=== PATIENT | female | born 1960 | race Caucasian/White ===

== ENCOUNTER 2018-05-04 19:17 | Outpatient (REF) | payer SELFPAY ==
[2018-05-09 04:50] LABS: 2-OH-Ethyl-Flurazepam Negative ng/mL (Cutoff: 100); 7-NH-Clonazepam Negative ng/mL (Cutoff: 100); 7-NH-Flunitrazepam Negative ng/mL (Cutoff: 50); Alpha OH-Alprazolam Negative ng/mL (Cutoff: 100); Alpha-OH-Triazolam Negative ng/mL (Cutoff: 100); Benzodiazepines Interpretation Negative.; Lorazepam Negative ng/mL (Cutoff: 100); Temazepam Negative ng/mL (Cutoff: 100)
[2018-05-09 13:39] LABS: Codeine Negative ng/mL (Cutoff: 25); Dihydrocodeine 190 ng/mL (Cutoff: 25); Hydrocodone 768 ng/mL (Cutoff: 25); Hydromorphone 38 ng/mL (Cutoff: 25); Morphine 6566 ng/mL (Cutoff: 25); Naloxone Negative ng/mL (Cutoff: 25); Norhydrocodone 520 ng/mL (Cutoff: 25); Noroxymorphone Negative ng/mL (Cutoff: 25); Opiates Interpretation Positive.
[2018-05-09 16:41] LABS: Benzoylecgonine 4313 ng/mL (Cutoff: 50); Cocaine Negative ng/mL (Cutoff: 50); Cocaine Interpretation Positive.
[2018-05-10 06:48] LABS: Amphetamine 577 ng/mL (Cutoff: 25); Amphetamines Interpretation Positive.; MDA (Ecstasy Metabolite) Negative ng/mL (Cutoff: 25); MDMA (Ecstasy) Negative ng/mL (Cutoff: 25); Methamphetamine Negative ng/mL (Cutoff: 25); Phentermine Negative ng/mL (Cutoff: 25); Pseudoephedrine/Ephedrine Present ng/mL (Cutoff: 25)
== END 2018-05-04 19:37 ==
LOC: NCHCN 19:17
PROVIDERS: PCP Nurse Practitioner Family; Visit Provider Nurse Practitioner Family
DX: F90.9 Attention-deficit hyperactivity disorder, unspecified type (principal); F15.20 Other stimulant dependence, uncomplicated; F11.20 Opioid dependence, uncomplicated
CPT/HCPCS: 80324; 80361; 80346; 80353

== ENCOUNTER 2019-03-12 17:54 | Outpatient (REF) | payer SELFPAY ==
[2019-03-12 21:19] LABS: Anion Gap 12.3 mmol/L (3-11); BUN 13 mg/dL (7-18); CO2 24.7 mmol/L (21.0-32.0); CREATININE 0.91 mg/dL (0.55-1.02); Calcium 9.3 mg/dL (8.5-10.1); Chloride 100 mmol/L (98-107); Glucose 103 mg/dL (70-100); Potassium 4.3 mmol/L (3.5-5.1); Sodium 137 mmol/L (136-145)
== END 2019-03-12 18:14 ==
LOC: NCHCN 17:54
PROVIDERS: PCP Nurse Practitioner Family; Visit Provider Nurse Practitioner Family
DX: I12.9 Hypertensive chronic kidney disease with stage 1 through stage 4 chronic kidney disease, or unspecified chronic kidney disease (principal)
CPT/HCPCS: 80048

== ENCOUNTER 2019-10-31 16:25 | Outpatient (REF) | payer SELFPAY ==
[2019-10-31 20:30] LABS: ALT 48 U/L (14-59); AST 29 U/L (15-37); Albumin 4.2 g/dL (3.4-5.0); Alkaline Phosphatase 91 U/L (46-116); Anion Gap 8.1 mmol/L (3-11); BUN 12 mg/dL (7-18); Bilirubin, Total 0.3 mg/dL (0.2-1.0); CO2 26.9 mmol/L (21.0-32.0); CREATININE 1.02 mg/dL (0.55-1.02); Calcium 9.5 mg/dL (8.5-10.1); Chloride 102 mmol/L (98-107); Estimated GFR 55.66 (mL/min/1.73m2); Glucose 122 mg/dL (74-106); HDL Cholesterol 42 mg/dL (40-60); LDL CHOLESTEROL 128 mg/dL (<100); Potassium 4.9 mmol/L (3.5-5.1); Sodium 137 mmol/L (136-145); Total Protein 7.7 g/dL (6.4-8.2)
[2019-11-01 15:30] LABS: Hemoglobin A1C 6.2 % (3.8-5.6)
== END 2019-10-31 16:45 ==
LOC: NCHCN 16:25
PROVIDERS: PCP Nurse Practitioner Family; Visit Provider Nurse Practitioner Family
DX: R73.03 Prediabetes (principal); Z79.899 Other long term (current) drug therapy
CPT/HCPCS: 80053; 83721; 83036; 83718

== ENCOUNTER 2020-12-16 15:31 | Outpatient (REF) | payer SELFPAY ==
[2020-12-16 19:35] LABS: HCT 37.5 % (36.0-46.0); HGB 12.4 g/dL (11.2-15.7); MCHC 33.1 % (32.0-36.0); MCV 96.9 fL (80-95); MPV 10.3 fL (8.0-11.0); Platelet Count 274 10^3/uL (130-400); RBC 3.87 10^6/uL (3.93-5.22); RDW-SD 46.3 fL; WBC 9.17 10^3/uL (4.4-10.8)
[2020-12-16 19:45] LABS: Anion Gap 10.6 mmol/L (3-11); BUN 9 mg/dL (7-18); CO2 25.4 mmol/L (21.0-32.0); CREATININE 0.9 mg/dL (0.55-1.02); Calcium 9.1 mg/dL (8.5-10.1); Chloride 105 mmol/L (98-107); Glucose 107 mg/dL (74-106); Potassium 4.7 mmol/L (3.5-5.1); Sodium 141 mmol/L (136-145)
[2020-12-16 19:53] LABS: Hemoglobin A1C 6.8 % (<5.7)
== END 2020-12-16 15:32 | disposition home or self-care (01) ==
LOC: NCHCN 15:31
PROVIDERS: PCP Nurse Practitioner Family; Visit Provider Nurse Practitioner Family
DX: Z51.81 Encounter for therapeutic drug level monitoring (principal)
CPT/HCPCS: 80048; 85027; 83036

== ENCOUNTER 2021-10-27 19:56 | Outpatient (REF) | payer SELFPAY ==
[2021-10-27 19:55] LABS: Anion Gap 5.9 mmol/L (3-11); BUN 12 mg/dL (7-18); CO2 28.1 mmol/L (21.0-32.0); CREATININE 0.9 mg/dL (0.55-1.02); Calcium 9.2 mg/dL (8.5-10.1); Chloride 102 mmol/L (98-107); Glucose 105 mg/dL (74-106); Potassium 5.2 mmol/L (3.5-5.1); Sodium 136 mmol/L (136-145)
== END 2021-10-27 19:57 | disposition home or self-care (01) ==
LOC: NCHCN 19:56
PROVIDERS: PCP Nurse Practitioner Family; Visit Provider Nurse Practitioner Family
DX: I10 Essential (primary) hypertension (principal); F41.1 Generalized anxiety disorder; F39 Unspecified mood [affective] disorder; R73.03 Prediabetes
CPT/HCPCS: 80048

== ENCOUNTER 2022-06-15 16:13 | Outpatient (REF) | payer SELFPAY ==
[2022-06-15 18:44] LABS: HCT 42.7 % (36.0-46.0); HGB 14.3 g/dL (11.2-15.7); MCH 32.2 pg (27.0-33.0); MCHC 33.5 % (32.0-36.0); MCV 96 fL (80-95); MPV 9.8 fL (8.0-11.0); Platelet Count 318 10^3/uL (130-400); RBC 4.44 10^6/uL (3.93-5.22); RDW 12.4 % (11.7-14.6); RDW-SD 44.9 fL; WBC 9.34 10^3/uL (4.4-10.8)
[2022-06-15 18:54] LABS: BUN 11 mg/dL (7-18); Calcium 9.4 mg/dL (8.5-10.1); Chloride 99 mmol/L (98-107); Estimated GFR 64.09 (mL/min/1.73m2); Glucose 125 mg/dL (74-106); Sodium 137 mmol/L (136-145)
[2022-06-18 18:24] LABS: Nortriptyline 77 ng/mL (70-170)
== END 2022-06-15 16:14 | disposition home or self-care (01) ==
LOC: NCHCN 16:13
PROVIDERS: PCP Nurse Practitioner Family; Visit Provider Nurse Practitioner Family
DX: I10 Essential (primary) hypertension (principal); F39 Unspecified mood [affective] disorder; G47.00 Insomnia, unspecified
CPT/HCPCS: 80048; 80335; 85027

== ENCOUNTER 2022-07-29 20:25 | Emergency (ER) | payer SELFPAY ==
[2022-07-29] VITALS (24 sets, daily range): BP systolic 121–182; BP diastolic 74–155; PULSE 68–79; RESP 12–26; TEMP 36.2; O2SAT 88–97
--- NOTE | 2022-07-29 20:30 | RT.EKG_ITS ---
APPROVED REPORT Exam: Resting ECG Reason for Exam: chest pain Patient Location: E HR:80 bpm ECG Measurements Heart Rate 80 AXIS OR 191 P 56 QRSd 115 QRS 91 QT 391 T 51 QTc 451 Conclusion Sinus rhythm...normal P axis, V-rate 60- 99 Nonspecific intraventricular conduction delay...QRSd >115mS, not LBBB/RBBB. Sinus. Normal axis. No STEMI. I have reviewed and interpreted ECG and agree with software generated interpretation.
--- NOTE | 2022-07-29 20:57 | ED.GENADUL_ITS ---
Discharge Plan Disposition Patient Disposition: Home Condition: Stable Discharge Details Clinical Impression: Back pain, Abdominal distension, Adnexal mass Primary Care Provider: Sailaja Ross ED Provider: Kayleigh Goldsmith Home Meds and New Rx's Prescriptions: New methocarbamol 500 mg tablet 500 mg PO Q6H PRN (Reason: muscle spasm) Qty: 14 0RF prednisone 20 mg tablet See Rx Instructions .ROUTE .COMPLEX Qty: 18 0RF Rx Instructions: Take 3 tabs daily for 3 days, then 2 tabs daily for 3 days, then 1 tab daily for 3 days. Continued cyclobenzaprine 10 MG tablet 10 mg PO HS quetiapine [Seroquel] 100 MG tablet 100 mg PO HS gabapentin 300 MG capsule 300 mg PO TID atenolol 50 MG tablet 75 mg PO DAILY levalbuterol tartrate [Xopenex HFA] 15 GM HFA aerosol inhaler See Rx Instructions .ROUTE .COMPLEX Rx Instructions: see above Discharge Instructions Instructions: Back Pain (ED) Additional Instructions: You were found to have a large 15 cm cyst-like mass within your abdomen. This could likely be the cause of your abdominal distention and chest tingling and also your back pain. An outpatient pelvic ultrasound has been ordered for further evaluation of this mass. Your information has been passed along to our butcher's assistant Dr. Mcpherson who will follow-up on the pelvic ultrasound and will be in contact with you regarding plan for follow-up with [facility] gynecology for further evaluation of this mass. Call the number listed on the order form for your pelvic ultrasound to schedule this test in the hospital radiology department. Drink plenty of fluids and get plenty of rest. Alternate tylenol and motrin as needed and directed for pain. Take the oxycodone for pain not relieved with Tylenol or Motrin. Prescriptions for steroids and muscle relaxers have been sent electronically to your pharmacy to take as directed. Follow-up with your primary care doctor in 1 week. Return to the emergency department with any worsening or new concerning symptoms. Discharge Data Discharge Physician: Kayleigh Goldsmith Medical Decision Making 61-year-old female with a history of obesity, hypertension, chronic neck pain and congenital absence of 1 kidney who presents for left-sided lower back pain with radiation to her left leg now with bilateral leg paresthesias, and also complaining of abdominal distention and chest tingling for the past few days. Patient is morbidly obese. She otherwise appears comfortable and in no acute distress. Her abdomen is significantly distended. Her back is normal to inspection but tender in the midline and left lumbar paraspinal region. She is neurovascularly intact. No focal deficits. Differential diagnosis includes sciatica, lumbar spinal stenosis, disc herniation. Also consider bowel or abd ominal pathology. History and presentation does not appear consistent with ACS, PE or dissection. Will obtain screening labs, CT chest abdomen and pelvis and give IV Decadron and p.o. Valium and reassess. Labs and imaging reviewed. Normal white blood cell count. Sodium 129. Magnesium 1.6, will replete. Troponin negative. FLUVID negative. Imaging reviewed and notes negative CT chest. CT abdomen and pelvis notes a 15 cm left adnexal cystic lesion with masslike mural nodules. CT imaging reviewed with Dr. Schneider and he sees no bowel pathology to account for her abdominal distention and states this may be related to the adnexal mass. Case discussed with Dr. Mcpherson who recommends outpatient pelvic ultrasound and will follow-up with patient tomorrow regarding plans for recommended follow-up with [facility] gynecology oncology. Patient feels comfortable with plan for home. Discussed that her back pain may be related to the adnexal mass causing referred pain. We will treat with s teroids and muscle relaxers. A prescription for prednisone and methocarbamol sent electronically to her pharmacy. An outpatient pelvic ultrasound order has been placed and patient informed that Dr. Mcpherson will follow up with her tomorrow. Patient also placed on care management list regarding this plan. Usual and customary return precautions given prior to discharge. Medical Records Medical records reviewed: Yes I reviewed the patient's medical records. Imaging Data Radiologic Study: Radiologist's impression: CT Chest With Contrast; Diagnostic Exam date and time: 07/29/2022 10:17 PM Age: 61 years old Clinical indication: Other: Abdominal bloating/chest pain/back pain; Other: R/O colitis, spinal stenosis, aneurysm TECHNIQUE: Imaging protocol: Diagnostic computed tomography of the chest with contrast. Contrast material: OMNIPAQUE 350; Contrast volume: 100 ml; Contrast route: INTRAVENOUS (IV);? COMPARISON: No relevant prior studies available. FINDINGS: Lungs: Unremarkable. No consolidation. No masses. Pleural spaces: Unremarkable. No pneumothorax. No pleural effusion. Heart: Unremarkable. No cardiomegaly. No pericardial effusion. Lymph nodes: Unremarkable. No enlarged lymph nodes. Vasculature: Unremarkable. No aortic aneurysm.? Bones/joints: Unremarkable. No acute fracture. Soft tissues: Unremarkable. IMPRESSION: No acute findings. CT Abdomen And Pelvis With Contrast Exam date and time: 07/29/2022 10:17 PM Age: 61 years old Clinical indication: Other: Abdominal bloating/chest pain/back pain; Other: R/O colitis, spinal stenosis, aneurysm TECHNIQUE: Imaging protocol: Computed tomography of the abdomen and pelvis with contrast. COMPARISON: No relevant prior studies available. FINDINGS: Liver: Normal. No mass. Gallbladder and bile ducts: Normal. No calcified stones. No ductal dilation. Pancreas: Normal. No ductal dilation. Spleen: Normal. No splenomegaly. Adrenal glands: Normal. No mass. Kidneys and ureters: Absence of the left kidney. No right hydronephrosis. Stomach and bowel: Unremarkable. No obstruction. No mucosal thickening. Appendix: No evidence of appendicitis. Intraperitoneal space: Unremarkable. No free air. No significant fluid collection. Vasculature: Unremarkable. No abdominal aortic aneurysm. Lymph nodes: Unremarkable. No enlarged lymph nodes. Urinary bladder: Unremarkable as visualized. Reproductive: 15 cm left adnexal cystic lesion with masslike mural nodules, sonogram or MR can be performed for further evaluation as clinically warranted. Status post hysterectomy. Bones/joints: Unremarkable. No acute fracture. Soft tissues: Unremarkable. IMPRESSION: 15 cm left adnexal cystic lesion with masslike mural nodules, sonogram or MR can be performed for further evaluation as clinically warranted. Lab Data Lab results reviewed: Yes I reviewed the patient's lab results. Labs: Laboratory Tests Range/Units 07/29/22 07/29/22 07/29/22 21:00 21:01 21:01 WBC (4.4-10.8) 10^3/uL 8.61 RBC (3.93-5.22) 10^6/uL 4.15 Hgb (11.2-15.7) g/dL 13.2 Hct (36.0-46.0) % 38.5 MCV (80-95) fL 93 MCH (27.0-33.0) pg 31.8 MCHC (32.0-36.0) % 34.3 RDW (11.7-14.6) % 12.3 Plt Count (130-400) 10^3/uL 284 MPV (8.0-11.0) fL 9.4 Immature Gran % 0.3 Neutrophils % 54.8 Lymphocytes % 36.1 Monocytes % 6.6 Eosinophils % 2.0 Basophils % 0.2 Nucleated RBC % (0.0-0.3) % 0.0 Absolute Neutrophils (1.2-6.7) 10^3/uL 4.71 Absolute Lymphocytes (1.2-3.4) 10^3/uL 3.11 Absolute Monocytes (0.1-0.8) 10^3/uL 0.57 Absolute Eosinophils (0.0-0.7) 10^3/uL 0.17 Absolute Basophils (0.0-0.2) 10^3/uL 0.02 Sodium (136-145) mmol/L 129 L Potassium (3.5-5.1) mmol/L 3.6 Chloride (98-107) mmol/L 95 L Carbon Dioxide (21.0-32.0) mmol/L 25.5 Anion Gap (3-11) mmol/L 8.5 BUN (7-18) mg/dL 12 Creatinine (0.55-1.02) mg/dL 1.0 Est GFR (CKD-EPI 2020) (mL/min/1.73m2) 64.09 Glucose (74-106) mg/dL 108 H Calcium (8.5-10.1) mg/dL 9.3 Magnesium (1.8-2.4) mg/dL 1.6 L Total Bilirubin (0.2-1.0) mg/dL 0.3 AST (15-37) U/L 30 ALT (14-59) U/L 48 Alkaline Phosphatase (46-116) U/L 83 Troponin I (<or=60) ng/L < 50 Total Protein (6.4-8.2) g/dL 7.7 Albumin (3.4-5.0) g/dL 4.1 Lipase (16-77) U/L 10 L COVID-19 Source Nasopharynx SARS-CoV-2 (PCR) (Negative) Negative Influenza Type A (PCR) (Negative) Negative Influenza Type B (PCR) (Negative) Negative RSV (PCR) (Negative) Negative ECG Data Attestation: I personally reviewed and interpreted this ECG (s) as follows: Interpretation: rate of 80, sinus, normal axis, no stemi. HPI General Mode of arrival: ambulatory . Date/Time Provider Initiated Documentation: 07/29/22 20:26 . Limitations to Documentation: no limitations . Information obtained by: patient . HPI Narrative: Patient is a 61-year-old female with a history of obesity, hypertension, chronic neck pain who presents for 2 weeks of lower back pain, worse on the left side with radiation down her left leg now with tingling in both legs for the past few days in addition to abdominal bloating and tingling in chest for the past few days. Patient states she saw her primary care doctor recently for her back pain and diagnosed with a pinched nerve and was given a dose of Toradol and placed on steroids. Patient states she took 1 dose of steroids and felt that her back and leg pain was getting worse so she stopped it. Patient states her pain is worse with walking and bending over. She denies any bowel or bladder incontinence, saddle anesthesia. Patient states the past 2 days she has felt abdominal bloating which she feels is causing pressure in her chest causing tingling in her lower chest and under her breast. She states she has had intermittent loose stools over the past few weeks. She denies any rectal bleeding, fever, nausea, vomiting or difficulty breathing. Related Data Home Medications Medication Instructions Recorded Confirmed atenolol 50 mg tablet 75 mg PO DAILY 11/20/13 07/29/22 cyclobenzaprine 10 mg tablet 10 mg PO HS 11/20/13 07/29/22 gabapentin 300 mg capsule 300 mg PO TID 11/20/13 07/29/22 levalbuterol tartrate 45 See Rx Instructions .Route .COMPLEX 11/20/13 07/29/22 mcg/actuation aerosol inhaler (Xopenex HFA) quetiapine 100 mg tablet (Seroquel) 100 mg PO HS 11/20/13 07/29/22 methocarbamol 500 mg tablet 500 mg PO Q6H PRN muscle spasm #14 07/30/22 tabs prednisone 20 mg tablet See Rx Instructions .Route 07/30/22 .COMPLEX #18 tabs Previous Rx's Medication Instructions Recorded methocarbamol 500 mg tablet 500 mg PO Q6H PRN muscle spasm #14 07/30/22 tabs prednisone 20 mg tablet See Rx Instructions .Route 07/30/22 .COMPLEX #18 tabs Allergies Allergy/AdvReac Type Severity Reaction Status Date / Time sertraline HCl [From Zoloft] Allergy Intermediate Nausea Unverified 07/29/22 20:46 General Stated Complaint: GenMedical MANJU: 3 Review of Systems All systems reviewed & are unremarkable except as noted in HPI and below Constitutional Constitutional: Reports as per HPI, Denies chills and Denies fever(s) Eyes Eyes: Denies blurry vision ENT Ears, Nose, Mouth, and Throat: Denies dizziness, Denies sore throat and Denies throat swelling Cardiovascular Cardiovascular: Denies chest pain and Denies dyspnea Respiratory Respiratory: Denies cough and Denies dyspnea Gastrointestinal Gastrointestinal: Denies abdominal pain, Denies diarrhea and Denies vomiting Genitourinary Genitourinary: Denies hematuria and Denies dysuria Musculoskeletal Musculoskeletal: Denies back pain and Denies numbness Integumentary/Breasts Skin/Breast: Denies lesions and Denies rash Neurologic Neurologic: Denies dizziness, Denies localized weakness and Denies numbness Allergic/Immunologic Allergic/Immunologic: Denies throat swelling PFSH All Active Problems (Updated 07/30/22 @ 00:52 by Kayleigh Goldsmith DO) Back pain (Acute) Abdominal distension (Acute) Adnexal mass (Acute) Medical History (Updated 07/30/22 @ 00:52 by Kayleigh Goldsmith DO) Chronic neck pain Congenital absence of one kidney HTN (hypertension) Morbid obesity Surgical History (Updated 07/29/22 @ 21:36 by Kayleigh Goldsmith DO) H/O bilateral breast reduction surgery H/O section History of hysterectomy Social History Smoking/Tobacco Use Status: Current every day Tobacco Type: cigarettes Smoking risk assessment performed?: Yes Alcohol Intake: never Drug use: Daily Substance use type: marijuana Exam Const General: cooperative and no acute distress Nutritional Appearance: obese morbidly obese Orientation: alert, awake and oriented x3 HENMT Head: normal to inspection Face and sinus: normal facial exam Eyes General: appearance normal, both eyes and all related structures Pupils: PERRL EOM: EOM intact bilaterally Neck Neck: normal visual inspection and No submandibular swelling Lymphatic: no lymphadenopathy noted Chest Chest: normal inspection of the chest and no tenderness Resp Effort & Inspection: normal respiratory effort and able to speak in complete sentences Auscultation: clear to auscultation bilaterally Cardio Rate: regular rate Rhythm: regular rhythm GI Inspection: distended (severe throughout) Palpation: soft, not firm, not rigid and tender (throughout) Auscultation: hypoactive bowel sounds Back/Spine/Pelvis Thoracic/Lumbar Spine: thoracic and lumbar spine normal to inspection, paraspinal tenderness (b/l lumbar paraspinal ) and lumbar spinal tenderness Skin General skin exam: no rashes or lesions noted Neuro General: patient alert, patient awake and patient oriented x3 Cognition: normal cognition Speech: speech normal Motor: muscle tone normal throughout and strength 5/5 throughout Sensory Exam: no sensory deficits noted DTR's: Rt Patellar: 1+, Lt Patellar: 1+, Rt Ankle: 1+ and Lt Ankle: 1+ Plantar Reflexes: Equivocal: bilateral (Negative babinski b/l ) Extrem General: normal to inspection, full ROM, capillary refill normal, no calf tenderness bilaterally and no edema Psych Appearance: grossly normal Mental Status: mental status grossly normal Speech and Movement: speech and movement normal Affect: normal affect Course Vital Signs Vital signs: Vital Signs Temperature 97.2 F L 07/29/22 20:39 Pulse 79 07/29/22 20:39 Respiratory Rate 16 07/29/22 20:39 Blood Pressure 121/96 H 07/29/22 20:39 Pulse Oximetry 95 07/29/22 20:39 Temperature 97.2 F L 07/29/22 20:39 Temperature Source Temporal Artery Scan 07/29/22 20:39 Pulse 79 07/29/22 20:39 Respiratory Rate 16 07/29/22 20:39 Respiratory Effort Normal 07/29/22 20:39 Blood Pressure 121/96 H 07/29/22 20:39 Blood Pressure Position Sitting 07/29/22 20:39 Pulse Oximetry 95 07/29/22 20:39 Oxygen Delivery Method Room Air 07/29/22 20:39 Oxygen Flow Rate 0 07/29/22 20:39 Pain Level 8 07/29/22 20:39
[2022-07-29 21:09] LABS: Abs Immature Grans 0.03 10^3/uL (0.0-0.06); Absolute Basophil Count 0.02 10^3/uL (0.0-0.2); Absolute Eosinophil Count 0.17 10^3/uL (0.0-0.7); Absolute Lymphocyte Count 3.11 10^3/uL (1.2-3.4); Absolute Monocyte Count 0.57 10^3/uL (0.1-0.8); Absolute Neutrophil Count 4.71 10^3/uL (1.2-6.7); Basophils % 0.2; HCT 38.5 % (36.0-46.0); HGB 13.2 g/dL (11.2-15.7); Immature Grans % 0.3; Lymphocytes % 36.1; MCH 31.8 pg (27.0-33.0); MCHC 34.3 % (32.0-36.0); MCV 93 fL (80-95); MPV 9.4 fL (8.0-11.0); Monocytes % 6.6; Neutrophils % 54.8; Platelet Count 284 10^3/uL (130-400); RBC 4.15 10^6/uL (3.93-5.22); RDW 12.3 % (11.7-14.6); RDW-SD 42.4 fL; WBC 8.61 10^3/uL (4.4-10.8)
[2022-07-29 21:27] LABS: ALT 48 U/L (14-59); AST 30 U/L (15-37); Albumin 4.1 g/dL (3.4-5.0); Alkaline Phosphatase 83 U/L (46-116); Anion Gap 8.5 mmol/L (3-11); BUN 12 mg/dL (7-18); Bilirubin, Total 0.3 mg/dL (0.2-1.0); CO2 25.5 mmol/L (21.0-32.0); Calcium 9.3 mg/dL (8.5-10.1); Chloride 95 mmol/L (98-107); Estimated GFR 64.09 (mL/min/1.73m2); Glucose 108 mg/dL (74-106); Lipase 10 U/L (16-77); Magnesium 1.6 mg/dL (1.8-2.4); Potassium 3.6 mmol/L (3.5-5.1); Sodium 129 mmol/L (136-145); Total Protein 7.7 g/dL (6.4-8.2); Troponin I < 50 ng/L (<or=60)
--- NOTE | 2022-07-29 21:30 | DI.CT_ITS ---
Exam(s) CT CHEST/ABD/PEL W CT THORACIC LUMBAR SPINE REC EXAM: CT CHEST/ABD/PEL W CLINICAL HISTORY: abdominal bloating/chest pain/back pain. TECHNIQUE: Imaging Protocol: Axial computed tomography images with coronal and sagittal reformatted images were created and reviewed CONTRAST MATERIAL: Intravenous: Omnipaque 350 Contrast volume:100 ml Oral: / no COMPARISON: US ABDOMEN ULTRASOUND (P) from 09/09/[address] THORACIC LUMBAR SPINE REC from 07/29/2022 FINDINGS: CHEST: Tracheobronchial tree: Patent where visualized. Pulmonary parenchyma: No consolidation or dominant measurable mass. Pleura: No effusion or pneumothorax. Lymph nodes: Within normal limits. Aorta: Thoracic portion non-dilated. Heart: Normal size. No pericardial effusion. Bones: Prominent endplate osteophytes. No central canal stenosis. No lytic or blastic lesions.No co mpression fractures. ABDOMEN: Liver: Fatty infiltration. No measurable mass. Gallbladder and biliary tract: No radiodense calculus or dilation. Pancreas: Normal density, no abnormal calcifications or inflammatory process. Spleen: Normal. Kidneys: Left kidney absent. Right kidney shows some compensatory hypertrophy no radiodense stones o r obstructive uropathy. No suspicious masses seen. Adrenal glands: No masses seen. Aorta: Abdominal portion non-dilated. Lymph nodes: Within normal limits. Soft tissues: Unremarkable. PELVIS: Bladder: Symmetric distention, no gross wall thickening. Bowel: No obstruction or bowel wall thickening. Peritoneal cavity: No ascites, collection or mesenteric inflammatory response. Bones: Degenerative changes in the hips and spine. No compression fracture, lytic or blastic lesions . Disc bulging eccentric toward the left at L5-S1. Minimal bulging at other levels. No significant central canal stenosis. Reproductive organs: Status post hysterectomy. Large, 15 cm diameter mainly cystic mass with areas o f mural nodularity suspicious for left ovarian malignancy. Areas of mural nodularity are the largest anteriorly measuring nearly 4 cm. IMPRESSION: No acute abnormality in the chest, thoracic or lumbar spine. . 15 centimeter cystic left ovarian mass with areas of mural nodularity. F[employer] surgical consultation rec ommended. No evidence of adenopathy or metastatic disease. RADIATION DOSE DELIVERED: 1842.04 mGy.cm Total DLP DATA REPOSITORY: All CT scans at this facility are submitted to the National Radiology Data Registry (NRDR) Dose Index Registry (DIR) with the [employer] (A[employer]). RADIATION OPTIMIZATION: All CT scans at this facility use at least one of these dose optimization te chniques: automated exposure control; mA and/or kV adjustment per patient size (includes targeted exa ms where dose is matched to clinical indication); or iterative reconstruction.
[2022-07-29 21:41] LABS: COVID-19 PCR Negative (Negative); Influenza A PCR Negative (Negative); Influenza B PCR Negative (Negative); RSV PCR Negative (Negative)
[2022-07-29] MEDS: diazePAM 5 MG TAB PO (21:46)
[2022-07-29] MEDS: Dexamethasone 10 MG/ML VIAL IVP (21:46)
[2022-07-29] MEDS: MAGNESIUM SULFATE 2 GM/50 ML BAG IVPB (21:47)
[2022-07-29] MEDS: Normal Saline 1,000 ML 1000 ML IV (21:48)
[2022-07-29 21:55] LABS: Source Nasopharynx
--- NOTE | 2022-07-29 22:13 | NUR.NOTE ---
Nursing Note: Pt IV fluids stopped for the pt to go to CT family at bedside
[2022-07-29] MEDS: Normal Saline - Diluent 50 ML VIAL IJ (22:17)
[2022-07-29] MEDS: Omnipaque 350 MG/ML 100 ML BTL IJ (22:18)
[2022-07-29] MEDS: Normal Saline Flush 10 ML SYR IVP (22:18)
--- NOTE | 2022-07-29 22:32 | NUR.NOTE ---
Nursing Note: Returned from CT, IV fluids connected
--- NOTE | 2022-07-29 22:47 | DI.VRAD_ITS ---
PROCEDURE INFORMATION: Exam: CT Chest With Contrast; Diagnostic Exam date and time: 07/29/2022 10:17 PM Age: 61 years old Clinical indication: Other: Abdominal bloating/chest pain/back pain; Other: R/O colitis, spinal stenosis, aneurysm TECHNIQUE: Imaging protocol: Diagnostic computed tomography of the chest with contrast. Contrast material: OMNIPAQUE 350; Contrast volume: 100 ml; Contrast route: INTRAVENOUS (IV); COMPARISON: No relevant prior studies available. FINDINGS: Lungs: Unremarkable. No consolidation. No masses. Pleural spaces: Unremarkable. No pneumothorax. No pleural effusion. Heart: Unremarkable. No cardiomegaly. No pericardial effusion. Lymph nodes: Unremarkable. No enlarged lymph nodes. Vasculature: Unremarkable. No aortic aneurysm. Bones/joints: Unremarkable. No acute fracture. Soft tissues: Unremarkable. IMPRESSION: No acute findings. PROCEDURE INFORMATION: Exam: CT Abdomen And Pelvis With Contrast Exam date and time: 07/29/2022 10:17 PM Age: 61 years old Clinical indication: Other: Abdominal bloating/chest pain/back pain; Other: R/O colitis, spinal stenosis, aneurysm TECHNIQUE: Imaging protocol: Computed tomography of the abdomen and pelvis with contrast. COMPARISON: No relevant prior studies available. FINDINGS: Liver: Normal. No mass. Gallbladder and bile ducts: Normal. No calcified stones. No ductal dilation. Pancreas: Normal. No ductal dilation. Spleen: Normal. No splenomegaly. Adrenal glands: Normal. No mass. Kidneys and ureters: Absence of the left kidney. No right hydronephrosis. Stomach and bowel: Unremarkable. No obstruction. No mucosal thickening. Appendix: No evidence of appendicitis. Intraperitoneal space: Unremarkable. No free air. No significant fluid collection. Vasculature: Unremarkable. No abdominal aortic aneurysm. Lymph nodes: Unremarkable. No enlarged lymph nodes. Urinary bladder: Unremarkable as visualized. Reproductive: 15 cm left adnexal cystic lesion with masslike mural nodules, sonogram or MR can be performed for further evaluation as clinically warranted. Status post hysterectomy. Bones/joints: Unremarkable. No acute fracture. Soft tissues: Unremarkable. IMPRESSION: 15 cm left adnexal cystic lesion with masslike mural nodules, sonogram or MR can be performed for further evaluation as clinically warranted. Dictated and Authenticated by: Leopoldo Byrd MD. Ordering:NEAL Victor MD
--- NOTE | 2022-07-29 22:48 | DI.VRAD_ITS ---
PROCEDURE INFORMATION: Exam: CT Thoracic Spine Without Contrast Exam date and time: 07/29/2022 10:17 PM Age: 61 years old Clinical indication: Other: Lower back pain/b/l leg pain/numbness TECHNIQUE: Imaging protocol: Computed tomography of the thoracic spine without contrast. COMPARISON: No relevant prior studies available. FINDINGS: Bones/joints: No acute fracture. Normal alignment. Multilevel disc osteophytes. IMPRESSION: No acute finding.. PROCEDURE INFORMATION: Exam: CT Lumbar Spine Without Contrast Exam date and time: 07/29/2022 10:17 PM Age: 61 years old Clinical indication: Other: Lower back pain/b/l leg pain/numbness TECHNIQUE: Imaging protocol: Computed tomography of the lumbar spine without contrast. COMPARISON: No relevant prior studies available. FINDINGS: Bones/joints: No acute fracture. Normal alignment. Multilevel degenerative disk disease and facet arthropathy with neuroforaminal and canal stenosis.. Soft tissues: Partially visualized complex cystic lesion of the left adnexa. IMPRESSION: 1. No acute finding. 2. Partially visualized complex cystic lesion left adnexa, recommend sonogram or MR for further evaluation. Dictated and Authenticated by: Leopoldo Byrd MD. Ordering:NEAL Victor MD
--- NOTE | 2022-07-29 23:29 | NUR.NOTE ---
Referral sent to DI for Pelvic Ultrasound reason abdominal distension 15cm adnexal mass on CT needs further assessment with ultrasound.
[2022-07-30] VITALS (9 sets, daily range): BP systolic 158–176; BP diastolic 74–85; PULSE 69–85; RESP 12–22; O2SAT 91–98
[2022-07-30] MEDS: oxyCODONE 5 MG TAB PO (00:26)
[2022-08-02 09:24] LABS: CA 125 23 U/mL (<30)
[2022-08-02 09:28] LABS: CA 19-9 8 U/mL (<35)
[2022-08-02 11:11] LABS: CEA 1.8 ng/mL (See Note)
== END 2022-07-30 01:26 | disposition home or self-care (01) ==
PROVIDERS: Emergency Provider Physician Assistant; PCP Nurse Practitioner Family
DX: N83.8 Other noninflammatory disorders of ovary, fallopian tube and broad ligament; M54.50 Low back pain, unspecified; R14.0 Abdominal distension (gaseous); M79.605 Pain in left leg; R20.2 Paresthesia of skin; I10 Essential (primary) hypertension; E66.01 Morbid (severe) obesity due to excess calories; Z20.822 Contact with and (suspected) exposure to COVID-19
CPT/HCPCS: 74177; 80053; 83690; 86304; 87637; 93005; 96361; 96374; 99285; 71260; 82378; 83735; 84484; 85025; 86301; 93010; J1100; J3490

== ENCOUNTER 2022-08-19 17:54 | Outpatient (REF) | payer SELFPAY | END 2022-08-19 17:55 | disposition home or self-care (01) | LOC: NCHCN 17:54 | PROVIDERS: PCP Nurse Practitioner Family; Visit Provider Nurse Practitioner Family | DX: T81.41XA Infection following a procedure, superficial incisional surgical site, initial encounter (principal); L08.89 Other specified local infections of the skin and subcutaneous tissue | CPT/HCPCS: 87077; 87070; 87186; 87205 ==

== ENCOUNTER 2022-09-09 14:23 | Outpatient (REF) | payer SELFPAY ==
[2022-09-09 15:16] LABS: ESR 18 mm/hr (0-30)
[2022-09-09 15:56] LABS: Anion Gap 7.1 mmol/L (3-11); BUN 10 mg/dL (7-18); CO2 27.9 mmol/L (21.0-32.0); Calcium 9.6 mg/dL (8.5-10.1); Chloride 100 mmol/L (98-107); Estimated GFR 64.09 (mL/min/1.73m2); Glucose 133 mg/dL (74-106); Potassium 5.1 mmol/L (3.5-5.1); Sodium 135 mmol/L (136-145)
== END 2022-09-09 14:24 | disposition home or self-care (01) ==
LOC: NCHCN 14:23
PROVIDERS: PCP Nurse Practitioner Family; Visit Provider Nurse Practitioner Family
DX: K52.9 Noninfective gastroenteritis and colitis, unspecified (principal); M51.16 Intervertebral disc disorders with radiculopathy, lumbar region
CPT/HCPCS: 80048; 85652

== ENCOUNTER 2022-09-25 07:11 | Emergency (ER) | payer SELFPAY ==
[2022-09-25] VITALS (75 sets, daily range): BP systolic 129–178; BP diastolic 71–140; PULSE 84–108; RESP 11–33; TEMP 36.4; O2SAT 91–98
--- NOTE | 2022-09-25 07:00 | RT.EKG_ITS ---
APPROVED REPORT Exam: Resting ECG Reason for Exam: Bilat weakness Patient Location: E HR:92 bpm ECG Measurements Heart Rate 92 AXIS SC 198 P 55 QRSd 118 QRS 85 QT 386 T 57 QTc 478 Conclusion Sinus rhythm...normal P axis, V-rate 60- 99 Nonspecific intraventricular conduction delay...QRSd >115mS, not LBBB/RBBB Nonspecific T abnormalities, anterior leads...T <-0.10mV, V2-V4. Sinus. Normal axis. No acute ischemic findings. I have reviewed and interpreted ECG and agree with software generated interpretation.
--- NOTE | 2022-09-25 07:15 | DI.CT_ITS ---
Exam(s) CT LUMBAR SPINE RECONS CT ABDOMEN PELVIS WO EXAM: CT ABDOMEN PELVIS WO CLINICAL HISTORY: left leg weakness, r/o mass. TECHNIQUE: Imaging Protocol: Axial computed tomography images with coronal and sagittal reformatted images were created and reviewed. Oral: no COMPARISON: CT CT CHEST/ABD/PEL W from 07/29/[address] THORACIC LUMBAR SPINE REC from 07/29/[address] BRAIN NECK CTA from 09/25/[address] LUMBAR SPINE RECONS from 09/25/2022 FINDINGS: ABDOMEN: Lung Bases: Normal where visualized. Liver: Enlarged fatty liver. No measurable mass. Gallbladder and biliary tract: No radiodense calculus or dilation. Pancreas: Normal density, no abnormal calcifications or inflammatory process. Spleen: Normal. Kidneys: Single right kidney which shows compensatory hypertrophy.. No radiodense stones or obstruct kylah uropathy. No masses seen. Adrenal glands: No masses seen. Lymph nodes: Within normal limits. Abdominal Aorta: Abdominal portion non-dilated. PELVIS: Bladder: Fournier catheter in place. Mildly distended with contrast and urine Bowel: No obstruction or bowel wall thickening. Normal quantity of stool. Appendix normal. Peritoneal cavity: No ascites, collection or mesenteric inflammatory response. Reproductive organs: Patient is status post hysterectomy. The mass noted on prior exam has been rese cted. There is no evidence a new mass, fluid fluid collection or abscess. Bones: Degenerative changes of the hips. Soft tissues: Midline surgical scar is unremarkable. CT OF THE LUMBAR SPINE: Fracture lines noted within the T12 vertebral body with compression of approx imately 50 percent. The entire vertebral body is involved. There is retropulsion of 4 millimeters i nto the central canal. This narrows the central canal to 8 millimeters. This is new when compared w ith the previous exam. No additional fractures are seen. There are endplate osteophytes and disc bu lging. IMPRESSION: Interval resection of previously noted pelvic mass. No acute abnormality in the abdomen or pelvis. Lumbar spine CT: L2 compression fracture with retropulsion and narrowing of the AP dimension of the c entral canal, new compared with prior exam. RADIATION DOSE DELIVERED: 1256.56 mGy.cm Total DLP DATA REPOSITORY: All CT scans at this facility are submitted to the National Radiology Data Registry (NRDR) Dose Index Registry (DIR) with the [employer] (A[employer]). RADIATION OPTIMIZATION: All CT scans at this facility use at least one of these dose optimization te chniques: automated exposure control; mA and/or kV adjustment per patient size (includes targeted exa ms where dose is matched to clinical indication); or iterative reconstruction.
--- NOTE | 2022-09-25 07:15 | DI.CT_ITS ---
Exam(s) CT BRAIN NECK CTA EXAM: CT BRAIN NECK CTA CLINICAL HISTORY: left leg weakness, r/o stroke. TECHNIQUE: Imaging Protocol: Axial CT angiography was performed with multi-slice acquisition and mu lti-planar and 3D reconstructions. CONTRAST MATERIAL: Intravenous: Omnipaque 350 Contrast volume:structured data in ml COMPARISON: None FINDINGS: CT Head W/O and W contrast: Ventricles and Extra axial spaces: Normal in size and morphology for the patient's age. Hemorrhage: None. Cerebral parenchyma: Normal. Midline shift: None. Brainstem/Cerebellum: Normal. Calvarium: Normal. Visualized Paranasal sinuses/Mastoids: Clear. Soft Tissues: Unremarkable. Enhancement: Normal. CTA Brain W: Internal Carotid Arteries: Petrous: Normal. Cavernous: Normal. Cerebral: Normal. Middle Cerebral Arteries: Right: No aneurysm, occlusion or significant stenosis. Left: No aneurysm, occlusion or significant stenosis. 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 No aneurysm, occlusion or significant stenosis. Left: No aneurysm, occlusion or significant stenosis. Posterior cerebral Arteries: Right: No aneurysm, occlusion or significant stenosis. Left: No aneurysm, occlusion or significant stenosis. Vertebral Arteries: Right: No aneurysm, occlusion or significant stenosis. Left: No aneurysm, occlusion or significant stenosis. Basilar Artery: No aneurysm, occlusion or significant stenosis. CTA Neck W: Common Carotid: Right: No dissection, occlusion or significant stenosis. Left: No dissection, occlusion or significant stenosis. External Carotid: Right: No dissection, occlusion or significant stenosis. Left: No dissection, occlusion or significant stenosis. Internal Carotid: Right: No visible plaque. No dissection, occlusion or significant stenosis. Left: No visible plaque. No dissection, occlusion or significant stenosis. Vertebral Artery: Right: No dissection, occlusion or significant stenosis. Left: No dissection, occlusion or significant stenosis. Lung Apices: Normal. Bones: No acute abnormality. Degenerative changes in the spine. Soft Tissues: Normal. IMPRESSION: 1. CTA examination of the [place] within normal limits of variation. Hypoplastic right A1 s egment.. 2. Unremarkable CT Head. 3. Normal CTA examination of the neck. RADIATION DOSE DELIVERED: 2,111.58mGy.cm Total DLP DATA REPOSITORY: All CT scans at this facility are submitted to the National Radiology Data Registry (NRDR) Dose Index Registry (DIR) with the [employer] (ACR). RADIATION OPTIMIZATION: All CT scans at this facility use at least one of these dose optimization te chniques: automated exposure control; mA and/or kV adjustment per patient size (includes targeted exa ms where dose is matched to clinical indication); or iterative reconstruction.
--- NOTE | 2022-09-25 07:21 | ED.GENADUL_ITS ---
Discharge Plan Discharge Details Chief Complaint: Gen[facility] Primary Care Provider: Sailaja Ross ED Provider: Dylan Truong Home Meds and New Rx's Prescriptions: No Action cyclobenzaprine 10 MG tablet 10 mg PO HS quetiapine [Seroquel] 100 MG tablet 100 mg PO HS gabapentin 300 MG capsule 300 mg PO TID atenolol 50 MG tablet 75 mg PO DAILY levalbuterol tartrate [Xopenex HFA] 15 GM HFA aerosol inhaler See Rx Instructions .ROUTE .COMPLEX Rx Instructions: see above methocarbamol 500 mg tablet 500 mg PO Q6H PRN (Reason: muscle spasm) Qty: 14 0RF prednisone 20 mg tablet See Rx Instructions .ROUTE .COMPLEX Qty: 18 0RF Rx Instructions: Take 3 tabs daily for 3 days, then 2 tabs daily for 3 days, then 1 tab daily for 3 days. Medical Decision Making This is a pleasant 61-year-old female with past medical history of hypertension, previous hysterectomy, lumbar radiculopathy and partial disc herniation, left ovarian mass which was surgically removed on 08/02/2022, who presents today for evaluation of left leg weakness. Patient states that she went to bed last night at 11 PM and everything was functionally at baseline. She woke up at around 6 AM and noticed that she could not move her left lower extremity. She fell out of her chair because of this. She did not strike her head or lose consciousness. 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 She denies any prior falls. She does have chronic tingling on the anterior and lateral aspects of her thighs, but denies any new numbness or tingling. She contacted EMS and she was brought to the ER for further assessment. She denies any chest pain, new back pain, or shortness of breath. She denies any headache or vision changes. She denies any history of stroke. No other complaints at this time. No other modifying factors. She denies any bowel or bladder incontinence prior to today/this morning. EOMI, PERRL, Peripheral vision intact. No nystagmus. No external signs of preseptal cellulitis, no redness around the eye, no proptosis. No hyphema, no signs of trauma around the eye, no periorbital emphysema. Demonstrates minimal almost imperceptible microbiology lab technician strength weakness on the left compared to the right. Left lower extremity demonstrates inability to flex or extend at the hip, or the knee. Minimal strength with plantar and dorsiflexion of the foot. No other significant abnormalities. Patient demonstrates good rectal tone, good perirectal sensation, good saddle sensation. Differential is certainly concerning for stroke, however it is slightly unique to have the localized symptoms in the left lower extremity. Patient is out of the window for tPA at this time as her last known well was 11 PM. Additionally I am concerned for potential spinal issue. She has no new pain in the spine, no saddle anesthesia and she has good rectal tone however she is complaining of wanting to urinate and bedside bladder scan was performed and demonstrates that she is retaining around 500 cc. She is unable to pee otherwise here. Differential includes atypical spinal cord compression, as well as previously discussed stroke. We will get a CT scan of the lumbar spine, CT/CTA of the head. No MRI is currently available here. We will reach out to [facility] pending imaging. Patient will be signed out to my colleague Dr. Goldsmith for follow-up on labs and imaging. HPI General Date/Time Provider Initiated Documentation: 09/25/22 07:21 . HPI Narrative: This is a pleasant 61-year-old female with past medical history of hypertension, previous hysterectomy, lumbar radiculopathy and partial disc herniation, left ovarian mass which was surgically removed on 08/02/2022, who presents today for evaluation of left leg weakness. Patient states that she went to bed last night at 11 PM and everything was functionally at baseline. She woke up at around 6 AM and noticed that she could not move her left lower extremity. She fell out of her chair because of this. She did not strike her head or lose consciousness. 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 She denies any prior falls. She does have chronic tingling on the anterior and lateral aspects of her thighs, but denies any new numbness or tingling. She contacted EMS and she was brought to the ER for further assessment. She denies any chest pain, new back pain, or shortness of breath. She denies any headache or vision changes. She denies any history of stroke. No other complaints at this time. No other modifying factors. She denies any bowel or bladder incontinence prior to today/this morning. Related Data Home Medications Medication Instructions Recorded Confirmed atenolol 50 mg tablet 75 mg PO DAILY 11/20/13 07/29/22 cyclobenzaprine 10 mg tablet 10 mg PO HS 11/20/13 07/29/22 gabapentin 300 mg capsule 300 mg PO TID 11/20/13 07/29/22 levalbuterol tartrate 45 See Rx Instructions .Route .COMPLEX 11/20/13 07/29/22 mcg/actuation aerosol inhaler (Xopenex HFA) quetiapine 100 mg tablet (Seroquel) 100 mg PO HS 11/20/13 07/29/22 methocarbamol 500 mg tablet 500 mg PO Q6H PRN muscle spasm #14 07/30/22 tabs prednisone 20 mg tablet See Rx Instructions .Route 07/30/22 .COMPLEX #18 tabs Previous Rx's Medication Instructions Recorded methocarbamol 500 mg tablet 500 mg PO Q6H PRN muscle spasm #14 07/30/22 tabs prednisone 20 mg tablet See Rx Instructions .Route 07/30/22 .COMPLEX #18 tabs Allergies Allergy/AdvReac Type Severity Reaction Status Date / Time sertraline HCl [From Zoloft] Allergy Intermediate Nausea Unverified 07/29/22 20:46 General Stated Complaint: GenMedical MANJU: 3 Review of Systems All systems reviewed & are unremarkable except as noted in HPI and below PFSH Medical History Chronic neck pain Congenital absence of one kidney HTN (hypertension) Morbid obesity Surgical History H/O bilateral breast reduction surgery H/O section History of hysterectomy Social History Smoking/Tobacco Use Status: Current every day Tobacco Type: cigarettes Smoking risk assessment performed?: Yes Alcohol Intake: never Drug use: Daily Substance use type: marijuana Exam Narrative Exam Narrative: 1.Const: Well-nourished, Well-developed, appearing stated age 2.Eyes: PERRL, no conjunctival injection, and symmetrical lids. 3.ENT: Atraumatic external nose and ears. Moist MM. Neck: Symmetric, trachea midline, No thyromegaly. 4.CVS: +S1/S2, No murmurs or gallops. Peripheral pulses 2+ and equal in all extremities. Brisk capillary refill in all extremities. 5.RESP: Unlabored respiratory effort. Clear to auscultation bilaterally. No wheezes rales or rhonchi 6.GI: Soft, Nontender/Nondistended, No hepatosplenomegaly. No guarding or rebound. Postoperative surgical site appears clean dry and intact with excellent healing. 7.MSK: Normocephalic/Atraumatic, Extremities w/o deformity or ttp No cyanosis or clubbing, right leg demonstrates normal movement and strength. Left leg demonstrates complete inability to flex or extend the knee, complete inability to flex or extend the hip. She does have minimal plantar and dorsiflexion of the great toe and the foot on the left. No spinal tenderness. Upper extremities demonstrate normal microbiology lab technician strength bilaterally, there may be a slight almost imperceptible weakness on the left compared to the right. Rectal exam was performed with female nurse is at bedside, patient demonstrates good rectal tone, and good perirectal sensation. Patient does have intact saddle sensation. 8.Skin: Warm, Dry. No rashes or lesions. 9.Neuro: wire temperer II-XII grossly intact. Sensation grossly intact, Please see musculoskeletal. No dysdiadochokinesia, no dysmetria. Normal finger-nose- finger. Normal vision and planes of movement. Patient able to verbalize [place] without any slurring. No facial droop. 10.Psych: (AAO) x3. Appropriate mood and affect Course Vital Signs Vital signs: Vital Signs Temperature 36.4 C L 09/25/22 07:07 Pulse 84 09/25/22 07:07 Respiratory Rate 20 09/25/22 07:07 Blood Pressure 169/86 H 09/25/22 07:07 Pulse Oximetry 96 09/25/22 07:07 Temperature 36.4 C L 09/25/22 07:07 Temperature Source Oral 09/25/22 07:07 Pulse 84 09/25/22 07:07 Respiratory Rate 20 09/25/22 07:07 Blood Pressure 169/86 H 09/25/22 07:07 Blood Pressure Position Supine 09/25/22 07:07 Pulse Oximetry 96 09/25/22 07:07 Oxygen Delivery Method Room Air 09/25/22 07:07 Oxygen Flow Rate 0 09/25/22 07:07
[2022-09-25 07:26] LABS: Abs Immature Grans 0.08 10^3/uL (0.0-0.06); Absolute Basophil Count 0.02 10^3/uL (0.0-0.2); Absolute Eosinophil Count 0.22 10^3/uL (0.0-0.7); Absolute Lymphocyte Count 2.92 10^3/uL (1.2-3.4); Absolute Monocyte Count 0.62 10^3/uL (0.1-0.8); Absolute Neutrophil Count 4.58 10^3/uL (1.2-6.7); Basophils % 0.2; Eosinophils % 2.6; HGB 12.4 g/dL (11.2-15.7); Immature Grans % 0.9; Lymphocytes % 34.6; MCH 32.3 pg (27.0-33.0); MCHC 34.4 % (32.0-36.0); MCV 94 fL (80-95); Monocytes % 7.3; Neutrophils % 54.4; Platelet Count 247 10^3/uL (130-400); RBC 3.84 10^6/uL (3.93-5.22); RDW 12.6 % (11.7-14.6); RDW-SD 43.1 fL; WBC 8.44 10^3/uL (4.4-10.8)
[2022-09-25 07:40] LABS: ALT 42 U/L (14-59); AST 21 U/L (15-37); Albumin 3.7 g/dL (3.4-5.0); Alkaline Phosphatase 112 U/L (46-116); Anion Gap 5.4 mmol/L (3-11); BUN 11 mg/dL (7-18); Bilirubin, Total 0.3 mg/dL (0.2-1.0); CO2 28.6 mmol/L (21.0-32.0); Calcium 9.5 mg/dL (8.5-10.1); Chloride 99 mmol/L (98-107); Estimated GFR 64.09 (mL/min/1.73m2); Glucose 134 mg/dL (74-106); INR 0.9 (0.9-1.1); Potassium 4.1 mmol/L (3.5-5.1); Prothrombin Time 9.4 sec (9.3-11.0); Sodium 133 mmol/L (136-145); Total Protein 7.5 g/dL (6.4-8.2)
[2022-09-25 07:47] LABS: Bilirubin Negative (Negative); Blood Negative (Negative); Clarity Clear (Clear); Glucose Negative (Negative); Ketones Negative (Negative); Leukocyte Esterase Negative (Negative); Nitrite Negative (Negative); Urobilinogen 0.2 mg/dL (Up to 0.2)
[2022-09-25] MEDS: Normal Saline - Diluent 50 ML VIAL IJ (08:14)
[2022-09-25] MEDS: Omnipaque 350 MG/ML 100 ML BTL IJ (08:14)
[2022-09-25] MEDS: Normal Saline Flush 10 ML SYR IVP (08:16)
[2022-09-25] MEDS: Normal Saline 500 ML IV (08:35)
--- NOTE | 2022-09-25 08:56 | ED.PROG_ITS ---
Date of service: 09/25/22 Time of Service: 08:00 Medical Decision Making 799 -- Please see Dr. Truong's note for initial presentation, exam, and plan. Case endorsed to f/u on imaging results. 899 -- 61-year-old female with history of open left salpingo oophorectomy for a large benign appearing cystic mass on 08/02/[address] [facility] presents for inability to left her left leg and left hand weakness since awakening at 6 AM this morning. She went to bed at 11 PM last night and had no leg or hand weakness at that time. She was seen at [facility] for back pain after 2 falls on 07/29/2022 and had negative thoracic and lumbar spine imaging at that time but was noted to have the 15 cm left ovarian mass and was referred to [facility] for further evaluation. She endorses that she fell again after that [facility] ED visit and was seen at [facility] ED and imaging was repeated and plan was to address ovarian mass and she was admitted for salpingo-oophorectomy at that time. During that admission to [facility], she was referred for MRI of her thoracic and lumbar spine which noted a mild T12 compression fracture and small left-sided L5-S1 paracentral disc herniation for which neurosurgery recommended pain control but no indication for surgery or bracing at that time. She endorses she has had tingling and numbness in both legs, mainly medial thighs and extending down entire lower legs to feet since July. She has not had any bowel or bladder incontinence, saddle anesthesia since then. She does endorse she had difficulty getting to the toilet this morning to urinate due to her leg weakness but was able to urinate a small amount after assisted to the toilet once EMS arrived. Of note, initial bladder scan in the ED this morning per nursing noted approximately 500 cc of retained urine and nursing endorses that they removed 1000 cc with straight catheter. On exam, patient is unable to lift her left leg. She does have 4-5 muscle strength with plantar and dorsiflexion on left side. She has normal muscle strength in her right arm and right leg. She does have a notable diminished left hand die try out worker 4/5 muscle strength. She does have gross sensory intact to her bilateral upper and lower extremities. Her back appears normal to inspection without evidence of cellulitis or trauma. Dr. Truong had performed a rectal exam and she had normal rectal tone and sensation. She has no other focal deficits including cranial nerves intact bilaterally. Her abdomen surgical site appears to be healing well without signs of cellulitis. 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 CT lumbar spine without notes compression fracture of T12 with approximately 50% height loss and 4 mm of retropulsion into the central spinal canal narrowing the canal to 8 mm at its narrowest point. We will consult [facility] neurosurgery for recommendations. 1120 -- Case discussed with [facility] neurosurgery. --Recommend to pinch the left leg to see if any movement and if no movement, agrees with transfer for stat MRI. They do not have capacity to accept patient into the ED or room at this time. We will call [facility]. Patient had no reflexive movement with pinching of her left lower extremity. 1245 -- Case d/w [facility] neurosurgery -- no capacity to accept. 1300 -- Case discussed with [facility]. Accepting physician Dr. Walter Abbott. Patient and agreeable with plan. Medical Records Medical records reviewed: Yes I reviewed the patient's medical records. Medical records narrative: 08/02/22 -- MRI thoracic/lumbar spine with and without contrast -- [facility] Impression 1. Acute superior endplate fracture of T12 with 20% vertebral body height loss. Minimal posterior bony retropulsion contributes to mild spinal canal stenosis at T11-T12. No cord contact or deformity. No definitive accompanying enhancing mass. 2. No osseous metastatic disease in the thoracic or lumbar spine. 07/29/22 -- CT chest/abdomen/pelvis w/ thoracic/lumbar spine recons -- [facility] Impression No acute abnormality in the chest, thoracic or lumbar spine. 15 cm cystic left ovarian mass with areas of mural nodularity. [employer] surgical consultation recommended. No evidence of adenopathy or metastatic disease. Imaging Data Radiologic Study: Radiologist's impression: CT Head Without Contrast Exam date and time: 09/25/2022 8:17 AM Age: 61 years old Clinical indication: Other: Left leg weakness, R/O stroke TECHNIQUE: Imaging protocol: Computed tomography of the head without contrast. COMPARISON: No relevant prior studies available. FINDINGS: Brain: Normal. No hemorrhage. Unremarkable white matter. No mass effect. Cerebral ventricles: No ventriculomegaly. Paranasal sinuses: Visualized sinuses are unremarkable. No fluid levels. Mastoid air cells: Visualized mastoid air cells are well aerated. Bones/joints: Unremarkable. No acute fracture. Soft tissues: Unremarkable. IMPRESSION: No acute intracranial abnormality. CTA Head With Contrast, Arteriography Exam date and time: 09/25/2022 8:17 AM Age: 61 years old Clinical indication: Other: Left leg weakness, R/O stroke TECHNIQUE: Imaging protocol: Computed tomographic angiography of the head with contrast. Exam focused on the arteries. 3D rendering (Not supervised by radiologist): MIP and/or 3D reconstructed images were created by the technologist. Contrast material: OMNIPAQUE 350; Contrast volume: 85 ml; Contrast route: INTRAVENOUS (IV);? COMPARISON: No relevant prior studies available. FINDINGS: ANTERIOR CIRCULATION: Right internal carotid artery: Intracranial segment is patent with no significant stenosis. No aneurysm. Right middle cerebral artery: No occlusion or significant stenosis. No aneurysm.? 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 The A2 segment is well opacified, likely secondary to collateral flow through the anterior communicating artery. Left internal carotid artery: Intracranial segment is patent with no significant stenosis. No aneurysm. Left middle cerebral artery: No occlusion or significant stenosis. No aneurysm. ? Left anterior cerebral artery: No occlusion or significant stenosis. No aneurysm.? POSTERIOR CIRCULATION: Right vertebral artery: No occlusion or significant stenosis. No aneurysm.? Left vertebral artery: No occlusion or significant stenosis. No aneurysm.? Basilar artery: No occlusion or significant stenosis. No aneurysm. Right posterior cerebral artery: No occlusion or significant stenosis. No aneurysm.? Left posterior cerebral artery: No occlusion or significant stenosis. No aneurysm.? Brain: No definite mass, mass effect, or midline shift. Cerebral ventricles: No ventriculomegaly. Bones/joints: Unremarkable. No acute fracture. Soft tissues: Unremarkable. IMPRESSION: 1. ? 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 2. ? No evidence of large vessel thrombosis or occlusion. No significant stenosis. CTA Neck With Contrast Exam date and time: 09/25/2022 8:17 AM Age: 61 years old Clinical indication: Other: Left leg weakness, R/O stroke TECHNIQUE: Imaging protocol: Computed tomographic angiography of the neck with contrast. 3D rendering (Not supervised by radiologist): MIP and/or 3D reconstructed images were created by the technologist. Radiation optimization: All CT scans at this facility use at least one of these dose optimization techniques: automated exposure control; mA and/or kV adjustment per patient size (includes targeted exams where dose is matched to clinical indication); or iterative reconstruction. Contrast material: OMNIPAQUE 350; Contrast volume: 85 ml; Contrast route: INTRAVENOUS (IV);? COMPARISON: CT CHEST/ABD/PEL W 07/29/2022 10:17 PM FINDINGS: Right common carotid artery: No stenosis. No dissection or occlusion. Right internal carotid artery: No stenosis of the extracranial segment. No dissection or occlusion. Right external carotid artery: No occlusion or stenosis of the origin.? Left common carotid artery: No stenosis. No dissection or occlusion. Left internal carotid artery: No stenosis of the extracranial segment. No dissection or occlusion. Left external carotid artery: No occlusion or stenosis of the origin.? Right vertebral artery: No stenosis. No dissection or occlusion. Left vertebral artery: No stenosis. No dissection or occlusion. Soft tissues: Normal. No significant soft tissue swelling. Bones/joints: No acute fracture. IMPRESSION: No stenosis or occlusion. Lab Data Lab results reviewed: Yes I reviewed the patient's lab results. Labs: Laboratory Tests Range/Units 09/25/22 09/25/22 09/25/22 07:15 07:15 07:15 WBC (4.4-10.8) 10^3/uL 8.44 RBC (3.93-5.22) 10^6/uL 3.84 L Hgb (11.2-15.7) g/dL 12.4 Hct (36.0-46.0) % 36.0 MCV (80-95) fL 94 MCH (27.0-33.0) pg 32.3 MCHC (32.0-36.0) % 34.4 RDW (11.7-14.6) % 12.6 Plt Count (130-400) 10^3/uL 247 MPV (8.0-11.0) fL 9.0 Immature Gran % 0.9 Neutrophils % 54.4 Lymphocytes % 34.6 Monocytes % 7.3 Eosinophils % 2.6 Basophils % 0.2 Nucleated RBC % (0.0-0.3) % 0.0 Absolute Neutrophils (1.2-6.7) 10^3/uL 4.58 Absolute Lymphocytes (1.2-3.4) 10^3/uL 2.92 Absolute Monocytes (0.1-0.8) 10^3/uL 0.62 Absolute Eosinophils (0.0-0.7) 10^3/uL 0.22 Absolute Basophils (0.0-0.2) 10^3/uL 0.02 PT (9.3-11.0) sec 9.4 INR (0.9-1.1) 0.9 APTT (21.5-31.9) sec 25.0 Sodium (136-145) mmol/L 133 L Potassium (3.5-5.1) mmol/L 4.1 Chloride (98-107) mmol/L 99 Carbon Dioxide (21.0-32.0) mmol/L 28.6 Anion Gap (3-11) mmol/L 5.4 BUN (7-18) mg/dL 11 Creatinine (0.55-1.02) mg/dL 1.0 Est GFR (CKD-EPI 2020) (mL/min/1.73m2) 64.09 Glucose (74-106) mg/dL 134 H Calcium (8.5-10.1) mg/dL 9.5 Total Bilirubin (0.2-1.0) mg/dL 0.3 AST (15-37) U/L 21 ALT (14-59) U/L 42 Alkaline Phosphatase (46-116) U/L 112 Total Protein (6.4-8.2) g/dL 7.5 Albumin (3.4-5.0) g/dL 3.7 Urine Color (Yellow) Urine Clarity (Clear) Urine pH (5-8) Ur Specific [place] (1.005-1.025) Urine Protein (Negative) mg/dL Urine Ketones (Negative) mg/dL Urine Blood (Negative) Urine Nitrite (Negative) Urine Bilirubin (Negative) Urine Urobilinogen (Up to 0.2) mg/dL Ur Leukocyte Esterase (Negative) Urine Glucose (Negative) mg/dL Range/Units 09/25/22 07:40 WBC (4.4-10.8) 10^3/uL RBC (3.93-5.22) 10^6/uL Hgb (11.2-15.7) g/dL Hct (36.0-46.0) % MCV (80-95) fL MCH (27.0-33.0) pg MCHC (32.0-36.0) % RDW (11.7-14.6) % Plt Count (130-400) 10^3/uL MPV (8.0-11.0) fL Immature Gran % Neutrophils % Lymphocytes % Monocytes % Eosinophils % Basophils % Nucleated RBC % (0.0-0.3) % Absolute Neutrophils (1.2-6.7) 10^3/uL Absolute Lymphocytes (1.2-3.4) 10^3/uL Absolute Monocytes (0.1-0.8) 10^3/uL Absolute Eosinophils (0.0-0.7) 10^3/uL Absolute Basophils (0.0-0.2) 10^3/uL PT (9.3-11.0) sec INR (0.9-1.1) APTT (21.5-31.9) sec Sodium (136-145) mmol/L Potassium (3.5-5.1) mmol/L Chloride (98-107) mmol/L Carbon Dioxide (21.0-32.0) mmol/L Anion Gap (3-11) mmol/L BUN (7-18) mg/dL Creatinine (0.55-1.02) mg/dL Est GFR (CKD-EPI 2020) (mL/min/1.73m2) Glucose (74-106) mg/dL Calcium (8.5-10.1) mg/dL Total Bilirubin (0.2-1.0) mg/dL AST (15-37) U/L ALT (14-59) U/L Alkaline Phosphatase (46-116) U/L Total Protein (6.4-8.2) g/dL Albumin (3.4-5.0) g/dL Urine Color (Yellow) Yellow Urine Clarity (Clear) Clear Urine pH (5-8) 6.0 Ur Specific [place] (1.005-1.025) 1.010 Urine Protein (Negative) mg/dL Negative Urine Ketones (Negative) mg/dL Negative Urine Blood (Negative) Negative Urine Nitrite (Negative) Negative Urine Bilirubin (Negative) Negative Urine Urobilinogen (Up to 0.2) mg/dL 0.2 Ur Leukocyte Esterase (Negative) Negative Urine Glucose (Negative) mg/dL Negative ECG Data Attestation: I personally reviewed and interpreted this ECG (s) as follows: Interpretation: Rate of 92, sinus, normal axis, no acute ischemic findings. Critical Care Time Critical Care Time Critical Care Time: Yes Total Critical Care Time: 120 Attestation: I spent 120 minutes of critical care time with this patient. This does not include time spent on separately reported billable procedures. Sign Out Sign Out Data: Sign Out Comment: Follow-up on labs and imaging, potential need for MRI of the brain and spine Last updated by Dylan Truong DO at 09/25/22 07:51 Discharge Plan Disposition Patient Disposition: Transfer-Acute Inpatient Care Specific Acute Inpt Facility: Other Discharge Details Clinical Impression: Weakness of left leg, Left hand weakness, Thoracic compression fracture, Acute urinary retention Primary Care Provider: Sailaja Ross ED Provider: Kayleigh Goldsmith [place] Meds and New Rx's Prescriptions: No Action cyclobenzaprine 10 MG tablet 10 mg PO HS quetiapine [Seroquel] 100 MG tablet 100 mg PO HS gabapentin 300 MG capsule 300 mg PO TID atenolol 50 MG tablet 50 mg PO DAILY levalbuterol tartrate [Xopenex HFA] 15 GM HFA aerosol inhaler See Rx Instructions .ROUTE .COMPLEX Rx Instructions: see above lisinopril 5 mg Tablet Rx Instructions: unknown dose methocarbamol 500 mg tablet 500 mg PO Q6H PRN (Reason: muscle spasm) Qty: 14 0RF Patient Comments: not longer taking prednisone 20 mg tablet See Rx Instructions .ROUTE .COMPLEX Qty: 18 0RF Rx Instructions: Take 3 tabs daily for 3 days, then 2 tabs daily for 3 days, then 1 tab daily for 3 days. Discharge Data Discharge Date/Time-TO BE ENTERED AT DEPARTURE: 09/25/22 15:05
--- NOTE | 2022-09-25 10:27 | DI.VRAD_ITS ---
PROCEDURE INFORMATION: Exam: CT Head Without Contrast Exam date and time: 09/25/2022 8:17 AM Age: 61 years old Clinical indication: Other: Left leg weakness, R/O stroke TECHNIQUE: Imaging protocol: Computed tomography of the head without contrast. COMPARISON: No relevant prior studies available. FINDINGS: Brain: Normal. No hemorrhage. Unremarkable white matter. No mass effect. Cerebral ventricles: No ventriculomegaly. Paranasal sinuses: Visualized sinuses are unremarkable. No fluid levels. Mastoid air cells: Visualized mastoid air cells are well aerated. Bones/joints: Unremarkable. No acute fracture. Soft tissues: Unremarkable. IMPRESSION: No acute intracranial abnormality. PROCEDURE INFORMATION: Exam: CTA Head With Contrast, Arteriography Exam date and time: 09/25/2022 8:17 AM Age: 61 years old Clinical indication: Other: Left leg weakness, R/O stroke TECHNIQUE: Imaging protocol: Computed tomographic angiography of the head with contrast. Exam focused on the arteries. 3D rendering (Not supervised by radiologist): MIP and/or 3D reconstructed images were created by the technologist. Contrast material: OMNIPAQUE 350; Contrast volume: 85 ml; Contrast route: INTRAVENOUS (IV); COMPARISON: No relevant prior studies available. FINDINGS: ANTERIOR CIRCULATION: Right internal carotid artery: Intracranial segment is patent with no significant stenosis. No aneurysm. Right middle cerebral artery: No occlusion or significant stenosis. No aneurysm. 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 The A2 segment is well opacified, likely secondary to collateral flow through the anterior communicating artery. Left internal carotid artery: Intracranial segment is patent with no significant stenosis. No aneurysm. Left middle cerebral artery: No occlusion or significant stenosis. No aneurysm. Left anterior cerebral artery: No occlusion or significant stenosis. No aneurysm. POSTERIOR CIRCULATION: Right vertebral artery: No occlusion or significant stenosis. No aneurysm. Left vertebral artery: No occlusion or significant stenosis. No aneurysm. Basilar artery: No occlusion or significant stenosis. No aneurysm. Right posterior cerebral artery: No occlusion or significant stenosis. No aneurysm. Left posterior cerebral artery: No occlusion or significant stenosis. No aneurysm. Brain: No definite mass, mass effect, or midline shift. Cerebral ventricles: No ventriculomegaly. Bones/joints: Unremarkable. No acute fracture. Soft tissues: Unremarkable. IMPRESSION: 1. 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 2. No evidence of large vessel thrombosis or occlusion. No significant stenosis. PROCEDURE INFORMATION: Exam: CTA Neck With Contrast Exam date and time: 09/25/2022 8:17 AM Age: 61 years old Clinical indication: Other: Left leg weakness, R/O stroke TECHNIQUE: Imaging protocol: Computed tomographic angiography of the neck with contrast. 3D rendering (Not supervised by radiologist): MIP and/or 3D reconstructed images were created by the technologist. Radiation optimization: All CT scans at this facility use at least one of these dose optimization techniques: automated exposure control; mA and/or kV adjustment per patient size (includes targeted exams where dose is matched to clinical indication); or iterative reconstruction. Contrast material: OMNIPAQUE 350; Contrast volume: 85 ml; Contrast route: INTRAVENOUS (IV); COMPARISON: CT CHEST/ABD/PEL W 07/29/2022 10:17 PM FINDINGS: Right common carotid artery: No stenosis. No dissection or occlusion. Right internal carotid artery: No stenosis of the extracranial segment. No dissection or occlusion. Right external carotid artery: No occlusion or stenosis of the origin. Left common carotid artery: No stenosis. No dissection or occlusion. Left internal carotid artery: No stenosis of the extracranial segment. No dissection or occlusion. Left external carotid artery: No occlusion or stenosis of the origin. Right vertebral artery: No stenosis. No dissection or occlusion. Left vertebral artery: No stenosis. No dissection or occlusion. Soft tissues: Normal. No significant soft tissue swelling. Bones/joints: No acute fracture. IMPRESSION: No stenosis or occlusion. REFERENCES: NASCET CRITERIA. The degree of stenosis in the cervical segment of the internal carotid artery is based on NASCET criteria. Normal is no stenosis. Mild is less than 50% stenosis. Moderate is 50-69% stenosis. Severe is 70% to 99% stenosis. Total occlusion is no detectable patent lumen. Dictated and Authenticated by: Uriel Perez MD. Ordering:SALOME Richardson MD
--- NOTE | 2022-09-25 10:54 | DI.VRAD_ITS ---
Addendum created by Uriel Perez DO on 09/25/2022 10:55:18 AM EDT: Addendum: The uterus is surgically absent. The ovaries are not clearly identified and may be absent as well. Initial report created on 09/25/2022 10:54:14 AM EDT: PROCEDURE INFORMATION: Exam: CT Abdomen And Pelvis Without Contrast Exam date and time: 09/25/2022 8:26 AM Age: 61 years old Clinical indication: Other: Left leg weakness, R/O mass; Prior surgery; Surgery date: <1 month; Surgery type: Per patient mass removed from left ovary in August 2022 TECHNIQUE: Imaging protocol: Computed tomography of the abdomen and pelvis without contrast. Radiation optimization: All CT scans at this facility use at least one of these dose optimization techniques: automated exposure control; mA and/or kV adjustment per patient size (includes targeted exams where dose is matched to clinical indication); or iterative reconstruction. COMPARISON: CT CHEST/ABD/PEL W 07/29/2022 10:17 PM FINDINGS: Lungs: Bibasilar dependent atelectasis is present. Liver: Hepatic steatosis is present. Gallbladder and bile ducts: Normal. No calcified stones. No ductal dilation. Pancreas: There is fatty atrophy throughout the pancreas. No focal pancreatic masses are identified. Spleen: Normal. No splenomegaly. Adrenal glands: Normal. No mass. Kidneys and ureters: The left kidney is surgically absent. Residual IV contrast is excreted in the right renal collecting system. The right kidney is grossly unremarkable. Stomach and bowel: There is some subtle thickening of the sigmoid colon adjacent to the urinary bladder. A definitive fat plane cannot be visualized between the sigmoid colon and the urinary bladder at this location just along the superior posterior margin of the urinary bladder. The remainder of the colon as well as the small bowel are unremarkable. The stomach is normal in appearance. Appendix: No evidence of appendicitis. Intraperitoneal space: Unremarkable. No free air. No significant fluid collection. Vasculature: Unremarkable. No abdominal aortic aneurysm. Lymph nodes: Unremarkable. No enlarged lymph nodes. Urinary bladder: There is a Fournier catheter present within the urinary bladder. There is some mild thickening of the urinary bladder wall. Reproductive: Unremarkable as visualized. Bones/joints: There is an anterior wedge compression fracture of the T12 vertebral body, new when compared to 07/29/2022. Height loss is approximately 50% in the anterior aspect. There is approximately 4 mm of retropulsion into the spinal canal narrowing the central spinal canal to 8 mm at its narrowest point. The fracture does not appear to involve the posterior elements but does involve the anterior and posterior columns. Soft tissues: See Stomach and bowel finding. IMPRESSION: 1. Compression fracture of the T12 vertebral body with approximately 50% height loss. This is new when compared to 07/29/2022. Correlate with patient's history and symptoms. There is approximately 4 mm of retropulsion of the posterior column narrowing the central spinal canal to approximately 8 mm in narrowest dimension. 2. Mild thickening of the urinary bladder wall as well as the overlying sigmoid colon. This may represent a cystitis however a developing colovesicular fistula cannot be entirely excluded. Correlate clinically. 3. Other chronic changes as described. Dictated and Authenticated by: Uriel Perez MD. Ordering:SALOME Richardson MD
--- NOTE | 2022-09-25 10:57 | DI.VRAD_ITS ---
PROCEDURE INFORMATION: Exam: CT Lumbar Spine Without Contrast Exam date and time: 09/25/2022 8:26 AM Age: 61 years old Clinical indication: Weakness and other: Left leg weakness R. O mass, spine pathology TECHNIQUE: Imaging protocol: Computed tomography of the lumbar spine without contrast. Radiation optimization: All CT scans at this facility use at least one of these dose optimization techniques: automated exposure control; mA and/or kV adjustment per patient size (includes targeted exams where dose is matched to clinical indication); or iterative reconstruction. COMPARISON: CT THORACIC LUMBAR SPINE REC 07/29/2022 10:17 PM FINDINGS: Bones/joints: Compression fracture of the T12 vertebral body with approximately 50% height loss. This is new when compared to 07/29/2022. There is approximately 4 mm of retropulsion of the posterior fracture fragments that narrows the central spinal canal to 8 mm at its narrowest point. The posterior elements of the T12 vertebrae are not involved with the fracture however the anterior and posterior columns of the vertebral body are involved with the fracture. No other acute bony abnormalities appreciated. No aggressive appearing bony lesions. Soft tissues: Described in detail on prior abdomen pelvis CT. IMPRESSION: Compression fracture of the T12 vertebral body with approximately 50% height loss and 4 mm of retropulsion into the central spinal canal narrowing the canal to 8 mm at its narrowest point. This is new when compared to 07/29/2022. Dictated and Authenticated by: Uriel Perez MD. Ordering:SALOME Richardson MD
[2022-09-25] MEDS: Metoprolol 5 MG/5 ML VIAL IVP (14:49)
--- NOTE | 2022-09-25 15:07 | NUR.NOTE ---
Nursing Note: [facility] personnel uncomfortable transporting patient with blood pressure high. Provider TB ordered 5mg metoprolol IV Push to be given before transport.
== END 2022-09-25 15:05 | disposition short-term general hospital (02) ==
LOC: ER 09:08
PROVIDERS: Student in an Organized Health Care Education/Training Program; Emergency Provider Physician Assistant; PCP Nurse Practitioner Family
DX: S22.089A Unspecified fracture of T11-T12 vertebra, initial encounter for closed fracture (principal); R33.9 Retention of urine, unspecified; R29.898 Other symptoms and signs involving the musculoskeletal system; M51.27 Other intervertebral disc displacement, lumbosacral region; I10 Essential (primary) hypertension; R20.2 Paresthesia of skin; Z90.710 Acquired absence of both cervix and uterus; W07.XXXA Fall from chair, initial encounter
CPT/HCPCS: 36415; 51798; 70496; 70498; 80053; 93005; 96361; 96374; 99291; 99292; 74176; 81003; 85025; 85610; 85730; 93010; J3490

== ENCOUNTER 2022-10-01 15:54 | Emergency (ER) | payer SELFPAY ==
[2022-10-01 15:57] VITALS: BP 163/92; PULSE 108; RESP 18; TEMP 36.6; O2SAT 98
--- NOTE | 2022-10-01 16:15 | DI.US_ITS ---
Exam(s) US LOWER EXTREMITY VENOUS RT EXAM: US LOWER EXTREMITY VENOUS RT CLINICAL HISTORY: Swelling, Pain. TECHNIQUE: Lower extremity venous ultrasound performed using grayscale, color-flow, and spectral Do ppler analysis. COMPARISON: No exams were available for comparison FINDINGS: The common femoral, femoral and popliteal veins demonstrate normal compressibility, augmentation, and color Doppler. The posterior tibial veins are patent. No saphenous vein thrombosis or other superfi cial venous thrombosis is seen. No hematoma or Esqueda's cyst is seen. IMPRESSION: Negative lower extremity ultrasound. No evidence of DVT. DATA REPOSITORY:
[2022-10-01 16:19] VITALS: RESP 18
--- NOTE | 2022-10-01 16:20 | ED.GENADUL_ITS ---
Discharge Plan Disposition Patient Disposition: Home Condition: Stable Discharge Details Clinical Impression: Leg pain Primary Care Provider: Lena Womack ED Provider: Meron Mustafa Home Meds and New Rx's Prescriptions: Continued cyclobenzaprine 10 MG tablet 10 mg PO HS quetiapine [Seroquel] 100 MG tablet 100 mg PO HS gabapentin 300 MG capsule 300 mg PO TID atenolol 50 MG tablet 50 mg PO DAILY levalbuterol tartrate [Xopenex HFA] 15 GM HFA aerosol inhaler See Rx Instructions .ROUTE .COMPLEX Rx Instructions: see above lisinopril 5 mg Tablet Rx Instructions: unknown dose methocarbamol 500 mg tablet 500 mg PO Q6H PRN (Reason: muscle spasm) Qty: 14 0RF Patient Comments: not longer taking prednisone 20 mg tablet See Rx Instructions .ROUTE .COMPLEX Qty: 18 0RF Rx Instructions: Take 3 tabs daily for 3 days, then 2 tabs daily for 3 days, then 1 tab daily for 3 days. Discharge Instructions Instructions: Leg Pain (ED) Additional Instructions: No evidence of blood clot or DVT on the ultrasound. The pain in your leg may be due to nerve type pain from your compression fractures in your back. Please continue taking gabapentin. You may alternate Tylenol and/or ibuprofen as needed. Please take Tylenol or Ibuprofen with food every 4-6 hours as needed for pain and swelling. Follow up with primary care provider in 3-5 days. Return to ED sooner if any worsening or concerns. Increase oral fluids. Referrals: Lena Womack [Primary Care Provider] - 3 days Discharge Data Discharge Date/Time-TO BE ENTERED AT DEPARTURE: 10/01/22 17:24 Medical Decision Making 61-year-old female presents to the ER with a chief complaint of right leg pain and swelling which she noticed today. She denies any chest pain or shortness of breath. She recently had surgery beginning of August for an ovarian cyst. Ultrasound rule out DVT ordered. apprentice instrument technician is in house and able to perform the exam today. Preliminary result received by electrical design technologist is negative for DVT. Patient discharged with follow-up care. This text was generated using [employer] system, please disregard any oddities of phrase or misspellings. HPI General Mode of arrival: ambulatory . Date/Time Provider Initiated Documentation: 10/01/22 16:09 . Limitations to Documentation: no limitations . Information obtained by: patient, RN notes reviewed and old records reviewed . HPI Narrative: 61-year-old female presents to the ER with a chief complaint of right leg pain and swelling which she noticed today. She denies any chest pain or shortness of breath. She recently had surgery beginning of August for an ovarian cyst. 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 She was recently hospitalized at [facility] for compression fracture of C6 and 7. Other past medical history include hypertension morbid obesity 1 kidney, neck pain. Related Data Home Medications Medication Instructions Recorded Confirmed atenolol 50 mg tablet 50 mg PO DAILY 11/20/13 09/25/22 cyclobenzaprine 10 mg tablet 10 mg PO HS 11/20/13 09/25/22 gabapentin 300 mg capsule 300 mg PO TID 11/20/13 09/25/22 levalbuterol tartrate 45 See Rx Instructions .Route .COMPLEX 11/20/13 09/25/22 mcg/actuation aerosol inhaler (Xopenex HFA) quetiapine 100 mg tablet (Seroquel) 100 mg PO HS 11/20/13 09/25/22 methocarbamol 500 mg tablet 500 mg PO Q6H PRN muscle spasm #14 07/30/22 tabs prednisone 20 mg tablet See Rx Instructions .Route 07/30/22 .COMPLEX #18 tabs lisinopril 5 mg tablet mg 09/25/22 Previous Rx's Medication Instructions Recorded methocarbamol 500 mg tablet 500 mg PO Q6H PRN muscle spasm #14 07/30/22 tabs prednisone 20 mg tablet See Rx Instructions .Route 07/30/22 .COMPLEX #18 tabs Allergies Allergy/AdvReac Type Severity Reaction Status Date / Time sertraline HCl [From Zoloft] Allergy Intermediate Nausea Unverified 09/25/22 11:01 General Stated Complaint: Vascular MANJU: 3 Review of Systems All systems reviewed & are unremarkable except as noted in HPI and below Cardiovascular Cardiovascular: Reports leg edema PFSH All Active Problems (Updated 10/01/22 @ 17:10 by Meron Mustafa NP) Weakness of left leg (Acute) Left hand weakness (Acute) Thoracic compression fracture (Acute) Acute urinary retention (Acute) Leg pain (Acute) Medical History Chronic neck pain Congenital absence of one kidney HTN (hypertension) Morbid obesity Surgical History H/O bilateral breast reduction surgery H/O section History of hysterectomy Social History Smoking/Tobacco Use Status: Current every day Tobacco Type: cigarettes Smoking risk assessment performed?: Yes Alcohol Intake: never Drug use: Daily Substance use type: marijuana and prescription drug Do you feel safe at home: Yes Do you feel safe in your relationship?: Yes Exam Narrative Exam Narrative: Constitutional: Alert and oriented x3. Appears stated age. Normal body habitus. Chest: RRR, Normal S1, S2, distal pulses intact. Resp: Lungs clear to auscultation bilaterally, no wheezes, rales, or rhonchi. Abdomen: Soft, non-distended, Normoactive bowel sounds all 4 quads. Musculoskeletal: 5/5 strength to all four extremities. No significant evidence of swelling erythema. Skin: No suspicious rashes or lesions. Capillary refill less than 2 sec. Neurologic: Cranial nerves II-XII intact. Alert and oriented x 3. Motor: No deficits noted. Sensory: Intact bilaterally all 4 extremities. Reflexes: DTR's intact bilaterally.. Hematologic/Lymphatic: No ecchymosis, no lymphadenopathy. Course Vital Signs Vital signs: Vital Signs Temperature 36.6 C 10/01/22 15:57 Pulse 108 H 10/01/22 15:57 Respiratory Rate 18 10/01/22 15:57 Blood Pressure 163/92 H 10/01/22 15:57 Pulse Oximetry 98 10/01/22 15:57 Temperature 36.6 C 10/01/22 15:57 Temperature Source Oral 10/01/22 15:57 Pulse 108 H 10/01/22 15:57 Respiratory Rate 18 10/01/22 15:57 Respiratory Effort Normal 10/01/22 16:08 Blood Pressure 163/92 H 10/01/22 15:57 Pulse Oximetry 98 10/01/22 15:57 Oxygen Delivery Method Room Air 10/01/22 15:57 Oxygen Flow Rate 0 10/01/22 15:57 Pain Level 8 10/01/22 15:57
[2022-10-01 17:17] VITALS: BP 159/78; PULSE 103; RESP 18; O2SAT 92
== END 2022-10-01 17:24 | disposition home or self-care (01) ==
PROVIDERS: Emergency Provider Registered Nurse Emergency; PCP Nurse Practitioner Family
DX: M79.605 Pain in left leg (principal); R22.41 Localized swelling, mass and lump, right lower limb
CPT/HCPCS: 99284; 93971; 99283

== ENCOUNTER 2022-10-04 18:14 | Outpatient (REF) | payer SELFPAY ==
[2022-10-04 16:57] LABS: Bilirubin Negative (Negative); Blood Large (Negative); Clarity Cloudy (Clear); Glucose Negative (Negative); Ketones Negative (Negative); Leukocyte Esterase Moderate (Negative); Nitrite Positive (Negative); Specific Gravity 1.025 (1.005-1.025); Urobilinogen 0.2 mg/dL (Up to 0.2)
[2022-10-04 17:11] LABS: Bacteria Many HPF (Negative); C & S Indicated? Yes; Casts Negative LPF (Negative); Crystals Negative HPF (Negative); Epithelial Cells Few HPF (Negative); Mucus Trace (Negative); RBC 20-50 HPF (0-2); WBC 20-50 HPF (0-5)
== END 2022-10-04 18:15 | disposition home or self-care (01) ==
LOC: NCHCN 18:14
PROVIDERS: PCP Nurse Practitioner Family; Visit Provider Nurse Practitioner Family
DX: R33.9 Retention of urine, unspecified (principal); R82.998 Other abnormal findings in urine
CPT/HCPCS: 81003; 81015; 87086

== ENCOUNTER 2023-01-05 01:03 | Outpatient (CLI) | payer BC, SELFPAY ==
--- NOTE | 2023-01-05 | DI.RAD_ITS ---
Exam(s) XR CERVICAL SP LO TRAUMA 2-3V EXAM: XR CERVICAL SP LO TRAUMA 2-3V CLINICAL HISTORY: CERVICAL SPONDYLOSIS W/O MYELOPATHY, M47.812, S/P C4-T2 PSIF, C5-7. TECHNIQUE: 2D digital imaging was performed. COMPARISON: No exams were available for comparison FINDINGS: Four views. There is multilevel posterior fusion hardware comprised of posterior fusion rods at and below C4 exte nding into the upper thoracic spine/T2 level, these jerrica secured by multilevel bilateral pedicular scr ews. No evidence of acute fracture nor significant listhesis. Disc spaces are maintained, including C3-4 which is 1 level above the fusion hardware. No obvious osseous lesions. IMPRESSION: Multilevel 5th intact appearing fusion hardware. No fractures nor listhesis evident. DATA REPOSITORY: RADIATION DOSE DELIVERED:
== END 2023-01-05 01:23 ==
PROVIDERS: PCP Nurse Practitioner Family; Visit Provider Student in an Organized Health Care Education/Training Program
DX: M47.812 Spondylosis without myelopathy or radiculopathy, cervical region (principal)
CPT/HCPCS: 72040

== ENCOUNTER 2023-01-12 16:55 | Outpatient (REF) | payer BC, SELFPAY | END 2023-01-12 16:56 | disposition home or self-care (01) | LOC: NCHCN 16:55 | PROVIDERS: PCP Nurse Practitioner Family; Visit Provider Nurse Practitioner Family | DX: N39.0 Urinary tract infection, site not specified (principal) | CPT/HCPCS: 87077; 87086; 87186 ==

== ENCOUNTER 2024-02-12 16:27 | Emergency (ER) | payer BC, SELFPAY ==
[2024-02-12] VITALS (48 sets, daily range): BP systolic 90–237; BP diastolic 74–145; PULSE 59–86; RESP 0–33; TEMP 36.4; O2SAT 94–98
--- NOTE | 2024-02-12 16:30 | DI.RAD_ITS ---
Exam(s) XR SHOULDER LT COMPLETE 2+V XR HUMERUS LT EXAM: XR SHOULDER LT COMPLETE 2+V CLINICAL HISTORY: left arm pain. TECHNIQUE: 2D digital imaging was performed. Three views. COMPARISON: CR,XR XR HUMERUS LT from 02/12/2024 FINDINGS: BONES: Comminuted fracture at the greater tuberosity with displacement of fragments. No additional f ractures are identified. No bony destructive lesion is seen. Hardware noted in cervical JOINTS: Humeral head is dislocated anteriorly and inferiorly with respect to the glenoid. AC joint i s not widened.. SOFT TISSUE: Normal. Spine. Visualized portions of the lungs are clear. IMPRESSION: Anterior shoulder dislocation with fracture fragments from the humeral head. DATA REPOSITORY: RADIATION DOSE DELIVERED:
[2024-02-12] MEDS: Acetaminophen 500 MG TAB 1000 MG PO (16:48)
[2024-02-12] MEDS: Methocarbamol 500 MG TAB 1000 MG PO (16:48)
--- OUTSIDE RECORDS SUMMARY | 2024-02-12 18:05 | XMS_ITS | Encounter Summary ---
Author Organization [facility] Address [facility] [place] [address] Care Team Providers Care Entertainment Reporter Name Role Phone BrunoLena eddy Ronal MEJIA Primary Care Provider [phone] Encounter Details Date Type Department Care Team (Latest Contact Info) Description 12/28/2023 Travel Social History Tobacco Use Types Packs/Day Years Used Date Smoking Tobacco: Former Cigarettes 0.3 35 Smokeless Tobacco: Never Alcohol Use Standard Drinks/Week Comments Yes 0 (1 standard drink = 0.6 oz pur e alcohol) 1-2x a year IPV Inpatient Questions Answer Date Recorded Does Anyone Try to Keep You From Having Contact with Others or Doing Things Outside Your Home? no 12/01/2022 Feels Threatened by Someone no 11/05 Feels Unsafe at Home or Work/School no 12/01/2022 Physical Signs of Abuse Present no 12/01/2022 Sex and Gender Information Value Date Recorded Sex Assigned at Not on file Gender Identity Not on file Sexual Orientation Not on file documented as of this encounter Plan of Treatment Upcoming Encounters Date Type Department Care Team (Late st Contact Info) Description 03/07/2024 10:00 AM EDT Appointment XRay at [address] [place] [address] Tien Zurita MD [facility] [place] [address] 03/07/2024 10:40 AM EDT Office [place] [address] Angel Hankins PA [facility] [place] [address] documented as of this encounter Visit Diagnoses Not on filedocumented in this encounter Care Teams Entertainment Reporter Relationship Specialty Start Date End Date Lena Womack APRN PCP - General Family Medicine 08/02/22 documented as of this encounter
--- OUTSIDE RECORDS SUMMARY | 2024-02-12 18:05 | XMS_ITS | Encounter Summary ---
Author Organization [facility] Address [facility] [place] [address] Care Team Providers Care Certified Nurses Aide Name Role Phone Lena Womack APRN Primary Care Provider [phone] Encounter Details Date Type Department Care Team (Late st Contact Info) Description 01/18/2023 Telephone [place] [phone] Tien Zurita MD [facility] [place] [address] Social History Tobacco Use Types Packs/Day Years Used Date Smoking Tobacco: Former Cigarettes 0.3 35 Smokeless Tobacco: Never Alcohol Use Standard Drinks/Week Comments Yes 0 (1 standard drink = 0.6 oz pur e alcohol) 1-2x a year [facility] Inpatient Questions Answer Date Recorded Does Anyone [...] on file documented as of this encounter Miscellaneous Notes * Telephone Encounter - Rena Tom - 01/18/2023 11:46 AM EDT Called pt scheduled 03/14 appts Xray and Katheryn Velasco - 01/17/23 Tien Zurita MD Sent: TueJanuary 17, 2023 2:15 PM To: P [facility] Neurosurgery Finish Repairer Follow-up and Dispositions Return in about 8 weeks (around 03/14/2023) for In Person. Check-out Note: Follow-up in 2 months with repeat x-rays documented in this encounter Plan of Treatment Upcoming Encounters Date Type Department Care Team (Late st Contact Info) Description 03/07/2024 10:00 AM EDT Appointment XRramya at [address] [place] [address] Tien Zurita MD [facility] [place] [address] 03/07/2024 10:40 AM EDT Office Visit Neurosurgery at [facility] [place] [address] Angel Hankins, JOANNA [facility] [place] [address] documented as of this encounter Visit Diagnoses Not on filedocumented in this encounter Care Teams Certified Nurses Aide Relationship Specialty Start Date End Date Lena Womack APRN PCP - General Family Medicine 08/02/22 documented as of this encounter
--- OUTSIDE RECORDS SUMMARY | 2024-02-12 18:05 | XMS_ITS | Referral Summary ---
Author Organization [facility] Address [address] [place] [address] Care Team Providers Care Funeral Service Practitioner/Embalmer Name Role Phone Sailaja Ross FOOT TENDER Primary Care Provider [phone] Social History Tobacco Use Types Packs/Day Years Used Date Smoking Tobacco: Never Assessed Sex and Gender Information Value Date Recorded Sex Assigned at Not on file Gender Identity Not on file Sexual Orientation Not on file Plan of Treatment Not on file Care Teams Funeral Service Practitioner/Embalmer Relationship Specialty Start Date End Date Sailaja Ross, FOOT TENDER [facility] [address] [place] [address] PCP - General 12/19/09
--- OUTSIDE RECORDS SUMMARY | 2024-02-12 18:05 | XMS_ITS | Encounter Summary ---
Author Organization [facility] [place] [address] Care Team Providers Care Auger Machine Offbearer Name Role Phone Lena Womack APRN Primary Care Provider [phone] Reason for Visit * Diagnostic Test (Routine) - Closed Specialty Diagnoses / Procedures Referred By Cosmo cortez Referred To Contact Radiology Diagnoses Cervical myelopathy Procedures MRI Cervical Spine wo Contrast (Generic) Tien Zurita MD [facility] [place] [address] [place] [address] Referral ID Status Reason Start Date Expiration Date V isits Requested Visits Authorized [id number] Closed Specialty Service Requested 12/28/2023 02/25/2024 1 1 Encounter Details Date Type Department Care Team (Latest Contact Info) Description 12/28/2023 10:15 AM EDT - 12/28/2023 11:59 PM EDT Hospital [place] [address] Tien Zurita MD [facility] [place] [place] [address] Discharge Disposition: Home Social History Tobacco Use Types Packs/Day Years Used Date Smoking Tobacco: Former Cigarettes 0.3 35 Smokeless Tobacco: Never Alcohol Use Standard Drinks/Week Comments Yes 0 (1 standard drink = 0.6 oz pur e alcohol) 1-2x a year [facility] IPV Inpatient Questions Answer Date Recorded Does [...] on file documented as of this encounter Medications at Time of Discharge Medication Sig Dispensed Refills Start Date End Date albuteroL 90 mcg/actuation HFA Aerosol Inhaler INHALE TWO PUFFS BY MOUTH EVERY 4 TO 6 HOURS NEEDED 06/03/2023 cyclobenzaprine (Flexeril) 10 mg tablet Take 1 tablet by mouth Three Times Daily for DHE. 07/26/2023 acetaminophen (Tylenol) 325 mg tablet Take 3 tablets by mouth every 6 hours. 30 tablet 12/16/2022 senna-docusate (Pericolace) 8.6-50 mg Tablet Take 1-2 tablets by mouth 2 times daily as needed for Constipation. 30 tablet 12/16/2022 methocarbamoL (Robaxin) 500 mg tablet Take 1,000 mg by mouth 2 times daily. 11/27/2022 docusate sodium (Colace) 100 mg capsule Take 100 mg by mouth daily. b complex vitamins Tablet Take 1 tablet by mouth daily. cholecalciferol, Vitamin D3, 50 mcg (2,000 unit) Capsule Take 2,000 Units by mouth daily. Mag [address] tablet Take 64 mg by mouth every evening. 09/11/2022 loratadine (Claritin) 10 mg Tablet Take 10 mg by mouth daily. pantoprazole EC (Protonix) 40 mg Tablet, Delayed Release (E.C.) Take 1 tablet by mouth 2 times daily. 120 tablet 08/08/2022 lisinopriL (Zestril) 10 mg Tablet Take 1 tablet by mouth daily. 90 tablet 2 08/09/2022 gabapentin (NEURONTIN) 300 mg Capsule Take 600 mg by mouth 3 times daily. QUEtiapine (SEROquel) 100 mg tablet Take 100 mg by mouth nightly. multivitamin (THERAGRAN) tablet Take 1 tablet by mouth daily. atenolol (TENORMIN) 50 mg tablet Take 50 mg by mouth daily. levalbuteroL (XOPENEX HFA) 45 mcg/actuation HFA Aerosol Inhaler .COMPLEX 11/20/2013 diazePAM (Valium) 5 mg tablet Take 1 tablet by mouth every 6 hours as needed (muscle spasms). 30 tablet 12/16/2022 oxyCODONE (Roxicodone) 10 mg tablet Take 1-3 tablets by mouth every 3 hours as needed for Pain (If your pain is 4-6 take 10mg; if 7-8 take 20mg; if 9-10 take 30mg). 30 tablet 12/16/2022 traMADoL (Ultram) 100 mg tablet Take 100 mg by mouth 2 times daily as needed. 11/27/2022 sucralfate (Carafate) 1 gram tablet Take 1 g by mouth 4 times daily. 09/03/2022 amitriptyline (ELAVIL) 100 mg Tablet Take 100 mg by mouth nightly. documented as of this encounter Plan of Treatment Upcoming Encounters Date Type Department Care Team (Late st Contact Info) Description 03/07/2024 10:00 AM EDT Appointment XRay at [address] [place] [address] Tien Zurita MD [facility] [place] [place] [address] 03/07/2024 10:40 AM EDT Office [place] [phone] Angel Hankins PA [facility] [place] [place] [address] documented as of this encounter Procedures Procedure Name Priority Date/Time Associated Diagnosis Comments MRI CERVICAL SPINE WO CONTRAST Routine 12/28/2023 11:43 AM EDT Cervical myelopathy documented in this encounter Results * MRI Cervical Spine wo Contrast (Generic) (12/28/2023 11:43 AM EDT) [employer] WORKSTATION ID [id number] RAD Anatomical Region Laterality Modality C-spine Magnetic Resonan ce Impressions 12/29/2023 11:33 AM EDT 1. ??Interval decompression of the cervical spinal canal following C5-C7 laminectomy with posterior fusion. 2. ??Stable myelomalacia at C6-C7. 3. ??No significant spinal canal narrowing. 4. ??Severe left-sided neural foraminal narrowing at C3-C4. Thank you for letting us participate in the care of this patient. ??If you are a health care provider and have any questions regarding this report, please contact the number below. ??For patients who have questions please contact the health life care planner that requested your imaging first. ? Electronically signed by: Angel Rodriguez [facility] ([phone]), at 12/29/2023 11:33 AM Narrative 12/29/2023 11:33 AM EDT EXAMINATION: MRI CERVICAL SPINE WO CONTRAST (GENERIC) CLINICAL HISTORY: Myelopathy, chronic, cervical spine G95.9, Disease of spinal cord, unspecified TECHNIQUE: MRI of the cervical spine performed without intravenous contrast administration. COMPARISON: Cervical spine MRI dated 12/01/2022 FINDINGS: Interval C5-C7 laminectomy with C4-T2 PSIF. The ossific density about the ligamentum flavum at C6-C7 has been resected. Overall mild cervical degenerative change. Normal craniocervical junction. No aggressive marrow lesions. Visualized soft tissues are unremarkable. Examination is somewhat marred by motion, but there is evidence for cervical myelopathy at C6-C7 with spinal cord volume loss and interval change. A posterior disc osteophyte complex at C3-C4 mildly narrows the spinal canal. Otherwise widely patent spinal canal. Moderate right-sided neural foraminal narrowing at C2-C3 otherwise mild degrees of neural foraminal narrowing. On the left, severe neural foraminal narrowing at C3-C4 because of uncovertebral and facet arthropathy. Otherwise mild degrees of left-sided neural foraminal narrowing. Procedure Note Angel Rodriguez MD - 12/29/2023 EXAMINATION: MRI CERVICAL SPINE WO CONTRAST (GENERIC) CLINICAL HISTORY: Myelopathy, chronic, cervical spine G95.9, Disease of spinal cord, unspecified TECHNIQUE: MRI of the cervical spine performed without intravenous contrastadministration. COMPARISON: Cervical spine MRI dated 12/01/2022 FINDINGS: Interval C5-C7 laminectomy with C4-T2 PSIF. The ossific density aboutthe ligamentum flavum at C6-C7 has been resected. Overall mild cervical degenerative change. Normal craniocervical junction.No aggressive marrow lesions. Visualized soft tissues are unremarkable. Examination is somewhat marred by motion, but there is evidence forcervical myelopathy at C6-C7 with spinal cord volume loss and interval change. A posterior disc osteophyte complex at C3-C4 mildly narrows the spinalcanal. Otherwise widely patent spinal canal. Moderate right-sided neural foraminal narrowing at C2-C3 otherwise milddegrees of neural foraminal narrowing. On the left, severe neural foraminal narrowing at C3-C4 because ofuncovertebral and facet arthropathy. Otherwise mild degrees of left-sided neuralforaminal narrowing. IMPRESSION 1. Interval decompression of the cervical spinal canal following C5-C7 laminectomy with posterior fusion. 2. Stable myelomalacia at C6-C7. 3. No significant spinal canal narrowing. 4. Severe left-sided neural foraminal narrowing at C3-C4. Thank you for letting us participate in the care of this patient. If youare a health care provider and have any questions regarding this report,please contact the number below. For patients who have questions please contactthe health life care planner that requested your imaging first. Tien Zurita MD IMG MRI ORDERABLES documented in this encounter Visit Diagnoses Not on filedocumented in this encounter Care Teams Auger Machine Offbearer Relationship Specialty Start Date End Date Lena Womack, JACKIE PCP - General Family Medicine 08/02/22 documented as of this encounter
--- OUTSIDE RECORDS SUMMARY | 2024-02-12 18:05 | XMS_ITS | Encounter Summary ---
Author Organization [facility] [place] [place] [address] Care Team Providers Care Adhesive Primer Name Role Phone Lena Womack APRN Primary Care Provider [phone] Reason for Visit * Reason Onset Date Comments Appointment 03/15/2023 Encounter Details Date Type Department Care Team (Late st Contact Info) Description 03/15/2023 [place] [phone] Tien Zurita MD [facility] [place] [address] Appointment Social History Tobacco Use Types Packs/Day Years Used Date Smoking Tobacco: Former Cigarettes 0.3 35 Smokeless Tobacco: Never Alcohol Use Standard Drinks/Week Comments Yes 0 (1 standard drink = 0.6 oz pur e alcohol) 1-2x a year [facility] Inpatient Questions Answer Date Recorded Does Anyone [...] * Telephone Encounter - Rena Tom - 03/15/2023 9:42 AM EDT LM for pt regarding scheduling 3 month follow up appointments for Jun [address] Zurita Sent a [employer] message to pt with appt details. Katheryn Carranza Juwan - 03/14/23 Tien Zurita MD Sent: TueMarch 14, 2023 2:17 PM To: P [facility] Neurosurgery Corrugator Helper Follow-up and Dispositions Return in about 3 months (around 06/14/2023) for In Person. Check-out Note: Follow-up in 3 months with repeat x-rays Routing History documented in this encounter Plan of Treatment Upcoming Encounters Date Type Department Care Team (Late st Contact Info) Description 03/07/2024 10:00 AM EDT Appointment XRay at [address] [place] [address] Tien Zurita MD [facility] [place] [address] 03/07/2024 10:40 AM EDT Office Visit Neurosurgery at [facility] [place] [address] Angel Hankins PA [facility] [place] [address] documented as of this encounter Visit Diagnoses Not on filedocumented in this encounter Care Teams Adhesive Primer Relationship Specialty Start Date End Date Lena Womack APRN PCP - General Family Medicine 08/02/22 documented as of this encounter
--- OUTSIDE RECORDS SUMMARY | 2024-02-12 18:05 | XMS_ITS | Encounter Summary ---
Author Organization [facility] Address [facility] [place] [address] Care Team Providers Care Flatbed Driver Name Role Phone Lena Womack APRN Primary Care Provider [phone] Encounter Details Date Type Department Care Team (Latest Contact Info) Description 03/14/2023 1:00 PM EDT - 03/14/2023 11:59 PM EDT Hospital Encounter XRay at [address] [place] [address] Tien Zurita MD [facility] [place] [address] Cervical myelopathy Discharge Disposition: Home Social History Tobacco Use Types Packs/Day Years Used Date Smoking Tobacco: Former Cigarettes 0.3 35 Smokeless Tobacco: Never Alcohol Use Standard Drinks/Week Comments Yes 0 (1 standard drink = 0.6 oz pur e alcohol) 1-2x a year [facility] Inpatient Questions Answer Date Recorded [...] Sig Dispensed Refills Start Date End Date acetaminophen (Tylenol) 325 mg tablet Take 3 [...] 03/07/2024 10:00 AM EDT Appointment XRay at [address] [place] [address] Tien Zurita MD [facility] [place] [address] 03/07/2024 10:40 AM EDT Office Visit Neurosurgery at [facility] [place] [phone] Angel Hankins PA [facility] [place] [address] documented as of this encounter Procedures Procedure Name Priority Date/Time Associated Diagnosis Comments XR CERVICAL SPINE 2 OR 3 VIEWS Routine 03/14/2023 1:12 PM EDT Cervical myelopathy documented in this encounter Results * XR Cervical Spine 2 or 3 Views (03/14/2023 1:12 PM EDT) Anatomical Region Laterality Modality C-spine N/A Digital Radiogra phy Impressions 03/14/2023 2:08 PM EDT Status post cervicothoracic posterior instrumented fusion without radiographic finding of complication or acute abnormality. Thank you for letting us participate in the care of this patient. ??If you are a health care provider and have any questions regarding this report, please contact the number below. ??For patients who have questions please contact the health career placement services counselor that requested your imaging first. ? Electronically signed by: Svetlana Wellington MD, [facility] ([phone]), at 03/14/2023 2:08 PM Narrative 03/14/2023 2:08 PM EDT EXAMINATION: XR CERVICAL SPINE 2 OR 3 VIEWS CLINICAL HISTORY: AP, lateral, and swimmer's view TECHNIQUE: AP, lateral and swimmer's views of the cervical spine, upright COMPARISON: Radiographs December 03 and January 17, 2023 FINDINGS: The lateral view images through the C6 vertebral body. On the swimmer's view, the vertebral body margins remain indistinct, but there is no malalignment at the posterior cortices. Decompression C5-7 with posterior instrumented fusion C4-T2. Transpedicular screws and rods are intact without adjacent lucency, change in position, fracture or spine malalignment. Multilevel spondylosis and facet osteoarthropathy are unchanged. The patient is edentulous. Survey of skull base, maxillofacial structures, prevertebral soft tissues and thoracic inlet is otherwise normal. Procedure Note Svetlana Wellington MD - 03/14/2023 EXAMINATION: XR CERVICAL SPINE 2 OR 3 VIEWS CLINICAL HISTORY: AP, lateral, and swimmer's view TECHNIQUE: AP, lateral and swimmer's views of the cervical spine, upright COMPARISON: Radiographs December 03 and January 17, 2023 FINDINGS: The lateral view images through the C6 vertebral body. On the swimmer'sview, the vertebral body margins remain indistinct, but there is no malalignmentat the posterior cortices. Decompression C5-7 with posterior instrumented fusion C4-T2.Transpedicular screws and rods are intact without adjacent lucency, change in position, fracture or spine malalignment. Multilevel spondylosis and facet osteoarthropathy are unchanged. The patient is edentulous. Survey of skull base, maxillofacialstructures, prevertebral soft tissues and thoracic inlet is otherwise normal. IMPRESSION Status post cervicothoracic posterior instrumented fusion withoutradiographic finding of complication or acute abnormality. Thank you for letting us participate in the care of this patient. If youare a health care provider and have any questions regarding this report,please contact the number below. For patients who have questions please contactthe health career placement services counselor that requested your imaging first. Electronically signed by: Svetlana Wellington MD, [facility] [place]([phone]), at 03/14/2023 2:08 PM Chauhan A Echt IMG DX ORDERABLES documented in this encounter Visit Diagnoses Diagnosis Cervical myelopathy Cervical spondylosis with myelopathy documented in this encounter Care Teams Flatbed Driver Relationship Specialty Start Date End Date Lena Womack, FINANCIAL PLANNING ADVISOR PCP - General Family Medicine 08/02/22 documented as of this encounter
--- OUTSIDE RECORDS SUMMARY | 2024-02-12 18:05 | XMS_ITS | Encounter Summary ---
Author Organization [facility] Address [facility] [place] [address] Care Team Providers Care Pharmacy Picking Tech Name Role Phone BrunoLena eddy Ronal MEJIA Primary Care Provider [phone] Encounter Details Date Type Department Care Team (Latest Contact Info) Description 08/08/2023 Travel Social History Tobacco Use Types Packs/Day [...] 03/07/2024 10:00 AM EDT Appointment XRay at [address] [place] [address] Tien Zurita MD [facility] [address] 03/07/2024 10:40 AM EDT [place] [address] Angel Hankins PA [facility] [place] [address] documented as of this encounter Visit Diagnoses Not on filedocumented in this encounter Care Teams Pharmacy Picking Tech Relationship Specialty Start Date End Date Lena Womack APRN PCP - General Family Medicine 08/02/22 documented as of this encounter
--- OUTSIDE RECORDS SUMMARY | 2024-02-12 18:05 | XMS_ITS | Clinical Summary ---
Author Organization [facility] Address [address] [place] [address] Care Team Providers Care Career Development Director Name Role Phone Sailaja Ross LOBBYIST Primary Care Provider [phone] Social History Tobacco Use Types Packs/Day Years Used Date Smoking Tobacco: Never Assessed Sex and Gender Information Value Date Recorded Sex Assigned at Not on file Gender Identity Not on file Sexual Orientation Not on file Plan of Treatment Health Maintenance Due Date Last Done Comments Hepatitis C Screen 1960 RSV Immunization ( o r 60+ Years) (1 - 1-dose 60+ series) 2020 COVID-19 Vaccine ( season) 2024 Care Teams Career Development Director Relationship Specialty Start Date End Date Sailaja Ross, [facility] [address] [place] [address] PCP - General 12/19/09
--- OUTSIDE RECORDS SUMMARY | 2024-02-12 18:05 | XMS_ITS | Encounter Summary ---
Author Organization [facility] [place] [address] Care Team Providers Care Trombone Slide Assembler Name Role Phone Lena Womack APRN Primary Care Provider [phone] Encounter Details Date Type Department Care Team (Late st Contact Info) Description 11/14/2023 [place] [phone] Marquita Dumont, RN Social History Tobacco Use Types Packs/Day Years [...] encounter Miscellaneous Notes * Telephone Encounter - Marquita Dumont RN - 11/14/2023 9:24 AM EDT Reaching out to assist patient in scheduling the MRI (C-spine) ordered on 08/08/[address] Zurita. LVM asking patient to call the MRI Dept [phone] to schedule imaging. documented in this encounter Plan of Treatment Upcoming Encounters Date Type Department Care Team (Late st Contact Info) Description 03/07/2024 10:00 AM EDT Appointment XRay at [address] [place] [address] Tien Zurita MD [facility] [place] [address] 03/07/2024 10:40 AM EDT Office Visit Neurosurgery at [facility] [place] [phone] Angel Hankins PA [facility] [place] [address] documented as of this encounter Visit Diagnoses Not on filedocumented in this encounter Care Teams Trombone Slide Assembler Relationship Specialty Start Date End Date Lena Womack APRN PCP - General Family Medicine 08/02/22 documented as of this encounter
--- OUTSIDE RECORDS SUMMARY | 2024-02-12 18:05 | XMS_ITS | Encounter Summary ---
Author Organization [facility] Address [facility] [place] [address] Care Team Providers Care Cattle Alley Worker Name Role Phone BrunoLena eddy Ronal MEJIA Primary Care Provider [phone] Encounter Details Date Type Department Care Team (Latest Contact Info) Description 01/17/2023 Travel Social History Tobacco Use Types Packs/Day [...] 03/07/2024 10:00 AM EDT Appointment XRay at [address] [place] [address] Tien Zurita MD [facility] [place] [address] 03/07/2024 10:40 AM EDT Office [place] [address] Angel Hankins PA [facility] [place] [address] documented as of this encounter Visit Diagnoses Not on filedocumented in this encounter Care Teams Cattle Alley Worker Relationship Specialty Start Date End Date Lena Womack APRN PCP - General Family Medicine 08/02/22 documented as of this encounter
--- OUTSIDE RECORDS SUMMARY | 2024-02-12 18:05 | XMS_ITS | Clinical Summary ---
Author Organization [facility] Address [facility] [place] [address] Care Team Providers Care Manager Bench Name Role Phone Lena Womack APRN Primary Care Provider [phone] Allergies Active Allergy Reactions Criticality Noted Date Comments Allergenic Extracts 03/19/2013 Pollen Tramadol 09/10/2014 Low potassium Sertraline Nausea And Vomiting 07/04/2012 Medications Medication Sig Dispensed Refills Start Date End Date Status multivitamin (THERAGRAN) tablet Take 1 tablet by mouth daily. Active atenolol (TENORMIN) 50 mg tablet Take 50 mg by mouth daily. Active QUEtiapine (SEROquel) 100 mg tablet Take 100 mg by mouth nightly. Active gabapentin (NEURONTIN) 300 mg Capsule Take 600 mg by mouth 3 times daily. Active amitriptyline (ELAVIL) 100 mg Tablet Take 100 mg by mouth nightly. Active pantoprazole EC (Protonix) 40 mg Tablet, Delayed Release (E.C.) Take 1 tablet by mouth 2 times daily. 120 tablet 08/08/2022 Active lisinopriL (Zestril) 10 mg Tablet Take 1 tablet by mouth daily. 90 tablet 2 08/09/2022 Active Mag [address] tablet Take 64 mg by mouth every evening. 09/11/2022 Active sucralfate (Carafate) 1 gram tablet Take 1 g by mouth 4 times daily. 09/03/2022 Active loratadine (Claritin) 10 mg Tablet Take 10 mg by mouth daily. Active methocarbamoL (Robaxin) 500 mg tablet Take 1,000 mg by mouth 2 times daily. 11/27/2022 Active traMADoL (Ultram) 100 mg tablet Take 100 mg by mouth 2 times daily as needed. 11/27/2022 Active docusate sodium (Colace) 100 mg capsule Take 100 mg by mouth daily. Active b complex vitamins Tablet Take 1 tablet by mouth daily. Active cholecalciferol, Vitamin D3, 50 mcg (2,000 unit) Capsule Take 2,000 Units by mouth daily. Active diazePAM (Valium) 5 mg tablet Take 1 tablet by mouth every 6 hours as needed (muscle spasms). 30 tablet 12/16/2022 Active acetaminophen (Tylenol) 325 mg tablet Take 3 tablets by mouth every 6 hours. 30 tablet 12/16/2022 Active Additional Information Patient taking differently: 650 mgOral EVERY 6 HOURS, Reported on 01/17/2023 oxyCODONE (Roxicodone) 10 mg tablet Take 1-3 tablets by mouth every 3 hours as needed for Pain (If your pain is 4-6 take 10mg; if 7-8 take 20mg; if 9-10 take 30mg). 30 tablet 12/16/2022 Active senna-docusate (Pericolace) 8.6-50 mg Tablet Take 1-2 tablets by mouth 2 times daily as needed for Constipation. 30 tablet 12/16/2022 Active levalbuteroL (XOPENEX HFA) 45 mcg/actuation HFA Aerosol Inhaler .COMPLEX 11/20/2013 Active albuteroL 90 mcg/actuation HFA Aerosol Inhaler INHALE TWO PUFFS BY MOUTH EVERY 4 TO 6 HOURS NEEDED 06/03/2023 Active cyclobenzaprine (Flexeril) 10 mg tablet Take 1 tablet by mouth Three Times Daily for DHE. 07/26/2023 Active Active Problems Problem Noted Date Diagnosed Date Cervical myelopathy 11/30/2022 Serous adenofibroma of left ovary 08/16/2022 Moderate opioid use disorder 08/03/2022 Thoracic compression fracture, sequela Herniation of lumbar intervertebral disc with ra diculopathy 08/03/2022 Adnexal mass 08/02/2022 Primary osteoarthritis of right knee 04/27/2016 Carpal tunnel syndrome, bilateral 08/06/2015 Trigger thumb of left hand 08/06/2015 Knee pain, bilateral 02/27/2015 Osteoarthritis of patellofemoral joint 5 Cervical spondylosis without myelopathy 07/16/19 15 Cervical disc displacement 07/16/2014 Cervical radiculitis 07/16/2014 Occipital neuralgia 07/16/2014 Neck pain on left side 07/04/2012 Breast hypertrophy Encounters Date Type Department Care Team Description 02/07/2024 Telephone Neurosurgery at [place] [phone] Tien Zurita MD Bumped Appointment (Master schedule change.) 12/28/2023 10:15 AM EDT - 12/28/2023 11:59 PM EDT Hospital Encounter MRI at [place] [phone] Tien Zurita MD Discharge Disposition: Home 12/28/2023 10:10 AM EDT - 12/28/2023 10:14 AM EDT Hospital Encounter MRI at [place] [phone] Tien Zurita MD Cervical myelopathy Discharge Disposition: Home 12/28/2023 Travel 12/13/2023 Telephone Administration [place] [phone] Angel Olvera RN Appointment (MRI) 11/14/2023 Telephone Administration [place] [phone] Marquita Dumont RN from Last 3 Months Family History Medical History Relation Comments Alcohol Use Disorder Brother 1 Breast Cancer Maternal Aunt Alcohol Use Disorder Sister 1 Cerebrovascular Accident Sister 1 Migraines Sister 1 Migraines Sister 2 Arthritis Neg Hx Asthma Neg Hx Cancer Neg Hx Heart Disease Neg Hx Substance Use Disorder Neg Hx Relation Status Comments Brother 1 Alive Brother 2 Alive Father Maternal Aunt Mother Alive Sister 1 Alive Sister 2 Alive Sister 3 Alive Social History Tobacco Use Types Packs/Day Years Used Date Smoking Tobacco: Former Cigarettes 0.3 35 Smokeless Tobacco: Never Tobacco Cessation:Counseling Given: Not Answered Alcohol Use Standard Drinks/Week Comments Yes 0 [...] on file Sexual Orientation Not on file Last Filed Vital Signs Vital Sign Reading Time Taken Comments Blood Pressure 129/86 12/16/2022 11:44 AM EDT Pulse 82 12/15/2022 11:28 AM EDT Temperature 36.7 ??C (98.1 ??F) 12/16/2022 11:44 AM E DT Respiratory Rate 16 12/16/2022 11:44 AM EDT Oxygen Saturation 95% 12/16/2022 11:44 AM EDT Inhaled Oxygen Concentration - - Weight 97.5 kg (215 lb) 08/08/2023 3:28 PM EST Height 166.4 cm (5' 5.5) 08/08/2023 3:28 PM EST Body Mass Index 35.23 08/08/2023 3:28 PM EST Plan of Treatment Upcoming Encounters Date Type Department Care Team (Late st Contact Info) Description 03/07/2024 10:00 AM EDT Appointment XRay at [address] [place] [address] Tien Zurita MD [facility] [place] [address] 03/07/2024 10:40 AM EDT Office Visit Neurosurgery at [facility] [place] [phone] Angel Hankins PA [facility] [place] [address] Health Maintenance Due Date Last Done Comments CT Colonography 1960 Colonoscopy 1960 Colorectal Cancer Screening 1960 FIT DNA 1960 FIT 1960 Sigmoidoscopy (10 year) with FIT yearly 1960 Sigmoidoscopy 1960 Pneumococcal Vaccine: At-Ris k 5-64yrs (1 of 2 - PCV) 1966 HIV screen 1978 Hepatitis C Screening 1978 Lipid Screening 1978 Tdap adult 11/05/1979 Tetanus vaccine 11/05/1979 HPV test 1990 PAP Smear 1990 Breast Cancer Share Decision Needed 2000 Zoster vaccine (1 of 2) 2010 Breast Cancer screening 11/17/2017 11/18/2015, 08/13 Covid-19 Vaccine (1 - 2022-2 4 season) 2024 Influenza (Flu) vaccine (1 o f 1 - Influenza standard series) 02/05/2024 Diabetes Screening (HgbA1C o r Glucose) 12/04/2025 12/04/2022, 12/03/2022, 12/02/2022, Additional history exists Medical Devices Implanted Type Area Line Driver Device Identifier Shelf Expiration Date Model / Serial / Lot Screw Spinal 5.5x25mm Posterior Cervical Mltaxl Sld Ti ([id number]) (Autoreq) - [id number] Implanted:Qty: 1 on 12/02/2022 by Tien Zurita MD at [facility] IMPLANTS N/A: Spine Cervical [employer] - [employer] 08/05/2030 [id number] / / [id number] Arturo Spinal [id number] Posterior Cervical Prebent Pre Cut Cocr ([id number]) (Autoreq) - [id number] Implanted:Qty: 1 on 12/02/2022 by Tien Zurita MD at [facility] IMPLANTS N/A: Spine Cervical [employer] - [employer] 07/13/2030 [id number] / / [id number] Arturo Spinal 3.3x093xa Posterior Cervical Prebent Pre Cut Cocr ([id number]) ([employer]oreq) - [id number] Implanted:Qty: 1 on 12/02/2022 by Tien Zurita MD at [facility] IMPLANTS N/A: Spine Cervical [employer] - [employer] 07/13/2030 [id number] / / [id number] Screw Spinal Set Posterior Cervical Mltaxl Sld Pt Infinity ([id number]) ([employer]oreq) - [id number] Implanted:Qty: 10 on 12/02/2022 by Tien Zurita MD at [facility] IMPLANTS N/A: Spine Cervical [employer] [id number] / / Screw Spinal 5.5x25mm Posterior Cervical Mltaxl Sld Ti ([id number]) ([employer]oreq) - [id number] Implanted:Qty: 1 on 12/02/2022 by Tien Zurita MD at [facility] IMPLANTS N/A: Spine Cervical [employer] - [employer] 08/05/2030 [id number] / / [id number] Screw Spinal 5.5x25mm Posterior Cervical Mltaxl Sld Ti ([id number]) ([employer]oreq) - [id number] Implanted:Qty: 1 on 12/02/2022 by Tien Zurita MD at [facility] IMPLANTS N/A: Spine Cervical [employer] - [employer] 06/15/2026 [id number] / / [id number] Screw Spinal 5.5x25mm Posterior Cervical Mltaxl Sld Ti ([id number]) ([employer]oreq) - [id number] Implanted:Qty: 1 on 12/02/2022 by Tien Zurita MD at [facility] IMPLANTS N/A: Spine Cervical [employer] - [employer] 03/19/2030 [id number] / / [id number] Connector Spinal 10mm Lat Occipito Cervical Opn Ti ([id number]) ([employer]oreq) - [id number] Implanted:Qty: 1 on 12/02/2022 by Tien Zurita MD at [facility] IMPLANTS N/A: Spine Cervical [employer] - [employer] [id number] / / Screw Spinal 3.5x14mm Posterior Cervical Mltaxl Sld Ti ([id number]) ([employer]oreq) - [id number] Implanted:Qty: 6 on 12/02/2022 by Tien Zurita MD at [facility] IMPLANTS N/A: Spine Cervical [employer] [id number] / / Graft Bone Filler 6cc Dbf Injectable Rachel ([id number]) ([employer]oreq) - [id number] Implanted:Qty: 1 on 12/02/2022 at [facility] IMPLANTS Midline: Spine Cervical [employer] 10/18/2024 [id number] / [id number] / Procedures Procedure Name Priority Date/Time Associated Diagnosis Comments MRI CERVICAL SPINE WO CONTRAST Routine 12/28/2023 11:43 AM EDT Cervical myelopathy BASIC METABOLIC PANEL Routine 12/04/2022 6:25 AM EDT MAMMO SCREENING CAD AND ALEX BILATERAL Routine 11/18/2015 12:58 PM EDT Visit for screening mammogram from Last 3 Months or Most Recently Relevant to Health Maintenance Results * MRI Cervical Spine wo Contrast (Generic) (12/28/2023 11:43 AM EDT) [employer] Signature WORKSTATION ID [id number] RAD Anatomical Region Laterality Modality C-spine Magnetic [...] who have questions please contact the health ambulatory care coordinator that requested your imaging first. ? Narrative 12/29/2023 11:33 AM EDT EXAMINATION: MRI [...] patients who have questions please contactthe health ambulatory care coordinator that requested your imaging first. Chauhan A Yudith AKBAR IMDelano MRI ORDERABLES * Basic Metabolic Panel (non-fasting) (12/04/2022 6:25 AM EDT) Glucose 117 65 - 199 mg/dL [facility] Comment:Diabetes: >=200 mg/d L plus symptoms Blood Urea Nitrogen 8 8 - 18 mg/dL [facility] Creatinine 0.76 0.70 - 1.20 mg/dL [facility] Sodium 138 135 - 145 mmol/L [facility] Potassium 3.5 3.5 - 5.0 mmol/L [facility] Comment: Please note: ??Patients with WBC >100,000 may have falsely elevated Potassium levels. ??For accurate Potassium quantification in these patients send serum separator tube (gold top) for subsequent determinations. ??Contact the Clinical Chemistry Laboratory if there are any questions. Chloride 101 98 - 107 mmol/L [facility] Carbon Dioxide 27 22 - 31 mmol/L [facility] Anion Gap 10 5 - 15 mmol/L [facility] Calcium 9.3 8.5 - 10.5 mg/dL [facility] Est Glomerular Filtration Rate 89 >=60 mL/min/1. 73 m?? [facility] Comment: This patient's estimated GFR was calculated using the 2020 CKD-EPI equation. The estimated GFR can vary from the measured GFR by up to 30% in the absence of rapidly changing kidney function. Assessment of the estimated GFR is not appropriate when creatinine concentrations are rapidly changing. For clinical situations in which a more precise estimate of GFR is necessary, consider alternative methods of GFR estimation such as a 24-hour urine creatinine clearance. Assignment of CKD stage 1-5 for patients with an eGFR near the transition point between stages may be based on clinical assessment of muscle mass and symptoms in addition to eGFR. Blood 12/04/2022 6:25 AM EDT 12/04/2022 6:50 AM EDT Narrative Resulting Agency Comment Spec In Lab Tien Zurita MD CHEMISTRY ORDERABLES [facility] [place] [address] * Mammo Digital Bilateral Screening With CAD and Tomosynthesis (11/18/2015 12:58 PM EDT) Anatomical Region Laterality Modality Breast Bilateral Mammography Narrative 11/19/2015 8:26 AM EDT EXAMINATION: MAMMO DIGITAL BILATERAL SCREENING WITH CAD AND TOMOSYNTHESIS CLINICAL HISTORY: ROUTINE MAMMO, LAST MAMMO 08/13/13, PT HAD BR REDUCTION TECHNIQUE: CC and MLO views were obtained of the bilateral breast. Computer aided detection was used. 3D tomosynthesis images were obtained in addition to 2D images. FINDINGS: Breast density: There are scattered areas of fibroglandular density. Left breast. ??There are no suspicious microcalcifications, masses, or areas of distortion. No changes compared to prior studies. The Right breast is abnormal and additional imaging is required. 2 small clusters of increased calcifications are noted in the upper and in the inferior medial right breast, respectively. BIRADS CATEGORY 0: Additional imaging required Sailaja Ross APRN IMG MAMMO ORDERABLES from Last 3 Months or Most Recently Relevant to Health Maintenance Advance Directives Documents on File Type Date Recorded Patient Mainframe Systems Programmer Expl anation Advance Directives and Janneth saul Will 12/09/2011 2:17 PM * Attempt Cardiopulmonary Resuscitation - Inpatient (Latest Code Status on File) Date Activated Date Inactivated Comments 11/30/2022 11:06 PM 12/16/2022 3:00 PM Question Answer Comments Code Status decision made by: Patient * Attempt Cardiopulmonary Resuscitation - Inpatient Date Activated Date Inactivated Comments 08/02/2022 4:26 AM 08/08/2022 5:39 PM Question Answer Comments Code Status decision made by: Patient Care Teams Manager Bench Relationship Specialty Start Date End Date Lena Womack APRN PCP - General Family Medicine 08/02/22
--- OUTSIDE RECORDS SUMMARY | 2024-02-12 18:05 | XMS_ITS | Encounter Summary ---
Author Organization [facility] Address [facility] [place] [address] Care Team Providers Care Director Building Name Role Phone Shanta Lena Villeda APRN Primary Care Provider [phone] Reason for Visit * Reason Onset Date Comments Bumped Appointment 02/07/2024 Master schedu le change. Encounter Details Date Type Department Care Team (Late st Contact Info) Description 02/07/2024 Telephone [place] [phone] Tien Zurita MD [facility] [place] [address] Bumped Appointment (Master schedule change.) Social History Tobacco Use Types Packs/Day Years Used Date Smoking Tobacco: Former Cigarettes 0.3 35 Smokeless Tobacco: Never Alcohol Use Standard Drinks/Week Comments Yes 0 (1 standard drink = 0.6 oz pur e alcohol) 1-2x a year [facility] Inpatient Questions Answer Date Recorded Does Anyone [...] encounter Miscellaneous Notes * Telephone Encounter - Rafaela Delgado - 02/09/2024 10:56 AM EDT Patient rescheduled to 03/07/2024 with DPS * Telephone Encounter - Rafaela Delgado - 02/07/2024 11:38 AM EDT LM for patient to call back regarding appointments. 02/13/2024 appointment with XR to has been rescheduled to 02/15/2024, please confirm with patient. documented in this encounter Plan of Treatment Upcoming Encounters Date Type Department Care Team (Late st Contact Info) Description 03/07/2024 10:00 AM EDT Appointment XRay at [address] [place] [address] Tien Zurita MD [facility] [address] 03/07/2024 10:40 AM EDT Office [place] [address] Angel Hankins PA [facility] [place] [address] documented as of this encounter Visit Diagnoses Not on filedocumented in this encounter Care Teams Director Building Relationship Specialty Start Date End Date Lena Womack APRN PCP - General Family Medicine 08/02/22 documented as of this encounter
--- OUTSIDE RECORDS SUMMARY | 2024-02-12 18:05 | XMS_ITS | Encounter Summary ---
Author Organization [facility] [place] [address] Care Team Providers Care Cd Reactor Operator Head Name Role Phone Brunonunu Lena Villeda APRN Primary Care Provider [phone] Reason for Visit * Reason Onset Date Comments Appointment 12/13/2023 MRI Encounter Details Date Type Department Care Team (Late st Contact Info) Description 12/13/2023 [place] [address] Angel Olvera, RN Appointment (MRI) Social History Tobacco Use Types Packs/Day Years [...] encounter Miscellaneous Notes * Telephone Encounter - Angel Olvera, RN - 12/13/2023 3:08 PM EDT Call to schedule MRI C-Spine wo ordered 08/08/2023. Pt transferred to [phone] to schedule imaging. documented in this encounter Plan of Treatment Upcoming Encounters Date Type Department Care Team (Late st Contact Info) Description 03/07/2024 10:00 AM EDT Appointment XRay at [address] [place] [phone] Tien Zurita MD [facility] [place] [address] 03/07/2024 10:40 AM EDT Office Visit Neurosurgery at [facility] [place] [phone] Angel Hankins, PA [facility] [place] [address] documented as of this encounter Visit Diagnoses Not on filedocumented in this encounter Care Teams Cd Reactor Operator Head Relationship Specialty Start Date End Date Lena Womack APRN PCP - General Family Medicine 08/02/22 documented as of this encounter
--- OUTSIDE RECORDS SUMMARY | 2024-02-12 18:05 | XMS_ITS | Encounter Summary ---
Author Organization [facility] Address [facility] [place] [address] Care Team Providers Care Clinical Application Manager Name Role Phone Shanta Lena Villeda APRN Primary Care Provider [phone] Encounter Details Date Type Department Care Team (Late st Contact Info) Description 03/14/2023 2:00 PM EDT Office Visit [place] [phone] Tien Zurita MD [facility] [place] [address] Cervical myelopathy Social History Tobacco Use Types Packs/Day Years Used Date Smoking Tobacco: Former Cigarettes 0.3 35 Smokeless Tobacco: Never Alcohol Use Standard Drinks/Week Comments Yes 0 (1 standard drink = 0.6 oz pur e alcohol) 1-2x a year [facility] Inpatient Questions Answer Date Recorded Does [...] on file documented as of this encounter Progress Notes * Tien Zurita MD - 03/14/2023 2:00 PM EDT [facility] Neurosurgery Clinic Progress Note CC: 3-month postoperative follow-up Interval History: 62 y.o. year old female, w/severe degenerative cervical myelopathy with C6-7 OLF s/p C4-T2 PSIF with C5-7 laminectomy on 12/21/2022. Patient reports continued improvement since her last visit with near full return of her left arm strength, and resolved upper extremity paresthesias/tingling. She reports some ongoing numbness in thelower extremities, but slightly improved from preop. She also endorses that her balance is slightlyimproved from preop, is no longer using a wheelchair and is able to ambulate independently with a ro llator. She still has moderate neck pain, but this has also been gradually improving. Patient denies any new weakness, numbness or loss of sensation, bowel/bladder incontinence, Redness, swelling or drainage from the incision site. Physical Exam EXAM: NAD, AAOx3 Gait wide-based with left leg circumduction Delt Bic Tri Gri Intr RT 5 5 5 5 5 LT 5 5 5 4++ 4++ Ilio Quad TibA EHL Gastroc RT 5 5 5 5 5 LT 4+ 4+ 5 5 5 Sensation intact to light touch, except for left hand and bilateral anterior thighs No Yates's Incision well-healed, no erythema, tenderness to palpation, or palpable collections Imaging independently reviewed: AP, lateral, and swimmer's view demonstrate intact hardware from C4-T2 without evidence of screw lucency or hardware failure. Cervical spine alignment is positive but well-maintained. ASSESSMENT AND PLAN 62 y.o. year old female, w/ severe degenerative cervical myelopathy with C6-7 OLF s/p C4-T2 PSIF with C5-7 laminectomy with continued improvement now 3 months after surgery. She was encouraged to continue with her physical therapy program and to continue ambulating as muchas she is able. During the initial visit when asked about cigarette use, patient denied. However atthe end of the visit the patient and her did endorse that she is smoking tobacco products, with the intention of quitting. I emphasized the need to quit smoking with the increased risk of hardware failure and bony nonunionrequiring revision surgery. She was also encouraged to stay more active and to ambulate as much as possible. I requested the patient follow-up again in approximately 3 months with repeat x- rays at that time. Total time, 20 minutes, spent pre-charting, personal independent review of imaging, coordinating care, counseling the patient, and charting the visit. Tien Zurita MD Assembler Trim Section of Neurosurgery Department of Surgery [facility] documented in this encounter Plan of Treatment Upcoming Encounters Date Type Department Care Team (Late st Contact Info) Description 03/07/2024 10:00 AM EDT Appointment XRay at [address] [place] [address] Tien Zurita MD [facility] [place] [address] 03/07/2024 10:40 AM EDT Office Visit Neurosurgery at [facility] [place] [address] Angel Hankins PA [facility] [place] [address] documented as of this encounter Visit Diagnoses Diagnosis Cervical myelopathy Cervical spondylosis with myelopathy documented in this encounter Care Teams Clinical Application Manager Relationship Specialty Start Date End Date Lena Womack APRN PCP - General Family Medicine 08/02/22 documented as of this encounter
--- OUTSIDE RECORDS SUMMARY | 2024-02-12 18:05 | XMS_ITS | Encounter Summary ---
[place] [address] Care Team Providers Care Promotions Intern Name Role Phone Lena Womack APRN Primary Care Provider [phone] Reason for Referral * Diagnostic Test (Routine) - Closed Specialty Diagnoses / Procedures Referred By Contac t Referred To Contact Radiology Diagnoses Cervical myelopathy Procedures MRI Cervical Spine wo Contrast (Generic) Tien Zurita MD [facility] [place] [address] [place] [address] Referral ID Status Reason Start Date Expiration Date V isits Requested Visits Authorized [id number] Closed Specialty Service Requested 12/28/2023 02/25/2024 1 1 Reason for Visit * Diagnostic Test (Routine) - Closed Specialty Diagnoses / Procedures Referred By Contac t Referred To Contact Radiology Diagnoses Cervical myelopathy Procedures MRI Cervical Spine wo Contrast (Generic) Tien Zurita MD [facility] [place] [address] [place] [address] Referral ID Status Reason Start Date Expiration Date V isits Requested Visits Authorized [id number] Closed Specialty Service Requested 12/28/2023 02/25/2024 1 1 Encounter Details Date Type Department Care Team (Latest Contact Info) Description 12/28/2023 10:10 AM EDT - 12/28/2023 10:14 AM EDT Hospital Encounter MRI at [facility] [place] [address] Tien Zurita MD [facility] [place] [address] Cervical myelopathy Discharge Disposition: Home Social History Tobacco Use Types Packs/Day Years Used Date Smoking Tobacco: Former Cigarettes 0.3 35 Smokeless Tobacco: Never Alcohol Use Standard Drinks/Week Comments Yes 0 (1 standard drink = 0.6 oz pur e alcohol) 1-2x a year [facility] Inpatient Questions Answer Date Recorded Does Anyone [...] on file documented as of this encounter Discharge Instructions * Discharge Instructions* Herb Leonard RN - 12/28/2023 8:39 AM EDT [facility] Department of Radiology MRI Nursing Katheryn Carranza 1960 [id number] December 28, 2023 You have received oral sedation medication for your MRI to help with claustrophobia and anxiety. This medication affects your judgement and reaction time. 1. Do not drive, operate machinery, drink alcoholic beverages, or make important decisions for 24 hours. 2. Be careful on stairs, as you may be unsteady on your feet. 3. You may eat a regular diet as tolerated. 4. If you smoke, do not smoke if you are alone. Call with any questions or concerns: During regular office hours call: [phone]. If it is afterregular office hours, weekends or holidays, please call [phone] and ask to speak to the Aviation Operations Specialist marketing community liaison for Interventional Radiology. Updated 10/23/21 documented in this encounter Medications at Time of Discharge [...] mouth nightly. documented as of this encounter Progress Notes * Ava Mathis RN - 12/28/2023 8:59 AM EDT MRI PRE-SEDATION ASSESSMENT NOTE NAME: Katheryn Carranza AGE: 63 y.o. : 1960 [address] [facility] [address] Female [phone] (home) Telephone Information: Lena Womack, JACKIE No primary care provider on file. Allergies Allergen Reactions Allergenic Extracts Pollen Tramadol Low potassium Zoloft [Sertraline] Nausea And Vomiting Date/Time of call: December 26, 2023/8:59 AM/ SCHEDULED SCAN: MRI CERVICAL SPINE WO CONTRAST [[id number]] Have you had a PREVIOUS MRI SCAN? Yes Are you claustrophobic or anxious in the scanner? Yes CAN YOU LAY FLAT? Yes Do you have trouble breathing when lying flat? No DO YOU HAVE ANY INVOLUNTARY MOVEMENTS? No DO YOU TAKE PAIN MEDICATION ON A DAILY BASIS? No PLAN: Ativan You must have a delivery driver present when you check in. This patient has been informed that they require a delivery driver to drive them home after this procedure. In the absence of a delivery driver, IR will not be able tosedate for your scan. Pt verbalized understanding of these instructions during the pre-procedure education via phone. Yes Name of delivery driver: Phone number: PRIOR SCAN DATE/S SEDATION TYPE SUCCESSFUL 09/29/12 MRI lumbar spine Ativan 1mg po x1 yes 03/04/15 MRI Brain Ativan 1 mg x 2. Yes 12/28/23 MRI lumbar spine Ativan 1mg x Yes Revised 11/30/2022 documented in this encounter Plan of Treatment Upcoming Encounters Date Type Department Care Team (Late st Contact Info) Description 03/07/2024 10:00 AM EDT Appointment XRay at [address] [place] [phone] Tien Zurita MD [facility] [place] [address] 03/07/2024 10:40 AM EDT Office Visit Neurosurgery at [facility] [place] [address] Angel Hankins PA [facility] [place] [address] documented as of this encounter Procedures Procedure Name Priority Date/Time Associated Diagnosis Comments MRI CERVICAL SPINE WO CONTRAST Routine 12/28/2023 11:43 AM EDT Cervical myelopathy documented in this encounter Results * MRI Cervical Spine wo Contrast (Generic) (12/28/2023 11:43 AM EDT) [employer] WORKSTATION ID [id number] [facility] Anatomical Region Laterality Modality C-spine Magnetic Resonan [...] have questions please contact the health career developer that requested your imaging first. ? Narrative [...] who have questions please contactthe health career developer that requested your imaging first. Electronically signed by: Angel Rodriguez [facility]([phone]), at 12/29/2023 11:33 AM Chauhan A Echt IMG MRI ORDERABLES documented in this encounter Visit Diagnoses Diagnosis Cervical myelopathy Cervical spondylosis with myelopathy documented in this encounter Administered Medications Inactive Administered Medications - up to 3 most recent administrations Medication Order MAR Action Action Date Dose Rate Site LORazepam (Ativan) tablet 1 mg 1 mg, Oral, EVERY 30 MIN PRN, 2 doses, Starting on Tue12/28/23 at 0803, Until Tue12/29/23 at 0434, Anxiety, Minimal Sedation per Department of Radiology Adult Minimal Sedation Guidelines: Give 50 minutes prior to scan., Angio/IR (Day of Procedure), Routine Given 12/28/2023 10:29 AM EDT 1 mg documented in this encounter Care Teams Promotions Intern Relationship Specialty Start Date End Date Lena Womack, CLINICAL INTERVIEWER PCP - General Family Medicine 08/02/22 documented as of this encounter
--- OUTSIDE RECORDS SUMMARY | 2024-02-12 18:05 | XMS_ITS | Encounter Summary ---
[place] [address] Care Team Providers Care Internet Cafe Manager Name Role Phone Shanta Lena Villeda APRN Primary Care Provider [phone] Reason for Referral * Diagnostic Test (Routine) - Closed Specialty Diagnoses / Procedures Referred By Cosmo cortez Referred To Contact Radiology Diagnoses Cervical myelopathy Procedures MRI Cervical Spine wo Contrast (Generic) Tien Zurita MD [facility] [place] [address] [place] [address] Referral ID Status Reason Start Date Expiration Date V isits Requested Visits Authorized [id number] Closed Specialty Service Requested 12/28/2023 02/25/2024 1 1 Reason for Visit * Reason Comments Follow-up Encounter Details Date Type Department Care Team (Late st Contact Info) Description 08/08/2023 3:40 PM EST Office Visit [place] [address] Tien Zurita MD [facility] [place] [address] Cervical myelopathy Social History Tobacco Use Types [...] on file documented as of this encounter Last Filed Vital Signs Vital Sign Reading Time Taken Comments Blood Pressure - - Pulse - - Temperature - - Respiratory Rate - - Oxygen Saturation - - Inhaled Oxygen Concentration - - Weight 97.5 kg (215 lb) 08/08/2023 3:28 PM EST Height 166.4 cm (5' 5.5) 08/08/2023 3:28 PM EST Body Mass Index 35.23 08/08/2023 3:28 PM EST documented in this encounter Progress Notes * Tien Zurita MD - 08/08/2023 3:40 PM EST [facility] Neurosurgery Clinic Progress Note CC: 6-month postoperative follow-up Interval History: 62 y.o. year old female, w/ w/severe degenerative cervical myelopathy with C6-7 OLF s/p C4-T2 PSIF with C5-7 laminectomy on 12/02/2022. Patient reports approximately the same level of improvement since her last visit with good improvement of her left arm strength and resolved upper extremity paresthesias and tingling, but ongoing balance difficulties requiring a rollator to ambulate independently. She continues to have moderate neck pain, similar since her last visit. New from the last visit is complaining of bilateral forearm pain. She is unable to answer if this is a soreness or a radiating electrical pain. She does have mild tenderness over this region, and denies complaints emanating from her shoulders down the back of her arm. She denies any other new symptoms such as new weakness, numbness, bowel bladder incontinence. Physical Exam EXAM: NAD, AAOx3 Gait wide-based with left leg circumduction Delt Bic Tri Gri Intr RT 5 5 5 5 5 LT 5 5 5 5 5 Ilio Quad TibA EHL Gastroc RT 5 5 5 5 5 LT 4+ 4+ 5 5 5 Sensation grossly intact to light touch throughout No Yates's Incision well-healed, no erythema, tenderness to palpation, or palpable collections Imaging independently reviewed: AP and lateral x-rays demonstrate intact hardware from C4-T2 without evidence of lucency or hardware failure. Cervical spine alignment remains positive, but unchanged. ASSESSMENT AND PLAN 62 y.o. year old female, w/ evere degenerative cervical myelopathy with C6-7 OLF s/p C4-T2 PSIF with C5-7 laminectomy with sustained improvement since 6 months after surgery. The patient reports she is increasingly anxious regarding her new radiating arm pain, specifically due to her rapid progression of symptoms prior to surgery. We discussed that this most likely represents a tendinitis, however the patient will feel significantly reassured by a new MRI of the cervical spine. I have no objection to this and get his overall reasonable to perform to ensure that there is no new adjacent segment stenosis, although it would be quite early for this to occur. MRI of the cervical spine was ordered and I will call the patient with these results. Otherwise I requested her to follow-up in 6 months with repeat x-rays at that time. Total time, 20 minutes, spent pre-charting, personal independent review of imaging, coordinating care, counseling the patient, and charting the visit. Tien Zurita MD Department of Neurosurgery documented in this encounter Plan of Treatment Upcoming Encounters Date Type Department Care Team (Late st Contact Info) Description 03/07/2024 10:00 AM EDT Appointment XRay at [address] [place] [address] Tien Zurita MD [facility] [place] [address] 03/07/2024 10:40 AM EDT Office Visit Neurosurgery at [facility] [address] Angel Hankins PA [facility] [place] [address] Scheduled Orders Name Type Priority Associated Diagnoses Orde r Schedule XR Cervical Spine 4 or 5 Views Imaging Routine Cervical myelopathy Expected: 11/08/2023, Expires: 08/07/2024 documented as of this encounter Results * MRI Cervical Spine wo Contrast (Generic) (12/28/2023 11:43 AM EDT) [employer] WORKSTATION ID [id number] RAD Anatomical Region Laterality Modality C-spine Magnetic [...] who have questions please contact the health caregiver assisted living that requested your imaging first. ? Narrative [...] patients who have questions please contactthe health caregiver assisted living that requested your imaging first. Chauhan A Yudith AKBAR IMG MRI ORDERABLES documented in this encounter Visit Diagnoses Diagnosis Cervical myelopathy Cervical spondylosis with myelopathy Cervical myelopathy Cervical spondylosis with myelopathy documented in this encounter Care Teams Internet Cafe Manager Relationship Specialty Start Date End Date Lena Womack, LAPEL BASTER PCP - General Family Medicine 08/02/22 documented as of this encounter
--- OUTSIDE RECORDS SUMMARY | 2024-02-12 18:05 | XMS_ITS | Encounter Summary ---
Author Organization [facility] Address [address] [place] [address] Care Team Providers Care Director Of Government Sales Name Role Phone Sailaja Ross NP Primary Care Provider [phone] Reason for Visit * (Routine/Next Available) - Receiving Office to Obtain Authorization Specialty Diagnoses / Procedures Referred By Cosmo cortez Referred To Contact Procedures CT OUTSIDE IMAGES LUMBAR SPINE Imaging, External Referral ID Status Reason Start Date Expiration Date Visits Requested Visits Authorized [id number] Receiving Office to Obtain Authorization 09/25/2022 1 1 Encounter Details Date Type Department Care Team (Latest Contact Info) Description 09/25/2022 12:39 EDT - 09/25/2022 12:43 EDT Hospital Encounter [facility] Secondary Reads [place] Discharge Disposition: Home or Self Care Social History Tobacco Use Types Packs/Day Years Used Date Smoking Tobacco: Never Assessed Sex and Gender Information Value Date Recorded Sex Assigned at Not on file Gender Identity Not on file Sexual Orientation Not on file documented as of this encounter Discharge Disposition Disposition Code Departure Means Destination Home or Self Care documented in this encounter Plan of Treatment Not on file documented as of this encounter Procedures Procedure Name Priority Date/Time Associated Diagnosis Comments CT OUTSIDE IMAGES LUMBAR SPINE Routine 09/25/2022 12:39 EDT documented in this encounter Results * CT OUTSIDE IMAGES LUMBAR SPINE (09/25/2022 12:39 EDT) Narrative 09/25/2022 12:39 EDT This is a non-reportable exam. External Imaging IMG OTHER IMAGING OR DERABLES documented in this encounter Visit Diagnoses Not on filedocumented in this encounter Care Teams Director Of Government Sales Relationship Specialty Start Date End Date Sailaja Ross NP [facility] [address] [place] [address] PCP - General 12/19/09 documented as of this encounter
--- OUTSIDE RECORDS SUMMARY | 2024-02-12 18:05 | XMS_ITS | Encounter Summary ---
Author Organization [facility] Address [address] [place] [address] Care Team Providers Care Room Service Manager Name Role Phone Sailaja Ross NP Primary Care Provider [phone] Reason for Visit * (Routine/Next Available) - Receiving Office to Obtain Authorization Specialty Diagnoses / Procedures Referred By Cosmo cortez Referred To Contact Procedures CT OUTSIDE IMAGES ABDOMEN PELVIS Imaging, External Referral ID Status Reason Start Date Expiration Date Visits Requested Visits Authorized [id number] Receiving Office to Obtain Authorization 09/25/2022 1 1 Encounter Details Date Type Department Care Team (Latest Contact Info) Description 09/25/2022 12:44 EDT - 09/25/2022 12:52 EDT Hospital Encounter [facility] Secondary [place] Discharge Disposition: Home or [...] Date/Time Associated Diagnosis Comments CT OUTSIDE IMAGES ABDOMEN PELVIS Routine 09/25/2022 12:44 EDT documented in this encounter Results * CT OUTSIDE IMAGES ABDOMEN PELVIS (09/25/2022 12:44 EDT) Narrative 09/25/2022 12:44 EDT This is a non-reportable exam. External Imaging IMG OTHER IMAGING OR DERABLES documented in this encounter Visit Diagnoses Not on filedocumented in this encounter Care Teams Room Service Manager Relationship Specialty Start Date End Date Sailaja Rsos NP [facility] [address] [place] [address] PCP - General 12/19/09 documented as of this encounter
--- OUTSIDE RECORDS SUMMARY | 2024-02-12 18:05 | XMS_ITS | Encounter Summary ---
Author Organization [facility] [place] [address] Care Team Providers Care Candy Separator Hard Name Role Phone Lena Womack APRN Primary Care Provider [phone] Reason for Visit * Reason Onset Date Comments Appointment 08/11/2023 Encounter Details Date Type Department Care Team (Late st Contact Info) Description 08/11/2023 Telephone [place] [id number] Tien Zurita MD [facility] [address] Appointment Social History Tobacco Use Types Packs/Day Years Used Date Smoking Tobacco: Former Cigarettes 0.3 35 Smokeless Tobacco: Never Alcohol Use Standard Drinks/Week Comments Yes 0 (1 standard drink = 0.6 oz pur e alcohol) 1-2x a year [facility] Inpatient Questions Answer Date Recorded Does [...] * Telephone Encounter - Rafaela Delgado - 08/17/2023 11:58 AM EDT Patient scheduled for 08/12. Closing encounter. * Telephone Encounter - Rosaura Trujillo R - 08/15/2023 1:16 PM EDT LMOM for pt to call back to schedule NS appt PSC Scheduling Instructions Provider: Tien Zurita MD Visit Type: OV To discuss MRI results, f/u Cervical Myelopathy MRI Cervical Spine prior at Appt Notes (copy entirely): OV, To discuss MRI results, f/u Cervical Myelopathy MRI Cervical Spine prior at Imaging appt needed?: MRI PSC to ask patient Screening Questions? Yes (DOES NOT APPLY TO XRAY) PSC to coordinate same day appt with Radiology? Yes (DOES NOT APPLY TO XRAY) Additional Info Needed: Schedule on/around Next Available Update this encounter when patient calls back. * Telephone Encounter - Rena Tom - 08/11/2023 9:24 AM EST LMOM for pt to call back to schedule NS appt [facility]SC Scheduling Instructions Provider: Tien Zurita MD Visit Type: OV To discuss MRI results, f/u Cervical Myelopathy MRI Cervical Spine prior at Appt Notes (copy entirely): OV, To discuss MRI results, f/u Cervical Myelopathy MRI Cervical Spine prior at Imaging appt needed?: MRI PSC to ask patient Screening Questions? Yes (DOES NOT APPLY TO XRAY) PSC to coordinate same day appt with Radiology? Yes (DOES NOT APPLY TO XRAY) Additional Info Needed: Schedule on/around Next Available Update this encounter when patient calls back. ~~~~~~~~~~~~~~~~~~~~~~~~~~~~~~~~ Katheryn Carranza - 08/08/23 Tien Zurita MD Sent: TueAugust 08, 2023 3:52 PM To: P [facility] [place] Follow-up and Dispositions Check-out Note: MRI C spine - Can follow-up results via telephone Follow-up in 6 months with repeat x-rays documented in this encounter Plan of Treatment Upcoming Encounters Date Type Department Care Team (Late st Contact Info) Description 03/07/2024 10:00 AM EDT Appointment XRay at [address] [place] [address] Tien Zurita MD [facility] [place] [address] 03/07/2024 10:40 AM EDT Office Visit Neurosurgery at [facility] [place] [phone] Angel Hankins PA [facility] [place] [address] documented as of this encounter Visit Diagnoses Not on filedocumented in this encounter Care Teams Candy Separator Hard Relationship Specialty Start Date End Date Lena Womack APRN PCP - General Family Medicine 08/02/22 documented as of this encounter
--- OUTSIDE RECORDS SUMMARY | 2024-02-12 18:05 | XMS_ITS | Encounter Summary ---
Author Organization Replaced By [facility] Address [facility] [place] [address] Care Team Providers Care Signs And Displays Salesperson Name Role Phone Shanta Lena Villeda APRN Primary Care Provider [phone] Encounter Details Date Type Department Care Team (Latest Contact Info) Description 01/17/2023 12:41 PM EDT - 01/17/2023 11:59 PM EDT Hospital Encounter XRay at [address] [place] [address] Tien Zurita MD [facility] [place] [address] Cervical spondylosis without myelopathy Discharge Disposition: Home Social History Tobacco Use Types Packs/Day Years Used Date Smoking Tobacco: Former Cigarettes 0.3 35 Smokeless Tobacco: Never Alcohol Use Standard Drinks/Week Comments Yes 0 (1 standard drink = 0.6 oz pur e alcohol) 1-2x a year [facility] Inpatient Questions Answer Date Recorded Does Anyone [...] 03/07/2024 10:00 AM EDT Appointment XRay at [address] [place] [address] Tien Zurita MD [facility] [place] [address] 03/07/2024 10:40 AM EDT Office Visit Neurosurgery at [facility] [place] [phone] Angel Hankins PA [facility] [place] [address] documented as of this encounter Procedures Procedure Name Priority Date/Time Associated Diagnosis Comments XR CERVICAL SPINE 2 OR 3 VIEWS Routine 01/17/2023 12:59 PM EDT Cervical spondylosis without myelopathy documented in this encounter Results * XR Cervical Spine 2 or 3 Views (01/17/2023 12:59 PM EDT) Anatomical Region Laterality Modality C-spine N/A Digital Radiogra phy Impressions 01/17/2023 2:21 PM EDT Incomplete cervical spine evaluation, but within the limits of the exam, there is no hardware complication or spine malalignment following posterior decompression and instrumented fusion. Thank you for letting us participate in the care of this patient. ??If you are a health care provider and have any questions regarding this report, please contact the number below. ??For patients who have questions please contact the health transitions rn care coordinator that requested your imaging first. ? Electronically signed by: Svetlana Wellington MD, [facility] ([phone]), at 01/17/2023 2:21 PM Narrative 01/17/2023 2:21 PM EDT EXAMINATION: XR CERVICAL SPINE 2 OR 3 VIEWS CLINICAL HISTORY: s/p C4-T2 PSIF, C5-7 laminectomy TECHNIQUE: AP, lateral and swimmer's views of the cervical spine COMPARISON: Radiographs January 05 and December 03, 2022 FINDINGS: The lateral view images through the C5 vertebral body. Vertebral bodies remain obscured by the shoulders on the swimmer's projection. Decompression and posterior instrumented fusion C4-T2 has intact hardware without adjacent lucency, change in position, fracture or new spine malalignment. Posterior surgical skin parminder have been removed, and subcutaneous air has resolved. Multilevel intervertebral disc degeneration and facet joint osteoarthropathy are unchanged. The patient is edentulous. Survey of skull base, maxillofacial structures, prevertebral soft tissues and thoracic inlet is normal. Procedure Note Svetlana Wellington MD - 01/17/2023 EXAMINATION: XR CERVICAL SPINE 2 OR 3 VIEWS CLINICAL HISTORY: s/p C4-T2 PSIF, C5-7 laminectomy TECHNIQUE: AP, lateral and swimmer's views of the cervical spine COMPARISON: Radiographs January 05 and December 03, 2022 FINDINGS: The lateral view images through the C5 vertebral body. Vertebral bodiesremain obscured by the shoulders on the swimmer's projection. Decompression and posterior instrumented fusion C4-T2 has intact hardware without adjacent lucency, change in position, fracture or new spine malalignment.Posterior surgical skin parminder have been removed, and subcutaneous air hasresolved. Multilevel intervertebral disc degeneration and facet jointosteoarthropathy are unchanged. The patient is edentulous. Survey of skull base, maxillofacialstructures, prevertebral soft tissues and thoracic inlet is normal. IMPRESSION Incomplete cervical spine evaluation, but within the limits of the exam,there is no hardware complication or spine malalignment following posterior decompression and instrumented fusion. Thank you for letting us participate in the care of this patient. If youare a health care provider and have any questions regarding this report,please contact the number below. For patients who have questions please contactthe health transitions rn care coordinator that requested your imaging first. Electronically signed by: Svetlana Wellington MD, [facility]([phone]), at 01/17/2023 2:21 PM Chauhan A Echt IMG DX ORDERABLES documented in this encounter Visit Diagnoses Diagnosis Cervical spondylosis without myelopathy documented in this encounter Care Teams Signs And Displays Salesperson Relationship Specialty Start Date End Date Lena Womack, IMPROVEMENT ENGINEER PCP - General Family Medicine 08/02/22 documented as of this encounter
--- OUTSIDE RECORDS SUMMARY | 2024-02-12 18:05 | XMS_ITS | Encounter Summary ---
Author Organization [facility] Address [address] [place] [id number] Care Team Providers Care Sound Person Name Role Phone Unavailable Primary Care Provider Unavailabl e Encounter Details Date Type Department Care Team (Late st Contact Info) Description 12/16/2009 Results Only [facility] Laboratory Services - [facility] ([facility] [address] [place] [address] Socorro Engel MD [address], [place] [id number] Social History Tobacco Use Types Packs/Day Years Used Date Smoking Tobacco: Never Assessed Sex and Gender Information Value Date Recorded Sex Assigned at Not on file Gender Identity Not on file Sexual Orientation Not on file documented as of this encounter Plan of Treatment Not on file documented as of this encounter Procedures Procedure Name Priority Date/Time Associated Diagnosis Comments SURGICAL PATHOLOGY Routine 12/16/2009 0:00 EDT documented in this encounter Results * SURGICAL PATHOLOGY (12/16/2009 0:00 EDT) Pathology Report: SURGICAL PATHOLOGY REPORT ? Reports generated via electronic interface contain original data; ? however they are lacking the format of the original report. ? Caution should be taken when reading/interpreti ng unformatted reports. ? Name: ? ANCA, KATHERYN L ? Accession #: ? [id number] ? : ? 1960 (Age: 49) ??F ? Collect Date: ? 12/16/2009 ? Location: ? [facility] ? Receive Date: ? 12/17/2009 ? Provider: SOCORRO BERRIAN MD ? Copy to: SANTI FITZGERALD INTERNATIONAL LOGISTICS ANALYST ? Final Pathologic Diagnosis: ? Skin of neck, left lower, shave biopsy: ? - Seborrheic keratosis, pedunculated. ? Microscopic Description: ? The stratum corneum is thickened by compact and basketweave orthokeratosis with formation of horn pseudocysts. ??The epidermis is acanthotic with formation of broad and anastomosing trabeculae. ??The trabeculae are composed of basaloid ?? keratinocytes with round uniform nuclei. ??The keratinocytes have a variable ? amount of melanin pigment. ??(Dr. Valente)/agapito ? Document reviewed and electronically signed by: ? Cori Valente MD ? Report ??Date: 12/18/2009 16:37 ? By the signature above, the attending physician certifies that he/she has ? personally conducted a gross and/or microscopic examination of the described ? specimens and rendered or confirmed the above diagnosis. ? Specimen(s) Received: ? 8.0 mm pedunculated nevus, brown, L lower neck, shaved at base ? Clinical History: ? Pedunculated nevus L neck ??catches on things ? Gross Description: ? Received in formalin labelled Katheryn Carranza and L neck is a shave ? biopsy of a nieves-brown smooth firm nodule measuring 0.8 x 0.6 x 0.3 cm. ??The ? margin is inked black. ??The specimen is trisected and submitted entirely in one cassette. ??(Antonio Vang)/mms ? End of Report ? [facility] 12/16/2009 12/17/2009 16: 56 EDT Socorro Engel MD PATHOLOGY ORDERABLES [facility] [address] [place] [address] documented in this encounter Visit Diagnoses Not on filedocumented in this encounter
--- OUTSIDE RECORDS SUMMARY | 2024-02-12 18:05 | XMS_ITS | Encounter Summary ---
Author Organization [facility] Address [facility] [place] [address] Care Team Providers Care Apartment Coordinator Name Role Phone BrunoLena eddy Ronal MEJIA Primary Care Provider [phone] Encounter Details Date Type Department Care Team (Latest Contact Info) Description 03/14/2023 Travel Social History Tobacco Use Types Packs/Day [...] 10:00 AM EDT Appointment XRay at [address] [place] [address] Tien Zurita MD [facility] [place] [address] 03/07/2024 10:40 AM EDT Office [place] [address] Angel Hankins PA [facility] [place] [address] documented as of this encounter Visit Diagnoses Not on filedocumented in this encounter Care Teams Apartment Coordinator Relationship Specialty Start Date End Date Lena Womack APRN PCP - General Family Medicine 08/02/22 documented as of this encounter
--- OUTSIDE RECORDS SUMMARY | 2024-02-12 18:05 | XMS_ITS | Encounter Summary ---
Author Organization [facility] Address [address] [place] [address] Care Team Providers Care Airplane Patroller Name Role Phone Sailaja Ross NP Primary Care Provider [phone] Encounter Details Date Type Department Care Team (Late st Contact Info) Description 07/30/2022 Lab Requisition [facility] Pathology & Laboratory Medicine - [address] [address] Outr Resulting Lab, Provider Social History Tobacco Use Types Packs/Day Years Used Date Smoking Tobacco: Never Assessed Sex and Gender Information Value Date Recorded Sex Assigned at Not on file Gender Identity Not on file Sexual Orientation Not on file documented as of this encounter Plan of Treatment Not on file documented as of this encounter Procedures Procedure Name Priority Date/Time Associated Diagnosis Comments CA 125 Routine 07/29/2022 21:01 EST CA 19-9 (NEW SIEMENS METHOD IN USE 06/10/15) Routine 07/29/2022 21:01 EST CEA Routine 07/29/2022 21:01 EST documented in this encounter Results * CEA (07/29/2022 21:01 EST) CEA 1.8 See Note ng/mL 08/02/2022 11:07 EST [facility] Comment: % Distribution of CEA (ng/mL): ??0.0 - 2.5 in 98.2% of Nonsmokers and 87.3% of Smokers ??2.6 - 5 in 1.8% of Nonsmokers and 8% of Smokers ??5.1 - 10.1 in 4.7% of Smokers NOTE: Serum CEA concentration should not be interpeted as absolute evidence for the presence or absence of malignant disease. ?? Assayed on Siemens ADVIA Centaur XPT using chemiluminescent technology. ??Values obtained by different assay methods cannot be used interchangeably. Blood VENOUS BLOOD / Unknown 07/29/2022 21:01 EST 07/30/2022 18:43 EST Provider Outr Resulting Lab CHEMISTRY & BLOOD GAS ORDERABLES Performing Organization Address [facility] Co de Phone Number [facility] [address] [place] [address] * CA 19-9 (NEW SIEMENS METHOD IN USE 06/10/15) (07/29/2022 21:01 EST) CA 19-9 8 <35 U/mL 08/02/2022 9:24 EST [facility] Comment: NOTE: Serum CA 19-9 concentration should not be interpreted as absolute evidence for the presence or absence of malignant disease. Assayed on Siemens ADVIA Centaur XPT using chemiluminescent technology. ??Values obtained by using different assay methods cannot be used interchangeably. Blood VENOUS BLOOD / Unknown 07/29/2022 21:01 EST 07/30/2022 18:43 EST Provider Outr Resulting Lab CHEMISTRY & BLOOD GAS ORDERABLES Performing Organization Address [facility] Co de Phone Number [facility] [address] [place] [address] * CA 125 (07/29/2022 21:01 EST) CA 125 23 <30 U/mL 08/02/2022 9:19 EST [facility] Comment: NOTE: Serum CA 125 concentration should not be interpreted as absolute evidence for the presence or absence of malignant disease. Assayed on Siemens ADVIA Centaur XPT using chemiluminescent technology. ??Values obtained by using different assay methods cannot be used interchangeably. Blood VENOUS BLOOD / Unknown 07/29/2022 21:01 EST 07/30/2022 18:43 EST Provider Outr Resulting Lab CHEMISTRY & BLOOD GAS ORDERABLES [facility] [address] [place] [address] documented in this encounter Visit Diagnoses Not on filedocumented in this encounter Care Teams Airplane Patroller Relationship Specialty Start Date End Date Sailaja Ross NP [facility] [address] [place] [address] PCP - General 12/19/09 documented as of this encounter
--- OUTSIDE RECORDS SUMMARY | 2024-02-12 18:05 | XMS_ITS | Encounter Summary ---
Author Organization [facility] Address [address] [place] [address] Care Team Providers Care Boat Loader Helper Name Role Phone Sailaja Fitzgerald EMAIL ENGINEER Primary Care Provider [phone] Encounter Details Date Type Department Care Team (Late st Contact Info) Description 06/25/2004 Results Only [facility] conversion [address] [place] [address] Emani Moreau MD [address] [place] [address] [place] Social History Tobacco Use Types Packs/Day Years Used Date Smoking Tobacco: Never Assessed Sex and Gender Information Value Date Recorded Sex Assigned at Not on file Gender Identity Not on file Sexual Orientation Not on file documented as of this encounter Plan of Treatment Not on file documented as of this encounter Procedures Procedure Name Priority Date/Time Associated Diagnosis Comments SURGICAL PATHOLOGY Routine 06/25/2004 0:00 EST documented in this encounter Results * SURGICAL PATHOLOGY (06/25/2004 0:00 EST) Pathology Report: SURGICAL PATHOLOGY REPORT Reports generated via electronic interface contain original data; however they are lacking the format of the original report. Caution should be taken when reading/interpreti ng unformatted reports. Name: ? KATHERYN MARCH ? Accession #: ? [id number] ? : ? 1960 (Age: 43) ??F ? Collect Date: ? 06/25/2004 ? Location: ? [facility] ? Receive Date: ? 06/26/2004 ? Provider: EMANI MOREAU MD Copy to: SAILAJA FITZGERALD EMAIL ENGINEER ? Final Pathologic Diagnosis: ? Uterus, right ovary, cervix, hysterectomy and unilateral salpingo-oophorect kin: 1. ?Endometrium: ? - Decidualized endometrial polyp. - Lower uterine segment endometrial polyp. - Benign secretory endometrium. 2. ?Myometrium: ? - Adenomyosis. 3. ?Serosa: ? - Leiomyomata, subserosal, largest 1.0 cm. 4. ?Ovary: ? - Endometriosis with endometrioid cyst. 5. ?Cervix: ? - No specific pathologic features. Document reviewed and electronically signed by: TISHA MCBRIDE MD Report ??Date: 06/30/2004 18:25 By the signature above, the attending physician certifies that he/she has personally conducted a gross and/or microscopic examination of the described specimens and rendered or confirmed the above diagnosis. Specimen(s) Received: ? Uterus, R ovary, cervix Clinical History: ? Menorrhagia, dysmenorrhea, ovarian cyst, endometrium Gross Description: ? Received in formalin labelled [place] and uterus, right ovary, cervix is the unoriented product of a hysterectomy and unilateral salpingo-oophorect kin. The cervix has been removed from the uterus. ??The uterus weighs 133 grams and measures 8.0 cm from fundus to transection margin, 6.0 cm cornu to cornu and 6.0 cm anterior to posterior. ??Due to removal of the adnexa and cervix, it is not orientable. ??There are two subserosal myomatous nodules, one of which is pedunculated and measures 1.5 cm in greatest dimension, the other of which is broad based and measures 0.5 cm in maximum dimension. ??The ovary weighs 84 grams and measures 6.0 x 5.5 x 5.5 cm. ??The fallopian tube measures 6.0 cm in length and has a diameter of 0.5 cm. ??The surface of the ovary is tense but distensible with multiple distinct bulges. ??The fallopian tube exhibits no abnormalities. ??The ectocervix is smooth and white. ??The squamocolumnar junction is not clearly discernible. ??Bisection of the uterine fundus reveals multiple endometrial polyps that vary from 0.5 to 2.5 cm in maximum dimension. The remaining endometrium is smooth and guo where not involved with polyps. ??The endometrium has a thickness of 0.2 to 0.3 cm and myometrium has a peak thickness of 2.4 cm. ??Sectioning of the specimen reveals no intramural nodules. Sectioning of the ovary results in the expression of approximately 20 cc of viscous brown fluid. ??There is a single cystic hemorrhagic corpus luteum in the ovary the measures 3.5 x 1.5 x 1.0 cm. ??There is no definitive communication between this corpus luteum cyst and the larger cyst containing the viscous brown fluid. ??Sectioning of the fallopian tube reveals a pinpoint lumen and no abnormalities. ??Sectioning of the cervix reveals no abnormalities. New Home Sales Consultant sections are submitted as follows: BLOCK HUITRON A1-A3 ?Endometrial polyps A4 ?Endometrial polyp and full thickness endomyometrium A5 ?Pedunculated serosal myomatous nodule A6 ?Broad based serosal myomatous nodule A7-A10 ?Ovarian cyst and ovary A11 ?Fallopian tube and fimbria A12 ?Cervix (Dr. Shen)/tmg ?? End of Report [facility] 06/25/2004 06/26/2004 15: 02 EST Emani Moreau MD PATHOLOGY ORDERABLES Performing Organization Address City/State/[facility] Co de Phone Number [facility] [address] [place] [address] documented in this encounter Visit Diagnoses Not on filedocumented in this encounter Care Teams Boat Loader Helper Relationship Specialty Start Date End Date Sailaja Fitzgerald, EMAIL ENGINEER [facility] [address] [place] [address] PCP - General 12/19/09 documented as of this encounter
--- OUTSIDE RECORDS SUMMARY | 2024-02-12 18:05 | XMS_ITS | Encounter Summary ---
Author Organization [facility] Address [facility] [place] [address] Care Team Providers Care Welt Sewer Name Role Phone Shanta Lena Villeda APRN Primary Care Provider [phone] Encounter Details Date Type Department Care Team (Latest Contact Info) Description 08/08/2023 3:00 PM EST - 08/08/2023 11:59 PM EST Hospital Encounter XRay at [address] [place] [address] Juan Krishna MD [facility] [address] Stenosis of cervical spine with myelopathy Discharge Disposition: Home Social History Tobacco [...] 03/07/2024 10:00 AM EDT Appointment XRay at [address] [place] [address] Tine Zurita MD [facility] [place] [address] 03/07/2024 10:40 AM EDT Office Visit Neurosurgery at [facility] [place] [phone] Angel Hankins PA [facility] [place] [address] documented as of this encounter Procedures Procedure Name Priority Date/Time Associated Diagnosis Comments XR CERVICAL SPINE 2 OR 3 VIEWS Routine 08/08/2023 3:11 PM EST Stenosis of cervical spine with myelopathy documented in this encounter Results * XR Cervical Spine 2 or 3 Views (08/08/2023 3:11 PM EST) Anatomical Region Laterality Modality C-spine N/A Digital Radiogra phy Impressions 08/09/2023 1:46 PM EST Status post posterior decompression and fusion from C3 to T2. No hardware complication or change in alignment. Thank you for letting us participate in the care of this patient. ??If you are a health care provider and have any questions regarding this report, please contact the number below. ??For patients who have questions please contact the health healthcare liaison that requested your imaging first. ? Narrative 08/09/2023 1:46 PM EST EXAMINATION: XR CERVICAL SPINE 2 OR 3 VIEWS CLINICAL HISTORY: ??Cervical myelopathy [G95.9 (ICD-10-CM)] postop ?? (as entered by ordering provider in the order requisition) TECHNIQUE: AP and lateral views of the cervical spine. COMPARISON: Cervical spine radiographs 03/14/2023 FINDINGS: On the lateral view, spinal levels are seen down to C6. The anterior atlantodental interval is normal. Postoperative changes status post posterior compression and fusion from C3 to T2. Hardware is intact and unchanged in position. There is no screw backout. No focal vertebral body height loss. ??No listhesis. No prevertebral soft tissue swelling. There is disc space narrowing at all visualized levels are seen C3 and C6. Procedure Note Rosaura Ocampo MD - 08/09/2023 EXAMINATION: XR CERVICAL SPINE 2 OR 3 VIEWS CLINICAL HISTORY: Cervical myelopathy [G95.9 (ICD-10-CM)] postop (as entered by ordering provider in the order requisition) TECHNIQUE: AP and lateral views of the cervical spine. COMPARISON: Cervical spine radiographs 03/14/2023 FINDINGS: On the lateral view, spinal levels are seen down to C6. The anterior atlantodental interval is normal. Postoperative changes status post posterior compression and fusion from C3to T2. Hardware is intact and unchanged in position. There is no screwbackout. No focal vertebral body height loss. No listhesis. No prevertebral soft tissue swelling. There is disc space narrowing at all visualized levels are seen C3 andC6. IMPRESSION Status post posterior decompression and fusion from C3 to T2. Nohardware complication or change in alignment. Thank you for letting us participate in the care of this patient. If youare a health care provider and have any questions regarding this report,please contact the number below. For patients who have questions please contactthe health healthcare liaison that requested your imaging first. Juan Krishna MD IMG DX ORDERABLES documented in this encounter Visit Diagnoses Diagnosis Stenosis of cervical spine with myelopathy documented in this encounter Care Teams Welt Sewer Relationship Specialty Start Date End Date Lena Womack, CRIMINAL JUSTICE INSTRUCTOR PCP - General Family Medicine 08/02/22 documented as of this encounter
--- OUTSIDE RECORDS SUMMARY | 2024-02-12 18:05 | XMS_ITS | Encounter Summary ---
[place] [address] Care Team Providers Care Treasurer [employer] Name Role Phone Lena Womack APRN Primary Care Provider [phone] Encounter Details Date Type Department Care Team (Late st Contact Info) Description 07/22/2023 [place] [phone] Rena Tom Social History Tobacco Use Types Packs/Day Years Used Date Smoking Tobacco: Former Cigarettes 0.3 35 Smokeless Tobacco: Never Alcohol Use Standard Drinks/Week Comments Yes 0 (1 standard drink = 0.6 oz pur e alcohol) 1-2x a year [facility] Inpatient Questions Answer Date Recorded [...] * Telephone Encounter - Rena Tom - 07/22/2023 12:05 PM EST RN, Please put in an xray order or extend the expiration date as the order has and the patient is scheduled for 08/07. Thanks, Rena ----- Message from Cherri Piper sent at 07/22/2023 8:36 AM EST ----- Good Morning, Patient left a voice message 07/21/23 on [facility] line requesting a call to reschedule her past appointment with Dr. Zurita. Please reach out to the patient. Thanks Cherri Clinical [facility] documented in this encounter Plan of Treatment Upcoming Encounters Date Type Department Care Team (Late st Contact Info) Description 03/07/2024 10:00 AM EDT Appointment XRay at [address] [place] [address] Tien Zurita MD [facility] [place] [id number] 03/07/2024 10:40 AM EDT Office Visit Neurosurgery at [facility] [place] [phone] Angel Hankins PA [facility] [place] [place] [id number] documented as of this encounter Results * XR Cervical Spine [...] who have questions please contact the health childcare center director that requested your imaging first. ? Narrative [...] patients who have questions please contactthe health childcare center director that requested your imaging first. 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
--- OUTSIDE RECORDS SUMMARY | 2024-02-12 18:05 | XMS_ITS | Encounter Summary ---
Author Organization [facility] Address [address] [place] [address] Care Team Providers Care Graphic Design Professor Name Role Phone Sailaja Ross NP Primary Care Provider [phone] Reason for Visit * (Routine/Next Available) - Receiving Office to Obtain Authorization Specialty Diagnoses / Procedures Referred By Cosmo cortez Referred To Contact Procedures CT OUTSIDE IMAGES HEAD AND NECK Imaging, External Referral ID Status Reason Start Date Expiration Date Visits Requested Visits Authorized [id number] Receiving Office to Obtain Authorization 09/25/2022 1 1 Encounter Details Date Type Department Care Team (Latest Contact Info) Description 09/25/2022 12:53 EDT - 09/25/2022 23:59 EDT Hospital Encounter [facility] Secondary Reads [place] Discharge Disposition: Home [...] Date/Time Associated Diagnosis Comments CT OUTSIDE IMAGES HEAD AND NECK Routine 09/25/2022 12:53 EDT documented in this encounter Results * CT OUTSIDE IMAGES HEAD AND NECK (09/25/2022 12:53 EDT) Narrative 09/25/2022 12:53 EDT This is a non-reportable exam. External Imaging IMG OTHER IMAGING OR DERABLES documented in this encounter Visit Diagnoses Not on filedocumented in this encounter Care Teams Graphic Design Professor Relationship Specialty Start Date End Date Sailaja Ross NP [facility] [address] [place] [address] PCP - General 12/19/09 documented as of this encounter
--- OUTSIDE RECORDS SUMMARY | 2024-02-12 18:06 | XMS_ITS | Encounter Summary ---
Author Organization [facility] [place] [address] Care Team Providers Care Stenocaptioner Name Role Phone Lena Womack APRN Primary Care Provider [phone] Reason for Visit * Auth/Cert (Routine) Specialty Diagnoses / Procedures Referred By Cosmo t Referred To Contact Diagnoses Cervical myelopathy Procedures ER IPI Tien Zurita MD [facility] [place] [address] [facility] Referral ID Status Reason Start Date Expiration Date Visits Re quested Visits Authorized [id number] 1 1 Encounter Details Date Type Department Care Team (Late st Contact Info) Description 12/02/2022 12:10 PM EDT Anesthesia Event [place] [address] Latonia Em MD [facility] [address] Bartolo Sauceda CRNA [facility] [address] Anesthesia Record Procedure Summary Procedure Name Responsible Anesthesiologist Anesthesia Start Time Anesthesia Stop Time @ARTHRODESIS, POSTERIOR CERVICAL SPINE (WRVU 17.4) (Spine Cervical) Latonia mE MD 12/02/22 1210 12/02/22 1709 Events Date Time Event Comment 12/02/2022 1012 1210 AN Verify 1210 Start 1210 An Start Data 1217 An Induction 1219 An Intubation 1231 Anesthesia Ready 1242 Quick Note Surgeon applies head clamp 1320 Quick Note Bite block posi tion checked in prone position 1328 Quick Note Baseline signal s obtained (decreased on left side), per surgeon's request rocuronium given for incision 1329 Quick Note 1651 Procedure Stop 1652 Extubation/LMA Out 1656 an stop data 1709 Recovery or ICU Handoff Asuncion ent care was transferred to the destination unit staff after review of the patient's medical history, current anesthetic/surgical status and plan, according to the Provider Handoff Checklist. 1709 Stop Meds Name Total fentaNYL 200 mcg Propofol 150 mg Rocuronium 40 mg ePHEDrine 5 mg Ondansetron 4 mg Dexamethasone 4 mg Neostigmine 4 mg Glycopyrrolate 0.4 mg Succinylcholine 100 mg Propofol INF 3,285.45 mg REMIfentanil INF 4.01 mg PHENYLephrine INF 4,770 mcg ceFAZolin 4 g Lactated Ringers 600 mL Lactated Ringers 700 mL * Agents Name O2 Air N2O Sevoflurane (et) * Blood No blood administrations on file. Lines, Drains, and Airways Type Details Placement Removal Incision 08/02/22; 1834; lowe r quadrant; laparoscopic puncture 08/02/22 1834 by Delaney Wiggins RN Incision 08/02/22; 1854; abdo men; midline 08/02/22 1854 by Delaney Wiggins RN Incision 12/02/22; 1416; cerv ical spine 12/02/22 1416 by Herlinda [place]ingsworth, RN (RETIRED) Peripheral IV Line - Single Lumen median vein (underside of arm), right; ulma-rje-aznyke catheter system; Anatomical Landmarks; 18 gauge; 12/05/22; 0841 12/02/22 1243 by 12/05/22 0841 by Mayuri Patel, RN (RETIRED) Peripheral IV Line - Single Lumen 12/01/22; 1557; cephalic vein (lateral side of arm), left; lqry-zjp-gfiouk catheter system; Anatomical Landmarks; 22 gauge, 1 in length; Brianne Schneider RN VAS; distraction, tolerated well; removed per policy/procedure, catheter/device intact; 12/16/22; 1231 12/01/22 1557 by Ginna Schneider RN 12/16/22 1231 by Mali Forde RN ETT Mask Ventilation: Ea sy (1); ETT Type: Cuffed, Oral; ETT Size: 7 mm; Mac Blade: 3; Notes: Asleep, Pre-O2, Stylette; Attempts: 1; Laryngoscopy Grade: 2; ETT Placement Verified By: Auscultation, Capnometry, Visual; Secured at Teeth: 22 cm; Inserted by: Sohail; Removal Date: 12/02/22; Removal Time: 165112/02/22 121 by Bartolo Sauceda, [employer] D[employer]ER 12/02/22 165 by Bartolo Sauceda, [employer] D[employer]ER Arterial Line 12/02/22; 1239; radi al artery, right; 20 gauge; Anatomical Landmarks, Guidewire; continuous blood pressure monitoring, frequent blood gas measurement; Joeiner; Sterile Prep, Sterile Gloves; 12/02/22; 1830 12/02/22 1239 by Bartolo Sauceda, [employer] DRIER 12/02/22 1830 by Leidy Weaver RN Urethral Catheter 12/02/22; 1241; Physician order; indwelling double lumen catheter; 100% silicone; 14; inserted at this facility; 1; 10; 10; none; leg bag; per protocol/policy; 12/03/22; 1637 12/02/22 1241 by Herlinda Hollingsworth RN 12/03/22 1637 by Rosaura Baltazar LNA Drain/Device Site 12/02/22; 1608; posterior; cervical spine; 12/07/22; 0700 12/02/22 1608 by Herlinda Hollingsworth RN 12/07/22 0700 by Faiza Bernardo RN documented in this encounter Social History Tobacco Use Types Packs/Day Years Used Date Smoking Tobacco: Every Day Cigarettes 0.3 35 Smokeless Tobacco: Never Alcohol [...] on file documented as of this encounter OR Notes * Anesthesia Postprocedure Evaluation - Latonia Em MD - 12/27/2022 3:48 PM EDT Department of Anesthesiology Post-procedure Note Patient: Katheryn Carranza Procedure Summary Date: 12/02/22 Room / Location: [facility] OR [facility] MAIN OR Anesthesia Start: 1210 Anesthesia Stop: 1709 Procedures: @ARTHRODESIS, POSTERIOR CERVICAL SPINE (WRVU 17.4) (Spine Cervical) ARTHRODESIS, POSTERIOR VERTEBRAL EA.ADD. SEGMENT (WRVU 6.43) (Spine Cervical) LAMINECTOMY, FACETECTOMY & FORAMINOTOMY, CX, ONE LEVEL (WRVU 17.95) (Spine Cervical) POST SPINAL INSTRUMENTATION, 3-6 VERTEBRA, NON SEGMENTAL (WRVU 12.56) (Spine Cervical) AUTOGRAFT FOR SPINE SURGERY ONLY, SAME INCISION (WRVU *) (Spine Cervical) ALLOGRAFT FOR SPINE SURGERY ONLY; MORSELIZED (WRVU *) (Spine Cervical) STEREOTACTIC COMPUTER-ASSTD NAVIGATIONAL SPINAL (WRVU 3.75) (Spine Cervical) MODIFIER,POSTERIOR CERVICAL INFINITY MEDTRONIC (Spine Cervical) FLUOROSCOPY (WRVU 0.3) (Spine Cervical) MODIFIER,O-ARM, MOR (Spine Cervical) MODIFIER MEDTRONIC STEALTH (Spine Cervical) MODIFIER NEUROMONITORING (Spine Cervical) Diagnosis: Stenosis of cervical spine with myelopathy (Cervical stenosis with myelopathy) Surgeons: Tien Zurita MD Responsible Provider: Latonia Em MD Anesthesia Type: general ASA Status: 3 All Anesthesia Providers: Anesthesiologist: Latonia Em MD [employer] DRIER: Bartolo Sauceda CRNA Vitals Value Taken Time BP 129/86 12/16/22 1144 Temp 36.7 ??C (98.1 ??F) 12/16/22 1144 Pulse 82 12/15/22 1128 Resp 16 12/16/22 1144 SpO2 95 % 12/16/22 1144 Pain Level 7 12/16/22 0945 Patient Location: PACU/[facility] Level of Consciousness: Conscious but Sleepy Pain Management: Satisfactory Analgesia PONV: None Cardiovascular Status: At Baseline Respiratory Status: At Baseline Postoperative Fluid Status: Intravascular EUvolemia Possible Anesthetic Complications: Final Primary Anesthesia Type: General (The anesthetic type performed was the same as planned.) Comments: * Anesthesia Preprocedure Evaluation - Latonia Em MD - 12/02/2022 10:08 AM EDT Pre-Anesthesia Evaluation for: Katheryn Carranza a 62 y.o. female. Procedure(s): @ARTHRODESIS, POSTERIOR CERVICAL SPINE (WRVU 17.4) ARTHRODESIS, POSTERIOR VERTEBRAL EA.ADD. SEGMENT (WRVU 6.43) LAMINECTOMY, FACETECTOMY & FORAMINOTOMY, CX, ONE LEVEL (WRVU 17.95) POST SPINAL INSTRUMENTATION, 3-6 VERTEBRA, NON SEGMENTAL (WRVU 12.56) AUTOGRAFT FOR SPINE SURGERY ONLY, SAME INCISION (WRVU *) ALLOGRAFT FOR SPINE SURGERY ONLY; MORSELIZED (WRVU *) STEREOTACTIC COMPUTER-ASSTD NAVIGATIONAL SPINAL (WRVU 3.75) MODIFIER,POSTERIOR CERVICAL INFINITY MEDTRONIC FLUOROSCOPY (WRVU 0.3) MODIFIER,O-ARM, MOR MODIFIER MEDTRONIC STEALTH MODIFIER NEUROMONITORING Patient Active Problem List Diagnosis Date Noted ??? *Cervical myelopathy 11/30/2022 ??? Serous adenofibroma of left ovary 08/16/2022 ??? Moderate opioid use disorder 08/03/2022 ??? Thoracic compression fracture, sequela 08/03/2022 ??? Herniation of lumbar intervertebral disc with radiculopathy 08/03/2022 ??? Adnexal mass 08/02/2022 ??? Primary osteoarthritis of right knee 04/27/2016 ??? Carpal tunnel syndrome, bilateral 08/06/2015 ??? Trigger thumb of left hand 08/06/2015 ??? Knee pain, bilateral 02/27/2015 ??? Osteoarthritis of patellofemoral joint 02/27/2015 ??? Cervical spondylosis without myelopathy 07/16/2014 ??? Cervical disc displacement 07/16/2014 ??? Cervical radiculitis 07/16/2014 ??? Occipital neuralgia 07/16/2014 ??? Neck pain on left side 07/04/2012 ??? Breast hypertrophy Past Medical History: Diagnosis Date ??? ADD (attention deficit disorder) ??? Depression ??? ARCHANA (generalized anxiety disorder) ??? Headache ??? Hypertension ??? Neck pain on left side 07/04/2012 ??? Thoracic compression fracture, sequela 08/03/2022 ??? Tobacco abuse Past Surgical History: Procedure Laterality Date ??? BREAST REDUCTION SURGERY Bilateral 12/2011 ??? HYSTERECTOMY ??? PRO BREAST REDUCTION 12/09/2011 REDUCTION MAMMOPLASTY, EVA performed by DEMETRA SOMMERS at [facility] MAIN OR ??? PRO LAP, DIAGNOSTIC ABDOMEN Left 08/02/2022 LAPAROSCOPY, DIAGNOSTIC, ABDOMEN (WRVU 5.14) performed by Antonio Rojas MD at [facility] OR ??? PRO REMOVAL OF OVARY/TUBE(S) Left 08/02/2022 @SALPINGO-OOPHORECTOMY, UNILATERAL OR EVA (WRVU 12.16) performed by Antonio Rojas MD at [facility] MAIN OR ??? PRO UPPER GI ENDOSCOPY, DIAGNOSTIC N/A 08/05/2022 EGD, UPPER GI ENDOSCOPY performed by Donnie Obrien MD at [facility] ENDOSCOPY Social History Tobacco Use ??? Smoking status: Every Day Packs/day: 0.25 Years: 35.00 Pack years: 8.75 Types: Cigarettes ??? Smokeless tobacco: Never Substance Use Topics ??? Alcohol use: Yes Comment: 1-2x a year Social History Substance and Sexual Activity Drug Use Yes ??? Types: Marijuana Comment: marijuana use (not medical marijuana), denies h/o drug abuse Allergies Allergen Reactions ??? Allergenic Extracts Pollen ??? Tramadol Low potassium ??? Zoloft [Sertraline] Nausea And Vomiting Medications: MAR and/or home medications have been reviewed. Physical Exam: Preprocedure Vitals Current as of 12/02/22 1008 BP: 107/68 Pulse: Resp: 18 SpO2: 95 Temp: 36.9 ??C (98.4 ??F) Height: 166.4 cm (5' 5.5) (11/30/22) Weight: 104.3 kg (230 lb) (11/30/22) BMI: 37.69 IBW: 58.2 kg (128 lb 4.1 oz) Last edited 12/02/22 0744 by MM Airway Assessment: Mallampati: III TM distance: >3 FB Neck ROM: full Cardiovascular Assessment: Rate: normal system normal Pulmonary Assessment: breath sounds clear to auscultation pulmonary exam normal Dental Assessment: (+) edentulous Misc Assessment: IV access: Peripheral line Last Filed Perioperative Cognitive Screening None Anesthesia Plan: ASA 3 general, with a(n) intravenous induction 62 yo female for posterior C4-7 decompression and fusion. Chart reviewed and patient interviewed and examined on the floor prior to procedure. NPO>8h. Fell at home (left leg gave out) and was brought to the ED. Did not hit her head. Found to have severe cervical stenosis. Does have urinary incontinence, weakness in LLE. Hx htn, GERD (well controlled), snores but has not been tested for PREMA. Denies opioid use at home. No complications with GA in the past. Plan: GA, arterial line, IVx2. Region - Other Informed Consent: Anesthetic plan and risks discussed with patient. Use of blood products discussed with patient who. Plan discussed with [employer] D[employer]ER. Anesthesia Screening documented in this encounter Plan of Treatment Upcoming Encounters Date Type Department Care Team (Late st Contact Info) Description 03/07/2024 10:00 AM EDT Appointment XRay at [address] [place] [address] Rubent, Tien Florentino MD [facility] [place] [address] 03/07/2024 10:40 AM EDT Office Visit Neurosurgery at [facility] [place] [address] Angel Hankins PA [facility] [place] [address] documented as of this encounter Visit Diagnoses Not on filedocumented in this encounter Administered Medications Inactive Administered Medications - up to 3 most recent administrations Medication Order MAR Action Action Date Dose Rate Site ceFAZolin (Ancef) 1 g in dextrose 5% 50 mL infusion Intravenous, PRN, Starting on Teresa 12/02/22 at 1241, Until Teresa 12/02/22 at 1709, Administer over 30 Minutes, Anesthesia Intra-op Given 12/02/2022 4:31 PM EDT 2 g Given 12/02/2022 12:41 PM EDT 2 g dexAMETHasone (Decadron) injection Intravenous, PRN, Starting on Teresa 12/02/22 at 1552, Until Teresa 12/02/22 at 1709, Anesthesia Intra-op, Routine Given 12/02/2022 3:52 PM EDT 4 mg ePHEDrine sulfate (5 mg/mL) multi-dose injection Intravenous, PRN, Starting on Teresa 12/02/22 at 1239, Until Teresa 12/02/22 at 1709, Anesthesia Intra-op, Routine Given 12/02/2022 12:39 PM EDT 5 mg fentaNYL (pf) (50 mcg/mL) multi-dose injection Intravenous, PRN, Starting on Teresa 12/02/22 at 1237, Until Teresa 12/02/22 at 1709, Anesthesia Intra-op, Routine Given 12/02/2022 4:57 PM EDT 50 mcg Given 12/02/2022 4:39 PM EDT 50 mcg Given 12/02/2022 12:37 PM EDT 100 mcg glycopyrrolate (Robinul) (0.2 mg/mL) multi-dose injection Intravenous, PRN, Starting on Teresa 12/02/22 at 1425, Until Teresa 12/02/22 at 1709, Anesthesia Intra-op, Routine Given 12/02/2022 2:25 PM EDT 0.4 mg lactated ringers infusion Intravenous, CONTINUOUS PRN, Starting on Teresa 12/02/22 at 1231, Until Teresa 12/02/22 at 1709, Anesthesia Intra-op New Bag 12/02/2022 12:31 PM EDT lactated ringers infusion Intravenous, CONTINUOUS PRN, Starting on Teresa 12/02/22 at 1210, Until Teresa 12/02/22 at 1709, Anesthesia Intra-op New Bag 12/02/2022 12:10 PM EDT neostigmine (Bloxiver) (1 mg/mL) injection Intravenous, PRN, Starting on Teresa 12/02/22 at 1425, Until Teresa 12/02/22 at 1709, Anesthesia Intra-op, Routine Given 12/02/2022 2:25 PM EDT 4 mg ondansetron (pf) (Zofran) (2 mg/mL) injection Intravenous, PRN, Starting on Teresa 12/02/22 at 1551, Until Teresa 12/02/22 at 1709, Anesthesia Intra-op, Routine Given 12/02/2022 3:51 PM EDT 4 mg PHENYLephrine (Mg-Synephrine) (80 mcg/mL) in sodium chloride 0.9% 250 mL infusion Intravenous, CONTINUOUS PRN, Starting on Teresa 12/02/22 at 1237, Until Teresa 12/02/22 at 1709, Anesthesia Intra-op, Routine Rate/Dose Change 12/02/2022 4:08 PM EDT 10 mcg/min 7.5 mL/hr Rate/Dose Change 12/02/2022 3:26 PM EDT 20 mcg/min 15 mL/h r Rate/Dose Change 12/02/2022 3:16 PM EDT 30 mcg/min 22.5 mL /hr propofoL (Diprivan) (10 mg/mL) infusion Intravenous, CONTINUOUS PRN, Starting on Teresa 12/02/22 at 1220, Until Teresa 12/02/22 at 1709, Anesthesia Intra-op, Routine Rate/Dose Change 12/02/2022 3:26 PM EDT 150 mcg/kg/min 93.87 mL/hr Rate/Dose Change 12/02/2022 3:16 PM EDT 125 mcg/kg/min 78. 225 mL/hr Rate/Dose Change 12/02/2022 12:37 PM EDT 150 mcg/kg/min 93 .87 mL/hr propofoL (Diprivan) 10 mg/mL bolus injection (Anesthesia) Intravenous, PRN, Starting on Teresa 12/02/22 at 1217, Until Teresa 12/02/22 at 1709, Anesthesia Intra-op Given 12/02/2022 12:17 PM EDT 150 mg remifentaniL (Ultiva) (0.02 mg/mL) infusion (Anesthesia) Intravenous, CONTINUOUS PRN, Starting on Teresa 12/02/22 at 1221, Until Teresa 12/02/22 at 1709, Anesthesia Intra-op Rate/Dose Change 12/02/2022 3:26 PM EDT 0.2 mcg/kg/min 62.58 mL/hr Rate/Dose Change 12/02/2022 1:14 PM EDT 0.15 mcg/kg/min 46 .935 mL/hr New Bag 12/02/2022 12:21 PM EDT 0.2 mcg/kg/min 62.58 mL /hr rocuronium (Zemuron) (10 mg/mL) multi-dose injection Intravenous, PRN, Starting on Teresa 12/02/22 at 1328, Until Teresa 12/02/22 at 1709, Anesthesia Intra-op, Routine Given 12/02/2022 1:28 PM EDT 40 mg succinylcholine (Anectine;Quelicin) (20 mg/mL) injection Intravenous, PRN, Starting on Teresa 12/02/22 at 1217, Until Teresa 12/02/22 at 1709, Anesthesia Intra-op, Routine Given 12/02/2022 12:17 PM EDT 100 mg documented in this encounter Care Teams Stenocaptioner Relationship Specialty Start Date End Date Lena Womack, SAP PROJECT MANAGER PCP - General Family Medicine 08/02/22 documented as of this encounter
--- OUTSIDE RECORDS SUMMARY | 2024-02-12 18:06 | XMS_ITS | Encounter Summary ---
Author Organization [facility] [place] [address] Care Team Providers Care Personnel Adviser Name Role Phone Shanta Lena Villeda APRN Primary Care Provider [phone] Encounter Details Date Type Department Care Team (Late st Contact Info) Description 01/05/2023 8:40 PM EDT Ancillary Procedure [place] [address] Tien Zurita MD [facility] [place] [address] Social History Tobacco Use Types Packs/Day Years Used Date Smoking Tobacco: Every Day Cigarettes 0.3 35 Smokeless Tobacco: Never Alcohol Use Standard Drinks/Week Comments Yes 0 (1 standard drink = 0.6 oz pur e alcohol) 1-2x a year [facility] Inpatient Questions Answer Date Recorded Does [...] 03/07/2024 10:00 AM EDT Appointment XRay at [address] [place] [phone] Tien Zurita MD [facility] [place] [address] 03/07/2024 10:40 AM EDT Office Visit Neurosurgery at [facility] [place] [address] Angel Hankins PA [facility] [place] [address] documented as of this encounter Procedures Procedure Name Priority Date/Time Associated Diagnosis Comments FILM LIBRARY STORAGE ONLY DX SPINE Routine 01/05/2023 8:37 PM EDT documented in this encounter Results * Film Library- Storage Only DX Spine (01/05/2023 8:37 PM EDT) Narrative [facility] - 01/05/2023 8:37 PM EDT This exam is auto-finalizing. It's purpose is for storage only. Tien Zurita MD IMG FILM LIBRARY ORD ERABLES Only, [place] documented in this encounter Visit Diagnoses Not on filedocumented in this encounter Care Teams Personnel Adviser Relationship Specialty Start Date End Date Lena Womack, [employer] PCP - General Family Medicine 08/02/22 documented as of this encounter
--- OUTSIDE RECORDS SUMMARY | 2024-02-12 18:06 | XMS_ITS | Encounter Summary ---
Author Organization Formerly [facility] Address [facility] [place] [address] Care Team Providers Care Community Services Officer Name Role Phone Lena Womack APRN Primary Care Provider [phone] Reason for Visit * Reason Comments Extremity Weakness * Auth/Cert (Routine) Specialty Diagnoses / Procedures Referred By Cosmo cortez Referred To Contact Diagnoses Cervical myelopathy Procedures ER IPI Tien Zurita MD [facility] [place] [address] [facility] Referral ID Status Reason Start Date Expiration Date Visits Re quested Visits Authorized [id number] 1 1 Encounter Details Date Type Department Care Team (Latest Contact Info) Description 11/30/2022 9:14 PM EDT - 12/16/2022 12:59 PM EDT Hospital Encounter Neuro Special Care Unit Level 5 [place] [address] Calista Barrera MD [facility] [place] [address] Tien Zurita MD [facility] [place] [address] History of weakness of extremity (Primary Dx); Cervical myelopathy; Stenosis of cervical spine with myelopathy; Cervical spondylosis without myelopathy Discharge Disposition: [facility] Social History Tobacco Use Types Packs/Day Years [...] EDT Inhaled Oxygen Concentration - - Weight 99.4 kg (219 lb 2.2 oz) 12/13/2022 5:51 A M EDT Height 166.4 cm (5' 5.5) 11/30/2022 7:44 PM EDT Body Mass Index 35.91 11/30/2022 7:44 PM EDT documented in this encounter Discharge Summaries * Sudeep Womack MD - 12/16/2022 10:58 AM EDT Patient Name: Katheryn Carranza Patient Age: 62 y.o. Admit date: 11/30/2022 Discharge Date and Time: 12/16/22 10:58 AM Attending Physician: Tien Zurita MD Discharging Provider: Sudeep Womack MD Discharging Service: NEUROSURGERY Operations/Major Procedures: 12/02/2022; Dr. Zurita; C4-T2 PSIF, C5-7 laminectomies Active Hospital Problems: Active Hospital Problems Diagnosis Cervical myelopathy Resolved Hospital Problems No resolved problems to display. Active Non Hospital Problems: Active Non-Hospital Problems Diagnosis Serous adenofibroma of left ovary Moderate opioid use disorder Thoracic compression fracture, sequela Herniation of lumbar intervertebral disc with radiculopathy Adnexal mass Primary osteoarthritis of right knee Carpal tunnel syndrome, bilateral Trigger thumb of left hand Knee pain, bilateral Osteoarthritis of patellofemoral joint Cervical spondylosis without myelopathy Cervical disc displacement Cervical radiculitis Occipital neuralgia Neck pain on left side Breast hypertrophy History of Presentation: Per review of relevant records-from consult note on 11/30/2022; This is a 62 y.o. female with a PMHx of cervical myelopathy, osteoarthritis, HTN , known to NSGY service; who presented to [facility] ED per recommendation from NSGY clinic with weakness s/p fall. Patient reports that on Tuesday she opened her door to let her dog out when her foot caught the rug and she fell onto her elbows and knees. She denies any headstrike. She then reports that on Saturdayshe went to get out of the recliner and was unable to close the chair and she slid onto the flooronto her buttocks. She reports she feels weak in her left hand and left leg and lower back pain. She also reports having bladder control issues but reports that since Tuesday she feels they have become more difficult. She reports when she gets the urge to urinate she needs to go right away or otherwise she will be incontinent. She has been needing to wear a brief during the day. And she is using her walker more to ambulate due to being more concerned about falling. She continues to report decreased sensation to her bilateral groin area extending down through her bilateral inner thigh to her inner calves and feet. Reports this has been baseline since September(previous fall). But denies any worsening symptoms. Of note; patient scheduled for laminectomy for cervical myelopathy on December 24. However, due to recent fall with weakness was recommended to come in to the ER for evaluation. Denies any bowel incontinence Hospital Course: Katheryn Carranza presented 11/30/2022 with left upper extremity and left lower extremity pain/weaknesss/p fall in the setting of cervical myelopathy. On 12/02/2022 patient taken to the OR with and underwent C4-T2 PSIF, C5-7 laminectomies. A MANAN drain placed. Incision was closed with parminder (due: 12/23). There were no complications with the procedure. Patient tolerated the procedure well. Patient was awakened from anesthesia, extubated and transferred to the recovery room in stable conditionhaving suffered no apparent untoward events. Post-op imaging with expected post-surgical changes. Katheryn was started on Macrobid on 12/04 for a UTI which was continued for 5 days (ending 12/09). MANAN drain was removed 12/06; closed with absorbable suture. Patient was evaluated by rehab services and deemed appropriate for discharge to [facility]. Patient was discharged in stable condition 12/16/22 At time of discharge patient is afebrile, tolerating a regular diet, ambulating with assistance, voiding spontaneously, and managing pain with oral pain medications. Important Studies and Lab Data: Labs: No results found for this or any previous visit (from the past 24 hour(s)). Studies: Results for orders placed or performed during the hospital encounter of 11/30/22 CT Head & Cervical Spine wo Contrast (Generic) (Exam End: 11/30/2022 9:12 PM) Impression 1. No acute intracranial hemorrhage or calvarial fracture. 2. No acute fracture or traumatic malalignment of the cervical spine. 3. Multilevel cervical spondylosis, with chronic severe central canal narrowing at C6-C7, related to focal ligamentum flavum calcification. Thank you for letting us participate in the care of this patient. If you are a health care provider and have any questions regarding this report, please contact the number below. For patients who have questions please contact the health animal care giver that requested your imaging first. Electronically signed by: Elizabeth Fishman MD, [facility] ([phone]), at 11/30/2022 9:[address] Thoracic Spine wo Contrast (Generic) (Exam End: 12/01/2022 12:14 AM) Impression 1. Acute on chronic T12 compression fracture, with interval increase of associated height loss, now approximately 75%. Unchanged mild retropulsion of the posterior-superior fracture fragments with resulting at least mild central canal stenosis. 2. No acute fracture or traumatic malalignment of the lumbar spine. Thank you for letting us participate in the care of this patient. If you are a health care provider and have any questions regarding this report, please contact the number below. For patients who have questions please contact the health animal care giver that requested your imaging first. Electronically signed by: Elizabeth Fishman MD, [facility] ([phone]), at 12/01/2022 12:[address] Lumbar Spine wo Contrast (Generic) (Exam End: 12/01/2022 12:14 AM) Impression 1. Acute on chronic T12 compression fracture, with interval increase of associated height loss, now approximately 75%. Unchanged mild retropulsion of the posterior-superior fracture fragments with resulting at least mild central canal stenosis. 2. No acute fracture or traumatic malalignment of the lumbar spine. Thank you for letting us participate in the care of this patient. If you are a health care provider and have any questions regarding this report, please contact the number below. For patients who have questions please contact the health animal care giver that requested your imaging first. Electronically signed by: [facility] ([phone]), at 12/01/2022 12:53 AM MRI Cervical Spine wo Contrast (Generic) (Exam End: 12/01/2022 8:21 AM) Impression 1. Severe canal stenosis at C6 and C6-7 due to bulky mineralization along the posterior thecal sac. There is associated cord pressure and and signal abnormality. 2. Moderate to severe canal stenosis at C4-5 and moderate canal stenosis at C3-C4. 3. Unhealed compression fracture at T12 with mild retropulsion contributing to mild to moderate canal narrowing, mass effect on ventral nerve roots and subtle left ventral cord deformation. 4. Left paracentral disc protrusion at L5-S1 which may irritate the left S1 nerve roots. 5. No evidence for recent/unhealed fracture in the cervical or lumbar spine. 6. Subtle edema and sacrum, incompletely evaluated. Cannot exclude unhealed sacral insufficiency fractures. Thank you for letting us participate in the care of this patient. If you are a health care provider and have any questions regarding this report, please contact the number below. For patients who have questions please contact the health animal care giver that requested your imaging first. Electronically signed by: Funmilayo Marrero [facility] ([phone]), at 12/01/2022 9:27 AM MRI Thoracic Spine wo Contrast (Generic) (Exam End: 12/01/2022 8:21 AM) Impression 1. Severe canal stenosis at C6 and C6-7 due to bulky mineralization along the posterior thecal sac. There is associated cord pressure and and signal abnormality. 2. Moderate to severe canal stenosis at C4-5 and moderate canal stenosis at C3-C4. 3. Unhealed compression fracture at T12 with mild retropulsion contributing to mild to moderate canal narrowing, mass effect on ventral nerve roots and subtle left ventral cord deformation. 4. Left paracentral disc protrusion at L5-S1 which may irritate the left S1 nerve roots. 5. No evidence for recent/unhealed fracture in the cervical or lumbar spine. 6. Subtle edema and sacrum, incompletely evaluated. Cannot exclude unhealed sacral insufficiency fractures. Thank you for letting us participate in the care of this patient. If you are a health care provider and have any questions regarding this report, please contact the number below. For patients who have questions please contact the health animal care giver that requested your imaging first. Electronically signed by: Funmilayo Marrero [facility] ([phone]), at 12/01/2022 9:27 AM MRI Lumbar Spine wo Contrast (Generic) (Exam End: 12/01/2022 8:21 AM) Impression 1. Severe canal stenosis at C6 and C6-7 due to bulky mineralization along the posterior thecal sac. There is associated cord pressure and and signal abnormality. 2. Moderate to severe canal stenosis at C4-5 and moderate canal stenosis at C3-C4. 3. Unhealed compression fracture at T12 with mild retropulsion contributing to mild to moderate canal narrowing, mass effect on ventral nerve roots and subtle left ventral cord deformation. 4. Left paracentral disc protrusion at L5-S1 which may irritate the left S1 nerve roots. 5. No evidence for recent/unhealed fracture in the cervical or lumbar spine. 6. Subtle edema and sacrum, incompletely evaluated. Cannot exclude unhealed sacral insufficiency fractures. Thank you for letting us participate in the care of this patient. If you are a health care provider and have any questions regarding this report, please contact the number below. For patients who have questions please contact the health animal care giver that requested your imaging first. Electronically signed by: Funmilayo Marrero [facility] ([phone]), at 12/01/2022 9:27 AM XR Chest PA & Lateral (Generic) (Exam End: 12/01/2022 11:48 AM) Impression No acute findings. Thank you for letting us participate in the care of this patient. If you are a health care provider and have any questions regarding this report, please contact the number below. For patients who have questions please contact the health animal care giver that requested your imaging first. Electronically signed by: SHYANN CANTU MD, [facility] ([phone]), at 12/01/2022 12:06 PM XR Cervical Spine 2 or 3 Views (Exam End: 12/03/2022 10:10 AM) Impression Incomplete evaluation of the fusion hardware due to patient body habitus. Consider repeat exam or CT. Thank you for letting us participate in the care of this patient. If you are a health care provider and have any questions regarding this report, please contact the number below. For patients who have questions please contact the health animal care giver that requested your imaging first. Electronically signed by: SHYANN CANTU MD, [facility] ([phone]), at 12/03/2022 4:43 PM Pending Studies and Lab Data: NA Discharge Condition: Stable Discharge to: [facility] Future Appointments and Orders Future Appointments and Orders Future Appointments Provider Department Dept Phone 01/17/2023 1:40 PM Tien Zurita MD Pain and Spine Center at [facility] Arrive at: Colon Therapist Area 3D [phone] Future Orders Complete By Expires XR Cervical Spine 2 or 3 Views [08553 Custom] 01/08/2023 (Approximate) 07/10/2023 Process Instructions: Scheduling Instructions: Questions: Reason for exam and clinical history: s/p C4-T2 PSIF, C5-7 laminectomy Clinical information / wood questions for radiologist: Where will study be performed?: [facility] Radiology Portable exam?: Stat read required?: Date of injury if applicable: Requested Time: Discharge Medications: Your Medications New Medications Dose Details diazePAM 5 mg tablet Commonly known as: Valium Take 1 tablet by mouth every 6 hours as needed (muscle spasms). 5 mg Quantity: 30 tablet Refills: 0 oxyCODONE 10 mg tablet Commonly known as: Roxicodone Take 1-3 tablets by mouth every 3 hours as needed for Pain (If your pain is 4-6 take 10mg; if 7-8 take 20mg; if 9-10 take 30mg). 10-30 mg Quantity: 30 tablet Refills: 0 Continued medications with new dosing Dose Details acetaminophen 325 mg tablet Commonly known as: Tylenol Take 3 tablets by mouth every 6 hours. What changed: how much to take 975 mg Quantity: 30 tablet Refills: 0 senna-docusate 8.6-50 mg Tablet Commonly known as: Pericolace Take 1-2 tablets by mouth 2 times daily as needed for Constipation. What changed: how much to take 1-2 tablet Quantity: 30 tablet Refills: 0 Continued medications, unchanged Dose Details amitriptyline 100 mg tablet Commonly known as: Elavil Take 100 mg by mouth nightly. 100 mg Refills: 0 atenoloL 50 mg tablet Commonly known as: Tenormin Take 50 mg by mouth daily. 50 mg Refills: 0 b complex vitamins Tablet Take 1 tablet by mouth daily. 1 tablet Refills: 0 cholecalciferol (Vitamin D3) 50 mcg (2,000 unit) Capsule Take 2,000 Units by mouth daily. Generic drug: cholecalciferol (Vitamin D3) 2,000 Units Refills: 0 docusate sodium 100 mg capsule Commonly known as: Colace Take 100 mg by mouth daily. 100 mg Refills: 0 gabapentin 300 mg capsule Commonly known as: Neurontin Take 600 mg by mouth 3 times daily. 600 mg Refills: 0 lisinopriL 10 mg tablet Commonly known as: Zestril Take 1 tablet by mouth daily. 10 mg Quantity: 90 tablet Refills: 2 loratadine 10 mg Tablet Commonly known as: Claritin Take 10 mg by mouth daily. 10 mg Refills: 0 Mag [address] tablet Take 64 mg by mouth every evening. Generic drug: Magnesium Chloride 64 mg Refills: 0 methocarbamoL 500 mg tablet Commonly known as: Robaxin Take 1,000 mg by mouth 2 times daily. 1,000 mg Refills: 0 multivitamin Tablet Commonly known as: THERAGRAN Take 1 tablet by mouth daily. 1 tablet Refills: 0 pantopraz[address] EC [address] tablet Commonly known as: Protonix Take 1 tablet by mouth 2 times daily. 40 mg Quantity: 120 tablet Refills: 0 QUEtiapine 100 mg tablet Commonly known as: SEROquel Take 100 mg by mouth nightly. 100 mg Refills: 0 sucralfate 1 gram tablet Commonly known as: Carafate Take 1 g by mouth 4 times daily. 1 g Refills: 0 traMADoL 100 mg tablet Commonly known as: Ultram Take 100 mg by mouth 2 times daily as needed. 100 mg Refills: 0 STOPPED Medications cyclobenzaprine 10 mg tablet Commonly known as: Flexeril ibuprofen 600 mg tablet Commonly known as: Advil Updated Allergies/ADRs: Allergies Allergen Reactions Allergenic Extracts Pollen Tramadol Low potassium Zoloft [Sertraline] Nausea And Vomiting Follow-up Recommendations for Providers: Please see Discharge Instructions Instructions Given to Patient at Discharge: Patient Instructions SPINAL SURGERY DISCHARGE INSTRUCTIONS PRESCRIPTION INSTRUCTIONS: Please see the medication reconciliation list on this discharge summary for a current list of your medications. Stop the use of blood thinning medications until instructed otherwise by your surgical team. This includes medications known as antiplatelet, anticoagulant, and non-steroidal anti-inflammatory (NSAIDs) drugs. Common gzav-rje-efhaduh medications which should be avoided include Aspirin, ibuprofen, and naproxen among others. These medications are sometimes combined with other drugs or are sold undera trade name. Common prescription medications which should be avoided include Plavix (clopidogrel) and Coumadin (warfarin) among others. The following medications are commonly prescribed after surgery. An [x] indicates that these medications have been prescribed for you. [x] Opioids - Pain relief: Oxycodone 5mg every 4-6 hours as needed for acute pain Opioids are commonly prescribed after surgery for severe pain. DO NOT use alcohol, drive, or operate heavy machinery while taking these medications. These medications may cause constipation. [x] Stool softeners - Constipation relief: docusate or senakot Stool softeners are commonly used after surgery to help make stools easier to pass. These medications can be obtained mxvy-utk-twmcqma and their use is recommended on an as needed basis for hard or difficult stools. They should be discontinued for loose stools and diarrhea. [x] Antispasmodics - Diazepam (Valium) as needed for muscle spasm/tightness Muscle relaxeants can help with the tension in the muscle in your neck or back. They may also make some people feel drowsy and unsteady on their feet. These medications should not be taken immediately prior to activity unless you know how they make you feel. DO NOT use alcohol, drive, or operate heavy machinery while taking these medications. Tylenol 1000mg every 6 hours as needed for pain WHEN TO SEEK MEDICAL CARE: Signs or symptoms of an infection: - Fever over 101F - Redness, swelling, or increasing pain around your incision - Drainage of pus, blood, or clear fluid from your incision New neurologic symptoms: - New sensory changes such as numbness, tingling, or altered sensation - New weakness, unsteadiness, difficulty walking, or difficulty using your hands - New pain that radiates down your spine or into one of you extremities - New bowel or bladder dysfunction such as incontinence or retention Constipation not relieved by diet and/or ldoo-pco-dsdjvsx stool softeners and laxatives Nausea/vomiting (upset stomach) not controlled with anti-nausea medication Symptoms of a deep venous thrombosis (DVT) or pulmonary embolism (PE): - Swelling/warmth/redness of the leg - Pain in the leg, which can be worse with standing or walking - Chest pain or shortness of breath To help prevent a DVT: - Exercise regularly. Walking, at least several times daily, is helpful. - Ankle pump exercises (like pressing and releasing the gas pedal) should be done regularly. - Keep hydrated with water or other clear liquids (coffee/tea/cola can dehydrate you). - Avoid alcohol and crossing your legs. - Remember not to sit or lay in bed, while awake, for prolonged amounts of time. WOUND CARE: - Keep incisional site clean and dry. You can remove your dressing 2 days after surgery. - You may shower and shampoo incisional site, per your usual routine, 4 days after surgery. - Do not pick/scratch/itch your incision. Pat dry. - Do not submerge your incision underwater (do not bath in a tub or go swimming in any pools, [place], lakes, oceans) for a minimal of 4 weeks after the operation. - Please consider taking supplemental Vitamin C (500mg) for up to 3 months, Zinc (220mg) for 2-6 weeks, and Vitamin A (10,000units) for up to 5 days as these supplements may decrease your risk of infection and promote healing of your surgical wound. - Keep your incision out of the sun for at least 6 months. The new skin/scar tissue is at high riskof having malignant (cancerous) changes and UV sunlight also makes scars more pronounced. DIET: - You may resume your usual diet. - Make sure your stay well hydrate. - A well-balanced diet is recommended for wound healing. - Prune juice or prunes can be added to your diet to assist with any constipation. - If you do not have kidney diease, it is recommended that you consume extra protein to help your body heal. You may consider supplemental protein in the form of shakes, powders, or bars. - Consider foods high in calcium (ex. dairy products or dark, leafy greens) and vitamin D (ex. Seafood) if you have had a spinal fusion as these will help your bones heal. You should also consider taking supplemental calcium (citrate is better than carbonate) 1000mg and vitamin D3 600units daily. ACTIVITY: - You should avoid lifting more than 5 lbs. - Restrict strenuous activity (such as running, jumping, jogging, shoveling, etc.) until cleared byyour surgical team - Avoid bending and twisting your spine. DRIVING: - Do not drive while taking narcotic pain medication. [] You may return to driving 2 weeks after surgery. [x] You may NOT drive until cleared by Neurosurgery. SMOKING: Smoking has a negative impact on bone healing, in terms of delayed union, nonunion, and more complications. Smoking is the leading preventable cause of , and quitting is the single most important thing you can do for your health. However, it's hard to quit smoking and you might need some help. Nicotine in tobacco is an addictive drug and it can be a very difficult to quit. Seventy percent of all adult smokers want to quit smoking but are overwhelmed with the process. We can help! Our Tobacco Dependence Clinics We have tobacco dependence clinics in these locations: [place] [facility]: [facility] Treatment [facility], [place] Other Programs at [facility] in [place] Living Free of Tobacco support group: For anyone who has quit tobacco or is considering quitting tobacco. [facility] Health Education Center, Level 4, [place] 3:30 to 4:30 p.m. on the tuesday of every month. Other Programs in the Area [facility] in [place] One-on-one counseling, hypnosis. Calista Lynch [facility] in [place], [place] One-on-one counseling, QuitLine, classes. Sailaja [facility]: One-on-one counseling. All ages and incomes eligible. [facility]: Classes & support group. Surendra Owens [facility] in [place], [place] One-on-one counseling, QuitLine, classes, hypnosis therapy. Kaylee Trejo Information about Quitting Smoking and Tobacco See our Quitting Smoking - Information and Materials page (http://[email or web address].org/medical- information/smoking/information_on_quitting_smoking.html) for educational information about quitting smoking, downloadable smoking cessation materials, podcasts, websites, helplines, and more. FOLLOW UP PLAN: Future Appointments Date Time Provider Department Center 01/17/2023 1:40 PM Tien Zurita MD [facility] Pain Sp [facility] Incision: [x] Please follow up for staple removal approximately 2 weeks after the operation on 12/23 with yourPrimary Care Provider or with the Neurosurgery HOME SERVICE TECHNICIAN/RN. Your sutures/parminder may also be removed at rehab. Appointments: Please follow up in the Neurosurgery Clinic on 01/17/2023 at 1:40pm. Please call the Neurosurgery Office at [phone] if you do not receive a scheduled appointment within two weeks. Your follow-up appointment will be with: [] Dr. Krishna [] Dr. Snowden [x] Dr. Zurita [] Dr. Duenas [] Dr. Jacques [] Dr. Solis [] Associate Provider Follow-up Imaging: XR - Cervical HOW TO REACH NEUROSURGERY Office Hours: Tuesday through Tuesday, 8am-5pm. Call . On weekends or after office hours: Call [phone] and ask the newspaper press operator apprentice to page the Neurosurgery Resident/Advanced Practice Provider brand communications manager. Neurosurgery Providers Adult Neurosurgery Dr. Juan Duenas Pediatric Neurosurgery Dr. Calista Herrmann Advanced Practice Providers Daniela Troy, Nurse Practitioner (outpatient) Christina Pagan, Physician Superintendent Construction (inpatient/outpatient: neuro-oncology) Vikki Bowen, Physician Superintendent Construction (inpatient) Seb Yuen, Nurse Practitioner (outpatient: pediatric) Joan Kwon, Nurse Practitioner (outpatient: vascular) Elenita Nuñez, Physician Superintendent Construction (outpatient: spine) Dioni Duong, Nurse Practitioner (inpatient/outpatient) Angel Hankins, Physician Superintendent Construction (outpatient) Outpatient Nurses Laura Womack MD 12/16/2022 documented in this encounter Discharge Instructions * Patient Instructions* Sudeep Womack MD - 12/08/2022 7:02 AM EDT SPINAL SURGERY DISCHARGE INSTRUCTIONS PRESCRIPTION INSTRUCTIONS: Please see the medication reconciliation list on this discharge summary for a current list of your medications. Stop the use of blood thinning medications until instructed otherwise by your surgical team. This includes medications known as antiplatelet, anticoagulant, and non-steroidal anti-inflammatory (NSAIDs) drugs. Common qwhp-esw-fdnutzv medications which should be avoided include Aspirin, ibuprofen, and naproxen among others. These medications are sometimes combined with other drugs or are sold undera trade name. Common prescription medications which should be avoided include Plavix (clopidogrel) and Coumadin (warfarin) among others. The following medications are commonly prescribed after surgery. An [x] indicates that these medications have been prescribed for you. [x] Opioids - Pain relief: Oxycodone 5mg every 4-6 hours as needed for acute pain Opioids are commonly prescribed after surgery for severe pain. DO NOT use alcohol, drive, or operate heavy machinery while taking these medications. These medications may cause constipation. [x] Stool softeners - Constipation relief: docusate or senakot Stool softeners are commonly used after surgery to help make stools easier to pass. These medications can be obtained swqd-vep-yrpnigz and their use is recommended on an as needed basis for hard or difficult stools. They should be discontinued for loose stools and diarrhea. [x] Antispasmodics - Diazepam (Valium) as needed for muscle spasm/tightness Muscle relaxeants can help with the tension in the muscle in your neck or back. They may also make some people feel drowsy and unsteady on their feet. These medications should not be taken immediately prior to activity unless you know how they make you feel. DO NOT use alcohol, drive, or operate heavy machinery while taking these medications. Tylenol 1000mg every 6 hours as needed for pain WHEN TO SEEK MEDICAL CARE: Signs or symptoms of an infection: - Fever over 101F - Redness, swelling, or increasing pain around your incision - Drainage of pus, blood, or clear fluid from your incision New neurologic symptoms: - New sensory changes such as numbness, tingling, or altered sensation - New weakness, unsteadiness, difficulty walking, or difficulty using your hands - New pain that radiates down your spine or into one of you extremities - New bowel or bladder dysfunction such as incontinence or retention Constipation not relieved by diet and/or pisg-kap-ksirint stool softeners and laxatives Nausea/vomiting (upset stomach) not controlled with anti-nausea medication Symptoms of a deep venous thrombosis (DVT) or pulmonary embolism (PE): - Swelling/warmth/redness of the leg - Pain in the leg, which can be worse with standing or walking - Chest pain or shortness of breath To help prevent a DVT: - Exercise regularly. Walking, at least several times daily, is helpful. - Ankle pump exercises (like pressing and releasing the gas pedal) should be done regularly. - Keep hydrated with water or other clear liquids (coffee/tea/cola can dehydrate you). - Avoid alcohol and crossing your legs. - Remember not to sit or lay in bed, while awake, for prolonged amounts of time. WOUND CARE: - Keep incisional site clean and dry. You can remove your dressing 2 days after surgery. - You may shower and shampoo incisional site, per your usual routine, 4 days after surgery. - Do not pick/scratch/itch your incision. Pat dry. - Do not submerge your incision underwater (do not bath in a tub or go swimming in any pools, [place]ley, lakes, oceans) for a minimal of 4 weeks after the operation. - Please consider taking supplemental Vitamin C (500mg) for up to 3 months, Zinc (220mg) for 2-6 weeks, and Vitamin A (10,000units) for up to 5 days as these supplements may decrease your risk of infection and promote healing of your surgical wound. - Keep your incision out of the sun for at least 6 months. The new skin/scar tissue is at high riskof having malignant (cancerous) changes and UV sunlight also makes scars more pronounced. DIET: - You may resume your usual diet. - Make sure your stay well hydrate. - A well-balanced diet is recommended for wound healing. - Prune juice or prunes can be added to your diet to assist with any constipation. - If you do not have kidney diease, it is recommended that you consume extra protein to help your body heal. You may consider supplemental protein in the form of shakes, powders, or bars. - Consider foods high in calcium (ex. dairy products or dark, leafy greens) and vitamin D (ex. Seafood) if you have had a spinal fusion as these will help your bones heal. You should also consider taking supplemental calcium (citrate is better than carbonate) 1000mg and vitamin D3 600units daily. ACTIVITY: - You should avoid lifting more than 5 lbs. - Restrict strenuous activity (such as running, jumping, jogging, shoveling, etc.) until cleared byyour surgical team - Avoid bending and twisting your spine. DRIVING: - Do not drive while taking narcotic pain medication. [] You may return to driving 2 weeks after surgery. [x] You may NOT drive until cleared by Neurosurgery. SMOKING: Smoking has a negative impact on bone healing, in terms of delayed union, nonunion, and more complications. Smoking is the leading preventable cause of , and quitting is the single most important thing you can do for your health. However, it's hard to quit smoking and you might need some help. Nicotine in tobacco is an addictive drug and it can be a very difficult to quit. Seventy percent of all adult smokers want to quit smoking but are overwhelmed with the process. We can help! Our Tobacco Dependence Clinics We have tobacco dependence clinics in these locations: [facility] Commun[facility]: [facility] [place], [place] Other Programs at [facility] in [place] Living Free of Tobacco support group: For anyone who has quit tobacco or is considering quitting tobacco. [facility] Health Education Center, Level 4, [place] 3:30 to 4:30 p.m. on the tuesday of every month. Other Programs in the Area [facility] in [place] One-on-one counseling, hypnosis. Calista Lynch [facility] in [place], [place] One-on-one counseling, QuitLine, classes. Sailaja Pal[facility]: One-on-one counseling. All ages and incomes eligible. [facility]: Classes & support group. Surendra Owens [facility] in [place], [place] One-on-one counseling, QuitLine, classes, hypnosis therapy. Kaylee Trejo Information about Quitting Smoking and Tobacco See our Quitting Smoking - Information and Materials page ([email or web address]_on_quitting_smoking.html) for educational information about quitting smoking, downloadable smoking cessation materials, podcasts, websites, helplines, and more. FOLLOW UP PLAN: Future Appointments Date Time Provider Department Center 01/17/2023 1:40 PM Tien Zurita MD [facility] Pain Sp [facility] Incision: [x] Please follow up for staple removal approximately 2 weeks after the operation on 12/23 with yourPrimary Care Provider or with the Neurosurgery HOME SERVICE TECHNICIAN/RN. Your sutures/parminder may also be removed at rehab. Appointments: Please follow up in the Neurosurgery Clinic on 01/17/2023 at 1:40pm. Please call the Neurosurgery Office at [phone] if you do not receive a scheduled appointment within two weeks. Your follow-up appointment will be with: [] Dr. Krishna [] Dr. Snowden [x] Dr. Zurita [] Dr. Duenas [] Dr. Jacques [] Dr. Solis [] Associate Provider Follow-up Imaging: XR - Cervical HOW TO REACH NEUROSURGERY Office Hours: Tuesday through Tuesday, 8am-5pm. Call . On weekends or after office hours: Call [phone] and ask the newspaper press operator apprentice to page the Neurosurgery Resident/Advanced Practice Provider brand communications manager. Neurosurgery Providers Adult Neurosurgery Dr. Juan Duenas Pediatric Neurosurgery Dr. Calista Herrmann Advanced Practice Providers Daniela Troy, Nurse Practitioner (outpatient) Christina Pagan, Physician Superintendent Construction (inpatient/outpatient: neuro-oncology) Vikki Bowen, Physician Superintendent Construction (inpatient) Seb Yuen, Nurse Practitioner (outpatient: pediatric) Joan Kwon, Nurse Practitioner (outpatient: vascular) Elenita Nuñez, Physician Superintendent Construction (outpatient: spine) Dioni Duong, Nurse Practitioner (inpatient/outpatient) Angel Hankins, Physician Superintendent Construction (outpatient) Outpatient Nurses Laura Loyd documented in this encounter Medications at Time [...] as of this encounter Progress Notes * Mali Forde RN - 12/16/2022 12:59 PM EDT Pt cleared for discharge. VSS, IV removed with no complications noted. Pt to provide transportation to rehab. Report call attempted x3 no answer at the facility. Paperwork given to patient for facility. Pt in own wheelchair. * Jf Raphael - 12/16/2022 10:28 AM EDT Office of Care Management/Chef Under Patient Name: Katheryn Carranza : 1960 [facility], 12/16/22 Patient to transport to facility via private car around 12:00 No MD to MD report necessary Please call Nursing Report to , ask for tacking machine operator. Info to accompany patient: Copies of Medication Administration Records and IV sheets for past 10 days. Plan: Chef Under will be available to the patient and Sustainment Logistics Analyst-RN and/or Social Workerfor further assistance. Patient will be discharged to: [facility] Yamini Chandler * Ashley Kwon RN - 12/16/2022 10:18 AM EDTSummary: NOTE OF MEDICAL NECESSITY FOR AMBULANCE TRANSPORT Physician Certification Statement for Non-Emergency Ambulance Services Section I - General Information Katheryn Carranza 1960 Medicare Number: [id number] Transport Date: 12/16/22 (PCS is valid for round trips on this date and for all repetitive trips in the 60-day range as noted below.) Origin: [facility] Destination: [facility] Is the patient's stay covered under Medicare Part A (PPS/DRG)?: Yes Closest appropriate facility? Yes Transfer Type: N/A Section II - Medical Necessity Questionnaire Ambulance Transportation is medically necessary only if other means of transport are contraindicated or would be potentially harmful to the patient. To meet this requirement, the patient must be either bed confined or suffer from a condition such that transport by means other than ambulance is contraindicated by the patient's condition. The following questions must be answered by the medical professional signing below for this form to be valid: 1) Describe the MEDICAL CONDITION (physical and/or mental) of this patient AT THE TIME OF AMBULANCETRANSPORT that requires the patient to be transported in an ambulance and why transport by other means is contraindicated by the patient's condition: s/p surgical intervention for C-spine stenosis 2) Is the patient bed confined as defined below? No To be bed confined the patient must satisfy all three of the following conditions: - unable to get up from bed without assistance AND unable to ambulate AND unable to sit in a chair or wheelchair. 3) Can this patient safely be transported by car or wheelchair van (i.e. seated during transport, without program medical director or monitoring?): No 4) In addition to complete questions 1-3 above, please select any of the following conditions that apply: *Note: supporting documentation for any boxes checked must be maintained in the patient's medical records Moderate/severe pain on movement museum attendant required Unable to tolerate seated position for time needed to transport Section III - Signature of Physician or Healthcare Professional I certify that the above information is true and correct based on my evaluation of this patient, and represent that the patient requires transport by ambulance and that other forms of transport are contraindicated. I understand that this information will be used by the Centers of Medicare and Medicaid Services (CMS) to support the determination of medical necessity for ambulance services, and I represent that I have personal knowledge of the patient's condition at the time of transport. Ashley Kwon RN 12/16/22 Form was electronically signed and dated by the patient's Physician or Healthcare Professional *Form must be signed only by patient's attending physician for scheduled, repetitive transports. For non-repetitive, unscheduled ambulance transports, when unable to obtain the signature of the attending physician, this form was signed by Registered Nurse * Ashley Kwon RN - 12/16/2022 10:17 AM EDT Ambulance transportation is medically necessary at discharge related to s/p surgical intervention for C-spine stenosis, mod/severe pain on movement, unable to tolerated seated position for time of transport, program medical director required.. I have discussed Medicare/Private Insurance reimbursement guidelines for ambulance transport. I have also discussed need to accept the closest facility able to meet clinical care needs of patient. Patient/support system (name of individual)pt and verbalize understanding of their potential financial obligation and agree with ambulance transport. Ashley Kwon MSN-Ed, RN ACM loss claim clerk Office of Care Management Pager #[phone] * Ashley Kwon RN - 12/16/2022 10:14 AM Francis: ANGELITA PAS[facility] PRE-ASSESSMENT SCREENING AND RESIDENT REVIEW (PASRR): LEVEL 1 FOR MENTAL ILLNESS, INTELLECTUAL DISABILITY, OR RELATED CONDITION Federal regulations require that a preadmission screening must occur before any person who is knownto have or possibly may have a serious mental illness and/or intellectual disability, or related condition is admitted to a Medicaid participating nursing facility (NF), regardless of the source of payment for the NF services, and regardless of the individual's known diagnoses. Individual's Last/First Name: Katheryn Carranza : 1960 Where is the individual currently located? [facility] To which Nursing Facility is the individual seeking admission? [facility] Part A - Exemption If the individual is found to meet the conditions of this exemption, the individual may be admittedto a nursing facility without further screening. Hospital Discharge for Short-Stays (30 days or less) Is this individual being admitted to a nursing facility directly following an acute hospitalizationfor treatment of a condition that he/she was hospitalized for? (The attending physician must certify before admission that the individual is likely to require less than 30 days in the nursing facility to qualify for this exemption.) [] Yes (Physician's Signature Required) If it is later decided the individual will exceed the 30 days stay, this form must be completed by the admitting mcc in full and submitted. Part B - Mental Illness Does this individual have one of the following diagnoses? (a major mental disorder diagnosable under the Diagnostic and Statistical Manual of Mental Disorders) [] Schizophrenia Mood Disorder (Depression, Bipolar Disorder) [] Delusional Disorder (Paranoid Disorder) [] Personality Disorder [] Somatoform Disorder [] Psychotic Disorder (Schizoaffective Disorder; Atypical Psychosis; Schizophreniform Disorder; Brief Reactive Psychosis) [] Anxiety Disorder (Panic Disorder; Phobia; Obsessive-Compulsive Disorder; Post-Traumatic Stress Disorders; Severe Anxiety) [] Substance Use Disorder [x] None [] Other mental disorder that may lead to chronic disability: Has this individual had a disability or significant impairment in major life functions in the past 6 months due to a psychiatric disorder or substance use disorder? [place] YES if any of the subcategories below are checked. [] YES [x] NO [] Interpersonal Functioning: This individual has serious difficulty interacting appropriately and communicating effectively with other people, may have a history of evictions or altercation with others, fear of others, avoidance of interpersonal relationships and social isolation, and unstable employment. [] Completing Tasks: This individual has serious difficulty sustaining focused attention, completing tasks, difficulties with concentration, inability to complete simple tasks within an established time period, makes frequent errors, or requires assistance to complete tasks. [] Adapting to Change: This individual has serious difficulty in adapting to typical changes in work, school, family, or social interactions, may have excessive irritability or agitation, exacerbatedsigns and symptoms associated with the illness checked above, withdrawal from situations, self-injurious behaviors, self-mutilation, suicidal behavior, physical violence or threats, appetite disturbance, delusions, hallucinations, serious loss of interest in hobbies or activities, and sustained tearfulness. Has this individual had a hospitalization for a psychiatric condition or substance use disorder within the past 3 years? OR Has this individual required intensive psychiatric treatment (partial hospitalization/day treatment, crisis bed, in-home supportive services) to maintain his/her functioning in the community? [] YES [x] NO Does this person have a current or recent mental health provider? Please list name, program and contact information: Diagnosis of Dementia Is the individual's Primary diagnosis dementia as described in the Diagnostic and Statistical Manual of Mental Disorders? [] YES [x] NO If yes, documented evidence of the diagnosis (physician note, discharge summary, work-up, comprehensive mental status exam) must be attached. If yes, the individual is exempt from further PASRR Mental Health evaluation, even if they have been diagnosed and treated for a mental illness. If ALL the responses to question 1-3 in Part B are Yes, a Level II Mental Health PASRR evaluation is required. Please notify the PASRR Coordinator, Noemi [place]ozano, [place] [address] , or , or call . Part C - Intellectual Disability or Related Condition Does this individual have a diagnosis of intellectual /developmental disability? [] YES [x] NO Age when diagnosis was established Unknown Does this individual have a ???related condition?? (e.g. cerebral palsy, epilepsy, brain injury-resulting in significant impairment in intellectual functioning and adaptive behavior)? [] YES [x] NO Age of onset Unknown Does the individual have a history of intellectual/developmental disability or related condition? [] YES [x] NO Is there presenting evidence (cognitive or behavioral) that indicated this individual may have an intellectual/developmental disability or related condition? [] YES [x] NO If yes, explain: Was this individual referred by or receiving services from an agency that serves individuals with intellectual/developmental disabilities and/or related conditions? [] YES [x] NO If yes, name of agency: If response to ANY question in Part C is YES, a Level II DEVELOPMENTAL DISABILITIES PASRR is required. Notify the [facility] PASRR coordinator, [address], [address] [place] [address] or FAX , or call Completed copies of this form have been distributed to: [facility] nursing facility Name & Title of Person Completing Form: Ashley Kwon RN Signature of Person Completing Form: Ashley Kwon MSN-Ed, RN ACM loss claim clerk Office of Care Management Pager #[phone] Hospital/Facility Address: [address] [place] [address] Phone #: [phone] Email: [email or web address] Date: 12/16/22 Please mail or fax all original signed LEVEL I PASRR forms to: Department of Mental Health, Attn: PASRR Coordinator, [address] [place] [address], [address] [phone] or * Sudeep Womack MD - 12/16/2022 5:06 AM EDT NEUROSURGERY PROGRESS NOTE PLEASE PAGE [phone] WITH QUESTIONS ID: Katheryn Carranza is a 62 y.o. female with CSM who presented with worsening weakness and urinary incontinence since a fall 4 days prior to presentation. HD# [id number] 12/02/22 Dr. Zurita: C4-T2 PSIF, C5-7 laminectomies INTERVAL HX/ROS: No acute events reported overnight. Patient has no complaints this morning. Patient is neurologically stable. Patient tolerating PO Ambulating with assistance ROS: Patient denies fever, chills, headache, nausea, vomiting, and bowel or bladder symptoms. MEDICATIONS: Scheduled Meds: docusate sodium 100 mg Oral BID polyethylene glycoL (MIRALAX) oral powder 17 g Oral Daily acetaminophen 975 mg Oral Q6H YNES methocarbamoL 500 mg Oral Q8H heparin (porcine) 5,000 Units Subcutaneous 2 times per day amitriptyline 100 mg Oral Nightly atenoloL 50 mg Oral Daily loratadine 10 mg Oral Daily QUEtiapine 100 mg Oral Nightly sucralfate 1 g Oral BID AC sodium chloride 0.9 % (flush) 5 mL Intravenous BID senna-docusate 2 tablet Oral BID famotidine 20 mg Oral BID Or famotidine 20 mg Intravenous BID nicotine 1 patch Transdermal Daily And Patch Verification 1 patch Transdermal BID gabapentin 600 mg Oral TID lidocaine 3 patch Transdermal Q24H Continuous Infusions: PRN Meds: diclofenac, calcium carbonate, bisacodyL, dextromethorphan, oxyCODONE OR oxyCODONE, diazePAM, thrombin (Bovine), gelatin compressed, vancomycin, lidocaine-EPINEPHrine, sodium chloride 0.9 % (flush), lidocaine, ondansetron OR ondansetron, labetaloL, hydrALAZINE EXAM: No drains GEN: NAD NEURO: Speech fluent MOTOR: RUE:5 LUE:5/5 RLE: 10/08 LLE: HF 4-/5, KE 5, DF/PF 4+ SILT4 Dressing c/d/i with parminder Vitals: Temp: [36 ??C (96.8 ??F)-36.6 ??C (97.9 ??F)] Heart Rate: [82] Resp: [16-18] BP: (101-155)/(62-104) SpO2: [95 %-98 %] Heart Rate from SpO2: [82 bpm-97 bpm] BMI: Weight: 99.4 kg (219 lb 2.2 oz) (12/13/22 0551) BMI (Calculated): 37.69 BMI Classification: Obese I/O: I/O last 3 completed shifts: In: 1586 [P.O.:1586] Out: - LABS: No results for input(s): WBC, HGB, PLATELET in the last 72 hours. No results for input(s): NA, K, CL, CO2, BUN, CREATININE in the last 72 hours. No results for input(s): PT, INR in the last 72 hours. IMAGING: No new cranial imaging Active Hospital Problems Diagnosis Cervical myelopathy Resolved Hospital Problems No resolved problems to display. Active Non-Hospital Problems Diagnosis Serous adenofibroma of left ovary Moderate opioid use disorder Thoracic compression fracture, sequela Herniation of lumbar intervertebral disc with radiculopathy Adnexal mass Primary osteoarthritis of right knee Carpal tunnel syndrome, bilateral Trigger thumb of left hand Knee pain, bilateral Osteoarthritis of patellofemoral joint Cervical spondylosis without myelopathy Cervical disc displacement Cervical radiculitis Occipital neuralgia Neck pain on left side Breast hypertrophy A/P: Katheryn Carranza is a 62 y.o. 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 Now s/p C4-T2 PSIF, C5-7 laminectomies.Overall doing well post op. -Neuro checks: qshift -goal SBP < 160 -DVT prophylaxis: SCDs, SQH -Pain control -Diet: Regular diet. -Activity as tolerated. -PT/OT/ELECTRICAL EQUIPMENT TESTER : Anticipated Discharge Disposition (PT): halfway facility, swing bed rehabilitation facility (12/14/22 1051)} -Dispo: MR for d/c Please page [phone] with questions/concerns for in-house NSGY patients Sudeep Womack MD 12/16/2022 * Louie Rosario MD - 12/15/2022 10:12 AM EDT NEUROSURGERY PROGRESS NOTE PLEASE PAGE [phone] WITH QUESTIONS ID: Katheryn Carranza is a 62 y.o. female with CSM who presented with worsening weakness and urinary incontinence since a fall 4 days prior to presentation. HD# 15 12/02/22 Dr. Zurita: C4-T2 PSIF, C5-7 laminectomies INTERVAL HX/ROS: -MICHAEL EXAM: GEN: NAD NEURO: Speech fluent MOTOR: RUE:5/5 LUE:5/5 RLE: 5/5 LLE: HF 4-/5, KE 5, DF/PF 4+ SILT4 Dressing c/d/i with parminder IMAGING: No new neuro imaging A/P: Katheryn Carranza is a 62 y.o. 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 Now s/p C4-T2 PSIF, C5-7 laminectomies.Overall doing well post op. -Neuro checks: qshift -goal SBP < 160 -DVT prophylaxis: SCDs, SQH -Pain control -Diet: Regular diet. -Activity as tolerated. -PT/OT/ELECTRICAL EQUIPMENT TESTER : Anticipated Discharge Disposition (PT): halfway facility, swing bed rehabilitation facility (12/14/22 9911)} -Dispo: MR for d/c Please page [phone] with questions/concerns for in-house NSGY patients MEDICATIONS: Scheduled Meds: docusate sodium 100 mg Oral BID polyethylene glycoL (MIRALAX) oral powder 17 g Oral Daily acetaminophen 975 mg Oral Q6H YNES methocarbamoL 500 mg Oral Q8H heparin (porcine) 5,000 Units Subcutaneous 2 times per day amitriptyline 100 mg Oral Nightly atenoloL 50 mg Oral Daily loratadine 10 mg Oral Daily QUEtiapine 100 mg Oral Nightly sucralfate 1 g Oral BID AC sodium chloride 0.9 % (flush) 5 mL Intravenous BID senna-docusate 2 tablet Oral BID famotidine 20 mg Oral BID Or famotidine 20 mg Intravenous BID nicotine 1 patch Transdermal Daily And Patch Verification 1 patch Transdermal BID gabapentin 600 mg Oral TID lidocaine 3 patch Transdermal Q24H Continuous Infusions: PRN Meds:.diclofenac, calcium carbonate, bisacodyL, dextromethorphan, oxyCODONE OR oxyCODONE, diazePAM, thrombin (Bovine), gelatin compressed, vancomycin, lidocaine-EPINEPHrine, sodium chloride 0.9 % (flush), lidocaine, ondansetron OR ondansetron, labetaloL, hydrALAZINE Vitals: Temp: [36 ??C (96.8 ??F)-37.4 ??C (99.3 ??F)] Heart Rate: [98] Resp: [16] BP: (101-119)/(62-79) SpO2: [94 %-96 %] Heart Rate from SpO2: [77 bpm-98 bpm] BMI: Weight: 99.4 kg (219 lb 2.2 oz) (12/13/22 0551) BMI (Calculated): 37.69 BMI Classification: Obese I/O: I/O last 3 completed shifts: In: 800 [P.O.:800] Out: 0 LABS: No results for input(s): WBC, HGB, PLATELET in the last 72 hours. No results for input(s): NA, K, CL, CO2, BUN, CREATININE in the last 72 hours. No results for input(s): PT, INR in the last 72 hours. Active Hospital Problems Diagnosis Cervical myelopathy Resolved Hospital Problems No resolved problems to display. Active Non-Hospital Problems Diagnosis Serous adenofibroma of left ovary Moderate opioid use disorder Thoracic compression fracture, sequela Herniation of lumbar intervertebral disc with radiculopathy Adnexal mass Primary osteoarthritis of right knee Carpal tunnel syndrome, bilateral Trigger thumb of left hand Knee pain, bilateral Osteoarthritis of patellofemoral joint Cervical spondylosis without myelopathy Cervical disc displacement Cervical radiculitis Occipital neuralgia Neck pain on left side Breast hypertrophy Louie Rosario MD 12/15/2022 * Gauri Villanueva, PT - 12/14/2022 10:55 AM EDT Physical Therapy Note Treatment Number PT: 4 Patient profile: Katheryn Carranza is a 62 y.o. female with CSM who presented with worsening weakness and urinary incontinence since a fall 4 days prior to presentation. OR on 12/02/22 for C4-T2 PSIF, C5-7 laminectomies Interval Events: Per Neuro Surg note 12/14/22: -MICHAEL -Neuro stable - Medically ready for DC Social History: Home set-up: Pt lives with her Prieto in a multi-level home. All of her needs have been met on the first level for the last few months due to inability to negotiate the FOS. She sleeps in a recliner chair. Bathroom Set-up: tub shower with shower chair Stairs: 3STE without rail Baseline Mobility: Pt ambulates with a 4WW at baseline, and uses a w/c for longer distances. She was limited in her ability to negotiate her home environment, and daughter has been assisting her withbathing. 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 Mobility and Positioning Recommendations: Mobilize pt with 1-2A using a FWW Please encourage up to chair for meal times as able. Subjective: My feet feel asleep: pins and needles. Objective: Patient seen for physical therapy and demonstrated the following: Pain: C/o pain in the (B) scapular region Bed Mobility: Sit to Supine: wanted to get back to bed, Mod assist to get into bed as her scapular region sore Transfers: Sit<>Stand: min assist to rise from recliner and commode to the FWW. Assist while holding walker to tie pants and roll up pantlegs, may I sit to rest before walking. Gait: Distance: 25' x 2 with FWW and Min A, 2nd person following with w/c as she commented my knee's give out sometimes. L LE more effort to swing, dec step length, poor heel strike L/foot flat. Balance: Sitting Static: good- able to perform own hygiene on commode after voiding. Education: Pt asking questions about DC and going to rehab; stressed importance of mobility post-opand to help her progression working towards goal of return to home; spouse working so she wants to be (I) prior to return home. Assessment: Katheryn Carranza was seen today for physical therapy treatment session for continuation of POC. Pt presented willing to work with physical therapy, eager to regain her strength and independence as she mentioned she's had several falls @ home and will be alone when spouse is working. Today's session focusing on mobility training as she demonstrates decreased sensation,decreased strength,& knee's buckling putting her at ongoing risk of falling. She's relying on walker heavily whichis causing her more pain in scapular region so limited tolerance for walking distance. Pt able to mobilize with walker and 1 assist. She has continued post op spine precautions & deconditioning impacting her ability to safely and independently ambulate or manage her own needs. Pt will benefit from ongoing therapeutic interventions to achieve therapy goals, she is eager to go to rehab as she'shad home services in past and realizes this is not enough currently. She is still below her functional baseline and will benefit from a rehabilitative setting prior to going home. Discharge Recommendations: Based on the current findings, Anticipated Discharge Disposition (PT): halfway facility, swing bed rehabilitation facility when medically ready for hospital discharge. Consult Recommendations: No other consults recommended at this time. Equipment needs: Anticipated Equipment Needs at Discharge (PT): to be determined (@ rehab (pt has rollator @ home)) Goals: To be achieved by 12/26/22: ONGOING Pt. to demonstrate knowledge of safety limitations and precautions and will appropriately request assistance for functional activities and to mobilize. Pt. to perform bed mobility with supervision. Pt. to perform sit<>stand transfers with supervision using a front wheeled walker. Pt. to ambulate 100 feet with supervision using a front wheeled walker. Pt. to ambulate up/down 3 step/stairs using one hand hold and straight cane with min A. Family or caregiver to demonstrate understanding of therapeutic interventions to support the care of the patient. Plan: Therapy Frequency (PT): 2-4 times/wk for therapy interventions as outlined in initial evaluation. Patient agrees with plan as stated. Total Minutes, Physical Therapy: 46 (TE-F x 3) Gauri Villanueva PT Pager: [phone] Physical Therapy Inpatient Rehabilitation Department * Lelia Carballo OTA - 12/14/2022 9:01 AM EDT Occupational Therapy Treatment Note Treatment Number OT: 4 Patient profile: Katheryn Carranza is a 62 y.o. female admitted on 11/30/2022 for worsening weakness after a fall at home. Known severe cervical stenosis. 12/02/22: 1. C4-5, C5-6, and C6-7 laminectomies and facetecomies with excision of ossified ligamentum flavum at C6-7 2. Bilateral postero-lateral arthrodesis, C4-5, C5-6, C6-7, C7-T1, T1-2 3. Bilateral posterior instrumentation, Medtronic Infinity, with stereotactic navigation, C4-T2 4. Local autograft and morselized allograft Social History: Patient lives with her . 2 daughters, both of whom live near by. Home Setup: 2 level, 3 REGINO. Pt reports she has been staying on the first floor for some time, unable to negotiate the stairs. Tub/shower. Sleeps in recliner chair. DME: wheelchair, shower seat, 4WW Baseline ADL/Mobility: Unclear, Daughter assists with showering. Per chart, pt with frequent falls at home walking and falling out of wheelchair. Precautions/Special Considerations: Pure wick, SBP <160, minimize bending/lifting/twisting, fall Interval History: ERICA S: I was having to figure out how to do all this stuff at home. And I was in a lot of pain. O: Patient seen for skilled OT treatment, and demonstrated the following: Activities of Daily Living: Bathing: Pt sat EOB preformed UB and LB bathing with bath wipes, stood to wash periarea with cga Dressing: min A to swap out matt gown, pt donned pants seated in recliner with increased time tossed Toileting: Pt doing well per RN getting up to bsc vs using external catheter. Pt able to perform stand pivot transfer with hand hold assist, hunched over posture Self Feeding: Pt able to self feed Functional Mobility: Supine to sit: Max cues/education for log roll, pt min A with bed features Sit <> stand: Hand hold assist Ambulation: Pt stand step to bsc then mobilized to recliner with hand hold assist, pt with hunched over posture and wobbly gait Balance: Sitting balance: supervision Cognition: Behavior / Mood: alert and cooperative Alert and oriented to: person, place, time of day, and situation Follows commands: 1 step, 100% of the time, requires increased time, and requires repetition Attention: distractible Safety awareness: decreased insight into deficits Endurance: Decreased activity tolerance Vitals: VSS per monitor Pain: Displayed pain behaviors Did not rate, co pain in cervical spine area Education: Pt/family/caregiver education ongoing regarding: Role of occupational therapy/rehabilitation, Transfers, Assistive device/technique, ADL, Precautions/Protocol, Functional Mobility, and Discharge planning. Staff Communication: Patient status, treatment, and mobility recommendations discussed with nursing/other staff. ASSESSMENT: Pt seen for continuation of OT POC. Pt with improved ability to participate with reportof pain better managed, continues to require assist to manage ADL tasks and mobility will need rehab prior to returning home. Based on current performance pt will need SNF prior to returning home. Ptwill benefit from ongoing therapeutic interventions to achieve pt's and therapy goals Anticipated Discharge Disposition (OT): halfway facility Equipment Recommendations: Equipment Needs Upon Discharge (OT): to be determined Daily schedule / Staff Recommendations: Encourage OOB activity and participation in all self care tasks, transfer to recliner or bsc as appropriate/tolerated. Goals: To be achieved by 12/18/22. Pt will sit EOB for 10 minutes with set up for ADLs Pt will be supervision for LE ADLS with AE as needed Pt will be supervision with walker functional mobility to the bathroom and back Pt will be independent with toilet hygiene Pt will stand sink level for light grooming tasks with supervision Pt will be supervision for all functional transfers from a variety of surfaces Therapy Frequency (OT): 2-4 times/wk Total Minutes, Occupational Therapy: 30 (2x schm) Pager: [phone] NALLELY Arriola Occupational Therapy Rehabilitation Department * Louie Rosario MD - 12/14/2022 7:02 AM EDT NEUROSURGERY PROGRESS NOTE PLEASE PAGE [phone] WITH QUESTIONS ID: Katheryn Carranza is a 62 y.o. female with CSM who presented with worsening weakness and urinary incontinence since a fall 4 days prior to presentation. HD# 14 12/02/22 Dr. Mirandat: C4-T2 PSIF, C5-7 laminectomies INTERVAL HX/ROS: -MICHAEL EXAM: GEN: NAD NEURO: Speech fluent MOTOR: RUE:5/5 LUE:5/5 RLE: 5/5 LLE: HF 4-/5, KE 5, DF/PF 4+ SILT4 Dressing c/d/i with parminder IMAGING: No new neuro imaging A/P: Katheryn Carranza is a 62 y.o. 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 Now s/p C4-T2 PSIF, C5-7 laminectomies.Overall doing well post op. -Neuro checks: qshift -goal SBP < 160 -DVT prophylaxis: SCDs, SQH -Pain control -Diet: Regular diet. -Activity as tolerated. -PT/OT/ELECTRICAL EQUIPMENT TESTER : Anticipated Discharge Disposition (PT): halfway facility, swing bed rehabilitation facility (12/09/22 1674)} -Dispo: MR for d/c Please page [phone] with questions/concerns for in-house NSGY patients MEDICATIONS: Scheduled Meds: docusate sodium 100 mg Oral BID polyethylene glycoL (MIRALAX) oral powder 17 g Oral Daily acetaminophen 975 mg Oral Q6H YNES methocarbamoL 500 mg Oral Q8H heparin (porcine) 5,000 Units Subcutaneous 2 times per day amitriptyline 100 mg Oral Nightly atenoloL 50 mg Oral Daily loratadine 10 mg Oral Daily QUEtiapine 100 mg Oral Nightly sucralfate 1 g Oral BID AC sodium chloride 0.9 % (flush) 5 mL Intravenous BID senna-docusate 2 tablet Oral BID famotidine 20 mg Oral BID Or famotidine 20 mg Intravenous BID nicotine 1 patch Transdermal Daily And Patch Verification 1 patch Transdermal BID gabapentin 600 mg Oral TID lidocaine 3 patch Transdermal Q24H Continuous Infusions: PRN Meds:.calcium carbonate, bisacodyL, dextromethorphan, oxyCODONE OR oxyCODONE, diazePAM, thrombin (Bovine), gelatin compressed, vancomycin, lidocaine-EPINEPHrine, sodium chloride 0.9 % (flush), lidocaine, ondansetron OR ondansetron, labetaloL, hydrALAZINE Vitals: Temp: [36.5 ??C (97.7 ??F)-36.8 ??C (98.2 ??F)] Heart Rate: -- Resp: [16-20] BP: (109-132)/(70-75) SpO2: [94 %-98 %] Heart Rate from SpO2: [83 bpm-94 bpm] BMI: Weight: 99.4 kg (219 lb 2.2 oz) (12/13/22 0551) BMI (Calculated): 37.69 BMI Classification: Obese I/O: I/O last 3 completed shifts: In: 1700 [P.O.:1700] Out: 0 LABS: No results for input(s): WBC, HGB, PLATELET in the last 72 hours. No results for input(s): NA, K, CL, CO2, BUN, CREATININE in the last 72 hours. No results for input(s): PT, INR in the last 72 hours. Active Hospital Problems Diagnosis Cervical myelopathy Resolved Hospital Problems No resolved problems to display. Active Non-Hospital Problems Diagnosis Serous adenofibroma of left ovary Moderate opioid use disorder Thoracic compression fracture, sequela Herniation of lumbar intervertebral disc with radiculopathy Adnexal mass Primary osteoarthritis of right knee Carpal tunnel syndrome, bilateral Trigger thumb of left hand Knee pain, bilateral Osteoarthritis of patellofemoral joint Cervical spondylosis without myelopathy Cervical disc displacement Cervical radiculitis Occipital neuralgia Neck pain on left side Breast hypertrophy Louie Rosario MD 12/14/2022 * Aimee Leung - 12/13/2022 11:54 AM EDT Nutrition Services Note - Low Nutrition Acuity Katheryn Carranza is a 62 y.o. female Reason for intervention: follow up Nutrition Plan: Continue diet order Monitor good PO Tums Added fruit 1x/day Added chips 1x/day Monitor weight with source Patient scheduled for a follow up nutrition evaluation. Elementary Assistant Teacher met with pt at bedside. Per documentation patient has excellent PO intakes recorded at 75-100% over the past 3 days. According to [employer] software they have ordered an average ~2671kcals/day within the same duration. Pt shares an okay appetite and eats all of their breakfast and less of their lunch and dinner d/t yucky entree's and being picky. Elementary Assistant Teacher suggested adding afternoon snacks to help with afternoon hunger, pt agreed. Elementary Assistant Teacher also informed pt of access to the cafeteria and other food in the hospital. Kitchen to send fruit and chips 1x/day per pt request. Weight loss observed per graph, previously reported weights and no sourcing recorded. See I&O's in chart. Pt unaware of UBW and does not know if their current weight of 219lbs is within their normal range. Please update and trend wts to allow for ongoing assessment of weight changes. Clinical Nutrition to monitor and follow. Active Orders Diet Regular diet Frequency: Effective Now Number of Occurrences: Until Specified Admit Weight: 104.33 kg Estimated body mass index is 35.91 kg/m?? as calculated from the following: Height as of this encounter: 166.4 cm (5' 5.5). Weight as of this encounter: 99.4 kg (219 lb 2.2 oz). Wt Readings from Last 5 Encounters: 12/13/22 99.4 kg (219 lb 2.2 oz) 11/03/22 104.3 kg (230 lb) 08/16/22 103.4 kg (227 lb 14.4 oz) 08/08/22 100 kg (220 lb 7.4 oz) 04/27/16 82.6 kg (182 lb) Weight loss: not clinically significant Appetite: Excellent (75%-100%) Food allergies:no known food allergies Chewing/Swallowing difficulty: none Nausea/Vomiting: no nausea and no vomiting Last Bowel Movement: 12/13/22 Patient education / questions: all nutrition related questions answered at this time Aimee Leung Technology Development Intern * Caitlin Humphrey MSW - 12/13/2022 11:50 AM EDT NET WPF DEVELOPER completed the [employer] [place] long-term care Medicaid application with patient and spouse, Prieto. Application and financial verification given to LTC Chef Under, Jade Valente to upload to Department of [place] Health Access (HA). Spouse has made two calls to his employer's HR department to see if they would be able to get patient's new [facility]'s ID member number and group number instead of waiting for new insurance cards to show up in their mail. Patient and family also requesting OLIVIA DONOHUE, Ashley Kwon make a SNF referral to [facility], RN CM informed. NET WPF DEVELOPER to continue to provide psychosocial supports for patient and family if/when needed. * Ashley Kwon RN - 12/13/2022 11:07 AM EDT Pt/family would like to expand the search for SNF to include: [facility] ([facility] [address] [place] [id number] P: [phone] F: [phone] LYUDMILA: 12/13/22 Ashley Kwon MSN-Ed, RN ACM loss claim clerk Office of Care Management Pager #[phone] * Louie Rosario MD - 12/13/2022 7:00 AM EDT NEUROSURGERY PROGRESS NOTE PLEASE PAGE [phone] WITH QUESTIONS ID: Katheryn Carranza is a 62 y.o. female with CSM who presented with worsening weakness and urinary incontinence since a fall 4 days prior to presentation. HD# 13 12/02/22 Dr. Zurita: C4-T2 PSIF, C5-7 laminectomies INTERVAL HX/ROS: -MICHAEL EXAM: GEN: NAD NEURO: Speech fluent MOTOR: RUE:5/5 LUE:5/5 RLE: 5/5 LLE: HF 4-/5, KE 5, DF/PF 4+ SILT4 Dressing c/d/i with parminder IMAGING: No new neuro imaging A/P: Katheryn Carranza is a 62 y.o. 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 Now s/p C4-T2 PSIF, C5-7 laminectomies.Overall doing well post op. -Neuro checks: qshift -goal SBP < 160 -DVT prophylaxis: SCDs, SQH -Pain control -Diet: Regular diet. -Activity as tolerated. -PT/OT/ELECTRICAL EQUIPMENT TESTER : Anticipated Discharge Disposition (PT): halfway facility, swing bed rehabilitation facility (12/09/22 3240)} -Dispo: MR for d/c Please page [phone] with questions/concerns for in-house NSGY patients MEDICATIONS: Scheduled Meds: docusate sodium 100 mg Oral BID polyethylene glycoL (MIRALAX) oral powder 17 g Oral Daily acetaminophen 975 mg Oral Q6H YNES methocarbamoL 500 mg Oral Q8H heparin (porcine) 5,000 Units Subcutaneous 2 times per day amitriptyline 100 mg Oral Nightly atenoloL 50 mg Oral Daily loratadine 10 mg Oral Daily QUEtiapine 100 mg Oral Nightly sucralfate 1 g Oral BID AC sodium chloride 0.9 % (flush) 5 mL Intravenous BID senna-docusate 2 tablet Oral BID famotidine 20 mg Oral BID Or famotidine 20 mg Intravenous BID nicotine 1 patch Transdermal Daily And Patch Verification 1 patch Transdermal BID gabapentin 600 mg Oral TID lidocaine 3 patch Transdermal Q24H Continuous Infusions: PRN Meds:.calcium carbonate, bisacodyL, dextromethorphan, oxyCODONE OR oxyCODONE, diazePAM, thrombin (Bovine), gelatin compressed, vancomycin, lidocaine-EPINEPHrine, sodium chloride 0.9 % (flush), lidocaine, ondansetron OR ondansetron, labetaloL, hydrALAZINE Vitals: Temp: [36.5 ??C (97.7 ??F)-37.2 ??C (99 ??F)] Heart Rate: -- Resp: [13-17] BP: (112-139)/(78-80) SpO2: [95 %-98 %] Heart Rate from SpO2: [81 bpm-98 bpm] BMI: Weight: 99.4 kg (219 lb 2.2 oz) (12/13/22 0551) BMI (Calculated): 37.69 BMI Classification: Obese I/O: I/O last 3 completed shifts: In: 1070 [P.O.:1070] Out: 1950 [Urine:1950] LABS: No results for input(s): WBC, HGB, PLATELET in the last 72 hours. No results for input(s): NA, K, CL, CO2, BUN, CREATININE in the last 72 hours. No results for input(s): PT, INR in the last 72 hours. Active Hospital Problems Diagnosis Cervical myelopathy Resolved Hospital Problems No resolved problems to display. Active Non-Hospital Problems Diagnosis Serous adenofibroma of left ovary Moderate opioid use disorder Thoracic compression fracture, sequela Herniation of lumbar intervertebral disc with radiculopathy Adnexal mass Primary osteoarthritis of right knee Carpal tunnel syndrome, bilateral Trigger thumb of left hand Knee pain, bilateral Osteoarthritis of patellofemoral joint Cervical spondylosis without myelopathy Cervical disc displacement Cervical radiculitis Occipital neuralgia Neck pain on left side Breast hypertrophy Louie Rosario MD 12/13/2022 * Erich Rubio RN - 12/13/2022 4:46 AM EDT OUTCOME EVALUATION NOTE: OUTCOME SUMMARY: Patient is alert and oriented x4. AVSS on RA. PRN pain medications used for pain. Patient gets up to bedside commode to void with adequate urine output. Patient had 1 BM. No major events overnight. PLAN MOVING FORWARD: Q 6 hr VS while awake Plan to manage pain and monitor for neuro changes INDIVIDUALIZED FALL PREVENTION INTERVENTIONS: Assistance: SBA, FWW, Supervision: Arms reach, Surveillance: Bed locked in low position, call lange within reach, purposeful hourly rounding, clutter free environment, bed/chair alarm on, family at bedside Patient-specific fall prevention interventions for sensory deficits provided: N/A CPG GOAL OUTCOME EVALUATION: Continue care plan as documented. * Kevon Kong MD - 12/12/2022 7:30 AM EDT NEUROSURGERY PROGRESS NOTE PLEASE PAGE [phone] WITH QUESTIONS ID: Katheryn Carranza is a 62 y.o. female with CSM who presented with worsening weakness and urinary incontinence since a fall 4 days prior to presentation. HD# 12 12/02/22 Dr. Echt: C4-T2 PSIF, C5-7 laminectomies INTERVAL HX/ROS: -MICHAEL EXAM: GEN: NAD NEURO: Speech fluent MOTOR: RUE:5/5 LUE:5/5 RLE: 5/5 LLE: HF 4-/5, KE 5, DF/PF 4+ SILT4 Dressing c/d/i with parminder IMAGING: No new neuro imaging A/P: Katheryn Carranza is a 62 y.o. 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 Now s/p C4-T2 PSIF, C5-7 laminectomies.Overall doing well post op. -Neuro checks: qshift -goal SBP < 160 -DVT prophylaxis: SCDs, SQH -Pain control -Diet: Regular diet. -Activity as tolerated. -Macrobid x 5d for UTI started 12/04 -PT/OT/ELECTRICAL EQUIPMENT TESTER : Anticipated Discharge Disposition (PT): halfway facility, swing bed rehabilitation facility (12/09/22 1417)} -Dispo: MR for d/c Please page [phone] with questions/concerns for in-house NSGY patients MEDICATIONS: Scheduled Meds: docusate sodium 100 mg Oral BID polyethylene glycoL (MIRALAX) oral powder 17 g Oral Daily acetaminophen 975 mg Oral Q6H YNES methocarbamoL 500 mg Oral Q8H heparin (porcine) 5,000 Units Subcutaneous 2 times per day amitriptyline 100 mg Oral Nightly atenoloL 50 mg Oral Daily loratadine 10 mg Oral Daily QUEtiapine 100 mg Oral Nightly sucralfate 1 g Oral BID AC sodium chloride 0.9 % (flush) 5 mL Intravenous BID senna-docusate 2 tablet Oral BID famotidine 20 mg Oral BID Or famotidine 20 mg Intravenous BID nicotine 1 patch Transdermal Daily And Patch Verification 1 patch Transdermal BID gabapentin 600 mg Oral TID lidocaine 3 patch Transdermal Q24H Continuous Infusions: PRN Meds:.calcium carbonate, bisacodyL, dextromethorphan, oxyCODONE OR oxyCODONE, diazePAM, thrombin (Bovine), gelatin compressed, vancomycin, lidocaine-EPINEPHrine, sodium chloride 0.9 % (flush), lidocaine, ondansetron OR ondansetron, labetaloL, hydrALAZINE Vitals: Temp: [36.8 ??C (98.2 ??F)-37.2 ??C (99 ??F)] Heart Rate: -- Resp: [16-20] BP: (106-132)/(71-85) SpO2: [93 %-97 %] Heart Rate from SpO2: [84 bpm-107 bpm] BMI: Weight: 107.1 kg (236 lb 1.8 oz) (12/05/22 0600) BMI (Calculated): 37.69 BMI Classification: Obese I/O: I/O last 3 completed shifts: In: 600 [P.O.:600] Out: 2750 [Urine:2750] LABS: No results for input(s): WBC, HGB, PLATELET in the last 72 hours. No results for input(s): NA, K, CL, CO2, BUN, CREATININE in the last 72 hours. No results for input(s): PT, INR in the last 72 hours. Active Hospital Problems Diagnosis Cervical myelopathy Resolved Hospital Problems No resolved problems to display. Active Non-Hospital Problems Diagnosis Serous adenofibroma of left ovary Moderate opioid use disorder Thoracic compression fracture, sequela Herniation of lumbar intervertebral disc with radiculopathy Adnexal mass Primary osteoarthritis of right knee Carpal tunnel syndrome, bilateral Trigger thumb of left hand Knee pain, bilateral Osteoarthritis of patellofemoral joint Cervical spondylosis without myelopathy Cervical disc displacement Cervical radiculitis Occipital neuralgia Neck pain on left side Breast hypertrophy Kevon Kong MD 12/12/2022 * Sapphire Crawford RN - 12/12/2022 4:43 AM EDT Page Confirmation To Pager number: [phone] From Submitter: Sapphire Crawford Urgency Level: [facility] Callback Number: [phone] The following Message was sent: [FYI] - Callback:[phone] - just an fyi, pt HR has been resting >100 frequently over past 48hr. - Sapphire Crawford The following status was returned from the weather observer: Page for [phone] successfully sent to [phone] having status of Available. * Calista Benjamin RN - 12/11/2022 6:14 PM EDT Images from the original note were not included. OUTCOME EVALUATION NOTE: OUTCOME SUMMARY: AOx4, VSS stable, on RA. Tolerating diet well. Voiding adequately up to bedside commode with x1 assist and FWW. Pain moderately controlled with scheduled and PRN oxy and valium. Surgical site CDI with parminder intact. Swelling noted at incision. MD aware. 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 OOB with all meals, and most of day, must be encouraged and firm with this per team. No purewick per team, continue maximizing her independence. PLAN MOVING FORWARD: Q4VS Q4NC Encourage OOB Pain control Placement * Seb Abernathy PA - 12/11/2022 5:19 AM EDT NEUROSURGERY PROGRESS NOTE PLEASE PAGE [phone] WITH QUESTIONS ID: Katheryn Carranza is a 62 y.o. female with CSM who presented with worsening weakness and urinary incontinence since a fall 4 days prior to presentation. HD# 11 POD # 9 Days Post-Op 12/02/22 Dr. Mirandat: C4-T2 PSIF, C5-7 laminectomies INTERVAL HX/ROS: -MICHAEL -Neuro stable EXAM: GEN: Overweight elderly woman, NAD NEURO: Speech fluent and appropriate. Face symmetric. Edentulous. MOTOR: RUE:5/5 LUE:5/5 RLE: 5/5 LLE: 4-/5 HF, 5KE, 4+ DF, 4+ PF SILT x4 BUE paresthesias in bilateral C7/C8 distribution improved Dressing c/d/i with parminder A/P: Katheryn Carranza is a 62 y.o. 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 Now s/p C4-T2 PSIF, C5-7 laminectomies. Recovering well. Will continue with mobilization with PTOT and pain control. Medically ready for discharge. Awaiting Rehab. -Neuro checks: q4h -Pain control -goal SBP < 160 -Diet: Regular diet. -RBOs -DVT prophylaxis: SCDs, SQH -activity as tolerated. -Must encourage mobilization with PTOT and nursing -PT/OT/ELECTRICAL EQUIPMENT TESTER : Anticipated Discharge Disposition (PT): halfway facility, swing bed rehabilitation facility (12/09/22 2557)} Please page [phone] with questions/concerns for in-house NSGY patients IMAGING: Results for orders placed or performed during the hospital encounter of 11/30/22 CT Head & Cervical Spine wo Contrast (Generic) (Exam End: 11/30/2022 9:12 PM) Impression 1. No acute intracranial hemorrhage or calvarial fracture. 2. No acute fracture or traumatic malalignment of the cervical spine. 3. Multilevel cervical spondylosis, with chronic severe central canal narrowing at C6-C7, related to focal ligamentum flavum calcification. Thank you for letting us participate in the care of this patient. If you are a health care provider and have any questions regarding this report, please contact the number below. For patients who have questions please contact the health animal care giver that requested your imaging first. Electronically signed by: Elizabeth Fishman MD, [facility] ([phone]), at 11/30/2022 9:[address] Thoracic Spine wo Contrast (Generic) (Exam End: 12/01/2022 12:14 AM) Impression 1. Acute on chronic T12 compression fracture, with interval increase of associated height loss, now approximately 75%. Unchanged mild retropulsion of the posterior-superior fracture fragments with resulting at least mild central canal stenosis. 2. No acute fracture or traumatic malalignment of the lumbar spine. Thank you for letting us participate in the care of this patient. If you are a health care provider and have any questions regarding this report, please contact the number below. For patients who have questions please contact the health animal care giver that requested your imaging first. Electronically signed by: Elizabeth Fishman MD, [facility] ([phone]), at 12/01/2022 12:[address] Lumbar Spine wo Contrast (Generic) (Exam End: 12/01/2022 12:14 AM) Impression 1. Acute on chronic T12 compression fracture, with interval increase of associated height loss, now approximately 75%. Unchanged mild retropulsion of the posterior-superior fracture fragments with resulting at least mild central canal stenosis. 2. No acute fracture or traumatic malalignment of the lumbar spine. Thank you for letting us participate in the care of this patient. If you are a health care provider and have any questions regarding this report, please contact the number below. For patients who have questions please contact the health animal care giver that requested your imaging first. Electronically signed by: Elizabeth Fishman MD, [facility] ([phone]), at 12/01/2022 12:53 AM MRI Cervical Spine wo Contrast (Generic) (Exam End: 12/01/2022 8:21 AM) Impression 1. Severe canal stenosis at C6 and C6-7 due to bulky mineralization along the posterior thecal sac. There is associated cord pressure and and signal abnormality. 2. Moderate to severe canal stenosis at C4-5 and moderate canal stenosis at C3-C4. 3. Unhealed compression fracture at T12 with mild retropulsion contributing to mild to moderate canal narrowing, mass effect on ventral nerve roots and subtle left ventral cord deformation. 4. Left paracentral disc protrusion at L5-S1 which may irritate the left S1 nerve roots. 5. No evidence for recent/unhealed fracture in the cervical or lumbar spine. 6. Subtle edema and sacrum, incompletely evaluated. Cannot exclude unhealed sacral insufficiency fractures. Thank you for letting us participate in the care of this patient. If you are a health care provider and have any questions regarding this report, please contact the number below. For patients who have questions please contact the health animal care giver that requested your imaging first. Electronically signed by: Funmilayo Marrero [facility] ([phone]), at 12/01/2022 9:27 AM MRI Thoracic Spine wo Contrast (Generic) (Exam End: 12/01/2022 8:21 AM) Impression 1. Severe canal stenosis at C6 and C6-7 due to bulky mineralization along the posterior thecal sac. There is associated cord pressure and and signal abnormality. 2. Moderate to severe canal stenosis at C4-5 and moderate canal stenosis at C3-C4. 3. Unhealed compression fracture at T12 with mild retropulsion contributing to mild to moderate canal narrowing, mass effect on ventral nerve roots and subtle left ventral cord deformation. 4. Left paracentral disc protrusion at L5-S1 which may irritate the left S1 nerve roots. 5. No evidence for recent/unhealed fracture in the cervical or lumbar spine. 6. Subtle edema and sacrum, incompletely evaluated. Cannot exclude unhealed sacral insufficiency fractures. Thank you for letting us participate in the care of this patient. If you are a health care provider and have any questions regarding this report, please contact the number below. For patients who have questions please contact the health animal care giver that requested your imaging first. Electronically signed by: Funmilayo Marrero [facility] ([phone]), at 12/01/2022 9:27 AM MRI Lumbar Spine wo Contrast (Generic) (Exam End: 12/01/2022 8:21 AM) Impression 1. Severe canal stenosis at C6 and C6-7 due to bulky mineralization along the posterior thecal sac. There is associated cord pressure and and signal abnormality. 2. Moderate to severe canal stenosis at C4-5 and moderate canal stenosis at C3-C4. 3. Unhealed compression fracture at T12 with mild retropulsion contributing to mild to moderate canal narrowing, mass effect on ventral nerve roots and subtle left ventral cord deformation. 4. Left paracentral disc protrusion at L5-S1 which may irritate the left S1 nerve roots. 5. No evidence for recent/unhealed fracture in the cervical or lumbar spine. 6. Subtle edema and sacrum, incompletely evaluated. Cannot exclude unhealed sacral insufficiency fractures. Thank you for letting us participate in the care of this patient. If you are a health care provider and have any questions regarding this report, please contact the number below. For patients who have questions please contact the health animal care giver that requested your imaging first. Electronically signed by: Funmilayo Marrero [facility] ([phone]), at 12/01/2022 9:27 AM XR Chest PA & Lateral (Generic) (Exam End: 12/01/2022 11:48 AM) Impression No acute findings. Thank you for letting us participate in the care of this patient. If you are a health care provider and have any questions regarding this report, please contact the number below. For patients who have questions please contact the health animal care giver that requested your imaging first. Electronically signed by: SHYANN CANTU MD, [facility] ([phone]), at 12/01/2022 12:06 PM XR Cervical Spine 2 or 3 Views (Exam End: 12/03/2022 10:10 AM) Impression Incomplete evaluation of the fusion hardware due to patient body habitus. Consider repeat exam or CT. Thank you for letting us participate in the care of this patient. If you are a health care provider and have any questions regarding this report, please contact the number below. For patients who have questions please contact the health animal care giver that requested your imaging first. Electronically signed by: SHYANN CANTU MD, [facility] ([phone]), at 12/03/2022 4:43 PM MEDICATIONS: Scheduled Meds: Continuous Infusions: PRN Meds: Vitals: Temp: [35.9 ??C (96.6 ??F)-37.2 ??C (99 ??F)] Heart Rate: -- Resp: [16-20] BP: (114-153)/(73-89) SpO2: [95 %-99 %] Heart Rate from SpO2: [81 bpm-104 bpm] BMI: Weight: 107.1 kg (236 lb 1.8 oz) (12/05/22 0600) BMI (Calculated): 37.69 BMI Classification: Obese I/O: I/O last 3 completed shifts: In: 150 [P.O.:150] Out: 1000 [Urine:1000] LABS: No results for input(s): WBC, HGB, PLATELET in the last 72 hours. No results for input(s): NA, K, CL, CO2, BUN, CREATININE in the last 72 hours. No results for input(s): PT, INR in the last 72 hours. Active Hospital Problems Diagnosis Cervical myelopathy Resolved Hospital Problems No resolved problems to display. Active Non-Hospital Problems Diagnosis Serous adenofibroma of left ovary Moderate opioid use disorder Thoracic compression fracture, sequela Herniation of lumbar intervertebral disc with radiculopathy Adnexal mass Primary osteoarthritis of right knee Carpal tunnel syndrome, bilateral Trigger thumb of left hand Knee pain, bilateral Osteoarthritis of patellofemoral joint Cervical spondylosis without myelopathy Cervical disc displacement Cervical radiculitis Occipital neuralgia Neck pain on left side Breast hypertrophy JOANNA Blackmon 12/11/2022 * Caitlin Humphrey MSW - 12/10/2022 10:44 AM EDT NET WPF DEVELOPER met with patient and spouse, Prieto Carranza and began the [place] long-term care Medicaid application ~[employer]. Spouse to bring in the last of the needed financial verification documentation this evening and once received, NET WPF DEVELOPER will give completed application to the Office of Care Management ~[facility] Medicaid Chef Under to upload to the Department of [place] Health Access (DV[place]). Patient also signed an authorized b2b sales representative form naming her spouse as her authorized rep. NET WPF DEVELOPER to follow up with patient and spouse and complete long-term care Medicaid application. NET WPF DEVELOPER did contact the Department of Aging & Independent Living (TONI) state nurse, Sylvia Lerma RN, [facility]: [phone], who is the clinical nurse that will qualify this patient physically for this program, to let her know of patient's pending application. NET WPF DEVELOPER also informed her of patient'schoice of a [place] agency[place] [facility] [facility] [place]. * Louie Rosario MD - 12/10/2022 9:31 AM EDT NEUROSURGERY PROGRESS NOTE PLEASE PAGE [phone] WITH QUESTIONS ID: Katheryn Carranza is a 62 y.o. female with CSM who presented with worsening weakness and urinary incontinence since a fall 4 days prior to presentation. HD# 10 POD # 8 Days Post-Op 12/02/22 Dr. Mirandat: C4-T2 PSIF, C5-7 laminectomies INTERVAL HX/ROS: -MICHAEL -Neuro stable EXAM: GEN: Overweight elderly woman, NAD NEURO: Speech fluent and appropriate. Face symmetric. Edentulous. MOTOR: RUE:5/5 LUE:5/5 RLE: 5/5 LLE: 4-/5 HF, 5KE, 4+ DF, 4+ PF SILT x4 BUE paresthesias in bilateral C7/C8 distribution improved Dressing c/d/i with parminder A/P: Katheryn Carranza is a 62 y.o. 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 Now s/p C4-T2 PSIF, C5-7 laminectomies. Recovering well. Will continue with mobilization with PTOT and pain control. Medically ready for discharge. Awaiting Rehab. -Neuro checks: q4h -Pain control -goal SBP < 160 -Diet: Regular diet. -RBOs -DVT prophylaxis: SCDs, SQH -activity as tolerated. -Must encourage mobilization with PTOT and nursing -Macrobid x 5d for UTI started 12/04 -PT/OT/ELECTRICAL EQUIPMENT TESTER : Anticipated Discharge Disposition (PT): halfway facility, swing bed rehabilitation facility (12/09/22 1417)} Please page [phone] with questions/concerns for in-house NSGY patients IMAGING: Results for orders placed or performed during the hospital encounter of 11/30/22 CT Head & Cervical Spine wo Contrast (Generic) (Exam End: 11/30/2022 9:12 PM) Impression 1. No acute intracranial hemorrhage or calvarial fracture. 2. No acute fracture or traumatic malalignment of the cervical spine. 3. Multilevel cervical spondylosis, with chronic severe central canal narrowing at C6-C7, related to focal ligamentum flavum calcification. Thank you for letting us participate in the care of this patient. If you are a health care provider and have any questions regarding this report, please contact the number below. For patients who have questions please contact the health animal care giver that requested your imaging first. Electronically signed by: Elizabeth Fishman MD, [facility] ([phone]), at 11/30/2022 9:[address] Thoracic Spine wo Contrast (Generic) (Exam End: 12/01/2022 12:14 AM) Impression 1. Acute on chronic T12 compression fracture, with interval increase of associated height loss, now approximately 75%. Unchanged mild retropulsion of the posterior-superior fracture fragments with resulting at least mild central canal stenosis. 2. No acute fracture or traumatic malalignment of the lumbar spine. Thank you for letting us participate in the care of this patient. If you are a health care provider and have any questions regarding this report, please contact the number below. For patients who have questions please contact the health animal care giver that requested your imaging first. Electronically signed by: Elizabeth Fishman MD, [facility] ([phone]), at 12/01/2022 12:[address] Lumbar Spine wo Contrast (Generic) (Exam End: 12/01/2022 12:14 AM) Impression 1. Acute on chronic T12 compression fracture, with interval increase of associated height loss, now approximately 75%. Unchanged mild retropulsion of the posterior-superior fracture fragments with resulting at least mild central canal stenosis. 2. No acute fracture or traumatic malalignment of the lumbar spine. Thank you for letting us participate in the care of this patient. If you are a health care provider and have any questions regarding this report, please contact the number below. For patients who have questions please contact the health animal care giver that requested your imaging first. Electronically signed by: Elizabeth Fishman MD, [facility] ([phone]), at 12/01/2022 12:53 AM MRI Cervical Spine wo Contrast (Generic) (Exam End: 12/01/2022 8:21 AM) Impression 1. Severe canal stenosis at C6 and C6-7 due to bulky mineralization along the posterior thecal sac. There is associated cord pressure and and signal abnormality. 2. Moderate to severe canal stenosis at C4-5 and moderate canal stenosis at C3-C4. 3. Unhealed compression fracture at T12 with mild retropulsion contributing to mild to moderate canal narrowing, mass effect on ventral nerve roots and subtle left ventral cord deformation. 4. Left paracentral disc protrusion at L5-S1 which may irritate the left S1 nerve roots. 5. No evidence for recent/unhealed fracture in the cervical or lumbar spine. 6. Subtle edema and sacrum, incompletely evaluated. Cannot exclude unhealed sacral insufficiency fractures. Thank you for letting us participate in the care of this patient. If you are a health care provider and have any questions regarding this report, please contact the number below. For patients who have questions please contact the health animal care giver that requested your imaging first. Electronically signed by: Funmilayo Marrero [facility] ([phone]), at 12/01/2022 9:27 AM MRI Thoracic Spine wo Contrast (Generic) (Exam End: 12/01/2022 8:21 AM) Impression 1. Severe canal stenosis at C6 and C6-7 due to bulky mineralization along the posterior thecal sac. There is associated cord pressure and and signal abnormality. 2. Moderate to severe canal stenosis at C4-5 and moderate canal stenosis at C3-C4. 3. Unhealed compression fracture at T12 with mild retropulsion contributing to mild to moderate canal narrowing, mass effect on ventral nerve roots and subtle left ventral cord deformation. 4. Left paracentral disc protrusion at L5-S1 which may irritate the left S1 nerve roots. 5. No evidence for recent/unhealed fracture in the cervical or lumbar spine. 6. Subtle edema and sacrum, incompletely evaluated. Cannot exclude unhealed sacral insufficiency fractures. Thank you for letting us participate in the care of this patient. If you are a health care provider and have any questions regarding this report, please contact the number below. For patients who have questions please contact the health animal care giver that requested your imaging first. Electronically signed by: Funmilayo Marrero [facility] ([phone]), at 12/01/2022 9:27 AM MRI Lumbar Spine wo Contrast (Generic) (Exam End: 12/01/2022 8:21 AM) Impression 1. Severe canal stenosis at C6 and C6-7 due to bulky mineralization along the posterior thecal sac. There is associated cord pressure and and signal abnormality. 2. Moderate to severe canal stenosis at C4-5 and moderate canal stenosis at C3-C4. 3. Unhealed compression fracture at T12 with mild retropulsion contributing to mild to moderate canal narrowing, mass effect on ventral nerve roots and subtle left ventral cord deformation. 4. Left paracentral disc protrusion at L5-S1 which may irritate the left S1 nerve roots. 5. No evidence for recent/unhealed fracture in the cervical or lumbar spine. 6. Subtle edema and sacrum, incompletely evaluated. Cannot exclude unhealed sacral insufficiency fractures. Thank you for letting us participate in the care of this patient. If you are a health care provider and have any questions regarding this report, please contact the number below. For patients who have questions please contact the health animal care giver that requested your imaging first. Electronically signed by: Funmilayo Marrero [facility] ([phone]), at 12/01/2022 9:27 AM XR Chest PA & Lateral (Generic) (Exam End: 12/01/2022 11:48 AM) Impression No acute findings. Thank you for letting us participate in the care of this patient. If you are a health care provider and have any questions regarding this report, please contact the number below. For patients who have questions please contact the health animal care giver that requested your imaging first. Electronically signed by: SHYANN CANTU MD, [facility] ([phone]), at 12/01/2022 12:06 PM XR Cervical Spine 2 or 3 Views (Exam End: 12/03/2022 10:10 AM) Impression Incomplete evaluation of the fusion hardware due to patient body habitus. Consider repeat exam or CT. Thank you for letting us participate in the care of this patient. If you are a health care provider and have any questions regarding this report, please contact the number below. For patients who have questions please contact the health animal care giver that requested your imaging first. Electronically signed by: SHYANN CANTU MD, [facility] ([phone]), at 12/03/2022 4:43 PM MEDICATIONS: Scheduled Meds: Continuous Infusions: PRN Meds: Vitals: Temp: [37 ??C (98.6 ??F)-37.9 ??C (100.2 ??F)] Heart Rate: -- Resp: [16-19] BP: (108-131)/(73-84) SpO2: [91 %-97 %] Heart Rate from SpO2: [84 bpm-107 bpm] BMI: Weight: 107.1 kg (236 lb 1.8 oz) (12/05/22 0600) BMI (Calculated): 37.69 BMI Classification: Obese I/O: I/O last 3 completed shifts: In: 600 [P.O.:600] Out: 4100 [Urine:4100] LABS: No results for input(s): WBC, HGB, PLATELET in the last 72 hours. No results for input(s): NA, K, CL, CO2, BUN, CREATININE in the last 72 hours. No results for input(s): PT, INR in the last 72 hours. Active Hospital Problems Diagnosis Cervical myelopathy Resolved Hospital Problems No resolved problems to display. Active Non-Hospital Problems Diagnosis Serous adenofibroma of left ovary Moderate opioid use disorder Thoracic compression fracture, sequela Herniation of lumbar intervertebral disc with radiculopathy Adnexal mass Primary osteoarthritis of right knee Carpal tunnel syndrome, bilateral Trigger thumb of left hand Knee pain, bilateral Osteoarthritis of patellofemoral joint Cervical spondylosis without myelopathy Cervical disc displacement Cervical radiculitis Occipital neuralgia Neck pain on left side Breast hypertrophy Louie Rosario MD 12/10/2022 I have seen and examined the patient, providing wood components as outlined below. I have reviewed the resident???s above note; my evaluation of the patient is below: Patient reporting pain is better controlled and is ready to re-attempt work with PT today and goingforward. Rest of care as outlined Associated attestation - Tien Zurita MD - 12/10/2022 12:29 PM EDT I have seen and examined the patient, providing wood components as outlined below. I have reviewed the resident???s above note; my evaluation of the patient is below: In bed, report she went OOB in the morning and then requested to go back into bed for lunch. Neuro exam stable. Incision C/D/I with parminder (dressing removed) Pending dispo to SNF. Please encourage patient to maximize time OOB at least 4-6 hours per day. * Lelia Carballo, NALLELY - 12/10/2022 9:05 AM EDT Occupational Therapy Treatment Note Treatment Number OT: 3 Patient profile: Katheryn Carranza is a 62 y.o. female admitted on 11/30/2022 for worsening weakness after a fall at home. Known severe cervical stenosis. 12/02/22: 1. C4-5, C5-6, and C6-7 laminectomies and facetecomies with excision of ossified ligamentum flavum at C6-7 2. Bilateral postero-lateral arthrodesis, C4-5, C5-6, C6-7, C7-T1, T1-2 3. Bilateral posterior instrumentation, [employer], with stereotactic navigation, C4-T2 4. Local autograft and morselized allograft Social History: Patient lives with her . 2 daughters, both of whom live near by. Home Setup: 2 level, 3 REGINO. Pt reports she has been staying on the first floor for some time, unable to negotiate the stairs. Tub/shower. Sleeps in recliner chair. DME: wheelchair, shower seat, 4WW Baseline ADL/Mobility: Unclear, Daughter assists with showering. Per chart, pt with frequent falls at home walking and falling out of wheelchair. Precautions/Special Considerations: Pure wick, SBP <160, minimize bending/lifting/twisting, fall Interval History: NAEON S: I can't believe this pain. O: Patient seen for skilled OT treatment, and demonstrated the following: Activities of Daily Living: Bathing: Pt sat at sink required max set up and cues for thoroughness, dependent to wash lower legs Grooming: rinsed mouth with oral rinse spit into basin as pt could not reach sink Dressing: Mod A to swap out matt carlin Toileting: Pt had been incontinent in bed (purewick failed) reported she was aware though failed tocommunicate to staff pharmacist hospital, education provided on importance of calling for assist in the future to insure skin protection. Transferred to [facility] with cga and fww, pt hunched over and crying out in pain, pt able to manage hygiene while seated Self Feeding: Pt able to self feed Functional Mobility: Supine to sit: Max cues/education for log roll, max A pt with difficulty following sequencing directions assist to bring BLE OOB and UB off bed Sit to stand: min A with wide fww Ambulation: Pt stand step to bsc then mobilized to sink then back to bed ~10 ft total, encouraged pt to utilize recliner though pt reported recliner uncomfortable and declined Stand to sit: cga with fww Supine>sit: min A required assist to bring BLE into bed Balance: Sitting balance: supervision Cognition: Behavior / Mood: alert, cooperative, and labile Alert and oriented to: person, place, time of day, and situation Follows commands: 1 step, 100% of the time, requires increased time, and requires repetition Attention: distractible Safety awareness: decreased insight into deficits Endurance: Decreased activity tolerance Vitals: VSS per monitor Pain: Displayed pain behaviors Did not rate, co pain in cervical spine area Education: Pt/family/caregiver education ongoing regarding: Role of occupational therapy/rehabilitation, Transfers, Assistive device/technique, ADL, Precautions/Protocol, Functional Mobility, and Discharge planning. Staff Communication: Patient status, treatment, and mobility recommendations discussed with nursing/other staff. ASSESSMENT: Pt seen for continuation of OT POC. Pt session limited by pain, pt emotional and labilethroughout, participated in ADLs at sink mobilized with fww, cga/min A and increased time. Based oncurrent performance pt will need SNF prior to returning home. Pt will benefit from ongoing therapeutic interventions to achieve pt's and therapy goals Anticipated Discharge Disposition (OT): halfway facility Equipment Recommendations: Equipment Needs Upon Discharge (OT): to be determined Daily schedule / Staff Recommendations: Encourage OOB activity and participation in all self care tasks, transfer to recliner or bsc as appropriate/tolerated. Goals: To be achieved by 12/18/22. Pt will sit EOB for 10 minutes with set up for ADLs Pt will be supervision for LE ADLS with AE as needed Pt will be supervision with walker functional mobility to the bathroom and back Pt will be independent with toilet hygiene Pt will stand sink level for light grooming tasks with supervision Pt will be supervision for all functional transfers from a variety of surfaces Therapy Frequency (OT): 2-4 times/wk Total Minutes, Occupational Therapy: 35 (2x schm) Pager: [phone] NALLELY Arriola Occupational Therapy Rehabilitation Department * Darnell Kenyon Mishel, OCULAR PATHOLOGIST - 12/09/2022 4:53 PM EDT Physical Therapy Note Treatment Number PT: 3 Patient profile: Katheryn Carranza is a 62 y.o. female with CSM who presented with worsening weakness and urinary incontinence since a fall 4 days prior to presentation. OR on 12/02/22 for C4-T2 PSIF, C5-7 laminectomies Interval Events: Per Neuro Surg note 12/09/22: -MICHAEL -Neuro stable Social History: Home set-up: Pt lives with her Prieto in a multi-level home. All of her needs have been met on the first level for the last few months due to inability to negotiate the FOS. She sleeps in a recliner chair. Bathroom Set-up: tub shower with shower chair Stairs: 3STE without rail Baseline Mobility: Pt ambulates with a 4WW at baseline, and uses a w/c for longer distances. She was limited in her ability to negotiate her home environment, and daughter has been assisting her withbathing. 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 Mobility and Positioning Recommendations: Mobilize pt with 1-2A using a FWW Please encourage up to chair for meal times as able. Subjective: I really wasn't able to get up and move before I had my surgery. That's why I'm so weak. Objective: Patient seen for physical therapy and demonstrated the following: Pain: C/o pain in the R scapular region Vital Signs: VSS Bed Mobility: Supine to Sit: min assist, with HOB 30, to R side Sit to Supine: n/t Sitting EOB, min assist to scoot closer to EOB Sitting with feet on floor, steadily, with standby supervision Transfers: Sit<>Stand: mod assist, FWW, cues for BUE use, included commode transfer Gait: Distance: 20' + 30', seated rest x2 Device used: FWW Level of assist: min assist Gait Mechanics: Step to pattern with increased exertion to swing the LLE, decr step ht Bilat, decr heel strike Balance: Sitting Static: good Sitting Dynamic: fair Standing Static: fair Standing Dynamic / Gait: fair Education: role of PT, precautions, importance of mobilizing OOB and attempting to walk more with nursing staff and therapy progression Assessment: Katheryn Carranza was seen today for physical therapy treatment session for continuation of POC. Pt presented to physical therapy sleepy, but easily roused and willing to participate. Today's session focusing on progressive mobility training. Pt continues to demonstrate decreased strength,particularly in the LLE. Pt able to mobilize a greater distance, though with increasing pain and required assistance to maneuver the FWW. Pt continues to be limited by pain, hx of falls, post op spine precautions, deconditioning, all impacting her functional mobility, ambulation, safety, activity tolerance and ability to manage her own needs. Pt will benefit from ongoing therapeutic interventionsto achieve therapy goals. She is still below her functional baseline and will benefit from a rehabilitative setting prior to going home. Discharge Recommendations: Based on the current findings, Anticipated Discharge Disposition (PT): halfway facility, swing bed rehabilitation facility when medically ready for hospital discharge. Consult Recommendations: No other consults recommended at this time. Equipment needs: Pt. to demonstrate knowledge of safety limitations and precautions and will appropriately request assistance for functional activities and to mobilize. Pt. to perform bed mobility with supervision. Pt. to perform sit<>stand transfers with supervision using a front wheeled walker. Pt. to ambulate 100 feet with supervision using a front wheeled walker. Pt. to ambulate up/down 3 step/stairs using one hand hold and straight cane with min A. Family or caregiver to demonstrate understanding of therapeutic interventions to support the care of the patient. Plan: Therapy Frequency (PT): 2-4 times/wk for therapy interventions as outlined in initial evaluation. Patient agrees with plan as stated. Total Minutes, Physical Therapy: 57 ([phone]) Billing Code: [email or web address] Kenyon Patrick PTA Pager: [phone] Physical Therapy Inpatient Rehabilitation Department * Louie Rosario MD - 12/09/2022 6:55 AM EDT NEUROSURGERY PROGRESS NOTE PLEASE PAGE [phone] WITH QUESTIONS ID: Katheryn Carranza is a 62 y.o. female with CSM who presented with worsening weakness and urinary incontinence since a fall 4 days prior to presentation. HD# 9 POD # 7 Days Post-Op 12/02/22 Dr. Mirandat: C4-T2 PSIF, C5-7 laminectomies INTERVAL HX/ROS: -MICHAEL -Neuro stable EXAM: GEN: Overweight elderly woman, NAD NEURO: Speech fluent and appropriate. Face symmetric. Edentulous. MOTOR: RUE:5/5 LUE:5/5 RLE: 5/5 LLE: 4-/5 HF, 5KE, 4+ DF, 4+ PF SILT x4 BUE paresthesias in bilateral C7/C8 distribution improved Dressing c/d/i with parminder A/P: Katheryn Carranza is a 62 y.o. 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 Now s/p C4-T2 PSIF, C5-7 laminectomies. Recovering well. Will continue with mobilization with PTOT and pain control. Medically ready for discharge. Awaiting Rehab. -Neuro checks: q4h -Pain control -goal SBP < 160 -Diet: Regular diet. -RBOs -DVT prophylaxis: SCDs, SQH -activity as tolerated. -Must encourage mobilization with PTOT and nursing -Macrobid x 5d for UTI started 12/04 -PT/OT/ELECTRICAL EQUIPMENT TESTER : Anticipated Discharge Disposition (PT): halfway facility, swing bed rehabilitation facility, acute rehabilitation facility (12/06/22 1035)} Please page [phone] with questions/concerns for in-house NSGY patients IMAGING: Results for orders placed or performed during the hospital encounter of 11/30/22 CT Head & Cervical Spine wo Contrast (Generic) (Exam End: 11/30/2022 9:12 PM) Impression 1. No acute intracranial hemorrhage or calvarial fracture. 2. No acute fracture or traumatic malalignment of the cervical spine. 3. Multilevel cervical spondylosis, with chronic severe central canal narrowing at C6-C7, related to focal ligamentum flavum calcification. Thank you for letting us participate in the care of this patient. If you are a health care provider and have any questions regarding this report, please contact the number below. For patients who have questions please contact the health animal care giver that requested your imaging first. Electronically signed by: Elizabeth Fishman MD, [facility] ([phone]), at 11/30/2022 9:[address] Thoracic Spine wo Contrast (Generic) (Exam End: 12/01/2022 12:14 AM) Impression 1. Acute on chronic T12 compression fracture, with interval increase of associated height loss, now approximately 75%. Unchanged mild retropulsion of the posterior-superior fracture fragments with resulting at least mild central canal stenosis. 2. No acute fracture or traumatic malalignment of the lumbar spine. Thank you for letting us participate in the care of this patient. If you are a health care provider and have any questions regarding this report, please contact the number below. For patients who have questions please contact the health animal care giver that requested your imaging first. Electronically signed by: Elizabeth Fishman MD, [facility] ([phone]), at 12/01/2022 12:[address] Lumbar Spine wo Contrast (Generic) (Exam End: 12/01/2022 12:14 AM) Impression 1. Acute on chronic T12 compression fracture, with interval increase of associated height loss, now approximately 75%. Unchanged mild retropulsion of the posterior-superior fracture fragments with resulting at least mild central canal stenosis. 2. No acute fracture or traumatic malalignment of the lumbar spine. Thank you for letting us participate in the care of this patient. If you are a health care provider and have any questions regarding this report, please contact the number below. For patients who have questions please contact the health animal care giver that requested your imaging first. Electronically signed by: Elizabeth Fishman MD, [facility] ([phone]), at 12/01/2022 12:53 AM MRI Cervical Spine wo Contrast (Generic) (Exam End: 12/01/2022 8:21 AM) Impression 1. Severe canal stenosis at C6 and C6-7 due to bulky mineralization along the posterior thecal sac. There is associated cord pressure and and signal abnormality. 2. Moderate to severe canal stenosis at C4-5 and moderate canal stenosis at C3-C4. 3. Unhealed compression fracture at T12 with mild retropulsion contributing to mild to moderate canal narrowing, mass effect on ventral nerve roots and subtle left ventral cord deformation. 4. Left paracentral disc protrusion at L5-S1 which may irritate the left S1 nerve roots. 5. No evidence for recent/unhealed fracture in the cervical or lumbar spine. 6. Subtle edema and sacrum, incompletely evaluated. Cannot exclude unhealed sacral insufficiency fractures. Thank you for letting us participate in the care of this patient. If you are a health care provider and have any questions regarding this report, please contact the number below. For patients who have questions please contact the health animal care giver that requested your imaging first. Electronically signed by: Funmilayo Marrero [facility] ([phone]), at 12/01/2022 9:27 AM MRI Thoracic Spine wo Contrast (Generic) (Exam End: 12/01/2022 8:21 AM) Impression 1. Severe canal stenosis at C6 and C6-7 due to bulky mineralization along the posterior thecal sac. There is associated cord pressure and and signal abnormality. 2. Moderate to severe canal stenosis at C4-5 and moderate canal stenosis at C3-C4. 3. Unhealed compression fracture at T12 with mild retropulsion contributing to mild to moderate canal narrowing, mass effect on ventral nerve roots and subtle left ventral cord deformation. 4. Left paracentral disc protrusion at L5-S1 which may irritate the left S1 nerve roots. 5. No evidence for recent/unhealed fracture in the cervical or lumbar spine. 6. Subtle edema and sacrum, incompletely evaluated. Cannot exclude unhealed sacral insufficiency fractures. Thank you for letting us participate in the care of this patient. If you are a health care provider and have any questions regarding this report, please contact the number below. For patients who have questions please contact the health animal care giver that requested your imaging first. Electronically signed by: Funmilayo Marrero [facility] ([phone]), at 12/01/2022 9:27 AM MRI Lumbar Spine wo Contrast (Generic) (Exam End: 12/01/2022 8:21 AM) Impression 1. Severe canal stenosis at C6 and C6-7 due to bulky mineralization along the posterior thecal sac. There is associated cord pressure and and signal abnormality. 2. Moderate to severe canal stenosis at C4-5 and moderate canal stenosis at C3-C4. 3. Unhealed compression fracture at T12 with mild retropulsion contributing to mild to moderate canal narrowing, mass effect on ventral nerve roots and subtle left ventral cord deformation. 4. Left paracentral disc protrusion at L5-S1 which may irritate the left S1 nerve roots. 5. No evidence for recent/unhealed fracture in the cervical or lumbar spine. 6. Subtle edema and sacrum, incompletely evaluated. Cannot exclude unhealed sacral insufficiency fractures. Thank you for letting us participate in the care of this patient. If you are a health care provider and have any questions regarding this report, please contact the number below. For patients who have questions please contact the health animal care giver that requested your imaging first. Electronically signed by: Funmilayo Marrero [facility] ([phone]), at 12/01/2022 9:27 AM XR Chest PA & Lateral (Generic) (Exam End: 12/01/2022 11:48 AM) Impression No acute findings. Thank you for letting us participate in the care of this patient. If you are a health care provider and have any questions regarding this report, please contact the number below. For patients who have questions please contact the health animal care giver that requested your imaging first. Electronically signed by: SHYANN CANTU MD, [facility] ([phone]), at 12/01/2022 12:06 PM XR Cervical Spine 2 or 3 Views (Exam End: 12/03/2022 10:10 AM) Impression Incomplete evaluation of the fusion hardware due to patient body habitus. Consider repeat exam or CT. Thank you for letting us participate in the care of this patient. If you are a health care provider and have any questions regarding this report, please contact the number below. For patients who have questions please contact the health animal care giver that requested your imaging first. Electronically signed by: SHYANN CANTU MD, [facility] ([phone]), at 12/03/2022 4:43 PM MEDICATIONS: Scheduled Meds: Continuous Infusions: PRN Meds: Vitals: Temp: [36.1 ??C (97 ??F)-37.5 ??C (99.5 ??F)] Heart Rate: -- Resp: [14-18] BP: (103-143)/(72-89) SpO2: [92 %-96 %] Heart Rate from SpO2: [83 bpm-98 bpm] BMI: Weight: 107.1 kg (236 lb 1.8 oz) (12/05/22 0600) BMI (Calculated): 37.69 BMI Classification: Obese I/O: I/O last 3 completed shifts: In: 950 [P.O.:950] Out: 4650 [Urine:4650] LABS: No results for input(s): WBC, HGB, PLATELET in the last 72 hours. No results for input(s): NA, K, CL, CO2, BUN, CREATININE in the last 72 hours. No results for input(s): PT, INR in the last 72 hours. Active Hospital Problems Diagnosis Cervical myelopathy Resolved Hospital Problems No resolved problems to display. Active Non-Hospital Problems Diagnosis Serous adenofibroma of left ovary Moderate opioid use disorder Thoracic compression fracture, sequela Herniation of lumbar intervertebral disc with radiculopathy Adnexal mass Primary osteoarthritis of right knee Carpal tunnel syndrome, bilateral Trigger thumb of left hand Knee pain, bilateral Osteoarthritis of patellofemoral joint Cervical spondylosis without myelopathy Cervical disc displacement Cervical radiculitis Occipital neuralgia Neck pain on left side Breast hypertrophy Louie Rosario MD 12/09/2022 I have seen and examined the patient, providing wood components as outlined below. I have reviewed the resident???s above note; my evaluation of the patient is below: Patient reporting pain is better controlled and is ready to re-attempt work with PT today and goingforward. Rest of care as outlined * Myla Goldman - 12/08/2022 5:28 PM EDT Nutrition Services Note - Low Nutrition Acuity Katheryn Carranza is a 62 y.o. female Reason for intervention: hospital day 9 Nutrition Plan: Continue current diet. Encourage good PO intake. Monitor weight. Patient screened for hospital length of stay. Elementary Assistant Teacher attempted to visit patient but was unable to connect, chart reviewed. Per documentation in flow sheets, patient has had variable PO intakes over the past week, however intakes recorded over the past 3 days are recorded at 50-75-100%. Per review of nutrition software system, patient has ordered on average ~2987 kcal/day over the past 3 days. Perweight graph, no weight loss identified. Nutrition services to continue to monitor and follow up. Active Orders Diet Regular diet Frequency: Effective Now Number of Occurrences: Until Specified Admit Weight: 104.33 kg Estimated body mass index is 38.69 kg/m?? as calculated from the following: Height as of this encounter: 166.4 cm (5' 5.5). Weight as of this encounter: 107.1 kg (236 lb 1.8 oz). Wt Readings from Last 5 Encounters: 12/05/22 107.1 kg (236 lb 1.8 oz) 11/03/22 104.3 kg (230 lb) 08/16/22 103.4 kg (227 lb 14.4 oz) 08/08/22 100 kg (220 lb 7.4 oz) 04/27/16 82.6 kg (182 lb) Weight loss: none - per weight graph Appetite: variable - intakes recorded over the past 3 days are good (50%-75%) to excellent (75%-100%) Food allergies: none - per chart Chewing/Swallowing difficulty: none - per chart Nausea/Vomiting: no nausea and no vomiting - per chart Last Bowel Movement: 12/07/22 Nutrition services to follow weekly through hospital course unless consulted in the interim. Myla Goldman [phone] * Ashley Kwon RN - 12/08/2022 2:13 PM EDT Based on discussions with the multi-disciplinary healthcare team, the patient would benefit from SNF level of care at discharge. I have met with the patient to: discuss discharge planning needs. provide the [facility], Office of Care Management letter from the [employer] pertaining to rehab referrals. provide a letter describing our affiliations within the [facility] and educate about their right to choose where referrals are sent. provide the [facility] Star Quality Rating handout. review the different levels of rehab including SNF, swing, and acute. provide a list of facilities within their preferred geographic area. request that they provide at least three choices for referral. They have requested referrals to: [facility] [address] [address] [facility] ([facility]) [address] [place] [address] [facility] ([facility]) [address] [place] [address] LYUDMILA: 12/08/22 Does patient have COVID vaccine card: Yes; Copy obtained: No Note routed to a Chef Under who will communicate referrals to facilities and provide any required information. Ashley Kwon MSN-Ed, RN ACM loss claim clerk Office of Care Management Pager #[phone] * Lelia Carballo OTA - 12/08/2022 10:05 AM EDT Occupational Therapy Treatment Note Treatment Number OT: 2 Patient profile: Katheryn Carranza is a 62 y.o. female admitted on 11/30/2022 for worsening weakness after a fall at home. Known severe cervical stenosis. 12/02/22: 1. C4-5, C5-6, and C6-7 laminectomies and facetecomies with excision of ossified ligamentum flavum at C6-7 2. Bilateral postero-lateral arthrodesis, C4-5, C5-6, C6-7, C7-T1, T1-2 3. Bilateral posterior instrumentation, Medtronic Infinity, with stereotactic navigation, C4-T2 4. Local autograft and morselized allograft Social History: Patient lives with her . 2 daughters, both of whom live near by. Home Setup: 2 level, 3 REGINO. Pt reports she has been staying on the first floor for some time, unable to negotiate the stairs. Tub/shower. Sleeps in recliner chair. DME: wheelchair, shower seat, 4WW Baseline ADL/Mobility: Unclear, Daughter assists with showering. Per chart, pt with frequent falls at home walking and falling out of wheelchair. Precautions/Special Considerations: Pure wick, SBP <160, minimize bending/lifting/twisting, fall Interval History: ERICA S: How much do you want me to do? O: Patient seen for skilled OT treatment, and demonstrated the following: Activities of Daily Living: Bathing: Sat EOB, provided with wipes to wash, required encouragement and cues for thoroughness, ptable to wash UB, therapist assist to wash LB and back Grooming: Pt declined oral care Dressing: Mod A to swap out matt gown Toileting: Pt had been incontinent in bed (purewick failed) reported she was aware though failed tocommunicate to staff pharmacist hospital, education provided on importance of calling for assist in the future to insure skin protection Self Feeding: Pt able to self feed Functional Mobility: Supine to sit: Max cues/education for log roll, max A pt with difficulty following sequencing directions assist to bring BLE OOB and UB off bed Sit to stand: min A with wide fww Stood at EOB to have soiled linen removed then stood again to stand step Ambulation: Pt stand step bed>recliner cga with fww Stand to sit: cga with fww Pt left in recliner with all needs within reach, pt asked that ice be placed on posterior shoulders Balance: Sitting balance: supervision Cognition: Behavior / Mood: alert, cooperative, and labile Alert and oriented to: person, place, time of day, and situation Follows commands: 1 step, 100% of the time, requires increased time, and requires repetition Attention: distractible Safety awareness: decreased insight into deficits Endurance: Decreased activity tolerance Vitals: VSS per monitor Pain: Displayed pain behaviors Did not rate, co pain in cervical spine area Education: Pt/family/caregiver education ongoing regarding: Role of occupational therapy/rehabilitation, Transfers, Assistive device/technique, ADL, Precautions/Protocol, Functional Mobility, and Discharge planning. Staff Communication: Patient status, treatment, and mobility recommendations discussed with nursing/other staff. ASSESSMENT: Pt seen for continuation of OT POC. Pt with decreased activity tolerance, co pain had been premedicated for session, tolerated sitting EOB to wash up then mobilized to recliner. Based on current performance pt will need SNF prior to returning home. Pt will benefit from ongoing therapeutic interventions to achieve pt's and therapy goals Anticipated Discharge Disposition (OT): halfway facility Equipment Recommendations: Equipment Needs Upon Discharge (OT): to be determined Daily schedule / Staff Recommendations: Encourage OOB activity and participation in all self care tasks, transfer to recliner or bsc as appropriate/tolerated. Goals: To be achieved by 12/18/22. Pt will sit EOB for 10 minutes with set up for ADLs Pt will be supervision for LE ADLS with AE as needed Pt will be supervision with walker functional mobility to the bathroom and back Pt will be independent with toilet hygiene Pt will stand sink level for light grooming tasks with supervision Pt will be supervision for all functional transfers from a variety of surfaces Therapy Frequency (OT): 2-4 times/wk Total Minutes, Occupational Therapy: 25 (2x schm) Pager: [phone] NALLELY Arriola Occupational Therapy Rehabilitation Department * Louie Rosario MD - 12/08/2022 6:47 AM EDT NEUROSURGERY PROGRESS NOTE PLEASE PAGE [phone] WITH QUESTIONS ID: Katheryn Carranza is a 62 y.o. female with CSM who presented with worsening weakness and urinary incontinence since a fall 4 days prior to presentation. HD# 8 POD # 6 Days Post-Op 12/02/22 Dr. Mirandat: C4-T2 PSIF, C5-7 laminectomies INTERVAL HX/ROS: -MICHAEL -Neuro stable EXAM: GEN: Overweight elderly woman, NAD NEURO: Speech fluent and appropriate. Face symmetric. Edentulous. MOTOR: RUE:5/5 LUE:5/5 RLE: 5/5 LLE: 4-/5 HF, 5KE, 4+ DF, 4+ PF SILT x4 BUE paresthesias in bilateral C7/C8 distribution improved Dressing c/d/i with parminder A/P: Katheryn Carranza is a 62 y.o. 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 Now s/p C4-T2 PSIF, C5-7 laminectomies. Recovering well. Will continue with mobilization with PTOT and pain control. Medically ready for discharge. Awaiting Rehab. -Neuro checks: q4h -Pain control -goal SBP < 160 -Diet: Regular diet. -RBOs -DVT prophylaxis: SCDs, SQH -activity as tolerated. -Must encourage mobilization with PTOT and nursing -Macrobid x 5d for UTI started 12/04 -PT/OT/ELECTRICAL EQUIPMENT TESTER : Anticipated Discharge Disposition (PT): halfway facility, swing bed rehabilitation facility, acute rehabilitation facility (12/06/22 1035)} Please page [phone] with questions/concerns for in-house NSGY patients IMAGING: Results for orders placed or performed during the hospital encounter of 11/30/22 CT Head & Cervical Spine wo Contrast (Generic) (Exam End: 11/30/2022 9:12 PM) Impression 1. No acute intracranial hemorrhage or calvarial fracture. 2. No acute fracture or traumatic malalignment of the cervical spine. 3. Multilevel cervical spondylosis, with chronic severe central canal narrowing at C6-C7, related to focal ligamentum flavum calcification. Thank you for letting us participate in the care of this patient. If you are a health care provider and have any questions regarding this report, please contact the number below. For patients who have questions please contact the health animal care giver that requested your imaging first. Electronically signed by: Elizabeth Fishman MD, [facility] ([phone]), at 11/30/2022 9:[address] Thoracic Spine wo Contrast (Generic) (Exam End: 12/01/2022 12:14 AM) Impression 1. Acute on chronic T12 compression fracture, with interval increase of associated height loss, now approximately 75%. Unchanged mild retropulsion of the posterior-superior fracture fragments with resulting at least mild central canal stenosis. 2. No acute fracture or traumatic malalignment of the lumbar spine. Thank you for letting us participate in the care of this patient. If you are a health care provider and have any questions regarding this report, please contact the number below. For patients who have questions please contact the health animal care giver that requested your imaging first. Electronically signed by: Elizabeth Fishman MD, [facility] ([phone]), at 12/01/2022 12:[address] Lumbar Spine wo Contrast (Generic) (Exam End: 12/01/2022 12:14 AM) Impression 1. Acute on chronic T12 compression fracture, with interval increase of associated height loss, now approximately 75%. Unchanged mild retropulsion of the posterior-superior fracture fragments with resulting at least mild central canal stenosis. 2. No acute fracture or traumatic malalignment of the lumbar spine. Thank you for letting us participate in the care of this patient. If you are a health care provider and have any questions regarding this report, please contact the number below. For patients who have questions please contact the health animal care giver that requested your imaging first. Electronically signed by: Elizabeth Fishman MD, [facility] ([phone]), at 12/01/2022 12:53 AM MRI Cervical Spine wo Contrast (Generic) (Exam End: 12/01/2022 8:21 AM) Impression 1. Severe canal stenosis at C6 and C6-7 due to bulky mineralization along the posterior thecal sac. There is associated cord pressure and and signal abnormality. 2. Moderate to severe canal stenosis at C4-5 and moderate canal stenosis at C3-C4. 3. Unhealed compression fracture at T12 with mild retropulsion contributing to mild to moderate canal narrowing, mass effect on ventral nerve roots and subtle left ventral cord deformation. 4. Left paracentral disc protrusion at L5-S1 which may irritate the left S1 nerve roots. 5. No evidence for recent/unhealed fracture in the cervical or lumbar spine. 6. Subtle edema and sacrum, incompletely evaluated. Cannot exclude unhealed sacral insufficiency fractures. Thank you for letting us participate in the care of this patient. If you are a health care provider and have any questions regarding this report, please contact the number below. For patients who have questions please contact the health animal care giver that requested your imaging first. Electronically signed by: Funmilayo Marrero [facility] ([phone]), at 12/01/2022 9:27 AM MRI Thoracic Spine wo Contrast (Generic) (Exam End: 12/01/2022 8:21 AM) Impression 1. Severe canal stenosis at C6 and C6-7 due to bulky mineralization along the posterior thecal sac. There is associated cord pressure and and signal abnormality. 2. Moderate to severe canal stenosis at C4-5 and moderate canal stenosis at C3-C4. 3. Unhealed compression fracture at T12 with mild retropulsion contributing to mild to moderate canal narrowing, mass effect on ventral nerve roots and subtle left ventral cord deformation. 4. Left paracentral disc protrusion at L5-S1 which may irritate the left S1 nerve roots. 5. No evidence for recent/unhealed fracture in the cervical or lumbar spine. 6. Subtle edema and sacrum, incompletely evaluated. Cannot exclude unhealed sacral insufficiency fractures. Thank you for letting us participate in the care of this patient. If you are a health care provider and have any questions regarding this report, please contact the number below. For patients who have questions please contact the health animal care giver that requested your imaging first. Electronically signed by: Funmilayo Marrero [facility] ([phone]), at 12/01/2022 9:27 AM MRI Lumbar Spine wo Contrast (Generic) (Exam End: 12/01/2022 8:21 AM) Impression 1. Severe canal stenosis at C6 and C6-7 due to bulky mineralization along the posterior thecal sac. There is associated cord pressure and and signal abnormality. 2. Moderate to severe canal stenosis at C4-5 and moderate canal stenosis at C3-C4. 3. Unhealed compression fracture at T12 with mild retropulsion contributing to mild to moderate canal narrowing, mass effect on ventral nerve roots and subtle left ventral cord deformation. 4. Left paracentral disc protrusion at L5-S1 which may irritate the left S1 nerve roots. 5. No evidence for recent/unhealed fracture in the cervical or lumbar spine. 6. Subtle edema and sacrum, incompletely evaluated. Cannot exclude unhealed sacral insufficiency fractures. Thank you for letting us participate in the care of this patient. If you are a health care provider and have any questions regarding this report, please contact the number below. For patients who have questions please contact the health animal care giver that requested your imaging first. Electronically signed by: Funmilayo Marrero [facility] ([phone]), at 12/01/2022 9:27 AM XR Chest PA & Lateral (Generic) (Exam End: 12/01/2022 11:48 AM) Impression No acute findings. Thank you for letting us participate in the care of this patient. If you are a health care provider and have any questions regarding this report, please contact the number below. For patients who have questions please contact the health animal care giver that requested your imaging first. Electronically signed by: SHYANN CANTU MD, [facility] ([phone]), at 12/01/2022 12:06 PM XR Cervical Spine 2 or 3 Views (Exam End: 12/03/2022 10:10 AM) Impression Incomplete evaluation of the fusion hardware due to patient body habitus. Consider repeat exam or CT. Thank you for letting us participate in the care of this patient. If you are a health care provider and have any questions regarding this report, please contact the number below. For patients who have questions please contact the health animal care giver that requested your imaging first. Electronically signed by: SHYANN CANTU MD, [facility] ([phone]), at 12/03/2022 4:43 PM MEDICATIONS: Scheduled Meds: Continuous Infusions: PRN Meds: Vitals: Temp: [36.6 ??C (97.9 ??F)-37.6 ??C (99.7 ??F)] Heart Rate: -- Resp: [14-19] BP: (96-129)/(61-75) SpO2: [89 %-97 %] Heart Rate from SpO2: [79 bpm-91 bpm] BMI: Weight: 107.1 kg (236 lb 1.8 oz) (12/05/22 0600) BMI (Calculated): 37.69 BMI Classification: Obese I/O: I/O last 3 completed shifts: In: 1704 [P.O.:1704] Out: 1475 [Urine:1475] LABS: No results for input(s): WBC, HGB, PLATELET in the last 72 hours. No results for input(s): NA, K, CL, CO2, BUN, CREATININE in the last 72 hours. No results for input(s): PT, INR in the last 72 hours. Active Hospital Problems Diagnosis Cervical myelopathy Resolved Hospital Problems No resolved problems to display. Active Non-Hospital Problems Diagnosis Serous adenofibroma of left ovary Moderate opioid use disorder Thoracic compression fracture, sequela Herniation of lumbar intervertebral disc with radiculopathy Adnexal mass Primary osteoarthritis of right knee Carpal tunnel syndrome, bilateral Trigger thumb of left hand Knee pain, bilateral Osteoarthritis of patellofemoral joint Cervical spondylosis without myelopathy Cervical disc displacement Cervical radiculitis Occipital neuralgia Neck pain on left side Breast hypertrophy Louie Rosario MD 12/08/2022 I have seen and examined the patient, providing wood components as outlined below. I have reviewed the resident???s above note; my evaluation of the patient is below: Patient reporting pain is better controlled and is ready to re-attempt work with PT today and goingforward. Rest of care as outlined * Seb Abernathy PA - 12/07/2022 5:34 AM EDT NEUROSURGERY PROGRESS NOTE PLEASE PAGE [phone] WITH QUESTIONS ID: Katheryn Carranza is a 62 y.o. female with CSM who presented with worsening weakness and urinary incontinence since a fall 4 days prior to presentation. HD# 7 POD # 5 Days Post-Op 12/02/22 Dr. Zurita: C4-T2 PSIF, C5-7 laminectomies INTERVAL HX/ROS: -MICHAEL -Dysuria with +UA, culture pending, on Macrobid x 5d - No new concerns reported overnight EXAM: GEN: Overweight elderly woman, NAD NEURO: Speech fluent and appropriate. Face symmetric. Edentulous. MOTOR: RUE:5/5 LUE:5/5 RLE: 5/5 LLE: 4-/5 HF, 5KE, 4+ DF, 4+ PF SILT x4 BUE paresthesias in bilateral C7/C8 distribution improved Dressing c/d/i with parminder A/P: Katheryn Carranza is a 62 y.o. 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 Now s/p C4-T2 PSIF, C5-7 laminectomies. Recovering well. Will continue with mobilization with PTOT and pain control. -Neuro checks: q4h -Pain control -goal SBP < 160 -Diet: Regular diet. -RBOs -DVT prophylaxis: SCDs -SQH POD1 -activity as tolerated. -Monitor MANAN output, remove today -Must encourage mobilization with PTOT and nursing -Macrobid x 5d for UTI started 12/04 -PT/OT/ELECTRICAL EQUIPMENT TESTER : Anticipated Discharge Disposition (PT): halfway facility, swing bed rehabilitation facility, acute rehabilitation facility (12/06/22 1035)} -DISPOSITION: pending course -FULL CODE Please page [phone] with questions/concerns for in-house NSGY patients IMAGING: Results for orders placed or performed during the hospital encounter of 11/30/22 CT Head & Cervical Spine wo Contrast (Generic) (Exam End: 11/30/2022 9:12 PM) Impression 1. No acute intracranial hemorrhage or calvarial fracture. 2. No acute fracture or traumatic malalignment of the cervical spine. 3. Multilevel cervical spondylosis, with chronic severe central canal narrowing at C6-C7, related to focal ligamentum flavum calcification. Thank you for letting us participate in the care of this patient. If you are a health care provider and have any questions regarding this report, please contact the number below. For patients who have questions please contact the health animal care giver that requested your imaging first. Electronically signed by: Elizabeth Fishman MD, [facility] ([phone]), at 11/30/2022 9:[address] Thoracic Spine wo Contrast (Generic) (Exam End: 12/01/2022 12:14 AM) Impression 1. Acute on chronic T12 compression fracture, with interval increase of associated height loss, now approximately 75%. Unchanged mild retropulsion of the posterior-superior fracture fragments with resulting at least mild central canal stenosis. 2. No acute fracture or traumatic malalignment of the lumbar spine. Thank you for letting us participate in the care of this patient. If you are a health care provider and have any questions regarding this report, please contact the number below. For patients who have questions please contact the health animal care giver that requested your imaging first. Electronically signed by: Elizabeth Fishman MD, [facility] ([phone]), at 12/01/2022 12:[address] Lumbar Spine wo Contrast (Generic) (Exam End: 12/01/2022 12:14 AM) Impression 1. Acute on chronic T12 compression fracture, with interval increase of associated height loss, now approximately 75%. Unchanged mild retropulsion of the posterior-superior fracture fragments with resulting at least mild central canal stenosis. 2. No acute fracture or traumatic malalignment of the lumbar spine. Thank you for letting us participate in the care of this patient. If you are a health care provider and have any questions regarding this report, please contact the number below. For patients who have questions please contact the health animal care giver that requested your imaging first. Electronically signed by: Elizabeth Fishman MD, [facility] ([phone]), at 12/01/2022 12:53 AM MRI Cervical Spine wo Contrast (Generic) (Exam End: 12/01/2022 8:21 AM) Impression 1. Severe canal stenosis at C6 and C6-7 due to bulky mineralization along the posterior thecal sac. There is associated cord pressure and and signal abnormality. 2. Moderate to severe canal stenosis at C4-5 and moderate canal stenosis at C3-C4. 3. Unhealed compression fracture at T12 with mild retropulsion contributing to mild to moderate canal narrowing, mass effect on ventral nerve roots and subtle left ventral cord deformation. 4. Left paracentral disc protrusion at L5-S1 which may irritate the left S1 nerve roots. 5. No evidence for recent/unhealed fracture in the cervical or lumbar spine. 6. Subtle edema and sacrum, incompletely evaluated. Cannot exclude unhealed sacral insufficiency fractures. Thank you for letting us participate in the care of this patient. If you are a health care provider and have any questions regarding this report, please contact the number below. For patients who have questions please contact the health animal care giver that requested your imaging first. Electronically signed by: Funmilayo Marrero [facility] ([phone]), at 12/01/2022 9:27 AM MRI Thoracic Spine wo Contrast (Generic) (Exam End: 12/01/2022 8:21 AM) Impression 1. Severe canal stenosis at C6 and C6-7 due to bulky mineralization along the posterior thecal sac. There is associated cord pressure and and signal abnormality. 2. Moderate to severe canal stenosis at C4-5 and moderate canal stenosis at C3-C4. 3. Unhealed compression fracture at T12 with mild retropulsion contributing to mild to moderate canal narrowing, mass effect on ventral nerve roots and subtle left ventral cord deformation. 4. Left paracentral disc protrusion at L5-S1 which may irritate the left S1 nerve roots. 5. No evidence for recent/unhealed fracture in the cervical or lumbar spine. 6. Subtle edema and sacrum, incompletely evaluated. Cannot exclude unhealed sacral insufficiency fractures. Thank you for letting us participate in the care of this patient. If you are a health care provider and have any questions regarding this report, please contact the number below. For patients who have questions please contact the health animal care giver that requested your imaging first. Electronically signed by: Funmilayo Marrero [facility] ([phone]), at 12/01/2022 9:27 AM MRI Lumbar Spine wo Contrast (Generic) (Exam End: 12/01/2022 8:21 AM) Impression 1. Severe canal stenosis at C6 and C6-7 due to bulky mineralization along the posterior thecal sac. There is associated cord pressure and and signal abnormality. 2. Moderate to severe canal stenosis at C4-5 and moderate canal stenosis at C3-C4. 3. Unhealed compression fracture at T12 with mild retropulsion contributing to mild to moderate canal narrowing, mass effect on ventral nerve roots and subtle left ventral cord deformation. 4. Left paracentral disc protrusion at L5-S1 which may irritate the left S1 nerve roots. 5. No evidence for recent/unhealed fracture in the cervical or lumbar spine. 6. Subtle edema and sacrum, incompletely evaluated. Cannot exclude unhealed sacral insufficiency fractures. Thank you for letting us participate in the care of this patient. If you are a health care provider and have any questions regarding this report, please contact the number below. For patients who have questions please contact the health animal care giver that requested your imaging first. Chest PA & Lateral (Generic) (Exam End: 12/01/2022 11:48 AM) Impression No acute findings. Thank you for letting us participate in the care of this patient. If you are a health care provider and have any questions regarding this report, please contact the number below. For patients who have questions please contact the health animal care giver that requested your imaging first. Electronically signed by: SHYANN CANTU MD, [facility] ([phone]), at 12/01/2022 12:06 PM XR Cervical Spine 2 or 3 Views (Exam End: 12/03/2022 10:10 AM) Impression Incomplete evaluation of the fusion hardware due to patient body habitus. Consider repeat exam or CT. Thank you for letting us participate in the care of this patient. If you are a health care provider and have any questions regarding this report, please contact the number below. For patients who have questions please contact the health animal care giver that requested your imaging first. Electronically signed by: SHYANN CANTU MD, [facility] ([phone]), at 12/03/2022 4:43 PM MEDICATIONS: Scheduled Meds: Continuous Infusions: PRN Meds: Vitals: Temp: [36.4 ??C (97.5 ??F)-36.7 ??C (98.1 ??F)] Heart Rate: -- Resp: [15-17] BP: (92-98)/(61-73) SpO2: [92 %-95 %] Heart Rate from SpO2: [85 bpm-90 bpm] BMI: Weight: 107.1 kg (236 lb 1.8 oz) (12/05/22 0600) BMI (Calculated): 37.69 BMI Classification: Obese I/O: I/O last 3 completed shifts: In: 1609 [P.O.:1609] Out: 3167.5 [Urine:3100; Other:67.5] LABS: Recent Labs 12/04/22 0625 WBC 9.2 HGB 11.7 PLATELET 251 Recent Labs 12/04/22 0625 NA 138 K 3.5 CL 101 CO2 27 BUN 8 CREATININE 0.76 No results for input(s): PT, INR in the last 72 hours. Active Hospital Problems Diagnosis Cervical myelopathy Resolved Hospital Problems No resolved problems to display. Active Non-Hospital Problems Diagnosis Serous adenofibroma of left ovary Moderate opioid use disorder Thoracic compression fracture, sequela Herniation of lumbar intervertebral disc with radiculopathy Adnexal mass Primary osteoarthritis of right knee Carpal tunnel syndrome, bilateral Trigger thumb of left hand Knee pain, bilateral Osteoarthritis of patellofemoral joint Cervical spondylosis without myelopathy Cervical disc displacement Cervical radiculitis Occipital neuralgia Neck pain on left side Breast hypertrophy JOANNA Blackmon 12/07/2022 I have seen and examined the patient, providing wood components as outlined below. I have reviewed the resident???s above note; my evaluation of the patient is below: Patient reporting pain is better controlled and is ready to re-attempt work with PT today and goingforward. Rest of care as outlined Associated attestation - Tien Zurita MD - 12/07/2022 10:38 AM EDT I have seen and examined the patient, providing wood components as outlined below. I have reviewed the resident???s above note; my evaluation of the patient is below: Steps taken with PT yesterday, continue to mobilize as much as tolerated. Discharge to swing or acute rehab pending. * Seb Dickens - 12/06/2022 10:35 AM EDT Physical Therapy Note Treatment Number PT: 2 Patient profile: Katheryn Carranza is a 62 y.o. female with CSM who presented with worsening weakness and urinary incontinence since a fall 4 days prior to presentation. OR on 12/02/22 for C4-T2 PSIF, C5-7 laminectomies Social History: Home set-up: Pt lives with her Prieto in a multi-level home. All of her needs have been met on the first level for the last few months due to inability to negotiate the FOS. She sleeps in a recliner chair. Bathroom Set-up: tub shower with shower chair Stairs: 3STE without rail Baseline Mobility: Pt ambulates with a 4WW at baseline, and uses a w/c for longer distances. She was limited in her ability to negotiate her home environment, and daughter has been assisting her withbathing. 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 Mobility and Positioning Recommendations: Pt needs 1-person assist using FWW to move bed to chair, taking some steps to do so. Pt should ambulate with this assist several times a day to promote optimal functional abilities while here. Please encourage up to chair for meal times as able. Subjective: I don't know how much I can do I have pain in my neck and down in my back too Objective: Patient seen for physical therapy and demonstrated the following: Pain: moderate, neck and mid back Vital Signs: stable Cognition: not formally assessed; pt cooperative, does have much grimacing when mobilizing, at times has sense of humor Bed Mobility: Supine to Sit: min assist, with HOB 30, to R side Sit to Supine: n/t Sitting EOB, min assist to scoot closer to EOB Sitting with feet on floor, steadily, with standby supervision Transfers: Sit to Stand: mod assist, rocking on count of 3 to stand, FWW Stand to Sit: cues for hand placemen, using FWW, good control into sitting Assist needed to put chair in reclined position Gait: Distance: 3 feet Device used: FWW Level of assist: min assist Legs appears slightly tremulous, irregular stepping, perhaps subtle proprioceptive awareness Balance: Sitting Static: good Sitting Dynamic: fair Standing Static: fair Standing Dynamic / Gait: fair Education: role of PT, precautions, importance of mobilizing OOB and attempting to walk more with nursing staff and therapy progression Assessment: Katheryn Carranza was seen today for physical therapy treatment session for continuation of POC. Tolerated PT fairly. Still having pain but seemingly not as impactful as last PT visit. Presents with pain, obesity, hx of falls, post op spine precautions, deconditioning, all impacting her functional mobility, ambulation, safety, activity tolerance and ability to manage her own needs. Pt will benefit from ongoing therapeutic interventions to achieve therapy goals. She is still below her functional baseline and will benefit from a rehabilitative setting prior to going home. Discharge Recommendations: Based on the current findings, Anticipated Discharge Disposition (PT): halfway facility, swing bed rehabilitation facility, acute rehabilitation facility when medically ready for hospital discharge. Consult Recommendations: No other consults recommended at this time. Equipment needs: Anticipated Equipment Needs at Discharge (PT): to be determined Pt. to demonstrate knowledge of safety limitations and precautions and will appropriately request assistance for functional activities and to mobilize. Pt. to perform bed mobility with supervision. Pt. to perform sit<>stand transfers with supervision using a front wheeled walker. Pt. to ambulate 100 feet with supervision using a front wheeled walker. Pt. to ambulate up/down 3 step/stairs using one hand hold and straight cane with min A. Family or caregiver to demonstrate understanding of therapeutic interventions to support the care of the patient. Plan: Therapy Frequency (PT): 2-4 times/wk for therapy interventions as outlined in initial evaluation. Patient agrees with plan as stated. Time IN / OUT: 7821-6234 Total Minutes, Physical Therapy: 28 Billing Code: 2 TA Seb Dickens DPT Pager: [phone] Physical Therapy Inpatient Rehabilitation Department * Tien Zurita MD - 12/06/2022 7:28 AM EDT NEUROSURGERY PROGRESS NOTE PLEASE PAGE [phone] WITH QUESTIONS ID: Katheryn Carranza is a 62 y.o. female with CSM who presented with worsening weakness and urinary incontinence since a fall 4 days prior to presentation. HD# 6 POD # 4 Days Post-Op 12/02/22 Dr. Zurita: C4-T2 PSIF, C5-7 laminectomies INTERVAL HX/ROS: -MICHAEL -Dysuria yesterday with +UA, culture pending, on Macrobid x 5d -XR done EXAM: MANAN x 1 = 67cc, SS GEN: Overweight elderly woman, NAD NEURO: Speech fluent and appropriate. Face symmetric. Edentulous. MOTOR: RUE:5/5 LUE:5/5 RLE: 5/5 LLE: 4-/5 HF, 5KE, 4+ DF, 4+ PF SILT x4 BUE paresthesias in bilateral C7/C8 distribution improved Paresthesias from ~T8 down Dressing c/d/i with parminder A/P: Katheryn Carranza is a 62 y.o. 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 MRI C/T/L obtained and re-demonstrates C6-7 stenosis secondary to thickened ligamentum flavum with T2 signal change in the cord, as well as T12 compression fracture with slightly more height loss andbuckling of posterior cortex without compression of spinal cord, as well as same L5/S1 disc. Now s/p C4-T2 PSIF, C5-7 laminectomies. Recovering well. Will continue with mobilization with PTOT and pain control. -Neuro checks: q4h -Imaging: postop XR done -Pain control -goal SBP < 160 -Diet: Regular diet. -RBOs -DVT prophylaxis: SCDs -SQH POD1 -activity as tolerated. -Monitor MANAN output, remove today -Must encourage mobilization with PTOT and nursing -Macrobid x 5d for UTI started 12/04 -PT/OT/ELECTRICAL EQUIPMENT TESTER : Anticipated Discharge Disposition (PT): halfway facility (12/04/22 1010)} -DISPOSITION: pending course -FULL CODE Please page [phone] with questions/concerns for in-house NSGY patients IMAGING: Results for orders placed or performed during the hospital encounter of 11/30/22 CT Head & Cervical Spine wo Contrast (Generic) (Exam End: 11/30/2022 9:12 PM) Impression 1. No acute intracranial hemorrhage or calvarial fracture. 2. No acute fracture or traumatic malalignment of the cervical spine. 3. Multilevel cervical spondylosis, with chronic severe central canal narrowing at C6-C7, related to focal ligamentum flavum calcification. Thank you for letting us participate in the care of this patient. If you are a health care provider and have any questions regarding this report, please contact the number below. For patients who have questions please contact the health animal care giver that requested your imaging first. Electronically signed by: Elizabeth Fishman MD, [facility] ([phone]), at 11/30/2022 9:[address] Thoracic Spine wo Contrast (Generic) (Exam End: 12/01/2022 12:14 AM) Impression 1. Acute on chronic T12 compression fracture, with interval increase of associated height loss, now approximately 75%. Unchanged mild retropulsion of the posterior-superior fracture fragments with resulting at least mild central canal stenosis. 2. No acute fracture or traumatic malalignment of the lumbar spine. Thank you for letting us participate in the care of this patient. If you are a health care provider and have any questions regarding this report, please contact the number below. For patients who have questions please contact the health animal care giver that requested your imaging first. Electronically signed by: Elizabeth Fishman MD, [facility] ([phone]), at 12/01/2022 12:[address] Lumbar Spine wo Contrast (Generic) (Exam End: 12/01/2022 12:14 AM) Impression 1. Acute on chronic T12 compression fracture, with interval increase of associated height loss, now approximately 75%. Unchanged mild retropulsion of the posterior-superior fracture fragments with resulting at least mild central canal stenosis. 2. No acute fracture or traumatic malalignment of the lumbar spine. Thank you for letting us participate in the care of this patient. If you are a health care provider and have any questions regarding this report, please contact the number below. For patients who have questions please contact the health animal care giver that requested your imaging first. Electronically signed by: Elizabeth Fishman MD, [facility] ([phone]), at 12/01/2022 12:53 AM MRI Cervical Spine wo Contrast (Generic) (Exam End: 12/01/2022 8:21 AM) Impression 1. Severe canal stenosis at C6 and C6-7 due to bulky mineralization along the posterior thecal sac. There is associated cord pressure and and signal abnormality. 2. Moderate to severe canal stenosis at C4-5 and moderate canal stenosis at C3-C4. 3. Unhealed compression fracture at T12 with mild retropulsion contributing to mild to moderate canal narrowing, mass effect on ventral nerve roots and subtle left ventral cord deformation. 4. Left paracentral disc protrusion at L5-S1 which may irritate the left S1 nerve roots. 5. No evidence for recent/unhealed fracture in the cervical or lumbar spine. 6. Subtle edema and sacrum, incompletely evaluated. Cannot exclude unhealed sacral insufficiency fractures. Thank you for letting us participate in the care of this patient. If you are a health care provider and have any questions regarding this report, please contact the number below. For patients who have questions please contact the health animal care giver that requested your imaging first. Electronically signed by: Funmilayo Marrero [facility] ([phone]), at 12/01/2022 9:27 AM MRI Thoracic Spine wo Contrast (Generic) (Exam End: 12/01/2022 8:21 AM) Impression 1. Severe canal stenosis at C6 and C6-7 due to bulky mineralization along the posterior thecal sac. There is associated cord pressure and and signal abnormality. 2. Moderate to severe canal stenosis at C4-5 and moderate canal stenosis at C3-C4. 3. Unhealed compression fracture at T12 with mild retropulsion contributing to mild to moderate canal narrowing, mass effect on ventral nerve roots and subtle left ventral cord deformation. 4. Left paracentral disc protrusion at L5-S1 which may irritate the left S1 nerve roots. 5. No evidence for recent/unhealed fracture in the cervical or lumbar spine. 6. Subtle edema and sacrum, incompletely evaluated. Cannot exclude unhealed sacral insufficiency fractures. Thank you for letting us participate in the care of this patient. If you are a health care provider and have any questions regarding this report, please contact the number below. For patients who have questions please contact the health animal care giver that requested your imaging first. Electronically signed by: Funmilayo Marrero [facility] ([phone]), at 12/01/2022 9:27 AM MRI Lumbar Spine wo Contrast (Generic) (Exam End: 12/01/2022 8:21 AM) Impression 1. Severe canal stenosis at C6 and C6-7 due to bulky mineralization along the posterior thecal sac. There is associated cord pressure and and signal abnormality. 2. Moderate to severe canal stenosis at C4-5 and moderate canal stenosis at C3-C4. 3. Unhealed compression fracture at T12 with mild retropulsion contributing to mild to moderate canal narrowing, mass effect on ventral nerve roots and subtle left ventral cord deformation. 4. Left paracentral disc protrusion at L5-S1 which may irritate the left S1 nerve roots. 5. No evidence for recent/unhealed fracture in the cervical or lumbar spine. 6. Subtle edema and sacrum, incompletely evaluated. Cannot exclude unhealed sacral insufficiency fractures. Thank you for letting us participate in the care of this patient. If you are a health care provider and have any questions regarding this report, please contact the number below. For patients who have questions please contact the health animal care giver that requested your imaging first. Electronically signed by: Funmilayo Marrero [facility] ([phone]), at 12/01/2022 9:27 AM XR Chest PA & Lateral (Generic) (Exam End: 12/01/2022 11:48 AM) Impression No acute findings. Thank you for letting us participate in the care of this patient. If you are a health care provider and have any questions regarding this report, please contact the number below. For patients who have questions please contact the health animal care giver that requested your imaging first. Electronically signed by: SHYANN CANTU MD, [facility] ([phone]), at 12/01/2022 12:06 PM XR Cervical Spine 2 or 3 Views (Exam End: 12/03/2022 10:10 AM) Impression Incomplete evaluation of the fusion hardware due to patient body habitus. Consider repeat exam or CT. Thank you for letting us participate in the care of this patient. If you are a health care provider and have any questions regarding this report, please contact the number below. For patients who have questions please contact the health animal care giver that requested your imaging first. Electronically signed by: SHYANN CANTU MD, [facility] ([phone]), at 12/03/2022 4:43 PM MEDICATIONS: Scheduled Meds: Continuous Infusions: PRN Meds: Vitals: Temp: [36.6 ??C (97.9 ??F)-37.6 ??C (99.7 ??F)] Heart Rate: -- Resp: [15-18] BP: (98-149)/(76-84) SpO2: [90 %-100 %] Heart Rate from SpO2: [90 bpm-102 bpm] BMI: Weight: 107.1 kg (236 lb 1.8 oz) (12/05/22 0600) BMI (Calculated): 37.69 BMI Classification: Obese I/O: I/O last 3 completed shifts: In: 1005 [P.O.:1005] Out: 2837.5 [Urine:2750; Other:87.5] LABS: Recent Labs 12/04/22 0625 12/03/22 0836 WBC 9.2 11.2* HGB 11.7 12.1 PLATELET 251 266 Recent Labs 12/04/22 0625 12/03/22 0836 NA 138 139 K 3.5 4.0 CL 101 102 CO2 27 24 BUN 8 6* CREATININE 0.76 0.62* No results for input(s): PT, INR in the last 72 hours. Active Hospital Problems Diagnosis Cervical myelopathy Resolved Hospital Problems No resolved problems to display. Active Non-Hospital Problems Diagnosis Serous adenofibroma of left ovary Moderate opioid use disorder Thoracic compression fracture, sequela Herniation of lumbar intervertebral disc with radiculopathy Adnexal mass Primary osteoarthritis of right knee Carpal tunnel syndrome, bilateral Trigger thumb of left hand Knee pain, bilateral Osteoarthritis of patellofemoral joint Cervical spondylosis without myelopathy Cervical disc displacement Cervical radiculitis Occipital neuralgia Neck pain on left side Breast hypertrophy Louie Rosario MD 12/06/2022 I have seen and examined the patient, providing wood components as outlined below. I have reviewed the resident???s above note; my evaluation of the patient is below: Patient reporting pain is better controlled and is ready to re-attempt work with PT today and goingforward. Rest of care as outlined * Jackie Pagan MD - 12/05/2022 5:48 AM EDT NEUROSURGERY PROGRESS NOTE PLEASE PAGE [phone] WITH QUESTIONS ID: Katheryn Carranza is a 62 y.o. female with CSM who presented with worsening weakness and urinary incontinence since a fall 4 days prior to presentation. HD# 5 POD # 3 Days Post-Op 12/02/22 Dr. Zurita: C4-T2 PSIF, C5-7 laminectomies INTERVAL HX/ROS: -MICHAEL -Dysuria yesterday with +UA, culture pending, on Macrobid x 5d -XR done -Minimally working with PT, refusing most mobilization, saying she wants to go slowly EXAM: MANAN x 1 = 87cc, SS GEN: Overweight elderly woman, NAD NEURO: Speech fluent and appropriate. Face symmetric. Edentulous. MOTOR: RUE:5/5 LUE:5/5 RLE: 5/5 LLE: 4-/5 HF, 5KE, 4+ DF, 4+ PF SILT x4 BUE paresthesias in bilateral C7/C8 distribution improved Paresthesias from ~T8 down Dressing c/d/i with parminder A/P: Katheryn Carranza is a 62 y.o. 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 MRI C/T/L obtained and re-demonstrates C6-7 stenosis secondary to thickened ligamentum flavum with T2 signal change in the cord, as well as T12 compression fracture with slightly more height loss andbuckling of posterior cortex without compression of spinal cord, as well as same L5/S1 disc. Now s/p C4-T2 PSIF, C5-7 laminectomies. Recovering well. Will continue with mobilization with PTOT and pain control. -Neuro checks: q4h -Imaging: postop XR done -Pain control -goal SBP < 160 -Diet: Regular diet. -RBOs -DVT prophylaxis: SCDs -SQH POD1 -activity as tolerated. -Monitor MANAN output -Must encourage mobilization with PTOT and nursing -Macrobid x 5d for UTI started 12/04 -PT/OT/ELECTRICAL EQUIPMENT TESTER : Anticipated Discharge Disposition (PT): halfway facility (12/04/22 1010)} -DISPOSITION: pending course -FULL CODE Please page [phone] with questions/concerns for in-house NSGY patients IMAGING: Results for orders placed or performed during the hospital encounter of 11/30/22 CT Head & Cervical Spine wo Contrast (Generic) (Exam End: 11/30/2022 9:12 PM) Impression 1. No acute intracranial hemorrhage or calvarial fracture. 2. No acute fracture or traumatic malalignment of the cervical spine. 3. Multilevel cervical spondylosis, with chronic severe central canal narrowing at C6-C7, related to focal ligamentum flavum calcification. Thank you for letting us participate in the care of this patient. If you are a health care provider and have any questions regarding this report, please contact the number below. For patients who have questions please contact the health animal care giver that requested your imaging first. Electronically signed by: Elizabeth Fishman MD, [facility] ([phone]), at 11/30/2022 9:[address] Thoracic Spine wo Contrast (Generic) (Exam End: 12/01/2022 12:14 AM) Impression 1. Acute on chronic T12 compression fracture, with interval increase of associated height loss, now approximately 75%. Unchanged mild retropulsion of the posterior-superior fracture fragments with resulting at least mild central canal stenosis. 2. No acute fracture or traumatic malalignment of the lumbar spine. Thank you for letting us participate in the care of this patient. If you are a health care provider and have any questions regarding this report, please contact the number below. For patients who have questions please contact the health animal care giver that requested your imaging first. Electronically signed by: Elizabeth Fishman MD, [facility] ([phone]), at 12/01/2022 12:[address] Lumbar Spine wo Contrast (Generic) (Exam End: 12/01/2022 12:14 AM) Impression 1. Acute on chronic T12 compression fracture, with interval increase of associated height loss, now approximately 75%. Unchanged mild retropulsion of the posterior-superior fracture fragments with resulting at least mild central canal stenosis. 2. No acute fracture or traumatic malalignment of the lumbar spine. Thank you for letting us participate in the care of this patient. If you are a health care provider and have any questions regarding this report, please contact the number below. For patients who have questions please contact the health animal care giver that requested your imaging first. Electronically signed by: Elizabeth Fishman MD, [facility] ([phone]), at 12/01/2022 12:53 AM MRI Cervical Spine wo Contrast (Generic) (Exam End: 12/01/2022 8:21 AM) Impression 1. Severe canal stenosis at C6 and C6-7 due to bulky mineralization along the posterior thecal sac. There is associated cord pressure and and signal abnormality. 2. Moderate to severe canal stenosis at C4-5 and moderate canal stenosis at C3-C4. 3. Unhealed compression fracture at T12 with mild retropulsion contributing to mild to moderate canal narrowing, mass effect on ventral nerve roots and subtle left ventral cord deformation. 4. Left paracentral disc protrusion at L5-S1 which may irritate the left S1 nerve roots. 5. No evidence for recent/unhealed fracture in the cervical or lumbar spine. 6. Subtle edema and sacrum, incompletely evaluated. Cannot exclude unhealed sacral insufficiency fractures. Thank you for letting us participate in the care of this patient. If you are a health care provider and have any questions regarding this report, please contact the number below. For patients who have questions please contact the health animal care giver that requested your imaging first. Electronically signed by: Funmilayo Marrero [facility] ([phone]), at 12/01/2022 9:27 AM MRI Thoracic Spine wo Contrast (Generic) (Exam End: 12/01/2022 8:21 AM) Impression 1. Severe canal stenosis at C6 and C6-7 due to bulky mineralization along the posterior thecal sac. There is associated cord pressure and and signal abnormality. 2. Moderate to severe canal stenosis at C4-5 and moderate canal stenosis at C3-C4. 3. Unhealed compression fracture at T12 with mild retropulsion contributing to mild to moderate canal narrowing, mass effect on ventral nerve roots and subtle left ventral cord deformation. 4. Left paracentral disc protrusion at L5-S1 which may irritate the left S1 nerve roots. 5. No evidence for recent/unhealed fracture in the cervical or lumbar spine. 6. Subtle edema and sacrum, incompletely evaluated. Cannot exclude unhealed sacral insufficiency fractures. Thank you for letting us participate in the care of this patient. If you are a health care provider and have any questions regarding this report, please contact the number below. For patients who have questions please contact the health animal care giver that requested your imaging first. Electronically signed by: Funmilayo Marrero [facility] ([phone]), at 12/01/2022 9:27 AM MRI Lumbar Spine wo Contrast (Generic) (Exam End: 12/01/2022 8:21 AM) Impression 1. Severe canal stenosis at C6 and C6-7 due to bulky mineralization along the posterior thecal sac. There is associated cord pressure and and signal abnormality. 2. Moderate to severe canal stenosis at C4-5 and moderate canal stenosis at C3-C4. 3. Unhealed compression fracture at T12 with mild retropulsion contributing to mild to moderate canal narrowing, mass effect on ventral nerve roots and subtle left ventral cord deformation. 4. Left paracentral disc protrusion at L5-S1 which may irritate the left S1 nerve roots. 5. No evidence for recent/unhealed fracture in the cervical or lumbar spine. 6. Subtle edema and sacrum, incompletely evaluated. Cannot exclude unhealed sacral insufficiency fractures. Thank you for letting us participate in the care of this patient. If you are a health care provider and have any questions regarding this report, please contact the number below. For patients who have questions please contact the health animal care giver that requested your imaging first. Electronically signed by: Funmilayo Marrero [facility] ([phone]), at 12/01/2022 9:27 AM XR Chest PA & Lateral (Generic) (Exam End: 12/01/2022 11:48 AM) Impression No acute findings. Thank you for letting us participate in the care of this patient. If you are a health care provider and have any questions regarding this report, please contact the number below. For patients who have questions please contact the health animal care giver that requested your imaging first. Electronically signed by: SHYANN CANTU MD, [facility] ([phone]), at 12/01/2022 12:06 PM XR Cervical Spine 2 or 3 Views (Exam End: 12/03/2022 10:10 AM) Impression Incomplete evaluation of the fusion hardware due to patient body habitus. Consider repeat exam or CT. Thank you for letting us participate in the care of this patient. If you are a health care provider and have any questions regarding this report, please contact the number below. For patients who have questions please contact the health animal care giver that requested your imaging first. Electronically signed by: SHYANN CANTU MD, [facility] ([phone]), at 12/03/2022 4:43 PM MEDICATIONS: Scheduled Meds: Continuous Infusions: PRN Meds: Vitals: Temp: [36.4 ??C (97.5 ??F)-37.3 ??C (99.1 ??F)] Heart Rate: -- Resp: [17-18] BP: (140-169)/(87-98) SpO2: [92 %-96 %] Heart Rate from SpO2: [90 bpm-111 bpm] BMI: Weight: 104.3 kg (230 lb) (11/30/221943) BMI (Calculated): 37.69 BMI Classification: Obese I/O: I/O last 3 completed shifts: In: 2462 [P.O.:2462] Out: 5788 [Urine:5531; Other:257] LABS: Recent Labs 12/04/22 0612/03/22 0836 12/02/22 0659 WBC 9.2 11.2* 7.4 HGB 11.7 12.1 12.7 PLATELET 251 266 243 Recent Labs 12/04/2262412/03/22 0836 12/02/22 0659 NA 138 139 138 K 3.5 4.0 4.2 CL 101 102 100 CO2 27 24 27 BUN 8 6* 8 CREATININE 0.76 0.62* 0.73 No results for input(s): PT, INR in the last 72 hours. Active Hospital Problems Diagnosis Cervical myelopathy Resolved Hospital Problems No resolved problems to display. Active Non-Hospital Problems Diagnosis Serous adenofibroma of left ovary Moderate opioid use disorder Thoracic compression fracture, sequela Herniation of lumbar intervertebral disc with radiculopathy Adnexal mass Primary osteoarthritis of right knee Carpal tunnel syndrome, bilateral Trigger thumb of left hand Knee pain, bilateral Osteoarthritis of patellofemoral joint Cervical spondylosis without myelopathy Cervical disc displacement Cervical radiculitis Occipital neuralgia Neck pain on left side Breast hypertrophy Jackie Pagan MD 12/05/2022 Associated attestation - Tien Zurita MD - 12/05/2022 11:46 AM EDT I have seen and examined the patient, providing wood components as outlined below. I have reviewed the resident???s above note; my evaluation of the patient is below: Improved sensation and strength in the left hand and leg, but still significant residual weakness. Post-operative x-rays demonstrating satisfactory alignment and hardware placement (hardware placement better evaluated on intraoperative CT). Continue aggressive PT/OT and dispo planning. * Lissette Barkley RN - 12/05/2022 12:31 AM EDT Page Confirmation To Pager number: [phone] From Submitter: Lissette Barkley Urgency Level: Call Me Callback Number: [phone] The following Message was sent: [Call Me] - Callback:[phone] Leo Carranza. c/o headache 10/10, canI give Tylenol 3, and Toradol? - Lissette Barkley Pt reports 10/10 pain The pain is moving up into my head. Pt states prior relief with Tylenol 3 and Toradol IV, at the same time. Per MAR order, verifying best option with MD. Neuro check finds no changes from prior assessment. Oxycodone given prior. Continue to monitor and support patient. * Diane Peña RN - 12/04/2022 6:30 PM EDT Katheryn Carranza transferred to room 522. Report called to Julia. RN. All belongings and medications sent with patient. IV site CDI, skin free from pressure ulcers. Family notified of transfer. * Vianney Bey RN - 12/04/2022 6:16 PM EDT Pt transferred in hospital bed, A&Ox4, talkative and awake, pain is 9/10, gave Oxycodone PRN VSS, alarms on, call light in hand. * Fifi Park PT - 12/04/2022 10:10 AM EDT Physical Therapy Evaluation Patient profile: Katheryn Carranza is a 62 y.o. female with CSM who presented with worsening weakness and urinary incontinence since a fall 4 days prior to presentation. 12/02/22 Dr. Zurita: C4-T2 PSIF, C5-7 laminectomies Patient with the following active problems: Past Medical History: Diagnosis Date ADD (attention deficit disorder) Depression ARCHANA (generalized anxiety disorder) Headache Hypertension Neck pain on left side 07/04/2012 Thoracic compression fracture, sequela 08/03/2022 Tobacco abuse Active Non-Hospital Problems Diagnosis Serous adenofibroma of left ovary Moderate opioid use disorder Thoracic compression fracture, sequela Herniation of lumbar intervertebral disc with radiculopathy Adnexal mass Primary osteoarthritis of right knee Carpal tunnel syndrome, bilateral Trigger thumb of left hand Knee pain, bilateral Osteoarthritis of patellofemoral joint Cervical spondylosis without myelopathy Cervical disc displacement Cervical radiculitis Occipital neuralgia Neck pain on left side Breast hypertrophy Past Surgical History: Procedure Laterality Date BREAST REDUCTION SURGERY Bilateral 12/2011 HYSTERECTOMY PRG FLUOROSCOPY EXAM UP TO 1 HR PHY OR OTH HLTH CARE PROV N/A 12/02/2022 FLUOROSCOPY (WRVU 0.3) performed by Tien Zurita MD at [facility] MAIN OR PRO ALLOGRAFT FOR SPINE SURGERY ONLY MORSELIZED N/A 12/02/2022 ALLOGRAFT FOR SPINE SURGERY ONLY; MORSELIZED (WRVU *) performed by Tien Zurita MD at [facility] MAIN OR PRO ARTHRODESIS POSTERIOR/PSTLAT TECH 1 INTERSPACE LUMBAR, EA ADD'L INTERSPACE N/A 12/02/2022 ARTHRODESIS, POSTERIOR VERTEBRAL EA.ADD. SEGMENT (WRVU 6.43) performed by Tien Zurita MD at [facility] MAIN OR PRO ARTHRODESIS, POST/POSTEROLAT TQ, SNGLE INTERSPACE; CERVICAL BELOW C2 SEGMNT N/A 12/02/2022 @ARTHRODESIS, POSTERIOR CERVICAL SPINE (WRVU 17.4) performed by Tien Zurita MD at [facility] MAIN OR PRO AUTOGRAFT SPINE SURGERY LOCAL FROM SAME INCISION N/A 12/02/2022 AUTOGRAFT FOR SPINE SURGERY ONLY, SAME INCISION (WRVU *) performed by Tien Zurita MD at [facility] MAIN OR PRO BREAST REDUCTION 12/09/2011 REDUCTION MAMMOPLASTY, CHRISTIAN performed by DEMETRA SOMMERS at [facility] MAIN OR PRO LAMINEC/FACETECT/FORAMIN, CERVICAL 1 SEG N/A 12/02/2022 LAMINECTOMY, FACETECTOMY & FORAMINOTOMY, CX, ONE LEVEL (WRVU 17.95) performed by Tien Zurita MD at [facility] MAIN OR PRO LAP, DIAGNOSTIC ABDOMEN Left 08/02/2022 LAPAROSCOPY, DIAGNOSTIC, ABDOMEN (WRVU 5.14) performed by Antonio Rojas MD at [facility] MAIN OR PRO POSTERIOR SEGMENTAL INSTRUMENTATION 3-6 VRT SEG N/A 12/02/2022 POST SPINAL INSTRUMENTATION, 3-6 VERTEBRA, NON SEGMENTAL (WRVU 12.56) performed by Tien Zurita MD at [facility] OR PRO REMOVAL OF OVARY/TUBE(S) Left 08/02/2022 @SALPINGO-OOPHORECTOMY, UNILATERAL OR CHRISTIAN (WRVU 12.16) performed by Antonio Rojas MD at [facility] OR PRO STEROTACTIC CPTR ASSTD PX SPINAL N/A 12/02/2022 STEREOTACTIC COMPUTER-ASSTD NAVIGATIONAL SPINAL (WRVU 3.75) [facility] UPPER GI ENDOSCOPY, DIAGNOSTIC N/A 08/05/2022 EGD, UPPER GI ENDOSCOPY performed by Donnie Obrien MD at [facility] ENDOSCOPY Social History: Home set-up: Pt lives with her Prieto in a multi-level home. All of her needs have been met on the first level for the last few months due to inability to negotiate the FOS. She sleeps in a recliner chair. Bathroom Set-up: tub shower with shower chair Stairs: 3STE without rail Baseline Mobility: Pt ambulates with a 4WW at baseline, and uses a w/c for longer distances. She was limited in her ability to negotiate her home environment, and daughter has been assisting her withbathing. 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 Lines: MANAN drain, purewick, PIV, masimo Activity Orders: up with assistance Diet: regular Mobility and Positioning Recommendations: Pt. to utilize mechanical lift for transfers with nursing. Please encourage up to chair for meal times as able. Subjective: ???Stop, I can't do this!!?? Objective: Pt seen for evaluation today. Pain: Pt reports significant pain in neck and BUEs, endorses cramping pain in arms Vital Signs: VSS throughout on RA Mental Status: alert, oriented, anxious, emotional Vision: corrective lenses for reading Skin: incision covered with dressing, C/D/I, MANAN drain in place Musculoskeletal: ROM: WFL LEs, UEs and c-spine limited by pain Strength: WFL LEs, slightly increased strength R>L Sensation: not formally assessed Bed Mobility: Supine to Sit: mod assist x2 with HOB elevated, required chux pad to pivot hips Sit to Supine: mod assist for LEs, max assist x2 to boost in bed Transfers: pt adamantly declined further mobility, asking frequently to return to supine once sitting EOB Sit to Stand: NA Stand to Sit: NA Bed to Chair: NA Gait: NA Stairs: NA Balance: Sitting Static: good Sitting Dynamic: fair Standing Static: NA Standing Dynamic / Gait: NA Education: patient has been educated on Bed mobility, Transfers, Positioning, Safety , Precautions/protocol, and Role of therapy and will require reinforcement. Patient status, treatment, and mobility recommendations discussed with nursing. Assessment: Katheryn Carranza was seen today for physical therapy evaluation. Pt presented with worsening weakness and urinary incontinence since a fall 4 days prior to presentation, now s/p C4-T2 PSIF,C5-7 laminectomies. Pt was very reluctant to participate in mobility assessment d/t pain, but ultimately agreed to sit EOB with assistance. Upon evaluation, patient presents with decreased strength, decreased ROM, impaired balance, impaired activity tolerance, pain, impaired gait mechanics, impaired endurance, and impaired posture, resulting in functional limitation. Pt was very limited by pain control, and was unable to progress to standing activities. Based on current level of function, pt would be unable to safely return home, and would benefit from d/c to inpatient rehab facility once medically ready. The pt would benefit from skilled therapy services while in the hospital to maximize functional abilities. Discharge Recommendations: Based on the current findings, Anticipated Discharge Disposition (PT): halfway facility when medically ready for hospital discharge. Discharge recommendation is based on the patient's current physical impairments, prior functional status, potential to return to prior level of function, patient motivation, reported home support, potential for functional gains, current level of endurance, reported home environment and anticipated trajectory of progress and may change based on patient progress during this hospitalization. Consult Recommendations: No other consults recommended at this time. Equipment needs: Anticipated Equipment Needs at Discharge (PT): to be determined Goals: To be achieved by 12/18/22: Pt. to demonstrate knowledge of safety limitations and precautions and will appropriately request assistance for functional activities and to mobilize. Pt. to perform bed mobility with supervision. Pt. to perform sit<>stand transfers with supervision using a front wheeled walker. Pt. to ambulate 100 feet with supervision using a front wheeled walker. Pt. to ambulate up/down 3 step/stairs using one hand hold and straight cane with min A. Family or caregiver to demonstrate understanding of therapeutic interventions to support the care of the patient. Plan: Therapy Frequency (PT): 2-4 times/wk for therapy including balance training, bed mobility training, gait training, patient/family education, postural re-education, stair training, strengthening, and transfer training. Patient/family understand and agree with plan as stated above. 2017 PT Evaluation Code Rationale: Diagnosis & Pertinent Co-Morbidities, personal factors, and present illness affecting Plan of Care: (see above); Additional personal factors or co- morbidities that impact plan: Total # of Factors: 0 1-2 3+ X Examination of body system impairments, functional limitations and behaviors, and/or participation restrictions. Addressing 1-2 elements Addressing 3 + elements X Addressing 4 + elements Clinical presentation: See assessment above. Stable/Uncomplicated Evolving/Fluctuating Symptoms Unstable/Unpredictable X- pain Clinical decision making of moderate complexity based on pt's functional performance as outlined inthis evaluation. Time IN / OUT: 4306-5897 Total Minutes, Physical Therapy: 20 Billing Code: mod complexity eval Fifi Park, PT Pager: [phone] Physical Therapy Inpatient Rehabilitation Department * Jackie Pagan MD - 12/04/2022 6:14 AM EDT NEUROSURGERY PROGRESS NOTE PLEASE PAGE [phone] WITH QUESTIONS ID: Katheryn Carranza is a 62 y.o. female with CSM who presented with worsening weakness and urinary incontinence since a fall 4 days prior to presentation. HD# 4 POD # 2 Days Post-Op 12/02/22 Dr. Zurita: C4-T2 PSIF, C5-7 laminectomies INTERVAL HX/ROS: -MICHAEL -Fournier removed and voiding, tolerating PO, has not yet been OOB -Postop XR done -C/f pain medications from home found in patient's bed overnight, pending review/search EXAM: MANAN x 1 = 190cc, SS GEN:Middle aged woman, resting comfortably in bed watching television NEURO: Speech fluent and appropriate. Face symmetric. Edentulous. MOTOR: RUE:5/5 LUE:5/5 RLE: 5/5 LLE: 3/5 HF, 5KE, 4+ DF, 4+ PF SILT x4 BUE paresthesias in bilateral C7/C8 distribution improved Paresthesias from ~T8 down Dressing c/d/I with parminder A/P: Katheryn Carranza is a 62 y.o. 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 MRI C/T/L obtained and re-demonstrates C6-7 stenosis secondary to thickened ligamentum flavum with T2 signal change in the cord, as well as T12 compression fracture with slightly more height loss andbuckling of posterior cortex without compression of spinal cord, as well as same L5/S1 disc. Now s/p C4-T2 PSIF, C5-7 laminectomies. Recovering well. Will continue with mobilization with PTOT and pain control. Will keep MANAN for now given output -Neuro checks: q4h -Imaging: postop XR done -Pain control -goal SBP < 160 -Diet: Regular diet. -RBOs -DVT prophylaxis: SCDs -SQH POD1 -activity as tolerated. -Monitor MANAN output -PT/OT/ELECTRICAL EQUIPMENT TESTER : } -DISPOSITION: pending course -FULL CODE Please page [phone] with questions/concerns for in-house NSGY patients IMAGING: Results for orders placed or performed during the hospital encounter of 11/30/22 CT Head & Cervical Spine wo Contrast (Generic) (Exam End: 11/30/2022 9:12 PM) Impression 1. No acute intracranial hemorrhage or calvarial fracture. 2. No acute fracture or traumatic malalignment of the cervical spine. 3. Multilevel cervical spondylosis, with chronic severe central canal narrowing at C6-C7, related to focal ligamentum flavum calcification. Thank you for letting us participate in the care of this patient. If you are a health care provider and have any questions regarding this report, please contact the number below. For patients who have questions please contact the health animal care giver that requested your imaging first. Electronically signed by: Elizabeth Fishman MD, [facility] ([phone]), at 11/30/2022 9:[address] Thoracic Spine wo Contrast (Generic) (Exam End: 12/01/2022 12:14 AM) Impression 1. Acute on chronic T12 compression fracture, with interval increase of associated height loss, now approximately 75%. Unchanged mild retropulsion of the posterior-superior fracture fragments with resulting at least mild central canal stenosis. 2. No acute fracture or traumatic malalignment of the lumbar spine. Thank you for letting us participate in the care of this patient. If you are a health care provider and have any questions regarding this report, please contact the number below. For patients who have questions please contact the health animal care giver that requested your imaging first. Electronically signed by: Elizabeth Fishman MD, [facility] ([phone]), at 12/01/2022 12:[address] Lumbar Spine wo Contrast (Generic) (Exam End: 12/01/2022 12:14 AM) Impression 1. Acute on chronic T12 compression fracture, with interval increase of associated height loss, now approximately 75%. Unchanged mild retropulsion of the posterior-superior fracture fragments with resulting at least mild central canal stenosis. 2. No acute fracture or traumatic malalignment of the lumbar spine. Thank you for letting us participate in the care of this patient. If you are a health care provider and have any questions regarding this report, please contact the number below. For patients who have questions please contact the health animal care giver that requested your imaging first. Electronically signed by: Elizabeth Fishman MD, [facility] ([phone]), at 12/01/2022 12:53 AM MRI Cervical Spine wo Contrast (Generic) (Exam End: 12/01/2022 8:21 AM) Impression 1. Severe canal stenosis at C6 and C6-7 due to bulky mineralization along the posterior thecal sac. There is associated cord pressure and and signal abnormality. 2. Moderate to severe canal stenosis at C4-5 and moderate canal stenosis at C3-C4. 3. Unhealed compression fracture at T12 with mild retropulsion contributing to mild to moderate canal narrowing, mass effect on ventral nerve roots and subtle left ventral cord deformation. 4. Left paracentral disc protrusion at L5-S1 which may irritate the left S1 nerve roots. 5. No evidence for recent/unhealed fracture in the cervical or lumbar spine. 6. Subtle edema and sacrum, incompletely evaluated. Cannot exclude unhealed sacral insufficiency fractures. Thank you for letting us participate in the care of this patient. If you are a health care provider and have any questions regarding this report, please contact the number below. For patients who have questions please contact the health animal care giver that requested your imaging first. Electronically signed by: Funmilayo Marrero [facility] ([phone]), at 12/01/2022 9:27 AM MRI Thoracic Spine wo Contrast (Generic) (Exam End: 12/01/2022 8:21 AM) Impression 1. Severe canal stenosis at C6 and C6-7 due to bulky mineralization along the posterior thecal sac. There is associated cord pressure and and signal abnormality. 2. Moderate to severe canal stenosis at C4-5 and moderate canal stenosis at C3-C4. 3. Unhealed compression fracture at T12 with mild retropulsion contributing to mild to moderate canal narrowing, mass effect on ventral nerve roots and subtle left ventral cord deformation. 4. Left paracentral disc protrusion at L5-S1 which may irritate the left S1 nerve roots. 5. No evidence for recent/unhealed fracture in the cervical or lumbar spine. 6. Subtle edema and sacrum, incompletely evaluated. Cannot exclude unhealed sacral insufficiency fractures. Thank you for letting us participate in the care of this patient. If you are a health care provider and have any questions regarding this report, please contact the number below. For patients who have questions please contact the health animal care giver that requested your imaging first. Electronically signed by: Funmilayo Marrero [facility] ([phone]), at 12/01/2022 9:27 AM MRI Lumbar Spine wo Contrast (Generic) (Exam End: 12/01/2022 8:21 AM) Impression 1. Severe canal stenosis at C6 and C6-7 due to bulky mineralization along the posterior thecal sac. There is associated cord pressure and and signal abnormality. 2. Moderate to severe canal stenosis at C4-5 and moderate canal stenosis at C3-C4. 3. Unhealed compression fracture at T12 with mild retropulsion contributing to mild to moderate canal narrowing, mass effect on ventral nerve roots and subtle left ventral cord deformation. 4. Left paracentral disc protrusion at L5-S1 which may irritate the left S1 nerve roots. 5. No evidence for recent/unhealed fracture in the cervical or lumbar spine. 6. Subtle edema and sacrum, incompletely evaluated. Cannot exclude unhealed sacral insufficiency fractures. Thank you for letting us participate in the care of this patient. If you are a health care provider and have any questions regarding this report, please contact the number below. For patients who have questions please contact the health animal care giver that requested your imaging first. Electronically signed by: Funmilayo Marrero [facility] ([phone]), at 12/01/2022 9:27 AM XR Chest PA & Lateral (Generic) (Exam End: 12/01/2022 11:48 AM) Impression No acute findings. Thank you for letting us participate in the care of this patient. If you are a health care provider and have any questions regarding this report, please contact the number below. For patients who have questions please contact the health animal care giver that requested your imaging first. Electronically signed by: SHYANN CANTU MD, [facility] ([phone]), at 12/01/2022 12:06 PM XR Cervical Spine 2 or 3 Views (Exam End: 12/03/2022 10:10 AM) Impression Incomplete evaluation of the fusion hardware due to patient body habitus. Consider repeat exam or CT. Thank you for letting us participate in the care of this patient. If you are a health care provider and have any questions regarding this report, please contact the number below. For patients who have questions please contact the health animal care giver that requested your imaging first. Electronically signed by: SHYANN CANTU MD, [facility] ([phone]), at 12/03/2022 4:43 PM MEDICATIONS: Scheduled Meds: Continuous Infusions: PRN Meds: Vitals: Temp: [36.6 ??C (97.9 ??F)-36.9 ??C (98.4 ??F)] Heart Rate: -- Resp: [16-18] BP: (152-156)/(90-93) SpO2: [93 %-95 %] Heart Rate from SpO2: [80 bpm-92 bpm] BMI: Weight: 104.3 kg (230 lb) (11/30/22 194) BMI (Calculated): 37.69 BMI Classification: Obese I/O: I/O last 3 completed shifts: In: 3683.3 [P.O.:1650; I.V.:3.3] Out: 6320 [Urine:5745; Other:375; Blood:200] LABS: Recent Labs 12/03/22 0836 12/02/22 0659 WBC 11.2* 7.4 HGB 12.1 12.7 PLATELET 266 243 Recent Labs 12/03/22 0836 12/02/22 0659 NA 139 138 K 4.0 4.2 CL 102 100 CO2 24 27 BUN 6* 8 CREATININE 0.62* 0.73 Recent Labs 12/01/22 1555 PT 11.2 INR 1.0 Active Hospital Problems Diagnosis Cervical myelopathy Resolved Hospital Problems No resolved problems to display. Active Non-Hospital Problems Diagnosis Serous adenofibroma of left ovary Moderate opioid use disorder Thoracic compression fracture, sequela Herniation of lumbar intervertebral disc with radiculopathy Adnexal mass Primary osteoarthritis of right knee Carpal tunnel syndrome, bilateral Trigger thumb of left hand Knee pain, bilateral Osteoarthritis of patellofemoral joint Cervical spondylosis without myelopathy Cervical disc displacement Cervical radiculitis Occipital neuralgia Neck pain on left side Breast hypertrophy Jackie Pagan MD 12/04/2022 * Lois Colby RN - 12/04/2022 5:16 AM EDT OUTCOME EVALUATION NOTE: OUTCOME SUMMARY: Pt is A&Ox4, VSS on RA, endorses pain from back medicated with PRN meds (SEE MAR) with fair outcome. Pt was restless and frustrated because purse and belongings were searched after finding an unidentified medication on her bed. Upon searching her belongings couple of controlled and other meds were found, meds were taken and kept in pt bin. BS x2, peed after cueing, external cathter overnight;good UOP. Willl continue to monitor. PLAN MOVING FORWARD: Q4 ViS/NC Pain Management MANAN drain D/C planning INDIVIDUALIZED FALL PREVENTION INTERVENTIONS: Patient-specific fall risk factors per assessment: previous fall, generalized weakness, lines and wires Assistance: 2 assist, FWW, gait belt, Stand & Pivot Supervision: Hands on Surveillance: Bed locked in low position, call lange within reach, purposeful hourly rounding, clutter free environment, bed/chair alarm on, family at bedside Patient-specific fall prevention interventions for sensory deficits provided: Yes CPG GOAL OUTCOME EVALUATION: Continue care plan as documented. * Shahriar Patrick RN - 12/03/2022 6:42 PM EDT OUTCOME EVALUATION NOTE: OUTCOME SUMMARY: Upon arrival patient is alert and oriented x4, VSS, afebrile. Patient reports pain improving. MANAN emptied and output recorded. Relying on 2 person assist for any movement/ positioning so PT/ OT consulted. Eating 100 percent of meals and drinking large amounts of diet pepsi. Fournier removed at 1600, purewick placed. Pt has not voided yet. PLAN MOVING FORWARD: Q4 hr Neuro Check Q4 hr Vitals Pain Management Drain Care INDIVIDUALIZED FALL PREVENTION INTERVENTIONS: Patient-specific fall risk factors per assessment: previous fall, generalized weakness, lines and wires Assistance: 2assist, FWW Supervision: Hands on Surveillance: Bed locked in low position, call lange within reach, purposeful hourly rounding, bed alarm on, clutter free room, family at bedside Patient-specific fall prevention interventions for sensory deficits provided: Yes CPG GOAL OUTCOME EVALUATION: Continue care plan as documented. * Caitlin Humphrey MSW - 12/03/2022 2:21 PM EDT NET WPF DEVELOPER received a consult to support patient who has no health insurance. NET WPF DEVELOPER met with patient who states she was at [facility] in July 2022 and [facility] helped her to apply for [place] Medicaid, but she was over-incomed and denied. She now has $50k+ in medical bills at [facility] in addition to medical bills from [facility]. She would like to apply for [place] Medicaid again doing a ???spenddown?? and complete a [facility] Financial Assistance Application to help with these past due bills. A referral has been sent to Jorgito Membreno to follow up with this need/request. RN Ashley DONOHUE and CM Managers informed. * Jackie Pagan MD - 12/03/2022 9:28 AM EDT NEUROSURGERY PROGRESS NOTE PLEASE PAGE [phone] WITH QUESTIONS ID: Katheryn Carranza is a 62 y.o. female with CSM who presented with worsening weakness and urinary incontinence since a fall 4 days prior to presentation. HD# 2 POD # Day of Surgery 12/02/22 Dr. Mirandat: C4-T2 PSIF, C5-7 laminectomies INTERVAL HX/ROS: -POC -Subjective improvement in LUE hand strength and BLUE sensation -Having neck/trapezius pain but laying in bed in no obvious distress, had salad for dinner -Fournier in place EXAM: GEN:Middle aged woman, resting comfortably in bed watching television NEURO: Speech fluent and appropriate. Face symmetric. Edentulous. MOTOR: RUE:5/5 LUE:5/5 RLE: 5/5 LLE: 3/5 HF, 5KE, 4+ DF, 4+ PF SILT x4 BUE paresthesias in bilateral C7/C8 distribution improved Paresthesias from ~T8 down A/P: Katheryn Carranza is a 62 y.o. 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 MRI C/T/L obtained and re-demonstrates C6-7 stenosis secondary to thickened ligamentum flavum with T2 signal change in the cord, as well as T12 compression fracture with slightly more height loss andbuckling of posterior cortex without compression of spinal cord, as well as same L5/S1 disc. Now s/p C4-T2 PSIF, C5-7 laminectomies. Recovering well. Will remove fournier today and mobilize, continue pain control. -Neuro checks: q4h -Imaging: postop XR pending -Pain control -goal SBP < 160 -Diet: Regular diet. -RBOs -DVT prophylaxis: SCDs -SQH POD1 -activity as tolerated. -Monitor MANAN output -Remove fournier, DTV -PT/OT/ELECTRICAL EQUIPMENT TESTER : } -DISPOSITION: pending course -FULL CODE Please page [phone] with questions/concerns for in-house NSGY patients IMAGING: Results for orders placed or performed during the hospital encounter of 11/30/22 CT Head & Cervical Spine wo Contrast (Generic) (Exam End: 11/30/2022 9:12 PM) Impression 1. No acute intracranial hemorrhage or calvarial fracture. 2. No acute fracture or traumatic malalignment of the cervical spine. 3. Multilevel cervical spondylosis, with chronic severe central canal narrowing at C6-C7, related to focal ligamentum flavum calcification. Thank you for letting us participate in the care of this patient. If you are a health care provider and have any questions regarding this report, please contact the number below. For patients who have questions please contact the health animal care giver that requested your imaging first. Electronically signed by: Elizabeth Fishman MD, [facility] ([phone]), at 11/30/2022 9:[address] Thoracic Spine wo Contrast (Generic) (Exam End: 12/01/2022 12:14 AM) Impression 1. Acute on chronic T12 compression fracture, with interval increase of associated height loss, now approximately 75%. Unchanged mild retropulsion of the posterior-superior fracture fragments with resulting at least mild central canal stenosis. 2. No acute fracture or traumatic malalignment of the lumbar spine. Thank you for letting us participate in the care of this patient. If you are a health care provider and have any questions regarding this report, please contact the number below. For patients who have questions please contact the health animal care giver that requested your imaging first. Electronically signed by: Elizabeth Fishman MD, [facility] ([phone]), at 12/01/2022 12:[address] Lumbar Spine wo Contrast (Generic) (Exam End: 12/01/2022 12:14 AM) Impression 1. Acute on chronic T12 compression fracture, with interval increase of associated height loss, now approximately 75%. Unchanged mild retropulsion of the posterior-superior fracture fragments with resulting at least mild central canal stenosis. 2. No acute fracture or traumatic malalignment of the lumbar spine. Thank you for letting us participate in the care of this patient. If you are a health care provider and have any questions regarding this report, please contact the number below. For patients who have questions please contact the health animal care giver that requested your imaging first. Electronically signed by: Elizabeth Fishman MD, [facility] ([phone]), at 12/01/2022 12:53 AM MRI Cervical Spine wo Contrast (Generic) (Exam End: 12/01/2022 8:21 AM) Impression 1. Severe canal stenosis at C6 and C6-7 due to bulky mineralization along the posterior thecal sac. There is associated cord pressure and and signal abnormality. 2. Moderate to severe canal stenosis at C4-5 and moderate canal stenosis at C3-C4. 3. Unhealed compression fracture at T12 with mild retropulsion contributing to mild to moderate canal narrowing, mass effect on ventral nerve roots and subtle left ventral cord deformation. 4. Left paracentral disc protrusion at L5-S1 which may irritate the left S1 nerve roots. 5. No evidence for recent/unhealed fracture in the cervical or lumbar spine. 6. Subtle edema and sacrum, incompletely evaluated. Cannot exclude unhealed sacral insufficiency fractures. Thank you for letting us participate in the care of this patient. If you are a health care provider and have any questions regarding this report, please contact the number below. For patients who have questions please contact the health animal care giver that requested your imaging first. Electronically signed by: Funmilayo Marrero [facility] ([phone]), at 12/01/2022 9:27 AM MRI Thoracic Spine wo Contrast (Generic) (Exam End: 12/01/2022 8:21 AM) Impression 1. Severe canal stenosis at C6 and C6-7 due to bulky mineralization along the posterior thecal sac. There is associated cord pressure and and signal abnormality. 2. Moderate to severe canal stenosis at C4-5 and moderate canal stenosis at C3-C4. 3. Unhealed compression fracture at T12 with mild retropulsion contributing to mild to moderate canal narrowing, mass effect on ventral nerve roots and subtle left ventral cord deformation. 4. Left paracentral disc protrusion at L5-S1 which may irritate the left S1 nerve roots. 5. No evidence for recent/unhealed fracture in the cervical or lumbar spine. 6. Subtle edema and sacrum, incompletely evaluated. Cannot exclude unhealed sacral insufficiency fractures. Thank you for letting us participate in the care of this patient. If you are a health care provider and have any questions regarding this report, please contact the number below. For patients who have questions please contact the health animal care giver that requested your imaging first. Electronically signed by: Funmilayo Marrero [facility] ([phone]), at 12/01/2022 9:27 AM MRI Lumbar Spine wo Contrast (Generic) (Exam End: 12/01/2022 8:21 AM) Impression 1. Severe canal stenosis at C6 and C6-7 due to bulky mineralization along the posterior thecal sac. There is associated cord pressure and and signal abnormality. 2. Moderate to severe canal stenosis at C4-5 and moderate canal stenosis at C3-C4. 3. Unhealed compression fracture at T12 with mild retropulsion contributing to mild to moderate canal narrowing, mass effect on ventral nerve roots and subtle left ventral cord deformation. 4. Left paracentral disc protrusion at L5-S1 which may irritate the left S1 nerve roots. 5. No evidence for recent/unhealed fracture in the cervical or lumbar spine. 6. Subtle edema and sacrum, incompletely evaluated. Cannot exclude unhealed sacral insufficiency fractures. Thank you for letting us participate in the care of this patient. If you are a health care provider and have any questions regarding this report, please contact the number below. For patients who have questions please contact the health animal care giver that requested your imaging first. Electronically signed by: Funmilayo Marrero [facility] ([phone]), at 12/01/2022 9:27 AM XR Chest PA & Lateral (Generic) (Exam End: 12/01/2022 11:48 AM) Impression No acute findings. Thank you for letting us participate in the care of this patient. If you are a health care provider and have any questions regarding this report, please contact the number below. For patients who have questions please contact the health animal care giver that requested your imaging first. Electronically signed by: SHYANN CANTU MD, [facility] ([phone]), at 12/01/2022 12:06 PM MEDICATIONS: Scheduled Meds: Continuous Infusions: PRN Meds: Vitals: Temp: [36.2 ??C (97.2 ??F)-36.9 ??C (98.4 ??F)] Heart Rate: [85-89] Resp: [12-23] BP: (107-167)/(68-100) SpO2: [75 %-100 %] Heart Rate from SpO2: [68 bpm-91 bpm] BMI: Weight: 104.3 kg (230 lb) (11/30/22 1944) BMI (Calculated): 37.69 BMI Classification: Obese I/O: I/O last 3 completed shifts: In: 3703.3 [P.O.:1670; I.V.:3.3] Out: 2415 [Urine:2120; Other:95; Blood:200] LABS: Recent Labs 12/02/2259 11/30/222004 WBC 7.4 8.7 HGB 12.7 13.2 PLATELET 243 260 Recent Labs 12/02/2259 11/30/222004 NA 138 133* K 4.2 4.3 CL 100 99 CO2 27 20* BUN 8 8 CREATININE 0.73 0.62* Recent Labs 12/01/22 1555 PT 11.2 INR 1.0 Active Hospital Problems Diagnosis Cervical myelopathy Resolved Hospital Problems No resolved problems to display. Active Non-Hospital Problems Diagnosis Serous adenofibroma of left ovary Moderate opioid use disorder Thoracic compression fracture, sequela Herniation of lumbar intervertebral disc with radiculopathy Adnexal mass Primary osteoarthritis of right knee Carpal tunnel syndrome, bilateral Trigger thumb of left hand Knee pain, bilateral Osteoarthritis of patellofemoral joint Cervical spondylosis without myelopathy Cervical disc displacement Cervical radiculitis Occipital neuralgia Neck pain on left side Breast hypertrophy Jackie Pagan MD 12/02/2022 * Jackie Pagan MD - 12/02/2022 9:58 PM EDT NEUROSURGERY PROGRESS NOTE PLEASE PAGE [phone] WITH QUESTIONS ID: Katheryn Carranza is a 62 y.o. female with CSM who presented with worsening weakness and urinary incontinence since a fall 4 days prior to presentation. HD# 2 POD # Day of Surgery 12/02/22 Dr. Zurita: C4-T2 PSIF, C5-7 laminectomies INTERVAL HX/ROS: -POC -Subjective improvement in LUE hand strength and BLUE sensation -Having neck/trapezius pain but laying in bed in no obvious distress, had salad for dinner -Fournier in place EXAM: GEN:Middle aged woman, resting comfortably in bed watching television NEURO: Speech fluent and appropriate. Face symmetric. Edentulous. MOTOR: RUE:5/5 LUE:5/5 RLE: 5/5 LLE: 3/5 HF, 5KE, 4+ DF, 4+ PF SILT x4 BUE paresthesias in bilateral C7/C8 distribution Paresthesias from ~T8 down No Yates, no clonus A/P: Katheryn Carranza is a 62 y.o. 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 MRI C/T/L obtained and re-demonstrates C6-7 stenosis secondary to thickened ligamentum flavum with T2 signal change in the cord, as well as T12 compression fracture with slightly more height loss andbuckling of posterior cortex without compression of spinal cord, as well as same L5/S1 disc. Now s/p C4-T2 PSIF, C5-7 laminectomies. Recovering well. -Neuro checks: q4h -Imaging: postop XR pending -Pain control -goal SBP < 160 -Diet: Regular diet. -RBOs -DVT prophylaxis: SCDs -hold anticoagulation and antiplatelet -activity as tolerated. -Monitor MANAN output -PT/OT/ELECTRICAL EQUIPMENT TESTER : } -DISPOSITION: pending course -FULL CODE Please page [phone] with questions/concerns for in-house NSGY patients IMAGING: Results for orders placed or performed during the hospital encounter of 11/30/22 CT Head & Cervical Spine wo Contrast (Generic) (Exam End: 11/30/2022 9:12 PM) Impression 1. No acute intracranial hemorrhage or calvarial fracture. 2. No acute fracture or traumatic malalignment of the cervical spine. 3. Multilevel cervical spondylosis, with chronic severe central canal narrowing at C6-C7, related to focal ligamentum flavum calcification. Thank you for letting us participate in the care of this patient. If you are a health care provider and have any questions regarding this report, please contact the number below. For patients who have questions please contact the health animal care giver that requested your imaging first. Electronically signed by: Elizabeth Fishman MD, [facility] ([phone]), at 11/30/2022 9:[address] Thoracic Spine wo Contrast (Generic) (Exam End: 12/01/2022 12:14 AM) Impression 1. Acute on chronic T12 compression fracture, with interval increase of associated height loss, now approximately 75%. Unchanged mild retropulsion of the posterior-superior fracture fragments with resulting at least mild central canal stenosis. 2. No acute fracture or traumatic malalignment of the lumbar spine. Thank you for letting us participate in the care of this patient. If you are a health care provider and have any questions regarding this report, please contact the number below. For patients who have questions please contact the health animal care giver that requested your imaging first. Electronically signed by: Elizabeth Fishman MD, [facility] ([phone]), at 12/01/2022 12:[address] Lumbar Spine wo Contrast (Generic) (Exam End: 12/01/2022 12:14 AM) Impression 1. Acute on chronic T12 compression fracture, with interval increase of associated height loss, now approximately 75%. Unchanged mild retropulsion of the posterior-superior fracture fragments with resulting at least mild central canal stenosis. 2. No acute fracture or traumatic malalignment of the lumbar spine. Thank you for letting us participate in the care of this patient. If you are a health care provider and have any questions regarding this report, please contact the number below. For patients who have questions please contact the health animal care giver that requested your imaging first. Electronically signed by: Elizabeth Fishman MD, [facility] ([phone]), at 12/01/2022 12:53 AM MRI Cervical Spine wo Contrast (Generic) (Exam End: 12/01/2022 8:21 AM) Impression 1. Severe canal stenosis at C6 and C6-7 due to bulky mineralization along the posterior thecal sac. There is associated cord pressure and and signal abnormality. 2. Moderate to severe canal stenosis at C4-5 and moderate canal stenosis at C3-C4. 3. Unhealed compression fracture at T12 with mild retropulsion contributing to mild to moderate canal narrowing, mass effect on ventral nerve roots and subtle left ventral cord deformation. 4. Left paracentral disc protrusion at L5-S1 which may irritate the left S1 nerve roots. 5. No evidence for recent/unhealed fracture in the cervical or lumbar spine. 6. Subtle edema and sacrum, incompletely evaluated. Cannot exclude unhealed sacral insufficiency fractures. Thank you for letting us participate in the care of this patient. If you are a health care provider and have any questions regarding this report, please contact the number below. For patients who have questions please contact the health animal care giver that requested your imaging first. Electronically signed by: Funmilayo Marrero [facility] ([phone]), at 12/01/2022 9:27 AM MRI Thoracic Spine wo Contrast (Generic) (Exam End: 12/01/2022 8:21 AM) Impression 1. Severe canal stenosis at C6 and C6-7 due to bulky mineralization along the posterior thecal sac. There is associated cord pressure and and signal abnormality. 2. Moderate to severe canal stenosis at C4-5 and moderate canal stenosis at C3-C4. 3. Unhealed compression fracture at T12 with mild retropulsion contributing to mild to moderate canal narrowing, mass effect on ventral nerve roots and subtle left ventral cord deformation. 4. Left paracentral disc protrusion at L5-S1 which may irritate the left S1 nerve roots. 5. No evidence for recent/unhealed fracture in the cervical or lumbar spine. 6. Subtle edema and sacrum, incompletely evaluated. Cannot exclude unhealed sacral insufficiency fractures. Thank you for letting us participate in the care of this patient. If you are a health care provider and have any questions regarding this report, please contact the number below. For patients who have questions please contact the health animal care giver that requested your imaging first. Electronically signed by: Funmilayo Marrero [facility] ([phone]), at 12/01/2022 9:27 AM MRI Lumbar Spine wo Contrast (Generic) (Exam End: 12/01/2022 8:21 AM) Impression 1. Severe canal stenosis at C6 and C6-7 due to bulky mineralization along the posterior thecal sac. There is associated cord pressure and and signal abnormality. 2. Moderate to severe canal stenosis at C4-5 and moderate canal stenosis at C3-C4. 3. Unhealed compression fracture at T12 with mild retropulsion contributing to mild to moderate canal narrowing, mass effect on ventral nerve roots and subtle left ventral cord deformation. 4. Left paracentral disc protrusion at L5-S1 which may irritate the left S1 nerve roots. 5. No evidence for recent/unhealed fracture in the cervical or lumbar spine. 6. Subtle edema and sacrum, incompletely evaluated. Cannot exclude unhealed sacral insufficiency fractures. Thank you for letting us participate in the care of this patient. If you are a health care provider and have any questions regarding this report, please contact the number below. For patients who have questions please contact the health animal care giver that requested your imaging first. Electronically signed by: Funmilayo Marrero [facility] ([phone]), at 12/01/2022 9:27 AM XR Chest PA & Lateral (Generic) (Exam End: 12/01/2022 11:48 AM) Impression No acute findings. Thank you for letting us participate in the care of this patient. If you are a health care provider and have any questions regarding this report, please contact the number below. For patients who have questions please contact the health animal care giver that requested your imaging first. Electronically signed by: SHYANN CANTU MD, [facility] ([phone]), at 12/01/2022 12:06 PM MEDICATIONS: Scheduled Meds: Continuous Infusions: PRN Meds: Vitals: Temp: [36.2 ??C (97.2 ??F)-36.9 ??C (98.4 ??F)] Heart Rate: [85-89] Resp: [12-23] BP: (107-167)/(68-100) SpO2: [75 %-100 %] Heart Rate from SpO2: [68 bpm-89 bpm] BMI: Weight: 104.3 kg (230 lb) (11/30/22 194) BMI (Calculated): 37.69 BMI Classification: Obese I/O: I/O last 3 completed shifts: In: 3703.3 [P.O.:1670; I.V.:2033.3] Out: 2415 [Urine:2120; Other:95; Blood:200] LABS: Recent Labs 12/02/22 0659 11/30/222004 WBC 7.4 8.7 HGB 12.7 13.2 PLATELET 243 260 Recent Labs 12/02/22 0659 11/30/222004 NA 138 133* K 4.2 4.3 CL 100 99 CO2 27 20* BUN 8 8 CREATININE 0.73 0.62* Recent Labs 12/01/22 1555 PT 11.2 INR 1.0 Active Hospital Problems Diagnosis Cervical myelopathy Resolved Hospital Problems No resolved problems to display. Active Non-Hospital Problems Diagnosis Serous adenofibroma of left ovary Moderate opioid use disorder Thoracic compression fracture, sequela Herniation of lumbar intervertebral disc with radiculopathy Adnexal mass Primary osteoarthritis of right knee Carpal tunnel syndrome, bilateral Trigger thumb of left hand Knee pain, bilateral Osteoarthritis of patellofemoral joint Cervical spondylosis without myelopathy Cervical disc displacement Cervical radiculitis Occipital neuralgia Neck pain on left side Breast hypertrophy Jackie Pagan MD 12/02/2022 * Leidy Weaver RN - 12/02/2022 5:11 PM EDT 1658: Pt arrived to PACU from OR. Monitor applied, alarms set and audible. Airway maintained. 1729: Anesthesia bedside, administered Precedex. Multiple PRN's for pain control. 1899: Neuro intact, bedside. Pt appears more comfortably, conversant and laughing. Tolerating PO intake. VSS. 1946: Report called to OLIVIA Messina. * Caitlin Humphrey MSW - 12/02/2022 9:03 AM EDT NET WPF DEVELOPER received a consult to support patient in completing a [place] Advance Directive. Patient already hasan advance directive in place. No referral made. * Amada Booker MD - 12/02/2022 6:33 AM EDT NEUROSURGERY PROGRESS NOTE PLEASE PAGE [phone] WITH QUESTIONS ID: Katheryn Carranza is a 62 y.o. female with CSM who presented with worsening weakness and urinary incontinence since a fall 4 days prior to presentation. HD# 2 POD # Day of Surgery INTERVAL HX/ROS: Neuro stable Seen by Medicine for pre-op risk stratification, recs appreciated NPO for OR today EXAM: GEN:Middle aged woman, sleeping in bed NEURO: Speech fluent and appropriate. MOTOR: RUE:5/5 LUE:5/5 RLE: 5/5 LLE: 2/5 HF, 5KE, 4 DF, 4+ PF SILT x4 BUE paresthesias in bilateral C7/C8 distribution Paresthesias from ~T8 down No Yates, no clonus A/P: Katheryn Carranza is a 62 y.o. 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 MRI C/T/L obtained and re-demonstrates C6-7 stenosis secondary to thickened ligamentum flavum with T2 signal change in the cord, as well as T12 compression fracture with slightly more height loss andbuckling of posterior cortex without compression of spinal cord, as well as same L5/S1 disc. -OR today -Neuro checks: q4h -Imaging: complete -Medicine for operative risk stratification -Pain control -goal SBP < 150 -Diet: NPO diet (Give Meds). -RBOs -DVT prophylaxis: SCDs -hold anticoagulation and antiplatelet -activity as tolerated. -PT/OT/ELECTRICAL EQUIPMENT TESTER : } -DISPOSITION: pending course -FULL CODE Please page [phone] with questions/concerns for in-house NSGY patients IMAGING: Results for orders placed or performed during the hospital encounter of 11/30/22 CT Head & Cervical Spine wo Contrast (Generic) (Exam End: 11/30/2022 9:12 PM) Impression 1. No acute intracranial hemorrhage or calvarial fracture. 2. No acute fracture or traumatic malalignment of the cervical spine. 3. Multilevel cervical spondylosis, with chronic severe central canal narrowing at C6-C7, related to focal ligamentum flavum calcification. Thank you for letting us participate in the care of this patient. If you are a health care provider and have any questions regarding this report, please contact the number below. For patients who have questions please contact the health animal care giver that requested your imaging first. Electronically signed by: Elizabeth Fishman MD, [facility] ([phone]), at 11/30/2022 9:[address] Thoracic Spine wo Contrast (Generic) (Exam End: 12/01/2022 12:14 AM) Impression 1. Acute on chronic T12 compression fracture, with interval increase of associated height loss, now approximately 75%. Unchanged mild retropulsion of the posterior-superior fracture fragments with resulting at least mild central canal stenosis. 2. No acute fracture or traumatic malalignment of the lumbar spine. Thank you for letting us participate in the care of this patient. If you are a health care provider and have any questions regarding this report, please contact the number below. For patients who have questions please contact the health animal care giver that requested your imaging first. Electronically signed by: Elizabeth Fishman MD, [facility] ([phone]), at 12/01/2022 12:[address] Lumbar Spine wo Contrast (Generic) (Exam End: 12/01/2022 12:14 AM) Impression 1. Acute on chronic T12 compression fracture, with interval increase of associated height loss, now approximately 75%. Unchanged mild retropulsion of the posterior-superior fracture fragments with resulting at least mild central canal stenosis. 2. No acute fracture or traumatic malalignment of the lumbar spine. Thank you for letting us participate in the care of this patient. If you are a health care provider and have any questions regarding this report, please contact the number below. For patients who have questions please contact the health animal care giver that requested your imaging first. Electronically signed by: Elizabeth Fishman MD, [facility] ([phone]), at 12/01/2022 12:53 AM MRI Cervical Spine wo Contrast (Generic) (Exam End: 12/01/2022 8:21 AM) Impression 1. Severe canal stenosis at C6 and C6-7 due to bulky mineralization along the posterior thecal sac. There is associated cord pressure and and signal abnormality. 2. Moderate to severe canal stenosis at C4-5 and moderate canal stenosis at C3-C4. 3. Unhealed compression fracture at T12 with mild retropulsion contributing to mild to moderate canal narrowing, mass effect on ventral nerve roots and subtle left ventral cord deformation. 4. Left paracentral disc protrusion at L5-S1 which may irritate the left S1 nerve roots. 5. No evidence for recent/unhealed fracture in the cervical or lumbar spine. 6. Subtle edema and sacrum, incompletely evaluated. Cannot exclude unhealed sacral insufficiency fractures. Thank you for letting us participate in the care of this patient. If you are a health care provider and have any questions regarding this report, please contact the number below. For patients who have questions please contact the health animal care giver that requested your imaging first. Electronically signed by: Funmilyao Marrero [facility] ([phone]), at 12/01/2022 9:27 AM MRI Thoracic Spine wo Contrast (Generic) (Exam End: 12/01/2022 8:21 AM) Impression 1. Severe canal stenosis at C6 and C6-7 due to bulky mineralization along the posterior thecal sac. There is associated cord pressure and and signal abnormality. 2. Moderate to severe canal stenosis at C4-5 and moderate canal stenosis at C3-C4. 3. Unhealed compression fracture at T12 with mild retropulsion contributing to mild to moderate canal narrowing, mass effect on ventral nerve roots and subtle left ventral cord deformation. 4. Left paracentral disc protrusion at L5-S1 which may irritate the left S1 nerve roots. 5. No evidence for recent/unhealed fracture in the cervical or lumbar spine. 6. Subtle edema and sacrum, incompletely evaluated. Cannot exclude unhealed sacral insufficiency fractures. Thank you for letting us participate in the care of this patient. If you are a health care provider and have any questions regarding this report, please contact the number below. For patients who have questions please contact the health animal care giver that requested your imaging first. Electronically signed by: Funmilayo Marrero [facility] ([phone]), at 12/01/2022 9:27 AM MRI Lumbar Spine wo Contrast (Generic) (Exam End: 12/01/2022 8:21 AM) Impression 1. Severe canal stenosis at C6 and C6-7 due to bulky mineralization along the posterior thecal sac. There is associated cord pressure and and signal abnormality. 2. Moderate to severe canal stenosis at C4-5 and moderate canal stenosis at C3-C4. 3. Unhealed compression fracture at T12 with mild retropulsion contributing to mild to moderate canal narrowing, mass effect on ventral nerve roots and subtle left ventral cord deformation. 4. Left paracentral disc protrusion at L5-S1 which may irritate the left S1 nerve roots. 5. No evidence for recent/unhealed fracture in the cervical or lumbar spine. 6. Subtle edema and sacrum, incompletely evaluated. Cannot exclude unhealed sacral insufficiency fractures. Thank you for letting us participate in the care of this patient. If you are a health care provider and have any questions regarding this report, please contact the number below. For patients who have questions please contact the health animal care giver that requested your imaging first. Electronically signed by: Funmilayo Marrero [facility] ([phone]), at 12/01/2022 9:27 AM XR Chest PA & Lateral (Generic) (Exam End: 12/01/2022 11:48 AM) Impression No acute findings. Thank you for letting us participate in the care of this patient. If you are a health care provider and have any questions regarding this report, please contact the number below. For patients who have questions please contact the health animal care giver that requested your imaging first. Electronically signed by: SHYANN CANTU MD, [facility] ([phone]), at 12/01/2022 12:06 PM MEDICATIONS: Scheduled Meds: Continuous Infusions: PRN Meds: Vitals: Temp: [36.4 ??C (97.5 ??F)-36.9 ??C (98.4 ??F)] Heart Rate: [73-77] Resp: [16-19] BP: (107-126)/(65-78) SpO2: [75 %-97 %] Heart Rate from SpO2: [66 bpm-82 bpm] BMI: Weight: 104.3 kg (230 lb) (11/30/22 194) BMI (Calculated): 37.69 BMI Classification: Obese I/O: I/O last 3 completed shifts: In: 1670 [P.O.:1670] Out: 950 [Urine:950] LABS: Recent Labs 12/02/22 0659 11/30/222004 WBC 7.4 8.7 HGB 12.7 13.2 PLATELET 243 260 Recent Labs 12/02/22 0659 11/30/222004 NA 138 133* K 4.2 4.3 CL 100 99 CO2 27 20* BUN 8 8 CREATININE 0.73 0.62* Recent Labs 12/01/22 1555 PT 11.2 INR 1.0 Active Hospital Problems Diagnosis Cervical myelopathy Resolved Hospital Problems No resolved problems to display. Active Non-Hospital Problems Diagnosis Serous adenofibroma of left ovary Moderate opioid use disorder Thoracic compression fracture, sequela Herniation of lumbar intervertebral disc with radiculopathy Adnexal mass Primary osteoarthritis of right knee Carpal tunnel syndrome, bilateral Trigger thumb of left hand Knee pain, bilateral Osteoarthritis of patellofemoral joint Cervical spondylosis without myelopathy Cervical disc displacement Cervical radiculitis Occipital neuralgia Neck pain on left side Breast hypertrophy Amada Booker MD 12/02/2022 Associated attestation - Tien Zurita MD - 12/02/2022 12:20 PM EDT I have seen and examined the patient, providing wood components as outlined below. I have reviewed the resident???s above note; my evaluation of the patient is below: Acute worsening of her left sided weakness after a fall 4 days prior to presentation. Imaging again shows severe stenosis at C6-7 due to OLF, as well as apparent worsening of stenosis at C4-5 with limitations from motion artifact. Discussed with patient regarding proceeding urgently with previously planned surgery, with plan to perform fusion from C4-T2 and C4-7 decompression. The risks of: Systemic complications, coma, , stroke, paralysis, spinal cord injury, nerve root injury, C5-Palsy, bleeding, hematoma, weakness, numbness, bowel/bladder incontinence, pseudarthrosis, adjacent segment disease, cervical kyphosis, CSF or spinal fluid leak, poor wound healing, infection, failure to improve, and need to re-operate for any of these reasons, were discussed. Patient acknowledged understanding of the procedure as well as the risks, benefits, and alternatives. All questions were answered to patient's satisfaction, and wishes to proceed with surgery as detailed above. * Lexy Smith RN - 12/01/2022 8:01 PM EDT OUTCOME EVALUATION NOTE: OUTCOME SUMMARY: Patient is AOx4, 3/5 LUE strength; 3/5 LLE strength; 4/5 RUE strength; 3/5 RLE strength, c/o back pain and robaxin and tylenol c codeine given c some effect. Plan for surgery Tuesday. Neurosurgery provider updated patient regarding test results and plans forsurgery. Patient has been using bedside commode c x1 assist, impulsive at times, bed alarm set. PLAN MOVING FORWARD: surgery INDIVIDUALIZED FALL PREVENTION INTERVENTIONS: Patient-specific fall risk factors per assessment: weakness Assistance: 1-2 assist, FWW, Supervision:Hands on Surveillance: Bed locked in low position, call lange within reach, purposeful hourly rounding, clutter free environment, bed/chair alarm on, Patient-specific fall prevention interventions for sensory deficits provided: Yes bed alarm CPG GOAL OUTCOME EVALUATION: Continue care plan as documented. * Lexy Smith RN - 12/01/2022 4:52 PM EDT Provider paged [phone] [place] would like to talk c provider c test results/plans for surgery * Amada Booker MD - 12/01/2022 6:40 AM EDT NEUROSURGERY PROGRESS NOTE PLEASE PAGE [phone] WITH QUESTIONS ID: Katheryn Carranza is a 62 y.o. female with CSM who presented with worsening weakness and urinary incontinence since a fall 4 days prior to presentation. HD# 1 POD # INTERVAL HX/ROS: Pending MRI CSP EXAM: GEN:Middle aged woman, changing into hospital gown with assistance of RN NEURO: Speech fluent and appropriate. MOTOR: RUE:5/5 LUE:5/5 RLE: 5/5 LLE: 3/5 HF, 5KE, 4 DF, 4+ PF SILT x4 BUE paresthesias Paresthesias from ~T8 down No Yates, no clonus Refused rectal exam d/t urinary urgency/desire to void A/P: Katheryn Carranza is a 62 y.o. 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 MRI C/T/L obtained and re-demonstrates C6-7 stenosis secondary to thickened ligamentum flavum with T2 signal change in the cord, as well as T12 compression fracture with slightly more height loss andbuckling of posterior cortex without compression of spinal cord, as well as same L5/S1 disc. Given progression of symptoms will initiate OR planning and have patient be seen by Medicine for risk stratification. -Neuro checks: q4h -Imaging: complete -Medicine for operative risk stratification -Pain control -goal SBP < 150 -Diet: Regular diet. -RBOs -DVT prophylaxis: SCDs -hold anticoagulation and antiplatelet -activity as tolerated. -PT/OT/ELECTRICAL EQUIPMENT TESTER : } -DISPOSITION: pending course -FULL CODE Please page [phone] with questions/concerns for in-house NSGY patients IMAGING: Results for orders placed or performed during the hospital encounter of 11/30/22 CT Head & Cervical Spine wo Contrast (Generic) (Exam End: 11/30/2022 9:12 PM) Impression 1. No acute intracranial hemorrhage or calvarial fracture. 2. No acute fracture or traumatic malalignment of the cervical spine. 3. Multilevel cervical spondylosis, with chronic severe central canal narrowing at C6-C7, related to focal ligamentum flavum calcification. Thank you for letting us participate in the care of this patient. If you are a health care provider and have any questions regarding this report, please contact the number below. For patients who have questions please contact the health animal care giver that requested your imaging first. Electronically signed by: Elizabeth Fishman MD, [facility] ([phone]), at 11/30/2022 9:[address] Thoracic Spine wo Contrast (Generic) (Exam End: 12/01/2022 12:14 AM) Impression 1. Acute on chronic T12 compression fracture, with interval increase of associated height loss, now approximately 75%. Unchanged mild retropulsion of the posterior-superior fracture fragments with resulting at least mild central canal stenosis. 2. No acute fracture or traumatic malalignment of the lumbar spine. Thank you for letting us participate in the care of this patient. If you are a health care provider and have any questions regarding this report, please contact the number below. For patients who have questions please contact the health animal care giver that requested your imaging first. Electronically signed by: Elizabeth Fishman MD, [facility] ([phone]), at 12/01/2022 12:[address] Lumbar Spine wo Contrast (Generic) (Exam End: 12/01/2022 12:14 AM) Impression 1. Acute on chronic T12 compression fracture, with interval increase of associated height loss, now approximately 75%. Unchanged mild retropulsion of the posterior-superior fracture fragments with resulting at least mild central canal stenosis. 2. No acute fracture or traumatic malalignment of the lumbar spine. Thank you for letting us participate in the care of this patient. If you are a health care provider and have any questions regarding this report, please contact the number below. For patients who have questions please contact the health animal care giver that requested your imaging first. Electronically signed by: Elizabeth Fishman MD, [facility] ([phone]), at 12/01/2022 12:53 AM MRI Cervical Spine wo Contrast (Generic) (Exam End: 12/01/2022 8:21 AM) Impression 1. Severe canal stenosis at C6 and C6-7 due to bulky mineralization along the posterior thecal sac. There is associated cord pressure and and signal abnormality. 2. Moderate to severe canal stenosis at C4-5 and moderate canal stenosis at C3-C4. 3. Unhealed compression fracture at T12 with mild retropulsion contributing to mild to moderate canal narrowing, mass effect on ventral nerve roots and subtle left ventral cord deformation. 4. Left paracentral disc protrusion at L5-S1 which may irritate the left S1 nerve roots. 5. No evidence for recent/unhealed fracture in the cervical or lumbar spine. 6. Subtle edema and sacrum, incompletely evaluated. Cannot exclude unhealed sacral insufficiency fractures. Thank you for letting us participate in the care of this patient. If you are a health care provider and have any questions regarding this report, please contact the number below. For patients who have questions please contact the health animal care giver that requested your imaging first. Electronically signed by: Funmilayo Marrero [facility] ([phone]), at 12/01/2022 9:27 AM MRI Thoracic Spine wo Contrast (Generic) (Exam End: 12/01/2022 8:21 AM) Impression 1. Severe canal stenosis at C6 and C6-7 due to bulky mineralization along the posterior thecal sac. There is associated cord pressure and and signal abnormality. 2. Moderate to severe canal stenosis at C4-5 and moderate canal stenosis at C3-C4. 3. Unhealed compression fracture at T12 with mild retropulsion contributing to mild to moderate canal narrowing, mass effect on ventral nerve roots and subtle left ventral cord deformation. 4. Left paracentral disc protrusion at L5-S1 which may irritate the left S1 nerve roots. 5. No evidence for recent/unhealed fracture in the cervical or lumbar spine. 6. Subtle edema and sacrum, incompletely evaluated. Cannot exclude unhealed sacral insufficiency fractures. Thank you for letting us participate in the care of this patient. If you are a health care provider and have any questions regarding this report, please contact the number below. For patients who have questions please contact the health animal care giver that requested your imaging first. Electronically signed by: Funmilayo Marrero [facility] ([phone]), at 12/01/2022 9:27 AM MRI Lumbar Spine wo Contrast (Generic) (Exam End: 12/01/2022 8:21 AM) Impression 1. Severe canal stenosis at C6 and C6-7 due to bulky mineralization along the posterior thecal sac. There is associated cord pressure and and signal abnormality. 2. Moderate to severe canal stenosis at C4-5 and moderate canal stenosis at C3-C4. 3. Unhealed compression fracture at T12 with mild retropulsion contributing to mild to moderate canal narrowing, mass effect on ventral nerve roots and subtle left ventral cord deformation. 4. Left paracentral disc protrusion at L5-S1 which may irritate the left S1 nerve roots. 5. No evidence for recent/unhealed fracture in the cervical or lumbar spine. 6. Subtle edema and sacrum, incompletely evaluated. Cannot exclude unhealed sacral insufficiency fractures. Thank you for letting us participate in the care of this patient. If you are a health care provider and have any questions regarding this report, please contact the number below. For patients who have questions please contact the health animal care giver that requested your imaging first. Electronically signed by: Funmilayo Marrero [facility] ([phone]), at 12/01/2022 9:27 AM MEDICATIONS: Scheduled Meds: Continuous Infusions: PRN Meds: Vitals: Temp: [36.5 ??C (97.7 ??F)] Heart Rate: [87-97] Resp: [18-26] BP: (112-136)/(66-89) SpO2: [95 %-97 %] Heart Rate from SpO2: -- BMI: Weight: 104.3 kg (230 lb) (11/30/221943) BMI (Calculated): 37.69 BMI Classification: Obese I/O: No intake/output data recorded. LABS: Recent Labs 11/30/222004 WBC 8.7 HGB 13.2 PLATELET 260 Recent Labs 11/30/222004 NA 133* K 4.3 CL 99 CO2 20* BUN 8 CREATININE 0.62* No results for input(s): PT, INR in the last 72 hours. Active Hospital Problems Diagnosis Cervical myelopathy Resolved Hospital Problems No resolved problems to display. Active Non-Hospital Problems Diagnosis Serous adenofibroma of left ovary Moderate opioid use disorder Thoracic compression fracture, sequela Herniation of lumbar intervertebral disc with radiculopathy Adnexal mass Primary osteoarthritis of right knee Carpal tunnel syndrome, bilateral Trigger thumb of left hand Knee pain, bilateral Osteoarthritis of patellofemoral joint Cervical spondylosis without myelopathy Cervical disc displacement Cervical radiculitis Occipital neuralgia Neck pain on left side Breast hypertrophy Amada Booker MD 12/01/2022 documented in this encounter H&P Notes * Amada Booker MD - 12/02/2022 10:30 AM EDT [facility] NEUROSURGERY Admission H&P Update Please see NSGY consult note from 11/30/22 for further details on this admission. documented in this encounter Procedure Notes * Sudeep Womack MD - 12/06/2022 9:57 AM EDT MANAN Removal Procedure: Patient is seen in bed in [facility] without change in neuro exam from earlier. MANAN with minimal output. Discussed with attending, agreed to remove the drain. Dressing was removed. The drain was taken off suction. The area around the tubing's entry site was cleaned with ChloraPrep. The tack-up suture was removed. The drain was carefully extracted. The entry site was closed with 4-0 monocryl suture in a [id number] fashion. This was done with the usual sterile technique. Dressing was placed. Patient tolerated the procedure well without any complications. Plan: See today's progress note * Usha Taylor MD - 12/02/2022 3:49 PM EDT NEUROD[facility]AGNOSTIC LABORATORY [facility] INTRAOPERATIVE MONITORING REPORT Name: Katheryn Carranza : 1960 Date of Surgery: 12/02/2022 Surgeon(s): Louie cadena MD Surgical Procedure: Posterior C5-T2 decompression and instrumentation Monitoring Procedure: Intraoperative free-running EMG of the bilateral C3-S1 innervated muscles of the upper and lower extremities; motor cord monitoring using transcranial motor evoked potentials (tcMEPs) from the aforementioned muscles; sensory cord and brachial plexus monitoring using bilateral ulnar, median, and posterior tibial nerve somatosensory evoked potentials (SSEPs); scalp EEG monitoring; peripheral nerve conduction testing using ulnar nerve stimulation with ipsilateral first dorsalinterosseous pickup, respectively. CPT Codes: 48664 (EEG); 05077 (EMG four limbs); 35167 (TOF, 4 nerves); 95619 (upper & lower MEP); 82511 (upper and lower SSEP bilateral); 62464 (IOM, 2 units); 54588 (IOM, 2 units). Total IOM time: 2 hours 26 mins. Intraoperative Neurophysiologic Monitoring was performed for a total duration of 2 hours 26 mins. During this time period, the IOM attending was present in the operating room for a total of 32 mins. Clinical History: 62 y.o. female with CSM who presented with worsening weakness and urinary incontinence since a fall 4 days prior to presentation Monitoring Team: Usha Taylor MD; Elio Flores PhD, CNIM. Anesthesia: Propofol/schuyler Report: Following anesthesia and prior to positioning the patient, surface needle electrode pairs were placed bilaterally in the deltoid, biceps, triceps, extensor carpi radialis, abductor pollicis brevis, abductor digiti minimi, tibialis anterior, and abductor hallucis brevis muscles. Surface needle electr odes were also placed at appropriate locations on the scalp to record cortical SSEPs from stimulation leads placed bilaterally over the ulnar, median, and posterior tibial nerves. Stimulating electrodes were placed at scalp locations C3, and C4 to elicit tcMEPs in the aforementioned muscles. Countswere kept of all needles and other items attached to the patient for monitoring, and all were accounted for and disposed of at the conclusion of the surgery. At baseline before positioning, reproducible cortical SSEPs were obtained from the bilateral ulnar,median and posterior tibial nerves stimulations. Both upper and lower SSEPs were delayed. All SSEPswere small in amplitude, worse on the ulnar and posterior tibial nerves. Baseline peripheral motor conduction testing indicated adequate peripheral conduction and validated subsequent EMG-based monitoring. Concurrently, tcMEPs were elicited from all monitored muscles, except bilateral tibialis anterior muscles. EEG was typical for the type of anesthesia being used, with periods of time showing burst suppression. Patient was given muscle relaxant during the exposure. SSEPs remained stable during the exposure. When surgeons were about to place screws, anesthesia team gave the muscle relaxant reversal. We were able to get [id number] on all four nerves. tcMEP were stable. The screw placement was uneventful. EMG was quiet. SSEPs and tcMEPs were stable. During the decompression, EMG was quiet too. SSEPs and tcMEPs were unchanged from baseline. At closing, all signals were stable at baseline. Impression: No significant persistent changes were observed during the monitoring period to raise concern for anew fixed post-operative neurologic deficit. Usha Taylor MD CC: Tien Zurita MD documented in this encounter ED Notes * Alla Rosario RN - 12/01/2022 1:26 AM EDT Pt moved onto hospital bed for comfort * Alla Rosario RN - 11/30/2022 11:54 PM EDT Hospital bed ordered * Leopoldo Power MD - 11/30/2022 9:43 PM EDT ED Resident Note HPI: Katheryn Carranza is a 62 y.o. female with history of cervical myelopathy, osteoarthritis who presentsto the Emergency Department with worsening weakness after a fall. Patient states that approximatelyfour days ago she was walking and she has some baseline difficulty using her left lower extremity and she caught on the carpet and tripped. States that she landed on her left elbow but did not hit her head or pass out. She subsequently slipped out of her wheelchair two days later and landed on her buttocks. She states that she feels like her coordination and weaknesses generally getting worse it does seem like some of it is been related to her first fall. At baseline, she states she is had some difficulty controlling her bladder function but now states that the second she gets the urge to urinate she almost immediately has to go which is new since her fall. She also states that her upper extremity coordination seems to be worse. Patient has been following with the neurosurgical team here for her cervical myelopathy. There was a plan for laminectomy on 24 December. Otherwise, she is endorsing some lower back pain that she states has been chronic and she has been following with her PCP for that. She denies any other painful injuries from her fall. She denied anychest pain or palpitations prior to the fall and did not get short of breath. ROS as per HPI Vitals: ED Triage Vitals [11/30/221940] BP: 128/78 Heart Rate: 97 Resp: 18 Temp: 36.5 ??C (97.7 ??F) Temp src: Oral SpO2: 97 % O2 Device: O2 Flow Rate (L/min): n/a Physical Exam Vitals and nursing note reviewed. Constitutional: General: She is not in acute distress. Appearance: She is well-developed. She is not diaphoretic. HENT: Head: Normocephalic and atraumatic. Eyes: Conjunctiva/sclera: Conjunctivae normal. Cardiovascular: Rate and Rhythm: Normal rate and regular rhythm. Heart sounds: Normal heart sounds. Pulmonary: Effort: Pulmonary effort is normal. Breath sounds: Normal breath sounds. Abdominal: General: Bowel sounds are normal. Palpations: Abdomen is soft. Musculoskeletal: Cervical back: Neck supple. Skin: General: Skin is warm and dry. Neurological: Mental Status: She is alert and oriented to person, place, and time. Cranial Nerves: No cranial nerve deficit. Sensory: Sensory deficit present. Motor: Weakness present. ED Course: I have reviewed labs and imaging, images and available reports, and they are significant for: CT Head & Cervical Spine wo Contrast (Generic) Final Result 1. No acute intracranial hemorrhage or calvarial fracture. 2. No acute fracture or traumatic malalignment of the cervical spine. 3. Multilevel cervical spondylosis, with chronic severe central canal narrowing at C6-C7, related to focal ligamentum flavum calcification. Thank you for letting us participate in the care of this patient. If you are a health care provider and have any questions regarding this report, please contact the number below. For patients who have questions please contact the health animal care giver that requested your imaging first. Electronically signed by: Elizabeth Fishman MD, [facility] ([phone]), at 11/30/2022 9:36 PM Procedures Assessment and Plan: 62 y.o. female with cervical myelopathy. I get the sense that patient has had some degree of progression in her underlying symptoms. She does have sensory changes in the bilateral lower extremities with weakness of left hip flexion. She also clearly has some weakness in the left hand. She is also had some worsening of her bladder function. Overall, I think that this is similar to her prior pattern of deficits but just worsening and likely due to her known myelopathy. Her fall was clearly mechanical as she tripped over a rug. She had no preceding cardiac symptoms ofchest pain, shortness of breath, palpitations and I do not think she needs further evaluation from that standpoint. She also has no other signs of traumatic injury and is ranging her joints and has no tenderness to palpation. Will plan to discuss with neurosurgery to see if there needs to be any change to her underlying surgical plan. Patient was signed out to the oncoming team pending final neurosurgery recommendations. Leopoldo Power MD Resident 11/30/223 Associated attestation - Calista Barrera MD - 12/01/2022 12:34 AM EDT ED ATTENDING ATTESTATION NOTE The patient was seen in conjunction with the resident physician. I have independently performed thekey portions of the history and physical exam. I have reviewed the diagnostic studies including labs, imaging studies and EKGs. I have discussed the details of the case with the resident and agree with the assessment and plan as described in the resident note unless noted below or in my separate note. Brief Summary: 62 y.o. female with worsening L sided weakness after a fall. Known severe cervical stenosis. She has hand extension weakness and L hip flexor weakness with 2 beats of clonus in her feet. Neurosurgeryconsulted with concern for need for expedited surgery and she is admitted to their service. * Guido Chan PA - 11/30/2022 7:38 PM EDT 62 y/o F with hx of occipital neuralgia and cervical radiculitis presents with left hand and leg weakness. She also reports some loss of control of her bladder. This has been a problem for the last four days. Says she slid out of her chair and this made her chronic cervical pain worse. Denies hitting her head when she fell. Says she has been dragging her left foot. Has left sided lower back pain as well. Labs and CT Head and C spine ordered. Guido Chan PA 11/30/221943 documented in this encounter Miscellaneous Notes * Care Management Discharge - Ashley Kwon RN - 12/16/2022 10:33 AM EDT CARE MANAGEMENT FINAL DISCHARGE NOTE Chart reviewed, care reviewed with primary team and at interdisciplinary rounds. Patient is medically ready for discharge to [facility]. Needs for Transition of Care: Plan for discharge is: Pending Hospital Course and PT/OT Recommendations Outpatient Agency/Support Group Needs: None Agency Referrals & Follow-up Care: Contact information for follow-up [facility], [facility] [address] [place] [address] [place] [address] Transportation: ambulance requested noon, not confirmed yet. Functional status prior to admission: Independent, Assistive Equipment Home Environment: Others in the home: spouse, pet(s). Current Living Arrangements: home/apartment/condo. Accessibility Concerns:Pt lives in multistory home, 4-6 REGINO, had fall at home requiring this hopistal admit, TBD. Current Functional Ability: Assistive Person and Equipment DME used at home: walker - standard DME Needed at Discharge: none Patient is insured through: Primary Insurance: [employer] [place] Payor[place] [employer] [place] / Plan[place] / Product Type: *No Product type* / Secondary Insurance: N/A Prescription Coverage: (Unable to assess) This plan was formulated with input from patient, -Prieto (please identify family/friend involved if applicable) and team. All are in agreement with plan. Ashley SHEA, RN Pager #[phone] * Plan of Care - Cindy Morejon RN - 12/16/2022 4:54 AM EDT OUTCOME EVALUATION NOTE: OUTCOME SUMMARY: Patient is alert & oriented x4, no changes neurologically. VSS, on RA, afebrile. [place] to posterior neck incision intact/approximated. Reports severe pain 9 to 10 radiating from neck to shoulders. PRN 20mg oxycodone & valium & voltaren gel admin with standing tylenol & lido derm patches. Able to rest for several hours consecutively during the night. Stand and pivot to bedside commode with x1 assist- continent of urine. PLAN MOVING FORWARD: Q6hr Vitals WA Q Shift Neuro Check Pain Management Encourage getting OOB INDIVIDUALIZED FALL PREVENTION INTERVENTIONS: Patient-specific fall risk factors per assessment: pain meds, increased pain with movement, previous fall, generalized weakness Assistance: 1 assist, FWW, Stand & Pivot Supervision: Hands on Surveillance: Bed locked in low position, call lange within reach, purposeful hourly rounding, bed/chair alarm on, clutter free room. Patient-specific fall prevention interventions for sensory deficits provided: Yes CPG GOAL OUTCOME EVALUATION: Continue care plan as documented. Problem: Adult Inpatient Plan of Care Goal: Plan of Care Review Outcome: Ongoing (Interventions Implemented as Appropriate) Goal: Patient-Specific Goal (Individualized) Outcome: Ongoing (Interventions Implemented as Appropriate) Goal: Absence of Hospital-Acquired Illness or Injury Outcome: Ongoing (Interventions Implemented as Appropriate) Goal: Optimal Comfort and Wellbeing Outcome: Ongoing (Interventions Implemented as Appropriate) Goal: Readiness for Transition of Care Outcome: Ongoing (Interventions Implemented as Appropriate) Problem: Pain Acute Goal: Acceptable Pain Control and Functional Ability Outcome: Ongoing (Interventions Implemented as Appropriate) Problem: Fall Injury Risk Goal: Absence of Fall and Fall-Related Injury Outcome: Ongoing (Interventions Implemented as Appropriate) * Plan of Care - Mayuri Patel RN - 12/15/2022 5:27 PM EDT OUTCOME EVALUATION NOTE: OUTCOME SUMMARY: Patient is alert and oriented x4, no changes neurologically. VSS, on RA, afebrile. Patient continues to rate pain 9-10/10 radiating from neck to shoulders. PRN pain medication given (see MAR). Stand and pivot to bedside commode withy x1 assist. PLAN MOVING FORWARD: Q6hr Vitals WA Q Shift Neuro Check Pain Management Encourage getting OOB INDIVIDUALIZED FALL PREVENTION INTERVENTIONS: Patient-specific fall risk factors per assessment: increased pain with movement, previous fall, generalized weakness Assistance: 1 assist, FWW, Stand & Pivot Supervision: Hands on Surveillance: Bed locked in low position, call lange within reach, purposeful hourly rounding, bed/chair alarm on, clutter free room, family at bedside Patient-specific fall prevention interventions for sensory deficits provided: Yes CPG GOAL OUTCOME EVALUATION: Continue care plan as documented. * Plan of Care - Cristina Gan RN - 12/15/2022 6:27 AM EDT OUTCOME EVALUATION NOTE: OUTCOME SUMMARY: Pt A&O, pain remains severe per pt report. PRN's given x2. She makes her needs known. Was continent overnight. Up to commode with 1A and walker. Mood is very pleasant. Is eager to get to rehab facility. VSS. PLAN MOVING FORWARD: Q shift NC, Q6 hr W/A VS. PT/OT. Discharge planning INDIVIDUALIZED FALL PREVENTION INTERVENTIONS: Patient-specific fall risk factors per assessment: Pain, weakness, impaired mobility Assistance: 1- assist, FWW, gait belt Supervision: Independent, Eyes on, Arms reach, Hands on Surveillance: Bed locked in low position, call lange within reach, purposeful hourly rounding, clutter free environment, bed/chair alarm on, family at bedside Patient-specific fall prevention interventions for sensory deficits provided: N/A CPG GOAL OUTCOME EVALUATION: Continue care plan as documented. * Plan of Care - Mayuri Patel RN - 12/14/2022 5:38 PM EDT OUTCOME EVALUATION NOTE: OUTCOME SUMMARY: Patient is alert and oriented x4, VSS, on RA, afebrile. Patient stand and pivot to commode, has AUOP. PRN pain medication given for shoulder/neck pain (see MAR). PRN voltaren gel applied on shouldersfor uncontrolled pain. Worked with PT/OT today, up in chair. PLAN MOVING FORWARD: Q6hr Vitals WA Q Shift Neuro Check Pain Management Encourage getting OOB INDIVIDUALIZED FALL PREVENTION INTERVENTIONS: Patient-specific fall risk factors per assessment: increased pain with movement, previous fall, generalized weakness Assistance: 1 assist, FWW, gait belt, Stand & Pivot Supervision: Hands on Surveillance: Bed locked in low position, call lange within reach, purposeful hourly rounding, bed/chair alarm on, clutter free room, family at bedside Patient-specific fall prevention interventions for sensory deficits provided: Yes CPG GOAL OUTCOME EVALUATION: Continue care plan as documented. * Plan of Care - Cristina Gan RN - 12/14/2022 5:13 AM EDT OUTCOME EVALUATION NOTE: OUTCOME SUMMARY: Pt A&O, cont with pain 9/10, muscle tightness at times. PRN given x2. Up to commode with 1A andwalker. Mood pleasant. Makes needs known. Was incontinent x1 while sleeping. Is ready to get to rehab and get stronger. PLAN MOVING FORWARD: Q shift NC, Q6 W/A VS. PT/OT. Discharge planning INDIVIDUALIZED FALL PREVENTION INTERVENTIONS: Patient-specific fall risk factors per assessment: weakness, impaired gait Assistance: 1- assist, FWW, gait belt Supervision: Hands on Surveillance: Bed locked in low position, call lange within reach, purposeful hourly rounding, clutter free environment, bed/chair alarm on Patient-specific fall prevention interventions for sensory deficits provided: N/A CPG GOAL OUTCOME EVALUATION: Continue care plan as documented. * Plan of Care - Mayuri Patel RN - 12/13/2022 5:29 PM EDT OUTCOME EVALUATION NOTE: OUTCOME SUMMARY: Patient is alert and oriented x4, VSS, on RA, afebrile. Patient stand and pivot to commode, BM x2. Up in chair for most of the day with family visiting at bedside. PRN pain medication given for c/o neck and shoulder pain (see MAR). Patient c/o headache, scheduled tylenol given with good effect. PLAN MOVING FORWARD: Q6hr Vitals WA Q Shift Neuro Check Pain Management Encourage getting OOB INDIVIDUALIZED FALL PREVENTION INTERVENTIONS: Patient-specific fall risk factors per assessment: increased pain with movement, previous fall, generalized weakness Assistance:1 assist, FWW, Stand & Pivot Supervision: Hands on Surveillance: Bed locked in low position, call lange within reach, purposeful hourly rounding, bed/chair alarm on, clutter free room, family at bedside Patient-specific fall prevention interventions for sensory deficits provided: Yes CPG GOAL OUTCOME EVALUATION: Continue care plan as documented. * Plan of Care - Faiza Bernardo RN - 12/12/2022 5:56 PM EDT OUTCOME EVALUATION NOTE: OUTCOME SUMMARY: Patient A&Ox4 anxious but cooperative. No neuro changes. Lungs clear on RA. VSS. Meds whole with water. Pain managed per AUG. Neck incision NALLELY. Voids CYU in commode at bedside. Good PO intake. 1x OOB with FWW. PLAN MOVING FORWARD: Plan to manage pain and monitor for neuro changes INDIVIDUALIZED FALL PREVENTION INTERVENTIONS: Assistance: SBA, FWW, Supervision: Arms reach, Surveillance: Bed locked in low position, call lange within reach, purposeful hourly rounding, clutter free environment, bed/chair alarm on, family at bedside Patient-specific fall prevention interventions for sensory deficits provided: N/A CPG GOAL OUTCOME EVALUATION: Continue care plan as documented. Problem: Adult Inpatient Plan of Care Goal: Plan of Care Review Outcome: Ongoing (Interventions Implemented as Appropriate) Goal: Patient-Specific Goal (Individualized) Outcome: Ongoing (Interventions Implemented as Appropriate) Goal: Absence of Hospital-Acquired Illness or Injury Outcome: Ongoing (Interventions Implemented as Appropriate) Goal: Optimal Comfort and Wellbeing Outcome: Ongoing (Interventions Implemented as Appropriate) Goal: Readiness for Transition of Care Outcome: Ongoing (Interventions Implemented as Appropriate) Problem: Pain Acute Goal: Acceptable Pain Control and Functional Ability Outcome: Ongoing (Interventions Implemented as Appropriate) Problem: Fall Injury Risk Goal: Absence of Fall and Fall-Related Injury Outcome: Ongoing (Interventions Implemented as Appropriate) * Plan of Care - Sapphire Crawford RN - 12/12/2022 6:06 AM EDT OUTCOME EVALUATION NOTE: OUTCOME SUMMARY: AOx4, VSS stable, on RA. NC intact. Tolerating diet well. Voiding adequately up to bedside commode with x1 assist and FWW. Pt states pain is constantly a 10 in her right shoulder muscle. MD notified,no new orders received. Slept soundly in between cares. Surgical site CDI with parminder intact. paged regarding increase in resting HR. Noted that HR is frequently resting >100 over the past 48hr. PLAN MOVING FORWARD: Q4VS Q4NC Encourage OOB Pain control Placement INDIVIDUALIZED FALL PREVENTION INTERVENTIONS: Patient-specific fall risk factors per assessment: Hospital environment, lines/drains Assistance: FWW Supervision: x1 assist Surveillance: Bed locked in low position, call lange within reach, purposeful hourly rounding, clutter free room. Problem: Adult Inpatient Plan of Care Goal: Optimal Comfort and Wellbeing Outcome: Ongoing (Interventions Implemented as Appropriate) Problem: Adult Inpatient Plan of Care Goal: Readiness for Transition of Care Outcome: Ongoing (Interventions Implemented as Appropriate) Problem: Pain Acute Goal: Acceptable Pain Control and Functional Ability Outcome: Ongoing (Interventions Implemented as Appropriate) * Plan of Care - Sapphire Crawford RN - 12/11/2022 6:28 AM EDT OUTCOME EVALUATION NOTE: OUTCOME SUMMARY: AOx4, VSS stable, on RA. NC intact. Tolerating diet well. Voiding adequately up to bedside commode with x1 assist and FWW. Pain controlled with PRN oxy and valium. Surgical site CDI with parminder intact. Swelling noted at incision. MD paged and notified, stated he will come by during shift to look at site. PLAN MOVING FORWARD: Q4VS Q4NC Encourage OOB Pain control Placement INDIVIDUALIZED FALL PREVENTION INTERVENTIONS: Patient-specific fall risk factors per assessment: Hospital environment, lines/drains Assistance: FWW Supervision: x1 assist Surveillance: Bed locked in low position, call lnage within reach, purposeful hourly rounding, clutter free room. Problem: Pain Acute Goal: Acceptable Pain Control and Functional Ability Outcome: Ongoing (Interventions Implemented as Appropriate) Problem: Fall Injury Risk Goal: Absence of Fall and Fall-Related Injury Outcome: Ongoing (Interventions Implemented as Appropriate) Problem: Adult Inpatient Plan of Care Goal: Readiness for Transition of Care 12/10/20222247 by Sapphire Crawford RN Outcome: Ongoing (Interventions Implemented as Appropriate) 12/10/20222246 by Sapphire Crawford RN Outcome: Ongoing (Interventions Implemented as Appropriate) * Care Management - Ashley Kwon RN - 12/10/2022 4:22 PM EDT OFFICE OF CARE MANAGEMENT PROGRESS NOTE LOS: Hospital Day 10 days Chart reviewed, care reviewed with primary team and at interdisciplinary rounds. Patient continues to meet inpatient level of care related to: s/p surgical intervention for c-spine myelopathy in setting of fall. Decision Maker: Self Functional status prior to admission: Independent, Assistive Equipment Home Environment: Others in the home: spouse, pet(s). Current Living Arrangements: home/apartment/condo. Accessibility Concerns: Pt lives in multistory home, 4-6 REGINO, had fall at home requiring this hopistal admit, TBD. Current Functional Ability: Assistive Person and Equipment DME used at home: walker - standard DME Needed at Discharge: *TBD Patient is insured through: Primary Insurance: N/A Payor: / Secondary Insurance: N/A Last Physical Therapy Recommendation: halfway facility, swing bed rehabilitation facility with to be determined Last Occupational Therapy Recommendation: halfway facility with to be determined Plan for discharge is: Pending Hospital Course and PT/OT Recommendations Outpatient Agency/Support Group Needs: None Agency Referrals: Not Applicable Transportation: Barriers to discharge: Discharge planning Psych: Adjustment to diagnosis/illness, Coping/stress, Substance/Tobacco abuse Supports: Caregiver support Financial: Uninsured, Medication Plan going forward: Per team, pt is stable for next level of care which is felt to be SNF at this time. Barrier to d/c is lack of insurance, per he has added pt to his policy but we do not have a card yet. [employer] has assisted pt's to apply for LTC RADHA. Care Management will continue to follow and assist with discharge planning and coordination of care as indicated. Anticipated Date of Discharge: 12/13/2022 Ashley SHEA, RN Pager #[phone] * Plan of Care - Cristina Gan RN - 12/10/2022 4:15 AM EDT OUTCOME EVALUATION NOTE: OUTCOME SUMMARY: Pt A&O, pain continues in neck with PRN given x1 so far. Up to commode with SBA and walker. Wascontinent with getting up to the commode. Purewick wasn't placed until 0000. VSS. Mood is very pleasant. She is optimistic with these small improvements. PLAN MOVING FORWARD: Q4 hr VS/NC. Encourage getting OOB. Pain management. INDIVIDUALIZED FALL PREVENTION INTERVENTIONS: Patient-specific fall risk factors per assessment: weakness, pain Assistance: SBA, FWW, gait belt Supervision: Arms reach Surveillance: Bed locked in low position, call lange within reach, purposeful hourly rounding, clutter free environment, bed/chair alarm on Patient-specific fall prevention interventions for sensory deficits provided: N/A CPG GOAL OUTCOME EVALUATION: Continue care plan as documented. * Plan of Care - Cristina Gan RN - 12/09/2022 3:33 AM EDT OUTCOME EVALUATION NOTE: OUTCOME SUMMARY: Pt A&O x4, c/o 03/15 pain. Received PRN x2. Makes needs known. Incontinent of bladder, has purewick in place but doesn't always work well for her. Mood was pleasant. VSS. PLAN MOVING FORWARD: Q4 hr VS/NC. Encourage getting OOB. INDIVIDUALIZED FALL PREVENTION INTERVENTIONS: Patient-specific fall risk factors per assessment: weakness, impaired gait, pain Assistance: 1-2 assist, FWW, gait belt, Stand & Pivot Supervision: Hands on Surveillance: Bed locked in low position, call lange within reach, purposeful hourly rounding, clutter free environment, bed/chair alarm on Patient-specific fall prevention interventions for sensory deficits provided: N/A CPG GOAL OUTCOME EVALUATION: Continue care plan as documented. * Plan of Care - Elen Parry RN - 12/08/2022 3:06 AM EDT Problem: Adult Inpatient Plan of Care Goal: Plan of Care Review Outcome: Ongoing (Interventions Implemented as Appropriate) Goal: Patient-Specific Goal (Individualized) Outcome: Ongoing (Interventions Implemented as Appropriate) Goal: Absence of Hospital-Acquired Illness or Injury Outcome: Ongoing (Interventions Implemented as Appropriate) Goal: Optimal Comfort and Wellbeing Outcome: Ongoing (Interventions Implemented as Appropriate) Goal: Readiness for Transition of Care Outcome: Ongoing (Interventions Implemented as Appropriate) * Plan of Care - Mayuri Patel RN - 12/07/2022 4:41 PM EDT OUTCOME EVALUATION NOTE: OUTCOME SUMMARY: Patient alert and oriented x4, no changes neurologically. VSS, on RA, afebrile. Patient stand and pivot to commode, large/hard BM x1 after patient was given scheduled stool softeners and saline enema. Patient c/o pain in neck and shoulders, PRN pain medications given throughout shift (see MAR). PLAN MOVING FORWARD: Q4 hr Vitals Q4 hr Neuro Check Pain Management INDIVIDUALIZED FALL PREVENTION INTERVENTIONS: Patient-specific fall risk factors per assessment: increased pain with movement, previous fall, generalized weakness Assistance: 2 assist, FWW, Stand & Pivot Supervision: Hands on Surveillance: Bed locked in low position, call lange within reach, purposeful hourly rounding, bed/chair alarm on, clutter free room Patient-specific fall prevention interventions for sensory deficits provided: Yes CPG GOAL OUTCOME EVALUATION: Continue care plan as documented. * Plan of Care - Mayuri Patel RN - 12/06/2022 4:54 PM EDT OUTCOME EVALUATION NOTE: OUTCOME SUMMARY: Patient is alert and oriented x4, VSS, afebrile, on RA. MANAN drain removed per MD Womack. Cervical dressing dry and intact. Patient given PRN pain medication for c/o 9/10 pain from incision site and movement. External cath in place with AUOP. Patient up in chair today with PT for most of the shift. Stand and pivot back to bed w/ FWW. at bedside. PLAN MOVING FORWARD: Q4 hr Vitals Q4 hr Neuro Check Pain Management INDIVIDUALIZED FALL PREVENTION INTERVENTIONS: Patient-specific fall risk factors per assessment: increased pain with movement, previous fall, generalized weakness Assistance: x2 assist, FWW Supervision: Hands on Surveillance: Bed locked in low position, call lange within reach, purposeful hourly rounding, bed/chair alarm on, clutter free room, at bedside Patient-specific fall prevention interventions for sensory deficits provided: Yes CPG GOAL OUTCOME EVALUATION: Continue care plan as documented. * Plan of Care - Lissette Barkley RN - 12/06/2022 6:09 AM EDT Pt AOx4, bedrest overnight, good urine output, pain managed with scheduled and PRN medications, (See MAR). Pt tolerated turning and was able to assist in repositioning self. Lidocaine patches placed on bilateral posterior shoulders and lower back. MANAN drain patent, to suction, small serosanguinous output. Gross neuros remain intact. Pt c/o pain in neck and shoulders with movement. No complicationsovernight, continue to monitor and support patient. * Plan of Care - Mayuri Patel RN - 12/05/2022 4:52 PM EDT OUTCOME EVALUATION NOTE: OUTCOME SUMMARY: Patient is alert and oriented x4, VSS, afebrile, on RA. MANAN drain to bulb suction with 37.5 mLs of serosanguinous output. Cervical dressing dry and intact. Patient given PRN oxycodone and diazepam forpain management. External cath in place w/ AUOP. Patient encouraged to get up to chair, refused dueto increased pain with movement. Education provided on importance of mobility after surgery. at bedside. PLAN MOVING FORWARD: Q4 hr Vitals Q4 hr Neuro Check Pain Management Drain Care INDIVIDUALIZED FALL PREVENTION INTERVENTIONS: Patient-specific fall risk factors per assessment: increased pain with movement, previous fall, generalized weakness Assistance: x2 assist, FWW Supervision: Hands on Surveillance: Bed locked in low position, call lange within reach, purposeful hourly rounding, bed alarm on, clutter free room, family at bedside Patient-specific fall prevention interventions for sensory deficits provided: Yes CPG GOAL OUTCOME EVALUATION: Continue care plan as documented. * Initial Assessments - Ayana Byrd OT - 12/04/2022 10:10 AM EDT Occupational Therapy Evaluation Patient profile: Katheryn Carranza is a 62 y.o. female admitted on 11/30/2022 for worsening weakness after a fall at home. Known severe cervical stenosis. 12/02/22: 1. C4-5, C5-6, and C6-7 laminectomies and facetecomies with excision of ossified ligamentum flavum at C6-7 2. Bilateral postero-lateral arthrodesis, C4-5, C5-6, C6-7, C7-T1, T1-2 3. Bilateral posterior instrumentation, Medtronic Infinity, with stereotactic navigation, C4-T2 4. Local autograft and morselized allograft Past Medical History: Diagnosis Date ADD (attention deficit disorder) Depression ARCHANA (generalized anxiety disorder) Headache Hypertension Neck pain on left side 07/04/2012 Thoracic compression fracture, sequela 08/03/2022 Tobacco abuse Past Surgical History: Procedure Laterality Date BREAST REDUCTION SURGERY Bilateral 12/2011 HYSTERECTOMY PRG FLUOROSCOPY EXAM UP TO 1 HR PHY OR OTH HLTH CARE PROV N/A 12/02/2022 FLUOROSCOPY (WRVU 0.3) performed by Tien Zurita MD at [facility] MAIN OR PRO ALLOGRAFT FOR SPINE SURGERY ONLY MORSELIZED N/A 12/02/2022 ALLOGRAFT FOR SPINE SURGERY ONLY; MORSELIZED (WRVU *) performed by Tien Zurita MD at [facility] MAIN OR PRO ARTHRODESIS POSTERIOR/PSTLAT TECH 1 INTERSPACE LUMBAR, EA ADD'L INTERSPACE N/A 12/02/2022 ARTHRODESIS, POSTERIOR VERTEBRAL EA.ADD. SEGMENT (WRVU 6.43) performed by Tien Zurita MD at [facility] OR PRO ARTHRODESIS, POST/POSTEROLAT TQ, SNGLE INTERSPACE; CERVICAL BELOW C2 SEGMNT N/A 12/02/2022 @ARTHRODESIS, POSTERIOR CERVICAL SPINE (WRVU 17.4) performed by Tien Zurita MD at [facility] MAIN OR PRO AUTOGRAFT SPINE SURGERY LOCAL FROM SAME INCISION N/A 12/02/2022 AUTOGRAFT FOR SPINE SURGERY ONLY, SAME INCISION (WRVU *) performed by Tien Zurita MD at [facility] MAIN OR PRO BREAST REDUCTION 12/09/2011 REDUCTION MAMMOPLASTY, CHRISTIAN performed by DEMETRA SOMMERS at [facility] OR PRO LAMINEC/FACETECT/FORAMIN, CERVICAL 1 SEG N/A 12/02/2022 LAMINECTOMY, FACETECTOMY & FORAMINOTOMY, CX, ONE LEVEL (WRVU 17.95) performed by Tien Zurita MD at [facility] MAIN OR PRO LAP, DIAGNOSTIC ABDOMEN Left 08/02/2022 LAPAROSCOPY, DIAGNOSTIC, ABDOMEN (WRVU 5.14) performed by Antonio Rojas MD at [facility] MAIN OR PRO POSTERIOR SEGMENTAL INSTRUMENTATION 3-6 VRT SEG N/A 12/02/2022 POST SPINAL INSTRUMENTATION, 3-6 VERTEBRA, NON SEGMENTAL (WRVU 12.56) performed by Tien Zurita MD at [facility] MAIN OR PRO REMOVAL OF OVARY/TUBE(S) Left 08/02/2022 @SALPINGO-OOPHORECTOMY, UNILATERAL OR CHRISTIAN (WRVU 12.16) performed by Antonio Rojas MD at [facility] MAIN OR PRO STEROTACTIC CPTR ASSTD PX SPINAL N/A 12/02/2022 STEREOTACTIC COMPUTER-ASSTD NAVIGATIONAL SPINAL (WRVU 3.75) [facility] UPPER GI ENDOSCOPY, DIAGNOSTIC N/A 08/05/2022 EGD, UPPER GI ENDOSCOPY performed by Donnie Obrien MD at [facility] ENDOSCOPY Social History: Patient lives with her . 2 daughters, both of whom live near by. Home Setup: 2 level, 3 REGINO. Pt reports she has been staying on the first floor for some time, unable to negotiate the stairs. Tub/shower. Sleeps in recliner chair. DME: wheelchair, shower seat, 4WW Baseline ADL/Mobility: Unclear, Daughter assists with showering. Per chart, pt with frequent falls at home walking and falling out of wheelchair. Precautions/Special Considerations: Pure wick, Left MANAN drain, SBP <160, minimize bending/lifting/twisting, fall Subjective: I don't sleep good at night Objective: Seen today for OT evaluation. Cognitive Status/Behavior: Behavior / Mood: initially sleepy, roused to voice. Alert, emotional, anxious Alert and oriented to: person, place, and situation Follows commands: 1 step, requires increased time, and requires repetition Attention: focused on pain Safety awareness: decreased insight into deficits Vision & Perception: Glasses pushed to the top of her head. Communication: WFL Range of motion, strength, coordination: Hand dominance: right Bilateral UEs are within functional limitations, though pt c/o of christian cramping LE limitations: WFL Sensation: subjectivley intact Activities of Daily Living: Self-feeding: required assist to open packages, cut up banana for cereal. However, pt noted to remove lid from glass of juice and pour into another glass Grooming: anticipate set up, extra time and effort due to neck pain Dressing: dependent Bathing: not formally assessed, at baseline has assist from daughter. At this time anticipate max assist due to neck pain Toileting: Transfer: will need bed wright at this time, unable to tolerate sitting EOB Hygiene: has pure wick Functional Mobility: Supine to sit: mod assist x2 going to the left, HOB elevated, use of linens Sit to stand: N/A. Pt unable to tolerate sitting EOB due to neck pain Ambulation: N/A Stand to sit: N/A Sit to supine: mod assist x2 Balance: Sitting balance: fair static Standing balance:N/A, pt unable to tolerate sitting EOB Vitals: With Activity SpO2 96% Heart Rate 99 Pain: did not rate, but c/o of neck pain entire session. Had been premedicated. Also c/o of cramping in BUE Skin: incision covered with dressing with MANAN drain Education: patient has been educated on Role of occupational therapy/rehabilitation, Positioning, Functional Mobility, Balance, Recommendations, and Discharge planning and needs reinforcement. understanding. Patient status, treatment, and mobility recommendations discussed with nursing. Assessment: Pt has been seen for occupational therapy evaluation. Katheryn Carranza presents with the following performance skill deficits and client factors: increased pain, decreased activity tolerance, decreasedflexibility / ROM, decreased sitting / standing balance, decreased postural control, deconditioning, precautions / bracing, and compromised mobility status. These performance deficits have led to activity limitations and participation restrictions in the following areas of occupation: dressing, bathing, grooming, toileting, and transfers / mobility. Pt initially reluctant to participate in therapy today because of pain, but was agreeable. Pt c/o of neck pain and shoulder pain, as well as cramping in BUEs. At this time pt is dependent for ADLs, bed mobility., Pt unable to tolerate sitting EOB so returned to supine. Anticipate pt will require rehab at discharge. Pt would benefit from further inpatient OT interventions to address performance deficits and maximize participation and independence with occupations of daily living. Equipment needs at discharge: to be determined Anticipated Discharge Disposition: to be determined pending medical status & functional progression Other Recommendations: Utilize upright chair position using bed features Encourage participation in ADL's by providing set up A on tray table and physical assist only as needed Other Recommendations: No other consults recommended at this time. Goals: To be achieved by 12/18/22. Pt will sit EOB for 10 minutes with set up for ADLs Pt will be supervision for LE ADLS with AE as needed Pt will be supervision with walker functional mobility to the bathroom and back Pt will be independent with toilet hygiene Pt will stand sink level for light grooming tasks with supervision Pt will be supervision for all functional transfers from a variety of surfaces Plan: OT: Therapy Frequency (OT): 2-4 times/wk Total Minutes, Occupational Therapy: 2016 OT Evaluation Code Rationale: Diagnosis & Pertinent Co-Morbidities affecting Plan of Care: see PMHx Occupational Profile & Client History: Brief Expanded Extensive x Assessment of Occupational Performance: 1-3 performance deficits 3-5 performance deficits 5 + performance deficits x Clinical Decision Making: Low Moderate High x Clinical decision making of high complexity using standardized patient assessment instrument and measurable assessment of functional outcome. Pager: [phone] Ayana Byrd OT 12/04/2022 Occupational Therapy Rehabilitation Department * Care Management - Ashley Kwon RN - 12/03/2022 4:10 PM EDT OFFICE OF CARE MANAGEMENT PROGRESS NOTE LOS: Hospital Day 3 days Chart reviewed, care reviewed with primary team and at interdisciplinary rounds. Patient continues to meet inpatient level of care related to: s/p surgical intervention for C-spine myelopathy with increased pain noted. Decision Maker: Self Functional status prior to admission: Independent, Assistive Equipment Home Environment: Others in the home: spouse, pet(s). Current Living Arrangements: home/apartment/condo. Accessibility Concerns: Pt lives in multistory home, 4-6 REGINO, had fall at home requiring this hopistal admit, TBD. Current Functional Ability: Assistive Person and Equipment DME used at home: walker - standard DME Needed at Discharge: *TBD Patient is insured through: Primary Insurance: N/A Payor: / Secondary Insurance: N/A Last Physical Therapy Recommendation: with Last Occupational Therapy Recommendation: with Plan for discharge is: Pending Hospital Course and PT/OT Recommendations Outpatient Agency/Support Group Needs: None Agency Referrals: Not Applicable Transportation: Barriers to discharge: Discharge planning Psych: Adjustment to diagnosis/illness, Coping/stress, Substance/Tobacco abuse Supports: Caregiver support Financial: Uninsured, Medication Plan going forward: Barrier to d/c is pain, and lack of insurance. Once stable pt will need rehab evals for next level of care. Care Management will continue to follow and assist with discharge planning and coordination of care as indicated. Anticipated Date of Discharge: 12/08/2022 Ashley SHEA, RN Pager #[phone] * Plan of Care - Mayuri Patel RN - 12/03/2022 4:18 AM EDT OUTCOME EVALUATION NOTE: OUTCOME SUMMARY: Patient arrived from PACU @2029, report received from Leidy. Upon arrival patient is alert and oriented x4, VSS, afebrile. Patient placed on 2L NC overnight fordesat of 86% while sleeping. MANAN drain to bulb suction, had 160mLs of sanguineous output. Cervical dressing dry and intact. Patient given 10mg PRN oxycodone x2 and PRN robaxin overnight for c/o 10/10 back pain with good relief. NS running @100 mL/hr overnight. Fournier cath in place with AUOP. PLAN MOVING FORWARD: Q4 hr Neuro Check Q4 hr Vitals Pain Management Drain Care INDIVIDUALIZED FALL PREVENTION INTERVENTIONS: Patient-specific fall risk factors per assessment: previous fall, generalized weakness, lines and wires Assistance: 1-2 assist, FWW Supervision: Hands on Surveillance: Bed locked in low position, call lange within reach, purposeful hourly rounding, bed alarm on, clutter free room, family at bedside Patient-specific fall prevention interventions for sensory deficits provided: Yes CPG GOAL OUTCOME EVALUATION: Continue care plan as documented. * Initial Assessments - Ashley Kwon RN - 12/02/2022 4:01 PM EDT Office of Care Management Initial Assessment Ashley Kwon RN reviewed record and discussed patient with Care Team. Source of Information: Team, bedside nurse, medical record, and Chart Review-Pt in OR unable to reach . Admitted From: Home Reason for Hospitalization: I fell and had progressive L weakness, urge incontinence at night, for planned surgery for spinal compression Covid Vaccination Status: 1st dose only Last COVID test: none noted Past medical History: Past Medical History: Diagnosis Date ADD (attention deficit disorder) Depression ARCHANA (generalized anxiety disorder) Headache Hypertension Neck pain on left side 07/04/2012 Thoracic compression fracture, sequela 08/03/2022 Tobacco abuse Hospitalizations Within the Past 30 Days: no previous admission in last 30 days Current Decision-Making Capacity: Self Advance Care Planning: Attempt Cardiopulmonary Resuscitation - Inpatient Received -Advanced Directive: Yes, on file Who is your DPOA-HC?: Spouse Current Coping/Education/Information Needs: na Current Functional Ability: Assistive Person, Assistive Equipment and Assistive Person Functional Status Prior to Admission: Independent, Assistive Equipment Prior ADLs & IADLs: Independent with all ADLs & IADLs Home Environment: Others in the home: spouse, pet(s). Current Living Arrangements: home/apartment/condo. Accessibility Concerns:Pt lives in multistory home, 4-6 REGINO, had fall at home requiring this hopistal admit, TBD. Resource / Environmental Concerns: Resource/Environmental Concerns: financial Financial Concerns: insurance, none, medicine, unable to afford (TBD) Current DME: walker - standard Home Address listed as: [address] [place] [phone] Social & Family Supports: All names listed below confirmed with patient as current and correct Extended Emergency Contact Information Primary Emergency Contact: Prieto Carranza Address: [address] [place] [phone] [facility] Mobile Relation: Spouse Secondary Emergency Contact: [place] [address] [facility] Mobile Relation: Child Current Care Provided by: self, spouse/significant other Provides Primary Care For: pet(s) Caregiver if needed: spouse Quality of Family relationships: helpful, involved, supportive Community Resources being provided currently: none Behavioral Health History: none noted, but pt takes Seroquel and has remote HX of substance use/abuse? Substance Use/Abuse listed: Social History Tobacco Use Smoking Status Every Day Packs/day: 0.25 Years: 35.00 Pack years: 8.75 Types: Cigarettes Smokeless Tobacco Never In the past year have you used an illegal drug or used a prescription medication for non-medical reasons?: No 0 No problems reported 1-2 Low level 3-5 Moderate level 6-8 Substantial level 9- 10 Severe level In the past year have you had 4 or more drinks a day containing alcohol?: No 0 to 7 points: Low risk 8 to 15 points: Medium risk 16 to 19 points: High risk 20 to 40 points: Addiction likely Other Pertinent/Service Specific Information: No insurance listed, sent notification to [employer] to assist. Health/Prescription Coverage: Primary Insurance: N/A Payor: / Secondary Insurance: N/A ; Prescription Coverage: (Unable to assess) Preferred Pharmacy: [facility] - [address] [address] Status: Patient is a : Primary Care Provider listed: Lena Womack, DIRECTOR CORPORATE [phone] Patient/Caregiver Goals of Treatment: TBD pending hospital course and rehab evals. Potential Needs for Transition of Care: home health care, durable medical equipment Agency Referrals: Not Applicable Transportation: no concerns Transportation Anticipated: family or friend will provide Concerns to be Addressed: adjustment to diagnosis/illness, disabilities caregiver support, discharge planning, uninsured, substance/tobacco abuse/use, medication Assessment: Patient is admitted to Neurosurg service for cervical myelopathy in setting of fall with increased symptoms. Plan: TBD pending hospital course and rehab evals post op. A member of the Care Management team will continue to monitor progress, follow for continuity of care and assist with transition of care planning. Ashley Kwon MSN, RN Pager #[phone] * Op Note - Tien Zurita MD - 12/02/2022 1:27 PM EDT [facility] Operative Note Patient Name: Katheryn Carranza : [id number] MR#: [id number] Case Date: 12/02/2022 Surgeon: Surgeon(s) and Role: * Tien Zurita MD - Primary * Louie Rosario MD - Resident - Assisting * Usha Taylor MD - Resident - Assisting Preoperative diagnosis: Cervical stenosis with myelopathy Postoperative diagnosis: Cervical stenosis with myelopathy Procedure(s) (LRB): @ARTHRODESIS, POSTERIOR CERVICAL SPINE (WRVU 17.4) (N/A) ARTHRODESIS, POSTERIOR VERTEBRAL EA.ADD. SEGMENT (WRVU 6.43) (N/A) LAMINECTOMY, FACETECTOMY & FORAMINOTOMY, CX, ONE LEVEL (WRVU 17.95) (N/A) POST SPINAL INSTRUMENTATION, 3-6 VERTEBRA, NON SEGMENTAL (WRVU 12.56) (N/A) AUTOGRAFT FOR SPINE SURGERY ONLY, SAME INCISION (WRVU *) (N/A) ALLOGRAFT FOR SPINE SURGERY ONLY; MORSELIZED (WRVU *) (N/A) STEREOTACTIC COMPUTER-ASSTD NAVIGATIONAL SPINAL (WRVU 3.75) (N/A) MODIFIER,POSTERIOR CERVICAL INFINITY MEDTRONIC (N/A) FLUOROSCOPY (WRVU 0.3) (N/A) MODIFIER,O-ARM, MOR (N/A) MODIFIER MEDTRONIC STEALTH (N/A) MODIFIER NEUROMONITORING (N/A) Procedure: 1. C4-5, C5-6, and C6-7 laminectomies and facetecomies with excision of ossified ligamentum flavum at C6-7 2. Bilateral postero-lateral arthrodesis, C4-5, C5-6, C6-7, C7-T1, T1-2 3. Bilateral posterior instrumentation, Medtronic Infinity, with stereotactic navigation, C4-T2 4. Local autograft and morselized allograft CPT: 44041 fusion single level +95475 x 4 for each additional fusion level 03061-64 Cervical Laminectomy/Facetectomy single level +88931 x2 Cervical laminectomy/facetectomy each additional level +36605 Instrument 3-6 Level, +83743 navigation +64612 autograft + allograft Findings: Calcified ligamentum flavum at C6-7, severe stenosis at C4-5 Anesthesia: General Estimated Blood Loss: 200 mL Specimens removed during surgery: None Drains: #15 round Persian Surgical Closure: Primary Closure - skin incision is completely closed without any wires, steph, drains or other devices Disposition: awakened from anesthesia, extubated and taken to the recovery room in a stable condition, having suffered no apparent untoward event. Condition: doing well without problems (Please see the Surgical Encounter Summary for any Implant and Specimen details pertinent to this patient.) Indication for Procedure: Katheryn Carranza is a 62 y.o. female with progressive symptoms of degenerative cervical myelopathy, including bilateral hand numbness, severe left hand weakness, difficulty walking with severe left leg weakness. She was first worked up for a CVA, but was ultimately found to have severe stenosis at C4-5 and C6-7, with the latter due to a large calcified ligamentum flavum. Th e patient was scheduled for elective semiurgent surgery given her severe myelopathy symptoms, however she experienced a fall with acute worsening of her symptoms including progressive left-sided weakness and bladder incontinence. Updated imaging did not demonstrate any new findings, except for slight progression of stenosis at C4-5. The patient was admitted to the hospital and indicated for urgent decompression and stabilization of the abnormal spinal segments. Description of Procedure: At the time of surgery the patient underwent induction of general anesthesia. A fournier catheter and appropriate monitoring lines were placed by anesthesia and intraoperative neuro monitoring. The patient's head was placed in Boyle pins, and they were turned prone on an Open Johnny frame and all pressure points carefully padded. The cervical to upper thoracic region was prepped and draped in standard sterile fashion. A standard midline incision from the C4 to T2 levels was performed, and careful midline dissection with the Bovie monopolar through the nuchal ligament was performed exposing the C4-T2 spinous processes. Fluoroscopy was brought into the field for confirmation of the appropriate level, with a clamp placed at C3 due to poor visualization below this level due to her shoulders. Once the levels were confirmed, the subperiosteal dissection was completed with deep retractors placed exposing the lateral masses of the subaxial cervical spine and transverse processes of T1 and T2. Director Of [employer] holes for lateral mass screws bilaterally from C4 - C6 was performed with an initial 2mm cutting miguel for opening the cortex in the standard Magerl entry point, and then using the CD4 hand-heldpower drill, 14mm depth ship harbor pilot holes were placed using standard Magerl technique. The ship harbor pilot holes were palpated using a fine ball-tipped probe and subsequently tapped. Lateral mass screws were left out at this time. The O-arm was then brought into the field for acquisition of stereotactic guidance for placement of T1 and T2 pedicle screws. Then with the [employer] spinal navigation, bilateral pedicle screws were placed at T1 and T2. Cervical laminectomy was first performed at C4-5 with removal of the C5 lamina en bloc. Using the image guidance, bilateral troughs were then made at C6-7 ensuring that the troughs were lateral to the calcified ligamentum flavum. The ligamentum at C5-6, C6-7, and C7-T1 was disconnected and the laminae were carefully lifted off en-bloc with meticulous dissection of the calcified ligamentum flavum off of the dura. Hemostasis of epidural bleeding was performed with light bipolar cautery, and floseal - cotton huma tamponade. Once the C6 and C7 lamina were removed and hemostasis was obtained, thedura was inspected. A small amount of residual soft calcification was noted on the left side, whichwas severely adherent and possibly eroded through the dura. This did not appear to cause any local mass effect and was not attempted to be dissected free. Valsalva maneuver was performed and there was no evidence of any CSF egress. Further decompression was performed with Kerrisons for removal of residual ligamentum and foraminotomies were performed at C4-5, C5-6, and C6-7. Lateral mass screws were then placed bilaterally from C4-6. The patient's head was placed into extension and bilateral titanium rods were sized, shaped, and placed bilaterally without need for reduction. An offset connector was needed on the left T1 pedicle screw. Set screws were affixed and final tightening was performed according to manufacture specifications. The O-arm was then brought back into the room for confirmation of satisfactory hardware placement from C4- T2 and adequate decompression. The wound was irrigated free 500 cc of dilute Betadine and allowed to pull for 3 minutes, followed by 3 L of lactated Ringer's irrigation. The lateral masses, T1 and T2 spinous process and lamina were decorticated, and local autograft was placed along with Medtronic kassy DBF morselized allograftalong the lateral gutters covering the kelly surfaces. Retractors were removed and meticulous hemostasis was obtained. A drain was left in place in the subfascial space, 1 gram of Vancomycin powder was dispersed in the wound, and then the wound was closed in layers with 0 Vicryl in the fascia. Thiswas followed by additional 2 0 vicryl closure in the deep dermal space, and with parminder in the skin. A sterile silver impregnated Mepilex dressing was applied. The patient was turned supine at the conclusion of the procedure and pins were removed, and inspected for any bleeding. The patient was extubated and transferred to the postop recovery area in stable condition without untoward harm. Surgical Infection Prevention Bundle Used? N/A I was the attending physician supervising the resident in the above care and I was present with theresident for the entire procedure. Tien Zurita MD [employer] Section of Neurosurgery Department of Surgery [facility] * Plan of Care - Mayuri Patel RN - 12/02/2022 4:12 AM EDT OUTCOME EVALUATION NOTE: OUTCOME SUMMARY: Patient alert and oriented x4, VSS, on RA, afebrile. Patient c/o 6/10 back pain, PRN tylenol-codeine given with good relief. Numbness noted in BLE/BUE extremities. @0020 patient desat to 73%, 2L NC applied, team paged. NPO @0540. NS running via PIV @100mL/hr. Patient unsteady with stand and pivot to bedside commode, AUOP. PLAN MOVING FORWARD: Q4hr Neuro Check Q4 hr Vitals Pain management Surgery (12/03) INDIVIDUALIZED FALL PREVENTION INTERVENTIONS: Patient-specific fall risk factors per assessment: previous fall, generalized weakness, lines and wires Assistance: 1-2 assist, FWW Supervision: Hands on Surveillance: Bed locked in low position, call lange within reach, purposeful hourly rounding, bed/chair alarm on, clutter free room Patient-specific fall prevention interventions for sensory deficits provided: Yes CPG GOAL OUTCOME EVALUATION: Continue care plan as documented. * Consult Note - Rosaura James RPH - 12/01/2022 3:49 PM EDT [facility] List Update for Medication Reconciliation 12/01/22 3:49 PM Katheryn Cararnza 1960 Allergies Allergen Reactions Allergenic Extracts Pollen Tramadol Low potassium Zoloft [Sertraline] Nausea And Vomiting Person Interviewed: patient Quality of Interview/accuracy of medication list: good Sources used to compile medication list: [x] Epic medication list [x] SureScripts [] PCP/Specialist list [] Retail pharmacy [] Patient list [] MAR [] Other Changes made to home medication list: Additions: Methocarbamol 1000mg PO BID Tramadol 100mg PO BID PRN Docusate 100mg PO daily B complex PO daily Vit D3 - 2000 units PO daily Deletions: Cyclobenzaprine Ibuprofen Senna/Docusate Changes: Gabapentin 600mg PO TID Additional Notes: Amitriptyline- per dispense hx, last fill (10/13/22) was supposed to wean down to 50mg qHS, then stop. However, pt reports she is still taking 100mg PO qHS Recommended changes: none The home medication list is now updated to the best of my knowledge and is ready to be reconciled by the provider. Please contact the TelePharmacy Medication Reconciliation Pharmacist at for any questions. Rosaura James RPH * Consult Note - Saul Alonso MD - 12/01/2022 10:13 AM EDT General Internal Medicine Pre-Op Evaluation Subjective: Patient Information: Katheryn Carranza is a 62 y.o. female with PMHx of cervical myelopathy 2/2 severecanal stenosis at C6-C7, OA, prediabetes, HTN, active tobacco use who is admitted to NSGY service. Internal Medicine is requested to perform pre-operative evaluation. Reason for surgery - Laminectomy HPI - Presented to the ED on 11/30 for progressive lower extremity weakness after a mechanical fall (tripped on a rug). Has weakness in left hand and leg and lower back pain. Has also had progressive bladder dysfunction. Was initially scheduled for laminectomy with NSGY on 12/24 however due to progression of her symptoms, NSGY decided to accept her as an admission with plan for surgical intervention during this admission. She was intended to have pre-operative evaluation with her PCP on 12/06. Studies reviewed: CBC WNL (Hgb = 13.2). Renal function WNL. A1c 6.2% (08/2022). No recent EKG or CXR. Images from CT chest/abdomen/pelvis 07/2022 available and reviewed: notable for paraseptal nodules in the peripheral left lower lobe with probable intrapulmonary lymph nodes and dependent atelectasis. Patient's concerns about surgery - Katheryn is scared about surgery but wants improvement in her symptoms so would like to proceed. She has had breast reduction, hysterectomy and ovarian neoplasm removed in the past. Patient's difficulties with anesthesia in the past - No Date of surgery - 12/02 (tentative) Surgeon - Dr. Tien Zurita Advance Directives - On file Patient's Preferred Medical Decision Maker and Relationship to Patient - Prieto Carranza (spouse) Patient Active Problem List Diagnosis Code Breast hypertrophy N62 Neck pain on left side M54.2 Cervical spondylosis without myelopathy M47.812 Cervical disc displacement M50.20 Cervical radiculitis M54.12 Occipital neuralgia M54.81 Knee pain, bilateral M25.561, M25.562 Osteoarthritis of patellofemoral joint M17.10 Carpal tunnel syndrome, bilateral G56.03 Trigger thumb of left hand M65.312 Primary osteoarthritis of right knee M17.11 Adnexal mass N94.89 Moderate opioid use disorder F11.20 Thoracic compression fracture, sequela S22.000S Herniation of lumbar intervertebral disc with radiculopathy M51.16 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 Cervical myelopathy G95.9 Past Surgical History: Procedure Laterality Date BREAST REDUCTION SURGERY Bilateral 12/2011 HYSTERECTOMY PRO BREAST REDUCTION 12/09/2011 REDUCTION MAMMOPLASTY, CHRISTIAN performed by DEMETRA SOMMERS at [facility] MAIN OR PRO LAP, DIAGNOSTIC ABDOMEN Left 08/02/2022 LAPAROSCOPY, DIAGNOSTIC, ABDOMEN (WRVU 5.14) performed by Antonio Rojas MD at [facility] MAIN OR PRO REMOVAL OF OVARY/TUBE(S) Left 08/02/2022 @SALPINGO-OOPHORECTOMY, UNILATERAL OR CHRISTIAN (WRVU 12.16) performed by Antonio Rojas MD at [facility] MAIN OR PRO UPPER GI ENDOSCOPY, DIAGNOSTIC N/A 08/05/2022 EGD, UPPER GI ENDOSCOPY performed by Donnie Obrien MD at [facility] ENDOSCOPY Allergies Allergen Reactions Allergenic Extracts Pollen Tramadol Low potassium Zoloft [Sertraline] Nausea And Vomiting Latex Allergy - [x] No; [] Yes No current facility-administered medications on file prior to encounter. Current Outpatient Medications on File Prior to Encounter Medication Sig Dispense Refill Mag [address] tablet Take 64 mg by mouth every evening. sucralfate (Carafate) 1 gram tablet TAKE ONE TABLET BY MOUTH FOUR TIMES A DAY BEFORE MEALS AND AT BEDTIME loratadine (Claritin) 10 mg Tablet Take 10 mg by mouth daily. pantoprazole EC (Protonix) 40 mg Tablet, Delayed Release (E.C.) Take 1 tablet by mouth 2 times daily. 120 tablet 0 acetaminophen (Tylenol) 325 mg Tablet Take 2 tablets by mouth every 6 hours. 65 tablet 0 ibuprofen (Advil) 600 mg Tablet Take 1 tablet by mouth every 6 hours. 65 tablet 0 lisinopriL (Zestril) 10 mg Tablet Take 1 tablet by mouth daily. 90 tablet 2 senna-docusate (Pericolace) 8.6-50 mg Tablet Take 2 tablets by mouth 2 times daily as needed for Constipation. 60 tablet 1 amitriptyline (ELAVIL) 100 mg Tablet Take 100 mg by mouth nightly. gabapentin (NEURONTIN) 300 mg Capsule Take 300 mg by mouth 3 times daily. QUEtiapine (SEROQUEL) 25 mg tablet Take 100 mg by mouth nightly. multivitamin (THERAGRAN) tablet Take 1 tablet by mouth daily. atenolol (TENORMIN) 50 mg tablet Take 50 mg by mouth daily. cyclobenzaprine (FLEXERIL) 10 mg tablet Take 10 mg by mouth 3 times daily as needed. Visit Vitals BP 136/89 Pulse 89 Temp 36.5 ??C (97.7 ??F) (Oral) Resp 26 Ht 166.4 cm (5' 5.5) Wt 104.3 kg (230 lb) SpO2 96% BMI 37.69 kg/m?? BP Readings from Last 3 Encounters: 12/01/22 136/89 11/03/22 125/80 08/16/22 134/65 Wt Readings from Last 3 Encounters: 11/30/22 104.3 kg (230 lb) 11/03/22 104.3 kg (230 lb) 08/16/22 103.4 kg (227 lb 14.4 oz) Review of Systems Constitutional: Negative for chills and fever. Respiratory: Negative for shortness of breath and wheezing. Cardiovascular: Positive for leg swelling. Negative for chest pain. Gastrointestinal: Negative for nausea and vomiting. Objective: Physical Exam Vitals reviewed. Constitutional: General: She is awake. She is not in acute distress. Appearance: She is obese. Comments: Chronically ill appearing female in NAD, mild discomfort from low back pain. Alert and interactive. Eyes: Extraocular Movements: Extraocular movements intact. Conjunctiva/sclera: Conjunctivae normal. Cardiovascular: Rate and Rhythm: Normal rate and regular rhythm. Heart sounds: Normal heart sounds. Pulmonary: Effort: Pulmonary effort is normal. Comments: Expiratory wheezing that cleared after a cough. Fine bibasilar inspiratory crackles. Abdominal: General: Abdomen is protuberant. There is no distension. Palpations: Abdomen is soft. Tenderness: There is no abdominal tenderness. Musculoskeletal: Right lower le+ Pitting Edema present. Left lower le+ Pitting Edema present. Neurological: Mental Status: She is alert. Assessment and Plan: The following VERY HIGH RISK PATIENTS - Should be optimally treated, with possible referral to a planning advisor for further evaluation: High Risk Patients [] Recent CA or unstable angina [] Decompensated heart failure [] High-grade arrhythmia [] Hemodynamically important valvular hear disease (aortic stenosis in particular) FUNCTIONAL CAPACITY FOR INTERMEDIATE OR HIGH RISK SURGERY Mets Examples [] 1 Perform ADL's Walk indoors Walk a block at 2-3 mph [x] 4 Walk up a flight of steps or a hill Walk on level ground at 3 to 4 mph [] 4-10 Can do heavy work around the house (scrubbing floors or lifting or moving heavy furniture. Climb two flights of stair Run a short distance Scrub floors / move heavy furniture Moderate recreational activities [] 10 Participate in strenuous sports such as swimming, singles tennis, football, basketball, and skiing SURGICAL RISK Surgical risk Procedure Examples [] High risk Major emergency surgery Aortic and other major vascular surgery Peripheral artery surgery [x] Intermediate Carotid endarterectomy Head and neck surgery Intraperitoneal and intrathoracic Orthopedic surgery (not same day) Prostate surgery [] Low Ambulatory surgery (includes most arthroscopies) Endoscopic procedures Superficial procedures Cataract surgery Breast surgery RISK FACTOR STRATIFICATION FOR PATIENTS UNABLE TO EXERCISE BEYOND 4 METS [] None [] History of Ischemic heart disease [] History of heart failure [] History of cerebrovascular disease [] Insulin dependent diabetes mellitus [] Peroperative serum creatinine >= 2.0 mg/dl [x] Increasing age [] Higher Risk Procedure (intraperitoneal, intrathoracic, vascular) Clinical Risk Factors Surgical Risk Further Testing [] 3 or more High / Vascular YES [] 3 or more Intermediate HR Control, consider non-invasive testing [x] 1 or 2 ANY HR Control, consider non-invasive testing [] None ANY NO PERIOPERATIVE TESTING History Action [x] Intermediate risk procedure with 1+ clinical risk factors, or patient without recent EKG [x] Preoperative EKG [] Prior history or concern for anemia, history of clotting or bleeding disorder (should not be ordered routinely) [] CBC [] Coagulation studies [] Pt on medications: Digoxin, Chema-I/ARB, diuretics OR patients undergoing urologic procedure w/ bladder irrigation [] Electrolytes/creatinine [] Pts with Diabetes or Risk Factors for Diabetes [] fasting BG [] HbA1c (if not within last 3 months) [] None of the above No testing unless clinically indicated PERIOPERATIVE MEDICATION MANAGEMENT Medication Usual Action Considerations [] NO CHANGES [] Aspirin Clopidogrel Ticlopiine Prasugrel Stop 7-10 days prior to surgery Low-dose aspirin for secondary prevention of CV disease or primary prevention in a high-risk patient can be continued through surgery. [] Warfarin Depending on clinical situation Warfarin should be stopped 5 days prior to surgery, andLMWH initiated 3 days prior and continued until Postoperative INR is in therapeutic range. Low Molecular Weight Heparin Bridge if: [] Afib with CHADS2 score > 3 [] Prior stroke with warfarin interruption [] DVT or PE within 12 months or severe thrombophilia (Protein C/S deficiency, antithrombin 3 deficiency, antiphospholipid antibody syndrome) [] Mitral Valve Prosthesis [] Bi-leaflet Aortic Valve Prosthesis + Afib, history of stroke, CHF, Diabetes, hypertension No Low Molecular Weight Heparin Bridge Necessary if: [] CHADS2 is 2 or less and no history of stroke/tia, discuss risk/benefit [] DVT and PE greater than 12 months prior and no risk factors (including factor 5 leiden heterozygotes) [] bileaflet aortic valve prosthesis without above risk factors [] Dabigatran (or other direct thrombin inhibitor) Low bleed risk: [] Cr. Clear >80: >1 day [] Cr. Clear 30-80: >1-2 days [] Cr. Clear 15-29: NA [] Dabigatran (or other direct thrombin inhibitor) High bleed risk: [] Cr. Clear >80: >2-3 days [] Cr. Clear 50-80: >3-4 days [] Cr. Clear 30-49: >4 days [] Cr. Clear 15-29: NA [] Rivaroxaban / Apixaban Low bleed risk: [] Cr. Clear 30->80: >1 day [] Rivaroxaban / Apixaban High bleed risk: [] Cr. Clear 15-29: >36 hours [] Cr. Clear >80: >2 days [] Cr. Clear 50-80: >2-3 days [] Cr. Clear 30-49: >3-4 days [] Cr. Clear 15-29: >4 days [x] RAAS antagonists (ACEIs, ARBs) Discontinue at least 10 hours prior to surgery For all Surgery Types [] If T1DM basal insulin of 0.2-0.3 units/kg/day of long-acting. Give the morning of surgery If patient using an insulin pump, basal rate should be continued. [] If T2DM Decrease long acting dose by 50% on day of surgery Recommend more frequent monitoring ifpoorly controlled [] Metformin Discontinue 24 hours prior to surgery Due to risk of lactic acidosis [] Sulfonylureas Discontinue the morning of surgery Due to risk of hypoglycemia [] TZDs, DPP4 Inhibitors, GLP 1 agonists: Discontinue the day of surgery [] Corticosteroids (inhaled and PO) Continue at regular dosing Stress dosing only necessary if signs of adrendal insufficiency. [] NSAIDs Discontinue 5 days prior to surgery to reverse antiplatelet effect. SUMMARY: CARDIAC RISK STRATIFICATION Surgery Risk Mets Risk Action [] Low risk Any Proceed to OR [x] Intermediate >=4 Proceed to OR [] Intermediate <4 No cardiac risk factors Proceed to OR [] Intermediate >=4 1 or more cardiac Risk factors - Consider Beta Blockers initation for resting heart Rate < 65 (re-assess prior to surgery) - Consider Stress Testing if it would spinning frame changer or would be done otherwise PULMONARY RISK REDUCTION [] None needed [x] Incentive Spirometry Reviewed RECOMMENDATIONS [] Pre-anesthesia consult required for all patients with a DNR or limited resuscitation order who are expected to receive anesthesia services. RISK FOR SURGERY [x] Medically stable for surgery [] High risk - further assessment is needed Ms. Carranza was seen today for a Preoperative Assessment. Based on increasing age and reduced exercise capacity would recommend obtaining an EKG for completepre operative risk stratification. EKG reviewed and similar to previous, with negative troponin andno active chest pain is all reassuring. No need for further cardiac evaluation pre operatively. Due to fine inspiratory crackles and bilateral pitting edema would recommend CXR. Suspect that physical exam findings are more consistent with atelectasis and lymphedema from reduced physical activity however it would be prudent to obtain imaging to assess for pulmonary edema. CT chest from 07/2022 had findings of atelectasis and Katheryn is currently stable on room air. She would benefit from incentive spirometry, especially post operatively. Medication adjustment: Hold CHEMA-I (lisinopril) at least 10 hours pre operatively. Also at risk of opioid induced constipation, would be aggressive with bowel regimen. Twila Ahumada MD Internal Medicine, PGY-3 Addendum: CXR reviewed and no pulmonary edema. Attending Staff New Consult Documentation We have been asked to see this patient in consultation by Dr. Zurita from . Please see Dr. Ahumada's note for details of the patient history of presentation and data. I have discussed, reviewed and agree with the documented history with ROS, social and family history, medication list, physical findings, labs/studies, Assessment and Plan of care. I have examined the patient myself and reviewed all labs and studies personally. Additions to the history, physical, assessment and plan include the following: Issues Pre-op eval for cervical laminectomy for canal stenosis and cord pressure Recommendations RCRI (revised cardiac risk index) of 1 for intermediate/high risk surgery (6% 30 day mortality , CA or cardiac arrest). Tolerated anesthesia in August no issue, baseline ECG similar to prior. Baseline trop neg. No further eval indicated prior to OR Remainder as above. SAUL ALONSO MD * Consult Note - Giovanna MckeonRODRICKN - 11/30/2022 10:15 PM EDT Neurosurgery Inpatient Consultation Note Date & Time of Consult: 11/30/2022 10:16 PM Referring Service: ED Referring Attending: Neurosurgery Attending: Dr. Zurita Place of Consult: [id number] ID: Name: Katheryn Carranza, 62 y.o. female Admission Date: 11/30/2022 CC: Weakness s/p fall HPI: This is a 62 y.o. female with a PMHx of cervical myelopathy, osteoarthritis, HTN , known to NSGY service; who presented to [facility] ED per recommendation from NSGY clinic with weakness s/p fall. Patient reports that on Tuesday she opened her door to let her dog out when her foot caught the rug and she fell onto her elbows and knees. She denies any headstrike. She then reports that on Saturdayshe went to get out of the recliner and was unable to close the chair and she slid onto the flooronto her buttocks. She reports she feels weak in her left hand and left leg and lower back pain. She also reports having bladder control issues but reports that since Tuesday she feels they have become more difficult. She reports when she gets the urge to urinate she needs to go right away or otherwise she will be incontinent. She has been needing to wear a brief during the day. And she is using her walker more to ambulate due to being more concerned about falling. She continues to report decreased sensation to her bilateral groin area extending down through her bilateral inner thigh to her inner calves and feet. Reports this has been baseline since September(previous fall). But denies any worsening symptoms. Of note; patient scheduled for laminectomy for cervical myelopathy on December 24. However, due to recent fall with weakness was recommended to come in to the ER for evaluation. Denies any bowel incontinence PMH: Past Medical History: Diagnosis Date ADD (attention deficit disorder) Depression ARCHANA (generalized anxiety disorder) Headache Hypertension Neck pain on left side 07/04/2012 Thoracic compression fracture, sequela 08/03/2022 Tobacco abuse Past Surgical History: Procedure Laterality Date BREAST REDUCTION SURGERY Bilateral 12/2011 HYSTERECTOMY PRO BREAST REDUCTION 12/09/2011 REDUCTION MAMMOPLASTY, CHRSITIAN performed by DEMETRA SOMMERS at [facility] MAIN OR PRO LAP, DIAGNOSTIC ABDOMEN Left 08/02/2022 LAPAROSCOPY, DIAGNOSTIC, ABDOMEN (WRVU 5.14) performed by Antonio Rojas MD at [facility] MAIN OR PRO REMOVAL OF OVARY/TUBE(S) Left 08/02/2022 @SALPINGO-OOPHORECTOMY, UNILATERAL OR CHRISTIAN (WRVU 12.16) performed by Antonio Rojas MD at [facility] MAIN OR PRO UPPER GI ENDOSCOPY, DIAGNOSTIC N/A 08/05/2022 EGD, UPPER GI ENDOSCOPY performed by Donnie Orbien MD at [facility] ENDOSCOPY Medications: No current facility-administered medications on file prior to encounter. Current Outpatient Medications on File Prior to Encounter Medication Sig Dispense Refill Mag [address] tablet Take 64 mg by mouth every evening. sucralfate (Carafate) 1 gram tablet TAKE ONE TABLET BY MOUTH FOUR TIMES A DAY BEFORE MEALS AND AT BEDTIME loratadine (Claritin) 10 mg Tablet Take 10 mg by mouth daily. pantoprazole EC (Protonix) 40 mg Tablet, Delayed Release (E.C.) Take 1 tablet by mouth 2 times daily. 120 tablet 0 acetaminophen (Tylenol) 325 mg Tablet Take 2 tablets by mouth every 6 hours. 65 tablet 0 ibuprofen (Advil) 600 mg Tablet Take 1 tablet by mouth every 6 hours. 65 tablet 0 lisinopriL (Zestril) 10 mg Tablet Take 1 tablet by mouth daily. 90 tablet 2 senna-docusate (Pericolace) 8.6-50 mg Tablet Take 2 tablets by mouth 2 times daily as needed for Constipation. 60 tablet 1 amitriptyline (ELAVIL) 100 mg Tablet Take 100 mg by mouth nightly. gabapentin (NEURONTIN) 300 mg Capsule Take 300 mg by mouth 3 times daily. QUEtiapine (SEROQUEL) 25 mg tablet Take 100 mg by mouth nightly. multivitamin (THERAGRAN) tablet Take 1 tablet by mouth daily. atenolol (TENORMIN) 50 mg tablet Take 50 mg by mouth daily. cyclobenzaprine (FLEXERIL) 10 mg tablet Take 10 mg by mouth 3 times daily as needed. Scheduled Meds: Continuous Infusions: PRN Meds:. Allergies: Allergies Allergen Reactions Allergenic Extracts Pollen Tramadol Low potassium Zoloft [Sertraline] Nausea And Vomiting Family Hx: Family History Problem Relation Age of Onset Alcohol Use Disorder Sister Cerebrovascular Accident Sister Migraines Sister Alcohol Use Disorder Brother [facility] Sister Breast Cancer Maternal Aunt Arthritis Neg Hx Asthma Neg Hx Cancer Neg Hx Heart Disease Neg Hx Substance Use Disorder Neg Hx Social Hx: Social History Socioeconomic History Marital status: Spouse name: Prieto Number of children: 2 Years of education: Not on file Highest education level: Not on file Occupational History Occupation: unemployed Tobacco Use Smoking status: Every Day Packs/day: 0.25 Years: 35.00 Pack years: 8.75 Types: Cigarettes Smokeless tobacco: Never Vaping Use Vaping Use: Never used Substance and Sexual Activity Alcohol use: Yes Comment: 1-2x a year Drug use: Yes Types: Marijuana Comment: marijuana use (not medical marijuana), denies h/o drug abuse Sexual activity: Yes Other Topics Concern Not on file Social History Narrative Not on file Social Determinants of Health Financial Resource Strain: Not on file Food Insecurity: Not on file Transportation Needs: Not on file Physical Activity: Not on file Housing Stability: Not on file Vitals: Vitals: 11/30/22 1941 11/30/22 1944 11/30/224 BP: 128/78 115/66 BP Location (NBP): Right arm Patient Position: Sitting Pulse: 97 92 Resp: 18 20 Temp: 36.5 ??C (97.7 ??F) TempSrc: Oral SpO2: 97% 96% Weight: 104.3 kg (230 lb) Height: 166.4 cm (5' 5.5) Physical Exam: -Gen: NAD. -HEENT: Normocephalic and atraumatic -CV: RR -Resp: Breathing non-labored. -GI: S/ND. Benign. -Spine: lower back tenderness -Neuro: Mental Status/Cognitive: Awake, alert, oriented x3 Speech: Fluent, appropriate. Naming and repetition intact. Cranial Nerves: PERRL CN II - Visual acuity and nation grossly intact CN III, IV, - EOMI CN V - Sensation intact in V1,2 and 3 distributions CN VII - No facial asymmetry/droop CN VIII - Intact hearing bilaterally to finger rub CN IX, X - Palate and uvula midline CN XI - Trapezius 5/5 bilat CN XII - Tongue midline Tone: Normal Power: No pronator drift Segment Muscle Action Left Right C5 Deltoid Shoulder Abduction 5 5 C6 Biceps Elbow flexion 5 5 C6 Extensor carpi radialis Wrist extension 3 5 C7 Triceps Elbow extension 5 5 C8 Finger flexors Grasp 3 5 T1 Interossei Finger abduction 3 5 L2 Iliopsoas Hip flexion 4- 5 L3 Quadriceps Knee extension 5 5 L4 Tibialis anterior Dorsiflexion 4- 5 L5 Extensor hallucis Great toe extension 4- 5 S1 Gastrocnemius Plantar flexion 5 5 Gait: Not assessed Sensation in the extremities: Decreased sensation to bilateral inner thighs, inner calves and feet. 2 beats of clonus bilaterally; nonsustained. Neg yates's Labs: Recent Labs 11/30/222004 WBC 8.7 HGB 13.2 PLATELET 260 Recent Labs 11/30/222004 NA 133* K 4.3 CL 99 CO2 20* BUN 8 CREATININE 0.62* No results for input(s): PT, INR in the last 72 hours. Imaging: Results for orders placed or performed during the hospital encounter of 11/30/22 CT Head & Cervical Spine wo Contrast (Generic) (Exam End: 11/30/2022 9:12 PM) Impression 1. No acute intracranial hemorrhage or calvarial fracture. 2. No acute fracture or traumatic malalignment of the cervical spine. 3. Multilevel cervical spondylosis, with chronic severe central canal narrowing at C6-C7, related to focal ligamentum flavum calcification. Thank you for letting us participate in the care of this patient. If you are a health care provider and have any questions regarding this report, please contact the number below. For patients who have questions please contact the health animal care giver that requested your imaging first. Assessment: This is a 62 y.o. female with a PMHx of cervical myelopathy, osteoarthritis, HTN , known to NSGY service; who presented to [facility] ED per recommendation from NSGY clinic with weakness s/p fall. Given her recent falls with weakness will plan to admit patient to Neurosurgery service for furtherworkup and potential surgical planning. Plan: -Admit to NSGY service; Dr. Zurita; floor status -No urgent/emergent Neurosurgical intervention indicated -Close neurological observation, q4 checks -Imaging: follow up CT C/T/L spine -NPO (ok to give meds) -BP control, keep SBP<160 -Hold anticoagulation -GI prophylaxis I have reviewed the above with Dr. Donis Rosario, who agrees with the assessment and plan. Please page NSGY [phone] if questions Giovanna Mckeon APRN Neurosurgery * ED Triage - Alla Mays RN - 11/30/2022 7:43 PM EDT HPI (Adult) Stated Reason for Visit: Pt states that she is here for Neurology appointment. Pt states that she has weakness of left leg and left arm and not control of her bladder. On assessment, GCS 15/15 and christy wheelchair. History Obtained From: patient * ED Triage - Alla Mays RN - 11/30/2022 7:43 PM EDT HPI (Adult) Stated Reason for Visit: Pt states that she is here for Neurology appointment. Pt states that she has weakness of left leg and left arm and not control of her bladder. On assessment, GCS 15/15 and christy wheelchair. History Obtained From: patient documented in this encounter Plan of Treatment Upcoming Encounters Date Type Department Care Team (Late st Contact Info) Description 03/07/2024 10:00 AM EDT Appointment XRay at [address] [place] [phone] RubentTien MD [facility] [place] [address] 03/07/2024 10:40 AM EDT Office Visit Neurosurgery at [facility] [place] [phone] Angel Hankins PA [facility] [place] [address] documented as of this encounter Procedures Procedure Name Priority Date/Time Associated Diagnosis Comments URINALYSIS MICROSCOPIC EXAM Routine 12/04/2022 3:08 PM EDT URINALYSIS WITH REFLEX CULTURE Routine 12/04/2022 3:08 PM EDT URINE CULTURE Routine 12/04/2022 3:08 PM EDT HEMOGRAM Routine 12/04/2022 6:25 AM EDT DIFFERENTIAL, AUTOMATED Routine 12/05/19 6:25 AM EDT CBC (WITH DIFF) Routine 12/04/2022 6:25 AM EDT BASIC METABOLIC PANEL Routine 12/04/2022 6:25 AM EDT XR CERVICAL SPINE 2 OR 3 VIEWS Routine 12/03/2022 10:10 AM EDT HEMOGRAM Routine 12/03/2022 8:36 AM EDT DIFFERENTIAL, AUTOMATED Routine 12/04/19 8:36 AM EDT CBC (WITH DIFF) Routine 12/03/2022 8:36 AM EDT BASIC METABOLIC PANEL Routine 12/03/2022 8:36 AM EDT EKG 12-LEAD STAT 12/02/2022 9:02 PM EDT Stenosis of cervical spine with myelopathy XR FLUORO NO RAD <1HR - OR USE Routine 12/02/2022 4:07 PM EDT XR O-ARM NO RAD - OR USE Routine 12/02/2022 4:06 PM EDT MODIFIER NEUROMONITORING Yes 12/02/2022 12:11 PM EDT Stenosis of cervical spine with myelopathy MODIFIER [employer] Yes 12/02/2022 12:11 PM EDT Stenosis of cervical spine with myelopathy MODIFIER, O-ARM, MOR Yes 12/02/2022 12:11 PM EDT Stenosis of cervical spine with myelopathy Fluoroscopy Exam Up To 1 Hr Phy Or Oth Hlth Care Prov ([id number]) Yes 12/02/2022 12:11 PM EDT Stenosis of cervical spine with myelopathy MODIFIER,POSTERIOR CERVICAL INFINITY MEDTRONIC Yes 12/02/2022 12:11 PM EDT Stenosis of cervical spine with myelopathy Sterotactic Cptr Asstd Px Spinal ([id number]) Yes 12/02/2022 12:11 PM EDT Stenosis of cervical spine with myelopathy Allograft For Spine Surgery Only Morselized () Yes 12/02/2022 12:11 PM EDT Stenosis of cervical spine with myelopathy Autograft Spine Surgery Local From Same Incision () Yes 12/02/2022 12:11 PM EDT Stenosis of cervical spine with myelopathy Posterior Segmental Instrumentation 3-6 Vrt Seg ([id number]) Yes 12/02/2022 12:11 PM EDT Stenosis of cervical spine with myelopathy Laminec/Facetect/Forami n, Cervical 1 Seg ([id number]) Yes 12/02/2022 12:11 PM EDT Stenosis of cervical spine with myelopathy Arthrodesis Posterior/Pstlat Technique 1 Interspace Lumbar, Ea Add'L Interspace ([id number]) Yes 12/02/2022 12:11 PM EDT Stenosis of cervical spine with myelopathy Arthrodesis, Post/Posterolat Tq, Sngle Interspace; Cervical Below C2 Segmnt ([id number]) Yes 12/02/2022 12:11 PM EDT Stenosis of cervical spine with myelopathy STEROTACTIC COMPUTER-ASSTD NAVIGATIONAL SPINAL Routine 12/02/2022 10:12 AM EDT Stenosis of cervical spine with myelopathy FLUOROSCOPY Routine 12/02/2022 10:12 AM EDT Stenosis of cervical spine with myelopathy LAMINECTOMY, FACETECTOMY & FORAMINOTOMY, CX, ONE LEVEL Routine 12/02/2022 10:12 AM EDT Stenosis of cervical spine with myelopathy POST SPINAL INSTRUMENTATION, 3-6 VERTEBRA,NON SEGMENTAL Routine 12/02/2022 10:12 AM EDT Stenosis of cervical spine with myelopathy ARTHRODESIS,POSTERIOR VERTEBRAL EA.ADD.SEGMENT Routine 12/02/2022 10:12 AM EDT Stenosis of cervical spine with myelopathy ARTHRODESIS,POSTERIOR CERVICAL SPINE Routine 12/02/2022 10:12 AM EDT Stenosis of cervical spine with myelopathy AUTOGRAFT FOR SPINE SURGERY ONLY,SAME INCISION Routine 12/02/2022 10:12 AM EDT Stenosis of cervical spine with myelopathy ALLOGRAFT FOR SPINE SURGERY ONLY;MORSELIZED Routine 12/02/2022 10:12 AM EDT Stenosis of cervical spine with myelopathy HEMOGRAM Routine 12/02/2022 6:59 AM EDT DIFFERENTIAL, AUTOMATED Routine 12/03/19 6:59 AM EDT CBC (WITH DIFF) Routine 12/02/2022 6:59 AM EDT BASIC METABOLIC PANEL Routine 12/02/2022 6:59 AM EDT IMPLANTABLE DEVICES SCAN 12/02/2022 12:00 AM EDT TROPONIN - SERIES STAT 12/01/2022 3:5 5 PM EDT TYPE AND SCREEN VALIDITY STAT 12/01/2022 3:55 PM EDT ABORH RECHECK STATUS STAT 12/01/2022 3:55 PM EDT ABO/RH TYPING STAT 12/01/2022 3:55 PM EDT HC PARTIAL THROMBOPLASTIN TIME STAT 12/01/2022 3:55 PM EDT PROTHROMBIN TIME STAT 12/01/2022 3:55 PM EDT ANTIBODY SCREEN STAT 12/01/2022 3:55 PM EDT TYPE AND SCREEN ([facility]/CGP/COMPA) STAT 12/01/2022 3:55 PM EDT XR CHEST PA AND LATERAL STAT 06/28/20 23 11:48 AM EDT EKG 12-LEAD STAT 12/01/2022 11:15 AM EDT Cervical myelopathy MRI LUMBAR SPINE WITHOUT CONTRAST STAT 12/01/2022 8:21 AM EDT MRI THORACIC SPINE WITHOUT CONTRAST STAT 12/01/2022 8:21 AM EDT MRI CERVICAL SPINE WO CONTRAST Routine 12/01/2022 8:[address] LUMBAR SPINE WWO CONTRAST STAT 12/01/2022 12:[address] THORACIC SPINE WO CONTRAST STAT 12/01/2022 12:[address] HEAD AND CERVICAL SPINE WO CONTRAST STAT 11/30/2022 9:12 PM EDT TROPONIN - SERIES STAT 11/30/2022 8:0 5 PM EDT HEMOGRAM STAT 11/30/2022 8:05 PM EDT DIFFERENTIAL, AUTOMATED STAT 12/01/19 8:05 PM EDT CBC (WITH DIFF) STAT 11/30/2022 8:05 PM EDT BASIC METABOLIC PANEL STAT 11/30/2022 8:05 PM EDT documented in this encounter Results * XR [...] who have questions please contact the health animal care giver that requested your imaging first. ? Electronically signed by: Svetlana Wellington MD, [facility] ([phone]), at 01/17/2023 2:21 PM Narrative 01/17/2023 2:21 [...] patients who have questions please contactthe health animal care giver that requested your imaging first. Chauhan A Echt IMG DX ORDERABLES * (ABNORMAL) Urine culture (12/04/2022 3:08 PM EDT) Urine Culture Greater than 100,000 cfu/ml Enterobacter cloacae complex(A) [facility] Organism Enterobacter cloacae complex(A) [facility] Clean Catch Urine 12/04/2022 3:08 PM EDT 12/04/2022 4:41 PM EDT Narrative Resulting Agency Comment Spec In Lab Organism Antibiotic Method Susceptibility Enterobacter cloacae complex Amikacin VITEK 2 METHOD Sensitive Enterobacter cloacae complex Aztreonam VITEK 2 METHOD Sensitive Enterobacter cloacae complex Cefazolin VITEK 2 METHOD Resistant Enterobacter cloacae complex Cefepime VITEK 2 METHOD <=1: Sensitive Enterobacter cloacae complex Ceftazidime VITEK 2 METHOD <=1: Sensitive Comment: This organism may develop resistance during therapy with 3rd generation cephalosporins (e.g. ceftriaxone, ceftazidime), particularly with prolonged durations, due to production of inducible AmpC beta-lactamases. Enterobacter cloacae complex Ceftriaxone VITEK 2 METHOD Sensitive Comment: This organism may develop resistance during therapy with 3rd generation cephalosporins (e.g. ceftriaxone, ceftazidime), particularly with prolonged durations, due to production of inducible AmpC beta-lactamases. Enterobacter cloacae complex Ertapenem VITEK 2 METHOD Sensitive Enterobacter cloacae complex Gentamicin VITEK 2 METHOD Sensitive Enterobacter cloacae complex Levofloxacin VITEK 2 METHOD Sensitive Comment: Levofloxacin and Ciprofloxacin may not adequately treat infections in critically ill patients even when isolates test susceptible in the laboratory. Contact Infectious Disease before using in critically ill patients. Enterobacter cloacae complex Meropenem VITEK 2 METHOD <=0.25: Sensitive Enterobacter cloacae complex Nitrofurantoin VITEK 2 METHOD Resistant Enterobacter cloacae complex Piperacillin/Tazobactam VITEK 2 METHOD 8: Sensitive Enterobacter cloacae complex Tetracycline VITEK 2 METHOD Sensitive Enterobacter cloacae complex Tobramycin VITEK 2 METHOD Sensitive Enterobacter cloacae complex Trimethoprim/Sulfa VITEK 2 METHOD Sensitive Sudeep Womack MD MICROBIOLOGY - GENER AL ORDERABLES Performing Organization Address [facility] Co de Phone Number [facility] [address] * (ABNORMAL) Urinalysis Microscopic Exam (12/04/2022 3:08 PM EDT) RBC, Urine 1 0 - 4 /HPF [facility] WBC, Urine 3 0 - 5 /HPF [facility] Bacteria, Urine Many(A) None /HPF [facility] Squamous Epithelial Cells Raw Data, Urine 1 <=4 /HPF [facility] Clean Catch Urine 12/04/2022 3:08 PM EDT 12/04/2022 3:32 PM EDT Narrative Resulting Agency Comment Spec In Lab Sudeep Womack MD URINE ORDERABLES Performing Organization Address [facility] Co de Phone Number [facility] [place] [address] * (ABNORMAL) Urinalysis with reflex Culture (12/04/2022 3:08 PM EDT) Glucose, Urine Dipstick Negative Negative mg/dL [facility] Protein, Urine Dipstick Negative Negative mg/dL [facility] Bilirubin, Urine Dipstick Negative Negative mg/dL [facility] Comment: Clinical correlation required for positive Urine Bilirubin results as false positive may occur with some drugs and drug related products. If a false positive is suspected a serum total bilirubin should be considered if clinically indicated. Urobilinogen, Urine Dipstick Normal Normal mg/dL [facility] pH, Urn (dipstick) 7.0 5.0 - 8.0 [facility] Blood, Urine Dipstick Negative Negative mg/dL [facility] Ketone, Urine Dipstick Negative Negative mg/dL [facility] Nitrite, Urine Dipstick Positive(A) Negative [facility] Leukocytes, Urine Dipstick Moderate(A) Negative mcL [facility] Appearance, Urine Dipstick Clear Clear [facility] Specific [place] Urine Automated 1.007 1.005 - 1.030 [facility] Color, Urine Dipstick Yellow Yellow [facility] Reflex to Culture Yes [facility] Clean Catch Urine 12/04/2022 3:08 PM EDT 12/04/2022 3:32 PM EDT Narrative Resulting Agency Comment Spec In Lab Chauhan A Echt URINE ORDERABLES [facility] [place] [address] * (ABNORMAL) Differential, Automated (12/04/2022 6:25 AM EDT) Neutrophil % 50.8 % [facility] Neutrophil Absolute 4.67 1.70 - 6.10 x10(3)/mc L [facility] Lymph % 36.4 % [facility] Lymphocytes Abs 3.4(H) 0.9 - 3.2 x10(3)/mc L [facility] Monocyte % 9.2 % [facility] Monocyte Abs 0.8 0.3 - 0.9 x10(3)/mc L [facility] Eos % 2.9 % [facility] Eosinophils Abs 0.3 0.0 - 0.4 x10(3)/mc L [facility] Basophil % 0.3 % [facility] Baso Absolute 0.0 0.0 - 0.1 x10(3)/mc L [facility] Immature Gran % 0.40 % [facility] Comment: Immature granulocytes(IG's)percentage and absolute count will include metamyelocytes, myelocytes, and promyelocytes. Blood smears from CBCs yielding IG's will be scanned manually for concordance. If this scan disagrees with the automated IG or if promyelocytes are noted, a manual differential will be performed. Immature Gran Absolute 0.04 0.00 - 0.04 x10(3)/mc L [facility] Blood 12/04/2022 6:25 AM EDT 12/04/2022 6:50 AM EDT Narrative Resulting Agency Comment Spec In Lab Louie Rosario MD HEMATOLOGY ORDERABLE S Performing Organization Address City/[facility]/ZIP Co de Phone Number [facility] [place] [address] * (ABNORMAL) Hemogram (12/04/2022 6:25 AM EDT) White Blood Cell 9.2 4.0 - 9.5 x10(3)/mc L [facility] Red Blood Cell 3.64(L) 4.00 - 5.21 x10(6)/mc L [facility] Hemoglobin 11.7 11.7 - 15.5 g/dL [facility] Hematocrit 33.7(L) 35.7 - 45.8 % [facility] Mean Cell Volume 92.6 82.6 - 94.4 fL [facility] Mean Cell Hemoglobin 32.1(H) 27.1 - 32.0 pg [facility] Mean Cell Hemoglobin Concentration 34.7 31.7 - 35.0 g/dL [facility] Platelet 251 145 - 357 x10(3)/mc L [facility] RDW Standard Deviation 41.7 37.0 - 46.0 fL [facility] RDW coefficient of variation 12.3 11.5 - 14.1 % [facility] Mean Platelet Volume 9.0 7.6 - 12.9 fL [facility] NRBC% auto 0.0 % [facility] NRBC Absolute 0.000 0.000 - 0.000 x10(3)/mc L [facility] Blood 12/04/2022 6:25 AM EDT 12/04/2022 6:50 AM EDT Narrative Resulting Agency Comment Spec In Lab Louie Rosario MD HEMATOLOGY ORDERABLE S Performing Organization Address City/[facility]/ZIP Co de Phone Number [facility] [place] [address] * Basic Metabolic Panel (non-fasting) (12/04/2022 6:25 AM EDT) Glucose 117 65 - 199 mg/dL [facility] Comment:Diabetes: >=200 mg/d L plus symptoms Blood Urea Nitrogen 8 8 - 18 mg/dL [facility] Creatinine 0.76 0.70 - 1.20 mg/dL [facility] Sodium 138 135 - 145 mmol/L [facility] Potassium 3.5 3.5 - 5.0 mmol/L [facility] Comment: Please note: ??Patients with WBC >100,000 may have falsely elevated Potassium levels. ??For accurate Potassium quantification in these patients send serum separator tube (gold top) for subsequent determinations. ??Contact the Clinical Chemistry Laboratory if there are any questions. Chloride 101 98 - 107 mmol/L [facility] Carbon Dioxide 27 22 - 31 mmol/L [facility] Anion Gap 10 5 - 15 mmol/L [facility] Calcium 9.3 8.5 - 10.5 mg/dL [facility] Est Glomerular Filtration Rate 89 >=60 mL/min/1. 73 m?? [facility] Comment: This patient's estimated GFR was [...] Narrative Resulting Agency Comment Spec In Lab Chauhan A Echt CHEMISTRY ORDERABLES [facility] [place] [address] * XR Cervical Spine 2 or 3 Views (12/03/2022 10:10 AM EDT) Anatomical Region Laterality Modality C-spine N/A Digital Radiogra phy Impressions 12/03/2022 4:43 PM EDT Incomplete evaluation of the fusion hardware due to patient body habitus. Consider repeat exam or CT. Thank you for letting us participate in the care of this patient. ??If you are a health care provider and have any questions regarding this report, please contact the number below. ??For patients who have questions please contact the health animal care giver that requested your imaging first. ? Electronically signed by: SHYANN CANTU MD, [facility] ([phone]), at 12/03/2022 4:43 PM Narrative 12/03/2022 4:43 PM EDT EXAMINATION: XR CERVICAL SPINE 2 OR 3 VIEWS CLINICAL HISTORY: s/p Cervicothoracic instrumentation. Please include down to T3 s/p C4-T2 PSIF TECHNIQUE: 2 views of the cervical spine COMPARISON: Cervical spine MRI 12/02/2022 FINDINGS: Partially visualized fusion of the mid to lower cervical spine which is not fully evaluated due to obscuration by the shoulder. The visualized vertebral body heights and alignment are maintained. Multilevel facet arthropathy and degenerative disc disease. Procedure Note Shyann Cantu MD - 12/03/2022 EXAMINATION: XR CERVICAL SPINE 2 OR 3 VIEWS CLINICAL HISTORY: s/p Cervicothoracic instrumentation. Please include downto T3 s/p C4-T2 PSIF TECHNIQUE: 2 views of the cervical spine COMPARISON: Cervical spine MRI 12/02/2022 FINDINGS: Partially visualized fusion of the mid to lower cervical spine which isnot fully evaluated due to obscuration by the shoulder. The visualizedvertebral body heights and alignment are maintained. Multilevel facet arthropathyand degenerative disc disease. IMPRESSION Incomplete evaluation of the fusion hardware due to patient bodyhabitus. Consider repeat exam or CT. Thank you for letting us participate in the care of this patient. If youare a health care provider and have any questions regarding this report,please contact the number below. For patients who have questions please contactthe health animal care giver that requested your imaging first. Tien Zurita MD IMG DX ORDERABLES * (ABNORMAL) Differential, Automated (12/03/2022 8:36 AM EDT) Neutrophil % 70.2 % [facility] Neutrophil Absolute 7.83(H) 1.70 - 6.10 x10(3)/mc L [facility] Lymph % 20.2 % [facility] Lymphocytes Abs 2.2 0.9 - 3.2 x10(3)/ L [facility] Monocyte % 8.6 % [facility] Monocyte Abs 1.0(H) 0.3 - 0.9 x10(3)/mc L [facility] Eos % 0.4 % [facility] Eosinophils Abs 0.0 0.0 - 0.4 x10(3)/mc L [facility] Basophil % 0.2 % [facility] Baso Absolute 0.0 0.0 - 0.1 x10(3)/mc L [facility] Immature Gran % 0.40 % [facility] Comment: Immature granulocytes(IG's)percentage and absolute count will include metamyelocytes, myelocytes, and promyelocytes. Blood smears from CBCs yielding IG's will be scanned manually for concordance. If this scan disagrees with the automated IG or if promyelocytes are noted, a manual differential will be performed. Immature Gran Absolute 0.05(H) 0.00 - 0.04 x10(3)/mc L [facility] Blood 12/03/2022 8:36 AM EDT 12/03/2022 8:57 AM EDT Narrative Resulting Agency Comment Spec In Lab Louie Rosario MD HEMATOLOGY ORDERABLE S [facility] [place] [address] * (ABNORMAL) Hemogram (12/03/2022 8:36 AM EDT) White Blood Cell 11.2(H) 4.0 - 9.5 x10(3)/mc L [facility] Red Blood Cell 3.75(L) 4.00 - 5.21 x10(6)/mc L [facility] Hemoglobin 12.1 11.7 - 15.5 g/dL [facility] Hematocrit 34.7(L) 35.7 - 45.8 % [facility] Mean Cell Volume 92.5 82.6 - 94.4 fL [facility] Mean Cell Hemoglobin 32.3(H) 27.1 - 32.0 pg [facility] Mean Cell Hemoglobin Concentration 34.9 31.7 - 35.0 g/dL [facility] Platelet 266 145 - 357 x10(3)/mc L [facility] RDW Standard Deviation 42.1 37.0 - 46.0 fL [facility] RDW coefficient of variation 12.5 11.5 - 14.1 % [facility] Mean Platelet Volume 9.3 7.6 - 12.9 fL [facility] NRBC% auto 0.0 % [facility] NRBC Absolute 0.000 0.000 - 0.000 x10(3)/ L [facility] Blood 12/03/2022 8:36 AM EDT 12/03/2022 8:57 AM EDT Narrative Resulting Agency Comment Spec In Lab Louie Rosario MD HEMATOLOGY ORDERABLE S Performing Organization Address City/[facility]/ZIP Co de Phone Number [facility] [place] [address] * (ABNORMAL) Basic Metabolic Panel (non-fasting) (12/03/2022 8:36 AM EDT) Glucose 125 65 - 199 mg/dL [facility] Comment:Diabetes: >=200 mg/d L plus symptoms Blood Urea Nitrogen 6(L) 8 - 18 mg/dL [facility] Creatinine 0.62(L) 0.70 - 1.20 mg/dL [facility] Sodium 139 135 - 145 mmol/L [facility] Potassium 4.0 3.5 - 5.0 mmol/L [facility] Comment: Please note: ??Patients with WBC >100,000 may have falsely elevated Potassium levels. ??For accurate Potassium quantification in these patients send serum separator tube (gold top) for subsequent determinations. ??Contact the Clinical Chemistry Laboratory if there are any questions. Chloride 102 98 - 107 mmol/L [facility] Carbon Dioxide 24 22 - 31 mmol/L [facility] Anion Gap 13 5 - 15 mmol/L [facility] Calcium 9.5 8.5 - 10.5 mg/dL [facility] Est Glomerular Filtration Rate 101 >=60 mL/min/1. 73 m?? [facility] Comment: This patient's estimated GFR was [...] and symptoms in addition to eGFR. Blood 12/03/2022 8:36 AM EDT 12/03/2022 8:57 AM EDT Narrative Resulting Agency Comment Spec In Lab Tien Zurita MD CHEMISTRY ORDERABLES [facility] [place] [address] * EKG 12 Lead (12/02/2022 9:02 PM EDT) Ventricular rate 92 BPM MUSE SYSTEM Atrial Rate 92 BPM MUSE SYSTEM P-R Interval 200 ms MUSE SYSTEM QRS Duration 112 ms MUSE SYSTEM Q-T Interval 378 ms MUSE SYSTEM QTC Calculated (Bezet) 467 ms MUSE SYSTEM Calculated P Albia 52 degrees MUSE SYSTEM Calculated R Albia 88 degrees MUSE SYSTEM Calculated T Albia 78 degrees MUSE SYSTEM INTERPRETATION Normal sinus rhythm T wave abnormality, consider anterior ischemia Abnormal ECG When compared with ECG of 01-DEC-2022 11:15, No significant change was found Confirmed by MD Neetu, Mark Lopez ([id number]) on 12/03/2022 3:28:25 PM MUSE SYSTEM 12/02/2022 9:02 PM EDT 12/03/2022 3:28 PM EDT Chauhan Mishel Zurita MD ECG ORDERABLES MUSE SYSTEM * XR Fluoro No Rad <1Hr - OR Use (12/02/2022 4:07 PM EDT) Narrative Dicom, Auditing User - 12/02/2022 4:07 PM EDT This exam is auto-finalizing. No interpretation was done. Chauhan Mishel Zurita MD IMG FLUORO ORDERABLE S * XR O-Arm No Rad <1Hr - OR Use (12/02/2022 4:06 PM EDT) Narrative Dicom, Auditing User - 12/02/2022 4:07 PM EDT This exam is auto-finalizing. No interpretation was done. Chauhan Mishel Zurita MD IMG FLUORO ORDERABLE S * Differential, Automated (12/02/2022 6:59 AM EDT) Neutrophil % 67.4 % [facility] Neutrophil Absolute 4.99 1.70 - 6.10 x10(3)/[facility] Lymph % 22.4 % [facility] Lymphocytes Abs 1.7 0.9 - 3.2 x10(3)/[facility] Monocyte % 7.0 % [facility] Monocyte Abs 0.5 0.3 - 0.9 x10(3)/[facility] Eos % 2.6 % [facility] Eosinophils Abs 0.2 0.0 - 0.4 x10(3)/[facility] Basophil % 0.1 % [facility] Baso Absolute 0.0 0.0 - 0.1 x10(3)/[facility] Immature Gran % 0.50 % [facility] Comment: Immature granulocytes(IG's)percentage and absolute count will include metamyelocytes, myelocytes, and promyelocytes. Blood smears from CBCs yielding IG's will be scanned manually for concordance. If this scan disagrees with the automated IG or if promyelocytes are noted, a manual differential will be performed. Immature Gran Absolute 0.04 0.00 - 0.04 x10(3)/[facility] Blood 12/02/2022 6:59 AM EDT 12/02/2022 7:19 AM EDT Narrative Resulting Agency Comment Spec In Lab Giovanna Mckeon APRN HEMATOLOGY ORDERA BLES [facility] [place] [address] * (ABNORMAL) Hemogram (12/02/2022 6:59 AM EDT) White Blood Cell 7.4 4.0 - 9.5 x10(3)/mc L [facility] Red Blood Cell 3.92(L) 4.00 - 5.21 x10(6)/ L [facility] Hemoglobin 12.7 11.7 - 15.5 g/dL [facility] Hematocrit 37.4 35.7 - 45.8 % [facility] Mean Cell Volume 95.4(H) 82.6 - 94.4 fL [facility] Mean Cell Hemoglobin 32.4(H) 27.1 - 32.0 pg [facility] Mean Cell Hemoglobin Concentration 34.0 31.7 - 35.0 g/dL [facility] Platelet 243 145 - 357 x10(3)/[facility] RDW Standard Deviation 44.6 37.0 - 46.0 fL [facility] RDW coefficient of variation 12.9 11.5 - 14.1 % [facility] Mean Platelet Volume 9.3 7.6 - 12.9 fL [facility] NRBC% auto 0.0 % [facility] NRBC Absolute 0.000 0.000 - 0.000 x10(3)/ L [facility] Blood 12/02/2022 6:59 AM EDT 12/02/2022 7:19 AM EDT Narrative Resulting Agency Comment Spec In Lab Giovanna Mckeon JACKIE HEMATOLOGY ORDERA BLES [facility] [place] [address] * Basic Metabolic Panel (non-fasting) (12/02/2022 6:59 AM EDT) Glucose 120 65 - 199 mg/dL [facility] Comment:Diabetes: >=200 mg/d L plus symptoms Blood Urea Nitrogen 8 8 - 18 mg/dL [facility] Creatinine 0.73 0.70 - 1.20 mg/dL [facility] Sodium 138 135 - 145 mmol/L [facility] Potassium 4.2 3.5 - 5.0 mmol/L [facility] Comment: Please note: ??Patients with WBC >100,000 may have falsely elevated Potassium levels. ??For accurate Potassium quantification in these patients send serum separator tube (gold top) for subsequent determinations. ??Contact the Clinical Chemistry Laboratory if there are any questions. Chloride 100 98 - 107 mmol/L [facility] Carbon Dioxide 27 22 - 31 mmol/L [facility] Anion Gap 11 5 - 15 mmol/L [facility] Calcium 9.5 8.5 - 10.5 mg/dL [facility] Est Glomerular Filtration Rate 93 >=60 mL/min/1. 73 m?? [facility] Comment: This patient's estimated GFR was [...] and symptoms in addition to eGFR. Blood 12/02/2022 6:59 AM EDT 12/02/2022 7:19 AM EDT Narrative Resulting Agency Comment Spec In Lab Tien Zurita MD CHEMISTRY ORDERABLES Performing Organization Address [facility] Co de Phone Number [facility] [place] [address] * SCAN DOC: IMPLANTABLE DEVICES (12/02/2022 12:00 AM EDT) Narrative 12/02/2022 12:00 AM EDT Ordered by an unspecified provider. Scanning Provider MEDIA MGR SCAN EXT O RDR/RSLT * Type and Screen Validity (12/01/2022 3:55 PM EDT) [facility] T&S only valid at [facility] Comment:This Type and Screen result is only valid at the [facility] Blood 12/01/2022 3:55 PM EDT 12/01/2022 4:23 PM EDT Narrative Resulting Agency Comment Spec In Lab Giovanna Mckeon JACKIE BLOOD BANK LAB OR DERABLES Performing Organization Address City/[facility]/ZIP Co de Phone Number [facility] [place] [address] * ABORH Recheck Status (12/01/2022 3:55 PM EDT) Pathologist [facility] ABORH Type Recheck Completed [facility] Blood 12/01/2022 3:55 PM EDT 12/01/2022 4:23 PM EDT Narrative Resulting Agency Comment Spec In Lab Giovanna Mckeon DIRECTOR CORPORATE BLOOD BANK LAB OR DERABLES Performing Organization Address City/[facility]/ZIP Co de Phone Number [facility] [place] [address] * Antibody screen (12/01/2022 3:55 PM EDT) Pathologist [facility] Ab Screen Interp Negative [facility] Expires at [id number] on: 12/04/2022 [facility] Blood 12/01/2022 3:55 PM EDT 12/01/2022 4:23 PM EDT Narrative Resulting Agency Comment Spec In Lab Giovanna Mckeon DIRECTOR CORPORATE BLOOD BANK LAB OR DERABLES [facility] [place] [address] * ABO/Rh Typing (12/01/2022 3:55 PM EDT) ABORH Type O Pos [facility] Blood 12/01/2022 3:55 PM EDT 12/01/2022 4:23 PM EDT Narrative Resulting Agency Comment Spec In Lab Giovanna Mckeon DIRECTOR CORPORATE BLOOD BANK LAB OR DERABLES Performing Organization Address [facility] Co de Phone Number [facility] [place] [address] * Troponin (12/01/2022 3:55 PM EDT) Pathologist [facility] Troponin-T, High Sensitivity 7 <=14 ng/L [facility] Comment: This patient's troponin T concentration was determined using the Greg 5th Generation troponin T assay. The 99th percentile for Troponin T for this test is 14 ng/L for females, and 22 ng/L for males. According to the fourth universal definition of myocardial infarction, the term acute myocardial infarction should be used when there is acute myocardial injury with clinical evidence of acute myocardial ischemia and with detection of a rise and/or fall of cardiac troponin values with at least one value above the 99th percentile and at least one of the following: - Symptoms of myocardial ischemia; - New ischemic ECG changes; - Development of pathological Q waves; - Imaging evidence of new loss of viable myocardium or new regional wall motion abnormality in a pattern consistent with an ischemic etiology; - Identification of a coronary thrombus by angiography or autopsy (not for type 2 or 3 MIs) Serial measurement of troponin and the change in troponin concentration over time (delta) is crucial for the diagnosis of acute myocardial infarction. Guidance on the interpretation of the new 5th Generation Troponin T values and the delta troponin value can be found in the [facility] Test Catalog Troponin - [facility] Test Catalog Reference: Fourth [place] Definition of Myocardial Infarction. Journal of the [place] [employer] 2018;72:1556-8994 Blood Venous Draw / Unknown 12/01/2022 3:55 PM EDT 12/01/2022 4:13 PM EDT Narrative Resulting Agency Comment Spec In Lab Twila Ahumada MD CHEMISTRY ORDERABLES Performing Organization Address City/[facility]/ZIP Co de Phone Number [facility] [place] [address] * APTT (12/01/2022 3:55 PM EDT) Partial Thromboplastin Time 30 25 - 37 sec [facility] Comment: The PTT is NOT appropriate for heparin monitoring. Use the Anti-Xa level for heparin monitoring (HEP UFH) or LMWH monitoring (HEP LMW). A PTT less than 37 seconds generally indicates adequate hemostasis. Blood 12/01/2022 3:55 PM EDT 12/01/2022 4:13 PM EDT Narrative Resulting Agency Comment Spec In Lab Giovanna Mckeon APRN HEMATOLOGY ORDERA BLES Performing Organization Address [facility] Co de Phone Number [facility] [place] [address] * Prothrombin Time (12/01/2022 3:55 PM EDT) Prothrombin Time 11.2 9.4 - 12.5 sec [facility] International Normalization Ratio 1.0 [facility] Comment: An INR <2.0 indicates adequate procoagulant activity for hemostasis in most patients without underlying bleeding disorders, though the INR may not adequately reflect hemostatic capacity in patients with liver disease and synthetic impairment. The recommended target INR range for therapeutic anticoagulation is 2.0 ? 3.0 for most applications, though lower and higher ranges may be appropriate depending on clinical circumstances. Blood 12/01/2022 3:55 PM EDT 12/01/2022 4:13 PM EDT Narrative Resulting Agency Comment Spec In Lab Giovanna Mckeon APRN HEMATOLOGY ORDERA BLES Performing Organization Address City/[facility]/ZIP Co de Phone Number [facility] [place] [address] * XR Chest PA & Lateral (Generic) (12/01/2022 11:48 AM EDT) Anatomical Region Laterality Modality Chest N/A Digital Radiogra phy Impressions 12/01/2022 12:06 PM EDT No acute findings. Thank you for letting us participate in the care of this patient. ??If you are a health care provider and have any questions regarding this report, please contact the number below. ??For patients who have questions please contact the health animal care giver that requested your imaging first. ? Electronically signed by: SHYANN CANTU MD, [facility] ([phone]), at 12/01/2022 12:06 PM Narrative 12/01/2022 12:06 PM EDT EXAMINATION: XR CHEST PA AND LATERAL (GENERIC) CLINICAL HISTORY: preop screening TECHNIQUE: PA and lateral views of the chest COMPARISON: CT chest 07/29/2022 FINDINGS: No focal opacities. Prominent vascular markings. No pneumothorax. Mediastinum is normal. Osseous structures are intact. Procedure Note Shyann Cantu MD - 12/01/2022 EXAMINATION: XR CHEST PA AND LATERAL (GENERIC) CLINICAL HISTORY: preop screening TECHNIQUE: PA and lateral views of the chest COMPARISON: CT chest 07/29/2022 FINDINGS: No focal opacities. Prominent vascular markings. No pneumothorax.Mediastinum is normal. Osseous structures are intact. IMPRESSION No acute findings. Thank you for letting us participate in the care of this patient. If youare a health care provider and have any questions regarding this report,please contact the number below. For patients who have questions please contactthe health animal care giver that requested your imaging first. Electronically signed by: SHYANN CANTU MD[facility]([phone]), at 12/01/2022 12:06 PM Tien Zurita MD IMG DX ORDERABLES * EKG 12 Lead (12/01/2022 11:15 AM EDT) Ventricular rate 72 BPM MUSE SYSTEM Atrial Rate 72 BPM MUSE SYSTEM P-R Interval 172 ms MUSE SYSTEM QRS Duration 104 ms MUSE SYSTEM Q-T Interval 406 ms MUSE SYSTEM QTC Calculated (Bezet) 444 ms MUSE SYSTEM Calculated P Albia 57 degrees MUSE SYSTEM Calculated R Albia 88 degrees MUSE SYSTEM Calculated T Albia 82 degrees MUSE SYSTEM INTERPRETATION Normal sinus rhythm T wave abnormality, consider anterior ischemia Abnormal ECG No previous ECGs available Confirmed by MD Torri, Charly ([id number]) on 12/01/2022 12:58:25 PM MUSE SYSTEM 12/01/2022 11:1 5 AM EDT 12/01/2022 12:58 PM EDT Tien Zurita MD ECG ORDERABLES MUSE SYSTEM * MRI Lumbar Spine wo Contrast (Generic) (12/01/2022 8:21 AM EDT) Anatomical Region Laterality Modality L-spine Magnetic Resonan ce Impressions 12/01/2022 9:27 AM EDT 1. ??Severe canal stenosis at C6 and C6-7 due to bulky mineralization along the posterior thecal sac. There is associated cord pressure and and signal abnormality. 2. ??Moderate to severe canal stenosis at C4-5 and moderate canal stenosis at C3-C4. 3. ??Unhealed compression fracture at T12 with mild retropulsion contributing to mild to moderate canal narrowing, mass effect on ventral nerve roots and subtle left ventral cord deformation. 4. ??Left paracentral disc protrusion at L5-S1 which may irritate the left S1 nerve roots. 5. ??No evidence for recent/unhealed fracture in the cervical or lumbar spine. 6. ??Subtle edema and sacrum, incompletely evaluated. Cannot exclude unhealed sacral insufficiency fractures. Thank you for letting us participate in the care of this patient. ??If you are a health care provider and have any questions regarding this report, please contact the number below. ??For patients who have questions please contact the health animal care giver that requested your imaging first. ? Electronically signed by: Funmilayo Marrero [facility] ([phone]), at 12/01/2022 9:27 AM Narrative 12/01/2022 9:27 AM EDT EXAMINATION: MRI THORACIC SPINE WO CONTRAST (GENERIC), MRI LUMBAR SPINE WO CONTRAST (GENERIC), MRI CERVICAL SPINE WO CONTRAST (GENERIC) CLINICAL HISTORY: s/p fall with abdominal paresthesias, c/f thoracic disc TECHNIQUE: MRI of the cervical, thoracic and lumbar spine performed without intravenous contrast administration. COMPARISON: CT Cervical, thoracic and lumbar spine 12/01/2022 , CT abdomen/pelvis 09/25/2022 FINDINGS: Cervical: Exam is marred by patient motion. No definite prevertebral soft tissue edema. No regional marrow signal abnormality. No evidence for recent fracture. Anterior lateral marginal osteophytes in the subaxial cervical spine. There is bulky mineralization in the region of the ligamentum flavum at the C6-7 level which creates severe canal stenosis. It is difficult to assess the signal of the cord at this level but there appears to be cord signal abnormality extending from C6 with superior C7 level. Disc bulges with disc calcification at C3-C4 and C4-5 contribute to moderate and moderate to severe canal stenosis at these levels. Thoracic: Probable artifactual signal in the thoracic cord at the inferior T7 level. Exaggerated midthoracic kyphosis with mild chronic anterior wedging of mid thoracic vertebrae. Bulky anterior lateral marginal osteophytes from T3 through T10, many of which are bridging. Small hemangioma within the T7 vertebral body. There is edema in the T12 vertebral body associated with acute on chronic fracture. Posterior retropulsion of the superior vertebral body in the left paracentral region indents the ventral thecal sac contributing to mild to moderate canal narrowing and mild left ventral cord deformation. Very small ventral epidural collection. Additional marrow edema within the ventral T4, T7 and T10 vertebral bodies may reflect mechanical stress. The thoracic cord is normal in signal. No additional canal stenosis. Facet and costovertebral arthropathy contribute to mild neural foraminal narrowing at T6-7, T7-8, and T8-9. Facet arthropathy contributes to mild neural foraminal narrowing at T9-10. 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 Lumbar: Exam is marred by patient motion. The conus terminates at the L1 level. No evidence for unhealed fracture in the lumbar spine. Subtle signal abnormality of the sacral ala is noted. Broad disc bulge at L2-L3 and mild disc bulges at L3-L4 and L4-L5 indent the ventral thecal sac. Facet arthropathy contributes to mild canal narrowing at L2-3. Left paracentral disc protrusion with high signal intensity zone at L5-S1 appears to contact the traversing left S1 nerve roots, contributing to focal moderate left subarticular recess narrowing. Procedure Note Funmilayo Marrero MD - 12/01/2022 EXAMINATION: MRI THORACIC SPINE WO CONTRAST (GENERIC), MRI LUMBAR SPINEWO CONTRAST (GENERIC), MRI CERVICAL SPINE WO CONTRAST (GENERIC) CLINICAL HISTORY: s/p fall with abdominal paresthesias, c/f thoracicdisc TECHNIQUE: MRI of the cervical, thoracic and lumbar spine performed withoutintravenous contrast administration. COMPARISON: CT Cervical, thoracic and lumbar spine 12/01/2022 , CT abdomen/pelvis09/25/2022 FINDINGS: Cervical: Exam is marred by patient motion. No definite prevertebral softtissue edema. No regional marrow signal abnormality. No evidence for recentfracture. Anterior lateral marginal osteophytes in the subaxial cervical spine.There is bulky mineralization in the region of the ligamentum flavum at the C6-7level which creates severe canal stenosis. It is difficult to assess the signalof the cord at this level but there appears to be cord signal abnormalityextending from C6 with superior C7 level. Disc bulges with disc calcification atC3-C4 and C4-5 contribute to moderate and moderate to severe canal stenosis atthese levels. Thoracic: Probable artifactual signal in the thoracic cord at the inferiorT7 level. Exaggerated midthoracic kyphosis with mild chronic anterior wedgingof mid thoracic vertebrae. Bulky anterior lateral marginal osteophytes fromT3 through T10, many of which are bridging. Small hemangioma within the T7 vertebral body. There is edema in the T12 vertebral body associated withacute on chronic fracture. Posterior retropulsion of the superior vertebral bodyin the left paracentral region indents the ventral thecal sac contributing tomild to moderate canal narrowing and mild left ventral cord deformation. Verysmall ventral epidural collection. Additional marrow edema within the ventralT4, T7 and T10 vertebral bodies may reflect mechanical stress. The thoracic cordis normal in signal. No additional canal stenosis. Facet and costovertebral arthropathy contribute to mild neural foraminal narrowing at T6-7, T7-8,and T8-9. Facet arthropathy contributes to mild neural foraminal narrowing atT9-10. 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 Lumbar: Exam is marred by patient motion. The conus terminates at the F2chkke. No evidence for unhealed fracture in the lumbar spine. Subtle signalabnormality of the sacral ala is noted. Broad disc bulge at L2-L3 and mild disc bulgesat L3-L4 and L4-L5 indent the ventral thecal sac. Facet arthropathycontributes to mild canal narrowing at L2-3. Left paracentral disc protrusion with highsignal intensity zone at L5-S1 appears to contact the traversing left S1 nerveroots, contributing to focal moderate left subarticular recess narrowing. IMPRESSION 1. Severe canal stenosis at C6 and C6-7 due to bulky mineralization alongthe posterior thecal sac. There is associated cord pressure and and signal abnormality. 2. Moderate to severe canal stenosis at C4-5 and moderate canal stenosisat C3-C4. 3. Unhealed compression fracture at T12 with mild retropulsioncontributing to mild to moderate canal narrowing, mass effect on ventral nerve roots andsubtle left ventral cord deformation. 4. Left paracentral disc protrusion at L5-S1 which may irritate the leftS1 nerve roots. 5. No evidence for recent/unhealed fracture in the cervical or lumbarspine. 6. Subtle edema and sacrum, incompletely evaluated. Cannot excludeunhealed sacral insufficiency fractures. Thank you for letting us participate in the care of this patient. If youare a health care provider and have any questions regarding this report,please contact the number below. For patients who have questions please contactthe health animal care giver that requested your imaging first. Electronically signed by: Funmilayo Marrero [facility]([phone]), at 12/01/2022 9:27 AM Chauhan Mishel Zurita MD [facility] ORDERABLES * MRI Thoracic Spine wo Contrast (Generic) (12/01/2022 8:21 AM EDT) Anatomical Region Laterality Modality T-spine Magnetic Resonan ce Impressions 12/01/2022 9:27 AM EDT 1. ??Severe canal stenosis at C6 and C6-7 due to bulky mineralization along the posterior thecal sac. There is associated cord pressure and and signal abnormality. 2. ??Moderate to severe canal stenosis at C4-5 and moderate canal stenosis at C3-C4. 3. ??Unhealed compression fracture at T12 with mild retropulsion contributing to mild to moderate canal narrowing, mass effect on ventral nerve roots and subtle left ventral cord deformation. 4. ??Left paracentral disc protrusion at L5-S1 which may irritate the left S1 nerve roots. 5. ??No evidence for recent/unhealed fracture in the cervical or lumbar spine. 6. ??Subtle edema and sacrum, incompletely evaluated. Cannot exclude unhealed sacral insufficiency fractures. Thank you for letting us participate in the care of this patient. ??If you are a health care provider and have any questions regarding this report, please contact the number below. ??For patients who have questions please contact the health animal care giver that requested your imaging first. ? Narrative 12/01/2022 9:27 AM EDT EXAMINATION: MRI THORACIC SPINE WO CONTRAST (GENERIC), MRI LUMBAR SPINE WO CONTRAST (GENERIC), MRI CERVICAL SPINE WO CONTRAST (GENERIC) CLINICAL HISTORY: s/p fall with abdominal paresthesias, c/f thoracic disc TECHNIQUE: MRI of the cervical, thoracic and lumbar spine performed without intravenous contrast administration. COMPARISON: CT Cervical, thoracic and lumbar spine 12/01/2022 , CT abdomen/pelvis 09/25/2022 FINDINGS: Cervical: Exam is marred by patient motion. No definite prevertebral soft tissue edema. No regional marrow signal abnormality. No evidence for recent fracture. Anterior lateral marginal osteophytes in the subaxial cervical spine. There is bulky mineralization in the region of the ligamentum flavum at the C6-7 level which creates severe canal stenosis. It is difficult to assess the signal of the cord at this level but there appears to be cord signal abnormality extending from C6 with superior C7 level. Disc bulges with disc calcification at C3-C4 and C4-5 contribute to moderate and moderate to severe canal stenosis at these levels. Thoracic: Probable artifactual signal in the thoracic cord at the inferior T7 level. Exaggerated midthoracic kyphosis with mild chronic anterior wedging of mid thoracic vertebrae. Bulky anterior lateral marginal osteophytes from T3 through T10, many of which are bridging. Small hemangioma within the T7 vertebral body. There is edema in the T12 vertebral body associated with acute on chronic fracture. Posterior retropulsion of the superior vertebral body in the left paracentral region indents the ventral thecal sac contributing to mild to moderate canal narrowing and mild left ventral cord deformation. Very small ventral epidural collection. Additional marrow edema within the ventral T4, T7 and T10 vertebral bodies may reflect mechanical stress. The thoracic cord is normal in signal. No additional canal stenosis. Facet and costovertebral arthropathy contribute to mild neural foraminal narrowing at T6-7, T7-8, and T8-9. Facet arthropathy contributes to mild neural foraminal narrowing at T9-10. 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 Lumbar: Exam is marred by patient motion. The conus terminates at the L1 level. No evidence for unhealed fracture in the lumbar spine. Subtle signal abnormality of the sacral ala is noted. Broad disc bulge at L2-L3 and mild disc bulges at L3-L4 and L4-L5 indent the ventral thecal sac. Facet arthropathy contributes to mild canal narrowing at L2-3. Left paracentral disc protrusion with high signal intensity zone at L5-S1 appears to contact the traversing left S1 nerve roots, contributing to focal moderate left subarticular recess narrowing. Procedure Note Funmilayo Marrero MD - 12/01/2022 EXAMINATION: MRI THORACIC SPINE WO CONTRAST (GENERIC), MRI LUMBAR SPINEWO CONTRAST (GENERIC), MRI CERVICAL SPINE WO CONTRAST (GENERIC) CLINICAL HISTORY: s/p fall with abdominal paresthesias, c/f thoracicdisc TECHNIQUE: MRI of the cervical, thoracic and lumbar spine performed withoutintravenous contrast administration. COMPARISON: CT Cervical, thoracic and lumbar spine 12/01/2022 , CT abdomen/pelvis09/25/2022 FINDINGS: Cervical: Exam is marred by patient motion. No definite prevertebral softtissue edema. No regional marrow signal abnormality. No evidence for recentfracture. Anterior lateral marginal osteophytes in the subaxial cervical spine.There is bulky mineralization in the region of the ligamentum flavum at the C6-7level which creates severe canal stenosis. It is difficult to assess the signalof the cord at this level but there appears to be cord signal abnormalityextending from C6 with superior C7 level. Disc bulges with disc calcification atC3-C4 and C4-5 contribute to moderate and moderate to severe canal stenosis atthese levels. Thoracic: Probable artifactual signal in the thoracic cord at the inferiorT7 level. Exaggerated midthoracic kyphosis with mild chronic anterior wedgingof mid thoracic vertebrae. Bulky anterior lateral marginal osteophytes fromT3 through T10, many of which are bridging. Small hemangioma within the T7 vertebral body. There is edema in the T12 vertebral body associated withacute on chronic fracture. Posterior retropulsion of the superior vertebral bodyin the left paracentral region indents the ventral thecal sac contributing tomild to moderate canal narrowing and mild left ventral cord deformation. Verysmall ventral epidural collection. Additional marrow edema within the ventralT4, T7 and T10 vertebral bodies may reflect mechanical stress. The thoracic cordis normal in signal. No additional canal stenosis. Facet and costovertebral arthropathy contribute to mild neural foraminal narrowing at T6-7, T7-8,and T8-9. Facet arthropathy contributes to mild neural foraminal narrowing atT9-10. 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 Lumbar: Exam is marred by patient motion. The conus terminates at the [id number]. No evidence for unhealed fracture in the lumbar spine. Subtle signalabnormality of the sacral ala is noted. Broad disc bulge at L2-L3 and mild disc bulgesat L3-L4 and L4-L5 indent the ventral thecal sac. Facet arthropathycontributes to mild canal narrowing at L2-3. Left paracentral disc protrusion with highsignal intensity zone at L5-S1 appears to contact the traversing left S1 nerveroots, contributing to focal moderate left subarticular recess narrowing. IMPRESSION 1. Severe canal stenosis at C6 and C6-7 due to bulky mineralization alongthe posterior thecal sac. There is associated cord pressure and and signal abnormality. 2. Moderate to severe canal stenosis at C4-5 and moderate canal stenosisat C3-C4. 3. Unhealed compression fracture at T12 with mild retropulsioncontributing to mild to moderate canal narrowing, mass effect on ventral nerve roots andsubtle left ventral cord deformation. 4. Left paracentral disc protrusion at L5-S1 which may irritate the leftS1 nerve roots. 5. No evidence for recent/unhealed fracture in the cervical or lumbarspine. 6. Subtle edema and sacrum, incompletely evaluated. Cannot excludeunhealed sacral insufficiency fractures. Thank you for letting us participate in the care of this patient. If youare a health care provider and have any questions regarding this report,please contact the number below. For patients who have questions please contactthe health animal care giver that requested your imaging first. Electronically signed by: Funmilayo Marrero [facility]([phone]), at 12/01/2022 9:27 AM Chauhan A Yudith [facility] MRI ORDERABLES * MRI Cervical Spine wo Contrast (Generic) (12/01/2022 8:21 AM EDT) Anatomical Region Laterality Modality C-spine Magnetic Resonan ce Impressions 12/01/2022 9:27 AM EDT 1. ??Severe canal stenosis at C6 and C6-7 due to bulky mineralization along the posterior thecal sac. There is associated cord pressure and and signal abnormality. 2. ??Moderate to severe canal stenosis at C4-5 and moderate canal stenosis at C3-C4. 3. ??Unhealed compression fracture at T12 with mild retropulsion contributing to mild to moderate canal narrowing, mass effect on ventral nerve roots and subtle left ventral cord deformation. 4. ??Left paracentral disc protrusion at L5-S1 which may irritate the left S1 nerve roots. 5. ??No evidence for recent/unhealed fracture in the cervical or lumbar spine. 6. ??Subtle edema and sacrum, incompletely evaluated. Cannot exclude unhealed sacral insufficiency fractures. Thank you for letting us participate in the care of this patient. ??If you are a health care provider and have any questions regarding this report, please contact the number below. ??For patients who have questions please contact the health animal care giver that requested your imaging first. ? Electronically signed by: Funmilayo Marrero [facility] ([phone]), at 12/01/2022 9:27 AM Narrative 12/01/2022 9:27 AM EDT EXAMINATION: MRI THORACIC SPINE WO CONTRAST (GENERIC), MRI LUMBAR SPINE WO CONTRAST (GENERIC), MRI CERVICAL SPINE WO CONTRAST (GENERIC) CLINICAL HISTORY: s/p fall with abdominal paresthesias, c/f thoracic disc TECHNIQUE: MRI of the cervical, thoracic and lumbar spine performed without intravenous contrast administration. COMPARISON: CT Cervical, thoracic and lumbar spine 12/01/2022 , CT abdomen/pelvis 09/25/2022 FINDINGS: Cervical: Exam is marred by patient motion. No definite prevertebral soft tissue edema. No regional marrow signal abnormality. No evidence for recent fracture. Anterior lateral marginal osteophytes in the subaxial cervical spine. There is bulky mineralization in the region of the ligamentum flavum at the C6-7 level which creates severe canal stenosis. It is difficult to assess the signal of the cord at this level but there appears to be cord signal abnormality extending from C6 with superior C7 level. Disc bulges with disc calcification at C3-C4 and C4-5 contribute to moderate and moderate to severe canal stenosis at these levels. Thoracic: Probable artifactual signal in the thoracic cord at the inferior T7 level. Exaggerated midthoracic kyphosis with mild chronic anterior wedging of mid thoracic vertebrae. Bulky anterior lateral marginal osteophytes from T3 through T10, many of which are bridging. Small hemangioma within the T7 vertebral body. There is edema in the T12 vertebral body associated with acute on chronic fracture. Posterior retropulsion of the superior vertebral body in the left paracentral region indents the ventral thecal sac contributing to mild to moderate canal narrowing and mild left ventral cord deformation. Very small ventral epidural collection. Additional marrow edema within the ventral T4, T7 and T10 vertebral bodies may reflect mechanical stress. The thoracic cord is normal in signal. No additional canal stenosis. Facet and costovertebral arthropathy contribute to mild neural foraminal narrowing at T6-7, T7-8, and T8-9. Facet arthropathy contributes to mild neural foraminal narrowing at T9-10. 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 Lumbar: Exam is marred by patient motion. The conus terminates at the L1 level. No evidence for unhealed fracture in the lumbar spine. Subtle signal abnormality of the sacral ala is noted. Broad disc bulge at L2-L3 and mild disc bulges at L3-L4 and L4-L5 indent the ventral thecal sac. Facet arthropathy contributes to mild canal narrowing at L2-3. Left paracentral disc protrusion with high signal intensity zone at L5-S1 appears to contact the traversing left S1 nerve roots, contributing to focal moderate left subarticular recess narrowing. Procedure Note Funmilayo Marrero MD - 12/01/2022 EXAMINATION: MRI THORACIC SPINE WO CONTRAST (GENERIC), MRI LUMBAR SPINEWO CONTRAST (GENERIC), MRI CERVICAL SPINE WO CONTRAST (GENERIC) CLINICAL HISTORY: s/p fall with abdominal paresthesias, c/f thoracicdisc TECHNIQUE: MRI of the cervical, thoracic and lumbar spine performed withoutintravenous contrast administration. COMPARISON: CT Cervical, thoracic and lumbar spine 12/01/2022 , CT abdomen/pelvis09/25/2022 FINDINGS: Cervical: Exam is marred by patient motion. No definite prevertebral softtissue edema. No regional marrow signal abnormality. No evidence for recentfracture. Anterior lateral marginal osteophytes in the subaxial cervical spine.There is bulky mineralization in the region of the ligamentum flavum at the C6-7level which creates severe canal stenosis. It is difficult to assess the signalof the cord at this level but there appears to be cord signal abnormalityextending from C6 with superior C7 level. Disc bulges with disc calcification atC3-C4 and C4-5 contribute to moderate and moderate to severe canal stenosis atthese levels. Thoracic: Probable artifactual signal in the thoracic cord at the inferiorT7 level. Exaggerated midthoracic kyphosis with mild chronic anterior wedgingof mid thoracic vertebrae. Bulky anterior lateral marginal osteophytes fromT3 through T10, many of which are bridging. Small hemangioma within the T7 vertebral body. There is edema in the T12 vertebral body associated withacute on chronic fracture. Posterior retropulsion of the superior vertebral bodyin the left paracentral region indents the ventral thecal sac contributing tomild to moderate canal narrowing and mild left ventral cord deformation. Verysmall ventral epidural collection. Additional marrow edema within the ventralT4, T7 and T10 vertebral bodies may reflect mechanical stress. The thoracic cordis normal in signal. No additional canal stenosis. Facet and costovertebral arthropathy contribute to mild neural foraminal narrowing at T6-7, T7-8,and T8-9. Facet arthropathy contributes to mild neural foraminal narrowing atT9-10. 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 Lumbar: Exam is marred by patient motion. The conus terminates at the [id number]. No evidence for unhealed fracture in the lumbar spine. Subtle signalabnormality of the sacral ala is noted. Broad disc bulge at L2-L3 and mild disc bulgesat L3-L4 and L4-L5 indent the ventral thecal sac. Facet arthropathycontributes to mild canal narrowing at L2-3. Left paracentral disc protrusion with highsignal intensity zone at L5-S1 appears to contact the traversing left S1 nerveroots, contributing to focal moderate left subarticular recess narrowing. IMPRESSION 1. Severe canal stenosis at C6 and C6-7 due to bulky mineralization alongthe posterior thecal sac. There is associated cord pressure and and signal abnormality. 2. Moderate to severe canal stenosis at C4-5 and moderate canal stenosisat C3-C4. 3. Unhealed compression fracture at T12 with mild retropulsioncontributing to mild to moderate canal narrowing, mass effect on ventral nerve roots andsubtle left ventral cord deformation. 4. Left paracentral disc protrusion at L5-S1 which may irritate the leftS1 nerve roots. 5. No evidence for recent/unhealed fracture in the cervical or lumbarspine. 6. Subtle edema and sacrum, incompletely evaluated. Cannot excludeunhealed sacral insufficiency fractures. Thank you for letting us participate in the care of this patient. If youare a health care provider and have any questions regarding this report,please contact the number below. For patients who have questions please contactthe health animal care giver that requested your imaging first. Electronically signed by: Funmilayo Marrero [facility]([phone]), at 12/01/2022 9:27 AM Giovanna Mckeon APRN IMG MRI ORDERABLE S * CT Lumbar Spine wo Contrast (Generic) (12/01/2022 12:14 AM EDT) Anatomical Region Laterality Modality L-spine Computed Tomogra phy Impressions 12/01/2022 12:53 AM EDT 1. ??Acute on chronic T12 compression fracture, with interval increase of associated height loss, now approximately 75%. Unchanged mild retropulsion of the posterior-superior fracture fragments with resulting at least mild central canal stenosis. 2. ??No acute fracture or traumatic malalignment of the lumbar spine. Thank you for letting us participate in the care of this patient. ??If you are a health care provider and have any questions regarding this report, please contact the number below. ??For patients who have questions please contact the health animal care giver that requested your imaging first. ? Electronically signed by: Elizabeth Fishman MD, [facility] ([phone]), at 12/01/2022 12:53 AM Narrative 12/01/2022 12:53 AM EDT EXAMINATION: CT THORACIC SPINE WO CONTRAST (GENERIC), CT LUMBAR SPINE WO CONTRAST (GENERIC) CLINICAL HISTORY: Mid-back pain, neuro deficit; lower back pain s/p fall TECHNIQUE: CT thoracic and lumbar spine spine performed without intravenous contrast administration. COMPARISON: MRI of the thoracic spine from September 27, 2022 CT of the abdomen and pelvis, September 25, 2022 MRI of the thoracic and lumbar spine from July 2022 FINDINGS: Thoracic spine: Exaggerated thoracic kyphosis, unchanged. Chronic T12 compression fracture, with associated 3 mm retropulsion of the posterior-superior fracture fragments into the central canal with resulting mild central canal stenosis. Interval progression of height loss, now approximately 75%, from 50% on prior study from September 2022. The other vertebral body heights are preserved. No subluxation, or dislocation. Multilevel degenerative changes are again noted with partially calcified bulky anterior marginal osteophytes as before. Paravertebral soft tissues are normal. Lumbar spine: Normal lumbar lordosis. Vertebral body heights are preserved. No acute fracture, subluxation or dislocation. Mild degenerative disc changes with small disc bulges notably at L2-L3, L4-L5 and L5-S1. Mild lower lumbar spine bilateral facet arthropathy most severe at L5-S1 and to a lesser extent at L4-L5. The sacrum is intact. Degenerative changes of the bilateral sacroiliac joints are noted with some vacuum disc phenomenon. Paravertebral soft tissues are normal. Procedure Note Elizabeth Fishman MD - 12/01/2022 EXAMINATION: CT THORACIC SPINE WO CONTRAST (GENERIC), CT LUMBAR SPINE WO CONTRAST (GENERIC) CLINICAL HISTORY: Mid-back pain, neuro deficit; lower back pain s/p fall TECHNIQUE: CT thoracic and lumbar spine spine performed without intravenouscontrast administration. COMPARISON: MRI of the thoracic spine from September 27, 2022 CT of the abdomen and pelvis, September 25, 2022 MRI of the thoracic and lumbar spine from July 2022 FINDINGS: Thoracic spine: Exaggerated thoracic kyphosis, unchanged. Chronic T12 compression fracture, with associated 3 mm retropulsion of the posterior-superior fracture fragments into the central canal withresulting mild central canal stenosis. Interval progression of height loss, nowapproximately 75%, from 50% on prior study from September 2022. The other vertebral bodyheights are preserved. No subluxation, or dislocation. Multilevel degenerativechanges are again noted with partially calcified bulky anterior marginalosteophytes as before. Paravertebral soft tissues are normal. Lumbar spine: Normal lumbar lordosis. Vertebral body heights arepreserved. No acute fracture, subluxation or dislocation. Mild degenerative disc changeswith small disc bulges notably at L2-L3, L4-L5 and L5-S1. Mild lower lumbarspine bilateral facet arthropathy most severe at L5-S1 and to a lesser extentat L4-L5. The sacrum is intact. Degenerative changes of the bilateralsacroiliac joints are noted with some vacuum disc phenomenon. Paravertebral softtissues are normal. IMPRESSION 1. Acute on chronic T12 compression fracture, with interval increase of associated height loss, now approximately 75%. Unchanged mild retropulsionof the posterior-superior fracture fragments with resulting at least mildcentral canal stenosis. 2. No acute fracture or traumatic malalignment of the lumbar spine. Thank you for letting us participate in the care of this patient. If youare a health care provider and have any questions regarding this report,please contact the number below. For patients who have questions please contactthe health animal care giver that requested your imaging first. Electronically signed by: Elizabeth Fishman MD, [facility]([phone]), at 12/01/2022 12:53 AM Giovanna Juwan Mike [facility] [place] * CT Thoracic Spine wo Contrast (Generic) (12/01/2022 12:14 AM EDT) Anatomical Region Laterality Modality T-spine Computed Tomogra phy Impressions 12/01/2022 12:53 AM EDT 1. ??Acute on chronic T12 compression fracture, with interval increase of associated height loss, now approximately 75%. Unchanged mild retropulsion of the posterior-superior fracture fragments with resulting at least mild central canal stenosis. 2. ??No acute fracture or traumatic malalignment of the lumbar spine. Thank you for letting us participate in the care of this patient. ??If you are a health care provider and have any questions regarding this report, please contact the number below. ??For patients who have questions please contact the health animal care giver that requested your imaging first. ? Electronically signed by: Elizabeth Fishman MD, [facility] ([phone]), at 12/01/2022 12:53 AM Narrative 12/01/2022 12:53 AM EDT EXAMINATION: CT THORACIC SPINE WO CONTRAST (GENERIC), CT LUMBAR SPINE WO CONTRAST (GENERIC) CLINICAL HISTORY: Mid-back pain, neuro deficit; lower back pain s/p fall TECHNIQUE: CT thoracic and lumbar spine spine performed without intravenous contrast administration. COMPARISON: MRI of the thoracic spine from September 27, 2022 CT of the abdomen and pelvis, September 25, 2022 MRI of the thoracic and lumbar spine from July 2022 FINDINGS: Thoracic spine: Exaggerated thoracic kyphosis, unchanged. Chronic T12 compression fracture, with associated 3 mm retropulsion of the posterior-superior fracture fragments into the central canal with resulting mild central canal stenosis. Interval progression of height loss, now approximately 75%, from 50% on prior study from September 2022. The other vertebral body heights are preserved. No subluxation, or dislocation. Multilevel degenerative changes are again noted with partially calcified bulky anterior marginal osteophytes as before. Paravertebral soft tissues are normal. Lumbar spine: Normal lumbar lordosis. Vertebral body heights are preserved. No acute fracture, subluxation or dislocation. Mild degenerative disc changes with small disc bulges notably at L2-L3, L4-L5 and L5-S1. Mild lower lumbar spine bilateral facet arthropathy most severe at L5-S1 and to a lesser extent at L4-L5. The sacrum is intact. Degenerative changes of the bilateral sacroiliac joints are noted with some vacuum disc phenomenon. Paravertebral soft tissues are normal. Procedure Note Elizabteh Fishman MD - 12/01/2022 EXAMINATION: CT THORACIC SPINE WO CONTRAST (GENERIC), CT LUMBAR SPINE WO CONTRAST (GENERIC) CLINICAL HISTORY: Mid-back pain, neuro deficit; lower back pain s/p fall TECHNIQUE: CT thoracic and lumbar spine spine performed without intravenouscontrast administration. COMPARISON: MRI of the thoracic spine from September 27, 2022 CT of the abdomen and pelvis, September 25, 2022 MRI of the thoracic and lumbar spine from July 2022 FINDINGS: Thoracic spine: Exaggerated thoracic kyphosis, unchanged. Chronic T12 compression fracture, with associated 3 mm retropulsion of the posterior-superior fracture fragments into the central canal withresulting mild central canal stenosis. Interval progression of height loss, nowapproximately 75%, from 50% on prior study from September 2022. The other vertebral bodyheights are preserved. No subluxation, or dislocation. Multilevel degenerativechanges are again noted with partially calcified bulky anterior marginalosteophytes as before. Paravertebral soft tissues are normal. Lumbar spine: Normal lumbar lordosis. Vertebral body heights arepreserved. No acute fracture, subluxation or dislocation. Mild degenerative disc changeswith small disc bulges notably at L2-L3, L4-L5 and L5-S1. Mild lower lumbarspine bilateral facet arthropathy most severe at L5-S1 and to a lesser extentat L4-L5. The sacrum is intact. Degenerative changes of the bilateralsacroiliac joints are noted with some vacuum disc phenomenon. Paravertebral softtissues are normal. IMPRESSION 1. Acute on chronic T12 compression fracture, with interval increase of associated height loss, now approximately 75%. Unchanged mild retropulsionof the posterior-superior fracture fragments with resulting at least mildcentral canal stenosis. 2. No acute fracture or traumatic malalignment of the lumbar spine. Thank you for letting us participate in the care of this patient. If youare a health care provider and have any questions regarding this report,please contact the number below. For patients who have questions please contactthe health animal care giver that requested your imaging first. Electronically signed by: Elizabeth Fishman MD, [facility]([phone]), at 12/01/2022 12:53 AM Giovanna Mckeon APRN [facility] * CT Head & Cervical Spine wo Contrast (Generic) (11/30/2022 9:12 PM EDT) Anatomical Region Laterality Modality Head Computed Tomogra phy Impressions 11/30/2022 9:36 PM EDT 1. ??No acute intracranial hemorrhage or calvarial fracture. 2. ??No acute fracture or traumatic malalignment of the cervical spine. 3. ??Multilevel cervical spondylosis, with chronic severe central canal narrowing at C6-C7, related to focal ligamentum flavum calcification. Thank you for letting us participate in the care of this patient. ??If you are a health care provider and have any questions regarding this report, please contact the number below. ??For patients who have questions please contact the health animal care giver that requested your imaging first. ? Electronically signed by: Elizabeth Fishman MD, [facility] ([phone]), at 11/30/2022 9:36 PM Narrative 11/30/2022 9:36 PM EDT EXAMINATION: CT HEAD AND CERVICAL SPINE WO CONTRAST (GENERIC) CLINICAL HISTORY: trauma left sided leg weakness and hand weakness known cervical spine issues. TECHNIQUE: CT head and cervical spine performed without intravenous contrast administration. COMPARISON: CT cervical spine, November 10, 2022 MRI cervical spine, September 27, 2022 CT head, September 25, 2022 FINDINGS: Head: No acute intracranial hemorrhage or extra-axial collection. Francisco-white differentiation is preserved. No mass, mass effect or midline shift. Cerebral sulci, ventricles and basal cisterns are normal. No calvarial fracture or significant extracalvarial contusion or hematoma. Orbits are normal. Paranasal sinuses and mastoid air cells are clear. C-spine: The craniocervical junction is intact. Normal cervical alignment. Vertebral body heights are preserved, without acute fracture, subluxation or dislocation. Multilevel degenerative disc changes with disc space narrowing and small partially calcified disc osteophytes. Calcification of the transverse and alar ligaments with mild pannus formation with minimal central canal narrowing at the C1-C2 level. Unchanged focal severe central canal narrowing at C6-C7 related to focal calcified ligamentum flavum. Prevertebral soft tissues are normal. No apical pneumothorax. Procedure Note Elizabeth Fishman MD - 11/30/2022 EXAMINATION: CT HEAD AND CERVICAL SPINE WO CONTRAST (GENERIC) CLINICAL HISTORY: trauma left sided leg weakness and hand weakness known cervical spine issues. TECHNIQUE: CT head and cervical spine performed without intravenous contrast administration. COMPARISON: CT cervical spine, November 10, 2022 MRI cervical spine, September 27, 2022 CT head, September 25, 2022 FINDINGS: Head: No acute intracranial hemorrhage or extra-axial collection.Francisco-white differentiation is preserved. No mass, mass effect or midline shift.Cerebral sulci, ventricles and basal cisterns are normal. No calvarial fracture or significant extracalvarial contusion orhematoma. Orbits are normal. Paranasal sinuses and mastoid air cells are clear. C-spine: The craniocervical junction is intact. Normal cervicalalignment. Vertebral body heights are preserved, without acute fracture, subluxationor dislocation. Multilevel degenerative disc changes with disc spacenarrowing and small partially calcified disc osteophytes. Calcification of thetransverse and alar ligaments with mild pannus formation with minimal central canalnarrowing at the C1-C2 level. Unchanged focal severe central canal narrowing atC6-C7 related to focal calcified ligamentum flavum. Prevertebral soft tissuesare normal. No apical pneumothorax. IMPRESSION 1. No acute intracranial hemorrhage or calvarial fracture. 2. No acute fracture or traumatic malalignment of the cervical spine. 3. Multilevel cervical spondylosis, with chronic severe central canalnarrowing at C6-C7, related to focal ligamentum flavum calcification. Thank you for letting us participate in the care of this patient. If youare a health care provider and have any questions regarding this report,please contact the number below. For patients who have questions please contactthe health animal care giver that requested your imaging first. Electronically signed by: Elizabeth Fishman MD, [facility]([phone]), at 11/30/2022 9:36 PM Calista Barrera MD [facility] * Troponin (11/30/2022 8:05 PM EDT) Pathologist [facility] Troponin-T, High Sensitivity <6 <=14 ng/L [facility] Comment: This patient's troponin T concentration was determined using the Greg 5th Generation troponin T assay. The 99th percentile for Troponin T for this test is 14 ng/L for females, and 22 ng/L for males. According to the fourth universal definition of myocardial infarction, the term acute myocardial infarction should be used when there is acute myocardial injury with clinical evidence of acute myocardial ischemia and with detection of a rise and/or fall of cardiac troponin values with at least one value above the 99th percentile and at least one of the following: - Symptoms of myocardial ischemia; - New ischemic ECG changes; - Development of pathological Q waves; - Imaging evidence of new loss of viable myocardium or new regional wall motion abnormality in a pattern consistent with an ischemic etiology; - Identification of a coronary thrombus by angiography or autopsy (not for type 2 or 3 MIs) Serial measurement of troponin and the change in troponin concentration over time (delta) is crucial for the diagnosis of acute myocardial infarction. Guidance on the interpretation of the new 5th Generation Troponin T values and the delta troponin value can be found in the [facility] Test Catalog Troponin - [facility] Test Catalog Reference: Fourth [place] Definition of Myocardial Infarction. Journal of the [place] [employer] 2018;72:8238-5269 Blood Venous Draw / Unknown 11/30/2022 8:05 PM EDT 11/30/2022 8:34 PM EDT Narrative Resulting Agency Comment Spec In Lab Twila Ahumada MD CHEMISTRY ORDERABLES [facility] [place] [address] * Differential, Automated (11/30/2022 8:05 PM EDT) Pathologist [facility] Neutrophil % 58.4 % [facility] Neutrophil Absolute 5.06 1.70 - 6.10 x10(3)/[facility] Lymph % 31.3 % [facility] Lymphocytes Abs 2.7 0.9 - 3.2 x10(3)/[facility] Monocyte % 6.8 % [facility] Monocyte Abs 0.6 0.3 - 0.9 x10(3)/[facility] Eos % 3.0 % [facility] Eosinophils Abs 0.3 0.0 - 0.4 x10(3)/[facility] Basophil % 0.2 % [facility] Baso Absolute 0.0 0.0 - 0.1 x10(3)/[facility] Immature Gran % 0.30 % [facility] Comment: Immature granulocytes(IG's)percentage and absolute count will include metamyelocytes, myelocytes, and promyelocytes. Blood smears from CBCs yielding IG's will be scanned manually for concordance. If this scan disagrees with the automated IG or if promyelocytes are noted, a manual differential will be performed. Immature Gran Absolute 0.03 0.00 - 0.04 x10(3)/[facility] Blood 11/30/2022 8:05 PM EDT 11/30/2022 8:33 PM EDT Narrative Resulting Agency Comment Spec In Lab Guido MARSHALL HEMATOLOGY ORDERABLE S [facility] [place] [address] * (ABNORMAL) Hemogram (11/30/2022 8:05 PM EDT) White Blood Cell 8.7 4.0 - 9.5 x10(3)/mc L [facility] Red Blood Cell 4.09 4.00 - 5.21 x10(6)/ L [facility] Hemoglobin 13.2 11.7 - 15.5 g/dL [facility] Hematocrit 37.7 35.7 - 45.8 % [facility] Mean Cell Volume 92.2 82.6 - 94.4 fL [facility] Mean Cell Hemoglobin 32.3(H) 27.1 - 32.0 pg [facility] Mean Cell Hemoglobin Concentration 35.0 31.7 - 35.0 g/dL [facility] Platelet 260 145 - 357 x10(3)/ L [facility] RDW Standard Deviation 42.5 37.0 - 46.0 fL [facility] RDW coefficient of variation 12.6 11.5 - 14.1 % [facility] Mean Platelet Volume 9.0 7.6 - 12.9 fL [facility] NRBC% auto 0.0 % [facility] NRBC Absolute 0.000 0.000 - 0.000 x10(3)/mc L [facility] Blood 11/30/2022 8:05 PM EDT 11/30/2022 8:33 PM EDT Narrative Resulting Agency Comment Spec In Lab Guido MARSHALL HEMATOLOGY ORDERABLE S [facility] [place] [address] * (ABNORMAL) Basic Metabolic Panel (non-fasting) (11/30/2022 8:05 PM EDT) Glucose 132 65 - 199 mg/dL [facility] Comment:Diabetes: >=200 mg/d L plus symptoms Blood Urea Nitrogen 8 8 - 18 mg/dL [facility] Creatinine 0.62(L) 0.70 - 1.20 mg/dL [facility] Sodium 133(L) 135 - 145 mmol/L [facility] Potassium 4.3 3.5 - 5.0 mmol/L [facility] Comment: Please note: ??Patients with WBC >100,000 may have falsely elevated Potassium levels. ??For accurate Potassium quantification in these patients send serum separator tube (gold top) for subsequent determinations. ??Contact the Clinical Chemistry Laboratory if there are any questions. Chloride 99 98 - 107 mmol/L [facility] Carbon Dioxide 20(L) 22 - 31 mmol/L [facility] Anion Gap 14 5 - 15 mmol/L [facility] Calcium 9.3 8.5 - 10.5 mg/dL [facility] Est Glomerular Filtration Rate 101 >=60 mL/min/1. 73 m?? [facility] Comment: This patient's estimated GFR was [...] and symptoms in addition to eGFR. Blood 11/30/2022 8:05 PM EDT 11/30/2022 8:33 PM EDT Narrative Resulting Agency Comment Spec In Lab Calista Barrera MD CHEMISTRY ORDERABLE S [facility] [place] [address] documented in this encounter Visit Diagnoses Diagnosis Cervical myelopathy- Primary Cervical spondylosis with myelopathy History of weakness of extremity Cervical myelopathy Cervical spondylosis with myelopathy Stenosis of cervical spine with myelopathy Cervical spondylosis without myelopathy Cervical spondylosis without myelopathy documented in this encounter Admitting Diagnoses Diagnosis Cervical myelopathy Cervical spondylosis with myelopathy documented in this encounter Administered Medications Inactive Administered Medications - up to 3 most recent administrations Medication Order MAR Action Action Date Dose Rate Site acetaminophen (Ofirmev) (1,000 mg/100 mL) infusion 1,000 mg 1,000 mg, Intravenous, at 400 mL/hr, Administer over 15 Minutes, ONCE, 1 dose, On Teresa 12/02/22 at 1815, Maximum dose of acetaminophen is 4,000 mg from all sources in 24 hours. When ordered for pain, acetaminophen should be given even when other ordered pain medications are indicated. , PACU Recovery, STAT, Is ketorolac (Toradol) IV contraindicated? Yes, Can this patient tolerate oral medications or suppositories? No Given 12/02/2022 5:54 PM EDT 1,000 mg 400 mL/hr acetaminophen (Tylenol) tablet 1,000 mg 1,000 mg, Oral, EVERY 6 HOURS PRN, Starting on Tue12/01/22 at 1116, Until Tue12/01/22 at 1616, Pain, mild pain (1-3), Maximum dose of acetaminophen is 4,000 mg from all sources in 24 hours. When ordered for pain, acetaminophen should be given even when other ordered pain medications are indicated. , Routine Given 12/01/2022 1:11 PM EDT 1,000 mg acetaminophen (Tylenol) tablet 975 mg 975 mg, Oral, EVERY 6 HOURS SCHEDULED, First dose (after last modification) on Tue12/06/22 at 0000, Until Discontinued, Maximum dose of acetaminophen is 4,000 mg from all sources in 24 hours. When ordered for pain, acetaminophen should be given even when other ordered pain medications are indicated. , Routine Given 12/16/2022 12:02 PM EDT 975 mg Given 12/16/2022 5:54 AM EDT 975 mg Given 12/16/2022 12:46 AM EDT 975 mg acetaminophen-codeine (Tylenol-Codeine #3) 300-30 mg per tablet 1 tablet 1 tablet, Oral, EVERY 4 HOURS PRN, Starting on Tue12/01/22 at 1615, Until Tue12/05/22 at 0232, Pain, Ask provider whether to use oxycodone or Codeine #3., Routine Given 12/03/2022 11:46 AM EDT 1 tablet Given 12/02/2022 9:31 PM EDT 1 tablet Given 12/02/2022 5:41 AM EDT 1 tablet amitriptyline (Elavil) tablet 100 mg 100 mg, Oral, NIGHTLY, First dose on Tue12/01/22 at 2100, Until Discontinued, Routine Given 12/15/2022 8:50 PM EDT 100 mg Given 12/14/2022 8:55 PM EDT 100 mg Given 12/13/2022 8:42 PM EDT 100 mg atenoloL (Tenormin) tablet 50 mg 50 mg, Oral, DAILY, First dose on Tue12/01/22 at 1118, Until Discontinued, Routine Given 12/16/2022 8:45 AM EDT 50 mg Given 12/15/2022 8:44 AM EDT 50 mg Given 12/14/2022 8:16 AM EDT 50 mg bisacodyL (Dulcolax) suppository 10 mg 10 mg, Rectal, DAILY PRN, Starting on Tue12/05/22 at 2051, Until Tue12/16/22 at 1500, Constipation, Routine Given 12/07/2022 5:43 AM EDT 10 mg calcium carbonate (TUMS) chewable tablet 500 mg 500 mg, Oral, ONCE, 1 dose, On Tue12/05/22 at 1345, Routine Given 12/05/2022 1:24 PM EDT 500 mg calcium carbonate (TUMS) chewable tablet 500 mg 500 mg, Oral, DAILY PRN, Starting on Tue12/08/22 at 1141, Until Tue12/16/22 at 1500, Heartburn, Routine Given 12/16/2022 4:34 AM EDT 500 mg Given 12/12/2022 8:43 PM EDT 500 mg Given 12/11/2022 12:26 AM EDT 500 mg ceFAZolin (Ancef) 2 g vial attach to sodium chloride 0.9% 100 mL Mini-Bag Plus 2 g, Intravenous, ONCE, 1 dose, On Teresa 12/02/22 at 2145, Administer over 30 Minutes, Initiate within 60 minutes prior to surgical incision., Day of Surgery (Day of Procedure), Indication for (Active or Suspected): Prophylaxis New Bag 12/02/2022 9:00 PM EDT 2 g 200 mL/hr dextromethorphan (Robitussin) capsule 15 mg 15 mg, Oral, EVERY 4 HOURS PRN, Starting on Tue12/05/22 at 2054, Until Tue12/16/22 at 1500, Cough, Routine Given 12/08/2022 11:59 PM EDT 15 mg diazePAM (Valium) tablet 5 mg 5 mg, Oral, EVERY 6 HOURS PRN, Starting on Tue12/03/22 at 0635, Until Tue12/16/22 at 1500, muscle spasms, Routine Given 12/16/2022 5:54 AM EDT 5 mg Given 12/15/2022 9:42 PM EDT 5 mg Given 12/15/2022 2:15 PM EDT 5 mg diclofenac (Voltaren) gel Topical (Top), 4 TIMES DAILY PRN, Pain, Starting on Tue12/14/22 at 1514, Until Tue12/16/22 at 1500, Apply topically to L shoulder. Total dose not to exceed 32 grams per day over all affected joints. Doses should be measured using the dosing cards supplied with the product., Where is this medication being applied? Please also specify in administration instructions. Other, Dose of medication being applied? 4 gram dose Given 12/15/2022 8:58 PM ED T 1 g Given 12/15/2022 8:55 AM EDT 4 g Given 12/14/2022 5:20 PM EDT 4 g docusate sodium (Colace) capsule 100 mg 100 mg, Oral, 2 TIMES DAILY, First dose on Tue12/05/22 at 2145, Until Discontinued, Routine Given 12/16/2022 8:44 AM EDT 100 mg Given 12/15/2022 8:49 PM EDT 100 mg Given 12/15/2022 8:45 AM EDT 100 mg famotidine (Pepcid) (10 mg/mL) injection 20 mg 20 mg, Intravenous, 2 TIMES DAILY, First dose on Tue12/01/22 at 1118, Until Discontinued, Routine famotidine (Pepcid) tablet 20 mg 20 mg, Oral, 2 TIMES DAILY, First dose on Tue12/01/22 at 1118, Until Discontinued, If unable to take PO, may give IV, Routine Given 12/16/2022 8:45 AM EDT 20 mg Given 12/15/2022 8:50 PM EDT 20 mg Given 12/15/2022 8:45 AM EDT 20 mg fentaNYL (pf) (50 mcg/mL) multi-dose injection 25 mcg 25 mcg, Intravenous, EVERY 5 MIN PRN, Starting on Teresa 12/02/22 at 1722, Until Teresa 12/02/22 at 2002, Pain, Mild to moderate pain (1-5 out of 10), Hold for respiratory rate less than 10 per minute. Maximum dose 200 mcg over one hour, including OR administration. If ordered with HYDROmorphone or morphine, give HYDROmorphone or morphine first and use fentaNYL for breakthrough pain., PACU Recovery, Routine Given 12/02/2022 6:12 PM EDT 50 mcg gabapentin (Neurontin) capsule 300 mg 300 mg, Oral, 3 TIMES DAILY, First dose on Tue12/01/22 at 1118, Until Discontinued, Routine Given 12/01/2022 4:06 PM EDT 300 mg Given 12/01/2022 11:55 AM EDT 300 mg gabapentin (Neurontin) capsule 300 mg 300 mg, Oral, ONCE, 1 dose, On Teresa 12/02/22 at 2145, Day of Surgery (Day of Procedure), Routine Given 12/02/2022 9:01 PM EDT 300 mg gabapentin (Neurontin) capsule 600 mg 600 mg, Oral, 3 TIMES DAILY, First dose (after last modification) on Tue12/01/22 at 2100, Until Discontinued, Routine Given 12/16/2022 8:45 AM EDT 600 mg Given 12/15/2022 8:50 PM EDT 600 mg Given 12/15/2022 2:15 PM EDT 600 mg heparin (porcine) (5,000 units/1 mL) subcutaneous injection 5,000 Units 5,000 Units, Subcutaneous, EVERY 12 HOURS SCHEDULED (2 times per day), First dose on Tue12/03/22 at 1030, Until Discontinued, Routine Given 12/16/2022 8:46 AM EDT 5,000 Units Given 12/15/2022 8:51 PM EDT 5,000 Units Given 12/15/2022 8:44 AM EDT 5,000 Units HYDROmorphone (Dilaudid) (2 mg/mL) multi-dose injection solution 0.4 mg 0.4 mg, Intravenous, EVERY 10 MIN PRN, Starting on Teresa 12/02/22 at 1724, Until Teresa 12/02/22 at 2002, Pain, For Moderate to Severe Pain (6-10 out of 10), Hold for respiratory rate less than 10 per minute. Maximum dose 3 mg over one hour including administrations in the OR. If multiple pain medications are ordered, start with HYDROmorphone or morphine and use fentaNYL for breakthrough pain., PACU Recovery, Routine Given 12/02/2022 5:37 PM EDT 0.4 mg Given 12/02/2022 5:27 PM EDT 0.4 mg ketorolac (Toradol) (15 mg/mL) injection 15 mg 15 mg, Intravenous, EVERY 6 HOURS PRN, Starting on Tue12/03/22 at 0950, Until Tue12/08/22 at 0949, Pain, Routine Given 12/06/2022 10:10 PM EDT 15 mg Given 12/06/2022 8:19 AM EDT 15 mg Given 12/05/2022 12:52 AM EDT 15 mg lactated ringers infusion 1,000 mL, at 100 mL/hr, Intravenous, CONTINUOUS, Starting on Teresa 12/02/22 at 1745, Until Teresa 12/02/22 at 2002, PACU Recovery New Bag 12/02/2022 5:48 PM EDT 1,000 mLs 100 mL/hr lidocaine (Lidoderm) 5% patch 3 patch 3 patch, Transdermal, Administer over 12 Hours, EVERY 24 HOURS, First dose on Tue12/01/22 at 1945, Until Discontinued, Apply patch(es) for 12 hours, and then remove for 12 hours., Routine Patch Applied 12/15/2022 8:51 PM EDT 3 patches 05- Back Upper (Left) Patch Applied 12/14/2022 8:58 PM EDT 3 patches 20-Other (document in comment section) Patch Applied 12/13/2022 8:41 PM EDT 3 patches 20-Other (document in comment section) lidocaine (Xylocaine) 1% (10 mg/mL) injection 30 mg 30 mg, Subcutaneous, ONCE, 1 dose, On Tue12/06/22 at 0830, For drain removal, Routine Given 12/06/2022 9:09 AM EDT 3 0 mg lisinopriL (Zestril) tablet 10 mg 10 mg, Oral, DAILY, First dose on Tue12/01/22 at 1118, Until Discontinued, Routine Given 12/01/2022 11:55 AM EDT 10 mg loratadine (Claritin) tablet 10 mg 10 mg, Oral, DAILY, First dose on Tue12/01/22 at 1118, Until Discontinued, Routine Given 12/16/2022 8:45 AM EDT 10 mg Given 12/15/2022 8:45 AM EDT 10 mg Given 12/14/2022 8:16 AM EDT 10 mg methocarbamoL (Robaxin) tablet 500 mg 500 mg, Oral, 3 TIMES DAILY PRN, Starting on Tue12/01/22 at 1114, Until Tue12/03/22 at 0636, Muscle spasms, Routine Given 12/03/2022 4:26 AM EDT 500 mg Given 12/02/2022 9:58 PM EDT 500 mg Given 12/02/2022 6:09 PM EDT 500 mg methocarbamoL (Robaxin) tablet 500 mg 500 mg, Oral, EVERY 8 HOURS, First dose (after last modification) on Tue12/03/22 at 1230, Until Discontinued, Routine Given 12/16/2022 12:30 PM EDT 500 mg Given 12/16/2022 4:30 AM EDT 500 mg Given 12/15/2022 8:30 PM EDT 500 mg nicotine (Nicoderm CQ) 21 mg/24 hr patch 21 mg 21 mg (1 patch), Transdermal, Administer over 24 Hours, DAILY, First dose on Tue12/01/22 at 1015, Until Discontinued, Apply new patch to clean, dry, hair-free skin on the upper body or upper outer arm; each patch should be applied to a different site. , Routine Patch Applied 12/16/2022 8:45 AM EDT 21 mg 09- Arm Upper (Left) Patch Applied 12/15/2022 8:47 AM EDT 21 mg 04- Shoulder (Right) Patch Applied 12/14/2022 8:15 AM EDT 21 mg 04- Shoulder (Right) nicotine (Nicoderm CQ) 21 mg/24 hr patch Patch Verification Transdermal, 2 TIMES DAILY, First dose on Tue12/01/22 at 2100, Until Discontinued, Verify nicotine 21 mg/24 hr patch nitrofurantoin (Macrobid) capsule 100 mg 100 mg, Oral, 2 TIMES DAILY, 10 doses, First dose on Tue12/04/22 at 2115, Last dose on Tue12/09/22 at 0900, DO NOT SPLIT CRUSH OR OPEN, Routine, Indication for (Active or Suspected): Urinary Tract/Pyelonephritis Given 12/09/2022 8:42 AM EDT 100 mg Given 12/08/2022 11:51 PM EDT 100 mg Given 12/08/2022 8:25 AM EDT 100 mg ondansetron (pf) (Zofran) (2 mg/mL) injection 4 mg 4 mg, Intravenous, EVERY 8 HOURS PRN, Starting on Tue12/01/22 at 1116, Until Tue12/16/22 at 1500, Nausea, If multiple antiemetics are ordered, use ondansetron first, prochlorperazine second, and metoclopramide third. PO Preferred. If patient unable to take PO, may give IV if ordered. May repeat times one in 30 minutes if ineffective. Maximum daily dose = 24 mg/24 hours ondansetron (Zofran) tablet 4 mg 4 mg, Oral, EVERY 8 HOURS PRN, Starting on Tue12/01/22 at 1116, Until Tue12/16/22 at 1500, Nausea, Vomiting, If multiple antiemetics are ordered, use ondansetron first, prochlorperazine second, and metoclopramide third. PO Preferred. If patient unable to take PO, may give IV if ordered. May repeat times one in 45 minutes if ineffective. Maximum daily dose = 24 mg/24 hours, Routine oxyCODONE (Roxicodone) tablet 10-15 mg 10-15 mg, Oral, EVERY 4 HOURS PRN, Starting on Teresa 12/02/22 at 1808, Until 12/04/22 at 0617, Pain, severe pain (7-10), Initial dose 10mg. If pain control not adequate in 60 minutes, give additional 5mg., Routine Given 12/04/2022 3:32 AM EDT 10 mg Given 12/03/2022 9:39 PM EDT 10 mg Given 12/03/2022 2:50 PM EDT 10 mg oxyCODONE (Roxicodone) tablet 10-15 mg 10-15 mg, Oral, EVERY 3 HOURS PRN, Starting on 12/04/22 at 0630, Until 12/04/22 at 0918, Pain, severe pain (7-10), Initial dose 10mg. If pain control not adequate in 60 minutes, give additional 5mg., Routine Given 12/04/2022 7:45 AM EDT 10 mg oxyCODONE (Roxicodone) tablet 10-20 mg 10-20 mg, Oral, EVERY 3 HOURS PRN, Starting on 12/04/22 at 0916, Until Teresa 12/16/22 at 1500, Pain, moderate pain (4-6), Ask provider whether to use oxycodone or Codeine #3. Initial dose 10mg. If pain control not adequate in 60 minutes, give additional 10mg., Routine Given 12/15/2022 9:05 AM EDT 20 mg Given 12/15/2022 5:31 AM EDT 15 mg Given 12/14/2022 11:32 PM EDT 15 mg oxyCODONE (Roxicodone) tablet 20-30 mg 20-30 mg, Oral, EVERY 3 HOURS PRN, Starting on 12/04/22 at 0916, Until Teresa 12/16/22 at 1500, Pain, severe pain (7-10), Ask provider whether to use oxycodone or Codeine #3. Initial dose 20mg. If pain control not adequate in 60 minutes, give additional 10mg., Routine Given 12/16/2022 12:03 PM EDT 20 mg Given 12/16/2022 8:45 AM EDT 20 mg Given 12/16/2022 4:28 AM EDT 20 mg oxyCODONE (Roxicodone) tablet 5-10 mg 5-10 mg, Oral, EVERY 4 HOURS PRN, Starting on Teresa 12/02/22 at 1808, Until 12/04/22 at 0617, Pain, moderate pain (4-6), Initial dose 5mg. If pain control not adequate in 60 minutes, give additional 5mg., Routine Given 12/02/2022 7:13 PM EDT 5 mg polyethylene glycoL (Miralax) packet 17 g 17 g, Oral, DAILY, First dose on 12/06/22 at 0900, Until Discontinued, Routine Given 12/16/2022 8:44 AM EDT 17 g Given 12/15/2022 8:48 AM EDT 17 g Given 12/13/2022 8:00 AM EDT 17 g QUEtiapine (SEROquel) tablet 100 mg 100 mg, Oral, NIGHTLY, First dose on Tue12/01/22 at 2100, Until Discontinued, Routine Given 12/15/2022 8:50 PM EDT 100 mg Given 12/14/2022 8:56 PM EDT 100 mg Given 12/13/2022 8:42 PM EDT 100 mg senna-docusate (Pericolace) 8.6-50 mg per tablet 2 tablet 2 tablet, Oral, 2 TIMES DAILY, First dose on Tue12/01/22 at 1118, Until Discontinued, Hold for loose stool. , Routine Given 12/16/2022 8:45 AM EDT 2 tablets Given 12/15/2022 8:50 PM EDT 2 tablets Given 12/15/2022 8:44 AM EDT 2 tablets sodium chloride 0.9 % (flush) (BD PosiFlush Normal Saline 0.9) flush 5 mL 5 mL, Intravenous, 2 TIMES DAILY, First dose on Tue12/01/22 at 1118, Until Discontinued, Recovery (Recovery-Hospital Unit), Routine Given 12/16/2022 8:50 AM EDT 5 mLs Given 12/15/2022 8:52 PM EDT 5 mLs Given 12/15/2022 8:56 AM EDT 5 mLs sodium chloride 0.9 % (flush) (BD PosiFlush Normal Saline 0.9) flush 5-20 mL 5-20 mL, Intravenous, EVERY 1 MIN PRN, Starting on Tue12/01/22 at 1116, Until Tue12/16/22 at 1500, flush, Flush pertains to all indwelling lines. Flush per protocol found in the job aid using the link provided on this medication record., Recovery (Recovery-Hospital Unit), Routine Given 12/04/2022 10:49 AM EDT 5 mLs sodium chloride 0.9% infusion 100 mL/hr, Intravenous, CONTINUOUS, Starting on Teresa 12/02/22 at 0630, Until Tue12/03/22 at 1126 New Bag 12/02/2022 10:07 PM EDT 100 mL/hr 100 mL/hr New Bag 12/02/2022 5:55 AM EDT 100 mL/hr 100 mL/hr sodium phosphates (FLEET) 19-7 gram/118 mL rectal enema 1 Bottle 1 Bottle, Rectal, ONCE, 1 dose, On Tue12/07/22 at 1245, Routine Given 12/07/2022 12:50 PM EDT 1 Bottle sucralfate (Carafate) tablet 1 g 1 g, Oral, 2 TIMES DAILY BEFORE MEALS, First dose on Tue12/01/22 at 1630, Until Discontinued, Routine Given 12/16/2022 8:44 AM EDT 1 g Given 12/15/2022 3:34 PM EDT 1 g Given 12/15/2022 8:44 AM EDT 1 g documented in this encounter Active and Recently Administered Medications Times are shown in EDT. Scheduled Medication Order 12/14/2022 12/15/2022 12/16/2022 acetaminophen (Tylenol) tablet 975 mg 975 mg, Oral, EVERY 6 HOURS SCHEDULED, First dose (after last modification) on Tue12/06/22 at 0000, Until Discontinued, Maximum dose of acetaminophen is 4,000 mg from all sources in 24 hours. When ordered for pain, acetaminophen should be given even when other ordered pain medications are indicated. , Routine 0551 (Given - Provider: Cristina Gan RN)1111 (Given - Provider: Mayuri Patel, OLIVIA)1726 (Given - Provider: Mayuri Patel RN)2331 (Given - Provider: Cristina Gan RN) 0531 (Given - Provider: Cristina Gan RN)1207 (Given - Provider: Mayuri Patel, OLIVIA)1820 (Given - Provider: Nicolasa Prince LPN) 0046 (Given - Provider: Cindy Morejon, OLIVIA)0554 (Given - Provider: Cindy Morejon RN)1202 (Given - Provider: Mali Forde, OLIVIA) amitriptyline (Elavil) tablet 100 mg 100 mg, Oral, NIGHTLY, First dose on Tue12/01/22 at 2100, Until Discontinued, Routine 2054 (Given - Provider: Cristina Gan RN) 2049 (Given - Provider: Cindy Morejon RN) atenoloL (Tenormin) tablet 50 mg 50 mg, Oral, DAILY, First dose on Tue12/01/22 at 1118, Until Discontinued, Routine 0816 (Given - Provider: Nicolasa Prince LPN) 0844 (Given - Provider: Nicolasa Prince LPN) 0845 (Given - Provider: Mali Forde, OLIVIA) docusate sodium (Colace) capsule 100 mg 100 mg, Oral, 2 TIMES DAILY, First dose on Tue12/05/22 at 2145, Until Discontinued, Routine 0816 (Given - Provider: Nicolasa Prince LPN)2055 (Given - Provider: Cristina Gan RN) 0845 (Given - Provider: Nicolasa Prince LPN)2048 (Given - Provider: Cindy Morejon RN) 0844 (Given - Provider: Mali Forde, OLIVIA) famotidine (Pepcid) (10 mg/mL) injection 20 mg(Linked Group 1) 20 mg, Intravenous, 2 TIMES DAILY, First dose on Tue12/01/22 at 1118, Until Discontinued, Routine 0816 (See Alternative - Provider: Nicolasa Prince LPN)2054 (See Alternative - Provider: Cristina Gan RN) 0845 (See Alternative - Provider: Nicolasa Prince LPN)2049 (See Alternative - Provider: Cindy Morejon, OLIVIA) 08 (See Alternative - Provider: Mali Forde, OLIVIA) famotidine (Pepcid) tablet 20 mg(Linked Group 1) 20 mg, Oral, 2 TIMES DAILY, First dose on Tue12/01/22 at 1118, Until Discontinued, If unable to take PO, may give IV, Routine 08 (Given - Provider: Nicolasa Prince LPN)2054 (Given - Provider: Cristina Gan RN) 08 (Given - Provider: Nicolasa Prince LPN)2049 (Given - Provider: Cindy Morejon, OLIVIA) 844 (Given - Provider: Mali Forde, OLIVIA) gabapentin (Neurontin) capsule 600 mg 600 mg, Oral, 3 TIMES DAILY, First dose (after last modification) on Tue12/01/22 at 2100, Until Discontinued, Routine 815 (Given - Provider: Nicolasa Prince LPN)1426 (Given - Provider: Mayuri Patel RN)2054 (Given - Provider: Cristina Gan RN) 08 (Given - Provider: Nicolasa Prince LPN)1414 (Given - Provider: Mayuri Patel RN)2049 (Given - Provider: Cindy Morejon, OLIVIA) 0845 (Given - Provider: Mali Forde, OLIVIA) heparin (porcine) (5,000 units/1 mL) subcutaneous injection 5,000 Units 5,000 Units, Subcutaneous, EVERY 12 HOURS SCHEDULED (2 times per day), First dose on Tue12/03/22 at 1030, Until Discontinued, Routine 0816 (Given - Provider: Nicolasa Prince LPN)2057 (Given - Provider: Cristina Gan RN) 08 (Given - Provider: Nicolasa Prince LPN)2050 (Given - Provider: Cindy Morejon, OLIVIA) 0846 (Given - Provider: Mali Forde, OLIVIA) lidocaine (Lidoderm) 5% patch 3 patch 3 patch, Transdermal, Administer over 12 Hours, EVERY 24 HOURS, First dose on Tue12/01/22 at 1945, Until Discontinued, Apply patch(es) for 12 hours, and then remove for 12 hours., Routine 0841 (Patch Removed - Provider: Nicolasa Prince LPN)2057 (Patch Applied - Provider: Cristina Gan RN - Comment: shoulders) 0858 (Patch Removed - Provider: Nicolasa Prince LPN)2050 (Patch Applied - Provider: Cindy Morejon RN) 0851 (Patch Removed - Provider: Mali Forde RN) loratadine (Claritin) tablet 10 mg 10 mg, Oral, DAILY, First dose on Tue12/01/22 at 1118, Until Discontinued, Routine 0816 (Given - Provider: Nicolasa Prince LPN) 0845 (Given - Provider: Nicolasa Prince LPN) 0845 (Given - Provider: Mali Forde RN) methocarbamoL (Robaxin) tablet 500 mg 500 mg, Oral, EVERY 8 HOURS, First dose (after last modification) on Tue12/03/22 at 1230, Until Discontinued, Routine 0417 (Given - Provider: Cristina Gan RN)1230 (Given - Provider: Mayuri Patel RN)2056 (Given - Provider: Cristina Gan RN) 0531 (Given - Provider: Cristina Gan RN)1230 (Given - Provider: Mayuri Patel RN)2030 (Given - Provider: Cindy Morejon RN) 0430 (Given - Provider: Cindy Morejon RN)1230 (Given - Provider: Mali Forde RN) nicotine (Nicoderm CQ) 21 mg/24 hr patch 21 mg(Linked Group 2) 21 mg (1 patch), Transdermal, Administer over 24 Hours, DAILY, First dose on Tue12/01/22 at 1015, Until Discontinued, Apply new patch to clean, dry, hair-free skin on the upper body or upper outer arm; each patch should be applied to a different site. , Routine 0801 (Patch Removed - Provider: Nicolasa Prince LPN)0815 (Patch Applied - Provider: Nicolasa Prince LPN) 0815 (Patch Removed - Provider: Nicolasa Prince LPN)0847 (Patch Applied - Provider: Nicolasa Prince LPN) 0845 (Patch Applied - Provider: Mali Forde RN)0847 (Patch Removed - Provider: Mali Forde RN)1259 (Due: Patch Removed - Provider: Automatic Discharge Provider - Comment: Time automatically adjusted from order being discontinued) nicotine (Nicoderm CQ) 21 mg/24 hr patch Patch Verification(Linked Group 2) Transdermal, 2 TIMES DAILY, First dose on Tue12/01/22 at 2100, Until Discontinued, Verify nicotine 21 mg/24 hr patch 0800 (Patch (dose and location) verified - Provider: Nicolasa Prince LPN - Comment: L shoulder)2100 (Patch (dose and location) verified - Provider: Cristina Gan RN) 0810 (Patch (dose and location) verified - Provider: Nicolasa Prince LPN)2099 (Patch (dose and location) verified - Provider: Cindy Morejon RN - Comment: R arm) 0855 (Patch (dose and location) verified - Provider: Mali Forde RN) polyethylene glycoL (Miralax) packet 17 g 17 g, Oral, DAILY, First dose on Tue12/06/22 at 0900, Until Discontinued, Routine 0900 (Not Given - Provider: Nicolasa Prince LPN - Reason: Patient/family refused) 0848 (Given - Provider: Nicolasa Prince LPN) 0844 (Given - Provider: Mali Forde RN) QUEtiapine (SEROquel) tablet 100 mg 100 mg, Oral, NIGHTLY, First dose on Tue12/01/22 at 2100, Until Discontinued, Routine 2055 (Given - Provider: Cristina Gan RN) 2049 (Given - Provider: Cindy Morejon RN) senna-docusate (Pericolace) 8.6-50 mg per tablet 2 tablet 2 tablet, Oral, 2 TIMES DAILY, First dose on Tue12/01/22 at 1118, Until Discontinued, Hold for loose stool. , Routine 0816 (Given - Provider: Nicolasa Prince LPN)2054 (Given - Provider: Cristina Gan RN) 0844 (Given - Provider: Nicolasa Prince LPN)2049 (Given - Provider: Cindy Morejon RN) 0845 (Given - Provider: Mali Forde, RN) sodium chloride 0.9 % (flush) (BD PosiFlush Normal Saline 0.9) flush 5 mL 5 mL, Intravenous, 2 TIMES DAILY, First dose on Tue12/01/22 at 1118, Until Discontinued, Recovery (Recovery-Hospital Unit), Routine 0818 (Given - Provider: Nicolasa Prince LPN)2057 (Given - Provider: Cristina Gan RN) 0856 (Given - Provider: Nicolasa Prince LPN)2051 (Given - Provider: Cindy Morejon, OLIVIA) 0850 (Given - Provider: Mail Forde, OLIVIA) sucralfate (Carafate) tablet 1 g 1 g, Oral, 2 TIMES DAILY BEFORE MEALS, First dose on Tue12/01/22 at 1630, Until Discontinued, Routine 0746 (Given - Provider: Nicolasa Prince LPN)1555 (Given - Provider: Mayuri Patel RN) 0844 (Given - Provider: Nicolasa Prince LPN - Comment: pt sleeping)1534 (Given - Provider: Mayuri Patel RN) 0844 (Given - Provider: Mali Forde, OLIVIA) PRN Medication Order 12/14/2022 12/15/2022 12/16/2022 bisacodyL (Dulcolax) suppository 10 mg 10 mg, Rectal, DAILY PRN, Starting on Tue12/05/22 at 2051, Until Tue12/16/22 at 1500, Constipation, Routine calcium carbonate (TUMS) chewable tablet 500 mg 500 mg, Oral, DAILY PRN, Starting on Tue12/08/22 at 1141, Until Tue12/16/22 at 1500, Heartburn, Routine 0434 (Given - Provider: Cindy Morejon, OLIVIA) dextromethorphan (Robitussin) capsule 15 mg 15 mg, Oral, EVERY 4 HOURS PRN, Starting on Tue12/05/22 at 2054, Until Tue12/16/22 at 1500, Cough, Routine diazePAM (Valium) tablet 5 mg 5 mg, Oral, EVERY 6 HOURS PRN, Starting on Tue12/03/22 at 0635, Until Tue12/16/22 at 1500, muscle spasms, Routine 2055 (Given - Provider: Cristina Gan, RN) 0530 (Given - Provider: Cristina Gan RN)1415 (Given - Provider: Mayuri Patel RN)214 (Given - Provider: Cindy Morejon, OLIVIA) 0554 (Given - Provider: Cindy Morejon, OLIVIA) diclofenac (Voltaren) gel Topical (Top), 4 TIMES DAILY PRN, Pain, Starting on Tue12/14/22 at 1514, Until Tue12/16/22 at 1500, Apply topically to L shoulder. Total dose not to exceed 32 grams per day over all affected joints. Doses should be measured using the dosing cards supplied with the product., Where is this medication being applied? Please also specify in administration instructions. Other, Dose of medication being applied? 4 gram dose 1720 (Given - Provider: Nicolasa Prince LPN) 0855 (Given - Provider: Nicolasa Prince LPN)2057 (Given - Provider: Cindy Morejon RN) hydrALAZINE (Apresoline) (20 mg/mL) injection 10 mg 10 mg, Intravenous, EVERY 1 HOUR PRN, Starting on Tue12/01/22 at 1116, Until Tue12/16/22 at 1500, High Blood Pressure, Target systolic blood pressure (SBP) less than 160 mmHg. Administer 10 mg IV. May repeat once in 15 minutes if SBP greater than target BP (caution if HR greater than 90). Use if labetaloL ineffective after 1 hour., Routine labetaloL (Normodyne) (5 mg/mL) injection solution 10-20 mg 10-20 mg, Intravenous, EVERY 1 HOUR PRN, Starting on Tue12/01/22 at 1116, Until Tue12/16/22 at 1500, High Blood Pressure, Target systolic blood pressure (SBP) less than 160 mmHg. Administer 10 mg over 2 minutes. May repeat every 15 minutes if SBP remains above goal. If inadequate effect with second 10 mg dose, then increase dose to 20 mg for subsequent dosing every 15 minutes. Dose not to exceed 300 mg per day. Hold if pulse is less than 50 beats per minute., Routine lidocaine (Xylocaine) 1% (10 mg/mL) injection 3 mg 3 mg (0.3 mL), Subcutaneous, ONCE PRN, 1 dose, Starting on Tue12/01/22 at 1116, Until Teresa 12/16/22 at 1500, for discomfort with PIV insertion, Recovery (Recovery-Hospital Unit), Routine ondansetron (pf) (Zofran) (2 mg/mL) injection 4 mg(Linked Group 3) 4 mg, Intravenous, EVERY 8 HOURS PRN, Starting on Tue12/01/22 at 1116, Until Teresa 12/16/22 at 1500, Nausea, If multiple antiemetics are ordered, use ondansetron first, prochlorperazine second, and metoclopramide third. PO Preferred. If patient unable to take PO, may give IV if ordered. May repeat times one in 30 minutes if ineffective. Maximum daily dose = 24 mg/24 hours ondansetron (Zofran) tablet 4 mg(Linked Group 3) 4 mg, Oral, EVERY 8 HOURS PRN, Starting on Tue12/01/22 at 1116, Until Teresa 12/16/22 at 1500, Nausea, Vomiting, If multiple antiemetics are ordered, use ondansetron first, prochlorperazine second, and metoclopramide third. PO Preferred. If patient unable to take PO, may give IV if ordered. May repeat times one in 45 minutes if ineffective. Maximum daily dose = 24 mg/24 hours, Routine oxyCODONE (Roxicodone) tablet 10-20 mg(Linked Group 4) 10-20 mg, Oral, EVERY 3 HOURS PRN, Starting on 12/04/22 at 0916, Until Teresa 12/16/22 at 1500, Pain, moderate pain (4-6), Ask provider whether to use oxycodone or Codeine #3. Initial dose 10mg. If pain control not adequate in 60 minutes, give additional 10mg., Routine 0417 (Given - Provider: Cristina Gan RN)0815 (Given - Provider: Nicolasa Prince LPN)1113 (See Alternative - Provider: Mayuri Patel RN)1427 (See Alternative - Provider: Mayuri Patel RN)1727 (See Alternative - Provider: Mayuri Patel RN)2055 (Given - Provider: Cristina Gan RN)2332 (Given - Provider: Cristina Gan RN) 0531 (Given - Provider: Cristina Gan RN)0905 (Given - Provider: Nicolasa Prince LPN)1207 (See Alternative - Provider: Mayuri Patel RN)1522 (See Alternative - Provider: Mayuri Patel RN)1820 (See Alternative - Provider: Nicolasa Prince LPN)2120 (See Alternative - Provider: Cindy Morejon, OLIVIA) 0047 (See Alternative - Provider: Cindy Morejon, RN)0428 (See Alternative - Provider: Cindy Morejon RN)0845 (See Alternative - Provider: Mali Forde, OLIVIA)1203 (See Alternative - Provider: Mali Forde, OLIVIA) oxyCODONE (Roxicodone) tablet 20-30 mg(Linked Group 4) 20-30 mg, Oral, EVERY 3 HOURS PRN, Starting on 12/04/22 at 0916, Until Teresa 12/16/22 at 1500, Pain, severe pain (7-10), Ask provider whether to use oxycodone or Codeine #3. Initial dose 20mg. If pain control not adequate in 60 minutes, give additional 10mg., Routine 0417 (See Alternative - Provider: Cristina Gan RN)0815 (See Alternative - Provider: Nicolasa Prince LPN)1113 (Given - Provider: Mayuri Patel RN)1427 (Given - Provider: Mayuri Patel RN)1727 (Given - Provider: Mayuri Patel RN)205 (See Alternative - Provider: Cristina Gan RN)2332 (See Alternative - Provider: Cristina Gan RN) 0531 (See Alternative - Provider: Cristina Gan RN)0905 (See Alternative - Provider: Nicolasa Prince LPN)1207 (Given - Provider: Mayuri Patel RN)1522 (Given - Provider: Mayuri Patel RN)1820 (Given - Provider: Nicolasa Prince LPN)2120 (Given - Provider: Cindy Morejon RN) 0047 (Given - Provider: Cindy Morejon, OLIVIA)0428 (Given - Provider: Cindy Morejon RN)0845 (Given - Provider: Mali Forde, RN)1203 (Given - Provider: Mali Forde, OLIVIA) sodium chloride 0.9 % (flush) (BD PosiFlush Normal Saline 0.9) flush 5-20 mL 5-20 mL, Intravenous, EVERY 1 MIN PRN, Starting on Tue12/01/22 at 1116, Until Teresa 12/16/22 at 1500, flush, Flush pertains to all indwelling lines. Flush per protocol found in the job aid using the link provided on this medication record., Recovery (Recovery-Hospital Unit), Routine Linked Groups Order Group 1: famotidine (Pepcid) tablet 20 mgJump to med 20 mg, Oral, 2 TIMES DAILY, First dose on Tue12/01/22 at 1118, Until Discontinued, If unable to take PO, may give IV, Routine Or famotidine (Pepcid) (10 mg/mL) injection 20 mgJump to med 20 mg, Intravenous, 2 TIMES DAILY, First dose on Tue12/01/22 at 1118, Until Discontinued, Routine Group 2: nicotine (Nicoderm CQ) 21 mg/24 hr patch 21 mgJump to med 21 mg (1 patch), Transdermal, Administer over 24 Hours, DAILY, First dose on Tue12/01/22 at 1015, Until Discontinued, Apply new patch to clean, dry, hair-free skin on the upper body or upper outer arm; each patch should be applied to a different site. , Routine And nicotine (Nicoderm CQ) 21 mg/24 hr patch Patch VerificationJump to med Transdermal, 2 TIMES DAILY, First dose on Tue12/01/22 at 2100, Until Discontinued, Verify nicotine 21 mg/24 hr patch Group 3: ondansetron (Zofran) tablet 4 mgJump to med 4 mg, Oral, EVERY 8 HOURS PRN, Starting on Tue12/01/22 at 1116, Until Teresa 12/16/22 at 1500, Nausea, Vomiting, If multiple antiemetics are ordered, use ondansetron first, prochlorperazine second, and metoclopramide third. PO Preferred. If patient unable to take PO, may give IV if ordered. May repeat times one in 45 minutes if ineffective. Maximum daily dose = 24 mg/24 hours, Routine Or ondansetron (pf) (Zofran) (2 mg/mL) injection 4 mgJump to med 4 mg, Intravenous, EVERY 8 HOURS PRN, Starting on 12/01/22 at 1116, Until Teresa 12/16/22 at 1500, Nausea, If multiple antiemetics are ordered, use ondansetron first, prochlorperazine second, and metoclopramide third. PO Preferred. If patient unable to take PO, may give IV if ordered. May repeat times one in 30 minutes if ineffective. Maximum daily dose = 24 mg/24 hours Group 4: oxyCODONE (Roxicodone) tablet 10-20 mgJump to med 10-20 mg, Oral, EVERY 3 HOURS PRN, Starting on 12/04/22 at 0916, Until Teresa 12/16/22 at 1500, Pain, moderate pain (4-6), Ask provider whether to use oxycodone or Codeine #3. Initial dose 10mg. If pain control not adequate in 60 minutes, give additional 10mg., Routine Or oxyCODONE (Roxicodone) tablet 20-30 mgJump to med 20-30 mg, Oral, EVERY 3 HOURS PRN, Starting on 12/04/22 at 0916, Until Teresa 12/16/22 at 1500, Pain, severe pain (7-10), Ask provider whether to use oxycodone or Codeine #3. Initial dose 20mg. If pain control not adequate in 60 minutes, give additional 10mg., Routine documented in this encounter Care Teams Community Services Officer Relationship Specialty Start Date End Date Lena Womack APRN PCP - General Family Medicine 08/02/22 documented as of this encounter
--- OUTSIDE RECORDS SUMMARY | 2024-02-12 18:06 | XMS_ITS | Encounter Summary ---
[place] [address] Care Team Providers Care Sand Mixer Operator Name Role Phone Shanta Lena Villeda APRN Primary Care Provider [phone] Encounter Details Date Type Department Care Team (Late st Contact Info) Description 12/16/2022 Telephone [place] [phone] Sudeep Womack MD [facility] [place] [address] Social History Tobacco Use Types Packs/Day Years Used Date Smoking Tobacco: Every Day Cigarettes 0.3 35 Smokeless Tobacco: Never Alcohol Use Standard Drinks/Week Comments Yes 0 (1 standard drink = 0.6 oz pur e alcohol) 1-2x a year [facility] Inpatient Questions Answer Date Recorded [...] * Telephone Encounter - Rena Tom - 12/16/2022 11:09 AM EDT Images from the original note were not included. Scheduled Xray prior to 01/[address] Zurita Pt still admitted will be on d/c paperwork Sent pt [facility] message Sudeep Womack MD P [facility] Good morning, Mrs. Carranza has a follow up appointment with Dr. Zurita for 01/17/2023. She will need a follow up cervical Xray before her visit which has been ordered. She may need her parminder removed with our clinic which would be due to come out 12/23/2022. Thank you, Sudeep documented in this encounter Plan of Treatment Upcoming Encounters Date Type Department Care Team (Late st Contact Info) Description 03/07/2024 10:00 AM EDT Appointment XRay at [address] [place] [phone] Tien Zurita MD [facility] [place] [address] 03/07/2024 10:40 AM EDT Office Visit Neurosurgery at [facility] [place] [address] Angel Hankins PA [facility] [place] [address] documented as of this encounter Visit Diagnoses Not on filedocumented in this encounter Care Teams Sand Mixer Operator Relationship Specialty Start Date End Date Lena Womack APRN PCP - General Family Medicine 08/02/22 documented as of this encounter
--- OUTSIDE RECORDS SUMMARY | 2024-02-12 18:06 | XMS_ITS | Encounter Summary ---
Author Organization [facility] [address] Care Team Providers Care Plaster Mixer Name Role Phone Shanta Lena Villeda APRN Primary Care Provider [phone] Reason for Visit * Reason Comments Follow-up Neck pain Encounter Details Date Type Department Care Team (Late st Contact Info) Description 01/17/2023 1:40 PM EDT Office Visit [place] [phone] Tien Zurita MD [facility] [place] [address] Cervical spondylosis without myelopathy; Cervical myelopathy Social History Tobacco Use Types Packs/Day Years Used Date Smoking Tobacco: Former Cigarettes 0.3 35 Smokeless Tobacco: Never Tobacco Cessation:Counseling Given: Not Answered Alcohol Use Standard Drinks/Week Comments Yes 0 (1 standard drink = 0.6 oz pur e alcohol) 1-2x a year [facility] Inpatient Questions Answer Date Recorded Does Anyone [...] - Inhaled Oxygen Concentration - - Weight 98.9 kg (218 lb) 01/17/2023 1:43 PM EDT Height 166.4 cm (5' 5.5) 01/17/2023 1:43 PM EDT Body Mass Index 35.73 01/17/2023 1:43 PM EDT documented in this encounter Progress Notes * Tien Zurita MD - 01/17/2023 1:40 PM EDT [facility] Progress Note CC: 1 month post-operative follow-up Interval History: 62 y.o. year old female, w/ severe degenerative cervical myelopathy with C6-7 OLF s/p C4-T2 PSIF with C5-7 laminectomy on 12/21/2022. Patient reports significant improvement in her strength and functional ability since discharge fromthe hospital. She reports she has been recently able to go up a flight of stairs by herself, with use of a handrail. She endorses ongoing left upper extremity and bilateral lower extremity numbness and weakness, but overall significantly improved. She is able to ambulate with a walker for moderate distances, but uses a wheelchair for longer distances such as getting into the appointment today. She does endorse ongoing neck pain and muscle spasms. She also endorses worsening of her lower back pain. She denies any new numbness, new weakness, bowel bladder incontinence, fevers, chills, swelling or drainage from the incision site. Physical Exam Patient reported measures: Pain:7 Physical Health:Good EXAM: NAD, AAOx3 Gait ataxic, but able to walk with minimal one-person assist Delt Bic Tri Gri Intr RT 5 5 5 5 5 LT 5 5 5 4+ 4+ Ilio Quad TibA EHL Gastroc RT 5 5 5 5 5 LT 4+ 4+ 5 5 5 Sensation intact to light touch, except for left hand and bilateral anterior thighs Posterior cervical incision well-healed, no erythema, tenderness to palpation, or palpable collections Imaging independently reviewed: AP, lateral, and swimmer's view demonstrate intact hardware from C4-T2 without evidence of screw lucency or hardware failure. Overall alignment is well-maintained. ASSESSMENT AND PLAN 62 y.o. year old female, w/ severe degenerative cervical myelopathy with C6-7 OLF s/p C4-T2 PSIF with C5-7 laminectomy 1 month prior with significant improvement in her strength and ability to walk and perform stairs. Patient was encouraged to continue her aggressive physical therapy. She still has home PT coming christy regular basis. She endorses weight gain, and she was encouraged to cut back on calorie intake, specifically excess from sweets and sodas. I expect her lower back pain to improve with further weightloss and increased mobility. I requested the patient follow-up again in 2 months with repeat x-rays at that time. Tien Zurita MD Department of Neurosurgery documented in this encounter Plan of Treatment Upcoming Encounters Date Type Department Care Team (Late st Contact Info) Description 03/07/2024 10:00 AM EDT Appointment XRay at [address] [place] [address] Tien Zurita MD [facility] [place] [address] 03/07/2024 10:40 AM EDT Office Visit [facility]surgery at [facility] [place] [address] Angel Hankins PA [facility] [place] [address] documented as of this encounter Results * [...] who have questions please contact the health customer care professional that requested your imaging first. ? Electronically signed by: Svetlana Wellington MD, [facility] ([phone]), at 03/14/2023 2:08 PM Narrative 03/14/2023 2:08 [...] patients who have questions please contactthe health customer care professional that requested your imaging first. Electronically signed by: Svetlana Wellington MD, [facility]([phone]), at 03/14/2023 2:08 PM Chauhan A Echt IMG DX ORDERABLES documented in this encounter Visit Diagnoses Diagnosis Cervical spondylosis without myelopathy Cervical myelopathy Cervical spondylosis with myelopathy Cervical myelopathy Cervical spondylosis with myelopathy documented in this encounter Care Teams Plaster Mixer Relationship Specialty Start Date End Date Lena Womack, ALIGNMENT MECHANIC PCP - General Family Medicine 08/02/22 documented as of this encounter
--- NOTE | 2024-02-12 18:07 | DI.VRAD_ITS ---
PROCEDURE INFORMATION: Exam: XR Left Shoulder Exam date and time: 02/12/2024 5:03 PM Age: 63 years old Clinical indication: Shoulder; Patient HX: Left arm pain TECHNIQUE: Imaging protocol: Radiologic exam of the left shoulder. Views: 2 or more views. COMPARISON: CR XR CERVICAL SP LO TRAUMA 2-3V 01/05/2023 9:13 AM FINDINGS: Bones/joints: Anterior inferior dislocation of the humeral head from the glenoid. Displaced fracture of the humeral greater tuberosity consistent with a Hill-Sachs fracture process. No definable glenoid fracture. Severe AC joint degenerative disease. Previous multilevel cervical spine fusion and laminectomies. Soft tissues: Normal. IMPRESSION: Anterior inferior glenohumeral dislocation with displaced greater tuberosity Hill-Sachs fracture. Dictated and Authenticated by: Bobo Nieves MD. Ordering:CONCHITA Hernadez MD
--- OUTSIDE RECORDS SUMMARY | 2024-02-12 18:07 | XMS_ITS | Encounter Summary ---
[place] [address] Care Team Providers Care Script Writer Name Role Phone Lena Womack APRN Primary Care Provider [phone] Reason for Referral * Consultation (Routine) - Closed Specialty Diagnoses / Procedures Referred By Contac t Referred To Contact [facility] Diagnoses Lumbar disc herniation with radiculopathy Lena Womack APRN [address] [place] [address] [facility] [place] [address] Referral ID Status Reason Start Date Expiration Date V isits Requested Visits Authorized [id number] Closed Consult, Test & Treat PCP Updated and/or Approved 08/24/2022 08/24/2023 1 1 Encounter Details Date Type Department Care Team (Latest Contact Info) Description 08/24/2022 Transcribe Orders eDH Incoming Referrals [phone] Lena Womack APRN [address] [place], [place] [id number] Lumbar disc herniation with radiculopathy Social History Tobacco Use Types Packs/Day Years Used Date Smoking Tobacco: Every Day Cigarettes 0.3 35 Smokeless Tobacco: Never Alcohol Use Standard Drinks/Week Comments Not Currently 0 (1 standard drink = 0.6 oz pur e alcohol) 1-2x a year Sex and Gender Information Value Date Recorded Sex Assigned at Not on file Gender Identity Not on file Sexual Orientation Not on file documented as of this encounter Plan of Treatment Upcoming Encounters Date Type Department Care Team (Late st Contact Info) Description 03/07/2024 10:00 AM EDT Appointment XRay at [address] [place] [address] Tien Zurita MD [facility] [place] [address] 03/07/2024 10:40 AM EDT Office Visit Neurosurgery at [facility] [place] [phone] Angel Hankins PA [facility] [place] [place] [address] Scheduled Referrals Name Type Priority Associated Diagnoses Orde r Schedule Referral to Pain Management Outpatient Referral Routine Lumbar disc herniation with radiculopathy Ordered: 08/24/2022 documented as of this encounter Visit Diagnoses Diagnosis Lumbar disc herniation with radiculopathy Displacement of lumbar intervertebral disc without myelopathy documented in this encounter Care Teams Script Writer Relationship Specialty Start Date End Date Lena Womack APRN PCP - General Family Medicine 08/02/22 documented as of this encounter
--- OUTSIDE RECORDS SUMMARY | 2024-02-12 18:07 | XMS_ITS | Encounter Summary ---
Author Organization [facility] [place] [address] Care Team Providers Care Reservations And Ticketing Agent Name Role Phone Lena Womack Ronal MEJIA Primary Care Provider [phone] Encounter Details Date Type Department Care Team (Late st Contact Info) Description 09/25/2022 11:05 AM EDT Ancillary Procedure Radiology Library at [facility] [place] [phone] Ridge Duenas MD [facility] [place] [address] Social History Tobacco Use Types Packs/Day Years [...] 03/07/2024 10:00 AM EDT Appointment XRay at [address] [place] [phone] Tien Zurita MD [facility] [place] [address] 03/07/2024 10:40 AM EDT Office [place] [address] Angel Hankins PA [facility] [place] [address] documented as of this encounter Procedures Procedure Name Priority Date/Time Associated Diagnosis Comments FILM LIBRARY STORAGE ONLY CT SPINE Routine 09/25/2022 10:57 AM EDT documented in this encounter Results * Film Library- Storage Only CT Spine (09/25/2022 10:57 AM EDT) Narrative [facility] - 09/25/2022 10:57 AM EDT This exam is auto-finalizing. It's purpose is for storage only. Ridge Duenas MD [facility] FILM LIBRARY ORD ERABLES Performing Organization Address City/State/[facility] Co de Phone Number [place], [place] documented in this encounter Visit Diagnoses Not on filedocumented in this encounter Care Teams Reservations And Ticketing Agent Relationship Specialty Start Date End Date Lena Womack APRN PCP - General Family Medicine 08/02/22 documented as of this encounter
--- OUTSIDE RECORDS SUMMARY | 2024-02-12 18:07 | XMS_ITS | Encounter Summary ---
Author Organization [facility] [place] [address] Care Team Providers Care Rocket Assembly Operator Name Role Phone Shanta Lena Villeda APRN Primary Care Provider [phone] Reason for Visit * Reason Comments Post Op Encounter Details Date Type Department Care Team (Late st Contact Info) Description 08/16/2022 10:00 AM EDT Office Visit Gy[place] [phone] Antonio Rojas MD [facility] [place] [address] Serous adenofibroma of left ovary Social History Tobacco Use Types Packs/Day Years Used Date Smoking Tobacco: Every Day Cigarettes 0.3 35 Smokeless Tobacco: Never Tobacco Cessation:Ready to Q uit: Not Asked; Counseling Given: Not Answered Alcohol Use Standard Drinks/Week Comments Not Currently 0 (1 standard drink = 0.6 oz pur e alcohol) 1-2x a year Sex and Gender Information Value Date Recorded Sex Assigned at Not on file Gender Identity Not on file Sexual Orientation Not on file documented as of this encounter Last Filed Vital Signs Vital Sign Reading Time Taken Comments Blood Pressure 134/65 08/16/2022 10:23 AM EDT Pulse 78 08/16/2022 10:23 AM EDT Temperature 37 ??C (98.6 ??F) 08/16/2022 10: 23 AM EDT Respiratory Rate 20 08/16/2022 10:2 3 AM EDT Oxygen Saturation 95% 08/16/2022 10: 23 AM EDT Inhaled Oxygen Concentration - - Weight 103.4 kg (227 lb 14.4 oz) 2022 10:23 AM EDT Height 166.4 cm (5' 5.5) 08/16/2022 10 :23 AM EDT Body Mass Index 37.35 08/16/2022 10:23 AM EDT documented in this encounter Progress Notes * Antonio Rojas MD - 08/16/2022 10:00 AM EDT Division [place] [address] Gynecologic Oncology-Clinic Note Reason for visit: Postop check, staple removal. Patient Active Problem List Diagnosis Code ??? Breast hypertrophy N62 ??? Neck pain on left side M54.2 ??? Cervical spondylosis without myelopathy M47.812 ??? Cervical disc displacement M50.20 ??? Cervical radiculitis M54.12 ??? Occipital neuralgia M54.81 ??? Knee pain, bilateral M25.561, M25.562 ??? Osteoarthritis of patellofemoral joint M17.10 ??? Carpal tunnel syndrome, bilateral G56.03 ??? Trigger thumb of left hand M65.312 ??? Primary osteoarthritis of right knee M17.11 ??? Adnexal mass N94.89 ??? Moderate opioid use disorder F11.20 ??? Thoracic compression fracture, sequela S22.000S ??? Herniation of lumbar intervertebral disc with radiculopathy M51.16 ??? 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 Authorizing Provider oxyCODONE (Roxicodone) 5 mg Tablet Take 1 tablet by mouth every 4 hours as needed for Pain (Severe pain (8-10)). 08/12/22 Yes Antonio Rojas MD pantoprazole EC (Protonix) 40 mg Tablet, Delayed Release (E.C.) Take 1 tablet by mouth 2 times daily. 08/08/22 Yes Sharon Tse MD acetaminophen (Tylenol) 325 mg Tablet Take 2 tablets by mouth every 6 hours. 08/08/22 Yes Jose Ramon Hernandez MD ibuprofen (Advil) 600 mg Tablet Take 1 tablet by mouth every 6 hours. 08/08/22 Yes Jose Ramon Hernandez MD lisinopriL (Zestril) 10 mg Tablet Take 1 tablet by mouth daily. 08/09/22 Yes Jose Ramon Hernandez MD polyethylene glycoL (Miralax) 17 gram Powder in Packet Take 17 g by mouth daily. 08/09/22 Yes Jose Ramon Hernandez MD senna-docusate (Pericolace) 8.6-50 mg Tablet Take 2 tablets by mouth 2 times daily as needed for Constipation. 08/08/22 Yes Jose Ramon Hernandez MD amitriptyline (ELAVIL) 100 mg Tablet Take 100 mg by mouth nightly. Yes PROVIDER, HISTORICAL Miscellaneous Medical Supply [facility] Bilateral wrist splints for CTS 02/24/15 Yes Daniela Monsalve MD gabapentin (NEURONTIN) 300 mg Capsule Take 300 mg by mouth 3 times daily. Yes PROVIDER, HISTORICAL baclofen (LIORESAL) 10 mg tablet Take 10 mg by mouth 3 times daily. Yes PROVIDER, HISTORICAL QUEtiapine (SEROQUEL) 25 mg tablet Take 100 mg by mouth nightly. Yes PROVIDER, HISTORICAL multivitamin (THERAGRAN) tablet Take 1 tablet by mouth daily. Yes PROVIDER, HISTORICAL atenolol (TENORMIN) 50 mg tablet Take 50 mg by mouth daily. Yes PROVIDER, HISTORICAL cyclobenzaprine (FLEXERIL) 10 mg tablet Take 10 mg by mouth 3 times daily as needed. Yes PROVIDER, HISTORICAL naloxone (Narcan) 4 mg/actuation [place], Non-Aerosol 1 each by Nasal route as needed. Patient not taking: Reported on 08/16/2022 08/08/22 Sharon Tse MD dihydroergotamine (MIGRANAL) 0.5 mg/pump act. (4 mg/mL) [place], Non-Aerosol One spray per nostril, while holding the opposite nostril closed. Wait 15 minutes then repeat (total of 4 sprays - 2 per nostril). Patient not taking: Reported on 08/16/2022 03/29/16 Daniela Monsalve MD OnabotulinumtoxinA (BOTOX) 200 unit Recon Soln Inject 155 Units as directed Every 12 weeks. Indications: Migraine Prevention PROVIDER, HISTORICAL hydrOXYzine (VISTARIL) 25 mg Capsule Take 1 capsule by mouth 2 times daily as needed (for Mild to moderate headaches - can be taken with Naproxen sodium). Patient not taking: Reported on 08/16/2022 02/24/15 Daniela Monsalve MD promethazine (PHENERGAN) [address] 1-2 suppositories rectally every 6 hours as needed(Nausea with headache). Patient not taking: Reported on 08/16/2022 02/24/15 Daniela Monsalve MD tiZANidine (ZANAFLEX) 4 mg Tablet Take 4 mg by mouth daily. PROVIDER, HISTORICAL estradiol (ESTRACE) 1 mg tablet Take 1 mg by mouth daily. PROVIDER, HISTORICAL ketoconazole (NIZORAL) 2 % cream Apply topically as needed. PROVIDER, HISTORICAL History of present illness: HPI/Surgical Indications: Katheryn is a 61-year-old woman who presented urgently to the emergency room with a complex pain syndrome. Imaging was performed, showing a left ovarian cystic neoplasm, consistent with a cystadenoma, cystadenofibroma or cystadenocarcinoma of the left ovary. Her tumor markers were normal. For both diagnostic and therapeutic intention, we recommend ed removal of this left ovarian lesion. On 08/02/2022, we performed a diagnostic laparoscopy, but then converted to laparotomy due to the size, consistency, adherence and location of the cyst of the left ovary to excise it. Intraoperative findings were remarkable for the following: Findings: 1. Exam under anesthesia: Normal external genitalia. Cervix was palpably absent. The abdomen was obese. The cystic lesion was not palpable due to her obesity and body habitus. 2. Diagnostic laparoscopy: Normal upper abdomen, without carcinomatosis or ascites. The ovarian cyst was along the left pelvic sidewall and pelvic floor, with the sigmoid colon and its associated mesentery overlying it, densely adherent to it. Due to this, we could not continue laparoscopically andconverted to laparotomy. 3. Laparotomy: Again, no carcinomatosis or ascites. The uterus, right tube and ovary, and much of the left fallopian tube were surgically absent. The left ovary was involved with a 17-18 cm cystic lesion which was densely adherent to the pelvic floor, sidewall, and the overlying sigmoid mesentery peritoneum. It was removed intact. Upon opening after surgery, it had several fibrous areas consistent with ovarian fibromas, firm nodular excrescences within, consistent with cystadenofibroma. There were no concern for malignancy. 4. Frozen section: Not performed. Her postoperative course was remarkable for slow return of bowel function, use of narcotics relatedto pain, which is likely related to pre-existing back pain and musculoskeletal pain, which were notrelated to the procedure/mass itself. Today, she returns for staple removal. She was given a small refill of oxycodone due to breakthrough pain. She notes some pain with her incision, but also has back pain, radicular pain as well. She has pending evaluations for her back pain. She reports good appetite, normal bowel bladder function. She has had some drainage from her incision and voiced some concern about it. She is using an abdominal binder. Unfortunately, she has not been able to engage in smoking cessation. Review of systems: 6 systems in total reviewed, otherwise negative. Vital signs: BP 134/65 (Patient Position: Sitting) Pulse 78 Temp 37 ??C (98.6 ??F) (Temporal) Resp 20 Ht 166.4 cm (5' 5.5) Wt 103.4 kg (227 lb 14.4 oz) SpO2 95% BMI 37.35 kg/m?? Physical examination: General: Unhealthy looking, very overweight woman, well-groomed and dressed. She is able to ambulate to and from the examination table. Abdomen: The vertical incision is approximated with parminder. There is some erythema and slight drainage at the midline of the incision. The parminder were removed and Steri-Strips were replaced. There is no significant dehiscence of the skin during this procedure. Pathology: Surgical Pathology DIAGNOSIS A - Left ovary and portion of fallopian tube (salpingo-oophorectomy): - Left ovary: Serous cystadenofibroma, 14.5 cm, see discussion. Electronically signed by: Rosaura Hernandez MD Verified: 08/11/2022 9:33 Pathologist Performed at: -[facility] Dept. of Pathology, [place] [address] Novelties Sales Representative: Ernestina Valenzuela MD, AP, [facility] Certificate: [id number] DISCUSSION Definitive fallopian tube tissue was not identified in the specimen. Clinical correlation is Recommended. Impression/plan: Katheryn is a 61-year-old woman who underwent laparotomy to remove a large benign ovarian cystic lesion. Her postoperative course was complicated by radicular musculoskeletal pain. She also has some slight erythema at her incision with slight drainage. Her morbid obesity and continuedsmoking behavior increases her risk of postoperative wound problems including poor healing or infection. Precautions were given today. She will contact us if she has any increase in drainage, separation of the incision or other concerns otherwise, appointments will be on an as-needed basis at this point. Today, she is given a copy of her operative report, as well as the pathology report, with an explanation regarding her benign findings. documented in this encounter Plan of Treatment Upcoming Encounters Date Type Department Care Team (Late st Contact Info) Description 03/07/2024 10:00 AM EDT Appointment XRay at [address] [place] [address] Tien Zurita MD [facility] [place] [address] 03/07/2024 10:40 AM EDT Office [place] [address] Angel Hankins PA [facility] [place] [address] documented as of this encounter Visit Diagnoses Diagnosis Serous adenofibroma of left ovary documented in this encounter Care Teams Rocket Assembly Operator Relationship Specialty Start Date End Date Lena Womack APRN PCP - General Family Medicine 08/02/22 documented as of this encounter
--- OUTSIDE RECORDS SUMMARY | 2024-02-12 18:07 | XMS_ITS | Encounter Summary ---
Author Organization [facility] [place] [address] Care Team Providers Care Teacher Asst Name Role Phone Lena Womack Ronal MEJIA Primary Care Provider [phone] Encounter Details Date Type Department Care Team (Late st Contact Info) Description 09/25/2022 11:10 AM EDT Ancillary Procedure Radiology Library at [facility] [place] [phone] Ridge Duenas MD [facility] [place] [address] Social History Tobacco Use Types Packs/Day Years [...] 03/07/2024 10:00 AM EDT Appointment XRay at [address] [place] [phone] Tien Zurita MD [facility] [place] [address] 03/07/2024 10:40 AM EDT Office [place] [address] Angel Hankins PA [facility] [place] [address] documented as of this encounter Procedures Procedure Name Priority Date/Time Associated Diagnosis Comments FILM LIBRARY STORAGE ONLY CT HEAD AND SPINE Routine 09/25/2022 10:58 AM EDT documented in this encounter Results * Film Library- Storage Only CT Head And Spine (09/25/2022 10:58 AM EDT) Narrative [facility] - 09/25/2022 10:58 AM EDT This exam is auto-finalizing. It's purpose is for storage only. Ridge Duenas MD [facility] FILM LIBRARY ORD ERABLES Performing Organization Address City/State/[facility] Co de Phone Number [place], [place] documented in this encounter Visit Diagnoses Not on filedocumented in this encounter Care Teams Teacher Asst Relationship Specialty Start Date End Date Lena Womack APRN PCP - General Family Medicine 08/02/22 documented as of this encounter
--- OUTSIDE RECORDS SUMMARY | 2024-02-12 18:07 | XMS_ITS | Encounter Summary ---
Author Organization [facility] [place] [address] Care Team Providers Care Clothes Presser Name Role Phone BrunoLena eddy Ronal MEJIA Primary Care Provider [phone] Encounter Details Date Type Department Care Team (Latest Contact Info) Description 11/03/2022 Travel Social History Tobacco Use Types Packs/Day [...] 10:00 AM EDT Appointment XRay at [address] [place] [address] Tien Zurita MD [facility] [place] [address] 03/07/2024 10:40 AM EDT Office Visit Neurosurgery at [facility] [place] [phone] Angel Hankins PA [facility] [place] [address] documented as of this encounter Visit Diagnoses Not on filedocumented in this encounter Care Teams Clothes Presser Relationship Specialty Start Date End Date Lena Womack APRN PCP - General Family Medicine 08/02/22 documented as of this encounter
--- OUTSIDE RECORDS SUMMARY | 2024-02-12 18:07 | XMS_ITS | Encounter Summary ---
Author Organization [facility] [place] [address] Care Team Providers Care As400 Administrator Name Role Phone BrunoLena eddy Ronal MEJIA Primary Care Provider [phone] Encounter Details Date Type Department Care Team (Latest Contact Info) Description 08/16/2022 Travel Social History Tobacco Use Types Packs/Day [...] 03/07/2024 10:00 AM EDT Appointment XRay at [address] [place] [address] Tien Zurita MD [facility] [place] [address] 03/07/2024 10:40 AM EDT Office Visit Neurosurgery at [facility] [place] [phone] Angel Hankins PA [facility] [place] [address] documented as of this encounter Visit Diagnoses Not on filedocumented in this encounter Care Teams As400 Administrator Relationship Specialty Start Date End Date Lena Womack APRN PCP - General Family Medicine 08/02/22 documented as of this encounter
--- OUTSIDE RECORDS SUMMARY | 2024-02-12 18:07 | XMS_ITS | Encounter Summary ---
Author Organization [facility] Address [facility] [place] [address] Care Team Providers Care Head Orthopedic Team Physician Name Role Phone Lena Womack APRN Primary Care Provider [phone] Reason for Visit * Consultation (Urgent) - Closed Specialty Diagnoses / Procedures Referred By Cosmo cortez Referred To Contact Neurosurgery Diagnoses Herniation of lumbar intervertebral disc with radiculopathy Cervical disc disease with myelopathy Urinary retention Lena Womack APRN [address] [place] [address] [facility] Neurosurgery [address] [place] [phone] Referral ID Status Reason Start Date Expiration Date V isits Requested Visits Authorized [id number] Closed Consult, Test & Treat PCP Updated and/or Approved 10/04/2022 10/04/2023 12 12 Encounter Details Date Type Department Care Team (Late st Contact Info) Description 11/03/2022 3:00 PM EDT [place] [address] Tien Zurita MD [facility] [place] [address] Stenosis of cervical spine with myelopathy Social History Tobacco Use Types Packs/Day [...] Sign Reading Time Taken Comments Blood Pressure 125/80 11/03/2022 3:02 PM EDT Pulse 77 11/03/2022 3:02 PM EDT Temperature 36.3 ??C (97.3 ??F) 11/03/2022 3:02 PM ED T Respiratory Rate 17 11/03/2022 3:02 PM EDT Oxygen Saturation 97% 11/03/2022 3:02 PM EDT Inhaled Oxygen Concentration - - Weight 104.3 kg (230 lb) 11/03/2022 3:02 PM EDT Height 166.4 cm (5' 5.51) 11/03/2022 3:02 PM ED T Body Mass Index 37.68 11/03/2022 3:02 PM EDT documented in this encounter Progress Notes * Tien Zurita MD - 11/03/2022 3:00 PM EDT [facility] Neurosurgery Clinic New Patient CHIEF COMPLAINT: Hand and leg weakness History Obtained From: the patient This patient is accompanied in the office by her . Referred by: Lena Womack APRN [address] [place] [address] HISTORY OF PRESENT ILLNESS: Katheryn Carranza is a 62 y.o. female with significant past medical history of obesity (BMI 38) who presents with progressive worsening of leg and arm weakness. Patient reports she had a ground-level fall in July and since then has noted significant progression of her symptoms since this event. She reports she has numbness from the waist down, feeling off balance and weak in the legs requiring use of a walker to ambulate overall supports her weight using the españa or other objects. She is not able to climb stairs on her own even with use of the handrail. She has difficulty picking up her legs, and this is worse on the left. She was also noticed numbness in both upper extremities, left is worse than the right, distributed across the lateral forearm and fifth digit. She also feels significantly weak in the hands, again the left is worse than right, and is unable to button buttons but is able to eat with a spoon. She is not able to use a fork and knife due to the severe dysfunction in her left hand. She endorses increased urinary urgency and frequency, reporting she often starts urinating before she is able to sit down on the toilet. She endorses moderate to severe neck pain that isworse with movement, 8/10 in severity. She does not have any severe radiating arm pain. She also describes severe lower to mid back pain that is worse with standing and worse with movement, but no radiating leg pain. Treatments thus far: Patient has tried physical therapy in the past for her lower back. Previous Spine Surgeries (including dates and surgeon): None Past Medical History: Past Medical History: Diagnosis Date ??? ADD (attention deficit disorder) ??? Depression ??? ARCHANA (generalized anxiety disorder) ??? Headache ??? Hypertension ??? Neck pain on left side 07/04/2012 ??? Thoracic compression fracture, sequela 08/03/2022 ??? Tobacco abuse Past Surgical History: Past Surgical History: Procedure Laterality Date ??? BREAST REDUCTION SURGERY Bilateral 12/2011 ??? HYSTERECTOMY ??? PRO BREAST REDUCTION 12/09/2011 REDUCTION MAMMOPLASTY, EVA performed by DEMETRA SOMMERS at [facility] MAIN OR ??? PRO LAP, DIAGNOSTIC ABDOMEN Left 08/02/2022 LAPAROSCOPY, DIAGNOSTIC, ABDOMEN (WRVU 5.14) performed by Antonio Rojas MD at [facility] MAIN OR ??? PRO REMOVAL OF OVARY/TUBE(S) Left 08/02/2022 @SALPINGO-OOPHORECTOMY, UNILATERAL OR EVA (WRVU 12.16) performed by Antonio Rojas MD at [facility] MAIN OR ??? PRO UPPER GI ENDOSCOPY, DIAGNOSTIC N/A 08/05/2022 EGD, UPPER GI ENDOSCOPY performed by Donnie Obrien MD at [facility] ENDOSCOPY Social History: Patient currently smokes three quarters of a pack per day, and reports she is willing to quit with use of nicotine patches or gum. She denies EtOH or substance use. She is currently applying for disability. Hobbies include watching daytime TV. Medications: Current Outpatient Medications: ??? Mag [address] tablet, Take 64 mg by mouth every evening., Disp: , Rfl: ??? sucralfate (Carafate) 1 gram tablet, TAKE ONE TABLET BY MOUTH FOUR TIMES A DAY BEFORE MEALS ANDAT BEDTIME, Disp: , Rfl: ??? loratadine (Claritin) 10 mg Tablet, Take 10 mg by mouth daily., Disp: , Rfl: ??? pantoprazole EC (Protonix) 40 mg Tablet, Delayed Release (E.C.), Take 1 tablet by mouth 2 timesdaily., Disp: 120 tablet, Rfl: 0 ??? acetaminophen (Tylenol) 325 mg Tablet, Take 2 tablets by mouth every 6 hours., Disp: 65 tablet,Rfl: 0 ??? ibuprofen (Advil) 600 mg Tablet, Take 1 tablet by mouth every 6 hours., Disp: 65 tablet, Rfl: 0 ??? lisinopriL (Zestril) 10 mg Tablet, Take 1 tablet by mouth daily., Disp: 90 tablet, Rfl: 2 ??? senna-docusate (Pericolace) 8.6-50 mg Tablet, Take 2 tablets by mouth 2 times daily as needed for Constipation., Disp: 60 tablet, Rfl: 1 ??? amitriptyline (ELAVIL) 100 mg Tablet, Take 100 mg by mouth nightly., Disp: , Rfl: ??? gabapentin (NEURONTIN) 300 mg Capsule, Take 300 mg by mouth 3 times daily., Disp: , Rfl: ??? QUEtiapine (SEROQUEL) 25 mg tablet, Take 100 mg by mouth nightly., Disp: , Rfl: ??? multivitamin (THERAGRAN) tablet, Take 1 tablet by mouth daily., Disp: , Rfl: ??? atenolol (TENORMIN) 50 mg tablet, Take 50 mg by mouth daily., Disp: , Rfl: ??? cyclobenzaprine (FLEXERIL) 10 mg tablet, Take 10 mg by mouth 3 times daily as needed., Disp: , Rfl: Allergies: Allergenic extracts, Tramadol, and Zoloft [sertraline] Family History: Family History Problem Relation Age of Onset ??? Alcohol Use Disorder Sister ??? Cerebrovascular Accident Sister ??? Migraines Sister ??? Alcohol Use Disorder Brother ??? Migraines Sister ??? Breast Cancer Maternal Aunt ??? Arthritis Neg Hx ??? Asthma Neg Hx ??? Cancer Neg Hx ??? Heart Disease Neg Hx ??? Substance Use Disorder Neg Hx REVIEW OF SYSTEMS: Negative except for as above. PHYSICAL EXAM: GENERAL: In no acute distress, well-appearing Neck: Supple, no tenderness to palpation, no masses or scars noted MUSCULOSKELETAL: Alignment: Sitting in a wheelchair. Able to maintain horizontal gaze sitting upright. Coronally unremarkable. Shoulders level. Limited cervical range of motion in flexion, extension, and rotation with worst pain looking to theleft pain. No spinous tenderness to palpation. Shoulder and elbow range of motion not limited. NEUROLOGICAL: Cognition: Oriented to person, place and time, Recent and remote memory intact, Attention-span normal, Fund of knowledge appropriate Gait: Able to stand and pivot transfer with minimal assistance, unable to walk without assistance or use of a walker. Motor: Muscle tone normal, no atrophy noticed. Test Right Left Arm Abduction 5 5 Elbow Flexion 5 4+ Elbow Extension 5 4 Wrist Extension 5 4 Finger Extension 4+ 3 Finger Abduction 4+ 3 Clarity Developer 4+ 3 Pincer 4+ 3 Hip Flexion 5 4 Knee Extension 5 4 Foot Dorsiflexion 5 4 1st Toe Extension 5 4 Plantar Flexion 5 4 Sensation: (Light Touch and Pin) Reported percent of normal Location Right Left Shoulder 100 100 Forearm Thumb 100 100 Middle finger 100 100 Fourth and Fifth Digit 75 50 Reflexes: Test Right Left Biceps 2 3 Brachioradialis 2 3 Triceps 2 3 Patellar 2 3 Ankle 2 2 Pathologic Reflexes/Signs: Test Right Left Yates's Absent Absent Babinski's Absent Absent IMAGING PERSONALLY REVIEWED: MRI of the cervical spine 09/27/2022: There is severe stenosis at C6-7 due to significant hypertrophy of the ligamentum flavum with a small component of anterior compression, mild disc bulge at this level. There is severe spinal cord compression with T2 signal present at this level. All of which was not present on previous MRI in 2015. CTA head and neck 09/25/2022: The ligamentum flavum is ossified at C6-7 causing severe stenosis of the spinal canal, versus less likely contrast-enhancing epidural mass MRI of the lumbar spine 09/23/2022: There is a T12 superior endplate deformity with STIR signal and a small L5-S1 disc herniation, neither of which causes significant stenosis. No other levels of significant stenosis. ASSESSMENT AND PLAN: 62 y.o. 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 I discussed with the patient and her the diagnosis and natural history of degenerative cervical myelopathy as a generally progressive condition, but may be marked with periods of quiescence. The patient has noted severe worsening over a short approximate 3-month time period, and is currently minimally ambulatory and severe loss of hand function on the left. Given the profound loss of neurologic function, surgery is indicated to decompress the spinal cord at the C6-7 level. I outlined the expected but not guaranteed postoperative recovery and outcomes of performing a C6-7laminectomy and excision of OLF with C5-T2 posterior instrumented fusion. The risks of: Systemic complications, coma, , stroke, paralysis, spinal cord injury, nerve root injury, C5-Palsy, bleeding, hematoma, weakness, numbness, bowel/bladder incontinence, pseudarthrosis, adjacent segment disease, cervical kyphosis, CSF or spinal fluid leak, poor wound healing, infection, failure to improve, and need to re-operate for any of these reasons, were discussed. I emphasized that she is at increased risk of surgical site infections, pseudoarthrosis, and overall increased rate of needing reoperation due to her current smoking status, and strongly advised her to quit smoking immediately, but given the severe progression of her symptoms would not further delay surgery. Also discussed with her the increased risk of a CSF leak due to the severe calcinosis present. Patient acknowledged understanding of the procedure as well as the risks, benefits, and alternatives. All questions were answered to patient's satisfaction, and wishes to proceed with surgery as detailed above. Patient will have her PCP, Lena Womack, provide preoperative medical assessment and clearance and labwork was ordered. Will also obtain a preoperative non- contrast CT of the cervical spine for surgical planning purposes and to demonstrate that this is not a contrast-enhancing lesion. -The patient acknowledged understanding and in agreement with the treatment plan. It was further acknowledged that all questions were answered satisfactorily. Contact information for any further questions or concerns was provided. Total time, 45 minutes, spent pre-charting, personal independent review of imaging, coordinating care, counseling the patient, and charting the visit. Tien Zurita MD Campaign Marketing Specialist Section of Neurosurgery Department of Surgery [facility] documented in this encounter Plan of Treatment Upcoming Encounters Date Type Department Care Team (Late st Contact Info) Description 03/07/2024 10:00 AM EDT Appointment XRay at [address] [place] [address] Tien Zurita MD [facility] [place] [address] 03/07/2024 10:40 AM EDT Office Visit Neurosurgery at [facility] [place] [phone] Angel Hankins PA [facility] [place] [address] documented as of this encounter Visit Diagnoses Diagnosis Stenosis of cervical spine with myelopathy documented in this encounter Care Teams Head Orthopedic Team Physician Relationship Specialty Start Date End Date Lena Womack APRN PCP - General Family Medicine 08/02/22 documented as of this encounter
--- OUTSIDE RECORDS SUMMARY | 2024-02-12 18:07 | XMS_ITS | Encounter Summary ---
[place] [address] Care Team Providers Care Data Processing Mechanic Name Role Phone Lena Womack APRN Primary Care Provider [phone] Encounter Details Date Type Department Care Team (Late st Contact Info) Description 08/12/2022 Telephone [place] [phone] Sury Madden RN Social History Tobacco Use Types Packs/Day [...] encounter Miscellaneous Notes * Telephone Encounter - Sury Madden RN - 08/12/2022 4:10 PM EST Called and spoke with patient. 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 ?? She's been taking 325 mg of tylenol and 600 mg of ibuprofen every 6 hours. Her incision pain is at an 8/10 with tylenol and ibuprofen. She is taking 5 mg of oxycodone every 6-8 hours to bring this pain down to 6/10. Her last oxycodone tablet was this morning. Patient describes the incisional pain as pulling. She denies redness, swelling, discharge, or warmth to the incision. Patient is eating and drinking without issue, having BMs, voiding, and overall feels as if she is healing okay. She does report some tingling in her finger tips starting this morning but denies any other new symptoms. She continues to have tingling in her legs and feet that are unchanged since surgery. The tingling does not interfere with her ability to do things. Instructed patient to take 975 mg of tylenol every 6 hours (NTE 4000 mg of tylenol in 24 hours) andwill check with Dr. Rojas if he is okay with a small fill of oxycodone. If so, patient would like anrx sent to [facility] in [place]. * Telephone Encounter - Sury Madden RN - 08/12/2022 4:10 PM EST ----- Message from Fifi Kimball RN sent at 08/12/2022 1:54 PM EST ----- Patient requesting more pain medication and would like to discuss tingling in fingers. documented in this encounter Plan of Treatment Upcoming Encounters Date Type Department Care Team (Late st Contact Info) Description 03/07/2024 10:00 AM EDT Appointment XRay at [address] [place] [address] Tien Zurita MD [facility] [place] [address] 03/07/2024 10:40 AM EDT Office Visit Neurosurgery at [facility] [place] [phone] Angel Hankins PA [facility] [place] [address] documented as of this encounter Visit Diagnoses Not on filedocumented in this encounter Care Teams Data Processing Mechanic Relationship Specialty Start Date End Date Lena Womack APRN PCP - General Family Medicine 08/02/22 documented as of this encounter
--- OUTSIDE RECORDS SUMMARY | 2024-02-12 18:07 | XMS_ITS | Encounter Summary ---
[place] [address] Care Team Providers Care Video Systems Engineer Name Role Phone Shanta Lena Villeda APRN Primary Care Provider [phone] Encounter Details Date Type Department Care Team (Late st Contact Info) Description 11/30/2022 [place] [address] Laura Lerner RN Social History Tobacco Use Types Packs/Day Years Used Date Smoking Tobacco: Every Day Cigarettes 0.3 35 Smokeless Tobacco: Never Alcohol Use Standard Drinks/Week Comments Yes 0 (1 standard drink = 0.6 oz pur e alcohol) 1-2x a year [facility] Inpatient Questions Answer Date Recorded Does Anyone [...] encounter Miscellaneous Notes * Telephone Encounter - Laura Lerner RN - 11/30/2022 3:26 PM EDT Copied from CRM #[id number]. Topic: Specialty Dept CRMs - Triage >> Nov 30, 2022 2:15 PM Godwin, Nereida Echeverria wrote: Triage Message Specialist: Tien Zurita Relationship (if other than patient-full name): Symptom: Patient stated her left leg is going numb and she is no longer able to hold her bladder , patient is also having pain in her left side Has patient experienced symptom before If patient has experienced symptom before, when was the last time this occurred Is patient currently having symptom yes When did symptom begin or Tuesday Additional Comments: patient stated she also fell on Tuesday and with the new the new symptoms she is wondering if she should still wait another month for surgery. Patient would like to discuss with a nurse Caller: Katheryn Reason for call: see above Since her fall she has more urgency to go to the bathroom. On occasion she has urinated on the way to the bathroom, has had incontinence overnight where she has to wear a diaper. She hit her elbow and her knees in her kitchen. She states that her left leg is dragging rather than being able to lift it before her fall. She feels like this leg is weaker. Pain on her left lower back above her buttock. Her ankles, feet and legs are swollen since her fall as well. Plan: recommended patient present to the ED for evaluation for new loss of bladder control and leg weakness. Will alert Dr. Zurita as well. She called her PCP and they advised she call us. documented in this encounter Plan of Treatment Upcoming Encounters Date Type Department Care Team (Late st Contact Info) Description 03/07/2024 10:00 AM EDT Appointment XRay at [address] [place] [address] Tien Zurita MD [facility] [place] [address] 03/07/2024 10:40 AM EDT Office Visit Neurosurgery at [facility] [place] [phone] Angel Hankins PA [facility] [place] [address] documented as of this encounter Visit Diagnoses Not on filedocumented in this encounter Care Teams Video Systems Engineer Relationship Specialty Start Date End Date Lena Womack APRN PCP - General Family Medicine 08/02/22 documented as of this encounter
--- OUTSIDE RECORDS SUMMARY | 2024-02-12 18:07 | XMS_ITS | Encounter Summary ---
Author Organization [facility] [place] [address] Care Team Providers Care Preschool Aide Name Role Phone Lena Womack APRN Primary Care Provider [phone] Encounter Details Date Type Department Care Team (Late st Contact Info) Description 11/10/2022 2:00 PM EDT Ancillary Procedure [place] [phone] Lena Womack APRN [address] [place], [place] [address] Social History Tobacco Use Types Packs/Day Years [...] 03/07/2024 10:00 AM EDT Appointment XRay at [address] [place] [phone] Tien Zurita MD [facility] [place] [address] 03/07/2024 10:40 AM EDT Office [place] [address] Angel Hankins PA [facility] [place] [address] documented as of this encounter Procedures Procedure Name Priority Date/Time Associated Diagnosis Comments FILM LIBRARY STORAGE ONLY CT SPINE Routine 11/10/2022 1:57 PM EDT documented in this encounter Results * Film Library- Storage Only CT Spine (11/10/2022 1:57 PM EDT) Narrative [facility] - 11/10/2022 1:57 PM EDT This exam is auto-finalizing. It's purpose is for storage only. Lena Womack APRN [facility] FILM LIBRARY ORD ERABLES Performing Organization Address City/State/[facility] Co de Phone Number [place], [place] documented in this encounter Visit Diagnoses Not on filedocumented in this encounter Care Teams Preschool Aide Relationship Specialty Start Date End Date Lena Womack APRN PCP - General Family Medicine 08/02/22 documented as of this encounter
--- OUTSIDE RECORDS SUMMARY | 2024-02-12 18:07 | XMS_ITS | Encounter Summary ---
Author Organization [facility] [place] [address] Care Team Providers Care Public Records Researcher Name Role Phone Lena Womack Ronal MEJIA Primary Care Provider Encounter Details Date Type Department Care Team (Late st Contact Info) Description 08/12/2022 Orders Only Gy[place] [phone] Sury Madden, RN S/P hysterectomy Social History Tobacco Use Types Packs/Day Years [...] 03/07/2024 10:00 AM EDT Appointment XRay at [address] [place] [phone] Tien Zurita MD [facility] [place] [address] 03/07/2024 10:40 AM EDT Office [place] [address] Angel Hankins PA [facility] [place] [address] documented as of this encounter Visit Diagnoses Diagnosis S/P hysterectomy Acquired absence of both cervix and uterus documented in this encounter Care Teams Public Records Researcher Relationship Specialty Start Date End Date Lena Womack APRN PCP - General Family Medicine 08/02/22 documented as of this encounter
--- OUTSIDE RECORDS SUMMARY | 2024-02-12 18:07 | XMS_ITS | Encounter Summary ---
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 Name Role Phone Shanta Lena Villeda APRN Primary Care Provider [phone] Reason for Visit * Reason Comments Abdominal Pain Left ovarian mass Back Pain Fall * Auth/Cert (Routine) Specialty Diagnoses / Procedures Referred By Contac t Referred To Contact Diagnoses Adnexal mass Antonio Rojas MD [facility] [place] [address] [facility] Referral ID Status Reason Start Date Expiration Date Visits Re quested Visits Authorized [id number] 1 1 Encounter Details Date Type Department Care Team (Latest Contact Info) Description 08/01/2022 9:16 PM EST - 08/08/2022 3:38 PM EST Hospital Encounter Hematology Special Care Unit Level 1 [place] [id number] Oumou Villar MD [facility] [place] [address] Antonio Rojas MD [facility] [place] [address] Adnexal mass Discharge Disposition: Home Social History Tobacco Use [...] Sign Reading Time Taken Comments Blood Pressure 134/73 08/08/2022 12:05 PM EST Pulse 66 08/06/2022 1:23 AM EST Temperature 36.6 ??C (97.9 ??F) 08/08/2022 12:[address] Respiratory Rate 20 08/08/2022 12:05 PM EST Oxygen Saturation 94% 08/08/2022 12:05 PM EST Inhaled Oxygen Concentration - - Weight 100 kg (220 lb 7.4 oz) 08/08/2022 4:00 AM EST Height 165.1 cm (5' 5) 08/01/2022 8:16 PM EST Body Mass Index 36.69 08/01/2022 8:16 PM EST documented in this encounter Discharge Summaries * Sharon Tse MD - 08/08/2022 1:44 PM EST Discharge Summary Patient Name: Katheryn Carranza Patient Age: 61 y.o. Language: Kittitian Race: White Ethnicity: Not nor Admit date: 08/01/2022 Discharge date and time: 08/08/2022 1:47 PM Attending Physician: Antonio Rojas MD Discharge Physician: Dr. Yakelin Mccartney Follow-up Recommendations for Providers: -Staple removal and follow-up with Dr. Rojas on 08/16/22 at 10:00AM -Follow-up with PCP regarding pre-diabetes and mild T12 compression fracture and small left sided L5-S1 paracentral disc herniation causing back pain and radiculopathy and small ulcer with minimal inflammation at pylorus Inpatient Provider Contact Information: Dr. Antonio Rojas, [facility] Gynecologic Oncology, Discharge Diagnoses (Hospital Problems) and Secondary Diagnoses (Chronic Problems): Active Hospital Problems Diagnosis ??? Adnexal mass ??? Moderate opioid use disorder ??? Thoracic compression fracture, sequela ??? Herniation of lumbar intervertebral disc with radiculopathy Resolved Hospital Problems No resolved problems to display. Active Non-Hospital Problems Diagnosis ??? Primary osteoarthritis of right knee ??? Carpal tunnel syndrome, bilateral ??? Trigger thumb of left hand ??? Knee pain, bilateral ??? Osteoarthritis of patellofemoral joint ??? Cervical spondylosis without myelopathy ??? Cervical disc displacement ??? Cervical radiculitis ??? Occipital neuralgia ??? Neck pain on left side ??? Breast hypertrophy Operations/Major Procedures: 08/02/2022 Diagnostic laparoscopy, converted to laparotomy, left salpingo-oophorectomy 08/05/2022 EGD with GI History of Presentation: Katheryn Carranza is a 61 y.o. with past medical history notable for hypertension, s/p total vaginal hysterectomy in the setting of AUB who presents with worsening leg weakness and back pain in the setting of a large adnexal mass. ?? Katheryn reports that about three weeks ago she developed worsening numbness in her legs bilaterally. The pain shoots down the back of her legs and into her groin. She was first evaluated by her PCP whosuspected pain was secondary to sciatic nerve entrapment. She was prescribed a course of Prednisonewith no relief in her symptoms. She then experienced two falls at home due to weakness in her legs.She was then recommended by her PCP to seek evaluation in the ED. ?? On 07/29/21, she presented to the ED at [facility]. She had a CTAP demonstrating a 15cm complex left adnexal mass. She also had a CT spine performed without acute findings. Patient was dispositioned to outpatient follow-up with [facility] at [facility]. ?? Tonight, she reports worsening pain in her back that wraps around the abdomen. The pain is so severe that she cannot find a comfortable position. This prompted her to seek treatment in the ED. She reports that the pain is constant, but that it occasionally comes in waves. The pain has improved minimally with Dilaudid in the ED. Having difficulty laying flat due to back pain. ?? Patient endorses low appetite and early satiety in the last two weeks. She has only been able to tolerate liquids. She also endorses constipation, necessitating that she use stool softeners. Last bowel movement was yesterday. No blood in stools. Endorses urinary frequency and has baseline urinary in continence. No recent change in urinary incontinence. Not incontinent of stool. Denies nausea or vomiting. No weight loss. ?? In the ED, labs are notable for a mild leukocytosis to 12.6. Tumor markers were notable for a mildly elevated CA-125 of 40.8. ?? Review of Systems: Denies headache, vision changes, chest pain, shortness of breath, nausea or vomiting, leg pain or swelling. No fevers, chills, myalgias. Hospital Course: Katheryn Carranza was admitted to Gynecologic Oncology through the ED, please see problem list below for Hospital Summary. #Adnexal mass: Once cleared by Neurology and Neurosurgery for OR positioning on HD#1 she was taken to the OR for the above procedures for her 15cm adnexal mass without complication, EBL 10mL. Findings were notable for: 1. Exam under anesthesia: Normal external genitalia. [...] cystadenofibroma. There were no concern for malignancy. #Pain: C4 PLANNER started for pain control for her abdominal and back pain. BIT team consulted due to using opioids without Rx at home and to assist with overall assessment and plan for going home. C4 PLANNER was eventually transitioned to PO tylenol, ibuprofen, and oxycodone. #Left paracentral disc herniation: Due to her back pain and radiculopathy Neurology and Neurosurgery consults obtained and MRI thoracic and lumbar spine to visualize spinal column and ensure safety for OR positioning given the left paracentral disc herniation L5/S1 noted on 2nd read of CT spine. MRI demonstrated mild compression fracture T12 and small left sided L5-S1 disc herniation not necessitating further work-up or surgical intervention by Neurosurgery. While her radicular pain improved after surgery it was still present. Initially started steroids though discontinued in setting of post-o perative emesis requiring ngt. #Post-op emesis: On the evening of POD#2 Katheryn developed acute abdominal pain, distension, and emesis despite flatus thus CT obtained showing large stool burden though no obstruction or ileus and gastric distension. NGT placed for decompression and Gen Sx and GI consulted. GI performed EGD on POD#3which demonstrated small ucler near pylorus bot no obstruction or clear etiology of emesis. HgA1c c/w prediabetes. No clear etiology of emesis. On POD#3-4 she started to have return of bowel functionwith passing flatus and stool, given suppositories, enema, and Miralax to assist with transit of stool burden seen on CT. Able to remove ngt on HD#7 and advance diet. By day of discharge she was tolerating a regular diet without nausea/emesis. Discharged on protonix BID x8 weeks per GI recommendation. #Prediabetes: In setting of gastric distension without clear ileus picture hemoglobin A1C obtained and c/w prediabetes (6.2). Nutrition consulted to assist with education and guidance. Follow-up withPCP. Dispo: By HD#8/POD#6 Katheryn was able to tolerate regular diet without nausea and pass flatus and stool. She was ambulating and voiding without issue (fournier removed on POD#4). Her pain was controlled on oral medications. The patient was discharged home on POD #6 in stable condition with follow-up in place. We discussed discharge instructions and plan of care, all questions answered. Due to their post-operative pain the patient was given a prescription for oxycodone to take only for breakthrough pain not responsive to acetaminophen and ibuprofen. The patient was counseled regarding the dangers of these medications including sedation which would impair their ability to drive safely. The potential for addiction with continued use of narcotic was discussed and the need to stop use as soon as possible. It was recommended that the patient promptly destroy unused medication or take them back to drop box locations. The opioid risk assessment was done, opioid informed consent reviewed and signed by patient, PDMP query completed. Discharge instructions discussing the risk of opioids are included in their discharge instructions which are printed and given to the patient at discharge. Vital signs at Discharge: BP: 134/73, Heart Rate: 66, Temp: 36.6 ??C (97.9 ??F), Resp: 20, BMI (Calculated): 35.77 Height: 165.1 cm (5' 5) (08/01/222015) Weight: 100 kg (220 lb 7.4 oz) (08/08/22399) Functional and Cognitive status: At baseline Important Studies and Lab Data: Labs: Last 3 wbc, hgb, hct plt Recent Labs 08/04/22232308/01/22 2215 WBC 10.1* 12.6* HGB 13.6 13.7 HCT 39.1 39.3 PLATELET 285 286 Last 3 Lytes Recent Labs 08/07/22 0516 08/06/22 0518 08/04/22 2324 NA 137 139 137 K 3.8 3.3* 3.6 CL 101 99 101 CO2 24 26 24 BUN 9 10 10 CREATININE 0.68* 0.65* 0.70 Last 3 LFTs Recent Labs 08/04/22 2324 08/01/22 2215 AST 13 13 ALT 22 23 ALKPHOS 73 84 BILITOT 0.3 0.2 BILIDIR -- 0.1 UA 08/05/22: Latest Reference Range & Units 08/05/22 10:47 Color UA Yellow Yellow Appearance UA Clear Clear Spec [place] UA 1.005 - 1.030 1.011 pH UA 5.0 - 8.0 7.5 Protein UA Negative mg/dL Negative Glucose UA Negative mg/dL Negative Ketones UA Negative mg/dL Negative Bilirubin UA Negative mg/dL Negative Urobilinogen UA Normal mg/dL Normal Blood UA Negative mg/dL Negative Leukocytes UA Negative mcL Negative Nitrite UA Negative Negative Culture Reflexed No Hemoglobin A1C 08/04/22: 6.2 Tumor markers 08/01/22: CA-125=40.8 / CEA=2.2 / DF40-2=3.1 Studies: EGD 08/05/22: ??The examined esophagus was normal. A few diminutive erosions with no bleeding and no stigmata of recent bleeding were found in the gastric antrum. NG tube seen entering into stomach. The examined duodenum was normal. CT abd/pel 08/05/22: Findings suggesting pyelonephritis of the lone RIGHT kidney. Moderate to severe gastric distention. Mild atelectasis at the included lung bases. Moderate pancolonic stool burden MRI thoracic & lumbar spine 08/02/22: 1. Acute superior endplate fracture of T12 with 20% vertebral body height loss. Minimal posterior bony retropulsion contributes to mild spinal canal stenosis at T11-T12. No cord contact or deformity. No definitive accompanying enhancing mass. 2. No osseous metastatic disease in the thoracic or lumbar spine. CT spine 2nd read: Overall mild degenerative changes. ??Left paracentral disc herniation at L5-S1 may impinge upon the traversing left S1 nerve root. CT abd/pel 2nd read: 1. 16 x 13.4 cm predominantly cystic lower abdominal mass with peripheral mural nodularity. 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 Regions of mural nodularityare suspicious for malignancy. No evidence of rupture/pseudomyxoma. 2. Sub-6 mm left lower lobe pulmonary nodules are suspected to represent intrapulmonary lymph nodes. Consider follow-up noncontrast chest CT in 6 months. 3. Hepatic steatosis. 4. Absent left kidney. Pending Studies and Lab Data: Final pathology PENDING Discharge Conditions/Prognosis: Stable Discharge to: Home Updated Allergies/ADRs: Allergies Allergen Reactions ??? Allergenic Extracts Pollen ??? Tramadol Low potassium ??? Zoloft [Sertraline] Nausea And Vomiting Immunizations Given this Hospitalization: There is no immunization history on file for this patient. Discharge Medications: Your Medications New Medications Dose Details acetaminophen 325 mg Tab Commonly known as: Tylenol Take 2 tablets by mouth every 6 hours. 650 mg Quantity: 60 tablet Refills: 0 ibuprofen 600 mg Tab Commonly known as: Advil Take 1 tablet by mouth every 6 hours. 600 mg Quantity: 60 tablet Refills: 0 lisinopriL 10 mg Tab Commonly known as: Zestril Take 1 tablet by mouth daily. Start taking on: August 09, 2022 10 mg Quantity: 90 tablet Refills: 3 naloxone 4 mg/actuation Long Neck Commonly known as: Narcan 1 each by Nasal route as needed. 1 each Quantity: 3 each Refills: 5 oxyCODONE 5 mg Tab Commonly known as: Roxicodone Take 1 tablet by mouth every 4 hours as needed for Pain (Severe pain (8-10)). 5 mg Quantity: 15 tablet Refills: 0 polyethylene glycoL 17 gram Pwpk Commonly known as: Miralax Take 17 g by mouth daily. Start taking on: August 09, 2022 17 g Quantity: 14 each Refills: 0 senna-docusate 8.6-50 mg Tab Commonly known as: Pericolace Take 2 tablets by mouth 2 times daily as needed for Constipation. 2 tablet Quantity: 60 tablet Refills: 0 Continued medications with new dosing Dose Details pantoprazole EC 40 mg Tbec Commonly known as: Protonix Take 1 tablet by mouth 2 times daily. What changed: when to take this 40 mg Quantity: 120 tablet Refills: 0 Continued medications, unchanged Dose Details amitriptyline 100 mg Tab Commonly known as: Elavil Take 100 mg by mouth nightly. 100 mg Refills: 0 atenoloL 50 mg Tab Commonly known as: Tenormin Take 50 mg by mouth daily. 50 mg Refills: 0 baclofen 10 mg Tab Commonly known as: Lioresal Take 10 mg by mouth 3 times daily. 10 mg Refills: 0 Botox 200 unit Solr Inject 155 Units as directed Every 12 weeks. Indications: Migraine Prevention Generic drug: OnabotulinumtoxinA 155 Units Refills: 0 cyclobenzaprine 10 mg Tab Commonly known as: Flexeril Take 10 mg by mouth 3 times daily as needed. 10 mg Refills: 0 dihydroergotamine 0.5 mg/pump act. (4 mg/mL) Long Neck Commonly known as: MIGRANAL One spray per nostril, while holding the opposite nostril closed. Wait 15 minutes then repeat (total of 4 sprays - 2 per nostril). Quantity: 8 mL Refills: 5 estradioL 1 mg Tab Commonly known as: Estrace Take 1 mg by mouth daily. 1 mg Refills: 0 gabapentin 300 mg Cap Commonly known as: Neurontin Take 300 mg by mouth 3 times daily. 300 mg Refills: 0 hydrOXYzine 25 mg Cap Commonly known as: VISTARIL Take 1 capsule by mouth 2 times daily as needed (for Mild to moderate headaches - can be taken withNaproxen sodium). 25 mg Quantity: 60 capsule Refills: 12 ketoconazole 2 % Crea Commonly known as: Nizoral Apply topically as needed. Refills: 0 Miscellaneous Medical Supply Misc Bilateral wrist splints for CTS Quantity: 2 each Refills: 0 multivitamin Tab Commonly known as: THERAGRAN Take 1 tablet by mouth daily. 1 tablet Refills: 0 promethazine 25 mg Supp Commonly known as: Phenergan Place 1-2 suppositories rectally every 6 hours as needed (Nausea with headache). 25-50 mg Quantity: 15 suppository Refills: 5 QUEtiapine 25 mg Tab Commonly known as: SEROquel Take 100 mg by mouth nightly. 100 mg Refills: 0 tiZANidine 4 mg Tab Commonly known as: Zanaflex Take 4 mg by mouth daily. 4 mg Refills: 0 STOPPED Medications naproxen sodium 550 mg Tab Commonly known as: Anaprox DS Smoking Status at Discharge: Social History Tobacco Use Smoking Status Every Day ??? Packs/day: 0.25 ??? Years: 35.00 ??? Pack years: 8.75 ??? Types: Cigarettes Smokeless Tobacco Never Instructions Given to Patient at Discharge: Patient Instructions PATIENT DISCHARGE INSTRUCTIONS Gynecologic Oncology phone number: [phone] (Nurse ext 4 then 4; appointment ext 1 then 4). After hours and on weekends please call hospital numerical control lathe operator at [phone] and ask for Gynecologic Oncologist companion caregiver. Call your doctor if you develop: --A fever over 101 degrees --Severe pain --Increasing pain, redness, or discharge at your incision -Staple removal and follow-up with Dr. Rojas on 08/16/22 at 10:00AM -Follow-up with PCP regarding pre-diabetes and mild T12 compression fracture and small left sided L5-S1 paracentral disc herniation causing back pain and radiculopathy -Please take your pantoprazole (Protonix) twice each day for the next 2 months, then you can changeback to daily dosing. Activity level: No heavy lifting (10lbs max), pushing or pulling for 6 weeks. No sexual intercourse, no tampons, nothing in the vagina for 2 weeks. Diet: You may resume your regular diet. Be sure you drink plenty of fluids. Bowel regimen: Please use charleen-colace (senna-S or docusate-senna) 1-2 tablets twice daily for the entire time that you are taking narcotic pain medication to keep your bowel movements soft and regular. You may consider using this post- operatively even if you are not using narcotic pain medication. You can increase this to up to 8 tablets a day (and may take 6-12 hours for effect). If you are constipated or have not had a bowel movement in 2 days, you may add in polyethylene glycol (Miralax) 17g(one capful) 1-2 times daily (may take 1-2 days for effect). If this is ineffective you may add Milk of Magnesia 30mL (2 Tablespoons) daily (may take 30 minutes - 6 hours to work). The next step is to use Magnesium Citrate 1 bottle (295mL)- this usually produces a bowel movement in 30 minutes-3 hours. Please call if you have not had a bowel movement in 3-4 days. Driving: Do not drive until you are off of all narcotic medications and you are not feeling pain; usually about 1-2 weeks. Shower/Bath: Showering is fine. Short baths are okay but you should avoid having any abdominal incision submerged for more than 10-15 minutes for the next 2 weeks. Wound Care: You will have your parminder removed 10-14 days after surgery by a healthcare provider, who will place small pieces of paper tape over your incision. This tape can get wet in the shower, just ensure that you dry them well. These pieces of tape should fall off within 7 days; if they have not, please remove them after one week. Pain Control: For your post-operative pain please use ibuprofen, acetaminophen, heating pad, and narcotic pain medication (oxycodone) for your pain management. Your goal is to be able to take severalshort walks every day (increase the duration each day) and to be able to sleep at night. If you areunable to do these things using the ibuprofen and acetaminophen and heating pad then you will need to use the narcotic pain medication (oxycodone) for breakthrough pain. You should be able to use less oxycodone every couple days and require no breakthrough narcotic pain medication in about 1-4 weeks. 1. Please use ibuprofen (Advil/Motrin) 600mg every 6 hours around the clock (with food) for the next 5-7 days. After that, use as needed. Do NOT use your naproxen (Anaprox) while using ibuprofen. Useone or the other. 2. Please use acetaminophen (Tylenol) 650mg every 6 hours as needed (or 1000mg every 8 hours as needed). Do not exceed 3000mg of acetaminophen from any source in 24 hours. 3. Please use oxycodone every 4-6 hours as needed for pain that ???breaks through?? the ibuprofen and acetaminophen. Please take your medication exactly as prescribed. Read all instructions that come with your medication. ?? Using narcotic pain medication (such as oxycodone, hydrocodone, hydromorphone [Dilaudid], morphine, fentanyl, or tramadol [Ultram]) may cause addiction. While addiction is more common in people with a personal or family history of addiction, it can occur in anyone. ?? Taking more than the prescribed amount of medication or using with alcohol or other drugs can cause you to stop breathing resulting in coma, brain damage, or . ?? Opioids (oxycodone, hydrocodone, hydromorphone [Dilaudid], morphine, fentanyl, tramadol [Ultram]) can slow reaction time, cause drowsiness, or cloud judgement. It is unsafe for you to drive or operate heavy machinery while taking this medication. ?? Opioids (oxycodone, hydrocodone, hydromorphone [Dilaudid], morphine, fentanyl, tramadol [Ultram]) are at risk of being diverted by anyone with access to your home. Opioids should be stored in a safe and secure place, such as a locked cabinet or safe. Unused opioids (oxycodone, hydrocodone, hydromorphone [Dilaudid], morphine, fentanyl, tramadol [Ultram]) should be disposed of according to the label or patient information. If there are no specific instructions, medications may be returned to a take-back location or mixed with a small amount of water and an undesirable waste substance such as coffee grounds or cat litter. General Instructions Substance Use Disorder Resources From BIT (Behavioral Intervention Team), Inpatient psych services: If you are interested in receiving some counseling support related to reducing or stopping your useof opioid medications, here are some options: [facility], [facility] Saumya Kumari, Drug & Alcohol Counselor, MS, [facility] [address] [place], [place] [address] Offers online therapy Watson Wiley, Drug & Alcohol Counselor, MS, LAD, [facility], MAC [address] [facility] [address] [place] [address] Offers online therapy [facility] Asha Quintana, Drug & Alcohol Counselor, MA, [facility], [place], [place] [address] Offers online therapy [facility], [facility] Ara Pratt, Drug & Alcohol Counselor, PSYCHIATRIC, [facility] [address] [place], [place] [address] Offers online therapy [facility] Jose Miguel Dominique, Pre-Licensed Professional, IMPORT/EXPORT ANALYST [address] [place], [place] [address] x9 Scott Young, Drug & Alcohol Counselor, MS, [facility], [facility] [address] [place], [place] [address] Offers online therapy Dr. Michel Junior, Drug & Alcohol Counselor, DMjared, [place], [facility], Th, [facility] [address] [place], [place] [id number] Offers online therapy To review the profiles of private practice therapists, including ones listed above: 1) Visit www.psychologytoday.com 2) Enter your city name or zip code 3) Filter search results on the right hand side, including by insurance 4) Review therapist profiles 5) Call to schedule an intake appointment Residential Treatment: [facility] ([facility]) An [address] [phone] [phone] [facility] Behavioral Health [address] [place] [address] [facility] [address] [facility] [address] [facility] [place] [address] Medication Assisted Therapy: [facility] is a suboxone clinic in [place], [place] [address] [place] [address] Services: Buprenorphine treatment Substance use treatment People with trauma, people with HIV or AIDS and people with co-occurring pain and substance use Naltrexone administration, methadone maintenance and suboxone prescription Peer Support Groups Narcotics Anonymous (NA) [place]: , www.gsana.org Online NA Meetings NA Video Meetings [email or web address] NA Text Chat Meetings [email or web address] [facility] Meetings via Zoom 5:00-6:00pm, free and open to all To join Zoom meetin. Visit [email or web address] 5. Click on calendar on top of toolbar 6. Find the correct meeting date and time 7. Click the zoom link and enter password provided 211: [facility], managed by [facility], is located at [address] in [place]. It offers screening as well as other services onsite, and connects clients with the care that is most appropriate for their needs. Services are accessible anytime, day or night, by calling 2-1-1. Overnight, respite care is available in [facility] and [place]. Additional Substance Use Treatment Resources www.dhhs.ma.gov/dcbcs/bdas/documents/qgxjwirw-hlppq-qjdvmevtt.pdf www.psychologytoday.com/ Www.rethinkingdrinking.niaaa.nih.gov/ www.samhsa.gov/mujxsfaksm-gwxaxhpv-nuajavqtl/varfqqckudej-zshpgsk-ffaw/treatment -practitioner-clay caster Mental Health Crisis National Mental Health Crisis Line: Dial 988 www.samhsa.gov/find-help/987 Harm-Reduction Resources Mobile harm-reduction. For more information about receiving supplies: including syringe exchange, fentanyl test strips, and naloxone, or to schedule an appointment: [place] clients call and leave a message for Nancy (ext. [phone]) or Mateo Cruz (ext. 104). [place] clients call to speak with Mateo Pascal. www.[facility].ma.gov/dphs/bchs/std/documents/sspregistrations.pdf Warning Illicit drugs do not come with an ingredients list. Many illicit drugs are laced with fentanyl and other drugs. Powdered fentanyl looks just like many other drugs. It is commonly mixed with drugs like heroin, cocaine, and methamphetamine and made into pills that are made to resemble other prescription opioids.Fentanyl-laced drugs are extremely dangerous, and many people may be unaware that their drugs are laced with fentanyl. Fentanyl itself is frequently laced with benzodiazepines (depressant) and Xylazine (sedative) knownas ???benzo dope?tranq?? blackout dope. These additives often impart a blue or purple hue to the original substance. These additives DO NOT respond to Narcan and significantly increase the risk of overdose and . Suboxone Emergency Override There is an emergency override requirement on all medications that require prior insurance authorization. If you experience issues picking up your suboxone prescription at the pharmacy you may request an override. They are required to provide the quantity of suboxone sufficient for 72 hours while the prior insurance authorization is being approved. Online Stress Reduction Resources www.Odoo (formerly OpenERP)/videos-features/videos/vngpcybzc-hxvlrkhkt-0-7-8-breath/ www.A[employer] BarindDreamFundedword.org/2013/imeqosrfq-izhflgent-zclftrn-moment/ www.1Cast/ www.mindful.org/ www.freemindfulness.org/ Future Appointments and Orders Future Appointments and Orders Future Appointments Provider Department Dept Phone 08/16/2022 10:00 AM Antonio Rojas MD Gynecology Oncology at [facility] Arrive at: Senior Games Technician Area 3K [phone] 08/16/2022 11:00 AM Horseradish Grinder, Onc Nurse Gynecology Oncology at [facility] Arrive at: Senior Games Technician Area [phone] Discharge References/Attachments Prediabetes (Kittitian) Provider Contact Information: Lena Womack, ASSEMBLER MUSICAL EQUIPMENT [phone] documented in this encounter Discharge Instructions * Discharge Instructions* Sharon Tse MD - 08/05/2022 10:57 AM EST Substance Use Disorder Resources From BIT (Behavioral Intervention Team), Inpatient psych services: If you are interested in receiving some counseling support related to reducing or stopping your useof opioid medications, here are some options: [facility], [facility] Saumya Kumari, Drug & Alcohol Counselor, MS, [facility] [address] [place], [place] [id number] Offers online therapy Watson Wiley, Drug & Alcohol Counselor, MS, [facility], [facility], MAC 4 [facility] [address] [place], [place] [address] Offers online therapy [facility] Asha Quintana, Drug & Alcohol Counselor, MA, [facility], [place], [place] [address] Offers online therapy [facility], [facility] Ara Pratt, Drug & Alcohol Counselor, PSYCHIATRIC, [facility] [address] [place], [place] [address] Offers online therapy [facility] Jose Miguel Dominique, Pre-Licensed Professional, IMPORT/EXPORT ANALYST [address] [place], [place] [address] x9 Scott Young, Drug & Alcohol Counselor, MS, [facility], [facility] [address] [place], [place] [address] Offers online therapy Dr. Michel Junior, Drug & Alcohol Counselor, DMjared, MA, [facility], ThM, [facility] [address] [facility] [address] [place] [address] Offers online therapy To review the profiles of private practice therapists, including ones listed above: 1) Visit www.psychologyCono-Cday.ExtendEvent 2) Enter your city name or zip code 3) Filter search results on the right hand side, including by insurance 4) Review therapist profiles 5) Call to schedule an intake appointment Residential Treatment: [facility] ([facility]) An [address] [phone] [facility] [address] [place], [place] [phone] [facility] [address] [place] [address] [facility] [address] [facility] [place] [address] Medication Assisted Therapy: [facility] is a suboxone clinic in [place], [place] [address] [place], [place] [id number] Services: Buprenorphine treatment Substance use treatment People with trauma, people with HIV or AIDS and people with co-occurring pain and substance use Naltrexone administration, methadone maintenance and suboxone prescription Peer Support Groups Narcotics Anonymous (NA) [place]: , www.gsana.org Online NA Meetings NA Video Meetings www.MECLUBna.org/meetings NA Text Chat Meetings Www.neveraloneclub.org SMART Recovery Meetings via Zoom 5:00-6:00pm, free and open to all To join Zoom meeting: Visit [email or web address] Click on calendar on top of toolbar Find the correct meeting date and time Click the zoom link and enter password provided 211: [facility], managed by [facility], is located at [address] in [place]. It offers screening as well as other services onsite, and connects clients with the care that is most appropriate for their needs. Services are accessible anytime, day or night, by calling 2-1-1. Overnight, respite care is available in [facility] and [place]. Additional Substance Use Treatment Resources www.dhhs.ma.gov/dcbcs/bdas/documents/kzaiizbn-uqoeu-gajfkrpcf.pdf www.psychologytoday.com/ Www.rethinkingdrinking.niaaa.nih.gov/ www.samhsa.gov/ezhjfxcoli-xksylvmj-fhwjbscvt/gexmpmqrgkrv-pqmcrxb-gknv/treatment -practitioner-clay caster Mental Health Crisis [facility] Crisis Line: Dial 988 www.[facility].gov/find-help/988 Harm-Reduction Resources Mobile harm-reduction. For more information about receiving supplies: including syringe exchange, fentanyl test strips, and naloxone, or to schedule an appointment: [place] clients call and leave a message for Nancy (ext. 105) or Mateo Cruz (ext. 104). [place] clients call to speak with Mateo Pascal. www.[facility].ma.gov/dphs/bchs/std/documents/sspregistrations.pdf Warning Illicit drugs do not come with an ingredients list. Many illicit drugs are laced with fentanyl and other drugs. Powdered fentanyl looks just like many other drugs. It is commonly mixed with drugs like heroin, cocaine, and methamphetamine and made into pills that are made to resemble other prescription opioids.Fentanyl-laced drugs are extremely dangerous, and many people may be unaware that their drugs are laced with fentanyl. Fentanyl itself is frequently laced with benzodiazepines (depressant) and Xylazine (sedative) knownas ???benzo dope?tranq?? blackout dope. These additives often impart a blue or purple hue to the original substance. These additives DO NOT respond to Narcan and significantly increase the risk of overdose and . Suboxone Emergency Override There is an emergency override requirement on all medications that require prior insurance authorization. If you experience issues picking up your suboxone prescription at the pharmacy you may request an override. They are required to provide the quantity of suboxone sufficient for 72 hours while the prior insurance authorization is being approved. Online Stress Reduction Resources www.NetConstat.ExtendEvent/videos-features/videos/gkawmcevl-nrzkocmxn-0-7-8-breath/ www.Retrophin.org/2013/tptkgdifr-ciugokuts-uhjmnrl-moment/ www.headsCrowdtap.ExtendEvent/ www.mindful.org/ www.freemindfulness.org/ * Patient Instructions* Sharon Tse MD - 08/03/2022 9:56 AM EST PATIENT DISCHARGE INSTRUCTIONS Gynecologic Oncology phone number: [phone] (Nurse ext [phone] then 4; appointment ext 1 then 4). After hours and on weekends please call hospital numerical control lathe operator at [phone] and ask for Gynecologic Oncologist companion caregiver. Call your doctor if you develop: --A fever over 101 degrees --Severe pain --Increasing pain, redness, or discharge at your incision -Staple removal and follow-up with Dr. Rojas on 08/16/22 at 10:00AM -Follow-up with PCP regarding pre-diabetes and mild T12 compression fracture and small left sided L5-S1 paracentral disc herniation causing back pain and radiculopathy -Please take your pantoprazole (Protonix) twice each day for the next 2 months, then you can changeback to daily dosing. Activity level: No heavy lifting (10lbs max), pushing or pulling for 6 weeks. No sexual intercourse, no tampons, nothing in the vagina for 2 weeks. Diet: You may resume your regular diet. Be sure you drink plenty of fluids. Bowel regimen: Please use charleen-colace (senna-S or docusate-senna) 1-2 tablets twice daily for the entire time that you are taking narcotic pain medication to keep your bowel movements soft and regular. You may consider using this post- operatively even if you are not using narcotic pain medication. You can increase this to up to 8 tablets a day (and may take 6-12 hours for effect). If you are constipated or have not had a bowel movement in 2 days, you may add in polyethylene glycol (Miralax) 17g(one capful) 1-2 times daily (may take 1-2 days for effect). If this is ineffective you may add Milk of Magnesia 30mL (2 Tablespoons) daily (may take 30 minutes - 6 hours to work). The next step is to use Magnesium Citrate 1 bottle (295mL)- this usually produces a bowel movement in 30 minutes-3 hours. Please call if you have not had a bowel movement in 3-4 days. Driving: Do not drive until you are off of all narcotic medications and you are not feeling pain; usually about 1-2 weeks. Shower/Bath: Showering is fine. Short baths are okay but you should avoid having any abdominal incision submerged for more than 10-15 minutes for the next 2 weeks. Wound Care: You will have your parminder removed 10-14 days after surgery by a healthcare provider, who will place small pieces of paper tape over your incision. This tape can get wet in the shower, just ensure that you dry them well. These pieces of tape should fall off within 7 days; if they have not, please remove them after one week. Pain Control: For your post-operative pain please use ibuprofen, acetaminophen, heating pad, and narcotic pain medication (oxycodone) for your pain management. Your goal is to be able to take severalshort walks every day (increase the duration each day) and to be able to sleep at night. If you areunable to do these things using the ibuprofen and acetaminophen and heating pad then you will need to use the narcotic pain medication (oxycodone) for breakthrough pain. You should be able to use less oxycodone every couple days and require no breakthrough narcotic pain medication in about 1-4 weeks. Please use ibuprofen (Advil/Motrin) 600mg every 6 hours around the clock (with food) for the next 5-7 days. After that, use as needed. Do NOT use your naproxen (Anaprox) while using ibuprofen. Use one or the other. Please use acetaminophen (Tylenol) 650mg every 6 hours as needed (or 1000mg every 8 hours as needed). Do not exceed 3000mg of acetaminophen from any source in 24 hours. Please use oxycodone every 4-6 hours as needed for pain that ???breaks through?? the ibuprofen andacetaminophen. Please take your medication exactly as prescribed. Read all instructions that come with your medication. Using narcotic pain medication (such as oxycodone, hydrocodone, hydromorphone [Dilaudid], morphine,fentanyl, or tramadol [Ultram]) may cause addiction. While addiction is more common in people with a personal or family history of addiction, it can occur in anyone. Taking more than the prescribed amount of medication or using with alcohol or other drugs can causeyou to stop breathing resulting in coma, brain damage, or . Opioids (oxycodone, hydrocodone, hydromorphone [Dilaudid], morphine, fentanyl, tramadol [Ultram]) can slow reaction time, cause drowsiness, or cloud judgement. It is unsafe for you to drive or operate heavy machinery while taking this medication. Opioids (oxycodone, hydrocodone, hydromorphone [Dilaudid], morphine, fentanyl, tramadol [Ultram]) are at risk of being diverted by anyone with access to your home. Opioids should be stored in a safe and secure place, such as a locked cabinet or safe. Unused opioids (oxycodone, hydrocodone, hydromorphone [Dilaudid], morphine, fentanyl, tramadol [Ultram]) should be disposed of according to the label or patient information. If there are no specific instructions, medications may be returned to a take-back location or mixed with a small amount of water and an undesirable waste substance such as coffee grounds or cat litter. * Attachments The following attachments cannot be sent through Care Everywhere. * Prediabetes (Kittitian) documented in this encounter Medications at Time of Discharge Medication Sig Dispensed Refills Start Date End Date pantoprazole EC (Protonix) 40 mg Tablet, Delayed [...] 45 mcg/actuation HFA Aerosol Inhaler .COMPLEX 11/20/2013 amitriptyline (ELAVIL) 100 mg Tablet Take 100 mg by mouth nightly. acetaminophen (Tylenol) 325 mg Tablet Take 2 tablets by mouth every 6 hours. 65 tablet 08/08/2022 12/16/2022 ibuprofen (Advil) 600 mg Tablet Take 1 tablet by mouth every 6 hours. 65 tablet 08/08/2022 12/01/2022 oxyCODONE (Roxicodone) 5 mg Tablet Take 1 tablet by mouth every 4 hours as needed for Pain (Severe pain (8-10)). 16 tablet 08/08/2022 08/12/2022 senna-docusate (Pericolace) 8.6-50 mg Tablet Take 2 tablets by mouth 2 times daily as needed for Constipation. 60 tablet 1 08/08/2022 12/01/2022 cyclobenzaprine (FLEXERIL) 10 mg tablet Take 10 mg by mouth 3 times daily as needed. 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 VSS, on RA. Blood pressure WNL once AM BP meds given. Does not endorse nausea, tolerated regular diet for breakfast/lunch. Abd. pain present. C4 PLANNER discontinued this AM and patient transitioned to PO oxy/Tylenol/Ibuprofen. Tolerating oxycodone well. ABD pad placed over abdominalincision. Incision parminder C/D/I, ABD binder in place. Up ambulating to bathroom with SBA and walker. Patient has a walker at home to use. Discharge instructions reviewed with patient, does not have questions at this time. PIVs removed. * Sharon Tse MD - 08/08/2022 7:40 AM EST Gynecologic Oncology Postoperative Progress Note ID: Katheryn Carranza is an 61 y.o. 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 Interval Events: -- NG tube removed -- Home atenolol added; continues with HTN overnight (BP: (168-171)/(99-100) Subjective: Katheryn reports she had a good night; feeling much better with NGT out. Reports she tolerated clears well overnight, no n/v. Looking forward to trying regular diet; plans to start slow. She is passing flatus and voiding without issue. Denies headache, vision changes, chest pain, shortness of breath, leg pain or swelling. Physical Exam: Last Set of Vitals and range of vitals over past 24 hours: Last value Range last 24 hrs Temperature Temp: 36.6 ??C (97.9 ??F) Temp: [36.4 ??C (97.5 ??F)-36.9 ??C (98.4 ??F)] Heart Rate Heart Rate: 66 Heart Rate: -- Blood Pressure BP: (!) 168/100 BP: (145-182)/(79-100) Respiratory Rate Resp: 20 Resp: [18-20] SpO2 SpO2: 94 % SpO2: [93 %-95 %] No intake or output data in the 24 hours ending 08/08/22 0754 UOP 1 unmeasured void overnight Body mass index is 36.69 kg/m??. Patient Vitals for the past 168 hrs: Weight 08/08/22 0400 100 kg (220 lb 7.4 oz) 08/01/22 2016 97.5 kg (215 lb) Gen: Resting comfortably in bed. NAD. Neuro: Alert and oriented. Cardiac: RRR. No murmurs Pulm: CTAB, no wheezes/rales/rhonchi, normal work of breathing Abd: Normoactive bowel sounds. Abdominal binder in place, removed. Abdomen moderately distended, norebound, guarding or percussion tenderness. Incision: VMLI, parminder intact, incision clean/dry/intact. Extremities: No lower extremity edema or calf tenderness Recent Labs 08/04/22 2324 08/01/22 2215 WBC 10.1* 12.6* HGB 13.6 13.7 HCT 39.1 39.3 PLATELET 285 286 Recent Labs 08/07/22 0516 08/06/22 0518 08/04/22 2324 NA 137 139 137 K 3.8 3.3* 3.6 CL 101 99 101 CO2 24 26 24 BUN 9 10 10 CREATININE 0.68* 0.65* 0.70 Studies: MRI Spine IMPRESSION 1. Acute superior endplate fracture of T12 with 20% vertebral body height loss. Minimal posterior bony retropulsion contributes to mild spinal canal stenosis at T11-T12. No cord contact or deformity.No definitive accompanying enhancing mass. 2. No osseous metastatic disease in the thoracic or lumbar spine. 08/05/2022: KUB FINDINGS/IMPRESSION: Esophagogastric tube tip projects over the stomach, although the side-port projects about the expected region of the GE junction (consider advancing). 08/05/2022: CT abdomen/pelvis FINDINGS: Included Lower Chest: Dependent and linear atelectasis of the included lung bases. ?? Liver: Unremarkable. Gallbladder: Unremarkable. Spleen: Unremarkable. Pancreas: Moderately atrophic. Adrenal Glands: Unremarkable. ?? RIGHT Kidney: Perinephric stranding LEFT Kidney: Absent. Urinary Bladder: Collapsed about a transurethral catheter (precluding assessment) and contains air. ?? GI: Moderate to severe gastric distention with fluid/heterogeneous material and air. Mildly distended proximal duodenum with air and fluid. Otherwise nondilated bowel. Appendix appears unremarkable. Moderate pancolonic stool burden, cecum to rectum. Mesentery/Peritoneum: Interval resection of pelvic mass with mild regional stranding. ?? Vasculature: Unremarkable. Osseous Structures: Redemonstrated mild compression deformity of T12 superior endplate. ?? IMPRESSION Findings suggesting pyelonephritis of the lone RIGHT kidney. Moderate to severe gastric distention. Mild atelectasis at the included lung bases. Moderate pancolonic stool burden Assessment and Plan Katheryn Carranza is an 61 y.o. 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 Postoperative course notable for gastric distension and N/V for which NGT was placed on POD#3 and GI consulted. EGD performed with no evidence of gastric outlet obstruction. NGT out POD#5, tolerating clears without issue, plan to advance diet today. Please see systems based plan below: Neuro:??Presenting concern was progressive bilateral lower extremity numbness, find to have a left paracentral disc herniation at L5/S1 as well as fracture at T12. Neurosurgery evaluation recommendedcontinued multimodal treatment of pain, consider steroid dose pack if radiculopathy returns/persists. No need for bracing of the compression fracture. Neurology consult opinion is radicular symptoms in femoral distribution were in part due to compression from ovarian mass, given improvement; signedoff. Symptoms appear to be improving, however, will need PT/OT evaluation for ability to ambulate unassisted given falls at home and LE weakness #Bilateral lower extremity numbness, weakness-improving #T12 compression fracture, nondisplaced # L5/S1 paracentral disc herniation ??? Neurosurgery, Neurology consulted, appreciate recommendations ? ? Will stop steroid dose pack (IV hydrocortisone 200 mg > prednisone 50>20>10>5 x 5 doses) given back pain has improved, less likely radicular symptoms ??? PT/OT evaluation, consider discharge with walker if indicated given recent history of falls #Analgesia #History of opioid dependence ??? Ordered for dilaudid C4 PLANNER due to patient discomfort and NG tube placement; will return to PO medications when pt able to tolerate regular diet, likely later today ??? Consider initiation of MAT as indicated per BIT team consult ??? Can add back home tizanidine, flexeril, gabapentin today with advancing diet ??? Home baclofen held ??? Lidocaine patches Psych: Patient reported acute on chronic exacerbation of opioid use disorder prior to surgery with prescription opioids purchased illicitly. BIT team consult for OUD agree with diagnosis of OUD givencravings, use of opioids, and are following with discussion of MAT initiation prior to discharge. Will attempt to limit narcotics and lean on multimodal regimen. Patient in agreement with BIT team and is open to MAT, as well as accepts Narcan on discharge. # History of anxiety and depression ??? Holding home amitriptyline, Seroquel given NPO status; will consider re- initiation with clamping trial today # Opioid use disorder ?? BIT team following, patient is considering possibility of initiation of MAT prior to discharge; appreciate recs ?? Offer Narcan at discharge ?? Cardiovascular:??History of hypertension, elevated blood pressures overnight (BP: (168-171)/(99-100) ). Her home atenolol was added yesterday, POD#5, although she remained hypertensive. ??? Continue close VS monitoring ??? Repeat CBC PRN ??? Continue home atenolol ??? Add lisinopril today ?? Pulmonary:??On room air, lung bases diminished breath sounds, mild improving nonproductive cough. Suspect atelectasis, possible component of COPD/reactive airway disease in setting of tobacco use. Atelectasis and mild pleural effusion seen on CT A/P. ??? Tobacco use- nicotine replacement PRN ??? Duonebs PRN ? ? Supplemental oxygen PRN to maintain sats >92% ??? Encourage incentive spirometry ?? GI:??Postop development of acute onset epigastric pain, nausea, profuse vomiting on POD#3, NG tube placed and EGD performed by GI which was significant only for a small pyloric ulcer. Suspect delayedemptying was due to recent surgery in combination of previously unrecognized chronic opioid use. ??? Advance to regular diet ??? IV Protonix scheduled ??? S/p surgery and GI consults, signed off ??? Pericolace, Miralax ??? Zofran, compazine??available PRN nausea. ?? Endo: no ongoing issues at this time. No known diabetes history. Hgb A1c 6.2. ?? Nutrition consult ordered ?? : Adequate output, voiding spontaneously. ??? Continue to monitor intake and output ?? FEK: No acute concerns ??? Trend lytes PRN ?? Onc:??Presented with suspected torsion of large 15 cm L ovarian cyst, now status post exploratory laparotomy, left salpingo-oophorectomy with findings consistent with benign serous cystadenoma. ??? Follow up in clinic 3-4 weeks postoperatively??for review of final pathology ?? ID: Afebrile. R kidney with findings suggesting possible pyelonephritis, however UA clean. ??? Received 2g Ancef intraop ?? Prophylaxis:? SCDs while in bed ??? Lovenox for VTE prophylaxis, started on on POD#1 ??? Encourage ambulation ??? Incentive spirometry ?? Dispo:?? Continues to require inpatient admission, discharge home likely tomorrow ?? Code Status: Full Code Pt discussed with attending physician, Dr. Mccartney. Sharon Tse MD PGY3 08/08/22 Associated attestation - Yakelin Mccartney MD - 08/08/2022 9:10 PM EST Patient seen and examined with the banking pin adjuster oncology team. I agree with their assessment and plan with the following additions: Feeling well today. Will advance to a regular diet and transition to po painmeds. If she tolerates these will d/c home. 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 VSS, on RA. Pt slightly hypertensive this AM - initiated PO home blood pressure medication. Team aware. BP decreased this afternoon. Does not endorse nausea. Abd. pain present, but denies need for intervention. On dilaudid C4 PLANNER and scheduled pain meds with good effect. Dressingremoved per team incision site C/D/I - placed dressing under abd. binder. NGT taped to 66cm in R nare this AM and clamped. Pt placed on clear liquids tolerating well. removed NGT this afternoon. * Miley Robin - 08/07/2022 6:59 AM EST Gynecologic Oncology Postoperative Progress Note ID: Katheryn Carranza is an 61 y.o. 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 Interval Events: -- Clamping trial for 4.5 hours with <50cc residual yesterday. NGT reconnected to low intermittent suction ON with 200cc output. -- Continues with HTN overnight (BP: (179-188)/(95-102) Subjective: Katheryn reports feeling some incisional pain this morning because she was able to sleep overnight andwas therefore not pushing her PCEA button. She also reports that her abdomen feels much better froma bloating standpoint, and does not feel the firmness in her upper abdomen that she did previously.She denies N/V and is feeling hungry. Denies belching. She had a large BM last night after an enema. She has passed some flatus. She is voiding without issue after fournier removal yesterday. Denies headache, vision changes, chest pain, shortness of breath, leg pain or swelling. Physical Exam: Last Set of Vitals and range of vitals over past 24 hours: Last value Range last 24 hrs Temperature Temp: 36.6 ??C (97.9 ??F) Temp: [36.4 ??C (97.5 ??F)-36.8 ??C (98.2 ??F)] Heart Rate Heart Rate: 66 Heart Rate: -- Blood Pressure BP: (!) 182/102 BP: (179-188)/(91-102) Respiratory Rate Resp: 18 Resp: [18-20] SpO2 SpO2: 94 % SpO2: [92 %-96 %] Intake/Output Summary (Last 24 hours) at 08/07/2022 0757 Last data filed at 08/07/2022 0507 Gross per 24 hour Intake 2437 ml Output 3200 ml Net -763 ml UOP 165cc/hr over the last 12h Body mass index is 35.78 kg/m??. Patient Vitals for the past 168 hrs: Weight 08/01/22 2016 97.5 kg (215 lb) Gen: Resting comfortably in bed. NAD. Neuro: Alert and oriented. Cardiac: RRR. No murmurs Pulm: CTAB, mild wheezes present in lower lung bases, normal work of breathing Abd: Normoactive bowel sounds. Abdomen remains distended, no rebound, guarding or percussion tenderness. Incision: Dressing removed, parminder intact, incision clean/dry/intact. Abdominal binder remained off to leave incision to air. Extremities: No lower extremity edema or calf tenderness Recent Labs 08/04/22 2324 08/01/22 2215 WBC 10.1* 12.6* HGB 13.6 13.7 HCT 39.1 39.3 PLATELET 285 286 Recent Labs 08/07/22 0516 08/06/22 0518 08/04/22 2324 NA 137 139 137 K 3.8 3.3* 3.6 CL 101 99 101 CO2 24 26 24 BUN 9 10 10 CREATININE 0.68* 0.65* 0.70 Latest Reference Range & Units 08/05/22 10:47 Color UA Yellow Yellow Appearance UA Clear Clear Spec [place] UA 1.005 - 1.030 1.011 pH UA 5.0 - 8.0 7.5 Protein UA Negative mg/dL Negative Glucose UA Negative mg/dL Negative Ketones UA Negative mg/dL Negative Bilirubin UA Negative mg/dL Negative Urobilinogen UA Normal mg/dL Normal Blood UA Negative mg/dL Negative Leukocytes UA Negative mcL Negative Nitrite UA Negative Negative Culture Reflexed No Studies: MRI Spine IMPRESSION 1. Acute superior endplate fracture of T12 with 20% vertebral body height loss. Minimal posterior bony retropulsion contributes to mild spinal canal stenosis at T11-T12. No cord contact or deformity.No definitive accompanying enhancing mass. 2. No osseous metastatic disease in the thoracic or lumbar spine. 08/05/2022: KUB FINDINGS/IMPRESSION: Esophagogastric tube tip projects over the stomach, although the side-port projects about the expected region of the GE junction (consider advancing). 08/05/2022: CT abdomen/pelvis FINDINGS: Included Lower Chest: Dependent and linear atelectasis of the included lung bases. ?? Liver: Unremarkable. Gallbladder: Unremarkable. Spleen: Unremarkable. Pancreas: Moderately atrophic. Adrenal Glands: Unremarkable. ?? RIGHT Kidney: Perinephric stranding LEFT Kidney: Absent. Urinary Bladder: Collapsed about a transurethral catheter (precluding assessment) and contains air. ?? GI: Moderate to severe gastric distention with fluid/heterogeneous material and air. Mildly distended proximal duodenum with air and fluid. Otherwise nondilated bowel. Appendix appears unremarkable. Moderate pancolonic stool burden, cecum to rectum. Mesentery/Peritoneum: Interval resection of pelvic mass with mild regional stranding. ?? Vasculature: Unremarkable. Osseous Structures: Redemonstrated mild compression deformity of T12 superior endplate. ?? IMPRESSION Findings suggesting pyelonephritis of the lone RIGHT kidney. Moderate to severe gastric distention. Mild atelectasis at the included lung bases. Moderate pancolonic stool burden Assessment and Plan Katheryn Carranza is an 61 y.o. 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 Postoperative course notable for gastric distension and N/V for which NGT was placed on POD#3 and GI consulted. EGD performed with no evidence of gastric outlet obstruction. General surgery also consulted with recommendation to pull NGT and advance diet. Passed clamping trial yesterday and has return of bowel function. Plan to pull NGT and advance diet to clears. Please see systems based plan below: Neuro:??Presenting concern was progressive bilateral lower extremity numbness, find to have a left paracentral disc herniation at L5/S1 as well as fracture at T12. Neurosurgery evaluation recommendedcontinued multimodal treatment of pain, consider steroid dose pack if radiculopathy returns/persists. No need for bracing of the compression fracture. Neurology consult opinion is radicular symptoms in femoral distribution were in part due to compression from ovarian mass, given improvement; signedoff. Symptoms appear to be improving, however, will need PT/OT evaluation for ability to ambulate unassisted given falls at home and LE weakness #Bilateral lower extremity numbness, weakness-improving #T12 compression fracture, nondisplaced # L5/S1 paracentral disc herniation ??? Neurosurgery, Neurology consulted, appreciate recommendations ? ? Will stop steroid dose pack (IV hydrocortisone 200 mg > prednisone 50>20>10>5 x 5 doses) given back pain has improved, less likely radicular symptoms ??? PT/OT evaluation, consider discharge with walker if indicated given recent history of falls #Analgesia #History of opioid dependence ??? Ordered for dilaudid C4 PLANNER due to patient discomfort and NG tube placement; will return to PO medications when pt able to tolerate regular diet, likely later today ??? Consider initiation of MAT as indicated per BIT team consult ??? Can add back home tizanidine, flexeril, gabapentin today with advancing diet ??? Home baclofen held ??? Lidocaine patches Psych: Patient reported acute on chronic exacerbation of opioid use disorder prior to surgery with prescription opioids purchased illicitly. BIT team consult for OUD agree with diagnosis of OUD givencravings, use of opioids, and are following with discussion of MAT initiation prior to discharge. Will attempt to limit narcotics and lean on multimodal regimen. Patient in agreement with BIT team and is open to MAT, as well as accepts Narcan on discharge. # History of anxiety and depression ??? Holding home amitriptyline, Seroquel given NPO status; will consider re- initiation with clamping trial today # Opioid use disorder ?? BIT team following, patient is considering possibility of initiation of MAT prior to discharge; appreciate recs ?? Offer Narcan at discharge ?? Cardiovascular:??History of hypertension, elevated blood pressures overnight (BP: (179-188)/(95-102) ) Additionally received one dose of IV hydralazine overnight. Will plan to increase to 10mg IV metoprolol q6hr today. ??? Continue close VS monitoring ??? Repeat CBC PRN ??? 10mg IV metoprolol q6 to end this AM ??? Restart home atenolol this AM. Plan to add lisinopril tomorrow. ?? Pulmonary:??On room air, lung bases diminished breath sounds, mild improving nonproductive cough. Suspect atelectasis, possible component of COPD/reactive airway disease in setting of tobacco use. Atelectasis and mild pleural effusion seen on CT A/P. ??? Tobacco use- nicotine replacement PRN ??? Duonebs PRN ? ? Supplemental oxygen PRN to maintain sats >92% ??? Encourage incentive spirometryl ?? GI:??Postop development of acute onset epigastric pain, nausea, profuse vomiting on POD#3, NG tube placed and EGD performed by GI which was significant only for a small pyloric ulcer. Suspect delayedemptying was due to recent surgery in combination of previously unrecognized chronic opioid use. Ptnow s/p clamping trial with minimal residual, resolution of N/V, and continued bowel function. S/p large BM after enema. ??? Remove NGT this AM ??? Advance diet to clears, will advance further if tolerated ??? IV Protonix scheduled ??? S/p surgery and GI consults, signed off ??? Pericolace, Miralax ??? Zofran, compazine??available PRN nausea. ?? Endo: no ongoing issues at this time. No known diabetes history. Hgb A1c 6.2. ?? Nutrition consult ordered ?? : Adequate output, voiding spontaneously. ??? Continue to monitor intake and output ?? FEK: Running D5NS w/ 20mEq K at 100ml/hr ??? D/c IV fluids this AM ??? Trend lytes PRN ?? Onc:??Presented with suspected torsion of large 15 cm L ovarian cyst, now status post exploratory laparotomy, left salpingo-oophorectomy with findings consistent with benign serous cystadenoma. ??? Follow up in clinic 3-4 weeks postoperatively??for review of final pathology ?? ID: Afebrile. R kidney with findings suggesting possible pyelonephritis, however UA clean. ??? Received 2g Ancef intraop ?? Prophylaxis:? SCDs while in bed ??? Lovenox for VTE prophylaxis, started on on POD#1 ??? Encourage ambulation ??? Incentive spirometry ?? Dispo:?? Continues to require inpatient admission, discharge home likely tomorrow vs Tuesday pendingadvancement of diet and toleration of oral pain control. ?? Code Status: Full Code Pt discussed with attending physician, Dr. Mccartney. Miley Robin MD PGY4 08/07/22 Associated attestation - Yakelin Mccartney MD - 08/08/2022 8:23 AM EST Patient seen and examined with the banking pin adjuster oncology team. I agree with their assessment and plan with the following additions: Feeling OK. Pain controlled. No further nausea on clear liquids. Will continue clears today as she is consuming a high volume of po intake. If no nausea will advance to regulardiet tomorrow and transition to po analgesia. * Tosin Mcknight RN - 08/07/2022 5:56 AM EST OUTCOME EVALUATION NOTE: OUTCOME SUMMARY: Katheryn Carranza is POD5 LSO and diagnostic lap. A&Ox4 and VSS. Continues to be hypertensive. Team aware. Does not endorse nausea. Endorses abd pain, but denies need for intervention. On dilaudid C4 PLANNER and scheduled pain meds with good effect. D5 NS with KCL continued at 100 mL/hr. Scant drainage at incision site. Dressing C/D/I. NGT taped to 66cm in R nare on low continuous suction, clamped intermittently for PO meds. Patient sleeping between nursing care. PLAN MOVING FORWARD: Monitor labs and vitals Pain management Encourage ambulation Remove NGT today? INDIVIDUALIZED FALL PREVENTION INTERVENTIONS: Patient-specific fall risk factors per assessment: [current deficits]: IV pole, hospitalization, hxof recent falls, pain, recent surgery, NGT Assistance [level of assistance required for transfers and ambulation]: Ax1 w/ FWW Supervision [direct monitoring required during toileting and ADLs]: Hands on, eyes on Surveillance [continuous indirect monitoring]: Masimo, purposeful rounding, bed alarm on, call light in reach, room near unit station Patient-specific fall prevention interventions for sensory deficits provided, if applicable: [X] N/A CPG GOAL OUTCOME EVALUATION: * Herlinda Flores RN - 08/06/2022 6:07 PM EST Patient Summary Reason for admission: Fall at home, numbness of LE, abd pain, found adnexal mass-->cystadenoma POD 4 LSO and diagnostic lap Relevant PMH: anxiety, depression, HTN, current smoker, marijuana use, 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 Pt had 1 small bowel movement this shift. NGT clamped from 1247- 1710 residual <50 ml when reconnected per MD order. R nare at 66cm. Walked with PT. Sat in chair. Pain continues to be managed with Dilaudid C4 PLANNER and tylenol. Diet changed to NPO give meds. Fournier removed at 1300. Voided 400ml within specific time frame. Incision has scant dried drainage, parminder intact. IVF changed see AUG. Mag and K replaced. Baseline Weight: 97.5 kg (08/01) Action List Pain management Encourage ambulation Monitor BP's ? Remove NGT tonight or tomorrow Give suppository a couple hours after enema * Demetra Hess, PT - 08/06/2022 3:05 PM EST Physical Therapy Note Treatment Number PT: 2 Patient profile: Katheryn Carranza is a 61 y.o. female who presented to ED with abdominal pain, 2 weeks of LE radicular symptoms found to have??15 cm complex adnexal mass??T12 compression fracture and L5-S1 paracentral disc herniation, s/p Neurosurgery evaluation, who is??s/p diagnostic laparoscopy, converted to exporatory laparotomy and left salpingo-oophorectomy for suspected torsion of 15 cm likely benign??mucinous cystadenofibroma. Interval History (per general surgery note 08/06/2022): - EGD yesterday unrevealing - A1C 6.2 - NGT dropped off significantly, 50cc recorded yesterday - Bowel movement x2, continues to pass flatus - This morning Katheryn reports improvement in symptoms. No longer feeling nauseous. Having pain around her incision site that is worsened with movement, but no longer having epigastric pain. Social History: Home set-up: Lives with her , Prieto, in a two level home in [place], [place]. Bedroom and bathroom she typically uses is on the second level, but she's been staying on the first level recently. Bathroom Set-up: Tub-shower on first level, walk-in shower on second level. Stairs: 2 REGINO, FOS b/t levels Baseline Mobility: Has been ambulating with a stool. Independent at baseline, but has been requiring more assistance due to BLE pain. and children (live close by) are able to help as needed. Has been sleeping in a recliner chair on the first level recently. Equipment at home: NA Fall history: Reports a fall prior to admission where her legs gave out while trying to pull her pants up. Reports 3 falls in the past 3 months. Precautions/Special Considerations: Full Code, At risk to Fall, HTN, Abdominal Binder, T12, Abdominal incision, compression fx (no bracing required per neurosurg) Lines: Ted, PIV, NG tube, C4 PLANNER Activity Orders: Up with assistance Diet: NPO (NG tube) Mobility and Positioning Recommendations: ?? Pt. to utilize 1 person assist and front-wheeled walker for ambulation and transfers with nursing. ?? Please encourage up to chair for meal times as able. ?? Pt encouraged to ambulate frequently with staff, getting into the bathroom for toileting and walking out in the young >/= 3 times daily as able. Subjective: I'll walk a bit further but not too much more. I'm tired Objective: Patient seen for physical therapy and demonstrated the following: Pain: Reports moderate mid-low back with transfers, pt used C4 PLANNER at start of session and end of session, numbness in BLE Vital Signs: Stable on RA, SpO2 >90% throughout, HR 70-80s Mental Status: alert, oriented to person, place, and time Bed Mobility: Supine to Sit: Not assessed, pt started session in bedside recliner chair Sit to Supine: Not assessed, pt ended session in beside recliner chair Transfers: Sit to Stand: CGA x2 from bedside chair and min assist x1 from toilet to front- wheeled walker, increased time and effort, verbal cues for hand placement, unable to void on toilet Stand to Sit: CGA x1 from front-wheeled walker to toilet and bedside chair, decreased eccentric control, verbal cues for hand placement Gait: Distance: 70' + 70' Device used: Front-wheeled walker Level of assist: CGA + chair follow Gait mechanics: Decreased gait speed, short step length/height, wide DAVID, forward trunk with heavy reliance on BUE Stairs: NA Balance: Sitting Static: Good Sitting Dynamic: Good Standing Static: Fair+ with a front-wheeled walker Standing Dynamic/Gait: Fair with a front-wheeled walker Therapeutic Exercise: Not performed Education: Patient has been educated on transfers, gait, assistive device use/technique, balance, activity pacing/energy conservation, safety and role of therapy and verbalizes and demonstrates understanding. Patient status, treatment, and mobility recommendations discussed with nursing. Pt left in bedside recliner chair, with all needs met, with call lange in reach and with chair alarmactive following visit. Assessment: Katheryn Carranza was seen today for physical therapy treatment session for continuation of POC. Pt pleasant and motivated to participate in therapy session. Pt performed multiple sit<>stand transfers and ambulated ~70' x2 in the hallway with CGA, demonstrating significant improvements in activity tolerance and endurance. Despite this, pt continues to be limited by pain, global deco nditioning, endurance, and balance deficits; therefore, would benefit from a short rehab stay at [facility] rehab facility to progress mobility and maximize functional mobility, independence, and safety prior to discharging home, particularly as she remains a high fall risk with multiple recent falls. Pt will benefit from ongoing therapeutic interventions to achieve therapy goals. Discharge Recommendations: Based on the current findings, Anticipated Discharge Disposition (PT): acute rehabilitation facility when medically ready for [...] be determined Goals: To be achieved by 08/18/22: ONGOING ?? 1. Pt. to demonstrate knowledge of safety limitations and precautions and will appropriately request assistance for functional activities and to mobilize. 2. Pt. to perform bed mobility independently. 3. Pt. to perform all transfers with modified independence using a front wheeled walker. 4. Pt. to ambulate 150 feet with modified independence using a a front wheeled walker. 5. Pt. to ambulate up/down 2 step/stairs using one hand hold with min A. 6. Family or caregiver to demonstrate understanding of therapeutic interventions to support the care of the patient. 7. Pt will tolerate progression towards upright with stable vital signs. Plan: Therapy Frequency (PT): 2-4 times/wk for balance training, bed mobility training, gait training, patient/family education, stair training and transfer training as outlined in initial evaluation. Patient agrees with plan as stated. Time IN/OUT: 14:36-15:05 Total Minutes, Physical Therapy: 29 Billing Code: TEF x2 Demetra Hess, PT Pager: [phone] Physical Therapy Inpatient Rehabilitation Department RON * Fifi Valles, RD - 08/06/2022 12:04 PM EST Nutrition Consult Note Katheryn Carranza is a 61 y.o. female who presented to ED with abdominal pain, 2 weeks of LE radicularsymptoms found to have??15 cm complex adnexal mass??T12 compression fracture and L5-S1 paracentral disc herniation, s/p Neurosurgery evaluation, who is POD#2??s/p diagnostic laparoscopy, converted toexporatory laparotomy and left salpingo-oophorectomy for suspected torsion of 15 cm likely benign??mucinous cystadenofibroma. Reason for intervention: Education - prediabetes Nutrition Recommendations: Met with Katheryn to discuss diet for prediabetes (A1c 6.2). Typical intake is 2-3 meals/day includingyogurt and [place] toast with syrup, sandwich with cheese and deli meat for lunch and meat/potatoes/vegetable for dinner. Drinks coffee with sugar and flavored creamer. 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 Reviewed sources of added sugar in diet and strategies to decrease. Reviewed the portion plate as a visual for building balanced meals, including lean protein, whole grains and non-starchy vegetables. Written materials provided. Pt verbalizes understanding. All questions answered at this time. Pt has RD contact information forfuture questions. Would benefit from diet reinforcement outpatient. Today is day # 4 of NPO/clear liquid diet, increasing risk of malnutrition. If clinically unable toadvance oral diet consider consult to Nutrition Services to evaluate for potential nutrition support. I was able to discuss plan with provider [employer] [id number]. [address] Pager #: [phone] * Lola Barahona MD - 08/06/2022 6:48 AM EST Gynecologic Oncology Postoperative Progress Note ID: Katheryn Carranza is an 61 y.o. 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 Interval Events: -- NG tube remained in place; 600mL in canister at bedside -- GI consulted; EGD performed ruling out gastric outlet obstruction. -- Severely hypertensive overnight (BP: (164-179)/(88-102) ), anti-hypertensive increased in frequency to IV metoprolol 5mg q4 hours and IV hydralazine Subjective: Katheryn reports feeling pain due to the NG tube. She was only able to sleep approximately 1 hour overnight. She was able to ambulate several times yesterday and had a bowel movement last night, so she feels happy about that, but is generally feeling very fatigued. She continues to have bilateral lower extremity numbness and some mild discomfort in her right lower back. She continues to pass flatus,but also reports some burping and hiccups overnight. Denies headache, vision changes, chest pain, shortness of breath, leg pain or swelling. Physical Exam: Last Set of Vitals and range of vitals over past 24 hours: Last value Range last 24 hrs Temperature Temp: 36.6 ??C (97.9 ??F) Temp: [36.6 ??C (97.9 ??F)-37.1 ??C (98.8 ??F)] Heart Rate Heart Rate: 66 Heart Rate: [66-72] Blood Pressure BP: 179/88 BP: (146-187)/(83-105) Respiratory Rate Resp: 18 Resp: [16-20] SpO2 SpO2: 91 % SpO2: [91 %-99 %] Intake/Output Summary (Last 24 hours) at 08/06/2022 0648 Last data filed at 08/06/2022 0438 Gross per 24 hour Intake 913.33 ml Output 4255 ml Net -3341.67 ml UOP 191.6 mL/hr over the last 12 recorded hours Body mass index is 35.78 kg/m??. Patient Vitals for the past 168 hrs: Weight 08/01/22 2016 97.5 kg (215 lb) Gen: Resting comfortably in bed. NAD. Neuro: Alert and oriented. Cardiac: RRR. No murmurs Pulm: CTAB, mild wheezes present in lower lung bases, coughing intermittently during exam, normal work of breathing Abd: Hypoactive bowel sounds. Abdomen remains distended, no rebound, guarding or percussion tenderness. Incision: Dressing removed, parminder intact, incision clean/dry/intact. Abdominal binder remained off to leave incision to air. : Fournier draining clear yellow urine. Extremities: No lower extremity edema or calf tenderness, SCDs in place Last 3 Lytes Recent Labs 08/06/22 0518 08/04/22 2324 08/01/22 2215 NA 139 137 136 K 3.3* 3.6 4.1 CL 99 101 101 CO2 BUN 10 10 13 CREATININE 0.65* 0.70 0.78 Latest Reference Range & Units 08/05/22 10:47 Color UA Yellow Yellow Appearance UA Clear Clear Spec [place] UA 1.005 - 1.030 1.011 pH UA 5.0 - 8.0 7.5 Protein UA Negative mg/dL Negative Glucose UA Negative mg/dL Negative Ketones UA Negative mg/dL Negative Bilirubin UA Negative mg/dL Negative Urobilinogen UA Normal mg/dL Normal Blood UA Negative mg/dL Negative Leukocytes UA Negative mcL Negative Nitrite UA Negative Negative Culture Reflexed No Studies: MRI Spine IMPRESSION 1. Acute superior endplate fracture of T12 with 20% vertebral body height loss. Minimal posterior bony retropulsion contributes to mild spinal canal stenosis at T11-T12. No cord contact or deformity.No definitive accompanying enhancing mass. 2. No osseous metastatic disease in the thoracic or lumbar spine. 08/05/2022: KUB FINDINGS/IMPRESSION: Esophagogastric tube tip projects over the stomach, although the side-port projects about the expected region of the GE junction (consider advancing). 08/05/2022: CT abdomen/pelvis FINDINGS: Included Lower Chest: Dependent and linear atelectasis of the included lung bases. ?? Liver: Unremarkable. Gallbladder: Unremarkable. Spleen: Unremarkable. Pancreas: Moderately atrophic. Adrenal Glands: Unremarkable. ?? RIGHT Kidney: Perinephric stranding LEFT Kidney: Absent. Urinary Bladder: Collapsed about a transurethral catheter (precluding assessment) and contains air. ?? GI: Moderate to severe gastric distention with fluid/heterogeneous material and air. Mildly distended proximal duodenum with air and fluid. Otherwise nondilated bowel. Appendix appears unremarkable. Moderate pancolonic stool burden, cecum to rectum. Mesentery/Peritoneum: Interval resection of pelvic mass with mild regional stranding. ?? Vasculature: Unremarkable. Osseous Structures: Redemonstrated mild compression deformity of T12 superior endplate. ?? IMPRESSION Findings suggesting pyelonephritis of the lone RIGHT kidney. Moderate to severe gastric distention. Mild atelectasis at the included lung bases. Moderate pancolonic stool burden Assessment and Plan Katheryn Carranza is an 61 y.o. 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 Patient with acute episode of pain, nausea, and profuse vomiting yesterday overnight. NG tube remains in place. GI consulted and EGD performed with no evidence of gastric outlet obstruction, but one small ucler with minimal inflammation at the pylorus. Pt with no episodes of nausea or vomiting overn ight. Will continue with gastric decompression and plan for continued bowel regimen with enemas today. Will consider removal of NG tube tomorrow. Please see systems based plan below: Neuro:??Presenting concern was progressive bilateral lower extremity numbness, find to have a left paracentral disc herniation at L5/S1 as well as fracture at T12. Neurosurgery evaluation recommendedcontinued multimodal treatment of pain, consider steroid dose pack if radiculopathy returns/persists. No need for bracing of the compression fracture. Neurology consult opinion is radicular symptoms in femoral distribution were in part due to compression from ovarian mass, given improvement; signedoff. Symptoms appear to be improving, however, will need PT/OT evaluation for ability to ambulate unassisted given falls at home and LE weakness #Bilateral lower extremity numbness, weakness-improving #T12 compression fracture, nondisplaced # L5/S1 paracentral disc herniation ??? Neurosurgery, Neurology consulted, appreciate recommendations ? ? Will stop steroid dose pack (IV hydrocortisone 200 mg > prednisone 50>20>10>5 x 5 doses) given back pain has improved, less likely radicular symptoms ??? PT/OT evaluation, consider discharge with walker if indicated given recent history of falls #Analgesia #History of opioid dependence ??? Ordered for dilaudid C4 PLANNER due to patient discomfort and NG tube placement; will return to PO medications when pt able to tolerate regular diet ??? Consider initiation of MAT as indicated per BIT team consult ??? Holding home tizanidine, flexeril, gabapentin given NPO status ??? Home baclofen held ??? Lidocaine patches Psych: Patient reported acute on chronic exacerbation of opioid use disorder prior to surgery with prescription opioids purchased illicitly. BIT team consult for OUD agree with diagnosis of OUD givencravings, use of opioids, and are following with discussion of MAT initiation prior to discharge. Will attempt to limit narcotics and lean on multimodal regimen. Patient in agreement with BIT team and is open to MAT, as well as accepts Narcan on discharge. # History of anxiety and depression ??? Holding home amitriptyline, Seroquel given NPO status; will consider re- initiation with clamping trial today # Opioid use disorder ?? BIT team following, patient is considering possibility of initiation of MAT prior to discharge; appreciate recs ?? Offer Narcan at discharge ?? Cardiovascular:??History of hypertension, elevated blood pressures overnight (BP: (164-179)/(88-102) ) despite 5mg IV metoprolol. Additionally received one dose of IV hydralazine overnight. Will planto increase to 10mg IV metoprolol q6hr today. ??? Continue close VS monitoring ??? Repeat CBC PRN ??? Home atenolol held given NPO status ?? Pulmonary:??On room air, lung bases diminished breath sounds, mild improving nonproductive cough. Suspect atelectasis, possible component of COPD/reactive airway disease in setting of tobacco use. Atelectasis and mild pleural effusion seen on CT A/P. Encouraged incentive spirometer as well as continue Duonebs. ??? Tobacco use- nicotine replacement PRN ??? Duonebs PRN ? ? Supplemental oxygen PRN to maintain sats >92% ?? GI:??Overnight yesterday acute onset epigastric pain, nausea, profuse vomiting. NG tube placed and EGD performed yesterday by GI which was significant only for a small pyloric ulcer. Will plan for continued NPO status and increased bowel regimen today. Suspect delayed emptying was due to recent surgery in combination of previously unrecognized chronic opioid use. ??? NPO ??? NG tube to low intermittent suction ??? IV Protonix scheduled ??? Surgery consulted, GI consulted, appreciate recs ??? Pericolace standing, Miralax PRN ??? Will plan for enemas today ??? Zofran, compazine??available PRN nausea. ?? Endo: no ongoing issues at this time. No known diabetes history. Hgb A1c 6.2. ?? Nutrition consult ordered ?? :??Fournier catheter in place. Urine output adequate post-operatively.? Continue to monitor intake and output ??? Discontinue fournier catheter when ambulatory without assistance ?? FEK: Ordered for 100mL/hr LR. Adequate urine output. ??? Lytes remarkable for hypokalemia. Will plan to add K to IVF today. ??? Trend PRN ?? Onc:??Presented with suspected torsion of large 15 cm L ovarian cyst, now status post exploratory laparotomy, left salpingo-oophorectomy with findings consistent with benign serous cystadenoma. ??? Follow up in clinic 2 weeks postoperatively??for review of final pathology ?? ID: Afebrile. R kidney with findings suggesting possible pyelonephritis, however UA clean. Fournier remains in place ??? Received 2g Ancef intraop ?? Prophylaxis:? SCDs while in bed ??? Lovenox for VTE prophylaxis, started on on POD#1 ??? Encourage ambulation ??? Incentive spirometry ?? Dispo:?? Continues to require inpatient admission, discharge on POD#5-6 pending clinical course. ?? Code Status: Full Code Lola Barahona MD PGY-3 * Tosin Mcknight RN - 08/06/2022 4:53 AM EST Assumed care of patient at 0300. Patient very anxious, unable to verbalize why. Patient has not been receiving home seroquel and amitriptyline, which she states may be the reason she is anxious. Teamnotified. 1x of benadryl ordered and administered with good effect. A&Ox4 and VSS. Hypertensive, team aware. Fournier draining well. NGT to R nostril, taped at 66cm, set to low continuous suction. LR continued at 100 mL/hr and dilaudid C4 PLANNER in use. Patient sleeping between nursing care. * Bubba Schroeder MD - 08/06/2022 2:30 AM EST Paged by RN to review patient blood pressures. Patient asymptomatic, resting. BP: 173/100, 175/100 Spoke with pharmacist who recommended increasing frequency of metoprolol to q4 hours rather than increasing dose. Also recommended 10mg IV hydralazine. Plan: - 10mg IV hydralazine - metoprolol IV 5mg q4hr - may consider cardiology curbside should elevated Bps persist Bubba Schroeder MD PGY-3 08/06/22 * Demetra Zapien - 08/05/2022 6:44 PM EST Assumed care at 1700. Second IV placed by vascular. Fluids restarted. Suppository given. Controlling pain with C4 PLANNER pump. * Jeannine Amos OT - 08/05/2022 1:28 PM EST Occupational Therapy Note Document Type: contact Total Minutes, Occupational Therapy: 0 Reason: Reviewed chart. Patient found to acute onset of epigastric pain and had NGT placed yesterday. Spoke with nursing staff this afternoon in effort to coordinate a time for OT session. Patient was off the unit for EGD. Will follow up as able and when appropriate. Pager: [phone] Jeannine Amos OT 08/05/2022 Occupational Therapy Rehabilitation Department * Antonio Rojas MD - 08/05/2022 7:13 AM EST Gynecologic Oncology Postoperative Progress Note ID: Katheryn Carranza is an 61 y.o. 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 Interval Events: -- Acute onset epigastric pain, nausea, profuse vomiting overnight, NG tube placed with 1 L guo-colored output -- Severely hypertensive overnight (BP: (151-198)/(67-129) ), received 1x 5 mg IV Lopressor with good effect -- CT A/P with severe gastric distention, mildly dilated proximal duodenum with air and fluid, R lone kidney with stranding concerning for possible pyelonephritis -- KUB obtained with adequate placement of NG tube, consider advancing 5 -10 cm Subjective: Katheryn reports that she is uncomfortable with the NG tube in place. She reports her pain started with mid-epigastric pain, and transformed into upper-abdominal tightness overnight followed by vomiting. [place] warm earlier but no fever or chills. Since the NG tube was placed she has felt less nauseated. She has lightheadness or dizziness. Passing flatus. No BM. She continues to have some mild bilateral LE numbness, but no radicular pain or back pain at this time. Denies headache, vision changes, chest pain, shortness of breath, leg pain or swelling. Physical Exam: Last Set of Vitals and range of vitals over past 24 hours: Last value Range last 24 hrs Temperature Temp: 36.7 ??C (98.1 ??F) Temp: [36.4 ??C (97.5 ??F)-36.8 ??C (98.2 ??F)] Heart Rate Heart Rate: 76 Heart Rate: -- Blood Pressure BP: 151/82 BP: (151-198)/(67-129) Respiratory Rate Resp: 20 Resp: [20-22] SpO2 SpO2: 92 % SpO2: [91 %-97 %] Intake/Output Summary (Last 24 hours) at 08/05/2022 0720 Last data filed at 08/05/2022 0545 Gross per 24 hour Intake 3864 ml Output 4600 ml Net -736 ml UOP 141 mL/hr over the last 6 recorded hours Body mass index is 35.78 kg/m??. Patient Vitals for the past 168 hrs: Weight 08/01/222015 97.5 kg (215 lb) Gen: Resting comfortably in bed. NAD. Neuro: Alert and oriented. Cardiac: RRR. No murmurs Pulm: CTAB, wheezes present in lower lung bases, coughing intermittently during exam, normal work of breathing Abd: Hypoactive bowel sounds. No succussion splash. Abdomen is tautly distended, no rebound, guarding or percussion tenderness. Incision: Dressing removed, parminder intact, incision clean/dry/intact. : Fournier draining clear yellow urine. Extremities: No lower extremity edema or calf tenderness, SCDs in place Laboratory (Last 24 Hours): Latest Reference Range & Units 08/04/22 23:24 WBC 4.0 - 9.5 x10(3)/mcL 10.1 (H) RBC 4.00 - 5.21 x10(6)/mcL 4.22 Hemoglobin 11.7 - 15.5 g/dL 13.6 Hematocrit 35.7 - 45.8 % 39.1 MCV 82.6 - 94.4 fL 92.7 MCH 27.1 - 32.0 pg 32.2 (H) MCHC 31.7 - 35.0 g/dL 34.8 RDWSD 37.0 - 46.0 fL 41.6 RDWCV 11.5 - 14.1 % 12.3 Platelets 145 - 357 x10(3)/mcL 285 MPV 7.6 - 12.9 fL 8.7 nRBC % Auto % 0.0 nRBC Abs Auto 0.000 - 0.000 x10(3)/mcL 0.000 Neutr Abs (ANC) 1.70 - 6.10 x10(3)/mcL 6.86 (H) Neutrophils % % 68.0 Immature Gran % % 0.90 Lymphocytes % % 24.6 Monocytes % % 6.1 Eosinophils % % 0.3 Basophils % % 0.1 Lucrecia Gran Abs 0.00 - 0.04 x10(3)/mcL 0.09 (H) Lymphocytes Abs 0.9 - 3.2 x10(3)/mcL 2.5 Monocyte Abs 0.3 - 0.9 x10(3)/mcL 0.6 Eosinophils Abs 0.0 - 0.4 x10(3)/mcL 0.0 Basophils Abs 0.0 - 0.1 x10(3)/mcL 0.0 Sodium 135 - 145 mmol/L 137 Potassium 3.5 - 5.0 mmol/L 3.6 Chloride 98 - 107 mmol/L 101 CO2 22 - 31 mmol/L 24 Anion Gap 5 - 15 mmol/L 12 BUN 8 - 18 mg/dL 10 Creatinine 0.70 - 1.20 mg/dL 0.70 Estimated GFR >=60 mL/min/1.73 m?? 98 Calcium 8.5 - 10.5 mg/dL 9.2 Glucose Fasting 65 - 99 mg/dL 97 Studies: MRI Spine IMPRESSION 1. Acute superior endplate fracture of T12 with 20% vertebral body height loss. Minimal posterior bony retropulsion contributes to mild spinal canal stenosis at T11-T12. No cord contact or deformity.No definitive accompanying enhancing mass. 2. No osseous metastatic disease in the thoracic or lumbar spine. 08/05/2022: KUB FINDINGS/IMPRESSION: Esophagogastric tube tip projects over the stomach, although the side-port projects about the expected region of the GE junction (consider advancing). 08/05/2022: CT abdomen/pelvis FINDINGS: Included Lower Chest: Dependent and linear atelectasis of the included lung bases. ?? Liver: Unremarkable. Gallbladder: Unremarkable. Spleen: Unremarkable. Pancreas: Moderately atrophic. Adrenal Glands: Unremarkable. ?? RIGHT Kidney: Perinephric stranding LEFT Kidney: Absent. Urinary Bladder: Collapsed about a transurethral catheter (precluding assessment) and contains air. ?? GI: Moderate to severe gastric distention with fluid/heterogeneous material and air. Mildly distended proximal duodenum with air and fluid. Otherwise nondilated bowel. Appendix appears unremarkable. Moderate pancolonic stool burden, cecum to rectum. Mesentery/Peritoneum: Interval resection of pelvic mass with mild regional stranding. ?? Vasculature: Unremarkable. Osseous Structures: Redemonstrated mild compression deformity of T12 superior endplate. ?? IMPRESSION Findings suggesting pyelonephritis of the lone RIGHT kidney. Moderate to severe gastric distention. Mild atelectasis at the included lung bases. Moderate pancolonic stool burden Assessment and Plan Katheryn Carranza is an 61 y.o. 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 Overnight, acute onset epigastric pain, nausea, profuse vomiting overnight, NG tube placed with 1 Ltan-colored output. CT A/P with severe gastric distention, mildly dilated proximal duodenum with air and fluid, no other bowel dilation or air fluid levels consistent with ileus, R lone kidney with stranding concerning for possible pyelonephritis. KUB obtained with adequate placement of NG tube. Cbc, CMP, amylase and lipase normal. Abdominal exam was reassuring without peritoneal signs, but remains distended. Most likely delayed gastric emptying is postsurgical state and use of narcotics. Surgery was consulted who recommended gastric decompression via NGT, keep NPO, and minimize narcotics. Will plan to consult GI today to consider possible causes of gastric distention including rarer acute gastric outlet obstruction or acute causes of gastroparesis. No diabetes history, recent surgery or opioid use disorder could contribute to delayed gastric emptying. Will plan conservative management with NG tube decompression. Lower concern for ileus, bowel obstruction or perforation. Given findings on CT on R kidney will add on UA for ruling out pyelonephritis. Please see systems based plan below: Neuro:??Presenting concern was progressive bilateral lower extremity numbness, find to have a left paracentral disc herniation at L5/S1 as well as fracture at T12. Neurosurgery evaluation recommendedcontinued multimodal treatment of pain, consider steroid dose pack if radiculopathy returns/persists. No need for bracing of the compression fracture. Neurology consult opinion is radicular symptoms in femoral distribution were in part due to compression from ovarian mass, given improvement; signedoff. Symptoms appear to be improving, however, will need PT/OT evaluation for ability to ambulate unassisted given falls at home and LE weakness #Bilateral lower extremity numbness, weakness-improving #T12 compression fracture, nondisplaced # L5/S1 paracentral disc herniation ??? Neurosurgery, Neurology consulted, appreciate recommendations ? ? Will stop steroid dose pack (IV hydrocortisone 200 mg > prednisone 50>20>10>5 x 5 doses) given back pain has improved, less likely radicular symptoms ??? PT/OT evaluation, consider discharge with walker if indicated given recent history of falls #Analgesia #History of opioid dependence ? ? Tylenol, toradol-->ibuprofen and PRN oxycodone for pain - transition to oral pain medications as tolerated as above. ??? Consider initiation of MAT as indicated per BIT team consult ??? Home tizanidine, flexeril, gabapentin continued ??? Home baclofen held ??? Lidocaine patches Psych: Patient reported acute on chronic exacerbation of opioid use disorder prior to surgery with prescription opioids purchased illicitly. BIT team consult for OUD agree with diagnosis of OUD givencravings, use of opioids, and are following with discussion of MAT initiation prior to discharge. Will attempt to limit narcotics and lean on multimodal regimen. Patient in agreement with BIT team and is open to MAT, as well as accepts Narcan on discharge. # History of anxiety and depression ??? Home amitriptyline, Seroquel continued # Opioid use disorder ?? BIT team following, patient is considering possibility of initiation of MAT prior to discharge; appreciate recs ?? Offer Narcan at discharge ?? Cardiovascular:??History of hypertension, elevated blood pressures overnight (BP: (151-198)/(67-129) ), on home atenolol, added lisinopril yesterday. Could continue to uptitrate PRN suspect elevated BP are in setting of pain and coughing. Severely hypertensive overnight (BP: (151-198)/(67-129) ), received 1x 5 mg IV Lopressor with good effect. ??? Continue close VS monitoring ??? Repeat CBC PRN ??? Home atenolol reordered, added lisinopril yesterday. ?? Pulmonary:??On room air, lung bases diminished breath sounds, mild improiving nonproductive cough. Suspect atelectasis, possible component of COPD/reactive airway disease in setting of tobacco use. Atelectasis and mild pleural effusion seen on CT A/P. Encouraged incentive spirometer as well as continue DuoNebs. ??? Tobacco use- nicotine replacement PRN ??? DuoNebs PRN ? ? Supplemental oxygen PRN to maintain sats >92% ?? GI:??Overnight acute onset epigastric pain, nausea, profuse vomiting overnight, NG tube placed with1 L guo-colored output. CT A/P with severe gastric distention, mildly dilated proximal duodenum with air and fluid, no other bowel dilation or air fluid levels consistent with ileus. Surgery was consulted who recommended gastric decompression via NGT, keep NPO, and minimize narcotics. Most likely delayed gastric emptying is postsurgical state and use of narcotics. Overall reassuring exam without peritoneal signs. Will plan to consult GI today to consider possible causes of gastric distention including rarer causes gastric outlet obstruction or acute causes of gastroparesis. CBC, CMP, amylase and lipase within normal limits. ??? NPO ??? NG tube to low intermittent suction ??? IV Protonix scheduled ??? Surgery consulted, GI consulted, appreciate recs ??? Pericolace standing, Miralax PRN ??? Zofran, compazine??available PRN nausea. ?? Endo: no ongoing issues at this time. No known diabetes history. Hgb A1c recommended per Surgery, ordered and pending. ?? :??Fournier catheter in place. Urine output adequate post-operatively.? Continue to monitor intake and output ??? Discontinue fournier catheter when ambulatory ?? FEK: Taking in adequate PO. Adequate urine output. ??? Lytes within normal on admission, and overnight; repeat PRN ??? Trend PRN ?? Onc:??Presented with suspected torsion of large 15 cm L ovarian cyst, now status post exploratory laparotomy, left salpingo-oophorectomy with findings consistent with benign serous cystadenoma. ??? Follow up in clinic 2 weeks postoperatively??for review of final pathology ?? ID: Afebrile,??mild leukocytosis on admission, now 10.1 today. No fevers, systemic symptoms to suspect infection. R kidney with findings suggesting possible pyelonephritis. Fournier remains in place ??? UA pending ??? Received 2g Ancef intraop ?? Prophylaxis:? SCDs while in bed ??? Lovenox for VTE prophylaxis, started on on POD#1 ??? Encourage ambulation ??? Incentive spirometry ?? Dispo:?? Continues to require inpatient admission, discharge on POD#4-5 pending clinical course. ?? Code Status: Full Code Angely Scruggs MD PGY-4 I saw and evaluated the patient with Dr. Scruggs, and I confirmed the history and physical findings as outlined, participated in the critical aspects of the patient's care, formulated the treatment plan, and I agree with the note as written. 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 BPs continue to be elevated - MD aware, Metoprolol 5 mg IVP given w/little effect, see VS flowsheet. Patient c/o -03/15 abd pain & indigestion, MD notified and assessed pt. IV Protonix, IV Dilaudid, and IV Toradol given w/little effect. Patient vomiting & belching in addition, Dr. Juanis potter aware & reassessed patient. IV Zofran given w/little effect. STAT abd CT done which showed no acute events just air per Dr. Schroeder. LR started @ 100 ml/hr via R PIV as ordered. CBC & BMP drawn, see lab results. Fournier patent & draining clear yellow urine, see I/O flowsheet. Patient still vomiting after CT, MD notified. IV Reglan given. MD quezada and gen surg consulted, NG tube placed for decompression via R nostril taped @ 58 cm. Light brown drainage coming from NGT - 750 ml presently. Baseline Weight: 97.5 kg (08/01) Action List Pain management NPO w/no meds Encourage ambulation Monitor BP's Monitor NGT Possibly back to OR for spinal issues while admitted?? 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 Called by RN for patient endorsing heart burn. In to see patient. S: Katheryn reports that she is very uncomfortable. Unable to dictate what exactly she is experiencingbut points to her left lower quadrant. She also reports that she is having frequent belching and was throwing up in her mouth. She does state that she was uncomfortable like this last night, but thinks that it is worse now. Denies chest pain, shortness of breath. Does not think her cough is worse, but does feel bothered by phlegm. Unable to clearly state whether pain is worse than her presenting pain prior to surgery. O: BP (!) 157/129 Pulse 76 Temp 36.6 ??C (97.9 ??F) (Oral) Resp 20 Ht 165.1 cm (5' 5) Wt97.5 kg (215 lb) SpO2 95% BMI 35.78 kg/m?? (BP not accurate with automatic as patient is coughing) Last BPs: 198/102 (manual) 176/107 189/95 165/90 Gen: anxious appearing, acutely distressed. alert and oriented, moving around uncomfortably in bed.Intermittently screaming. CV: regular rate and rhythm Pulm: wheezing in bilateral lower lung bases Abd: distended, firm with tympany of the upper abdomen. Lower abdomen is non- tympanic. Patient is moderately tender to palpation diffusely, but with moderate to severe point tenderness in the left lower quadrant. Not able to distract from pain. No rebound tenderness. + guarding. 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 Patient acutely uncomfortable with notable abdominal distention and tympany. That said, she has been quite distended at baseline although this does seem worse than prior exams. Patient now with wretching and frequent belching as well. Appears acutely distressed. Shortly after my assessment, she began vomiting bilious emesis. Concern for bowel perforation or obstruction given acute onset of pain, distention, emesis. She hasnot been febrile. Differential otherwise includes ileus, GERD, gas pain, or uncontrolled post-op pain in the setting of baseline narcotic use. Will proceed with STAT CTAP as plain film may be difficult to interpret in the setting of recent laparoscopy. Vital signs notable for worsening hypertension, which I do suspect is related to her uncontrolled pain. Discussed with pharmacist companion caregiver- okay to treat with 1x dose metoprolol with pulse in the 70s.If needing repeat treatment, add hydralazine IV. Unfortunately her blood pressure has been difficult to check because of acute distress. Plan: -- NPO -- CTAP with/without contrast stat -- IV pepcid -- CMP, CBC stat -- metoprolol 5mg IV once--> recheck BP manual in 15 minutes-->10mg IV hydralazine if requiring treatment -- 1x dose of Toradol, 1x dose of IV Dilaudid -- plan of care otherwise pending CT results Addendum: 0222 CTAP: IMPRESSION Findings suggesting pyelonephritis of the lone RIGHT kidney. Moderate to severe gastric distention. Mild atelectasis at the included lung bases. Moderate pancolonic stool burden S: patient continuing to vomit profusely, does not endorse nausea. Very uncomfortable in upper abdomen. AP: - 1x 10mg IV Reglan given - Curbside to Gen Surg who agreed with NGT. Concerned about gastric outlet obstruction and suggested possible GI consult for consideration of endoscopy - NPO hold meds - 18 [place] NGT placed to 58cm with >1L output. Low intermittent suction - f/u KUB ordered - UA with reflux culture ordered given findings of pyelo on CT Patient discussed with on-call provider, Dr. Bib Schroeder MD PGY-3 08/04/22 Associated attestation - Yakelin Mccartney MD - 08/05/2022 8:05 PM EST Discussed with Dr. Schroeder. Plan developed together. Plan made for symptom control and will get CT scan. 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 Sat in chair today. Abdominal binder used with ambulation. Walked to pod 1 and back with 1 assist and walker. Dilaudid C4 PLANNER discontinued and started on PO oxycodone - pain remains 6-9/10 PRN oxycodone given x3 with moderate effect. BPs continued to be elevated - lisinopril started. PRN neb given per MD order for Action List Pain management Encourage ambulation Monitor Bps Possibly back to OR for spinal issues while admitted?? * Dawn Fung, PT - 08/04/2022 10:55 AM EST Physical Therapy Evaluation Patient profile: Katheryn Carranza is a 61 y.o. 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 Patient with the following active problems: Past Medical History: Diagnosis Date ??? ADD [...] MAMMOPLASTY, EVA performed by DEMETRA SOMMERS at [facility] MA[facility] OR ??? PRO LAP, DIAGNOSTIC ABDOMEN Left 08/02/2022 LAPAROSCOPY, DIAGNOSTIC, ABDOMEN (WRVU 5.14) performed by Antonio Rojas MD at [facility] OR ??? PRO REMOVAL OF OVARY/TUBE(S) Left 08/02/2022 @SALPINGO-OOPHORECTOMY, UNILATERAL OR EVA (WRVU 12.16) performed by Antonio Rojas MD at [facility] OR Active Non-Hospital Problems Diagnosis ??? Primary osteoarthritis of right knee ??? Carpal tunnel syndrome, bilateral ??? Trigger thumb of left hand ??? Knee pain, bilateral ??? Osteoarthritis of patellofemoral joint ??? Cervical spondylosis without myelopathy ??? Cervical disc displacement ??? Cervical radiculitis ??? Occipital neuralgia ??? Neck pain on left side ??? Breast hypertrophy Social History: Home set-up: lives with her in a 2 story house (has been sleeping in a chair on the first floor) Bathroom Set-up: full bathrooms on both first and second floor Stairs: 2 short steps to enter home, flight of stairs up to second floor Baseline Mobility: needed assistance with ADLs prior to admission, was using a stool as a walking aide Equipment at home: reports a friend has lent her a rollator Fall history: fell while standing and pulling up pants prior to admission, reports her legs gave out Precautions/Special Considerations: Fall risk, no bracing needed for thoracic compression fracture per neurosurgery Lines: fournier, SHEY Activity Orders: up with assistance Mobility and Positioning Recommendations: ?? Pt. to utilize 1 assist and FWW for transfers and short distance ambulation with nursing. ?? Please encourage up to chair for meal times as able. Subjective: ???I thought I could try (walking), but now I don't think I can?? Objective: Pt seen for evaluation today. Pain: Number Location At rest 12/13 abdomen With activity 02/13 abdomen Vital Signs: At Rest SpO2 (RA) 93% HR 67 bpm Mental Status: alert, oriented to person, place, and time Vision: WFL Skin: abdominal incision not visualized (abdominal binder in place). See lines above. Musculoskeletal: ROM: WFL Strength: WFL Sensation: pt reports tingling in BLEs Bed Mobility: Supine to Sit: min-mod assist, educated on log roll technique and use of bedrails Sit to Supine: n/a- pt left sitting in recliner at end of session Transfers: Sit to Stand: CGA-min A x 2 with FWW. Cues to push from bed (although pt ended up using BUEs on FWW) and used rocking movement to gain momentum to assist with transfer. Stand to Sit: CGA x 2 with FWW Bed to Chair: CGA-min A x 2 with FWW Gait: pt took a few steps from bed>chair with CGA-min A x 2 and FWW. Deferred further ambulation2/2 pain and fatigue. Stairs: not assessed Balance: Sitting Static: good Sitting Dynamic: good Standing Static: fair with FWW Standing Dynamic / Gait: Fair with FWW Education: patient has been educated on Bed mobility, Transfers, Assistive device/technique, Safety, Gait , Activity pacing/Energy conservation, Role of therapy, Balance and Discharge planning and verbalizes understanding. Patient status, treatment, and mobility recommendations discussed with nursing. Assessment: Katheryn Carranza was seen today for physical therapy evaluation. Pt demonstrates impairedactivity tolerance and balance, primarily limited by abdominal pain at this time. She may benefit from rehab at discharge, although if pain improves she could progress to discharging home with services. Will continue to assess for safe discharge plan. Discharge Recommendations: Based on the current findings, Anticipated Discharge Disposition (PT): to be determined pending medical status & functional progression when medically ready for hospital discharge. Consult Recommendations: No other consults recommended at this time. Equipment needs: Anticipated Equipment Needs at Discharge (PT): to be determined Goals: To be achieved by 08/18/22: 1. Pt. to demonstrate knowledge of safety limitations and precautions and will appropriately request assistance for functional activities and to mobilize. 2. Pt. to perform bed mobility independently. 3. Pt. to perform all transfers with modified independence using a front wheeled walker. 4. Pt. to ambulate 150 feet with modified independence using a a front wheeled walker. 5. Pt. to ambulate up/down 2 step/stairs using one hand hold with min A. 6. Family or caregiver to demonstrate understanding of therapeutic interventions to support the care of the patient. 7. Pt will tolerate progression towards upright with stable vital signs. Plan: Therapy Frequency (PT): 2-4 times/wk for therapy including balance training, bed mobility training, gait training, patient/family education, stair training and transfer training. Patient/familyunderstand and agree with plan as stated above. PT Evaluation Code Rationale: ?? Diagnosis & Pertinent Co-Morbidities, personal factors, and present illness affecting Plan of Care: (see above); Additional personal factors or co- morbidities that impact plan: ?? Total # of Factors: 0 1-2 3+ x ?? Examination of body system impairments, functional limitations and behaviors, and/or participation restrictions. Addressing 1-2 elements Addressing 3 + elements x Addressing 4 + elements ?? Clinical presentation: See assessment above. Stable/Uncomplicated Evolving/Fluctuating Symptoms Unstable/Unpredictable x ?? Clinical decision making of moderate complexity based on pt's functional performance as outlinedin this evaluation. Time IN / OUT: 5118-9494 Total Minutes, Physical Therapy: 37 Dawn Fung, PT Pager: [phone] Physical Therapy Inpatient Rehabilitation Department * Nevaeh Greenwood - 08/04/2022 10:16 AM EST Occupational Therapy Evaluation Patient profile: Katheryn Carranza is a 61 y.o. female admitted on 08/01/2022 who presented to ED with abdominal pain, 2 weeks of LE radicular symptoms found to have T12 compression fracture and L5-S1 paracentral disc herniation, s/p Neurosurgery evaluation, who is POD#1 s/p diagnostic laparoscopy, converted to exporatory laparotomy and left salpingo-oophorectomy for suspected torsion of 15 cm likelymucinous cystadenofibroma, with rescue TAP block placed postoperatively by Anesthesia. Past Medical History: Diagnosis Date ??? ADD [...] MAMMOPLASTY, EVA performed by DEMETRA SOMMERS at [facility] OR ??? PRO LAP, DIAGNOSTIC ABDOMEN Left 08/02/2022 LAPAROSCOPY, DIAGNOSTIC, ABDOMEN (WRVU 5.14) performed by Antonio Rojas MD at [facility] OR ??? PRO REMOVAL OF OVARY/TUBE(S) Left 08/02/2022 @SALPINGO-OOPHORECTOMY, UNILATERAL OR EVA (WRVU 12.16) performed by Antonio Rojas MD at [facility] OR Social History: Home Setup: Pt lives in a 2 level home with her . 2 REGINO. Bedroom and bathroom with walk-in shower on 2nd level. Bathroom on 1st level with tub shower. Equipment at home: 4WW Baseline ADL/Mobility: Independent for ADLs, IADLs, and functional mobility prior to BLE pain. was assisting with socks, hiking up pants, toileting, and IADLs due to pain. Pt has been stayingon 1st level and sleeping in recliner. Utilizing a step stool for BUE support for mobility. Husbandhome and children live close by to help with ADLs/IADLs as needed. Fall hx: 3 falls within the past 3 months Precautions/Special Considerations: full code, fall risk, risk for skin breakdown, abdominal binder, fournier, up with assistance Subjective: I've been using a step stool to help with my balance Objective: Seen today for OT evaluation. Pt in supine and agreeable to therapy. Cognitive Status/Behavior: ?? Behavior / Mood: alert and cooperative ?? Alert and oriented to: person, place, time and situation ?? Follows commands: multi step and 100% of the time ?? Attention: WFL ?? Safety awareness: WFL Vision & Perception: ?? corrective lenses for reading Communication: WFL Range of motion, strength, coordination: ?? BLE/BUE: WFL ?? Trunk: limited due to abdominal incision Sensation: n/t in BLE Activities of Daily Living: Self-feeding: independent as evidenced by good BUE ROM, strength and coordination Grooming: independent as evidenced by good BUE ROM, strength and coordination Dressing: Educated on and demonstrated adaptive techniques with cook syrup maker and sock aide. Pt doffed socks sitting EOB with supervision and cook syrup maker. Pt donned underwear seated EOB with supervision, cook syrup maker, and min cues for technique. Pt donned socks with supervision and sock aide. Pt hiked up underwear standing with min assist and FWW Bathing: will need min assist based on mobility and standing balance Toileting: will need min assist based on clothing management and standing balance Functional Mobility: Supine to sit: Min-mod assist with log rolling technique, HOB raised Sit to stand: min assist x1 with FWW, min cues for hand placement Ambulation: 2' to chair with CGA x2 and FWW. Deferred walking further due to limited endurance Stand to sit: CGA x2 and min cues for hand placement Sit to supine: N/A Balance: Sitting balance: good Standing balance: fair Vitals: ?? HR: 70s-80s at rest and with activity ?? SpO2: 94% on RA Pain: 7/10 at abdominal incision at rest; 9/10 with activity Skin: intact Endurance: limited due to pain and deconditioning Education: patient have been educated on Role of occupational therapy/rehabilitation, Transfers, Assistive device/technique, Adaptive equipment training, ADL, Positioning, Precautions/Protocol, Functional Mobility, Balance and Recommendations and verbalize and demonstrate understanding. Patient status, treatment, and mobility recommendations discussed with nursing. Pt in chair on exitwith all needs met, call lange within reach, and chair alarm set Assessment: Pt has been seen for occupational therapy evaluation. Katheryn Carranza presents with the following performance skill deficits and client factors: increased pain, decreased activity tolerance, decreased flexibility/ROM, decreased standing balance and precautions/bracing. These performance deficits have led to activity limitations and participation restrictions in the following areas of occupation: dressing, bathing, toileting, transfers/mobility and home management. Pt appeared alert and cooperative throughout session. Pt demonstrated good carryover with cook syrup maker and sock aide for donning underwear and socks. Transferred to chair with 2 person assist, however deferred ambulation dueto limited activity tolerance and pain. Recommend discharge to acute rehab facility to increase independence with ADLs and functional mobility. Pt would benefit from further inpatient OT interventions to address performance deficits and maximize participation and independence with occupations of daily living. Equipment Recommendations: Equipment Needs Upon Discharge (OT): shower chair Anticipated Discharge Disposition (OT): acute rehabilitation facility Other Recommendations: Transfer to recliner chair or toilet as appropriate with CGA - min assist and FWW, ambulate as tolerated Bathroom or commode for toileting needs, if appropriate Encourage participation in ADL's by providing set up A on tray table and physical assist only as needed Frequent orientation verbally and visually Promote normalcy by encouraging participation in common daily tasks and leisure activities by providing set up assist Facilitate a normal sleep-wake cycle Other Recommendations: No other consults recommended at this time Goals: To be achieved by 08/18/2022. Pt will complete LB dressing with mod I and AE as needed Pt will complete toileting routine (transfers, hygiene, clothing management) with supervision Pt will complete bathing alternating between seated/standing with supervision Pt will complete functional transfers and mobility with supervision and LRAD Plan: OT: Therapy Frequency (OT): 2-4 times/wk Planned OT interventions: Role of occupational therapy/rehabilitation, Transfers, Assistive device/technique, Adaptive equipment training, ADL, Precautions/Protocol, Functional Mobility, Home Management, Balance, Recommendations and Discharge planning. Total Minutes, Occupational Therapy: 39 (moderate complexity 1016 - 1055) OT Evaluation Code Rationale: ?? Diagnosis & Pertinent Co-Morbidities affecting Plan of Care: see PMHx ?? Occupational Profile & Client History: Brief Expanded Extensive x ?? Assessment of Occupational Performance: 1-3 performance deficits 3-5 performance deficits 5 + performance deficits x ?? Clinical Decision Making: Low Moderate High x Clinical decision making of moderate complexity using standardized patient assessment instrument and measurable assessment of functional outcome. Nevaeh Greenwood 08/04/2022 Occupational Therapy Rehabilitation Department Associated attestation - Jeannine Amos OT - 08/04/2022 4:52 PM EST Patient status, treatment interventions, and goals discussed with student. I am in agreement with all details and associated flowsheet rows as documented and was present for all aspects of the patient treatment session. Treatment session performed and note written with this ad copy writer. Please do not hesitate to contact this ad copy writer with any questions, thank you. Jeannine Amos, OT Pager #[phone] Inpatient Rehabilitation * Antonio Rojas MD - 08/04/2022 5:53 AM EST Images from the original note were not included. Gynecologic Oncology Postoperative Progress Note ID: Katheryn Carranza is an 61 y.o. 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 Interval Events: -- Started on steroid dose pack (IV hydrocortisone 200 mg > prednisone 50>20>10>5 x 5 doses) due to radicular symptoms -- BIT team consulted, with ongoing discussion of OUD and possible initiation of MAT -- Weaned to room air POD#1-2 overnight, continued wheezing and increased coughing overnight -- Neurology consult opinion is radicular symptoms in femoral distribution were in part due to compression from ovarian mass, given improvement; signed off Subjective: Katheryn reports that she is feeling fine this morning. She is bothered by a worsening cough, which isnot productive. She has increased pain at the incision rated at a 9/10, but is at a 6/10 at rest. She feels the C4 PLANNER is helping her pain, but she finds it wears off quickly. She had a short episode of lightheadeness when she stood up yesterday to get to the chair, but no further lightheadness or dizziness. Denies nausea or vomiting. Passing flatus. No BM. She continues to have some mild bilateral LE numbness, but no radicular pain or back pain at this time. Denies headache, vision changes, chestpain, shortness of breath, leg pain or swelling. Physical Exam: Last Set of Vitals and range of vitals over past 24 hours: Last value Range last 24 hrs Temperature Temp: 36.6 ??C (97.9 ??F) Temp: [36.5 ??C (97.7 ??F)-36.8 ??C (98.2 ??F)] Heart Rate Heart Rate: 76 Heart Rate: -- Blood Pressure BP: 158/89 BP: (128-165)/(68-91) Respiratory Rate Resp: 19 Resp: [18-20] SpO2 SpO2: 91 % SpO2: [90 %-94 %] Intake/Output Summary (Last 24 hours) at 08/04/2022 0553 Last data filed at 08/04/2022 0400 Gross per 24 hour Intake 3660 ml Output 2875 ml Net 785 ml UOP 141 mL/hr over the last 6 recorded hours Body mass index is 35.78 kg/m??. Patient Vitals for the past 168 hrs: Weight 08/01/222015 97.5 kg (215 lb) Gen: Resting comfortably in bed. NAD. Neuro: Alert and oriented. Cardiac: RRR. No murmurs Pulm: CTAB, wheezes present in lower lung bases, coughing intermittently during exam, normal work of breathing Abd: Hypoactive bowel sounds. Abdomen is softly distended, nontender to palpation. Immediately surrounding incision is moderately tender. Incision: Dressing overlying with scant strikethough around umbilicus, otherwise clean/dry/intact. Left in place given abdominal binder is on, but will remove later today. : Fournier draining clear yellow urine. Extremities: No lower extremity edema or calf tenderness, SCDs in place Laboratory (Last 24 Hours): None Studies: MRI Spine IMPRESSION 1. Acute superior endplate fracture of T12 with 20% vertebral body height loss. Minimal posterior bony retropulsion contributes to mild spinal canal stenosis at T11-T12. No cord contact or deformity.No definitive accompanying enhancing mass. 2. No osseous metastatic disease in the thoracic or lumbar spine. Assessment and Plan Katheryn Carranza is an 61 y.o. 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 Abdominal pain has improved after surgery and she has had improvement in numbness in inner thighs/groin. Neurology recommend no further testing, attributes femoral radiculopathy to compression from the ovarian mass. This is plausible given mass was located largely retroperitoneal. Neurosurgery recom mendation for continued multimodal treatment of pain, consider steroid dose pack if radiculopathy returns/persists. No need for bracing of the compression fracture. She has a new diagnosis of opioid use disorder, with evidence of tolerance to opioids and hyperalgesia. Pain currently is well-managedwith multimodal regimen as detailed below. Will wean C4 PLANNER as able, and plan BIT team consult for discussion of OUD management, treatment and plan Narcan prescription on discharge. Please see systems based plan below: Neuro:??Presenting concern was progressive bilateral lower extremity numbness, find to have a left paracentral disc herniation at L5/S1 as well as fracture at T12. Neurosurgery evaluation recommendedcontinued multimodal treatment of pain, consider steroid dose pack if radiculopathy returns/persists. No need for bracing of the compression fracture. Neurology consult opinion is radicular symptoms in femoral distribution were in part due to compression from ovarian mass, given improvement; signedoff. Symptoms appear to be improving, however, will need PT/OT evaluation for ability to ambulate unassisted given falls at home and LE weakness #Bilateral lower extremity numbness, weakness-improving #T12 compression fracture, nondisplaced # L5/S1 paracentral disc herniation ??? Neurosurgery, Neurology consulted, appreciate recommendations ? ? Started on steroid dose pack (IV hydrocortisone 200 mg > prednisone 50>20>10>5 x 5 doses) due to radicular symptoms ??? PT/OT evaluation, consider discharge with walker if indicated given recent history of falls #Analgesia #History of opioid dependence ??? Dilaudid C4 PLANNER-demand only. Plan to transition to PO medications today. ? ? Tylenol, toradol-->ibuprofen for pain - transition to oral pain medications as tolerated as above. ??? Consider initiation of MAT as indicated per BIT team consult ??? Home tizanidine, flexeril, gabapentin continued ??? Home baclofen held ??? Lidocaine patches Psych: Patient reported acute on chronic exacerbation of opioid use disorder prior to surgery with prescription opioids purchased illicitly. BIT team consult for OUD agree with diagnosis of OUD givencravings, use of opioids, and are following with discussion of MAT initiation prior to discharge. Will attempt to limit narcotics and lean on multimodal regimen. Patient in agreement with BIT team and is open to MAT, as well as accepts Narcan on discharge. # History of anxiety and depression ??? Home amitriptyline, Seroquel continued # Opioid use disorder ?? BIT team following, patient is considering possibility of initiation of MAT prior to discharge; appreciate recs ?? Offer Narcan at discharge ?? Cardiovascular:??History of hypertension, elevated blood pressures overnight (BP: (158-165)/(85-89)), on home atenolol. Could uptitrate if persistently hypertensive versus add additional agent, but suspect elevated BP are in setting of pain and coughing. ??? Continue close VS monitoring ??? Repeat CBC PRN if concern for anemia ??? Home atenolol reordered. ?? Pulmonary:??On room air, wheezes present in lung bases, mild but persistent and somewhat worsening nonproductive cough. Suspect atelectasis, possible component of COPD/reactive airway disease in setting of tobacco use. Encouraged incentive spirometer as well as continue DuoNebs. ??? Tobacco use- nicotine replacement PRN ??? DuoNebs PRN ??? Consider repeat CBC, CXR today if persistent coughing despite DuoNebs ? ? Supplemental oxygen PRN to maintain sats >92% ?? GI:?tolerating normal diet, advance as tolerated ??? Pericolace standing, Miralax PRN ??? Zofran, compazine??available PRN nausea. ?? Endo: no ongoing issues at this time ?? :??Fournier catheter in place. Urine output adequate post-operatively.? Continue to monitor intake and output ??? Discontinue fournier catheter when ambulatory ?? FEK: Taking in adequate PO. Adequate urine output. ??? Stop fluids today ??? Lytes within normal on admission ??? Trend PRN ?? Onc:??Presented with suspected torsion of large 15 cm L ovarian cyst, now status post exploratory laparotomy, left salpingo-oophorectomy with findings consistent with benign serous cystadenoma. ??? Follow up in clinic 2 weeks postoperatively??for review of final pathology ?? ID: Afebrile,??mild leukocytosis on admission. No fevers, systemic symptoms to suspect infection. Will consider repeat CBC if persistent coughing to evaluate for possible PNA. ??? Continue close monitoring ??? Received 2g Ancef intraop ?? Prophylaxis:? SCDs while in bed ??? Lovenox for VTE prophylaxis, started on on POD#1 ??? Encourage ambulation ??? Incentive spirometry ?? Dispo:?? Continues to require inpatient admission, discharge on POD#3-5 pending clinical course. ?? Code Status: Full Code Angely Scruggs MD PGY-4 08/04/22 I saw and evaluated the patient with JOANNA Crabtree, and I confirmed the history and physical findings as outlined, and I agree with the note as written. I reviewed with the patient that we will not be prescribing long-term opioids for her use, only enough to get her through the convalescent period expected after her recent surgery, for removal of herovarian cyst. ?? 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 Incision dressing has scant dried drainage otherwise intact. Sat inchair today. Continues with Dilaudid C4 PLANNER - pain moderately managed. Abdominal binder used with ambulation. Started on steroids. Tessalon ordered TID for cough. BPs continued to be elevated. Pt resting on RA today. Action List Pain management Encourage ambulation Monitor Bps Possibly back to OR for spinal issues while admitted?? Discharge Plan: Home meds in Rx [] Belongings in safe [] Consults: neuro, psychiatry * Antonio Rojas MD - 08/03/2022 7:16 AM EST Images from the original note were not included. Gynecologic Oncology Postoperative Progress Note ID: Katheryn Carranza is an 61 y.o. woman who presented to ED with abdominal pain, 2 weeks of LE radicular symptoms found to have T12 compression fracture and L5- S1 paracentral disc herniation, s/p Neurosurgery evaluation, who is POD#1 s/p diagnostic laparoscopy, converted to exporatory laparotomy andleft salpingo- oophorectomy for suspected torsion of 15 cm likely mucinous cystadenofibroma, with rescue TAP block placed postoperatively by Anesthesia. Interval Events: -- On 2 L NC, wheezes present in lung bases, mild cough -- Neurosurgery evaluation recommended continued multimodal treatment of pain, consider steroid dose pack if radiculopathy returns/persists. No need for bracing of the compression fracture --Patient reported acute on chronic exacerbation of opioid use disorder prior to surgery with prescription drug abuse, purchased ilicitly Subjective: Katheryn reports that she is feeling fine this morning. She has been sleeping on and off since surgery. She is drinking water, wilber denis and eating crackers. Denies nausea or vomiting. She was unsure of what time is was and has been calling her children and on the phone, but they were not answering. She continues to have bilateral LE numbness, but no radicular pain or back pain at this time. She reports she had been using opioids daily over the last two weeks, and more intermittently off and on for quite a while prior to then. She had been using pills. Denies headache, vision changes, chest pain, shortness of breath, leg pain or swelling. Physical Exam: Last Set of Vitals and range of vitals over past 24 hours: Last value Range last 24 hrs Temperature Temp: 36.4 ??C (97.5 ??F) Temp: [36 ??C (96.8 ??F)-37 ??C (98.6 ??F)] Heart Rate Heart Rate: 76 Heart Rate: [71-80] Blood Pressure BP: 158/90 BP: (131-185)/(88-133) Respiratory Rate Resp: 18 Resp: [11-21] SpO2 SpO2: 93 % SpO2: [90 %-96 %] Intake/Output Summary (Last 24 hours) at 08/03/2022 0716 Last data filed at 08/03/2022 0314 Gross per 24 hour Intake 1698.67 ml Output 1805 ml Net -106.33 ml UOP last recorded at 0000 = 94.5 mL/hr over the last 10 recorded hours Body mass index is 35.78 kg/m??. Gen: Resting comfortably in bed. NAD. Answers questions appropriately, but at baseline has somewhatdisinhibited affect. Neuro: Alert and oriented. Cardiac: RRR. No murmurs Pulm: CTAB, wheezes present in lower lung bases, coughing intermittently during exam, normal work of breathing Abd: Hypoactive bowel sounds. Abdomen is softly distended, nontender to palpation. Immediately surrounding incision is moderately tender. Incision: Dressing overlying with scant strikethough around umbilicus : Fournier draining clear yellow urine. Extremities: No lower extremity edema or calf tenderness, SCDs in place Laboratory (Last 24 Hours): Recent Labs 08/01/22 2215 WBC 12.6* HGB 13.7 HCT 39.3 PLATELET 286 Recent Labs 08/01/22 2215 NA 136 K 4.1 CL 101 CO2 23 BUN 13 CREATININE 0.78 Studies: MRI Spine IMPRESSION 1. Acute superior endplate fracture of T12 with 20% vertebral body height loss. Minimal posterior bony retropulsion contributes to mild spinal canal stenosis at T11-T12. No cord contact or deformity.No definitive accompanying enhancing mass. 2. No osseous metastatic disease in the thoracic or lumbar spine. Assessment and Plan Katheryn Carranza is an 61 y.o. 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 Abdominal pain has improved after surgery, however she continues to report LE numbness. Neurosurgery recommendation for continued multimodal treatment of pain, consider steroid dose pack if radiculopathy returns/persists. No need for bracing of the compression fracture. She has a new diagnosis of opioid use disorder, with evidence of tolerance to opioids and hyperalgesia. Pain currently is well-managed with multimodal regimen as detailed below. Will wean C4 PLANNER as able, and plan BIT team consult for discussion of OUD management, treatment and plan Narcan prescription on discharge. Please see systems based plan below: Neuro:??Presenting concern was progressive bilateral lower extremity numbness, find to have a left paracentral disc herniation at L5/S1 as well as fracture at T12. Neurosurgery evaluation recommendedcontinued multimodal treatment of pain, consider steroid dose pack if radiculopathy returns/persists. No need for bracing of the compression fracture. #Bilateral lower extremity numbness ??? Neurosurgery consulted, appreciate recommendations ??? Plan for steroid dose pack if persistent radiculopathy symptoms #Analgesia #History of opioid dependence ??? Dilaudid C4 PLANNER- demand only. Can consider adding continuous rate if indicated. ? ? Tylenol, toradol-->ibuprofen for pain - transition to oral pain medications as tolerated. Consider initiation of Suboxone as indicated per BIT team consult ??? Home tizanidine, flexeril, gabapentin continued ??? Home baclofen held ??? Lidocaine patches Psych: Patient reported acute on chronic exacerbation of opioid use disorder prior to surgery with prescription drug abuse purchased illicitly. Plan BIT team consult for OUD today. # History of anxiety and depression ??? Home amitriptyline, Seroquel continued # Opioid use disorder ?? Offer Narcan at discharge ?? Cardiovascular:??History of hypertension, elevated blood pressures overnight (BP: (131-185)/(88-133) ), plan to restart home antihypertensive this AM. ??? Continue close VS monitoring ??? Repeat CBC PRN if concern for anemia ??? Home atenolol reordered. ?? Pulmonary:??On 2 L NC, wheezes present in lung bases, mild cough. Suspect atelectasis, possible component of reactive airway disease in setting of tobacco use. Encouraged incentive spirometer as wellas ordered DuoNebs. ??? Tobacco use- nicotine replacement PRN ??? DuoNebs PRN ? ? Supplemental oxygen PRN to maintain sats >92% ?? GI:?tolerating normal diet, advance as tolerated ??? Pericolace standing, Miralax PRN ??? Zofran, compazine??available PRN nausea. ?? Endo: no ongoing issues at this time ?? :??Fournier catheter in place. Urine output adequate post-operatively.? Continue to monitor intake and output ??? Discontinue fournier catheter when ambulatory ?? FEK: LR running @100cc/hr. Will encourage PO intake and discontinue IV fluids when taking in adequate PO. ??? Lytes within normal on admission ??? Trend PRN ?? Onc:??Presented with suspected torsion of large 15 cm L ovarian cyst, now status post exploratory laparotomy, left salpingo-oophorectomy with findings consistent with benign serous cystadenoma. ??? Follow up in clinic 2 weeks postoperatively??for review of final pathology ?? ID: Afebrile,??mild leukocytosis on admission. No fevers, systemic symptoms to suspect infection. ??? Continue close monitoring ??? Received 2g Ancef intraop ?? Prophylaxis:? SCDs while in bed ??? Lovenox for VTE prophylaxis on POD#1 ??? Encourage ambulation ??? Incentive spirometry ?? Dispo:?? continues to require inpatient admission, suspect discharge on POD#2-5 pending recovery. ?? Code Status: Full Code Angely Scruggs MD PGY-4 08/03/22 I saw and evaluated the patient with Dr. Scruggs, and I confirmed the history and physical findings as outlined, participated in the critical aspects of the patient's care, formulated the treatment plan, and I agree with the note as written. Katheryn is meeting the usual postoperative milestones. I reviewed the pathology findings, explained the typical postoperative course for this. I reviewed that I favored a benign ovarian cystic serous cystadenoma. However, final pathology is still pending She will need ongoing management from neurology/PT/OT, as well as management/discussion of her opioid use disorder, and these consultations are ongoing/pending. This is reviewed with her today. She voiced understanding of the goals of care. ?? * Tosin Mcknight RN - 08/03/2022 6:39 AM EST OUTCOME EVALUATION NOTE: OUTCOME SUMMARY: Katheryn Carranza is POD1 LSO and diagnostic lap for left ovarian cystadenoma. A&Ox4 and VSS. BP elevated to 150s/90s. Team aware and continuing to monitor. Currently on 2L NC satting well. Endorses pain 9/10, but frequently falling asleep between care, even while nurse leaves room for short periods of time to gather supplies. Dilaudid C4 PLANNER in use and continued on scheduled toradol and tylenol. Does not endorse nausea. Noted BLE numbness. Will continue to monitor. Fournier in place and draining well. LR infusing at 100 mL/hr. Lap sites and midline incision are C/D/I. Bowel sounds hypoactive. Not yet passing flatus. Patient sleeping between nursing care. PLAN MOVING FORWARD: Monitor labs and vitals Encourage ambulation Pain management Wean O2 INDIVIDUALIZED FALL PREVENTION INTERVENTIONS: Patient-specific fall risk factors per assessment: [current deficits]: Generalized weakness, IV pole, hospitalization, hx of falls, BLE numbness Assistance [level of assistance required for transfers and ambulation]: Ax2? Supervision [direct monitoring required during toileting and ADLs]: Hands on, eyes on Surveillance [continuous indirect monitoring]: Masimo, purposeful rounding, bed alarm on, call light in reach, room near unit station Patient-specific fall prevention interventions for sensory deficits provided, if applicable: [X] N/A CPG GOAL OUTCOME EVALUATION: * Gloria Hdz MD - 08/03/2022 3:26 AM EST NEUROSURGERY PROGRESS NOTE: Katheryn underwent removal of her adnexal mass yesterday. She currently has abdominal pain and is using a C4 PLANNER but denies any leg pain now, though it is difficult to say because she's hasn't be up yet. MRI of the T spine shows a mild T12 compression fx and small L sided L5-S1 paracentral disc herniation. Both of this things can result in back pain and the disc herniation may cause radiculopathy (S1on the left in this case), but neither are operative at this point. Recommend continued multimodal treatment of pain. Could consider steroid dose pack if radiculopathyreturns/persists. No need for bracing of the compression fracture. F/u w us PRN. Gloria Hdz MD 08/03/2022 3:29 AM [facility] Neurosurgery Inpatient Pager: [phone] Personal Pager: [phone] * Antonio Rojas MD - 08/03/2022 1:22 AM EST [facility] - Progress Note Katheryn Carranza is an 61 y.o. woman with PMH of HTN, chronic neck pain, congenitally absent R kidney, possible MARIBEL exposure in utero, depression/anxiety, who presented with severe abdominal pain in setting of 15 cm L ovarian cyst, as well as 2 weeks of LE radicular symptoms. Now POD#1 s/p laparotomyand L salping-oophorectomy. Intraoperative Findings: Findings: 1. Exam under anesthesia: Normal external [...] for malignancy. 4. Frozen section: Not performed. Subjective: Katheryn reports that she is feeling okay. She has been sleeping on and off since surgery. She has an appetite and is currently eating fabien crackers. She has also been drinking fluids. Denies nausea or vomiting. Reports that she is in pain. She has been pressing her button. States it is not really helping. Per RN however, she has been dosing off to sleep frequently. States that her bilateral feet are still numb. Denies headache, vision changes, chest pain, shortness of breath, leg pain or swelling. Physical Exam: Last Set of Vitals and range of vitals over past 24 hours: Last value Range last 24 hrs Temperature Temp: 36.3 ??C (97.3 ??F) Temp: [36 ??C (96.8 ??F)-37 ??C (98.6 ??F)] Heart Rate Heart Rate: 76 Heart Rate: [71-80] Blood Pressure BP: (!) 158/91 BP: (131-185)/(88-133) Respiratory Rate Resp: 20 Resp: [11-21] SpO2 SpO2: 93 % SpO2: [90 %-96 %] Intake/Output Summary (Last 24 hours) at 08/03/2022 0102 Last data filed at 08/03/2022 0006 Gross per 24 hour Intake 1091.67 ml Output 1405 ml Net -313.33 ml I/O this shift: In: 1091.7 [I.V.:1091.7] Out: 1405 [Urine:1395; Blood:10] UOP last recorded at 0000 = 150cc = 150cc in last recorded hour Body mass index is 35.78 kg/m??. Gen: Resting comfortably in bed. NAD. Answers questions appropriately, but at baseline has somewhatdisinhibited affect. Neuro: Alert and oriented. Cardiac: RRR. No murmurs Pulm: CTAB. Wheezing in bilateral lower lung bases. Abd: hypoactive bowel sounds. Abdomen is tense, consistent with pre-operative exam, moderately distended. No tympany. Mildly tender to palpation, but distractable. Immediately surrounding incision ismoderately tender. Incision: dressing overlying with scant strikethough. : Fournier draining clear yellow urine. Extremities: No lower extremity edema or calf tenderness, SCDs in place but machine is not yet in room. Laboratory (Last 24 Hours): Recent Labs 08/01/222214 WBC 12.6* HGB 13.7 HCT 39.3 PLATELET 286 Recent Labs 08/01/222214 NA 136 K 4.1 CL 101 CO2 23 BUN 13 CREATININE 0.78 Studies: MRI Spine IMPRESSION 1. Acute superior endplate fracture of T12 with 20% vertebral body height loss. Minimal posterior bony retropulsion contributes to mild spinal canal stenosis at T11-T12. No cord contact or deformity.No definitive accompanying enhancing mass. 2. No osseous metastatic disease in the thoracic or lumbar spine. Assessment and Plan Katheryn Carranza is an 61 y.o. woman with PMH of HTN, chronic neck pain, congenitally absent R kidney, possible MARIBEL exposure in utero, depression/anxiety, who presented with severe abdominal pain in setting of 15 cm L ovarian cyst, as well as 2 weeks of LE radicular symptoms. Now POD#1 s/p laparotomyand L salping-oophorectomy with intra-op findings consistent with benign neoplasm. Patient recovering well immediately post-operatively. Though endorsing minimal effect from C4 PLANNER analgesia, exam findings are overall reassuring against pain that is [id number] to what is expected post-operatively and she is able to sleep comfortably. We discussed continued trial of demand-only C4 PLANNER, but can consider a continuous rate if needed given history of opioid dependence. Please see systems based plan below: Neuro:??Presenting concern was progressive bilateral lower extremity numbness, find to have a left paracentral disc herniation at L5/S1 as well as fracture at T12. #Bilateral lower extremity numbness ??? Neurosurgery consulted, appreciate continued recommendations #Analgesia #History of opioid dependence ??? Dilaudid C4 PLANNER- demand only. Can consider adding continuous rate if indicated. ? ? Tylenol, toradol-->ibuprofen for pain - transition to oral pain medications as tolerated ??? Home tizanidine, flexeril, gabapentin continued ??? Home baclofen held ??? Lidocaine patches Psych: # History of anxiety and depression ??? Home amitriptyline, Seroquel continued # Opioid use disorder ?? Offer Narcan at discharge ?? Cardiovascular:??History of hypertension. Severe range blood pressures improved with improved pain control. ??? Continue close VS monitoring ??? Repeat CBC PRN if concern for anemia ??? Home atenolol held ?? Pulmonary:??Adequate spO2 on room air, no concerns ??? Tobacco use- nicotine replacement PRN ? ? Supplemental oxygen PRN to maintain sats >92% ?? GI:?tolerating normal diet, advance as tolerated ??? Pericolace standing, Miralax PRN ??? Zofran, compazine??available PRN nausea. ?? Endo: no ongoing issues at this time ?? :??fournier catheter in place. Urine output adequate post-operatively.? Continue to monitor intake and output ??? Discontinue fournier catheter when ambulatory ?? FEK: LR running @100cc/hr? Lytes within normal on admission ??? Trend PRN ?? Onc:??now status post exploratory laparotomy, unilateral salpingo-oophorectomy with findings consistent with benign serous cystadenoma. ??? Follow up in clinic 2 weeks postoperatively??for review of final pathology ?? ID: Afebrile,??mild leukocytosis on admission. No fevers, systemic symptoms to suspect infection. ??? Continue close monitoring ??? Received 2g Ancef intraop ?? Prophylaxis:? SCDs while in bed ??? Lovenox for VTE prophylaxis on POD#1 ??? Encourage ambulation ??? Incentive spirometry ?? Dispo:?? continues to require inpatient admission, suspect discharge on POD#2-5 pending recovery. ?? Code Status: Full Code Bubba Schroeder MD PGY-3 08/03/22 ?? * Grace Manzanares RN - 08/02/2022 9:29 PM EST 2100: Katheryn Carranza arrives from OR 8 on bed to PACU 16. Placed patient on monitor with parametersadjusted to be appropriate for patient with alarms on and active. 2300: Patient meets PACU discharge criteria. Verbal report called to 1D nurseTosin. Plans for transport per protocol with patient returning to previous room, 119A. 2315: Patient wondering about if her , Prieto, is still here. Prieto is not present in our waiting room. * Antonio Rojas MD - 08/02/2022 7:11 AM EST Gynecologic Oncology Progress Note ID: Katheryn Carranza is an 61 y.o. woman with PMH of HTN, chronic neck pain, congenitally absent R kidney, possible MARIBEL exposure in utero, depression/anxiety, who is admitted for new-onset abdominal pain in setting of 15 cm L ovarian cyst, as well as 2 weeks of LE radicular symptoms in setting of DJDand spinal stenosis concerning for possible worsening cord compression. Interval Events: -- Pain remains 7/10, improved with Dilaudid -- CT lumbar spine at OSH with no acute fracture, multilevel DJD, neuro foraminal and canal stenosis, facet arthropathy -- NPO for add-on laparoscopic BSO, possible staging for 15 cm adnexal mass Subjective: Katheryn Carranza reports that she is doing ok. Continues to have abdominal wall pain my skin is burning, inner thigh numbness, and groin numbness. She reports a chronic history of intermittent/rare stress urinary incontinence which she states has been worse in the last week with more urinary urgency and incontinence when going to the restroom. She is NPO. Denies BM or passage of flatus. Denies chest pain, shortness of breath, or calf tenderness. ROS: Review of systems performed and negative except as detailed above. Physical Exam: Last value Range last 24 hrs Temperature Temp: 35.8 ??C (96.5 ??F) Temp: [35.8 ??C (96.5 ??F)] Heart Rate Heart Rate: 76 Heart Rate: [76] Blood Pressure BP: 158/88 BP: (155-194)/(82-93) Respiratory Rate Resp: 16 Resp: [16] SpO2 SpO2: 90 % SpO2: [90 %-98 %] Art BP BP (Arterial Line): -- I/O last 3 completed shifts: In: - Out: 600 [Urine:600] No intake/output data recorded. Physical Exam Gen: Appears well, no acute distress Heart: Regular rate and rhythm, no murmurs, rubs, or gallops Lungs: Clear to auscultation bilaterally, no wheezes, rales, or rhonchi Abd: active bowel sounds, moderately distended, moderatey tender to palpation on right side of abdomen. Burning sensation described on skin. : Deferred Ext: warm, well-perfused, no edema bilaterally. Decreased sensation to light touch on inner thighs.Intact strength bilateral to knee flexion/extension, hip flexion/extension. Laboratory (Last 24 Hours): Latest Reference Range & Units 08/01/22 22:15 CA 125 <=38.1 unit/mL 40.8 (H) CA 19-9 <=35.0 u/ml 7.1 CEA <=3.8 ng/mL 2.2 Assessment and Plan: Katheryn Carranza is an 61 y.o. woman with PMH of HTN, chronic neck pain, congenitally absent R kidney, possible MARIBEL exposure in utero, depression/anxiety, who is admitted for new-onset abdominal pain in setting of 15 cm L ovarian cyst, as well as 2 weeks of LE radicular symptoms in setting of DJD and spinal stenosis concerning for possible worsening cord compression. Plan made for add-on D case given concern for intermittent torsion, pending Neurologic evaluation with spinal MRI and Neurology consult, given progressive neurologic symptoms including LE weakness and numbness over last week. Reviewed surgical consent with the patient for laparoscopic bilateral salpingo-oophor ectomy, possible open procedure, possible staging procedure. She was made aware of the risks of theprocedure including the following: bleeding, infection, and damage to surrounding structures. She is full code and willing to accept a blood transfusion if needed. Her questions were answered. Surgical consent was signed. Please see systems-based assessment below. ?? Neuro: Alert and oriented. Presenting with new bilateral lower extremity numbness, concerning for spinal compression. Also with acute abdominal and back pain likely in the setting of adnexal torsion.Given complaints of burning abdominal wall pain, possible component of thoracic radiculopathy contributing to abdominal pain. ??? MRI spine per protocol ??? Neurology consulted ??? Dilaudid C4 PLANNER, Tylenol, toradol ??? Home tizanidine, flexeril continued ??? Home gabapentin, baclofen held for likely same day anesthesia procedure ??? Home amitriptyline, Seroquel continued ??? Nicoderm replacement PRN ?? Cardiovascular: History of hypertension. Severe range blood pressures improved with improved pain control. ??? Type and screen on admission ??? Continue close VS monitoring ?? Pulmonary: Adequate spO2 on room air, no concerns ??? Tobacco use- nicotine replacement PRN ? ? Supplemental oxygen PRN to maintain sats >92% ?? GI: NPO for add-on case today. ??? Pericolace standing, Miralax PRN ??? Zofran, compazine available PRN nausea. ?? Endo: no ongoing issues at this time ?? : voiding spontaneously ??? Continue to monitor intake and output ?? FEK: LR running @100cc/hr while NPO ??? Lytes within normal on admission ??? Trend PRN ?? Onc: complex left adnexal mass with elevated CA-125. Likely intermittently torsion given clinical picture. ??? Add-on D case for exploratory laparoscopy, unilateral salpingo-ophorectomy, possible laparotomy, possible staging biopsies as indicated. ??? Follow up in clinic 2 weeks postoperatively for review of final pathology ?? ID: Afebrile, mild leukocytosis on admission. No fevers, systemic symptoms to suspect infection. ??? Continue close monitoring ?? Prophylaxis: ??? SCDs while in bed ??? Plan Heparin pre-operatively ??? Encourage ambulation ??? Incentive spirometry ?? Dispo: pending operative course, possibly same day if laparoscopic versus POD#3- 5 if laparotomy necessary ?? Code Status: Full Code ?? Patient discussed with Dr. Rojas, attending [facility] Oncologist. ?? Angely Scruggs MD PGY-4 08/02/22 I saw and evaluated the patient with Dr. Scruggs, and I confirmed the history and physical findings as outlined, participated in the critical aspects of the patient's care, formulated the treatment plan, and I agree with the note as written. I met the patient today, reviewed her diagnosis, and showed the images and studies to the patient and her . I reviewed the goals of the surgery which were twofold: 1. Relieve/prevent any pain related to the ovarian cyst itself. She is counseled that most of her pain is probably not related to the cyst at all, and that other evaluations and interventions are possible, including those for her spinal disease. 2. Obtain a histopathologic diagnosis to exclude malignancy. During my interview, the patient appeared more comfortable than her voiced discomfort level. I inquired about her use of opioids prior to arrival to the hospital. She says she has previously been using Percocet and oxycodone, which she obtained as recreational use, not throughout valid prescriber. Thus, she has an opioid use disorder and likely has tolerance to opioids themselves. This will be addressed in her postoperative course. She voiced understanding of the surgery, wished to proceed, and provided written consent. documented in this encounter H&P Notes * Sarah Reed MD - 08/05/2022 2:05 PM EST Gastroenterology and Hepatology Pre-Procedure History and Physical Exam Procedure: EGD: Indication: concern for gastric outlet obstruction Patient Active Problem List Diagnosis Code ??? [...] of lumbar intervertebral disc with radiculopathy M51.16 EXAM: HEENT: Airway examined, oropharynx clear Mallampati Score: III (soft palate, base of uvula visible) LUNGS: Clear to auscultation HEART: Regular rate and rhythm, normal S1, S2 ABDOMEN: Normal bowel sounds, soft, non tender, non distended A/P: Proceed with the planned endoscopic procedure. ASA 3 - Patient with moderate systemic disease with functional limitations Sedation Plan: anesthesia Risks and benefits of the procedure explained to the patient. Consent form signed and included in the patient's chart. Sarah Reed MD PGY-4, Gastroenterology * Antonio Rojas MD - 08/02/2022 12:01 AM EST Images from the original note were not included. Gynecologic Oncology H & P Problem List: There are no hospital problems to display for this patient. Active Non-Hospital Problems Diagnosis ??? Primary osteoarthritis of right knee ??? Carpal tunnel syndrome, bilateral ??? Trigger thumb of left hand ??? Knee pain, bilateral ??? Osteoarthritis of patellofemoral joint ??? Cervical spondylosis without myelopathy ??? Cervical disc displacement ??? Cervical radiculitis ??? Occipital neuralgia ??? Neck pain on left side ??? Breast hypertrophy Reason for Visit: Katheryn Carranza is a 61 y.o. with past medical history notable for hypertension, s/p total vaginal hysterectomy in the setting of AUB who presents with worsening leg weakness and back pain in the setting of a large adnexal mass. History of Present Illness: Katheryn reports that about three weeks ago she developed worsening numbness in her legs bilaterally. The pain shoots down the back of her legs and into her groin. She was first evaluated by her PCP whosuspected pain was secondary to sciatic nerve entrapment. She was prescribed a course of Prednisonewith no relief in her symptoms. She then experienced two falls at home due to weakness in her legs.S he was then recommended by her PCP to seek evaluation in the ED. On 07/29/21, she presented to the ED at [facility]. She had a CTAP demonstrating a 15cm complex left adnexal mass. She also had a CT spine performed without acute findings. Patient was dispositioned to outpatient follow-up with [facility] at [facility] [place]. Tonight, she reports worsening pain in her back that wraps around the abdomen. The pain is so severe that she cannot find a comfortable position. This prompted her to seek treatment in the ED. She reports that the pain is constant, but that it occasionally comes in waves. The pain has improved minimally with Dilaudid in the ED. Having difficulty laying flat due to back pain. Patient endorses low appetite and early satiety in the last two weeks. She has only been able to tolerate liquids. She also endorses constipation, necessitating that she use stool softeners. Last bowel movement was yesterday. No blood in stools. Endorses urinary frequency and has baseline urinary in continence. No recent change in urinary incontinence. Not incontinent of stool. Denies nausea or vomiting. No weight loss. In the ED, labs are notable for a mild leukocytosis to 12.6. Tumor markers were notable for a mildly elevated CA-125 of 40.8. Review of Systems: Denies headache, vision changes, chest pain, shortness of breath, nausea or vomiting, leg pain or swelling. No fevers, chills, myalgias. Past Medical: 1. ADD 2. Depression/anxiety 3. Chronic migraines 5. Hypertension 6. Chronic neck pain - s/p nerve block 7. Tobacco use 8. Congenital absence of right kidney 9. 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 Total vaginal hysterectomy, right salpingo-ophorectomy (for cyst) 2. section via vertical midline 3. Breast reduction 4. Dental surgery Past Obstetric History: x1, section x1 Past Gynecologic History: Menarche: age 16 Hysterectomy in her 40s, for heavy menses. Thinks this was performed vaginally. Told she had a pear shaped uterus Hot flashes for the past 10 years History of pap smears regularly before hysterectomy No history of abnormal pap smears No history of sexually transmitted infections OCP use: age 17-through 20s, again until hysterectomy Allergies: Allergies Allergen Reactions ??? Allergenic Extracts Pollen ??? Tramadol Low potassium ??? Zoloft [Sertraline] Nausea And Vomiting Family History: Denies family history of breast or ovarian cancer. No Known history of cancers in her family. Social History and Habits: lives in [place], [place]. 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 Tobacco use: smoke 1 pack/day, 50 years Alcohol use: none Drug Use: uses marijuana Alternative therapies: none Physical Exam: Last Set of Vitals: Last value Range last 24 hrs Temperature Temp: 35.8 ??C (96.5 ??F) Temp: [35.8 ??C (96.5 ??F)] Heart Rate Heart Rate: 76 Heart Rate: [76] Blood Pressure BP: 162/82 BP: (155-194)/(82-93) Respiratory Rate Resp: 16 Resp: [16] SpO2 SpO2: 94 % SpO2: [93 %-98 %] Gen: uncomfortable appearing, difficulty sitting still or finding a comfortable position. Answers questions appropriately, although frequently interrupted by her daughter. CV: regular rate and rhythm, no murmurs Pulm: regular rate and rhythm, no wheezes Abd: distended, firm, mildly tympanic. No nodularity. Difficult to appreciate mass due to overall distention of abdomen. Moderately tender to palpation diffusely. Left lower quadrant and flank is severely tender to palpation. + guarding Vertical midline scar well healed. No hernia. Neuro: 5/5 strength of bilateral lower extremities and upper extremities. Laboratory (Last 24 Hours): CBC Lab Results Component Value Date WBC 12.6 (H) 08/01/2022 Hemoglobin 13.7 08/01/2022 Hematocrit 39.3 08/01/2022 Platelets 286 08/01/2022 Lab Results Component Value Date NA 136 08/01/2022 K 4.1 08/01/2022 CL 101 08/01/2022 CO2 23 08/01/2022 BUN 13 08/01/2022 CREATININE 0.78 08/01/2022 GLUCOSE 93 08/01/2022 CALCIUM 9.2 08/01/2022 ESTGFR 86 08/01/2022 Lab Results Component Value Date ALT 23 08/01/2022 AST 13 08/01/2022 ALKPHOS 84 08/01/2022 BILITOT 0.2 08/01/2022 BILIDIR 0.1 08/01/2022 ALBUMIN 4.4 08/01/2022 PROT 7.2 08/01/2022 Component Value Date/Time SPGRAVITYUA 1.004 (L) 08/01/20220 PHUADIP 6.5 08/01/2022 2210 PROTEINUADIP Negative 08/01/2022 2210 GLUCOSEU Negative 08/01/2022 2210 KETONESUA Negative 08/01/2022 2210 UROBILIUADIP Normal 08/01/2022 2210 BLOODUADIP Negative 08/01/2022 2210 NITRATEUA Negative 08/01/2022 2210 LEUKOESTERUA Negative 08/01/2022 2210 BILIRUBINUA Negative 08/01/2022 2210 Glucose Lab Results Component Value Date Glucose Lvl 93 08/01/2022 CA125: 40.8 CEA: 2.2 CA19-9: 7.1 Pertinent Radiographic/Diagnostic Results: I have independently visualized the following studies: CTAP CT Spine: Assessment/Plan: Katheryn Carranza is a 61 y.o. with acute, severe lower back and abdominal pain in the setting of complex left adnexal mass. Clinical picture including waxing and waning pain, mild leukocytosis is suspicious for torsion. Differential for mass includes both benign and malignant neoplastic processes. There is no evidencefor metastatic disease on review of prior CT scan. CA-125 tumor marker is mildly elevated. In either case, given complex nature and acute torsion picture, expedited surgical management Is warranted. Will plan for exploratory laparoscopy, unilateral salpingo-ophorectomy, possible laparotomy, possible staging biopsies as indicated per intraoperative frozen section diagnosis. Will admit for pain control in the interim. Patient also presents with acute lower extremity numbness bilaterally. Symptoms are not explained by adnexal mass. Suspect there is a concurrent neurologic issue ongoing. No red glad symptoms to suggest acute cauda equina syndrome. Differential includes radiculopathy, spinal stenosis, or less like compression in the setting of malignant metastasis from an ovarian carcinoma. Will complete workup with MRI spine and involve neurology consultation for further management. Please see systems based plan below: Neuro: Alert and oriented. Presenting with new bilateral lower extremity numbness, concerning for spinal compression. Also with acute abdominal and back pain likely in the setting of adnexal torsion. ?? MRI spine per protocol- plan neurology consult thereafter ??? Dilaudid C4 PLANNER, Tylenol, toradol ??? Home tizanidine, flexeril continued ??? Home gabapentin, baclofen held for likely same day anesthesia procedure ??? Home amitriptyline, Seroquel continued ??? Nicoderm replacement PRN Cardiovascular: History of hypertension. Severe range blood pressures improved with improved pain control. ?? Type and screen on admission ?? Continue close VS monitoring Pulmonary: Adequate spO2 on room air, no concerns ??? Tobacco use- nicotine replacement PRN ? ? Supplemental oxygen PRN to maintain sats >92% GI: NPO for add-on case today. ??? Pericolace standing, Miralax PRN ??? Zofran, compazine available PRN nausea. Endo: no ongoing issues at this time : voiding spontaneously ??? Continue to monitor intake and output FEK: LR running @100cc/hr while NPO ??? Lytes within normal on admission ??? Trend PRN Onc: complex left adnexal mass with elevated CA-125. Likely intermittently torsion given clinical picture. ?? exploratory laparoscopy, unilateral salpingo-ophorectomy, possible laparotomy, possible staging biopsies as indicated ??? Follow up in clinic 2 weeks postoperatively for review of final pathology ID: Afebrile, mild leukocytosis on admission. No fevers, systemic symptoms to suspect infection. ?? Continue close monitoring Prophylaxis: ??? SCDs while in bed ??? Plan Heparin pre-operatively ??? Encourage ambulation ??? Incentive spirometry Dispo: pending operative course, possibly same day if laparoscopic versus POD#3- 5 if laparotomy necessary Code Status: Full Code Patient seen and discussed with Dr. Rojas, attending [facility] Oncologist. Bubba Schroeder MD PGY-3 08/02/2022 I discussed the patient with Dr. Schroeder, and I confirmed the history and medical data above, as outlined, participated in the critical aspects of the patient's care, formulated the treatment plan, and I agree with the note as written. This patient has a large ovarian cyst which may have torsed. She needs oophorectomy for both diagnostic (r/o malignancy) and therapeutic indications (pain relief). However, her neurologic symptoms are probably unrelated to this lesion. Independent image and consultation for that problem is recommended. Patient will be added on for surgery later today - L//S USO, possible laparotomy/staging. documented in this encounter ED Notes * Gisselle Francisco RN - 08/02/2022 4:19 PM EST Pt back from MD DEMARCUS at bedside * Gisselle Francisco RN - 08/02/2022 4:04 PM EST This RN went to MRI to check on pt. Pt is still currently in MRI. Tech reports there being another 13 min left of the scan. OR is aware, was called by this RN's charge nurse. * Gisselle Francisco RN - 08/02/2022 2:39 PM EST MRI messaged this RN, pt requesting pain medication. Pt states that her pain is a 10/10. This RN went down to administer the pain medication after wasting with jazlyn Cramer And observed thispt in tears due to the pain. Team paged about farhan control while we are waiting for the MRI to be started and finished. (Pt has been waiting in MRI waiting area due to an add on order that made her unable to be scanned in the time that she was initially placed for.) * Gisselle Francisco RN - 08/02/2022 9:30 AM EST Pt sleeping in bed, call lange within reach * Leopoldo Herndon MD - 08/02/2022 7:23 AM EST ED Resident Follow-up Note: Review of ED course: ED Course as of 08/02/22722 Mon Aug 02, 2022 0220 15 cm left ovarian mass presenting with low back pain and radiculopathy. Mass was found at OSHrecently. Her pain has been severe. [facility] has not formally evaluated yet. Gynecology has evaluated and will be admitting the patient for expedited workup and pain control. Leopoldo Herndon MD Resident 08/02/22723 Associated attestation - Oumou Villar MD - 08/02/2022 8:58 AM EST ED ATTENDING ATTESTATION The patient was seen in conjunction with the resident physician. I have independently performed thekey portions of the history and physical exam. I have personally reviewed nursing notes, vital signs, and diagnostic studies including labs, imaging studies and EKGs. I have discussed the details of the case with the resident and agree with the assessment and plan as described in the resident's note, unless stated otherwise in my separate note. Did this case involve critical care? No * Thom Harrell NRP - 08/02/2022 7:09 AM EST Report given to next shift. * Thom Harrell NRP - 08/02/2022 4:43 AM EST Patient resting in bed, NAD, VSS. Appears to be sleeping at this time. * Nai Wright MD - 08/02/2022 1:29 AM EST ED Resident Note HPI: Katheryn Carranza is a 61 y.o. female with a history of congenital solitary kidney (right) and prior hysterectomy and right oophorectomy who presents to the Emergency Department for evaluation of back pain. The patient reports she has had left lower back pain radiating to her left leg for the past 2 weeks. She was evaluated by her primary doctor and has been treated on an outpatient basis for sciatica. The patient reports her pain worsened acutely 4 days ago with pain wrapping around from her leftflank into her left abdomen. Positive for lower extremity paresthesias and falls secondary to the tingling in her feet; no focal weakness, no saddle anesthesia, no new urinary or bowel incontinence. The patient also complained of some new and progressive abdominal bloating and distension compared to baseline. No fevers, nausea, vomiting. Increased urinary frequency, possible slight decrease in frequency of bowel movements. The patient presented at that time to [facility] where she had CT of the chest, abdomen, and pelvis as well as the thoracic and lumbar spine given that she was having both abdominal and back pain. There was no evidence of aneurysm, vertebral fracture, or spinal stenosis. However, imaging was remarkable for a 15 cm cystic mass on the left ovary. The patient was discharged home with a short course of oxycodone for her intractable pain. She has been taking the oxycodone as prescribed without significant improvement to her pain. There are no other complaints at this time. ROS as per HPI Vitals: ED Triage Vitals [08/01/222015] BP: (!) 194/93 Heart Rate: 76 Resp: 16 Temp: 35.8 ??C (96.5 ??F) Temp src: Temporal SpO2: 98 % O2 Device: RA O2 Flow Rate (L/min): n/a Physical Exam Vitals and nursing note reviewed. Constitutional: General: She is in acute distress (uncomfortable appearing). Eyes: General: No scleral icterus. Cardiovascular: Rate and Rhythm: Normal rate and regular rhythm. Pulses: Normal pulses. Heart sounds: Normal heart sounds. No murmur heard. No friction rub. No gallop. Pulmonary: Effort: Pulmonary effort is normal. No respiratory distress. Breath sounds: Normal breath sounds. No wheezing, rhonchi or rales. Abdominal: General: There is distension. Tenderness: There is abdominal tenderness (left-sided). There is left CVA tenderness. There is no right CVA tenderness, guarding or rebound. Musculoskeletal: General: No deformity. Right lower leg: No edema. Left lower leg: No edema. Skin: General: Skin is warm and dry. Capillary Refill: Capillary refill takes less than 2 seconds. Coloration: Skin is not jaundiced. Findings: No bruising or rash. Neurological: Mental Status: She is alert and oriented to person, place, and time. Sensory: Sensory deficit (paresthesias and slightly diminished sensation to light touch to the leftthigh) present. Motor: No weakness. ED Course: I have reviewed labs and imaging, images and available reports, and they are significant for: CBC with mild leukocytosis 12.6, no anemia, normal platelet count. BMP, LFTS, and lipase within normal limits. UA without evidence of infection. CEA, CA 19-9 within normal limits, CA-125 elevated at 40.8. ED Course as of 08/02/22 0258 Mon Aug 02, 2022 0046 Spoke with radiology re: emergent MRI given concern for malignancy. Without any other red flagsymptoms, no indication for MRI tonight, recommend ordering for the morning. Patient will need better pain control prior to MRI to ensure she can remain still. Assessment and Plan: 61 y.o. female with left flank and abdominal pain, abdominal bloating and distention, lower extremity paresthesias presenting for pain not controlled on oxycodone as an outpatient. Patient previouslyhad imaging performed at an outside facility concerning for a 15 cm left ovarian mass. Patient has no leukocytosis, no anemia. Normal lipase and LFTs. No evidence of UTI on urinalysis. The patient was provided multiple doses of IV Dilaudid with slight improvement to her pain, though still reports 7-8/10 pain primarily in her low back, but radiating to her abdomen and left lower extremity as well.No fevers, chills, urinary or bowel incontinence, saddle anesthesia, or focal weakness; only positive back pain red flag is concern for malignancy with the patient's new ovarian mass. Concern was discussed with radiology who does not feel there is indication for emergent MRI overnight and recommends obtaining MRI in the morning. As it stands, the patient would not tolerate MRI due to pain at this time; will order MRI of the lumbar spine for tomorrow and focus on pain control tonight. Spoke withGYN regarding the findings of ovarian mass. They briefly saw the patient and introduced themselves,took a history but were called emergently to the OR. They will return to perform a pelvic exam and likely admit the patient to their service for further work-up of her mass and pain control. Patient signed out to oncoming team awaiting [employer] pelvic exam, further pain control, and MRI of the lumbar spine. Nai Wright MD Resident 08/02/22 0309 Associated attestation - Oumou Villar MD - 08/02/2022 8:59 AM EST ED ATTENDING ATTESTATION The patient was seen in conjunction with the resident physician. I have independently performed thekey portions of the history and physical exam. I have personally reviewed nursing notes, vital signs, and diagnostic studies including labs, imaging studies and EKGs. I have discussed the details of the case with the resident and agree with the assessment and plan as described in the resident's note, unless stated otherwise in my separate note. Did this case involve critical care? No * Thom Harrell NRP - 08/01/2022 11:35 PM EST Patient provided with ice chips with MD approval. * Oumou Villar MD - 08/01/2022 9:59 PM EST Brief Attending Note I cared for the patient with the resident physician. Please see Dr. Wright's note, associated with the encounter, for more details. HPI: Katheryn Carranza is a 61 y.o. who presents to the ED with left flank pain x 2 weeks. PCP diagnosed sciatica and prescribed conservative management. Pain has gotten worse. Now includes her abd on the left. Was seen at [facility] ED and CTs of abd and L spine were done. 15cm left ovarian mass identified. Has only a right kidney from . Ultrasound done at [facility] showed a large cyst. Was [facility] for further care as her pain has become worse. Not vomiting. Last BM yesterday. Family member with her provides additional history that her abd is more distended. PMH - right oophorectomy and hysterectomy. Elevated BMi ED Course: Appears uncomfortable. Hypertensive. Neuro exam shows slightly less sensation to left thigh to light touch, otherwise normal. Abd distended and tender to palpation left flank and left lower abd. Pain control - not adequate despite doses of IV dilaudid Labs are within normal limits. Cancer marker labs pending - will result tomorrow. Recent Results (from the past 12 hour(s)) Urinalysis with reflex Culture Specimen: Urine Result Value Glucose UA Negative Protein UA Negative Bilirubin UA Negative Urobilinogen UA Normal pH UA 6.5 Blood UA Negative Ketones UA Negative Nitrite UA Negative Leukocytes UA Negative Appearance UA Clear Spec [place] UA 1.004 (L) Color UA Yellow Culture Reflexed No Basic Metabolic Panel (non-fasting) Result Value Glucose Lvl 93 BUN 13 Creatinine 0.78 Sodium 136 Potassium 4.1 Chloride 101 CO2 23 Anion Gap 12 Calcium 9.2 Estimated GFR 86 Hepatic Function Panel Result Value Total Protein 7.2 Albumin 4.4 AST 13 ALT 23 Alk Phos 84 Total Bilirubin 0.2 Bili, Direct 0.1 Lipase Result Value Lipase 11 ABO/Rh Typing Result Value ABORh Type O Pos Antibody screen Result Value Ab Screen Interp Negative Expires at 2359 on: 08/04/2022 Hemogram Result Value WBC 12.6 (H) RBC 4.25 Hemoglobin 13.7 Hematocrit 39.3 MCV 92.5 MCH 32.2 (H) MCHC 34.9 Platelets 286 RDWSD 43.4 RDWCV 12.6 MPV 9.2 nRBC % Auto 0.0 nRBC Abs Auto 0.000 Differential, Automated Result Value Neutrophils % 65.2 Neutr Abs (ANC) 8.26 (H) Lymphocytes % 26.2 Lymphocytes Abs 3.3 (H) Monocytes % 6.9 Monocyte Abs 0.9 Eosinophils % 0.6 Eosinophils Abs 0.1 Basophils % 0.1 Basophils Abs 0.0 Immature Gran % 1.00 Lucrecia Gran Abs 0.13 (H) Gold Tube HOLD Result Value Gold Hold Sample in lab. ABORH Recheck Status Result Value ABORH Recheck Order Order Placed Type and Screen Validity Result Value T&S only valid at [facility] consult for right ovarian mass with intractable pain. She also has significant back pain and needs evaluation to determine if this represents metastasis from undiagnosed cancer Assessment/plan: Pelvic mass with intractable pain Admission to banking pin adjuster Oumou Villar MD 08/02/22 0858 * Thom Harrell NRP - 08/01/2022 9:24 PM EST in with patient. documented in this encounter Miscellaneous Notes * Consult Note - Faiza Huang MD - 08/06/2022 11:32 AM EST ACUTE CARE SURGERY INPATIENT CONSULT NOTE Patient ID: Patient Name: Katheryn Carranza : 1960 Admit Date: 08/01/2022 9:16 PM Hospital Day: 4 History of Present Illness: Katheryn Carranza is a 61 y.o. female currently admitted to the [facility] service s/p diagnostic lap converted to open left salpingo-oophorectomy for a large (17- 18cm) benign-appearing cystic mass which was densely adherent to the pelvic floor, sidewall, and the overlying sigmoid mesentery peritoneum. It was removed intact. There was no carcinomatosis, ascites, or concern for malignancy. The patient was recovering well until this evening when she developed new onset abdominal pain and distention, significant nausea, and intractable vomiting. A CT was obtained by the primary team which demonstrated severe gastric distention and mild gaseous distention of the first part of the duodenum without other small bowel or colonic dilatation. General Surgery was consulted due to the degree of gastric distention. An NG tube was placed at the bedside with immediate return of over 1L brown gastric contents in addition to a significant volume of emesis. She has not had a bowel movement since surgery. She continues to pass flatus. She is hypertensive but vitals are otherwise normal on RA. Her WBC count is 10.1 but labs are otherwise essentially normal. Her abdomen is obese, distended, tympanic, and moderatelytender. She does not have a history of delayed gastric emptying or gastric outlet obstruction. She is not a diabetic. Interval events: - EGD yesterday unrevealing - A1C 6.2 - NGT dropped off significantly, 50cc recorded yesterday - Bowel movement x2, continues to pass flatus - This morning Katheryn reports improvement in symptoms. No longer feeling nauseous. Having pain around her incision site that is worsened with movement, but no longer having epigastric pain. Physical Exam: Body mass index is 35.78 kg/m??. Temp: [36.6 ??C (97.9 ??F)-37.1 ??C (98.8 ??F)] Heart Rate: [66-72] Resp: [16-20] BP: (146-187)/(88-103) SpO2: [91 %-99 %] Heart Rate from SpO2: [63 bpm-77 bpm] GEN: A&Ox3, in no acute distress, resting comfortably in bed HEENT: anicteric sclerae CV: regular rate and rhythm PULM: no increased work of breathing on RA ABD: obese, soft, moderately tender around incision site, incision c/d/i and well approximated withstaples NEURO: grossly intact Recent Labs 08/04/22232308/01/222214 WBC 10.1* 12.6* HGB 13.6 13.7 HCT 39.1 39.3 PLATELET 285 286 Recent Labs 08/06/22 0518 08/04/22232308/01/222214 NA 139 137 136 K 3.3* 3.6 4.1 CL 99 101 101 CO2 26 24 23 BUN 10 10 13 CREATININE 0.65* 0.70 0.78 Imaging: Assessment: Katheryn Carranza is a 61 y.o. female 1 Day Post-Op s/p s/p diagnostic lap converted to open left salpingo-oophorectomy for a large (17-18cm) benign- appearing cystic mass. She was initially recovering well until POD 2 when she developed new onset of onset abdominal pain and distention, significant nausea, and intractable vomiting with severe gastric distention identified on CT. The etiology of gastric distention remains unclear. EGD yesterday without evidence of abnormalitiesor obstruction. Clinically Katheryn has improved with NGT decompression, and is consistently passing flatus and having bowel movements. Given low NGT recorded for overnight and return of bowel function,would recommend discontinuing NGT and starting clears, with diet advancement as tolerated. Would also recommend minimizing narcotics as able and electrolyte repletion to minimize risk of ileus. Recommendations: - Discontinue NGT - Ok from Surgery perspective to start clears, advance diet as tolerated - Electrolyte repletion - Minimize narcotics Recommendations communicated to primary team. Discussed with Dr. Em. General Surgery will sign off. Please page [phone] with any questions. Faiza Huang MD General Surgery PGY-2 08/06/2022 11:32 AM * Consult Note - [facility]land [facility] 08/05/2022 12:10 PM EST DEAN (Behavioral Intervention Team) [facility] checked in with patient briefly. She talked about yesterday's experience and her concern about her GI system. Patient having visit with family, so DEAN will return at a later time. Tosin Bland MA, [facility] - [facility] (Behavioral Intervention Team) Dept. of Psychiatry - Inpatient Psych. Services Pager: [phone] * Consult Note - Sarah Reed MD - 08/05/2022 7:43 AM EST Images from the original note were not included. DIVISION OF GASTROENTEROLOGY & HEPATOLOGY INITIAL CONSULT REQUESTING PROVIDER: Antonio Rojas MD NAME: Katheryn Carranza : 1960 HPI: Katheryn Carranza 61 y.o./ w/ PMH of Depression/Anxiety, HTN, opiate dependence adm 08/01/2022 9:16 PM to the [facility] service for surgical management of complex adnexal mass. GI is consulted for concern of GOO. Per chart review, the patient presented to OSH on 07/29 where she had a CTAP that showed 15cm complex left adnexal mass. She was sent home with banking pin adjuster onc f/u. She then developed worsening abdominal painand presented to the ED again. Also endorsed poor PO intake and early satiety over 2 weeks, only tolerating liquids. On arrival to ED, she was HDS. Labs with mild leukocytosis, CA 125 40.8. Additional imaging showed T12 compression fracture and L5-S1 paracentral disc herniation, s/p Neurosurgery evaluation. 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 Overnight, she developed epigastric pain, N/V. NGT was placed with 1L guo- colored output. Labs around that time showed WBC 10.1, normal Hgb and PLTs, normal BMP, normal LFTs and lipase. CT AP was obtained - Findings suggesting pyelonephritis of the lone RIGHT kidney. Moderate to severe gastric distention. Mild atelectasis at the included lung bases. Moderate pancolonic stool burden. General surgery was consulted and recommended gastric decompression with NGT, keep NPO, minimize narcotics. She is currently receiving scheduled tylenol 1g q8hr, lovenox ppx, PPI IV BID, IV opiates discontinued. ROS: 10-system ROS negative other than that noted above PAST MEDICAL: Past Medical History: Diagnosis Date ??? ADD (attention deficit disorder) ??? Depression ??? ARCHANA (generalized anxiety disorder) ??? Headache ??? Hypertension ??? Neck pain on left side 07/04/2012 ??? Thoracic compression fracture, sequela 08/03/2022 ??? Tobacco abuse PAST SURGICAL HX: Past Surgical History: Procedure Laterality Date ??? BREAST REDUCTION SURGERY Bilateral 12/2011 ??? HYSTERECTOMY ??? PRO BREAST REDUCTION 12/09/2011 REDUCTION MAMMOPLASTY, EVA performed by DEMETRA SOMMERS at [facility] MAIN OR ??? PRO LAP, DIAGNOSTIC ABDOMEN Left 08/02/2022 LAPAROSCOPY, DIAGNOSTIC, ABDOMEN (WRVU 5.14) performed by Antonio Rojas MD at [facility] MAIN OR ??? PRO REMOVAL OF OVARY/TUBE(S) Left 08/02/2022 @SALPINGO-OOPHORECTOMY, UNILATERAL OR EVA (WRVU 12.16) performed by Antonio Rojas MD at [facility] MAIN OR SOCIAL HX: Social History Socioeconomic History ??? Marital status: Spouse name: Prieto ??? Number of children: 2 ??? Years of education: Not on file ??? Highest education level: Not on file Occupational History ??? Occupation: unemployed Tobacco Use ??? Smoking status: Every Day Packs/day: 0.25 Years: 35.00 Pack years: 8.75 Types: Cigarettes ??? Smokeless tobacco: Never Substance and Sexual Activity ??? Alcohol use: No Comment: denies h/o ETOH abuse ??? Drug use: Yes Types: Marijuana Comment: marijuana use (not medical marijuana), denies h/o drug abuse ??? Sexual activity: Yes Other Topics Concern ??? Not on file Social History Narrative ??? Not on file Social Determinants of Health Financial Resource Strain: Not on file Food Insecurity: Not on file Transportation Needs: Not on file Physical Activity: Not on file Housing Stability: Not on file FAMILY HX: Family History Problem Relation Age of Onset ??? Alcohol Use Disorder Sister ??? Cerebrovascular Accident Sister ??? Migraines Sister ??? Alcohol Use Disorder Brother ??? Migraines Sister ??? Breast Cancer Maternal Aunt ??? Arthritis Neg Hx ??? Asthma Neg Hx ??? Cancer Neg Hx ??? Heart Disease Neg Hx ??? Substance Use Disorder Neg Hx MEDICATIONS Medication list personally reviewed Home Meds: Medications Prior to Admission Medication Sig Dispense Refill Last Dose ??? dihydroergotamine (MIGRANAL) 0.5 mg/pump act. (4 mg/mL) [place], Non-Aerosol One spray per nostril, while holding the opposite nostril closed. Wait 15 minutes then repeat (total of 4 sprays - 2 pernostril). 8 mL 5 ??? naproxen sodium (ANAPROX DS) 550 mg Tablet Take 1 tablet by mouth 2 times daily as needed (Mildto Moderate Headache). Can be taken with or without Vistaril 60 tablet 5 ??? OnabotulinumtoxinA (BOTOX) 200 unit Recon Soln Inject 155 Units as directed Every 12 weeks. Indications: Migraine Prevention ??? amitriptyline (ELAVIL) 100 mg Tablet Take 100 mg by mouth nightly. ??? Miscellaneous Medical Supply [facility] Bilateral wrist splints for CTS 2 each 0 ??? hydrOXYzine (VISTARIL) 25 mg Capsule Take 1 capsule by mouth 2 times daily as needed (for Mild to moderate headaches - can be taken with Naproxen sodium). 60 capsule 12 ??? promethazine (PHENERGAN) [address] 1-2 suppositories rectally every 6 hours as needed (Nausea with headache). 15 suppository 5 ??? gabapentin (NEURONTIN) 300 mg Capsule Take 300 mg by mouth 3 times daily. ??? tiZANidine (ZANAFLEX) 4 mg Tablet Take 4 mg by mouth daily. ??? estradiol (ESTRACE) 1 mg tablet Take 1 mg by mouth daily. ??? baclofen (LIORESAL) 10 mg tablet Take 10 mg by mouth 3 times daily. ??? QUEtiapine (SEROQUEL) 25 mg tablet Take 100 mg by mouth nightly. ??? multivitamin (THERAGRAN) tablet Take 1 tablet by mouth daily. ??? atenolol (TENORMIN) 50 mg tablet Take 50 mg by mouth daily. ??? cyclobenzaprine (FLEXERIL) 10 mg tablet Take 10 mg by mouth 3 times daily as needed. ??? pantoprazole (PROTONIX) 40 mg tablet Take 40 mg by mouth daily. ??? ketoconazole (NIZORAL) 2 % cream Apply topically as needed. Current Meds: Scheduled: ??? acetaminophen 1,000 mg Intravenous Q8H YNES ??? pantoprazole 40 mg Intravenous BID ??? predniSONE 50 mg Oral Daily Followed by ??? [START ON 08/09/2022] predniSONE 20 mg Oral Daily Followed by ??? [START ON 08/14/2022] predniSONE 10 mg Oral Daily Followed by ??? [START ON 08/19/2022] predniSONE 5 mg Oral Daily ??? nicotine 1 patch Transdermal Daily And ??? Patch Verification 1 patch Transdermal BID ??? sodium chloride 0.9 % (flush) 5 mL Intravenous BID ??? lidocaine 3 patch Transdermal Daily ??? enoxaparin 40 mg Subcutaneous Nightly Drips: ??? lactated Ringers 100 mL/hr (08/05/22 0240) PRN: HYDROmorphone OR HYDROmorphone, ondansetron, ipratropium-albuteroL, sodium chloride 0.9 % (flush), lidocaine, lidocaine-EPINEPHrine Allergies: Allergies Allergen Reactions ??? Allergenic Extracts Pollen ??? Tramadol Low potassium ??? Zoloft [Sertraline] Nausea And Vomiting OBJECTIVE Vitals: T Temp: [36.4 ??C (97.5 ??F)-36.8 ??C (98.2 ??F)] HR Heart Rate: -- BP BP: (151-198)/(67-129) RR Resp: [20-22] SpO2 SpO2: [91 %-97 %] 08/04 0701 - 08/05 0700 In: 3864 [P.O.:1960; I.V.:1904] Out: 4600 [Urine:3850] Wt Last 97.5 kg (215 lb) Admit 97.52 kg Physical Exam: CONST: Awake, alert, no acute distress HEENT: sclerae anicteric, NGT in place RESP: normal RR CARDIAC: RRR GI: abdomen soft, non-tender, non-distended MSK: legs warm SKIN: No jaundice NEURO: Grossly intact PSYCH: Pleasant, appropriate affect Labs: Labs personally reviewed in eDH CBC: Recent Labs 08/04/22 2324 08/01/22 2215 WBC 10.1* 12.6* HGB 13.6 13.7 PLATELET 285 286 MCV 92.7 92.5 RDWCV 12.3 12.6 COAG: No results for input(s): PTT, INR, PT in the last 168 hours. CHEM: Recent Labs 08/04/22 2324 08/01/22 2215 CREATININE 0.70 0.78 BUN 10 13 NA 137 136 K 3.6 4.1 CL 101 101 CO2 24 23 CALCIUM 9.2 9.2 HEPATIC: Recent Labs 08/04/22 2324 08/01/22 2215 BILITOT 0.3 0.2 BILIDIR -- 0.1 ALKPHOS 73 84 AST 13 13 ALT 22 23 ALBUMIN 3.7 4.4 LIPASE 12 11 INFLAMM: No results for input(s): CRP in the last 168 hours. IMAGING: Reports and images personally reviewed in eDH. Images independently interpreted. XR Abdomen 1 view (Generic) Final Result FINDINGS/IMPRESSION: Esophagogastric tube tip projects over the stomach, although the side-port projects about the expected region of the GE junction (consider advancing). Preliminary report signed by: Ama Valladares at 08/05/2022 3:01 AM I have personally reviewed the image(s) and the resident's interpretation and agree with the findings, Reymundo Fischer MD at 08/05/2022 3:21 AM Thank you for letting us participate in the care of this patient. If you are a health care provider and have any questions regarding this report, please contact the number below. For patients who have questions please contact the health customer care professional that requested your imaging first. Electronically signed by: Reymundo Fischer MD, [facility] ([phone]), at 08/05/2022 3:[address] Abdomen & Pelvis wo Contrast Final Result Findings suggesting pyelonephritis of the lone RIGHT kidney. Moderate to severe gastric distention. Mild atelectasis at the included lung bases. Moderate pancolonic stool burden Thank you for letting us participate in the care of this patient. If you are a health care provider and have any questions regarding this report, please contact the number below. For patients who have questions please contact the health customer care professional that requested your imaging first. Electronically signed by: Reymundo Fischer MD, [facility] ([phone]), at 08/05/2022 12:23 AM MRI Lumbar Spine wwo Contrast Final Result 1. Acute superior endplate fracture of T12 with 20% vertebral body height loss. Minimal posterior bony retropulsion contributes to mild spinal canal stenosis at T11-T12. No cord contact or deformity. No definitive accompanying enhancing mass. 2. No osseous metastatic disease in the thoracic or lumbar spine. Comment: The following findings are so common in people without low back pain that while we report their presence, they must be interpreted with caution and in context of the clinical situation (Reference- Jarvik Et Al, Spine 2001). Findings: (Prevalence in patients without low back pain), disc degeneration (decreased T2 signal, height loss, bulge) (91%), disc T2-signal loss (83%), disc height loss (56%), disc bulge (64%), disc protrusion (32%), annular fissure (38%). I have personally reviewed the image(s) and the resident's interpretation and agree with the findings, Devin Mario Do at 08/02/2022 5:08 PM Thank you for letting us participate in the care of this patient. If you are a health care provider and have any questions regarding this report, please contact the number below. For patients who have questions please contact the health customer care professional that requested your imaging first. Electronically signed by: Devin Mario Do, [facility] ([phone]), at 08/02/2022 5:08 PM MRI Thoracic Spine wwo Contrast Final Result 1. Acute superior endplate fracture of T12 with 20% vertebral body height loss. Minimal posterior bony retropulsion contributes to mild spinal canal stenosis at T11-T12. No cord contact or deformity. No definitive accompanying enhancing mass. 2. No osseous metastatic disease in the thoracic or lumbar spine. Comment: The following findings are so common in people without low back pain that while we report their presence, they must be interpreted with caution and in context of the clinical situation (Reference- Jarvik Et Al, Spine 2001). Findings: (Prevalence in patients without low back pain), disc degeneration (decreased T2 signal, height loss, bulge) (91%), disc T2-signal loss (83%), disc height loss (56%), disc bulge (64%), disc protrusion (32%), annular fissure (38%). I have personally reviewed the image(s) and the resident's interpretation and agree with the findings, Devin Mario Do at 08/02/2022 5:08 PM Thank you for letting us participate in the care of this patient. If you are a health care provider and have any questions regarding this report, please contact the number below. For patients who have questions please contact the health customer care professional that requested your imaging first. Electronically signed by: Devin Mario Do, [facility] ([phone]), at 08/02/2022 5:08 PM Request For 2nd Read CT Chest Abdomen Pelvis Final Result 1. 16 x 13.4 cm predominantly cystic lower abdominal mass with peripheral mural nodularity. 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 Regions of mural nodularity are suspicious for malignancy. No evidence of rupture/pseudomyxoma. 2. Sub-6 mm left lower lobe pulmonary nodules are suspected to represent intrapulmonary lymph nodes. Consider follow-up noncontrast chest CT in 6 months. 3. Hepatic steatosis. 4. Absent left kidney. I have personally reviewed the image(s) and the resident's interpretation and agree with the findings, Angel Baker DO at 08/02/2022 8:41 AM Thank you for letting us participate in the care of this patient. If you are a health care provider and have any questions regarding this report, please contact the number below. For patients who have questions please contact the health customer care professional that requested your imaging first. Request For 2nd Read CT Spine Final Result Abnormal Overall mild degenerative changes. Left paracentral disc herniation at L5-S1 may impinge upon the traversing left S1 nerve root. Consider lumbar spine MRI for further evaluation. Partially imaged large cystic structure in the pelvis. Unexpected finding. Please see CT abdomen/pelvis report for details and full evaluation. Thank you for letting us participate in the care of this patient. If you are a health care provider and have any questions regarding this report, please contact the number below. For patients who have questions please contact the health customer care professional that requested your imaging first. Electronically signed by: Angel Rodriguez [facility] ([phone]), at 08/02/2022 8:25 AM Request for 2nd read Ultrasound Study Final Result Large cystic lesion with mural nodularity in the RIGHT adnexa highly suspicious for malignancy Thank you for letting us participate in the care of this patient. If you are a health care provider and have any questions regarding this report, please contact the number below. For patients who have questions please contact the health customer care professional that requested your imaging first. Electronically signed by: Sandra Henderson MD, [facility] ([phone]), at 08/02/2022 10:18 AM Film Library- Storage Only Ultrasound Study Final Result Film Library- Storage Only CT Spine Final Result Film Library- Storage Only CT Chest Abdomen Pelvis Final Result ENDOSCOPY: Reports and images personally reviewed in eDH OSH RECORDS: Obtained and personally reviewed ASSESSMENT & PLAN: Katherynkarson Carranza 61 y.o./ w/ PMH of Depression/Anxiety, HTN, opiate dependence adm to the [facility] service for surgical management of complex adnexal mass. GI is consulted for concern of GOO. Post-operatively the patient developed abdominal pain and vomiting. CTAP was obtained and showed moderate to severe gastric distention. NGT was placed and initially put out 1L guo fluid, however had minimal output after that initial output. She was having flatus, no bowel movements yet. We performed EGD todayand this ruled out gastric outlet obstruction. She did have minor erosions in the stomach likely from NG tube and she had a small ulcer with minimal inflammation at the pylorus, which could be ischemic in the setting of surgery recently. Given the unremarkable EGD and lack of GOO, it is possible that she had a post op ileus in the setting of surgery, opiates, and immobilization. The timing of this is a little strange given the acuity, but lack of GOO and ongoing output from NGT makes something like vagal nerve plexus injury less likely. Furthermore, given the patient has never had issues likethis before, a motility disorder is also highly unlikely. Recommendations: - NGT management per primary team - avoid opiates, encourage bowel regimen and mobilization - PPI BID for 6-8 weeks (can transition to PO when NGT removed) Patient seen with Dr. Obrien. Thank you for involving us in the care of this patient. Please call/page should any further questions arise. Sarah Reed MD PGY-4, Gastroenterology Associated attestation - Donnie Obrien MD - 08/05/2022 6:56 PM EST I have seen and evaluated the patient with Dr. Reed. I have reviewed the fellow's history during the encounter and I agree with the details as written above. My physical examination confirms the above findings. The assessment and plan were formulated in discussion with me at the time of the encounter and I agree with them as documented. Donnie Obrien MD, [facility] [employer] manager Section of Gastroenterology and Hepatology * Consult Note - Jf Hawk MD - 08/05/2022 5:38 AM EST ACUTE CARE SURGERY INPATIENT CONSULT NOTE Patient ID: Patient Name: Katheryn Carranza : 1960 Admit Date: 08/01/2022 9:16 PM Hospital Day: 3 History of Present Illness: Katheryn Carranza is a 61 y.o. female currently admitted to the [facility] s/p diagnostic lap converted to open left salpingo-oophorectomy for a large (17- 18cm) benign-appearing cystic mass which was densely adherent to the pelvic floor, sidewall, and the overlying sigmoid mesentery peritoneum. It was removed intact. There was no carcinomatosis, ascites, or concern for malignancy. The patient was recovering well until this evening when she developed new onset abdominal pain and distention, significant nausea, and intractable vomiting. A CT was obtained by the primary team which demonstrated severe gastric distention and mild gaseous distention of the first part of the duodenum without other small bowel or colonic dilatation. General Surgery was consulted due to the degree of gastric distention. An NG tube was placed at the bedside with immediate return of over 1L brown gastric contents in addition to a significant volume of emesis. She has not had a bowel movement since surgery. She continues to pass flatus. She is hypertensive but vitals are otherwise normal on RA. Her WBC count is 10.1 but labs are otherwise essentially normal. Her abdomen is obese, distended, tympanic, and moderatelytender. She does not have a history of delayed gastric emptying or gastric outlet obstruction. She is not a diabetic. Past Medical History: Past Medical History: Diagnosis [...] MAMMOPLASTY, EVA performed by DEMETRA SOMMERS at [facility] MA[facility] OR ??? PRO LAP, DIAGNOSTIC ABDOMEN Left 08/02/2022 LAPAROSCOPY, DIAGNOSTIC, ABDOMEN (WRVU 5.14) performed by Antonio Rojas MD at [facility] OR ??? PRO REMOVAL OF OVARY/TUBE(S) Left 08/02/2022 @SALPINGO-OOPHORECTOMY, UNILATERAL OR EVA (WRVU 12.16) performed by Antonio Rojas MD at [facility] OR Medications: ??? acetaminophen 1,000 mg Intravenous Q8H YNES ??? [START ON 08/06/2022] pantoprazole 40 mg Intravenous Daily ??? predniSONE 50 mg Oral Daily Followed by ??? [START ON 08/09/2022] predniSONE 20 mg Oral Daily Followed by ??? [START ON 08/14/2022] predniSONE 10 mg Oral Daily Followed by ??? [START ON 08/19/2022] predniSONE 5 mg Oral Daily ??? nicotine 1 patch Transdermal Daily And ??? Patch Verification 1 patch Transdermal BID ??? sodium chloride 0.9 % (flush) 5 mL Intravenous BID ??? lidocaine 3 patch Transdermal Daily ??? enoxaparin 40 mg Subcutaneous Nightly Current Outpatient Medications Medication Instructions ??? amitriptyline (ELAVIL) 100 mg, Oral, NIGHTLY ??? atenoloL (TENORMIN) 50 mg, DAILY ??? baclofen (LIORESAL) 10 mg, 3 TIMES DAILY ??? cyclobenzaprine (FLEXERIL) 10 mg, 3 TIMES DAILY PRN ??? dihydroergotamine (MIGRANAL) 0.5 mg/pump act. (4 mg/mL) [place], Non-Aerosol One spray per nostril, while holding the opposite nostril closed. Wait 15 minutes then repeat (total of 4 sprays - 2 pernostril). ??? estradioL (ESTRACE) 1 mg, DAILY ??? gabapentin (NEURONTIN) 300 mg, Oral, 3 TIMES DAILY ??? hydrOXYzine (VISTARIL) 25 mg, Oral, 2 TIMES DAILY PRN ??? ketoconazole (NIZORAL) 2 % cream Topical, PRN ??? Miscellaneous Medical Supply Misc Bilateral wrist splints for CTS ??? multivitamin (THERAGRAN) tablet 1 tablet, DAILY ??? naproxen sodium (ANAPROX DS) 550 mg, Oral, 2 TIMES DAILY PRN, Can be taken with or without Vistaril ??? OnabotulinumtoxinA (BOTOX) 155 Units, Injection, EVERY 12 WEEKS ??? pantoprazole EC (PROTONIX) 40 mg, DAILY ??? promethazine (PHENERGAN) 25-50 mg, Rectal, EVERY 6 HOURS PRN ??? QUEtiapine (SEROQUEL) 100 mg, Oral, NIGHTLY ??? tiZANidine (ZANAFLEX) 4 mg, Oral, DAILY Allergies: Allergies Allergen Reactions ??? Allergenic Extracts Pollen ??? Tramadol Low potassium ??? Zoloft [Sertraline] Nausea And Vomiting Social History: Social History Tobacco Use ??? Smoking status: Every Day Packs/day: 0.25 Years: 35.00 Pack years: 8.75 Types: Cigarettes ??? Smokeless tobacco: Never Substance Use Topics ??? Alcohol use: No Comment: denies h/o ETOH abuse ??? Drug use: Yes Types: Marijuana Comment: marijuana use (not medical marijuana), denies h/o drug abuse Family History: Family History Problem Relation Age of Onset ??? Alcohol Use Disorder Sister ??? Cerebrovascular Accident Sister ??? Migraines Sister ??? Alcohol Use Disorder Brother ??? Migraines Sister ??? Breast Cancer Maternal Aunt ??? Arthritis Neg Hx ??? Asthma Neg Hx ??? Cancer Neg Hx ??? Heart Disease Neg Hx ??? Substance Use Disorder Neg Hx Physical Exam: Body mass index is 35.78 kg/m??. Temp: [36.4 ??C (97.5 ??F)-36.8 ??C (98.2 ??F)] Heart Rate: -- Resp: [20-22] BP: (151-198)/(67-129) SpO2: [91 %-97 %] Heart Rate from SpO2: [64 bpm-76 bpm] GEN: A&O, ill-appearing HEENT: anicteric sclerae CV: regular rate and rhythm PULM: no increased work of breathing on RA, CTAB ABD: obese, distended, tympanic, moderately tender, surgical dressing in place over midline laparotomy NEURO: grossly intact Recent Labs 08/04/22 2324 08/01/22 2215 WBC 10.1* 12.6* HGB 13.6 13.7 HCT 39.1 39.3 PLATELET 285 286 Recent Labs 08/04/22 2324 08/01/22 2215 NA 137 136 K 3.6 4.1 CL 101 101 CO2 24 23 BUN 10 13 CREATININE 0.70 0.78 Imaging: Results for orders placed or performed during the hospital encounter of 08/01/[address] Request For [address] Read CT Chest Abdomen Pelvis (Exam End: 08/01/2022 10:31 PM) Impression 1. 16 x 13.4 cm predominantly cystic lower abdominal mass with peripheral mural nodularity. 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 Regions of mural nodularity are suspicious for malignancy. No evidence of rupture/pseudomyxoma. 2. Sub-6 mm left lower lobe pulmonary nodules are suspected to represent intrapulmonary lymph nodes. Consider follow-up noncontrast chest CT in 6 months. 3. Hepatic steatosis. 4. Absent left kidney. I have personally reviewed the image(s) and the resident's interpretation and agree with the findings, Angel Baker, DO at 08/02/2022 8:41 AM Thank you for letting us participate in the care of this patient. If you are a health care provider and have any questions regarding this report, please contact the number below. For patients who have questions please contact the health customer care professional that requested your imaging first. Electronically signed by: Angel Baker DO, [facility] ([phone]), at 08/02/2022 8:41 AM Request For 2nd Read CT Spine (Exam End: 08/01/2022 10:30 PM) Impression Overall mild degenerative changes. Left paracentral disc herniation at L5-S1 may impinge upon the traversing left S1 nerve root. Consider lumbar spine MRI for further evaluation. Partially imaged large cystic structure in the pelvis. Unexpected finding. Please see CT abdomen/pelvis report for details and full evaluation. Thank you for letting us participate in the care of this patient. If you are a health care provider and have any questions regarding this report, please contact the number below. For patients who have questions please contact the health customer care professional that requested your imaging first. Electronically signed by: Angel Rodriguez [facility] ([phone]), at 08/02/2022 8:25 AM Request for 2nd read Ultrasound Study (Exam End: 08/01/2022 10:29 PM) Impression Large cystic lesion with mural nodularity in the RIGHT adnexa highly suspicious for malignancy Thank you for letting us participate in the care of this patient. If you are a health care provider and have any questions regarding this report, please contact the number below. For patients who have questions please contact the health customer care professional that requested your imaging first. Electronically signed by: Sandra Henderson MD, [facility] ([phone]), at 08/02/2022 10:18 AM MRI Lumbar Spine wwo Contrast (Exam End: 08/02/2022 4:14 PM) Impression 1. Acute superior endplate fracture of T12 with 20% vertebral body height loss. Minimal posterior bony retropulsion contributes to mild spinal canal stenosis at T11-T12. No cord contact or deformity. No definitive accompanying enhancing mass. 2. No osseous metastatic disease in the thoracic or lumbar spine. Comment: The following findings are so common in people without low back pain that while we report their presence, they must be interpreted with caution and in context of the clinical situation (Reference- Jarvik Et Al, Spine 2001). Findings: (Prevalence in patients without low back pain), disc degeneration (decreased T2 signal, height loss, bulge) (91%), disc T2-signal loss (83%), disc height loss (56%), disc bulge (64%), disc protrusion (32%), annular fissure (38%). I have personally reviewed the image(s) and the resident's interpretation and agree with the findings, Devin Mario Do at 08/02/2022 5:08 PM Thank you for letting us participate in the care of this patient. If you are a health care provider and have any questions regarding this report, please contact the number below. For patients who have questions please contact the health customer care professional that requested your imaging first. Electronically signed by: Devin Mario Do, [facility] ([phone]), at 08/02/2022 5:08 PM MRI Thoracic Spine wwo Contrast (Exam End: 08/02/2022 4:14 PM) Impression 1. Acute superior endplate fracture of T12 with 20% vertebral body height loss. Minimal posterior bony retropulsion contributes to mild spinal canal stenosis at T11-T12. No cord contact or deformity. No definitive accompanying enhancing mass. 2. No osseous metastatic disease in the thoracic or lumbar spine. Comment: The following findings are so common in people without low back pain that while we report their presence, they must be interpreted with caution and in context of the clinical situation (Reference- Jarvik Et Al, Spine 2001). Findings: (Prevalence in patients without low back pain), disc degeneration (decreased T2 signal, height loss, bulge) (91%), disc T2-signal loss (83%), disc height loss (56%), disc bulge (64%), disc protrusion (32%), annular fissure (38%). I have personally reviewed the image(s) and the resident's interpretation and agree with the findings, Devin Mario Do at 08/02/2022 5:08 PM Thank you for letting us participate in the care of this patient. If you are a health care provider and have any questions regarding this report, please contact the number below. For patients who have questions please contact the health customer care professional that requested your imaging first. Electronically signed by: Devin Mario Do, [facility] ([phone]), at 08/02/2022 5:[address] Abdomen & Pelvis wo Contrast (Exam End: 08/05/2022 12:10 AM) Impression Findings suggesting pyelonephritis of the lone RIGHT kidney. Moderate to severe gastric distention. Mild atelectasis at the included lung bases. Moderate pancolonic stool burden Thank you for letting us participate in the care of this patient. If you are a health care provider and have any questions regarding this report, please contact the number below. For patients who have questions please contact the health customer care professional that requested your imaging first. Electronically signed by: Reymundo Fischer MD, [facility] ([phone]), at 08/05/2022 12:23 AM XR Abdomen 1 view (Generic) (Exam End: 08/05/2022 2:56 AM) Impression FINDINGS/IMPRESSION: Esophagogastric tube tip projects over the stomach, although the side-port projects about the expected region of the GE junction (consider advancing). Preliminary report signed by: Ama Valladares at 08/05/2022 3:01 AM I have personally reviewed the image(s) and the resident's interpretation and agree with the findings, Reymundo Fischer MD at 08/05/2022 3:21 AM Thank you for letting us participate in the care of this patient. If you are a health care provider and have any questions regarding this report, please contact the number below. For patients who have questions please contact the health customer care professional that requested your imaging first. Electronically signed by: Reymundo Fischer MD, [facility] ([phone]), at 08/05/2022 3:21 AM Assessment: Katheryn Carranza is a 61 y.o. female 3 Days Post-Op s/p s/p diagnostic lap converted to open left salpingo-oophorectomy for a large (17-18cm) benign- appearing cystic mass. She was initially recovering well until POD 2 when she developed new onset of onset abdominal pain and distention, significant nausea, and intractable vomiting with severe gastric distention identified on CT. The etiology of her gastric distention is unclear at this point in time. She has no history of similar symptoms. Recommendations: - Continue gastric decompression via NGT - NPO, IVF - Serial abdominal exams - Replete electrolytes PRN and minimize narcotics as able - Surgery will continue to follow Patient and plan discussed with attending surgeon Dr. Hawk. Please page [phone] with questions. Arnav Singh Jr, MD General Surgery PGY-2 08/05/2022 5:38 AM I saw and evaluated the patient with Dr. Singh (resident). I have independently reviewed the relevant laboratory and radiographic studies. I have edited the above note and agree with the details as written. My physical examination confirms the resident's findings. The assessment and plan were fo rmulated in discussion with me at the time of the visit and I agree with them as documented. Jf Hawk MD * Consult Note - Tosin Bland, PSYCHIATRIC - 08/03/2022 2:45 PM EST BIT Evaluation (Behavioral Intervention Team) Referral source: Consult request by primary team physician Reason for referral: Opioid Use Disorder. Medication-Assisted Treatment Plan Was patient offered MOUD: Yes. Patient accepts MOUD?: Ambivalent. 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 BIT was consulted to assess for OUD and provide patient with some MAT options if amenable. Patient stated that she doesn't see herself as someone with a substance use disorder. She said thatvance uses pills recreationally such as vicodan and oxycodone. Prior to her current medical crisis,she reports taking pills and smoking marijuana on the weekends. The pills are provided by friends. Prior to this hospitalization as her abdominal pain was worsening, she received a prescription of toradol from her PCP and when that didn't work well, she got vicodan from a friend. She used these daily for a couple of weeks before presenting to the Emergency Department. Patient does agree that it may be difficult for her to fully taper off of opioid medications. We discussed how the brain starts to rely on the medications even when there's no longer the original physical pain to treat. She endorsed an understanding of this concept. She asked about treatment options. This clinician provided her and her with an informational sheet describing the common OUDoptions (buprenorphine, methadone, naltrexone and no medication). Patient stated that she's still in major pain right now so she's not in a position to think about this at the moment. As pain medications begin to be decreased in anticipation of discharge, patient said that she will think about whether or not she wants to learn more about the MAT options. She doesknow that she doesn't want to have to go to a clinic every day because of only having 1 vehicle. ?? Assessment: Patient was awake and open to discussion during today's meeting. She doesn't self-identify as someone with a substance use disorder. In terms of the DSM-V Opioid Use Disorder diagnostic list, she endorsed having episodes of cravings and having a tolerance for opiates though she did not endorse the other symptoms during today's conversation. However, she did express some interest in learning more about MAT options as she approaches readiness for discharge and the need for acute pain relief is decreased. Interventions delivered: Motivational interviewing Patient education Plan: 1. Will continue to check in with patient about thoughts regarding OUD and MAT 2. Will involve DEAN MEJIA or if patient wants to talk more specifically about MAT and if team wants to consult about MAT initiation Outstanding Discharge Needs: Other: TBD Time spent with the patient (min):25 minutes Time spent on case coordination (min): 15 minutes Tosin Bland MA, PSYCHIATRIC [facility] - BIT (Behavioral Intervention Team) Dept. of Psychiatry - Inpatient Psych. Services Pager: [phone] * Initial Assessments - Ava Rogers RN - 08/03/2022 2:40 PM EST Office of Care Management Initial Assessment Ava Rogers RN reviewed record and discussed patient with Care Team. Source of Information: Team, bedside nurse, medical record, and Patient, Spouse Introduced self/reviewed role; services accepted. 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 Covid Vaccination Status: 1st dose only (had a poor reaction after first covid vaccine) Past medical History: Past Medical History: Diagnosis Date ??? ADD (attention deficit disorder) ??? Depression ??? ARCHANA (generalized anxiety disorder) ??? Headache ??? Hypertension ??? Neck pain on left side 07/04/2012 ??? Thoracic compression fracture, sequela 08/03/2022 ??? Tobacco abuse Hospitalizations Within the Past 30 Days: no previous admission in last 30 days Current Decision-Making Capacity: Self Advance Care Planning: Attempt Cardiopulmonary Resuscitation - Inpatient Received -Advanced Directive: Yes, on file Who is your DPOA-HC?: Spouse Current Coping/Education/Information Needs: Pain management, healing Current Functional Ability: Assistive Equipment, Assistive Person Functional Status Prior to Admission: Independent (Fully independent with all ADLS and iADLs, drives, enjoys gardening, margaux) Prior ADLs & IADLs: Independent with all ADLs & IADLs Home Environment: Others in the home: spouse (4 [place] shepards). Current Living Arrangements: home/apartment/condo. Accessibility Concerns:2 level log home (4 REGINO without rails) or 6 REGINO with rails); bedroom on 2nd level [address] Resource / Environmental Concerns: Resource/Environmental Concerns: none Current DME: none (Friend has given her a FWW to use if needed) Home Address confirmed as: [address] [id number] Social & Family Supports: All names listed below confirmed with patient as current and correct Extended Emergency Contact Information Primary Emergency Contact: Prieto Carranza Address: [address] [place] [id number] [facility] Relation: Spouse Secondary Emergency Contact: [place] [address] [facility] Relation: Child Current Care Provided by: self Provides Primary Care For: no one Caregiver if needed: spouse, child(mykel), adult Quality of Family relationships: supportive (Has supportive , 2 supportive children that live local and 3 grandchildren) Community Resources being provided currently: none Behavioral Health History: Denied, takes Seroquel at night Substance Use/Abuse confirmed: Social History Tobacco Use Smoking Status Every Day ??? Packs/day: 0.25 ??? Years: 35.00 ??? Pack years: 8.75 ??? Types: Cigarettes Smokeless Tobacco Never In the [...] points: Addiction likely Other Pertinent/Service Specific Information: NO INSURANCE/ consider prescription costs Health/Prescription Coverage: Primary Insurance: N/A Payor: / Secondary Insurance: N/A ; Prescription Coverage: No ([facility] Care and Kiran) Preferred Pharmacy: [id number] [address] Status: Patient is a : No Primary Care Provider confirmed: Lena Womack, JACKIE [phone] Patient/Caregiver Goals of Treatment: Pain control Potential Needs for Transition of Care: none Agency Referrals: n/a Transportation: no concerns Transportation Anticipated: family or friend will provide Concerns to be Addressed: no discharge needs identified Assessment: Patient is admitted to [facility] [employer] service for POD#1 s/p diagnostic laparoscopy, converted to exporatory laparotomy and left salpingo-oophorectomy for 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 Plan: DC home with family. No home care needs anticipated. Friend gave her a FWW to use if needed. [place] pending evaluation for Financial assistance application and to evaluate for Medicaid eligibility. Patient is uninsured. She has am appt tomorrow with social security as she turns 62 in November. A member of the Care Management team will continue to monitor progress, follow for continuity of care and assist with transition of care planning. * Consult Note - Josias Castellano MD - 08/03/2022 7:28 AM EST Neurology Inpatient Consult Note - 08/03/2022 Admit date: 08/01/2022 Attending: Antonio Rojas MD ID: Katheryn Carranza is a 61 y.o. female with PMHx of ARCHANA, htn, presenting in t/s/o worsening abdominal and radicular pain in t/s/o CT c/f L disc herniation; neurology consulted for the latter. HPI: Patient reports about 3 weeks ago, she noticed pain radiating from lower back down the side of her hip and the lateral side of her leg to the sole of her foot involving all the toes. This started on the L but progressed to involve both sides. It has since changed in character, now involving the medial side of her legs. Last , she started to experience worsening of the back and leg pain, as well as new abdominal pain. Now, she has pain in mid-abdomen, medial legs, and toes. The most severe pain she is experiencing is abdominal pain that radiates into the back. Between the legs, both are equally severe, 9/10 pain in severity. She also has paresthesias in all toes of both feet, medial legs, and in the middle of her groin- though she denies saddle anesthesia. This began evening. She is also weak in her BL LE. She reports this started around 3 weeks ago and has progressively worsened. She fell twice, on Tuesday night and Tuesday, which she attributes to her legs having given out. She was having trouble walking as well, and has been using a stand to help her walk since a couple days ago. About 3 weeks ago, she went to her PCP to f/u a knee issue. At this time, she had the back and leg pain that had not improved with Toradol, so PCP prescribed steroid course. She only took 1 day of steroids because she started taking Toradol again, and she was advised to not take them both together.The ER doctor on Tuesday advised her to resume steroids, so she resumed them on Tuesday and has taken3 days worth as of today. She has taken 60 mg qd for the past 3 days. Steroids have offered no relief. She denies any incontinence. She is able to feel when she is urinating or having a bowel movement. Since Tuesday she feels like she has to urinate 'all the time d/t pressure' which I suspect could be r/t her ovarian issues. She was previously using stool softeners for about a month but is no longer using them, and says this precedes her back issues. She was constipated which is why she started, but she is no longer constipated as she figured out yogurt helps so she stopped the stool softener. She denies any heavy lifting or exertion prior to this. Back trauma: About a month ago, she trippedon her dog and landed on her R knee and back. A couple days later, she slipped on snow and fell directly on back. She says dilaudid is the only thing so far that has helped her back and leg pain. She reports laying on her L does worsen her pain. Interval: - patient underwent removal of adnexal mass yesterday > still reports abdominal pain > leg pain is now much better than yesterday, just 'achy' > feels like just her toes are 'asleep', and some slight paresthesias on the insides of her legsbut improved from yesterday > difficult for her to truly characterize leg sensations. Initially states legs are still numb, then tells me numbness has actually resolved and she has no discomfort except achy legs and 'asleep'toes, then tells me paresthesias persist. Overall, she is certain they feel better than yesterday. > on sensory testing today, she has equal and intact sensation between BL LE and UE; anteromedial diminished sensation to PP noted on exam yesterday has resolved. - MRI L- spine performed -> L paracentral disc protrusion @L5-S1 contacting, mildly displacing prox L S1 nerve roots - MRI T-spine -> T12 fx, bony retropulsion w/ mild spinal cord stenosis at T11- 12, no cord contact. - Nsgy recs no operative indication for T/L spine, no need for bracing of T- spine fx, f/u PRN. Review of Systems: Negative except as documented in the HPI. Hospital Medications: Current Facility-Administered Medications Medication Dose Route Frequency Provider Last Rate Last Admin ??? acetaminophen (Tylenol) tablet 650 mg 650 mg Oral Q6H Bubba Schroeder MD 650 mg at 08/03/22 0309 ??? atenoloL (Tenormin) tablet 50 mg 50 mg Oral Daily Angely Scruggs MD ??? cyclobenzaprine (Flexeril) tablet 10 mg 10 mg Oral TID PRN Bubba Schroeder MD 10 mg at 08/02/22 2223 ??? QUEtiapine (SEROquel) tablet 100 mg 100 mg Oral Nightly Bubba Schroeder MD 100 mg at 08/02/22 2359 ??? tiZANidine (Zanaflex) tablet 4 mg 4 mg Oral Daily Bubba Schroeder MD ??? sodium chloride 0.9 % (flush) (BD PosiFlush Normal Saline 0.9) flush 5 mL 5 mL Intravenous BID Bubba Schroeder MD 5 mL at 08/03/22 0000 ??? sodium chloride 0.9 % (flush) (BD PosiFlush Normal Saline 0.9) flush 5-20 mL 5-20 mL Intravenous Q1 Min PRN Bubba Schroeder MD ??? lidocaine (Xylocaine) 1% (10 mg/mL) injection 3 mg 0.3 mL Subcutaneous Once PRN Bubba Schroeder MD ??? senna-docusate (Pericolace) 8.6-50 mg per tablet 2 tablet 2 tablet Oral BID Bubba Schroeder MD2 tablet at 08/02/228 ??? nicotine (Nicoderm CQ) 14 mg/24 hr patch 14 mg 1 patch Transdermal Daily Bubba Schroeder MD 14mg at 08/03/22 0001 And ??? nicotine (Nicoderm CQ) 14 mg/24 hr patch Patch Verification 1 patch Transdermal BID Bubba Schroeder MD ??? lactated ringers infusion 1,000 mL Intravenous Continuous Bubba Schroeder MD 100 mL/hr at 08/03/22 0620 1,000 mL at 08/03/22 0620 ??? docusate sodium (Colace) capsule 100 mg 100 mg Oral BID Bubba Schroeder MD 100 mg at 08/02/228 ??? polyethylene glycoL (Miralax) packet 17 g 17 g Oral Daily PRN Bubba Schroeder MD ??? ketorolac (Toradol) (30 mg/mL) injection 15 mg 15 mg Intravenous Q6H Bubba Schroeder MD 15 mg at 08/03/22 0609 Followed by ??? [START ON 08/04/2022] ibuprofen (Advil) tablet 600 mg 600 mg Oral Q6H Bubba Schroeder MD ??? amitriptyline (Elavil) tablet 100 mg 100 mg Oral Nightly Bubba Schroeder MD ??? HYDROmorphone (Dilaudid) (1 mg/mL) injection syringe 0.6 mg 0.6 mg Intravenous Q30 Min PRN Oma Gilman PA 0.6 mg at 08/02/22 1741 ??? lidocaine-EPINEPHrine (1% - 1:100,000) injection Once PRN Antonio Rojas MD 25 mL at 08/02/22 191 ??? lidocaine (Lidoderm) 5% patch 3 patch 3 patch Transdermal Daily Bubba Schroeder MD ??? HYDROmorphone (Dilaudid) (1 mg/mL) in sodium chloride 0.9% 50 mL C4 PLANNER infusion syringe Intravenous C4 PLANNER Only Bubba Schroeder MD 50 mg at 08/02/222124 ??? diphenhydrAMINE (Benadryl) (50 mg/mL) injection 25 mg 25 mg Intravenous Q30 Min PRN Bubba Schroeder MD ??? C4 PLANNER wood Intravenous Continuous PRN Bubba Schroeder MD ??? HYDROmorphone (mg) C4 PLANNER shift total and Settings verification Intravenous 2 Times Daily- C4 PLANNER Shift Total Bubba Schroeder MD ??? enoxaparin (Lovenox) (40 mg/0.4 mL) subcutaneous injection 40 mg 40 mg Subcutaneous Nightly Bubba Schroeder MD Home Medications: No current facility-administered medications on file prior to encounter. Current Outpatient Medications on File Prior to Encounter Medication Sig Dispense Refill ??? dihydroergotamine (MIGRANAL) 0.5 mg/pump act. (4 mg/mL) [place], Non-Aerosol One spray per nostril, while holding the opposite nostril closed. Wait 15 minutes then repeat (total of 4 sprays - 2 pernostril). 8 mL 5 ??? naproxen sodium (ANAPROX DS) 550 mg Tablet Take 1 tablet by mouth 2 times daily as needed (Mildto Moderate Headache). Can be taken with or without Vistaril 60 tablet 5 ??? OnabotulinumtoxinA (BOTOX) 200 unit Recon Soln Inject 155 Units as directed Every 12 weeks. Indications: Migraine Prevention ??? amitriptyline (ELAVIL) 100 mg Tablet Take 100 mg by mouth nightly. ??? Miscellaneous Medical Supply [facility] [place] Bilateral wrist splints for CTS 2 each 0 ??? hydrOXYzine (VISTARIL) 25 mg Capsule Take 1 capsule by mouth 2 times daily as needed (for Mild to moderate headaches - can be taken with Naproxen sodium). 60 capsule 12 ??? promethazine (PHENERGAN) [address] 1-2 suppositories rectally every 6 hours as needed (Nausea with headache). 15 suppository 5 ??? gabapentin (NEURONTIN) 300 mg Capsule Take 300 mg by mouth 3 times daily. ??? tiZANidine (ZANAFLEX) 4 mg Tablet Take 4 mg by mouth daily. ??? estradiol (ESTRACE) 1 mg tablet Take 1 mg by mouth daily. ??? baclofen (LIORESAL) 10 mg tablet Take 10 mg by mouth 3 times daily. ??? QUEtiapine (SEROQUEL) 25 mg tablet Take 100 mg by mouth nightly. ??? multivitamin (THERAGRAN) tablet Take 1 tablet by mouth daily. ??? atenolol (TENORMIN) 50 mg tablet Take 50 mg by mouth daily. ??? cyclobenzaprine (FLEXERIL) 10 mg tablet Take 10 mg by mouth 3 times daily as needed. ??? pantoprazole (PROTONIX) 40 mg tablet Take 40 mg by mouth daily. ??? ketoconazole (NIZORAL) 2 % cream Apply topically as needed. Past Medical History: Past Medical History: Diagnosis Date ??? ADD (attention deficit disorder) ??? Depression ??? ARCHANA (generalized anxiety disorder) ??? Headache ??? Hypertension ??? Neck pain on left side 07/04/2012 ??? Tobacco abuse Past Surgical History: Procedure Laterality Date ??? BREAST REDUCTION SURGERY Bilateral 12/2011 ??? HYSTERECTOMY ??? PRO REDUCTION OF LARGE BREAST 12/09/2011 REDUCTION MAMMOPLASTY, EVA performed by DEMETRA SOMMERS at [facility] MAIN OR Allergies: Allergies Allergen Reactions ??? Allergenic Extracts Pollen ??? Tramadol Low potassium ??? Zoloft [Sertraline] Nausea And Vomiting Family history: Family History Problem Relation Age of Onset ??? Alcohol Use Disorder Sister ??? Cerebrovascular Accident Sister ??? Migraines Sister ??? Alcohol Use Disorder Brother ??? Migraines Sister ??? Breast Cancer Maternal Aunt ??? Arthritis Neg Hx ??? Asthma Neg Hx ??? Cancer Neg Hx ??? Heart Disease Neg Hx ??? Substance Use Disorder Neg Hx Social history: Social History Tobacco Use ??? Smoking status: Every Day Packs/day: 0.25 Years: 35.00 Pack years: 8.75 Types: Cigarettes ??? Smokeless tobacco: Never Substance Use Topics ??? Alcohol use: No Comment: denies h/o ETOH abuse ??? Drug use: Yes Types: Marijuana Comment: marijuana use (not medical marijuana), denies h/o drug abuse Physical Exam: Vitals: Last value Range last 24 hrs Temperature Temp: 36.4 ??C (97.5 ??F) Temp: [36 ??C (96.8 ??F)-37 ??C (98.6 ??F)] Heart Rate Heart Rate: 76 Heart Rate: [71-80] Blood Pressure BP: 158/90 BP: (131-185)/(88-133) Respiratory Rate Resp: 18 Resp: [11-21] SpO2 SpO2: 93 % SpO2: [90 %-96 %] I/O: 08/02 0701 - 08/03 0700 In: 1698.7 [I.V.:1698.7] Out: 1805 [Urine:1795] General: Appears stated age, appears in pain Neuro: MS: AO x 3 CN: CN II, III, IV, - PERRLA, EOMI without nystagmus, no ptosis CN V - Facial sensation intact/symmetric CN VII - No facial asymmetry CN VIII - Hearing intact to voice/finger rub CN IX, X - Symmetric palate elevation CN XI - SCM, trap strength symmetric CN XII - Tongue midline Motor: No focal atrophy, normal tone throughout Fine motor movements preserved, no bradykinesia Strength: Roots Muscles Action Right Left C5-6 Deltoid Shoulder abduction 5 5 C5-6 Brachialis / Biceps brachii Elbow flexion 5 5 C6-8 Triceps brachii Elbow extension 5 5 C7-T1 Flexor digitorum profundus Digit II-V flexion / kitchen work supervisor 5 5 L2-3 Iliopsoas Hip flexion 5 3 L3-4 Quadriceps femoris Knee extension 5 5 L4-5 Tibialis anterior Ankle dorsiflexion/inversion 5 5 L5-S2 Triceps surae Ankle plantarflexion 5 5 Hip flexion on L ltd. By pain in abdomen Sensory: PP: Able to clearly feel sharp to PP over entire BL LE including medial thigh, improved from yesterday. Still slightly decreased in BL LE compared to UE, to a much lesser extent than yesterday. Reflexes: Arc Right Left Comments Biceps tendon C5-C6 1+ 1+ Brachioradialis tendon C5-C6 1+ 1+ Triceps tendon C6-C7 1+ 1+ Finger flexor (Mellissa) C8-T1 absent absent Patellar ligament L3-L4 2+ 2+ Brisk Plantar (Babinski) L5-S1 equivocal positive Achilles tendon S1-S2 2+ 2+ Brisk 2 beats clonus R ankle, 0 beats L Coordination: FNF intact, no dysmetria or tremor noted Gait: Deferred Labs: Last 3 wbc, hgb, hct plt Recent Labs 08/01/222214 WBC 12.6* HGB 13.7 HCT 39.3 PLATELET 286 Last 3 Lytes Recent Labs 08/01/222214 NA 136 K 4.1 CL 101 CO2 23 BUN 13 CREATININE 0.78 Last 3 LFTs Recent Labs 08/01/222214 AST 13 ALT 23 ALKPHOS 84 BILITOT 0.2 BILIDIR 0.1 Last Ca, Mg, Phos Recent Labs 08/01/222214 CALCIUM 9.2 Diagnostic Tests and Imaging: Results for orders placed or performed during the hospital encounter of 08/01/[address] Chest Abdomen Pelvis (Exam End: 08/01/2022 10:31 PM) Impression 1. 16 x 13.4 cm predominantly cystic lower abdominal mass with peripheral mural nodularity. 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 Regions of mural nodularity are suspicious for malignancy. No evidence of rupture/pseudomyxoma. 2. Sub-6 mm left lower lobe pulmonary nodules are suspected to represent intrapulmonary lymph nodes. Consider follow-up noncontrast chest CT in 6 months. 3. Hepatic steatosis. 4. Absent left kidney. I have personally reviewed the image(s) and the resident's interpretation and agree with the findings, Angel Baker DO at 08/02/2022 8:41 AM Thank you for letting us participate in the care of this patient. If you are a health care provider and have any questions regarding this report, please contact the number below. For patients who have questions please contact the health customer care professional that requested your imaging first. Electronically signed by: Angel Baker DO, [facility] ([phone]), at 08/02/2022 8:41 AM Request For 2nd Read CT Spine (Exam End: 08/01/2022 10:30 PM) Impression Overall mild degenerative changes. Left paracentral disc herniation at L5-S1 may impinge upon the traversing left S1 nerve root. Consider lumbar spine MRI for further evaluation. Partially imaged large cystic structure in the pelvis. Unexpected finding. Please see CT abdomen/pelvis report for details and full evaluation. Thank you for letting us participate in the care of this patient. If you are a health care provider and have any questions regarding this report, please contact the number below. For patients who have questions please contact the health customer care professional that requested your imaging first. Electronically signed by: Angel Rodriguez [facility] ([phone]), at 08/02/2022 8:25 AM Request for 2nd read Ultrasound Study (Exam End: 08/01/2022 10:29 PM) Impression Large cystic lesion with mural nodularity in the RIGHT adnexa highly suspicious for malignancy Thank you for letting us participate in the care of this patient. If you are a health care provider and have any questions regarding this report, please contact the number below. For patients who have questions please contact the health customer care professional that requested your imaging first. Electronically signed by: Sandra Henderson MD, [facility] ([phone]), at 08/02/2022 10:18 AM MRI Lumbar Spine wwo Contrast (Exam End: 08/02/2022 4:14 PM) Impression 1. Acute superior endplate fracture of T12 with 20% vertebral body height loss. Minimal posterior bony retropulsion contributes to mild spinal canal stenosis at T11-T12. No cord contact or deformity. No definitive accompanying enhancing mass. 2. No osseous metastatic disease in the thoracic or lumbar spine. Comment: The following findings are so common in people without low back pain that while we report their presence, they must be interpreted with caution and in context of the clinical situation (Reference- Jarvik Et Al, Spine 2001). Findings: (Prevalence in patients without low back pain), disc degeneration (decreased T2 signal, height loss, bulge) (91%), disc T2-signal loss (83%), disc height loss (56%), disc bulge (64%), disc protrusion (32%), annular fissure (38%). I have personally reviewed the image(s) and the resident's interpretation and agree with the findings, Devin Mario Do at 08/02/2022 5:08 PM Thank you for letting us participate in the care of this patient. If you are a health care provider and have any questions regarding this report, please contact the number below. For patients who have questions please contact the health customer care professional that requested your imaging first. Thoracic Spine wwo Contrast (Exam End: 08/02/2022 4:14 PM) Impression 1. Acute superior endplate fracture of T12 with 20% vertebral body height loss. Minimal posterior bony retropulsion contributes to mild spinal canal stenosis at T11-T12. No cord contact or deformity. No definitive accompanying enhancing mass. 2. No osseous metastatic disease in the thoracic or lumbar spine. Comment: The following findings are so common in people without low back pain that while we report their presence, they must be interpreted with caution and in context of the clinical situation (Reference- Jaylinvik Et Al, Spine 2001). Findings: (Prevalence in patients without low back pain), disc degeneration (decreased T2 signal, height loss, bulge) (91%), disc T2-signal loss (83%), disc height loss (56%), disc bulge (64%), disc protrusion (32%), annular fissure (38%). I have personally reviewed the image(s) and the resident's interpretation and agree with the findings, Devin Mario Do at 08/02/2022 5:08 PM Thank you for letting us participate in the care of this patient. If you are a health care provider and have any questions regarding this report, please contact the number below. For patients who have questions please contact the health customer care professional that requested your imaging first. Electronically signed by: Devin Mario Do [facility] ([phone]), at 08/02/2022 5:08 PM Assessment: Katheryn Carranza is a 61 y.o. female presenting in t/s/o worsening abdominal and radicular pain in t/s/o CT c/f L disc herniation; neurology consulted for the latter. Yesterday, it was noted that the medial thigh-predominant pattern of sensory loss and pain raised c/f femoral nerve involvement, as has been demonstrated to occur in pathologies of the endometrium and ovarian cysts. Accordingly, after adnexal mass removal yesterday, patient reports her leg pain is significantly better. Her sensory exam likewise reveals improvement in sensation today. She still has some paresthesias, and somewhat inconsistently describes mild sensory loss to PP over the anteromedial aspect of legs that is still much better than yesterday. These would be expected to improve with time and PT. MRI performed yesterday showing L paracentral disc protrusion and T11-12 fx. Nsgy recommends no surgical indication at this time especially given clinical improvement. Otherwise, continue supportive care with aggressive pain control per primary care discretion and PT. No further workup or treatment indicated at this time from a neuro perspective. Neuro consult service to sign off. Please re-engage us if additional questions arise. Patient seen with Dr. Pinky Castellano MD Neurology, PGY-3 Consult Neurology Service #[id number] 08/03/2022 Associated attestation - Bhargavi Vance MD - 08/03/2022 9:09 PM EST Neurology Staff Note I have reviewed the resident's history during the visit and I agree with the details as written. Myphysical examination confirms the resident's findings. The assessment and plan were formulated in discussion with me at the time of the visit and I agree with them as documented. Strength exam limited by abd pain today. Sensory exam is variable and inconsistent today. Overall she has had major improvement in her pain that radiates to her legs bilaterally. Suspect pelvic mass was compressing femoral nerve. Please contact us if further questions or issues arise. * Op Note - Antonio Rojas MD - 08/02/2022 6:34 PM EST [facility] [place] Operative Note Patient Name: Katheryn Carranza : [id number] MR#: [id number] Case Date: 08/02/2022 Surgeon: Surgeon(s) and Role: * Antonio Rojas MD - Primary * Angely Scruggs MD - Resident * Bubba Schroeder MD - Resident Preoperative diagnosis: 1. Large left ovarian cyst, slightly complex. 2. Abdominal, pelvic, back, and leg pain. Postoperative diagnosis: 1. Left ovarian serous cystadenoma, final pathology pending. 2. Same. Procedures: 1. Diagnostic laparoscopy. 2. Left salpingo-oophorectomy. Anesthesia: General/local infiltration. Estimated Blood Loss: 10 mL IV fluids: 700 mL. Urine output: 1700 mL. Specimens removed during surgery: Order Name Source Comment Collection Info Order Time CYTOPATHOLOGY NON-GYNECOLOGICAL Pelvic washings obtained during open abdominal surgery 08/02/2022 7:07 PM Pertinent clinical data and significant therapy: left adnexal mass Clinical impression: left adnexal mass Procedure Type: Other (please specify in Comments Field below) Specimen Type: Pelvic wash SPECIMEN TO PATHOLOGY left adnexal mass left ovary and portion of fallopian tube excision 08/02/2022 7:39 PM Time specimen removed from patient: 7:33 PM Number of tissue samples (in container) 1 Drains: Drain/Device Site 12/09/11 Right breast collapsible closed device (Active) Drain/Device Site 12/09/11 Left breast collapsible closed device (Active) Surgical Closure: Primary Closure - skin incision is completely closed without any wires, steph, drains or other devices Disposition: awakened from anesthesia, extubated and taken to the recovery room in a stable condition, having suffered no apparent untoward event. Condition: doing well without problems (Please see the Surgical Encounter Summary for any Implant and Specimen details pertinent to this patient.) HPI/Surgical Indications: Katheryn is a 61-year-old woman who presented urgently to the emergency roomwith a complex pain syndrome. Imaging was performed, showing a left ovarian cystic neoplasm, consistent with a cystadenoma, cystadenofibroma or cystadenocarcinoma of the left ovary. Her tumor markerswere normal. For both diagnostic and therapeutic intention, we recommended removal of this left ovar kenia lesion. She voiced understanding, wished to proceed, and provided written consent. Additionally, she was counseled that many of her pain symptoms are likely unrelated to this, and the goals of the surgery would be to remove the ovary for diagnostic reasons mainly. Findings: 1. Exam under anesthesia: Normal external [...] for malignancy. 4. Frozen section: Not performed. Procedure Description: The patient was identified and consent was reaffirmed. After epidural catheter placement, she was taken to the operating room and general anesthesia was induced. After placement of the appropriate lines by the anesthesia team, she was positioned to lithotomy. Exam under anesthesia was conducted, and the findings are discussed above. An antiseptic preparation of the abdomen,and the perineum, and vagina was performed. The patient was sterilely draped. A Fournier catheter was inserted into the urinary bladder, and remained in place throughout the surgery and for postoperative care. A surgical pause was performed, correctly identifying the intended procedures, antibiotic and DVT prophylaxis, etc. In the left upper quadrant, infiltration analgesia was performed with lidocaine/epinephrine. A 5 mmtransverse skin incision was made, through which an Optiview trocar was placed under direct visualization without injury to the underlying structure. Insufflation was performed. A secondary 12 mm port was placed at the umbilicus after infiltration analgesia, followed by placement of a right sided 5mm port, again after infiltration analgesia. An abdominal survey was performed. The patient was placed in Trendelenburg position, and due to the findings noted above, we could not continue the surgery laparoscopically. Therefore we abandoned the laparoscopic approach. The instruments were removed, the patient was desufflated, and the port sites were removed. The skin was closed with Monocryl. A low vertical midline incision was made, beginning at the symphysis pubis, and extending up and around the umbilicus. Incision was carried through the various layers of the abdomen, using sharp and electrosurgical dissection. The celiotomy was performed sharply, avoiding the underlying bowel. The abdomen was explored and inspected, as was the pelvis, with the findings noted above. A [facility] was assembled and used to assist in exposure. Using a combination of electrosurgical, sharp and digital dissection, the ovary was examined, and the sigmoid mesenteric adhesions were taken off with the ESU and dissection. This required approximately 20 minutes. Similarly, the left pelvic sidewall was opened to enter the retroperitoneal space. Due to the large ovarian lesion, as well as relative low mobility of the specimen, we are not able tovisualize the left ureter. However, by palpation, we are able to isolate, clamp divide and ligate the left ovarian vessels. We continue to use electrosurgical dissection over the fingers to develop the cystic lesion off the pelvic floor, pelvic sidewall, and once the sigmoid colon was off of the str ucture, the bowel was packed out of the pelvis. We continue to complete the lysis of adhesions until the left ovarian cystic lesion was freed and it was then removed from the pelvis and examined off the field, with findings noted above. The ureter was palpated and visualized running in its normal course along the left pelvic sidewall,with no evidence of any involvement with the above described surgical procedures. The ESU was used to obtain hemostasis along some of the peritoneal edges. After opening the specimen, determining that frozen section was not needed, we irrigated the pelvis, unpacked the bowel and examined it from the cecum, all the way to the ligament of Treitz, noting a normal appendix. There were no other concerning findings. We again verified that the uterus, right tube and ovary were surgically absent. At the conclusion of the surgery, all laparotomy tapes were removed and accounted for. The abdomen and pelvis were copiously irrigated with copious amounts of warm sterile saline. The vertical incision was closed with #1 PDS suture in a running, mass technique. Two sutures were used, one in each upper and lower pole of the incision, and the sutures were run and tied together at the midline. The subcutaneous tissues were irrigated with saline. The skin was closed with parminder and a sterile dry dressing was applied. The patient was returned to supine position, as anesthesia was discontinued. She was extubated, taken to the recovery room in stable condition, accompanied by the anesthesiologist and surgeons. The Fournier catheter was left in the urinary bladder. Complications: None. Antibiotic prophylaxis: Cefazolin, 2 g. DVT prophylaxis: Compression devices applied continuously to lower extremities; heparin, 5000 unitssubcutaneously. Surgical Infection Prevention Bundle Used? N/A Attestation: Case Date: 08/02/2022 I was present and I participated during the entire procedure (does not need to include opening and closing). ANTONIO ROJAS MD 08/02/2022 * Consult Note - Amada Booker MD - 08/02/2022 12:42 PM EST [facility] [place] Neurosurgery Consultation Note Date & Time of Consult: 08/02/2022 1207 Referring Service: Horseradish Grinder Onc Referring Attending: Antonio Rojas MD Neurosurgery Attending: Dr. Duenas Place of Consult: ED22/MRI [place] ID: Name: Katheryn Carranza, 61 y.o. female Admission Date: 08/01/2022 Reason for consult/CC: Left paracentral L5/S1 disc herniation HPI: This is a 61 y.o. RIGHT-handed female with a PMH of tobacco abuse, HTN, chronic neck pain who presented to [facility] [place] with c/o progressive back pain x3 weeks with lower extremity numbness found to have large adnexal mass as well as left paracentral disc herniation at L5/S1-- the latter for which Neurosurgery is consulted. Per report/the patient, she tripped and fell over her dog about 3 weeks ago injuring her right knee. Shortly thereafter she noticed some left lower back pain with subsequent numbness in her left leg which progressed to include both legs. She visited her PCP who thought this may be sciatica and prescribed her some prednisone which she tried for a couple of days without benefit. She presented to [facility] ED on 07/29/2022 due to progression of this pain wrapping around to her abdomen mony CT of her abdomen and pelvis as well as a CT of her spine was obtained. As the pain continued to progress she presented to [facility] ED yesterday 08/01 and second reads of the CTs obtained revealed a large adnexal mass as well as a left paracentral disc herniation at L5/S1. Currently Katheryn is having back pain and is visibly uncomfortable. She points out that it is along the left lateral aspect of her back and wraps around to her front bilaterally in her abdominal and groin region. She endorses some decreased sensation in her abdominal region down to her legs worse in her medial thighs. Has had recent falls. Endorses saddle anesthesia. Denies upper extremity symptomsas well as new bowel or bladder issues. No history of anticoagulation or antiplatelets. PMH: Past Medical History: Diagnosis Date ??? ADD (attention deficit disorder) ??? Depression ??? ARCHANA (generalized anxiety disorder) ??? Headache ??? Hypertension ??? Neck pain on left side 07/04/2012 ??? Tobacco abuse Past Surgical History: Procedure Laterality Date ??? BREAST REDUCTION SURGERY Bilateral 12/2011 ??? HYSTERECTOMY ??? PRO REDUCTION OF LARGE BREAST 12/09/2011 REDUCTION MAMMOPLASTY, EVA performed by DEMETRA SOMMERS at [facility] MAIN OR Medications: No current facility-administered medications on file prior to encounter. Current Outpatient Medications on File Prior to Encounter Medication Sig Dispense Refill ??? dihydroergotamine (MIGRANAL) 0.5 mg/pump act. (4 mg/mL) [place], Non-Aerosol One spray per nostril, while holding the opposite nostril closed. Wait 15 minutes then repeat (total of 4 sprays - 2 pernostril). 8 mL 5 ??? naproxen sodium (ANAPROX DS) 550 mg Tablet Take 1 tablet by mouth 2 times daily as needed (Mildto Moderate Headache). Can be taken with or without Vistaril 60 tablet 5 ??? OnabotulinumtoxinA (BOTOX) 200 unit Recon Soln Inject 155 Units as directed Every 12 weeks. Indications: Migraine Prevention ??? amitriptyline (ELAVIL) 100 mg Tablet Take 100 mg by mouth nightly. ??? Miscellaneous Medical Supply [facility] Bilateral wrist splints for CTS 2 each 0 ??? hydrOXYzine (VISTARIL) 25 mg Capsule Take 1 capsule by mouth 2 times daily as needed (for Mild to moderate headaches - can be taken with Naproxen sodium). 60 capsule 12 ??? promethazine (PHENERGAN) [address] 1-2 suppositories rectally every 6 hours as needed (Nausea with headache). 15 suppository 5 ??? gabapentin (NEURONTIN) 300 mg Capsule Take 300 mg by mouth 3 times daily. ??? tiZANidine (ZANAFLEX) 4 mg Tablet Take 4 mg by mouth daily. ??? estradiol (ESTRACE) 1 mg tablet Take 1 mg by mouth daily. ??? baclofen (LIORESAL) 10 mg tablet Take 10 mg by mouth 3 times daily. ??? QUEtiapine (SEROQUEL) 25 mg tablet Take 100 mg by mouth nightly. ??? multivitamin (THERAGRAN) tablet Take 1 tablet by mouth daily. ??? atenolol (TENORMIN) 50 mg tablet Take 50 mg by mouth daily. ??? cyclobenzaprine (FLEXERIL) 10 mg tablet Take 10 mg by mouth 3 times daily as needed. ??? pantoprazole (PROTONIX) 40 mg tablet Take 40 mg by mouth daily. ??? ketoconazole (NIZORAL) 2 % cream Apply topically as needed. Scheduled Meds: ??? lidocaine 1 patch Transdermal Daily ??? C4 PLANNER shift total and Settings verification Intravenous 2 Times Daily- C4 PLANNER Shift Total ??? amitriptyline 100 mg Oral Nightly Continuous Infusions: ??? HYDROmorphone ??? lactated Ringers PRN Meds:.diphenhydrAMINE, prochlorperazine, ondansetron, naloxone, HYDROmorphone OR HYDROmorphone OR HYDROmorphone Allergies: Allergies Allergen Reactions ??? Allergenic Extracts Pollen ??? Tramadol Low potassium ??? Zoloft [Sertraline] Nausea And Vomiting Family Hx: Family History Problem Relation Age of Onset ??? Alcohol Use Disorder Sister ??? Cerebrovascular Accident Sister ??? Migraines Sister ??? Alcohol Use Disorder Brother ??? Migraines Sister ??? Breast Cancer Maternal Aunt ??? Arthritis Neg Hx ??? Asthma Neg Hx ??? Cancer Neg Hx ??? Heart Disease Neg Hx ??? Substance Use Disorder Neg Hx Social Hx: Social History Socioeconomic History ??? Marital status: Spouse name: Prieto ??? Number of children: 2 ??? Years of education: Not on file ??? Highest education level: Not on file Occupational History ??? Occupation: unemployed Tobacco Use ??? Smoking status: Every Day Packs/day: 0.25 Years: 35.00 Pack years: 8.75 Types: Cigarettes ??? Smokeless tobacco: Never Substance and Sexual Activity ??? Alcohol use: No Comment: denies h/o ETOH abuse ??? Drug use: Yes Types: Marijuana Comment: marijuana use (not medical marijuana), denies h/o drug abuse ??? Sexual activity: Yes Other Topics Concern ??? Not on file Social History Narrative ??? Not on file Social Determinants of Health Financial Resource Strain: Not on file Food Insecurity: Not on file Transportation Needs: Not on file Physical Activity: Not on file Housing Stability: Not on file Vitals: Vitals: 08/01/22 2345 08/02/22 0400 08/02/22 0430 08/02/22 0530 BP: 162/82 158/88 Pulse: Resp: Temp: TempSrc: SpO2: 94% 92% 92% 90% Weight: Height: Physical Exam: -Gen: Middle aged woman, lying in ED stretcher, in obvious discomfort from back pain/moving around trying to get into a comfortable position -HEENT: ATNC. No perimastoid or periorbital bruising. No rhinorrhea or otorrhea. -CV: HDS per monitor -Resp: Breathing non-labored on RA. -Neuro: Mental Status/Cognitive: Awake, alert, oriented x4 Speech: Fluent, appropriate. Naming and repetition intact. Cranial Nerves: PERRL CN II - Visual acuity grossly intact CN III, IV, - EOMI CN V - Sensation intact in V1,2 and 3 distributions CN VII - No facial asymmetry/droop CN VIII - Intact hearing bilaterally to finger rub CN IX, X - Palate and uvula midline CN XI - Trapezius 5/5 bilat CN XII - Tongue midline Tone: Normal Power: No pronator drift Segment Muscle Action Right Left C5 Deltoid Shoulder Abduction 5 5 C6 Biceps Elbow flexion 5 5 C6 Extensor carpi radialis Wrist extension 5 5 C7 Triceps Elbow extension 5 5 C8 Finger flexors Grasp 5 5 T1 Interossei Finger abduction 5 5 L2 Iliopsoas Hip flexion 5 5 L3 Quadriceps Knee extension 5 5 L4 Tibialis anterior Dorsiflexion 5 5 L5 Extensor hallucis Great toe extension 5 5 S1 Gastrocnemius Plantar flexion 5 5 Reflexes: No Yates No clonus Reflex Right Left Biceps 2+ 2+ Triceps 2+ 2+ BR 2+ 2+ Patellar 2+ 1+ Ankle jerk 1+ 1+ Rectal exam / Ext. Anal Sphincter: Passive Tone - Intact Active squeeze - Strong Gait: Not assessed Sensation in the extremities: Diminished sensation from ~T8 down Cerebellar exam: No dysmetria in BUE Labs: Recent Labs 08/01/22 2215 WBC 12.6* HGB 13.7 PLATELET 286 Recent Labs 08/01/22 2215 NA 136 K 4.1 CL 101 CO2 23 BUN 13 CREATININE 0.78 No results for input(s): PT, INR in the last 72 hours. Imaging: Results for orders placed or performed during the hospital encounter of 08/01/[address] Read [address] Chest Abdomen Pelvis (Exam End: 08/01/2022 10:31 PM) Impression 1. 16 x 13.4 cm predominantly cystic lower abdominal mass with peripheral mural nodularity. 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 Regions of mural nodularity are suspicious for malignancy. No evidence of rupture/pseudomyxoma. 2. Sub-6 mm left lower lobe pulmonary nodules are suspected to represent intrapulmonary lymph nodes. Consider follow-up noncontrast chest CT in 6 months. 3. Hepatic steatosis. 4. Absent left kidney. I have personally reviewed the image(s) and the resident's interpretation and agree with the findings, Angel Baker DO at 08/02/2022 8:41 AM Thank you for letting us participate in the care of this patient. If you are a health care provider and have any questions regarding this report, please contact the number below. For patients who have questions please contact the health customer care professional that requested your imaging first. Electronically signed by: Angel Baker DO, [facility] ([phone]), at 08/02/2022 8:41 AM Request For 2nd Read CT Spine (Exam End: 08/01/2022 10:30 PM) Impression Overall mild degenerative changes. Left paracentral disc herniation at L5-S1 may impinge upon the traversing left S1 nerve root. Consider lumbar spine MRI for further evaluation. Partially imaged large cystic structure in the pelvis. Unexpected finding. Please see CT abdomen/pelvis report for details and full evaluation. Thank you for letting us participate in the care of this patient. If you are a health care provider and have any questions regarding this report, please contact the number below. For patients who have questions please contact the health customer care professional that requested your imaging first. Electronically signed by: Angel Rodriguez, [facility] ([phone]), at 08/02/2022 8:25 AM Request for 2nd read Ultrasound Study (Exam End: 08/01/2022 10:29 PM) Impression Large cystic lesion with mural nodularity in the RIGHT adnexa highly suspicious for malignancy Thank you for letting us participate in the care of this patient. If you are a health care provider and have any questions regarding this report, please contact the number below. For patients who have questions please contact the health customer care professional that requested your imaging first. Electronically signed by: Sandra Henderson MD, [facility] ([phone]), at 08/02/2022 10:18 AM Assessment: This is a 61 y.o. RIGHT-handed female not on antiplatelet/anticoagulants with a PMH of tobacco abuse, HTN, chronic neck pain who presented to [facility] [place] with c/o progressive back pain x3 weeks with lower extremity numbness found to have large adnexal mass as well as left paracentral disc herniation at L5/S1-- the latter for which Neurosurgery is consulted. Exam notable for diminished sensation ~T8 down without weakness, hyperreflexia, Yates, or clonus and rectal tone is intact. However the bilateral lower extremity paresthesias and frequent falls also raise concern for thoracic myelopathy/lesion. Thus, should add an MRI Thoracic Spine to assess forlesion given her sensory level. It is possible the back pain could be referred from her adnexal mass but agree with obtaining MRI Lumbar Spine to assess degree of disc herniation. Plan: -Agree with MRI lumbar spine wwo contrast -Also obtain MRI thoracic spine wwo contrast Today's plan of care was discussed with Dr. Duenas. Amada Booker MD 08/02/2022 at 2:03 PM * Consult Note - Josias Castellano MD - 08/02/2022 8:46 AM EST Neurology Inpatient Consult Note - 08/02/2022 Admit date: 08/01/2022 Attending: Antonio Rojas MD ID: Katheryn Carranza is a 61 y.o. female with PMHx of ARCHANA, htn, presenting in t/s/o worsening abdominal and radicular pain in t/s/o CT c/f L disc herniation; neurology consulted for the latter. HPI: Patient reports about 3 weeks ago, she noticed pain radiating from lower back down the side of her hip and the lateral side of her leg to the sole of her foot involving all the toes. This started on the L but progressed to involve both sides. It has since changed in character, now involving the medial side of her legs. Last , she started to experience worsening of the back and leg pain, as well as new abdominal pain. Now, she has pain in mid-abdomen, medial legs, and toes. The most severe pain she is experiencing is abdominal pain that radiates into the back. Between the legs, both are equally severe, 9/10 pain in severity. She also has paresthesias in all toes of both feet, medial legs, and in the middle of her groin- though she denies saddle anesthesia. This began evening. She is also weak in her BL LE. She reports this started around 3 weeks ago and has progressively worsened. She fell twice, on Tuesday night and Tuesday, which she attributes to her legs having given out. She was having trouble walking as well, and has been using a stand to help her walk since a couple days ago. About 3 weeks ago, she went to her PCP to f/u a knee issue. At this time, she had the back and leg pain that had not improved with Toradol, so PCP prescribed steroid course. She only took 1 day of steroids because she started taking Toradol again, and she was advised to not take them both together.The ER doctor on Tuesday advised her to resume steroids, so she resumed them on Tuesday and has taken3 days worth as of today. She has taken 60 mg qd for the past 3 days. Steroids have offered no relief. She denies any incontinence. She is able to feel when she is urinating or having a bowel movement. Since Tuesday she feels like she has to urinate 'all the time d/t pressure' which I suspect could be r/t her ovarian issues. She was previously using stool softeners for about a month but is no longer using them, and says this precedes her back issues. She was constipated which is why she started, but she is no longer constipated as she figured out yogurt helps so she stopped the stool softener. She denies any heavy lifting or exertion prior to this. Back trauma: About a month ago, she trippedon her dog and landed on her R knee and back. A couple days later, she slipped on snow and fell directly on back. She says dilaudid is the only thing so far that has helped her back and leg pain. She reports laying on her L does worsen her pain. Review of Systems: Negative except as documented in the HPI. Hospital Medications: Current Facility-Administered Medications Medication Dose Route Frequency Provider Last Rate Last Admin ??? lidocaine (Lidoderm) 5% patch 1 patch 1 patch Transdermal Daily Nai Wright MD 1 patch at 08/02/22 0332 ??? amitriptyline (Elavil) tablet 100 mg 100 mg Oral Nightly Bubba Schroeder MD ??? HYDROmorphone (Dilaudid) (0.5 mg/0.5 mL) injection syringe 0.2 mg 0.2 mg Intravenous Q2H PRN Oma Gilman PA Or ??? HYDROmorphone (Dilaudid) (0.5 mg/0.5 mL) injection syringe 0.4 mg 0.4 mg Intravenous Q2H PRN Oma Gilman PA Or ??? HYDROmorphone (Dilaudid) (1 mg/mL) injection syringe 0.6 mg 0.6 mg Intravenous Q2H PRN Oma Gilman PA Current Outpatient Medications Medication Sig Dispense Refill ??? dihydroergotamine (MIGRANAL) 0.5 mg/pump act. (4 mg/mL) [place], Non-Aerosol One spray per nostril, while holding the opposite nostril closed. Wait 15 minutes then repeat (total of 4 sprays - 2 pernostril). 8 mL 5 ??? naproxen sodium (ANAPROX DS) 550 mg Tablet Take 1 tablet by mouth 2 times daily as needed (Mildto Moderate Headache). Can be taken with or without Vistaril 60 tablet 5 ??? OnabotulinumtoxinA (BOTOX) 200 unit Recon Soln Inject 155 Units as directed Every 12 weeks. Indications: Migraine Prevention ??? amitriptyline (ELAVIL) 100 mg Tablet Take 100 mg by mouth nightly. ??? Miscellaneous Medical Supply [facility] [place] Bilateral wrist splints for CTS 2 each 0 ??? hydrOXYzine (VISTARIL) 25 mg Capsule Take 1 capsule by mouth 2 times daily as needed (for Mild to moderate headaches - can be taken with Naproxen sodium). 60 capsule 12 ??? promethazine (PHENERGAN) [address] 1-2 suppositories rectally every 6 hours as needed (Nausea with headache). 15 suppository 5 ??? gabapentin (NEURONTIN) 300 mg Capsule Take 300 mg by mouth 3 times daily. ??? tiZANidine (ZANAFLEX) 4 mg Tablet Take 4 mg by mouth daily. ??? estradiol (ESTRACE) 1 mg tablet Take 1 mg by mouth daily. ??? baclofen (LIORESAL) 10 mg tablet Take 10 mg by mouth 3 times daily. ??? QUEtiapine (SEROQUEL) 25 mg tablet Take 100 mg by mouth nightly. ??? multivitamin (THERAGRAN) tablet Take 1 tablet by mouth daily. ??? atenolol (TENORMIN) 50 mg tablet Take 50 mg by mouth daily. ??? cyclobenzaprine (FLEXERIL) 10 mg tablet Take 10 mg by mouth 3 times daily as needed. ??? pantoprazole (PROTONIX) 40 mg tablet Take 40 mg by mouth daily. ??? ketoconazole (NIZORAL) 2 % cream Apply topically as needed. Home Medications: No current facility-administered medications on file prior to encounter. Current Outpatient Medications on File Prior to Encounter Medication Sig Dispense Refill ??? dihydroergotamine (MIGRANAL) 0.5 mg/pump act. (4 mg/mL) [place], Non-Aerosol One spray per nostril, while holding the opposite nostril closed. Wait 15 minutes then repeat (total of 4 sprays - 2 pernostril). 8 mL 5 ??? naproxen sodium (ANAPROX DS) 550 mg Tablet Take 1 tablet by mouth 2 times daily as needed (Mildto Moderate Headache). Can be taken with or without Vistaril 60 tablet 5 ??? OnabotulinumtoxinA (BOTOX) 200 unit Recon Soln Inject 155 Units as directed Every 12 weeks. Indications: Migraine Prevention ??? amitriptyline (ELAVIL) 100 mg Tablet Take 100 mg by mouth nightly. ??? Miscellaneous Medical Supply [facility] [place] Bilateral wrist splints for CTS 2 each 0 ??? hydrOXYzine (VISTARIL) 25 mg Capsule Take 1 capsule by mouth 2 times daily as needed (for Mild to moderate headaches - can be taken with Naproxen sodium). 60 capsule 12 ??? promethazine (PHENERGAN) [address] 1-2 suppositories rectally every 6 hours as needed (Nausea with headache). 15 suppository 5 ??? gabapentin (NEURONTIN) 300 mg Capsule Take 300 mg by mouth 3 times daily. ??? tiZANidine (ZANAFLEX) 4 mg Tablet Take 4 mg by mouth daily. ??? estradiol (ESTRACE) 1 mg tablet Take 1 mg by mouth daily. ??? baclofen (LIORESAL) 10 mg tablet Take 10 mg by mouth 3 times daily. ??? QUEtiapine (SEROQUEL) 25 mg tablet Take 100 mg by mouth nightly. ??? multivitamin (THERAGRAN) tablet Take 1 tablet by mouth daily. ??? atenolol (TENORMIN) 50 mg tablet Take 50 mg by mouth daily. ??? cyclobenzaprine (FLEXERIL) 10 mg tablet Take 10 mg by mouth 3 times daily as needed. ??? pantoprazole (PROTONIX) 40 mg tablet Take 40 mg by mouth daily. ??? ketoconazole (NIZORAL) 2 % cream Apply topically as needed. Past Medical History: Past Medical History: Diagnosis Date ??? ADD (attention deficit disorder) ??? Depression ??? ARCHANA (generalized anxiety disorder) ??? Headache ??? Hypertension ??? Neck pain on left side 07/04/2012 ??? Tobacco abuse Past Surgical History: Procedure Laterality Date ??? BREAST REDUCTION SURGERY Bilateral 12/2011 ??? HYSTERECTOMY ??? PRO REDUCTION OF LARGE BREAST 12/09/2011 REDUCTION MAMMOPLASTY, EVA performed by DEMETRA SOMMERS at [facility] OR Allergies: Allergies Allergen Reactions ??? Allergenic Extracts Pollen ??? Tramadol Low potassium ??? Zoloft [Sertraline] Nausea And Vomiting Family history: Family History Problem Relation Age of Onset ??? Alcohol Use Disorder Sister ??? Cerebrovascular Accident Sister ??? Migraines Sister ??? Alcohol Use Disorder Brother ??? Migraines Sister ??? Breast Cancer Maternal Aunt ??? Arthritis Neg Hx ??? Asthma Neg Hx ??? Cancer Neg Hx ??? Heart Disease Neg Hx ??? Substance Use Disorder Neg Hx Social history: Social History Tobacco Use ??? Smoking status: Every Day Packs/day: 0.25 Years: 35.00 Pack years: 8.75 Types: Cigarettes ??? Smokeless tobacco: Never Substance Use Topics ??? Alcohol use: No Comment: denies h/o ETOH abuse ??? Drug use: Yes Types: Marijuana Comment: marijuana use (not medical marijuana), denies h/o drug abuse Physical Exam: Vitals: Last value Range last 24 hrs Temperature Temp: 35.8 ??C (96.5 ??F) Temp: [35.8 ??C (96.5 ??F)] Heart Rate Heart Rate: 76 Heart Rate: [76] Blood Pressure BP: 158/88 BP: (155-194)/(82-93) Respiratory Rate Resp: 16 Resp: [16] SpO2 SpO2: 90 % SpO2: [90 %-98 %] I/O: 08/01 0701 - 08/02 0700 In: - Out: 600 [Urine:600] General: Appears stated age, appears in pain Neuro: MS: AO x 3 CN: CN II, III, IV, - PERRLA, EOMI without nystagmus, no ptosis CN V - Facial sensation intact/symmetric CN VII - No facial asymmetry CN VIII - Hearing intact to voice/finger rub CN IX, X - Symmetric palate elevation CN XI - SCM, trap strength symmetric CN XII - Tongue midline Motor: No focal atrophy, normal tone throughout Fine motor movements preserved, no bradykinesia Strength: Roots Muscles Action Right Left C5-6 Deltoid Shoulder abduction 5 5 C5-6 Brachialis / Biceps brachii Elbow flexion 5 5 C6-8 Triceps brachii Elbow extension 5 5 C7-T1 Flexor digitorum profundus Digit II-V flexion / kitchen work supervisor 5 5 L2-3 Iliopsoas Hip flexion 5 3 L3-4 Quadriceps femoris Knee extension 5 5 L4-5 Tibialis anterior Ankle dorsiflexion/inversion 5 5 L5-S2 Triceps surae Ankle plantarflexion 5 5 Hip flexion on L ltd. By pain (+) straight leg raise test on L Sensory: LT: diminished over legs compared to hands and amrs PP: diminished over medial surface of thigh compared to anterior, lateral, and posterior thigh, andcompared to shins and feet circumferentially. Diminished over BL LE circumferentially compared to BL UE, but symmetric between RLE and LLE Vibration: absent at knees and toes, present over L medial malleolus- overall patchy No sensory level is present over T-spine region or higher. Pronator drift absent JPS intact at BL toes Reflexes: Arc Right Left Comments Biceps tendon C5-C6 1+ 1+ Brachioradialis tendon C5-C6 1+ 1+ Triceps tendon C6-C7 1+ 1+ Finger flexor (Mellissa) C8-T1 absent absent Patellar ligament L3-L4 2+ 2+ Brisk Plantar (Babinski) L5-S1 equivocal positive Achilles tendon S1-S2 2+ 2+ Brisk 2 beats clonus R ankle, 0 beats L Coordination: FNF intact, no dysmetria or tremor noted Gait: Deferred Labs: Last 3 wbc, hgb, hct plt Recent Labs 08/01/222214 WBC 12.6* HGB 13.7 HCT 39.3 PLATELET 286 Last 3 Lytes Recent Labs 08/01/22 221 NA 136 K 4.1 CL 101 CO2 23 BUN 13 CREATININE 0.78 Last 3 LFTs Recent Labs 08/01/22 221 AST 13 ALT 23 ALKPHOS 84 BILITOT 0.2 BILIDIR 0.1 Last Ca, Mg, Phos Recent Labs 08/01/222214 CALCIUM 9.2 Diagnostic Tests and Imaging: Results for orders placed or performed during the hospital encounter of 08/01/[address] Spine (Exam End: 08/01/2022 10:30 PM) Impression Overall mild degenerative changes. Left paracentral disc herniation at L5-S1 may impinge upon the traversing left S1 nerve root. Consider lumbar spine MRI for further evaluation. Partially imaged large cystic structure in the pelvis. Unexpected finding. Please see CT abdomen/pelvis report for details and full evaluation. Thank you for letting us participate in the care of this patient. If you are a health care provider and have any questions regarding this report, please contact the number below. For patients who have questions please contact the health customer care professional that requested your imaging first. Electronically signed by: Angel Rodriguez [facility] ([phone]), at 08/02/2022 8:25 AM Assessment: Katheryn Carranza is a 61 y.o. female presenting in t/s/o worsening abdominal and radicular pain in t/s/o CT c/f L disc herniation; neurology consulted for the latter. The patient's pattern of sensory loss is interesting and not fully explained by a L herniated disk.In particular, her description of what started as back pain radiating down lateral aspects of her legs raises c/f sciatica. However, she reports the pain is now worst over the medial aspect, and on exam her medial thigh area is where her sensation is most decreased. This raises c/f femoral nerve involvement, though she does not have clear impairment of other femoral nerve function such as motor issues with knee extension (hip flexion weakness is largely pain-limited). Of note, patients with ovarian cysts can have referred pain in the anteromedial thigh [1]; this can sometimes though not always be due to femoral nerve compression, and represents one possible etiology of the particular sensory and pain distribution of this patient's Sx. The CT shows a possible herniated disc for which we agree with MRI L spine to further assess and characterize. Would also recommend consult to Spine to assess role of operative intervention given thepatient's pain and reported weakness (as with legs giving out while walking), and advise on the safety of gynecologic surgical positioning with respect to possible disc herniation. It remains possible that the patient has two coincident processes each contributing to different components of her overall clinical picture, and that sciatica d/t disc compression represents one of these etiologies. Otherwise, continue supportive care with aggressive pain control per primary care discretion and PT. Recommendations: - MRI L-spine - Spine consult - pain control per primary team - PT References: 1. Rashaad Lorenzo, Differential Diagnosis of Endometriosis in a Young Adult Woman With Nonspecific Low Back Pain, Physical Therapy, Volume 87, Issue 6, 2006, Pages 801-816, [email or web address] Patient seen with Dr. Pinky Castellano MD Neurology, PGY-3 Consult Neurology Service #[id number] 08/02/2022 Associated attestation - Bhargavi Vance MD - 08/02/2022 9:03 PM EST Neurology Staff Note I have reviewed the resident's history during the visit and I agree with the details as written. Myphysical examination confirms the resident's findings. The assessment and plan were formulated in discussion with me at the time of the visit and I agree with them as documented. 61 yo woman here with pain and sensory changes in her legs in the setting of large L ovarian cyst. On exam she has intact strength in her legs with diminished light touch throughout legs and decreased pinprick on her inner calf and thigh bilaterally. No sensory level. Reflexes are brisk in her legswith upgoing toe on the L and clonus at the right ankle. MRI T/L spine without cord compression or significant stenosis. A/P: 61 yo woman with large ovarian mass, who has also had bilateral leg pain,found to have sensory changes on exam. Imaging is reassuring for any cord or nerve root compression. The distribution of sensory loss raises the possibility of femoral nerve compression which has been reported in patients with ovarian cysts. See recommendations below. We will follow. * ED Triage - Jenny Ferreira RN - 08/01/2022 8:19 PM EST Pt bib daughter for worsening abd pain/back pain and pt fell yesterday. [facility]. Pt has left ovarian mass found on u/s. Pt states her legs are numb and tingly for last 2 days. Pt restless in wc, appears in discomfort. HPI (Adult) Stated Reason for Visit: I have sciatica and back pain, so I went to [facility] tuesday and they said I have a mass on my ovary. (left) History Obtained From: patient Precipitating Event(s): unknown Onset of Symptoms: worsening Duration (Weeks): 3 Associated Signs/Symptoms: abdominal pain documented in this encounter Plan of Treatment Upcoming Encounters Date Type Department Care Team (Late st Contact Info) Description 03/07/2024 10:00 AM EDT Appointment XRay at [address] [place] [address] Tien Zurita MD [facility] [place] [address] 03/07/2024 10:40 AM EDT Office Visit Neurosurgery at [facility] [place] [phone] Angel Hankins PA [facility] [place] [address] documented as of this encounter Procedures Procedure Name Priority Date/Time Associated Diagnosis Comments HC MAGNESIUM, SERUM Routine 08/07/2022 5 :16 AM EST BASIC METABOLIC PANEL Routine 08/07/2022 5:16 AM EST LAVENDER TUBE HOLD Routine 08/06/2022 5: 18 AM EST HC MAGNESIUM, SERUM Routine 08/06/2022 5 :18 AM EST BASIC METABOLIC PANEL Routine 08/06/2022 5:18 AM EST Upper GI Endoscopy, Diagnostic (66329) 08/05/2022 2:19 PM EST GOO UPPER GI ENDOSCOPY Routine 08/05/2022 2: 01 PM EST URINE HOLD STAT 08/05/2022 10:47 AM EST URINALYSIS WITH REFLEX CULTURE STAT 08/05/2022 10:47 AM EST XR ABDOMEN 1 VIEW STAT 08/05/2022 2:[address] ABDOMEN AND PELVIS WO CONTRAST STAT 08/05/2022 12:10 AM EST CMP W/FASTING GLUCOSE STAT 08/04/2022 11:24 PM EST HEMOGRAM STAT 08/04/2022 11:24 PM EST DIFFERENTIAL, AUTOMATED STAT 08/04/2022 11:24 PM EST HC CBC,PLT & AUTO DIFF STAT 11:24 PM EST LIPASE STAT 08/04/2022 11:24 PM EST HEMOGLOBIN A1C STAT 08/04/2022 11:24 PM EST AMYLASE STAT 08/04/2022 11:24 PM EST SALPINGO-OOPHORECTOMY, UNILATERAL OR EVA Routine 08/02/2022 8:09 PM EST SURGICAL PATHOLOGY REPORT Routine 08/02/2022 7:39 PM EST SPECIMEN TO PATHOLOGY Routine 08/02/2022 7:39 PM EST NON-SENIOR DIRECTOR OF [employer]UTIONS FINAL REPORT Routine 08/02/2022 7:07 PM EST CYTOPATHOLOGY NON-GYNECOLOGICAL Routine 08/02/2022 7:07 PM EST Removal Of Ovary/Tube(S) (99265) 08/02/2022 5:52 PM EST left adnexal mass Lap, Diagnostic Abdomen ([id number]) 08/02/2022 5:52 PM EST left adnexal mass MRI LUMBAR SPINE WITH/WO CONTRAST STAT 08/02/2022 4:14 PM EST MRI THORACIC SPINE WITH/WO CONTRAST STAT 08/02/2022 4:14 PM EST LAPAROSCOPY, DIAGNOSTIC Routine 08/02/2022 10:45 AM EST REQUEST FOR 2ND READ CT CHEST ABDOMEN PELVIS STAT 08/01/2022 10:31 PM EST REQUEST FOR 2ND READ CT SPINE STAT 08/01/2022 10:30 PM EST REQUEST FOR 2ND READ ULTRASOUND STUDY STAT 08/01/2022 10:29 PM EST BLOOD GAS VENOUS POC Routine 08/01/2022 10:23 PM EST TYPE AND SCREEN VALIDITY STAT 08/01/2022 10:15 PM EST ABORH RECHECK STATUS STAT 08/01/2022 10:15 PM EST HEMOGRAM STAT 08/01/2022 10:15 PM EST DIFFERENTIAL, AUTOMATED STAT 08/01/2022 10:15 PM EST GOLD TUBE HOLD STAT 08/01/2022 10:15 PM EST CARBOHYDRATE ANTIGEN 19-9 STAT 08/01/2022 10:15 PM EST ABO/RH TYPING STAT 08/01/2022 10:15 PM EST HC CBC,PLT & AUTO DIFF STAT 10:15 PM EST ANTIBODY SCREEN STAT 08/01/2022 10:15 PM EST TYPE AND SCREEN ([facility] [place]/CGP/COMPA) STAT 08/01/2022 10:15 PM EST CANCER ANTIGEN 125 STAT 08/01/2022 10 :15 PM EST HC LIPASE STAT 08/01/2022 10:15 PM EST CEA STAT 08/01/2022 10:15 PM EST HEPATIC FUNCTION PANEL STAT 10:15 PM EST BASIC METABOLIC PANEL STAT 08/01/2022 10:15 PM EST URINALYSIS WITH REFLEX CULTURE STAT 08/01/2022 10:10 PM EST FILM LIBRARY STORAGE ONLY ULTRASOUND STUDY STAT 07/30/2022 12:00 AM EST FILM LIBRARY STORAGE ONLY CT SPINE STAT 07/29/2022 12:05 AM EST FILM LIBRARY STORAGE ONLY CT CHEST ABDOMEN PELVIS STAT 07/29/2022 12:00 AM EST documented in this encounter Results * Magnesium (08/07/2022 5:16 AM EST) Magnesium 0.89 0.69 - 1.07 mmol/L [facility] Blood 08/07/2022 5:16 AM EST 08/07/2022 5:27 AM EST Narrative Resulting Agency Comment Spec In Lab Antonio Rojas MD CHEMISTRY ORDERABLES [facility] [place] [address] * (ABNORMAL) Basic Metabolic Panel (non-fasting) (08/07/2022 5:16 AM EST) Glucose 122 65 - 199 mg/dL [facility] Comment:Diabetes: >=200 mg/d L plus symptoms Blood Urea Nitrogen 9 8 - 18 mg/dL [facility] Creatinine 0.68(L) 0.70 - 1.20 mg/dL [facility] Sodium 137 135 - 145 mmol/L [facility] Potassium 3.8 3.5 - 5.0 mmol/L [facility] Comment: Please note: ??Patients with WBC >100,000 may have falsely elevated Potassium levels. ??For accurate Potassium quantification in these patients send serum separator tube (gold top) for subsequent determinations. ??Contact the Clinical Chemistry Laboratory if there are any questions. Chloride 101 98 - 107 mmol/L [facility] Carbon Dioxide 24 22 - 31 mmol/L [facility] Anion Gap 12 5 - 15 mmol/L [facility] Calcium 8.6 8.5 - 10.5 mg/dL [facility] Est Glomerular Filtration Rate 99 >=60 mL/min/1. 73 m?? [facility] Comment: This patient's estimated GFR was [...] and symptoms in addition to eGFR. Blood 08/07/2022 5:16 AM EST 08/07/2022 5:27 AM EST Narrative Resulting Agency Comment Spec In Lab Antonio Rojas MD CHEMISTRY ORDERABLES Performing Organization Address City/[facility]/ZIP Co de Phone Number [facility] [place] [address] * Lavender Tube HOLD (08/06/2022 5:18 AM EST) Lavender Hold Sample in lab. [facility] Blood Venous Draw / Unknown 08/06/2022 5:18 AM EST 08/06/2022 5:33 AM EST Oma MARSHALL HEMATOLOGY ORDERABLE S Performing Organization Address City/[facility]/ZIP Co de Phone Number [facility] [place] [address] * Magnesium (08/06/2022 5:18 AM EST) Magnesium 0.69 0.69 - 1.07 mmol/L [facility] Blood 08/06/2022 5:18 AM EST 08/06/2022 5:33 AM EST Narrative Resulting Agency Comment Spec In Lab Antonio Rojas MD CHEMISTRY ORDERABLES Performing Organization Address City/[facility]/ZIP Co de Phone Number [facility] [place] [address] * (ABNORMAL) Basic Metabolic Panel (non-fasting) (08/06/2022 5:18 AM EST) Glucose 106 65 - 199 mg/dL [facility] Comment:Diabetes: >=200 mg/d L plus symptoms Blood Urea Nitrogen 10 8 - 18 mg/dL [facility] Creatinine 0.65(L) 0.70 - 1.20 mg/dL [facility] Sodium 139 135 - 145 mmol/L [facility] Potassium 3.3(L) 3.5 - 5.0 mmol/L [facility] Comment: Please note: ??Patients with WBC >100,000 may have falsely elevated Potassium levels. ??For accurate Potassium quantification in these patients send serum separator tube (gold top) for subsequent determinations. ??Contact the Clinical Chemistry Laboratory if there are any questions. Chloride 99 98 - 107 mmol/L [facility] Carbon Dioxide 26 22 - 31 mmol/L [facility] Anion Gap 14 5 - 15 mmol/L [facility] Calcium 8.9 8.5 - 10.5 mg/dL [facility] Est Glomerular Filtration Rate 100 >=60 mL/min/1. 73 m?? [facility] Comment: This patient's estimated GFR was [...] and symptoms in addition to eGFR. Blood 08/06/2022 5:18 AM EST 08/06/2022 5:33 AM EST Narrative Resulting Agency Comment Spec In Lab Antonio Rojas MD CHEMISTRY ORDERABLES [facility] [place] [address] * UPPER GI ENDOSCOPY (08/05/2022 2:01 PM EST) UPPER GI ENDOSCOPY [facility] Endoscopy Procedure Date: 08/05/2022 2:01 PM ? Patient Name: Katheryn Carranza ? Date of : 1960 ? Age: 61 ? Order #: [id number] ? Instrument Name: [id number] ? Procedure: ? Upper GI endoscopy Indications: ? Vomiting Providers: ? Donnie D. Obrien, [employer] ? OLIVIA Caldwell, Louie Dixon Referring : ? Medicines: ? Monitored Anesthesia Care Complications: ? No immediate complications. Procedure: ? Pre-Anesthesia Assessment: ? - Prior to the procedure, a History ? and Physical was performed, and ? patient medications and allergies ? were reviewed. The patient is ? competent. The risks and benefits ? of the procedure and the sedation ? options and risks were discussed ? with the patient. All questions ? were answered and informed consent ? was obtained. Patient ? identification and proposed ? procedure were verified by the ? physician and the nurse in the ? endoscopy suite. Mental Status ? Examination: alert and oriented. ? Airway Examination: normal ? oropharyngeal airway and neck ? mobility. Respiratory Examination: ? clear to auscultation. CV ? Examination: normal. Prophylactic ? Antibiotics: The patient does not ? require prophylactic antibiotics. ? Prior Anticoagulants: The patient ? has taken no anticoagulant or ? antiplatelet agents. ASA Grade ? Assessment: III - A patient with ? severe systemic disease. After ? reviewing the risks and benefits, ? the patient was deemed in ? satisfactory condition to undergo ? the procedure. The anesthesia plan ? was to use monitored anesthesia ? care (MAC). Immediately prior to ? administration of medications, the ? patient was re-assessed for ? adequacy to receive sedatives. The ? heart rate, respiratory rate, ? oxygen saturations, blood pressure, ? adequacy of pulmonary ventilation, ? and response to care were monitored ? throughout the procedure. The ? physical status of the patient was ? re-assessed after the procedure. ? The procedure, indications, ? benefits, risks and alternatives ? were explained to the patient. ? Specifically discussed were ? potential complications including, ? but not limited to, bleeding, ? perforation, infection, missing a ? cancer, and adverse medication ? reactions. The Endoscope was ? introduced through the mouth, and ? advanced to the second part of ? duodenum The upper GI endoscopy was ? accomplished without difficulty. ? The patient tolerated the procedure ? well. ? Findings: ? The examined esophagus was normal. ? A few diminutive erosions with no bleeding and no ? stigmata of recent bleeding were found in the gastric ? antrum. NG tube seen entering into stomach. ? The examined duodenum was normal. ? Moderate Sedation: ? Not applicable - See Anesthesia documentation Impression: ?- No structural findings to explain ? vomiting. There are small ? incidental gastric erosions likely ? related to stress gastropathy and ? slight NG trauma which is common ? and not unexpected. Consider ileus ? on the differential. ? - No specimens collected. Recommendation: ?- Return patient to hospital [facility] ? for ongoing care. ? - GI will sign off for now. Please ? re-contact as needed. ? Attending Participation: ? I was present and participated during the entire ? procedure, including non-wood portions. ? Donnie Obrien, 08/05/2022 3:18:18 PM Number of Addenda: 0 Note Initiated On: 08/05/2022 2:01 PM [employer]ATION 08/05/2022 2:01 PM EST Unknown GENERAL SURGICAL ORD ERABLES Performing Organization Address City/[facility] Co de Phone Number [employer] * Urine Hold (08/05/2022 10:47 AM EST) Hold, Urine Sample in lab. [facility] Urine Urine / Unknown 08/05/2022 1 0:47 AM EST 08/05/2022 10:58 AM EST Angely Scruggs MD URINE ORDERABLES Performing Organization Address [facility] Co de Phone Number [facility] [place] [address] * Urinalysis with reflex Culture (08/05/2022 10:47 AM EST) Glucose, Urine Dipstick Negative Negative mg/dL [facility] Protein, Urine Dipstick Negative Negative mg/dL [facility] Bilirubin, Urine Dipstick Negative Negative mg/dL [facility] Comment: Clinical correlation required for positive Urine Bilirubin results as false positive may occur with some drugs and drug related products. If a false positive is suspected a serum total bilirubin should be considered if clinically indicated. Urobilinogen, Urine Dipstick Normal Normal mg/dL [facility] pH, Urn (dipstick) 7.5 5.0 - 8.0 [facility] Blood, Urine Dipstick Negative Negative mg/dL [facility] Ketone, Urine Dipstick Negative Negative mg/dL [facility] Nitrite, Urine Dipstick Negative Negative [facility] Leukocytes, Urine Dipstick Negative Negative mcL [facility] Appearance, Urine Dipstick Clear Clear [facility] Specific [place] Urine Automated 1.011 1.005 - 1.030 [facility] Color, Urine Dipstick Yellow Yellow [facility] Reflex to Culture No [facility] Clean Catch Urine 08/05/2022 10:47 AM EST 08/05/2022 10:58 AM EST Narrative Resulting Agency Comment Spec In Lab Antonio Rojas MD URINE ORDERABLES Performing Organization Address [facility] Co de Phone Number [facility] [place] [place] [address] * XR Abdomen 1 view (Generic) (08/05/2022 2:56 AM EST) Anatomical Region Laterality Modality Abdomen N/A Digital Radiogra phy Impressions 08/05/2022 3:21 AM EST FINDINGS/IMPRESSION: Esophagogastric tube tip projects over the stomach, although the side-port projects about the expected region of the GE junction (consider advancing). Preliminary report signed by: Ama Valladares at 08/05/2022 3:01 AM I have personally reviewed the image(s) and the resident's interpretation and agree with the findings, Reymundo Fischer MD at 08/05/2022 3:21 AM Thank you for letting us participate in the care of this patient. ??If you are a health care provider and have any questions regarding this report, please contact the number below. ??For patients who have questions please contact the health customer care professional that requested your imaging first. ? Electronically signed by: Reymundo Fischer MD, [facility] ([phone]), at 08/05/2022 3:21 AM Narrative 08/05/2022 3:21 AM EST EXAMINATION: XR ABDOMEN 1 VIEW (GENERIC) CLINICAL HISTORY: Verify NG Tube Placement TECHNIQUE: Targeted single supine portable frontal radiograph centered over the upper abdomen dedicated for evaluation of transesophageal enteric tube positioning, and otherwise nondiagnostic. COMPARISON: None Procedure Note Reymundo Fischer MD - 08/05/2022 EXAMINATION: XR ABDOMEN 1 VIEW (GENERIC) CLINICAL HISTORY: Verify NG Tube Placement TECHNIQUE: Targeted single supine portable frontal radiograph centeredover the upper abdomen dedicated for evaluation of transesophageal enteric tube positioning, and otherwise nondiagnostic. COMPARISON: None IMPRESSION FINDINGS/IMPRESSION: Esophagogastric tube tip projects over the stomach, although theside-port projects about the expected region of the GE junction (consideradvancing). Preliminary report signed by: Ama Valladares at 08/05/2022 3:01AM I have personally reviewed the image(s) and the resident's interpretationand agree with the findings, Reymundo Fischer MD at 08/05/2022 3:21 AM Thank you for letting us participate in the care of this patient. If youare a health care provider and have any questions regarding this report,please contact the number below. For patients who have questions please contactthe health customer care professional that requested your imaging first. Electronically signed by: Reymundo Fischer MD, [facility]([phone]), at 08/05/2022 3:21 AM Antonio Rojas MD IMG DX ORDERABLES * CT Abdomen & Pelvis wo Contrast (08/05/2022 12:10 AM EST) Anatomical Region Laterality Modality Abdomen, Pelvis Computed Tomogra phy Impressions 08/05/2022 12:23 AM EST Findings suggesting pyelonephritis of the lone RIGHT kidney. Moderate to severe gastric distention. Mild atelectasis at the included lung bases. Moderate pancolonic stool burden Thank you for letting us participate in the care of this patient. ??If you are a health care provider and have any questions regarding this report, please contact the number below. ??For patients who have questions please contact the health customer care professional that requested your imaging first. ? Electronically signed by: Reymundo Fischer MD, [facility] ([phone]), at 08/05/2022 12:23 AM Narrative 08/05/2022 12:23 AM EST EXAMINATION: CT ABDOMEN AND PELVIS WO CONTRAST CLINICAL HISTORY: Abdominal pain, acute, nonlocalized; Abdominal pain, post-op POD#2 from ex lap with LSO. acute worsening abdominal pain, TECHNIQUE: Noncontrast CT abdomen and pelvis. COMMENTS: Absence of intravenous contrast renders suboptimal assessment of solid organs including the kidneys, as well as blood vessels and vascular structures. Absence of enteric contrast renders suboptimal assessment of bowel wall/lumen and surrounding soft tissue structures. COMPARISON: CT abdomen/pelvis 07/29/2022 FINDINGS: Included Lower Chest: Dependent and linear atelectasis of the included lung bases. Liver: Unremarkable. Gallbladder: Unremarkable. Spleen: Unremarkable. Pancreas: Moderately atrophic. Adrenal Glands: Unremarkable. RIGHT Kidney: Perinephric stranding LEFT Kidney: Absent. Urinary Bladder: Collapsed about a transurethral catheter (precluding assessment) and contains air. GI: Moderate to severe gastric distention with fluid/heterogeneous material and air. Mildly distended proximal duodenum with air and fluid. Otherwise nondilated bowel. Appendix appears unremarkable. Moderate pancolonic stool burden, cecum to rectum. Mesentery/Peritoneum: Interval resection of pelvic mass with mild regional stranding. Vasculature: Unremarkable. Osseous Structures: Redemonstrated mild compression deformity of T12 superior endplate. Procedure Note Reymundo Fischer MD - 08/05/2022 EXAMINATION: CT ABDOMEN AND PELVIS WO CONTRAST CLINICAL HISTORY: Abdominal pain, acute, nonlocalized; Abdominal pain,post-op POD#2 from ex lap with LSO. acute worsening abdominal pain, TECHNIQUE: Noncontrast CT abdomen and pelvis. COMMENTS: Absence of intravenous contrast renders suboptimal assessment ofsolid organs including the kidneys, as well as blood vessels and vascularstructures. Absence of enteric contrast renders suboptimal assessment of bowelwall/lumen and surrounding soft tissue structures. COMPARISON: CT abdomen/pelvis 07/29/2022 FINDINGS: Included Lower Chest: Dependent and linear atelectasis of the includedlung bases. Liver: Unremarkable. Gallbladder: Unremarkable. Spleen: Unremarkable. Pancreas: Moderately atrophic. Adrenal Glands: Unremarkable. RIGHT Kidney: Perinephric stranding LEFT Kidney: Absent. Urinary Bladder: Collapsed about a transurethral catheter (precluding assessment) and contains air. GI: Moderate to severe gastric distention with fluid/heterogeneousmaterial and air. Mildly distended proximal duodenum with air and fluid. Otherwisenondilated bowel. Appendix appears unremarkable. Moderate pancolonic stool burden,cecum to rectum. Mesentery/Peritoneum: Interval resection of pelvic mass with mildregional stranding. Vasculature: Unremarkable. Osseous Structures: Redemonstrated mild compression deformity of N20rdamaalq endplate. IMPRESSION Findings suggesting pyelonephritis of the lone RIGHT kidney. Moderate to severe gastric distention. Mild atelectasis at the included lung bases. Moderate pancolonic stool burden Thank you for letting us participate in the care of this patient. If youare a health care provider and have any questions regarding this report,please contact the number below. For patients who have questions please contactthe health customer care professional that requested your imaging first. Electronically signed by: Reymundo Fischer MD, [facility]([phone]), at 08/05/2022 12:23 AM Antonio Rojas MD IMG CT ORDERABLES * (ABNORMAL) Hemoglobin A1c (08/04/2022 11:24 PM EST) Hemoglobin A1c 6.2(H) 4.3 - 5.6 % [facility] Comment: Reference Range: 4.3 - 5.6% 5.7 - 6.4% - Increased Risk of Developing Diabetes Mellitus >= 6.5% - Consistent with diagnosis of Diabetes Mellitus In the absence of hyperglycemia (i.e. plasma glucose > 200 mg/dL) or classic symptoms of hyperglycemia a repeat measurement of HbA1c should be performed on a separate sample to confirm the diagnosis. Diagnosis and Classification of Diabetes Mellitus, Diabetes Care 2013; 36: Suppl. 1, V04-78 Estimated Average Glucose 130 mg/dL [facility] Comment: eAG equivalents for HbA1c percentages: HbA1c(%) ?eAG(mg/dL) 6.0 ?126 6.5 ?140 7.0 ?154 7.5 ?169 8.0 ?183 8.5 ?197 9.0 ?212 9.5 ?226 10.0 ? 240 Limitations: The eAG calculation has not been validated on women, individuals below 18 years old and above 70 years old, and individuals with hemoglobinopathies. Additional resources are available on the ADA website. Ridge MAHONEY, Cheryle J, Citlaly R, et al. ??Translating the A1C assay into estimated average glucose values. ??Diabetes Care 2008:31(8):3733-2904. Blood Venous Draw / Unknown 08/04/2022 11:24 PM EST 08/05/2022 9:39 AM EST Narrative Resulting Agency Comment Spec In Lab Oma MARSHALL CHEMISTRY ORDERABLES Performing Organization Address [facility] Co de Phone Number [facility] [place] [address] * (ABNORMAL) Amylase (08/04/2022 11:24 PM EST) Amylase 27(L) 28 - 100 unit/L [facility] Blood Venous Draw / Unknown 08/04/2022 11:24 PM EST 08/04/2022 11:30 PM EST Narrative Resulting Agency Comment Spec In Lab Angely Scruggs MD CHEMISTRY ORDERABLES Performing Organization Address [facility] Co de Phone Number [facility] [place] [address] * Lipase (08/04/2022 11:24 PM EST) Lipase 12 0 - 60 unit/L [facility] Blood Venous Draw / Unknown 08/04/2022 11:24 PM EST 08/04/2022 11:30 PM EST Narrative Resulting Agency Comment Spec In Lab Angely Scruggs [place] [address] * (ABNORMAL) Differential, Automated (08/04/2022 11:24 PM EST) Neutrophil % 68.0 % [facility] Neutrophil Absolute 6.86(H) 1.70 - 6.10 x10(3)/ L [facility] Lymph % 24.6 % [facility] Lymphocytes Abs 2.5 0.9 - 3.2 x10(3)/mc L [facility] Monocyte % 6.1 % [facility] Monocyte Abs 0.6 0.3 - 0.9 x10(3)/[facility] Eos % 0.3 % [facility] Eosinophils Abs 0.0 0.0 - 0.4 x10(3)/[facility] Basophil % 0.1 % [facility] Baso Absolute 0.0 0.0 - 0.1 x10(3)/ L [facility] Immature Gran % 0.90 % [facility] Comment: Immature granulocytes(IG's)percentage and absolute count will include metamyelocytes, myelocytes, and promyelocytes. Blood smears from CBCs yielding IG's will be scanned manually for concordance. If this scan disagrees with the automated IG or if promyelocytes are noted, a manual differential will be performed. Immature Gran Absolute 0.09(H) 0.00 - 0.04 x10(3)/ L [facility] Blood 08/04/2022 11:2 4 PM EST 08/04/2022 11:29 PM EST Narrative Resulting Agency Comment Spec In Lab Bubba Schroeder [place] [address] * (ABNORMAL) Hemogram (08/04/2022 11:24 PM EST) White Blood Cell 10.1(H) 4.0 - 9.5 x10(3)/[facility] Red Blood Cell 4.22 4.00 - 5.21 x10(6)/[facility] Hemoglobin 13.6 11.7 - 15.5 g/dL [facility] Hematocrit 39.1 35.7 - 45.8 % [facility] Mean Cell Volume 92.7 82.6 - 94.4 fL [facility] Mean Cell Hemoglobin 32.2(H) 27.1 - 32.0 pg [facility] Mean Cell Hemoglobin Concentration 34.8 31.7 - 35.0 g/dL [facility] Platelet 285 145 - 357 x10(3)/[facility] RDW Standard Deviation 41.6 37.0 - 46.0 fL [facility] RDW coefficient of variation 12.3 11.5 - 14.1 % [facility] Mean Platelet Volume 8.7 7.6 - 12.9 fL [facility] NRBC% auto 0.0 % [facility] NRBC Absolute 0.000 0.000 - 0.000 x10(3)/[facility] Blood 08/04/2022 11:2 4 PM EST 08/04/2022 11:29 PM EST Narrative Resulting Agency Comment Spec In Lab Bubba Schroeder MD HEMATOLOGY ORDERABLE S [facility] [place] [address] * CMP w/fasting Glucose (08/04/2022 11:24 PM EST) Glucose Fasting 97 65 - 99 mg/dL [facility] Comment: ?Fasting* Glucose Interpretive Criteria Normal ?65-99 mg/dL Impaired Fasting glucose ?100-125 mg/dL Consistent with Diabetes Mellitus ? >or= 126 mg/dL *Fasting is defined as no caloric intake for at least 8 hours In the absence of unequivocal hyperglycemia a plasma glucose value of >or= 126 mg/dL should be repeated on a subsequent day. Diagnosis and Classification of Diabetes Mellitus, Position Statement from the [place] [employer]. ??Diabetes Care, Volume 33, Supplement 1, Jun 2009 Blood Urea Nitrogen 10 8 - 18 mg/dL [facility] Creatinine 0.70 0.70 - 1.20 mg/dL [facility] Sodium 137 135 - 145 mmol/L [facility] Potassium 3.6 3.5 - 5.0 mmol/L [facility] Comment: Please note: ??Patients with WBC >100,000 may have falsely elevated Potassium levels. ??For accurate Potassium quantification in these patients send serum separator tube (gold top) for subsequent determinations. ??Contact the Clinical Chemistry Laboratory if there are any questions. Chloride 101 98 - 107 mmol/L [facility] Carbon Dioxide 24 22 - 31 mmol/L [facility] Anion Gap 12 5 - 15 mmol/L [facility] Calcium 9.2 8.5 - 10.5 mg/dL [facility] Protein, Total 6.4 6.1 - 8.0 g/dL [facility] Albumin 3.7 3.2 - 5.2 g/dL [facility] Aspartate Aminotransferase 13 0 - 30 unit/L [facility] Alanine Aminotransferase 22 0 - 30 unit/L [facility] Alkaline Phosphatase 73 35 - 105 unit/L [facility] Bilirubin, Total 0.3 0.2 - 1.3 mg/dL [facility] Est Glomerular Filtration Rate 98 >=60 mL/min/1. 73 m?? [facility] Comment: This patient's estimated GFR was [...] and symptoms in addition to eGFR. Blood 08/04/2022 11:2 4 PM EST 08/04/2022 11:29 PM EST Narrative Resulting Agency Comment Spec In Lab Antonio Rojas MD CHEMISTRY ORDERABLES [facility] [place] [address] * Surgical Pathology Report (08/02/2022 7:39 PM EST) Final Diagnosis [id number] ? Location: L1WD; H119; A The signing pathologist has (i) examined the relevant preparation(s) for the specimen(s) and (ii) rendered or confirmed the diagnosis(es). . 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 Electronically signed by: ?David AKBAR, Rosaura Echeverria Verified: ??08/11/2022 9:33 ?? Pathologist Performed at: ??-[facility] Dept. of Pathology, [place] [id number] Radiation Technician: Ernestina Valenzuela MD, AP, ??CLIA Certificate: [id number] DISCUSSION Definitive fallopian tube tissue was not identified in the specimen. Clinical correlation is recommended. SPECIMEN(S) SUBMITTED A - Left ovary and portion of fallopian tube, excision (1) CLINICAL INFORMATION Left adnexal mass SPECIMEN PROCESSING A - Labeled/Fixative: Left ovary and portion of fallopian tube, fresh. Quantity/Size/Fernando ght: ??Single, 14.5 x 14.5 x 8.2 cm, 167 g (overall). Tissue Description: Previously opened, salpingo-oophorec carmen. LEFT OVARY ?? Size: 14.5 x 14.5 x 8.2 cm. ?? Outer Surface: Pale pink, disrupted, with dispersed, solid, pale-pink serosal nodules, up to 2.9 x 1.8 x 0.4 cm. ?? Cut Surface: Unilocularly cystic (80%); cyst wall lining with groups of finely nodular, guo-white excrescences (1.0 x 1.0 x 0.3 cm), scattered flat to slightly- raised yellow-orange excrescences, a 4.5 x 2.5 x 1.5 cm exophytic mural nodule revealing solid and microcystic components on cut surface, and a 4.0 x 2.5 x 2.0 cm solid mural nodule with a whorled guo-white, homogenous cut surface, with an adjacent cyst with green, mucoid material. No normal ovary parenchyma is identified. Overall the solid components are approximately 20% of the cyst. Left Fallopian Tube: Not grossly identified. Sections/Processi ng: Hand Drawer In Helper sections in 22 cassettes as follows: ?A1-A2: Cyst wall with excrescences ?A3-A4: Hand Drawer In Helper sections of fine papillary excrescences ?A5-A6: Hand Drawer In Helper yellow, flat excrescences ?A7-A10: Hand Drawer In Helper sections of the solid and cystic nodule, ?A11-A15: Hand Drawer In Helper sections of the whorled surface nodule and ? adjacent cyst ?A16-A19: Additional cyst wall sections ?A20: Candidate left fallopian tube adhesed to nodule ?A21-A22: Hand Drawer In Helper soft tissue adhesed to nodule ??[facility] 08/11/2022 9:33 AM EST [facility] OVARIAN PART / Unknown 08/02/2022 7:39 PM EST 08/02/2022 7:39 PM EST Antonio Rojas MD PATHOLOGY/CYTOLOGY O RDERABLES [facility] [place] [address] [facility] [place] [address] * Specimen to Pathology (08/02/2022 7:39 PM EST) AP Specimen 08/02/2022 7:39 PM EST 08/02/2022 7:39 PM EST Narrative [facility] - 08/02/2022 7:39 PM EST Specimen requisition ordered. ??Separate Pathology report to follow Antonio Rojas MD PATHOLOGY/CYTOLOGY O LISA Performing Organization Address [facility] Co de Phone Number [facility] [place] [address] * Non-Horseradish Grinder Final Report (08/02/2022 7:07 PM EST) Diagnosis Discussion [id number] ? Location: L1WD; H119; A The signing pathologist has (i) examined the relevant preparation(s) for the specimen(s) and (ii) rendered or confirmed the diagnosis(es). . ? Non-Horseradish Grinder Final DIAGNOSIS Negative for Malignancy Electronically signed by: ?Miladys AKBAR, Mark Bailey Verified: ??08/11/2022 15:41 ??Pathologist Performed at: ??-[facility] Dept. of Pathology, [place] [address] Radiation Technician: Ernestina Valenzuela MD, AP, ??CLIA Certificate: [id number] DISCUSSION Pelvic wash: Mesothelial cells are present. Cell block was examined. CLINICAL INFORMATION Specimen Source : Pelvic wash Pertinent Clinical Data and Significant Therapy: Left adnexal mass Clinical Impression : Left adnexal mass Pertinent Radiologic Findings ??: (not provided) Gross Description: Received ??fresh, approximately 110 mL total volume of ?? cloudy, pink fluid. Total Preparation: Liquid-Based Prep 1; Cell Block 1. 08/11/2022 3:41 PM EST [facility] Pelvic Washing 08/02/2022 7: 07 PM EST 08/02/2022 7:07 PM EST Antonio Rojas MD PATHOLOGY/CYTOLOGY O LISA Performing Organization Address [facility]/ZIP Co de Phone Number [facility] [place] [address] [facility] [place] [address] * Cytopathology Non-Gynecological (08/02/2022 7:07 PM EST) AP Specimen 08/02/2022 7:07 PM EST 08/02/2022 7:07 PM EST Narrative [facility] - 08/02/2022 7:07 PM EST Specimen requisition ordered. ??Separate Pathology report to follow Antonio Rojas MD PATHOLOGY/CYTOLOGY O RDERABLES [facility] [place] [address] * MRI Thoracic Spine wwo Contrast (08/02/2022 4:14 PM EST) Anatomical Region Laterality Modality T-spine Magnetic Resonan ce Impressions 08/02/2022 5:08 PM EST 1. ??Acute superior endplate fracture of T12 with 20% vertebral body height loss. Minimal posterior bony retropulsion contributes to mild spinal canal stenosis at T11-T12. No cord contact or deformity. No definitive accompanying enhancing mass. 2. ??No osseous metastatic disease in the thoracic or lumbar spine. Comment: The following findings are so common in people without low back pain that while we report their presence, they must be interpreted with caution and in context of the clinical situation (Reference- Jarvik Et Al, Spine 2001). Findings: (Prevalence in patients without low back pain), disc degeneration (decreased T2 signal, height loss, bulge) (91%), disc T2-signal loss (83%), disc height loss (56%), disc bulge (64%), disc protrusion (32%), annular fissure (38%). I have personally reviewed the image(s) and the resident's interpretation and agree with the findings, Devin Mario, Do at 08/02/2022 5:08 PM Thank you for letting us participate in the care of this patient. ??If you are a health care provider and have any questions regarding this report, please contact the number below. ??For patients who have questions please contact the health customer care professional that requested your imaging first. ? Electronically signed by: Devin Mario Do, [facility] ??([phone]), at 08/02/2022 5:08 PM Narrative 08/02/2022 5:08 PM EST EXAMINATION: MRI LUMBAR SPINE WWO CONTRAST, MRI THORACIC SPINE WWO CONTRAST CLINICAL HISTORY: Low back pain, cancer suspected; Lumbar radiculopathy, symptoms persist with conservative treatment; 2 weeks low back pain w radicular symptoms, CT w 15 cm ovarian mass concerning for malignancy, r/o metastatic process TECHNIQUE: MRI of the lumbar and thoracic spine was performed before and after the intravenous administration of 19cc Dotarem. COMPARISON: CT chest abdomen and pelvis 07/29/2022 FINDINGS: MRI thoracic spine: Mildly exaggerated kyphosis of the thoracic spine. Acute superior endplate fracture of T12 with approximately 20% vertebral body height loss. Fracture cleft along the superior endplate. Trace posterior 2 mm retropulsion of the vertebral body causing mild stenosis at T11-T12. Trace prevertebral blood products. Mild multilevel disc height loss. Marrow signal is benign with no enhancing marrow lesions. No cord signal abnormality or enhancement. No other spinal canal or neural foraminal stenoses. Included thoracic structures are unremarkable. Lumbar spine: Alignment is preserved. Lumbar vertebral body heights are maintained. No abnormal marrow signal or enhancement. Mild disc height loss at L2-L3. This medullaris terminates at L1. No abnormal signal or enhancement of the conus medullaris or cauda equina. L1. No abnormal signal of the conus medullaris or cauda equina. No abnormal marrow signal intensity or enhancement. Left paracentral disc protrusion at L5-S1 contacting and mildly displacing the proximal left S1 nerve roots causing moderate left subarticular recess stenosis, Disc bulge at L2-L3. Otherwise, evaluation by level reveals no significant spinal canal or neural foraminal stenoses Large incompletely imaged cystic mass in the lower abdomen. Procedure Note Devin Mario, DO - 08/02/2022 EXAMINATION: MRI LUMBAR SPINE WWO CONTRAST, MRI THORACIC SPINE WWOCONTRAST CLINICAL HISTORY: Low back pain, cancer suspected; Lumbar radiculopathy, symptoms persist with conservative treatment; 2 weeks low back pain wradicular symptoms, CT w 15 cm ovarian mass concerning for malignancy, r/ometastatic process TECHNIQUE: MRI of the lumbar and thoracic spine was performed before and after the intravenous administration of 19cc Dotarem. COMPARISON: CT chest abdomen and pelvis 07/29/2022 FINDINGS: MRI thoracic spine: Mildly exaggerated kyphosis of the thoracic spine. Acute superiorendplate fracture of T12 with approximately 20% vertebral body height loss.Fracture cleft along the superior endplate. Trace posterior 2 mm retropulsion ofthe vertebral body causing mild stenosis at T11-T12. Trace prevertebralblood products. Mild multilevel disc height loss. Marrow signal is benign withno enhancing marrow lesions. No cord signal abnormality or enhancement. No other spinal canal or neural foraminal stenoses. Included thoracicstructures are unremarkable. Lumbar spine: Alignment is preserved. Lumbar vertebral body heights are maintained. No abnormal marrow signal or enhancement. Mild disc height loss at L2-L3.This medullaris terminates at L1. No abnormal signal or enhancement of theconus medullaris or cauda equina. L1. No abnormal signal of the conus medullarisor cauda equina. No abnormal marrow signal intensity or enhancement. Left paracentral disc protrusion at L5-S1 contacting and mildly displacingthe proximal left S1 nerve roots causing moderate left subarticular recessstenosis, Disc bulge at L2-L3. Otherwise, evaluation by level reveals nosignificant spinal canal or neural foraminal stenoses Large incompletely imaged cystic mass in the lower abdomen. IMPRESSION 1. Acute superior endplate fracture of T12 with 20% vertebral body heightloss. Minimal posterior bony retropulsion contributes to mild spinal canalstenosis at T11-T12. No cord contact or deformity. No definitive accompanyingenhancing mass. 2. No osseous metastatic disease in the thoracic or lumbar spine. Comment: The following findings are so common in people without low backpain that while we report their presence, they must be interpreted with cautionand in context of the clinical situation (Reference- Devyn Et Al, [id number]). Findings: (Prevalence in patients without low back pain), discdegeneration (decreased T2 signal, height loss, bulge) (91%), disc T2-signal loss(83%), disc height loss (56%), disc bulge (64%), disc protrusion (32%), annularfissure (38%). I have personally reviewed the image(s) and the resident's interpretationand agree with the findings, Devin Mario Do at 08/02/2022 5:08 PM Thank you for letting us participate in the care of this patient. If youare a health care provider and have any questions regarding this report,please contact the number below. For patients who have questions please contactthe health customer care professional that requested your imaging first. Electronically signed by: Devin Mario Do, [facility]([phone]), at 08/02/2022 5:08 PM Antonio Rojas MD IMG MRI ORDERABLES * MRI Lumbar Spine wwo Contrast (08/02/2022 4:14 PM EST) Anatomical Region Laterality Modality L-spine Magnetic Resonan ce Impressions 08/02/2022 5:08 PM EST 1. ??Acute superior endplate fracture of T12 with 20% vertebral body height loss. Minimal posterior bony retropulsion contributes to mild spinal canal stenosis at T11-T12. No cord contact or deformity. No definitive accompanying enhancing mass. 2. ??No osseous metastatic disease in the thoracic or lumbar spine. Comment: The following findings are so common in people without low back pain that while we report their presence, they must be interpreted with caution and in context of the clinical situation (Reference- Devyn Et Al, Spine 2001). Findings: (Prevalence in patients without low back pain), disc degeneration (decreased T2 signal, height loss, bulge) (91%), disc T2-signal loss (83%), disc height loss (56%), disc bulge (64%), disc protrusion (32%), annular fissure (38%). I have personally reviewed the image(s) and the resident's interpretation and agree with the findings, Devin Mario Do at 08/02/2022 5:08 PM Thank you for letting us participate in the care of this patient. ??If you are a health care provider and have any questions regarding this report, please contact the number below. ??For patients who have questions please contact the health customer care professional that requested your imaging first. ? Electronically signed by: Devin Mario Do, [facility] ??([phone]), at 08/02/2022 5:08 PM Narrative 08/02/2022 5:08 PM EST EXAMINATION: MRI LUMBAR SPINE WWO CONTRAST, MRI THORACIC SPINE WWO CONTRAST CLINICAL HISTORY: Low back pain, cancer suspected; Lumbar radiculopathy, symptoms persist with conservative treatment; 2 weeks low back pain w radicular symptoms, CT w 15 cm ovarian mass concerning for malignancy, r/o metastatic process TECHNIQUE: MRI of the lumbar and thoracic spine was performed before and after the intravenous administration of 19cc Dotarem. COMPARISON: CT chest abdomen and pelvis 07/29/2022 FINDINGS: MRI thoracic spine: Mildly exaggerated kyphosis of the thoracic spine. Acute superior endplate fracture of T12 with approximately 20% vertebral body height loss. Fracture cleft along the superior endplate. Trace posterior 2 mm retropulsion of the vertebral body causing mild stenosis at T11-T12. Trace prevertebral blood products. Mild multilevel disc height loss. Marrow signal is benign with no enhancing marrow lesions. No cord signal abnormality or enhancement. No other spinal canal or neural foraminal stenoses. Included thoracic structures are unremarkable. Lumbar spine: Alignment is preserved. Lumbar vertebral body heights are maintained. No abnormal marrow signal or enhancement. Mild disc height loss at L2-L3. This medullaris terminates at L1. No abnormal signal or enhancement of the conus medullaris or cauda equina. L1. No abnormal signal of the conus medullaris or cauda equina. No abnormal marrow signal intensity or enhancement. Left paracentral disc protrusion at L5-S1 contacting and mildly displacing the proximal left S1 nerve roots causing moderate left subarticular recess stenosis, Disc bulge at L2-L3. Otherwise, evaluation by level reveals no significant spinal canal or neural foraminal stenoses Large incompletely imaged cystic mass in the lower abdomen. Procedure Note Devin Mario, DO - 08/02/2022 EXAMINATION: MRI LUMBAR SPINE WWO CONTRAST, MRI THORACIC SPINE WWOCONTRAST CLINICAL HISTORY: Low back pain, cancer suspected; Lumbar radiculopathy, symptoms persist with conservative treatment; 2 weeks low back pain wradicular symptoms, CT w 15 cm ovarian mass concerning for malignancy, r/ometastatic process TECHNIQUE: MRI of the lumbar and thoracic spine was performed before and after the intravenous administration of 19cc Dotarem. COMPARISON: CT chest abdomen and pelvis 07/29/2022 FINDINGS: MRI thoracic spine: Mildly exaggerated kyphosis of the thoracic spine. Acute superiorendplate fracture of T12 with approximately 20% vertebral body height loss.Fracture cleft along the superior endplate. Trace posterior 2 mm retropulsion ofthe vertebral body causing mild stenosis at T11-T12. Trace prevertebralblood products. Mild multilevel disc height loss. Marrow signal is benign withno enhancing marrow lesions. No cord signal abnormality or enhancement. No other spinal canal or neural foraminal stenoses. Included thoracicstructures are unremarkable. Lumbar spine: Alignment is preserved. Lumbar vertebral body heights are maintained. No abnormal marrow signal or enhancement. Mild disc height loss at L2-L3.This medullaris terminates at L1. No abnormal signal or enhancement of theconus medullaris or cauda equina. L1. No abnormal signal of the conus medullarisor cauda equina. No abnormal marrow signal intensity or enhancement. Left paracentral disc protrusion at L5-S1 contacting and mildly displacingthe proximal left S1 nerve roots causing moderate left subarticular recessstenosis, Disc bulge at L2-L3. Otherwise, evaluation by level reveals nosignificant spinal canal or neural foraminal stenoses Large incompletely imaged cystic mass in the lower abdomen. IMPRESSION 1. Acute superior endplate fracture of T12 with 20% vertebral body heightloss. Minimal posterior bony retropulsion contributes to mild spinal canalstenosis at T11-T12. No cord contact or deformity. No definitive accompanyingenhancing mass. 2. No osseous metastatic disease in the thoracic or lumbar spine. Comment: The following findings are so common in people without low backpain that while we report their presence, they must be interpreted with cautionand in context of the clinical situation (Reference- Jaylinvik Et Al, [id number]). Findings: (Prevalence in patients without low back pain), discdegeneration (decreased T2 signal, height loss, bulge) (91%), disc T2-signal loss(83%), disc height loss (56%), disc bulge (64%), disc protrusion (32%), annularfissure (38%). I have personally reviewed the image(s) and the resident's interpretationand agree with the findings, Devin Mario Do at 08/02/2022 5:08 PM Thank you for letting us participate in the care of this patient. If youare a health care provider and have any questions regarding this report,please contact the number below. For patients who have questions please contactthe health customer care professional that requested your imaging first. Electronically signed by: Devin Mario Do, [facility]([phone]), at 08/02/2022 5:08 PM Oumou Villar MD IMG MRI ORDERABLES * Request For 2nd Read CT Chest Abdomen Pelvis (08/01/2022 10:31 PM EST) Anatomical Region Laterality Modality Chest, Abdomen, Pelvis SO Impressions 08/02/2022 8:41 AM EST 1. ??16 x 13.4 cm predominantly cystic lower abdominal mass with peripheral mural nodularity. 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 Regions of mural nodularity are suspicious for malignancy. No evidence of rupture/pseudomyxoma. 2. ??Sub-6 mm left lower lobe pulmonary nodules are suspected to represent intrapulmonary lymph nodes. Consider follow-up noncontrast chest CT in 6 months. 3. ??Hepatic steatosis. 4. ??Absent left kidney. I have personally reviewed the image(s) and the resident's interpretation and agree with the findings, Angel Baker DO at 08/02/2022 8:41 AM Thank you for letting us participate in the care of this patient. ??If you are a health care provider and have any questions regarding this report, please contact the number below. ??For patients who have questions please contact the health customer care professional that requested your imaging first. ? Electronically signed by: Angel Baker DO, [facility] ([phone]), at 08/02/2022 8:41 AM Narrative 08/02/2022 8:41 AM EST EXAMINATION: * ??REQUEST FOR 2ND READ CT CHEST ABDOMEN PELVIS * ??CT OF THE CHEST, ABDOMEN, AND PELVIS WITH INTRAVENOUS CONTRAST. CLINICAL HISTORY: 61-year-old female with left adnexal mass. ??History of hysterectomy and right oophorectomy. ??Solitary right kidney. ??Clinical concern for aneurysm. ??Request for second interpretation of outside imaging study. ?? * ??Sending Institution [facility] * ??Date of exam 20220729 * ??I believe a reinterpretation of this exam may alter care of Patient. Yes TECHNIQUE: CT of the chest, abdomen, and pelvis was performed with intravenous contrast at [facility] on July 29, 2022. Helical CT images of the chest, abdomen, and pelvis were obtained following administration of intravenous contrast. ??Per report, the patient received 100 mL Omnipaque 350 intravenous contrast. ??Oral contrast was not administered. Multiplanar reformats were performed in the sagittal and coronal planes. Maximum Intensity Projection (MIP) images were also reformatted. COMPARISON: There is no similar prior examination provided for comparison. FINDINGS: Machine Worker Images: Noncontributory. CT OF THE CHEST: Lungs and large airways: 2 sub-6 mm paraseptal nodules in the peripheral left lower lobe (series 5 image 33 and 37) with the appearance of the intrapulmonary lymph nodes. Linear scarring or atelectasis in the lingula. Dependent atelectasis posteriorly. ??The central airways are patent. ??There is no endobronchial or endotracheal lesion. Pleura: No effusion or pneumothorax. Heart/vasculature: Normal cardiac size. No pericardial effusion. No thoracic aortic aneurysm. Lymph nodes: No enlarged lymph nodes. Mediastinum and margot: The mediastinal fat is preserved. ??The esophagus is mildly patulous. Inferior neck: Visualized structures within the inferior neck are within normal limits. Body wall: Normal. CT OF THE ABDOMEN AND PELVIS: Liver: No focal lesions. Diffuse low-attenuation of the hepatic parenchyma. Normal size. Bile ducts: Nondilated. Gallbladder: No calcified gallstones. Normal caliber wall. Pancreas: There is diffuse pancreatic atrophy with fatty placement. The low-attenuation rounded structure in the body/tail junction seen on series 5 image 55 represents normal fatty lobulation when compared to coronal reconstruction series 6 image 67. Spleen: Normal. Adrenals: Normal. Kidneys: Absent left kidney. Normal right kidney. No hydronephrosis or mass. Urinary Bladder: Normal. Vasculature: Nonaneurysmal abdominal aorta. Patent portal veins. Lymph Nodes: ??No enlarged lymph nodes. Bowel: Nondilated, no wall thickening. ?? Peritoneum and mesentery: 16 x 13.4 cm predominantly fluid-filled mass in the lower abdomen with areas of mural nodularity. Nodularity is most prominent anteriorly where it measures approximately 5.4 x 3.8 cm. Abdominal wall: Normal. Reproductive organs: Status post hysterectomy. Osseous structures: No suspicious lesions. Procedure Note Angel Baker, - 02/27/2023 EXAMINATION: * REQUEST FOR 2ND READ CT CHEST ABDOMEN PELVIS * CT OF THE CHEST, ABDOMEN, AND PELVIS WITH INTRAVENOUS CONTRAST. CLINICAL HISTORY: 61-year-old female with left adnexal mass. History of hysterectomy and right oophorectomy. Solitary right kidney. Clinicalconcern for aneurysm. Request for second interpretation of outside imaging study. * Sending Institution [facility] * Date of exam 20220729 * I believe a reinterpretation of this exam may alter care of Patient.Yes TECHNIQUE: CT of the chest, abdomen, and pelvis was performed withintravenous contrast at [facility] on July 29, 2022. Helical CT images of the chest, abdomen, and pelvis were obtainedfollowing administration of intravenous contrast. Per report, the patient [id number] mL Omnipaque 350 intravenous contrast. Oral contrast was not administered. Multiplanar reformats were performed in the sagittal and coronal planes. Maximum Intensity Projection (MIP) images were also reformatted. COMPARISON: There is no similar prior examination provided forcomparison. FINDINGS: Machine Worker Images: Noncontributory. CT OF THE CHEST: Lungs and large airways: 2 sub-6 mm paraseptal nodules in the peripheralleft lower lobe (series 5 image 33 and 37) with the appearance of theintrapulmonary lymph nodes. Linear scarring or atelectasis in the lingula. Dependent atelectasis posteriorly. The central airways are patent. There is no endobronchial or endotracheal lesion. Pleura: No effusion or pneumothorax. Heart/vasculature: Normal cardiac size. No pericardial effusion. Nothoracic aortic aneurysm. Lymph nodes: No enlarged lymph nodes. Mediastinum and margot: The mediastinal fat is preserved. The esophagus ismildly patulous. Inferior neck: Visualized structures within the inferior neck are withinnormal limits. Body wall: Normal. CT OF THE ABDOMEN AND PELVIS: Liver: No focal lesions. Diffuse low-attenuation of the hepaticparenchyma. Normal size. Bile ducts: Nondilated. Gallbladder: No calcified gallstones. Normal caliber wall. Pancreas: There is diffuse pancreatic atrophy with fatty placement. The low-attenuation rounded structure in the body/tail junction seen on series5 image 55 represents normal fatty lobulation when compared to coronal reconstruction series 6 image 67. Spleen: Normal. Adrenals: Normal. Kidneys: Absent left kidney. Normal right kidney. No hydronephrosis ormass. Urinary Bladder: Normal. Vasculature: Nonaneurysmal abdominal aorta. Patent portal veins. Lymph Nodes: No enlarged lymph nodes. Bowel: Nondilated, no wall thickening. Peritoneum and mesentery: 16 x 13.4 cm predominantly fluid-filled mass inthe lower abdomen with areas of mural nodularity. Nodularity is mostprominent anteriorly where it measures approximately 5.4 x 3.8 cm. Abdominal wall: Normal. Reproductive organs: Status post hysterectomy. Osseous structures: No suspicious lesions. IMPRESSION 1. 16 x 13.4 cm predominantly cystic lower abdominal mass with peripheralmural nodularity. 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 No evidence of rupture/pseudomyxoma. 2. Sub-6 mm left lower lobe pulmonary nodules are suspected torepresent intrapulmonary lymph nodes. Consider follow-up noncontrast chest CT in 6months. 3. Hepatic steatosis. 4. Absent left kidney. I have personally reviewed the image(s) and the resident's interpretationand agree with the findings, Angel Baker DO at 08/02/2022 8:41 AM Thank you for letting us participate in the care of this patient. If youare a health care provider and have any questions regarding this report,please contact the number below. For patients who have questions please contactthe health customer care professional that requested your imaging first. Electronically signed by: Angel Baker DO, [facility]([phone]), at 08/02/2022 8:41 AM Oumou Villar MD IMG OUTSIDE INTERPRE TATION ORDERABLES * (ABNORMAL) Request For 2nd Read CT Spine (08/01/2022 10:30 PM EST) Anatomical Region Laterality Modality C-spine, T-spine, L-spine SO Impressions 08/02/2022 8:25 AM EST Overall mild degenerative changes. Left paracentral disc herniation at L5-S1 may impinge upon the traversing left S1 nerve root. Consider lumbar spine MRI for further evaluation. Partially imaged large cystic structure in the pelvis. Unexpected finding. Please see CT abdomen/pelvis report for details and full evaluation. Thank you for letting us participate in the care of this patient. ??If you are a health care provider and have any questions regarding this report, please contact the number below. ??For patients who have questions please contact the health customer care professional that requested your imaging first. ? Electronically signed by: Angel Rodriguez [facility] ([phone]), at 08/02/2022 8:25 AM Narrative 08/02/2022 8:25 AM EST EXAMINATION: REQUEST FOR 2ND READ CT SPINE CLINICAL HISTORY: back/flank pain r/o spinal stenosis; Sending Institution [facility]; Date of exam 20220729; I believe a reinterpretation of this exam may alter care of Patient. Yes TECHNIQUE: Reinterpretation of an outside CT of the thoracic and lumbar spine dated 07/29/2022. COMPARISON: None FINDINGS: Mild disc degenerative changes in the mid and lower thoracic spine. Bulky anterior osteophytes at the T3-T10 levels. Vertebral body heights are maintained. Alignment is near anatomic. At L5-S1 is a left paracentral disc herniation that may impinge upon the traversing left S1 nerve root. This finding is best seen on series 8, image [address] chest/abdomen/pelvis. Otherwise no disc herniations are identified within the limitations of a noncontrast CT scan of the spine. Mild lower lumbar facet arthropathy. No aggressive osseous lesions. No fractures. Partially imaged large cystic structure in the pelvis. Left kidney is absent. Resulting Agency Comment Unexpected Finding Oumou Villar MD IMG OUTSIDE INTERPRE TATION ORDERABLES * Request for 2nd read Ultrasound Study (08/01/2022 10:29 PM EST) Anatomical Region Laterality Modality SO Addenda Addendum by Sandra Henderson MD on 08/27/2022 12:35 PM EDT --------ADDENDUM #1-------- TECHNIQUE: US Pelvis, Images were obtained and VRE Thank you for letting us participate in the care of this patient. ??If you are a health care provider and have any questions regarding this report, please contact the number below. ??For patients who have questions please contact the health customer care professional that requested your imaging first. ? Electronically signed by: Sandra Henderson MD, [facility] ([phone]), at 08/27/2022 12:30 PM --------ORIGINAL REPORT -------- EXAMINATION: REQUEST FOR 2ND READ ULTRASOUND STUDY CLINICAL HISTORY: L adnexal mass; Sending Institution [facility]; Date of exam 20220730; I believe a reinterpretation of this exam may alter care of Patient. Yes; ; L adnexal mass TECHNIQUE: Images were obtained and VRE COMPARISON: CT from 07/29/2022 FINDINGS: By history the patient is status post cystectomy and LEFT nephrectomy. The images presented show a large cystic lesion in the RIGHT adnexa with peripheral nodularity. The measurements obtained were 13.7 x 11.5 by approximately 12.8 cm. The images do not show definite vascularity within the mural nodules. The appearance of this lesion is highly suspicious for cystic neoplasm. The history in the chart indicates that this will be resected. IMPRESSION: Large cystic lesion with mural nodularity in the RIGHT adnexa highly suspicious for malignancy Thank you for letting us participate in the care of this patient. ??If you are a health care provider and have any questions regarding this report, please contact the number below. ??For patients who have questions please contact the health customer care professional that requested your imaging first. ? Electronically signed by: Sandra Henderson MD, [facility] ([phone]), at 08/02/2022 10:18 AM Addendum by Sandra Henderson MD on 08/25/2022 12:39 PM EDT --------ADDENDUM #1-------- TECHNIQUE: US Pelvis, Images were obtained and VRE --------ORIGINAL REPORT -------- EXAMINATION: REQUEST FOR 2ND READ ULTRASOUND STUDY CLINICAL HISTORY: L adnexal mass; Sending Institution [facility]; Date of exam 20220730; I believe a reinterpretation of this exam may alter care of Patient. Yes; ; L adnexal mass TECHNIQUE: Images were obtained and VRE COMPARISON: CT from 07/29/2022 FINDINGS: By history the patient is status post cystectomy and LEFT nephrectomy. The images presented show a large cystic lesion in the RIGHT adnexa with peripheral nodularity. The measurements obtained were 13.7 x 11.5 by approximately 12.8 cm. The images do not show definite vascularity within the mural nodules. The appearance of this lesion is highly suspicious for cystic neoplasm. The history in the chart indicates that this will be resected. IMPRESSION: Large cystic lesion with mural nodularity in the RIGHT adnexa highly suspicious for malignancy Thank you for letting us participate in the care of this patient. ??If you are a health care provider and have any questions regarding this report, please contact the number below. ??For patients who have questions please contact the health customer care professional that requested your imaging first. ? Electronically signed by: Sandra Henderson MD, [facility] ([phone]), at 08/02/2022 10:18 AM Impressions 08/02/2022 10:18 AM EST Large cystic lesion with mural nodularity in the RIGHT adnexa highly suspicious for malignancy Thank you for letting us participate in the care of this patient. ??If you are a health care provider and have any questions regarding this report, please contact the number below. ??For patients who have questions please contact the health customer care professional that requested your imaging first. ? Electronically signed by: Sandra Henderson MD, [facility] ([phone]), at 08/02/2022 10:18 AM Narrative 08/02/2022 10:18 AM EST EXAMINATION: REQUEST FOR 2ND READ ULTRASOUND STUDY CLINICAL HISTORY: L adnexal mass; Sending Institution [facility]; Date of exam 20220730; I believe a reinterpretation of this exam may alter care of Patient. Yes; ; L adnexal mass TECHNIQUE: Images were obtained and VRE COMPARISON: CT from 07/29/2022 FINDINGS: By history the patient is status post cystectomy and LEFT nephrectomy. The images presented show a large cystic lesion in the RIGHT adnexa with peripheral nodularity. The measurements obtained were 13.7 x 11.5 by approximately 12.8 cm. The images do not show definite vascularity within the mural nodules. The appearance of this lesion is highly suspicious for cystic neoplasm. The history in the chart indicates that this will be resected. Procedure Note Sandra Henderson MD - 08/02/2022 EXAMINATION: REQUEST FOR 2ND READ ULTRASOUND STUDY CLINICAL HISTORY: L adnexal mass; Sending Institution [facility]; Dateof exam 20220730; I believe a reinterpretation of this exam may alter care ofPatient. Yes; ; L adnexal mass TECHNIQUE: Images were obtained and VRE COMPARISON: CT from 07/29/2022 FINDINGS: By history the patient is status post cystectomy and LEFT nephrectomy.The images presented show a large cystic lesion in the RIGHT adnexa withperipheral nodularity. The measurements obtained were 13.7 x 11.5 by imosedmlcgkqc90.8 cm. The images do not show definite vascularity within the mural nodules.The appearance of this lesion is highly suspicious for cystic neoplasm. Thehistory in the chart indicates that this will be resected. IMPRESSION Large cystic lesion with mural nodularity in the RIGHT adnexa highlysuspicious for malignancy Thank you for letting us participate in the care of this patient. If youare a health care provider and have any questions regarding this report,please contact the number below. For patients who have questions please contactthe health customer care professional that requested your imaging first. Electronically signed by: Sandra Henderson MD, [facility]([phone]), at 08/02/2022 10:18 AM Oumou Villar MD IMG OUTSIDE INTERPRE TATION ORDERABLES * BLOOD GAS 2 VENOUS (08/01/2022 10:23 PM EST) pH, Venous 7.36 7.32 - 7.42 [facility] PCO2, Venous 47 41 - 51 mmHg [facility] PO2, Venous 31 25 - 40 mmHg [facility] Bicarbonate, Venous 25.9 mmol/L [facility] Base Excess, Venous 0.4 mmol/L [facility] Hgb Blood Gas 14.4 11.7 - 15.5 g/dL [facility] Oxyhemoglobin, Venous 58.3 % [facility] Carboxyhemoglob in, Venous 8.9 % [facility] Comment: Nonsmokers: 0.5-1.5% COHB Smokers: Variable, but usually less than 10% Toxic: 20-30% COHB Lethal: Greater than 60% COHB Methemoglobin, Venous 0.1 <=1.5 % [facility] Na Whole Blood 137 135 - 145 mmol/L [facility] K Whole Blood 4.0 3.5 - 5.0 mmol/L [facility] Comment: Please note: Patients with WBC >100,000 may have falsely elevated Potassium levels. Contact the Clinical Chemistry Laboratory if there are any questions. ICa Whole Blood 1.21 1.15 - 1.33 mmol/L [facility] Comment: Note: ??Total bilirubin higher than 20 mg/dL may lead to falsely low ionized calcium. CL Whole Blood 100 98 - 107 mmol/L [facility] Gluc Whole Bld 95 65 - 199 mg/dL [facility] Comment:Diabetes: >=200 mg/d L plus symptoms Lactate WB 1.6 0.5 - 2.2 mmol/L [facility] Blood Gas Source Venous [facility] Blood 08/01/2022 10:2 3 PM EST 08/01/2022 10:23 PM EST Oumou Villar MD POINT OF CARE TEST O RDERABLES Performing Organization Address [facility] Co de Phone Number [facility] [place] [address] * CEA (08/01/2022 10:15 PM EST) Carcinoembryonic Antigen 2.2 <=3.8 ng/mL [facility] Comment: Reference range: ??(20-69 years): Non-smoker: ??less than or equal to 3.8 ng/mL Smoker: ??less than 5.5 ng/ml This result was generated using a Greg Lynn immunoassay. ??Results obtained from other methods or manufacturers cannot be used interchangeably with this method. Blood Venous Draw / Unknown 08/01/2022 10:15 PM EST 08/01/2022 10:36 PM EST Narrative Resulting Agency Comment Spec In Lab Oumou Villar MD CHEMISTRY ORDERABLES Performing Organization Address [facility] Co de Phone Number [facility] [place] [address] * Carbohydrate Antigen 19-9 (08/01/2022 10:15 PM EST) CA 19-9 7.1 <=35.0 u/ml [facility] Comment: This result was generated using a Greg Lynn immunoassay. ??Results obtained from other methods or manufacturers cannot be used interchangeably with this method. Blood Venous Draw / Unknown 08/01/2022 10:15 PM EST 08/01/2022 10:36 PM EST Narrative Resulting Agency Comment Spec In Lab Oumou Villar MD CHEMISTRY ORDERABLES Performing Organization Address City/[facility] Co de Phone Number [facility] [place] [address] * (ABNORMAL) Cancer Antigen 125 (08/01/2022 10:15 PM EST) CA 125 40.8(H) <=38.1 unit/mL [facility] Comment: CA 125 Reference Interval ??Postmenopausal: 6.2 to 31.5 U/mL. ??Premenopausal: 6.9 to 45.9 U/mL. ??Pre and Postmenopausal subjects combined: 6.4 to 38.1 U/mL. This result was generated using a Greg Lynn immunoassay. ??Results obtained from other methods or manufacturers cannot be used interchangeably with this method. Blood Venous Draw / Unknown 08/01/2022 10:15 PM EST 08/01/2022 10:36 PM EST Narrative Resulting Agency Comment Spec In Lab Oumou Villar MD CHEMISTRY ORDERABLES Performing Organization Address City/[facility]/ZIP Co de Phone Number [facility] [place] [address] * Type and Screen Validity (08/01/2022 10:15 PM EST) T&S only valid at [facility] Comment:This Type and Screen result is only valid at the [facility] Blood 08/01/2022 10:1 5 PM EST 08/01/2022 10:28 PM EST Narrative Resulting Agency Comment Spec In Lab Nai Wright MD BLOOD BANK LAB ORDER GILBERTO [facility] [place] [address] * ABORH Recheck Status (08/01/2022 10:15 PM EST) ABORH Recheck Order Order Placed [facility] ABORH Type Recheck Not Performed [facility] Blood 08/01/2022 10:1 5 PM EST 08/01/2022 10:28 PM EST Narrative Resulting Agency Comment Spec In Lab Nai Wright MD BLOOD BANK LAB ORDER GILBERTO Performing Organization Address City/[facility]/ZIP Co de Phone Number [facility] [place] [address] * Gold Tube HOLD (08/01/2022 10:15 PM EST) Gold Hold Sample in lab. [facility] Blood Venous Draw / Unknown 08/01/2022 10:15 PM EST 08/01/2022 10:29 PM EST Nai Wright MD CHEMISTRY ORDERABLES Performing Organization Address City/[facility]/ZIP Co de Phone Number [facility] [place] [address] * (ABNORMAL) Differential, Automated (08/01/2022 10:15 PM EST) Neutrophil % 65.2 % [facility] Neutrophil Absolute 8.26(H) 1.70 - 6.10 x10(3)/mc L [facility] Lymph % 26.2 % [facility] Lymphocytes Abs 3.3(H) 0.9 - 3.2 x10(3)/mc L [facility] Monocyte % 6.9 % [facility] Monocyte Abs 0.9 0.3 - 0.9 x10(3)/mc L [facility] Eos % 0.6 % [facility] Eosinophils Abs 0.1 0.0 - 0.4 x10(3)/mc L [facility] Basophil % 0.1 % [facility] Baso Absolute 0.0 0.0 - 0.1 x10(3)/mc L [facility] Immature Gran % 1.00 % [facility] Comment: Immature granulocytes(IG's)percentage and absolute count will include metamyelocytes, myelocytes, and promyelocytes. Blood smears from CBCs yielding IG's will be scanned manually for concordance. If this scan disagrees with the automated IG or if promyelocytes are noted, a manual differential will be performed. Immature Gran Absolute 0.13(H) 0.00 - 0.04 x10(3)/mc L [facility] Blood 08/01/2022 10:1 5 PM EST 08/01/2022 10:29 PM EST Narrative Resulting Agency Comment Spec In Lab Nai Wright MD HEMATOLOGY ORDERABLE S Performing Organization Address City/State/[facility] Co de Phone Number [facility] [place] [address] * (ABNORMAL) Hemogram (08/01/2022 10:15 PM EST) White Blood Cell 12.6(H) 4.0 - 9.5 x10(3)/mc L [facility] Red Blood Cell 4.25 4.00 - 5.21 x10(6)/mc L [facility] Hemoglobin 13.7 11.7 - 15.5 g/dL [facility] Hematocrit 39.3 35.7 - 45.8 % [facility] Mean Cell Volume 92.5 82.6 - 94.4 fL [facility] Mean Cell Hemoglobin 32.2(H) 27.1 - 32.0 pg [facility] Mean Cell Hemoglobin Concentration 34.9 31.7 - 35.0 g/dL [facility] Platelet 286 145 - 357 x10(3)/mc L [facility] RDW Standard Deviation 43.4 37.0 - 46.0 fL [facility] RDW coefficient of variation 12.6 11.5 - 14.1 % [facility] Mean Platelet Volume 9.2 7.6 - 12.9 fL [facility] NRBC% auto 0.0 % [facility] NRBC Absolute 0.000 0.000 - 0.000 x10(3)/mc L [facility] Blood 08/01/2022 10:1 5 PM EST 08/01/2022 10:29 PM EST Narrative Resulting Agency Comment Spec In Lab Nai Wright MD HEMATOLOGY ORDERABLE S Performing Organization Address City/[facility]/ZIP Co de Phone Number [facility] [place] [address] * Antibody screen (08/01/2022 10:15 PM EST) Ab Screen Interp Negative [facility] Expires at [id number] on: 08/04/2022 [facility] Blood 08/01/2022 10:1 5 PM EST 08/01/2022 10:28 PM EST Narrative Resulting Agency Comment Spec In Lab Nai Wright MD BLOOD BANK LAB ORDER GILBERTO Performing Organization Address City/[facility]/ZIP Co de Phone Number [facility] [place] [address] * ABO/Rh Typing (08/01/2022 10:15 PM EST) ABORH Type O Pos [facility] Blood 08/01/2022 10:1 5 PM EST 08/01/2022 10:28 PM EST Narrative Resulting Agency Comment Spec In Lab Nai Wright MD BLOOD BANK LAB ORDER GILBERTO Performing Organization Address City/[facility]/ZIP Co de Phone Number [facility] [place] [address] * Lipase (08/01/2022 10:15 PM EST) Lipase 11 0 - 60 unit/L [facility] Blood 08/01/2022 10:1 5 PM EST 08/01/2022 10:29 PM EST Narrative Resulting Agency Comment Spec In Lab Oumou Villar MD CHEMISTRY ORDERABLES Performing Organization Address City/[facility]/ZIP Co de Phone Number [facility] [place] [address] * Hepatic Function Panel (08/01/2022 10:15 PM EST) Protein, Total 7.2 6.1 - 8.0 g/dL [facility] Albumin 4.4 3.2 - 5.2 g/dL [facility] Aspartate Aminotransferase 13 0 - 30 unit/L [facility] Alanine Aminotransferase 23 0 - 30 unit/L [facility] Alkaline Phosphatase 84 35 - 105 unit/L [facility] Bilirubin, Total 0.2 0.2 - 1.3 mg/dL [facility] Bilirubin, Direct 0.1 0.0 - 0.3 mg/dL [facility] Blood 08/01/2022 10:1 5 PM EST 08/01/2022 10:29 PM EST Narrative Resulting Agency Comment Spec In Lab Oumou Villar MD CHEMISTRY ORDERABLES Performing Organization Address City/State/[facility] Co de Phone Number [facility] [place] [address] * Basic Metabolic Panel (non-fasting) (08/01/2022 10:15 PM EST) Glucose 93 65 - 199 mg/dL [facility] Comment:Diabetes: >=200 mg/d L plus symptoms Blood Urea Nitrogen 13 8 - 18 mg/dL [facility] Creatinine 0.78 0.70 - 1.20 mg/dL [facility] Sodium 136 135 - 145 mmol/L [facility] Potassium 4.1 3.5 - 5.0 mmol/L [facility] Comment: Please note: ??Patients with WBC >100,000 may have falsely elevated Potassium levels. ??For accurate Potassium quantification in these patients send serum separator tube (gold top) for subsequent determinations. ??Contact the Clinical Chemistry Laboratory if there are any questions. Chloride 101 98 - 107 mmol/L [facility] Carbon Dioxide 23 22 - 31 mmol/L [facility] Anion Gap 12 5 - 15 mmol/L [facility] Calcium 9.2 8.5 - 10.5 mg/dL [facility] Est Glomerular Filtration Rate 86 >=60 mL/min/1. 73 m?? [facility] Comment: This patient's estimated GFR was [...] and symptoms in addition to eGFR. Blood 08/01/2022 10:1 5 PM EST 08/01/2022 10:29 PM EST Narrative Resulting Agency Comment Spec In Lab Oumou Villar MD CHEMISTRY ORDERABLES [facility] [place] [address] * (ABNORMAL) Urinalysis with reflex Culture (08/01/2022 10:10 PM EST) Glucose, Urine Dipstick Negative Negative mg/dL [facility] Protein, Urine Dipstick Negative Negative mg/dL [facility] Bilirubin, Urine Dipstick Negative Negative mg/dL [facility] Comment: Clinical correlation required for positive Urine Bilirubin results as false positive may occur with some drugs and drug related products. If a false positive is suspected a serum total bilirubin should be considered if clinically indicated. Urobilinogen, Urine Dipstick Normal Normal mg/dL [facility] pH, Urn (dipstick) 6.5 5.0 - 8.0 [facility] Blood, Urine Dipstick Negative Negative mg/dL [facility] Ketone, Urine Dipstick Negative Negative mg/dL [facility] Nitrite, Urine Dipstick Negative Negative [facility] Leukocytes, Urine Dipstick Negative Negative mcL [facility] Appearance, Urine Dipstick Clear Clear [facility] Specific [place] Urine Automated 1.004(L) 1.005 - 1.030 [facility] Color, Urine Dipstick Yellow Yellow [facility] Reflex to Culture No [facility] Urine 08/01/2022 10:1 0 PM EST 08/01/2022 10:29 PM EST Narrative Resulting Agency Comment Spec In Lab Oumou Villar MD URINE ORDERABLES [facility] [place] [address] * Film Library- Storage Only Ultrasound Study (07/30/2022 12:00 AM EST) Narrative Dicom, Auditing User - 08/01/2022 9:52 PM EST This exam is auto-finalizing. It's purpose is for storage only. Kayleigh Ale [employer] FILM LIBRARY ORD ERABLES * Film Library- Storage Only CT Spine (07/29/2022 12:05 AM EST) Narrative Dicom, Auditing User - 08/01/2022 9:53 PM EST This exam is auto-finalizing. It's purpose is for storage only. Kayleigh Ale IMG FILM LIBRARY ORD ERABLES * Film Library- Storage Only CT Chest Abdomen Pelvis (07/29/2022 12:00 AM EST) Narrative Dicom, Auditing User - 08/01/2022 9:51 PM EST This exam is auto-finalizing. It's purpose is for storage only. 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, lumbar region documented in this encounter Admitting Diagnoses Diagnosis Adnexal mass Other specified symptom associated with female genital organs documented in this encounter Administered Medications Inactive Administered Medications - up to 3 most recent administrations Medication Order MAR Action Action Date Dose Rate Site acetaminophen (Ofirmev) (1,000 mg/100 mL) infusion 1,000 mg 1,000 mg, Intravenous, at 400 mL/hr, Administer over 15 Minutes, EVERY 8 HOURS SCHEDULED, 4 doses, First dose on Teresa 3/2/23 at 0600, Last dose on Tue08/06/22 at 0600, Maximum dose of acetaminophen is 4,000 mg from all sources in 24 hours. When ordered for pain, acetaminophen should be given even when other ordered pain medications are indicated. , Routine, Is ketorolac (Toradol) IV contraindicated? No, Can this patient tolerate oral medications or suppositories? No Given 08/06/2022 5:30 AM EST 1,000 mg 400 mL/hr Given 08/05/2022 9:30 PM EST 1,000 mg 400 mL/hr Given 08/05/2022 5:38 AM EST 1,000 mg 400 mL/hr acetaminophen (Ofirmev) (1,000 mg/100 mL) infusion 1,000 mg 1,000 mg, Intravenous, at 400 mL/hr, Administer over 15 Minutes, EVERY 8 HOURS SCHEDULED, 3 doses, First dose (after last reorder) on Tue08/06/22 at 1400, Last dose on Tue08/07/22 at 0600, Maximum dose of acetaminophen is 4,000 mg from all sources in 24 hours. When ordered for pain, acetaminophen should be given even when other ordered pain medications are indicated. , Routine, Is ketorolac (Toradol) IV contraindicated? No, Can this patient tolerate oral medications or suppositories? No Given 08/07/2022 5:05 AM EST 1,000 mg 400 mL/hr Given 08/06/2022 9:27 PM EST 1,000 mg 400 mL/hr Given 08/06/2022 3:15 PM EST 1,000 mg 400 mL/hr acetaminophen (Tylenol) tablet 1,000 mg 1,000 mg, Oral, ONCE, 1 dose, On Tue08/02/22 at 0314, Maximum dose of acetaminophen is 4,000 mg from all sources in 24 hours. When ordered for pain, acetaminophen should be given even when other ordered pain medications are indicated. , STAT Given 08/02/2022 3:33 AM EST 1,000 mg acetaminophen (Tylenol) tablet 650 mg 650 mg, Oral, EVERY 6 HOURS, First dose (after last modification) on Tue08/03/22 at 0215, Until Discontinued, Maximum dose of acetaminophen is 4,000 mg from all sources in 24 hours. Both acetaminophen and ibuprofen, if ordered, should be given even when other ordered pain medications are indicated., Routine Given 08/04/2022 8:12 PM EST 650 mg Given 08/04/2022 2:07 PM EST 650 mg Given 08/04/2022 8:16 AM EST 650 mg acetaminophen (Tylenol) tablet 650 mg 650 mg, Oral, EVERY 6 HOURS, First dose on Tue08/07/22 at 0830, Until Discontinued, Maximum dose of acetaminophen is 4,000 mg from all sources in 24 hours. When ordered for pain, acetaminophen should be given even when other ordered pain medications are indicated. , Routine Given 08/08/2022 1:53 PM EST 650 mg Given 08/08/2022 9:18 AM EST 650 mg Given 08/08/2022 4:08 AM EST 650 mg amitriptyline (Elavil) tablet 100 mg 100 mg, Oral, NIGHTLY, First dose on Tue08/02/22 at 2100, Until Discontinued, Routine Given 08/04/2022 8:11 PM EST 100 mg Given 08/03/2022 8:12 PM EST 100 mg amitriptyline (Elavil) tablet 100 mg 100 mg, Oral, NIGHTLY, First dose on Tue08/06/22 at 2100, Until Discontinued, Please clamp ngt for 60min when giving, Routine Given 08/07/2022 8:41 PM EST 100 mg Given 08/06/2022 9:32 PM EST 100 mg atenoloL (Tenormin) tablet 50 mg 50 mg, Oral, DAILY, First dose on Tue08/03/22 at 0900, Until Discontinued, Routine Given 08/04/2022 8:16 AM EST 50 mg Given 08/03/2022 9:54 AM EST 50 mg atenoloL (Tenormin) tablet 50 mg 50 mg, Oral, DAILY, First dose on Tue08/07/22 at 0900, Until Discontinued, Hold if sbp<100, hr<60 Please clamp ngt for 1hr when giving, Routine Given 08/08/2022 9:19 AM EST 50 mg Given 08/07/2022 9:12 AM EST 50 mg benzonatate (Tessalon) capsule 100 mg 100 mg, Oral, 3 TIMES DAILY, First dose on Tue08/03/22 at 1500, Until Discontinued, DO NOT CRUSH OR OPEN, Routine Given 08/04/2022 8:11 PM EST 100 mg Given 08/04/2022 2:07 PM EST 100 mg Given 08/04/2022 8:16 AM EST 100 mg cyclobenzaprine (Flexeril) tablet 10 mg 10 mg, Oral, 3 TIMES DAILY PRN, Starting on Tue08/02/22 at 1728, Until Teresa 08/05/22 at 0212, Muscle spasms, Routine Given 08/03/2022 8:08 PM EST 10 mg Given 08/02/2022 10:23 PM EST 10 mg cyclobenzaprine (Flexeril) tablet 5 mg 5 mg, Oral, 3 TIMES DAILY PRN, Starting on 08/07/22 at 0830, Until 08/08/22 at 1739, Muscle spasms, Routine dextrose 5% and sodium chloride 0.9% with potassium chloride 20 mEq infusion 100 mL/hr, Intravenous, CONTINUOUS, Starting on Tue08/06/22 at 0815, Until 08/07/22 at 0828 New Bag 08/07/2022 4:51 AM EST 100 mL/hr 100 mL/hr New Bag 08/06/2022 8:40 AM EST 100 mL/hr 100 mL/hr diazePAM (Valium) tablet 2 mg 2 mg, Oral, ONCE, 1 dose, On Tue08/02/22 at 1154, STAT Given 08/02/2022 11:56 AM EST 2 mg diphenhydrAMINE (Benadryl) (50 mg/mL) injection 25 mg 25 mg, Intravenous, ONCE, 1 dose, On Tue08/06/22 at 0415, Routine Given 08/06/2022 3:27 AM EST 25 mg docusate sodium (Colace) capsule 100 mg 100 mg, Oral, 2 TIMES DAILY, First dose on Tue08/02/22 at 2100, Until Discontinued, Routine Given 08/03/2022 9:54 AM EST 100 mg Given 08/02/2022 11:58 PM EST 100 mg enoxaparin (Lovenox) (40 mg/0.4 mL) subcutaneous injection 40 mg 40 mg, Subcutaneous, NIGHTLY, First dose on Tue08/03/22 at 2100, Until Discontinued, Routine Given 08/07/2022 8:42 PM EST 40 mg Given 08/06/2022 9:29 PM EST 40 mg Given 08/05/2022 8:33 PM EST 40 mg gadoterate meglumine (Dotarem) (0.5 mMol/mL) injection solution 0-100 mL 0-100 mL, Intravenous, ONCE PRN, 1 dose, Starting on Tue08/02/22 at 1614, Until Tue08/02/22 at 1614, Per Protocol, Radiology Contrast, Routine Given 08/02/2022 4:14 PM EST 19 mLs glycerin (adult) suppository 1 suppository 1 suppository, Rectal, ONCE, 1 dose, On Tue08/05/22 at 1615, Routine Given 08/05/2022 5:57 PM EST 1 suppository hydrALAZINE (Apresoline) (20 mg/mL) injection 5 mg 5 mg, Intravenous, ONCE, 1 dose, On Tue08/06/22 at 0115 Given 08/06/2022 12:37 AM EST 5 mg hydrALAZINE (Apresoline) (20 mg/mL) injection 5 mg 5 mg, Intravenous, ONCE, 1 dose, On Tue08/06/22 at 0200 Given 08/06/2022 1:40 AM EST 5 mg hydrocortisone sodium succinate (PF) (Solu-CORTEF) 200 mg in sodium chloride 0.9% 200 mL infusion 200 mg, Intravenous, ONCE, 1 dose, On Tue08/03/22 at 1115, Administer over 30 Minutes New Bag 08/03/2022 12:05 PM EST 200 mg 400 mL/hr HYDROmorphone (Dilaudid) (0.5 mg/0.5 mL) injection syringe 0.2 mg 0.2 mg, Intravenous, ONCE, 1 dose, On Tue08/04/22 at 2300, Routine Given 08/04/2022 10:39 PM EST 0.2 mg HYDROmorphone (Dilaudid) (0.5 mg/0.5 mL) injection syringe 0.4 mg 0.4 mg, Intravenous, ONCE, 1 dose, On Tue08/05/22 at 0245, Routine Given 08/05/2022 1:56 AM EST 0.4 mg HYDROmorphone (Dilaudid) (0.5 mg/0.5 mL) injection syringe 0.4 mg 0.4 mg, Intravenous, EVERY 4 HOURS PRN, Starting on Teresa 08/05/22 at 0600, Until Teresa 08/05/22 at 1104, Pain, moderate pain (4-6), May give an additional 0.2 mg in 30 minutes once if pain not relieved., Routine Given 08/05/2022 8:51 AM EST 0.4 mg HYDROmorphone (Dilaudid) (0.5 mg/0.5 mL) injection syringe 0.5 mg 0.5 mg, Intravenous, ONCE, 1 dose, On Tue08/01/22 at 2339, STAT Given 08/02/2022 12:48 AM EST 0.5 mg HYDROmorphone (Dilaudid) (0.5 mg/0.5 mL) injection syringe 0.5 mg 0.5 mg, Intravenous, ONCE, 1 dose, On Tue08/01/22 at 2133, STAT Given 08/01/2022 10:14 PM EST 0.5 mg HYDROmorphone (Dilaudid) (1 mg/mL) in sodium chloride 0.9% 50 mL C4 PLANNER infusion syringe Intravenous, C4 PLANNER ONLY, Starting on Tue08/02/22 at 1156, Until Tue08/02/22 at 2116, Recovery (Rec[facility]-H[facility]) New Syringe/Cartridge 08/02/2022 9:06 PM EST 50 mg HYDROmorphone (Dilaudid) (1 mg/mL) in sodium chloride 0.9% 50 mL C4 PLANNER infusion syringe Intravenous, C4 PLANNER ONLY, Starting on Tue08/02/22 at 2145, Until Tue08/04/22 at 0734 New Syringe/Cartridge 08/02/2022 9:25 PM EST 50 mg HYDROmorphone (Dilaudid) (1 mg/mL) in sodium chloride 0.9% 50 mL C4 PLANNER infusion syringe Intravenous, C4 PLANNER ONLY, Starting on Teresa 08/05/22 at 1200, Until Tue08/08/22 at 0739 New Syringe/Cartridge 08/07/2022 6:50 PM EST 50 mg New Syringe/Cartridge 08/05/2022 4:44 PM EST HYDROmorphone (Dilaudid) (1 mg/mL) injection syringe 0.6 mg 0.6 mg, Intravenous, EVERY 4 HOURS PRN, Starting on Tue08/02/22 at 0152, Until Tue08/02/22 at 0834, Pain, severe pain (7-10), May give an additional 0.2 mg in 30 minutes once if pain not relieved., Routine Given 08/02/2022 6:39 AM EST 0.6 mg Given 08/02/2022 2:13 AM EST 0.6 mg HYDROmorphone (Dilaudid) (1 mg/mL) injection syringe 0.6 mg 0.6 mg, Intravenous, EVERY 2 HOURS PRN, Starting on Tue08/02/22 at 0834, Until Tue08/02/22 at 2110, Pain, severe pain (7-10), May give an additional 0.2 mg in 30 minutes once if pain not relieved., Routine Given 08/02/2022 4:43 PM EST 0.6 mg Given 08/02/2022 12:38 PM EST 0.6 mg Given 08/02/2022 10:13 AM EST 0.6 mg HYDROmorphone (Dilaudid) (1 mg/mL) injection syringe 0.6 mg 0.6 mg, Intravenous, ONCE, 1 dose, On Tue08/02/22 at 1414, STAT Given 08/02/2022 2:14 PM EST 0.6 mg HYDROmorphone (Dilaudid) (1 mg/mL) injection syringe 0.6 mg 0.6 mg, Intravenous, EVERY 30 MIN PRN, 4 doses, Starting on Tue08/02/22 at 1455, Until Tue08/03/22 at 0816, Pain, STAT Given 08/02/2022 5:41 PM EST 0.6 mg HYDROmorphone (Dilaudid) (1 mg/mL) injection syringe 0.6 mg 0.6 mg, Intravenous, ONCE, 1 dose, On Tue08/05/22 at 1145, Routine Given 08/05/2022 11:37 AM EST 0.6 mg HYDROmorphone (Dilaudid) 50 mg/50 mL C4 PLANNER infusion SPCA 1 dose, Starting on Tue08/02/22 at 2002, Until Tue08/02/22 at 2106, Gloria Tay.: cabinet override ibuprofen (Advil) tablet 600 mg 600 mg, Oral, EVERY 6 HOURS, First dose on Tue08/04/22 at 0015, Until Discontinued, - Begin after ketorolac discontinued. , Routine Given 08/04/2022 5:18 PM EST 600 mg Given 08/04/2022 11:36 AM EST 600 mg Given 08/04/2022 5:57 AM EST 600 mg ibuprofen (Advil) tablet 600 mg 600 mg, Oral, EVERY 6 HOURS PRN, Starting on 08/07/22 at 1940, Until 08/08/22 at 1739, Pain, Administer orally with milk or food to minimize GI irritation. Maximum dose of 3,200 mg from all sources in 24 hours, Routine ipratropium-albuteroL (Duoneb) 0.5 mg-3 mg(2.5 mg base)/3 mL nebulizer solution 3 mL 3 mL, Nebulization, EVERY 4 HOURS PRN, Starting on Tue08/03/22 at 1058, Until Tue08/08/22 at 1739, Wheezing, Routine Given 08/04/2022 5:16 PM EST 3 mLs Given 08/04/2022 6:42 AM EST 3 mLs ketorolac (Toradol) (30 mg/mL) injection 15 mg 15 mg, Intravenous, ONCE, 1 dose, On Tue08/02/22 at 0320, Routine Given 08/02/2022 3:34 AM EST 15 mg ketorolac (Toradol) (30 mg/mL) injection 15 mg 15 mg, Intravenous, EVERY 6 HOURS, 5 doses, First dose on Tue08/02/22 at 1815, Last dose on Tue08/03/22 at 1815, Routine Given 08/03/2022 6:20 PM EST 15 mg Given 08/03/2022 12:03 PM EST 15 mg Given 08/03/2022 6:09 AM EST 15 mg ketorolac (Toradol) (30 mg/mL) injection 15 mg 15 mg, Intravenous, ONCE, 1 dose, On Tue08/04/22 at 2330, Routine Given 08/04/2022 10:50 PM EST 15 mg ketorolac (Toradol) (30 mg/mL) injection 15 mg 15 mg, Intravenous, ONCE, 1 dose, On Tue08/05/22 at 1145, Routine Given 08/05/2022 11:37 AM EST 15 mg ketorolac (Toradol) (30 mg/mL) injection 15 mg 15 mg, Intravenous, EVERY 6 HOURS, 3 doses, First dose on Tue08/06/22 at 1645, Last dose on Tue08/07/22 at 0445, Routine Given 08/07/2022 4:48 AM EST 15 mg Given 08/06/2022 10:45 PM EST 15 mg Given 08/06/2022 5:29 PM EST 15 mg lactated ringers infusion 1,000 mL, at 100 mL/hr, Intravenous, CONTINUOUS, Starting on Tue08/02/22 at 1815, Until Tue08/04/22 at 0609 Rate/Dose Verify 08/04/2022 4:00 AM EST 100 mL/hr Rate/Dose Verify 08/04/2022 12:00 AM EST 100 mL /hr Rate/Dose Verify 08/03/2022 8:00 PM EST 100 mL/ hr lactated ringers infusion 100 mL/hr, Intravenous, CONTINUOUS, Starting on Tue08/04/22 at 2345, Until Tue08/05/22 at 0214 New Bag 08/04/2022 11:04 PM EST 100 mL/hr 100 mL/hr lactated ringers infusion 100 mL/hr, Intravenous, CONTINUOUS, Starting on Tue08/05/22 at 0315, Until Tue08/06/22 at 0722 Rate/Dose Verify 08/05/2022 11:53 PM EST 100 mL/hr 100 mL/hr New Bag 08/05/2022 9:29 PM EST 100 mL/hr 100 mL/hr Rate/Dose Verify 08/05/2022 8:00 PM EST 100 mL/hr 100 mL/ hr lidocaine (Lidoderm) 5% patch 1 patch 1 patch, Transdermal, Administer over 12 Hours, DAILY, First dose on Tue08/02/22 at 0314, Until Discontinued, Apply patch(es) for 12 hours, and then remove for 12 hours., Routine Patch Applied 08/02/2022 3:32 AM EST 1 patch 07- Back Lower (Left) lidocaine (Lidoderm) 5% patch 3 patch 3 patch, Transdermal, Administer over 12 Hours, DAILY, First dose (after last modification) on Tue08/03/22 at 0900, Until Discontinued, Apply patch(es) for 12 hours, and then remove for 12 hours., Routine Patch Applied 08/06/2022 8:51 AM EST 3 patches 20-Other (document in comment section) Patch Applied 08/05/2022 8:55 AM EST 3 patches 13- Abdomen (Left) Patch Applied 08/04/2022 8:17 AM EST 3 patches 07- Back Lower (Left) lisinopriL (Zestril) tablet 10 mg 10 mg, Oral, DAILY, First dose on Tue08/04/22 at 1345, Until Discontinued, Routine Given 08/04/2022 2:07 PM EST 10 mg lisinopriL (Zestril) tablet 10 mg 10 mg, Oral, DAILY, First dose on Tue08/08/22 at 0900, Until Discontinued, Routine Given 08/08/2022 9:19 AM EST 10 mg magnesium sulfate 2 g in sterile water 50 mL infusion 2 g, Intravenous, ONCE, 1 dose, On Tue08/06/22 at 0815, Administer over 120 Minutes New Bag 08/06/2022 8:45 AM EST 2 g 25 mL/hr metoclopramide (Reglan) (5 mg/mL) injection 10 mg 10 mg, Intravenous, ONCE, 1 dose, On Tue08/05/22 at 0200, Doses greater than 10mg should be diluted into 50ml NS. Given 08/05/2022 1:16 AM EST 10 mg metoprolol (LOPRESSOR) injection 10 mg 10 mg, Intravenous, EVERY 6 HOURS, 5 doses, First dose on Tue08/06/22 at 0800, Last dose on Tue08/07/22 at 0800, Hold if sbp<100, HR<60 Given 08/07/2022 9:11 AM EST 10 mg Given 08/07/2022 2:42 AM EST 10 mg Given 08/06/2022 9:35 PM EST 10 mg metoprolol (LOPRESSOR) injection 5 mg 5 mg, Intravenous, ONCE, 1 dose, On Tue08/05/22 at 0000 Given 08/04/2022 11:17 PM EST 5 mg metoprolol (LOPRESSOR) injection 5 mg 5 mg, Intravenous, EVERY 6 HOURS, First dose on Tue08/05/22 at 1630, Until Discontinued, Hold if SBP<100, HR<60 Given 08/05/2022 9:30 PM EST 5 mg Given 08/05/2022 4:46 PM EST 5 mg metoprolol (LOPRESSOR) injection 5 mg 5 mg, Intravenous, EVERY 4 HOURS, First dose (after last modification) on Tue08/06/22 at 0130, Until Discontinued, Hold if SBP<100, HR<60 Given 08/06/2022 5:30 AM EST 5 mg Given 08/06/2022 1:23 AM EST 5 mg nicotine (Nicoderm CQ) 14 mg/24 hr patch 14 mg 14 mg (1 patch), Transdermal, Administer over 24 Hours, DAILY, First dose on Tue08/02/22 at 1815, Until Discontinued, Apply new patch to clean, dry, hair-free skin on the upper body or upper outer arm; each patch should be applied to a different site. , Routine Patch Applied 08/03/2022 9:58 AM EST 14 mg 03- Shoulder (Left) Patch Applied 08/03/2022 12:01 AM EST 14 mg 04- Shoulder (Right) nicotine (Nicoderm CQ) 21 mg/24 hr patch 21 mg 21 mg (1 patch), Transdermal, Administer over 24 Hours, DAILY, First dose on Tue08/03/22 at 1700, Until Discontinued, Apply new patch to clean, dry, hair-free skin on the upper body or upper outer arm; each patch should be applied to a different site. , Routine Patch Applied 08/06/2022 5:30 PM EST 21 mg 04- Shoulder (Right) Patch Applied 08/05/2022 5:38 PM EST 21 mg 09- Arm Upper (Left) Patch Applied 08/04/2022 5:39 PM EST 21 mg 10- Arm Upper (Right) nicotine (Nicoderm CQ) 21 mg/24 hr patch 21 mg 21 mg (1 patch), Transdermal, Administer over 24 Hours, DAILY, First dose (after last modification) on Tue08/08/22 at 1415, Until Discontinued, Apply new patch to clean, dry, hair-free skin on the upper body or upper outer arm; each patch should be applied to a different site. , Routine Patch Applied 08/08/2022 1:53 PM EST 21 mg 04- Shoulder (Right) nicotine (Nicoderm CQ) 21 mg/24 hr patch Patch Verification Transdermal, 2 TIMES DAILY, First dose (after last modification) on Tue08/08/22 at 2100, Until Discontinued, Verify nicotine 21 mg/24 hr patch ondansetron (pf) (Zofran) (2 mg/mL) injection 4 mg 4 mg, Intravenous, ONCE, 1 dose, On Tue08/04/22 at 2345 Given 08/04/2022 11:05 PM EST 4 mg ondansetron (pf) (Zofran) (2 mg/mL) injection 4 mg 4 mg, Intravenous, EVERY 8 HOURS PRN, Starting on Teresa 08/05/22 at 0700, Until 08/08/22 at 1739, Nausea oxyCODONE (Roxicodone) tablet 10 mg 10 mg, Oral, EVERY 4 HOURS PRN, Starting on Tue08/04/22 at 0733, Until Teresa 08/05/22 at 0212, Pain, severe pain (7-10), Initial dose 10mg. If pain control not adequate in 60 minutes, give additional 5mg., Routine Given 08/04/2022 9:11 PM EST 10 mg Given 08/04/2022 5:16 PM EST 10 mg Given 08/04/2022 12:24 PM EST 10 mg oxyCODONE (Roxicodone) tablet 10-15 mg 10-15 mg, Oral, EVERY 4 HOURS PRN, Starting on 08/08/22 at 0738, Until 08/08/22 at 1739, Pain, severe pain (7-10), Initial dose 10mg. If pain control not adequate in 60 minutes, give additional 5mg., Routine oxyCODONE (Roxicodone) tablet 5-10 mg 5-10 mg, Oral, EVERY 4 HOURS PRN, Starting on 08/08/22 at 0738, Until 08/08/22 at 1739, Pain, moderate pain (4-6), Initial dose 5mg. If pain control not adequate in 60 minutes, give additional 5mg., Routine Given 08/08/2022 2:54 PM EST 10 mg Given 08/08/2022 10:59 AM EST 5 mg Given 08/08/2022 9:19 AM EST 5 mg pantoprazole (Protonix) injection 40 mg 40 mg, Intravenous, DAILY, 2 doses, First dose on Tue08/03/22 at 1300, Last dose on Tue08/04/22 at 0900 Given 08/04/2022 8:17 AM EST 40 mg Given 08/03/2022 12:15 PM EST 40 mg pantoprazole (Protonix) injection 40 mg 40 mg, Intravenous, ONCE, 1 dose, On Tue08/04/22 at 2300 Given 08/04/2022 10:40 PM EST 40 mg pantoprazole (Protonix) injection 40 mg 40 mg, Intravenous, 2 TIMES DAILY, First dose on Tue08/05/22 at 0900, Until Discontinued Given 08/08/2022 9:18 AM EST 40 mg Given 08/07/2022 8:39 PM EST 40 mg Given 08/07/2022 9:11 AM EST 40 mg polyethylene glycoL (Miralax) packet 17 g 17 g, Per NG tube, DAILY, First dose on Tue08/06/22 at 1115, Until Discontinued, Clamp ngt for 60 min when giving please, Routine Given 08/06/2022 12:37 PM EST 17 g polyethylene glycoL (Miralax) packet 17 g 17 g, Oral, DAILY, First dose (after last modification) on Tue08/07/22 at 0900, Until Discontinued, Clamp ngt for 60 min when giving please, Routine Given 08/08/2022 9:18 AM EST 17 g potassium chloride 10 mEq in sterile water 100 mL infusion 10 mEq, Intravenous, EVERY 2 HOURS, 2 doses, First dose on Tue08/06/22 at 1000, Last dose on Tue08/06/22 at 1200, Administer over 60 Minutes, Warning Vesicant/Irritant Medication New Bag 08/06/2022 12:22 PM EST 10 mEq 100 mL/hr New Bag 08/06/2022 11:14 AM EST 10 mEq 100 mL/hr predniSONE (Deltasone) tablet 50 mg 50 mg, Oral, DAILY, 5 doses, First dose on Tue08/04/22 at 0900, Last dose on Tue08/08/22 at 0900, Routine Given 08/04/2022 8:16 AM EST 50 mg prochlorperazine (Compazine) (5 mg/mL) injection 5 mg 5 mg, Intravenous, EVERY 30 MIN PRN, 2 doses, Starting on Tue08/02/22 at 2116, Until Tue08/02/22 at 2155, Nausea, May repeat in 30 minutes if no relief from previous dose. HOLD if patient is sedated. Maximum dose is 40 mg in 24 hours. If multiple antiemetics are ordered, use ondansetron first, prochlorperazine second. Per C4 PLANNER order., Routine Given 08/02/2022 9:55 PM EST 5 mg Given 08/02/2022 9:21 PM EST 5 mg prochlorperazine (Compazine) 10 mg/2 mL (5 mg/mL) injection 1 dose, Starting on Tue08/02/22 at 2026, Until Tue08/02/22 at 2121, Grace Manzanares: nitish barreto QUEtiapine (SEROquel) tablet 100 mg 100 mg, Oral, NIGHTLY, First dose on Tue08/02/22 at 2100, Until Discontinued, Routine Given 08/04/2022 8:11 PM EST 100 mg Given 08/03/2022 8:08 PM EST 100 mg Given 08/02/2022 11:59 PM EST 100 mg QUEtiapine (SEROquel) tablet 100 mg 100 mg, Oral, NIGHTLY, First dose on Tue08/06/22 at 2100, Until Discontinued, Please clamp ngt for 60min while giving, Routine Given 08/07/2022 8:41 PM EST 10 0 mg Given 08/06/2022 9:32 PM EST 100 mg senna-docusate (Pericolace) 8.6-50 mg per tablet 2 tablet 2 tablet, Oral, 2 TIMES DAILY, First dose on Tue08/02/22 at 2100, Until Discontinued, Routine Given 08/04/2022 8:11 PM EST 2 tablets Given 08/04/2022 8:15 AM EST 2 tablets Given 08/03/2022 8:08 PM EST 2 tablets senna-docusate (Pericolace) 8.6-50 mg per tablet 2 tablet 2 tablet, Oral, 2 TIMES DAILY PRN, Starting on 08/07/22 at 0818, Until 08/08/22 at 1739, Constipation, Routine Given 08/07/2022 9:11 AM EST 2 tabl ets sodium chloride 0.9 % (flush) (BD PosiFlush Normal Saline 0.9) flush 5 mL 5 mL, Intravenous, 2 TIMES DAILY, First dose on Tue08/02/22 at 2100, Until Discontinued, Routine Given 08/08/2022 9:27 AM EST 5 mLs Given 08/07/2022 8:40 PM EST 5 mLs Given 08/07/2022 9:15 AM EST 5 mLs sodium phosphates (FLEET) 19-7 gram/118 mL rectal enema 1 Bottle 1 Bottle, Rectal, ONCE, 1 dose, On Tue08/06/22 at 0815, Routine Given 08/06/2022 11:15 AM EST 1 Bottle tiZANidine (Zanaflex) tablet 4 mg 4 mg, Oral, DAILY, First dose on Tue08/03/22 at 0900, Until Discontinued, Routine Given 08/04/2022 8:16 AM EST 4 mg Given 08/03/2022 9:54 AM EST 4 mg tiZANidine (Zanaflex) tablet 4 mg 4 mg, Oral, DAILY, First dose on Tue08/07/22 at 0930, Until Discontinued, Routine Given 08/08/2022 9:19 AM EST 4 mg Given 08/07/2022 9:12 AM EST 4 mg documented in this encounter Active and Recently Administered Medications Times are shown in EST. Scheduled Medication Order 08/06/2022 08/07/2022 08/08/2022 acetaminophen (Ofirmev) (1,000 mg/100 mL) infusion 1,000 mg () 1,000 mg, Intravenous, at 400 mL/hr, Administer over 15 Minutes, EVERY 8 HOURS SCHEDULED, 4 doses, First dose on Tue08/05/22 at 0600, Last dose on Tue08/06/22 at 0600, Maximum dose of acetaminophen is 4,000 mg from all sources in 24 hours. When ordered for pain, acetaminophen should be given even when other ordered pain medications are indicated. , Routine, Is ketorolac (Toradol) IV contraindicated? No, Can this patient tolerate oral medications or suppositories? No 0530 (Given - Provider: Tosin Mcknight, RN) acetaminophen (Ofirmev) (1,000 mg/100 mL) infusion 1,000 mg (COMPLETED) 1,000 mg, Intravenous, at 400 mL/hr, Administer over 15 Minutes, EVERY 8 HOURS SCHEDULED, 3 doses, First dose (after last reorder) on Tue08/06/22 at 1400, Last dose on Tue08/07/22 at 0600, Maximum dose of acetaminophen is 4,000 mg from all sources in 24 hours. When ordered for pain, acetaminophen should be given even when other ordered pain medications are indicated. , Routine, Is ketorolac (Toradol) IV contraindicated? No, Can this patient tolerate oral medications or suppositories? No 1515 (Given - Provider: Herlinda Flores RN)2127 (Given - Provider: Tosin Mcknight, RN) 0505 (Given - Provider: Tosin Mcknight, OLIVIA) acetaminophen (Tylenol) tablet 650 mg 650 mg, Oral, EVERY 6 HOURS, First dose on Tue08/07/22 at 0830, Until Discontinued, Maximum dose of acetaminophen is 4,000 mg from all sources in 24 hours. When ordered for pain, acetaminophen should be given even when other ordered pain medications are indicated. , Routine 09 (Given - Provider: Jazlyn Hahn RN)143 (Not Given - Provider: Jazlyn Hahn RN - Reason: Patient/family refused)2039 (Given - Provider: Hazel Tadeo, OLIVIA) 0408 (Given - Provider: Surendra Cassidy RN)09 (Given - Provider: Keyla Trejo, OLIVIA)1353 (Given - Provider: Keyla Trejo, OLIVIA) amitriptyline (Elavil) tablet 100 mg 100 mg, Oral, NIGHTLY, First dose on Tue08/06/22 at 2100, Until Discontinued, Please clamp ngt for 60min when giving, Routine 2131 (Given - Provider: Tosin Mcknight, OLIVIA) 2040 (Given - Provider: Hazel Tadeo, OLIVIA) atenoloL (Tenormin) tablet 50 mg 50 mg, Oral, DAILY, First dose on 08/07/22 at 0900, Until Discontinued, Hold if sbp<100, hr<60 Please clamp ngt for 1hr when giving, Routine 09 (Given - Provider: Jazlyn Hahn RN) 09 (Given - Provider: Keyla Trejo, OLIVIA) diphenhydrAMINE (Benadryl) (50 mg/mL) injection 25 mg (COMPLETED) 25 mg, Intravenous, ONCE, 1 dose, On Tue08/06/22 at 0415, Routine 0327 (Given - Provider: Tosin Mcknight, OLIVIA) enoxaparin (Lovenox) (40 mg/0.4 mL) subcutaneous injection 40 mg 40 mg, Subcutaneous, NIGHTLY, First dose on Tue08/03/22 at 2100, Until Discontinued, Routine 2128 (Given - Provider: Tosin Mcknight RN) 2041 (Given - Provider: Hazel Tadeo RN) hydrALAZINE (Apresoline) (20 mg/mL) injection 5 mg (COMPLETED) 5 mg, Intravenous, ONCE, 1 dose, On Tue08/06/22 at 0115 0037 (Given - Provider: Priscilla Vallejo RN) hydrALAZINE (Apresoline) (20 mg/mL) injection 5 mg (COMPLETED) 5 mg, Intravenous, ONCE, 1 dose, On Tue08/06/22 at 0200 0140 (Given - Provider: Priscilla Vallejo RN) ketorolac (Toradol) (30 mg/mL) injection 15 mg (COMPLETED) 15 mg, Intravenous, EVERY 6 HOURS, 3 doses, First dose on Tue08/06/22 at 1645, Last dose on Tue08/07/22 at 0445, Routine 172 (Given - Provider: Herlinda Flores RN)224 (Given - Provider: Tosin Mcknight RN) 044 (Given - Provider: Tosin Mcknight RN) lidocaine (Lidoderm) 5% patch 3 patch 3 patch, Transdermal, Administer over 12 Hours, DAILY, First dose (after last modification) on Tue08/03/22 at 0900, Until Discontinued, Apply patch(es) for 12 hours, and then remove for 12 hours., Routine 0851 (Patch Applied - Provider: Herlinda Flores RN - Comment: l and r back)2129 (Patch Removed - Provider: Tosin Mcknight RN) 0849 (Not Given - Provider: Jazlyn Hahn RN - Reason: Patient/family refused) 0900 (Not Given - Provider: Keyla Trejo RN - Reason: Patient/family refused) lisinopriL (Zestril) tablet 10 mg 10 mg, Oral, DAILY, First dose on Tue08/08/22 at 0900, Until Discontinued, Routine 0919 (Given - Provider: Keyla Trejo RN) magnesium sulfate 2 g in sterile water 50 mL infusion (COMPLETED) 2 g, Intravenous, ONCE, 1 dose, On Tue08/06/22 at 0815, Administer over 120 Minutes 0845 (New Bag - Provider: Herlinda Flores, OLIVIA)1045 (Stopped - Provider: Herlinda Flores RN) metoprolol (LOPRESSOR) injection 10 mg (COMPLETED) 10 mg, Intravenous, EVERY 6 HOURS, 5 doses, First dose on Tue08/06/22 at 0800, Last dose on Tue08/07/22 at 0800, Hold if sbp<100, HR<60 0844 (Given - Provider: Herlinda Flores RN)1515 (Given - Provider: Herlinda Flores RN)2135 (Given - Provider: Tosin Mcknight, OLIVIA) 0242 (Given - Provider: Tosin Mcknight, OLIVIA)0911 (Given - Provider: Jazlyn Hahn RN) metoprolol (LOPRESSOR) injection 5 mg (CANCELED) 5 mg, Intravenous, EVERY 4 HOURS, First dose (after last modification) on Tue08/06/22 at 0130, Until Discontinued, Hold if SBP<100, HR<60 0123 (Given - Provider: Priscilla Vallejo RN)0530 (Given - Provider: Tosin Mcknight, OLIVIA) nicotine (Nicoderm CQ) 21 mg/24 hr patch 21 mg (CANCELED) 21 mg (1 patch), Transdermal, Administer over 24 Hours, DAILY, First dose on Tue08/03/22 at 1700, Until Discontinued, Apply new patch to clean, dry, hair-free skin on the upper body or upper outer arm; each patch should be applied to a different site. , Routine 1730 (Patch Applied - Provider: Herlinda Flores RN)1738 (Patch Removed - Provider: Herlinda Flores RN) 1730 (Patch Removed - Provider: Hazel Tadeo RN) nicotine (Nicoderm CQ) 21 mg/24 hr patch 21 mg(Linked Group 1) 21 mg (1 patch), Transdermal, Administer over 24 Hours, DAILY, First dose (after last modification) on Tue08/08/22 at 1415, Until Discontinued, Apply new patch to clean, dry, hair-free skin on the upper body or upper outer arm; each patch should be applied to a different site. , Routine 1353 (Patch Applied - Provider: Keyla Trejo, OLIVIA)1538 (Due: Patch Removed - Provider: Automatic Discharge Provider - Comment: Time automatically adjusted from order being discontinued) nicotine (Nicoderm CQ) 21 mg/24 hr patch Patch Verification(Linked Group 1) Transdermal, 2 TIMES DAILY, First dose (after last modification) on Tue08/08/22 at 2100, Until Discontinued, Verify nicotine 21 mg/24 hr patch pantoprazole (Protonix) injection 40 mg 40 mg, Intravenous, 2 TIMES DAILY, First dose on Tue08/05/22 at 0900, Until Discontinued 0844 (Given - Provider: Herlinda Flores, RN)2100 (Given - Provider: Tosin Mcknight, OLIVIA) 09 (Given - Provider: Jazlyn Hahn, RN)203 (Given - Provider: Hazel Tadeo, OLIVIA) 0918 (Given - Provider: Keyla Trejo, OLIVIA) polyethylene glycoL (Miralax) packet 17 g (CANCELED) 17 g, Per NG tube, DAILY, First dose on Tue08/06/22 at 1115, Until Discontinued, Clamp ngt for 60 min when giving please, Routine 1237 (Given - Provider: Herlinda Flores, OLIVIA) polyethylene glycoL (Miralax) packet 17 g 17 g, Oral, DAILY, First dose (after last modification) on Tue08/07/22 at 0900, Until Discontinued, Clamp ngt for 60 min when giving please, Routine 0910 (Not Given - Provider: Jazlyn Hahn, OLIVIA - Reason: Patient/family refused) 0918 (Given - Provider: Keyla Trejo, OLIVIA) potassium chloride 10 mEq in sterile water 100 mL infusion (COMPLETED) 10 mEq, Intravenous, EVERY 2 HOURS, 2 doses, First dose on Tue08/06/22 at 1000, Last dose on Tue08/06/22 at 1200, Administer over 60 Minutes, Warning Vesicant/Irritant Medication 1114 (New Bag - Provider: Herlinda Flores RN)1159 (Stopped - Provider: Herlinda Flores, RN)1222 (New Bag - Provider: Herlinda Flores, RN)1322 (Stopped - Provider: Herlinda Flores, OLIVIA) QUEtiapine (SEROquel) tablet 100 mg 100 mg, Oral, NIGHTLY, First dose on Tue08/06/22 at 2100, Until Discontinued, Please clamp ngt for 60min while giving, Routine 2131 (Given - Provider: Tosin Mcknight, RN) 2040 (Given - Provider: Hazel Tadeo, RN) sodium chloride 0.9 % (flush) (BD PosiFlush Normal Saline 0.9) flush 5 mL 5 mL, Intravenous, 2 TIMES DAILY, First dose on Tue08/02/22 at 2100, Until Discontinued, Routine 0851 (Given - Provider: Herlinda Flores, RN)2134 (Given - Provider: Tosin Mcknight, RN) 09 (Given - Provider: Jazlyn Hahn, RN)2039 (Given - Provider: Hazel Tadeo, RN) 0927 (Given - Provider: Keyla Trejo, RN) sodium phosphates (FLEET) 19-7 gram/118 mL rectal enema 1 Bottle (COMPLETED) 1 Bottle, Rectal, ONCE, 1 dose, On Tue08/06/22 at 0815, Routine 1115 (Given - Provider: Herlinda Flores, RN) tiZANidine (Zanaflex) tablet 4 mg 4 mg, Oral, DAILY, First dose on 08/07/22 at 0930, Until Discontinued, Routine 09 (Given - Provider: Jazlyn Hahn, RN) 0919 (Given - Provider: Keyla Trejo, RN) Continuous Medication Order 08/06/2022 08/07/2022 08/08/2022 dextrose 5% and sodium chloride 0.9% with potassium chloride 20 mEq infusion (CANCELED) 100 mL/hr, Intravenous, CONTINUOUS, Starting on Tue08/06/22 at 0815, Until 08/07/22 at 0828 0840 (New Bag - Provider: Herlinda Flores, RN) 0451 (New Bag - Provider: Tosin Mcknight, OLIVIA)0910 (Stopped - Provider: Jazlyn Hahn, RN) HYDROmorphone (Dilaudid) (1 mg/mL) in sodium chloride 0.9% 50 mL C4 PLANNER infusion syringe (CANCELED) Intravenous, C4 PLANNER ONLY, Starting on Teresa 08/05/22 at 1200, Until 08/08/22 at 0739 1850 (New Syringe/Cartridge - Provider: Usha Rosario RN) 0739 (Stopped - Provider: Jazlyn Hahn, OLIVIA) PRN Medication Order 08/06/2022 08/07/2022 08/08/2022 cyclobenzaprine (Flexeril) tablet 5 mg 5 mg, Oral, 3 TIMES DAILY PRN, Starting on 08/07/22 at 0830, Until 08/08/22 at 1739, Muscle spasms, Routine ibuprofen (Advil) tablet 600 mg 600 mg, Oral, EVERY 6 HOURS PRN, Starting on 08/07/22 at 1940, Until 08/08/22 at 1739, Pain, Administer orally with milk or food to minimize GI irritation. Maximum dose of 3,200 mg from all sources in 24 hours, Routine ipratropium-albuteroL (Duoneb) 0.5 mg-3 mg(2.5 mg base)/3 mL nebulizer solution 3 mL 3 mL, Nebulization, EVERY 4 HOURS PRN, Starting on Tue08/03/22 at 1058, Until 08/08/22 at 1739, Wheezing, Routine lidocaine (Xylocaine) 1% (10 mg/mL) injection 3 mg 3 mg (0.3 mL), Subcutaneous, ONCE PRN, 1 dose, Starting on Tue08/02/22 at 1728, Until 08/08/22 at 1739, for discomfort with PIV insertion, Routine ondansetron (pf) (Zofran) (2 mg/mL) injection 4 mg 4 mg, Intravenous, EVERY 8 HOURS PRN, Starting on Teresa 08/05/22 at 0700, Until Tue08/08/22 at 1739, Nausea oxyCODONE (Roxicodone) tablet 10-15 mg(Linked Group 2) 10-15 mg, Oral, EVERY 4 HOURS PRN, Starting on 08/08/22 at 0738, Until 08/08/22 at 1739, Pain, severe pain (7-10), Initial dose 10mg. If pain control not adequate in 60 minutes, give additional 5mg., Routine 0919 (See Alternativ e - Provider: Keyla Trejo RN)1059 (See Alternative - Provider: Keyla M Maya, RN)1454 (See Alternative - Provider: Keyla Trejo RN) oxyCODONE (Roxicodone) tablet 5-10 mg(Linked Group 2) 5-10 mg, Oral, EVERY 4 HOURS PRN, Starting on 08/08/22 at 0738, Until 08/08/22 at 1739, Pain, moderate pain (4-6), Initial dose 5mg. If pain control not adequate in 60 minutes, give additional 5mg., Routine 0919 (Given - Provid er: Keyla Trejo RN)1059 (Given - Provider: Keyla Trejo RN - Comment: additional 5mg per order)1454 (Given - Provider: Keyla Trejo RN) senna-docusate (Pericolace) 8.6-50 mg per tablet 2 tablet 2 tablet, Oral, 2 TIMES DAILY PRN, Starting on 08/07/22 at 0818, Until 08/08/22 at 1739, Constipation, Routine 0911 (Given - Provider: Jazlyn Hahn RN) sodium chloride 0.9 % (flush) (BD PosiFlush Normal Saline 0.9) flush 5-20 mL 5-20 mL, Intravenous, EVERY 1 MIN PRN, Starting on 08/02/22 at 1728, Until 08/08/22 at 1739, flush, Flush pertains to all indwelling lines. Flush per protocol found in the job aid using the link provided on this medication record., Routine Linked Groups Order Group 1: nicotine (Nicoderm CQ) 21 mg/24 hr patch 21 mgJump to med 21 mg (1 patch), Transdermal, Administer over 24 Hours, DAILY, First dose (after last modification) on 08/08/22 at 1415, Until Discontinued, Apply new patch to clean, dry, hair-free skin on the upper body or upper outer arm; each patch should be applied to a different site. , Routine And nicotine (Nicoderm CQ) 21 mg/24 hr patch Patch VerificationJump to med Transdermal, 2 TIMES DAILY, First dose (after last modification) on 08/08/22 at 2100, Until Discontinued, Verify nicotine 21 mg/24 hr patch Group 2: oxyCODONE (Roxicodone) tablet 5-10 mgJump to med 5-10 mg, Oral, EVERY 4 HOURS PRN, Starting on 08/08/22 at 0738, Until 08/08/22 at 1739, Pain, moderate pain (4-6), Initial dose 5mg. If pain control not adequate in 60 minutes, give additional 5mg., Routine Or oxyCODONE (Roxicodone) tablet 10-15 mgJump to med 10-15 mg, Oral, EVERY 4 HOURS PRN, Starting on 08/08/22 at 0738, Until 08/08/22 at 1739, Pain, severe pain (7-10), Initial dose 10mg. If pain control not adequate in 60 minutes, give additional 5mg., Routine documented in this encounter Care Teams Pet Store Merchandiser Relationship Specialty Start Date End Date Lena Womack, JACKIE PCP - General Family Medicine 08/02/22 documented as of this encounter
--- OUTSIDE RECORDS SUMMARY | 2024-02-12 18:07 | XMS_ITS | Encounter Summary ---
[place] [address] [address] Team Prov[address] Care [address] Freight Brake Coupler Name Role Phone Lena Womack APRN Primary Care Provider [phone] Reason for Referral * Consultation (Urgent) - Closed Specialty Diagnoses / Procedures Referred By Contbyron t Referred To Contact Neurosurgery Diagnoses Herniation of lumbar intervertebral disc with radiculopathy Cervical disc disease with myelopathy Urinary retention Lena Womack APRN [address] [place] [address] [facility] [address] [place] [id number] Referral ID Status Reason Start Date Expiration Date V isits Requested Visits Authorized [id number] Closed Consult, Test & Treat PCP Updated and/or Approved 10/04/2022 10/04/2023 12 12 Encounter Details Date Type Department Care Team (Latest Contact Info) Description 10/04/2022 Transcribe Orders eDH Incoming Referrals [phone] Lena Womack APRN [address], [place] [id number] Herniation of lumbar intervertebral disc with radiculopathy; Cervical disc disease with myelopathy; Urinary retention Social History Tobacco Use Types Packs/Day Years [...] 03/07/2024 10:00 AM EDT Appointment XRay at [address] [place] [address] Tien Zurita MD [facility] [place] [address] 03/07/2024 10:40 AM EDT Office Visit Neurosurgery at [facility] [place] [phone] Angel Hankins PA [facility] [place] [address] Scheduled Referrals Name Type Priority Associated Diagnoses Orde r Schedule Referral to Neurosurgery Outpatient Referral Urgent Herniation of lumbar intervertebral disc with radiculopathy Cervical disc disease with myelopathy Urinary retention Ordered: 10/04/2022 documented as of this encounter Visit Diagnoses Diagnosis Herniation of lumbar intervertebral disc 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
--- OUTSIDE RECORDS SUMMARY | 2024-02-12 18:07 | XMS_ITS | Encounter Summary ---
Author Organization [facility] [place] [address] Care Team Providers Care Snow Removing Supervisor Name Role Phone BrunoLena eddy Ronal MEJIA Primary Care Provider [phone] Encounter Details Date Type Department Care Team (Late st Contact Info) Description 09/27/2022 Ancillary Procedure Radiology Library at [facility] [place] [id number] Tien Zurita MD [facility] [place] [address] Social History Tobacco Use Types Packs/Day Years [...] 03/07/2024 10:00 AM EDT Appointment XRay at [address] [place] [phone] Tien Zurita MD [facility] [place] [address] 03/07/2024 10:40 AM EDT Office [place] [address] Angel Hankins PA [facility] [place] [address] documented as of this encounter Procedures Procedure Name Priority Date/Time Associated Diagnosis Comments FILM LIBRARY STORAGE ONLY MR SPINE Routine 09/27/2022 12:00 AM EDT documented in this encounter Results * Film Library- Storage Only MR Spine (09/27/2022 12:00 AM EDT) Narrative [facility] [place] - 10/26/2022 10:17 PM EDT This exam is auto-finalizing. It's purpose is for storage only. Chauhan A Echt IMG FILM LIBRARY ORD ERABLES Performing Organization Address City/State/[facility] Co de Phone Number [place], [place] documented in this encounter Visit Diagnoses Not on filedocumented in this encounter Care Teams Snow Removing Supervisor Relationship Specialty Start Date End Date Lena Womack APRN PCP - General Family Medicine 08/02/22 documented as of this encounter
--- OUTSIDE RECORDS SUMMARY | 2024-02-12 18:07 | XMS_ITS | Encounter Summary ---
Author Organization Formerly [facility] [place] [address] Care Team Providers Care Actuarial Intern Name Role Phone Lena Womack Ronal MEJIA Primary Care Provider [phone] Encounter Details Date Type Department Care Team (Late st Contact Info) Description 09/25/2022 11:00 AM EDT Ancillary Procedure Radiology Library [place] [phone] Ridge Duenas MD [facility] [place] [address] Social History Tobacco Use Types Packs/Day Years [...] 03/07/2024 10:00 AM EDT Appointment XRay at [address] [place] [phone] Tien Zurita MD [facility] [place] [address] 03/07/2024 10:40 AM EDT Office [place] [address] Angel Hankins PA [facility] [place] [address] documented as of this encounter Procedures Procedure Name Priority Date/Time Associated Diagnosis Comments FILM LIBRARY STORAGE ONLY CT ABDOMEN AND PELVIS Routine 09/25/2022 10:56 AM EDT documented in this encounter Results * Film Library- Storage Only CT Abdomen & Pelvis (09/25/2022 10:56 AM EDT) Narrative [facility] - 09/25/2022 10:56 AM EDT This exam is auto-finalizing. It's purpose is for storage only. Ridge Duenas MD [facility] FILM LIBRARY ORD ERABLES Performing Organization Address City/State/[facility] Co de Phone Number [place], [place] documented in this encounter Visit Diagnoses Not on filedocumented in this encounter Care Teams Actuarial Intern Relationship Specialty Start Date End Date Lena Womack APRN PCP - General Family Medicine 08/02/22 documented as of this encounter
--- OUTSIDE RECORDS SUMMARY | 2024-02-12 18:07 | XMS_ITS | Encounter Summary ---
[place] [address] Care Team Providers Care Shingle Sawyer Name Role Phone Brunonunu Lena Nunu MEJIA Primary Care Provider [phone] Encounter Details Date Type Department Care Team (Latest Contact Info) Description 08/16/2022 11:00 AM EDT Clinical Support [place] [phone] Sury Madden, RN Encounter for staple removal Social History Tobacco Use Types Packs/Day Years [...] as of this encounter Progress Notes * Sury Madden RN - 08/16/2022 11:00 AM EDT Patient here for visit with Dr. Rojas and nurse staple removal. Dr. Rojas visualized the incision which does have some redness that does not appear to be due to infection, but rather irritation to her abdominal binder. No discharge, open areas, swelling, or warmth to incision. Patient's parminder removed without complications. Abdominal binder reapplied and patient ambulatory with walker out of the clinic. She denies any questions or concerns by the end of the appointment. documented in this encounter Plan of Treatment Upcoming Encounters Date Type Department Care Team (Late st Contact Info) Description 03/07/2024 10:00 AM EDT Appointment XRay at [address] [place] [address] Tien Zurita MD [facility] [address] 03/07/2024 10:40 AM EDT Office Visit Neurosurgery at [facility] [place] [phone] Angel Hankins PA [facility] [address] documented as of this encounter Visit Diagnoses Diagnosis Encounter for staple removal Encounter for removal of sutures documented in this encounter Care Teams Shingle Sawyer Relationship Specialty Start Date End Date Lena Womack APRN PCP - General Family Medicine 08/02/22 documented as of this encounter
--- OUTSIDE RECORDS SUMMARY | 2024-02-12 18:07 | XMS_ITS | Encounter Summary ---
Author Organization Formerly [facility] [place] [address] Care Team Providers Care Tooth Cutter Contact Wheel Name Role Phone Lena Womack APRN Primary Care Provider [phone] Reason for Visit * Reason Comments Extremity Weakness * Auth/Cert (Routine) Specialty Diagnoses / Procedures Referred By Cosmo t Referred To Contact Diagnoses Cervical myelopathy Procedures ER IPI Tien Zurita MD [facility] [place] [address] [place] [address] [facility] Referral ID Status Reason Start Date Expiration Date Visits Re quested Visits Authorized [id number] 1 1 Encounter Details Date Type Department Care Team (Late st Contact Info) Description 12/02/2022 1:00 PM EDT - 12/02/2022 5:45 PM EDT Surgery Main [place] [address] Tien Zurita MD [facility] [place] [address] @ARTHRODESIS, POSTERIOR CERVICAL SPINE (WRVU 17.4) Social History Tobacco Use Types Packs/Day Years [...] Sign Reading Time Taken Comments Blood Pressure 156/90 12/02/2022 5:45 PM EDT Pulse 85 12/02/2022 5:45 PM EDT Temperature 36.2 ??C (97.2 ??F) 12/02/2022 5:00 PM ED T Respiratory Rate 12 12/02/2022 5:45 PM EDT Oxygen Saturation 95% 12/02/2022 5:45 PM EDT Inhaled Oxygen Concentration - - Weight 104.3 kg (230 lb) 11/30/2022 7:44 PM EDT Height 166.4 cm (5' 5.5) 11/30/2022 [...] known to NSGY service; who presented to [facility] ED per recommendation from NSGY clinic with [...] services and deemed appropriate for discharge to [facility]. Patient was discharged in stable condition 12/16/22 [...] who have questions please contact the health lawn caretaker that requested your imaging first. Electronically signed by: Elizabeth Fishman MD, [facility] ([phone]), at 11/30/2022 9:[address] Thoracic Spine [...] who have questions please contact the health lawn caretaker that requested your imaging first. Electronically signed by: Elizabeth Fishman MD, [facility] ([phone]), at 12/01/2022 12:[address] Lumbar Spine [...] who have questions please contact the health lawn caretaker that requested your imaging first. Electronically signed by: Elizabeth Fishman MD, [facility] ([phone]), at 12/01/2022 12:53 AM MRI Cervical Spine [...] who have questions please contact the health lawn caretaker that requested your imaging first. Thoracic Spine wo Contrast (Generic) (Exam End: [...] who have questions please contact the health lawn caretaker that requested your imaging first. Lumbar Spine wo Contrast (Generic) (Exam End: [...] who have questions please contact the health lawn caretaker that requested your imaging first. Chest PA & Lateral (Generic) (Exam End: 12/01/2022 11:48 AM) Impression No acute findings. Thank you for letting us participate in the care of this patient. If you are a health care provider and have any questions regarding this report, please contact the number below. For patients who have questions please contact the health lawn caretaker that requested your imaging first. Cervical Spine 2 or 3 Views (Exam [...] who have questions please contact the health lawn caretaker that requested your imaging first. Pending Studies and Lab Data: NA Discharge Condition: Stable Discharge to: [facility] Future Appointments and Orders Future Appointments and Orders Future Appointments Provider Department Dept Phone 01/17/2023 1:40 PM Tien Zurita MD [facility] at [facility] Arrive at: [facility] 3D [phone] Future Orders Complete By Expires XR Cervical Spine 2 or 3 Views [16271 Custom] 01/08/2023 (Approximate) 07/10/2023 Process Instructions: Scheduling Instructions: Questions: Reason for exam and clinical history: s/p C4-T2 PSIF, C5-7 laminectomy Clinical information / wood questions for radiologist: Where will study be performed?: [facility] Radiology Portable exam?: Stat read required?: Date [...] anticoagulant, and non-steroidal anti-inflammatory (NSAIDs) drugs. Common hbub-tbu-whcifmh medications which should be avoided include Aspirin, [...] to pass. These medications can be obtained knwz-zkm-puygtur and their use is recommended on an [...] retention Constipation not relieved by diet and/or wymz-yya-uldhfpf stool softeners and laxatives Nausea/vomiting (upset stomach) [...] have tobacco dependence clinics in these locations: [facility] for Tobacco-Free Communities: [facility] Tobacco Treatment [place], [place] Other Programs at [facility] in [place] Living Free of Tobacco support group: For anyone who has quit tobacco or is considering quitting tobacco. [facility] Health Education Center, Level 4, [place] 3:30 to 4:30 p.m. on the tuesday of every month. Other Programs in the Area [facility] in [place] One-on-one counseling, hypnosis. Calista Lynch [facility] in [place], [place] One-on-one counseling, QuitLine, classes. Sailaja Palma [facility]: One-on-one counseling. All ages and incomes eligible. [facility]: Classes & support group. Surendra Owens [facility] in [place], [place] One-on-one counseling, QuitLine, classes, hypnosis therapy. Kaylee Trejo Information about Quitting Smoking and Tobacco See our Quitting Smoking - Information and Materials page (http://[email or web address].org/medical- information/smoking/information_on_quitting_smoking.html) for educational information about quitting smoking, downloadable smoking cessation materials, podcasts, websites, helplines, and more. FOLLOW UP PLAN: Future Appointments Date Time Provider Department Center 01/17/2023 1:40 PM Tien Zurita MD [facility] Pain Sp [facility] Incision: [x] Please follow up for staple removal approximately 2 weeks after the operation on 12/23 with yourPrimary Care Provider or with the Neurosurgery HAM SMOKER/RN. Your sutures/parminder may also be removed at rehab. Appointments: Please follow up in the Neurosurgery Clinic on 01/17/2023 at 1:40pm. Please call the Neurosurgery Office at [phone] if you do not receive a scheduled appointment within two weeks. Your follow-up appointment will be with: [] Dr. Krishna [] Dr. Snowden [x] Dr. Zurita [] Dr. Duenas [] Dr. Jacques [] Dr. Solis [] Associate Provider Follow-up Imaging: XR - Cervical HOW TO REACH NEUROSURGERY Office Hours: Tuesday through Tuesday, 8am-5pm. Call . On weekends or after office hours: Call [phone] and ask the special warfare operator to page the Neurosurgery Resident/Advanced Practice Provider manager simulation. Neurosurgery Providers Adult Neurosurgery Dr. Juan Duenas Pediatric Neurosurgery Dr. Calista Herrmann Advanced Practice Providers Daniela Troy, Nurse Practitioner (outpatient) Christina Pagan, Physician Manager Icu (inpatient/outpatient: neuro-oncology) Vikki Bowen, Physician Manager Icu (inpatient) Seb Yuen, Nurse Practitioner (outpatient: pediatric) Joan Kwon, Nurse Practitioner (outpatient: vascular) Elenita Nuñez Physician Manager Icu (outpatient: spine) Dioni Duong, Nurse Practitioner (inpatient/outpatient) Angel Hankins, Physician Manager Icu (outpatient) Outpatient Nurses Laura Womack MD 12/16/2022 [...] anticoagulant, and non-steroidal anti-inflammatory (NSAIDs) drugs. Common ohkl-geo-gqnfohn medications which should be avoided include Aspirin, [...] to pass. These medications can be obtained iqep-seq-jhlwiqa and their use is recommended on an [...] retention Constipation not relieved by diet and/or baeq-ani-rqgojkh stool softeners and laxatives Nausea/vomiting (upset stomach) [...] have tobacco dependence clinics in these locations: [place] [facility] for Tobacco-Free Communities: [facility] Tobacco Treatment [place], [place] Other Programs at [facility] in [place] Living Free of Tobacco support group: For anyone who has quit tobacco or is considering quitting tobacco. [facility] Health Education Center, Level 4, [place] 3:30 to 4:30 p.m. on the tuesday of every month. Other Programs in the Area [facility] in [place] One-on-one counseling, hypnosis. Calista Lynch [facility] in [place], [place] One-on-one counseling, QuitLine, classes. Sailaja Ceball[facility]owenblossom [facility]: One-on-one counseling. All ages and incomes eligible. [facility]: Classes & support group. Surendra Owens [facility] in [place], [place] One-on-one counseling, QuitLine, classes, hypnosis therapy. Kaylee Maya Information about Quitting Smoking and Tobacco See our Quitting Smoking - Information and Materials page (http://[email or web address]/medical- information/smoking/information_on_quitting_smoking.html) for educational information about quitting smoking, downloadable smoking cessation materials, podcasts, websites, helplines, and more. FOLLOW UP PLAN: Future Appointments Date Time Provider Department Center 01/17/2023 1:40 PM Tien Zurita MD [facility] Pain Sp [facility] Incision: [x] Please follow up for staple removal approximately 2 weeks after the operation on 12/23 with yourPrimary Care Provider or with the Neurosurgery HAM SMOKER/RN. Your sutures/parminder may also be removed at rehab. Appointments: Please follow up in the Neurosurgery Clinic on 01/17/2023 at 1:40pm. Please call the Neurosurgery Office at [phone] if you do not receive a scheduled appointment within two weeks. Your follow-up appointment will be with: [] Dr. Krishna [] Dr. Snowden [x] Dr. Zurita [] Dr. Duenas [] Dr. Jacques [] Dr. Solis [] Associate Provider Follow-up Imaging: XR - Cervical HOW TO REACH NEUROSURGERY Office Hours: Tuesday through Tuesday, 8am-5pm. Call . On weekends or after office hours: Call [phone] and ask the special warfare operator to page the Neurosurgery Resident/Advanced Practice Provider manager simulation. Neurosurgery Providers Adult Neurosurgery Dr. Juan Duenas Pediatric Neurosurgery Dr. Calista Herrmann Advanced Practice Providers Daniela Troy, Nurse Practitioner (outpatient) Christina Pagan, Physician Manager Icu (inpatient/outpatient: neuro-oncology) Vikki Bowen, Physician Manager Icu (inpatient) Seb Yuen, Nurse Practitioner (outpatient: pediatric) Joan Kwon, Nurse Practitioner (outpatient: vascular) Elenita Nuñez, Physician Manager Icu (outpatient: spine) Dioni Duong, Nurse Practitioner (inpatient/outpatient) Angel Hankins, Physician Manager Icu (outpatient) Outpatient Nurses Laura Loyd documented in [...] 12/16/2022 10:28 AM EDT Office of Care Management/Chiropractor Sole Practitioner Patient Name: Katheryn Carranza : 1960 Patient has been offered a SNF bed at [facility] for today, 12/16/22 Patient to transport to facility via private car around 12:00 No MD to MD report necessary Please call Nursing Report to , ask for cardiac care nurse. Info to accompany patient: Copies of Medication Administration Records and IV sheets for past 10 days. Plan: Chiropractor Sole Practitioner will be available to the patient and Heating Mechanic-RN and/or Social Workerfor further assistance. Patient will be discharged to: [facility] Jf Raphael Chiropractor Sole Practitioner * Ashley Kwon RN - 12/16/2022 10:18 AM EDTSummary: NOTE OF MEDICAL NECESSITY FOR AMBULANCE TRANSPORT Physician Certification Statement for Non-Emergency Ambulance Services Section I - General Information Katheryn Carranza 1960 Medicare Number: [id number] Transport Date: 12/16/22 (PCS is valid for round trips on this date and for all repetitive trips in the 60-day range as noted below.) Origin: [facility] Destination: [facility] Is the patient's stay covered under Medicare [...] wheelchair van (i.e. seated during transport, without medical biller coder or monitoring?): No 4) In addition to complete questions 1-3 above, please select any of the following conditions that apply: *Note: supporting documentation for any boxes checked must be maintained in the patient's medical records Moderate/severe pain on movement day care attendant required Unable to tolerate seated position [...] the Centers of Medicare and Medicaid Services ([facility]) to support the determination of medical necessity for ambulance services, and I represent that I have personal knowledge of the patient's condition at the time of transport. Ashley Kown RN 12/16/22 Form was electronically signed and [...] tolerated seated position for time of transport, medical biller coder required.. I have discussed Medicare/Private Insurance reimbursement guidelines for ambulance transport. I have also discussed need to accept the closest facility able to meet clinical care needs of patient. Patient/support system (name of individual)pt and verbalize understanding of their potential financial obligation and agree with ambulance transport. Ashley Kwon MSN-Ed, RN ACM registry rn Office of Care Management Pager #[phone] * Ashley Kwon RN - 12/16/2022 10:14 AM EDTSummary: [place] PASRR [facility] PRE-ASSESSMENT SCREENING AND RESIDENT REVIEW (PASRR): LEVEL [...] 1960 Where is the individual currently located? [facility] To which Nursing Facility is the individual seeking admission? [facility] Part A - Exemption If the individual [...] form must be completed by the admitting shelter in full and submitted. Part B - [...] a psychiatric disorder or substance use disorder? [place] YES if any of the subcategories below [...] yes, the individual is exempt from further [facility] Mental Health evaluation, even if they have been diagnosed and treated for a mental illness. If ALL the responses to question 1-3 in Part B are Yes, a Level II Mental Health PASRR evaluation is required. Please notify the PASRR Coordinator, [address] [place] [address] , or , or call . Part [...] the DDS PASRR coordinator, [address], [address] [place] [address] or FAX , or call Completed copies of this form have been distributed to: [facility] nursing facility Name & Title of Person Completing Form: Ashley Kwon RN Signature of Person Completing Form: Ashley Kwon MSN-Ed, RN ACM registry rn Office of Care Management Pager #[phone] Hospital/Facility Address: [address] [place] [address] Phone #: [phone] Email: [email or web address] Date: 12/16/22 Please mail or fax all original signed LEVEL I PASRR forms to: Department of Mental Health, Attn: PASRR Coordinator, [address] [place] [address], [address] [address] or * Sudeep Womack MD - 12/16/2022 5:06 AM EDT NEUROSURGERY PROGRESS NOTE PLEASE PAGE [phone] WITH QUESTIONS ID: Katheryn Carranza is a 62 y.o. female with CSM who presented with worsening weakness and urinary incontinence since a fall 4 days prior to presentation. HD# 16 12/02/22 Dr. Mirandat: C4-T2 PSIF, C5-7 laminectomies INTERVAL HX/ROS: No [...] drains GEN: NAD NEURO: Speech fluent MOTOR: RUE:10/08 LUE:10/08 RLE: 10/08 LLE: HF 4-/5, KE 5, [...] control -Diet: Regular diet. -Activity as tolerated. -PT/OT/HOUSE PAINTER : Anticipated Discharge Disposition (PT): detention facility, swing bed rehabilitation facility (12/14/22 1051)} -Dispo: MR for d/c Please page [phone] with questions/concerns for in-house NSGY patients Sudeep Womack MD 12/16/2022 * Louie Rosario MD - 12/15/2022 10:12 AM EDT NEUROSURGERY PROGRESS NOTE PLEASE PAGE [phone] WITH QUESTIONS ID: Katheryn Carranza is a [...] control -Diet: Regular diet. -Activity as tolerated. -PT/OT/HOUSE PAINTER : Anticipated Discharge Disposition (PT): detention facility, swing bed rehabilitation facility (12/14/22 1051)} -Dispo: MR for d/c Please page [phone] with questions/concerns for in-house NSGY patients MEDICATIONS: [...] Fall history: had a fall 4 days REPAIR DEPARTMENT MANAGER Precautions/Special Considerations: at risk to fall, SBP [...] the current findings, Anticipated Discharge Disposition (PT): detention facility, swing bed rehabilitation facility when medically [...] Physical Therapy: 46 (TE-F x 3) Gauri Villanueva, PT Pager: [phone] Physical Therapy Inpatient Rehabilitation Department * Lelia [...] C7-T1, T1-2 3. Bilateral posterior instrumentation, Medtronic Renkooity, with stereotactic navigation, C4-T2 4. Local autograft [...] and therapy goals Anticipated Discharge Disposition (OT): detention facility Equipment Recommendations: Equipment Needs Upon Discharge [...] Minutes, Occupational Therapy: 30 (2x schm) Pager: [phone] NALLELY Arriola Occupational Therapy Rehabilitation Department * Louie Rosario MD - 12/14/2022 7:02 AM EDT NEUROSURGERY PROGRESS NOTE PLEASE PAGE [phone] WITH QUESTIONS ID: Katheryn Carranza is a 62 y.o. female with CSM who presented with worsening weakness and urinary incontinence since a fall 4 days prior to presentation. HD# 14 12/02/22 Dr. Zurita: C4-T2 PSIF, C5-7 laminectomies [...] control -Diet: Regular diet. -Activity as tolerated. -PT/OT/HOUSE PAINTER : Anticipated Discharge Disposition (PT): detention facility, swing bed rehabilitation facility (12/09/22 5865)} -Dispo: MR for d/c Please page [phone] with questions/concerns for in-house NSGY patients MEDICATIONS: [...] scheduled for a follow up nutrition evaluation. Meteorological Engineer met with pt at bedside. Per documentation patient has excellent PO intakes recorded at 75-100% over the past 3 days. According to [employer] software they have ordered an average ~2671kcals/day within the same duration. Pt shares an okay appetite and eats all of their breakfast and less of their lunch and dinner d/t yucky entree's and being picky. Meteorological Engineer suggested adding afternoon snacks to help with afternoon hunger, pt agreed. Meteorological Engineer also informed pt of access to the [...] questions answered at this time Aimee Leung Log Rider * Caitlin Humphrey MSW - 12/13/2022 11:50 AM EDT ASSISTANT IMPORT MANAGER completed the Choices for Care [facility] long-term care Medicaid application with patient and spouse, Prieto. Application and financial verification given to LTC Chiropractor Sole Practitioner, Jade Valente to upload to Department [facility] Access (HA). Spouse has made two calls to his employer's HR department to see if they would be able to get patient's new [facility]'s ID member number and group number instead of waiting for new insurance cards to show up in their mail. Patient and family also requesting Ashley BAKER CM make a SNF referral to [facility], OLVIIA DONOHUE informed. ASSISTANT IMPORT MANAGER to continue to provide psychosocial supports for patient and family if/when needed. * Ashley Kwon RN - 12/13/2022 11:07 AM EDT Pt/family would like to expand the search for SNF to include: [facility] [place] [facility] [address] [place] [address] P: [phone] F: [phone] LYUDMILA: 12/13/22 Ashley Kwon MSN-Ed, RN ACM registry rn Office of Care Management Pager #[phone] * Louie Rosario MD - 12/13/2022 7:00 AM EDT NEUROSURGERY PROGRESS NOTE PLEASE PAGE [phone] WITH QUESTIONS ID: Katheryn Carranza is a 62 y.o. female with CSM who presented with worsening weakness and urinary incontinence since a fall 4 days prior to presentation. HD# 13 12/02/22 Dr. Mirandat: C4-T2 PSIF, C5-7 laminectomies [...] control -Diet: Regular diet. -Activity as tolerated. -PT/OT/HOUSE PAINTER : Anticipated Discharge Disposition (PT): detention facility, swing bed rehabilitation facility (12/09/22 8427)} -Dispo: MR for d/c Please page [phone] with questions/concerns for in-house NSGY patients MEDICATIONS: [...] AM EDT NEUROSURGERY PROGRESS NOTE PLEASE PAGE [phone] WITH QUESTIONS ID: Katheryn Carranza is a 62 y.o. female with CSM who presented with worsening weakness and urinary incontinence since a fall 4 days prior to presentation. HD# 12 12/02/22 Dr. Zurita: C4-T2 PSIF, C5-7 laminectomies [...] -Macrobid x 5d for UTI started 12/04 -PT/OT/HOUSE PAINTER : Anticipated Discharge Disposition (PT): detention facility, swing bed rehabilitation facility (12/09/22 0832)} -Dispo: MR for d/c Please page [phone] with questions/concerns for in-house NSGY patients MEDICATIONS: [...] [phone] From Submitter: Sapphire Crawford Urgency Level: FYI Callback Number: [phone] The following Message was sent: [I] - Callback:[phone] [place] - just an fyi, pt HR has been resting >100 frequently over past 48hr. - Sapphire Crawford The following status was returned from the artillery or naval gunfire observer: Page for [phone] successfully sent to [phone] having status of [...] MD aware. Pt needy and very frequently manager simulation lange multiple times an hour, also requests pain meds frequently. OOB with all meals, and most of day, must be encouraged and firm with this per team. No purewick per team, continue maximizing her independence. PLAN MOVING FORWARD: Q4VS Q4NC Encourage OOB Pain control Placement * Seb Abernathy PA - 12/11/2022 5:19 AM EDT NEUROSURGERY PROGRESS NOTE PLEASE PAGE [phone] WITH QUESTIONS ID: Katheryn Carranza is a [...] -Must encourage mobilization with PTOT and nursing -PT/OT/HOUSE PAINTER : Anticipated Discharge Disposition (PT): detention facility, swing bed rehabilitation facility (12/09/22 0323)} Please page [phone] with questions/concerns for in-house NSGY patients IMAGING: [...] who have questions please contact the health lawn caretaker that requested your imaging first. Electronically signed by: Elizabeth Fishman MD, [facility] ([phone]), at 11/30/2022 9:[address] Thoracic Spine [...] who have questions please contact the health lawn caretaker that requested your imaging first. Electronically signed by: Elizabeth Fishman MD, [facility] ([phone]), at 12/01/2022 12:[address] Lumbar Spine [...] who have questions please contact the health lawn caretaker that requested your imaging first. Electronically signed by: Elizabeth Fishman MD, [facility] ([phone]), at 12/01/2022 12:53 AM MRI Cervical Spine [...] who have questions please contact the health lawn caretaker that requested your imaging first. Thoracic Spine wo Contrast (Generic) (Exam End: [...] who have questions please contact the health lawn caretaker that requested your imaging first. Lumbar Spine wo Contrast (Generic) (Exam End: [...] who have questions please contact the health lawn caretaker that requested your imaging first. Chest PA & Lateral (Generic) (Exam End: 12/01/2022 11:48 AM) Impression No acute findings. Thank you for letting us participate in the care of this patient. If you are a health care provider and have any questions regarding this report, please contact the number below. For patients who have questions please contact the health lawn caretaker that requested your imaging first. Cervical Spine 2 or 3 Views (Exam [...] who have questions please contact the health lawn caretaker that requested your imaging first. CATIONS: Scheduled Meds: Continuous Infusions: PRN Meds: Vitals: [...] Humphrey MSW - 12/10/2022 10:44 AM EDT ASSISTANT IMPORT MANAGER met with patient and spouse, Prieto Carranza and began the [place] long-term care Medicaid application ~Choices for Care. Spouse to bring in the last of the needed financial verification documentation this evening and once received, ASSISTANT IMPORT MANAGER will give completed application to the Office of Care Management ~[facility] Medicaid Chiropractor Sole Practitioner to upload to the Department of [facility] ([facility]). Patient also signed an authorized technical sales representative form naming her spouse as her authorized rep. ASSISTANT IMPORT MANAGER to follow up with patient and spouse and complete long-term care Medicaid application. ASSISTANT IMPORT MANAGER did contact the Department of Aging & Independent Living (TONI) state nurse, Sylvia Lerma RN, [facility]: [phone], who is the clinical nurse that will qualify this patient physically for this program, to let her know of patient's pending application. ASSISTANT IMPORT MANAGER also informed her of patient'schoice of a CM agency: [facility]. * Louie Rosario MD - 12/10/2022 9:31 AM EDT NEUROSURGERY PROGRESS NOTE PLEASE PAGE [phone] WITH QUESTIONS ID: Katheryn Carranza is a [...] -Macrobid x 5d for UTI started 12/04 -PT/OT/HOUSE PAINTER : Anticipated Discharge Disposition (PT): detention facility, swing bed rehabilitation facility (12/09/22 1417)} Please page [phone] with questions/concerns for in-house NSGY patients IMAGING: [...] who have questions please contact the health lawn caretaker that requested your imaging first. Electronically signed by: Elizabeth Fishman MD, [facility] ([phone]), at 11/30/2022 9:[address] Thoracic Spine [...] who have questions please contact the health lawn caretaker that requested your imaging first. Electronically signed by: Elizabeth Fishman MD, [facility] ([phone]), at 12/01/2022 12:[address] Lumbar Spine [...] who have questions please contact the health lawn caretaker that requested your imaging first. Electronically signed by: Elizabeth Fishman MD, [facility] ([phone]), at 12/01/2022 12:53 AM MRI Cervical Spine [...] who have questions please contact the health lawn caretaker that requested your imaging first. Thoracic Spine wo Contrast (Generic) (Exam End: [...] who have questions please contact the health lawn caretaker that requested your imaging first. Lumbar Spine wo Contrast (Generic) (Exam End: [...] who have questions please contact the health lawn caretaker that requested your imaging first. Chest PA & Lateral (Generic) (Exam End: 12/01/2022 11:48 AM) Impression No acute findings. Thank you for letting us participate in the care of this patient. If you are a health care provider and have any questions regarding this report, please contact the number below. For patients who have questions please contact the health lawn caretaker that requested your imaging first. Cervical Spine 2 or 3 Views (Exam [...] who have questions please contact the health lawn caretaker that requested your imaging first. CATIONS: Scheduled Meds: Continuous Infusions: PRN Meds: Vitals: [...] least 4-6 hours per day. * Lelia Carballo OTA - 12/10/2022 9:05 AM EDT Occupational Therapy [...] bending/lifting/twisting, fall Interval History: ERICA S: I can't believe this pain. O: [...] was aware though failed tocommunicate to staff design engineer, education provided on importance of calling for assist in the future to insure skin protection. 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 Total Minutes, Physical Therapy: 57 (2031-6924) Billing Code: TEFx4 Kenyon Patrick PTA Pager: [phone] Physical Therapy Inpatient Rehabilitation Department * Louie Rosario MD - 12/09/2022 6:55 AM EDT NEUROSURGERY PROGRESS NOTE PLEASE PAGE [phone] WITH QUESTIONS ID: Katheryn Carranza is a [...] -Macrobid x 5d for UTI started 12/04 -PT/OT/HOUSE PAINTER : Anticipated Discharge Disposition (PT): detention facility, swing bed rehabilitation facility, acute rehabilitation facility (12/06/22 1035)} Please page [phone] with questions/concerns for in-house NSGY patients IMAGING: [...] who have questions please contact the health lawn caretaker that requested your imaging first. Electronically signed by: Elizabeth Fishman MD, [facility] ([phone]), at 11/30/2022 9:[address] Thoracic Spine [...] who have questions please contact the health lawn caretaker that requested your imaging first. Electronically signed by: Elizabeth Fishman MD, [facility] ([phone]), at 12/01/2022 12:[address] Lumbar Spine [...] who have questions please contact the health lawn caretaker that requested your imaging first. Electronically signed by: Elizabeth Fishman MD, [facility] ([phone]), at 12/01/2022 12:53 AM MRI Cervical Spine [...] who have questions please contact the health lawn caretaker that requested your imaging first. Thoracic Spine wo Contrast (Generic) (Exam End: [...] who have questions please contact the health lawn caretaker that requested your imaging first. Lumbar Spine wo Contrast (Generic) (Exam End: [...] who have questions please contact the health lawn caretaker that requested your imaging first. Chest PA & Lateral (Generic) (Exam End: 12/01/2022 11:48 AM) Impression No acute findings. Thank you for letting us participate in the care of this patient. If you are a health care provider and have any questions regarding this report, please contact the number below. For patients who have questions please contact the health lawn caretaker that requested your imaging first. Cervical Spine 2 or 3 Views (Exam [...] who have questions please contact the health lawn caretaker that requested your imaging first. CATIONS: Scheduled Meds: Continuous Infusions: PRN Meds: Vitals: [...] Patient screened for hospital length of stay. Meteorological Engineer attempted to visit patient but was unable [...] unless consulted in the interim. Myla Goldman [phone] * Ashley Kwon RN - 12/08/2022 2:13 PM EDT Based on discussions with the multi-disciplinary healthcare team, the patient would benefit from SNF level of care at discharge. I have met with the patient to: discuss discharge planning needs. provide the [facility], Office of Care Management letter from the Separator Inserter pertaining to rehab referrals. provide a letter describing our affiliations within the [facility] and educate about their right to choose where referrals are sent. provide the CMS Star Quality Rating handout. review the different levels of rehab including SNF, swing, and acute. provide a list of facilities within their preferred geographic area. request that they provide at least three choices for referral. They have requested referrals to: [facility] [address] [address] [facility] ([facility]) [address], [place] [id number] [facility] ([facility]) [address] [place] [address] [phone] LYUDMILA: 12/08/22 Does patient have COVID vaccine card: Yes; Copy obtained: No Note routed to a Chiropractor Sole Practitioner who will communicate referrals to facilities and provide any required information. Ashley Kwon MSN-Ed, RN ACM registry rn Office of Care Management Pager #[phone] * Lelia Carballo OTA - 12/08/2022 10:05 [...] minimize bending/lifting/twisting, fall Interval History: NAEON S: How much do you want me [...] was aware though failed tocommunicate to staff design engineer, education provided on importance of calling for [...] and therapy goals Anticipated Discharge Disposition (OT): detention facility Equipment Recommendations: Equipment Needs Upon Discharge [...] Minutes, Occupational Therapy: 25 (2x schm) Pager: [phone] NALLELY Arriola Occupational Therapy Rehabilitation Department * Louie Rosario MD - 12/08/2022 6:47 AM EDT NEUROSURGERY PROGRESS NOTE PLEASE PAGE [phone] WITH QUESTIONS ID: Katheryn Carranza is a [...] -Macrobid x 5d for UTI started 12/04 -PT/OT/HOUSE PAINTER : Anticipated Discharge Disposition (PT): detention facility, swing bed rehabilitation facility, acute rehabilitation facility (12/06/22 1035)} Please page [phone] with questions/concerns for in-house NSGY patients IMAGING: [...] who have questions please contact the health lawn caretaker that requested your imaging first. Electronically signed by: Elizabeth Fishman MD, [facility] ([phone]), at 11/30/2022 9:[address] Thoracic Spine [...] who have questions please contact the health lawn caretaker that requested your imaging first. Electronically signed by: Elizabeth Fishman MD, [facility] ([phone]), at 12/01/2022 12:[address] Lumbar Spine [...] who have questions please contact the health lawn caretaker that requested your imaging first. Electronically signed by: Elizabeth Fishman MD, [facility] ([phone]), at 12/01/2022 12:53 AM MRI Cervical Spine [...] who have questions please contact the health lawn caretaker that requested your imaging first. Thoracic Spine wo Contrast (Generic) (Exam End: [...] who have questions please contact the health lawn caretaker that requested your imaging first. Lumbar Spine wo Contrast (Generic) (Exam End: [...] who have questions please contact the health lawn caretaker that requested your imaging first. Chest PA & Lateral (Generic) (Exam End: 12/01/2022 11:48 AM) Impression No acute findings. Thank you for letting us participate in the care of this patient. If you are a health care provider and have any questions regarding this report, please contact the number below. For patients who have questions please contact the health lawn caretaker that requested your imaging first. Cervical Spine 2 or 3 Views (Exam [...] who have questions please contact the health lawn caretaker that requested your imaging first. CATIONS: Scheduled Meds: Continuous Infusions: PRN Meds: Vitals: [...] AM EDT NEUROSURGERY PROGRESS NOTE PLEASE PAGE [phone] WITH QUESTIONS ID: Katheryn Carranza is a [...] -Macrobid x 5d for UTI started 12/04 -PT/OT/HOUSE PAINTER : Anticipated Discharge Disposition (PT): detention facility, swing bed rehabilitation facility, acute rehabilitation facility (12/06/22 1035)} -DISPOSITION: pending course -FULL CODE Please page [phone] with questions/concerns for in-house NSGY patients IMAGING: [...] who have questions please contact the health lawn caretaker that requested your imaging first. Electronically signed by: Elizabeth Fishman MD, [facility] ([phone]), at 11/30/2022 9:[address] Thoracic Spine [...] who have questions please contact the health lawn caretaker that requested your imaging first. Electronically signed by: Elizabeth Fishman MD, [facility] ([phone]), at 12/01/2022 12:[address] Lumbar Spine [...] who have questions please contact the health lawn caretaker that requested your imaging first. Electronically signed by: Elizabeth Fishman MD, [facility] ([phone]), at 12/01/2022 12:53 AM MRI Cervical Spine [...] who have questions please contact the health lawn caretaker that requested your imaging first. Thoracic Spine wo Contrast (Generic) (Exam End: [...] who have questions please contact the health lawn caretaker that requested your imaging first. Lumbar Spine wo Contrast (Generic) (Exam End: [...] who have questions please contact the health lawn caretaker that requested your imaging first. Chest PA & Lateral (Generic) (Exam End: 12/01/2022 11:48 AM) Impression No acute findings. Thank you for letting us participate in the care of this patient. If you are a health care provider and have any questions regarding this report, please contact the number below. For patients who have questions please contact the health lawn caretaker that requested your imaging first. Cervical Spine 2 or 3 Views (Exam [...] who have questions please contact the health lawn caretaker that requested your imaging first. 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 Time IN / OUT: 3810-5666 Total Minutes, Physical Therapy: 28 Billing Code: 2 GAVIN Dickens DPT Pager: [phone] Physical Therapy Inpatient Rehabilitation Department * Tien Zurita MD - 12/06/2022 7:28 AM EDT NEUROSURGERY PROGRESS NOTE PLEASE PAGE [phone] WITH QUESTIONS ID: Katheryn Carranza is a [...] -Macrobid x 5d for UTI started 12/04 -PT/OT/HOUSE PAINTER : Anticipated Discharge Disposition (PT): detention facility (12/04/22 1010)} -DISPOSITION: pending course -FULL CODE Please page [phone] with questions/concerns for in-house NSGY patients IMAGING: [...] who have questions please contact the health lawn caretaker that requested your imaging first. Electronically signed by: Elizabeth Fishman MD, [facility] ([phone]), at 11/30/2022 9:[address] Thoracic Spine [...] who have questions please contact the health lawn caretaker that requested your imaging first. Electronically signed by: Elizabeth Fishman MD, [facility] ([phone]), at 12/01/2022 12:[address] Lumbar Spine [...] who have questions please contact the health lawn caretaker that requested your imaging first. Electronically signed by: Elizabeth Fishman MD, [facility] ([phone]), at 12/01/2022 12:53 AM MRI Cervical Spine [...] who have questions please contact the health lawn caretaker that requested your imaging first. Thoracic Spine wo Contrast (Generic) (Exam End: [...] who have questions please contact the health lawn caretaker that requested your imaging first. Lumbar Spine wo Contrast (Generic) (Exam End: [...] who have questions please contact the health lawn caretaker that requested your imaging first. Chest PA & Lateral (Generic) (Exam End: 12/01/2022 11:48 AM) Impression No acute findings. Thank you for letting us participate in the care of this patient. If you are a health care provider and have any questions regarding this report, please contact the number below. For patients who have questions please contact the health lawn caretaker that requested your imaging first. Cervical Spine 2 or 3 Views (Exam [...] who have questions please contact the health lawn caretaker that requested your imaging first. CATIONS: Scheduled Meds: Continuous Infusions: PRN Meds: Vitals: [...] AM EDT NEUROSURGERY PROGRESS NOTE PLEASE PAGE [phone] WITH QUESTIONS ID: Katheryn Carranza is a [...] -Macrobid x 5d for UTI started 12/04 -PT/OT/HOUSE PAINTER : Anticipated Discharge Disposition (PT): detention facility (12/04/22 1010)} -DISPOSITION: pending course -FULL CODE Please page [phone] with questions/concerns for in-house NSGY patients IMAGING: [...] who have questions please contact the health lawn caretaker that requested your imaging first. Electronically signed by: Elizabeth Fishman MD, [facility] ([phone]), at 11/30/2022 9:[address] Thoracic Spine [...] who have questions please contact the health lawn caretaker that requested your imaging first. Electronically signed by: Elizabeth Fishman MD, [facility] ([phone]), at 12/01/2022 12:[address] Lumbar Spine [...] who have questions please contact the health lawn caretaker that requested your imaging first. Electronically signed by: Elizabeth Fishman MD, [facility] ([phone]), at 12/01/2022 12:53 AM MRI Cervical Spine [...] who have questions please contact the health lawn caretaker that requested your imaging first. Thoracic Spine wo Contrast (Generic) (Exam End: [...] who have questions please contact the health lawn caretaker that requested your imaging first. Lumbar Spine wo Contrast (Generic) (Exam End: [...] who have questions please contact the health lawn caretaker that requested your imaging first. Chest PA & Lateral (Generic) (Exam End: 12/01/2022 11:48 AM) Impression No acute findings. Thank you for letting us participate in the care of this patient. If you are a health care provider and have any questions regarding this report, please contact the number below. For patients who have questions please contact the health lawn caretaker that requested your imaging first. Cervical Spine 2 or 3 Views (Exam [...] who have questions please contact the health lawn caretaker that requested your imaging first. CATIONS: Scheduled Meds: Continuous Infusions: PRN Meds: Vitals: Temp: [36.4 ??C (97.5 ??F)-37.3 ??C (99.1 ??F)] Heart Rate: -- Resp: [17-18] BP: (140-169)/(87-98) SpO2: [92 %-96 %] Heart Rate from SpO2: [90 bpm-111 bpm] BMI: Weight: 104.3 kg (230 lb) (11/30/221943) BMI (Calculated): 37.69 BMI Classification: Obese I/O: I/O last 3 completed shifts: In: 2462 [P.O.:2462] Out: 5788 [Urine:5531; Other:257] LABS: Recent Labs 12/04/22 0625 12/03/22 0836 12/02/22 0659 WBC 9.2 11.2* 7.4 HGB 11.7 12.1 12.7 PLATELET 251 266 243 Recent Labs 12/04/22 0625 12/03/22 0836 12/02/22 0659 NA 138 139 138 [...] Barkley Urgency Level: Call Me Callback Number: [phone] The following Message was sent: [Call Me] - Callback:[phone] Dillon, D. c/o headache 10/10, canI give Tylenol 3, and Toradol? - Lissette Barkley Pt reports 10/10 pain The pain is moving up into my head. Pt states prior relief with Tylenol 3 and Toradol IV, at the same time. Per AUG order, verifying best option with MD. Neuro check finds no changes from prior assessment. Oxycodone given prior. Continue to monitor and support patient. * Diane Peña RN - 12/04/2022 6:30 PM EDT Katheryn Carranza transferred to room 522. Report called to Naomi. BAKER. All belongings and medications sent with patient. [...] 4 days prior to presentation. 12/02/22 Dr. Mirandat: C4-T2 PSIF, C5-7 laminectomies Patient with the [...] 0.3) performed by Tien Zurita MD at [facility] MAIN OR PRO ALLOGRAFT FOR SPINE SURGERY ONLY MORSELIZED N/A 12/02/2022 ALLOGRAFT FOR SPINE SURGERY ONLY; MORSELIZED (WRVU *) performed by Tien Zurita MD at [facility] MAIN OR PRO ARTHRODESIS POSTERIOR/PSTLAT TECH 1 INTERSPACE LUMBAR, EA ADD'L INTERSPACE N/A 12/02/2022 ARTHRODESIS, POSTERIOR VERTEBRAL EA.ADD. SEGMENT (WRVU 6.43) performed by Tien Zurita MD at [facility] MAIN OR PRO ARTHRODESIS, POST/POSTEROLAT TQ, SNGLE INTERSPACE; CERVICAL BELOW C2 SEGMNT N/A 12/02/2022 @ARTHRODESIS, POSTERIOR CERVICAL SPINE (WRVU 17.4) performed by Tien Zurita MD at [facility] MAIN OR PRO AUTOGRAFT SPINE SURGERY LOCAL FROM SAME INCISION N/A 12/02/2022 AUTOGRAFT FOR SPINE SURGERY ONLY, SAME INCISION (WRVU *) performed by Tien Zurita MD at [facility] MAIN OR PRO BREAST REDUCTION 12/09/2011 REDUCTION MAMMOPLASTY, CHRISTIAN performed by DEMETRA SOMMERS at [facility] MAIN OR PRO LAMINEC/FACETECT/FORAMIN, CERVICAL 1 SEG N/A 12/02/2022 LAMINECTOMY, FACETECTOMY & FORAMINOTOMY, CX, ONE LEVEL (WRVU 17.95) performed by Tien Zurita MD at [facility] MAIN OR PRO LAP, DIAGNOSTIC ABDOMEN Left 08/02/2022 LAPAROSCOPY, DIAGNOSTIC, ABDOMEN (WRVU 5.14) performed by Antonio Rojas MD at [facility] MAIN OR PRO POSTERIOR SEGMENTAL INSTRUMENTATION 3-6 VRT SEG N/A 12/02/2022 POST SPINAL INSTRUMENTATION, 3-6 VERTEBRA, NON SEGMENTAL (WRVU 12.56) performed by Tien Zurita MD at [facility] MAIN OR PRO REMOVAL OF OVARY/TUBE(S) Left 08/02/2022 @SALPINGO-OOPHORECTOMY, UNILATERAL OR CHRISTIAN (WRVU 12.16) performed by Antonio Rojas MD at [facility] MAIN OR PRO STEROTACTIC CPTR ASSTD PX SPINAL N/A 12/02/2022 STEREOTACTIC COMPUTER-ASSTD NAVIGATIONAL SPINAL (WRVU 3.75) [facility] UPPER GI ENDOSCOPY, DIAGNOSTIC N/A 08/05/2022 EGD, UPPER GI ENDOSCOPY performed by Donnie Obrien MD at [facility] ENDOSCOPY Social History: Home set-up: Pt lives [...] Fall history: 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 [...] outlined inthis evaluation. Time IN / OUT: 5762-8823 Total Minutes, Physical Therapy: 20 Billing Code: mod complexity eval Fifi Park PT Pager: [phone] Physical Therapy Inpatient Rehabilitation Department * Jackie Pagan MD - 12/04/2022 6:14 AM EDT NEUROSURGERY PROGRESS NOTE PLEASE PAGE [phone] WITH QUESTIONS ID: Katheryn Carranza is a 62 y.o. female with CSM who presented with worsening weakness and urinary incontinence since a fall 4 days prior to presentation. HD# 4 POD # 2 Days Post-Op 12/02/22 Dr. Mirandat: C4-T2 PSIF, C5-7 laminectomies INTERVAL HX/ROS: -MICHAEL -Fournier removed and voiding, tolerating PO, has not yet been OOB -Postop XR done -C/f pain medications from home found in patient's bed overnight, pending review/search EXAM: MAANN x 1 = 190cc, SS GEN:Middle aged [...] POD1 -activity as tolerated. -Monitor MANAN output -PT/OT/HOUSE PAINTER : } -DISPOSITION: pending course -FULL CODE Please page [phone] with questions/concerns for in-house NSGY patients IMAGING: [...] who have questions please contact the health lawn caretaker that requested your imaging first. Electronically signed by: Elizabeth Fishman MD, [facility] ([phone]), at 11/30/2022 9:[address] Thoracic Spine [...] who have questions please contact the health lawn caretaker that requested your imaging first. Electronically signed by: Elizabeth Fishman MD, [facility] ([phone]), at 12/01/2022 12:[address] Lumbar Spine [...] who have questions please contact the health lawn caretaker that requested your imaging first. Electronically signed by: Elizabeth Fishman MD, [facility] ([phone]), at 12/01/2022 12:53 AM MRI Cervical Spine [...] who have questions please contact the health lawn caretaker that requested your imaging first. Thoracic Spine wo Contrast (Generic) (Exam End: [...] who have questions please contact the health lawn caretaker that requested your imaging first. Lumbar Spine wo Contrast (Generic) (Exam End: [...] who have questions please contact the health lawn caretaker that requested your imaging first. Chest PA & Lateral (Generic) (Exam End: 12/01/2022 11:48 AM) Impression No acute findings. Thank you for letting us participate in the care of this patient. If you are a health care provider and have any questions regarding this report, please contact the number below. For patients who have questions please contact the health lawn caretaker that requested your imaging first. Cervical Spine 2 or 3 Views (Exam [...] who have questions please contact the health lawn caretaker that requested your imaging first. CATIONS: Scheduled Meds: Continuous Infusions: PRN Meds: Vitals: Temp: [36.6 ??C (97.9 ??F)-36.9 ??C (98.4 ??F)] Heart Rate: -- Resp: [16-18] BP: (152-156)/(90-93) SpO2: [93 %-95 %] Heart Rate from SpO2: [80 bpm-92 bpm] BMI: Weight: 104.3 kg (230 lb) (11/30/22 194) BMI (Calculated): 37.69 BMI Classification: Obese I/O: I/O last 3 completed shifts: In: 3683.3 [P.O.:1650; I.V.:2032.3] Out: 6320 [Urine:5745; Other:375; Blood:200] LABS: Recent [...] x4, VSS, afebrile. Patient reports pain improving. MAANN emptied and output recorded. Relying on 2 [...] Humphrey MSW - 12/03/2022 2:21 PM EDT ASSISTANT IMPORT MANAGER received a consult to support patient who has no health insurance. ASSISTANT IMPORT MANAGER met with patient who states she was at [facility] in July 2022 and Jorgito helped her to apply for [place] Medicaid, but she was over-incomed and denied. She now has $50k+ in medical bills at [facility] in addition to medical bills from [facility]. She would like to apply for [place] again doing a ???spenddown?? and complete a [facility] Financial Assistance Application to help with these past due bills. A referral has been sent to Jorgito Membreno to follow up with this need/request. Ashley BAKER CM and CM Managers informed. * Jackie Pagan MD - 12/03/2022 9:28 AM EDT NEUROSURGERY PROGRESS NOTE PLEASE PAGE [phone] WITH QUESTIONS ID: Katheryn Carranza is a [...] tolerated. -Monitor MANAN output -Remove fournier, DTV -PT/OT/HOUSE PAINTER : } -DISPOSITION: pending course -FULL CODE Please page [phone] with questions/concerns for in-house NSGY patients IMAGING: [...] who have questions please contact the health lawn caretaker that requested your imaging first. Electronically signed by: Elizabeth Fishman MD, [facility] ([phone]), at 11/30/2022 9:[address] Thoracic Spine [...] who have questions please contact the health lawn caretaker that requested your imaging first. Electronically signed by: Elizabeth Fishman MD, [facility] ([phone]), at 12/01/2022 12:[address] Lumbar Spine [...] who have questions please contact the health lawn caretaker that requested your imaging first. Electronically signed by: Elizabeth Fishman MD, [facility] ([phone]), at 12/01/2022 12:53 AM MRI Cervical Spine [...] who have questions please contact the health lawn caretaker that requested your imaging first. Thoracic Spine wo Contrast (Generic) (Exam End: [...] who have questions please contact the health lawn caretaker that requested your imaging first. Lumbar Spine wo Contrast (Generic) (Exam End: [...] who have questions please contact the health lawn caretaker that requested your imaging first. Chest PA & Lateral (Generic) (Exam End: 12/01/2022 11:48 AM) Impression No acute findings. Thank you for letting us participate in the care of this patient. If you are a health care provider and have any questions regarding this report, please contact the number below. For patients who have questions please contact the health lawn caretaker that requested your imaging first. CATIONS: Scheduled Meds: Continuous Infusions: PRN Meds: Vitals: [...] PM EDT NEUROSURGERY PROGRESS NOTE PLEASE PAGE [phone] WITH QUESTIONS ID: Katheryn Carranza is a [...] antiplatelet -activity as tolerated. -Monitor MANAN output -PT/OT/HOUSE PAINTER : } -DISPOSITION: pending course -FULL CODE Please page [phone] with questions/concerns for in-house NSGY patients IMAGING: [...] who have questions please contact the health lawn caretaker that requested your imaging first. Electronically signed by: Elizabeth Fishman MD, [facility] ([phone]), at 11/30/2022 9:[address] Thoracic Spine [...] who have questions please contact the health lawn caretaker that requested your imaging first. Electronically signed by: Elizabeth Fishman MD, [facility] ([phone]), at 12/01/2022 12:[address] Lumbar Spine [...] who have questions please contact the health lawn caretaker that requested your imaging first. Electronically signed by: Elizabeth Fishman MD, [facility] ([phone]), at 12/01/2022 12:53 AM MRI Cervical Spine [...] who have questions please contact the health lawn caretaker that requested your imaging first. Thoracic Spine wo Contrast (Generic) (Exam End: [...] who have questions please contact the health lawn caretaker that requested your imaging first. Lumbar Spine wo Contrast (Generic) (Exam End: [...] who have questions please contact the health lawn caretaker that requested your imaging first. Chest PA & Lateral (Generic) (Exam End: 12/01/2022 11:48 AM) Impression No acute findings. Thank you for letting us participate in the care of this patient. If you are a health care provider and have any questions regarding this report, please contact the number below. For patients who have questions please contact the health lawn caretaker that requested your imaging first. CATIONS: Scheduled Meds: Continuous Infusions: PRN Meds: Vitals: Temp: [36.2 ??C (97.2 ??F)-36.9 ??C (98.4 ??F)] Heart Rate: [85-89] Resp: [-] BP: (107-167)/(68-100) SpO2: [75 %-100 %] Heart [...] Humphrey MSW - 12/02/2022 9:03 AM EDT ASSISTANT IMPORT MANAGER received a consult to support patient in completing a [place] Directive. Patient already hasan advance directive in place. No referral made. * Amada Booker MD - 12/02/2022 6:33 AM EDT NEUROSURGERY PROGRESS NOTE PLEASE PAGE [phone] WITH QUESTIONS ID: Katheryn Carranza is a [...] -hold anticoagulation and antiplatelet -activity as tolerated. -PT/OT/HOUSE PAINTER : } -DISPOSITION: pending course -FULL CODE Please page [phone] with questions/concerns for in-house NSGY patients IMAGING: [...] who have questions please contact the health lawn caretaker that requested your imaging first. Electronically signed by: Elizabeth Fishman MD, [facility] ([phone]), at 11/30/2022 9:[address] Thoracic Spine [...] who have questions please contact the health lawn caretaker that requested your imaging first. Electronically signed by: Elizabeth Fishman MD, [facility] ([phone]), at 12/01/2022 12:[address] Lumbar Spine [...] who have questions please contact the health lawn caretaker that requested your imaging first. Electronically signed by: Elizabeth Fishman MD, [facility] ([phone]), at 12/01/2022 12:53 AM MRI Cervical Spine [...] who have questions please contact the health lawn caretaker that requested your imaging first. Thoracic Spine wo Contrast (Generic) (Exam End: [...] who have questions please contact the health lawn caretaker that requested your imaging first. Lumbar Spine wo Contrast (Generic) (Exam End: [...] who have questions please contact the health lawn caretaker that requested your imaging first. Chest PA & Lateral (Generic) (Exam End: 12/01/2022 11:48 AM) Impression No acute findings. Thank you for letting us participate in the care of this patient. If you are a health care provider and have any questions regarding this report, please contact the number below. For patients who have questions please contact the health lawn caretaker that requested your imaging first. CATIONS: Scheduled Meds: Continuous Infusions: PRN Meds: Vitals: [...] Amada Booker MD 12/02/2022 Associated attestation - Echt, Tien Florentino MD - 12/02/2022 12:20 PM EDT I [...] - 12/01/2022 4:52 PM EDT Provider paged [phone] Dillon would like to talk c provider c test results/plans for surgery * Amada Booker MD - 12/01/2022 6:40 AM EDT NEUROSURGERY PROGRESS NOTE PLEASE PAGE [phone] WITH QUESTIONS ID: Katheryn Carranza is a [...] -hold anticoagulation and antiplatelet -activity as tolerated. -PT/OT/HOUSE PAINTER : } -DISPOSITION: pending course -FULL CODE Please page [phone] with questions/concerns for in-house NSGY patients IMAGING: [...] who have questions please contact the health lawn caretaker that requested your imaging first. Electronically signed by: Elizabeth Fishman MD, [facility] ([phone]), at 11/30/2022 9:[address] Thoracic Spine [...] who have questions please contact the health lawn caretaker that requested your imaging first. Electronically signed by: Elizabeth Fishman MD, [facility] ([phone]), at 12/01/2022 12:[address] Lumbar Spine [...] who have questions please contact the health lawn caretaker that requested your imaging first. Electronically signed by: Elizabeth Fishman MD, [facility] ([phone]), at 12/01/2022 12:53 AM MRI Cervical Spine [...] who have questions please contact the health lawn caretaker that requested your imaging first. Thoracic Spine wo Contrast (Generic) (Exam End: [...] who have questions please contact the health lawn caretaker that requested your imaging first. Lumbar Spine wo Contrast (Generic) (Exam End: [...] who have questions please contact the health lawn caretaker that requested your imaging first. CATIONS: Scheduled Meds: Continuous Infusions: PRN Meds: Vitals: [...] Booker MD - 12/02/2022 10:30 AM EDT [facility] NEUROSURGERY Admission H&P Update Please see NSGY consult note from 11/30/22 for further details on this admission. documented in this encounter Procedure Notes * Sudeep Womack MD - 12/06/2022 9:57 AM EDT MANAN Removal Procedure: Patient is seen in bed in [facility] without change in neuro exam from earlier. MANAN with minimal output. Discussed with attending, agreed to remove the drain. Dressing was removed. The drain was taken off suction. The area around the tubing's entry site was cleaned with ChloraPrep. The tack-up suture was removed. The drain was carefully extracted. The entry site was closed with 4-0 monocryl suture in a [id number] fashion. This was done with the usual sterile technique. Dressing was placed. Patient tolerated the procedure well without any complications. Plan: See today's progress note * Usha Taylor MD - 12/02/2022 3:49 PM EDT NEURODIAGNOSTIC LABORATORY [facility] INTRAOPERATIVE MONITORING REPORT Name: Katheryn Carranza : [...] ipsilateral first dorsalinterosseous pickup, respectively. CPT Codes: 44122 (EEG); 88394 (EMG four limbs); 84024 (TOF, 4 nerves); 66325 (upper & lower MEP); 93485 (upper and lower SSEP bilateral); 21038 (IOM, 2 units); 18064 (IOM, 2 units). Total IOM time: 2 [...] relaxant reversal. We were able to get ltgaa-we-edde on all four nerves. tcMEP were stable. [...] src: Oral SpO2: 97 % O2 Device: RA O2 Flow Rate [...] who have questions please contact the health lawn caretaker that requested your imaging first. Electronically signed by: Elizabeth Fishman MD, [facility] ([phone]), at 11/30/2022 9:36 PM Procedures Assessment and [...] final neurosurgery recommendations. Leopoldo Power MD Resident 11/30/222213 Associated attestation - Calista Barrera MD - [...] Patient is medically ready for discharge to [facility]. Needs for Transition of Care: Plan for discharge is: Pending Hospital Course and PT/OT Recommendations Outpatient Agency/Support Group Needs: None Agency Referrals & Follow-up Care: Contact information for follow-up [facility], [address] [facility] [address] Transportation: ambulance requested noon, not confirmed yet. [...] none Patient is insured through: Primary Insurance: [employer] [place] Payor: [employer] [place] / Plan: [facility] [place] / Product Type: *No Product type* / Secondary Insurance: N/A Prescription Coverage: (Unable to assess) This plan was formulated with input from patient, -Prieto (please identify family/friend involved if applicable) and team. All are in agreement with plan. Ashley Kwon MSN, RN Pager #[phone] * Plan of Care - Cindy Morejon RN - 12/16/2022 4:54 AM EDT OUTCOME EVALUATION NOTE: OUTCOME SUMMARY: Patient is alert & oriented x4, no changes neurologically. VSS, on RA, afebrile. [place] to posterior neck incision intact/approximated. Reports severe [...] OUTCOME SUMMARY: Pt A&O, cont with pain /10, muscle tightness at times. PRN given x2. [...] for c/o neck and shoulder pain (see AUG). Patient c/o headache, scheduled tylenol given with [...] cares. Surgical site CDI with parminder intact. MD paged regarding increase in resting HR. Noted [...] for Transition of Care 12/10/20222247 by Sapphire Crawford, RN Outcome: Ongoing (Interventions Implemented as Appropriate) [...] Secondary Insurance: N/A Last Physical Therapy Recommendation: detention facility, swing bed rehabilitation facility with to be determined Last Occupational Therapy Recommendation: detention facility with to be determined Plan for [...] we do not have a card yet. ASSISTANT IMPORT MANAGER has assisted pt's to apply for L[facility]. Care Management will continue to follow and assist with discharge planning and coordination of care as indicated. Anticipated Date of Discharge: 12/13/2022 Ashley SHEA, RN Pager #[phone] * Plan of Care - Cristina Gan [...] NOTE: OUTCOME SUMMARY: Pt A&O x4, c/o 10/10 pain. Received PRN x2. Makes needs known. [...] C6-7, C7-T1, T1-2 3. Bilateral posterior instrumentation, Myfacepage, with stereotactic navigation, C4-T2 4. Local autograft [...] 0.3) performed by Tien Zurita MD at [facility] MAIN OR PRO ALLOGRAFT FOR SPINE SURGERY ONLY MORSELIZED N/A 12/02/2022 ALLOGRAFT FOR SPINE SURGERY ONLY; MORSELIZED (WRVU *) performed by Tien Zurita MD at [facility] MAIN OR PRO ARTHRODESIS POSTERIOR/PSTLAT TECH 1 INTERSPACE LUMBAR, EA ADD'L INTERSPACE N/A 12/02/2022 ARTHRODESIS, POSTERIOR VERTEBRAL EA.ADD. SEGMENT (WRVU 6.43) performed by Tien Zurita MD at [facility] MAIN OR PRO ARTHRODESIS, POST/POSTEROLAT TQ, SNGLE INTERSPACE; CERVICAL BELOW C2 SEGMNT N/A 12/02/2022 @ARTHRODESIS, POSTERIOR CERVICAL SPINE (WRVU 17.4) performed by Tien Zurita MD at [facility] MAIN OR PRO AUTOGRAFT SPINE SURGERY LOCAL FROM SAME INCISION N/A 12/02/2022 AUTOGRAFT FOR SPINE SURGERY ONLY, SAME INCISION (WRVU *) performed by Tien Zurita MD at [facility] MAIN OR PRO BREAST REDUCTION 12/09/2011 REDUCTION MAMMOPLASTY, CHRISTIAN performed by DEMETRA SOMMERS at [facility] MAIN OR PRO LAMINEC/FACETECT/FORAMIN, CERVICAL 1 SEG N/A 12/02/2022 LAMINECTOMY, FACETECTOMY & FORAMINOTOMY, CX, ONE LEVEL (WRVU 17.95) performed by Tien Zurita MD at [facility] MAIN OR PRO LAP, DIAGNOSTIC ABDOMEN Left 08/02/2022 LAPAROSCOPY, DIAGNOSTIC, ABDOMEN (WRVU 5.14) performed by Antonio Rojas MD at [facility] MAIN OR PRO POSTERIOR SEGMENTAL INSTRUMENTATION 3-6 VRT SEG N/A 12/02/2022 POST SPINAL INSTRUMENTATION, 3-6 VERTEBRA, NON SEGMENTAL (WRVU 12.56) performed by Tien Zurita MD at [facility] MAIN OR PRO REMOVAL OF OVARY/TUBE(S) Left 08/02/2022 @SALPINGO-OOPHORECTOMY, UNILATERAL OR CHRISTIAN (WRVU 12.16) performed by Antonio Rojas MD at [facility] MAIN OR PRO STEROTACTIC CPTR ASSTD PX SPINAL N/A 12/02/2022 STEREOTACTIC COMPUTER-ASSTD NAVIGATIONAL SPINAL (WRVU 3.75) [facility] PRO UPPER GI ENDOSCOPY, DIAGNOSTIC N/A 08/05/2022 EGD, UPPER GI ENDOSCOPY performed by Donnie Obrien MD at [facility] ENDOSCOPY Social History: Patient lives with her [...] and measurable assessment of functional outcome. Pager: [phone] Ayana Byrd OT 12/04/2022 Occupational Therapy Rehabilitation [...] of Discharge: 12/08/2022 Ashley SHEA, RN Pager #[phone] * Plan of Care - Mayuri Patel [...] medicine, unable to afford (TBD) Current DME: [facility] Home Address listed as: [address] [place] [phone] Social & Family Supports: All names listed below confirmed with patient as current and correct Extended Emergency Contact Information Primary Emergency Contact: Prieto Carranza Address: [address] [place] [phone] [facility] Mobile Relation: Spouse Secondary Emergency Contact: Razia Carranza [place], [place] [id number] [place] [address] Mobile Relation: Child Current Care Provided by: [...] Prescription Coverage: (Unable to assess) Preferred Pharmacy: [id number] - [facility], [place] - [address] [facility] [address] [facility] [address] [place] Status: Patient is a : Primary Care Provider listed: Lena Womack, CLOTH CLASSER [phone] Patient/Caregiver Goals of Treatment: TBD pending hospital course and rehab evals. Potential Needs for Transition of Care: home health care, durable medical equipment Agency Referrals: Not Applicable Transportation: no concerns Transportation Anticipated: family or friend will provide Concerns to be Addressed: adjustment to diagnosis/illness, animal care provider support, discharge planning, uninsured, substance/tobacco abuse/use, medication Assessment: Patient is admitted to Neurosurg service for cervical myelopathy in setting of fall with increased symptoms. Plan: TBD pending hospital course and rehab evals post op. A member of the Care Management team will continue to monitor progress, follow for continuity of care and assist with transition of care planning. Ashley Kwon MSN, RN Pager #[phone] * Op Note - Tien Zurita MD - 12/02/2022 1:27 PM EDT [facility] Operative Note Patient Name: Katheryn Carranza : [id number] MR#: [id number] Case Date: 12/02/2022 Surgeon: Surgeon(s) and Role: [...] 4. Local autograft and morselized allograft CPT: 85050 fusion single level +11890 x 4 for each additional fusion level 54087-88 Cervical Laminectomy/Facetectomy single level +22331 x2 Cervical laminectomy/facetectomy each additional level +57818 Instrument 3-6 Level, +30581 navigation +06384 autograft + allograft Findings: Calcified ligamentum flavum at C6-7, severe stenosis at C4-5 Anesthesia: General Estimated Blood Loss: 200 mL Specimens removed during surgery: None Drains: #15 round Ethiopian Surgical Closure: Primary Closure - skin incision [...] and transverse processes of T1 and T2. Carbider holes for lateral mass screws bilaterally from C4 - C6 was performed with an initial 2mm cutting miguel for opening the cortex in the standard Magerl entry point, and then using the Laura Sapiens hand-heldpower drill, 14mm depth pilot plant research technician holes were placed using standard Magerl technique. The pilot plant research technician holes were palpated using a fine ball-tipped probe and subsequently tapped. Lateral mass screws were left out at this time. The O-arm was then brought into the field for acquisition of stereotactic guidance for placement of T1 and T2 pedicle screws. Then with the [employer] S8 spinal navigation, bilateral pedicle screws were placed [...] for the entire procedure. Tien Zurita MD Screw Machine Operator Section of Neurosurgery Department of Surgery [facility] * Plan of Care - Mayuri Patel [...] documented. * Consult Note - Rosaura James [facility] - 12/01/2022 3:49 PM EDT TelePharmacy Home Medication List Update for Medication Reconciliation 12/01/22 3:49 PM Katheryn Carranza 1960 Allergies Allergen Reactions Allergenic Extracts Pollen [...] Internal Medicine Pre-Op Evaluation Subjective: Patient Information: Kahteryn Carranza is a 62 y.o. female with [...] MAMMOPLASTY, CHRISTIAN performed by DEMETRA SOMMERS at [facility] MAIN OR PRO LAP, DIAGNOSTIC ABDOMEN Left 08/02/2022 LAPAROSCOPY, DIAGNOSTIC, ABDOMEN (WRVU 5.14) performed by Antonio Rojas MD at [facility] MAIN OR PRO REMOVAL OF OVARY/TUBE(S) Left 08/02/2022 @SALPINGO-OOPHORECTOMY, UNILATERAL OR CHRISTIAN (WRVU 12.16) performed by Antonio Rojas MD at [facility] MAIN OR PRO UPPER GI ENDOSCOPY, DIAGNOSTIC N/A 08/05/2022 EGD, UPPER GI ENDOSCOPY performed by Donnie Obrien MD at [facility] ENDOSCOPY Allergies Allergen Reactions Allergenic Extracts Pollen [...] optimally treated, with possible referral to a electrical and radio mechanic for further evaluation: High Risk Patients [] Recent UT or unstable angina [] Decompensated heart failure [...] - Consider Stress Testing if it would exchange consultant or would be done otherwise PULMONARY RISK [...] risk surgery (6% 30 day mortality , UT or cardiac arrest). Tolerated anesthesia in August no issue, baseline ECG similar to prior. Baseline trop neg. No further eval indicated prior to OR Remainder as above. SAUL ALONSO MD * Consult Note - Giovanna Mckeon APRN - 11/30/2022 10:15 PM EDT Neurosurgery Inpatient [...] known to NSGY service; who presented to [facility] ED per recommendation from NSGY clinic with [...] MAMMOPLASTY, CHRISTIAN performed by DEMETRA SOMMERS at [facility] MAIN OR PRO LAP, DIAGNOSTIC ABDOMEN Left 08/02/2022 LAPAROSCOPY, DIAGNOSTIC, ABDOMEN (WRVU 5.14) performed by Antonio Rojas MD at [facility] MAIN OR PRO REMOVAL OF OVARY/TUBE(S) Left 08/02/2022 @SALPINGO-OOPHORECTOMY, UNILATERAL OR CHRISTIAN (WRVU 12.16) performed by Antonio Rojas MD at [facility] MAIN OR PRO UPPER GI ENDOSCOPY, DIAGNOSTIC N/A 08/05/2022 EGD, UPPER GI ENDOSCOPY performed by Donnie Obrien MD at [facility] ENDOSCOPY Medications: No current facility-administered medications on [...] Stability: Not on file Vitals: Vitals: 11/30/22 19411/30/22194311/30/222123 BP: 128/78 115/66 BP Location (NBP): Right [...] who have questions please contact the health lawn caretaker that requested your imaging first. Electronically signed by: Elizabeth Fishman MD, [facility] ([phone]), at 11/30/2022 9:36 PM Assessment: This is a 62 y.o. female with a PMHx of cervical myelopathy, osteoarthritis, HTN , known to NSGY service; who presented to [facility] ED per recommendation from NSGY clinic with [...] the assessment and plan. Please page NSGY [phone] if questions Giovanna Mckeon APRN Neurosurgery * [...] 03/07/2024 10:00 AM EDT Appointment XRay at [address] [place] [address] Tien Zurita MD [facility] [place] [address] 03/07/2024 10:40 AM EDT Office Visit Neurosurgery at [facility] [place] [phone] Angel Hankins PA [facility] [place] [place] [address] documented as of this encounter Procedures Procedure [...] Exam Up To 1 Hr Phy Or OtPhysicians Care Surgical Hospit[facility] Care Prov (39726) Yes 12/02/2022 12:11 PM EDT Stenosis of cervical spine with myelopathy MODIFIER,POSTERIOR CERVICAL INFINITY MEDTRONIC Yes 12/02/2022 12:11 PM EDT Stenosis of cervical spine with myelopathy Sterotactic Cptr Asstd Px Spinal (95471) Yes 12/02/2022 12:11 PM EDT Stenosis of cervical spine with myelopathy Allograft For Spine Surgery Only Morselized () Yes 12/02/2022 12:11 PM EDT Stenosis of cervical spine with myelopathy Autograft Spine Surgery Local From Same Incision () Yes 12/02/2022 12:11 PM EDT Stenosis of cervical spine with myelopathy Posterior Segmental Instrumentation 3-6 Vrt Seg (64967) Yes 12/02/2022 12:11 PM EDT Stenosis of cervical spine with myelopathy Laminec/Facetect/Forami n, Cervical 1 Seg (65826) Yes 12/02/2022 12:11 PM EDT Stenosis of cervical spine with myelopathy Arthrodesis Posterior/Pstlat Technique 1 Interspace Lumbar, Ea Add'L Interspace (03304) Yes 12/02/2022 12:11 PM EDT Stenosis of cervical spine with myelopathy Arthrodesis, Post/Posterolat Tq, Sngle Interspace; Cervical Below C2 Segmnt (26790) Yes 12/02/2022 12:11 PM EDT Stenosis of [...] EDT XR CHEST PA AND LATERAL STAT 12/02/19 11:48 AM EDT EKG 12-LEAD STAT 12/01/2022 [...] who have questions please contact the health lawn caretaker that requested your imaging first. ? Electronically signed by: Svetlana Wellington MD, [facility] ([phone]), at 01/17/2023 2:21 PM Narrative 01/17/2023 2:21 [...] patients who have questions please contactthe health lawn caretaker that requested your imaging first. Electronically signed by: Svetlana Wellington MD, [facility]([phone]), at 01/17/2023 2:21 PM Chauhan A Echt IMG DX ORDERABLES * (ABNORMAL) Urine culture (12/04/2022 3:08 PM EDT) Urine Culture Greater than 100,000 cfu/ml Enterobacter cloacae complex(A) [facility] Organism Enterobacter cloacae complex(A) [facility] Clean Catch Urine 12/04/2022 3:08 PM [...] - GENER AL ORDERABLES Performing Organization Address City/[facility]/ZIP Co de Phone Number [facility] [place] [address] * (ABNORMAL) Urinalysis Microscopic Exam (12/04/2022 3:08 PM EDT) RBC, Urine 1 0 - 4 /HPF [facility] WBC, Urine 3 0 - 5 /HPF [facility] Bacteria, Urine Many(A) None /HPF [facility] Squamous Epithelial Cells Raw Data, Urine 1 <=4 /HPF [facility] Clean Catch Urine 12/04/2022 3:08 PM EDT 12/04/2022 3:32 PM EDT Narrative Resulting Agency Comment Spec In Lab Sudeep Womack MD URINE ORDERABLES Performing Organization Address [facility] Co de Phone Number [facility] [place] [address] * (ABNORMAL) Urinalysis with reflex Culture (12/04/2022 3:08 PM EDT) Glucose, Urine Dipstick Negative Negative mg/dL [facility] Protein, Urine Dipstick Negative Negative mg/dL [facility] Bilirubin, Urine Dipstick Negative Negative mg/dL [facility] Comment: Clinical correlation required for positive Urine Bilirubin results as false positive may occur with some drugs and drug related products. If a false positive is suspected a serum total bilirubin should be considered if clinically indicated. Urobilinogen, Urine Dipstick Normal Normal mg/dL [facility] pH, Urn (dipstick) 7.0 5.0 - 8.0 [facility] Blood, Urine Dipstick Negative Negative mg/dL [facility] Ketone, Urine Dipstick Negative Negative mg/dL [facility] Nitrite, Urine Dipstick Positive(A) Negative [facility] Leukocytes, Urine Dipstick Moderate(A) Negative [facility] Appearance, Urine Dipstick Clear Clear [facility] Specific [place] Urine Automated 1.007 1.005 - 1.030 [facility] Color, Urine Dipstick Yellow Yellow [facility] Reflex to Culture Yes [facility] Clean Catch Urine 12/04/2022 3:08 PM EDT 12/04/2022 3:32 PM EDT Narrative Resulting Agency Comment Spec In Lab Chauhan A Echt URINE ORDERABLES [facility] [place] [address] * (ABNORMAL) Differential, Automated (12/04/2022 6:25 AM EDT) Neutrophil % 50.8 % [facility] Neutrophil Absolute 4.67 1.70 - 6.10 x10(3)/mc L [facility] Lymph % 36.4 % [facility] Lymphocytes Abs 3.4(H) 0.9 - 3.2 x10(3)/mc L [facility] Monocyte % 9.2 % [facility] Monocyte Abs 0.8 0.3 - 0.9 x10(3)/mc L [facility] Eos % 2.9 % [facility] Eosinophils Abs 0.3 0.0 - 0.4 x10(3)/mc L [facility] Basophil % 0.3 % [facility] Baso Absolute 0.0 0.0 - 0.1 x10(3)/mc L [facility] Immature Gran % 0.40 % [facility] Comment: Immature granulocytes(IG's)percentage and absolute count will include metamyelocytes, myelocytes, and promyelocytes. Blood smears from CBCs yielding IG's will be scanned manually for concordance. If this scan disagrees with the automated IG or if promyelocytes are noted, a manual differential will be performed. Immature Gran Absolute 0.04 0.00 - 0.04 x10(3)/mc L [facility] Blood 12/04/2022 6:25 AM EDT 12/04/2022 6:50 AM EDT Narrative Resulting Agency Comment Spec In Lab Louie Rosario MD HEMATOLOGY ORDERABLE S [facility] [place] [address] * (ABNORMAL) Hemogram (12/04/2022 6:25 AM EDT) White Blood Cell 9.2 4.0 - 9.5 x10(3)/mc L [facility] Red Blood Cell 3.64(L) 4.00 - 5.21 x10(6)/mc L [facility] Hemoglobin 11.7 11.7 - 15.5 g/dL [facility] Hematocrit 33.7(L) 35.7 - 45.8 % [facility] Mean Cell Volume 92.6 82.6 - 94.4 fL [facility] Mean Cell Hemoglobin 32.1(H) 27.1 - 32.0 pg [facility] Mean Cell Hemoglobin Concentration 34.7 31.7 - 35.0 g/dL [facility] Platelet 251 145 - 357 x10(3)/mc L [facility] RDW Standard Deviation 41.7 37.0 - 46.0 fL [facility] RDW coefficient of variation 12.3 11.5 - 14.1 % [facility] Mean Platelet Volume 9.0 7.6 - 12.9 fL [facility] NRBC% auto 0.0 % [facility] NRBC Absolute 0.000 0.000 - 0.000 x10(3)/mc L [facility] Blood 12/04/2022 6:25 AM EDT 12/04/2022 6:50 AM EDT Narrative Resulting Agency Comment Spec In Lab Louie Rosario MD HEMATOLOGY ORDERABLE S [facility] [place] [address] * Basic Metabolic Panel (non-fasting) (12/04/2022 6:25 AM EDT) Glucose 117 65 - 199 mg/dL [facility] Comment:Diabetes: >=200 mg/d L plus symptoms Blood Urea Nitrogen 8 8 - 18 mg/dL [facility] Creatinine 0.76 0.70 - 1.20 mg/dL [facility] Sodium 138 135 - 145 mmol/L [facility] Potassium 3.5 3.5 - 5.0 mmol/L [facility] Comment: Please note: ??Patients with WBC >100,000 may have falsely elevated Potassium levels. ??For accurate Potassium quantification in these patients send serum separator tube (gold top) for subsequent determinations. ??Contact the Clinical Chemistry Laboratory if there are any questions. Chloride 101 98 - 107 mmol/L [facility] Carbon Dioxide 27 22 - 31 mmol/L [facility] Anion Gap 10 5 - 15 mmol/L [facility] Calcium 9.3 8.5 - 10.5 mg/dL [facility] Est Glomerular Filtration Rate 89 >=60 mL/min/1. 73 m?? [facility] Comment: This patient's estimated GFR [...] Agency Comment Spec In Lab Chauhan A Rubent CHEMISTRY ORDERABLES [facility] [place] [address] * XR Cervical Spine 2 or 3 [...] who have questions please contact the health lawn caretaker that requested your imaging first. ? Narrative 12/03/2022 4:43 PM EDT EXAMINATION: XR [...] patients who have questions please contactthe health lawn caretaker that requested your imaging first. Tien Zurita MD IMG DX ORDERABLES * (ABNORMAL) Differential, Automated (12/03/2022 8:36 AM EDT) Neutrophil % 70.2 % [facility] Neutrophil Absolute 7.83(H) 1.70 - 6.10 x10(3)/mc L [facility] Lymph % 20.2 % [facility] Lymphocytes Abs 2.2 0.9 - 3.2 x10(3)/mc L [facility] Monocyte % 8.6 % [facility] Monocyte Abs 1.0(H) 0.3 - 0.9 x10(3)/mc L [facility] Eos % 0.4 % [facility] Eosinophils Abs 0.0 0.0 - 0.4 x10(3)/mc L [facility] Basophil % 0.2 % [facility] Baso Absolute 0.0 0.0 - 0.1 x10(3)/mc L [facility] Immature Gran % 0.40 % [facility] Comment: Immature granulocytes(IG's)percentage and absolute count will include metamyelocytes, myelocytes, and promyelocytes. Blood smears from CBCs yielding IG's will be scanned manually for concordance. If this scan disagrees with the automated IG or if promyelocytes are noted, a manual differential will be performed. Immature Gran Absolute 0.05(H) 0.00 - 0.04 x10(3)/mc L [facility] Blood 12/03/2022 8:36 AM EDT 12/03/2022 8:57 AM EDT Narrative Resulting Agency Comment Spec In Lab Louie Rosario MD HEMATOLOGY ORDERABLE S [facility] [place] [address] * (ABNORMAL) Hemogram (12/03/2022 8:36 AM EDT) White Blood Cell 11.2(H) 4.0 - 9.5 x10(3)/mc L [facility] Red Blood Cell 3.75(L) 4.00 - 5.21 x10(6)/mc L [facility] Hemoglobin 12.1 11.7 - 15.5 g/dL [facility] Hematocrit 34.7(L) 35.7 - 45.8 % [facility] Mean Cell Volume 92.5 82.6 - 94.4 fL [facility] Mean Cell Hemoglobin 32.3(H) 27.1 - 32.0 pg [facility] Mean Cell Hemoglobin Concentration 34.9 31.7 - 35.0 g/dL [facility] Platelet 266 145 - 357 x10(3)/mc L [facility] RDW Standard Deviation 42.1 37.0 - 46.0 fL [facility] RDW coefficient of variation 12.5 11.5 - 14.1 % [facility] Mean Platelet Volume 9.3 7.6 - 12.9 fL [facility] NRBC% auto 0.0 % [facility] NRBC Absolute 0.000 0.000 - 0.000 x10(3)/mc L [facility] Blood 12/03/2022 8:36 AM EDT 12/03/2022 8:57 AM EDT Narrative Resulting Agency Comment Spec In Lab Louie Rosario MD HEMATOLOGY ORDERABLE S [facility] [place] [address] * (ABNORMAL) Basic Metabolic Panel (non-fasting) (12/03/2022 8:36 AM EDT) Glucose 125 65 - 199 mg/dL [facility] Comment:Diabetes: >=200 mg/d L plus symptoms Blood Urea Nitrogen 6(L) 8 - 18 mg/dL [facility] Creatinine 0.62(L) 0.70 - 1.20 mg/dL [facility] Sodium 139 135 - 145 mmol/L [facility] Potassium 4.0 3.5 - 5.0 mmol/L [facility] Comment: Please note: ??Patients with WBC >100,000 may have falsely elevated Potassium levels. ??For accurate Potassium quantification in these patients send serum separator tube (gold top) for subsequent determinations. ??Contact the Clinical Chemistry Laboratory if there are any questions. Chloride 102 98 - 107 mmol/L [facility] Carbon Dioxide 24 22 - 31 mmol/L [facility] Anion Gap 13 5 - 15 mmol/L [facility] Calcium 9.5 8.5 - 10.5 mg/dL [facility] Est Glomerular Filtration Rate 101 >=60 mL/min/1. 73 m?? [facility] Comment: This patient's estimated GFR [...] Zurita MD CHEMISTRY ORDERABLES Performing Organization Address City/State/[facility] Co de Phone Number [facility] [place] [address] * EKG 12 Lead (12/02/2022 9:02 PM EDT) Ventricular rate 92 BPM MUSE SYSTEM Atrial Rate 92 BPM MUSE SYSTEM P-R Interval 200 ms MUSE SYSTEM QRS Duration 112 ms MUSE SYSTEM Q-T Interval 378 ms MUSE SYSTEM QTC Calculated (Bezet) 467 ms MUSE SYSTEM Calculated P Norman 52 degrees MUSE SYSTEM Calculated R Norman 88 degrees MUSE SYSTEM Calculated T Norman 78 degrees MUSE SYSTEM INTERPRETATION Normal sinus rhythm T wave abnormality, consider anterior ischemia Abnormal ECG When compared with ECG of 01-DEC-2022 11:15, No significant change was found Confirmed by MD Neetu, Mark Lopez ([id number]) on 12/03/2022 3:28:25 PM MUSE SYSTEM 12/02/2022 [...] 6:59 AM EDT) Neutrophil % 67.4 % [facility] Neutrophil Absolute 4.99 1.70 - 6.10 x10(3)/[facility] Lymph % 22.4 % [facility] Lymphocytes Abs 1.7 0.9 - 3.2 x10(3)/[facility] Monocyte % 7.0 % [facility] Monocyte Abs 0.5 0.3 - 0.9 x10(3)/[facility] Eos % 2.6 % [facility] Eosinophils Abs 0.2 0.0 - 0.4 x10(3)/[facility] Basophil % 0.1 % [facility] Baso Absolute 0.0 0.0 - 0.1 x10(3)/[facility] Immature Gran % 0.50 % [facility] Comment: Immature granulocytes(IG's)percentage and absolute count will include metamyelocytes, myelocytes, and promyelocytes. Blood smears from CBCs yielding IG's will be scanned manually for concordance. If this scan disagrees with the automated IG or if promyelocytes are noted, a manual differential will be performed. Immature Gran Absolute 0.04 0.00 - 0.04 x10(3)/mcL [facility] Blood 12/02/2022 6:59 AM EDT 12/02/2022 7:19 AM EDT Narrative Resulting Agency Comment Spec In Lab Giovanna Brionesashish MEJIA HEMATOLOGY ORDERA BLES Performing Organization Address City/[facility]/ZIP Co de Phone Number [facility] [place] [address] * (ABNORMAL) Hemogram (12/02/2022 6:59 AM EDT) White Blood Cell 7.4 4.0 - 9.5 x10(3)/mc L [facility] Red Blood Cell 3.92(L) 4.00 - 5.21 x10(6)/mc L [facility] Hemoglobin 12.7 11.7 - 15.5 g/dL [facility] Hematocrit 37.4 35.7 - 45.8 % [facility] Mean Cell Volume 95.4(H) 82.6 - 94.4 fL [facility] Mean Cell Hemoglobin 32.4(H) 27.1 - 32.0 pg [facility] Mean Cell Hemoglobin Concentration 34.0 31.7 - 35.0 g/dL [facility] Platelet 243 145 - 357 x10(3)/mc L [facility] RDW Standard Deviation 44.6 37.0 - 46.0 fL [facility] RDW coefficient of variation 12.9 11.5 - 14.1 % [facility] Mean Platelet Volume 9.3 7.6 - 12.9 fL [facility] NRBC% auto 0.0 % [facility] NRBC Absolute 0.000 0.000 - 0.000 x10(3)/mc L [facility] Blood 12/02/2022 6:59 AM EDT 12/02/2022 7:19 AM EDT Narrative Resulting Agency Comment Spec In Lab Giovanna Mckeon APRN HEMATOLOGY ORDERA BLES Performing Organization Address City/[facility]/ZIP Co de Phone Number [facility] [place] [address] * Basic Metabolic Panel (non-fasting) (12/02/2022 6:59 AM EDT) Glucose 120 65 - 199 mg/dL [facility] Comment:Diabetes: >=200 mg/d L plus symptoms Blood Urea Nitrogen 8 8 - 18 mg/dL [facility] Creatinine 0.73 0.70 - 1.20 mg/dL [facility] Sodium 138 135 - 145 mmol/L [facility] Potassium 4.2 3.5 - 5.0 mmol/L [facility] Comment: Please note: ??Patients with WBC >100,000 may have falsely elevated Potassium levels. ??For accurate Potassium quantification in these patients send serum separator tube (gold top) for subsequent determinations. ??Contact the Clinical Chemistry Laboratory if there are any questions. Chloride 100 98 - 107 mmol/L [facility] Carbon Dioxide 27 22 - 31 mmol/L [facility] Anion Gap 11 5 - 15 mmol/L [facility] Calcium 9.5 8.5 - 10.5 mg/dL [facility] Est Glomerular Filtration Rate 93 >=60 mL/min/1. 73 m?? [facility] Comment: This patient's estimated GFR [...] Resulting Agency Comment Spec In Lab Chauhan Mishel Zurita MD CHEMISTRY ORDERABLES [facility] [place] [address] * SCAN DOC: IMPLANTABLE DEVICES (12/02/2022 12:00 AM EDT) Narrative 12/02/2022 12:00 AM EDT Ordered by an unspecified provider. Scanning Provider MEDIA MGR SCAN EXT O RDR/RSLT * Type and Screen Validity (12/01/2022 3:55 PM EDT) T&S only valid at [facility] LABORATORY Comment:This Type and Screen result is only valid at the [facility] Blood 12/01/2022 3:55 PM EDT 12/01/2022 4:23 PM EDT Narrative Resulting Agency Comment Spec In Lab Giovanna Mckeon APRN BLOOD BANK LAB OR DERABLES Performing Organization Address [facility]/ZIP Co de Phone Number [facility] [place] [address] * ABORH Recheck Status (12/01/2022 3:55 PM EDT) ABORH Type Recheck Completed [facility] Blood 12/01/2022 3:55 PM EDT 12/01/2022 4:23 PM EDT Narrative Resulting Agency Comment Spec In Lab Giovanna Mckeon APRN BLOOD BANK LAB OR DERABLES Performing Organization Address [facility] Co de Phone Number [facility] [place] [address] * Antibody screen (12/01/2022 3:55 PM EDT) Ab Screen Interp Negative [facility] Expires at [id number] on: 12/04/2022 [facility] Blood 12/01/2022 3:55 PM EDT 12/01/2022 4:23 PM EDT Narrative Resulting Agency Comment Spec In Lab Giovanna Mckeon APRN BLOOD BANK LAB OR DERABLES Performing Organization Address [facility] Co de Phone Number [facility] [place] [address] * ABO/Rh Typing (12/01/2022 3:55 PM EDT) ABORH Type O Pos [facility] Blood 12/01/2022 3:55 PM EDT 12/01/2022 4:23 PM EDT Narrative Resulting Agency Comment Spec In Lab Giovanna Mckeon JACKIE BLOOD BANK LAB OR DERABLES [facility] [place] [address] * Troponin (12/01/2022 3:55 PM EDT) [facility] Troponin-T, High Sensitivity 7 <=14 ng/L [facility] Comment: This patient's troponin T concentration [...] value can be found in the [facility] Laboratory Test Catalog Troponin - [facility] Laboratory Test Catalog Reference: Fourth Delmita Definition of Myocardial Infarction. Journal of the [employer] 2018;72:2284-4675 Blood Venous Draw / Unknown 12/01/2022 3:55 PM EDT 12/01/2022 4:13 PM EDT Narrative Resulting Agency Comment Spec In Lab Twila Ahumada MD CHEMISTRY ORDERABLES [facility] [place] [address] * APTT (12/01/2022 3:55 PM EDT) Partial Thromboplastin Time 30 25 - 37 sec [facility] Comment: The PTT is NOT appropriate for heparin monitoring. Use the Anti-Xa level for heparin monitoring (HEP UFH) or LMWH monitoring (HEP LMW). A PTT less than 37 seconds generally indicates adequate hemostasis. Blood 12/01/2022 3:55 PM EDT 12/01/2022 4:13 PM EDT Narrative Resulting Agency Comment Spec In Lab Giovanna Brionesashish MEJIA HEMATOLOGY ORDERA BLES Performing Organization Address [facility] Co de Phone Number [facility] [place] [address] * Prothrombin Time (12/01/2022 3:55 PM EDT) Prothrombin Time 11.2 9.4 - 12.5 sec [facility] International Normalization Ratio 1.0 [facility] Comment: An INR <2.0 indicates adequate [...] Resulting Agency Comment Spec In Lab Giovanna Echeverria Mike MEJIA HEMATOLOGY ORDERA BLES Performing Organization Address [facility] Co de Phone Number [facility] [place] [address] * XR Chest PA & Lateral (Generic) [...] who have questions please contact the health lawn caretaker that requested your imaging first. ? Narrative 12/01/2022 12:06 PM EDT EXAMINATION: XR [...] patients who have questions please contactthe health lawn caretaker that requested your imaging first. Tien Zurita MD IMG DX ORDERABLES * EKG 12 Lead (12/01/2022 11:15 AM EDT) [facility] Signature Ventricular rate 72 BPM MUSE SYSTEM Atrial Rate 72 BPM MUSE SYSTEM P-R Interval 172 ms MUSE SYSTEM QRS Duration 104 ms MUSE SYSTEM Q-T Interval 406 ms MUSE SYSTEM QTC Calculated (Bezet) 444 ms MUSE SYSTEM Calculated P Norman 57 degrees MUSE SYSTEM Calculated R Norman 88 degrees MUSE SYSTEM Calculated T Norman 82 degrees MUSE SYSTEM INTERPRETATION Normal sinus rhythm T wave abnormality, consider anterior ischemia Abnormal ECG No previous ECGs available Confirmed by MD Torri, Charly ([id number]) on 12/01/2022 12:58:25 PM MUSE SYSTEM 12/01/2022 11:1 5 AM EDT 12/01/2022 12:58 PM EDT Chauhan A Echt ECG ORDERABLES MUSE SYSTEM * MRI Lumbar [...] who have questions please contact the health lawn caretaker that requested your imaging first. ? Narrative [...] patient motion. The conus terminates at the [id number]. No evidence for unhealed fracture in the [...] patients who have questions please contactthe health lawn caretaker that requested your imaging first. Chauhan A Rubent IMG MRI ORDERABLES * MRI Thoracic Spine wo [...] who have questions please contact the health lawn caretaker that requested your imaging first. ? Narrative [...] patient motion. The conus terminates at the [id number]. No evidence for unhealed fracture in the [...] patients who have questions please contactthe health lawn caretaker that requested your imaging first. Chauhan A Echt IMG MRI ORDERABLES * MRI Cervical Spine wo [...] who have questions please contact the health lawn caretaker that requested your imaging first. ? Narrative [...] patient motion. The conus terminates at the [id number]. No evidence for unhealed fracture in the [...] patients who have questions please contactthe health lawn caretaker that requested your imaging first. Giovanna L Mike MEJIA IMG MRI ORDERABLE S * CT Lumbar [...] who have questions please contact the health lawn caretaker that requested your imaging first. ? Electronically signed by: Elizabeth Fishman MD, [facility] ([phone]), at 12/01/2022 12:53 AM Narrative 12/01/2022 12:53 [...] patients who have questions please contactthe health lawn caretaker that requested your imaging first. Electronically signed by: Elizabeth Fishman MD, [facility]([phone]), at 12/01/2022 12:53 AM Giovanna Mckeon APRN [facility] ORDERABLES * CT Thoracic Spine wo [...] who have questions please contact the health lawn caretaker that requested your imaging first. ? Electronically signed by: Elizabeth Fishman MD, [facility] ([phone]), at 12/01/2022 12:53 AM Narrative 12/01/2022 12:53 [...] patients who have questions please contactthe health lawn caretaker that requested your imaging first. Giovanna Mckeon APRN [facility] CT ORDERABLES * CT Head & Cervical [...] who have questions please contact the health lawn caretaker that requested your imaging first. ? Electronically signed by: Elizabeth Fishman MD, [facility] ([phone]), at 11/30/2022 9:36 PM Narrative 11/30/2022 9:36 [...] patients who have questions please contactthe health lawn caretaker that requested your imaging first. Electronically signed by: Elizabeth Fishman MD, [facility]([phone]), at 11/30/2022 9:36 PM Calista Barrera MD [facility] CT ORDERABLES * Troponin (11/30/2022 8:05 PM EDT) Troponin-T, High Sensitivity <6 <=14 ng/L [facility] Comment: This patient's troponin T concentration [...] value can be found in the [facility] Laboratory Test Catalog Troponin - [facility] Laboratory Test Catalog Reference: Fourth Delmita Definition of Myocardial Infarction. Journal of the [place] [employer] 2018;72:7111-0893 Blood Venous Draw / Unknown 11/30/2022 8:05 PM EDT 11/30/2022 8:34 PM EDT Narrative Resulting Agency Comment Spec In Lab Twila Ahumada MD CHEMISTRY ORDERABLES [facility] [place] [address] * Differential, Automated (11/30/2022 8:05 PM EDT) Neutrophil % 58.4 % [facility] Neutrophil Absolute 5.06 1.70 - 6.10 x10(3)/[facility] LABORATORY Lymph % 31.3 % [facility] Lymphocytes Abs 2.7 0.9 - 3.2 x10(3)/[facility] LABOR[facility] Monocyte % 6.8 % [facility] Monocyte Abs 0.6 0.3 - 0.9 x10(3)/[facility] LABORATORY Eos % 3.0 % [facility] Eosinophils Abs 0.3 0.0 - 0.4 x10(3)/[facility] LABORATORY Basophil % 0.2 % [facility] Baso Absolute 0.0 0.0 - 0.1 x10(3)/mcL [facility] Immature Gran % 0.30 % [facility] Comment: Immature granulocytes(IG's)percentage and absolute count will include metamyelocytes, myelocytes, and promyelocytes. Blood smears from CBCs yielding IG's will be scanned manually for concordance. If this scan disagrees with the automated IG or if promyelocytes are noted, a manual differential will be performed. Immature Gran Absolute 0.03 0.00 - 0.04 x10(3)/[facility] LABORATORY Blood 11/30/2022 8:05 PM EDT 11/30/2022 8:33 PM EDT Narrative Resulting Agency Comment Spec In Lab Guido MARSHALL HEMATOLOGY ORDERABLE S Performing Organization Address City/State/[facility] Co de Phone Number [facility] [place] [address] * (ABNORMAL) Hemogram (11/30/2022 8:05 PM EDT) White Blood Cell 8.7 4.0 - 9.5 x10(3)/mc L [facility] Red Blood Cell 4.09 4.00 - 5.21 x10(6)/mc L [facility] Hemoglobin 13.2 11.7 - 15.5 g/dL [facility] Hematocrit 37.7 35.7 - 45.8 % [facility] Mean Cell Volume 92.2 82.6 - 94.4 fL [facility] Mean Cell Hemoglobin 32.3(H) 27.1 - 32.0 pg [facility] Mean Cell Hemoglobin Concentration 35.0 31.7 - 35.0 g/dL [facility] Platelet 260 145 - 357 x10(3)/mc L [facility] RDW Standard Deviation 42.5 37.0 - 46.0 fL [facility] RDW coefficient of variation 12.6 11.5 - 14.1 % [facility] Mean Platelet Volume 9.0 7.6 - 12.9 fL [facility] NRBC% auto 0.0 % [facility] NRBC Absolute 0.000 0.000 - 0.000 x10(3)/mc L [facility] Blood 11/30/2022 8:05 PM EDT 11/30/2022 8:33 PM EDT Narrative Resulting Agency Comment Spec In Lab Guido MARSHALL HEMATOLOGY ORDERABLE S [facility] [place] [address] * (ABNORMAL) Basic Metabolic Panel (non-fasting) (11/30/2022 8:05 PM EDT) Glucose 132 65 - 199 mg/dL [facility] Comment:Diabetes: >=200 mg/d L plus symptoms Blood Urea Nitrogen 8 8 - 18 mg/dL [facility] Creatinine 0.62(L) 0.70 - 1.20 mg/dL [facility] Sodium 133(L) 135 - 145 mmol/L [facility] Potassium 4.3 3.5 - 5.0 mmol/L [facility] Comment: Please note: ??Patients with WBC >100,000 may have falsely elevated Potassium levels. ??For accurate Potassium quantification in these patients send serum separator tube (gold top) for subsequent determinations. ??Contact the Clinical Chemistry Laboratory if there are any questions. Chloride 99 98 - 107 mmol/L [facility] Carbon Dioxide 20(L) 22 - 31 mmol/L [facility] Anion Gap 14 5 - 15 mmol/L [facility] Calcium 9.3 8.5 - 10.5 mg/dL [facility] Est Glomerular Filtration Rate 101 >=60 mL/min/1. 73 m?? [facility] Comment: This patient's estimated GFR [...] Lab Calista Barrera MD CHEMISTRY ORDERABLE S [facility] [place] [address] documented in this encounter Visit Diagnoses Diagnosis Cervical myelopathy- Primary Cervical spondylosis with myelopathy History of weakness of extremity Cervical myelopathy Cervical spondylosis with myelopathy Stenosis of cervical spine with myelopathy Cervical spondylosis without myelopathy Stenosis of cervical spine with myelopathy Cervical spondylosis without myelopathy documented in this encounter Admitting Diagnoses Diagnosis Cervical myelopathy Cervical spondylosis with myelopathy documented in this encounter Administered Medications Inactive Administered Medications - up to 3 most recent administrations Medication Order MAR Action Action Date Dose Rate Site acetaminophen (Tylenol) tablet 975 mg 975 mg, [...] Given 12/16/2022 12:46 AM EDT 975 mg amitriptyline (Elavil) tablet 100 mg 100 [...] Given 12/11/2022 12:26 AM EDT 500 mg dextromethorphan (Robitussin) capsule 15 mg 15 mg, [...] Given 12/15/2022 8:45 AM EDT 20 mg gabapentin (Neurontin) capsule 600 mg 600 mg, Oral, 3 TIMES DAILY, First dose (after last modification) on Tue12/01/22 at 2100, Until Discontinued, Routine Given 12/16/2022 8:45 AM EDT 600 mg Given 12/15/2022 8:50 PM EDT 600 mg Given 12/15/2022 2:15 PM EDT 600 mg gelatin compressed (Gelfoam) sponge PRN, Starting on Tue12/02/22 at 1448, Until Tue12/16/22 at 1500, Intra-Operative (Intra-Procedure) Given 12/02/2022 2:48 PM EDT 100 cm 19- Surgical Site heparin (porcine) (5,000 units/1 mL) subcutaneous injection 5,000 Units 5,000 Units, Subcutaneous, EVERY 12 HOURS SCHEDULED (2 times per day), First dose on Tue12/03/22 at 1030, Until Discontinued, Routine Given 12/16/2022 8:46 AM EDT 5,000 Units Given 12/15/2022 8:51 PM EDT 5,000 Units Given 12/15/2022 8:44 AM EDT 5,000 Units lidocaine (Lidoderm) 5% patch 3 patch 3 [...] 3 patches 20-Other (document in comment section) lidocaine-EPINEPHrine (1% - 1:100,000) injection PRN, Starting on Tue12/02/22 at 1604, Until Tue12/16/22 at 1500, Intra-Operative (Intra-Procedure), Routine Given 12/02/2022 4:04 PM EDT 10 mLs 19- Surgical Site loratadine (Claritin) tablet 10 mg 10 mg, [...] mg/24 hours, Routine oxyCODONE (Roxicodone) tablet 10-20 mg 10-20 mg, [...] Given 12/16/2022 4:28 AM EDT 20 mg polyethylene glycoL (Miralax) packet 17 g 17 g, Oral, DAILY, First dose on Tue12/06/22 at 0900, Until Discontinued, Routine Given 12/16/2022 [...] Given 12/04/2022 10:49 AM EDT 5 mLs sucralfate (Carafate) tablet 1 g 1 g, Oral, 2 TIMES DAILY BEFORE MEALS, First dose on Tue12/01/22 at 1630, Until Discontinued, Routine Given 12/16/2022 8:44 AM EDT 1 g Given 12/15/2022 3:34 PM EDT 1 g Given 12/15/2022 8:44 AM EDT 1 g thrombin (Bovine) (Thrombinar) kit PRN, Starting on Teresa 12/02/22 at 1448, Until Teresa 12/16/22 at 1500, Intra-Operative (Intra-Procedure) Given 12/02/2022 2:48 PM EDT 20,000 Units 19- Surgical Site vancomycin (Vancocin) injection PRN, Starting on Teresa 12/02/22 at 1537, Until Teresa 12/16/22 at 1500, Intra-Operative (Intra-Procedure), Routine Given 12/02/2022 3:37 PM EDT 1 g 19- Surgical Site documented in this encounter Active and Recently [...] Cristina Gan RN)1111 (Given - Provider: Mayuri Patel RN)1726 (Given - Provider: Mayuri Patel RN)2331 (Given - Provider: Crsitina Gan RN) 0531 (Given - Provider: Cristina Gan RN)1207 (Given - Provider: Mayuri Patel RN)1820 (Given - Provider: Nicolasa Prince LPN) 0046 (Given - Provider: Cindy Morejon RN)0554 (Given - Provider: Cindy Morejon RN)1202 (Given - Provider: Mali Forde RN) amitriptyline (Elavil) tablet 100 mg 100 mg, [...] Morejon RN) 0844 (Given - Provider: Mali Forde RN) famotidine (Pepcid) (10 mg/mL) injection 20 mg(Linked Group 1) 20 mg, Intravenous, 2 TIMES DAILY, First dose on Tue12/01/22 at 1118, Until Discontinued, Routine 0816 (See Alternative - Provider: Nicolasa Prince LPN)2054 (See Alternative - Provider: Cristina Gan RN) 0845 (See Alternative - Provider: Nicolasa Prince LPN)2049 (See Alternative - Provider: Cindy Morejon RN) 0845 (See Alternative - Provider: Mali Forde RN) famotidine (Pepcid) tablet 20 mg(Linked Group 1) 20 mg, Oral, 2 TIMES DAILY, First dose on Tue12/01/22 at 1118, Until Discontinued, If unable to take PO, may give IV, Routine 0816 (Given - Provider: Nicolasa Prince LPN)2054 (Given - Provider: Cristina Gan RN) 0845 (Given - Provider: Nicolasa Prince LPN)2049 (Given - Provider: Cindy Morejon RN) 0845 (Given - Provider: Mali Forde RN) gabapentin (Neurontin) capsule 600 mg 600 mg, Oral, 3 TIMES DAILY, First dose (after last modification) on Tue12/01/22 at 2100, Until Discontinued, Routine 0816 (Given - Provider: Nicolasa Prince LPN)142 (Given - Provider: Mayuri Patel RN)2054 (Given - Provider: Cristina Gna RN) 0844 (Given - Provider: Nicolasa Prince LPN)141 (Given - Provider: Mayuri Patel RN)2049 (Given - Provider: Cindy Morejon RN) 08 (Given - Provider: Mali Forde RN) heparin (porcine) (5,000 units/1 mL) subcutaneous injection 5,000 Units 5,000 Units, Subcutaneous, EVERY 12 HOURS SCHEDULED (2 times per day), First dose on Tue12/03/22 at 1030, Until Discontinued, Routine 0816 (Given - Provider: Nicolasa Prince LPN)2057 (Given - Provider: Cristina Gan RN) 08 (Given - Provider: Nicolasa Prince LPN)2050 (Given - Provider: Cindy Morejon RN) 0846 (Given - Provider: Mali Forde, OLIVIA) [...] Cristina Gan RN)1230 (Given - Provider: Mayuri Patel, RN)2056 (Given - Provider: Cristina Gan RN) 0531 (Given - Provider: Cristina Gan RN)1230 (Given - Provider: Mayuri Patel RN)2030 (Given - Provider: Cindy Morejon, OLIVIA) 0430 (Given - Provider: Cindy Morejon, OLIVIA)1230 (Given - Provider: Mali Forde RN) nicotine [...] and location) verified - Provider: Nicolasa Prince LPN)2100 (Patch (dose and location) verified - Provider: Cindy Morejon RN - Comment: R ahmet) 0855 (Patch (dose and location) verified - Provider: Mali Forde RN) polyethylene glycoL (Miralax) packet 17 g 17 g, Oral, DAILY, First dose on Tue12/06/22 at 0900, Until Discontinued, Routine 0900 (Not Given - Provider: Nicolasa Prince LPN - Reason: Patient/family refused) 0848 (Given - Provider: Nicolasa Prince LPN) 0844 (Given - Provider: Mali Forde, OLIVIA) QUEtiapine (SEROquel) tablet 100 mg 100 mg, Oral, NIGHTLY, First dose on Tue12/01/22 at 2100, Until Discontinued, Routine 2055 (Given - Provider: Cristina Gan RN) 2049 (Given - Provider: Cindy Morejon RN) senna-docusate (Pericolace) 8.6-50 mg per tablet 2 tablet 2 tablet, Oral, 2 TIMES DAILY, First dose on Tue12/01/22 at 1118, Until Discontinued, Hold for loose stool. , Routine 08 (Given - Provider: Nicolasa Prince LPN)2054 (Given - Provider: Cristina Gan RN) 0844 (Given - Provider: Nicolasa Prince LPN)2049 (Given - Provider: Cindy Morejon RN) 0845 (Given - Provider: Mali Forde, OLIVIA) sodium chloride 0.9 % (flush) (BD PosiFlush Normal Saline 0.9) flush 5 mL 5 mL, Intravenous, 2 TIMES DAILY, First dose on Tue12/01/22 at 1118, Until Discontinued, Recovery (Recovery-Hospital Unit), Routine 817 (Given - Provider: Nicolasa Prince LPN)2057 (Given - Provider: Cristina Gan RN) 0856 (Given - Provider: Nicolasa Prince LPN)2051 (Given - Provider: Cindy Morejon RN) 0850 (Given - Provider: Mali Forde, OLIVIA) sucralfate (Carafate) tablet 1 g 1 g, Oral, 2 TIMES DAILY BEFORE MEALS, First dose on Tue12/01/22 at 1630, Until Discontinued, Routine 0746 (Given - Provider: Nicolasa Prince LPN)1555 (Given - Provider: Mayuri Patel, OLIVIA) 0844 (Given - Provider: Nicolasa Prince LPN - Comment: pt sleeping)1534 (Given - Provider: Mayuri Patel RN) 0844 (Given - Provider: Mali Forde RN) PRN Medication Order 12/14/2022 12/15/2022 12/16/2022 bisacodyL (Dulcolax) suppository 10 mg 10 mg, Rectal, DAILY PRN, Starting on Tue12/05/22 at 2051, Until Tue12/16/22 at 1500, Constipation, Routine calcium carbonate (TUMS) chewable tablet 500 mg 500 mg, Oral, DAILY PRN, Starting on Tue12/08/22 at 1141, Until Tue12/16/22 at 1500, Heartburn, Routine 0434 (Given - Provider: Cindy Morejon RN) dextromethorphan (Robitussin) capsule 15 mg 15 mg, Oral, EVERY 4 HOURS PRN, Starting on Tue12/05/22 at 2054, Until Tue12/16/22 at 1500, Cough, Routine diazePAM (Valium) tablet 5 mg 5 mg, Oral, EVERY 6 HOURS PRN, Starting on Tue12/03/22 at 0635, Until Tue12/16/22 at 1500, muscle spasms, Routine 2055 (Given - Provider: Cristina Gan RN) 0530 (Given - Provider: Cristina Gan RN)1415 (Given - Provider: Mayuri Patel RN)2142 (Given - Provider: Cindy Morejon, OLIVIA) 0554 [...] at 1116, Until Teresa 12/16/22 at 1500, High Blood Pressure, Target systolic [...] at 1116, Until Teresa 12/16/22 at 1500, High Blood Pressure, Target systolic [...] Oral, EVERY 8 HOURS PRN, Starting on 12/01/22 [...] Prince LPN)2120 (See Alternative - Provider: Cindy Morejon RN) 0047 (See Alternative - Provider: Cindy Morejon RN)0428 (See Alternative - Provider: Cindy Morejon RN)0845 (See Alternative - Provider: Mali Forde RN)1203 (See Alternative - Provider: Mali Forde, OLIVIA) [...] Patel RN)1727 (Given - Provider: Mayuri Patel RN)2055 (See Alternative - Provider: Cristina Gan RN)2332 [...] Cindy Morejon RN)0845 (Given - Provider: Mali Forde RN)1203 (Given - Provider: Mali Forde, OLIVIA) [...] Routine documented in this encounter Care Teams Tooth Cutter Contact Wheel Relationship Specialty Start Date End Date Lena Womack, CLOTH CLASSER PCP - General Family Medicine 08/02/22 documented as of this encounter
--- OUTSIDE RECORDS SUMMARY | 2024-02-12 18:07 | XMS_ITS | Encounter Summary ---
Author Organization [facility] [place] [address] Care Team Providers Care Metal Checker Name Role Phone eLna Womack APRN Primary Care Provider [phone] Encounter Details Date Type Department Care Team (Late st Contact Info) Description 09/25/2022 Telephone [place] [address] [facility] [place] [address] Social History Tobacco Use Types Packs/Day Years [...] encounter Miscellaneous Notes * Telephone Encounter - Gloria Hdz MD - 09/25/2022 12:02 PM EDT Called via the TC about this patient we had previously consulted on for a paracentral L L5/S1 disc herniation and T12 compression fx. She initially presented 08/02/22 with c/o progressive back pain [id number] with lower extremity numbness found to have large adnexal mass as well as left paracentral disc herniation. She was noted to have diminished sensation from T8 downward w/o myelopathic signs on exam. An Mri was done showing an acute compression fx of T12 w 20% height loss with minimal posterior bony retropulsion that contributed to mild canal narrowing (hx of fall after tripping over a dog).A small disc herniation was present at L5-S1 w mild displacement of the L S1 root. She underwent a laparotomy for removal of the large ovarian mass, which returned a serous cystadenofibroma. Symptomsof abdominal and back pain improved after surgery. She returned to the OSH today because she woke up being unable to move her left leg and then thought her left hand was also weak. Per the calling provider, she cannot lift her left leg off the bed,but she has full strength distally. She also has 4/5 weakness in hand blockmason on the left, but her face is symmetrical, and the remainder of her arm is full strength. No sensory changes...still has some paresthesias/numbness in b/l medial thighs, which she had at presentation in July. She has normal rectal tone. The patient reported that when EMS got her up to use the bathroom, she could not initiate a void and when she arrived at the hospital was SC for ~500. Her R side is unaffected. CT of the abdomen and pelvis showing mild thickening of the bladder w ?cystitis, but her UA was benign. According to [facility] [employer] DC notes, she did have urinary incontinence and frequency at home, but the patient is now stating that it is different. The spine recons show progression of the T12 fractureto now have ~50% height loss. 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 NSGY is called to inquire about the need to get further imaging and evaluation by a spine surgeon. Firstly, the proximal leg and distal hand weakness is difficult to localize w/o new sensory symptoms and no cranial findings. The most likely location of pathology for L hemiparesis sparing the face is the C spine, which was not imaged other than the CTA. She does have calcified ligamentum flavum at C6-7, which could result in canal narrowing. The T12 fracture has slightly progressed, still with a small retropulsed bone fragment at the posterior superior edge. Alignment is not significantly changed from MRI T/L spine on 08/02/22. Uncertain etiology of current presentation. I wonder how much of her leg weakness is due to pain-limitation because her HF is weak, but distally, she is full strength. Asked the provider to test for withdrawal to assess this better. Her urinary changes are concerning, though, and the fracture was at the level of the conus. Again, symptoms of hand weakness do not fit with this fracture level. At this point, would recommend getting a MRI of the spine including the C spine due to the above, and of course, to check the canal patency around T12/L1. Our hospital does not have capacity. [facility] will be called. Gloria Hdz MD 09/25/2022 12:26 PM [facility] Neurosurgery documented in this encounter Plan of Treatment Upcoming Encounters Date Type Department Care Team (Late st Contact Info) Description 03/07/2024 10:00 AM EDT Appointment XRay at [address] [place] [address] [facility] [place] [address] 03/07/2024 10:40 AM EDT Office Visit Neurosurgery at [facility] [place] [address] [facility] [place] [address] documented as of this encounter Visit Diagnoses Not on filedocumented in this encounter Care Teams Metal Checker Relationship Specialty Start Date End Date Lena Womack APRN PCP - General Family Medicine 08/02/22 documented as of this encounter
--- OUTSIDE RECORDS SUMMARY | 2024-02-12 18:07 | XMS_ITS | Encounter Summary ---
Author Organization [facility] Address [facility] [place] [address] Care Team Providers Care Microcomputer Support Specialist Name Role Phone BrunoLena eddy Ronal MEJIA Primary Care Provider [phone] Encounter Details Date Type Department Care Team (Latest Contact Info) Description 11/30/2022 Travel Social History Tobacco Use Types Packs/Day [...] 03/07/2024 10:00 AM EDT Appointment XRay at [address] [place] [address] Tien Zurita MD [facility] [place] [address] 03/07/2024 10:40 AM EDT Office [place] [address] Angel Hankins PA [facility] [place] [address] documented as of this encounter Visit Diagnoses Not on filedocumented in this encounter Care Teams Microcomputer Support Specialist Relationship Specialty Start Date End Date Lena Womack APRN PCP - General Family Medicine 08/02/22 documented as of this encounter
--- OUTSIDE RECORDS SUMMARY | 2024-02-12 18:07 | XMS_ITS | Encounter Summary ---
Author Organization [facility] [place] [address] Care Team Providers Care Lead Business Analyst Name Role Phone Brunonunu Lena Nunu MEJIA Primary Care Provider [phone] Encounter Details Date Type Department Care Team (Late st Contact Info) Description 09/25/2022 External Results [place] [address] Social History Tobacco Use Types Packs/Day Years [...] 03/07/2024 10:00 AM EDT Appointment XRay at [address] [place] [address] Tien Zurita MD [facility] [place] [address] 03/07/2024 10:40 AM EDT Office [place] [address] Angel Hankins PA [facility] [place] [address] documented as of this encounter Procedures Procedure Name Priority Date/Time Associated Diagnosis Comments ECG SCAN Routine 09/25/2022 documented in this encounter Results * Scan Doc: ECG (09/25/2022) Historical Provider MEDIA MGR SCAN EX T ORDR/RSLT documented in this encounter Visit Diagnoses Not on filedocumented in this encounter Care Teams Lead Business Analyst Relationship Specialty Start Date End Date Lena Womack APRN PCP - General Family Medicine 08/02/22 documented as of this encounter
--- OUTSIDE RECORDS SUMMARY | 2024-02-12 18:07 | XMS_ITS | Encounter Summary ---
Author Organization [facility] Address [facility] [place] [address] Care Team Providers Care Wood Gang Sawyer Name Role Phone Shanta Lena Villeda APRN Primary Care Provider [phone] Reason for Visit * Reason Onset Date Comments Procedure 2022 Encounter Details Date Type Department Care Team (Late st Contact Info) Description 2022 Telephone [place] [phone] Tien Zurita MD [facility] [place] [address] Procedure Social History Tobacco Use Types Packs/Day Years [...] encounter Miscellaneous Notes * Telephone Encounter - Rosaura Trujillo - 11/11/2022 2:[address] Zurita, CT C spine in eDh for you to review for surgical planning. Thank you, Rosaura * Telephone Encounter - Tosin Sr - 11/09/2022 3:29 PM EDT Postponing until 11/11/22 so imaging can be requested if not in eDH and message to Dr. Zurita can be sent. * Telephone Encounter - Carlene Hannon - 11/09/2022 3:22 PM EDT Babar from [facility] returned a call from Tosin. Babar stated the patients CT is scheduled for 11/10/22 at 8:00am * Telephone Encounter - Tosin Sr - 11/09/2022 3:15 PM EDT LM at [facility] requesting they call back to advise if patient's CT C spine has been scheduled and when. * Telephone Encounter - Rena Tom - 2022 3:[address] C-spine to [facility] to be scheduled [phone] Send IB message to Dr. Zurita to review CT C-spine results for surgical planning. ~~~~~~~~~~~~~~~~~~~~~~~~~~~~~~~~~~~~~~~~~~~~~~~~~~~~~~~~~~~~~~~ Katheryn Carranza - 11/03/22 Tien Zurita MD Sent: TueNovember 03, 2022 ??4:14 PM To: [facility] [place] ?? Follow-up and Dispositions Check-out Note: Pre-op Needs CT C spine for pre-op planning - wants to have performed at [facility]. PCP - Lena Womack can perform pre-operative medical assessment and lab work will be ordered as external to be done at [facility]. documented in this encounter Plan of Treatment Upcoming Encounters Date Type Department Care Team (Late st Contact Info) Description 03/07/2024 10:00 AM EDT Appointment XRay at [address] [place] [address] Tien Zurita MD [facility] [place] [address] 03/07/2024 10:40 AM EDT Office Visit Neurosurgery at [facility] [place] [phone] Angel Hankins PA [facility] [place] [address] documented as of this encounter Visit Diagnoses Not on filedocumented in this encounter Care Teams Wood Gang Sawyer Relationship Specialty Start Date End Date Lena Womack, JACKIE PCP - General Family Medicine 08/02/22 documented as of this encounter
--- NOTE | 2024-02-12 18:08 | DI.VRAD_ITS ---
PROCEDURE INFORMATION: Exam: XR Left Humerus Exam date and time: 02/12/2024 5:07 PM Age: 63 years old Clinical indication: Upper arm and shoulder; Patient HX: Left shoulder/arm pain; Per PT is shoulder area of arm TECHNIQUE: Imaging protocol: Radiologic exam of the left humerus. Views: 2 or more views. COMPARISON: CR XR SHOULDER LT COMPLETE 2+V 02/12/2024 5:03 PM FINDINGS: Bones/joints: Anterior inferior dislocation of the humeral head with impaction on the inferior glenoid. There is a displaced greater tuberosity Hill-Sachs fracture. No scapular fracture evident. Severe AC joint degeneration. Humeral shaft is unremarkable. Soft tissues: Mild soft tissue swelling at the shoulder. No gas or foreign body. IMPRESSION: 1. Humeral head Hill-Sachs fracture with displacement of the greater tuberosity. 2. Anterior inferior glenohumeral dislocation. 3. Severe AC joint degeneration. Dictated and Authenticated by: Bobo Nieves MD. Ordering:[facility] Naa Hernadez MD
--- OUTSIDE RECORDS SUMMARY | 2024-02-12 18:08 | XMS_ITS | Encounter Summary ---
Author Organization [facility] Address [facility] [place] [address] Care Team Providers Care Animal Doctor Name Role Phone Lena Womack APRN Primary Care Provider [phone] Reason for Visit * Reason Comments Abdominal Pain Left ovarian mass Back Pain Fall * Auth/Cert (Routine) Specialty Diagnoses / Procedures Referred By Contac t Referred To Contact Diagnoses Adnexal mass Antonio Rojas MD [facility] [place] [address] [facility] Referral ID Status Reason Start Date Expiration Date Visits Re quested Visits Authorized [id number] 1 1 Encounter Details Date Type Department Care Team (Late st Contact Info) Description 08/05/2022 12:41 PM EST - 08/05/2022 1:11 PM EST [place] [address] Donnie Obrien [place] [address] EGD, UPPER GI ENDOSCOPY (WRVU 2.09) Social History Tobacco Use Types Packs/Day Years [...] Sign Reading Time Taken Comments Blood Pressure 151/105 08/05/2022 11:30 AM EST Pulse 76 08/02/2022 11:00 PM EST Temperature 36.6 ??C (97.9 ??F) 08/05/2022 11:[address] Respiratory Rate 18 08/05/2022 11:30 AM EST Oxygen Saturation 92% 08/05/2022 11:30 AM EST Inhaled Oxygen Concentration - - Weight 97.5 kg (215 lb) 08/01/2022 8:16 PM EST Height 165.1 cm (5' 5) 08/01/2022 8:16 PM EST Body Mass Index 36.69 08/01/2022 8:16 PM EST documented in this encounter Discharge Summaries * Sharon Tse MD - 08/08/2022 1:44 PM EST Discharge Summary Patient Name: Katheryn Carranza Patient Age: 61 y.o. Language: Prydeinig Race: White Ethnicity: Not nor Admit date: [...] Inpatient Provider Contact Information: Dr. Antonio Rojas, [facility] Gynecologic Oncology, Discharge Diagnoses (Hospital Problems) [...] 07/29/21, she presented to the ED at [facility]. She had a CTAP demonstrating a 15cm complex left adnexal mass. She also had a CT spine performed without acute findings. Patient was dispositioned to outpatient follow-up with [facility] [place] [facility] [place] ?? Tonight, she reports [...] There were no concern for malignancy. #Pain: ROAD MONKEY started for pain control for her abdominal and back pain. BIT team consulted due to using opioids without Rx at home and to assist with overall assessment and plan for going home. ROAD MONKEY was eventually transitioned to PO tylenol, ibuprofen, [...] 3 wbc, hgb, hct plt Recent Labs 08/04/22 2324 08/01/22 2215 WBC [...] Yellow Yellow Appearance UA Clear Clear Spec [place] UA 1.005 - 1.030 1.011 pH UA [...] Tumor markers 08/01/22: CA-125=40.8 / CEA=2.2 / PF27-6=4.1 Studies: EGD 08/05/22: ??The examined esophagus was [...] 90 tablet Refills: 3 naloxone 4 mg/actuation Emerald Commonly known as: Narcan 1 each by [...] 0 dihydroergotamine 0.5 mg/pump act. (4 mg/mL) Emerald Commonly known as: MIGRANAL One spray per [...] as needed. Refills: 0 Miscellaneous Medical Supply [facility] Bilateral wrist splints for CTS Quantity: 2 [...] PATIENT DISCHARGE INSTRUCTIONS Gynecologic Oncology phone number: [phone] (Nurse ext 4 then 4; appointment ext 1 then 4). After hours and on weekends please call hospital sinter press operator at [phone] and ask for Gynecologic Oncologist correctional supply supervisor. Call your doctor if you develop: --A [...] useof opioid medications, here are some options: [facility], [facility] Saumya Kumari, Drug & Alcohol Counselor, [place], [facility] [address] [place], [place] [address] Offers online therapy Watson Wiley, Drug & Alcohol Counselor, MS, LAD, [facility], MAC 4 [facility] [address] [place] [address] Offers online therapy [facility] Asha Quintana, Drug & Alcohol Counselor, MA, [facility], [place], [place] [address] Offers online therapy [facility], [facility] Ara Pratt, Drug & Alcohol Counselor, [facility], [facility] [address] [place], [place] [address] Offers online therapy [facility] Jose Miguel Dominique, Pre-Licensed Professional, REAL ESTATE ASSOCIATE ATTORNEY [address] [place], [place] [address] x9 Scott Young, Drug & Alcohol Counselor, MS, [facility], NCC [address] [place], [place] [address] Offers online therapy Dr. Michel Junior, Drug & Alcohol Counselor, [facility], [place], [facility], [facility], BSBM [address] [facility] [address] [place], [place] [phone] Offers online therapy To review the profiles of private practice therapists, including ones listed above: 1) Visit www.psychologytoday.com 2) Enter your city name or zip code 3) Filter search results on the right hand side, including by insurance 4) Review therapist profiles 5) Call to schedule an intake appointment Residential Treatment: [facility] An [facility] [address] [place], [place] [phone] [facility] [address] [place], [place] [phone] [facility] Behavioral Health [address] [place] [address] [address] Medication Assisted Therapy: [facility] Behavioral Health [facility] [place] [address] [place] [phone] Services: Buprenorphine treatment Substance use treatment People with trauma, people with HIV or AIDS and people with co-occurring pain and substance use Naltrexone administration, methadone maintenance and suboxone prescription Peer Support Groups Narcotics Anonymous (NA) [place]: , www.gsana.org Online NA Meetings NA Video Meetings www.Nanotech Securityna.org/meetings NA Text Chat Meetings Www.TC Ice CreamneAttendifyub.org SMART Recovery Meetings via Zoom 5:00-6:00pm, free and open to all To join Zoom meetin. Visit www.Saguaro Group 5. Click on calendar on top of toolbar 6. Find the correct meeting date and time 7. Click the zoom link and enter password provided 211: [facility] The [facility], managed by [facility], is located at [address] [place] [address] in [place]. It offers screening as well as other services onsite, and connects clients with the care that is most appropriate for their needs. Services are accessible anytime, day or night, by calling 2-1-1. Overnight, respite care is available in [facility] and [facility]. Additional Substance Use Treatment Resources www.[facility].mn.gov/dcbcs/bdas/documents/vyzochho-rjdct-pduhezhxj.pdf www.psychologytoday.com/ Www.rethinkingdrinking.niaaa.nih.gov/ www.samhsa.gov/xglvhewzwv-rqhqeixb-priwdcsua/tstwthnariqh-ncueikf-vozt/treatment -practitioner-enterprise services manager Mental Health Crisis [place] [facility] Crisis Line: Dial 988 www.[facility] hospitalhsa.gov/find-help/981 Harm-Reduction Resources Mobile harm-reduction. For more information about receiving supplies: including syringe exchange, fentanyl test strips, and naloxone, or to schedule an appointment: [place] clients call and leave a message for Nancy (ext. 105) or Mateo Cruz (ext. 104). [place] clients call to speak with Mateo Feliz www.[facility].mn.gov/dphs/bchs/std/documents/sspregistrations.pdf Warning Illicit drugs do not come with [...] is being approved. Online Stress Reduction Resources www.Physician Software Systems/videos-features/videos/ynyjoslmu-vhspchnjv-7-7-8-breath/ www.KartoonArtord.org/2012/eyzednfbe-jneapwgdf-epllrrv-moment/ www.TYMR/ www.mindful.org/ www.freeMaxymiserness.org/ Future Appointments and Orders Future Appointments and Orders Future Appointments Provider Department Dept Phone 08/16/2022 10:00 AM Antonio Rojas MD Gynecology [place] [facility] Arrive at: Elevated Guard Area [phone] 08/16/2022 11:00 AM Vat Overhauler, Onc Nurse Gynecology Oncology at [facility] Arrive at: Elevated Guard Area [phone] Discharge References/Attachments Prediabetes (Prydeinig) Provider Contact Information: Lena Womack, TAPERING MACHINE OPERATOR [phone] documented in this encounter Discharge Instructions * Discharge Instructions* Sharon Tse MD - 08/05/2022 10:57 AM EST Substance Use Disorder Resources From BIT (Behavioral Intervention Team), Inpatient psych services: If you are interested in receiving some counseling support related to reducing or stopping your useof opioid medications, here are some options: [facility], [facility] Saumya Kumari, Drug & Alcohol Counselor, MS, [facility] [address] [place], [place] [phone] Offers online therapy Watson Wiley Drug & Alcohol Counselor, MS, [facility], [facility], [facility] [address] [place], [place] [phone] Offers online therapy [facility] Asha Quintana, Drug & Alcohol Counselor, MA, [facility], [place], [place] [address] Offers online therapy [facility], [facility] Ara Pratt, Drug & Alcohol Counselor, [facility], [facility] [address] [place], [place] [address] Offers online therapy [facility] Jose Miguel Dominique, Pre-Licensed Professional, REAL ESTATE ASSOCIATE ATTORNEY [address] [place], [place] [address] x9 Scott Young, Drug & Alcohol Counselor, MS, [facility], NCC [address] [place], [place] [address] Offers online therapy Dr. Michel Junior, Drug & Alcohol Counselor, [place], MA, [facility], Th, BSBM [address] [facility] [address] [place], [place] [phone] Offers online therapy To review the profiles of private practice therapists, including ones listed above: 1) Visit www.psychologyAvalon Health Management.com 2) Enter your city name or zip code 3) Filter search results on the right hand side, including by insurance 4) Review therapist profiles 5) Call to schedule an intake appointment Residential Treatment: [facility] An [facility] [place], [place] [phone] [facility] [address] [place], [place] [phone] [facility] Behavioral Health [address] [place] [address] [facility] [address] [facility] [place] [address] Medication Assisted Therapy: [facility] is [place] [address] [place] [address] Services: Buprenorphine treatment Substance use treatment People with trauma, people with HIV or AIDS and people with co-occurring pain and substance use Naltrexone administration, methadone maintenance and suboxone prescription Peer Support Groups Narcotics Anonymous (NA) [place]: , www.gsana.org Online NA Meetings NA Video Meetings www.Nanotech Securityna.org/meetings NA Text Chat Meetings Www.OriginOilaloneclub.org SMART Recovery Meetings via Zoom 5:00-6:00pm, free and open to all To join Zoom meeting: Visit www.Saguaro Group Click on calendar on top of toolbar Find the correct meeting date and time Click the zoom link and enter password provided 211: The Doorway to Recovery The [facility], managed by [facility], is located at [address] [place] [address] in [place]. It offers screening as well as other services onsite, and connects clients with the care that is most appropriate for their needs. Services are accessible anytime, day or night, by calling 2-1-1. Overnight, respite care is available in [facility] and [facility]. Additional Substance Use Treatment Resources www.dhhs.nh.gov/dcbcs/bdas/documents/eneyxlqw-uozvd-hnoybcads.pdf www.psychologytoday.com/ Www.rethinkingdrinking.niaaa.nih.gov/ www.samhsa.gov/kglayvwoea-qgbxehwg-ckvodqtng/aezqaydolqvy-ynhtlix-tdkl/treatment -practitioner-enterprise services manager Mental Health Crisis [place] [facility] Crisis Line: Dial 988 www.[facility].gov/find-help/988 Harm-Reduction Resources Mobile harm-reduction. For more information about receiving supplies: including syringe exchange, fentanyl test strips, and naloxone, or to schedule an appointment: [place] clients call and leave a message for Nancy (ext. 105) or Mateo Cruz (ext. 104). [place] clients call to speak with Mateo Feliz www.[facility].mn.gov/dphs/bchs/std/documents/sspregistrations.pdf Warning Illicit drugs do not come with [...] is being approved. Online Stress Reduction Resources www.Sooligan.Kustom Codes/videos-features/videos/cfckgtkxh-sbffthmrs-3-7-8-breath/ www.themindfulword.org/2013/jevrjqzjf-auivvvsbh-zejlqjl-moment/ www.headsAdaptly.Kustom Codes/ www.mindful.org/ www.freemindfulness.org/ * Patient Instructions* Sharon Tse MD - 08/03/2022 9:56 AM EST PATIENT DISCHARGE INSTRUCTIONS Gynecologic Oncology phone number: [phone] (Nurse ext 4 then 4; appointment ext 1 then 4). After hours and on weekends please call hospital sinter press operator at [phone] and ask for Gynecologic Oncologist correctional supply supervisor. Call your doctor if you develop: --A [...] be sent through Care Everywhere. * Prediabetes (Prydeinig) documented in this encounter Medications at Time [...] herniation, torsion present Significant 24 hour events: 305AM: Pt A&Ox4. VSS, on RA. Blood pressure WNL once AM BP meds given. Does not endorse nausea, tolerated regular diet for breakfast/lunch. Abd. pain present. ROAD MONKEY discontinued this AM and patient transitioned to [...] 0400 100 kg (220 lb 7.4 oz) 08/01/222015 97.5 kg (215 lb) Gen: Resting [...] of opioid dependence ??? Ordered for dilaudid ROAD MONKEY due to patient discomfort and NG tube [...] EST Patient seen and examined with the college recruiter oncology team. I agree with their assessment [...] herniation, torsion present Significant 24 hour events: 304AM: Pt A&Ox4. VSS, on RA. Pt slightly hypertensive this AM - initiated PO home blood pressure medication. Team aware. BP decreased this afternoon. Does not endorse nausea. Abd. pain present, but denies need for intervention. On dilaudid RO[address] MONKEY and scheduled pain meds with good effect. [...] Yellow Yellow Appearance UA Clear Clear Spec [place] UA 1.005 - 1.030 1.011 pH UA [...] of opioid dependence ??? Ordered for dilaudid RO[address] MONKEY due to patient discomfort and NG tube [...] EST Patient seen and examined with the college recruiter oncology team. I agree with their assessment [...] but denies need for intervention. On dilaudid RO[address] MONKEY and scheduled pain meds with good effect. [...] Pain continues to be managed with Dilaudid RO[address] MONKEY and tylenol. Diet changed to NPO give [...] Pri[place], in a two level home in [place], [place]. Bedroom and bathroom she typically uses [...] per neurosurg) Lines: Ted, PIV, NG tube, ROAD MONKEY Activity Orders: Up with assistance Diet: NPO [...] moderate mid-low back with transfers, pt used ROAD MONKEY at start of session and end of [...] benefit from a short rehab stay [facility] to progress mobility and maximize [...] Therapy: 29 Billing Code: TEF x2 Demetra Hess PT Pager: [phone] Physical Therapy Inpatient Rehabilitation Department * Fifi Valles, RD - 08/06/2022 12:04 [...] Typical intake is 2-3 meals/day includingyogurt and Kiswahili toast with syrup, sandwich with cheese and deli meat for lunch and meat/potatoes/vegetable for dinner. Drinks coffee with sugar and flavored creamer. Denies changes in intake, appetite or weight INSIDE SALES COORDINATOR. Reviewed sources of added sugar in diet [...] was able to discuss plan with provider [facility] Onc [phone]. Fifi [address] RD Pager #: [phone] * Lola Barahona MD - 08/06/2022 6:48 [...] 5mg q4 hours and IV hydralazine Subjective: Katherny reports feeling pain due to the NG [...] 3.6 4.1 CL 99 101 101 CO2 23 BUN 10 10 13 CREATININE 0.65* 0.70 0.78 Latest Reference Range & Units 08/05/22 10:47 Color UA Yellow Yellow Appearance UA Clear Clear Spec [place] UA 1.005 - 1.030 1.011 pH UA [...] of opioid dependence ??? Ordered for dilaudid RO[address] MONKEY due to patient discomfort and NG tube [...] LR continued at 100 mL/hr and dilaudid RO[address] MONKEY in use. Patient sleeping between nursing care. [...] Fluids restarted. Suppository given. Controlling pain with ROAD MONKEY pump. * Jeannine Amos OT - 08/05/2022 [...] up as able and when appropriate. Pager: [phone] Jeannine Amos OT 08/05/2022 Occupational Therapy Rehabilitation [...] into upper-abdominal tightness overnight followed by vomiting. [place] warm earlier but no fever or chills. [...] herniation, torsion present Significant 24 hour events: 3 PM: Incision dressing has scant dried drainage unchanged from previous assessment, otherwise intact. BPs continue to be elevated - MD aware, Metoprolol 5 mg IVP given w/little effect, see VS flowsheet. Patient c/o -03/15 abd pain & indigestion, notified and assessed pt. IV Protonix, IV [...] after CT, MD notified. IV Reglan given. down and gen surg consulted, NG tube placed [...] to her uncontrolled pain. Discussed with pharmacist correctional supply supervisor- okay to treat with 1x dose metoprolol [...] of care otherwise pending CT results Addendum: 022 CTAP: IMPRESSION Findings suggesting pyelonephritis of the [...] endoscopy - NPO hold meds - 18 Kiswahili NGT placed to 58cm with >1L output. [...] back with [address] Dilaud[address] MON[address] discontinued and started on PO oxycodone - [...] MAMMOPLASTY, EVA performed by DEMETRA SOMMERS at [facility] MAIN OR ??? PRO LAP, DIAGNOSTIC ABDOMEN Left 08/02/2022 LAPAROSCOPY, DIAGNOSTIC, ABDOMEN (WRVU 5.14) performed by Antonio Rojas MD at [facility] MAIN OR ??? PRO REMOVAL OF OVARY/TUBE(S) Left 08/02/2022 @SALPINGO-OOPHORECTOMY, UNILATERAL OR EVA (WRVU 12.16) performed by Antonio Rojas MD at [facility] MAIN OR Active Non-Hospital Problems Diagnosis [...] thoracic compression fracture per neurosurgery Lines: fournier, PIV Activity Orders: up with assistance Mobility and [...] outlinedin this evaluation. Time IN / OUT: 3745-8776 Total Minutes, Physical Therapy: 37 Dawn Fung PT Pager: [phone] Physical Therapy Inpatient Rehabilitation Department * Nevaeh [...] MAMMOPLASTY, EVA performed by DEMETRA SOMMERS at [facility] MAIN OR ??? PRO LAP, DIAGNOSTIC ABDOMEN Left 08/02/2022 LAPAROSCOPY, DIAGNOSTIC, ABDOMEN (WRVU 5.14) performed by Antonio Rojas MD at [facility] MAIN OR ??? PRO REMOVAL OF OVARY/TUBE(S) Left 08/02/2022 @SALPINGO-OOPHORECTOMY, UNILATERAL OR EVA (WRVU 12.16) performed by Antonio Rojas MD at [facility] MAIN OR Social History: Home Setup: [...] Educated on and demonstrated adaptive techniques with senior label specialist and sock aide. Pt doffed socks sitting EOB with supervision and senior label specialist. Pt donned underwear seated EOB with supervision, senior label specialist, and min cues for technique. Pt donned [...] throughout session. Pt demonstrated good carryover with senior label specialist and sock aide for donning underwear and [...] and measurable assessment of functional outcome. Nevaeh Winchester Krystyna 08/04/2022 Occupational Therapy Rehabilitation Department Associated attestation - Jeannine Amos OT - 08/04/2022 4:52 PM EST Patient status, treatment interventions, and goals discussed with student. I am in agreement with all details and associated flowsheet rows as documented and was present for all aspects of the patient treatment session. Treatment session performed and note written with this sports book writer. Please do not hesitate to contact this sports book writer with any questions, thank you. Jeannine Amos OT Pager #[phone] Inpatient Rehabilitation * Antonio Rojas MD - [...] a 6/10 at rest. She feels the ROAD MONKEY is helping her pain, but she finds [...] multimodal regimen as detailed below. Will wean ROAD MONKEY as able, and plan BIT team consult [...] #Analgesia #History of opioid dependence ??? Dilaudid ROAD MONKEY-demand only. Plan to transition to PO medications [...] clinical course. ?? Code Status: Full Code Anegly Scruggs MD PGY-4 08/04/22 I saw and [...] intact. Sat inchair today. Continues with Dilaudid RO[address] MONKEY - pain moderately managed. Abdominal binder used [...] Intake/Output Summary (Last 24 hours) at 08/03/2022 5318 Last data filed at 08/03/2022 0314 Gross [...] multimodal regimen as detailed below. Will wean ROAD MONKEY as able, and plan BIT team consult [...] #Analgesia #History of opioid dependence ??? Dilaudid RO[address] MONKEY- demand only. Can consider adding continuous rate [...] periods of time to gather supplies. Dilaudid RO[address] MON[address] in use and continued on scheduled toradol [...] has abdominal pain and is using a ROAD MONKEY but denies any leg pain now, though [...] Hdz MD 08/03/2022 3:29 AM [facility] Neurosurgery Inpatient Pager: #[phone] Personal Pager: #[phone] * Antonio Rojas MD - 08/03/2022 1:22 AM EST [facility] Oncology - Progress Note Katheryn Carranza is [...] room. Laboratory (Last 24 Hours): Recent Labs 08/01/22 [...] immediately post-operatively. Though endorsing minimal effect from ROAD MONKEY analgesia, exam findings are overall reassuring against pain that is ckk-rg-wkltmkhton to what is expected post-operatively and she is able to sleep comfortably. We discussed continued trial of demand-only ROAD MONKEY, but can consider a continuous rate if needed given history of opioid dependence. Please see systems based plan below: Neuro:??Presenting concern was progressive bilateral lower extremity numbness, find to have a left paracentral disc herniation at L5/S1 as well as fracture at T12. #Bilateral lower extremity numbness ??? Neurosurgery consulted, appreciate continued recommendations #Analgesia #History of opioid dependence ??? Dilaudid ROAD MONKEY- demand only. Can consider adding continuous rate [...] discharge criteria. Verbal report called to 1D nurse, Tosin. Plans for transport per protocol with patient [...] per protocol ??? Neurology consulted ??? Dilaudid RO[address] MON[address], Tylenol, toradol ??? Home tizanidine, flexeril continued [...] ?? Patient discussed with Dr. Rojas, attending [facility] Over[facility] Oncologist. ?? Angely Scruggs MD PGY-4 08/02/22 [...] 07/29/21, she presented to the ED at [facility]. She had a CTAP demonstrating a 15cm complex left adnexal mass. She also had a CT spine performed without acute findings. Patient was dispositioned to outpatient follow-up with [facility] [place] [facility]. Tonight, she reports worsening [...] family. Social History and Habits: lives in [place], [place]. 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 Dilaudid ROAD MONKEY, Tylenol, toradol ??? Home tizanidine, flexeril continued [...] seen and discussed with Dr. Rojas, attending Vat Overhauler Oncologist. Bubba Schroeder MD PGY-3 08/02/2022 I [...] at OSHrecently. Her pain has been severe. Vat Overhauler has not formally evaluated yet. Gynecology has [...] The patient presented at that time to [place] where she had CT of the chest, [...] Patient signed out to oncoming team awaiting MANAGER PLANT pelvic exam, further pain control, and MRI [...] abd on the left. Was seen at [facility] ED and CTs of abd and L spine were done. 15cm left ovarian mass identified. Has only a right kidney from . Ultrasound done at [facility] showed a large cyst. [place] [facility] [place] as [...] Leukocytes UA Negative Appearance UA Clear Spec [place] UA 1.004 (L) Color UA Yellow Culture [...] Validity Result Value T&S only valid at [facility] Vat Overhauler consult for right ovarian mass with intractable pain. She also has significant back pain and needs evaluation to determine if this represents metastasis from undiagnosed cancer Assessment/plan: Pelvic mass with intractable pain Admission to college recruiter Oumou Villar MD 08/02/22 0858 * Thom Harrell NRP - 08/01/2022 9:24 PM EST MD in with patient. documented in this encounter Miscellaneous Notes * Consult Note - Faiza Huang MD - 08/06/2022 11:32 AM EST ACUTE CARE SURGERY INPATIENT CONSULT NOTE Patient ID: Patient Name: Katheryn Carranza : 1960 Admit Date: 08/01/2022 9:16 PM Hospital Day: 4 History of Present Illness: Katheryn Carranza is a 61 y.o. female currently admitted to the [facility] Overha[facility] Onc service s/p diagnostic lap converted to [...] General Surgery will sign off. Please page [phone] with any questions. Faiza Huang MD General Surgery PGY-2 08/06/2022 11:32 AM * Consult Note - Tosin Bland LCErma - 08/05/2022 12:10 PM EST BIT (Behavioral Intervention Team) [facility] checked in with patient briefly. She talked about yesterday's experience and her concern about her GI system. Patient having visit with family, so BIT will return at a later time. Tosin Bland MA, [facility] Mental [facility] Services - BIT (Behavioral Intervention Team) Dept. of Psychiatry - Inpatient Psych. Services Pager: [phone] * Consult Note - Sarah Reed MD - 08/05/2022 7:43 AM EST Images from the original note were not included. DIVISION OF GASTROENTEROLOGY & HEPATOLOGY INITIAL CONSULT REQUESTING PROVIDER: Antonio Rojas MD NAME: Katheryn Carranza : 1960 HPI: Katheryn Carranza 61 y.o./ w/ PMH of Depression/Anxiety, HTN, opiate dependence adm 08/01/2022 9:16 PM to the Vat Overhauler-Onc service for surgical management of complex adnexal mass. GI is consulted for concern of GOO. Per chart review, the patient presented to OSH on 07/29 where she had a CTAP that showed 15cm complex left adnexal mass. She was sent home with college recruiter onc f/u. She then developed worsening abdominal [...] MAMMOPLASTY, EVA performed by DEMETRA SOMMERS at [facility] MAIN OR ??? PRO LAP, DIAGNOSTIC ABDOMEN Left 08/02/2022 LAPAROSCOPY, DIAGNOSTIC, ABDOMEN (WRVU 5.14) performed by Antonio Rojas MD at [facility] MAIN OR ??? PRO REMOVAL OF OVARY/TUBE(S) Left 08/02/2022 @SALPINGO-OOPHORECTOMY, UNILATERAL OR EVA (WRVU 12.16) performed by Antonio Rojas MD at [facility] MAIN OR SOCIAL HX: Social History [...] dihydroergotamine (MIGRANAL) 0.5 mg/pump act. (4 mg/mL) Minco, Non-Aerosol One spray per nostril, while holding [...] by mouth nightly. ??? Miscellaneous Medical Supply [facility] Bilateral wrist splints for CTS 2 each [...] personally reviewed in eDH CBC: Recent Labs 08/04/22232308/01/225 WBC 10.1* 12.6* HGB 13.6 13.7 PLATELET 285 286 MCV 92.7 92.5 RDWCV 12.3 12.6 COAG: No results for input(s): PTT, INR, PT in the last 168 hours. CHEM: Recent Labs 08/04/22232308/01/222214 CREATININE 0.70 0.78 BUN 10 13 NA [...] who have questions please contact the health lpn care manager that requested your imaging first. Abdomen & Pelvis wo Contrast Final Result [...] who have questions please contact the health lpn care manager that requested your imaging first. Lumbar Spine wwo Contrast Final Result 1. [...] who have questions please contact the health lpn care manager that requested your imaging first. Thoracic Spine wwo Contrast Final Result 1. [...] who have questions please contact the health lpn care manager that requested your imaging first. Request For 2nd Read CT Chest Abdomen [...] who have questions please contact the health lpn care manager that requested your imaging first. Request For [...] who have questions please contact the health lpn care manager that requested your imaging first. Request for 2nd read Ultrasound Study Final Result Large cystic lesion with mural nodularity in the RIGHT adnexa highly suspicious for malignancy Thank you for letting us participate in the care of this patient. If you are a health care provider and have any questions regarding this report, please contact the number below. For patients who have questions please contact the health lpn care manager that requested your imaging first. Film Library- Storage Only Ultrasound Study Final Result Film Library- Storage Only CT Spine Final Result Film Library- Storage Only CT Chest Abdomen Pelvis Final Result ENDOSCOPY: Reports and images personally reviewed in H OSH RECORDS: Obtained and personally reviewed ASSESSMENT & PLAN: Katheryn Carranza 61 y.o./ w/ PMH of Depression/Anxiety, HTN, opiate dependence adm to the [facility]at Overhauler-Onc service for surgical management of complex adnexal [...] them as documented. Donnie Obrien MD, NARAYAN Director Physicalaviation consultant Section of Gastroenterology and Hepatology * Consult Note - Jf Hawk MD - 08/05/2022 5:38 AM EST ACUTE CARE SURGERY INPATIENT CONSULT NOTE Patient ID: Patient Name: Katheryn Carranza : 1960 Admit Date: 08/01/2022 9:16 PM Hospital Day: 3 History of Present Illness: Katheryn Carranza is a 61 y.o. female currently admitted to the [facility] Over[facility] Onc service s/p diagnostic lap converted to [...] MAMMOPLASTY, EVA performed by DEMETRA SOMMERS at [facility] MAIN OR ??? PRO LAP, DIAGNOSTIC ABDOMEN Left 08/02/2022 LAPAROSCOPY, DIAGNOSTIC, ABDOMEN (WRVU 5.14) performed by Antonio Rojas MD at [facility] MAIN OR ??? PRO REMOVAL OF OVARY/TUBE(S) Left 08/02/2022 @SALPINGO-OOPHORECTOMY, UNILATERAL OR EVA (WRVU 12.16) performed by Antonio Rojas MD at [facility] MAIN OR Medications: ??? acetaminophen 1,000 [...] dihydroergotamine (MIGRANAL) 0.5 mg/pump act. (4 mg/mL) Minco, Non-Aerosol One spray per nostril, while holding [...] 39.1 39.3 PLATELET 285 286 Recent Labs 08/04/22232308/01/22 2215 NA 137 136 K 3.6 4.1 [...] who have questions please contact the health lpn care manager that requested your imaging first. Request For 2nd Read CT Spine (Exam [...] who have questions please contact the health lpn care manager that requested your imaging first. Request for 2nd read Ultrasound Study (Exam [...] who have questions please contact the health lpn care manager that requested your imaging first. Lumbar Spine wwo Contrast (Exam End: 08/02/2022 [...] who have questions please contact the health lpn care manager that requested your imaging first. Thoracic Spine [...] who have questions please contact the health lpn care manager that requested your imaging first. Abdomen & Pelvis wo Contrast (Exam End: [...] who have questions please contact the health lpn care manager that requested your imaging first. Abdomen 1 view (Generic) (Exam End: 08/05/2022 [...] who have questions please contact the health lpn care manager that requested your imaging first. Assessment: Katheryn Carranza is a 61 y.o. [...] with attending surgeon Dr. Hawk. Please page [phone] with questions. Arnav Singh Jr, MD General [...] Hawk MD * Consult Note - Tosin Bland [facility] - 08/03/2022 2:45 PM EST BIT Evaluation [...] with a substance use disorder. She said thatshe uses pills recreationally such as vicodan and [...] regarding OUD and MAT 2. Will involve BIT TAPERING MACHINE OPERATOR or if patient wants to talk more specifically about MAT and if team wants to consult about MAT initiation Outstanding Discharge Needs: Other: TBD Time spent with the patient (min):25 minutes Time spent on case coordination (min): 15 minutes Tosin Bland MA, [facility] Mental [facility] Services - BIT (Behavioral Intervention Team) Dept. of Psychiatry - Inpatient Psych. Services Pager: [phone] * Initial Assessments - Ava Rogers RN [...] Environment: Others in the home: spouse (4 Welsh shepards). Current Living Arrangements: home/apartment/condo. Accessibility Concerns:2 level log home (4 REGINO without rails) or 6 REGINO with rails); bedroom on 2nd level [address] Resource / Environmental Concerns: Resource/Environmental Concerns: none Current DME: none (Friend has given her a FWW to use if needed) Home Address confirmed as: [address] [place] [phone] Social & Family Supports: All names listed below confirmed with patient as current and correct Extended Emergency Contact Information Primary Emergency Contact: Prieto Carranza Address: [address] [place] [phone] [facility] [place] Relation: Spouse Secondary Emergency Contact: [place] [address] [facility] [place] Relation: Child Current Care [...] Secondary Insurance: N/A ; Prescription Coverage: No ([facility] and Kiran) Preferred Pharmacy: [id number] [address] [address] Status: Patient is a : No Primary Care Provider confirmed: Lena Womack APRN [phone] Patient/Caregiver Goals of Treatment: Pain control Potential Needs for Transition of Care: none Agency Referrals: n/a Transportation: no concerns Transportation Anticipated: family or friend will provide Concerns to be Addressed: no discharge needs identified Assessment: Patient is admitted to MANAGER PLANT service for POD#1 s/p diagnostic laparoscopy, converted [...] Oral BID Bubba Schroeder MD2 tablet at 08/02/22 2358 ??? nicotine (Nicoderm CQ) 14 mg/24 hr [...] BID Bubba Schroeder MD 100 mg at 08/02/22 2358 ??? polyethylene glycoL (Miralax) packet 17 g [...] mg/mL) in sodium chloride 0.9% [address] [facility] infusion syringe Intravenous [address] [facility] Only Bubba Schroeder MD 50 mg at 08/02/222124 ??? diphenhydrAMINE (Benadryl) (50 mg/mL) injection 25 mg 25 mg Intravenous Q30 Min PRN Bubba Schroeder MD ??? [facility] [facility] wood Intravenous Continuous PRN Bubba Schroeder MD ??? HYDROmorphone (mg) RO[facility] shift total and Settings verification Intravenous 2 Times Daily- [address] [facility] Shift Total Bubba Schroeder MD ??? enoxaparin (Lovenox) (40 mg/0.4 mL) subcutaneous injection 40 mg 40 mg Subcutaneous Nightly Bubba Schroeder MD Home Medications: No current facility-administered medications on file prior to encounter. Current Outpatient Medications on File Prior to Encounter Medication Sig Dispense Refill ??? dihydroergotamine (MIGRANAL) 0.5 mg/pump act. (4 mg/mL) Minco, Non-Aerosol One spray per nostril, while holding [...] by mouth nightly. ??? Miscellaneous Medical Supply [facility] Bilateral wrist splints for CTS 2 each [...] MAMMOPLASTY, EVA performed by DEMETRA SOMMERS at [facility] MAIN OR Allergies: Allergies Allergen Reactions [...] Flexor digitorum profundus Digit II-V flexion / day habilitation supervisor 5 5 L2-3 Iliopsoas Hip flexion [...] who have questions please contact the health lpn care manager that requested your imaging first. Request For 2nd Read CT Spine (Exam [...] who have questions please contact the health lpn care manager that requested your imaging first. Request for 2nd read Ultrasound Study (Exam [...] who have questions please contact the health lpn care manager that requested your imaging first. Lumbar Spine wwo Contrast (Exam End: 08/02/2022 [...] who have questions please contact the health lpn care manager that requested your imaging first. Electronically signed by: Devin Mario [facility] ([phone]), at 08/02/2022 5:08 PM MRI Thoracic Spine [...] who have questions please contact the health lpn care manager that requested your imaging first. Assessment: Katheryn Carranza is a 61 y.o. [...] Castellano MD Neurology, PGY-3 Consult Neurology Service #[id number] 08/03/2022 Associated attestation - Bhargavi Vance MD [...] Rojas MD - 08/02/2022 6:34 PM EST [facility] [place] Note Patient Name: Katheryn Carranza : [id number] MR#: [id number] Case Date: 08/02/2022 Surgeon: Surgeon(s) and Role: [...] pelvis, with the findings noted above. A Bookwalter re tractor was assembled and used to [...] Booker MD - 08/02/2022 12:42 PM EST [facility] Neurosurgery Consultation Note Date & Time of Consult: 08/02/2022 1207 Referring Service: [facility]at Overhauler Onc Referring Attending: Antonio Rojas MD Neurosurgery Attending: Dr. Duenas Place of Consult: ED22/MRI [place] ID: Name: Katheryn Carranza, 61 y.o. female Admission Date: 08/01/2022 Reason for consult/CC: Left paracentral L5/S1 disc herniation HPI: This is a 61 y.o. RIGHT-handed female with a PMH of tobacco abuse, HTN, chronic neck pain who presented [place] [facility] with c/o progressive back [...] of days without benefit. She presented to [facility] ED on 07/29/2022 due to progression of this pain wrapping around to her abdomen mony CT of her abdomen and pelvis as well as a CT of her spine was obtained. As the pain continued to progress she presented to [facility] [place] yesterday 08/01 and [...] MAMMOPLASTY, EVA performed by DEMETRA SOMMERS at [facility] MAIN OR Medications: No current facility-administered medications on file prior to encounter. Current Outpatient Medications on File Prior to Encounter Medication Sig Dispense Refill ??? dihydroergotamine (MIGRANAL) 0.5 mg/pump act. (4 mg/mL) Minco, Non-Aerosol One spray per nostril, while holding [...] by mouth nightly. ??? Miscellaneous Medical Supply [facility] Bilateral wrist splints for CTS 2 each [...] ??? lidocaine 1 patch Transdermal Daily ??? RO[facility] shift total and Settings verification Intravenous 2 Times Daily- [facility] Shift Total ??? amitriptyline 100 mg Oral [...] No dysmetria in BUE Labs: Recent Labs 08/01/222214 WBC 12.6* HGB 13.7 PLATELET 286 Recent Labs 08/01/222214 NA 136 [...] who have questions please contact the health lpn care manager that requested your imaging first. Request For 2nd Read CT Spine (Exam [...] who have questions please contact the health lpn care manager that requested your imaging first. Request for 2nd read Ultrasound Study (Exam [...] who have questions please contact the health lpn care manager that requested your imaging first. Assessment: This is a 61 y.o. RIGHT-handed female not on antiplatelet/anticoagulants with a PMH of tobacco abuse, HTN, chronic neck pain who presented [place] [facility] with c/o progressive back [...] dihydroergotamine (MIGRANAL) 0.5 mg/pump act. (4 mg/mL) Minco, Non-Aerosol One spray per nostril, while holding [...] by mouth nightly. ??? Miscellaneous Medical Supply [facility] Bilateral wrist splints for CTS 2 each [...] dihydroergotamine (MIGRANAL) 0.5 mg/pump act. (4 mg/mL) Minco, Non-Aerosol One spray per nostril, while holding [...] by mouth nightly. ??? Miscellaneous Medical Supply [facility] Bilateral wrist splints for CTS 2 each [...] MAMMOPLASTY, EVA performed by DEMETRA SOMMERS at [facility] MAIN OR Allergies: Allergies Allergen Reactions [...] Flexor digitorum profundus Digit II-V flexion / day habilitation supervisor 5 5 L2-3 Iliopsoas Hip flexion [...] 0.1 Last Ca, Mg, Phos Recent Labs 08/01/22 221 CALCIUM 9.2 Diagnostic Tests and Imaging: Results [...] who have questions please contact the health lpn care manager that requested your imaging first. Assessment: Katheryn Carranza is a 61 y.o. [...] Therapy, Volume 87, Issue 6, 2006, Pages 710-162, [email or web address] Patient seen with Dr. Pinky Castellano MD [...] pt fell yesterday. [facility] Tuesdayand referred up to for further care. Pt has left ovarian mass found on u/s. Pt states her legs are numb and tingly for last 2 days. Pt restless in wc, appears in discomfort. HPI (Adult) Stated Reason for Visit: I have sciatica and back pain, so I went to [facility] tuesday and they said I have a mass on my ovary. (left) History Obtained From: patient Precipitating Event(s): unknown Onset of Symptoms: worsening Duration (Weeks): 3 Associated Signs/Symptoms: abdominal pain documented in this encounter Plan of Treatment Upcoming Encounters Date Type Department Care Team (Late st Contact Info) Description 03/07/2024 10:00 AM EDT Appointment XRay at [address] [place] [address] Tien Zurita MD [facility] [place] [address] 03/07/2024 10:40 AM EDT Office Visit Neurosurgery at [facility] [place] [phone] Angel Hankins PA [facility] [place] [address] documented as of this encounter Procedures Procedure Name Priority Date/Time Associated Diagnosis Comments HC MAGNESIUM, SERUM Routine 08/07/2022 5 :16 AM EST BASIC METABOLIC PANEL Routine 08/07/2022 5:16 AM EST LAVENDER TUBE HOLD Routine 08/06/2022 5: 18 AM EST HC MAGNESIUM, SERUM Routine 08/06/2022 5 :18 AM EST BASIC METABOLIC PANEL Routine 08/06/2022 5:18 AM EST Upper GI Endoscopy, Diagnostic (39302) 08/05/2022 2:19 PM EST GOO UPPER GI [...] TO PATHOLOGY Routine 08/02/2022 7:39 PM EST NON-MANAGER PLANT FINAL REPORT Routine 08/02/2022 7:07 PM EST CYTOPATHOLOGY NON-GYNECOLOGICAL Routine 08/02/2022 7:07 PM EST MRI LUMBAR SPINE WITH/WO CONTRAST STAT 08/02/2022 [...] 08/01/2022 10:15 PM EST TYPE AND SCREEN ([facility]/CGP/COMPA) STAT 08/01/2022 10:15 PM EST CANCER ANTIGEN [...] EST) Magnesium 0.89 0.69 - 1.07 mmol/L [facility] Blood 08/07/2022 5:16 AM EST 08/07/2022 5:27 AM EST Narrative Resulting Agency Comment Spec In Lab Antonio Rojas MD CHEMISTRY ORDERABLES [facility] [place] [address] * (ABNORMAL) Basic Metabolic Panel (non-fasting) (08/07/2022 5:16 AM EST) Glucose 122 65 - 199 mg/dL [facility] Comment:Diabetes: >=200 mg/d L plus symptoms Blood Urea Nitrogen 9 8 - 18 mg/dL [facility] Creatinine 0.68(L) 0.70 - 1.20 mg/dL [facility] Sodium 137 135 - 145 mmol/L [facility] Potassium 3.8 3.5 - 5.0 mmol/L [facility] Comment: Please note: ??Patients with WBC >100,000 may have falsely elevated Potassium levels. ??For accurate Potassium quantification in these patients send serum separator tube (gold top) for subsequent determinations. ??Contact the Clinical Chemistry Laboratory if there are any questions. Chloride 101 98 - 107 mmol/L [facility] Carbon Dioxide 24 22 - 31 mmol/L [facility] Anion Gap 12 5 - 15 mmol/L [facility] Calcium 8.6 8.5 - 10.5 mg/dL [facility] Est Glomerular Filtration Rate 99 >=60 mL/min/1. 73 m?? [facility] Comment: This patient's estimated GFR [...] Rojas MD CHEMISTRY ORDERABLES Performing Organization Address [facility] de Phone Number [facility] [place] [address] * Lavender Tube HOLD (08/06/2022 5:18 AM EST) Lavender Hold Sample in lab. [facility] Blood Venous Draw / Unknown 08/06/2022 5:18 AM EST 08/06/2022 5:33 AM EST Oma MARSHALL HEMATOLOGY ORDERABLE S Performing Organization Address [facility] de Phone Number [facility] [place] [address] * Magnesium (08/06/2022 5:18 AM EST) Magnesium 0.69 0.69 - 1.07 mmol/L [facility] Blood 08/06/2022 5:18 AM EST 08/06/2022 5:33 AM EST Narrative Resulting Agency Comment Spec In Lab Antonio Rojas MD CHEMISTRY ORDERABLES Performing Organization Address [facility] de Phone Number [facility] [place] [address] * (ABNORMAL) Basic Metabolic Panel (non-fasting) (08/06/2022 5:18 AM EST) Glucose 106 65 - 199 mg/dL [facility] Comment:Diabetes: >=200 mg/d L plus symptoms Blood Urea Nitrogen 10 8 - 18 mg/dL [facility] Creatinine 0.65(L) 0.70 - 1.20 mg/dL [facility] Sodium 139 135 - 145 mmol/L [facility] Potassium 3.3(L) 3.5 - 5.0 mmol/L [facility] Comment: Please note: ??Patients with WBC >100,000 may have falsely elevated Potassium levels. ??For accurate Potassium quantification in these patients send serum separator tube (gold top) for subsequent determinations. ??Contact the Clinical Chemistry Laboratory if there are any questions. Chloride 99 98 - 107 mmol/L [facility] Carbon Dioxide 26 22 - 31 mmol/L [facility] Anion Gap 14 5 - 15 mmol/L [facility] Calcium 8.9 8.5 - 10.5 mg/dL [facility] Est Glomerular Filtration Rate 100 >=60 mL/min/1. 73 m?? [facility] Comment: This patient's estimated GFR [...] Rojas MD CHEMISTRY ORDERABLES Performing Organization Address City/State/[facility] Co de Phone Number [facility] [place] [address] * UPPER GI ENDOSCOPY (08/05/2022 2:01 PM EST) UPPER GI ENDOSCOPY [facility] Endoscopy Procedure Date: 08/05/2022 2:01 PM ? Patient Name: Katheryn Carranza ? Date of : 1960 ? Age: 61 ? Order #: [id number] ? Instrument Name: [id number] ? Procedure: ? Upper GI endoscopy Indications: ? Vomiting Providers: ? Sarah Jones Glenn G. ? OLIVIA Caldwell, Louie Hernandez MD: ? Medicines: ? Monitored Anesthesia Care Complications: [...] PM EST Unknown GENERAL SURGICAL ORD ERABLES [employer]OVATION * Urine Hold (08/05/2022 10:47 AM EST) Hold, Urine Sample in lab. [facility] Urine Urine / Unknown 08/05/2022 1 0:47 AM EST 08/05/2022 10:58 AM EST Angely N Tofte MD URINE ORDERABLES Performing Organization Address [facility] Co de Phone Number [facility] [place] [address] * Urinalysis with reflex Culture (08/05/2022 10:47 AM EST) Glucose, Urine Dipstick Negative Negative mg/dL [facility] Protein, Urine Dipstick Negative Negative mg/dL [facility] Bilirubin, Urine Dipstick Negative Negative mg/dL [facility] Comment: Clinical correlation required for positive Urine Bilirubin results as false positive may occur with some drugs and drug related products. If a false positive is suspected a serum total bilirubin should be considered if clinically indicated. Urobilinogen, Urine Dipstick Normal Normal mg/dL [facility] pH, Urn (dipstick) 7.5 5.0 - 8.0 [facility] Blood, Urine Dipstick Negative Negative mg/dL [facility] Ketone, Urine Dipstick Negative Negative mg/dL [facility] Nitrite, Urine Dipstick Negative Negative [facility] Leukocytes, Urine Dipstick Negative Negative mcL [facility] LABORATORY Appearance, Urine Dipstick Clear Clear [facility] Specific [place] Urine Automated 1.011 1.005 - 1.030 [facility] Color, Urine Dipstick Yellow Yellow [facility] Reflex to Culture No [facility] Clean Catch Urine 08/05/2022 10:47 AM EST 08/05/2022 10:58 AM EST Narrative Resulting Agency Comment Spec In Lab Antonio Rojas MD URINE ORDERABLES Performing Organization Address [facility]/ZIP Co de Phone Number [facility] [place] [place] [address] * XR Abdomen 1 view (Generic) (08/05/2022 [...] who have questions please contact the health lpn care manager that requested your imaging first. ? Narrative 08/05/2022 3:21 AM EST EXAMINATION: XR [...] patients who have questions please contactthe health lpn care manager that requested your imaging first. Antonio Rojas MD IMG DX ORDERABLES * [...] who have questions please contact the health lpn care manager that requested your imaging first. ? Narrative 08/05/2022 12:23 AM EST EXAMINATION: CT [...] Osseous Structures: Redemonstrated mild compression deformity of [id number] endplate. IMPRESSION Findings suggesting pyelonephritis of the lone RIGHT kidney. Moderate to severe gastric distention. Mild atelectasis at the included lung bases. Moderate pancolonic stool burden Thank you for letting us participate in the care of this patient. If youare a health care provider and have any questions regarding this report,please contact the number below. For patients who have questions please contactthe health lpn care manager that requested your imaging first. Antonio Rojas MD IMG CT ORDERABLES * (ABNORMAL) Hemoglobin A1c (08/04/2022 11:24 PM EST) Hemoglobin A1c 6.2(H) 4.3 - 5.6 % [facility] Comment: Reference Range: 4.3 - 5.6% [...] Mellitus, Diabetes Care 2013; 36: Suppl. 1, W72-45 Estimated Average Glucose 130 mg/dL [facility] Comment: eAG equivalents for HbA1c percentages: [...] into estimated average glucose values. ??Diabetes Care 2008:31(8):8832-4191. Blood Venous Draw / Unknown 08/04/2022 11:24 PM EST 08/05/2022 9:39 AM EST Narrative Resulting Agency Comment Spec In Lab Oma MARSHALL CHEMISTRY ORDERABLES Performing Organization Address City/[facility] Co de Phone Number [facility] [place] [place] [address] * (ABNORMAL) Amylase (08/04/2022 11:24 PM EST) Amylase 27(L) 28 - 100 unit/L [facility] Blood Venous Draw / Unknown 08/04/2022 11:24 PM EST 08/04/2022 11:30 PM EST Narrative Resulting Agency Comment Spec In Lab Angely Scruggs MD CHEMISTRY ORDERABLES Performing Organization Address City/[facility] Co de Phone Number [facility] [place] [address] * Lipase (08/04/2022 11:24 PM EST) Lipase 12 0 - 60 unit/L [facility] Blood Venous Draw / Unknown 08/04/2022 11:24 PM EST 08/04/2022 11:30 PM EST Narrative Resulting Agency Comment Spec In Lab Angely Scruggs MD CHEMISTRY ORDERABLES Performing Organization Address City/[facility] Co de Phone Number [facility] [place] [address] * (ABNORMAL) Differential, Automated (08/04/2022 11:24 PM EST) Neutrophil % 68.0 % [facility] Neutrophil Absolute 6.86(H) 1.70 - 6.10 x10(3)/mc L [facility] Lymph % 24.6 % [facility] Lymphocytes Abs 2.5 0.9 - 3.2 x10(3)/[facility] LABORATORY Monocyte % 6.1 % [facility] Monocyte Abs 0.6 0.3 - 0.9 x10(3)/[facility] LABORATORY Eos % 0.3 % [facility] Eosinophils Abs 0.0 0.0 - 0.4 x10(3)/[facility] LABORATORY Basophil % 0.1 % [facility] Baso Absolute 0.0 0.0 - 0.1 x10(3)/[facility] LABORATORY Immature Gran % 0.90 % [facility] Comment: Immature granulocytes(IG's)percentage and absolute count will include metamyelocytes, myelocytes, and promyelocytes. Blood smears from CBCs yielding IG's will be scanned manually for concordance. If this scan disagrees with the automated IG or if promyelocytes are noted, a manual differential will be performed. Immature Gran Absolute 0.09(H) 0.00 - 0.04 x10(3)/[facility] LABORATORY Blood 08/04/2022 11:2 4 PM EST 08/04/2022 11:29 PM EST Narrative Resulting Agency Comment Spec In Lab Bubba Schroeder MD HEMATOLOGY ORDERABLE S [facility] [place] [place] [address] * (ABNORMAL) Hemogram (08/04/2022 11:24 PM EST) White Blood Cell 10.1(H) 4.0 - 9.5 x10(3)/[facility] LABORATORY Red Blood Cell 4.22 4.00 - 5.21 x10(6)/[facility]ORY Hemoglobin 13.6 11.7 - 15.5 g/dL [facility] Hematocrit 39.1 35.7 - 45.8 % [facility] Mean Cell Volume 92.7 82.6 - 94.4 fL [facility] Mean Cell Hemoglobin 32.2(H) 27.1 - 32.0 pg [facility] Mean Cell Hemoglobin Concentration 34.8 31.7 - 35.0 g/dL [facility] Platelet 285 145 - 357 x10(3)/mc L [facility] RDW Standard Deviation 41.6 37.0 - 46.0 fL [facility] RDW coefficient of variation 12.3 11.5 - 14.1 % [facility] Mean Platelet Volume 8.7 7.6 - 12.9 fL [facility] NRBC% auto 0.0 % [facility] NRBC Absolute 0.000 0.000 - 0.000 x10(3)/mc L [facility] Blood 08/04/2022 11:2 4 PM EST 08/04/2022 11:29 PM EST Narrative Resulting Agency Comment Spec In Lab Bubba Schroeder MD HEMATOLOGY ORDERABLE S Performing Organization Address City/State/[facility] Co de Phone Number [facility] [place] [address] * CMP w/fasting Glucose (08/04/2022 11:24 PM EST) Glucose Fasting 97 65 - 99 mg/dL [facility] Comment: ?Fasting* Glucose Interpretive Criteria Normal [...] of Diabetes Mellitus, Position Statement from the [employer]. ??Diabetes Care, Volume 33, Supplement 1, Jun 2009 Blood Urea Nitrogen 10 8 - 18 mg/dL [facility] Creatinine 0.70 0.70 - 1.20 mg/dL [facility] Sodium 137 135 - 145 mmol/L [facility] Potassium 3.6 3.5 - 5.0 mmol/L [facility] Comment: Please note: ??Patients with WBC >100,000 may have falsely elevated Potassium levels. ??For accurate Potassium quantification in these patients send serum separator tube (gold top) for subsequent determinations. ??Contact the Clinical Chemistry Laboratory if there are any questions. Chloride 101 98 - 107 mmol/L [facility] Carbon Dioxide 24 22 - 31 mmol/L [facility] Anion Gap 12 5 - 15 mmol/L [facility] Calcium 9.2 8.5 - 10.5 mg/dL [facility] Protein, Total 6.4 6.1 - 8.0 g/dL [facility] Albumin 3.7 3.2 - 5.2 g/dL [facility] Aspartate Aminotransferase 13 0 - 30 unit/L [facility] Alanine Aminotransferase 22 0 - 30 unit/L [facility] Alkaline Phosphatase 73 35 - 105 unit/L [facility] Bilirubin, Total 0.3 0.2 - 1.3 mg/dL [facility] Est Glomerular Filtration Rate 98 >=60 mL/min/1. 73 m?? [facility] Comment: This patient's estimated GFR [...] In Lab Antonio Rojas MD CHEMISTRY ORDERABLES [facility] [place] [address] * Surgical Pathology Report (08/02/2022 7:39 PM EST) Final Diagnosis [id number] ? Location: L1WD; H119; A The signing pathologist has (i) examined the relevant preparation(s) for the specimen(s) and (ii) rendered or confirmed the diagnosis(es). . 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 Electronically signed by: ?David AKBAR, Rosaura Echeverria Verified: ??08/11/2022 9:33 ?? Pathologist Performed at: ??[place] [place], [place] [address] Cook Apprentice: Ernestina Valenzuela MD, FCAP, ??CLIA Certificate: [id number] DISCUSSION Definitive fallopian tube tissue was not [...] Fallopian Tube: Not grossly identified. Sections/Processi ng: Senior Revenue Accountant sections in 22 cassettes as follows: ?A1-A2: Cyst wall with excrescences ?A3-A4: Senior Revenue Accountant sections of fine papillary excrescences ?A5-A6: Senior Revenue Accountant yellow, flat excrescences ?A7-A10: Senior Revenue Accountant sections of the solid and cystic nodule, ?A11-A15: Senior Revenue Accountant sections of the whorled surface nodule and ? adjacent cyst ?A16-A19: Additional cyst wall sections ?A20: Candidate left fallopian tube adhesed to nodule ?A21-A22: Senior Revenue Accountant soft tissue adhesed to nodule ??j 08/11/2022 9:[address] [facility] OVARIAN PART / Unknown 08/02/2022 7:39 PM EST 08/02/2022 7:39 PM EST Antonio Rojas MD PATHOLOGY/CYTOLOGY O LISA Performing Organization Address City/[facility] Co de Phone Number [facility] [address] [place] [address] * Specimen to Pathology (08/02/2022 7:39 PM EST) AP Specimen 08/02/2022 7:39 PM EST 08/02/2022 7:39 PM EST Narrative [facility] - 08/02/2022 7:39 PM EST Specimen requisition ordered. ??Separate Pathology report to follow Antonio Rojas MD PATHOLOGY/CYTOLOGY O LISA [facility] [place] [place] [address] * Non-Vat Overhauler Final Report (08/02/2022 7:07 PM EST) Diagnosis Discussion [id number] ? Location: L1WD; H119; A The signing pathologist has (i) examined the relevant preparation(s) for the specimen(s) and (ii) rendered or confirmed the diagnosis(es). . ? Non-Vat Overhauler Final DIAGNOSIS Negative for Malignancy Electronically signed by: ?Miladys AKBAR, Mark Bailey Verified: ??08/11/2022 15:41 ??Pathologist Performed at: ??-[facility] [place], [place] [address] Cook Apprentice: Ernestina Valenzuela MD, FCAP, ??CLIA Certificate: [id number] DISCUSSION Pelvic wash: Mesothelial cells are present. [...] Cell Block 1. 08/11/2022 3:[address] [facility] Pelvic Washing 08/02/2022 7: 07 PM EST 08/02/2022 7:07 PM EST Antonio Rojas MD PATHOLOGY/CYTOLOGY O RDERABLES [facility] [place] [id number] [facility] [place] [address] * Cytopathology Non-Gynecological (08/02/2022 7:07 PM EST) AP Specimen 08/02/2022 7:07 PM EST 08/02/2022 7:07 PM EST Narrative [facility] - 08/02/2022 7:07 PM EST Specimen requisition ordered. ??Separate Pathology report to follow Antonio Rojas MD PATHOLOGY/[place] [address] * MRI Thoracic Spine wwo Contrast (08/02/2022 [...] who have questions please contact the health lpn care manager that requested your imaging first. ? Narrative 08/02/2022 5:08 PM EST EXAMINATION: MRI [...] in the lower abdomen. Procedure Note Devin Mario DO - 08/02/2022 EXAMINATION: MRI LUMBAR SPINE [...] in context of the clinical situation (Reference- Emilyk Et Al, [id number]). Findings: (Prevalence in patients without low back [...] patients who have questions please contactthe health lpn care manager that requested your imaging first. Antonio Rojas MD IMDelano MRI ORDERABLES * MRI Lumbar Spine wwo [...] who have questions please contact the health lpn care manager that requested your imaging first. ? Narrative 08/02/2022 5:08 PM EST EXAMINATION: MRI [...] in context of the clinical situation (Reference- Emilyk Et Al, [id number]). Findings: (Prevalence in patients without low back [...] patients who have questions please contactthe health lpn care manager that requested your imaging first. Oumou Villar MD [facility] [place] MRI ORDERABLES * Request For 2nd Read [...] who have questions please contact the health lpn care manager that requested your imaging first. ? Narrative 08/02/2022 8:41 AM EST EXAMINATION: * ??REQUEST FOR 2ND READ CT CHEST ABDOMEN PELVIS * ??CT OF THE CHEST, ABDOMEN, AND PELVIS WITH INTRAVENOUS CONTRAST. CLINICAL HISTORY: 61-year-old female with left adnexal mass. ??History of hysterectomy and right oophorectomy. ??Solitary right kidney. ??Clinical concern for aneurysm. ??Request for second interpretation of outside imaging study. ?? * ??Sending Institution [facility] * ??Date of exam 20220729 * ??I believe a reinterpretation of this exam may alter care of Patient. Yes TECHNIQUE: CT of the chest, abdomen, and pelvis was performed with intravenous contrast at on July 29, 2022. Helical CT images [...] similar prior examination provided for comparison. FINDINGS: Spinning Lathe Operator Hydraulic Images: Noncontributory. CT OF THE CHEST: Lungs [...] No suspicious lesions. Procedure Note Angel Baker, DO - 08/02/2022 EXAMINATION: * REQUEST FOR 2ND READ CT CHEST ABDOMEN PELVIS * CT OF THE CHEST, ABDOMEN, AND PELVIS WITH INTRAVENOUS CONTRAST. CLINICAL HISTORY: 61-year-old female with left adnexal mass. History of hysterectomy and right oophorectomy. Solitary right kidney. Clinicalconcern for aneurysm. Request for second interpretation of outside imaging study. * Sending Institution [facility] * Date of exam 20220729 * I believe a reinterpretation of this exam may alter care of Patient.Yes TECHNIQUE: CT of the chest, abdomen, and pelvis was performed withintravenous contrast at on July 29, 2022. Helical CT images of the chest, abdomen, and pelvis were obtainedfollowing administration of intravenous contrast. Per report, the patient [id number] mL Omnipaque 350 intravenous contrast. Oral contrast was not administered. Multiplanar reformats were performed in the sagittal and coronal planes. Maximum Intensity Projection (MIP) images were also reformatted. COMPARISON: There is no similar prior examination provided [facility]. FINDINGS: Spinning Lathe Operator Hydraulic Images: Noncontributory. CT OF THE CHEST: Lungs [...] patients who have questions please contactthe health lpn care manager that requested your imaging first. Oumou Villar MD IMG OUTSIDE INTERPRE TATION [...] who have questions please contact the health lpn care manager that requested your imaging first. ? Narrative 08/02/2022 8:25 AM EST EXAMINATION: REQUEST FOR 2ND READ CT SPINE CLINICAL HISTORY: back/flank pain r/o spinal stenosis; Sending Institution [facility]; Date of exam 20220729; I believe a [...] who have questions please contact the health lpn care manager that requested your imaging first. ? --------ORIGINAL REPORT -------- EXAMINATION: REQUEST FOR 2ND READ ULTRASOUND STUDY CLINICAL HISTORY: L adnexal mass; Sending Institution [facility]; Date of exam 20220730; I believe a [...] who have questions please contact the health lpn care manager that requested your imaging first. ? Addendum by Sandra Henderson MD on 08/25/2022 12:39 PM EDT --------ADDENDUM #1-------- TECHNIQUE: US Pelvis, Images were obtained and VRE --------ORIGINAL REPORT -------- EXAMINATION: REQUEST FOR 2ND READ ULTRASOUND STUDY CLINICAL HISTORY: L adnexal mass; Sending Institution [facility]; Date of exam 20220730; I believe a [...] who have questions please contact the health lpn care manager that requested your imaging first. ? Impressions 08/02/2022 10:18 AM EST Large cystic lesion with mural nodularity in the RIGHT adnexa highly suspicious for malignancy Thank you for letting us participate in the care of this patient. ??If you are a health care provider and have any questions regarding this report, please contact the number below. ??For patients who have questions please contact the health lpn care manager that requested your imaging first. ? Narrative 08/02/2022 10:18 AM EST EXAMINATION: REQUEST FOR 2ND READ ULTRASOUND STUDY CLINICAL HISTORY: L adnexal mass; Sending Institution [facility]; Date of exam 20220730; I believe a [...] CLINICAL HISTORY: L adnexal mass; Sending Institution [facility]; Dateof exam 20220730; I believe a reinterpretation of this exam may alter care ofPatient. Yes; ; L adnexal mass TECHNIQUE: Images were obtained and VRE COMPARISON: CT from 07/29/2022 FINDINGS: By history the patient is status post cystectomy and LEFT nephrectomy.The images presented show a large cystic lesion in the RIGHT adnexa withperipheral nodularity. The measurements obtained were 13.7 x 11.5 by .8 cm. The images do not show definite [...] patients who have questions please contactthe health lpn care manager that requested your imaging first. Oumou Villar MD IMG OUTSIDE [facility] TATION ORDERABLES * BLOOD GAS 2 VENOUS (08/01/2022 10:23 PM EST) pH, Venous 7.36 7.32 - 7.42 [facility] PCO2, Venous 47 41 - 51 mmHg [facility] PO2, Venous 31 25 - 40 mmHg [facility] Bicarbonate, Venous 25.9 mmol/L [facility] Base Excess, Venous 0.4 mmol/L [facility] Hgb Blood Gas 14.4 11.7 - 15.5 g/dL [facility] Oxyhemoglobin, Venous 58.3 % [facility] Carboxyhemoglob in, Venous 8.9 % [facility] Comment: Nonsmokers: 0.5-1.5% COHB Smokers: Variable, but usually less than 10% Toxic: 20-30% COHB Lethal: Greater than 60% COHB Methemoglobin, Venous 0.1 <=1.5 % [facility] Na Whole Blood 137 135 - 145 mmol/L [facility] K Whole Blood 4.0 3.5 - 5.0 mmol/L [facility] Comment: Please note: Patients with WBC >100,000 may have falsely elevated Potassium levels. Contact the Clinical Chemistry Laboratory if there are any questions. ICa Whole Blood 1.21 1.15 - 1.33 mmol/L [facility] Comment: Note: ??Total bilirubin higher than 20 mg/dL may lead to falsely low ionized calcium. CL Whole Blood 100 98 - 107 mmol/L [facility] Gluc Whole Bld 95 65 - 199 mg/dL [facility] Comment:Diabetes: >=200 mg/d L plus symptoms Lactate WB 1.6 0.5 - 2.2 mmol/L [facility] Blood Gas Source Venous [facility] Blood 08/01/2022 10:2 3 PM EST 08/01/2022 10:23 PM EST Oumou Villar MD POINT OF CARE TEST O RDERABLES Performing Organization Address [facility] Co de Phone Number [facility] [place] [address] * CEA (08/01/2022 10:15 PM EST) Carcinoembryonic Antigen 2.2 <=3.8 ng/mL [facility] Comment: Reference range: ??(20-69 years): Non-smoker: [...] Villar MD CHEMISTRY ORDERABLES Performing Organization Address City/[facility] Co de Phone Number [facility] [place] [address] * Carbohydrate Antigen 19-9 (08/01/2022 10:15 PM EST) CA 19-9 7.1 <=35.0 u/ml [facility] Comment: This result was generated using a Greg Lynn immunoassay. ??Results obtained from other methods or manufacturers cannot be used interchangeably with this method. Blood Venous Draw / Unknown 08/01/2022 10:15 PM EST 08/01/2022 10:36 PM EST Narrative Resulting Agency Comment Spec In Lab Oumou Villar MD CHEMISTRY ORDERABLES Performing Organization Address City/[facility]/ZIP Co de Phone Number [facility] [place] [address] * (ABNORMAL) Cancer Antigen 125 (08/01/2022 10:15 PM EST) CA 125 40.8(H) <=38.1 unit/mL [facility] Comment: CA 125 Reference Interval ??Postmenopausal: [...] Villar MD CHEMISTRY ORDERABLES Performing Organization Address City/[facility]/ZIP Co de Phone Number [facility] [place] [address] * Type and Screen Validity (08/01/2022 10:15 PM EST) T&S only valid at On license of [facility] LABORATORY Comment:This Type and Screen result is only valid at the [facility] Blood 08/01/2022 10:1 5 PM EST 08/01/2022 10:28 PM EST Narrative Resulting Agency Comment Spec In Lab Nai Wright MD BLOOD BANK LAB ORDER GILBERTO Performing Organization Address City/[facility]/ZIP Co de Phone Number [facility] [place] [address] * ABORH Recheck Status (08/01/2022 10:15 PM EST) ABORH Recheck Order Order Placed [facility] ABORH Type Recheck Not Performed [facility] Blood 08/01/2022 10:1 5 PM EST 08/01/2022 10:28 PM EST Narrative Resulting Agency Comment Spec In Lab Nai Wright MD BLOOD [place] [address] * Gold Tube HOLD (08/01/2022 10:15 PM EST) Pathologist [facility] Gold Hold Sample in lab. [facility] Blood Venous Draw / Unknown 08/01/2022 10:15 PM EST 08/01/2022 10:29 PM EST Nai Wright MD CHEMISTRY ORDERABLES Performing Organization Address City/[facility]/[place] [address] * (ABNORMAL) Differential, Automated (08/01/2022 10:15 PM EST) [facility] Neutrophil % 65.2 % [facility] Neutrophil Absolute 8.26(H) 1.70 - 6.10 x10(3)/mc L [facility] Lymph % 26.2 % [facility] Lymphocytes Abs 3.3(H) 0.9 - 3.2 x10(3)/mc L [facility] Monocyte % 6.9 % [facility] Monocyte Abs 0.9 0.3 - 0.9 x10(3)/mc L [facility] Eos % 0.6 % [facility] Eosinophils Abs 0.1 0.0 - 0.4 x10(3)/mc L [facility] Basophil % 0.1 % [facility] Baso Absolute 0.0 0.0 - 0.1 x10(3)/mc L [facility] Immature Gran % 1.00 % [facility] Comment: Immature granulocytes(IG's)percentage and absolute count will include metamyelocytes, myelocytes, and promyelocytes. Blood smears from CBCs yielding IG's will be scanned manually for concordance. If this scan disagrees with the automated IG or if promyelocytes are noted, a manual differential will be performed. Immature Gran Absolute 0.13(H) 0.00 - 0.04 x10(3)/mc L [facility] Blood 08/01/2022 10:1 5 PM EST 08/01/2022 10:29 PM EST Narrative Resulting Agency Comment Spec In Lab Nai Wright MD HEMATOLOGY ORDERABLE S [facility] [place] [address] * (ABNORMAL) Hemogram (08/01/2022 10:15 PM EST) White Blood Cell 12.6(H) 4.0 - 9.5 x10(3)/mc L [facility] Red Blood Cell 4.25 4.00 - 5.21 x10(6)/mc L [facility] Hemoglobin 13.7 11.7 - 15.5 g/dL [facility] Hematocrit 39.3 35.7 - 45.8 % [facility] Mean Cell Volume 92.5 82.6 - 94.4 fL [facility] Mean Cell Hemoglobin 32.2(H) 27.1 - 32.0 pg [facility] Mean Cell Hemoglobin Concentration 34.9 31.7 - 35.0 g/dL [facility] Platelet 286 145 - 357 x10(3)/mc L [facility] [facility] RDW Standard Deviation 43.4 37.0 - 46.0 fL [facility] RDW coefficient of variation 12.6 11.5 - 14.1 % [facility] Mean Platelet Volume 9.2 7.6 - 12.9 fL [facility] NRBC% auto 0.0 % [facility] ITAL LABORATORY NRBC Absolute 0.000 0.000 - 0.000 x10(3)/mc L [facility] Blood 08/01/2022 10:1 5 PM EST 08/01/2022 10:29 PM EST Narrative Resulting Agency Comment Spec In Lab Nai Wright MD HEMATOLOGY ORDERABLE S [facility] [place] [place] [address] * Antibody screen (08/01/2022 10:15 PM EST) Pathologist [facility] Ab Screen Interp Negative [facility] Expires at [id number] on: 08/04/2022 [facility] Blood 08/01/2022 10:1 5 PM EST 08/01/2022 10:28 PM EST Narrative Resulting Agency Comment Spec In Lab Nai Wright MD BLOOD BANK LAB ORDER GILBERTO [facility] [place] [address] * ABO/Rh Typing (08/01/2022 10:15 PM EST) [facility] ABORH Type O Pos [facility] Blood 08/01/2022 10:1 5 PM EST 08/01/2022 10:28 PM EST Narrative Resulting Agency Comment Spec In Lab Nai Wright MD BLOOD BANK LAB ORDER GILBERTO Performing Organization Address City/[facility]/ZIP Co de Phone Number [facility] [place] [address] * Lipase (08/01/2022 10:15 PM EST) [facility] Lipase 11 0 - 60 unit/L [facility] Blood 08/01/2022 10:1 5 PM EST 08/01/2022 10:29 PM EST Narrative Resulting Agency Comment Spec In Lab Oumou Villar MD CHEMISTRY ORDERABLES Performing Organization Address City/[facility]/ZIP Co de Phone Number [facility] [place] [address] * Hepatic Function Panel (08/01/2022 10:15 PM EST) [facility] Protein, Total 7.2 6.1 - 8.0 g/dL [facility] Albumin 4.4 3.2 - 5.2 g/dL [facility] Aspartate Aminotransferase 13 0 - 30 unit/L [facility] Alanine Aminotransferase 23 0 - 30 unit/L [facility] Alkaline Phosphatase 84 35 - 105 unit/L [facility] Bilirubin, Total 0.2 0.2 - 1.3 mg/dL [facility] Bilirubin, Direct 0.1 0.0 - 0.3 mg/dL [facility] Blood 08/01/2022 10:1 5 PM EST 08/01/2022 10:29 PM EST Narrative Resulting Agency Comment Spec In Lab Oumou Villar MD CHEMISTRY ORDERABLES [facility] [place] [address] * Basic Metabolic Panel (non-fasting) (08/01/2022 10:15 PM EST) Glucose 93 65 - 199 mg/dL [facility] Comment:Diabetes: >=200 mg/d L plus symptoms Blood Urea Nitrogen 13 8 - 18 mg/dL [facility] Creatinine 0.78 0.70 - 1.20 mg/dL [facility] Sodium 136 135 - 145 mmol/L [facility] Potassium 4.1 3.5 - 5.0 mmol/L [facility] Comment: Please note: ??Patients with WBC >100,000 may have falsely elevated Potassium levels. ??For accurate Potassium quantification in these patients send serum separator tube (gold top) for subsequent determinations. ??Contact the Clinical Chemistry Laboratory if there are any questions. Chloride 101 98 - 107 mmol/L [facility] Carbon Dioxide 23 22 - 31 mmol/L [facility] Anion Gap 12 5 - 15 mmol/L [facility] Calcium 9.2 8.5 - 10.5 mg/dL [facility] Est Glomerular Filtration Rate 86 >=60 mL/min/1. 73 m?? [facility] Comment: This patient's estimated GFR [...] Villar MD CHEMISTRY ORDERABLES Performing Organization Address [facility] Co de Phone Number [facility] [place] [address] * (ABNORMAL) Urinalysis with reflex Culture (08/01/2022 10:10 PM EST) Glucose, Urine Dipstick Negative Negative mg/dL [facility] Protein, Urine Dipstick Negative Negative mg/dL [facility] Bilirubin, Urine Dipstick Negative Negative mg/dL [facility] Comment: Clinical correlation required for positive Urine Bilirubin results as false positive may occur with some drugs and drug related products. If a false positive is suspected a serum total bilirubin should be considered if clinically indicated. Urobilinogen, Urine Dipstick Normal Normal mg/dL [facility] pH, Urn (dipstick) 6.5 5.0 - 8.0 [facility] Blood, Urine Dipstick Negative Negative mg/dL [facility] Ketone, Urine Dipstick Negative Negative mg/dL [facility] Nitrite, Urine Dipstick Negative Negative [facility] Leukocytes, Urine Dipstick Negative Negative mcL [facility] Appearance, Urine Dipstick Clear Clear [facility] Specific [place] Urine Automated 1.004(L) 1.005 - 1.030 [facility] Color, Urine Dipstick Yellow Yellow [facility] Reflex to Culture No [facility] Urine 08/01/2022 10:1 0 PM EST 08/01/2022 10:29 PM EST Narrative Resulting Agency Comment Spec In Lab Oumou Villar MD URINE ORDERABLES Performing Organization Address [facility] Co de Phone Number [facility] [place] [address] * Film Library- Storage Only Ultrasound Study (07/30/2022 12:00 AM EST) Narrative Dicom, Auditing User - 08/01/2022 9:52 PM EST This exam is auto-finalizing. It's purpose is for storage only. Kayleigh Goldsmith Justyle FILM LIBRARY ORD ERABLES * Film Library- Storage Only CT Spine (07/29/2022 12:05 AM EST) Narrative Dicom, Auditing User - 08/01/2022 9:53 PM EST This exam is auto-finalizing. It's purpose is for storage only. Kayleigh COLORADOReactivity FILM LIBRARY ORD ERABLES * Film Library- Storage Only CT Chest Abdomen Pelvis (07/29/2022 12:00 AM EST) Narrative Dicom, Auditing User - 08/01/2022 9:51 PM EST This exam is auto-finalizing. It's purpose is for storage only. Kayleigh Goldsmith Justyle FILM LIBRARY ORD ERABLES documented in this encounter Visit Diagnoses Not on filedocumented in this encounter Admitting Diagnoses Diagnosis Adnexal mass Other specified symptom associated with female genital organs documented in this encounter Administered Medications Inactive Administered Medications - up to 3 most recent administrations Medication Order MAR Action Action Date Dose Rate Site acetaminophen (Tylenol) tablet 650 mg 650 mg, Oral, EVERY 6 HOURS, First dose on 08/07/22 at 0830, Until Discontinued, Maximum dose of [...] Given 08/07/2022 9:12 AM EST 50 mg cyclobenzaprine (Flexeril) tablet 5 mg 5 mg, Oral, 3 TIMES DAILY PRN, Starting on Tue08/07/22 at 0830, Until Tue08/08/22 at 1739, Muscle spasms, Routine enoxaparin (Lovenox) (40 mg/0.4 mL) subcutaneous injection 40 mg 40 mg, Subcutaneous, NIGHTLY, First dose on Tue08/03/22 at 2100, Until Discontinued, Routine Given 08/07/2022 8:42 PM EST 40 mg Given 08/06/2022 9:29 PM EST 40 mg Given 08/05/2022 8:33 PM EST 40 mg ibuprofen (Advil) tablet 600 mg 600 mg, Oral, EVERY 6 HOURS PRN, Starting on Tue08/07/22 at 1940, Until Tue08/08/22 at 1739, Pain, Administer orally with milk [...] Given 08/04/2022 6:42 AM EST 3 mLs lidocaine (Lidoderm) 5% patch 3 patch 3 [...] 10 mg, Oral, DAILY, First dose on 08/08/22 at 0900, Until Discontinued, Routine Given 08/08/2022 9:19 AM EST 10 mg nicotine (Nicoderm CQ) 21 mg/24 hr [...] 08/08/22 at 1739, Nausea oxyCODONE (Roxicodone) tablet 10-15 mg 10-15 mg, [...] Intravenous, 2 TIMES DAILY, First dose on Teresa 08/05/22 at 0900, Until Discontinued Given 08/08/2022 9:18 AM EST 40 mg Given 08/07/2022 8:39 PM EST 40 mg Given 08/07/2022 9:11 AM EST 40 mg polyethylene glycoL (Miralax) packet 17 g 17 g, Oral, DAILY, First dose (after last modification) on 08/07/22 at 0900, Until Discontinued, Clamp ngt for 60 min when giving please, Routine Given 08/08/2022 9:18 AM EST 17 g QUEtiapine (SEROquel) tablet 100 mg [...] Given 08/07/2022 9:15 AM EST 5 mLs tiZANidine (Zanaflex) tablet 4 mg 4 mg, Oral, DAILY, First dose on 08/07/22 at 0930, Until Discontinued, Routine Given 08/08/2022 [...] SCHEDULED, 4 doses, First dose on Teresa 08/05/22 at 0600, Last dose on Tue08/06/22 at 0600, Maximum dose of acetaminophen is 4,000 mg from all sources in 24 hours. When ordered for pain, acetaminophen should be given even when other ordered pain medications are indicated. , Routine, Is ketorolac (Toradol) IV contraindicated? No, Can this patient tolerate oral medications or suppositories? No 0530 (Given - Provider: Tosin Mcknight RN) acetaminophen (Ofirmev) (1,000 mg/100 mL) infusion 1,000 mg (COMPLETED) 1,000 mg, Intravenous, at 400 mL/hr, Administer over 15 Minutes, EVERY 8 HOURS SCHEDULED, 3 doses, First dose (after last reorder) on Tue08/06/22 at 1400, Last dose on 08/07/22 at 0600, Maximum dose of acetaminophen is 4,000 mg from all sources in 24 hours. When ordered for pain, acetaminophen should be given even when other ordered pain medications are indicated. , Routine, Is ketorolac (Toradol) IV contraindicated? No, Can this patient tolerate oral medications or suppositories? No 1515 (Given - Provider: Herlinda Flores RN)2127 (Given - Provider: Tosin Mcknight RN) 0505 (Given - Provider: Tosin Mcknight RN) acetaminophen (Tylenol) tablet 650 mg 650 mg, Oral, EVERY 6 HOURS, First dose on 08/07/22 at 0830, Until Discontinued, Maximum dose of acetaminophen is 4,000 mg from all sources in 24 hours. When ordered for pain, acetaminophen should be given even when other ordered pain medications are indicated. , Routine 0911 (Given - Provider: Jazlyn Hahn, OLIVIA)1430 (Not Given - Provider: Jazlyn Hahn RN - Reason: Patient/family refused)2040 (Given - Provider: Hazel Tadeo RN) 0408 (Given - Provider: Surendra Cassidy RN)0918 (Given - Provider: Keyla Trejo, OLIVIA)1353 (Given - Provider: Keyla Trejo, OLIVIA) amitriptyline (Elavil) tablet 100 mg 100 mg, Oral, NIGHTLY, First dose on Tue08/06/22 at 2100, Until Discontinued, Please clamp ngt for 60min when giving, Routine 2131 (Given - Provider: Tosin Mcknight RN) 2040 (Given - Provider: Hazel Tadeo, OLIVIA) atenoloL (Tenormin) tablet 50 mg 50 mg, Oral, DAILY, First dose on Tue08/07/22 at 0900, Until Discontinued, Hold if sbp<100, hr<60 Please clamp ngt for 1hr when giving, Routine 911 (Given - Provider: Jazlyn Hahn, OLIVIA) 918 (Given - Provider: Keyal Trejo, OLIVIA) diphenhydrAMINE (Benadryl) (50 mg/mL) injection 25 mg (COMPLETED) 25 mg, Intravenous, ONCE, 1 dose, On Tue08/06/22 at 0415, Routine 032 (Given - Provider: Tosin Mcknight, OLIVIA) enoxaparin (Lovenox) (40 mg/0.4 mL) subcutaneous injection 40 mg 40 mg, Subcutaneous, NIGHTLY, First dose on Tue08/03/22 at 2100, Until Discontinued, Routine 2128 (Given - Provider: Tosin Mcknight RN) 2041 (Given - Provider: Hazel Tadeo, OLIVIA) hydrALAZINE (Apresoline) (20 mg/mL) injection 5 mg [...] Last dose on Tue08/07/22 at 0445, Routine 1729 (Given - Provider: Herlinda Flores, OLIVIA)2245 (Given - Provider: Tosin Mcknight RN) 0448 (Given - Provider: Tosin Mcknight RN) lidocaine (Lidoderm) 5% patch 3 patch 3 patch, Transdermal, Administer over 12 Hours, DAILY, First dose (after last modification) on Tue08/03/22 at 0900, Until Discontinued, Apply patch(es) for 12 hours, and then remove for 12 hours., Routine 0851 (Patch Applied - Provider: Herlinda Flores RN - Comment: l and r back)2130 (Patch Removed - Provider: Tosin Mcknight RN) [...] Minutes 0845 (New Bag - Provider: Herlinda Flores RN)1045 (Stopped - Provider: Herlinda Flores RN) metoprolol [...] Tosin Mcknight, OLIVIA)0911 (Given - Provider: Jazlyn Hahn, OLIVIA) metoprolol (LOPRESSOR) injection 5 mg (CANCELED) 5 mg, Intravenous, EVERY 4 HOURS, First dose (after last modification) on Tue08/06/22 at 0130, Until Discontinued, Hold if SBP<100, HR<60 0123 (Given - Provider: Priscilla Vallejo RN)0530 (Given - Provider: Tosin Mcknight RN) nicotine (Nicoderm CQ) 21 mg/24 hr [...] RN) 1730 (Patch Removed - Provider: Hazel Tadeo, OLIVIA) nicotine (Nicoderm CQ) 21 mg/24 hr [...] Routine 1353 (Patch Applied - Provider: Keyla Trejo RN)1538 (Due: Patch Removed - Provider: Automatic Discharge [...] Until Discontinued 0844 (Given - Provider: Herlinda Flores RN)2100 (Given - Provider: Tosin Mcknight RN) 09 (Given - Provider: Jazlyn Hahn, OLIVIA)203 (Given - Provider: Hazel Tadeo, OLIVIA) 0918 (Given - Provider: Keyla Trejo RN) polyethylene glycoL (Miralax) packet 17 g (CANCELED) 17 g, Per NG tube, DAILY, First dose on Tue08/06/22 at 1115, Until Discontinued, Clamp ngt for 60 min when giving please, Routine 1237 (Given - Provider: Herlinda Flores RN) polyethylene glycoL (Miralax) packet 17 g 17 g, Oral, DAILY, First dose (after last modification) on Tue08/07/22 at 0900, Until Discontinued, Clamp ngt for 60 min when giving please, Routine 0910 (Not Given - Provider: Jazlyn Hahn, RN - Reason: Patient/family refused) 0918 (Given - Provider: Keyla Trejo, RN) potassium chloride 10 mEq in sterile water 100 mL infusion (COMPLETED) 10 mEq, Intravenous, EVERY 2 HOURS, 2 doses, First dose on Tue08/06/22 at 1000, Last dose on Tue08/06/22 at 1200, Administer over 60 Minutes, Warning Vesicant/Irritant Medication 1114 (New Bag - Provider: Herlinda Flores, RN)1159 (Stopped - Provider: Herlinda Flores, RN)1222 (New Bag - Provider: Herlinda Flores, RN)1322 (Stopped - Provider: Herlinda Flores, RN) QUEtiapine (SEROquel) tablet 100 mg 100 mg, Oral, NIGHTLY, First dose on Tue08/06/22 at 2100, Until Discontinued, Please clamp ngt for 60min while giving, Routine 2131 (Given - Provider: Tosin Mcknight, OLIVIA) 2040 (Given - Provider: Hazel Tadeo, OLIVIA) sodium chloride 0.9 % (flush) (BD PosiFlush Normal Saline 0.9) flush 5 mL 5 mL, Intravenous, 2 TIMES DAILY, First dose on Tue08/02/22 at 2100, Until Discontinued, Routine 0851 (Given - Provider: Herlinda Flores RN)213 (Given - Provider: Tosin Mcknight, OLIVIA) 914 (Given - Provider: Jazlyn Hahn, RN)2039 (Given - Provider: Hazel Tadeo, OLIVIA) 09 (Given - Provider: Keyla Trejo, OLIVIA) sodium phosphates (FLEET) 19-7 gram/118 mL rectal enema 1 Bottle (COMPLETED) 1 Bottle, Rectal, ONCE, 1 dose, On Tue08/06/22 at 0815, Routine 1115 (Given - Provider: Herlinda Flores, OLIVIA) tiZANidine (Zanaflex) tablet 4 mg 4 mg, Oral, DAILY, First dose on Tue08/07/22 at 0930, Until Discontinued, Routine 0912 (Given - Provider: Jazlyn Hahn, RN) 0919 (Given - Provider: Keyla Trejo, RN) Continuous Medication Order 08/06/2022 08/07/2022 08/08/2022 dextrose 5% and sodium chloride 0.9% with potassium chloride 20 mEq infusion (CANCELED) 100 mL/hr, Intravenous, CONTINUOUS, Starting on Tue08/06/22 at 0815, Until 08/07/22 at 0828 0840 (New Bag - Provider: Herlinda Flores, RN) 0451 (New Bag - Provider: Tosin Mcknight, RN)0910 (Stopped - Provider: Jazlyn Hahn, OLIVIA) HYDROmorphone (Dilaudid) (1 mg/mL) in sodium chloride 0.9% [address] infusion syringe (CANCELED) Intravenous, [address] [facility] ONLY, Starting on Teresa 08/05/22 at 1200, [...] Subcutaneous, ONCE PRN, 1 dose, Starting on 08/02/22 at 1728, Until 08/08/22 at 1739, for discomfort with PIV insertion, Routine ondansetron (pf) (Zofran) (2 mg/mL) injection 4 mg 4 mg, Intravenous, EVERY 8 HOURS PRN, Starting on Teresa 08/05/22 at 0700, Until 08/08/22 at 1739, Nausea oxyCODONE (Roxicodone) tablet 10-15 mg(Linked Group 2) 10-15 mg, Oral, EVERY 4 HOURS PRN, Starting on 08/08/22 at 0738, Until 08/08/22 at 1739, Pain, severe pain (7-10), Initial dose 10mg. If pain control not adequate in 60 minutes, give additional 5mg., Routine 09 (See Alternativ e - Provider: Keyla Trejo RN)1059 (See Alternative - Provider: Keyla Trejo RN)1454 (See Alternative - Provider: Keyla Trejo RN) oxyCODONE (Roxicodone) tablet 5-10 mg(Linked Group 2) 5-10 mg, Oral, EVERY 4 HOURS PRN, Starting on 08/08/22 at 0738, Until 08/08/22 at 1739, Pain, moderate pain (4-6), Initial dose 5mg. If pain control not adequate in 60 minutes, give additional 5mg., Routine 09 (Given - Provid er: Keyla Trejo RN)1059 [...] Routine documented in this encounter Care Teams Animal Doctor Relationship Specialty Start Date End Date Lena Womack APRN PCP - General Family Medicine 08/02/22 documented as of this encounter
--- OUTSIDE RECORDS SUMMARY | 2024-02-12 18:08 | XMS_ITS | Encounter Summary ---
[place] [address] Care Team Providers Care Sharepoint Admin Name Role Phone Lena Womack APRN Primary Care Provider [phone] Reason for Visit * Auth/Cert (Routine) Specialty Diagnoses / Procedures Referred By Contbyron t Referred To Contact Diagnoses Adnexal mass Antonio Rojas MD [facility] [place] [address] [facility] Referral ID Status Reason Start Date Expiration Date Visits Re quested Visits Authorized [id number] 1 1 Encounter Details Date Type Department Care Team (Late st Contact Info) Description 08/02/2022 5:52 PM EST Anesthesia Event [place] [phone] Laura Baltazar MD [facility] [place] [address] Tay Hays MD [facility] [place] [address] Anesthesia Record Procedure Summary Procedure Name Responsible Anesthesiologist Anesthesia Start Time Anesthesia Stop Time LAPAROSCOPY, DIAGNOSTIC, ABDOMEN (WRVU 5.14) (Left: Abdomen) Laura Baltazar MD 08/02/22 1752 08/02/222105 Events Date Time Event Comment 08/02/2022 1441 1752 AN Verify 1752 Start 175 An Start Data 180 An Induction 180 An Intubation 1807 Anesthesia Ready 1833 Procedure Start 1843 Quick Note Surgery convert ing to open 2049 Quick Note TAP block being performed. 2052 Nerve Block 2055 Extubation/LMA Out 2057 an stop data 2103 Recovery or ICU Handoff Asuncion ent care was transferred to the destination unit staff after review of the patient's medical history, current anesthetic/surgical status and plan, according to the Provider Handoff Checklist. 2105 Stop Meds Name Total Midazolam 2 mg fentaNYL 100 mcg IV Lidocaine 100 mg Propofol 300 mg Rocuronium 110 mg PHENYLephrine 80 mcg Ondansetron 8 mg Dexamethasone 8 mg Heparin 5,000 Units ceFAZolin 2 g Propofol INF 760.5 mg Albuterol Inhaler 6 puff Ketamine 10 mg/mL 50 mg PHENYLephrine INF 670 mcg acetaminophen IV 1,000 mg HYDROmorphone 2 mg/mL 2.5 mg Sugammadex 400 mg ketorolac (Toradol) (30 mg/mL) injection 30 mg BUpivacaine 0.25% 80 mL Lactated Ringers 900 mL * Agents Name O2 O2 Auxiliary Flowmeter 2 * Blood No blood administrations on file. Lines, Drains, and Airways Type Details Placement Removal Incision 08/02/22; 1834; lowe r quadrant; laparoscopic puncture 08/02/22 183 by Delaney Wiggins RN Incision 08/02/22; 1854; abdo men; midline 08/02/22 185 by Delaney Wiggins RN Drain/Device Site 12/09/11; Right; justino ast; collapsible closed device (#1:19 coy drain); 08/05/22 12/09/11 0000 by Lianne Dillon RN 08/05/22 0000 by Esther Leung, OLIVIA Drain/Device Site 12/09/11; Left; shelly st; collapsible closed device (#2:19 coy drain); 08/05/22 12/09/11 0000 by Lianne Dillon RN 08/05/22 0000 by Esther Leung, OLIVIA (RETIRED) Peripheral IV Line - Single Lumen 08/01/22; 2214; median cubital vein (antecubital fossa), left; [id number]-kbo-fnupyd catheter system; Anatomical Landmarks; 20 gauge; Tayo Harrell; no longer indicated, removed per policy/procedure, catheter/device intact; 08/03/22; 17108/01/22 221 by Thom Harrell, CRAIG 08/03/22 171 by Bhargavi Duncan, OLIVIA (RETIRED) Peripheral IV Line - Single Lumen 08/02/22; 1804; metacarpal vein (top of hand), right; uwvm-rcp-caomtq catheter system; Anatomical Landmarks; 18 gauge; removed per physician, catheter/device intact, no longer indicated; 08/08/22; 1507 08/02/22 180 by Mery Murphy CRNA 08/08/22 150 by Keyla Trejo RN ETT Mask Ventilation: Adjunct (2); ETT Type: Cuffed, Oral; ETT Size: 7 mm; Indirect: Video; Attempts: 1; Laryngoscopy Grade: 1; ETT Placement Verified By: Auscultation, Capnometry, Visual; Secured at Teeth: 21 cm; Inserted by: Erma Murphy; Removal Date: 08/02/22; Removal Time: 205508/02/221805 by Mery Murphy CRNA 08/02/222055 by Mery Murphy CRNA NG/OG Tube 08/02/22; 180; orogastric; mouth; 08/02/22; 201708/02/221806 by Mery Murphy CRNA 08/02/222017 by Mery Murphy CRNA Urethral Catheter 08/02/22; 1900; inse rted at this facility; drainage bag to dependent drainage; urethral catheter removed, tubing intact, per protocol/policy; 08/06/22; 131408/02/22 190 by Grace Manzanares RN 08/06/221314 by Herlinda Flores RN documented in this encounter Social History Tobacco Use Types Packs/Day Years Used Date Smoking Tobacco: Every Day Cigarettes 0.3 35 Smokeless Tobacco: Never Alcohol Use Standard Drinks/Week Comments No 0 (1 standard drink = 0.6 oz pur e alcohol) denies h/o ETOH abuse Sex and Gender Information Value Date Recorded Sex Assigned at Not on file Gender Identity Not on file Sexual Orientation Not on file documented as of this encounter OR Notes * Anesthesia Procedure Notes - Joe Soto MD - 08/02/2022 9:36 PM EST Associated Order(s): Anesthesia Block Anesthesia Block Date/Time: 08/02/2022 8:30 PM Performed by: Joe Soto MD Authorized by: Estuardo Lamb MD Start Time: 08/02/2022 8:30 PM End Time: 08/02/2022 8:50 PM Patient Location: Main OR Indication: Post-op Pain Control Post-op pain management at the request of surgeon. Block Type: TAP and other Laterality: Bilateral Position: Supine Prep: Chlorhexidine, mask, cap, sterile gloves, hand hygeine and patient draped Block Technique: B-zavtm-lfpdc 10 cm Ultrasound Guided: YES Ultrasound Image Saved Ultrasound guidance was used to identify the targeted neuronal structure. Ultrasound was also used to identify needle position and to identify tissue (bone, muscle, and blood vessels) to prevent inadvertent intraneural or intravascular needle placement and injection. The spread of local anesthetic was confirmed with live ultrasound imaging. Single-Shot: Single-shot Local Anesthetic Volume(s) Injected for Nerve Block: BUpivacaine 0.25% - Perineural 80 mL - 08/02/2022 8:30:00 PM Nerve Sensory/MotorTest: Events: no complications Staff: Resident/FIELD COURT RESEARCHER:: Joe Soto MD Attending Physician:: Estuardo Lamb MD Notes: B/L TAP and Rectus Sheath blocks 20cc at L and R TAP, 20cc at L and R Rectus Sheath, 80cc total of 0.25% bupivacaine * Anesthesia Postprocedure Evaluation - Laura Baltazar MD - 08/02/2022 9:14 PM EST Department of Anesthesiology Post-procedure Note Patient: Katheryn Carranza Procedure Summary Date: 08/02/22 Room / Location: [address] MAIN OR Anesthesia Start: 1751 Anesthesia Stop: 2105 Procedures: LAPAROSCOPY, DIAGNOSTIC, ABDOMEN (WRVU 5.14) (Left: Abdomen) @SALPINGO-OOPHORECTOMY, UNILATERAL OR EVA (WRVU 12.16) (Left: Abdomen) Diagnosis: (left adnexal mass) Surgeons: Antonio Rojas MD Responsible Provider: Laura Baltazar MD Anesthesia Type: general ASA Status: 2 All Anesthesia Providers: Anesthesiologist: Laura Baltazar MD FIELD COURT RESEARCHER: Mery Murphy CRNA Vitals Value Taken Time BP 146/133 08/02/225 Temp 36.2 ??C (97.2 ??F) 08/02/22 2200 Pulse 75 08/02/22 2243 Resp 16 08/02/22 2243 SpO2 95 % 08/02/223 Pain Level 6 08/02/22 222 Vitals shown include unvalidated device data. Patient Location: PACU/[facility] Level of Consciousness: Conscious but Sleepy Pain Management: Pain Being Addressed PONV: None Cardiovascular Status: At Baseline and Hemodynamically Stable Respiratory Status: At Baseline and Supplemental O2 (NC or FM) Postoperative Fluid Status: Intravascular EUvolemia Possible Anesthetic Complications: NONE apparent at time of evaluation Final Primary Anesthesia Type: General (The anesthetic type performed was the same as planned.) Comments: Patient appears comfortable. Post procedure TAP block performed prior to emergence and extubation. Post-operative dilaudid PAC available in PACU. Laura Baltazar MD * Anesthesia Preprocedure Evaluation - Stephen Hagen MD - 08/02/2022 9:55 AM EST Pre-Anesthesia Evaluation for: Katheryn Carranza a 61 y.o. female. Procedure(s): LAPAROSCOPY, DIAGNOSTIC, ABDOMEN (WRVU 5.14) Patient Active Problem List Diagnosis Date Noted ??? *Adnexal mass 08/02/2022 ??? Primary osteoarthritis of right [...] EVA performed by DEMETRA SOMMERS at [facility] MAIN OR Social History Tobacco Use ??? Smoking status: Every Day Packs/day: 0.25 Years: 35.00 Pack years: 8.75 Types: Cigarettes ??? Smokeless tobacco: Never Substance Use Topics ??? Alcohol use: No Comment: denies h/o ETOH abuse Social History Substance and Sexual Activity Drug Use Yes ??? Types: Marijuana Comment: marijuana use (not medical marijuana), denies h/o drug abuse Allergies Allergen Reactions ??? Allergenic Extracts Pollen ??? Tramadol Low potassium ??? Zoloft [Sertraline] Nausea And Vomiting Medications: MAR and/or home medications have been reviewed. Physical Exam: Preprocedure Vitals Current as of 08/02/22 0955 BP: 158/88 Pulse: Resp: SpO2: 90 Temp: Height: 165.1 cm (5' 5) (08/01/22) Weight: 97.5 kg (215 lb) (08/01/22) BMI: 35.77 IBW: 57 kg (125 lb 10.6 oz) Last edited 08/02/22 0530 by SL Currently displaying vitals information from multiple entries within 180 minutes of most recent vitals. Airway Assessment: Mallampati: III TM distance: >3 FB Neck ROM: full Cardiovascular Assessment: Rhythm: regular Rate: normal Pulmonary Assessment: breath sounds clear to auscultation Dental Assessment: (+) edentulous Misc Assessment: IV access: Peripheral line Last Filed Perioperative Cognitive Screening None Anesthesia Plan: ASA 2 general, with a(n) intravenous induction Katheryn Carranza is an 61 y.o. 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 Allergy: -- Allergenic Extracts -- Pollen -- Tramadol -- Low potassium -- Zoloft (Sertraline) -- Nausea And Vomiting Patient Vitals in the past 24 hrs: 08/02/22 0530, SpO2:90 % 08/02/22 0430, SpO2:92 % 08/02/22 0400, BP:158/88, SpO2:92 % 08/01/22 2345, BP:162/82, SpO2:94 % 08/01/22 2330, BP:168/88, SpO2:93 % 08/01/22 2300, BP:(!) 155/93, SpO2:93 % 08/01/22 2230, BP:(!) 188/92, SpO2:95 % 08/01/222015, BP:(!) 194/93, Temp:35.8 ??C (96.5 ??F), Temp src:Temporal, Pulse:76, Resp:16, SpO2:98 %, Height:165.1 cm (5' 5), Weight:97.5 kg (215 lb) BP Readings from Last 3 Encounters: 08/02/22 : 158/88 04/27/16 : 112/81 03/23/16 : 121/75 Labs: Lab Results Component Value Date WBC 12.6 (H) 08/01/2022 HGB 13.7 08/01/2022 HCT 39.3 08/01/2022 MCV 92.5 08/01/2022 PLATELET 286 08/01/2022 Lab Results Component Value Date NA 136 08/01/2022 K 4.1 08/01/2022 CL 101 08/01/2022 CO2 23 08/01/2022 BUN 13 08/01/2022 CREATININE 0.78 08/01/2022 GLUCOSE 93 08/01/2022 CALCIUM 9.2 08/01/2022 ESTGFR 86 08/01/2022 Lab Results Component Value Date ALT 23 08/01/2022 AST 13 08/01/2022 ALKPHOS 84 08/01/2022 BILITOT 0.2 08/01/2022 BILIDIR 0.1 08/01/2022 ALBUMIN 4.4 08/01/2022 PROT 7.2 08/01/2022 Lab Results Component Value Date TSH 2.20 02/27/2015 No results found for: HA1C Glucose Lvl Date Value Ref Range Status 08/01/2022 93 65 - 199 mg/dL Final Comment: Diabetes: >=200 mg/dL plus symptoms NPO >4 METS No active GERD Plan: GETA with PIV access and standard ASA monitors; consented for rescue TAP The patient was informed of the risks, benefits and alternatives of anesthesia. These risks included, but were not limited to, post-operative nausea and/or vomiting, pain, sore throat, dental/lip trauma, and other rare but serious complications such as major organ damage, awareness, severe allergicreactions, position-related nerve injuries, corneal abrasion/blindness and need blood transfusions.All questions were sought and answered. Consent was signed and placed in chart. Region - Other Informed Consent: Anesthetic plan and risks discussed with patient. Use of blood products discussed with patient who consented to blood products. Anesthesia Screening documented in this encounter Plan of Treatment Upcoming Encounters Date Type Department Care Team (Late st Contact Info) Description 03/07/2024 10:00 AM EDT Appointment XRay at [address] [place] [phone] Tien Zurita MD [facility] [place] [address] 03/07/2024 10:40 AM EDT Office Visit Neurosurgery at [facility] [place] [phone] Angel Hankins, PA [facility] [place] [address] documented as of this encounter Procedures Procedure Name Priority Date/Time Associated Diagnosis Comments ANESTHESIA BLOCK Routine 08/02/2022 8:30 PM EST documented in this encounter Results * Anesthesia Block (08/02/2022 8:30 PM EST) Narrative Estuardo Lamb MD - 08/02/2022 8:30 PM EST Joe Soto MD ? 08/02/2022 ??9:37 PM Anesthesia Block Date/Time: 08/02/2022 8:30 PM Performed by: Joe Soto MD Authorized by: Estuardo Lamb MD Start Time: ??08/02/2022 8:30 PM End Time: ??08/02/2022 8:50 PM Patient Location: ??Main OR Indication: ??Post-op Pain Control Post-op pain management at the request of surgeon. ?? Block Type: ??TAP and other Laterality: ??Bilateral Position: ??Supine Prep: ??Chlorhexidine, mask, cap, sterile gloves, hand hygeine and patient draped Block Technique: ?? O-yszwl-juuum ?? 10 cm ??Ultrasound Guided: ??YES ??Ultrasound Image Saved ?Ultrasound guidance was used to identify the targeted neuronal structure. Ultrasound was also used to identify needle position and to identify tissue (bone, muscle, and blood vessels) to prevent inadvertent intraneural or intravascular needle placement and injection. The spread of local anesthetic was confirmed with live ultrasound imaging. ?Single-Shot: ??Single-shot Local Anesthetic Volume(s) Injected for Nerve Block: ?? BUpivacaine 0.25% - Perineural 80 mL - 08/02/2022 8:30:00 PM Nerve Sensory/MotorTest: ??Events: no complications ?? Staff: ??Resident/FIELD COURT RESEARCHER:: ??Joe Soto MD ??Attending Physician:: ??Estuardo Lamb MD Notes: ?? B/L TAP and Rectus Sheath blocks 20cc at L and R TAP, 20cc at L and R Rectus Sheath, 80cc total of 0.25% bupivacaine Estuardo Lamb MD [employer] OPERATOR [facility] documented in this encounter Visit Diagnoses Not on filedocumented in this encounter Administered Medications Inactive Administered Medications - up to 3 most recent administrations Medication Order MAR Action Action Date Dose Rate Site acetaminophen (Ofirmev) (1,000 mg/100 mL) infusion Intravenous, Administer over 15 Minutes, PRN, Starting on Tue08/02/22 at 1846, Until Tue08/02/22 at 210, Anesthesia Intra-op, Routine Given 08/02/2022 6:46 PM EST 1,000 mg albuteroL 90 mcg/actuation inhaler Inhalation, PRN, Starting on Tue08/02/22 at 1825, Until Tue08/02/22 at 210, Anesthesia Intra-op, Routine Given 08/02/2022 8:18 PM EST 2 puffs Given 08/02/2022 6:42 PM EST 2 puffs Given 08/02/2022 6:25 PM EST 2 puffs BUpivacaine (Marcaine) (2.5 mg/mL) 0.25% bolus injection (Anesthesia) Perineural, Starting on Tue08/02/22 at 2030, Until Tue08/02/22 at 2137, Anesthesia Intra-op, Routine Given 08/02/2022 8:30 PM EST 80 mLs ceFAZolin (Ancef) 1 g in dextrose 5% 50 mL infusion Intravenous, PRN, Starting on Tue08/02/22 at 1821, Until Tue08/02/22 at 210, Administer over 30 Minutes, Anesthesia Intra-op Given 08/02/2022 6:21 PM EST 2 g dexAMETHasone (Decadron) injection Intravenous, PRN, Starting on Tue08/02/22 at 1816, Until Tue08/02/22 at 210, Anesthesia Intra-op, Routine Given 08/02/2022 6:16 PM EST 8 mg fentaNYL (pf) (50 mcg/mL) multi-dose injection Intravenous, PRN, Starting on Tue08/02/22 at 1752, Until Tue08/02/22 at 210, Anesthesia Intra-op, Routine Given 08/02/2022 6:01 PM EST 50 mcg Given 08/02/2022 5:52 PM EST 50 mcg heparin (porcine) (1,000 units/mL) injection Intravenous, PRN, Starting on Tue08/02/22 at 1820, Until Tue08/02/22 at 2106, Anesthesia Intra-op, Routine Given 08/02/2022 6:20 PM EST 5,000 Uni ts HYDROmorphone (Dilaudid) (2 mg/mL) multi-dose injection solution Intravenous, PRN, Starting on Tue08/02/22 at 1852, Until Tue08/02/22 at 2106, Anesthesia Intra-op, Routine Given 08/02/2022 8:02 PM EST 0.5 mg Given 08/02/2022 7:52 PM EST 0.5 mg Given 08/02/2022 7:42 PM EST 0.5 mg ketamine (Ketalar) (10 mg/mL) IV bolus injection (Anesthesia) Intravenous, PRN, Starting on Tue08/02/22 at 1817, Until Tue08/02/22 at 2106, Anesthesia Intra-op Given 08/02/2022 6:46 PM EST 20 mg Given 08/02/2022 6:17 PM EST 30 mg ketorolac (Toradol) (30 mg/mL) injection Intravenous, PRN, Starting on Tue08/02/22 at 1955, Until Tue08/02/22 at 2106, Anesthesia Intra-op, Routine Given 08/02/2022 7:55 PM EST 30 mg lactated ringers infusion Intravenous, CONTINUOUS PRN, Starting on Tue08/02/22 at 1752, Until Tue08/02/22 at 2106, Anesthesia Intra-op New Bag 08/02/2022 5:52 PM EST lidocaine (pf) (Xylocaine) (20 mg/mL) 2% injection syringe Intravenous, PRN, Starting on Tue08/02/22 at 1803, Until Tue08/02/22 at 2106, Anesthesia Intra-op, Routine Given 08/02/2022 6:03 PM EST 100 mg midazolam (pf) (Versed) (1 mg/mL) multi-dose injection Intravenous, PRN, Starting on Tue08/02/22 at 1752, Until Tue08/02/22 at 2106, Anesthesia Intra-op, Routine Given 08/02/2022 5:52 PM EST 2 mg ondansetron (pf) (Zofran) (2 mg/mL) injection Intravenous, PRN, Starting on Tue08/02/22 at 1816, Until Tue08/02/22 at 210, Anesthesia Intra-op, Routine Given 08/02/2022 8:00 PM EST 4 mg Given 08/02/2022 6:16 PM EST 4 mg PHENYLephrine (Mg-Synephrine) (80 mcg/mL) in sodium chloride 0.9% 250 mL infusion Intravenous, CONTINUOUS PRN, Starting on Tue08/02/22 at 1816, Until Tue08/02/22 at 210, Anesthesia Intra-op, Routine Rate/Dose Change 08/02/2022 7:03 PM EST 10 mcg/min 7.5 mL/hr Restarted 08/02/2022 6:56 PM EST 20 mcg/min 15 mL/hr New Bag 08/02/2022 6:16 PM EST 20 mcg/min 15 mL/hr PHENYLephrine in NS (PF) (MG-SYNEPHRINE) 0.8 mg/10 mL (80 mcg/mL) multi-dose injection Syrg Intravenous, PRN, Starting on Tue08/02/22 at 1803, Until Tue08/02/22 at 210, Anesthesia Intra-op, Routine Given 08/02/2022 6:03 PM EST 80 mcg propofoL (Diprivan) (10 mg/mL) infusion Intravenous, CONTINUOUS PRN, Starting on Tue08/02/22 at 1816, Until Tue08/02/22 at 210, Anesthesia Intra-op, Routine New Bag 08/02/2022 6:16 PM EST 50 mcg/kg/min 29.25 mL/hr propofoL (Diprivan) 10 mg/mL bolus injection (Anesthesia) Intravenous, PRN, Starting on Tue08/02/22 at 1803, Until Tue08/02/22 at 2106, Anesthesia Intra-op Given 08/02/2022 8:16 PM EST 100 mg Given 08/02/2022 6:03 PM EST 200 mg rocuronium (Zemuron) (10 mg/mL) multi-dose injection Intravenous, PRN, Starting on Tue08/02/22 at 1804, Until Tue08/02/22 at 210, Anesthesia Intra-op, Routine Given 08/02/2022 7:43 PM EST 10 mg Given 08/02/2022 6:04 PM EST 100 mg sugammadex (Bridion) 100 mg/mL injection Intravenous, PRN, Starting on Tue08/02/22 at 2019, Until Tue08/02/22 at 2106, Anesthesia Intra-op, Routine Given 08/02/2022 8:19 PM EST 400 mg documented in this encounter Care Teams Sharepoint Admin Relationship Specialty Start Date End Date Lena Womack APRN PCP - General Family Medicine 08/02/22 documented as of this encounter
--- OUTSIDE RECORDS SUMMARY | 2024-02-12 18:08 | XMS_ITS | Encounter Summary ---
Author Organization [facility] [place] [place] [address] Care Team Providers Care Nuclear Technician Name Role Phone Shanta Lena Villeda APRN Primary Care Provider [phone] Reason for Visit * Reason Comments Abdominal Pain Left ovarian mass Back Pain Fall * Auth/Cert (Routine) Specialty Diagnoses / Procedures Referred By Contac t Referred To Contact Diagnoses Adnexal mass Antonio Rojas MD [facility] [place] [address] [facility] Referral ID Status Reason Start Date Expiration Date Visits Re quested Visits Authorized [id number] 1 1 Encounter Details Date Type Department Care Team (Late st Contact Info) Description 08/02/2022 3:30 PM EST - 08/02/2022 5:42 PM EST Surgery [place] [address] Antonio Rojas MD [facility] [place] [address] LAPAROSCOPY, DIAGNOSTIC, ABDOMEN (WRVU 5.14) Social History Tobacco Use Types Packs/Day Years [...] Sign Reading Time Taken Comments Blood Pressure 158/88 08/02/2022 4:00 AM EST Pulse 76 08/01/2022 8:16 PM EST Temperature 35.8 ??C (96.5 ??F) 08/01/2022 8:16 PM ES T Respiratory Rate 16 08/01/2022 8:16 PM EST Oxygen Saturation 92% 08/02/2022 11:45 AM EST Inhaled Oxygen Concentration - - Weight 97.5 kg (215 lb) 08/01/2022 8:16 PM EST Height 165.1 cm (5' 5) 08/01/2022 8:16 PM EST Body Mass Index 36.69 08/01/2022 8:16 PM EST documented in this encounter Discharge Summaries * Sharon Tse MD - 08/08/2022 1:44 PM EST Discharge Summary Patient Name: Katheryn Carranza Patient Age: 61 y.o. Language: Macedonian Race: White Ethnicity: Not nor Admit date: [...] Inpatient Provider Contact Information: Dr. Antonio Rojas, [facility] Gynecologic Oncology, Discharge Diagnoses (Hospital Problems) [...] 07/29/21, she presented to the ED at [facility]. She had a CTAP demonstrating a 15cm complex left adnexal mass. She also had a CT spine performed without acute findings. Patient was dispositioned to outpatient follow-up with [facility] On[facility] at [facility]. ?? Tonight, she reports worsening pain [...] There were no concern for malignancy. #Pain: FLOOR SCRUBBER started for pain control for her abdominal and back pain. BIT team consulted due to using opioids without Rx at home and to assist with overall assessment and plan for going home. FLOOR SCRUBBER was eventually transitioned to PO tylenol, ibuprofen, [...] Yellow Yellow Appearance UA Clear Clear Spec [place] UA 1.005 - 1.030 1.011 pH UA [...] Tumor markers 08/01/22: CA-125=40.8 / CEA=2.2 / BF87-5=2.1 Studies: EGD 08/05/22: ??The examined esophagus was [...] 90 tablet Refills: 3 naloxone 4 mg/actuation [place] Commonly known as: Narcan 1 each by [...] 0 dihydroergotamine 0.5 mg/pump act. (4 mg/mL) [place] Commonly known as: MIGRANAL One spray per [...] as needed. Refills: 0 Miscellaneous Medical Supply [facility] Bilateral wrist splints for CTS Quantity: 2 [...] PATIENT DISCHARGE INSTRUCTIONS Gynecologic Oncology phone number: [phone] (Nurse ext 4 then 4; appointment ext 1 then 4). After hours and on weekends please call hospital plastics production machine operator at [phone] and ask for Gynecologic Oncologist painting contractor. Call your doctor if you develop: --A [...] useof opioid medications, here are some options: [facility], [facility] Saumya Kumari, Drug & Alcohol Counselor, MS, [facility] [address] [facility] [address] [place] [address] Offers online therapy Watson Wiley, Drug & Alcohol Counselor, MS, LAD, ICGC-1, MAC 4 [facility] [address] [place] [address] Offers online therapy [facility] Asha Quintana, Drug & Alcohol Counselor, MA, [facility], [place], [place] [address] Offers online therapy [facility], [facility] Ara Pratt, Drug & Alcohol Counselor, [facility], [facility] [address] [place], [place] [address] Offers online therapy [facility] Jose Miguel Dominique, Pre-Licensed Professional, KNOT BUMPER [address] [place], [place] [address] x9 Scott Young, Drug & Alcohol Counselor, MS, [facility], [facility] [address] [place], [place] [address] Offers online therapy Dr. Michel Junior, Drug & Alcohol Counselor, [facility], [place], [facility], [facility], [facility] [address] [facility] [address] [address] [place], [place] [id number] Offers online therapy To review the profiles of private practice therapists, including ones listed above: 1) Visit www.psychologytoday.com 2) Enter your city name or zip code 3) Filter search results on the right hand side, including by insurance 4) Review therapist profiles 5) Call to schedule an intake appointment Residential Treatment: [facility] ([facility]) [facility] [place], [place] [phone] [facility] [address] [place], [place] [phone] [facility] Behavioral Health [address] [place] [address] [address] Medication Assisted Therapy: [facility] [place] [address] [place] [address] Services: Buprenorphine treatment Substance use treatment People with trauma, people with HIV or AIDS and people with co-occurring pain and substance use Naltrexone administration, methadone maintenance and suboxone prescription Peer Support Groups Narcotics Anonymous (NA) NE: , www.gsana.org Online NA Meetings NA Video Meetings www.Quantumna.org/meetings NA Text Chat Meetings Www.OX FACTORYub.org SMART Recovery Meetings via Zoom 5:00-6:00pm, free and open to all To join Zoom meetin. Visit www.Shunra Software 5. Click on calendar on top of toolbar 6. Find the correct meeting date and time 7. Click the zoom link and enter password provided 211: [facility] The [facility], managed by [facility], is located at [address] [place] [address] in [place]. It offers screening as well as other services onsite, and connects clients with the care that is most appropriate for their needs. Services are accessible anytime, day or night, by calling 2-1-1. Overnight, respite care is available in [facility] and [place]. Additional Substance Use Treatment Resources www.[facility].wa.gov/dcbcs/bdas/documents/muhptzde-rutyx-zgfeslgiu.pdf www.psychologytoday.com/ Www.rethinkingdrinking.niaaa.nih.gov/ www.samhsa.gov/arzkmghwvj-alnrsjve-wxuynofgz/lucjtuxdvmzf-dkxkttm-uaam/treatment -practitioner-box storage worker Mental Health Crisis [place] Mental [facility] Crisis Line: Dial 988 www.samhsa.gov/find-help/98 Harm-Reduction Resources Mobile harm-reduction. For more information about receiving supplies: including syringe exchange, fentanyl test strips, and naloxone, or to schedule an appointment: [place] clients call and leave a message for Nancy (ext. 105) or Mateo Cruz (ext. 104). [place] clients call to speak with Mateo Feliz www.[facility].wa.gov/dphs/bchs/std/documents/sspregistrations.pdf Warning Illicit drugs do not come with [...] is being approved. Online Stress Reduction Resources www.IMASTE/videos-features/videos/gagbkljuh-sdbmbodzc-8-7-8-breath/ www.Ardica TechnologiesindMetrolightord.org/2012/zergtotvj-uufeicddo-pyrlbpy-moment/ www.MoonClerk/ www.mindful.org/ www.freemindfulness.org/ Future Appointments and Orders Future Appointments and Orders Future Appointments Provider Department Dept Phone 08/16/2022 10:00 AM Antonio Rojas MD Gynecology Oncology at [facility] Arrive at: Chemical Equipment Sales Engineer Area [phone] 08/16/2022 11:00 AM Automatic Stacker, Onc Nurse Gynecology Oncology at [facility] Arrive at: Chemical Equipment Sales Engineer Area [phone] Discharge References/Attachments Prediabetes (Macedonian) Provider Contact Information: Lena Womack, CHANGE COORDINATOR [phone] documented in this encounter Discharge Instructions * Discharge Instructions* Sharon Tse MD - 08/05/2022 10:57 AM EST Substance Use Disorder Resources From BIT (Behavioral Intervention Team), Inpatient psych services: If you are interested in receiving some counseling support related to reducing or stopping your useof opioid medications, here are some options: [facility], [facility] Saumya Kumari, Drug & Alcohol Counselor, MS, [facility] [address] [facility] [address] [place], [place] [id number] Offers online therapy Watson Wiley, Drug & Alcohol Counselor, MS, [facility], [facility]GC[facility]1, [facility] [address] [place], [place] [phone] Offers online therapy [facility] Asha Quintana, Drug & Alcohol Counselor, [place], [facility], [place], [place] [address] Offers online therapy [facility], [facility] Ara Pratt, Drug & Alcohol Counselor, [facility], [facility] [address] [place], [place] [address] Offers online therapy [facility] Jose Miguel Dominique, Pre-Licensed Professional, KNOT BUMPER [address] [place], [place] [address] x9 Scott Young, Drug & Alcohol Counselor, MS, [facility], NCC [address] [place], [place] [address] Offers online therapy Dr. Michel Junior, Drug & Alcohol Counselor, Irma, MA, [facility], Th, [facility] [address] [facility] [address] [place], [place] [phone] Offers online therapy To review the profiles of private practice therapists, including ones listed above: 1) Visit www.psychologyModusP.com 2) Enter your city name or zip code 3) Filter search results on the right hand side, including by insurance 4) Review therapist profiles 5) Call to schedule an intake appointment Residential Treatment: [facility] ([facility]) [place] [address] [place], [place] [phone] [facility] [address] [place], [place] [phone] [facility] Behavioral Health [address] [place] [address] [facility] [address] [facility] [place] [address] Medication Assisted Therapy: [facility] is [place] [address] [place] [address] Services: Buprenorphine treatment Substance use treatment People with trauma, people with HIV or AIDS and people with co-occurring pain and substance use Naltrexone administration, methadone maintenance and suboxone prescription Peer Support Groups Narcotics Anonymous (NA) [place]: , www.gsana.org Online NA Meetings NA Video Meetings www.Quantumna.org/meetings NA Text Chat Meetings Www.Owl biomedicalaloneclub.org SMART Recovery Meetings via Zoom 5:00-6:00pm, free and open to all To join Zoom meeting: Visit www.Shunra Software Click on calendar on top of toolbar Find the correct meeting date and time Click the zoom link and enter password provided 211: [facility] The [facility], managed by [facility], is located at [address] [place] [address] in [place]. It offers screening as well as other services onsite, and connects clients with the care that is most appropriate for their needs. Services are accessible anytime, day or night, by calling 2-1-1. Overnight, respite care is available in [facility] and [place]. 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 Crisis Line: Dial [address].gov/find-help/988 Harm-Reduction Resources Mobile harm-reduction. For more information about receiving supplies: including syringe exchange, fentanyl test strips, and naloxone, or to schedule an appointment: [place] clients call and leave a message for Nancy (ext. 105) or Mateo Cruz (ext. 104). NE clients call to speak with Mateo Feliz www.[facility].wa.gov/dphs/bchs/std/documents/sspregistrations.pdf Warning Illicit drugs do not come with [...] is being approved. Online Stress Reduction Resources www.Cardagin Networks.Corso12/videos-features/videos/udtzzcdpi-mrhiyborz-8-7-8-breath/ www.themindfulword.org/2012/ehlzrsooh-bmwngxdhn-wowhbjy-moment/ www.Fishki.Corso12/ www.mindful.org/ www.freemindfulness.org/ * Patient Instructions* Sharon Tse MD - 08/03/2022 9:56 AM EST PATIENT DISCHARGE INSTRUCTIONS Gynecologic Oncology phone number: [phone] (Nurse ext 4 then 4; appointment ext 1 then 4). After hours and on weekends please call hospital plastics production machine operator at [phone] and ask for Gynecologic Oncologist painting contractor. Call your doctor if you develop: --A [...] be sent through Care Everywhere. * Prediabetes (Macedonian) documented in this encounter Medications at Time [...] regular diet for breakfast/lunch. Abd. pain present. FLOOR SCRUBBER discontinued this AM and patient transitioned to [...] of opioid dependence ??? Ordered for dilaudid FLOOR SCRUBBER due to patient discomfort and NG tube [...] EST Patient seen and examined with the marine engine driver oncology team. I agree with their assessment [...] but denies need for intervention. On dilaudid FLOOR SCRUBBER and scheduled pain meds with good effect. [...] Yellow Yellow Appearance UA Clear Clear Spec [place] UA 1.005 - 1.030 1.011 pH UA [...] of opioid dependence ??? Ordered for dilaudid FLOOR SCRUBBER due to patient discomfort and NG tube [...] EST Patient seen and examined with the marine engine driver oncology team. I agree with their assessment [...] but denies need for intervention. On dilaudid FLOOR SCRUBBER and scheduled pain meds with good effect. [...] Pain continues to be managed with Dilaudid FLOOR SCRUBBER and tylenol. Diet changed to NPO give [...] Prieto, in a two level home in [place], [place]. Bedroom and bathroom she typically uses [...] per neurosurg) Lines: Ted, PIV, NG tube, FLOOR SCRUBBER Activity Orders: Up with assistance Diet: NPO [...] moderate mid-low back with transfers, pt used FLOOR SCRUBBER at start of session and end of [...] benefit from a short rehab stay at [facility] to progress mobility and maximize [...] be determined Goals: To be achieved by 3/15/23: ONGOING ?? 1. Pt. to demonstrate knowledge [...] Code: TEF x2 Demetra Hess PT Pager: [phone] Physical Therapy Inpatient Rehabilitation Department * Fifi [...] Typical intake is 2-3 meals/day includingyogurt and Mongolian toast with syrup, sandwich with cheese and deli meat for lunch and meat/potatoes/vegetable for dinner. Drinks coffee with sugar and flavored creamer. 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 Reviewed sources of added sugar in diet [...] was able to discuss plan with provider [facility] [id number] Pager #: [phone] * Lola Barahona MD - 08/06/2022 6:48 [...] Yellow Yellow Appearance UA Clear Clear Spec [place] UA 1.005 - 1.030 1.011 pH UA [...] of opioid dependence ??? Ordered for dilaudid FLOOR SCRUBBER due to patient discomfort and NG tube [...] A1c 6.2. ?? Nutrition consult ordered ?? :??Founrier catheter in place. Urine output adequate post-operatively.? [...] LR continued at 100 mL/hr and dilaudid FLOOR SCRUBBER in use. Patient sleeping between nursing care. [...] Schroeder MD PGY-3 08/06/22 * Demetra Zapien Jose Ramon - 08/05/2022 6:44 PM EST Assumed care at 1700. Second IV placed by vascular. Fluids restarted. Suppository given. Controlling pain with FLOOR SCRUBBER pump. * Jeannine Amos OT - 08/05/2022 [...] up as able and when appropriate. Pager: [phone] Jeannine Amos OT 08/05/2022 Occupational Therapy Rehabilitation [...] into upper-abdominal tightness overnight followed by vomiting. Brohman warm earlier but no fever or chills. [...] to her uncontrolled pain. Discussed with pharmacist painting contractor- okay to treat with 1x dose metoprolol [...] endoscopy - NPO hold meds - 18 Mongolian NGT placed to 58cm with >1L output. [...] back with 1 assist and walker. Dilaudid FLOOR SCRUBBER discontinued and started on PO oxycodone - [...] MAMMOPLASTY, EVA performed by DEMETRA SOMMERS at [facility] MAIN OR ??? PRO LAP, DIAGNOSTIC ABDOMEN Left 08/02/2022 LAPAROSCOPY, DIAGNOSTIC, ABDOMEN (WRVU 5.14) performed by Antonio Rojas MD at [facility] MAIN OR ??? PRO REMOVAL OF OVARY/TUBE(S) Left 08/02/2022 @SALPINGO-OOPHORECTOMY, UNILATERAL OR EVA (WRVU 12.16) performed by Antonio Rojas MD at [facility] MAIN OR Active Non-Hospital Problems Diagnosis [...] outlinedin this evaluation. Time IN / OUT: 0130-3499 Total Minutes, Physical Therapy: 37 Dawn Fung, PT Pager: [phone] Physical Therapy Inpatient Rehabilitation Department * Nevaeh [...] MAMMOPLASTY, EVA performed by DEMETRA SOMMERS at [facility] MAIN OR ??? PRO LAP, DIAGNOSTIC ABDOMEN Left 08/02/2022 LAPAROSCOPY, DIAGNOSTIC, ABDOMEN (WRVU 5.14) performed by Antonio Rojas MD at [facility] MAIN OR ??? PRO REMOVAL OF OVARY/TUBE(S) Left 08/02/2022 @SALPINGO-OOPHORECTOMY, UNILATERAL OR EVA (WRVU 12.16) performed by Antonio Rojas MD at [facility] MAIN OR Social History: Home Setup: [...] Educated on and demonstrated adaptive techniques with welder journeyman and sock aide. Pt doffed socks sitting EOB with supervision and welder journeyman. Pt donned underwear seated EOB with supervision, welder journeyman, and min cues for technique. Pt donned [...] throughout session. Pt demonstrated good carryover with welder journeyman and sock aide for donning underwear and [...] and measurable assessment of functional outcome. Nevaeh Ranulfo Krystyna 08/04/2022 Occupational Therapy Rehabilitation Department Associated attestation - Jeannine Amos OT - 08/04/2022 4:52 PM EST Patient status, treatment interventions, and goals discussed with student. I am in agreement with all details and associated flowsheet rows as documented and was present for all aspects of the patient treatment session. Treatment session performed and note written with this field underwriter. Please do not hesitate to contact this field underwriter with any questions, thank you. Jeannine Amos OT Pager #[phone] Inpatient Rehabilitation * Antonio Rojas MD - [...] a 6/10 at rest. She feels the FLOOR SCRUBBER is helping her pain, but she finds [...] multimodal regimen as detailed below. Will wean FLOOR SCRUBBER as able, and plan BIT team consult [...] #Analgesia #History of opioid dependence ??? Dilaudid FLOOR SCRUBBER-demand only. Plan to transition to PO medications [...] intact. Sat inchair today. Continues with Dilaudid FLOOR SCRUBBER - pain moderately managed. Abdominal binder used [...] Intake/Output Summary (Last 24 hours) at 08/03/2022 1453 Last data filed at 08/03/2022 0314 Gross [...] multimodal regimen as detailed below. Will wean FLOOR SCRUBBER as able, and plan BIT team consult [...] #Analgesia #History of opioid dependence ??? Dilaudid FLOOR SCRUBBER- demand only. Can consider adding continuous rate [...] periods of time to gather supplies. Dilaudid FLOOR SCRUBBER in use and continued on scheduled toradol [...] has abdominal pain and is using a FLOOR SCRUBBER but denies any leg pain now, though [...] PRN. Gloria Hdz MD 08/03/2022 3:29 AM [facility] Neurosurgery Inpatient Pager: #[phone] Personal Pager: #[phone] * Antonio Rojas MD - 08/03/2022 1:22 AM EST [facility] - Progress Note Katheryn Carranza is [...] immediately post-operatively. Though endorsing minimal effect from FLOOR SCRUBBER analgesia, exam findings are overall reassuring against pain that is mub-vl-mlreedzbnx to what is expected post-operatively and she is able to sleep comfortably. We discussed continued trial of demand-only FLOOR SCRUBBER, but can consider a continuous rate if needed given history of opioid dependence. Please see systems based plan below: Neuro:??Presenting concern was progressive bilateral lower extremity numbness, find to have a left paracentral disc herniation at L5/S1 as well as fracture at T12. #Bilateral lower extremity numbness ??? Neurosurgery consulted, appreciate continued recommendations #Analgesia #History of opioid dependence ??? Dilaudid FLOOR SCRUBBER- demand only. Can consider adding continuous rate [...] per protocol ??? Neurology consulted ??? Dilaudid FLOOR SCRUBBER, Tylenol, toradol ??? Home tizanidine, flexeril continued [...] ?? Patient discussed with Dr. Rojas, attending [facility] Oncologist. ?? Angely Scruggs MD PGY-4 08/02/22 [...] 07/29/21, she presented to the ED at [facility]. She had a CTAP demonstrating a 15cm complex left adnexal mass. She also had a CT spine performed without acute findings. Patient was dispositioned to outpatient follow-up with [facility] Oncology at [facility]. Tonight, she reports worsening pain in [...] family. Social History and Habits: lives in [place], [place]. 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 Dilaudid FLOOR SCRUBBER, Tylenol, toradol ??? Home tizanidine, flexeril continued [...] seen and discussed with Dr. Rojas, attending [facility] Oncologist. Bubba Schroeder MD PGY-3 08/02/2022 I [...] at OSHrecently. Her pain has been severe. Automatic Stacker has not formally evaluated yet. Gynecology has [...] The patient presented at that time to [facility] where she had CT of the chest, [...] 40.8. ED Course as of 08/02/22 0258 TueAug 02, 2022 0046 Spoke with radiology re: [...] Patient signed out to oncoming team awaiting BUFF WHEEL FABRICATOR pelvic exam, further pain control, and MRI [...] abd on the left. Was seen at [facility] ED and CTs of abd and L spine were done. 15cm left ovarian mass identified. Has only a right kidney from . Ultrasound done at [facility] showed a large cyst. Was [facility] for further care as her pain [...] Leukocytes UA Negative Appearance UA Clear Spec [place] UA 1.004 (L) Color UA Yellow Culture [...] Validity Result Value T&S only valid at [facility] Hosp Automatic Stacker consult for right ovarian mass with intractable pain. She also has significant back pain and needs evaluation to determine if this represents metastasis from undiagnosed cancer Assessment/plan: Pelvic mass with intractable pain Admission to marine engine driver Oumou Villar MD 08/02/22 0858 * Thom [...] 61 y.o. female currently admitted to the [facility] Onc service s/p diagnostic lap converted to [...] General Surgery will sign off. Please page [phone] with any questions. Faiza Huang MD General Surgery PGY-2 08/06/2022 11:32 AM * Consult Note [facility] 08/05/2022 12:10 PM EST DEAN (Behavioral Intervention Team) [facility] checked in with patient briefly. She talked about yesterday's experience and her concern about her GI system. Patient having visit with family, so BIT will return at a later time. Tosin Bland MA, [facility] - BIT (Behavioral Intervention Team) Dept. of Psychiatry - Inpatient Psych. Services Pager: [phone] * Consult Note - Sarah Reed MD - 08/05/2022 7:43 AM EST Images from the original note were not included. DIVISION OF GASTROENTEROLOGY & HEPATOLOGY INITIAL CONSULT REQUESTING PROVIDER: Antonio Rojas MD NAME: Katheryn Carranza : 1960 HPI: Katheryn Carranza 61 y.o./ w/ PMH of Depression/Anxiety, HTN, opiate dependence adm 08/01/2022 9:16 PM to the [facility] service for surgical management of complex adnexal mass. GI is consulted for concern of GOO. Per chart review, the patient presented to OSH on 07/29 where she had a CTAP that showed 15cm complex left adnexal mass. She was sent home with marine engine driver onc f/u. She then developed worsening abdominal [...] MAMMOPLASTY, EVA performed by DEMETRA SOMMERS at [facility] MAIN OR ??? PRO LAP, DIAGNOSTIC ABDOMEN Left 08/02/2022 LAPAROSCOPY, DIAGNOSTIC, ABDOMEN (WRVU 5.14) performed by Antonio Rojas MD at [facility] MAIN OR ??? PRO REMOVAL OF OVARY/TUBE(S) Left 08/02/2022 @SALPINGO-OOPHORECTOMY, UNILATERAL OR EVA (WRVU 12.16) performed by Antonio Rojas MD at [facility] MAIN OR SOCIAL HX: Social History [...] dihydroergotamine (MIGRANAL) 0.5 mg/pump act. (4 mg/mL) [place], Non-Aerosol One spray per nostril, while holding [...] by mouth nightly. ??? Miscellaneous Medical Supply Mis Bilateral wrist splints for CTS 2 each [...] personally reviewed in eDH CBC: Recent Labs 08/04/22232308/01/222214 WBC 10.1* 12.6* HGB 13.6 13.7 PLATELET 285 286 MCV 92.7 92.5 RDWCV 12.3 12.6 COAG: No results for input(s): PTT, INR, PT in the last 168 hours. CHEM: Recent Labs 08/04/22 23208/01/222214 CREATININE 0.70 0.78 BUN 10 13 NA [...] have questions please contact the health healthcare economics consultant that requested your imaging first. Electronically signed by: Reymundo Fischer MD, [facility] ([phone]), at 08/05/2022 3:[address] Abdomen & [...] have questions please contact the health healthcare economics consultant that requested your imaging first. Electronically signed by: Reymundo Fischer MD, [facility] ([phone]), at 08/05/2022 12:23 AM MRI Lumbar Spine [...] have questions please contact the health healthcare economics consultant that requested your imaging first. Electronically signed by: Devin Mario Do, [facility] ([phone]), at 08/02/2022 5:08 PM MRI Thoracic Spine [...] have questions please contact the health healthcare economics consultant that requested your imaging first. Electronically signed by: Devin Mario Do, [facility] ([phone]), at 08/02/2022 5:08 PM Request For 2nd [...] have questions please contact the health healthcare economics consultant that requested your imaging first. Electronically signed by: Angel Baker DO, [facility] ([phone]), at 08/02/2022 8:41 AM Request For 2nd Read CT Spine Final [...] have questions please contact the health healthcare economics consultant that requested your imaging first. Electronically signed by: Angel Rodriguez [facility] ([phone]), at 08/02/2022 8:25 AM Request for 2nd [...] have questions please contact the health healthcare economics consultant that requested your imaging first. Electronically signed by: Sandra Henderson MD, [facility] ([phone]), at 08/02/2022 10:18 AM Film Library- Storage Only Ultrasound Study Final Result Film Library- Storage Only CT Spine Final Result Film Library- Storage Only CT Chest Abdomen Pelvis Final Result ENDOSCOPY: Reports and images personally reviewed in eDH OSH RECORDS: Obtained and personally reviewed ASSESSMENT & PLAN: Katheryn Carranza 61 y.o./ w/ PMH of Depression/Anxiety, HTN, opiate dependence adm to the [facility] service for surgical management of complex adnexal [...] them as documented. Donnie Obrien MD, NARAYAN Manager Metrologystogie packer Section of Gastroenterology and Hepatology * Consult Note - Jf Hawk MD - 08/05/2022 5:38 AM EST ACUTE CARE SURGERY INPATIENT CONSULT NOTE Patient ID: Patient Name: Katheryn Carranza : 1960 Admit Date: 08/01/2022 9:16 PM Hospital Day: 3 History of Present Illness: Katheryn Carranza is a 61 y.o. female currently admitted to the [facility] service s/p diagnostic lap converted to [...] MAMMOPLASTY, EVA performed by DEMETRA SOMMERS at [facility] MAIN OR ??? PRO LAP, DIAGNOSTIC ABDOMEN Left 08/02/2022 LAPAROSCOPY, DIAGNOSTIC, ABDOMEN (WRVU 5.14) performed by Antonio Rojas MD at [facility] MAIN OR ??? PRO REMOVAL OF OVARY/TUBE(S) Left 08/02/2022 @SALPINGO-OOPHORECTOMY, UNILATERAL OR EVA (WRVU 12.16) performed by Antonio Rojas MD at [facility] MAIN OR Medications: ??? acetaminophen 1,000 [...] dihydroergotamine (MIGRANAL) 0.5 mg/pump act. (4 mg/mL) [place], Non-Aerosol One spray per nostril, while holding [...] have questions please contact the health healthcare economics consultant that requested your imaging first. Electronically signed by: Angel Baker DO, [facility] ([phone]), at 08/02/2022 8:41 AM Request For 2nd [...] have questions please contact the health healthcare economics consultant that requested your imaging first. Electronically signed by: Angel Rodriguez [facility] ([phone]), at 08/02/2022 8:25 AM Request for 2nd [...] have questions please contact the health healthcare economics consultant that requested your imaging first. Electronically signed by: Sandra Henderson MD, [facility] ([phone]), at 08/02/2022 10:18 AM MRI Lumbar Spine [...] have questions please contact the health healthcare economics consultant that requested your imaging first. Electronically signed by: Devin Mario Do, [facility] ([phone]), at 08/02/2022 5:08 PM MRI Thoracic Spine [...] the clinical situation (Reference- Emilyk Et Al, Spine 2001). Findings: (Prevalence in [...] have questions please contact the health healthcare economics consultant that requested your imaging first. Electronically signed by: Devin Mario Do, [facility] ([phone]), at 08/02/2022 5:[address] Abdomen & [...] have questions please contact the health healthcare economics consultant that requested your imaging first. Electronically signed by: Reymundo Fischer MD, [facility] ([phone]), at 08/05/2022 12:23 AM XR Abdomen 1 [...] have questions please contact the health healthcare economics consultant that requested your imaging first. Electronically signed by: Reymundo Fischer MD, [facility] ([phone]), at 08/05/2022 3:21 AM Assessment: Katheryn Carranza [...] with attending surgeon Dr. Hawk. Please page [phone] with questions. Arnav Singh Jr, MD General [...] MD * Consult Note - Tosin Bland [facility] - 08/03/2022 2:45 PM EST BIT Evaluation [...] coordination (min): 15 minutes Tosin Bland MA, [facility] - BIT (Behavioral Intervention Team) Dept. of Psychiatry - Inpatient Psych. Services Pager: [phone] * Initial Assessments - Ava Rogers RN [...] Environment: Others in the home: spouse (4 Uzbek shepards). Current Living Arrangements: home/apartment/condo. Accessibility Concerns:2 level log home (4 REGINO without rails) or 6 REGINO with rails); bedroom on 2nd level [address] Resource / Environmental Concerns: Resource/Environmental Concerns: none Current DME: none (Friend has given her a FWW to use if needed) Home Address confirmed as: [address] [place] [phone] Social & Family Supports: All names listed below confirmed with patient as current and correct Extended Emergency Contact Information Primary Emergency Contact: Prieto Carranza Address: [address] [place] [phone] [facility] [place] Relation: Spouse Secondary Emergency Contact: [place] [address] [facility] [place] Relation: Child Current Care Provided by: [...] Secondary Insurance: N/A ; Prescription Coverage: No ([facility] and [facility]) Preferred Pharmacy: [x+1] #[id number] - [facility] [address] [facility] [address] [place] [id number] Status: Patient is a : No Primary Care Provider confirmed: Lena Womack, JACKIE [phone] Patient/Caregiver Goals of Treatment: Pain control Potential Needs for Transition of Care: none Agency Referrals: n/a Transportation: no concerns Transportation Anticipated: family or friend will provide Concerns to be Addressed: no discharge needs identified Assessment: Patient is admitted to [facility]RIC[facility] service for POD#1 s/p diagnostic laparoscopy, converted [...] mg/mL) in sodium chloride 0.9% 50 mL FLOOR SCRUBBER infusion syringe Intravenous FLOOR SCRUBBER Only Bubba Schroeder MD 50 mg at 08/02/222124 ??? diphenhydrAMINE (Benadryl) (50 mg/mL) injection 25 mg 25 mg Intravenous Q30 Min PRN Bubba Schroeder MD ??? FLOOR SCRUBBER wood Intravenous Continuous PRN Bubba Schroeder MD ??? HYDROmorphone (mg) FLOOR SCRUBBER shift total and Settings verification Intravenous 2 Times Daily- FLOOR SCRUBBER Shift Total Bubba Schroeder MD ??? enoxaparin (Lovenox) (40 mg/0.4 mL) subcutaneous injection 40 mg 40 mg Subcutaneous Nightly Bubba Schroeder MD Home Medications: No current facility-administered medications on file prior to encounter. Current Outpatient Medications on File Prior to Encounter Medication Sig Dispense Refill ??? dihydroergotamine (MIGRANAL) 0.5 mg/pump act. (4 mg/mL) [place], Non-Aerosol One spray per nostril, while holding [...] by mouth nightly. ??? Miscellaneous Medical Supply Misc Bilateral wrist splints for CTS 2 each [...] ADD (attention deficit disorder) ??? Depression ??? ACRHANA (generalized anxiety disorder) ??? Headache ??? Hypertension ??? Neck pain on left side 07/04/2012 ??? Tobacco abuse Past Surgical History: Procedure Laterality Date ??? BREAST REDUCTION SURGERY Bilateral 12/2011 ??? HYSTERECTOMY ??? PRO REDUCTION OF LARGE BREAST 12/09/2011 REDUCTION MAMMOPLASTY, EVA performed by DEMETRA SOMMERS at [facility] MAIN OR Allergies: Allergies Allergen Reactions [...] Flexor digitorum profundus Digit II-V flexion / livestock trader 5 5 L2-3 Iliopsoas Hip flexion 5 [...] 3 wbc, hgb, hct plt Recent Labs 08/01/22 2215 WBC 12.6* HGB [...] have questions please contact the health healthcare economics consultant that requested your imaging first. Electronically signed by: Angel Baker DO, [facility] ([phone]), at 08/02/2022 8:41 AM Request For 2nd [...] have questions please contact the health healthcare economics consultant that requested your imaging first. Electronically signed by: Angel Rodriguez [facility] ([phone]), at 08/02/2022 8:25 AM Request for 2nd [...] have questions please contact the health healthcare economics consultant that requested your imaging first. Electronically signed by: Sandra Henderson MD, [facility] ([phone]), at 08/02/2022 10:18 AM MRI Lumbar Spine [...] have questions please contact the health healthcare economics consultant that requested your imaging first. Electronically signed by: Devin Mario Do, [facility] ([phone]), at 08/02/2022 5:08 PM MRI Thoracic Spine [...] the clinical situation (Reference- Emilyk Et Al, Spine 2001). Findings: (Prevalence in [...] have questions please contact the health healthcare economics consultant that requested your imaging first. Electronically signed by: Devin Mario Do, [facility] ([phone]), at 08/02/2022 5:08 PM Assessment: Katheryn Carranza [...] Rojas MD - 08/02/2022 6:34 PM EST [facility] Operative Note Patient Name: Katheryn Carranza : [id number] MR#: [id number] Case Date: 08/02/2022 Surgeon: Surgeon(s) and Role: [...] Booker MD - 08/02/2022 12:42 PM EST [facility] Neurosurgery Consultation Note Date & Time of Consult: 08/02/2022 1207 Referring Service: [facility] Referring Attending: Antonio Rojas MD Neurosurgery Attending: Dr. Duenas Place of Consult: ED22/MRI [place] ID: Name: Katheryn Carranza, 61 y.o. female Admission Date: 08/01/2022 Reason for consult/CC: Left paracentral L5/S1 disc herniation HPI: This is a 61 y.o. RIGHT-handed female with a PMH of tobacco abuse, HTN, chronic neck pain who presented to [facility] with c/o progressive back pain x3 [...] of days without benefit. She presented [facility] ED [facility] 07/29/2022 due to progression of this pain wrapping around to her abdomen mony CT of her abdomen and pelvis as well as a CT of her spine was obtained. As the pain continued to progress she presented to [facility] ED yesterday 08/01 and second reads [...] MAMMOPLASTY, EVA performed by DEMETRA SOMMERS at [facility] MAIN OR Medications: No current facility-administered medications on file prior to encounter. Current Outpatient Medications on File Prior to Encounter Medication Sig Dispense Refill ??? dihydroergotamine (MIGRANAL) 0.5 mg/pump act. (4 mg/mL) [place], Non-Aerosol One spray per nostril, while holding [...] by mouth nightly. ??? Miscellaneous Medical Supply Misc Bilateral wrist splints for CTS 2 each [...] ??? lidocaine 1 patch Transdermal Daily ??? FLOOR SCRUBBER shift total and Settings verification Intravenous 2 Times Daily- FLOOR SCRUBBER Shift Total ??? amitriptyline 100 mg Oral [...] have questions please contact the health healthcare economics consultant that requested your imaging first. Electronically signed by: Angel Baker DO, [facility] ([phone]), at 08/02/2022 8:41 AM Request For 2nd [...] have questions please contact the health healthcare economics consultant that requested your imaging first. Electronically signed by: Angel Rodriguez, [facility] ([phone]), at 08/02/2022 8:25 AM Request for 2nd [...] have questions please contact the health healthcare economics consultant that requested your imaging first. Electronically signed by: Sandra Henderson MD, [facility] ([phone]), at 08/02/2022 10:18 AM Assessment: This is a 61 y.o. RIGHT-handed female not on antiplatelet/anticoagulants with a PMH of tobacco abuse, HTN, chronic neck pain who presented to [facility] with c/o progressive back pain x3 [...] dihydroergotamine (MIGRANAL) 0.5 mg/pump act. (4 mg/mL) [place], Non-Aerosol One spray per nostril, while holding [...] by mouth nightly. ??? Miscellaneous Medical Supply [facility] Bilateral wrist splints for CTS 2 each [...] dihydroergotamine (MIGRANAL) 0.5 mg/pump act. (4 mg/mL) [place], Non-Aerosol One spray per nostril, while holding [...] by mouth nightly. ??? Miscellaneous Medical Supply [facility] Bilateral wrist splints for CTS 2 each [...] MAMMOPLASTY, EVA performed by DEMETRA SOMMERS at [facility] MAIN OR Allergies: Allergies Allergen Reactions [...] Flexor digitorum profundus Digit II-V flexion / livestock trader 5 5 L2-3 Iliopsoas Hip flexion 5 [...] 3 wbc, hgb, hct plt Recent Labs 08/01/22 2215 WBC 12.6* HGB 13.7 HCT 39.3 PLATELET 286 Last 3 Lytes Recent Labs 08/01/22 2215 NA 136 K 4.1 CL 101 CO2 23 BUN 13 CREATININE 0.78 Last 3 LFTs Recent Labs 08/01/22 2215 AST 13 ALT 23 ALKPHOS 84 BILITOT 0.2 BILIDIR 0.1 Last Ca, Mg, Phos Recent Labs 08/01/22 2215 CALCIUM 9.2 Diagnostic Tests and Imaging: Results [...] have questions please contact the health healthcare economics consultant that requested your imaging first. Electronically signed by: Angel Rodriguez [facility] ([phone]), at 08/02/2022 8:25 AM Assessment: Katheryn Carranza [...] Therapy, Volume 87, Issue 6, 2006, Pages 043-81, [email or web address] Patient seen with Dr. Pinky Castellano MD [...] pt fell yesterday. [facility] for further care. Pt has left ovarian mass found on u/s. Pt states her legs are numb and tingly for last 2 days. Pt restless in wc, appears in discomfort. HPI (Adult) Stated Reason for Visit: I have sciatica and back pain, so I went to [facility] tuesday and they said I have a mass on my ovary. (left) History Obtained From: patient Precipitating Event(s): unknown Onset of Symptoms: worsening Duration (Weeks): 3 Associated Signs/Symptoms: abdominal pain documented in this encounter Plan of Treatment Upcoming Encounters Date Type Department Care Team (Late st Contact Info) Description 03/07/2024 10:00 AM EDT Appointment XRay at [address] [place] [address] Tien Zurita MD [facility] [place] [address] 03/07/2024 10:40 AM EDT Office Visit Neurosurgery at [facility] [place] [phone] Angel Hankins PA [facility] [place] [address] documented as of this encounter Procedures Procedure Name Priority Date/Time Associated Diagnosis Comments HC MAGNESIUM, SERUM Routine 08/07/2022 5 :16 AM EST BASIC METABOLIC PANEL Routine 08/07/2022 5:16 AM EST LAVENDER TUBE HOLD Routine 08/06/2022 5: 18 AM EST HC MAGNESIUM, SERUM Routine 08/06/2022 5 :18 AM EST BASIC METABOLIC PANEL Routine 08/06/2022 5:18 AM EST UPPER GI ENDOSCOPY Routine 08/05/2022 2: 01 [...] TO PATHOLOGY Routine 08/02/2022 7:39 PM EST NON-BUFF WHEEL FABRICATOR FINAL REPORT Routine 08/02/2022 7:07 PM EST CYTOPATHOLOGY NON-GYNECOLOGICAL Routine 08/02/2022 7:07 PM EST Removal Of Ovary/Tube(S) (90084) 08/02/2022 5:52 PM EST left adnexal mass Lap, Diagnostic Abdomen (76584) 08/02/2022 5:52 PM EST left adnexal mass [...] 08/01/2022 10:15 PM EST TYPE AND SCREEN ([facility]/CGP/COMPA) STAT 08/01/2022 10:15 PM EST CANCER [...] EST) Magnesium 0.89 0.69 - 1.07 mmol/L [facility] Blood 08/07/2022 5:16 AM EST 08/07/2022 5:27 AM EST Narrative Resulting Agency Comment Spec In Lab Antonio Rojas MD CHEMISTRY ORDERABLES [facility] [place] [place] [address] * (ABNORMAL) Basic Metabolic Panel (non-fasting) (08/07/2022 5:16 AM EST) Glucose 122 65 - 199 mg/dL [facility] Comment:Diabetes: >=200 mg/d L plus symptoms Blood Urea Nitrogen 9 8 - 18 mg/dL [facility] Creatinine 0.68(L) 0.70 - 1.20 mg/dL [facility] Sodium 137 135 - 145 mmol/L [facility] Potassium 3.8 3.5 - 5.0 mmol/L [facility] Comment: Please note: ??Patients with WBC >100,000 may have falsely elevated Potassium levels. ??For accurate Potassium quantification in these patients send serum separator tube (gold top) for subsequent determinations. ??Contact the Clinical Chemistry Laboratory if there are any questions. Chloride 101 98 - 107 mmol/L [facility] Carbon Dioxide 24 22 - 31 mmol/L [facility] Anion Gap 12 5 - 15 mmol/L [facility] Calcium 8.6 8.5 - 10.5 mg/dL [facility] Est Glomerular Filtration Rate 99 >=60 mL/min/1. 73 m?? [facility] Comment: This patient's estimated GFR [...] Rojas MD CHEMISTRY ORDERABLES Performing Organization Address City/[facility]/ZIP Co de Phone Number [facility] [place] [place] [address] * Lavender Tube HOLD (08/06/2022 5:18 AM EST) Lavender Hold Sample in lab. [facility] Blood Venous Draw / Unknown 08/06/2022 5:18 AM EST 08/06/2022 5:33 AM EST Oma MARSHALL HEMATOLOGY ORDERABLE S Performing Organization Address City/[facility] Co de Phone Number [facility] [place] [place] [address] * Magnesium (08/06/2022 5:18 AM EST) Magnesium 0.69 0.69 - 1.07 mmol/L [facility] Blood 08/06/2022 5:18 AM EST 08/06/2022 5:33 AM EST Narrative Resulting Agency Comment Spec In Lab Antonio Rojas MD CHEMISTRY ORDERABLES Performing Organization Address City/[facility] Co de Phone Number [facility] [place] [place] [address] * (ABNORMAL) Basic Metabolic Panel (non-fasting) (08/06/2022 5:18 AM EST) Glucose 106 65 - 199 mg/dL [facility] Comment:Diabetes: >=200 mg/d L plus symptoms Blood Urea Nitrogen 10 8 - 18 mg/dL [facility] Creatinine 0.65(L) 0.70 - 1.20 mg/dL [facility] Sodium 139 135 - 145 mmol/L [facility] Potassium 3.3(L) 3.5 - 5.0 mmol/L [facility] Comment: Please note: ??Patients with WBC >100,000 may have falsely elevated Potassium levels. ??For accurate Potassium quantification in these patients send serum separator tube (gold top) for subsequent determinations. ??Contact the Clinical Chemistry Laboratory if there are any questions. Chloride 99 98 - 107 mmol/L [facility] Carbon Dioxide 26 22 - 31 mmol/L [facility] Anion Gap 14 5 - 15 mmol/L [facility] Calcium 8.9 8.5 - 10.5 mg/dL [facility] Est Glomerular Filtration Rate 100 >=60 mL/min/1. 73 m?? [facility] Comment: This patient's estimated GFR [...] In Lab Antonio Rojas MD CHEMISTRY ORDERABLES [facility] [place] [address] * UPPER GI ENDOSCOPY (08/05/2022 2:01 PM EST) Pathologist [facility] UPPER GI ENDOSCOPY [facility] Endoscopy Procedure Date: 08/05/2022 2:01 PM ? Patient Name: Katheryn Carranza ? Date of : 1960 ? Age: 61 ? Order #: [id number] ? Instrument Name: [id number] ? Procedure: ? Upper GI endoscopy Indications: [...] AM EST) Hold, Urine Sample in lab. [facility] Urine Urine / Unknown 08/05/2022 1 0:47 AM EST 08/05/2022 10:58 AM EST Angely Scruggs MD URINE ORDERABLES Performing Organization Address [facility] Co de Phone Number [facility] [place] [place] [address] * Urinalysis with reflex Culture (08/05/2022 10:47 AM EST) Glucose, Urine Dipstick Negative Negative mg/dL [facility] Protein, Urine Dipstick Negative Negative mg/dL [facility] Bilirubin, Urine Dipstick Negative Negative mg/dL [facility] Comment: Clinical correlation required for positive Urine Bilirubin results as false positive may occur with some drugs and drug related products. If a false positive is suspected a serum total bilirubin should be considered if clinically indicated. Urobilinogen, Urine Dipstick Normal Normal mg/dL [facility] pH, Urn (dipstick) 7.5 5.0 - 8.0 [facility] Blood, Urine Dipstick Negative Negative mg/dL [facility] Ketone, Urine Dipstick Negative Negative mg/dL [facility] Nitrite, Urine Dipstick Negative Negative [facility] Leukocytes, Urine Dipstick Negative Negative mcL [facility] Appearance, Urine Dipstick Clear Clear [facility] Specific [place] Urine Automated 1.011 1.005 - 1.030 [facility] Color, Urine Dipstick Yellow Yellow [facility] Reflex to Culture No [facility] Clean Catch Urine 08/05/2022 10:47 AM EST 08/05/2022 10:58 AM EST Narrative Resulting Agency Comment Spec In Lab Antonio Rojas MD URINE ORDERABLES Performing Organization Address City/[facility]/ZIP Co de Phone Number [facility] [place] [address] * XR Abdomen 1 view (Generic) (08/05/2022 [...] have questions please contact the health healthcare economics consultant that requested your imaging first. ? Electronically signed by: Reymundo Fischer MD, [facility] ([phone]), at 08/05/2022 3:21 AM Narrative 08/05/2022 3:21 [...] who have questions please contactthe health healthcare economics consultant that requested your imaging first. Electronically signed by: Reymundo Fischer MD, [facility]([phone]), at 08/05/2022 3:21 AM Antonio Rojas MD [...] have questions please contact the health healthcare economics consultant that requested your imaging first. ? Electronically signed by: Reymundo Fischer MD, [facility] ([phone]), at 08/05/2022 12:23 AM Narrative 08/05/2022 12:23 [...] Osseous Structures: Redemonstrated mild compression deformity of [id number] endplate. IMPRESSION Findings suggesting pyelonephritis of the [...] who have questions please contactthe health healthcare economics consultant that requested your imaging first. Electronically signed by: Reymundo Fischer MD, [facility]([phone]), at 08/05/2022 12:23 AM Antonio Rojas MD IMG CT ORDERABLES * (ABNORMAL) Hemoglobin A1c (08/04/2022 11:24 PM EST) Hemoglobin A1c 6.2(H) 4.3 - 5.6 % [facility] Comment: Reference Range: 4.3 - [...] Mellitus, Diabetes Care 2013; 36: Suppl. 1, K25-95 Estimated Average Glucose 130 mg/dL [facility] Comment: eAG equivalents for HbA1c [...] into estimated average glucose values. ??Diabetes Care 2008:31(8):0490-7233. Blood Venous Draw / Unknown 08/04/2022 11:24 PM EST 08/05/2022 9:39 AM EST Narrative Resulting Agency Comment Spec In Lab Oma MARSHALL CHEMISTRY ORDERABLES Performing Organization Address [facility] Co de Phone Number [facility] [place] [address] * (ABNORMAL) Amylase (08/04/2022 11:24 PM EST) Amylase 27(L) 28 - 100 unit/L [facility] Blood Venous Draw / Unknown 08/04/2022 11:24 PM EST 08/04/2022 11:30 PM EST Narrative Resulting Agency Comment Spec In Lab Angely Scruggs MD CHEMISTRY ORDERABLES Performing Organization Address [facility] Phone Number [facility] [place] [address] * Lipase (08/04/2022 11:24 PM EST) Lipase 12 0 - 60 unit/L [facility] Blood Venous Draw / Unknown 08/04/2022 11:24 PM EST 08/04/2022 11:30 PM EST Narrative Resulting Agency Comment Spec In Lab Angely Scruggs MD CHEMISTRY ORDERABLES Performing Organization Address [facility] de Phone Number [facility] [place] [address] * (ABNORMAL) Differential, Automated (08/04/2022 11:24 PM EST) Neutrophil % 68.0 % [facility] Neutrophil Absolute 6.86(H) 1.70 - 6.10 x10(3)/mc L [facility] Lymph % 24.6 % [facility] Lymphocytes Abs 2.5 0.9 - 3.2 x10(3)/mc L [facility] Monocyte % 6.1 % [facility] Monocyte Abs 0.6 0.3 - 0.9 x10(3)/ L [facility] Eos % 0.3 % [facility] Eosinophils Abs 0.0 0.0 - 0.4 x10(3)/mc L [facility] Basophil % 0.1 % [facility] Baso Absolute 0.0 0.0 - 0.1 x10(3)/ L [facility] Immature Gran % 0.90 % [facility] Comment: Immature granulocytes(IG's)percentage and absolute count will include metamyelocytes, myelocytes, and promyelocytes. Blood smears from CBCs yielding IG's will be scanned manually for concordance. If this scan disagrees with the automated IG or if promyelocytes are noted, a manual differential will be performed. Immature Gran Absolute 0.09(H) 0.00 - 0.04 x10(3)/ L [facility] Blood 08/04/2022 11:2 4 PM EST 08/04/2022 11:29 PM EST Narrative Resulting Agency Comment Spec In Lab Bubba Schroeder MD HEMATOLOGY ORDERABLE S Performing Organization Address City/State/[facility] Co de Phone Number [facility] [place] [place] [address] * (ABNORMAL) Hemogram (08/04/2022 11:24 PM EST) White Blood Cell 10.1(H) 4.0 - 9.5 x10(3)/mc L [facility] Red Blood Cell 4.22 4.00 - 5.21 x10(6)/mc L [facility] Hemoglobin 13.6 11.7 - 15.5 g/dL [facility] Hematocrit 39.1 35.7 - 45.8 % [facility] Mean Cell Volume 92.7 82.6 - 94.[address] [facility] Mean Cell Hemoglobin 32.2(H) 27.1 - 32.[address] [facility] Mean Cell Hemoglobin Concentration 34.8 31.7 - 35.0 g/dL [facility] Platelet 285 145 - 357 x10(3)/mc L [facility] RDW Standard Deviation 41.6 37.0 - 46.[address] [facility] RDW coefficient of variation 12.3 11.5 - 14.1 % [facility] Mean Platelet Volume 8.7 7.6 - 12.[address] [facility] NRBC% auto 0.0 % [facility] NRBC Absolute 0.000 0.000 - 0.000 x10(3)/mc L [facility] Blood 08/04/2022 11:2 4 PM EST 08/04/2022 11:29 PM EST Narrative Resulting Agency Comment Spec In Lab Bubba Schroeder MD HEMATOLOGY ORDERABLE S Performing Organization Address City/[facility] Co de Phone Number [facility] [place] [place] [address] * CMP w/fasting Glucose (08/04/2022 11:24 PM EST) Glucose Fasting 97 65 - 99 mg/dL [facility] Comment: ?Fasting* Glucose Interpretive Criteria [...] of Diabetes Mellitus, Position Statement from the [employer]. ??Diabetes Care, Volume 33, Supplement 1, Jun 2009 Blood Urea Nitrogen 10 8 - 18 mg/dL [facility] Creatinine 0.70 0.70 - 1.20 mg/dL [facility] Sodium 137 135 - 145 mmol/L [facility] Potassium 3.6 3.5 - 5.0 mmol/L [facility] Comment: Please note: ??Patients with WBC >100,000 may have falsely elevated Potassium levels. ??For accurate Potassium quantification in these patients send serum separator tube (gold top) for subsequent determinations. ??Contact the Clinical Chemistry Laboratory if there are any questions. Chloride 101 98 - 107 mmol/L [facility] Carbon Dioxide 24 22 - 31 mmol/L [facility] Anion Gap 12 5 - 15 mmol/L [facility] Calcium 9.2 8.5 - 10.5 mg/dL [facility] Protein, Total 6.4 6.1 - 8.0 g/dL [facility] Albumin 3.7 3.2 - 5.2 g/dL [facility] Aspartate Aminotransferase 13 0 - 30 unit/L [facility] Alanine Aminotransferase 22 0 - 30 unit/L [facility] Alkaline Phosphatase 73 35 - 105 unit/L [facility] Bilirubin, Total 0.3 0.2 - 1.3 mg/dL [facility] Est Glomerular Filtration Rate 98 >=60 mL/min/1. 73 m?? [facility] Comment: This patient's estimated GFR [...] In Lab Antonio Rojas MD CHEMISTRY ORDERABLES [facility] [place] [address] * Surgical Pathology Report (08/02/2022 7:39 PM EST) Final Diagnosis [id number] ? Location: L1WD; H119; A The signing pathologist has (i) examined the relevant preparation(s) for the specimen(s) and (ii) rendered or confirmed the diagnosis(es). . 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 Electronically signed by: ?David AKBAR, Rosaura Echeverria Verified: ??08/11/2022 9:33 ?? Pathologist Performed at: ??-[facility] Dept. of Pathology, [place] [address] Community Health Coordinator: Ernestina Valenzuela MD, FCAP, ??CLIA Certificate: [id number] DISCUSSION Definitive fallopian tube tissue was not [...] Fallopian Tube: Not grossly identified. Sections/Processi ng: Construction Site Crossing Guard sections in 22 cassettes as follows: ?A1-A2: Cyst wall with excrescences ?A3-A4: Construction Site Crossing Guard sections of fine papillary excrescences ?A5-A6: Construction Site Crossing Guard yellow, flat excrescences ?A7-A10: Construction Site Crossing Guard sections of the solid and cystic nodule, ?A11-A15: Construction Site Crossing Guard sections of the whorled surface nodule and ? adjacent cyst ?A16-A19: Additional cyst wall sections ?A20: Candidate left fallopian tube adhesed to nodule ?A21-A22: Construction Site Crossing Guard soft tissue adhesed to nodule ??j 08/11/2022 9:33 AM EST [facility] OVARIAN PART / Unknown 08/02/2022 7:39 PM EST 08/02/2022 7:39 PM EST Antonio Rojas MD PATHOLOGY/CYTOLOGY O LISA Performing Organization Address [facility]/ZIP Co de Phone Number [facility] [place] [place] [address] [facility] [place] [address] * Specimen to Pathology (08/02/2022 7:39 PM EST) AP Specimen 08/02/2022 7:39 PM EST 08/02/2022 7:[address] [facility] - 08/02/2022 7:39 PM EST Specimen requisition ordered. ??Separate Pathology report to follow Antonio Rojas MD PATHOLOGY/CYTOLOGY O LISA [facility] [place] [address] * Non-Automatic Stacker Final Report (08/02/2022 7:07 PM EST) Diagnosis Discussion [id number] ? Location: L1WD; H119; A The signing pathologist has (i) examined the relevant preparation(s) for the specimen(s) and (ii) rendered or confirmed the diagnosis(es). . ? Non-Automatic Stacker Final DIAGNOSIS Negative for Malignancy Electronically signed by: ?Miladys AKBAR, Mark Bailey Verified: ??08/11/2022 15:41 ??Pathologist Performed at: ??-[facility] Dept. of Pathology, [place] [address] Community Health Coordinator: Ernestina Valenzuela MD, FCAP, ??CLIA Certificate: [id number] DISCUSSION Pelvic wash: Mesothelial cells are present. [...] Cell Block 1. 08/11/2022 3:41 PM EST [facility] Pelvic Washing 08/02/2022 7: 07 PM EST 08/02/2022 7:07 PM EST Antonio Rojas MD PATHOLOGY/CYTOLOGY O RDERABLES [facility] [place] [address] [facility] [place] [address] * Cytopathology Non-Gynecological (08/02/2022 7:07 PM EST) AP Specimen 08/02/2022 7:07 PM EST 08/02/2022 7:[address] [facility] - 08/02/2022 7:07 PM EST Specimen requisition ordered. ??Separate Pathology report to follow Antonio Rojas MD PATHOLOGY/CYTOLOGY Tad GONZALEZ [facility] [place] [address] * MRI Thoracic Spine wwo Contrast (08/02/2022 [...] have questions please contact the health healthcare economics consultant that requested your imaging first. ? Electronically signed by: Devin Mario Do [facility] ??([phone]), at 08/02/2022 5:08 PM Narrative 08/02/2022 5:08 [...] the clinical situation (Reference- Jarvik Et Al, [id number]). Findings: (Prevalence in patients without low back [...] who have questions please contactthe health healthcare economics consultant that requested your imaging first. Antonio Rojas MD IMG MRI ORDERABLES * [...] have questions please contact the health healthcare economics consultant that requested your imaging first. ? Electronically signed by: Devin Mario Do, [facility] ??([phone]), at 08/02/2022 5:08 PM Narrative 08/02/2022 5:08 [...] the clinical situation (Reference- Jarvik Et Al, [id number]). Findings: (Prevalence in patients without low back [...] who have questions please contactthe health healthcare economics consultant that requested your imaging first. Oumou Villar MD IMG MRI ORDERABLES * [...] have questions please contact the health healthcare economics consultant that requested your imaging first. ? Electronically signed by: Angel Baker DO, [facility] ([phone]), at 08/02/2022 8:41 AM Narrative 08/02/2022 8:41 [...] pelvis was performed with intravenous contrast at [facility] on July 29, 2022. Helical CT images [...] similar prior examination provided for comparison. FINDINGS: [employer] Images: Noncontributory. CT OF THE CHEST: Lungs [...] suspicious lesions. Procedure Note Angel Baker, - 08/02/2022 EXAMINATION: * REQUEST FOR 2ND [...] and pelvis was performed withintravenous contrast at [facility] on July 29, 2022. Helical CT images of the chest, abdomen, and pelvis were obtainedfollowing administration of intravenous contrast. Per report, the patient [id number] mL Omnipaque 350 intravenous contrast. Oral contrast was not administered. Multiplanar reformats were performed in the sagittal and coronal planes. Maximum Intensity Projection (MIP) images were also reformatted. COMPARISON: There is no similar prior examination provided forcomparison. FINDINGS: [employer] Images: Noncontributory. CT OF THE CHEST: Lungs [...] who have questions please contactthe health healthcare economics consultant that requested your imaging first. Oumou Villar [...] have questions please contact the health healthcare economics consultant that requested your imaging first. ? Electronically signed by: Angel Rodriguez [facility] ([phone]), at 08/02/2022 8:25 AM Narrative 08/02/2022 8:25 [...] have questions please contact the health healthcare economics consultant that requested your imaging first. ? Electronically signed by: Sandra Henderson MD, [facility] ([phone]), at 08/27/2022 12:30 PM --------ORIGINAL REPORT -------- [...] have questions please contact the health healthcare economics consultant that requested your imaging first. ? Electronically signed by: Sandra Henderson MD, [facility] ([phone]), at 08/02/2022 10:18 AM Addendum by Sandra [...] have questions please contact the health healthcare economics consultant that requested your imaging first. ? Electronically signed by: Sandra Henderson MD, [facility] ([phone]), at 08/02/2022 10:18 AM Impressions 08/02/2022 10:18 [...] have questions please contact the health healthcare economics consultant that requested your imaging first. ? Electronically signed by: Sandra Henderson MD, [facility] ([phone]), at 08/02/2022 10:18 AM Narrative 08/02/2022 10:18 [...] measurements obtained were 13.7 x 11.5 by [id number] cm. The images do not show definite [...] who have questions please contactthe health healthcare economics consultant that requested your imaging first. Electronically signed by: Sandra Henderson MD, [facility]([phone]), at 08/02/2022 10:18 AM Oumou Villar MD IMG OUTSIDE INTERPRE TATION ORDERABLES * BLOOD GAS 2 VENOUS (08/01/2022 10:23 PM EST) pH, Venous 7.36 7.32 - 7.42 [facility] PCO2, Venous 47 41 - [address] [facility] PO2, Venous 31 25 - [address] [facility] Bicarbonate, Venous 25.9 mmol/L [facility] Base Excess, Venous 0.4 mmol/L [facility] Hgb Blood Gas 14.4 11.7 - 15.5 g/dL [facility] Oxyhemoglobin, Venous 58.3 % [facility] Carboxyhemoglob in, Venous 8.9 % [facility] Comment: Nonsmokers: 0.5-1.5% COHB Smokers: Variable, but usually less than 10% Toxic: 20-30% COHB Lethal: Greater than 60% COHB Methemoglobin, Venous 0.1 <=1.5 % [facility] Na Whole Blood 137 135 - 145 mmol/L [facility] K Whole Blood 4.0 3.5 - 5.0 mmol/L [facility] Comment: Please note: Patients with WBC >100,000 may have falsely elevated Potassium levels. Contact the Clinical Chemistry Laboratory if there are any questions. ICa Whole Blood 1.21 1.15 - 1.33 mmol/L [facility] Comment: Note: ??Total bilirubin higher than 20 mg/dL may lead to falsely low ionized calcium. CL Whole Blood 100 98 - 107 mmol/L [facility] Gluc Whole Bld 95 65 - 199 mg/dL [facility] Comment:Diabetes: >=200 mg/d L plus symptoms Lactate WB 1.6 0.5 - 2.2 mmol/L [facility] Blood Gas Source Venous [facility] Blood 08/01/2022 10:2 3 PM EST 08/01/2022 10:23 PM EST Oumou Villar MD POINT OF CARE TEST O RDERABLES Performing Organization Address [facility] Co de Phone Number [facility] [place] [place] [address] * CEA (08/01/2022 10:15 PM EST) Carcinoembryonic Antigen 2.2 <=3.8 ng/mL [facility] Comment: Reference range: ??(20-69 years): [...] Villar MD CHEMISTRY ORDERABLES Performing Organization Address City/[facility]/ZIP Co de Phone Number [facility] [place] [address] * Carbohydrate Antigen 19-9 (08/01/2022 10:15 PM EST) CA 19-9 7.1 <=35.0 u/ml [facility] Comment: This result was generated using a Greg Lynn immunoassay. ??Results obtained from other methods or manufacturers cannot be used interchangeably with this method. Blood Venous Draw / Unknown 08/01/2022 10:15 PM EST 08/01/2022 10:36 PM EST Narrative Resulting Agency Comment Spec In Lab Oumou Villar MD CHEMISTRY ORDERABLES Performing Organization Address [facility] Co de Phone Number [facility] [place] [place] [address] * (ABNORMAL) Cancer Antigen 125 (08/01/2022 10:15 PM EST) Pathologist [facility] CA 125 40.8(H) <=38.1 unit/mL [facility] Comment: CA 125 Reference Interval [...] Villar MD CHEMISTRY ORDERABLES Performing Organization Address [facility] Co de Phone Number [facility] [place] [address] * Type and Screen Validity (08/01/2022 10:15 PM EST) Pathologist [facility] T&S only valid at [facility] Comment:This Type and Screen result is only valid at the [facility] Blood 08/01/2022 10:1 5 PM EST 08/01/2022 10:28 PM EST Narrative Resulting Agency Comment Spec In Lab Nai Wright MD BLOOD BANK LAB ORDER GILBERTO Performing Organization Address [facility] Co de Phone Number [facility] [place] [address] * ABORH Recheck Status (08/01/2022 10:15 PM EST) ABORH Recheck Order Order Placed [facility] ABORH Type Recheck Not Performed [facility] Blood 08/01/2022 10:1 5 PM EST 08/01/2022 10:28 PM EST Narrative Resulting Agency Comment Spec In Lab Nai Wright MD BLOOD BANK LAB ORDER GILBERTO Performing Organization Address City/[facility]/[place] [address] * Gold Tube HOLD (08/01/2022 10:15 PM EST) Gold Hold Sample in lab. [facility] Blood Venous Draw / Unknown 08/01/2022 10:15 PM EST 08/01/2022 10:29 PM EST Nai Wright MD CHEMISTRY ORDERABLES Performing Organization Address City/[facility] Co de Phone Number [facility] [place] [place] [address] * (ABNORMAL) Differential, Automated (08/01/2022 10:15 PM EST) Neutrophil % 65.2 % [facility] Neutrophil Absolute 8.26(H) 1.70 - 6.10 x10(3)/mc L [facility] Lymph % 26.2 % [facility] Lymphocytes Abs 3.3(H) 0.9 - 3.2 x10(3)/mc L [facility] Monocyte % 6.9 % [facility] Monocyte Abs 0.9 0.3 - 0.9 x10(3)/mc L [facility] Eos % 0.6 % [facility] Eosinophils Abs 0.1 0.0 - 0.4 x10(3)/mc L [facility] Basophil % 0.1 % [facility] Baso Absolute 0.0 0.0 - 0.1 x10(3)/mc L [facility] Immature Gran % 1.00 % [facility] Comment: Immature granulocytes(IG's)percentage and absolute count will include metamyelocytes, myelocytes, and promyelocytes. Blood smears from CBCs yielding IG's will be scanned manually for concordance. If this scan disagrees with the automated IG or if promyelocytes are noted, a manual differential will be performed. Immature Gran Absolute 0.13(H) 0.00 - 0.04 x10(3)/mc L [facility] Blood 08/01/2022 10:1 5 PM EST 08/01/2022 10:29 PM EST Narrative Resulting Agency Comment Spec In Lab Nai Wright MD HEMATOLOGY ORDERABLE S [facility] [place] [address] * (ABNORMAL) Hemogram (08/01/2022 10:15 PM EST) White Blood Cell 12.6(H) 4.0 - 9.5 x10(3)/mc L [facility] Red Blood Cell 4.25 4.00 - 5.21 x10(6)/mc L [facility] Hemoglobin 13.7 11.7 - 15.5 g/dL [facility] Hematocrit 39.3 35.7 - 45.8 % [facility] Mean Cell Volume 92.5 82.6 - 94.[address] [facility] Mean Cell Hemoglobin 32.2(H) 27.1 - 32.[address] [facility] Mean Cell Hemoglobin Concentration 34.9 31.7 - 35.0 g/dL [facility] Platelet 286 145 - 357 x10(3)/mc L [facility] RDW Standard Deviation 43.4 37.0 - 46.[address] [facility] RDW coefficient of variation 12.6 11.5 - 14.1 % [facility] Mean Platelet Volume 9.2 7.6 - 12.[address] [facility] NRBC% auto 0.0 % [facility] NRBC Absolute 0.000 0.000 - 0.000 x10(3)/mc L [facility] Blood 08/01/2022 10:1 5 PM EST 08/01/2022 10:29 PM EST Narrative Resulting Agency Comment Spec In Lab Nai Wright MD HEMATOLOGY ORDERABLE S [facility] [place] [address] * Antibody screen (08/01/2022 10:15 PM EST) Ab Screen Interp Negative [facility] Expires at [id number] on: 08/04/2022 [facility] Blood 08/01/2022 10:1 5 PM EST 08/01/2022 10:28 PM EST Narrative Resulting Agency Comment Spec In Lab Nai Wright MD BLOOD BANK LAB ORDER GILBERTO Performing Organization Address City/[facility]/ZIP Co de Phone Number [facility] [place] [address] * ABO/Rh Typing (08/01/2022 10:15 PM EST) Pathologist [facility] [place] ABORH Type O Pos [facility] Blood 08/01/2022 10:1 5 PM EST 08/01/2022 10:28 PM EST Narrative Resulting Agency Comment Spec In Lab Nai Wright MD BLOOD BANK LAB ORDER GILBERTO Performing Organization Address City/[facility]/ZIP Co de Phone Number [facility] [place] [address] * Lipase (08/01/2022 10:15 PM EST) Pathologist [facility] [place] Lipase 11 0 - 60 unit/L [facility] Blood 08/01/2022 10:1 5 PM EST 08/01/2022 10:29 PM EST Narrative Resulting Agency Comment Spec In Lab Oumou Villar MD CHEMISTRY ORDERABLES Performing Organization Address City/[facility]/ZIP Co de Phone Number [facility] [place] [address] * Hepatic Function Panel (08/01/2022 10:15 PM EST) Pathologist [facility] [place] Protein, Total 7.2 6.1 - 8.0 g/dL [facility] Albumin 4.4 3.2 - 5.2 g/dL [facility] Aspartate Aminotransferase 13 0 - 30 unit/L [facility] Alanine Aminotransferase 23 0 - 30 unit/L [facility] Alkaline Phosphatase 84 35 - 105 unit/L [facility] Bilirubin, Total 0.2 0.2 - 1.3 mg/dL [facility] Bilirubin, Direct 0.1 0.0 - 0.3 mg/dL [facility] Blood 08/01/2022 10:1 5 PM EST 08/01/2022 10:29 PM EST Narrative Resulting Agency Comment Spec In Lab Oumou Villar MD CHEMISTRY ORDERABLES [facility] [place] [address] * Basic Metabolic Panel (non-fasting) (08/01/2022 10:15 PM EST) Glucose 93 65 - 199 mg/dL [facility] Comment:Diabetes: >=200 mg/d L plus symptoms Blood Urea Nitrogen 13 8 - 18 mg/dL [facility] Creatinine 0.78 0.70 - 1.20 mg/dL [facility] Sodium 136 135 - 145 mmol/L [facility] Potassium 4.1 3.5 - 5.0 mmol/L [facility] Comment: Please note: ??Patients with WBC >100,000 may have falsely elevated Potassium levels. ??For accurate Potassium quantification in these patients send serum separator tube (gold top) for subsequent determinations. ??Contact the Clinical Chemistry Laboratory if there are any questions. Chloride 101 98 - 107 mmol/L [facility] Carbon Dioxide 23 22 - 31 mmol/L [facility] Anion Gap 12 5 - 15 mmol/L [facility] Calcium 9.2 8.5 - 10.5 mg/dL [facility] Est Glomerular Filtration Rate 86 >=60 mL/min/1. 73 m?? [facility] Comment: This patient's estimated GFR [...] Villar MD CHEMISTRY ORDERABLES Performing Organization Address [facility] Co de Phone Number [facility] [place] [place] [address] * (ABNORMAL) Urinalysis with reflex Culture (08/01/2022 10:10 PM EST) Glucose, Urine Dipstick Negative Negative mg/dL [facility] Protein, Urine Dipstick Negative Negative mg/dL [facility] Bilirubin, Urine Dipstick Negative Negative mg/dL [facility] Comment: Clinical correlation required for positive Urine Bilirubin results as false positive may occur with some drugs and drug related products. If a false positive is suspected a serum total bilirubin should be considered if clinically indicated. Urobilinogen, Urine Dipstick Normal Normal mg/dL [facility] pH, Urn (dipstick) 6.5 5.0 - 8.0 [facility] Blood, Urine Dipstick Negative Negative mg/dL [facility] Ketone, Urine Dipstick Negative Negative mg/dL [facility] Nitrite, Urine Dipstick Negative Negative [facility] Leukocytes, Urine Dipstick Negative Negative mcL [facility] Appearance, Urine Dipstick Clear Clear [facility] Specific [place] Urine Automated 1.004(L) 1.005 - 1.030 [facility] Color, Urine Dipstick Yellow Yellow [facility] Reflex to Culture No [facility] Urine 08/01/2022 10:1 0 PM EST 08/01/2022 10:29 PM EST Narrative Resulting Agency Comment Spec In Lab Oumou Villar MD URINE ORDERABLES Performing Organization Address [facility]/ZIP Co de Phone Number [facility] [place] [address] * Film Library- Storage Only Ultrasound Study (07/30/2022 12:00 AM EST) Narrative Dicom, Auditing User - 08/01/2022 9:52 PM EST This exam is auto-finalizing. It's purpose is for storage only. Kayleigh Goldsmith [employer] FILM LIBRARY ORD ERABLES * Film Library- Storage Only CT Spine (07/29/2022 12:05 AM EST) Narrative Dicom, Auditing User - 08/01/2022 9:53 PM EST This exam is auto-finalizing. It's purpose is for storage only. Kayleigh Goldsmith [employer] FILM LIBRARY ORD ERABLES * Film Library- Storage Only CT Chest Abdomen Pelvis (07/29/2022 12:00 AM EST) Narrative Dicom, Auditing User - 08/01/2022 9:51 PM EST This exam is auto-finalizing. It's purpose is for storage only. Kayleigh Goldsmith [employer] FILM LIBRARY ORD ERABLES documented in this [...] EST 3 patches 07- Back Lower (Left) lidocaine-EPINEPHrine (1% - 1:100,000) injection ONCE PRN, Starting on 08/02/22 at 1911, Until 08/08/22 at 1739, Intra-Operative (Intra-Procedure), Routine Given 08/02/2022 7:11 PM EST 25 mLs 19- Surgical Site lisinopriL (Zestril) tablet 10 mg 10 mg, [...] patient tolerate oral medications or suppositories? No 05 (Given - Provider: Tosin Mcknight, OLIVIA) acetaminophen (Ofirmev) (1,000 mg/100 mL) infusion 1,000 [...] suppositories? No 1515 (Given - Provider: Herlinda Flores, OLIVIA)2127 (Given - Provider: Tosin Mcknight, OLIVIA) 0505 (Given - Provider: Tosin Mcknight, OLIVIA) acetaminophen (Tylenol) tablet 650 mg 650 mg, Oral, EVERY 6 HOURS, First dose on 08/07/22 at 0830, Until Discontinued, Maximum dose of acetaminophen is 4,000 mg from all sources in 24 hours. When ordered for pain, acetaminophen should be given even when other ordered pain medications are indicated. , Routine 0911 (Given - Provider: Jazlyn Hahn RN)1430 (Not Given - Provider: Jazlyn Hahn RN - Reason: Patient/family refused)2039 (Given - Provider: Hazel Tadeo, OLIVIA) 0408 (Given - Provider: Surendra Cassidy RN)0918 [...] giving, Routine 911 (Given - Provider: Jazlyn Hahn RN) 09 (Given - Provider: Keyla Trejo, OLIVIA) diphenhydrAMINE (Benadryl) (50 mg/mL) injection 25 mg (COMPLETED) 25 mg, Intravenous, ONCE, 1 dose, On Tue08/06/22 at 0415, Routine 326 (Given - Provider: Tosin Mcknight, OLIVIA) enoxaparin (Lovenox) (40 mg/0.4 mL) subcutaneous injection 40 mg 40 mg, Subcutaneous, NIGHTLY, First dose on Tue08/03/22 at 2100, Until Discontinued, Routine 2128 (Given - Provider: Tosin Mckinght, OLIVIA) 2041 (Given - Provider: Hazel Tadeo, OLIVIA) [...] 0445, Routine 1729 (Given - Provider: Herlinda Flores RN)2245 (Given - Provider: Tosin Mcknight, RN) 0448 (Given - Provider: Tosin Mcknight, OLIVIA) lidocaine (Lidoderm) 5% patch 3 patch [...] Discontinued, Routine 0919 (Given - Provider: Keyla Trejo, OLIVIA) magnesium sulfate 2 g in sterile water [...] Herlinda Flores RN)2135 (Given - Provider: Tosin Mcknight RN) 0242 (Given - Provider: Tosin Mcknight RN)0911 (Given - Provider: Jazlyn Hahn RN) metoprolol [...] Mcknight RN) 09 (Given - Provider: Jazlyn Hahn RN)2038 (Given - Provider: Hazel Tadeo, RN) 917 (Given - Provider: Keyla Trejo, RN) polyethylene glycoL (Miralax) packet 17 g [...] Jazlyn Hahn, OLIVIA - Reason: Patient/family refused) 917 (Given - Provider: Keyla Trejo, OLIVIA) potassium chloride 10 mEq in sterile water 100 mL infusion (COMPLETED) 10 mEq, Intravenous, EVERY 2 HOURS, 2 doses, First dose on Tue08/06/22 at 1000, Last dose on Tue08/06/22 at 1200, Administer over 60 Minutes, Warning Vesicant/Irritant Medication 1114 (New Bag - Provider: Herlinda Flores RN)1159 (Stopped - Provider: Herlinda Flores RN)1222 (New Bag - Provider: Herlinda Flores RN)1322 (Stopped - Provider: Herlinda Flores, OLIVIA) QUEtiapine (SEROquel) tablet 100 mg 100 mg, Oral, NIGHTLY, First dose on Tue08/06/22 at 2100, Until Discontinued, Please clamp ngt for 60min while giving, Routine 2131 (Given - Provider: Tosin Mcknight, OLIVIA) 2040 (Given - Provider: Hazel Tadeo, RN) sodium chloride 0.9 % (flush) (BD PosiFlush Normal Saline 0.9) flush 5 mL 5 mL, Intravenous, 2 TIMES DAILY, First dose on Tue08/02/22 at 2100, Until Discontinued, Routine 0851 (Given - Provider: Herlinda Flores RN)2134 (Given - Provider: Tosin Mcknight, OLIVIA) 914 (Given - Provider: Jazlyn Hahn, OLIVIA)2039 (Given - Provider: Hazel Tadeo, OLIVIA) 0927 (Given - Provider: Keyla Trejo, RN) sodium phosphates (FLEET) 19-7 gram/118 mL rectal enema 1 Bottle (COMPLETED) 1 Bottle, Rectal, ONCE, 1 dose, On Tue08/06/22 at 0815, Routine 1115 (Given - Provider: Herlinda Flores, RN) tiZANidine (Zanaflex) tablet 4 mg 4 mg, Oral, DAILY, First dose on 08/07/22 at 0930, Until Discontinued, Routine 0912 (Given - Provider: Jazlyn Hahn, RN) 0919 (Given - Provider: Keyla Trejo, RN) Continuous Medication Order 08/06/2022 08/07/2022 08/08/2022 dextrose 5% and sodium chloride 0.9% with potassium chloride 20 mEq infusion (CANCELED) 100 mL/hr, Intravenous, CONTINUOUS, Starting on Tue08/06/22 at 0815, Until 08/07/22 at 0828 0840 (New Bag - Provider: Herlinda Flores, OLIVIA) 0451 (New Bag - Provider: Tosin Mcknight, OLIVIA)0910 (Stopped - Provider: Jazlyn Hahn, OLIVIA) HYDROmorphone (Dilaudid) (1 mg/mL) in sodium chloride 0.9% 50 mL FLOOR SCRUBBER infusion syringe (CANCELED) Intravenous, FLOOR SCRUBBER ONLY, Starting on Teresa 08/05/22 at 1200, [...] Nebulization, EVERY 4 HOURS PRN, Starting on Tu08/03/22 at 1058, Until 08/08/22 at 1739, Wheezing, [...] in 60 minutes, give additional 5mg., Routine 918 (See Alternativ e - Provider: Keyla Trejo [...] in 60 minutes, give additional 5mg., Routine 918 (Given - Provid er: Keyla Trejo RN)1059 [...] Routine documented in this encounter Care Teams Nuclear Technician Relationship Specialty Start Date End Date Lena Womack, JACKIE PCP - General Family Medicine 08/02/22 documented as of this encounter
--- OUTSIDE RECORDS SUMMARY | 2024-02-12 18:08 | XMS_ITS | Encounter Summary ---
Author Organization [facility] [place] [address] Care Team Providers Care Manager Account Management Name Role Phone Lena Womack APRN Primary Care Provider [phone] Reason for Visit * Auth/Cert (Routine) Specialty Diagnoses / Procedures Referred By Contbyron t Referred To Contact Diagnoses Adnexal mass Antonio Rojas MD [facility] [place] [address] [facility] Referral ID Status Reason Start Date Expiration Date Visits Re quested Visits Authorized [id number] 1 1 Encounter Details Date Type Department Care Team (Late st Contact Info) Description 08/05/2022 2:19 PM EST Anesthesia [place] [address] Alma Leiva MD [facility] [place] [address] Julio Cesar Lora CRNA [facility] [place] [address] Anesthesia Record Procedure Summary Procedure Name Responsible Anesthesiologist Anesthesia Start Time Anesthesia Stop Time EGD, UPPER GI ENDOSCOPY (WRVU 2.09) (Trunk) Alma Leiva MD 08/05/22 1419 08/05/22 1455 Events Date Time Event Comment 08/05/2022 1419 AN Verify 1419 Start 1419 An Start Data 1421 Anesthesia Ready 1436 1455 an stop data 1455 Recovery or ICU Handoff Asuncion ent care was transferred to the destination unit staff after review of the patient's medical history, current anesthetic/surgical status and plan, according to the Provider Handoff Checklist. 1455 Stop Meds Name Total IV Lidocaine 100 mg Propofol INF 448.5 mg Dexmedetomidine 12 mcg Labetalol 5 mg Lactated Ringers 300 mL * Agents Name O2 Air N2O O2 Auxiliary Flowmeter 1 * Blood No blood administrations on file. Lines, Drains, and Airways Type Details Placement Removal Incision 08/02/22; 1834; lowe r quadrant; laparoscopic puncture 08/02/22 183 by Delaney Wiggins RN Incision 08/02/22; 1854; abdo men; midline 08/02/22 185 by Delaney Wiggins, RN (RETIRED) Peripheral IV Line - Single Lumen 08/02/22; 1804; metacarpal vein (top of hand), right; [id number] catheter system; Anatomical Landmarks; 18 gauge; removed per physician, catheter/device intact, no longer indicated; 08/08/22; 1507 08/02/22 1804 by Mery Murphy, SAMPLE PREP TECHNICIAN 08/08/22 1507 by Keyla Trejo RN Urethral Catheter 08/02/22; 1900; inse rted at this facility; drainage bag to dependent drainage; urethral catheter removed, tubing intact, per protocol/policy; 08/06/22; 1315 08/02/22 1900 by Grace Manzanares RN 08/06/22 1315 by Herlinda Flores RN NG/OG Tube 08/05/22; 0145; 18 F r; 58; right nostril; 08/07/22 08/05/22 0145 by Esther Leung RN 08/07/22 0000 by Surendra Cassidy RN documented in this encounter Social History [...] OR Notes * Anesthesia Postprocedure Evaluation - Alma Leiva MD - 08/05/2022 4:21 PM EST Department of Anesthesiology Post-procedure Note Patient: Katheryn Carranza Procedure Summary Date: 08/05/22 Room / Location: [facility] ENDO 3 / [facility] ENDOSCOPY Anesthesia Start: 1419 Anesthesia Stop: 1455 Procedure: EGD, UPPER GI ENDOSCOPY (Trunk) Diagnosis: (GOO) Surgeons: Donnie Obrien MD Responsible Provider: Alma Leiva MD Anesthesia Type: MAC ASA Status: 3 All Anesthesia Providers: Anesthesiologist: Alma Leiva MD SAMPLE PREP TECHNICIAN: Julio Cesar Lora CRNA Vitals Value Taken Time BP 175/88 08/05/22 1550 Temp Pulse Resp 18 08/05/22 1500 SpO2 91 % 08/05/22 1556 Pain Level 5 08/05/22 1500 Vitals shown include unvalidated device data. Patient Location: PACU/[facility] Level of Consciousness: Awake and Alert Pain Management: Satisfactory Analgesia PONV: None Cardiovascular Status: At Baseline Respiratory Status: At Baseline Postoperative Fluid Status: Intravascular EUvolemia Possible Anesthetic Complications: NONE apparent at time of evaluation Final Primary Anesthesia Type: MAC (The anesthetic type performed was the same as planned.) Comments: * Anesthesia Preprocedure Evaluation - Alma Leiva MD - 08/05/2022 2:33 PM EST Pre-Anesthesia Evaluation for: Katheryn Carranza a 61 y.o. female. Procedure(s): EGD, UPPER GI ENDOSCOPY Patient Active Problem List Diagnosis Date Noted ??? Moderate opioid use disorder 08/03/2022 ??? Thoracic compression fracture, sequela 08/03/2022 ??? Herniation of lumbar intervertebral disc with radiculopathy 08/03/2022 ??? *Adnexal mass 08/02/2022 ??? Primary osteoarthritis [...] MAMMOPLASTY, EVA performed by DEMETRA SOMMERS at [facility] MAIN OR ??? PRO LAP, DIAGNOSTIC ABDOMEN Left 08/02/2022 LAPAROSCOPY, DIAGNOSTIC, ABDOMEN (WRVU 5.14) performed by Antonio Rojas MD at [facility] MAIN OR ??? PRO REMOVAL OF OVARY/TUBE(S) Left 08/02/2022 @SALPINGO-OOPHORECTOMY, UNILATERAL OR EVA (WRVU 12.16) performed by Antonio Rojas MD at [facility] MAIN OR Social History Tobacco Use ??? Smoking status: Every Day Packs/day: 0.25 Years: 35.00 Pack years: 8.75 Types: Cigarettes ??? Smokeless tobacco: Never Substance Use Topics ??? Alcohol use: Not Currently Comment: 1-2x a year Social History Substance and Sexual Activity Drug Use Yes ??? Types: Marijuana Comment: marijuana use (not medical marijuana), denies h/o drug abuse Allergies Allergen Reactions ??? Allergenic Extracts Pollen ??? Tramadol Low potassium ??? Zoloft [Sertraline] Nausea And Vomiting Medications: MAR and/or home medications have been reviewed. Physical Exam: Preprocedure Vitals Current as of 08/05/22 1419 BP: 187/98 Pulse: 72 Resp: 16 SpO2: 94 Temp: 36.6 ??C (97.9 ??F) Height: 165.1 cm (5' 5) (08/01/22) Weight: 97.5 kg (215 lb) (08/01/22) BMI: 35.77 IBW: 57 kg (125 lb 10.6 oz) Last edited 08/05/22 1332 by BP Currently displaying vitals information from multiple entries within 180 minutes of most recent vitals. Airway Assessment: Mallampati: II TM distance: >3 FB Neck ROM: full Cardiovascular Assessment: Rhythm: regular Rate: normal system normal Pulmonary Assessment: unlabored breathing Dental Assessment: Misc Assessment: Patient is wearing No contact(s). IV access: Peripheral line Last Filed Perioperative Cognitive Screening None Anesthesia Plan: ASA 3 MAC, with a(n) intravenous induction 61 yo female with gastric outlet obstruction here for EGD (NGT in place) Med hx sig jail opiate use disorder, HTN, tobacco use, [place] MAC;PIV Region - Other Informed Consent: Anesthetic plan and risks discussed with patient. Plan discussed with SAMPLE PREP TECHNICIAN. Anesthesia Screening documented in this encounter Plan of Treatment Upcoming Encounters Date Type Department Care Team (Late st Contact Info) Description 03/07/2024 10:00 AM EDT Appointment XRay at [address] [place] [address] Tien Zurita MD [facility] [place] [address] 03/07/2024 10:40 AM EDT Office Visit Neurosurgery at [facility] [place] [phone] Angel Hankins PA [facility] [place] [address] documented as of this encounter Visit Diagnoses Not on filedocumented in this encounter Administered Medications Inactive Administered Medications - up to 3 most recent administrations Medication Order MAR Action Action Date Dose Rate Site dexmedeTOMIDine (Precedex) (4 mcg/mL) bolus injection (Anesthsia) Intravenous, PRN, Starting on Teresa 08/05/22 at 1432, Until Teresa 3 at 1455, Anesthesia Intra-op, Routine Given 08/05/2022 2:35 PM EST 4 mcg Given 08/05/2022 2:32 PM EST 8 mcg labetaloL (Normodyne) (5 mg/mL) multi-dose injection Intravenous, PRN, Starting on Teresa 08/05/22 at 1435, Until Teresa 3 at 1455, Anesthesia Intra-op, Routine Given 08/05/2022 2:35 PM EST 5 mg lactated ringers infusion Intravenous, CONTINUOUS PRN, Starting on Teresa 08/05/22 at 1419, Until Teresa 08/05/22 at 1455, Anesthesia Intra-op New Bag 08/05/2022 2:19 PM EST lidocaine (pf) (Xylocaine) (20 mg/mL) 2% injection syringe Intravenous, PRN, Starting on Teresa 08/05/22 at 1425, Until Teresa 08/05/22 at 1455, Anesthesia Intra-op, Routine Given 08/05/2022 2:25 PM EST 100 mg propofoL (Diprivan) (10 mg/mL) infusion Intravenous, CONTINUOUS PRN, Starting on Teresa 08/05/22 at 1425, Until Teresa 3 at 1455, Anesthesia Intra-op, Routine New Bag 08/05/2022 2:25 PM EST 200 mcg/kg/min 117 mL/hr documented in this encounter Care Teams Manager Account Management Relationship Specialty Start Date End Date Lena Womack APRN PCP - General Family Medicine 08/02/22 documented as of this encounter
--- OUTSIDE RECORDS SUMMARY | 2024-02-12 18:08 | XMS_ITS | Encounter Summary ---
[place] [address] Care Team Providers Care Billing Supervisor Name Role Phone Lena Womack APRN Primary Care Provider [phone] Reason for Referral * Consultation (Urgent) - Closed Specialty Diagnoses / Procedures Referred By Cosmo cortez Referred To Contact Gynecology Oncology Diagnoses Adnexal mass Abdominal distension Sherie Alonzo DO [address] [place] [address] [place] [address] [facility] Receipt Poster [address] [place] [phone] Referral ID Status Reason Start Date Expiration Date V isits Requested Visits Authorized [id number] Closed Consult, Test & Treat PCP Updated and/or Approved 08/02/2022 08/02/2023 6 6 Encounter Details Date Type Department Care Team (Late st Contact Info) Description 08/02/2022 Transcribe Orders eDH Incoming Referrals [phone] Sherie Alonzo DO [address] [place] [address] [address] [place] [id number] Adnexal mass; Abdominal distension Social History Tobacco Use Types Packs/Day Years [...] 03/07/2024 10:00 AM EDT Appointment XRay at [address] [place] [address] Tien Zurita MD [facility] [place] [address] 03/07/2024 10:40 AM EDT Office Visit Neurosurgery at [facility] [place] [phone] Angel Hankins PA [facility] [address] Scheduled Referrals Name Type Priority Associated Diagnoses Order Schedule Referral to Gynecologic Oncology Outpatient Referral Urgent Adnexal mass Abdominal distension Ordered: 08/02/2022 documented as of this encounter Visit Diagnoses Diagnosis Adnexal mass Other specified symptom associated with female genital organs Abdominal distension Flatulence, eructation, and gas pain documented in this encounter Care Teams Billing Supervisor Relationship Specialty Start Date End Date Lena Womack APRN PCP - General Family Medicine 08/02/22 documented as of this encounter
--- OUTSIDE RECORDS SUMMARY | 2024-02-12 18:09 | XMS_ITS | Encounter Summary ---
[place] [address] Care Team Providers Care Africana Studies Professor Name Role Phone Unavailable Primary Care Provider Unavailabl e Encounter Details Date Type Department Care Team (Late Contact Info) Description 11/26/2015 Telephone [place] [address] Monica Schafer MD [facility] [address] Social History Tobacco Use Types Packs/Day Years [...] encounter Miscellaneous Notes * Telephone Encounter - Monica Schafer MD - 11/26/2015 12:06 PM EDT Discussed benign result. Pt aware. rz documented in this encounter Plan of Treatment Upcoming Encounters Date Type Department Care Team (Late st Contact Info) Description 03/07/2024 10:00 AM EDT Appointment XRay at [address] [place] [address] Tien Zurita MD [facility] [place] [address] 03/07/2024 10:40 AM EDT Office Visit Neurosurgery at [facility] [place] [phone] Angel Hankins PA [facility] [place] [address] documented as of this encounter Visit Diagnoses Not on filedocumented in this encounter
--- OUTSIDE RECORDS SUMMARY | 2024-02-12 18:09 | XMS_ITS | Encounter Summary ---
Author Organization [facility] Address [facility] [place] [address] Care Team Providers Care Petroleum Plant Operator Name Role Phone Unavailable Primary Care Provider Unavailabl e Reason for Visit * Reason Comments Botox Injection * High Dollar Medication (Routine) - Closed Specialty Diagnoses / Procedures Referred By Contac t Referred To Contact Neurology Diagnoses Chronic migraine without aura, not intractable, without status migrainosus Procedures CHEMODENERVATION, MEDICAL TC ONABOTULINUMTOXINA, 1 UNIT, INJECTION Botox Daniela Monsalve MD [facility] [place] [address] Referral ID Status Reason Start Date Expiration Date V isits Requested Visits Authorized [id number] Closed Evaluate and Treat 06/30/2015 06/30/2016 6 6 Encounter Details Date Type Department Care Team (Late st Contact Info) Description 12/23/2015 10:10 AM EDT Office [place] [address] Daniela Monsalve MD [facility] [place] [address] Migraine without aura and without status migrainosus, not intractable Social History Tobacco Use Types Packs/Day Years [...] Sign Reading Time Taken Comments Blood Pressure 123/85 12/23/2015 10:09 AM EDT Pulse 92 12/23/2015 10:09 AM EDT Temperature - - Respiratory Rate - - Oxygen Saturation - - Inhaled Oxygen Concentration - - Weight 81.6 kg (180 lb) 12/23/2015 10:09 AM EDT reported Height 166.4 cm (5' 5.5) 12/23/2015 10:09 AM ED T reported Body Mass Index 29.5 12/23/2015 10:09 AM EDT documented in this encounter Procedure Notes * Daniela Monsalve MD - 12/23/2015 10:10 AM EDTAssociated Order(s): CHEMODENERVATION, MEDICAL Neurology Procedure note Date: 12/23/2015 Patient: Katheryn Carranza : 1960 Procedure: Botox injections (PREEMPT protocol) Indications: Chronic Migraine without aura Date Procedure MIDAS 04/30/2015 Botox # 1 60, 66/90 CASTELLANOS days, 6/10 CASTELLANOS intensity 07/15/2015 Botox # 2 18, 19/90 CASTELLANOS days, 7/10 CASTELLANOS intensity 10/08/2015 Botox # 3 24, 19/90 CASTELLANOS days, 5/10 CASTELLANOS intensity 12/23/2015 Botox # 4 64, 28/90 CASTELLANOS days, 5/10 CASTELLANOS intensity Patient feels that this is still working very well for her Risk and benefits were explained to the patient. Written consent was obtained - 12/23/2015 Time out was preformed OnabotulinumtoxinA was reconstituted with 0.9% NaCl to create a dilution of 5 units per 0.1mL. Each injection site was sterilized with 70% isopropyl alcohol. Injections were administered with a 30 gauge, 1/2 needle. Injections administered as follows and performed bilaterally with injections split equally except for procerus: 20 units divided between 4 sites in the frontalis muscle, 10 units divided between 2 sites in the print project manager muscles, 5 units into 1 site in the procerus muscle, 40 units divided between 8 sites in the temporalis muscles, 30 units divided between 6 sites in the suboccipital region, 20 units divided between 4 sites in the cervical paraspinal musculature, and 30 units divided between 6 sites in the trapezii. Additional 30 units administered 15 units over 3 sites in the left trapezius 15 units over 3 sites in the right trapezius Total units used= 185. Total injection sites=37. Patient was injected with 185 units and 15 units were wasted/disgarded The patient tolerated the procedure without any immediate complications. Daniela Monsalve MD [facility] Neurology Migraine Disability Assessment # of days in the past 3 months 1. Missed work / school because of CASTELLANOS 0 2. Productivity at work / school reduced by > half because of CASTELLANOS (do not count days from Q.1) 0 3. Did not do housework because of CASTELLANOS 28 4. Productivity in household work reduced by > half because of CASTELLANOS (do not count days from Q.3) 36 5. Missed family / social / leisure activities because of ACSTELLANOS 0 Total 64 MIDAS grade (use total of Q1 to 5) I: 0-5, little to no disability II: 6-10, mild disability III: 11-20, moderate disability IV: 21+, severe disability A. # of days in the last 3 months with a CASTELLANOS (count each day if CASTELLANOS lasted > 1 day) 28 B. Average CASTELLANOS intensity (0-10) 5 documented in this encounter Plan of Treatment Upcoming Encounters Date Type Department Care Team (Late st Contact Info) Description 03/07/2024 10:00 AM EDT Appointment XRay at [address] [place] [address] Tien Zurita MD [facility] [place] [address] 03/07/2024 10:40 AM EDT Office Visit Neurosurgery at [facility] [place] [address] Angel Hankins PA [facility] [place] [place] [address] documented as of this encounter Procedures Procedure Name Priority Date/Time Associated Diagnosis Comments CHEMODENERVATION, MEDICAL Routine 12/23/2015 10:53 AM EDT documented in this encounter Results * Chemodenervation, medical (12/23/2015 10:53 AM EDT) Narrative Daniela Monsalve MD - 12/23/2015 10:53 AM EDT Daniela Monsalve MD ? 12/23/2015 10:53 AM Neurology Procedure note Date: 12/23/2015 Patient: Katheryn Carranza : ??1960 Procedure: Botox injections (PREEMPT protocol) Indications: Chronic Migraine without aura Date ??Procedure ?? MIDAS 04/30/2015 ??Botox # 1 ?? 60, 66/90 CASTELLANOS days, 6/10 CASTELLANOS intensity ?? 07/15/2015 ??Botox # 2 ??18, 19/90 CASTELLANOS days, 7/10 CASTELLANOS intensity ?? 10/08/2015 ??Botox # 3 ??24, 19/90 CASTELLANOS days, 5/10 CASTELLANOS intensity ?? 12/23/2015 ??Botox # 4 ?? 64, 28/90 CASTELLANOS days, 5/10 CASTELLANOS intensity ?? Patient feels that this is still working very well for her Risk and benefits were explained to the patient. Written consent was obtained - 12/23/2015 Time out was preformed OnabotulinumtoxinA was reconstituted with 0.9% NaCl to create a dilution of 5 units per 0.1mL. Each injection site was sterilized with 70% isopropyl alcohol. Injections were administered with a 30 gauge, 1/2 needle. Injections administered as follows and performed bilaterally with injections split equally except for procerus: 20 units divided between 4 sites in the frontalis muscle, 10 units divided between 2 sites in the print project manager muscles, 5 units into 1 site in the procerus muscle, 40 units divided between 8 sites in the temporalis muscles, 30 units divided between 6 sites in the suboccipital region, 20 units divided between 4 sites in the cervical paraspinal musculature, and 30 units divided between 6 sites in the trapezii. Additional 30 units administered 15 units over 3 sites in the left trapezius 15 units over 3 sites in the right trapezius Total units used= 185. Total injection sites=37. Patient was injected with 185 units and 15 units were wasted/disgarded The patient tolerated the procedure without any immediate complications. Daniela Monsalve MD [facility] Neurology Migraine Disability Assessment # of days in the past 3 months 1. Missed work / school because of CASTELLANOS 0 2. Productivity at work / school reduced by > half because of CASTELLANOS (do not count days from Q.1) 0 3. Did not do housework because of ACSTELLANOS 28 4. Productivity in household work reduced by > half because of CASTELLANOS (do not count days from Q.3) 36 5. Missed family / social / leisure activities because of CASTELLANOS 0 Total 64 MIDAS grade (use total of Q1 to 5) I: 0-5, little to no disability II: 6-10, mild disability III: 11-20, moderate disability IV: 21+, severe disability A. # of days in the last 3 months with a CASTELLANOS (count each day if CASTELLANOS lasted > 1 day) 28 B. Average CASTELLANOS intensity (0-10) 5 Daniela Monsalve MD PROCEDURE/MINOR SURG ICAL ORDERABLES documented in this encounter Visit Diagnoses Diagnosis Migraine without aura and without status migrainosus, not intractable Migraine without aura, without mention of intractable migraine without mention of status migrainosus documented in this encounter Administered Medications Inactive Administered Medications - up to 3 most recent administrations Medication Order MAR Action Action Date Dose Rate Site botulinum toxin type A (BOTOX) injection 200 Units 200 Units, Intramuscular, ONCE, 1 dose, On Tue12/23/15 at 1100, Routine Given 12/23/2015 10:54 AM EDT 200 Units documented in this encounter
--- OUTSIDE RECORDS SUMMARY | 2024-02-12 18:09 | XMS_ITS | Encounter Summary ---
Author Organization [facility] [place] [place] [address] Care Team Providers Care Line Staker Name Role Phone Unavailable Primary Care Provider Unavailabl e Encounter Details Date Type Department Care Team (Late st Contact Info) Description 04/07/2016 [place] [address] Daniela Monsalve MD [facility] [place] [address] Social History Tobacco Use Types Packs/Day Years [...] Miscellaneous Notes * Telephone Encounter - Rosaura Traore RN - 04/07/2016 4:02 PM EDT Called pharmacy and confirmed patient just needs naproxen sodium 550 mg * Telephone Encounter - Uriel Jorge - 04/07/2016 3:30 PM EDT Caller: Zenia from [employer] in [place] If not Pt / Relation to pt: Caller Contact Number: [phone] Best time to reach pt back: Reason for call: Zenia from [employer] called in regards to the naproxen prescription. Zenia statedthat the DS version is not covered by the patient's insurance and asked if the regular release is ok to dispense. She requested a call to advise. Before 2:30pm - Informed caller that nurse will call back by the end of the day After 230 pm - Informed caller that if the nurse does not call back by the end of the day they willbe called tomorrow AM - Best number for tomorrow am: documented in this encounter Plan of Treatment Upcoming Encounters Date Type Department Care Team (Late st Contact Info) Description 03/07/2024 10:00 AM EDT Appointment XRay at [address] [place] [address] Tien Zurita MD [facility] [place] [address] 03/07/2024 10:40 AM EDT Office [place] [address] Angel Hankins PA [facility] [place] [address] documented as of this encounter Visit Diagnoses Not on filedocumented in this encounter
--- OUTSIDE RECORDS SUMMARY | 2024-02-12 18:09 | XMS_ITS | Encounter Summary ---
Author Organization [facility] [place] [address] Care Team Providers Care Muck Miner Name Role Phone Unavailable Primary Care Provider Unavailabl e Reason for Visit * Reason Comments Bilateral Knee Pain Encounter Details Date Type Department Care Team (Latest Contact Info) Description 07/31/2015 1:00 PM EST Office [place] [address] [facility] [place] [address] Primary osteoarthritis of both knees (Primary Dx); Knee pain, bilateral; Osteoarthritis of patellofemoral joint Social History Tobacco Use Types Packs/Day Years Used Date Smoking Tobacco: Every Day Cigarettes 0.3 35 Smokeless Tobacco: Never Tobacco Cessation:Ready to Q uit: Yes; Counseling Given: No Comments:gona quit someday Alcohol Use Standard Drinks/Week Comments No 0 (1 standard drink = 0.6 oz pur e alcohol) denies h/o ETOH abuse Sex and Gender Information Value Date Recorded Sex Assigned at Not on file Gender Identity Not on file Sexual Orientation Not on file documented as of this encounter Last Filed Vital Signs Vital Sign Reading Time Taken Comments Blood Pressure 111/75 07/31/2015 1:11 PM EST Pulse 82 07/31/2015 1:11 PM EST Temperature - - Respiratory Rate - - Oxygen Saturation - - Inhaled Oxygen Concentration - - Weight 79.4 kg (175 lb) 07/31/2015 1:11 PM EST v erbal Height 166.4 cm (5' 5.5) 07/31/2015 1:11 PM EST verbal Body Mass Index 28.68 07/31/2015 1:11 PM EST documented in this encounter Progress Notes * Cori Patrick, PROFESSIONAL SKATEBOARDER - 07/31/2015 1:07 PM EST Arthroplasty History/Previous Knee Surgery: 1. None Chief Complaint: Both knee symptomatic OA. I.D.: Katheryn Carranza is a 54 y.o. year old female who is here to discuss ongoing both knee pain with known tricompartmental OA primarily of the PF joint and medical joint. She has done relatively well withnon-operative treatment for her knees including PT, Oral NSAID's and cortisone injections. It has been greater than 3 months since her most recent injections. No interval falls injuries or infections. Her pain at present time is mild. No mechanical complaints, swelling or instability. No numbness or tingling. Other than chronic headaches with Botox use, her chronic medical illnesses are otherwisestable and she's here for planned follow-up appointment. ROS: Denies fever, chills, nausea, vomiting, vision change, shortness of breath, chest pain, visionchanges, headaches, bowel or bladder problem, ear, nose, sinus problem, neuro or psychiatric, or endocrine disorder not addressed above. Patient's medications, allergies, past medical, surgical, social and family histories were reviewedand updated as appropriate. VITALS: BP Readings from Last 1 Encounters: 07/15/15 126/92 Pulse Readings from Last 1 Encounters: 07/15/15 84 There is no weight on file to calculate BMI. PHYSICAL EXAM: General: This is a very pleasant 54-year-old female in no acute distress she is alert and oriented ??3 her affect is bright and appropriate. . Orthopedic both knee exam: Arrives to clinic with positional changes brisk. Gait is non-antalgic. No assistive devices. Both knee with varus alignment. SLR capability is strong with no extension lag noted. EHL/FHL 5/5. Both knees painful at the PF joint and medial joint line. Both knee ROM: 0?? extension to approximately 120degrees of flexion. No change in varus alignment. Both knees are stable to valgus varus stress. Both feet are sensate and well perfused, DP and PT 2+ to palpation. Sensation intact to 1st webspace, medial and lateral sole and dorsum. Imaging: No new images. ASSESSMENT: Ms. Carranza is a 54 y.o. year old female with symptomatic both knee moderate patellofemoral and medial compartment OA. She continues to do relatively well with conservative TX. She would like to continue with non- operative management with repeat cortisone injections. It has been greater than 3 months since her most recent injections. See procedures below. Continue with her HEP, Oral Aleve PRN and Smoking cessation advised. At this time, We can follow her progress on a PRN basis. Pt agrees, questions solicited/answered, will return as scheduled and as needed for concerns or questions. Pt understands they may also call us prn for above. Procedure #1: Right knee intra-articular cortisone injection: Prior to beginning conversation was held regarding the risks and benefits of cortisone injection. Atimeout was held confirming the correct side and medication. After which using appropriate sterile technique, approximately 4 mL 1% lidocaine plain were used anesthetize the skin. This was followed by injection of 4 ml of quarter percent Marcaine plain, and 40 mg of Kenalog. The patient tolerated this procedure well. Procedure #2: LEFT knee intra-articular cortisone injection: Prior to beginning conversation was held regarding the risks and benefits of cortisone injection. Atimeout was held confirming the correct side and medication. After which using appropriate sterile technique, approximately 4 mL 1% lidocaine plain were used anesthetize the skin. This was followed by injection of 4 ml of quarter percent Marcaine plain, and 40 mg of Kenalog. The patient tolerated this procedure well. documented in this encounter Plan of Treatment Upcoming Encounters Date Type Department Care Team (Late st Contact Info) Description 03/07/2024 10:00 AM EDT Appointment XRay at [address] [place] [address] [facility] [place] [address] 03/07/2024 10:40 AM EDT Office [place] [address] [facility] [address] documented as of this encounter Visit Diagnoses Diagnosis Primary osteoarthritis of both knees- Primary Primary localized osteoarthrosis, lower leg Knee pain, bilateral Pain in joint, lower leg Osteoarthritis of patellofemoral joint Osteoarthrosis, unspecified whether generalized or localized, lower leg documented in this encounter Administered Medications Inactive Administered Medications - up to 3 most recent administrations Medication Order MAR Action Action Date Dose Rate Site BUpivacaine (PF) (MARCAINE) 0.25 % (2.5 mg/mL) injection 12.5 mg 12.5 mg, Intra-articular, ONCE, 1 dose, On Teresa 07/31/15 at 1345, Routine Given 07/31/2015 1:36 PM EST 12.5 mg lidocaine (XYLOCAINE) 10 mg/mL (1 %) injection 60 mg 60 mg, Intra-articular, ONCE, 1 dose, On Teresa 07/31/15 at 1345, Routine Given 07/31/2015 1:36 PM EST 60 mg triamcinolone acetonide (KENALOG-40) injection 40 mg 40 mg, Intra-articular, ONCE, 1 dose, On Teresa 07/31/15 at 1345, Routine Given 07/31/2015 1:35 PM EST 40 mg documented in this encounter
--- OUTSIDE RECORDS SUMMARY | 2024-02-12 18:09 | XMS_ITS | Encounter Summary ---
Author Organization [facility] [place] [address] Care Team Providers Care Lathe Operator Contact Lens Name Role Phone Sailaja Ross APRN Primary Care Provider [phone] Encounter Details Date Type Department Care Team (Late st Contact Info) Description 07/29/2022 Ancillary Procedure [place] [address] Social History Tobacco Use Types [...] 10:00 AM EDT Appointment XRay at [address] [place] [address] Tien Zurita MD [facility] [place] [address] 03/07/2024 10:40 AM EDT Office Visit Neurosurgery at [facility] [place] [address] Angel Hankins PA [facility] [place] [address] documented as of this encounter Procedures Procedure Name Priority Date/Time Associated Diagnosis Comments FILM LIBRARY STORAGE ONLY CT CHEST ABDOMEN PELVIS STAT 07/29/2022 12:00 AM EST documented in this encounter Results * Film Library- Storage Only CT Chest Abdomen Pelvis (07/29/2022 12:00 AM EST) Narrative Dicom, Auditing User - 08/01/2022 9:51 PM EST This exam is auto-finalizing. It's purpose is for storage only. Kayleigh CHATTERJEE FILM LIBRARY ORD ERABLES documented in this encounter Visit Diagnoses Not on filedocumented in this encounter Care Teams Lathe Operator Contact Lens Relationship Specialty Start Date End Date Sailaja Ross APRN PCP - General Family Medicine 01/24/17 07/31/22 documented as of this encounter
--- OUTSIDE RECORDS SUMMARY | 2024-02-12 18:09 | XMS_ITS | Encounter Summary ---
Author Organization [facility] Address [facility] [place] [address] Care Team Providers Care Fox Raiser Name Role Phone Unavailable Primary Care Provider Unavailabl e Encounter Details Date Type Department Care Team (Latest Contact Info) Description 02/27/2015 12:07 PM EDT - 02/27/2015 11:59 PM EDT Hospital Encounter [place] [address] Daniela Monsalve MD [facility] [place] [address] Carpal tunnel syndrome, bilateral Discharge Disposition: Home Social History Tobacco Use Types Packs/Day Years Used Date Smoking Tobacco: Every Day Cigarettes 0.3 35 Smokeless Tobacco: Never Comments:gona quit someday Alcohol Use Standard Drinks/Week [...] Sig Dispensed Refills Start Date End Date gabapentin (NEURONTIN) 300 mg Capsule Take 600 [...] Tablet Take 100 mg by mouth nightly. naproxen sodium (ANAPROX DS) 550 mg Tablet Take 1 tablet by mouth 2 times daily as needed (Mild to Moderate Headache). Can be taken with or without Vistaril 60 tablet 12 02/24/2015 03/29/2016 dihydroergotamine (MIGRANAL) 0.5 mg/pump act. (4 mg/mL) Howes, Non-Aerosol Prime the pump 4 times, Place head down (usually in a sitting position, head between legs), spray one spray per nostril, while holding the opposite nostril closed, wait 15 minutes and the repeat (total of 4 sprays should be delivered - 2 per nostril) 8 mL 12 02/24/2015 03/29/2016 cyclobenzaprine (FLEXERIL) 10 mg tablet Take 10 mg by mouth 3 times daily as needed. 12/01/2022 pantoprazole (PROTONIX) 40 mg tablet Take 40 mg by mouth daily. 08/08/2022 documented as of this encounter Plan of Treatment Upcoming Encounters Date Type Department Care Team (Late st Contact Info) Description 03/07/2024 10:00 AM EDT Appointment XRay at [address] [place] [address] Tien Zurita MD [facility] [place] [address] 03/07/2024 10:40 AM EDT Office Visit Neurosurgery at [facility] [place] [address] Angel Hankins PA [facility] [place] [address] documented as of this encounter Procedures Procedure Name Priority Date/Time Associated Diagnosis Comments TSH Routine 02/27/2015 12:26 PM EDT Carpal tunnel syndrome, bilateral documented in this encounter Results * TSH (02/27/2015 12:26 PM EDT) Thyroid Stimulating Hormone 2.20 0.27 - 4.20 mcIU/mL NILTONMARCOS COHENDONALDROD Blood specimen (specimen) 02/27/2015 12:26 PM EDT 02/27/2015 12:40 PM EDT Narrative Resulting Agency Comment Spec In Lab Daniela Monsalve MD CHEMISTRY ORDERABLES PERCY ESPANA documented in this encounter Visit Diagnoses Diagnosis Carpal tunnel syndrome, bilateral Carpal tunnel syndrome documented in this encounter
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
--- OUTSIDE RECORDS SUMMARY | 2024-02-12 18:09 | XMS_ITS | Encounter Summary ---
Author Organization [facility] Address [facility] [place] [address] Care Team Providers Care Wet Pan Mixer Name Role Phone Unavailable Primary Care Provider Unavailabl e Encounter Details Date Type Department Care Team (Latest Contact Info) Description 11/25/2015 1:36 PM EDT Hospital En[place] [address] Hunter Vickers MD [facility] [place] [address] Abnormal findings on diagnostic imaging of breast Discharge Disposition: Home Social History Tobacco Use [...] dihydroergotamine (MIGRANAL) 0.5 mg/pump act. (4 mg/mL) [place], Non-Aerosol Prime the pump 4 times, Place [...] 10:00 AM EDT Appointment XRay at [address] [place] [address] Tien Zurita MD [facility] [place] [address] 03/07/2024 10:40 AM EDT Office [place] [phone] Angel Hankins PA [facility] [place] [address] documented as of this encounter Procedures Procedure Name Priority Date/Time Associated Diagnosis Comments MAMMO S/P LOCALIZATION DEVICE IMAGES RIGHT Routine 11/25/2015 3:18 PM EDT Abnormal findings on diagnostic imaging of breast documented in this encounter Results * Mammo S/P Localization Device Images (Bx, Needle Loc) Right (11/25/2015 3:18 PM EDT) Anatomical Region Laterality Modality Breast Right Mammography Impressions 11/26/2015 11:24 AM EDT Concordant benign result RECOMMENDATION: Routine screening. Path conference: No Narrative 11/26/2015 11:24 AM EDT STEREOTACTIC GUIDED VACUUM ASSISTED BIOPSY OF THE RIGHT BREAST(S) CLINICAL HISTORY: Abnormal Right Breast Imaging. ??Calcifications right breast 12:00 radian 4 to 5 cm from the nipple Procedural details: Informed consent was obtained and a time out procedure was performed per hospital protocol. The patient gave permission to proceed. Using sterile technique and local anesthetic (less than 10cc's of 1% lidocaine superficially and less than 20 cc's of 1% lidocaine with epinephrine deep to dermis) a biopsy was performed from the craniocaudal approach using tomographic guidance and direct digital imaging. The patient was in the upright position. Multiple core biopsy specimens were obtained using a Hua Kang Eviva 9g 20mm device. A specimen radiograph confirms the calcifications of interest to be contained within it A Smark Eviva cylinder marker clip was deployed. A follow-up mammogram was performed in the CC and True Lateral projections and demonstrates the clip in the biopsy bed COMPLICATIONS: None. PROCEDURAL ATTESTATION: Resident: Skip I was present with the resident for the wood component(s) of the procedure and otherwise remained immediately available for the duration of the procedure. I attest to having personally viewed the images/test and approve the above interpretation. IMAGING DIFFERENTIAL DIAGNOSIS: Dystrophic calcification, fibroadenoma calcification, DCIS PATHOLOGIC DIAGNOSIS: Benign fat necrosis Hunter Vickers MD IMG MAMMO ORDERABLES documented in this encounter Visit Diagnoses Diagnosis Abnormal findings on diagnostic imaging of breast Other (abnormal) findings on radiological examination of breast documented in this encounter
--- OUTSIDE RECORDS SUMMARY | 2024-02-12 18:09 | XMS_ITS | Encounter Summary ---
Author Organization [facility] Address [facility] [place] [address] Care Team Providers Care Singer Songwriter Name Role Phone Unavailable Primary Care Provider Unavailabl e Reason for Visit * Reason Comments Bilateral Carpal Tunnel Syndrome * Consultation (Routine) - Closed Specialty Diagnoses / Procedures Referred By Cosmo cortez Referred To Contact Orthopaedics Diagnoses Carpal tunnel syndrome, bilateral Daniela Monsalve MD [facility] [address] Bowen Pichardo MD [facility] [place] [address] Referral ID Status Reason Start Date Expiration Date V isits Requested Visits Authorized [id number] Closed Consult, Test & Treat 04/30/2015 04/29/2016 1 1 Encounter Details Date Type Department Care Team (Late st Contact Info) Description 08/06/2015 1:10 PM EST Office [place] [address] Daniela Monsalve MD [facility] [address] Bowen Pichardo MD [facility] [place] [address] Carpal tunnel syndrome, bilateral Social History Tobacco Use Types Packs/Day Years [...] Sign Reading Time Taken Comments Blood Pressure 138/80 08/06/2015 1:27 PM EST Pulse 79 08/06/2015 1:27 PM EST Temperature - - Respiratory Rate - - Oxygen Saturation - - Inhaled Oxygen Concentration - - Weight 79.4 kg (175 lb) 08/06/2015 1:27 PM EST v erbal Height 166.4 cm (5' 5.5) 08/06/2015 1:27 PM EST verbal Body Mass Index 28.68 08/06/2015 1:27 PM EST documented in this encounter Progress Notes * Vicenta Sanchez PA - 08/06/2015 4:58 PM EST This 54-year-old female comes in today accompanied by her for evaluation of bilateral hand numbness and tingling and locking left thumb. She is right hand dominant who notes approximately six months of symptoms of numbness and tingling in her fingers. It will fall asleep throughout the day with activities. They will wake her up at night. She has some wrist braces she wears at nighttime which is helpful. She has had triggering with catching, clicking, and locking of the left thumb for approximately three months time. Examination of both hands today shows full range of motion of the fingers with clicking and catching, easily demonstrated in the left thumb. She is tender in the A1 rios area of the left thumb. She does admit to normal sensation in all fingers. The hands are well perfused. On the right, she has negative Tinel, positive Durkan, no thenar atrophy. On the left, she has positive Tinel, positive Durkan compression, no thenar atrophy is noted. Electrical studies show median motor latency of 4.7 on the right, 5.7 on the left. IMPRESSION: 1. Bilateral carpal tunnel syndrome, left greater than right. 2. Left trigger thumb. TREATMENT: Treatment options gone over with her including continued use of splints, cortisone injection or surgical treatment. Patient would like to avoid surgery if possible. She would like to proceed with cortisone injections. As her left hand is much more symptomatic, we will proceed with this first. Patient asks to inject both the carpal tunnel and the trigger thumb today. She was advised of possible steroid flare, possible risk of infection, incomplete relief of symptoms, and hypopigmentation of the skin. Patient wishes to proceed. After confirmation of the left side being the affected, using sterile technique the carpal tunnel was injected with 2 mL of 1% lidocaine and 2 mL of Celestone. She tolerated this well. She did have some numbness in the median nerve distribution prior to leaving the office today. After confirmation of the left thumb being the affected, using sterile technique the A1 rios area was injected with 1 mL of 1% lidocaine and 1 mL of Celestone. Ice to the hand tonight if she has any pain. We will plan on seeing her back in about one to two weeks for carpal tunnel injection on the right side if she would like. She understands that if she has recurrence of symptoms regarding the carpal tunnel, then surgical treatment would be recommended. documented in this encounter Plan of Treatment Upcoming Encounters Date Type Department Care Team (Late st Contact Info) Description 03/07/2024 10:00 AM EDT Appointment XRay at [address] [place] [address] Tien Zurita MD [facility] [address] 03/07/2024 10:40 AM EDT Office Visit Neurosurgery at [facility] [place] [address] Angel Hankins PA [facility] [place] [address] documented as of this encounter Visit Diagnoses Diagnosis Carpal tunnel syndrome, bilateral Carpal tunnel syndrome documented in this encounter Administered Medications Inactive Administered Medications - up to 3 most recent administrations Medication Order MAR Action Action Date Dose Rate Site betamethasone acetate-betamethasone sodium phosphate (CELESTONE) injection 12 mg 12 mg, Intramuscular, ONCE, 1 dose, On Tue08/06/15 at 1715, Routine Given 08/06/2015 4:56 PM EST 12 mg betamethasone acetate-betamethasone sodium phosphate (CELESTONE) injection 6 mg 6 mg, Intramuscular, ONCE, 1 dose, On Tue08/06/15 at 1715, Routine Given 08/06/2015 4:56 PM EST 6 mg lidocaine (XYLOCAINE) 10 mg/mL (1 %) injection 30 mg 30 mg (3 mL), Subcutaneous, ONCE, 1 dose, On Tue08/06/15 at 1715, Routine Given 08/06/2015 4:57 PM EST 30 mg documented in this encounter
--- OUTSIDE RECORDS SUMMARY | 2024-02-12 18:09 | XMS_ITS | Encounter Summary ---
Author Organization [facility] [place] [address] Care Team Providers Care Clinical Rn Manager Name Role Phone Brunonunu Lena Nunu MEJIA Primary Care Provider [phone] Encounter Details Date Type Department Care Team (Late st Contact Info) Description 08/01/2022 10:30 PM EST Ancillary Procedure [place] [address] Social History Tobacco Use Types [...] 03/07/2024 10:00 AM EDT Appointment XRay at [address] [place] [address] Tien Zurita MD [facility] [place] [address] 03/07/2024 10:40 AM EDT Office Visit Neurosurgery at [facility] [place] [address] Angel Hankins PA [facility] [place] [address] documented as of this encounter Procedures Procedure Name Priority Date/Time Associated Diagnosis Comments REQUEST FOR 2ND READ ULTRASOUND STUDY STAT 08/01/2022 10:29 PM EST documented in this encounter Results * Request for 2nd read Ultrasound Study [...] who have questions please contact the health home day care provider that requested your imaging first. ? Electronically signed by: Sandra Henderson MD, [facility] ([phone]), at 08/27/2022 12:30 PM --------ORIGINAL REPORT -------- EXAMINATION: REQUEST FOR 2ND READ ULTRASOUND STUDY CLINICAL HISTORY: L adnexal mass; Sending Institution [facility]; Date of exam 20220730; I believe [...] who have questions please contact the health home day care provider that requested your imaging first. ? Electronically signed by: Sandra Henderson MD, [facility] ([phone]), at 08/02/2022 10:18 AM Addendum by Sandra Henderson MD on 08/25/2022 12:39 PM EDT --------ADDENDUM #1-------- TECHNIQUE: US Pelvis, Images were obtained and VRE --------ORIGINAL REPORT -------- EXAMINATION: REQUEST FOR 2ND READ ULTRASOUND STUDY CLINICAL HISTORY: L adnexal mass; Sending Institution [facility]; Date of exam 20220730; I believe [...] who have questions please contact the health home day care provider that requested your imaging first. ? Electronically signed by: Sandra Henderson MD, [facility] ([phone]), at 08/02/2022 10:18 AM Impressions 08/02/2022 10:18 AM EST Large cystic lesion with mural nodularity in the RIGHT adnexa highly suspicious for malignancy Thank you for letting us participate in the care of this patient. ??If you are a health care provider and have any questions regarding this report, please contact the number below. ??For patients who have questions please contact the health home day care provider that requested your imaging first. ? Electronically signed by: Sandra Henderson MD, [facility] ([phone]), at 08/02/2022 10:18 AM Narrative 08/02/2022 10:18 AM EST EXAMINATION: REQUEST FOR 2ND READ ULTRASOUND STUDY CLINICAL HISTORY: L adnexal mass; Sending Institution [facility]; Date of exam 20220730; I believe [...] CLINICAL HISTORY: L adnexal mass; Sending Institution [facility]; Dateof exam 20220730; I believe a reinterpretation of this exam may alter care ofPatient. Yes; ; L adnexal mass TECHNIQUE: Images were obtained and VRE COMPARISON: CT from 07/29/2022 FINDINGS: By history the patient is status post cystectomy and LEFT nephrectomy.The images presented show a large cystic lesion in the RIGHT adnexa withperipheral nodularity. The measurements obtained were 13.7 x 11.5 by cgmadjqcjosji17.8 cm. The images do not show definite [...] patients who have questions please contactthe health home day care provider that requested your imaging first. Electronically signed by: Sandra Henderson MD, [facility]([phone]), at 08/02/2022 10:18 AM Oumou Villar MD IMG OUTSIDE INTERPRE TATION ORDERABLES documented in this encounter Visit Diagnoses Not on filedocumented in this encounter Care Teams Clinical Rn Manager Relationship Specialty Start Date End Date Lena Womack APRN PCP - General Family Medicine 08/02/22 documented as of this encounter
--- OUTSIDE RECORDS SUMMARY | 2024-02-12 18:09 | XMS_ITS | Encounter Summary ---
Author Organization [facility] [place] [address] Care Team Providers Care Boilermaker [employer] Name Role Phone Unavailable Primary Care Provider Unavailabl e Encounter Details Date Type Department Care Team (Late st Contact Info) Description 02/25/2015 External Results Neurology at [facility] [place] [phone] Nahid Kelly MD [facility] [place] [address] Social History Tobacco Use Types Packs/Day Years [...] 10:00 AM EDT Appointment XRay at [address] [place] [phone] Tien Zurita MD [facility] [place] [address] 03/07/2024 10:40 AM EDT Office [place] [address] Angel Hankins PA [facility] [place] [address] documented as of this encounter Procedures Procedure Name Priority Date/Time Associated Diagnosis Comments EMG SCAN Routine 02/24/2015 documented in this encounter Results * Scan Doc: EMG (02/24/2015) Nahid Kelly MD MEDIA MGR SCAN EXT O RDR/RSLT documented in this encounter Visit Diagnoses Not on filedocumented in this encounter
--- OUTSIDE RECORDS SUMMARY | 2024-02-12 18:09 | XMS_ITS | Encounter Summary ---
Author Organization [facility] [place] [address] Care Team Providers Care Boathouse Keeper Name Role Phone Unavailable Primary Care Provider Unavailabl e Encounter Details Date Type Department Care Team (Late st Contact Info) Description 05/25/2016 Telephone [place] [address] [facility] [place] [address] Social History Tobacco Use Types Packs/Day Years [...] Telephone Encounter - Rosaura Traore RN - 06/09/2016 10:30 AM EST Mailed letter to pt She has now no showed two appointments consecutively and has not responded to messages * Telephone Encounter - Rosaura Traore RN - 05/25/2016 11:55 AM EST Called patient and left a message asking for a return phone call. We need her updated insurance information to start a Botox PA. I let her know that this process typically takes 3-4 weeks and we likely will have to reschedule her 06/08/16 Botox visit unless we get this information from her to start the PA and it is approved early. documented in this encounter Plan of Treatment Upcoming Encounters Date Type Department Care Team (Late st Contact Info) Description 03/07/2024 10:00 AM EDT Appointment XRay at [address] [place] [address] [facility] [place] [address] 03/07/2024 10:40 AM EDT Office Visit Neurosurgery at [facility] [place] [address] [facility] [place] [address] documented as of this encounter Visit Diagnoses Not on filedocumented in this encounter
--- OUTSIDE RECORDS SUMMARY | 2024-02-12 18:09 | XMS_ITS | Encounter Summary ---
Author Organization [facility] [place] [address] Care Team Providers Care Teaching Dietitian Name Role Phone Unavailable Primary Care Provider Unavailabl e Encounter Details Date Type Department Care Team (Late st Contact Info) Description 02/24/2015 2:45 PM EDT [place] [address] Nahid Kelly MD [facility] [place] [address] Bilateral carpal tunnel syndrome Discharge Disposition: Home Social History Tobacco Use [...] as of this encounter Progress Notes * Nahid Kelly MD - 02/24/2015 3:17 PM EDT Katheryn Carranza referred for EDX studies by Daniela Monsalve MD [facility] [place] [address] to look for evidence of median nerve. Report scanned into EDH. documented in this encounter Plan of Treatment Upcoming Encounters Date Type Department Care Team (Late st Contact Info) Description 03/07/2024 10:00 AM EDT Appointment XRay at [address] [place] [address] Tien Zurita MD [facility] [place] [address] 03/07/2024 10:40 AM EDT Office Visit Neurosurgery at [facility] [place] [address] Angel Hankins PA [facility] [place] [address] documented as of this encounter Visit Diagnoses Diagnosis Bilateral carpal tunnel syndrome Carpal tunnel syndrome documented in this encounter
--- OUTSIDE RECORDS SUMMARY | 2024-02-12 18:09 | XMS_ITS | Encounter Summary ---
Author Organization [facility] [place] [address] Care Team Providers Care Slip Mixer Name Role Phone Brunonunu Lena Nunu MEJIA Primary Care Provider [phone] Encounter Details Date Type Department Care Team (Late st Contact Info) Description 08/01/2022 10:35 PM EST Ancillary Procedure [place] [address] Social History Tobacco Use Types [...] 10:00 AM EDT Appointment XRay at [address] [place] [address] Tien Zurita MD [facility] [place] [address] 03/07/2024 10:40 AM EDT Office Visit Neurosurgery at [facility] [place] [address] Angel Hankins PA [facility] [place] [address] documented as of this encounter Procedures Procedure Name Priority Date/Time Associated Diagnosis Comments REQUEST FOR 2ND READ CT SPINE STAT 08/01/2022 10:30 PM EST documented in this encounter Results * (ABNORMAL) Request For 2nd Read CT [...] who have questions please contact the health rn intensive care unit that requested your imaging first. ? Narrative 08/02/2022 8:25 AM EST EXAMINATION: REQUEST FOR 2ND READ CT SPINE CLINICAL HISTORY: back/flank pain r/o spinal stenosis; Sending Institution [facility]; Date of exam 20220729; I believe [...] on filedocumented in this encounter Care Teams Slip Mixer Relationship Specialty Start Date End Date Lena Womack APRN PCP - General Family Medicine 08/02/22 documented as of this encounter
--- OUTSIDE RECORDS SUMMARY | 2024-02-12 18:09 | XMS_ITS | Encounter Summary ---
[place] [address] Care Team Providers Care Drupal Programmer Name Role Phone Unavailable Primary Care Provider Unavailabl e Reason for Referral * MRI/CAT Scan (Routine) - Specialty Diagnoses / Procedures Referred By Cosmo cortez Referred To Contact Radiology Diagnoses Carpal tunnel syndrome, bilateral Procedures MRI Brain With/WO Contrast Daniela Monsalve MD [facility] [place] [address] [place] [address] Referral ID Status Reason Start Date Expiration Date V isits Requested Visits Authorized [id number] 03/03/2015 03/02/2016 1 1 Encounter Details Date Type Department Care Team (Latest Contact Info) Description 03/04/2015 3:28 PM EDT - 03/04/2015 11:59 PM EDT Hospital [place] [address] CLINIC, Daniela Bowie MD [facility] [place] [address] Carpal tunnel syndrome, bilateral Discharge Disposition: Home [...] dihydroergotamine (MIGRANAL) 0.5 mg/pump act. (4 mg/mL) [place], Non-Aerosol Prime the pump 4 times, Place [...] daily. 08/08/2022 documented as of this encounter Progress Notes * Zenia Rizo RN - 02/27/2015 10:10 AM EDT VIR MRI PRE-SEDATION ASSESSMENT NOTE NAME: Katheryn Carranza AGE: 54 y.o. : 1960 [address] [facility] [place] [address] Female [phone] (home) No relevant phone numbers on file. SANTI FITZGERALD APRN (General) None (Regular Care Provider) Allergies Allergen Reactions ??? Allergenic Extracts Pollen ??? Tramadol Low potassium ??? Zoloft [Sertraline] Nausea And Vomiting Date/Time of call: February 27, 2015/10:10 AM/ PREVIOUS MRI SCAN? Yes HEIGHT: WEIGHT: SCHEDULED SCAN: MRI Brain w/wo 40 min scan, head first, supine Scanner 1 SUBJECTIVE: they were gonna give me CAN YOU LAY FLAT? yes DO YOU HAVE ANY PAIN ISSUES? Yes-neck and back and knees ASSESSMENT: Appropriate for PO sedate PLAN: 1-2 mg Ativan po per protocol Guidelines for MRI Pre-Procedures Laboratory Studies: 1. Creatinine studies (GFR level needed) within 90 days of scan ??? 70 yo or older if they are getting contrast ??? 50 years and older if they are diabetic and getting contrast ??? GFR Date of lab draw ( xx ) You must have a commercial relief driver present when you check in. This patient has been informed that they require a commercial relief driver to drive them home after this procedure. In the absence of a commercial relief driver, IR will not be able to sedate for your scan. Pt verbalized understanding of these instructions during the pre-procedure education via phone. Yes [place] of commercial relief driver: Phone number PRIOR SCAN DATE/S SEDATION TYPE SUCCESSFUL 09/29/12 MRI lumbar spine Ativan 1mg po x1 yes 03/04/15 MRI Brain Ativan 1 mg x 2. Yes PT STATED TO TELEVISION INSTALLER THAT THE SEDATION WAS EFFECTIVE FOR SCAN: Y N COMMENTS: documented in this encounter Plan of Treatment Upcoming Encounters Date Type Department Care Team (Late st Contact Info) Description 03/07/2024 10:00 AM EDT Appointment XRay at [address] [place] [address] Tien Zurita MD [facility] [place] [address] 03/07/2024 10:40 AM EDT Office Visit Neurosurgery at [facility] [place] [address] Angel Hankins PA [facility] [place] [address] documented as of this encounter Procedures Procedure Name Priority Date/Time Associated Diagnosis Comments MRI BRAIN WWO CONTRAST (GENERIC) Routine 03/04/2015 5:08 PM EDT Carpal tunnel syndrome, bilateral documented in this encounter Results * MRI Brain With/WO Contrast (03/04/2015 5:08 PM EDT) Anatomical Region Laterality Modality Head Magnetic Resonan ce 03/04/2015 5:08 PM EDT Impressions 03/04/2015 5:21 PM EDT IMPRESSION: Negative brain MRI. Narrative 03/04/2015 5:21 PM EDT EXAMINATION: MR BRAIN W/WO CONTRAST CLINICAL HISTORY: chronic migraine, cervical nek pain evaluation for secondary causes of CASTELLANOS TECHNIQUE: MR the brain performed prior to and following intravenous administration of a milliliters Gadavist COMPARISON: None FINDINGS: The ventricles are normal in size and contour. There is no intracranial mass, mass effect, or shift. There is no abnormal enhancement. Major intracranial flow voids are normal. There is no restricted diffusion. A small amount of mucosal thickening is present in the left side of the sphenoid sinus. Posterior fossa and craniocervical junction are normal. Skull base, and pituitary appear normal. 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 Cerebral parenchyma is normal in signal. Procedure Note Lamberto Acosta MD - 03/04/2015 EXAMINATION: MR BRAIN W/WO CONTRAST CLINICAL HISTORY: chronic migraine, cervical nek pain evaluation forsecondary causes of CASTELLANOS TECHNIQUE: MR the brain performed prior to and following intravenous administration of a milliliters Gadavist COMPARISON: None FINDINGS: The ventricles are normal in size and contour. There is no intracranial mass, mass effect, or shift. There is no abnormalenhancement. Major intracranial flow voids are normal. There is no restricteddiffusion. A small amount of mucosal thickening is present in the left side of thesphenoid sinus. Posterior fossa and craniocervical junction are normal. Skull base,and pituitary appear normal. 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 Cerebral parenchyma is normal in signal. IMPRESSION IMPRESSION: Negative brain MRI. Daniela Monsalve MD IMG MRI ORDERABLES documented in this encounter Visit Diagnoses Diagnosis Carpal tunnel syndrome, bilateral Carpal tunnel syndrome documented in this encounter Administered Medications Inactive Administered Medications - up to 3 most recent administrations Medication Order MAR Action Action Date Dose Rate Site gadobutrol (GADAVIST) 1 mMol/mL injection 8.44 mL 8.44 mL (0.1 mL/kg/dose ? 84.4 kg Order-specific weight), Intravenous, ONCE PRN, 1 dose, Starting on Tue03/04/15 at 1644, Until Tue03/04/15 at 1652, Per Protocol, Routine Given 03/04/2015 4:52 PM EDT 8 mLs LORazepam (ATIVAN) tablet 1-2 mg 1-2 mg, Oral, EVERY 30 MIN PRN, 2 doses, Starting on Tue03/04/15 at 0728, Until Tue03/04/15 at 1627, Anxiety, Angio/IR (Day of Procedure), Routine Given 03/04/2015 4:27 PM EDT 1 mg Given 03/04/2015 3:57 PM EDT 1 mg documented in this encounter
--- OUTSIDE RECORDS SUMMARY | 2024-02-12 18:09 | XMS_ITS | Encounter Summary ---
[place] [address] Care Team Providers Care Docketing Specialist Name Role Phone Unavailable Primary Care Provider Unavailabl e Reason for Referral * Consultation (Routine) - Closed Specialty Diagnoses / Procedures Referred By Cosmo cortez Referred To Contact Orthopaedics Diagnoses Carpal tunnel syndrome, bilateral Daniela Monsalve MD [facility] [place] [address] Bowen Pichardo MD [facility] [place] [address] Referral ID Status Reason Start Date Expiration Date V isits Requested Visits Authorized [id number] Closed Consult, Test & Treat 04/30/2015 04/29/2016 1 1 Reason for Visit * Reason Comments Migraine Encounter Details Date Type Department Care Team (Late st Contact Info) Description 04/30/2015 12:30 PM EST [place] [address] Daniela Monsalve MD [facility] [place] [place] [address] Chronic migraine without aura without status migrainosus, not intractable (Primary Dx); Carpal tunnel syndrome, bilateral Social History Tobacco [...] Sign Reading Time Taken Comments Blood Pressure 138/85 04/30/2015 12:07 PM EST Pulse 70 04/30/2015 12:07 PM EST Temperature - - Respiratory Rate - - Oxygen Saturation - - Inhaled Oxygen Concentration - - Weight 80.7 kg (178 lb) 04/30/2015 12:07 PM EST per patient Height 166.4 cm (5' 5.5) 04/30/2015 12:07 PM ES T per patinet Body Mass Index 29.17 04/30/2015 12:07 PM EST documented in this encounter Patient Instructions * Patient Instructions* Daniela Monsalve MD - 04/30/2015 1:18 PM EST Office Number: (Rebekah - [facility]) Clinic nurse number (for most issues) (Elyssa) For Prescription Refills: (Stan) Please call for refills when you have one month left on your medication, we have 48 hours from the time you call to get the medication refill placed. Please call the clinic rather then using my-DH or e-mail, as the communication is better in real time. Thank you and I look forward to working with you. Book: [employer] (on ebay) [employer]/ [employer] (editors) the 5th or 6th edition Keep your Calendar and bring them to your appointment please. Diagnosis: Chronic Migraine without Aura - For Headache Prevention: Botox now and every 12 weeks Amitriptyline 100 mg qHS Gabapentin 300 mg TID Atenolol 50mg Tizanidine 4 mg - For mild to [...] to Orthopedics for surgical release of CTS Follow-up with Dr. Monsalve in 12 weeks for Botox Clinic 24 weeks for follow-up and Botox injections documented in this encounter Progress Notes * Daniela Monsalve MD - 04/30/2015 12:31 PM EST Neurology Headache Clinic Follow-up Patient Name: Katheryn Carranza Patient ID: [id number] Carranza is a 54 y.o. right handed female with PMH HTN, Tobacco use, MJ use, ARCHANA, Depression with headaches that are consistent with a chronic migraine without aura picture in addition to a medication overuse headache from her daily Tylenol use. Initial evaluation 02/24/2015: She has been seen by Dr. Sena Michael MD - Neurologist in [facility] 05/09/2013 - Assessment: Chronic Tension type headache, occipital neuralgia and history or menstrual migraine. She has been seen in the [facility] for evaluation of cervicogenic headache [...] - she has not yet seen an paper bag maker. When she had her uterus there was [...] the of her father (hit by drunk jitney driver) Serocesilial Previous work-up: MRI Cervical Spine 07/17/2014: Mid [...] in 2012 - very helpful ONB 02/24/2015 (Amelia) - may have helped for a day or 2 ?? Maybe longer Current Medications: Amitriptyline 100 mg qHS Gabapentin 300 mg TID Atenolol 50mg Tizanidine 4 mg Naproxen sodium 550mg twice a day as needed Vistaril 25mg twice a day as needed Migranal Nasal spray BOTOX APPROVED 02/27/15-05/29/15 PA #: [id number] 200 UNITS, FOR ONE DOSE. Treatments not tried: Topamax (Has a h/o renal stones - has only one kidney - congenital) Botox injections Carpal Tunnel Syndrome: EMG and NCS 02/24/2015: consistent with b/l median nerve entrapment L>R B/l wrist splints prescribed to be worn at night. Interval History: She is here with her She reports that she is a bit better - there has been a decrease in the frequency of headache. She continues to have pain on the left side making ROM limited. Patient has not been maintaining her headache calender In the last month she reports about 2 CASTELLANOS free days per week 8 CASTELLANOS free days per month, 22 CASTELLANOS days per month Headaches are lasting all day - she > 12 hours while awake with the CASTELLANOS - can have a later headache. She feels that all of the medications are helping The Migranal nasal spray is very helpful She is no longer taking over the counter medications or sumatriptan. In regards to the CTS - She is wearing them consistently at night, no change in sx. Medications: Current Outpatient Prescriptions on File Prior to Visit Medication Sig Dispense Refill ??? amitriptyline (ELAVIL) 100 mg Tablet Take 100 mg by mouth nightly. ??? Miscellaneous Medical Supply [facility] Bilateral wrist splints for CTS 2 each [...] dihydroergotamine (MIGRANAL) 0.5 mg/pump act. (4 mg/mL) Tappan, Non-Aerosol Prime the pump 4 times, Place [...] prior to visit. Physical Exam: Filed Vitals: 04/30/15 1207 BP: 138/85 Pulse: 70 Constitutional: Patient of apparent stated age, no [...] overuse headache from her daily Tylenol use. MOH has now resolved and she has had improvement in her CASTELLANOS sx. She continues to be in a chronic migrane state and therefore would benefit from Botox injections today. She will continue all medications at their current levels; Amitriptyline 100 mg qHS, Gabapentin 300 mg TID, Atenolol 50mg, Tizanidine 4 mg. For management of mild to moderate headache symptoms she has naproxen sodium and Vistaril in combination. For migrainous exacerbations she castellanos s Migranal nasal spray. For rescue Phenergan suppositories. She will start maintaining her CASTELLANOS calender so we can better track her headache improvement. Patient continues to have symptoms of bilateral carpal tunnel syndrome confirmed by NCS and EMG. She has been wearing her wrist splints with no improvement in sx therefore I will refer her for surgical evaluation by Dr. Pichardo in Orthopedics. # Chronic Migraine without Aura - Headache diary - For Headache Prevention: Botox today and every 12 weeks Amitriptyline 100 mg qHS Gabapentin 300 mg TID Atenolol 50mg Tizanidine 4 mg - For mild to [...] to Orthopedics for surgical release of CTS Follow-up with Dr. Monsalve in 12 weeks for Botox Clinic 24 weeks for follow-up and Botox injections Daniela Monsalve MD [facility] documented in this encounter Procedure Notes * Daniela Monsalve MD - 04/30/2015 1:14 PM ESTAssociated Order(s): CHEMODENERVATION, MEDICAL Neurology Procedure note Date: 04/30/2015 Patient: Katheryn Carranza : 1960 Procedure: Botox injections (PREEMPT protocol) Indications: Chronic Migraine without aura Date Procedure MIDAS 04/30/2015 Botox # 1 60, 66/90 CASTELLANOS days, 6/10 CASTELLANOS intensity Risk and benefits were explained [...] units divided between 2 sites in the nursery teacher muscles, 5 units into 1 site in [...] without any immediate complications. Daniela Monsalve MD [facility] Migraine Disability Assessment # of days in the past 3 months 1. Missed work / school because of CASTELLANOS 0 2. Productivity at work / school reduced by > half because of CASTELLANOS (do not count days from Q.1) 0 3. Did not do housework because of CASTELLANOS 48 4. Productivity in household work reduced by > half because of CASTELLANOS (do not count days from Q.3) 0 5. Missed family / social / leisure activities because of CASTELLANOS 12 Total 60 MIDAS grade (use total of Q1 to 5) I: 0-5, little to no disability II: 6-10, mild disability III: 11-20, moderate disability IV: 21+, severe disability A. # of days in the last 3 months with a CASTELLANOS (count each day if CASTELLANOS lasted > 1 day) 66 B. Average CASTELLANOS intensity (0-10) 6 documented in this encounter Plan of Treatment Upcoming Encounters Date Type Department Care Team (Late st Contact Info) Description 03/07/2024 10:00 AM EDT Appointment XRay at [address] [place] [address] Tien Zurita MD [facility] [place] [address] 03/07/2024 10:40 AM EDT Office Visit Neurosurgery at [facility] [place] [phone] Angel Hankins PA [facility] [place] [address] Scheduled Referrals Name Type Priority Associated Diagnoses Order Schedule Referral to Orthopaedics Outpatient Referral Routine Carpal tunnel syndrome, bilateral Ordered: 04/30/2015 documented as of this encounter Procedures Procedure Name Priority Date/Time Associated Diagnosis Comments CHEMODENERVATION, MEDICAL Routine 04/30/2015 1:27 PM EST documented in this encounter Results * Chemodenervation, medical (04/30/2015 1:27 PM EST) Narrative Daniela Monsalve MD - 04/30/2015 1:27 PM EST Daniela Monsalve MD ? 04/30/2015 ??1:27 PM Neurology Procedure note Date: 04/30/2015 Patient: Katheryn Carranza : ??1960 Procedure: Botox injections (PREEMPT protocol) Indications: Chronic Migraine without aura Date ??Procedure ?? MIDAS 04/30/2015 ??Botox # 1 ?? 60, 66/90 CASTELLANOS days, 11/13 CASTELLANOS intensity ?? Risk and benefits were [...] units divided between 2 sites in the nursery teacher muscles, 5 units into 1 site in [...] without any immediate complications. Daniela Monsalve MD [facility] Neu[facility]ache [facility] Migraine Disability Assessment # of days in the past 3 months 1. Missed work / school because of CASTELLANOS 0 2. Productivity at work / school reduced by > half because of CASTELLANOS (do not count days from Q.1) 0 3. Did not do housework because of CASTELLANOS 48 4. Productivity in household work reduced by > half because of CASTELLANOS (do not count days from Q.3) 0 5. Missed family / social / leisure activities because of CASTELLANOS 12 Total 60 MIDAS grade (use total of Q1 to 5) I: 0-5, little to no disability II: 6-10, mild disability III: 11-20, moderate disability IV: 21+, severe disability A. # of days in the last 3 months with a CASTELLANOS (count each day if CASTELLANOS lasted > 1 day) 66 B. Average CASTELLANOS intensity (0-10) 6 Daniela Monsalve MD PROCEDURE/MINOR SURG ICAL ORDERABLES documented in this encounter Visit Diagnoses Diagnosis Chronic migraine without aura without status migrainosus, not intractable- Primary Chronic migraine without aura, without mention of intractable migraine without mention of status migrainosus Carpal tunnel syndrome, bilateral Carpal tunnel syndrome documented in this encounter Administered Medications Inactive Administered Medications - up to 3 most recent administrations Medication Order MAR Action Action Date Dose Rate Site botulinum toxin type A (BOTOX) injection 200 Units 200 Units, Intramuscular, ONCE, 1 dose, On Tue04/30/15 at 1330, Routine Given 04/30/2015 1:13 PM EST 200 Units documented in this encounter
--- OUTSIDE RECORDS SUMMARY | 2024-02-12 18:09 | XMS_ITS | Encounter Summary ---
Author Organization [facility] [place] [address] Care Team Providers Care Hris Analyst Name Role Phone Sailaja Ross APRN Primary Care Provider Encounter Details Date Type Department Care Team (Late st Contact Info) Description 05/17/2017 Orders Only Nephrology Hypertension at 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
--- OUTSIDE RECORDS SUMMARY | 2024-02-12 18:09 | XMS_ITS | Encounter Summary ---
Author Organization [facility] [place] [address] Care Team Providers Care Screw Machine Adjuster Automatic Name Role Phone Unavailable Primary Care Provider Unavailabl e Reason for Visit * Reason Comments Knee Pain bilateral knee pain R>L Encounter Details Date Type Department Care Team (Latest Contact Info) Description 04/27/2016 10:30 AM EST Office [place] [address] Cori Patrick APRN [facility] [place] [address] Primary osteoarthritis of right knee (Primary Dx) Social History Tobacco Use Types Packs/Day Years [...] Sign Reading Time Taken Comments Blood Pressure 112/81 04/27/2016 10:38 AM EST Pulse 97 04/27/2016 10:38 AM EST Temperature - - Respiratory Rate - - Oxygen Saturation - - Inhaled Oxygen Concentration - - Weight 82.6 kg (182 lb) 04/27/2016 10:38 AM EST verbal Height 166.4 cm (5' 5.5) 04/27/2016 10:38 AM ES T verbal Body Mass Index 29.83 04/27/2016 10:38 AM EST documented in this encounter Progress Notes * Cori Patrick, LEGAL EXECUTIVE - 04/27/2016 10:30 AM EST Arthroplasty History/Previous Knee Surgery: 1. None Chief Complaint: Right knee symptomatic OA. I.D.: Katheryn Carranza is a 55 y.o. year old female who is well known to orthopedics for bilateral knee mild osteoarthritis. She does well with conservative treatment. The left knee is relatively quiescent today yet the right knee is becoming more symptomatic at the medial joint line with a burning, Intermittent, sharp pain at the medial femoral condyle, medial facet of the patellofemoral joint and proxim al tibial region. She is doing well with her hinged knee brace, oral NSAID's and relative rest and is here to talk about treatment options further. She has had previous cortisone injections to both knees most recently July 2015. It has been several months since her most recent injections. Otherwise, she is doing relatively well with chronic headaches treated with Botox injections by neurologyand her chronic medical illnesses are otherwise reportedly stable at this time and here for definitive management. ROS: Denies fever, chills, nausea, vomiting, vision change, shortness of breath, chest pain, visionchanges, headaches, bowel or bladder problem, ear, nose, sinus problem, neuro or psychiatric, or endocrine disorder not addressed above. Patient's medications, allergies, past medical, surgical, social and family histories were reviewedand updated as appropriate. VITALS: BP Readings from Last 1 Encounters: 04/27/16 112/81 Pulse Readings from Last 1 Encounters: 04/27/16 97 Height: 166.4 cm (5' 5.5) (verbal) Weight - Scale: 82.6 kg (182 lb) (verbal) Body mass index is 29.83 kg/(m^2). PHYSICAL EXAM: General: This is a very pleasant 54-year-old female in no acute distress she is alert and oriented ??3 her affect is bright and appropriate. Non-toxic appearing. Normocephalic Lungs/pulm: non-labored Skin: Dry and intact. No diaphoresis. Orthopedic Right knee exam: Positional changes brisk. Gait is non-antalgic. No assistive devices. No changed in mild varus alignment. SLR capability is strong with no extension lag noted. EHL/FHL 5/5. The right knee is painful at the medial facet of the PF joint, MFC and medial joint line. Right knee ROM: 0?? extension to approximately 130 degrees of flexion with medial joint line pain with extremes of flexion. The right knee is stable to valgus varus stress. Both feet are sensate and well perfused, DP and PT 2+ to palpation. Sensation intact to 1st webspace, medial and lateral sole and dorsum. Imaging: No new images. ASSESSMENT: Ms. Carranza is a 55 y.o. year old female with symptomatic Right knee mild to moderate patellofemoral and medial compartment OA. The LEFT knee is relatively quiescent today. We talked aboutTX options and she would like to continue with non-operative management with repeat RIGHT KNEE cortisone injection. It has been several months since her most recent injection. See procedures below. Ireviewed our [facility] knee strengthening handout for a HEP, Anaprox as directed by Neurology as directed in EDH, and Smoking cessation advised. She is comfortable with this approach. Pt agrees, questions solicited/answered, will return as scheduled and as needed for concerns or questions. Pt understands they may also call us prn for above. Procedure: Right knee intra-articular cortisone injection: Prior to [...] 03/07/2024 10:00 AM EDT Appointment XRay at [address] [place] [address] RubentTien MD [facility] [place] [address] 03/07/2024 10:40 AM EDT [place] [address] Angel Hankins PA [facility] [place] [address] documented as of this encounter Visit Diagnoses Diagnosis Primary osteoarthritis of right knee- Primary Primary localized osteoarthrosis, lower leg documented in this encounter Administered Medications Inactive Administered Medications - up to 3 most recent administrations Medication Order MAR Action Action Date Dose Rate Site BUpivacaine (PF) (MARCAINE) 0.25 % (2.5 mg/mL) injection 12.5 mg 12.5 mg, Intra-articular, ONCE, 1 dose, On Tue04/27/16 at 1115, Routine Given 04/27/2016 11:05 AM EST 12.5 mg lidocaine (XYLOCAINE) 10 mg/mL (1 %) injection 60 mg 60 mg, Intra-articular, ONCE, 1 dose, On Tue04/27/16 at 1115, Routine Given 04/27/2016 11:05 AM EST 60 mg triamcinolone acetonide (KENALOG-40) injection 40 mg 40 mg, Intra-articular, ONCE, 1 dose, On Tue04/27/16 at 1115, Routine Given 04/27/2016 11:05 AM EST 40 mg documented in this encounter
--- OUTSIDE RECORDS SUMMARY | 2024-02-12 18:09 | XMS_ITS | Encounter Summary ---
Author Organization [facility] [place] [address] Care Team Providers Care Radiation Control Worker Name Role Phone Unavailable Primary Care Provider Unavailabl e Reason for Referral * Physical Therapy (Routine) - Specialty Diagnoses / Procedures Referred By Cosmo cortez Referred To Contact Physical Therapy Diagnoses Migraine without aura and without status migrainosus, not intractable Daniela Monsalve MD [facility] [place] [address] Referral ID Status Reason Start Date Expiration Date V isits Requested Visits Authorized [id number] Evaluate and Treat 08/27/2015 02/23/2016 12 12 Reason for Visit * Reason Comments Injections Encounter Details Date Type Department Care Team (Late st Contact Info) Description 08/27/2015 11:30 AM EDT [place] [address] Daniela Monsalve MD [facility] [place] [address] Migraine without aura and without status migrainosus, [...] Sign Reading Time Taken Comments Blood Pressure 124/72 08/27/2015 11:35 AM EDT Pulse 80 08/27/2015 11:35 AM EDT Temperature - - Respiratory Rate - - Oxygen Saturation - - Inhaled Oxygen Concentration - - Weight 81.6 kg (180 lb) 08/27/2015 11:35 AM EDT Height 166.4 cm (5' 5.5) 08/27/2015 11:35 AM ED T Body Mass Index 29.5 08/27/2015 11:35 AM EDT documented in this encounter Patient Instructions * Patient Instructions* Daniela Monsalve MD - 08/27/2015 11:52 AM EDT Office Number: (Rebekah - [place]) Clinic nurse number (for most issues) (Elyssa) For Prescription Refills: (Stan) Please call for refills when you have one month left on your medication, we have 48 hours from the time you call to get the medication refill placed. Please call the clinic rather then using my- or e-mail, as the communication is better [...] release of CTS Follow-up with Dr. Monsalve as planned documented in this encounter Procedure Notes * Daniela Monsalve MD - 08/27/2015 11:44 AM EDT Procedure Note Procedure: Trigger Point injection Indication: headache and neck pain Consent: Indication, risks, benefits, and alternatives discussed with patient, including risk of bleeding, infection, permanent numbness, and medication reaction. Written consent signed by patient - 08/27/2015 Patient is doing better from a CASTELLANOS prospective with Botox injections She will benefit from PT evaluation to help with the cervicogenic headache component Location: bilateral trapezius,b/l splenius capitus Medication: 50/50 mixture of 1% lidocaine and 0.25% bupivacaine Technique: The area was cleansed with 2 alcohol swabs while using clear gloves. Using a 3 cc syringe and a 30 guage 1 inch needle, 0.25-0.5 cc of the medication mixture was injected over the trigger point (12 points, 6 cc mixture). Prior to each injection the plunger was drawn back to ensure that the needle was not in a blood vessel. The patient tolerated the procedure well. Complications: None Blood loss: <1 cc Daniela Monsalve MD [facility] Neurology * Daniela Monsalve MD - 08/27/2015 11:44 AM EDTAssociated Order(s): NERVE BLOCK - OCCIPITAL Procedure Note Procedure: Bilateral Greater Occipital Nerve Blocks Indication: Headache with occipital/cervical tenderness Consent: Indication, risks, benefits, and alternatives discussed with patient, including risk of bleeding, infection, permanent numbness, and medication reaction. Written consent signed by patient - 08/27/2015 Location: The greater occipital nerve was located [...] Blood loss: <1 cc Daniela Monsalve MD [facility] Neurology documented in this encounter Plan of Treatment Upcoming Encounters Date Type Department Care Team (Late st Contact Info) Description 03/07/2024 10:00 AM EDT Appointment XRay at [address] [place] [address] Tien Zurita MD [facility] [place] [address] 03/07/2024 10:40 AM EDT Office Visit Neurosurgery at [facility] [place] [address] Angel Hankins PA [facility] [place] [address] Scheduled Orders Name Type Priority Associated Diagnoses Orde r Schedule TRIGGER POINT INJECTION - 1 OR 2 MUSCLES Neurology Routine One Time for 1 Occurrences starting 08/27/2015 until 08/27/2015 Scheduled Referrals Name Type Priority Associated Diagnoses Orde r Schedule Referral to Physical Therapy Outpatient Referral Routine Migraine without aura and without status migrainosus, not intractable Ordered: 08/27/2015 documented as of this encounter Procedures Procedure Name Priority Date/Time Associated Diagnosis Comments NERVE BLOCK - OCCIPITAL Routine 08/27/2015 11:54 AM EDT documented in this encounter Results * NERVE BLOCK - OCCIPITAL (08/27/2015 11:54 AM EDT) Narrative Daniela Monsalve MD - 08/27/2015 11:54 AM EDT Daniela Monsalve MD ? 08/27/2015 11:54 AM Procedure Note Procedure: Bilateral Greater Occipital Nerve Blocks Indication: Headache with occipital/cervical tenderness Consent: Indication, risks, benefits, and alternatives discussed with patient, including risk of bleeding, infection, permanent numbness, and medication reaction. ?? Written consent signed by patient - 08/27/2015 Location: The greater occipital nerve was located [...] Blood loss: <1 cc Daniela Monsalve MD [facility] Neurology Daniela Monsalve MD NEUROLOGY ORDERABLES documented in this encounter Visit Diagnoses Diagnosis Migraine without aura and without status migrainosus, not intractable Migraine without aura, without mention of intractable migraine without mention of status migrainosus documented in this encounter Administered Medications Inactive Administered Medications - up to 3 most recent administrations Medication Order MAR Action Action Date Dose Rate Site BUpivacaine (PF) (MARCAINE) 0.25 % (2.5 mg/mL) injection 6 mg 6 mg, Subcutaneous, ONCE, 1 dose, On Tue08/27/15 at 1200, Routine Given 08/27/2015 11:52 AM EDT 6 mg lidocaine (XYLOCAINE) 10 mg/mL (1 %) injection 6 mg 6 mg, Subcutaneous, ONCE, 1 dose, On Tue08/27/15 at 1200, Routine Given 08/27/2015 11:52 AM EDT 6 mg documented in this encounter
--- OUTSIDE RECORDS SUMMARY | 2024-02-12 18:09 | XMS_ITS | Encounter Summary ---
Author Organization [facility] Address [facility] [place] [address] Care Team Providers Care Home Improvement Installer Name Role Phone Unavailable Primary Care Provider Unavailabl e Encounter Details Date Type Department Care Team (Latest Contact Info) Description 02/27/2015 10:00 AM EDT - 02/27/2015 12:06 PM EDT Hospital Encounter XRay at [address] [place] [id number] Bilateral knee pain Social History Tobacco Use Types Packs/Day Years [...] dihydroergotamine (MIGRANAL) 0.5 mg/pump act. (4 mg/mL) [place], Non-Aerosol Prime the pump 4 times, Place [...] 03/07/2024 10:00 AM EDT Appointment XRay at [address] [place] [address] [facility] [place] [address] 03/07/2024 10:40 AM EDT Office Visit Neurosurgery at [facility] [place] [address] [facility] [place] [address] documented as of this encounter Procedures Procedure Name Priority Date/Time Associated Diagnosis Comments XR JOINT TEAM STANDING ALIGNMENT AP LAT SCHUSS SKYLINE BILAT Routine 02/27/2015 10:24 AM EDT Bilateral knee pain documented in this encounter Results * XR Joint Team Standing Alignment AP Lat Schuss [place] Bilateral (02/27/2015 10:24 AM EDT) Anatomical Region Laterality Modality Bilateral Radiographic Mariola ging 02/27/2015 10:2 4 AM EDT Impressions 02/27/2015 11:02 AM EDT IMPRESSION: 1. Mild medial compartment predominant bilateral knee joint osteoarthropathy. 2. Chondrocalcinosis. 3. No acute osseous injury or knee joint effusion. Narrative 02/27/2015 11:02 AM EDT EXAMINATION: JOINT TEAM STANDING ALIGNMENT AP LAT SCHUSS SKYLINE BILAT CLINICAL HISTORY: BILATERAL KNEE PAIN TECHNIQUE: Separate images of the pelvis, knees and feet were acquired in the AP projection with the patient standing. These images were stitched together to form a composite image of the pelvis and legs allowing for evaluation of lower extremity alignment in the weight bearing position. Four additional views of the knee were taken. COMPARISON: None FINDINGS: The mechanical axis is minimally medially deviated bilaterally. There is mild medial compartment joint space narrowing at both knees with associated subchondral sclerosis and small marginal osteophytes compatible with osteoarthritis. Chondrocalcinosis is noted at the medial compartment of both knees as well. A 2 to 3 mm small ossicle projects over the intercondylar notch region of the left knee on the AP view, exact location uncertain though possibly representing a intra-articular body. No knee joint effusion or acute fractures identified. No significant patellar tilt or subluxation is seen. Procedure Note Louie Alfonso MD - 02/27/2015 EXAMINATION: JOINT TEAM STANDING ALIGNMENT AP LAT SCHUSS SKYLINE BILAT CLINICAL HISTORY: BILATERAL KNEE PAIN TECHNIQUE: Separate images of the pelvis, knees and feet were acquired inthe AP projection with the patient standing. These images were stitched togetherto form a composite image of the pelvis and legs allowing for evaluation oflower extremity alignment in the weight bearing position. Four additional viewsof the knee were taken. COMPARISON: None FINDINGS: The mechanical axis is minimally medially deviated bilaterally. There is mild medial compartment joint space narrowing at both kneeswith associated subchondral sclerosis and small marginal osteophytes compatiblewith osteoarthritis. Chondrocalcinosis is noted at the medial compartment ofboth knees as well. A 2 to 3 mm small ossicle projects over the intercondylarnotch region of the left knee on the AP view, exact location uncertain thoughpossibly representing a intra-articular body. No knee joint effusion or acutefractures identified. No significant patellar tilt or subluxation is seen. IMPRESSION IMPRESSION: 1. Mild medial compartment predominant bilateral knee jointosteoarthropathy. 2. Chondrocalcinosis. 3. No acute osseous injury or knee joint effusion. Fracisco Miller MD IMG DX ORDERABLES documented in this encounter Visit Diagnoses Diagnosis Bilateral knee pain Pain in joint, lower leg documented in this encounter
--- OUTSIDE RECORDS SUMMARY | 2024-02-12 18:09 | XMS_ITS | Encounter Summary ---
Author Organization [facility] [place] [address] Care Team Providers Care Band Head Saw Operator Name Role Phone Unavailable Primary Care Provider Unavailabl e Reason for Visit * Reason Comments Migraine Botox Injection Encounter Details Date Type Department Care Team (Late st Contact Info) Description 10/08/2015 4:30 PM EDT [place] [address] Daniela Monsalve MD [facility] [place] [address] Migraine without aura and without status migrainosus, not intractable; Chest pain, unspecified type Social History Tobacco Use Types Packs/Day Years [...] Sign Reading Time Taken Comments Blood Pressure 110/73 10/08/2015 4:36 PM EDT Pulse 95 10/08/2015 4:36 PM EDT Temperature - - Respiratory Rate - - Oxygen Saturation - - Inhaled Oxygen Concentration - - Weight 81.6 kg (180 lb) 10/08/2015 4:36 PM EDT Height 166.4 cm (5' 5.5) 10/08/2015 4:36 PM EDT Body Mass Index 29.5 10/08/2015 4:36 PM EDT documented in this encounter Patient Instructions * Patient Instructions* Daniela Monsalve MD - 10/08/2015 5:01 PM EDT Office Number: (Rebekah - Corinna) Clinic nurse number for most issues and prescription refills (Satn) (Mari) (Rosaura) Please call for refills when you have one month left on your medication, we have 48 hours from the time you call to get the medication refill placed. Please call the clinic rather then using [facility] or e-mail, as the communication is better [...] - For severe CASTELLANOS Migranal Instructions: - HOLD till I have EKG results - Prime the pump 4 times - [...] - For rescue Phenergan 25mg -50mg suppository - Labs: CBC, BMP # Chest Pain EKG Follow-up with Dr. Monsalve as planned in 12 weeks documented in this encounter Progress Notes * Daniela Monsalve MD - 10/08/2015 4:44 PM EDT Neurology Headache Clinic Follow-up Patient Name: Katheryn [...] Dr. Sena Michael MD - Neurologist in [facility] 05/09/2013 - Assessment: Chronic Tension type headache, occipital neuralgia and history or menstrual migraine. She has been seen in the [facility] Pain Management for evaluation of cervicogenic headache [...] - she has not yet seen an manufacturing mechanic. When she had her uterus there was [...] the of her father (hit by drunk driver supervisor) Seroquel Previous work-up: MRI Cervical Spine 07/17/2014: [...] in 2012 - very helpful ONB 02/24/2015 ([place]) - may have helped for a day or 2 ?? Maybe longer Current Medications: Amitriptyline 100 mg qHS Gabapentin 300 mg TID Atenolol 50mg Tizanidine 4 mg Naproxen sodium 550mg twice a day as needed Vistaril 25mg twice a day as needed Migranal Nasal spray BOTOX APPROVED 02/27/15-05/29/15 PA #: [id number] 200 UNITS, FOR ONE DOSE. Date Procedure MIDAS 04/30/2015 Botox # 1 60, 66/90 CASTELLANOS days, 6/10 CASTELLANOS intensity 07/15/2015 Botox # 2 18, CASTELLANOS days, 7/10 CASTELLANOS intensity 10/08/2015 Botox # 3 24, CASTELLANOS days, 10 CASTELLANOS intensity Treatments not tried: Topamax (Has a h/o renal stones - has only one kidney - congenital) Botox injections Carpal Tunnel Syndrome: EMG and NCS 02/24/2015: consistent with b/l median nerve entrapment L>R B/l wrist splints prescribed to be worn at night. Interval History: She is presenting with her grand son She forgot her diary She feels that the headache are continuing to improve She has not jen to PT All medication are working for the patient Patient reports pain under the left breast with a shooting sharp quality - does not radiate to the arm Feels like prickly -like it goes to sleep and then sharp shooting pain She is scheduled for a mammogram No relationship to eating It can be triggered by a pressure point - there was no mass detected Medications: Current Outpatient Prescriptions on File Prior [...] dihydroergotamine (MIGRANAL) 0.5 mg/pump act. (4 mg/mL) [place], Non-Aerosol Prime the pump 4 times, Place [...] prior to visit. Physical Exam: Filed Vitals: 10/08/15 1636 BP: 110/73 Pulse: 95 Constitutional: Patient of apparent stated age, no [...] state with the use of Botox injections. We can review her medications, we will keep her on the same regimen with plans to try to start tapering medications approximately 6 months. She will continue current medications including Amitriptyline 100 mg qHS, Gabapentin 300 mg TID, Atenolol 50mg, Tizanidine 4 mg. For management of mild to moderate headache symptoms she has naproxen sodium and Vistarilin combination. For migrainous exacerbations she has Migranal nasal spray. For rescue Phenergan supp ositories. Patient is continuing to have a lot of neck pain, she has not yet seen physical therapy. I encouraged her to continue with that. I will give her some extra Botox injections in trapezius muscles to see if that helps as well. She will continue to receive alternating Botox injections and on these. As we were concluding our evaluation patient reported left-sided chest pain and at least one time per day sharp without radiation. He is extremely point she can trigger some of the pain and thereforethis could be consistent with costochondritis versus cardioembolic event. She has not had a recent change therefore she can have recommended that she hold on her use of Migranal nasal spray until shehears about the results. # Episodic Migraine without Aura - Headache diary - Labs: CBC, BMP - ONB today in 6 weeks - For Headache Prevention: Botox now and every 12 weeks Amitriptyline 100 mg qHS Gabapentin 300 mg TID Atenolol 50mg Tizanidine 4 mg - For mild to moderate CASTELLANOS Naproxen sodium 550mg twice a day as needed Vistaril 25mg twice a day as needed - For severe CASTELLANOS Migranal Instructions: - HOLD till I have EKG results - Prime the pump 4 times - [...] For rescue Phenergan 25mg -50mg suppository # Chest Pain EKG Follow-up with Dr. Monsalve as planned in 12 weeks Daniela Monsalve MD [facility] Neurology This note was created using [employer] speech recognition software. Please pardon any errors. documented in this encounter Procedure Notes * Daniela Monsalve MD - 10/08/2015 4:43 PM EDTAssociated Order(s): CHEMODENERVATION, MEDICAL Neurology Procedure note Date: 10/08/2015 Patient: Katheryn Carranza : 1960 Procedure: Botox injections (PREEMPT protocol) Indications: Chronic Migraine without aura Date Procedure MIDAS 04/30/2015 Botox # 1 60, 66/90 CASTELLANOS days, 6/10 CASTELLANOS intensity 07/15/2015 Botox # 2 18, 19/90 CASTELLANOS days, 7/10 CASTELLANOS intensity 10/08/2015 Botox # 3 24, 19/90 CASTELLANOS days, 5/10 CASTELLANOS intensity Risk and benefits were explained [...] divided between 2 sites in the director medicare sales muscles, 5 units into 1 site in [...] without any immediate complications. Daniela Monsalve MD [facility] Neurology Migraine Disability Assessment (patient did not bring her CASTELLANOS calender - she is guessing) # of days in the past 3 months 1. Missed work / school because of CASTELLANOS 0 2. Productivity at work / school reduced by > half because of CASTELLANOS (do not count days from Q.1) 0 3. Did not do housework because of CASTELLANOS 24 4. Productivity in household work reduced by > half because of CASTELLANOS (do not count days from Q.3) 0 5. Missed family / social / leisure activities because of CASTELLANOS 0 Total 24 MIDAS grade (use total of Q1 to 5) I: 0-5, little to no disability II: 6-10, mild disability III: 11-20, moderate disability IV: 21+, severe disability A. # of days in the last 3 months with a CASTELLANOS (count each day if CASTELLANOS lasted > 1 day) 19 B. Average CASTELLANOS intensity (0-10) 5 documented in this encounter Plan of Treatment Upcoming Encounters Date Type Department Care Team (Late st Contact Info) Description 03/07/2024 10:00 AM EDT Appointment XRay at [address] [place] [phone] Tien Zurita MD [facility] [place] [address] 03/07/2024 10:40 AM EDT Office Visit Neurosurgery at [facility] [place] [id number] Angel Hankins PA [facility] [place] [address] Scheduled Orders Name Type Priority Associated Diagnoses Orde r Schedule EKG 12 Lead ECG Routine Migraine without aura and without status migrainosus, not intractable Ordered: 10/08/2015 documented as of this encounter Procedures Procedure Name Priority Date/Time Associated Diagnosis Comments CHEMODENERVATION, MEDICAL Routine 10/09/2015 8:52 AM EDT HEMOGRAM Routine 10/08/2015 5:23 PM EDT Migraine without aura and without status migrainosus, not intractable DIFFERENTIAL, AUTOMATED Routine 10/08/2015 5:23 PM EDT Migraine without aura and without status migrainosus, not intractable CBC (WITH DIFF) Routine 10/08/2015 5:23 PM EDT Migraine without aura and without status migrainosus, not intractable BASIC METABOLIC PANEL Routine 10/08/2015 5:23 PM EDT Migraine without aura and without status migrainosus, not intractable documented in this encounter Results * Chemodenervation, medical (10/09/2015 8:52 AM EDT) Narrative Daniela Monsalve MD - 10/09/2015 8:52 AM EDT Daniela Monsalve MD ? 10/09/2015 ??8:52 AM Neurology Procedure note Date: 10/08/2015 Patient: Katheryn Craranza : ??1960 Procedure: Botox injections (PREEMPT protocol) Indications: Chronic Migraine without aura Date ??Procedure ?? MIDAS 04/30/2015 ??Botox # 1 ?? 60, 66/90 CASTELLANOS days, 6/10 CASTELLANOS intensity ?? 07/15/2015 ??Botox # 2 ??18, 19/90 CASTELLANOS days, 7/10 CASTELLANOS intensity ?? 10/08/2015 ??Botox # 3 ??24, 19/90 CASETLLANOS days, 5/10 CASTELLANOS intensity ?? Risk and benefits were [...] divided between 2 sites in the director medicare sales muscles, 5 units into 1 site in [...] without any immediate complications. Daniela Monsalve MD [facility] Neurology Migraine Disability Assessment (patient did not bring her CASTELLANOS calender - she is guessing) # of days in the past 3 months 1. Missed work / school because of CASTELLANOS 0 2. Productivity at work / school reduced by > half because of CASTELLANOS (do not count days from Q.1) 0 3. Did not do housework because of CASTELLANOS 24 4. Productivity in household work reduced by > half because of CASTELLANOS (do not count days from Q.3) 0 5. Missed family / social / leisure activities because of CASTELLANOS 0 Total 24 MIDAS grade (use total of Q1 to 5) I: 0-5, little to no disability II: 6-10, mild disability III: 11-20, moderate disability IV: 21+, severe disability A. # of days in the last 3 months with a CASTELLANOS (count each day if CASTELLANOS lasted > 1 day) 19 B. Average CASTELLANOS intensity (0-10) 5 Daniela Monsalve MD PROCEDURE/MINOR SURG ICAL ORDERABLES * (ABNORMAL) Differential, Automated (10/08/2015 5:23 PM EDT) Neutrophil % 53.5 % [facility] Neutrophil Absolute 5.02 1.50 - 6.30 x10(3)/mc L [facility] Lymph % 39.8 % [facility] Lymphocytes Abs 3.7(H) 1.0 - 3.6 x10(3)/mc L [facility] Monocyte % 4.1 % [facility] Monocyte Abs 0.4 0.2 - 1.0 x10(3)/mc L [facility] Eos % 2.2 % [facility] Eosinophils Abs 0.2 0.0 - 0.5 x10(3)/[facility] Basophil % 0.1 % [facility] Baso Absolute 0.0 0.0 - 0.2 x10(3)/[facility] Immature Gran % 0.30 % [facility] Comment: Immature granulocytes(IG's)percentage and absolute count will include metamyelocytes, myelocytes, and promyelocytes. Blood smears from CBCs yielding IG's will be scanned manually for concordance. If this scan disagrees with the automated IG or if promyelocytes are noted, a manual differential will be performed. Immature Gran Absolute 0.03 0.00 - 0.05 x10(3)/[facility] Blood specimen (specimen) 10/08/2015 5:23 PM EDT 10/08/2015 5:36 PM EDT Narrative Resulting Agency Comment Spec In Lab Daniela Monsalve MD HEMATOLOGY ORDERABLE S [facility] [place] [address] * (ABNORMAL) Hemogram (10/08/2015 5:23 PM EDT) White Blood Cell 9.4 4.0 - 10.0 x10(3)/[facility] Red Blood Cell 4.07 3.93 - 5.22 x10(6)/[facility] Hemoglobin 13.2 11.2 - 15.7 gm/dL [facility] Hematocrit 38.7 34.0 - 45.0 % [facility] Mean Cell Volume 95.1(H) 79.0 - 94.0 fL [facility] Mean Cell Hemoglobin 32.4(H) 26.6 - 32.2 pg [facility] Mean Cell Hemoglobin Concentration 34.1 32.0 - 36.5 gm/dL [facility] Platelet 260 145 - 370 x10(3)/mc L [facility] RDW Standard Deviation 46.4(H) 35.0 - 46.0 fL [facility] RDW coefficient of variation 13.3 10.9 - 14.4 % [facility] Mean Platelet Volume 9.6 9.0 - 12.0 fL [facility] Blood specimen (specimen) 10/08/2015 5:23 PM EDT 10/08/2015 5:36 PM EDT Narrative Resulting Agency Comment Spec In Lab Daniela Monsalve MD HEMATOLOGY ORDERABLE S [facility] [place] [address] * (ABNORMAL) Basic Metabolic Panel (non-fasting) (10/08/2015 5:23 PM EDT) Glucose 105 65 - 199 mg/dL [facility] Comment:Diabetes: >=200 mg/d L plus symptoms Blood Urea Nitrogen 6(L) 8 - 18 mg/dL [facility] Creatinine 0.77 0.70 - 1.20 mg/dL [facility] Comment: Please note that the pediatric reference intervals supplied above were not validated at [facility]. Results from pediatric patients should be interpreted in conjunction to the patient's age, height and muscle mass. Sodium 142 135 - 145 mmol/L [facility] Potassium 3.9 3.5 - 5.0 mmol/L [facility] Comment: Please note: ??Patients with WBC >100,000 may have falsely elevated Potassium levels. ??For accurate Potassium quantification in these patients send serum separator tube (gold top) for subsequent determinations. ??Contact the Clinical Chemistry Laboratory if there are any questions. Chloride 103 98 - 107 mmol/L [facility] Carbon Dioxide 26 22 - 31 mmol/L [facility] Anion Gap 13 5 - 15 mmol/L [facility] Calcium 9.3 8.5 - 10.5 mg/dL [facility] Est Glomerular Filtration Rate >60 >=60 [facility] Comment: This estimated GFR (eGFR) value was calculated using the MDRD equation which has been validated on patients between the ages of 18 and 70. The MDRD should not be used to assess kidney function in patients < 18 years of age or in patients with extremes of body mass, or in patients with acute kidney failure. This value should be multiplied by 1.2 for patients. For further information please copy and paste the following links into your internet browser. [email or web address] Blood specimen (specimen) 10/08/2015 5:23 PM EDT 10/08/2015 5:36 PM EDT Narrative Resulting Agency Comment Spec In Lab Daniela Monsalve MD CHEMISTRY ORDERABLES [facility] [place] [address] documented in this encounter Visit Diagnoses Diagnosis Migraine without aura and without status migrainosus, not intractable Migraine without aura, without mention of intractable migraine without mention of status migrainosus Chest pain, unspecified type documented in this encounter Administered Medications Inactive Administered Medications - up to 3 most recent administrations Medication Order MAR Action Action Date Dose Rate Site botulinum toxin type A (BOTOX) injection 200 Units 200 Units, Intramuscular, ONCE, 1 dose, On Tue10/08/15 at 1700, Routine Given 10/08/2015 5:08 PM EDT 200 Units documented in this encounter
--- OUTSIDE RECORDS SUMMARY | 2024-02-12 18:09 | XMS_ITS | Encounter Summary ---
Author Organization [facility] [place] [address] Care Team Providers Care Bilingual Patient Support Caseworker Name Role Phone Unavailable Primary Care Provider Unavailabl e Reason for Referral * Physical Therapy (Routine) - Closed Specialty Diagnoses / Procedures Referred By Cosmo cortez Referred To Contact Diagnoses Knee pain, bilateral Cori Patrick [facility] [facility] [place] [address] Unknown None Referral ID Status Reason Start Date Expiration Date V isits Requested Visits Authorized [id number] Closed Evaluate and Treat PCP Updated and/or Approved 02/27/2015 08/26/2015 24 24 Reason for Visit * Reason Comments Bilateral Knee Pain Encounter Details Date Type Department Care Team (Latest Contact Info) Description 02/27/2015 10:30 AM EDT Office [place] [address] Cori Patrick [facility] [place] [address] Knee pain, bilateral (Primary Dx); Osteoarthritis of patellofemoral joint Discharge Disposition: Home Social History Tobacco Use [...] Sign Reading Time Taken Comments Blood Pressure 127/93 02/27/2015 10:46 AM EDT Pulse 75 02/27/2015 10:46 AM EDT Temperature - - Respiratory Rate - - Oxygen Saturation - - Inhaled Oxygen Concentration - - Weight 84.4 kg (186 lb) 02/27/2015 10:46 AM EDT verbal Height 166.4 cm (5' 5.5) 02/27/2015 10:46 AM ED T verbal Body Mass Index 30.48 02/27/2015 10:46 AM EDT documented in this encounter Progress Notes * Cori Patrick APRN - 02/27/2015 11:16 AM EDT Arthroplasty History/Previous Knee Surgery: 1. None Chief Complaint: Chief Complaint Patient presents with ??? Bilateral Knee Pain This patient was referred from Sailaja Ross APRN [address] [place] [id number] I.D.: Katheryn Carranza is a 54 y.o. year old female being seen today to discuss her bilateral knees with the bilateral knee being more symptomatic. Her history and physical exam were reviewed in detail. She states the knee has been symptomatic for several months. There was no inciting trauma/injury. She does not describe hip pain. She does feel as if she walks with a limp. Aggravating factors include stair climbing. Alleviating factors include she has tried Aleve with good effect and relative rest.. There is pain at night.. She can walk short distances and does not useassistive devices. She climb stairs and does use the railing. She has tried physical therapy. She has not had tried injections into the joint (none). She has tried NSAID's/Pain med's (Aleve). Ms. Carranza denies fever, chills, nausea, vomiting, vision change, shortness of breath, chest pain, vision changes, headaches, bowel or bladder problem, ear, nose, sinus problem, neuro or psychiatric,or endocrine disorder not addressed above. There is no history of bleeding disorders. No DVT or PE history. No sleep apnea or CPAP use. There are no reported problems with anesthesia. She does not endorse a history of DVT/PE or clotting disorder. ASSOCIATED DIAGNOSES: She does not reports problems with either hip and does not have a history of spine or back issues. ALLERGIES Allergies Allergen Reactions ??? Allergenic Extracts Pollen ??? Tramadol Low potassium ??? Zoloft [Sertraline] Nausea And Vomiting Allergies to metals: None. SOCIAL HISTORY: reports that she has been smoking Cigarettes. She has a 8.75 pack-year smoking history. She has never used smokeless tobacco. She reports that she uses illicit drugs. She reports thatshe does not drink alcohol. Occupation: Disabled [employer]IES: Patient Active Problem List Diagnosis Code ??? Breast hypertrophy 611.1 ??? Neck pain on left side 723.1 ??? Cervical spondylosis without myelopathy 721.0 ??? 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 Cervical radiculitis 723.4 ??? Occipital neuralgia 723.8 ??? Knee pain, bilateral 719.46 Further past medical history: Breast reduction surgery anxiety depression, ADHD, high blood pressure, GERD Family History Problem Relation Age of Onset ??? Alcohol Abuse Sister ??? Cerebrovascular Accident Sister ??? Migraines Sister ??? Alcohol Abuse Brother ??? Arthritis Neg Hx ??? Asthma Neg Hx ??? Cancer Neg Hx ??? Heart Disease Neg Hx ??? Substance Abuse Neg Hx ??? Migraines Sister VITALS: BP Readings from Last 1 Encounters: 02/27/15 127/93 Pulse Readings from Last 1 Encounters: 02/27/15 75 Height: 166.4 cm (5' 5.5) (verbal) Weight - Scale: 84.369 kg (186 lb) (verbal) Body mass index is 30.47 kg/(m^2). PHYSICAL EXAM: Constitution: Patient sits in the clinic today in no apparent distress. The patient is alert and oriented x 3. Appearance is age-appropriate, affect is similarly appropriate. Head, ears, eyes, nose, throat: grossly normal. Anicteric, no apparent lymphadenopathy. Chest: Normal chest expansion with re gular inspiratory effort. No audible wheezing with regularly inspiratory effort. Cardiac: regular rate and rhythm by peripheral palpation. Abdominal: Soft non- tender abdomen with no masses noted. C, T, L & S Spines demonstrate supple pain-free ROM with no focal abnormality. Gross extremity examination demonstrates full active and passive ROM without stigmata of rheumatoid disease. I have made the following determinations: Positional changes are brisk. No assistive devices. Both knee with varus alignment. Straight leg capability is strong no extension lag noted. EHL/FHL 5/5. She has moderate tenderness over both knee patellofemoral joint. Both knee with trace intra-articular effusions no evidence of infection. There is no bursal swelling noted. Knee Exam: LEFT Prior surgery on this joint: No Gait Abnormality: Antalgic Knee ROM: Extension:0 Flexion: 120 Alignment: 0-4 degrees Varus Stability: A/P Translation <5mm Varus (lateral stability) <5mm Valgus (medial stability) <5mm Extension La degrees or less Patella Tracking: Normal Skin Integrity: Normal Pulses Palpable: Left PT:Yes Left DP:Yes Motor/Sensory: Distal Motor:Normal Distal Sensory: Normal Quadriceps Strength:5 I have made the following determinations: Knee Exam: RIGHT Prior surgery on this joint: No Gait Abnormality: Antalgic Knee ROM: Extension:0 Flexion: 120 Alignment: 0-4 degrees Varus Stability: A/P Translation <5mm. Varus (lateral stability) <5mm Valgus (medial stability) <5mm Extension La degrees or less Patella Tracking: Normal Skin Integrity: Normal Pulses Palpable: Right PT: Yes Right DP:Yes Motor/Sensory: Distal Motor: Normal Distal Sensory: Normal Quadriceps Strength: 5 RADIOGRAPHIC ANALYSIS - RIGHT KNEE: Together, we reviewed her radiographs obtained previously which demonstrate degenerative joint disease. Kellgren-Iggy Grade: 3= moderate osteophytes, significant narrorwing, mild deformity [0= normal; 1=minimal ; 2= some osteophytes , some narrowing ; 3= moderate osteophytes, significantnarrowing, mild deformity; 4= large osteophytes, marked narrowing, obvious deformity] RADIOGRAPHIC ANALYSIS - LEFT KNEE: Together, we reviewed her radiographs obtained previously which demonstrate degenerative joint disease. Kellgren-Iggy Grade: 3= moderate osteophytes, significant narrorwing, mild deformity [0= normal; 1=minimal ; 2= some osteophytes , some narrowing ; 3= moderate osteophytes, significantnarrowing, mild deformity; 4= large osteophytes, marked narrowing, obvious deformity] Questionnaire Responses: myD-H Hip & Knee 02/27/2015 MODEMS Expectation 15 VR12 - Physical Component Summary 28.48 VR12 - Mental Component Summary 32.66 PROMIS-10 General Health Good PROMIS-10 Quality of Life Good PROMIS-10 Physical Health Good PROMIS-10 Mental Health Good PROMIS-10 Social Activity and Relationship Satisfaction Good PROMIS-10 Social Roles at Home and Work Good PROMIS-10 Everyday Physical Activities Moderately PROMIS-10 Anxious or Depressed last 7 days Sometimes PROMIS-10 Pain last 7 days 6 PROMIS PHYSICAL HEALTH SCORE (range 16-68) 0 PROMIS MENTAL HEALTH SCORE (range 21-68) 43.5 Arthritis Ladder - Knee Information & education ASSESSMENT AND PLAN: Ms. Carranza is a 54 y.o. year old female with moderate patellofemoral and medial compartment osteoarthritis of her bilateral knees with the bilateral knee being more symptomatic. We reviewed the multiple treatment options available to her for this condition. Both operative and non operative options were discussed as well as the pure elective nature of each. I reviewed the concept of the arthritis ladder with its step-brooks approach, rising in invasiveness based on either previous response or symptom severity/impact on lifestyle. Considering the apparent impact on her lifestyle and having explored non- operative treatment options, I indicated that in my opinion, the treatment most likely to restore a more normal, pain-free level of function would be conservative measures. We reviewed the arthritis ladder as stated above and she has tried physical therapy as well as oral anti-inflammatories. She feels that she has hit a standstill with these modalities. We did discuss the use of both knee cortisone injections as an adjunct to her current treatment and she would like to proceed. See both procedures below. This will be followed by a comprehensive physical therapy program as directed in the medical record. Copy of order given to PT. We also fit her with both knee hinged knee braces with ortho care today. I would like to reevaluate her progress in about 8 week's time. We will go ahead and set that up on the same day as her Neurology appointment. Pt agrees, questions solicited/answered, will return as [...] 10:00 AM EDT Appointment XRay at [address] [place] [address] Tien Zurita MD [facility] [place] [address] 03/07/2024 10:40 AM EDT Office Visit Neurosurgery at [facility] [place] [address] Angel Hankins PA [facility] [place] [address] Scheduled Referrals Name Type Priority Associated Diagnoses Orde r Schedule Referral to Physical Therapy Outpatient Referral Routine Knee pain, bilateral Ordered: 02/27/2015 documented as of this encounter Visit Diagnoses Diagnosis Knee pain, bilateral- Primary Pain in joint, lower leg Osteoarthritis of patellofemoral joint Osteoarthrosis, unspecified whether generalized or localized, lower leg documented in this encounter Administered Medications Inactive Administered Medications - up to 3 most recent administrations Medication Order MAR Action Action Date Dose Rate Site BUpivacaine (PF) (MARCAINE) 0.25 % (2.5 mg/mL) injection 12.5 mg 12.5 mg, Intra-articular, ONCE, 1 dose, On Teresa 02/27/15 at 1145, Routine Given 02/27/2015 11:46 AM EDT 12.5 mg lidocaine (XYLOCAINE) 10 mg/mL (1 %) injection 60 mg 60 mg, Intra-articular, ONCE, 1 dose, On Teresa 02/27/15 at 1145, Routine Given 02/27/2015 11:46 AM EDT 60 mg triamcinolone acetonide (KENALOG-40) injection 40 mg 40 mg, Intra-articular, ONCE, 1 dose, On Teresa 02/27/15 at 1145, Routine Given 02/27/2015 11:46 AM EDT 40 mg documented in this encounter
--- OUTSIDE RECORDS SUMMARY | 2024-02-12 18:09 | XMS_ITS | Encounter Summary ---
Author Organization [facility] [place] [address] Care Team Providers Care Juvenile Court Judge Name Role Phone Unavailable Primary Care Provider Unavailabl e Reason for Visit * Reason Comments Injections Encounter Details Date Type Department Care Team (Late st Contact Info) Description 11/18/2015 11:45 AM EDT [place] [address] Daniela Monsalve MD [facility] [place] [address] Migraine without aura and without status migrainosus, [...] Sign Reading Time Taken Comments Blood Pressure 137/89 11/18/2015 11:40 AM EDT Pulse 97 11/18/2015 11:40 AM EDT Temperature - - Respiratory Rate - - Oxygen Saturation - - Inhaled Oxygen Concentration - - Weight 81.6 kg (180 lb) 11/18/2015 11:40 AM EDT reported Height 166.4 cm (5' 5.5) 11/18/2015 11:40 AM ED T reported Body Mass Index 29.5 11/18/2015 11:40 AM EDT documented in this encounter Procedure Notes * Daniela Monsalve MD - 11/18/2015 11:49 AM EDTAssociated Order(s): TRIGGER POINT INJECTION - 1 OR 2 MUSCLES Procedure Note Procedure: Trigger Point injection Indication: headache and neck pain Consent: Indication, risks, benefits, and alternatives discussed with patient, including risk of bleeding, infection, permanent numbness, and medication reaction. Written consent signed by patient - 08/27/2015 Location: bilateral trapezius,b/l splenius capitus Medication: 50/50 mixture of 1% lidocaine and 0.25% bupivacaine Technique: The area was cleansed with 2 alcohol swabs while using clear gloves. Using a 3 cc syringe and a 30 guage 1/2 inch needle, 0.25-0.5 cc of the medication mixture was injected over the trigger point (12 points, 6 cc mixture). Prior to each injection the plunger was drawn back to ensure thatthe needle was not in a blood vessel. The patient tolerated the procedure well. Complications: None Blood loss: <1 cc Daniela Monsalve MD [facility] Neurology * Daniela Monsalve MD - 11/18/2015 11:49 AM EDTAssociated Order(s): NERVE BLOCK - OCCIPITAL [...] Blood loss: <1 cc Daniela Monsalve MD [facility] Neurology documented in this encounter Plan of Treatment Upcoming Encounters Date Type Department Care Team (Late st Contact Info) Description 03/07/2024 10:00 AM EDT Appointment XRay at [address] [place] [address] Tien Zurita MD [facility] [place] [address] 03/07/2024 10:40 AM EDT Office Visit Neurosurgery at [facility] [place] [address] Angel Hankins PA [facility] [place] [address] documented as of this encounter Procedures Procedure Name Priority Date/Time Associated Diagnosis Comments TRIGGER POINT INJECTION - 1 OR 2 MUSCLES Routine 11/18/2015 11:53 AM EDT NERVE BLOCK - OCCIPITAL Routine 11/18/2015 11:53 AM EDT documented in this encounter Results * TRIGGER POINT INJECTION - 1 OR 2 MUSCLES (11/18/2015 11:53 AM EDT) Narrative Daniela Monsalve MD - 11/18/2015 11:53 AM EDT Daniela Monsalve MD ? 11/18/2015 11:53 AM Procedure Note Procedure: Trigger Point injection Indication: headache and neck pain Consent: Indication, risks, benefits, and alternatives discussed with patient, including risk of bleeding, infection, permanent numbness, and medication reaction. ?? Written consent signed by patient - 08/27/2015 Location: bilateral trapezius,b/l splenius capitus Medication: 50/50 mixture of 1% lidocaine and 0.25% bupivacaine Technique: The area was cleansed with 2 alcohol swabs while using clear gloves. ??Using a 3 cc syringe and a 30 guage 1/2 inch needle, 0.25-0.5 cc of the medication mixture was injected over the trigger point (12 points, 6 cc mixture). ??Prior to each injection the plunger was drawn back to ensure that the needle was not in a blood vessel. ??The patient tolerated the procedure well. Complications: None Blood loss: <1 cc Daniela Monsalve MD [facility] Neurology Daniela Monsalve MD NEUROLOGY ORDERABLES * NERVE BLOCK - OCCIPITAL (11/18/2015 11:53 AM EDT) Narrative Daniela Monsalve MD - 11/18/2015 11:53 AM EDT Daniela Monsalve MD ? 11/18/2015 11:53 AM Procedure Note Procedure: Bilateral Greater Occipital [...] Blood loss: <1 cc Daniela Monsalve MD [facility] Neurology Daniela Monsalve MD NEUROLOGY ORDERABLES documented [...] 6 mg, Subcutaneous, ONCE, 1 dose, On Tue11/18/15 at 1200, Routine Given 11/18/2015 11:50 AM EDT 6 mg lidocaine (XYLOCAINE) 10 mg/mL (1 %) injection 6 mg 6 mg, Subcutaneous, ONCE, 1 dose, On Tue11/18/15 at 1200, Routine Given 11/18/2015 11:50 AM EDT 6 mg documented in this encounter
--- OUTSIDE RECORDS SUMMARY | 2024-02-12 18:09 | XMS_ITS | Encounter Summary ---
Author Organization [facility] [place] [address] Care Team Providers Care Inbound Call Center Agent Name Role Phone Unavailable Primary Care Provider Unavailabl e Reason for Visit * Reason Onset Date Comments Medication Refill 10/08/2015 Encounter Details Date Type Department Care Team (Late st Contact Info) Description 10/08/2015 [place] [address] aDniela Monsalve MD [facility] [place] [address] Migraine without aura and without status migrainosus, [...] 03/07/2024 10:00 AM EDT Appointment XRay at [address] [place] [address] Tien Zurita MD [facility] [place] [address] 03/07/2024 10:40 AM EDT Office [place] [address] Angel Hankins PA [facility] [place] [address] documented as of this encounter Visit Diagnoses Diagnosis Migraine without aura and without status migrainosus, not intractable Migraine without aura, without mention of intractable migraine without mention of status migrainosus documented in this encounter
--- OUTSIDE RECORDS SUMMARY | 2024-02-12 18:09 | XMS_ITS | Encounter Summary ---
Author Organization [facility] Address [facility] [place] [address] Care Team Providers Care Bacteriologist Fishery Name Role Phone Unavailable Primary Care Provider Unavailabl e Encounter Details Date Type Department Care Team (Latest Contact Info) Description 11/25/2015 1:37 PM EDT - 11/25/2015 11:59 PM EDT Hospital En[place] [phone] Hunter Vickers MD [facility] [place] [address] Abnormal findings on diagnostic imaging of breast [...] dihydroergotamine (MIGRANAL) 0.5 mg/pump act. (4 mg/mL) [place], Non-Aerosol Prime the pump 4 times, Place [...] as of this encounter Progress Notes * Abdullahi Valdivia, - 11/25/2015 5:52 AM EDT Patient Name: Katheryn Carranza Patient Age: 55 y.o. Birthdate: 1960 Admit date: (Not on file) Attending Physician: Hunter Vickers MD Pre-procedure note for needle breast biopsies performed in radiology. Procedure date: Today Procedure type: right breast stereotactic biopsy Allergies: Allergenic extracts; Tramadol; and Zoloft [sertraline] Medications: Current Outpatient Prescriptions: ??? amitriptyline (ELAVIL) 100 mg Tablet, Take 100 mg by mouth nightly., Disp: , Rfl: ??? Miscellaneous Medical Supply Misc, Bilateral wrist splints for CTS, Disp: 2 each, Rfl: 0 ??? naproxen sodium (ANAPROX DS) 550 mg Tablet, Take 1 tablet by mouth 2 times daily as needed (Mild to Moderate Headache). Can be taken with or without Vistaril, Disp: 60 tablet, Rfl: 12 ??? hydrOXYzine (VISTARIL) 25 mg Capsule, Take 1 capsule by mouth 2 times daily as needed (for Mildto moderate headaches - can be taken with Naproxen sodium)., Disp: 60 capsule, Rfl: 12 ??? promethazine (PHENERGAN) 25 mg Suppository, Place 1-2 suppositories rectally every 6 hours as needed (Nausea with headache)., Disp: 15 suppository, Rfl: 5 ??? dihydroergotamine (MIGRANAL) 0.5 mg/pump act. (4 mg/mL) [place], Non-Aerosol, Prime the pump 4 times, Place head down (usually in a sitting position, head between legs), spray one spray per nostril, while holding the opposite nostril closed, wait 15 minutes and the repeat (total of 4 sprays should be delivered - 2 per nostril), Disp: 8 mL, Rfl: 12 ??? gabapentin (NEURONTIN) 300 mg Capsule, Take 300 mg by mouth 3 times daily., Disp: , Rfl: ??? tiZANidine (ZANAFLEX) 4 mg Tablet, Take 4 mg by mouth daily., Disp: , Rfl: ??? estradiol (ESTRACE) 1 mg tablet, Take 1 mg by mouth daily., Disp: , Rfl: ??? baclofen (LIORESAL) 10 mg tablet, Take 10 mg by mouth 3 times daily. , Disp: , Rfl: ??? QUEtiapine (SEROQUEL) 25 [...] times daily as needed., Disp: , Rfl: ??? pantoprazole (PROTONIX) 40 mg tablet, Take 40 mg by mouth daily., Disp: , Rfl: ??? ketoconazole (NIZORAL) 2 % cream, Apply topically as needed., Disp: , Rfl: Anticoagulation status: none stopped on: N/A Imaging reviewed and procedural plan approved by Dr. ABDULLAHI VALDIVIA DO documented in this encounter Plan of Treatment Upcoming Encounters Date Type Department Care Team (Late st Contact Info) Description 03/07/2024 10:00 AM EDT Appointment XRay at [address] [place] [address] Tien Zurita MD [facility] [place] [address] 03/07/2024 10:40 AM EDT Office Visit Neurosurgery at [facility] [place] [phone] Angel Hankins PA [facility] [place] [address] documented as of this encounter Procedures Procedure Name Priority Date/Time Associated Diagnosis Comments MAMMO STEREOTACTIC BIOPSY Routine 11/25/2015 2:35 PM EDT Abnormal findings on diagnostic imaging of breast SPECIMEN TO PATHOLOGY Routine 11/25/2015 2:09 PM EDT SURGICAL PATHOLOGY REPORT Routine 11/25/2015 2:08 PM EDT documented in this encounter Results * Mammo Stereotactic (11/25/2015 2:35 PM EDT) Anatomical Region Laterality Modality Breast N/A Mammography Impressions 11/26/2015 11:24 AM EDT Concordant [...] core biopsy specimens were obtained using a [employer] Eviva 9g 20mm device. A specimen radiograph [...] necrosis Hunter Vickers MD IMG MAMMO ORDERABLES * Specimen to Pathology (surgical or derm) (11/25/2015 2:09 PM EDT) AP Specimen 11/25/2015 2:09 PM EDT 11/25/2015 2:09 PM EDT Narrative [facility] - 11/25/2015 2:09 PM EDT Specimen requisition ordered. ??Separate Pathology report to follow Monica Schafer MD PATHOLOGY/CYTOLOGY ORDERABLES [facility] [place] [address] * Surgical Pathology Report (11/25/2015 2:08 PM EDT) Final Diagnosis [id number] ? Location: 3L The signing pathologist has (i) examined the relevant preparation(s) for the specimen(s) and (ii) rendered or confirmed the diagnosis(es). . ?Surgical Pathology DIAGNOSIS Needle biopsies: ?Right breast Diagnosis: ?Fibrosis, organizing fat necrosis, and hemosiderin-lad en macrophages consistent with prior surgical changes Microcalcificat ions: ??Associated with fibrosis and fat necrosis 11/26/15 PATRICIA 11/26/15 Verified by: ? Miladys AKBAR, Mark Bailey ?Pathologist ?(Electronic Signature) The attending pathologist whose signature appears on this report has reviewed all diagnostic slides and has edited the gross and/or microscopic portion of the report in rendering the final pathologic diagnosis. CLINICAL INFORMATION Specimen Submitted: A - Right breast stereo bx 9G with and without calcs Clinical History: Right breast calcs Clinical Diagnosis: 1. FCD 2. DCIS 3. FA change SPECIMEN PROCESSING Received in two containers: 1 - Labeled/Fixativ e: Right breast stereo BX 9g calcs, formalin. Quantity/Size: Five, ranging from 2.2-2.5 cm. Description: Fibrofatty needle core biopsies. Sections/Proces sing: Submitted in (1-2). 2 - Labeled/Fixativ e: Right breast stereo BX 9g no calcs, formalin. Quantity/Size: Two, averaging 2.5 cm. Description: Fibrofatty needle core biopsies. Sections/Proces sing: Submitted in (3). Ischemic Time: 8 minutes. (T3) ??SCB 11/26/2015 9:12 AM EDT [facility] BREAST STRUCTURE / Unknown 11/25/2015 2:08 PM EDT 11/25/2015 2:08 PM EDT Monica Schafer MD PATHOLOGY/CYTOLOGY ORDERABLES [facility] [place] [address] documented in this encounter Visit Diagnoses Diagnosis Abnormal findings on diagnostic imaging of breast Other (abnormal) findings on radiological examination of breast documented in this encounter Administered Medications Inactive Administered Medications - up to 3 most recent administrations Medication Order MAR Action Action Date Dose Rate Site lidocaine (XYLOCAINE) 10 mg/mL (1 %) injection 10 mg 10 mg, Intradermal, ONCE, 1 dose, On Tue11/25/15 at 1430, Routine Given 11/25/2015 2:30 PM EDT 10 mg lidocaine-EPINEPHrine 1 %-1:100,000 injection 20 mL 20 mL, Intradermal, ONCE, 1 dose, On Tue11/25/15 at 1430, Routine Given 11/25/2015 2:30 PM EDT 20 mLs documented in this encounter
--- OUTSIDE RECORDS SUMMARY | 2024-02-12 18:09 | XMS_ITS | Encounter Summary ---
Author Organization [facility] [place] [address] Care Team Providers Care Store Leader Name Role Phone Unavailable Primary Care Provider Unavailabl e Encounter Details Date Type Department Care Team (Late st Contact Info) Description 11/25/2015 [place] [address] Daniela Monsalve MD [facility] [place] [address] Social History Tobacco Use Types Packs/Day Years [...] Telephone Encounter - Rosaura Traore RN - 12/05/2015 11:51 AM EDT Called patient and left a message informing her of results as noted by Dr. Monsalve. Stated patient did not need to call back unless she has questions about the test results or if she is in further need of assistance. * Telephone Encounter - Rosaura Traore RN - 12/05/2015 8:31 AM EDT Patient called and left a message on the triage line that she is returning a call from Tuesday and can be reached at [phone]. * Telephone Encounter - Rosaura Traore RN - 12/02/2015 3:42 PM EDT Called patient and left a message asking for a return phone call. * Telephone Encounter - Daniela Monsalve MD - 12/02/2015 3:26 PM EDT QTC 423 No evidence of ischemic changes Please let the patient know Daniela Monsalve MD [facility] Neurology * Telephone Encounter - Rosaura Traore RN - 11/25/2015 10:34 AM EDT EKG received - see scan doc documented in this encounter Plan of Treatment Upcoming Encounters Date Type Department Care Team (Late st Contact Info) Description 03/07/2024 10:00 AM EDT Appointment XRay at [address] [place] [address] Tien Zurita MD [facility] [place] [address] 03/07/2024 10:40 AM EDT Office Visit Neurosurgery at [facility] [place] [phone] Angel Hankins PA [facility] [place] [address] documented as of this encounter Visit Diagnoses Not on filedocumented in this encounter
--- OUTSIDE RECORDS SUMMARY | 2024-02-12 18:09 | XMS_ITS | Encounter Summary ---
Author Organization [facility] Address [facility] [place] [address] Care Team Providers Care Cream Buyer Name Role Phone Unavailable Primary Care Provider Unavailabl e Reason for Visit * Reason Comments Botox Injection * High Dollar Medication (Routine) - Closed Specialty Diagnoses / Procedures Referred By Contac t Referred To Contact Neurology Diagnoses Chronic migraine without aura, not intractable, without status migrainosus Procedures CHEMODENERVATION, MEDICAL TC ONABOTULINUMTOXINA, 1 UNIT, INJECTION Botox Daniela Monsalve MD [facility] [place] [address] Referral ID Status Reason Start Date Expiration Date V isits Requested Visits Authorized [id number] Closed Evaluate and Treat 06/30/2015 06/30/2016 6 6 Encounter Details Date Type Department Care Team (Late st Contact Info) Description 03/23/2016 11:00 AM EDT Office [place] [address] Daniela Monsalve MD [facility] [place] [address] Migraine without aura and without status migrainosus, [...] Sign Reading Time Taken Comments Blood Pressure 121/75 03/23/2016 11:00 AM EDT Pulse 89 03/23/2016 11:00 AM EDT Temperature - - Respiratory Rate - - Oxygen Saturation - - Inhaled Oxygen Concentration - - Weight - - Height - - Body Mass Index - - documented in this encounter Procedure Notes * Daneila Monsalve MD - 03/23/2016 11:00 AM EDTAssociated Order(s): CHEMODENERVATION, MEDICAL Neurology Procedure note Date: 03/23/2016 Patient: Katheryn Carranza : 1960 Procedure: Botox injections (PREEMPT protocol) Indications: Chronic Migraine without aura Date Procedure MIDAS 04/30/2015 Botox # 1 60, 66/90 CASTELLANOS days, 6/10 CASTELLANOS intensity 07/15/2015 Botox # 2 18, 19/90 CASTELLANOS days, 7/10 CASTELLANOS intensity 10/08/2015 Botox # 3 24, 19/90 CASTELLANOS days, 5/10 CASTELLANOS intensity 12/23/2015 Botox # 4 64, 28/90 CASTELLANOS days, 5/10 CASTELLANOS intensity 03/23/2016 Botox # 5 57, 39/90 CASTELLANOS days, 5/10 CASTELLANOS intensity Patient feels that this is still working very well for her She did have a week delay due to illness, it did wear off Risk and benefits were explained to the [...] units divided between 2 sites in the clerical adjudicator muscles, 5 units into 1 site in [...] without any immediate complications. Daniela Monsalve MD [facility] Neurology Migraine Disability Assessment # of days in the past 3 months 1. Missed work / school because of CASTELLANOS 0 2. Productivity at work / school reduced by > half because of CASTELLANOS (do not count days from Q.1) 0 3. Did not do housework because of CASTELLANOS 30 4. Productivity in household work reduced by > half because of CASTELLANOS (do not count days from Q.3) 12 5. Missed family / social / leisure activities because of CASTELLANOS 15 Total 57 MIDAS grade (use total of Q1 to 5) I: 0-5, little to no disability II: 6-10, mild disability III: 11-20, moderate disability IV: 21+, severe disability A. # of days in the last 3 months with a CASTELLANOS (count each day if CASTELLANOS lasted > 1 day) 39 B. Average CASTELLANOS intensity (0-10) 5 documented in this encounter Plan of Treatment Upcoming Encounters Date Type Department Care Team (Late st Contact Info) Description 03/07/2024 10:00 AM EDT Appointment XRay at [address] [place] [address] Tien Zurita MD [facility] [place] [address] 03/07/2024 10:40 AM EDT Office Visit Neurosurgery at [facility] [place] [phone] Angel Hankins PA [facility] [place] [address] documented as of this encounter Procedures Procedure Name Priority Date/Time Associated Diagnosis Comments CHEMODENERVATION, MEDICAL Routine 03/23/2016 11:23 AM EDT documented in this encounter Results * Chemodenervation, medical (03/23/2016 11:23 AM EDT) Narrative Daniela Monsalve MD - 03/23/2016 11:23 AM EDT Daniela Monsalve MD ? 03/23/2016 11:23 AM Neurology Procedure note Date: 03/23/2016 Patient: Katheryn Carranza : ??1960 Procedure: Botox [...] 28/90 CASTELLANOS days, 5/10 CASTELLANOS intensity ?? 03/23/2016 ??Botox # 5 ?? 57, 39/90 CASTELLANOS days, 5/10 CASTELLANOS intensity ?? Patient feels that this is still working very well for her She did have a week delay due to illness, it did wear off Risk and benefits were explained to the [...] units divided between 2 sites in the clerical adjudicator muscles, 5 units into 1 site in [...] without any immediate complications. Daniela Monsalve MD [facility] Neurology Migraine Disability Assessment # of days in the past 3 months 1. Missed work / school because of CASTELLANOS 0 2. Productivity at work / school reduced by > half because of CASTELLANOS (do not count days from Q.1) 0 3. Did not do housework because of CASTELLANOS 30 4. Productivity in household work reduced by > half because of CASTELLANOS (do not count days from Q.3) 12 5. Missed family / social / leisure activities because of CASTELLANOS 15 Total 57 MIDAS grade (use total of Q1 to 5) I: 0-5, little to no disability II: 6-10, mild disability III: 11-20, moderate disability IV: 21+, severe disability A. # of days in the last 3 months with a CASTELLANOS (count each day if CASTELLANOS lasted > 1 day) 39 B. Average CASTELLANOS intensity (0-10) 5 Daniela [...] 200 Units, Intramuscular, ONCE, 1 dose, On Tue03/23/16 at 1130, Routine Given 03/23/2016 11:21 AM EDT 200 Units documented in this encounter
--- OUTSIDE RECORDS SUMMARY | 2024-02-12 18:09 | XMS_ITS | Encounter Summary ---
Author Organization [facility] [place] [address] Care Team Providers Care Wrecker Operator Name Role Phone Sailaja Ross APRN Primary Care Provider Encounter Details Date Type Department Care Team (Late st Contact Info) Description 07/29/2022 12:05 AM EST Ancillary Procedure [place] [address] Social History Tobacco Use Types [...] 10:00 AM EDT Appointment XRay at [address] [place] [address] Tien Zurita MD [facility] [place] [address] 03/07/2024 10:40 AM EDT Office Visit Neurosurgery at [facility] [address] Angel Hankins PA [facility] [place] [address] documented as of this encounter Procedures Procedure Name Priority Date/Time Associated Diagnosis Comments FILM LIBRARY STORAGE ONLY CT SPINE STAT 07/29/2022 12:05 AM EST documented in this encounter Results * Film Library- Storage Only CT Spine (07/29/2022 12:05 AM EST) Narrative Dicom, Auditing User - 08/01/2022 9:53 PM EST This exam is auto-finalizing. It's purpose is for storage only. Kayleigh CHATTERJEE FILM LIBRARY ORD ERABLES documented in this encounter Visit Diagnoses Not on filedocumented in this encounter Care Teams Wrecker Operator Relationship Specialty Start Date End Date Sailaja Ross APRN PCP - General Family Medicine 01/24/17 07/31/22 documented as of this encounter
--- OUTSIDE RECORDS SUMMARY | 2024-02-12 18:09 | XMS_ITS | Encounter Summary ---
Author Organization [facility] [place] [address] Care Team Providers Care Screen Vent Binder Name Role Phone Unavailable Primary Care Provider Unavailabl e Reason for Visit * Reason Onset Date Comments Prior Authorization 02/26/2015 BOTOX APPROV ED 02/27/15-05/29/15 Encounter Details Date Type Department Care Team (Late st Contact Info) Description 02/26/2015 [place] [phone] Daniela Monsalve MD [facility] [place] [address] Prior Authorization (BOTOX APPROVED 02/27/15-05/29/15) Social History Tobacco Use Types Packs/Day Years [...] encounter Miscellaneous Notes * Telephone Encounter - ThorJoan cerrato Juwan - 03/04/2015 2:31 PM EDT BOTOX APPROVED 02/27/15-05/29/15 PA #: [id number] 200 UNITS, FOR ONE DOSE. * Telephone Encounter - Joan Felix - 02/27/2015 10:31 AM EDT INSURANCE ASKING FOR MORE INFO. FAXED. * Telephone Encounter - Joan Felix - 02/26/2015 2:40 PM EDT PA FOR BOTOX FAXED TO [place] [employer]. documented in this encounter Plan of Treatment Upcoming Encounters Date Type Department Care Team (Late st Contact Info) Description 03/07/2024 10:00 AM EDT Appointment XRay at [address] [place] [address] Tien Zurita MD [facility] [place] [address] 03/07/2024 10:40 AM EDT Office Visit Neurosurgery at [facility] [place] [phone] Angel Hankins PA [facility] [place] [address] documented as of this encounter Visit Diagnoses Not on filedocumented in this encounter
--- OUTSIDE RECORDS SUMMARY | 2024-02-12 18:09 | XMS_ITS | Encounter Summary ---
Author Organization [facility] [place] [address] Care Team Providers Care Flame Cutting Machine Operator Name Role Phone Unavailable Primary Care Provider Unavailabl e Reason for Visit * Reason Onset Date Comments Appointment 03/05/2015 Encounter Details Date Type Department Care Team (Late st Contact Info) Description 03/05/2015 Telephone [place] [phone] Cori Patrick APRN [facility] [place] [address] Appointment Social History Tobacco Use Types Packs/Day [...] encounter Miscellaneous Notes * Telephone Encounter - Betzaida Hannah - 03/11/2015 9:33 AM EDT Unable to contact, letter sent * Telephone Encounter - Betzaida Hannah - 03/07/2015 8:51 AM EDT LM#2 to schedule follow up with Abbie Patrick in 2 months (04/30/2015) with nxr. * Telephone Encounter - Betzaida Hannah - 03/05/2015 12:21 PM EDT Called to schedule follow up with Abbie Patrick on 04/30/2015, phone not accepting calls at this time. documented in this encounter Plan of Treatment Upcoming Encounters Date Type Department Care Team (Late st Contact Info) Description 03/07/2024 10:00 AM EDT Appointment XRay at [address] [place] [address] Tien Zurita MD [facility] [place] [address] 03/07/2024 10:40 AM EDT Office Visit Neurosurgery at [facility] [place] [address] Angel Hankins PA [facility] [place] [address] documented as of this encounter Visit Diagnoses Not on filedocumented in this encounter
--- OUTSIDE RECORDS SUMMARY | 2024-02-12 18:09 | XMS_ITS | Encounter Summary ---
Author Organization [facility] [place] [address] Care Team Providers Care Intensivist Name Role Phone Sailaja Ross APRN Primary Care Provider [phone] Encounter Details Date Type Department Care Team (Late st Contact Info) Description 07/30/2022 Ancillary Procedure [place] [address] Social History Tobacco Use Types [...] 03/07/2024 10:00 AM EDT Appointment XRay at [address] [place] [address] Tien Zurita MD [facility] [place] [address] 03/07/2024 10:40 AM EDT Office Visit Neurosurgery at [facility] [place] [address] Angel Hankins PA [facility] [place] [address] documented as of this encounter Procedures Procedure Name Priority Date/Time Associated Diagnosis Comments FILM LIBRARY STORAGE ONLY ULTRASOUND STUDY STAT 07/30/2022 12:00 AM EST documented in this encounter Results * Film Library- Storage Only Ultrasound Study (07/30/2022 12:00 AM EST) Narrative Dicom, Auditing User - 08/01/2022 9:52 PM EST This exam is auto-finalizing. It's purpose is for storage only. Kayleigh CHATTERJEE FILM LIBRARY ORD ERABLES documented in this encounter Visit Diagnoses Not on filedocumented in this encounter Care Teams Intensivist Relationship Specialty Start Date End Date Sailaja Ross APRN PCP - General Family Medicine 01/24/17 07/31/22 documented as of this encounter
--- OUTSIDE RECORDS SUMMARY | 2024-02-12 18:09 | XMS_ITS | Encounter Summary ---
[place] [address] Care Team Providers Care Securities Trader Name Role Phone Unavailable Primary Care Provider Unavailabl e Reason for Referral * High Dollar Medication (Routine) - Closed Specialty Diagnoses / Procedures Referred By Contbyron t Referred To Contact Neurology Diagnoses Chronic migraine without aura without status migrainosus, not intractable Procedures Auth Request for Medication TC ONABOTULINUMTOXINA, 1 UNIT, INJECTION Daniela Monsalve MD [facility] [place] [address] [facility] [place] [place] Neurology [address] [place] [address] Referral ID Status Reason Start Date Expiration Date V isits Requested Visits Authorized [id number] Closed Consult, Test & Treat 05/18/2016 05/18/2017 4 4 Encounter Details Date Type Department Care Team (Late st Contact Info) Description 05/18/2016 Orders [place] [address] Daniela Monsalve MD [facility] [place] [address] Chronic migraine without aura without status migrainosus, not intractable Social History [...] 03/07/2024 10:00 AM EDT Appointment XRay at [address] [place] [address] Tien Zurita MD [facility] [place] [address] 03/07/2024 10:40 AM EDT Office Visit Neurosurgery at [facility] [place] [address] Angel Hankins PA [facility] [place] [address] documented as of this encounter Visit Diagnoses Diagnosis Chronic migraine without aura without status migrainosus, not intractable Chronic migraine without aura, without mention of intractable migraine without mention of status migrainosus documented in this encounter
--- OUTSIDE RECORDS SUMMARY | 2024-02-12 18:09 | XMS_ITS | Encounter Summary ---
Author Organization [facility] [place] [address] Care Team Providers Care Dealership Manager Name Role Phone None Primary Care Provider Unavailabl e Encounter Details Date Type Department Care Team (Latest Contact Info) Description 08/01/2022 Travel Social History Tobacco Use Types Packs/Day [...] 03/07/2024 10:00 AM EDT Appointment XRay at [address] [place] [phone] Tien Zurita MD [facility] [place] [address] 03/07/2024 10:40 AM EDT Office Visit Neurosurgery at [facility] [place] [phone] Angel Hankins PA [facility] [place] [address] documented as of this encounter Visit Diagnoses Not on filedocumented in this encounter Care Teams Dealership Manager Relationship Specialty Start Date End Date None None PCP - General 08/01/22 08/01/22 documented as of this encounter
--- OUTSIDE RECORDS SUMMARY | 2024-02-12 18:09 | XMS_ITS | Encounter Summary ---
Author Organization [facility] [place] [address] Care Team Providers Care Sheet Rock Taper Name Role Phone Brunonunu Lena Nunu MEJIA Primary Care Provider [phone] Encounter Details Date Type Department Care Team (Late st Contact Info) Description 08/01/2022 10:40 PM EST Ancillary Procedure [place] [address] Social History Tobacco Use Types [...] 03/07/2024 10:00 AM EDT Appointment XRay at [address] [place] [address] Tien Zurita MD [facility] [address] 03/07/2024 10:40 AM EDT Office Visit Neurosurgery at [facility] [address] Angel Hankins PA [facility] [place] [address] documented as of this encounter Procedures Procedure Name Priority Date/Time Associated Diagnosis Comments REQUEST FOR 2ND READ CT CHEST ABDOMEN PELVIS STAT 08/01/2022 10:31 PM EST documented in this encounter Results * Request For 2nd Read CT Chest [...] who have questions please contact the health account executive healthcare that requested your imaging first. ? Electronically signed by: Angel Baker DO, [facility] ([phone]), at 08/02/2022 8:41 AM Narrative 08/02/2022 8:41 AM EST EXAMINATION: * ??REQUEST FOR 2ND READ CT CHEST ABDOMEN PELVIS * ??CT OF THE CHEST, ABDOMEN, AND PELVIS WITH INTRAVENOUS CONTRAST. CLINICAL HISTORY: 61-year-old female with left adnexal mass. ??History of hysterectomy and right oophorectomy. ??Solitary right kidney. ??Clinical concern for aneurysm. ??Request for second interpretation of outside imaging study. ?? * ??Sending Institution [facility] * ??Date of exam [id number] * ??I believe a reinterpretation of this exam may alter care of Patient. Yes TECHNIQUE: CT of the chest, abdomen, and pelvis was performed with intravenous contrast at [facility] on July 29, 2022. Helical [...] similar prior examination provided for comparison. FINDINGS: Hoop Driving Machine Operator Images: Noncontributory. CT OF THE CHEST: Lungs [...] of outside imaging study. * Sending Institution [facility] * Date of exam [id number] * I believe a reinterpretation of this exam may alter care of Patient.Yes TECHNIQUE: CT of the chest, abdomen, and pelvis was performed withintravenous contrast at [facility] on July 29, 2022. Helical CT images of the chest, abdomen, and pelvis were obtainedfollowing administration of intravenous contrast. Per report, the patient cerqytih271 mL Omnipaque 350 intravenous contrast. Oral contrast was not administered. Multiplanar reformats were performed in the sagittal and coronal planes. Maximum Intensity Projection (MIP) images were also reformatted. COMPARISON: There is no similar prior examination provided forcomparison. FINDINGS: Hoop Driving Machine Operator Images: Noncontributory. CT OF THE CHEST: Lungs [...] patients who have questions please contactthe health account executive healthcare that requested your imaging first. Electronically signed by: Angel Baker DO, [facility]([phone]), at 08/02/2022 8:41 AM Oumou Villar MD IMG OUTSIDE INTERPRE TATION ORDERABLES documented in this encounter Visit Diagnoses Not on filedocumented in this encounter Care Teams Sheet Rock Taper Relationship Specialty Start Date End Date Lena Womack, JACKIE PCP - General Family Medicine 08/02/22 documented as of this encounter
--- OUTSIDE RECORDS SUMMARY | 2024-02-12 18:09 | XMS_ITS | Encounter Summary ---
Author Organization [facility] [place] [address] Care Team Providers Care Grain Distributor Name Role Phone Unavailable Primary Care Provider Unavailabl e Reason for Visit * Reason Onset Date Comments Medication Refill 03/29/2016 Encounter Details Date Type Department Care Team (Late st Contact Info) Description 03/29/2016 Refill Neurology at [facility] [place] [phone] Daniela Monsalve MD [facility] [place] [place] [address] Social History Tobacco Use Types Packs/Day Years [...] 03/07/2024 10:00 AM EDT Appointment XRay at [address] [place] [phone] Tien Zurita MD [facility] [place] [address] 03/07/2024 10:40 AM EDT Office [place] [phone] Angel Hankins PA [facility] [place] [address] documented as of this encounter Visit Diagnoses Not on filedocumented in this encounter
--- OUTSIDE RECORDS SUMMARY | 2024-02-12 18:09 | XMS_ITS | Encounter Summary ---
Author Organization [facility] Address [facility] [place] [address] Care Team Providers Care Souvenir Street Vendor Name Role Phone Unavailable Primary Care Provider Unavailabl e Encounter Details Date Type Department Care Team (Latest Contact Info) Description 11/24/2015 10:00 AM EDT - 11/24/2015 11:59 PM EDT Hospital [place] [phone] Sasha Hernandez MD [facility] [place] [address] Abnormal finding on breast imaging Discharge Disposition: Home Social History Tobacco Use [...] dihydroergotamine (MIGRANAL) 0.5 mg/pump act. (4 mg/mL) [place], Non-Aerosol Prime the pump 4 times, Place [...] 10:00 AM EDT Appointment XRay at [address] [place] [address] Tien Zurita MD [facility] [place] [address] 03/07/2024 10:40 AM EDT Office Visit Neurosurgery at [facility] [place] [phone] Angel Hankins PA [facility] [place] [address] documented as of this encounter Procedures Procedure Name Priority Date/Time Associated Diagnosis Comments MAMMO CALL BACK DIAGNOSTIC ASIF WITHOUT CAD RIGHT Routine 11/24/2015 10:32 AM EDT Abnormal finding on breast imaging documented in this encounter Results * Mammo Call Back Dx Extra View Asif Without Cad Right (11/24/2015 10:32 AM EDT) Anatomical Region Laterality Modality Breast Right Mammography Impressions 11/24/2015 12:30 PM EDT BI-RADS 4, suspicious, biopsy should be considered. Right breast 12:00, 4 cm from the nipple, coarse heterogeneous calcifications and mildly pleomorphic calcification, suspicious. Differential diagnosis includes fat necrosis in the setting of prior reduction changes, cannot exclude DCIS. Second area of calcifications, inner and lower right breast, benign-appearing, BI-RADS 2. RECOMMENDATION: Stereotactic biopsy of the right breast, 12:00, 4 cm from the nipple. NOTE: The patient has been scheduled for this procedure. These findings and recommendations were discussed with the patient and her attendant . They concur. Narrative 11/24/2015 12:30 PM EDT EXAMINATION: MAMMO CALL BACK DIGITAL DX EXTRA VIEW ASIF WITHOUT CAD RIGHT CLINICAL HISTORY: abnormal mammo. 55-year-old female. TECHNIQUE: Spot magnification compression views, direct image capture, 2-D digital mammography, in CC and true lateral views. COMPARISON: 11/18/2015, multiple additional comparisons. FINDINGS: Within the upper right breast, at approximately 12:00, 4 cm from the nipple there is an area of coarse heterogeneous microcalcifications, mildly pleomorphic. The additional lower and medial breast area of calcifications, noted on screening examinations, favor dystrophic and/or punctate benign-appearing calcifications. Sasha CHATTERJEE MAMMO ORDERABLES documented in this encounter Visit Diagnoses Diagnosis Abnormal finding on breast imaging Other (abnormal) findings on radiological examination of breast documented in this encounter
--- OUTSIDE RECORDS SUMMARY | 2024-02-12 18:09 | XMS_ITS | Encounter Summary ---
Author Organization [facility] Address [facility] [place] [address] Care Team Providers Care Backer Up Name Role Phone Unavailable Primary Care Provider Unavailabl e Encounter Details Date Type Department Care Team (Latest Contact Info) Description 11/25/2015 1:35 PM EDT Hospital Encounter [place] [address] Hunter Vickers MD [facility] [place] [address] Abnormal findings on diagnostic imaging of breast [...] dihydroergotamine (MIGRANAL) 0.5 mg/pump act. (4 mg/mL) [place], Non-Aerosol Prime the pump 4 times, Place [...] 03/07/2024 10:00 AM EDT Appointment XRay at [address] [place] [address] Tien Zurita MD [facility] [place] [address] 03/07/2024 10:40 AM EDT Office [place] [phone] Angel Hankins PA [facility] [place] [address] documented as of this encounter Procedures Procedure Name Priority Date/Time Associated Diagnosis Comments MAMMO SPECIMEN IMAGING DURING BIOPSY Routine 11/25/2015 2:49 PM EDT Abnormal findings on diagnostic imaging of breast documented in this encounter Results * Mammo Specimen Imaging During Biopsy (11/25/2015 2:49 PM EDT) Anatomical Region Laterality Modality Breast [...] core biopsy specimens were obtained using a trinket Eviva 9g 20mm device. A specimen radiograph [...]
--- OUTSIDE RECORDS SUMMARY | 2024-02-12 18:09 | XMS_ITS | Encounter Summary ---
Author Organization [facility] [place] [address] Care Team Providers Care Arch Support Maker Name Role Phone Unavailable Primary Care Provider Unavailabl e Reason for Referral * Physical Therapy (Routine) - Closed Specialty Diagnoses / Procedures Referred By Cosmo cortez Referred To Contact Physical Therapy Diagnoses Osteoarthritis of patellofemoral joint Knee pain, bilateral Primary osteoarthritis of both knees Cori Patrick APRN [facility] [place] [address] Referral ID Status Reason Start Date Expiration Date V isits Requested Visits Authorized [id number] Closed Evaluate and Treat 04/30/2015 10/27/2015 24 24 Reason for Visit * Reason Comments Bilateral Knee Pain Bilat Knee Pain Encounter Details Date Type Department Care Team (Latest Contact Info) Description 04/30/2015 11:30 AM EST Office Visit [place] [address] Cori Patrick BARREL RAISER [facility] [place] [address] Primary osteoarthritis of both knees (Primary Dx); Osteoarthritis of patellofemoral joint; Knee pain, bilateral Social History Tobacco Use Types Packs/Day [...] Sign Reading Time Taken Comments Blood Pressure 145/83 04/30/2015 11:37 AM EST Pulse 73 04/30/2015 11:37 AM EST Temperature - - Respiratory Rate - - Oxygen Saturation - - Inhaled Oxygen Concentration - - Weight 80.7 kg (178 lb) 04/30/2015 11:37 AM EST verbal Height 165.1 cm (5' 5) 04/30/2015 11:37 AM EST verbal Body Mass Index 29.62 04/30/2015 11:37 AM EST documented in this encounter Progress Notes * Cori Patrick, BARREL RAISER - 04/30/2015 11:47 AM EST Arthroplasty History/Previous Knee Surgery: 1. None Chief Complaint: Chief Complaint Patient presents with ??? Bilateral Knee Pain Bilat Knee Pain . Planned follow up to monitor response to cortisone injections I.D.: Katheryn Carranza is a 54 y.o. year old female being seen today to discuss her bilateral knees following bilateral knee cortisone injections. She's had a good response to these injections. The hinged knee braces haven't been helpful as well. She has not started physical therapy yet. No interval falls injuries or infections. Her pain at present time is mild. No mechanical complaints, swelling or instability. No numbness or tingling. No lumbar radiculopathy complaints this time. Her chronic medical illnesses are otherwise stable and she's here for planned follow-up appointment. ROS: Denies fever, chills, nausea, vomiting, vision change, shortness of breath, chest pain, visionchanges, headaches, bowel or bladder problem, ear, nose, sinus problem, neuro or psychiatric, or endocrine disorder not addressed above. Patient's medications, allergies, past medical, surgical, social and family histories were reviewedand updated as appropriate. VITALS: BP Readings from Last 1 Encounters: 04/30/15 145/83 Pulse Readings from Last 1 Encounters: 04/30/15 73 Height: 165.1 cm (5' 5) (verbal) Weight - Scale: 80.74 kg (178 lb) (verbal) Body mass index is 29.62 kg/(m^2). PHYSICAL EXAM: General: This is a very pleasant 54-year-old female in no acute distress she is alert and oriented ??3 her affect is bright and appropriate. HEENT - normocephalic, atraumatic, sclera clear Chest: RR: 12. Non-labored. Orthopedic both knee exam: I have made the following determinations: Positional changes remain brisk. Gait is non-antalgic today. No assistive devices. Both knee with varus alignment. Straight leg capability is strong no extension lag noted. EHL/FHL 5/. She has today decreased pain and mild TTP at the both knee patellofemoral joint. Both knee range of motion proximally 0?? extension to approximately 120 degrees of flexion. No change in varus alignment. Both knees are stable to valgus varus stress. Imaging: Not indicated see previous notation regarding x-ray results. ASSESSMENT AND PLAN: Ms. Carranza is a 54 y.o. year old female with both knee moderate patellofemoral and medial compartment Osteoarthritis. She has had a good response to the aforementioned modalities including bilateral knee cortisone injections, and hinged knee braces. At this time I would recommend a comprehensive physical therapy program as directed in the medical record. Copy of order given to PT. I would like toreevaluate her progress in about 12 week's time. No x-rays. Smoking cessation advised. Pt agrees, questions solicited/answered, will return as scheduled and as needed for concerns or questions. Pt understands they may also call us prn for above. documented in this encounter Plan of Treatment Upcoming Encounters Date Type Department Care Team (Late st Contact Info) Description 03/07/2024 10:00 AM EDT Appointment XRay at [address] [place] [address] Tien Zurita MD [facility] [place] [address] 03/07/2024 10:40 AM EDT Office [place] [address] Angel Hankins PA [facility] [place] [address] Scheduled Referrals Name Type Priority Associated Diagnoses Orde r Schedule Referral to Physical Therapy Outpatient Referral Routine Osteoarthritis of patellofemoral joint Knee pain, bilateral Primary osteoarthritis of both knees Ordered: 04/30/2015 documented as of this encounter Visit Diagnoses Diagnosis Primary osteoarthritis of both knees- Primary Primary localized osteoarthrosis, lower leg Osteoarthritis of patellofemoral joint Osteoarthrosis, unspecified whether generalized or localized, lower leg Knee pain, bilateral Pain in joint, lower leg documented in this encounter
--- OUTSIDE RECORDS SUMMARY | 2024-02-12 18:09 | XMS_ITS | Encounter Summary ---
Author Organization [facility] [place] [address] Care Team Providers Care Shipping Weigher Name Role Phone Unavailable Primary Care Provider Unavailabl e Encounter Details Date Type Department Care Team (Latest Contact Info) Description 11/18/2015 12:27 PM EDT - 11/18/2015 11:59 PM EDT Hospital [place] [phone] Sailaja oRss APRN [address] [place] [address] Visit for screening mammogram Discharge Disposition: Home Social History Tobacco Use [...] dihydroergotamine (MIGRANAL) 0.5 mg/pump act. (4 mg/mL) [place], Non-Aerosol Prime the pump 4 times, Place [...] 03/07/2024 10:00 AM EDT Appointment XRay at [address] [place] [address] Tien Zurita MD [facility] [place] [address] 03/07/2024 10:40 AM EDT Office Visit Neurosurgery at [facility] [place] [address] Angel Hankins PA [facility] [place] [address] documented as of this encounter Procedures Procedure Name Priority Date/Time Associated Diagnosis Comments MAMMO SCREENING CAD AND ALEX BILATERAL Routine 11/18/2015 12:58 PM EDT Visit for screening mammogram documented in this encounter Results * Mammo Digital Bilateral Screening With CAD [...] required Sailaja Ross APRN IMG MAMMO ORDERABLES documented in this encounter Visit Diagnoses Diagnosis Visit for screening mammogram Other screening mammogram documented in this encounter
--- OUTSIDE RECORDS SUMMARY | 2024-02-12 18:09 | XMS_ITS | Encounter Summary ---
Author Organization [facility] [place] [address] Care Team Providers Care Stone Engraver Name Role Phone Unavailable Primary Care Provider Unavailabl e Encounter Details Date Type Department Care Team (Late st Contact Info) Description 02/24/2015 Orders [place] [phone] Dain Mabry Social History Tobacco Use Types Packs/Day Years [...] 10:00 AM EDT Appointment XRay at [address] [place] [phone] Tien Zurita MD [facility] [place] [place] [address] 03/07/2024 10:40 AM EDT Office [place] [address] Angel Hankins [facility] [address] documented as of this encounter Visit Diagnoses Not on filedocumented in this encounter
--- OUTSIDE RECORDS SUMMARY | 2024-02-12 18:10 | XMS_ITS | Encounter Summary ---
Author Organization [facility] [place] [address] Care Team Providers Care Color Card Maker Name Role Phone Unavailable Primary Care Provider Unavailabl e Reason for Visit * Reason Comments Follow-up S/P BBR dos 12/09/11 d rain removal Encounter Details Date Type Department Care Team (Latest Contact Info) Description 12/13/2011 3:00 PM EDT Clinical Support [place] [phone] NURSE, PLASTIC SURGERY Other specified aftercare following surgery (Primary Dx) Discharge Disposition: Home Social History Tobacco Use Types Packs/Day Years Used Date Smoking Tobacco: Former Cigarettes 0 06/10/1976 - 06/10/2010 Alcohol Use Standard Drinks/Week Comments Not Asked 0 (1 standard drink = 0.6 oz pur e alcohol) Sex and Gender Information Value Date Recorded Sex Assigned at Not on file Gender Identity Not on file Sexual Orientation Not on file documented as of this encounter Patient Instructions * Patient Instructions* Delaney Baker RN - 12/13/2011 4:16 PM EDT We have removed your drain(s) and applied a dressing. You may remove the dressing in 24 hours and shower. After showering, you may cover the drain site(s) with a bandaid. The drain site is typically closed in approximately three days. Please call the clinic with any questions or concerns. Welcome to [employer], your secure online access to your electronic medical record at [facility]. Using [place] [employer] you will be able to send messages to your providers, view your test results, renew prescriptions, schedule appointments, and much more. Follow these instructions to enter your personal [employer] account for the first time: 1. Start your internet browser and type [email or web address] into the address bar. 2. In the New User box on the right-hand side of the Welcome page click the link that states, ???I have an activation code.?? 3. On the Identification page, follow these steps: a) Enter your [employer] activation code: [email or web address] b) Expires: 01/27/12 04:16 PM IMPORTANT: This Activation Code will on the above mentioned date. If you do not sign up for [employer] by this date, you will need to request another activation code. c) Enter your date of , using the calendar tool provided. d) Enter your Zip code. e) Select ???submit?? to go to the next page. 4. On the Create Account page, follow these steps: a) Create a [employer] username. This can???t be changed, so choose one you won???t forget. b) Create a password that???s at least six characters long, and that contains at least two numbers.Your password can be changed at any time. Confirm your password by entering it once more. c) Enter your email address. This will be used to alert you to new information. Confirm your email address by entering it once more. d) Enter your security question. This will be used if you forget your password. e) Enter your security answer. Confirm your security answer by entering it once more. f) Select ???submit?? to view your electronic medical record. If you have any questions about [employer] or your Access Code, please call for [employer], for [place] or for [place]. If you need technical support, please e-mail [email or web address]. Remember, [employer] is NOT for urgent needs! Always dial 911 for medical emergencies. documented in this encounter Progress Notes * Delaney Baker RN - 12/13/2011 4:31 PM EDT Patient was seen by this board writer for removal of breast drains s/p a brooks pattern BBR on 12/09/11. The drains were removed without complication, drain sites cleansed with a wound cleanser and dry dressings reapplied - with instructions to leave this dressing in place for 24 hours. Client is pale, groggy, and sick to her stomach today. She reports she has been nauseated but denied vomiting. Ms Carranza states she has been experiencing shooting , electric shock pains at the left lateral breast and drain site, taking 2 percocet every 6 hours. Pain is 6/10 using percocet and ibuprofen She requested a refill of the narcotic pain reliever. We discussed using NSAIDS for nerve and swelling pain. Client has been taking ibuprofen 800mg , but not consistently. Client agreed to try takingibuprofen three times a day , reducing her use of narcotics. Both breasts are soft and equal in size. There is not sign of seroma or hematoma. Swelling is mild on the right and mild on the left. Ecchymosis is moderate on the right and moderate on the left. The incision lines are well approximated with Dermaflex intact. The NACs have good perfusion. Nipples are flush with NAC. Areolar incisions are approximated with no drainage. Dry dressings were replaced. A Surgical bra is fitted and in use. Katheryn Carranza was advised to drink extra water for the next few days to help reduce anesthesia effects and replace fluid loss. Increasing protein in the diet through high protein foods or drinks, such as Ensure, Resource or Boost was also recommended for the next 2-3 days, as long as the nutritional recommendations are not contraindicated. Instructions on drain site and incisional care, showering, pain control, and activity restrictions as well as parameters for normal post operative swelling and bruising were reviewed. Supplies: Super sponges: 4 Plan: follow up with Dr. Melo on 12/21/11 . documented in this encounter Plan of Treatment Upcoming Encounters Date Type Department Care Team (Late st Contact Info) Description 03/07/2024 10:00 AM EDT Appointment XRay at [address] [place] [address] Tien Zurita MD [facility] [place] [address] 03/07/2024 10:40 AM EDT Office Visit Neurosurgery at [facility] [place] [phone] Angel Hankins PA [facility] [place] [address] documented as of this encounter Visit Diagnoses Diagnosis Other specified aftercare following surgery- Primary documented in this encounter
--- OUTSIDE RECORDS SUMMARY | 2024-02-12 18:10 | XMS_ITS | Encounter Summary ---
[place] [address] Care Team Providers Care Sleeve Turner Name Role Phone Unavailable Primary Care Provider Unavailabl e Reason for Referral * Rehabilitation (Routine) - Complete - Unable to Contact Patient Specialty Diagnoses / Procedures Referred By Cosmo cortez Referred To Contact Orthopaedics Diagnoses Neck pain on left side Lucas Bergman MD [facility] [place] [address] [facility] [address] [place] [address] Referral ID Status Reason Start Date Expiration Date Visits Requested Visits Authorized [id number] Complete - Unable to Contact Patient Consult, Test & Treat 11/20/2013 05/19/2014 1 1 Reason for Visit * Reason Onset Date Comments Medication Refill 11/20/2013 Encounter Details Date Type Department Care Team (Late st Contact Info) Description 11/20/2013 [place] [address] [facility] [place] [address] Neck pain on left side (Primary Dx) Social History Tobacco Use Types Packs/Day Years Used Date Smoking Tobacco: Every Day Cigarettes 0.3 35 Smokeless Tobacco: Never Comments:3-4 Electric cigare ttes daily Alcohol Use Standard Drinks/Week Comments Not Asked [...] 03/07/2024 10:00 AM EDT Appointment XRay at [address] [place] [address] [facility] [place] [address] 03/07/2024 10:40 AM EDT Office Visit Neurosurgery at [facility] [place] [address] [facility] [place] [place] [address] Scheduled Referrals Name Type Priority Associated Diagnoses Order Schedule Referral to GAP Assessment Outpatient Referral Routine Neck pain on left side Ordered: 11/20/2013 documented as of this encounter Visit Diagnoses Diagnosis Neck pain on left side- Primary Cervicalgia documented in this encounter
--- OUTSIDE RECORDS SUMMARY | 2024-02-12 18:10 | XMS_ITS | Encounter Summary ---
Author Organization [facility] Address [facility] [place] [address] Care Team Providers Care House Principal Name Role Phone Unavailable Primary Care Provider Unavailabl e Encounter Details Date Type Department Care Team (Late st Contact Info) Description 07/28/2012 Orders Only Acute Pain Services [place] [address] Nara Chavez MD [facility] [place] [address] Social History Tobacco Use Types Packs/Day Years Used Date Smoking Tobacco: Every Day Cigarettes 0.5 35 Started: 06/10/1975; Last attempted to quit: 06/10/2010 Alcohol Use Standard Drinks/Week Comments Not [...] 10:00 AM EDT Appointment XRay at [address] [place] [phone] Tien Zurita MD [facility] [place] [address] 03/07/2024 10:40 AM EDT Office Visit Neurosurgery at [facility] [place] [address] Angel Hankins PA [facility] [place] [address] documented as of this encounter Procedures Procedure Name Priority Date/Time Associated Diagnosis Comments FILM LIBRARY STORAGE ONLY PAIN CLINIC C ARM Routine 07/28/2012 2:30 PM EST documented in this encounter Results * Film Library-storage only pain clinic C-arm (07/28/2012 2:30 PM EST) 07/28/2012 2:30 PM EST Narrative RAD - 11/30/2013 1:56 AM EDT This is a non-reportable exam. Procedure Note Gerson Mckenna - 11/30/2013 This is a non-reportable exam. Nara Chavez MD [place] FILM LIBRARY ORDERABLES [facility] [address] [facility]3]. [place] [address] documented in this encounter Visit Diagnoses Not on filedocumented in this encounter
--- OUTSIDE RECORDS SUMMARY | 2024-02-12 18:10 | XMS_ITS | Encounter Summary ---
Author Organization [facility] [place] [address] Care Team Providers Care Card Painter Name Role Phone Unavailable Primary Care Provider Unavailabl e Reason for Visit * Reason Comments Follow-up DOS 12/09/11 BBR Encounter Details Date Type Department Care Team (Late st Contact Info) Description 12/21/2011 1:00 PM EDT Office [place] [address] [facility] [place] [address] Breast hypertrophy (Primary Dx) Discharge Disposition: Home Social History [...] this encounter Patient Instructions * Patient Instructions* Pauly Melo MD - 12/21/2011 1:26 PM EDT 1. F/U in 6 weeks 2. Maintain support garments, post operative bra provided, wear for 5-6 weeks, ok to switch to sports bra after 6 weeks but no under wire bra. 3. Sun exposure avoidance 4. Sleep on your back 5. Ok to apply Vaseline or Bacitracin to scars along the nipples,do not apply along the incisions in the folds. 6. No bending, reaching above your head or lifting till 6 weeks post op 7. Start scar massage after 6 weeks documented in this encounter Progress Notes * Pauly Melo MD - 12/21/2011 1:16 PM EDT PLASTIC SURGERY POST OP NOTE Pauly Melo MD Primary Care Physician: SANTI FITZGERALD APRN Reason for visit: F/U status post procedure Date of surgery: 12/09/11 Procedure(s): Bilateral breast reduction Subjective: Pt reports she is doing well but is very sore specifically under her armpits. She has been using Ibuprofen and Aleve for her pain control and this is not working for her. She had an area of firmness along her scars. Complications: None reported Meds: Current outpatient prescriptions ordered prior to encounter Medication Sig Dispense Refill ??? OXYcodone-acetaminophen (PERCOCET) 5-325 mg per tablet Take 1-2 tablets by mouth every 6 hours as needed for Pain. 40 tablet 0 ??? multivitamin (THERAGRAN) tablet Take 1 tablet by mouth daily. ??? atenolol (TENORMIN) 50 mg tablet Take 50 mg by mouth daily. ??? busPIRone (BUSPAR) 15 mg tablet Take 15 mg by mouth 2 times daily. 1 tab in am and 1/2 tab at noon ??? cyclobenzaprine (FLEXERIL) 10 mg tablet Take 10 mg by mouth 3 times daily as needed. ??? pantoprazole (PROTONIX) 40 mg tablet Take 40 mg by mouth daily. ??? methylphenidate (CONCERTA) 18 mg CR tablet Take 36 mg by mouth every morning. ??? methylphenidate (CONCERTA) 27 mg CR tablet Take 27 mg by mouth every evening. ??? eszopiclone (LUNESTA) 3 mg Tab Take 3 mg by mouth nightly. ??? hydrochlorothiazide (HYDRODIURIL) 50 mg tablet Take 50 mg by mouth daily. ??? ketoconazole (NIZORAL) 2 % cream Apply topically 2 times daily. ??? ibuprofen (ADVIL;MOTRIN) 800 mg tablet Take 800 mg by mouth 3 times daily as needed. All: Pollen,micronized Examination: There were no vitals taken for this visit. Gen: WDWN, NAD Neuro: Alert, oriented, follows, Ambulates. HEENT: Perrl eomi fs Extrem: wwp, no c/e/e, no lesions, no rashes Bilateral breasts Incisions: CDI, healing well. No signs of infection, no seroma, no hematoma Symmetric in shape and volume,edema as expected to date. No collection, no erythema, no evidence of cellulitis. NAC sensate, good symmetry in size and elevation. SURGICAL PATHOLOGY ---Pathologic Diagnosis--- A - Right breast tissue, reduction mammoplasty (1,497 grams): 1. Focal mild usual ductal hyperplasia 2. Calcifications associated with benign ducts and lobules B - Left breast tissue, reduction mammoplasty (1,522 grams): 1. Mild usual ductal hyperplasia, apocrine metaplasia, and cysts 2. Calcifications associated with benign ducts and lobules Impression: Katheryn Carranza is a 51 y.o. female was seen today for follow-up after the above procedure. Please see the operative note for details. She is doing well without complaints. Plan: 1. F/U in 6 weeks 2. Maintain support garments, post operative bra provided, wear for 5-6 weeks, ok to switch to sports bra after 6 weeks but no under wire bra. 3. Sun exposure avoidance 4. Sleep on your back 5. Ok to apply Vaseline or Bacitracin to scars along the nipples,do not apply along the incisions in the folds. 6. No bending, reaching above your head or lifting till 6 weeks post op 7. Start scar massage after 6 weeks Sylvia Jain, am acting as scribe for Dr Melo. All work documented was performed by Dr Melo. documented in this encounter Plan of Treatment Upcoming Encounters Date Type Department Care Team (Late st Contact Info) Description 03/07/2024 10:00 AM EDT Appointment XRay at [address] [place] [address] [facility] [place] [address] 03/07/2024 10:40 AM EDT Office Visit Neurosurgery at [facility] [place] [address] [facility] [place] [place] [address] documented as of this encounter Visit Diagnoses Diagnosis Breast hypertrophy- Primary Hypertrophy of breast documented in this encounter
--- OUTSIDE RECORDS SUMMARY | 2024-02-12 18:10 | XMS_ITS | Encounter Summary ---
Author Organization [facility] [place] [address] Care Team Providers Care Leadlighter Name Role Phone Unavailable Primary Care Provider Unavailabl e Reason for Visit * Reason Comments Pain, Chronic lower neck Encounter Details Date Type Department Care Team (Late st Contact Info) Description 12/26/2012 9:45 AM EDT Follow-Up [place] [phone] Randy Garcia MD [address] [place] [address] Randy Garcia MD [facility] [place] [address] Occipital neuralgia (Primary Dx); Myofascial pain Discharge Disposition: Home Social History Tobacco Use [...] Sign Reading Time Taken Comments Blood Pressure 134/90 12/26/2012 10:35 AM EDT Pulse 76 12/26/2012 10:35 AM EDT Temperature - - Respiratory Rate - - Oxygen Saturation 100% 12/26/2012 10:35 AM EDT Inhaled Oxygen Concentration - - Weight 79.4 kg (175 lb) 12/26/2012 10:35 AM EDT Height 166.4 cm (5' 5.5) 12/26/2012 10:35 AM ED T Body Mass Index 28.68 12/26/2012 10:35 AM EDT documented in this encounter Procedure Notes * Rnady Garcia MD - 12/26/2012 10:48 AM EDTAssociated Order(s): NERVE BLOCK - OCCIPITAL Procedure(s): NERVE BLOCK - OCCIPITAL Pre-Procedure Diagnose(s): Occipital neuralgia; Myofascial pain Occipital Nerve Block Date of Service: 12/26/2012 Patient: Katheryn Carranza 1960 52 y.o. female Provider: RANDY GARCIA MD Katheryn Carranza has been referred to the [facility] for a Occipital Nerve Block and TPI of bilateral lower neck and trapezius. Ms. Carranza presents to the Pain Clinic today for an Occipital Nerve Block. Ms. Carranza is complaining of bilateral occipital headache that begins at the occipital protuberance without radiation. She has had 2 previous series of ONB and TPI and she gets 2 weeks of decreased pain. Physical Examination: Filed Vitals: 12/26/12 1035 BP: 134/90 Pulse: 76 NAD, appropriate. normal affect Procedure Ms. Carranza was interviewed and examined. The risks and benefits of the injection including but not limited to bleeding, infection, nerve irritation/damage, worsening of headache, intra-arterial injection, bruising, pneumothorax and seizure were discussed. All risks, benefits and options were discussed, which Ms. Carranza seemed to understand and informed consent was signed. Ms. Carranza sat in a chair with her head flexed. The point of tenderness at the midpoint between theoccipital notch and the right mastoid process was palpated. The skin was prepped in sterile fashionwith Chlorhexidine. After palpation and location of the right greater occipital nerve groove and the occipital arterial pulse, a 1 1/2 inch 25G needle was placed just medial to the occipital arterial pulse, after a negative aspiration, a total of 4.0 ml of Bupivicaine .25% with depomedrol 20 mg. was injected. Ms. Carranza tolerated the procedure well. There was no heme, paresthesias, or CSF encountered at anypoint during the injection. The needle was removed, and hemostasis was obtained. The procedure was then repeated on the left. (4.0 ml of Bupivicaine .25% with depomedrol 20 mg. wasinjected. ) TPI The area of the trigger points Were identified and the skin prepped with chlorhexidine and the chlorhexidine allowed to dry. Next, a 25 gauge 1.5 inch needle was placed in the area of the trigger point. Once reproduction of the pain was elicited and negative aspiration confirmed, the trigger point was injected and the needle removed. The patient did tolerate the procedure well and there were no apparent complications. There were no changes in motor or sensory exam. Medication used: 10 ml of bupivacaine 0.25% without depomedrol. The patient has had TPI twice in November with steroids. Trigger points injected: 6 Trigger point(s) location(s): Bilateral trapezius and splenius capitus, splenius cervicus Assessment and Plan: ~ Repeat prn The patient was then discharged home in good condition. No apparent complications. Ms. Carranza seemed to have some relief from this procedure. Preprocedure pain level: 10/10 Postprocedure pain level: 5/10 Assessment and Plan: If pain recurs within 4 months return for C2-3 MBB with fluoroscopic guidance. The patient has had a trial of repeated greater and lesser occipital nerve blocks and has not had sustained relief. RANDY GARCIA MD documented in this encounter Plan of Treatment Upcoming Encounters Date Type Department Care Team (Late st Contact Info) Description 03/07/2024 10:00 AM EDT Appointment XRay at [address] [place] [address] EchtTien MD [facility] [place] [place] [address] 03/07/2024 10:40 AM EDT Office Visit Neurosurgery at [facility] [place] [address] Angel Hankins PA [facility] [place] [address] Scheduled Orders Name Type Priority Associated Diagnoses Orde r Schedule TRIGGER POINT INJECTION - 3 OR 4 MUSCLES Neurology Routine Occipital neuralgia Myofascial pain Ordered: 12/26/2012 documented as of this encounter Procedures Procedure Name Priority Date/Time Associated Diagnosis Comments NERVE BLOCK - OCCIPITAL Routine 12/26/2012 11:20 AM EDT Occipital neuralgia Myofascial pain documented in this encounter Results * NERVE BLOCK - OCCIPITAL (12/26/2012 11:20 AM EDT) Narrative Randy Garcia MD - 12/26/2012 11:20 AM EDT Randy Garcia MD ? 12/26/2012 11:20 AM Occipital Nerve Block Date of Service: 12/26/2012 Patient: ?Katheryn Carranza ? 1960 ?? 52 y.o. ??female Provider: ?RANDY GARCIA MD Katheryn Carranza ??has been referred to the [facility] for a Occipital Nerve Block and TPI of bilateral lower neck and trapezius. Ms. Carranza presents to the Pain Clinic today for an Occipital Nerve Block. ?? Ms. Carranza is complaining of bilateral occipital headache that begins at the occipital protuberance without radiation. ??She has had 2 previous series of ONB and TPI and she gets 2 weeks of decreased pain. Physical Examination: Filed Vitals: 12/26/12 1035 BP: 134/90 Pulse: 76 ??NAD, appropriate. ??normal affect Procedure Ms. Carranza was interviewed and examined. ??The risks and benefits of the injection including but not limited to bleeding, infection, nerve irritation/damage, worsening of headache, intra-arterial injection, bruising, pneumothorax and seizure were discussed. ??All risks, benefits and options were discussed, which Ms. Carranza seemed to understand and informed consent was signed. Ms. Carranza sat in a chair with her head flexed. ??The point of tenderness at the midpoint between the occipital notch and the right ??mastoid process was palpated. ??The skin was prepped in sterile fashion with Chlorhexidine. ??After palpation and location of the right greater occipital nerve groove and the occipital arterial pulse, a 1 1/2 inch 25G needle was placed just medial to the occipital arterial pulse, after a negative aspiration, a total of 4.0 ml of Bupivicaine .25% with depomedrol 20 mg. was injected. Ms. Carranza tolerated the procedure well. ??There was no heme, paresthesias, or CSF encountered at any point during the injection. ??The needle was removed, and hemostasis was obtained. ?? The procedure was then repeated on the left. (4.0 ml of Bupivicaine .25% with depomedrol 20 mg. was injected. ) TPI The area of the trigger points ??Were identified and the skin prepped with chlorhexidine and the chlorhexidine allowed to dry. Next, a 25 gauge 1.5 inch needle was placed in the area of the trigger point. Once reproduction of the pain was elicited and negative aspiration confirmed, the trigger point was injected and the needle removed. The patient did tolerate the procedure well and there were no apparent complications. There were no changes in motor or sensory exam. Medication used: 10 ml of bupivacaine 0.25% without depomedrol. The patient has had TPI twice in November with steroids. Trigger points injected: 6 Trigger point(s) location(s): Bilateral trapezius and splenius capitus, splenius cervicus Assessment and Plan: ~ Repeat prn The patient was then discharged home in good condition. No apparent ??complications. Ms. Carranza seemed to have some relief from this procedure. Preprocedure pain level: 10/10 Postprocedure pain level: 5/10 Assessment and Plan: If pain recurs within 4 months return for C2-3 MBB with fluoroscopic guidance. The patient has had a trial of repeated greater and lesser occipital nerve blocks and has not had sustained relief. RANDY GARCIA MD Procedure Note Randy Garcia MD - 12/26/2012 10:48 AM EDT Occipital Nerve Block Date of Service: 12/26/2012 Patient: Katheryn Carranza 1960 52 y.o. female Provider: RANDY GARCIA MD Katheryn Carranza has been referred to the [facility] for aOccipital Nerve Block and TPI of bilateral lower neck and trapezius. Ms. Carranza presents to the Pain Clinic today for an Occipital Nerve Block.Ms. Carranza is complaining of bilateral occipital headache that begins atthe occipital protuberance without radiation. She has had 2 previousseries of ONB and TPI and she gets 2 weeks of decreased pain. Physical Examination: Filed Vitals: 12/26/12 1035 BP: 134/90 Pulse: 76 NAD, appropriate. normal affect Procedure Ms. Carranza was interviewed and examined. The risks and benefits of theinjection including but not limited to bleeding, infection, nerveirritation/damage, worsening of headache, intra-arterial injection,bruising, pneumothorax and seizure were discussed. All risks, benefitsand options were discussed, which Ms. Carranza seemed to understand andinformed consent was signed. Ms. Carranza sat in a chair with her head flexed. The point of tendernessat the midpoint between the occipital notch and the right mastoid processwas palpated. The skin was prepped in sterile fashion with Chlorhexidine.After palpation and location of the right greater occipital nerve grooveand the occipital arterial pulse, a 1 1/2 inch 25G needle was placed justmedial to the occipital arterial pulse, after a negative aspiration, atotal of 4.0 ml of Bupivicaine .25% with depomedrol 20 mg. was injected. Ms. Carranza tolerated the procedure well. There was no heme, paresthesias,or CSF encountered at any point during the injection. The needle wasremoved, and hemostasis was obtained. The procedure was then repeated on the left. (4.0 ml of Bupivicaine .25%with depomedrol 20 mg. was injected. ) TPI The area of the trigger points Were identified and the skin prepped withchlorhexidine and the chlorhexidine allowed to dry. Next, a 25 gauge 1.5inch needle was placed in the area of the trigger point. Once reproductionof the pain was elicited and negative aspiration confirmed, the triggerpoint was injected and the needle removed. The patient did tolerate the procedure well and there were no apparentcomplications. There were no changes in motor or sensory exam. Medication used: 10 ml of bupivacaine 0.25% without depomedrol. Thepatient has had TPI twice in November with steroids. Trigger points injected: 6 Trigger point(s) location(s): Bilateral trapezius and splenius capitus,splenius cervicus Assessment and Plan: ~ Repeat prn The patient was then discharged home in good condition. No apparentcomplications. Ms. Carranza seemed to have some relief from this procedure. Preprocedurepain level: 10/10 Postprocedure pain level: 5/10 Assessment and Plan: If pain recurs within 4 months return for C2-3 MBB with fluoroscopicguidance. The patient has had a trial of repeated greater and lesseroccipital nerve blocks and has not had sustained relief. RANDY GARCIA MD Randy Garcia MD NEUROLOGY ORDERABLES documented in this encounter Visit Diagnoses Diagnosis Occipital neuralgia- Primary Other syndromes affecting cervical region Myofascial pain Mylagia and myositis, unspecified documented in this encounter
--- OUTSIDE RECORDS SUMMARY | 2024-02-12 18:10 | XMS_ITS | Encounter Summary ---
Author Organization [facility] [place] [address] Care Team Providers Care Website/Blog Editor Name Role Phone Unavailable Primary Care Provider Unavailabl e Encounter Details Date Type Department Care Team (Late st Contact Info) Description 07/31/2012 Telephone [place] [address] Lucas Bergman MD [facility] [place] [address] Social History Tobacco Use Types Packs/Day Years [...] encounter Miscellaneous Notes * Telephone Encounter - Ava Callaway - 07/31/2012 1:44 PM EST 07/31/12 1:46pm Ms. Grande called asking if she could use the Lidocaine Patch prescribed by her PCP in the area ofher pain before she has her Radiofrequency. Message relayed to Dr. Bergman and he indicate that it was fine for Ms. Grande to use the Lidocaine Patch. Ava Callaway (scribed for Dr. Lucas Bergman) * Telephone Encounter - Ava Callaway - 07/31/2012 12:52 PM EST [facility] Post-Procedure Phone Note Patient: Katheryn Carranza [phone] Post-procedure phone call from patient to report her response to the cervical medial branch block procedure performed on 07/28/12 in the [facility] by Nara Chavez MD. Patient reports that after the procedure she experienced: _x_ Post-procedure pain has been reduced by __50__%. If pain is reduced, it lasted: _x_ 24 hours or greater (patient reported 3 days) Based on the information provided above and after discussion with the patient, the following actions will be taken: _x_ Patient meets criteria for radiofrequency treatment and would like to proceed with a left 3 level cervical RF, C3, C4, C5 (C3-4, C4-5 facets) Radiofrequency procedure with Lucas Bergman MD. Patient on anticoagulant medication: _x_no Patient has pacemaker/defibrillator: No Patient was transferred Patient has the appropriate phone number and understands that she may contact the Pain Management Center at any time with questions or concerns. Ava Callaway (scribed for Dr. Lucas Bergman) documented in this encounter Plan of Treatment Upcoming Encounters Date Type Department Care Team (Late st Contact Info) Description 03/07/2024 10:00 AM EDT Appointment XRay at [address] [place] [address] Tien Zurita MD [facility] [place] [address] 03/07/2024 10:40 AM EDT Office Visit Neurosurgery at [facility] [place] [address] Angel Hankins PA [facility] [place] [address] documented as of this encounter Visit Diagnoses Not on filedocumented in this encounter
--- OUTSIDE RECORDS SUMMARY | 2024-02-12 18:10 | XMS_ITS | Encounter Summary ---
[place] [address] Care Team Providers Care Chief Yeoman Name Role Phone Unavailable Primary Care Provider Unavailabl e Encounter Details Date Type Department Care Team (Late st Contact Info) Description 02/12/2013 [place] [address] Vicenta Sparks, RN Social History Tobacco Use Types Packs/Day [...] encounter Miscellaneous Notes * Telephone Encounter - Vicenta Sparks, RN - 02/12/2013 1:23 PM EDT Fluoroscopy Procedure Request Procedure Requested: cervical medial branch block. Patient met with Dr. Garcia in f/u to discuss further options for pain relief as the previous trigger point injections were not beneficial. In Dr. Garcia' notes, she recommended a CMBB. Date(s) of Last Procedure: 09/08/12 Patient taking anticoagulants? __X_ No ___ Yes Patient has pacemaker/defibrillator: No Changes in usual pain pattern or pertinent recent trauma or surgery? __x_ No, patient will be contacted by wrist hemmer to make appointment for requested procedure. ___ Yes, patient referred for re-evaluation by referring provider. Patient's questions regarding requested procedure were answered and patient verbalized understanding. Patient knows how to contact the Pain Management Center and understands that they may do so at any time should they have further questions or concerns. Vicenta Spraks RN documented in this encounter Plan of Treatment Upcoming Encounters Date Type Department Care Team (Late st Contact Info) Description 03/07/2024 10:00 AM EDT Appointment XRay at [address] [place] [address] Tien Zurita MD [facility] [place] [address] 03/07/2024 10:40 AM EDT Office Visit Neurosurgery at [facility] [place] [phone] Angel Hankins PA [facility] [place] [address] documented as of this encounter Visit Diagnoses Not on filedocumented in this encounter
--- OUTSIDE RECORDS SUMMARY | 2024-02-12 18:10 | XMS_ITS | Encounter Summary ---
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 Phone Unavailable Primary Care Provider Unavailabl e Reason for Referral * Consultation (Routine) - Closed Specialty Diagnoses / Procedures Referred By Cosmo cortez Referred To Contact Neurology Diagnoses Cervical spondylosis without myelopathy Bilateral occipital neuralgia Rita Garcia MD [facility] [place] [address] [facility] Neurology [address] [place] [phone] Referral ID Status Reason Start Date Expiration Date V isits Requested Visits Authorized [id number] Closed Consult, Test & Treat 09/25/2014 09/25/2015 1 1 Reason for Visit * Reason Comments Pain Management Cervicalgia Encounter Details Date Type Department Care Team (Late st Contact Info) Description 09/25/2014 7:45 AM EDT Follow-[place] [address] Rita Garcia MD [address] [place] [address] Rita Garcia MD [facility] [place] [address] Cervical spondylosis without myelopathy; Bilateral occipital neuralgia Discharge Disposition: Home Social History Tobacco Use Types Packs/Day Years Used Date Smoking Tobacco: Every Day Cigarettes 0.5 35 Smokeless Tobacco: Never Comments:3-4 Electric cigare ttes daily Alcohol Use Standard Drinks/Week Comments No 0 (1 standard drink = 0.6 oz pur e alcohol) denies h/o ETOH abuse Sex and Gender Information Value Date Recorded Sex Assigned at Not on file Gender Identity Not on file Sexual Orientation Not on file documented as of this encounter Last Filed Vital Signs Vital Sign Reading Time Taken Comments Blood Pressure 146/99 09/25/2014 8:53 AM EDT Pulse 87 09/25/2014 8:53 AM EDT Temperature - - Respiratory Rate - - Oxygen Saturation 98% 09/25/2014 8:53 AM EDT Inhaled Oxygen Concentration - - Weight 87.5 kg (193 lb) 09/25/2014 8:53 AM EDT Height 166.4 cm (5' 5.5) 09/25/2014 8:53 AM EDT Body Mass Index 31.63 09/25/2014 8:53 AM EDT documented in this encounter Progress Notes * Rita Garcia MD - 09/25/2014 8:52 AM EDT Katheryn Carranza is a 53 y.o. female who returns for reevaluation. Subjective Katheryn Carranza is a 53 y.o. female right handed, who presents today for evaluation of neck pain. The patient has had symptoms for many years. She had a breast reduction which they thought may help her pain, but it did not. The pain is left greater than right. The pain is with radiation to bilateral neck base. and with radiation to left fingers (all), left arm -posterior. It also radiates from the occiput to the top of her head, bilaterally. The patient feels that her pain has been increasing. The neck pain is equivalent in intensity to the suboccipital pain with radiation. The arm pain is less than the neck and occipital pain. The patient describes their pain as aching or burning and occurs all of the time. Symptoms are exacerbated by flexion and extension,rotational, manual/sedentary work, lifting. MEDICATIONS: Current: - neurontin 300 mg TID. It seemed to help the paresthesias; it did not decrease the pain. -celebrex without relief. I had recommended a change to another NSAID, but this was not changed. - amitriptyline. She is not noting any change in pain. She has some difficulty falling asleep, but can sleep through the night. Trialed: -prescription NSAIDS and muscle relaxers (skelaxin) without relief. INTERVENTIONS TRIALED: - TPI and occipital nerve blocks-helpful for a couple of weeks. She has not had an injection since 12/2012. -Left cervical MBNRF C4,5,6; distant-she does not recall if it was helpful. EVALUATIONS: -Neurology: about one year ago. She did not receive medication. According to the patient, it seems that they may have said her pain was cervicogenic. IMAGING: - MRI and plain films of the Cervical spine. The results are reviewed today. At the last visit, it was felt that the patient may have facetogenic pain. She underwent DiagnosticCervical Medial Branch Nerve Blocks left C-2, C-3 and C-4. (Facet joint levels C2-3, C3-4 ) 09/11/14.She had 40 % relief. She did not meet criteria for confirmatory blocks. She had difficulty assessing the pain. PAST MEDICAL HISTORY: Past Medical History Diagnosis Date ??? Neck pain on left side 07/04/2012 ??? Hypertension ??? Tobacco abuse ??? ARCHANA (generalized anxiety disorder) ??? ADD (attention deficit disorder) PAST SURGICAL HISTORY: Past Surgical History Procedure Laterality Date ??? Reduction of large breast 12/09/2011 REDUCTION MAMMOPLASTY, EVA performed by DEMETRA SOMMERS at [facility] MA[facility] OR ??? Hysterectomy ALLERGIES: Allergenic extracts; Tramadol; and Zoloft MEDICATIONS: Current Outpatient Prescriptions Medication Sig Dispense Refill ??? gabapentin (NEURONTIN) 300 mg Capsule Take 300 mg by mouth 3 times daily. ??? amitriptyline (ELAVIL) 10 mg Tablet Take 10 mg by mouth nightly. ??? celecoxib (CELEBREX) 200 mg Capsule Take 200 mg by mouth daily. ??? tiZANidine (ZANAFLEX) 4 mg Tablet Take 4 mg by mouth daily. ??? estradiol (ESTRACE) 1 mg tablet Take 1 mg by mouth daily. ??? metaxalone (SKELAXIN) 800 mg tablet Take 800 mg by mouth 3 times daily. ??? baclofen (LIORESAL) 10 mg tablet [...] % cream Apply topically 2 times daily. No current facility-administered medications for this visit. PHYSICAL EXAM: BP 146/99 Pulse 87 Ht 166.4 cm (5' 5.5) Wt 87.544 kg (193 lb) BMI 31.62 kg/m2 SpO2 98% Physical Exam Constitutional: She is oriented to person, place, and time. She appears well- developed and well-nourished. Neurological: She is alert and oriented to person, place, and time. Bilateral suboccipital tenderness, left greater than right. No evidence of erythema, drainage or swelling at previous injection sites. Psychiatric: She has a normal mood and affect. Her behavior is normal. Judgment and thought contentnormal. RADIOLOGIC DATA: I have independently visualized the following studies : MRI: 07/17/14 CLINICAL HISTORY: neck pain cervical radiculitis increasing symptoms TECHNIQUE: MRI of the cervical spine was performed without contrast, radiculopathy protocol COMPARISON: MRI cervical spine 09/29/2012 FINDINGS: Alignment is normal. The regional bone marrow is normal in signal. The vertebral body heights are maintained. The cervical cord is normal in signal and caliber. The prevertebral soft tissues are normal in thickness. Findings at individual levels: C2-C3: No spinal canal stenosis. Right greater than left facet arthropathy and uncovertebral osteophytes contributes to moderate left neural foraminal stenosis. C3-C4: Posterior disc osteophyte complex and large left uncovertebral osteophyte mild-moderately left spinal canal and flatten the ventral cord. Left greater than right facet arthropathy contributes to moderate to severe left and mild right neural foraminal stenosis. C4-C5: Posterior disc osteophyte complex and right larger than left uncovertebral osteophyte contribute to narrowing spinal canal, moderate on the right and mild on the left. Facet arthropathy contributes to mild left and moderate right neural foraminal stenosis. C5-C6: Small posterior disc osteophyte complex contributes to mild spinal canal stenosis. Facet arthropathy contributes to mild left neural foraminal stenosis. C6-C7: Posterior disc osteophyte complex indents the ventral thecal sac. Buckling of the ligamentum flavum contributes to moderate spinal canal stenosis. Small uncovertebral osteophytes and mild facet arthropathy contribute to mild to moderate bilateral neural foraminal stenosis, left greater than right. C7-T1: No significant spinal canal or neural foraminal stenosis. IMPRESSION IMPRESSION: Mid cervical spondylosis with multilevel moderate spinal canal stenosis as detailed above. Multilevel neural foraminal stenosis, moderate to severe on the left at C3-C4. ASSESSMENT: 1. Cervical spondylosis without myelopathy 2. Bilateral occipital neuralgia Assessment The patient has longstanding neck pain, upper extremity pain and symptoms consistent with occipitalneuralgia. Recent MRI and plain films reviewed at the last visit showed that there may have been some worsening of degenerative changes at C2-3, which may be responsible for headache symptoms. The patient has unchanged cervical spondylosis at multiple levels. The patient has some upper extremity symptoms, but headache symptoms are more predominant. She doeshave central cervical stenosis as well. The patient underwent left C2,3,4 MBB 09/11/14 with only 40% relief. Symptoms are worse on the left and this side was treated first. We discussed having the patient evaluated at the [facility]. She may be a candidate for botox. I would not start opioids at this time. PLAN: 1. Evaluation at [facility]. 2. Continue Amitriptyline for use at night for sleep and pain. 3. Follow up with Dr. Garcia as needed. Rita Garcia MD documented in this encounter Plan of Treatment Upcoming Encounters Date Type Department Care Team (Late st Contact Info) Description 03/07/2024 10:00 AM EDT Appointment XRay at [address] [place] [address] Tien Zurita MD [facility] [place] [address] 03/07/2024 10:40 AM EDT Office Visit Neurosurgery at [facility] [place] [address] Angel Hankins PA [facility] [place] [address] Scheduled Referrals Name Type Priority Associated Diagnoses Orde r Schedule Referral to Neurology Outpatient Referral Routine Cervical spondylosis without myelopathy Bilateral occipital neuralgia Ordered: 09/25/2014 documented as of this encounter Visit Diagnoses Diagnosis Cervical spondylosis without myelopathy Bilateral occipital neuralgia Other syndromes affecting cervical region documented in this encounter
--- OUTSIDE RECORDS SUMMARY | 2024-02-12 18:10 | XMS_ITS | Encounter Summary ---
[place] [address] Care Team Providers Care Corrections Sergeant Name Role Phone Unavailable Primary Care Provider Unavailabl e Reason for Referral * MRI/CAT Scan (Routine) - Specialty Diagnoses / Procedures Referred By Cosmo cortez Referred To Contact Radiology Diagnoses Carpal tunnel syndrome, bilateral Procedures MRI Brain With/WO Contrast Daniela Monsalve MD [facility] [place] [address] [place] [address] Referral ID Status Reason Start Date Expiration Date V isits Requested Visits Authorized [id number] 03/03/2015 03/02/2016 1 1 Reason for Visit * Reason Comments Headache Encounter Details Date Type Department Care Team (Late st Contact Info) Description 02/24/2015 12:45 PM EDT [place] [address] Daniela Monsalve MD [facility] [place] [address] Daniela Monsalve MD [facility] [place] [address] Intractable migraine with aura without status migrainosus (Primary Dx); Carpal tunnel syndrome, bilateral Discharge Disposition: Home [...] Sign Reading Time Taken Comments Blood Pressure 125/95 02/24/2015 1:02 PM EDT Pulse 80 02/24/2015 1:02 PM EDT Temperature - - Respiratory Rate - - Oxygen Saturation - - Inhaled Oxygen Concentration - - Weight 84.4 kg (186 lb) 02/24/2015 1:02 PM EDT Height 166.4 cm (5' 5.5) 02/24/2015 1:02 PM EDT Body Mass Index 30.48 02/24/2015 1:02 PM EDT documented in this encounter Patient Instructions * Patient Instructions* Daniela Monsalve MD - 02/24/2015 2:22 PM EDT Images from the original note were not included. Office Number: (Rebekah - [place]) Clinic nurse number (for most issues) (Elyssa) [...] appointment please. Diagnosis: Chronic Migraine without Aura Medication overuse Headache STOP these treatments: Tylenol Sumatriptan Do not take over the counter medications For Headache Prevention: Botox prior authorization being requested - For mild to moderate CASTELLANOS Naproxen [...] - For rescue Phenergan 25mg -50mg suppository Tests: MRI brain with and without contrast LABS: Thyroid function studies # Carpal Tunnel Syndrome EMG and Nerve conduction studies Splints for both wrist to be warn at night Follow-up with Dr. Monsalve in 8-10 weeks Please call Mari at on 02/26/2015 If you get the voicemail Please leave your name, that you received bilateral occipital nerve blocks on 02/24/2015 Please let us know if there has been a changed your headache frequency, % improvement. Note any side effects and let us know if you require a call back Thank you [facility] Carpal Tunnel Syndrome: After Your Visit Your Care Instructions Carpal tunnel syndrome is a nerve problem that can cause tingling, numbness, weakness, or pain in the fingers, thumb, and hand. The median nerve and several tough tissues called tendons run through aspace in the wrist called the carpal tunnel. The repeated hand motions used in work and some hobbies and sports can put pressure on the nerve. and several conditions, including diabetes, arthritis, and an underactive thyroid, also can cause carpal tunnel syndrome. You may be able to limit an activity or do it differently to reduce your symptoms. You also can take other steps to feel better. If your symptoms are mild, 1 to 2 weeks of home treatment are likely to ease your pain. Surgery is needed only if other treatments do not work. Follow-up care is a wood part of your treatment and safety. Be sure to make and go to all appointments, and call your doctor if you are having problems. It???s also a good idea to know your test results and keep a list of the medicines you take. How can you care for yourself at home? ?? If possible, stop or reduce the activity that causes your symptoms. If you cannot stop the activity, take frequent breaks to rest and stretch or change hand positions to do a task. Try switching hands, such as when using a computer mouse. ?? Try to avoid bending or twisting your wrists. ?? Take anti-inflammatory medicines to reduce pain and swelling. These include ibuprofen (Advil, Motrin) and naproxen (Aleve). Read and follow all instructions on the label. ?? If your doctor prescribes corticosteroid medicine to help reduce pain and swelling, take it exactly as prescribed. Call your doctor if you think you are having a problem with your medicine. ?? Put ice or a cold pack on your wrist for 10 to 20 minutes at a time to ease pain. Put a thin cloth between the ice and your skin. ?? If your doctor or physical therapist tells you to wear a wrist splint, wear it as directed to keep your wrist in a neutral position. This also eases pressure on your median nerve. ?? Ask your doctor whether you should have physical or occupational therapy to learn how to do tasks differently. ?? Try a yoga class to stretch your muscles and build strength in your hands and wrists. Yoga has been shown to ease carpal tunnel symptoms. To prevent carpal tunnel ?? When working at a computer, keep your hands and wrists in line with your forearms. Hold your elbows close to your sides. Take a break every 10 to 15 minutes. ?? Try these exercises: ?? Warm up: Rotate your wrist up, down, and from side to side. Repeat this 4 times. Stretch your fingers far apart, relax them, then stretch them again. Repeat 4 times. Stretch your thumb by pulling it back gently, holding it, and then releasing it. Repeat 4 times. ?? Prayer stretch: Start with your palms together in front of your chest just below your chin. Slowly lower your hands toward your waistline while keeping your hands close to your stomach and your palms together until you feel a mild to moderate stretch under your forearms. Hold for 10 to 20 seconds. Repeat 4 times. ?? Wrist flexor stretch: Hold your arm in front of you with your palm up. Bend your wrist, pointingyour hand toward the floor. With your other hand, gently bend your wrist further until you feel a mild to moderate stretch in your forearm. Hold for 10 to 20 seconds. Repeat 4 times. ?? Wrist extensor stretch: Repeat the steps for the wrist flexor stretch, but begin with your extended hand palm down. ?? Squeeze a rubber exercise ball several times a day to keep your hands and fingers strong. ?? Avoid holding objects (such as a book) in one position for a long time. When possible, use your whole hand to grasp an object. Using just the thumb and index finger can put stress on the wrist. ?? Do not smoke. It can make this condition worse by reducing blood flow to the median nerve. If you need help quitting, talk to your doctor about stop-smoking programs and medicines. These can increase your chances of quitting for good. When should you call for help? Watch closely for changes in your health, and be sure to contact your doctor if: ?? Your pain or other problems do not get better with home care. ?? You want more information about physical or occupational therapy. ?? You have side effects of your corticosteroid medicine, such as: ?? Weight gain. ?? Mood changes. ?? Trouble sleeping. ?? Bruising easily. ?? You have any other problems with your medicine. Where can you learn more? Visit our WEALTH at work information library at [email or web address]/WEALTH at workinfo You can also view health information on [employer] your personal patient account. Log in or sign up today. Enter R432 in the search box to learn more about Carpal Tunnel Syndrome: After Your Visit. ?? [id number] [email or web address]. Care instructions adapted under license by [facility]. This care instruction is for use with your licensed healthcare professional. If you have questions about a medical condition or this instruction, always ask your healthcare professional. [email or web address] disclaims any warranty or liability for your use of this information. Content Version: 10.4.416755; Current as of: April 19, 2014 [facility] Migraine Headache: After Your Visit Your Care Instructions Migraines are painful, throbbing headaches that often start on one side of the head. They may causenausea and vomiting and make you sensitive to light, sound, or smell. Without treatment, migraines can last from 4 hours to a few days. Medicines can help prevent migraines or stop them after they have started. Your doctor can help you find which ones work best for you. Follow-up care is a wood part of your treatment and safety. Be sure to make and go to all appointments, and call your doctor if you are having problems. It's also a good idea to know your test resultsand keep a list of the medicines you take. How can you care for yourself at home? ?? Do not drive if you have taken a prescription pain medicine. ?? Rest in a quiet, dark room until your headache is gone. Close your eyes, and try to relax or go to sleep. Don't watch TV or read. ?? Put a cold, moist cloth or cold pack on the painful area for 10 to 20 minutes at a time. Put a thin cloth between the cold pack and your skin. ?? Use a warm, moist towel or a heating pad set on low to relax tight shoulder and neck muscles. ?? Have someone gently massage your neck and shoulders. ?? Take your medicines exactly as prescribed. Call your doctor if you think you are having a problem with your medicine. You will get more details on the specific medicines your doctor prescribes. ?? Be careful not to take pain medicine more often than the instructions allow. You could get worseor more frequent headaches when the medicine wears off. To prevent migraines ?? Keep a headache diary so you can figure out what triggers your headaches. Avoiding triggers may help you prevent headaches. Record when each headache began, how long it lasted, and what the pain was like. (Was it throbbing, aching, stabbing, or dull?) Write down any other symptoms you had with the headache, such as nausea, flashing lights or dark spots, or sensitivity to bright light or loud noise. Note if the headache occurred near your period. List anything that might have triggered the headache. Triggers may include certain foods (chocolate, cheese, wine) or odors, smoke, bright light, stress, or lack of sleep. ?? If your doctor has prescribed medicine for your migraines, take it as directed. You may have medicine that you take only when you get a migraine and medicine that you take all the time to help prevent migraines. ?? If your doctor has prescribed medicine for when you get a headache, take it at the first sign ofa migraine, unless your doctor has given you other instructions. ?? If your doctor has prescribed medicine to prevent migraines, take it exactly as prescribed. Callyour doctor if you think you are having a problem with your medicine. ?? Find healthy ways to deal with stress. Migraines are most common during or right after stressfultimes. Take time to relax before and after you do something that has caused a migraine in the past. ?? Try to keep your muscles relaxed by keeping good posture. Check your jaw, face, neck, and shoulder muscles for tension. Try to relax them. When you sit at a desk, change positions often. And make sure to stretch for 30 seconds each hour. ?? Get plenty of sleep and exercise. ?? Eat meals on a regular schedule. Avoid foods and drinks that often trigger migraines. These include chocolate, alcohol (especially red wine and port), aspartame, monosodium glutamate (MSG), and some additives found in foods (such as hot dogs, meza, cold cuts, aged cheeses, and pickled foods). ?? Limit caffeine. Don't drink too much coffee, tea, or soda. But don't quit caffeine suddenly. That can also give you migraines. ?? Do not smoke or allow others to smoke around you. If you need help quitting, talk to your doctorabout stop-smoking programs and medicines. These can increase your chances of quitting for good. ?? If you are taking control pills or hormone therapy, talk to your doctor about whether theyare triggering your migraines. When should you call for help? Call 911 anytime you think you may need emergency care. For example, call if: ?? You have signs of a stroke. These may include: ?? Sudden numbness, paralysis, or weakness in your face, arm, or leg, especially on only one side of your body. ?? Sudden vision changes. ?? Sudden trouble speaking. ?? Sudden confusion or trouble understanding simple statements. ?? Sudden problems with walking or balance. ?? A sudden, severe headache that is different from past headaches. Call your doctor now or seek immediate medical care if: ?? You have new or worse nausea and vomiting. ?? You have a new or higher fever. ?? Your headache gets much worse. Watch closely for changes in your health, and be sure to contact your doctor if: ?? You are not getting better after 2 days (48 hours). Where can you learn more? Visit our health information library at [email or web address]/healthinfo You can also view health information on [employer], your personal patient account. Log in or sign up today. Enter U690 in the search box to learn more about Migraine Headache: After Your Visit. ?? [id number] [email or web address]. Care instructions adapted under license by [facility]. This care instruction is for use with your licensed healthcare professional. If you have questions about a medical condition or this instruction, always ask your healthcare professional. [email or web address] disclaims any warranty or liability for your use of this information. Content Version: 10.4.514782; Current as of: August 15, 2013 documented in this encounter Progress Notes * Daniela Monsalve MD - 02/24/2015 1:10 PM EDT Neurology Headache Clinic Initial Consultation Patient name: Katheryn Carranza Date of : 1960 PCP: SANTI FITZGERALD APRN (General) CC: Headache/ occipital neuralgia b/l I have been asked to see Katheryn Carranza in consultation by Rita Garcia for her c/o Headaches inmy capacity as Headache Medicine Specialist. HPI: Katheryn Carranza is a 54 y.o. right handed female with PMH HTN, Tobacco use, MJ use, ARCHANA, Depression and headache presenting for evaluation and management of headaches and cervical neck pain with concerns for occipital neuralgia. She is presenting here with her Prieto . She has been seen by Dr. Sena Michael MD - Neurologist in [facility] 05/09/2013 - Assessment: Chronic Tension type headache, occipital neuralgiaand history or menstrual migraine. She has been seen in the [facility] for evaluation of c ervicogenic headache sx. Started having headaches as a [...] - she has not yet seen an wire coater. When she had her uterus there was [...] the of her father (hit by drunk log truck driver) Seroquel Previous work-up: MRI Cervical Spine 07/17/2014: Mid cervical spondylosis with multilevel moderate spinal canal stenosis as detailed above. Multilevel neural foraminal stenosis, moderate to severe on the left at C3-C4. Contraception: s/p Hysterectomy in 2004 Medications tried: Amitriptyline 100mg Atenolol (for BP) Gabapentin Skelaxin Celebrex Tizanadine Sumatriptan 100mg PRN Ibuprofen Tylenol Lidocaine cream TPI and occipital nerve blocks-helpful for a [...] pain. ONB in 2012 - very helpful Current Medications: Amitriptyline 100 mg qHS Gabapentin 300 mg TID Atenolol 50mg Tizanidine 4 mg Sumatriptan 100mg PRN Tylenol daily Treatments not tried: Topamax (Has a h/o renal stones - has only one kidney - congenital) Botox injections Past Medical History: Past Medical History Diagnosis Date ??? Neck pain on left side 07/04/2012 ??? Hypertension ??? Tobacco abuse ??? ARCHANA (generalized anxiety disorder) ??? ADD (attention deficit disorder) ??? Headache ??? Depression Medications: Current Outpatient Prescriptions on File Prior to Visit Medication Sig Dispense Refill ??? gabapentin (NEURONTIN) 300 mg Capsule Take 300 mg by mouth 3 times daily. ??? [DISCONTINUED] amitriptyline (ELAVIL) 10 mg Tablet Take 10 mg by mouth nightly. ??? tiZANidine (ZANAFLEX) 4 mg Tablet Take [...] 2 % cream Apply topically as needed. ??? [DISCONTINUED] celecoxib (CELEBREX) 200 mg Capsule Take 200 mg by mouth daily. ??? [DISCONTINUED] metaxalone (SKELAXIN) 800 mg tablet Take 800 mg by mouth 3 times daily. No current facility-administered medications on file prior to visit. Allergy: Allergies Allergen Reactions ??? Allergenic Extracts Pollen ??? Tramadol ??? Zoloft [Sertraline] Nausea And Vomiting Family History: Family History Problem Relation Age of Onset ??? Alcohol Abuse Sister ??? Cerebrovascular Accident Sister ??? Migraines Sister ??? Alcohol Abuse Brother ??? Arthritis Neg Hx ??? Asthma Neg Hx ??? Cancer Neg Hx ??? Heart Disease Neg Hx ??? Substance Abuse Neg Hx ??? 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 Applying for disability Denies EtOH use Smoking 5 cig per day - thinking about quitting, but not ready Uses MJ in the evenings Review of systems: Constitutional: No fevers or chills Eyes: No vision changes, no diplopia, no blurry vision ENT: No rhinorrhea or pharyngitis, no meningismus CV: No chest pain or palpitations Resp: No cough, no shortness of breath GI: No nausea, vomiting, diarrhea or constipation : No dysuria, no incontinence Heme: No bleeding or bruising Endo: No diabetes or thyroid disease Neuro: See HPI Psych: No depression, normal sleep [x] Review of systems otherwise negative Physical Exam: Filed Vitals: 02/24/15 1302 BP: 125/95 Pulse: 80 HEENT: oral mucosa moist, no thrush, no carotid bruits, no thyromegaly, no lymphadenopathy Bilateral occipital nerve tenderness to palpation Heart: RRR S1S2 no murmur Lungs: CTAB symmetric expansion Abd: soft, nontender, nondistended Ext: no edema, adequate pulses Neuro exam: MSE: alert, oriented to person, place, time, situation, follows simple and complex commands, speechfluent with no dysarthria CN: PERRL, no nystagmus, EOMI, visual nation intact to confrontation, facial sensation intact, no facial droop or asymmetry, tongue protrudes midline, uvula and palate elevate symmetrically, trap symmetric strength bilaterally Fundoscopic examination: crisp optic cups, no AV nicking, venous pulsations b/l Motor: RUE 5/5 throughout LUE 5/5 throughout RLE 5/5 throughout LLE 5/5 throughout Normal bulk and tone No pronator drift Reflexes 1+ bilat biceps, brachioradialis, triceps 1+ bilat patella, achilles downgoing toes bilaterally Sensation: intact light touch Coordination: intact finger nose finger, no dysmetria, no tremor Gait: normal stride and arm swing, able to perform heel, toe walk and can not preform tandem gait. Negative romberg. Labs: No results found for this or any previous visit (from the past 24 hour(s)). Diagnostic Tests and Imaging: As documented in the HPI Assessment and plan: Katheryn Carranza is a 54 y.o. right handed female with PMH HTN, Tobacco use, MJ use, ARCHANA, Depression and headache presenting for evaluation and management of headaches and cervical neck pain with concerns for occipital neuralgia. Patient's history and physical exam are most consistent with a chronic migraine without aura picture in addition to a medication overuse headache from her daily Tylenol use. Patient will need further evaluation for secondary causes of headache; MRI brain with and withoutcontrast as well as thyroid function studies. She has bilateral occipital nerve tenderness to palpation today and I've offered her occipital nerve blocks. For management of her headaches I recommend that she discontinue her daily use of Tylenol and discontinue sumatriptan. For headache prevention there are only 2 medications that have level a evidence of efficacy in chronic migraine state, Botox and Topamax. I recommend Botox injections, we will request a prior authorization. Topiramate is contraindicated in this patient with history of renal stones. For management of mild to moderate headache symptoms I recommend naproxen sodium and Vistaril in combination. For migrainous exacerbations are recommended Migranal nasal spray. For rescue Phenergansuppositories. Patient's physical exam is also notable for symptoms of bilateral carpal tunnel syndrome. I will request nerve conduction studies to be performed and have ordered her bilateral wrist splints. I recommend the book Conquering Headache (on ebay) Rossi/ [employer] (editors) the 5th or 6th edition. Patient will maintain a headache calender and I will see her back in follow-up in 8-10 weeks. # Chronic Migraine without Aura Medication overuse Headache - Headache diary - b/l ONB today - Labs: TSH, T4 - MRI brain with and without - Discontinue : Tylenol Sumatriptan Do not take over the counter medications - For Headache Prevention: Botox prior authorization being requested - For mild to moderate CASTELLANOS Naproxen [...] 25mg -50mg suppository # Carpal Tunnel Syndrome EMG and Nerve conduction studies Splints for both wrist to be warn at night Follow-up with Dr. Monsalve in 8-10 weeks Daniela Monsalve MD [facility] Neurology This note was created using [employer] speech recognition software. Please pardon any errors. documented in this encounter Procedure Notes * Daniela Monsalve MD - 02/24/2015 2:36 PM EDTAssociated Order(s): NERVE BLOCK - OCCIPITAL Procedure Note Procedure: Bilateral Greater Occipital Nerve Blocks Indication: Headache with occipital/cervical tenderness Consent: Indication, risks, benefits, and alternatives discussed with patient, including risk of bleeding, infection, permanent numbness, and medication reaction. Consent signed by patient Location: The greater occipital nerve was [...] Blood loss: <1 cc Daniela Monsalve MD [facility] [place] [place] Neurology documented in this encounter Plan of Treatment Upcoming Encounters Date Type Department Care Team (Late st Contact Info) Description 03/07/2024 10:00 AM EDT Appointment XRay at [address] [place] [address] Tien Zurita MD [facility] [place] [address] 03/07/2024 10:40 AM EDT Office [place] [id number] Angel Hankins PA [facility] [place] [address] Scheduled Orders Name Type Priority Associated Diagnoses Orde r Schedule Nerve conduction test Neurology Routine Carpal tunnel syndrome, bilateral Ordered: 02/24/2015 documented as of this encounter Procedures Procedure Name Priority Date/Time Associated Diagnosis Comments NERVE BLOCK - OCCIPITAL Routine 02/24/2015 4:03 PM EDT documented in this encounter Results * MRI [...] IMPRESSION: Negative brain MRI. Daniela Monsalve MD G MRI ORDERABLES * TSH (02/27/2015 12:26 PM EDT) Thyroid Stimulating Hormone 2.20 0.27 - 4.20 mcIU/mL PERCY ESPANA Blood specimen (specimen) 02/27/2015 12:26 PM EDT 02/27/2015 12:40 PM EDT Narrative Resulting Agency Comment Spec In Lab Daniela Monsalve MD CHEMISTRY ORDERABLES PERCY VICKIIMELDA * NERVE BLOCK - OCCIPITAL (02/24/2015 4:03 PM EDT) Narrative Daniela Monsalve MD - 02/24/2015 4:03 PM EDT Daniela Monsalve MD ? 02/24/2015 ??4:03 PM Procedure Note Procedure: Bilateral Greater Occipital Nerve Blocks Indication: Headache with occipital/cervical tenderness Consent: Indication, risks, benefits, and alternatives discussed with patient, including risk of bleeding, infection, permanent numbness, and medication reaction. ??Consent signed by patient Location: The greater occipital nerve was [...] Blood loss: <1 cc Daniela Monsalve MD [facility] [place] Neurology Daniela Monsalve MD NEUROLOGY ORDERABLES documented in this encounter Visit Diagnoses Diagnosis Intractable migraine with aura without status migrainosus- Primary Migraine with aura, with intractable migraine, so stated, without mention of status migrainosus Carpal tunnel syndrome, bilateral Carpal tunnel syndrome Carpal tunnel syndrome, bilateral Carpal tunnel syndrome documented in this encounter Administered Medications Inactive Administered Medications - up to 3 most recent administrations Medication Order MAR Action Action Date Dose Rate Site BUpivacaine (PF) (MARCAINE) 0.25 % (2.5 mg/mL) injection 3 mg 3 mg, Subcutaneous, ONCE, 1 dose, On Tue02/24/15 at 1500, Routine Given 02/24/2015 2:35 PM EDT 3 mg lidocaine (XYLOCAINE) 10 mg/mL (1 %) injection 3 mg 3 mg, Subcutaneous, ONCE, 1 dose, On 02/24/15 at 1500, Routine Given 02/24/2015 2:35 PM EDT 3 mg documented in this encounter
--- OUTSIDE RECORDS SUMMARY | 2024-02-12 18:10 | XMS_ITS | Encounter Summary ---
Author Organization Formerly [facility] [place] [address] Care Team Providers Care Senior Client Advisor Name Role Phone Unavailable Primary Care Provider Unavailabl e Encounter Details Date Type Department Care Team (Late st Contact Info) Description 12/09/2011 2:14 PM EDT - 12/09/2011 4:32 PM EDT [place] [phone] Pauly Sommers MD [facility] [place] [address] REDUCTION MAMMOPLASTY, EVA (WRVU 16.03) Social History Tobacco Use Types Packs/Day Years [...] Sign Reading Time Taken Comments Blood Pressure 163/84 12/09/2011 9:00 PM EDT Pulse 90 12/09/2011 9:00 PM EDT Temperature 36.6 ??C (97.9 ??F) 12/09/2011 9:00 PM ED T Respiratory Rate 16 12/09/2011 9:00 PM EDT Oxygen Saturation 97% 12/09/2011 9:00 PM EDT Inhaled Oxygen Concentration - - Weight - - Height - - Body Mass Index - - documented in this encounter Discharge Instructions * Discharge Instructions* Al Quezada RN - 12/09/2011 6:34 PM EDT Images from the original note were not included. POST ANESTHESIA INSTRUCTIONS Go home, rest, use caution on stairs. Change positions slowly. Do not smoke if you are alone. Diet light to regular as tolerated today. If nausea occurs start with clear liquids and progress slowly. No driving, operating machinery, alcoholic beverages and no important decisions for 24 hours. Monitor IV site for signs and symptoms of infection: increasing redness, swelling, foul drainage, if occurs contact M.D. Patients who have had endotrachial tubes (this tube, used by anesthesia department, is passed down your throat after you are asleep, to ensure safe air passage during your operation). A sore throat is normal due to the tube. Cold liquids or soothing lozenges will help ease the discomfort. The generalized muscle aches are due to the medication given to you just before the tube is inserted. As the medication wears off, you may develop muscle soreness, which usually goes away in 12-24 hours. SAME DAY SURGERY MANAN DRAIN CARE INSTRUCTIONS Drains help to keep fluid from collecting by removing the extra blood and fluid from under the skin. A drain is temporary. It stays in place until the drainage has slowed down or stopped. Your doctor or nurse will decide when each drain should be removed: This is usually after each drain has 30cc or less in 24 hours for 2 days in a row. When this happens, you should call the Plastic Surgery Clinic to schedule an appointment with the nurses to have it/them removed. This is usually not painful and only takes a few seconds. How do I care for the drains at home? Pin your drains to your clothing by using a safety pin through the plastic loop on the top of the bulb. If the drain is not attached to your clothing, it may pull out from under your skin. Also, a drain usually feels more comfortable when it???s attached. To care for the drain at home, you will have to empty the drain, ???strip?? the drain tubing, and changethe dressing if applicable. * See the following pages for instructions on how to do this. What problems may I have with my drain? The bulb is not compressed- The bulb may not be squeezed tightly enough, the plug may not be closedsecurely, or the tube has slipped out a bit and is leaking. Follow the instructions on how to emptythe drain. If the bulb remains expanded, then notify your doctor or nurse during business hours. No drainage or sudden decrease in amount of drainage- This is usually due to clots in the drain. Follow the instructions on how to strip the drain tubing. The tube accidentally falls out- If this happens, place a dry gauze dressing over the drain site and notify your doctor or nurse during business hours. Increased redness, swelling, or heat around the tube insertion site- This may be a sign of infection. Take your temperature: if it is higher than 101F or 38.8C, call your doctor or nurse immediately.Otherwise, notify your doctor or nurse during business hours and keep the dressing clean and dry. Post-Surgical Drain Care After surgery, you will have one or two drains, called a Johnny-Dos Santos (MANAN) drain, placed near the incision. This device collects fluid, under suction, from your surgical area. The drain promotes healing and recovery, and reduces the chance of infection. The drain will be in place until the drainage slows enough for your body to reabsorb fluid on its own. While you are hospitalized the nursing staff will care for the drain and teach you to continue to do so at home. How to Empty Your MANAN Drain Note: Wash your hands thoroughly before emptying your drain(s). 1. Have the plastic measuring cup from the hospital ready to collect and measure the drainage. Please measure the output at the same two times every 24 hours and record the amount. 2. Unpin the drain from your clothing. 3. Open the top of the drain. Turn the drain upside down and squeeze the contents of the bulb into the measuring cup. Be sure to empty the bulb as completely as possible. Flush the contents in the toilet. 4. Use the drain output log chart to record the amount of drainage twice a day or any time the bulbis full. Record the total for 24 hours for each drain you have. 5. If you have more than one drain, remember to record the drainage from each drain separately. 6. To prevent infection, do not let the stopper or top of the bottle touch the measuring cup or anyother surface. 7. Use one hand to squeeze all of the air from the drain. With the drain still squeezed, use your other hand to replace the top. This creates the suction necessary to remove the fluids from your body. 8. Pin the drain back on your clothing to avoid pulling it out accidently. 9. Wash your hands again. Remember to wash your hands before and after the procedure to reduce the risk of infection. Stripping the Tube Often products of healing will not flow out of the narrow tube and prevent proper draining. If you do not have drainage, then: Hold the tube near where it is inserted in to the skin with your one hand. Use the other hand to hold a pencil and gently squeeze the tubing with the pencil while moving it down toward the drain away from your skin. This forces the more sold material into the bulb for better drainage. Repeat as necessary to start the draining again. Removal of the Tube The tube may be removed once a single tube output is less than 30cc (1 oz.) in 24 hours. Please call the office if the output becomes thicker or has a bad odor. Johnny-Dos Santos Drainage Record NAME: Date of Surgery: Date: Time: If more than one drain, which one: Drainage Amount (per drain) Total Amount (per drain; in 24 hours) * Patient Instructions* Faisal Oliveira MD - 12/09/2011 3:02 PM EDT The healing process after breast reduction surgery varies with each person. You should expect to feel tired for the first 2 - 3 weeks due to anesthesia and the healing process. Rest often during the day and get a good night sleep. With any surgery there is some discomfort or pain. We will prescribe pain medication, usually a narcotic and an anti-inflammatory. Take both as prescribed and only as needed. Please read your Narcotic and Postop Pain handout for proper use of your pain medications. Shooting pain and burning sensations are normal and will subside as you heal. Breast swelling is normal as is mild bruising. Expect to have some pink, red, or clear drainage from your incisions for the first 1 to 2 weeks. Continue to use gauze dressing until the drainage is gone. Spitting sutures: Occasionally an area of redness and tenderness develops where a dissolving stitchbecomes irritated and pushes to the surface. This stitch is clear and looks like fish line. If thisoccurs, it is not an emergency. You may clip the stitch or call the clinic for an appointment with a nurse. Your breasts will take about 6 months to acquire their new shape. GETTING A GOOD NIGHT SLEEP Your surgeon may ask you to sleep on your back for a few weeks. Here are some suggestions for a good nights sleep. Try sleeping in a recliner. Have extra pillows in your bed for support: two along your side and one under your knees to relievelower back pressure. Buy a large body pillow or a pillow with arm rests for sitting up in bed. GETTING OUT OF BED You will be asked to limit the use of your arms for a few weeks after surgery. This can be a problem when trying to get out of bed. The following suggestions help you get out of bed with minimal use of your arms. When in bed, pull your knees up towards your chest and tip to the side, gently rolling out of bed. Take care not to roll onto your breasts. Create a nest of pillows to prop you in a semi-upright position helps give you that extra boost to get out of bed. Have someone put gentle pressure to your lower shoulder blades as you sit up. This gives you the extra power you need to get to your feet. SHOWERING AND BATHING Do not shower if you have had a Free Nipple Graft. Your dressing must stay dry and in place until you see your doctor, usually in 7 days. If you have breast drains, the nurses usually remove them within the first 3 days following surgery. You may shower 2 days after surgery (or as directed by your doctor). Do wash by gently touching your breasts. Be sure to have someone nearby when taking your first shower in case you feel dizzy. Remember your center of gravity will be different and you will be taking a narcotic. If you have taping under your breast, leave that in place until your appointment with the doctor in2 weeks. You will continue to tape for 6 weeks following surgery. DO???S AND DON???TS FOR THE NEXT [address] a motor vehicle for 1-2 weeks or until you can handle the steering wheel without discomfort. Do not drive while taking your narcotic. You will be able to wear a seat belt if you place a small pillow over your chest area. Do not engage in sexual activity for at least 1 week. Do not smoke or be around anyone who smokes for 2 weeks after your surgery. Smoking delays healing and can lead to infection. Do not lift more than 5 pounds or bend at the waist to lift for 6 weeks. Do not participate in strenuous activities such as running or aerobics for 6 weeks. Do resume walking at a gentle pace. Protect your incisions from the sun for 6 months. You may return to work in 1-6 weeks (average time is 3 weeks) depending upon your work activity. Do report if pain and swelling in one breast is much greater then the other. Do report signs of infection. SIGNS OF INFECTION: A temperature over 100.4???F or 38???C. Redness at the incision line that is beginning to spread away from the incision after the first 48 hours. Yellow pus-like or foul smelling drainage larger than dime size from the incisions or drainage sites. Increased pain or discomfort that is not relieved by your pain medicine. CONTACT INFORMATION: Contact your doctor during office hours: Tuesday through Tuesday 8 am to 5 pm Call [phone] On weekends or after hours: Call [phone] and ask the stock saw operator to page the Plastic Surgeon tactical air defense controller. Prescription Line: Tuesday through Tuesday 8 am to 4 pm Call [phone] Narcotic renewals will not be honored after hours or on weekends. Make your request a few days before you run out as it may take up to 24 hours for physician approval. documented in this encounter Medications at Time of Discharge Medication Sig Dispensed Refills Start Date End Date multivitamin (THERAGRAN) tablet Take 1 tablet by mouth daily. atenolol (TENORMIN) 50 mg tablet Take 50 mg by mouth daily. busPIRone (BUSPAR) 15 mg tablet Take 15 mg by mouth 2 times daily. 1 tab in am and 1/2 tab at noon 07/09/2014 cyclobenzaprine (FLEXERIL) 10 mg tablet Take 10 mg by mouth 3 times daily as needed. 12/01/2022 pantoprazole (PROTONIX) 40 mg tablet Take 40 mg by mouth daily. 08/08/2022 methylphenidate (CONCERTA) 18 mg CR tablet Take 36 mg by mouth every morning. 09/10/2014 methylphenidate (CONCERTA) 27 mg CR tablet Take 27 mg by mouth every evening. 09/10/2014 eszopiclone (LUNESTA) 3 mg Tab Take 3 mg by mouth nightly. 09/10/2014 ibuprofen (ADVIL;MOTRIN) 800 mg tablet Take 800 mg by mouth 3 times daily as needed. 07/09/2014 documented as of this encounter Progress Notes * Yue Shell RN - 12/09/2011 10:06 PM EDT 2200 - pt up to commode able to void easily. Pt drains emptied with , pt dressed. Iv discontinued and pt transported to private vehicle via wheelchair. * Yue Shell RN - 12/09/2011 9:52 PM EDT Discharge teaching done with and pt. Both verbalized understanding. Written copy given to . Taught to measure and empty drains bilat. Pt BP elevated called called no new orders received. Pt OK'd to go once meets criteria. Pt given pain meds per AUG. Will continue to monitor closely. * Yue Shell RN - 12/09/2011 9:00 PM EDT Received report from Al BAKER. Assuming care of pt. Pt physical assessment complete, for questions please see flow sheets. Pt states pain is getting better. * Al Quezada RN - 12/09/2011 8:11 PM EDT Pt is labile and oriented times 4, VSS. Pt c/o 10/10 pain with Dilaudid 2 mg IV as charted, Fentanyl 150 mcg IV as charted, and pt given Percocet 2 tablets PO at [address] Oliveira notified of pt's reports of 10/10 pain with all narcotics charted. MD aware. Will call report to SWITCHBOX ASSEMBLER for pt transfer. Will continue to monitor. AL QUEZADA RN documented in this encounter H&P Notes * Faisal Oliveira MD - 12/09/2011 2:55 PM EDT 24 hour interval history and physical exam: Valeria March's condition unchanged since H&P originally performed rrr ctab documented in this encounter Nursing Notes * Lianne Dillon RN - 12/09/2011 4:29 PM EDT Anesthetic infiltrate solution:50 ml 1% lidocaine+ 1 ml epinephrine injection fdc 1:1000 added to 1000 IV NACL per order the total amt used of anesthetic infiltrate solution was 1000 ml. documented in this encounter Miscellaneous Notes * Miscellaneous - Provider, Scanning - 12/12/2011 11:49 AM EDT * Miscellaneous - Provider, Scanning - 12/12/2011 11:48 AM EDT * Op Note - Pauly Sommers MD - 12/09/2011 7:07 PM EDT [facility] [place] Patient Name: Valeria March : [id number] MR#: [id number] Case Date: 12/09/2011 Surgeon: Surgeon(s) and Role: * PAULY SOMMERS MD - Primary * FAISAL OLIVEIRA MD * FABI GARLAND MD - Resident-Surgeon Ariel * PIERRE MATHEW MD - Resident-Surgeon Ariel Preoperative diagnosis: Breast hypertophy Postoperative diagnosis: Breast hypertophy Procedure(s): REDUCTION MAMMOPLASTY, EVA MODIFIER VASQUEZ General Estimated Blood Loss: 350 cc Drains: Daryn 19 x 2 Disposition: awakened from anesthesia, extubated and taken to the recovery room in a stable condition, having suffered no apparent untoward event. Condition: doing well without problems (Please see the Surgical Encounter Summary for any Implant and Specimen details pertinent to this patient.) HPI/Surgical Indications: Valeria is a 51 yo F who presents with symptomatic macromastia for breast reduction. Procedure: The patient was marked for a modified Matute inferior pedicle breast reduction in thestanding position in the preoperative area. [facility] informed [facility] was obtained[facility] Operating Room table. She was given a single prophylactic dose of antibiotics and SCDs placed. After the induction of general endotracheal anesthesia, the chest wall was prepared and draped in the standard sterile fashion. Immediately priorto the start of the procedure, the procedural care team participated in an active process whereby the following were confirmed and agreed upon by all present: patient's identity, intended procedure, i ncluding site and side; correct positioning/presence of juliane; and availability of special equipment/implant. Through small stab wounds, the breasts were infiltrated with a total of 1L of tumescent solution ofsaline, epinephrine and xylocaine. The precise outline of the inferior pedicle was designed and theareolar diameter was marked using a 42 mm template. Methylene blue was tattooed (using a 25 gauge needle) into the wood anatomic landmarks and quadrants of the areolar diameter. A tourniquet was then wrapped around the base of each breast and the 10 cm wide inferior pedicle was deepithelialized. Theremainder of the incisions were made through skin and superficial subcutaneous tissue. The pedicle was then incised and developed down to the pec fascia. Beginning infero-medially, the tissue to be excised was from the pectoralis fascia and then developed contiguously with the superior pole of the breast and the inferolateral extension. Once the tissue had been excised bilaterally, the weights of the excised tissue were recorded and additional tissue taken to ensure symmetry. (~1400 g.) The breast wounds were then irrigated with normal saline. Hemostasis was achieved with Bovie cautery. Bilateral drains were placed to exit throughstab wounds inferior to the lateral most aspect of the inframammary incisions. Closure was first begun by approximating the 12 o'clock position of the NAC with a deep dermal stitch of 4-0 PDS. The rest of the wound closure was achieved with double deep dermal 4-0 PDS or insorb staplers and running 4-0 Monocryl and then Dermabond was applied. The dressing consisted of moist sterile gauze and fluffs. The breasts were symmetrical at the end of the caseand there was good color/perfusion of the NAC complex bilaterally. Sponge and needle counts were all correct at the end of the case. There were no intraoperative complications. The patient was awakened from anesthesia without any difficulties. * Brief Op Note - Pauly Sommers MD - 12/09/2011 7:06 PM EDT Brief Operative Note Patient Name: Valeria March : [id number] MR#: [id number] Case Date: 12/09/2011 Surgeon: Surgeon(s) and Role: * PAULY SOMMERS MD - Primary * FAISAL OLIVEIRA MD * FABI GARLAND MD - Resident-Surgeon Ariel * PIERRE MATHEW MD - Resident-Surgeon Ariel Preoperative diagnosis: Breast hypertophy Postoperative diagnosis: Breast hypertophy Procedure(s): REDUCTION MAMMOPLASTY, EVA MODIFIER VASQUEZ Anesthesia: General Findings: as dictated Complications: none Fluids: 1.5 L Estimated Blood Loss: 350 cc Drains: Daryn 19 x 2 Disposition: awakened from anesthesia, extubated and taken to the recovery room in a stable condition, having suffered no apparent untoward event. Condition: doing well without problems (Please see the Surgical Encounter Summary for any Implant and Specimen details pertinent to this patient.) * OR Attestation - Pauly Sommers MD - 12/09/2011 7:06 PM EDT Attestation: Case Date: 12/09/2011 I performed this procedure without the involvement of a resident. PAULY SOMMERS MD 12/09/2011 * Miscellaneous - Provider, Scanning - 12/09/2011 2:13 PM EDT documented in this encounter Plan of Treatment Upcoming Encounters Date Type Department Care Team (Late st Contact Info) Description 03/07/2024 10:00 AM EDT Appointment XRay at [address] [place] [address] Tien Zurita MD [facility] [place] [address] 03/07/2024 10:40 AM EDT Office Visit Neurosurgery at [facility] [place] [phone] Angel Hankins PA [facility] [place] [address] documented as of this encounter Procedures Procedure Name Priority Date/Time Associated Diagnosis Comments SURGICAL PATHOLOGY REPORT Routine 12/09/2011 7:10 PM EDT SPECIMEN TO PATHOLOGY Routine 12/09/2011 6:10 PM EDT SPECIMEN TO PATHOLOGY Routine 12/09/2011 6:10 PM EDT MODIFIER VASQUEZ 12/09/2011 3:33 PM EDT Breast hypertophy REDUCTION MAMMOPLASTY, EVA (WRVU 16.03) 12/09/2011 3:33 PM EDT Breast hypertophy documented in this encounter Results * SURGICAL PATHOLOGY REPORT (12/09/2011 7:10 PM EDT) Surgical Pathology Report ? [facility] ? Provider: ?? MATTHIEU, PAULY B ?Pt. Name: ?? VALERIA MARCH ? Acc #: ?[id number] ?Pt. ? Col Date: ?? 12/09/2011 ?/Sex: ?1960,(51 years),Female ? Rec Date: ?? 12/09/2011 ?LOC: ?SDP ? SURGICAL PATHOLOGY ? ---Pathologic Diagnosis--- ? A - Right breast tissue, reduction mammoplasty (1,497 grams): ? 1. Focal mild usual ductal hyperplasia ? 2. Calcifications associated with benign ducts and lobules ? B - Left breast tissue, reduction mammoplasty (1,522 grams): ? 1. Mild usual ductal hyperplasia, apocrine metaplasia, and cysts ? 2. Calcifications associated with benign ducts and lobules ? CR-0 ? 12/13/11 ? PATRICIA ? 12/13/11 Verified by: ? Miladys AKBAR, Mark Bailey ? Pathologist ? (Electronic Signature) ? The attending pathologist whose signature appears on this report has ? reviewed all diagnostic slides and has edited the gross and/or ? microscopic portion of the report in rendering the final pathologic ? diagnosis. ? ---Microscopic Description--- ? Slides reviewed, microscopic description not recorded. ? ---Gross Description--- ? A - Labeled/Fixative: Right breast tissue, fresh. ? Qty/Size/Weight: ?Aggregate, 23.0 x 20.0 x 6.0 cm, 1497 g. ? Tissue Description: ?? Fibrofatty breast tissue and attached and detached, ? guo-pink skin. ?Skin: ?Unremarkable with no lesions. ?Sectioning: ?Adipose and dense, nieves-white, fibrous tissue. ? Sections/Processi ng: ??Samples of fibrofatty tissue. ??(R3) ? B - Labeled/Fixative: Left breast tissue, fresh. ? Qty/Size/Weight: ?Several segments, aggregating 44.0 x 19.0 x 3.0 cm, ? 1522 g. ? Tissue Description: ?? Fibrofatty breast tissue and attached guo-pink skin. ?Skin: ?Unremarkable with no lesions. ?Sectioning: ?Adipose and dense, nieves-white, fibrous tissue. ? Sections/Processi ng: ??Samples of fibrofatty tissue. ??(R3) aje/LCO ? ---Clinical Information--- ? Specimen Submitted: ? [facility] ? Provider: ?? PAULY SOMMERS ?Pt. Name: ?? VALERIA MARCH ? Acc #: ?[id number] ?Pt. ? Col Date: ?? 12/09/2011 ?/Sex: ?1960,(51 years),Female ? Rec Date: ?? 12/09/2011 ?LOC: ?SDP ? SURGICAL PATHOLOGY ? A - Right breast tissue ? B - Left breast tissue ? Clinical History/Diagnosis : ? Breast hypertrophy CERNER MILLENNIUM 12/09/2011 7:10 PM EDT Pauly Sommers MD PATHOLOGY/CYTOLOGY O LISA Performing Organization Address [facility] de Phone Number PERCY MALLORYIUM * Specimen to Pathology (surgical or derm) (12/09/2011 6:10 PM EDT) AP Specimen 12/09/2011 6:10 PM EDT 12/09/2011 6:10 PM EDT Narrative PERCY MILLENNIUM - 12/09/2011 6:10 PM EDT Specimen requisition ordered. ??Separate Pathology report to follow Pauly Sommers MD PATHOLOGY/CYTOLOGY O LISA Performing Organization Address [facility] de Phone Number PERCY MALLORYIUM * Specimen to Pathology (surgical or derm) (12/09/2011 6:10 PM EDT) AP Specimen 12/09/2011 6:10 PM EDT 12/09/2011 6:10 PM EDT Narrative PERCY MILLENNIUM - 12/09/2011 6:10 PM EDT Specimen requisition ordered. ??Separate Pathology report to follow Pauly Sommers MD PATHOLOGY/CYTOLOGY O LISA Performing Organization Address [facility] de Phone Number PERCY ESPANA documented in this encounter Visit Diagnoses Not on filedocumented in this encounter Administered Medications Inactive Administered Medications - up to 3 most recent administrations Medication Order MAR Action Action Date Dose Rate Site ceFAZolin (ANCEF) 2g in dextrose 5% 100mL 2 g, Intravenous, ONCE, 1 dose, On Teresa 12/09/11 at 1515, Administer over 30 Minutes, Indication for (Active or Suspected): Prophylaxis Given by Other 12/09/2011 3:50 PM EDT 2 g epiNEPHrine (PF) injection Soln ONCE PRN, Starting on Teresa 12/09/11 at 1755, Until Tue12/10/11 at 0003, Intra-Operative (Intra-Procedure), Routine Given 12/09/2011 5:55 PM EDT 1 mg 19- Surgical Site fentaNYL 50mcg/mL injection 25-50 mcg, Intravenous, EVERY 5 MIN PRN, Starting on Teresa 12/09/11 at 1833, Until Tue12/10/11 at 0003, Pain, for breakthrough pain, Hold for respiratory rate less than 10 per minute. Maximum dose: 250 mcg over one hour., PACU Recovery, Routine Given 12/09/2011 8:50 PM EDT 50 mcg Given 12/09/2011 8:17 PM EDT 50 mcg Given 12/09/2011 8:08 PM EDT 50 mcg HYDROmorphone (DILAUDID) injection 0.2-0.4 mg 0.2-0.4 mg, Intravenous, EVERY 5 MIN PRN, Starting on Teresa 12/09/11 at 1833, Until Tue12/10/11 at 0003, Pain, For moderate pain give: 0.2 mg every 5 minute prn For severe pain give: 0.4 mg every 5 minutes prn Maximum dose: 4 mg per hour Hold for respiratory rate less than 10 per minute., PACU Recovery, Routine Given 12/09/2011 8:03 PM EDT 0.4 mg Given 12/09/2011 7:58 PM EDT 0.4 mg Given 12/09/2011 7:36 PM EDT 0.4 mg lidocaine (PF) (XYLOCAINE) 10 mg/mL (1 %) injection ONCE PRN, Starting on Teresa 12/09/11 at 1751, Until Tue12/10/11 at 0003, Intra-Operative (Intra-Procedure), Routine Given 12/09/2011 5:51 PM EDT 500 mg 19- Surgical Site methylene blue 1 % injection ONCE PRN, Starting on Teresa 12/09/11 at 1628, Until Tue12/10/11 at 0003, Intra-Operative (Intra-Procedure), Routine Given 12/09/2011 4:28 PM EDT 10 mg 19- Surgical Site OXYcodone-acetaminophen (PERCOCET) 5-325 mg per tablet 1-2 tablet 1-2 tablet, Oral, EVERY 6 HOURS PRN, Starting on Teresa 12/09/11 at 1949, Until Tue12/10/11 at 0003, Pain, Maximum dose of acetaminophen is 4000 mg from all sources in 24 hours., Routine Given 12/09/2011 8:02 PM EDT 2 tablets sodium chloride 0.9% infusion 1,000 mL, at 100 mL/hr, Intravenous, CONTINUOUS, Starting on Teresa 12/09/11 at 1415, Until Tue12/10/11 at 0003, Day of Surgery (Day of Procedure) New Bag 12/09/2011 7:36 PM EDT 1,000 mLs 100 mL/hr documented in this encounter Active and Recently Administered Medications Times are shown in EDT. Scheduled Medication Order 12/07/2011 12/08/2011 12/09/2011 ceFAZolin (ANCEF) 2g in dextrose 5% 100mL (COMPLETED) 2 g, Intravenous, ONCE, 1 dose, On Teresa 12/09/11 at 1515, Administer over 30 Minutes, Indication for (Active or Suspected): Prophylaxis 1550 (Given by Other - Provider: Al Quezada RN - Comment: given by Angel Norman CRNA) Continuous Medication Order 12/07/2011 12/08/2011 12/09/2011 sodium chloride 0.9% infusion (CANCELED) 1,000 mL, at 100 mL/hr, Intravenous, CONTINUOUS, Starting on Teresa 12/09/11 at 1415, Until Tue12/10/11 at 0003, Day of Surgery (Day of Procedure) 1936 (New Bag - Prov ider: Al Quezada RN) PRN Medication Order 12/07/2011 12/08/2011 12/09/2011 epiNEPHrine (PF) injection Soln (CANCELED) ONCE PRN, Starting on Teresa 12/09/11 at 1755, Until Tue12/10/11 at 0003, Intra-Operative (Intra-Procedure), Routine 1755 (Given - Provid er: Pauly Sommers MD - Comment: mixed in 1000 ml 0.9% NaCl, with 50 ml 1% lidocaine HCL, for lical inflitration - by Dr. Fisher.) fentaNYL 50mcg/mL injection (CANCELED) 25-50 mcg, Intravenous, EVERY 5 MIN PRN, Starting on Teresa 12/09/11 at 1833, Until Tue12/10/11 at 0003, Pain, for breakthrough pain, Hold for respiratory rate less than 10 per minute. Maximum dose: 250 mcg over one hour., PACU Recovery, Routine 1940 (Given - Provid er: Al Quezada RN)1946 (Given - Provider: Al Quezada RN)2007 (Given - Provider: Al Quezada RN)2016 (Given - Provider: Al Quezada RN)2049 (Given - Provider: Yeu Shell RN) HYDROmorphone (DILAUDID) injection 0.2-0.4 mg (CANCELED) 0.2-0.4 mg, Intravenous, EVERY 5 MIN PRN, Starting on Treesa 12/09/11 at 1833, Until Tue12/10/11 at 0003, Pain, For moderate pain give: 0.2 mg every 5 minute prn For severe pain give: 0.4 mg every 5 minutes prn Maximum dose: 4 mg per hour Hold for respiratory rate less than 10 per minute., PACU Recovery, Routine 1925 (Given - Provid er: Al Quezada RN)1930 (Given - Provider: Al Quezada RN)1935 (Given - Provider: Al Quezada RN)1957 (Given - Provider: Al Quezada RN)2002 (Given - Provider: Al Quezada RN) lidocaine (PF) (XYLOCAINE) 10 mg/mL (1 %) injection (CANCELED) ONCE PRN, Starting on Teresa 12/09/11 at 1751, Until Tue12/10/11 at 0003, Intra-Operative (Intra-Procedure), Routine 175 (Given - Provid er: Pauly Sommers MD - Comment: mixed in 1000ml 0.9% NaCl with 1 ml of Epinephrine - for local infritration - bilateral breast - by Dr. Fisher.) methylene blue 1 % injection (CANCELED) ONCE PRN, Starting on Teresa 12/09/11 at 1628, Until Tue12/10/11 at 0003, Intra-Operative (Intra-Procedure), Routine 162 (Given - Provid er: Pauly Sommers MD - Comment: Used for marking) OXYcodone-acetaminophen (PERCOCET) 5-325 mg per tablet 1-2 tablet (CANCELED) 1-2 tablet, Oral, EVERY 6 HOURS PRN, Starting on Teresa 12/09/11 at 1949, Until Tue12/10/11 at 0003, Pain, Maximum dose of acetaminophen is 4000 mg from all sources in 24 hours., Routine 2001 (Given - Provid er: Al Quezada RN) documented in this encounter
--- OUTSIDE RECORDS SUMMARY | 2024-02-12 18:10 | XMS_ITS | Encounter Summary ---
[place] [address] Care Team Providers Care Classroom Instructor Name Role Phone Unavailable Primary Care Provider Unavailabl e Encounter Details Date Type Department Care Team (Late st Contact Info) Description 08/26/2014 [place]phone [place] [phone] Sarah Morales, RN Social History Tobacco Use Types Packs/Day [...] encounter Miscellaneous Notes * Telephone Encounter - Sarah Morales RN - 08/26/2014 9:29 AM EDT Katheryn Carranza :1960 Message left: I left a message on answering machine Ms. Carranza at 9:29 AM regarding her upcoming Left cervical medial branch block with Dr. Rita Garcia MD. Message included the followin. Patient instructed to arrive at 1000 (30 minutes prior to procedure start time) on 08/27 (date ofprocedure) with their uke driver. 2. Following instructions left in the message: - Bring Updated list of medications including dosage and reason for taking. - Call the Pain Clinic Nurse at for: ~Procedure instructions. ~If you are taking antibiotics. ~If you have any signs or symptoms of infection, cold or flu. ~If you have any skin breakdown (rashes, cysts, or abscess.) ~If you are taking anticoagulants / blood thinners (Plavix, Pletal, Lovenox, Coumadin, etc). ~If you had any steroid injections anywhere in your body within the last two weeks? Sarah Morales, RN documented in this encounter Plan of Treatment Upcoming Encounters Date Type Department Care Team (Late st Contact Info) Description 03/07/2024 10:00 AM EDT Appointment XRay at [address] [place] [phone] Tien Zurita MD [facility] [place] [address] 03/07/2024 10:40 AM EDT Office Visit Neurosurgery at [facility] [place] [phone] Angel Haknins PA [facility] [place] [address] documented as of this encounter Visit Diagnoses Not on filedocumented in this encounter
--- OUTSIDE RECORDS SUMMARY | 2024-02-12 18:10 | XMS_ITS | Encounter Summary ---
Author Organization [facility] [place] [address] Care Team Providers Care Club Concierge Name Role Phone Unavailable Primary Care Provider Unavailabl e Reason for Visit * Reason Comments Cervicalgia Encounter Details Date Type Department Care Team (Latest Contact Info) Description 09/08/2012 10:00 AM EDT Procedure [place] [address] Margret Bergman MD [facility] [place] [address] Cervicalgia (Primary Dx) Discharge Disposition: Home Social History [...] Sign Reading Time Taken Comments Blood Pressure 119/82 09/08/2012 11:00 AM EDT Pulse 71 09/08/2012 11:00 AM EDT Temperature - - Respiratory Rate - - Oxygen Saturation 99% 09/08/2012 11:00 AM EDT Inhaled Oxygen Concentration - - Weight 79.8 kg (176 lb) 09/08/2012 10:30 AM EDT Height 165.1 cm (5' 5) 09/08/2012 10:30 AM EDT Body Mass Index 29.29 09/08/2012 10:30 AM EDT documented in this encounter Patient Instructions * Patient Instructions* Viviane Atkinson RN - 09/08/2012 10:46 AM EDT [facility] Discharge Instructions: You were seen by Dr. Margret Bergman MD and Christopher Miranda MD who performed lumbar radiofrequency. [x] You may resume your normal activities: tomorrow. You may shower today. DO NOT tub bathe, use whirlpools, hot tubs or pool therapy for 2 days. RemoveBand-Aid(s) later today/tomorrow. Do not drive until tomorrow. Use caution walking/climbing stairs as you may be unsteady on your feet. You may use your usual medications, including pain medications, as directed, unless otherwise instructed. You may use an ice pack as needed for the first 24 hours, on for 20 minutes then off for 20 minutes. Do not apply heat today. [x] You received Midazolam 2 mg through an intravenous line, to lessen the anxiety/pain of your procedure. DO NOT operate heavy or dangerous equipment/tools, or sign important papers today. Attempt to empty your bladder 4-6 hours after your procedure. You received the following medications: Lidocaine. During regular business hours, please phone the Pain Management Center at for appointments or with any questions or if the following or other troubling symptoms develop: 1) Prolonged dizziness or weakness (more than 1 day). 2) Localized swelling, redness or drainage at the injection site(s). 3) Temperature of 101 degrees that lasts for more than 4 hours. After 5 PM or on weekends, call and ask for Pain Clinic provider on-call. If you are unable to reach the Pain Management Center and have a complication, please call your Primary Care Provider or proceed to your local emergency department. VIVIANE ATKINSON RN Special instructions documented in this encounter Progress Notes * Viviane Atkinson RN - 09/08/2012 10:33 AM EDT Pre-Procedure Screening Questions: 1. Status: No 2. 3. Patient states they have a bulk tank driver to transport after procedure? Yes 4. Patient taking antibiotics at present? No 5. NPO per Pain Management Center protocol? Yes 6. 7. Patient diabetic: No __ borderline (not treated with medications) __ managed with oral medications __ managed with injected medications 8. Patient routinely taking anticoagulants ? No Date stopped Current INR Patient Vital Signs documented in Doc Flowsheets associated with this encounter. Patient Discharge Instructions were reviewed with patient and copy provided to patient.IV anxiolysis: Yes IV placement: Location of IV Insertion: [ x ] Right [ ] Left [ x ] hand [ ] anterior forearm [ ] posterior forearm [ ] AC [ ] upper arm [ ] other: IV Gauge: [ ] 24G [x ] 22G [ ] 20G After IV insertion completed, IV was secured with occlusive transparent dressing. IV site is patentand intact. Patient is without complaint upon completion of IV insertion. Started by: LAF Initiated by: Viviane Atkinson RN IV Solution: LR 1000ml - rate as directed by proceduralist Total Volume Intravenous Fluid infused documented in the Medication Administration Record (MAR) Site condition at IV removal: [x ] Clear [ ] Bruised [ ] other: Administration of IV anxiolysis procedural medications documented in MAR as ordered by proceduralist documented in this encounter Procedure Notes * Christopher Miranda MD - 09/08/2012 11:29 AM EDTAssociated Order(s): RADIOFREQUENCY - CERVICAL Procedure(s): RADIOFREQUENCY - CERVICAL Pre-Procedure Diagnose(s): Cervicalgia LEFT CERVICAL MEDIAL BRANCH RADIOFREQUENCY Date of Service: 09/08/2012 Patient: Katheryn Carranza Provider: CHRISTOPHER MIRANDA MD Katheryn Carranza has been referred to the Pain Management Center for radiofrequency treatment of chronic axial neck pain. 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 Local anesthetic medial branch blocks resulted in reporting a greater than 50% reduction of the usual axial component of pain for at least theduration of the local anesthetic effect. COMMENTS: Patient presents with left sided neck pain. Prior left cervical MBB with good results. Please note there was an error in the documentation for the CMBB procedure: the fluoroscopic images show C4, C5, & C6 were blocked although the note states C3, C4, & C5 were blocked. Therefore, we will proceed with left C4, C5, C6 medial branch RF today given fluoroscopic image findings. Ms. Carranza was interviewed and the medical record reviewed. There were no medical, pharmacologic, radiographic or other structural contraindications to attempting fluoroscopically guided radiofrequency treatment. Risks and expected side effects as well as potential benefit of the procedure were reviewed with Ms. Carranza, and she voiced concerns addressed. The printed consent form was signed and witnessed. Standard time-out procedure was performed. Ms. Carranza was placed in the prone position on the fluoroscopy table and automated blood pressure cuff and pulse oximeter applied. The skin entry points for approaching the anatomic target points of the segmental medial branches of left C4, C5 and C6 were identified with fluoroscopic guidence. Following thorough Chlorhexadine preparation of the skin and draping and 1% lidocaine infiltration of the skin entry points and subcutaneous tissues, a 10cm, 22guage, 5mm active tip radiofrequency cannula was placed under fluoroscopic guidance at the anatomic course of each respective segmental medial branch. Each placement was stimulated at 50Hz and upto 1v in attempt to reproduce some component of Katheryn Carranza???s usual pain. If this response wasaccomplished, the cannula was left in place. If it could not be accomplished after multiple attempts, the cannula was placed at what was felt to be the closest anatomic approximation to the segmentalmedial branch. Each placement was stimulated at 2Hz and up to 3v without any evidence of distal myotomal stimulation. At each placement a continuous mode radiofrequency treatment was done at 80 degrees C for 90secs This radiofrequency treatment should result in the denervation of the left C4-5 and C5-6. A total of 2 facets were expected to be denervated from today's treatment. Ms. Carranza's vital signs were stable throughout the procedure and were as recorded in the docflowsheet by the nursing staff. If given, dosages of intravenous drugs for anxiolysis and analgesia were documented in the Medication Administration Record (MAR). Follow up plans and appointments were discussed with Katheryn Carranza. Post procedure instruction wasgiven as documented in the nursing documentation and having met discharge criteria, she was discharged from the Pain Management Center. Anxiolysis: 2 mg midazolam COMMENTS: Please note there was an error in the documentation for the CMBB procedure: the fluoroscopic images show C4, C5, & C6 were blocked although the note states C3, C4, & C5 were blocked. Therefore, we proceded with left C4, C5, C6 medial branch RF today given fluoroscopic image findings. Percocet 5-325 mg tabs q4h prn pain, #12, no refills; given for post-procedural pain I was the attending physician supervising the resident in the above care and I was present with theresident for the entire procedure. MARGRET BERGMAN MD CC: SANTI FITZGERALD APRN @PCPADD@ documented in this encounter Miscellaneous Notes * Miscellaneous - Provider, Scanning - 09/12/2012 9:15 AM EDT documented in this encounter Plan of Treatment Upcoming Encounters Date Type Department Care Team (Late st Contact Info) Description 03/07/2024 10:00 AM EDT Appointment XRay at [address] [place] [address] Tien Zurita MD [facility] [place] [address] 03/07/2024 10:40 AM EDT Office Visit [facility] [place] [address] Angel Hankins PA [facility] [place] [address] documented as of this encounter Procedures Procedure Name Priority Date/Time Associated Diagnosis Comments RADIOFREQUENCY - CERVICAL Routine 09/11/2012 9:31 AM EDT Cervicalgia documented in this encounter Results * RADIOFREQUENCY - CERVICAL (09/11/2012 9:31 AM EDT) Narrative Margret Bergman MD - 09/11/2012 9:31 AM EDT Margret Bergman MD ? 09/11/2012 ??9:31 AM LEFT CERVICAL MEDIAL BRANCH RADIOFREQUENCY Date of Service: ??09/08/2012 Patient: ??Katheryn Carranza ?? Provider: ??CHRISTOPHER MIRANDA MD Katheryn Carranza has been referred to the [facility] Management Center for radiofrequency treatment of chronic axial neck pain. 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 ?? Local anesthetic medial branch blocks resulted in Ms. Carranza reporting a greater than 50% reduction of the usual axial component of pain for at least the duration of the local anesthetic effect. ?? COMMENTS: Patient presents with left sided neck pain. Prior left cervical MBB with good results. Please note there was an error in the documentation for the CMBB procedure: the fluoroscopic images show C4, C5, & C6 were blocked although the note states C3, C4, & C5 were blocked. Therefore, we will proceed with left C4, C5, C6 medial branch RF today given fluoroscopic image findings. Ms. Carranza was interviewed and the medical record reviewed. ?? There were no medical, pharmacologic, radiographic or other structural contraindications to attempting fluoroscopically guided radiofrequency treatment. ??Risks and expected side effects as well as potential benefit of the procedure were reviewed with Ms. Carranza, and she voiced concerns addressed. ??The printed consent form was signed and witnessed. ??Standard time-out procedure was performed. Ms. Carranza was placed in the prone position on the fluoroscopy table and automated blood pressure cuff and pulse oximeter applied. ??The skin entry points for approaching the anatomic target points of the segmental medial branches of left C4, C5 and C6 were identified with fluoroscopic guidence. ??Following thorough Chlorhexadine preparation of the skin and draping and 1% lidocaine infiltration of the skin entry points and subcutaneous tissues, a 10cm, 22guage, 5mm active tip radiofrequency cannula was placed under fluoroscopic guidance at the anatomic course of each respective segmental medial branch. ??Each placement was stimulated at 50Hz and up to 1v in attempt to reproduce some component of Katheryn Carranza? s usual pain. ??If this response was accomplished, the cannula was left in place. ??If it could not be accomplished after multiple attempts, the cannula was placed at what was felt to be the closest anatomic approximation to the segmental medial branch. ??Each placement was stimulated at 2Hz and up to 3v without any evidence of distal myotomal stimulation. At each placement a continuous mode radiofrequency treatment was done at 80 degrees C for 90secs This radiofrequency treatment should result in the denervation of the left C4-5 and C5-6. ??A total of 2 facets were expected to be denervated from today's treatment. Ms. Carranza's vital signs were stable throughout the procedure and were as recorded in the docflowsheet by the nursing staff. ??If given, dosages of intravenous drugs for anxiolysis and analgesia were documented in the Medication Administration Record (MAR). Follow up plans and appointments were discussed with Katheryn Carranza. ??Post procedure instruction was given as documented in the nursing documentation and having met discharge criteria, she was discharged from the Pain Management Center. Anxiolysis: 2 mg midazolam COMMENTS: Please note there was an error in the documentation for the CMBB procedure: the fluoroscopic images show C4, C5, & C6 were blocked although the note states C3, C4, & C5 were blocked. Therefore, we proceded with left C4, C5, C6 medial branch RF today given fluoroscopic image findings. Percocet 5-325 mg tabs q4h prn pain, #12, no refills; given for post-procedural pain I was the attending physician supervising the resident in the above care and I was present with the resident for the entire procedure. MARGRET BERGMAN MD CC: SANTI FITZGERALD APRN @PCPADD@ Procedure Note Christopher Miranda MD - 09/08/2012 11:29 AM EDT LEFT CERVICAL MEDIAL BRANCH RADIOFREQUENCY Date of Service: 09/08/2012 Patient: Katheryn Carranza Provider: CHRISTOPHER MIRANDA MD Katheryn Carranza has been referred to the [facility] Center forradiofrequency treatment of chronic axial neck pain. She has had longstanding cervical pain thought to be facet joint generated and which hasbeen refractory to other therapies. Local anesthetic medial branch blocksresulted in Ms. Carranza reporting a greater than 50% reduction of the usualaxial component of pain for at least the duration of the local anestheticeffect. COMMENTS: Patient presents with left sided neck pain. Prior left cervicalMBB with good results. Please note there was an error in the documentationfor the CMBB procedure: the fluoroscopic images show C4, C5, & C6 wereblocked although the note states C3, C4, & C5 were blocked. Therefore, wewill proceed with left C4, C5, C6 medial branch RF today givenfluoroscopic image findings. Ms. Carranza was interviewed and the medical record reviewed. There were nomedical, pharmacologic, radiographic or other structural contraindicationsto attempting fluoroscopically guided radiofrequency treatment. Risks andexpected side effects as well as potential benefit of the procedure werereviewed with Ms. Carranza, and she voiced concerns addressed. The printedconsent form was signed and witnessed. Standard time-out procedure wasperformed. Ms. Carranza was placed in the prone position on the fluoroscopy table andautomated blood pressure cuff and pulse oximeter applied. The skin entrypoints for approaching the anatomic target points of the segmental medialbranches of left C4, C5 and C6 were identified with fluoroscopic guidence. Following thoroughChlorhexadine preparation of the skin and draping and 1% lidocaineinfiltration of the skin entry points and subcutaneous tissues, a 10cm,22guage, 5mm active tip radiofrequency cannula was placed underfluoroscopic guidance at the anatomic course of each respective segmentalmedial branch. Each placement was stimulated at 50Hz and up to 1v inattempt to reproduce some component of Katheryn Carranza? s usual pain. Ifthis response was accomplished, the cannula was left in place. If itcould not be accomplished after multiple attempts, the cannula was placedat what was felt to be the closest anatomic approximation to the segmentalmedial branch. Each placement was stimulated at 2Hz and up to 3v withoutany evidence of distal myotomal stimulation. At each placement acontinuous mode radiofrequency treatment was done at 80 degrees C [id number] This radiofrequency treatment should result in the denervation of the leftC4-5 and C5-6. A total of 2 facets were expected to be denervated fromtoday's treatment. Ms. Carranza's vital signs were stable throughout the procedure and were asrecorded in the docflowsheet by the nursing staff. If given, dosages ofintravenous drugs for anxiolysis and analgesia were documented in theMedication Administration Record (MAR). Follow up plans and appointments were discussed with Katheryn Carranza. Postprocedure instruction was given as documented in the nursing documentationand having met discharge criteria, [facility] Anxiolysis: 2 mg midazolam COMMENTS: Please note there was an error in the documentation for the CMBBprocedure: the fluoroscopic images show C4, C5, & C6 were blocked althoughthe note states C3, C4, & C5 were blocked. Therefore, we proceded withleft C4, C5, C6 medial branch RF today given fluoroscopic image findings. Percocet 5-325 mg tabs q4h prn pain, #12, no refills; given forpost-procedural pain I was the attending physician supervising the resident in the above careand I was present with the resident for the entire procedure. MARGRET BERGMAN MD CC: SANTI FITZGERALD APRN @PCPADD@ Margret Bergman MD PROCEDURE/MINOR SURG ICAL ORDERABLES documented in this encounter Visit Diagnoses Diagnosis Cervicalgia- Primary documented in this encounter Administered Medications Inactive Administered Medications - up to 3 most recent administrations Medication Order MAR Action Action Date Dose Rate Site lidocaine (PF) (XYLOCAINE) 10 mg/mL (1 %) injection 10 mg 10 mg, Subcutaneous, ONCE, 1 dose, On Tue09/08/12 at 1100, Wasted 20 ml, Routine Given 09/08/2012 11:00 AM EDT 10 mg midazolam (VERSED) injection 1 mg 1 mg, Intravenous, ONCE, 1 dose, On Tue09/08/12 at 1100, Routine Given 09/08/2012 11:00 AM EDT 2 mg documented in this encounter
--- OUTSIDE RECORDS SUMMARY | 2024-02-12 18:10 | XMS_ITS | Encounter Summary ---
Author Organization [facility] [place] [address] Care Team Providers Care Bell Maker Name Role Phone Unavailable Primary Care Provider Unavailabl e Encounter Details Date Type Department Care Team (Late st Contact Info) Description 03/19/2013 [place] [address] John Neely MD [facility] [place] [address] Social History Tobacco Use Types Packs/Day Years [...] 03/07/2024 10:00 AM EDT Appointment XRay at [address] [place] [phone] Tien Zurita MD [facility] [place] [address] 03/07/2024 10:40 AM EDT [place] [address] Angel Hankins PA [facility] [place] [address] documented as of this encounter Visit Diagnoses Not on filedocumented in this encounter
--- OUTSIDE RECORDS SUMMARY | 2024-02-12 18:10 | XMS_ITS | Encounter Summary ---
Author Organization [facility] [place] [address] Care Team Providers Care Pharmacogeneticist Name Role Phone Unavailable Primary Care Provider Unavailabl e Encounter Details Date Type Department Care Team (Late st Contact Info) Description 11/13/2012 Telephone [place] [address] Meron Jerry MD [facility] [place] [address] Social History Tobacco Use Types Packs/Day Years Used Date Smoking Tobacco: Every Day Cigarettes 0.3 35 Started: 06/10/1975; Last attempted to quit: 06/10/2010 Alcohol Use Standard Drinks/Week Comments Not Asked 0 (1 standard drink = 0.6 oz pur e alcohol) Sex and Gender Information Value Date Recorded Sex Assigned at Not on file Gender Identity Not on file Sexual Orientation Not on file documented as of this encounter Miscellaneous Notes * Telephone Encounter - Ava Callaway - 11/13/2012 4:55 PM EDT Ms. Carranza called on 11/13/12 requesting to repeat her Occip Nerve Blks and TPI as indicated in Dr. Jerry's note from 11/09/12. Patient reports that she had good relief and would like to schedule in month. Patient was transferred to the scheduling paralegal secretary. Ava Callaway documented in this encounter Plan of Treatment Upcoming Encounters Date Type Department Care Team (Late st Contact Info) Description 03/07/2024 10:00 AM EDT Appointment XRay at [address] [place] [address] Tien Zurita MD [facility] [place] [address] 03/07/2024 10:40 AM EDT Office Visit Neurosurgery at [facility] [place] [phone] Angel Hankins PA [facility] [place] [address] documented as of this encounter Visit Diagnoses Not on filedocumented in this encounter
--- OUTSIDE RECORDS SUMMARY | 2024-02-12 18:10 | XMS_ITS | Encounter Summary ---
Author Organization [facility] [place] [address] Care Team Providers Care Shrimp Header Name Role Phone Unavailable Primary Care Provider Unavailabl e Reason for Visit * Reason Comments Pain Management Cervicalgia Back Pain Encounter Details Date Type Department Care Team (Late st Contact Info) Description 07/09/2014 1:15 PM EST Follow[place] [phone] Rita Garcia MD [address] [place] [address] Rita Garcia MD [facility] [place] [place] [address] Cervical spondylosis without myelopathy; Cervical disc displacement; Cervical radiculitis; Occipital neuralgia Discharge Disposition: Home Social History Tobacco [...] Sign Reading Time Taken Comments Blood Pressure 168/93 07/09/2014 1:56 PM EST Pulse 100 07/09/2014 1:56 PM EST Temperature - - Respiratory Rate - - Oxygen Saturation 98% 07/09/2014 1:56 PM EST Inhaled Oxygen Concentration - - Weight 78 kg (172 lb) 07/09/2014 1:56 PM EST Height 166.4 cm (5' 5.5) 07/09/2014 1:56 PM EST Body Mass Index 28.19 07/09/2014 1:56 PM EST documented in this encounter Progress Notes * Rita Garcia MD - 07/09/2014 2:00 PM EST Date of Consultation: July 16, 2014 I am seeing Ms. Carranza at the request of Sailaja Ross for my opinion and recommendations regarding neck pain. Chief Complaint: Neck pain HPI: Subjective Katheryn Carranza is a 53 y.o. female right handed, who presents today for evaluation of neck pain. The patient has had symptoms for many years. She had a breast reduction which they thought may help her pain, but it did not. Patient has had recurrent self limited episodes of neck pain in the past. The pain is left greater than right. The pain is with radiation to bilateral neck base. and with radiation to left fingers (all), left arm -posterior. It also radiates from the occiput to the top of her head, bilaterally. Thepatient feels that her pain has been increasing. The neck pain is equivalent in intensity to the suboccipital pain with radiation. The arm pain is less than the neck and occipital pain. The patient describes their pain as aching or burning and occurs all of the time. The pain is improved with nothing in particular.. Symptoms are exacerbated by flexion and extension,rotational, manual/sedentary work, lifting. The patient has trialed prescription NSAIDS and muscle relaxers (skelaxin) without relief. The patient has trialed TPI and occipital nerve blocks. She felt that they helped for a couple of weeks. She has not had an injection since 12/2012. The patient has had imaging-09/2012. The patient is on neurontin 300 mg TID. It seemed to help the paresthesias; it did not decrease thepain. The patient is on celebrex currently, without relief. -The patient has trialed interventional pain management: Left cervical MBNRF C4,5,6; she does not recall if it was helpful. The patient's pain level today is a 5/ 10. The patient has been evaluated by a neurologist about one year ago. She did not receive medication.According to the patient, it seems that they may have said her pain was cervicogenic. PAST MEDICAL HISTORY: Past Medical History Diagnosis Date ??? Neck pain on left side 07/04/2012 ??? Hypertension ??? Tobacco abuse ??? EDDIE (generalized anxiety disorder) ??? ADD (attention deficit disorder) PAST SURGICAL HISTORY: Past Surgical History Procedure Laterality Date ??? Reduction of large breast 12/09/2011 REDUCTION MAMMOPLASTY, EVA performed by DEMETRA SOMMERS at [facility] OR ??? Hysterectomy ALLERGIES: Allergenic extracts and Zoloft MEDICATIONS: Medications 07/15/14 1252 Medication Sig Taking? celecoxib (CELEBREX) 200 mg Capsule Take 200 mg by mouth daily. Yes tiZANidine (ZANAFLEX) 4 mg Tablet Take 4 mg by mouth daily. Yes estradiol (ESTRACE) 1 mg tablet Take 1 mg by mouth daily. Yes metaxalone (SKELAXIN) 800 mg tablet Take 800 mg by mouth 3 times daily. Yes baclofen (LIORESAL) 10 mg tablet Take 10 mg by mouth 3 times daily. Yes QUEtiapine (SEROQUEL) 25 mg tablet Take 100 mg by mouth nightly. Yes multivitamin (THERAGRAN) tablet Take 1 tablet by mouth daily. Yes atenolol (TENORMIN) 50 mg tablet Take 50 mg by mouth daily. Yes cyclobenzaprine (FLEXERIL) 10 mg tablet Take 10 mg by mouth 3 times daily as needed. Yes pantoprazole (PROTONIX) 40 mg tablet Take 40 mg by mouth daily. Yes methylphenidate (CONCERTA) 18 mg CR tablet Take 36 mg by mouth every morning. Yes methylphenidate (CONCERTA) 27 mg CR tablet Take 27 mg by mouth every evening. Yes eszopiclone (LUNESTA) 3 mg Tab Take 3 mg by mouth nightly. Yes ketoconazole (NIZORAL) 2 % cream Apply topically 2 times daily. Yes amitriptyline (ELAVIL) 10 mg Tablet Take 10 mg by mouth nightly. FAMILY HISTORY: Family History Problem Relation Age of Onset ??? Alcohol Abuse Sister ??? Cerebrovascular Accident Sister ??? Alcohol Abuse Brother ??? Arthritis Neg Hx ??? Asthma Neg Hx ??? Cancer Neg Hx ??? Heart Disease Neg Hx ??? Substance Abuse Neg Hx SOCIAL HISTORY: History Social History ??? Marital Status: Spouse Name: Prieto Number of Children: 2 ??? Years of Education: N/A Occupational History ??? unemployed Social History Main Topics ??? Smoking status: Current Every Day Smoker -- 0.25 packs/day for 35 years Types: Cigarettes ??? Smokeless tobacco: Never Used Comment: 3-4 Electric cigarettes daily ??? Alcohol Use: No Comment: denies h/o ETOH abuse ??? Drug Use: Not on file Comment: marijuana use (not medical marijuana), denies h/o drug abuse ??? Sexual Activity: Not on file Other Topics Concern ??? Not on file Social History Narrative ROS: Review of Systems Constitutional: Negative. HENT: Negative. Eyes: Negative. Respiratory: Negative. Cardiovascular: Negative. Gastrointestinal: Negative. Genitourinary: Negative for dysuria, hematuria and difficulty urinating. Musculoskeletal: Positive for back pain and neck pain. Allergic/Immunologic: Positive for environmental allergies. Negative for food allergies and immunocompromised state. Neurological: Negative. Hematological: Does not bruise/bleed easily. Psychiatric/Behavioral: Positive for sleep disturbance and dysphoric mood. Negative for suicidal ideas. The patient is nervous/anxious. PHYSICAL EXAM: BP 168/93 Pulse 100 Ht 166.4 cm (5' 5.5) Wt 78.019 kg (172 lb) BMI 28.18 kg/m2 SpO2 98% Physical Exam Constitutional: She is oriented to person, place, and time. She appears well- developed and well-nourished. HENT: Head: Normocephalic. Eyes: EOM are normal. Pupils are equal, round, and reactive to light. Neck: Neck supple. Cardiovascular: Normal rate, regular rhythm and normal heart sounds. Exam reveals no friction rub. No murmur heard. Pulmonary/Chest: Effort normal and breath sounds normal. Neurological: She is alert and oriented to person, place, and time. Reflex Scores: Tricep reflexes are 1+ on the right side and 1+ on the left side. Bicep reflexes are 1+ on the right side and 1+ on the left side. Brachioradialis reflexes are 1+ on the right side and 1+ on the left side. Cervical paraspinous tenderness: present, bilateral. bilateral tenderness: moderate, bilateral paraspinous spasm, limitation of flexion: mild, limitation of rotation to the right: moderate, limitation of rotation to the left: moderate, limitation of extension: moderate, all maneuvers with pain Tenderness overlying facet joints: present, bilateral. Decreased range of motion of the cervical spine. Motor strength: biceps 5/5, triceps 5/5, abduction 5/5, adduction 5/5 hoop machine operator 5/5, wrist extension 5/5, and wrist flexion 5/5, interossi 5/5 Sensation intact throughout the upper extremities. Skin: Skin is warm and dry. Psychiatric: She has a normal mood and affect. Her behavior is normal. Judgment and thought contentnormal. Ortho Exam RADIOLOGIC DATA: I have independently visualized the following studies : MRI: 09/29/12 Findings There is minimal anterolisthesis of C3 on C4 and degenerative disc changes at C3-C4 and C4-C5. The cord signal intensity appears normal. The bone marrow signal intensity is essentially normal with degenerative facet arthropathy noted. C2-C3: There is no canal or foraminal stenosis. C3-C4: There is a broad left paracentral disc protrusion. There is a left-sided uncovertebral osteophyte and facet degenerative change results in moderate left foraminal narrowing. C4-C5: There is a broad posterior disc bulge. There is mild narrowing of the central canal. There is mild foraminal narrowing. C5-C6: There is no canal or foraminal stenosis. C6-C7: There is a broad central disc protrusion that is slightly eccentric to the right, which does not create any significant canal or foraminal stenosis. C7-T1: There is no canal or foraminal stenosis. Impression Degenerative disc changes with mild narrowing of the central canal at C3-C4 and C4-C5. Left foraminal narrowing at C3-C4. ASSESSMENT: Assessment 1. Cervical spondylosis without myelopathy 2. Cervical disc displacement 3. Cervical radiculitis 4. Occipital neuralgia The patient has longstanding neck pain, upper extremity pain and symptoms consistent with occipitalneuralgia. She has an MRI from 2 years ago that shows disk displacement and cervical spondylosis, which could all be nociceptive generators. Her symptoms have been increasing and I recommend repeat cervical MRI and cervical spine plain films. Future consideration may be given to C2,3,4 MBB which may help both neck and occipital neuralgia symptoms. I would want to review imaging before making any decisions regarding interventional procedures. As far as medication is concerned, the patient may benefit from a change in NSAID to a different class, such as mobic. She also has difficult sleeping and may benefit from amitriptyline. I will leavethis to the discretion of the patient's PCP, given the multiple medications that the patient is on.With Seroquel use, QT interval increase could occur. Baseline ECG may be warranted. I would not start opioids at this time. PLAN: 1. MRI cervical spine, cervical spine plain films 2. Consideration of changing from celebrex to mobic. 3. Recommend Amitriptyline for use at night for sleep and pain. 4. Above medication changes will be left to the discretion of the patient's PCP given multiple other medications that the patient takes. 5. Reevaluation by Dr. Garcia after MRI. Thank you for the opportunity to participate in Katheryn's care. Please feel free to contact me with any questions. Sincerely, Rita Garcia MD documented in this encounter Plan of Treatment Upcoming Encounters Date Type Department Care Team (Late st Contact Info) Description 03/07/2024 10:00 AM EDT Appointment XRay at [address] [place] [phone] Tien Zurita MD [facility] [place] [address] 03/07/2024 10:40 AM EDT Office Visit Neurosurgery at [facility] [place] [address] Angel Hankins PA [facility] [address] [place] [address] documented as of this encounter Results * MRI cervical spine WO contrast (07/17/2014 9:32 AM EST) Anatomical Region Laterality Modality C-spine Magnetic Resonan ce 07/17/2014 9:32 AM EST Impressions 07/17/2014 11:40 AM EST IMPRESSION: Mid cervical spondylosis with multilevel moderate spinal canal stenosis as detailed above. Multilevel neural foraminal stenosis, moderate to severe on the left at C3-C4. Narrative 07/17/2014 11:40 AM EST EXAMINATION: MR Cindy NICHOLS Eddie CLINICAL HISTORY: neck pain cervical radiculitis increasing [...] in thickness. Findings at individual levels: C2-C3: ??No spinal canal stenosis. Right greater than left facet arthropathy and uncovertebral osteophytes contributes to moderate left neural foraminal stenosis. C3-C4: ??Posterior disc osteophyte complex and large left uncovertebral osteophyte mild-moderately left spinal canal and flatten the ventral cord. ??Left greater than right facet arthropathy contributes to moderate to severe left and mild right neural foraminal stenosis. C4-C5: Posterior disc osteophyte complex and right larger than left uncovertebral osteophyte contribute to narrowing spinal canal, moderate on the right and mild on the left. Facet arthropathy contributes to mild left and moderate right neural foraminal stenosis. C5-C6: ?Small posterior disc osteophyte complex contributes to mild spinal canal stenosis. Facet arthropathy contributes to mild left neural foraminal stenosis. C6-C7: ??Posterior disc osteophyte complex indents the ventral thecal sac. Buckling of the ligamentum flavum contributes to moderate spinal canal stenosis. Small uncovertebral osteophytes and mild facet arthropathy contribute to mild to moderate bilateral neural foraminal stenosis, left greater than right. ? C7-T1: ??No significant spinal canal or neural foraminal stenosis. ? Procedure Note Funmilayo Marrero MD - 07/17/2014 EXAMINATION: MR White WO Eddie CLINICAL HISTORY: neck pain cervical radiculitis increasing symptoms TECHNIQUE: MRI of the cervical spine was performed without contrast, radiculopathy protocol COMPARISON: MRI cervical spine 09/29/2012 FINDINGS: Alignment is normal. The regional bone marrow is normal in signal. Thevertebral body heights are maintained. The cervical cord is normal in signal andcaliber. The prevertebral soft tissues are normal in thickness. Findings at individual levels: C2-C3: No spinal canal stenosis. Right greater than left facetarthropathy and uncovertebral osteophytes contributes to moderate left neural foraminal stenosis. C3-C4: Posterior disc osteophyte complex and large left uncovertebral osteophyte mild-moderately left spinal canal and flatten the ventral cord.Left greater than right facet arthropathy contributes to moderate to severeleft and mild right neural foraminal stenosis. C4-C5: Posterior disc osteophyte complex and right larger than left uncovertebral osteophyte contribute to narrowing spinal canal, moderate onthe right and mild on the left. Facet arthropathy contributes to mild leftand moderate right neural foraminal stenosis. C5-C6: Small posterior disc osteophyte complex contributes to mildspinal canal stenosis. Facet arthropathy contributes to mild left neuralforaminal stenosis. C6-C7: Posterior disc osteophyte complex indents the ventral thecalsac. Buckling of the ligamentum flavum contributes to moderate spinal canalstenosis. Small uncovertebral osteophytes and mild facet arthropathy contribute tomild to moderate bilateral neural foraminal stenosis, left greater than right. C7-T1: No significant spinal canal or neural foraminal stenosis. IMPRESSION IMPRESSION: Mid cervical spondylosis with multilevel moderate spinal canal stenosisas detailed above. Multilevel neural foraminal stenosis, moderate to severeon the left at C3-C4. Rita Garcia MD IMG MRI ORDERABLES documented in this encounter Visit Diagnoses Diagnosis Cervical spondylosis without myelopathy Cervical disc displacement Displacement of cervical intervertebral disc without myelopathy Cervical radiculitis Brachial neuritis or radiculitis nos Occipital neuralgia Other syndromes affecting cervical region Cervical spondylosis without myelopathy documented in this encounter
--- OUTSIDE RECORDS SUMMARY | 2024-02-12 18:10 | XMS_ITS | Encounter Summary ---
Author Organization [facility] [place] [address] Care Team Providers Care Eye Glass Frame Polisher Name Role Phone Unavailable Primary Care Provider Unavailabl e Reason for Visit * Reason Comments Follow-up BBR 12/09/11 Encounter Details Date Type Department Care Team (Late st Contact Info) Description 02/15/2012 1:15 PM EDT [place] [address] Pauly Melo MD [facility] [place] [address] Breast hypertrophy (Primary Dx) Discharge Disposition: Home [...] * Patient Instructions* Pauly Melo MD - 02/15/2012 2:03 PM EDT 2. Continue scar massages to IMF incisions to desensitize. 3. Ok to switch to a regular bra but no under wire until incisions are no longer sensitive 4. Ok to gradually get back to normal activity as tolerated. 5. Ok to start physical therapy documented in this encounter Progress Notes * Pauly Melo MD - 02/15/2012 1:51 PM EDT PLASTIC SURGERY POST OP NOTE Pauly Melo MD Primary Care Physician: SANTI FITZGERALD APRN Reason for visit: F/U status post procedure Date of surgery: 12/09/11 Procedure(s): Bilateral breast reduction (Modified [place]) Subjective: Pt reports she is doing well. She has some discomfort along her IMF incisions. She is still wearing the post operative bra. Complications: None reported Meds: Current outpatient prescriptions [...] seroma, no hematoma Symmetric in shape and volume NAC sensate, good symmetry in size and elevation. A few surfacing resorbable sutures were removed today Impression: Katheryn Carranza is a 51 y.o. female was seen today for follow-up after the above procedure. Please see the operative note for details. She is doing well without complaints. Plan: 1. F/U 3 months or PRN for any concerns 2. Continue scar massages to IMF incisions. 3. Ok to switch to a regular bra but no under wire until full sensation returns. 4. Ok to resume normal activity as tolerated. There are no further restrictions. 5. Ok to start physical therapy I, Sylvia Hampton, am acting as scribe for Dr Melo. All work documented was performed by Dr Melo. ???I performed the above scribed service and agree with the accuracy of the note?? PAULY MELO MD documented in this encounter Miscellaneous Notes * Miscellaneous - Wei Videographer - 02/22/2012 11:13 AM EDT documented in this encounter Plan of Treatment Upcoming Encounters Date Type Department Care Team (Late st Contact Info) Description 03/07/2024 10:00 AM EDT Appointment XRay at [address] [place] [address] RubentTien MD [facility] [place] [address] 03/07/2024 10:40 AM EDT Office Visit Neurosurgery at [facility] [place] [phone] Angel Hankins PA [facility] [place] [address] documented as of this encounter Visit Diagnoses Diagnosis Breast hypertrophy- Primary Hypertrophy of breast documented in this encounter
--- OUTSIDE RECORDS SUMMARY | 2024-02-12 18:10 | XMS_ITS | Encounter Summary ---
Author Organization [facility] [place] [address] Care Team Providers Care Certified Surgical Technologist Name Role Phone Unavailable Primary Care Provider Unavailabl e Encounter Details Date Type Department Care Team (Late st Contact Info) Description 09/08/2012 Orders [place] [phone] Lucas Bergman MD [facility] [address] Social History Tobacco Use Types Packs/Day Years [...] 03/07/2024 10:00 AM EDT Appointment XRay at [address] [place] [phone] Tien Zurita MD [facility] [place] [address] 03/07/2024 10:40 AM EDT Office Visit Neurosurgery at [facility] [place] [address] Angel Hankins PA [facility] [place] [address] documented as of this encounter Procedures Procedure Name Priority Date/Time Associated Diagnosis Comments FILM LIBRARY STORAGE ONLY PAIN CLINIC C ARM Routine 09/08/2012 10:30 AM EDT documented in this encounter Results * Film Library-storage only pain clinic C-arm (09/08/2012 10:30 AM EDT) 09/08/2012 10:3 0 AM EDT Narrative RAD - 11/30/2013 1:56 AM EDT This is a non-reportable exam. Procedure Note Gerson Mckenna - 11/30/2013 This is a non-reportable exam. Lucas Bergman MD [facility] FILM LIBRARY ORD ERABLES RAD [address] [facility] [place] [address] documented in this encounter Visit Diagnoses Not on filedocumented in this encounter
--- OUTSIDE RECORDS SUMMARY | 2024-02-12 18:10 | XMS_ITS | Encounter Summary ---
[place] [address] Care Team Providers Care Machinery Mechanic Name Role Phone Unavailable Primary Care Provider Unavailabl e Reason for Visit * Reason Onset Date Comments Prior Authorization 09/29/2012 Encounter Details Date Type Department Care Team (Late st Contact Info) Description 09/29/2012 Telephone [place] [phone] Violet Mustafa plug and mold finisher Social History Tobacco Use Types Packs/Day Years [...] encounter Miscellaneous Notes * Telephone Encounter - Violet Mustafa RN - 09/29/2012 7:59 AM EDT Pain Management Center Preauthorization Request Patient: Katheryn Carranaz [id number] Fax received from [facility] requesting we obtain prior authorization for Lidoderm patchprescribed by Meron Jerry MD. RX insurance plan: [place] Medicaid RX insurance telephone: [phone] Patient Diagnosis: neck pain Previous medications attempted: ibuprofen, percocet, lidocaine patches tramadol, buspar, concerta The following action was taken after discussion with the guest services attendant: _x_ denied, provider and patient informed Patient must have tried and failed either 2 drugs from the anti-convulsant group or 2 drugs from the tri-cyclic depressant group , or one from each group. Violet Mustafa RN documented in this encounter Plan of Treatment Upcoming Encounters Date Type Department Care Team (Late st Contact Info) Description 03/07/2024 10:00 AM EDT Appointment XRay at [address] [place] [address] Tien Zurita MD [facility] [address] 03/07/2024 10:40 AM EDT Office Visit Neurosurgery at [facility] [place] [phone] Angel Hankins PA [facility] [address] documented as of this encounter Visit Diagnoses Not on filedocumented in this encounter
--- OUTSIDE RECORDS SUMMARY | 2024-02-12 18:10 | XMS_ITS | Encounter Summary ---
Author Organization [facility] [place] [address] Care Team Providers Care Manager Vehicle Name Role Phone Unavailable Primary Care Provider Unavailabl e Reason for Visit * Reason Comments Follow-up BBR Encounter Details Date Type Department Care Team (Latest Contact Info) Description 12/10/2011 10:00 AM EDT Clinical [place] [address] NURSE, PLASTIC SURGERY Pauly Melo MD [facility] [place] [address] Surgery aftercare (Primary Dx) Discharge Disposition: Home Anesthesia Record Procedure Summary Procedure Name Responsible Anesthesiologist Anesthesia Start Time Anesthesia Stop Time REDUCTION MAMMOPLASTY, EVA (WRVU 16.03) (Bilateral: Breast) Jessica Bryant MD 12/09/11 1545 12/09/11 1852 Events Date Time Event Comment 12/09/2011 1545 Start 1852 Stop Meds * Agents No agents on file. * Blood No blood administrations on file. Lines, Drains, and Airways Type Details Placement Removal Incision 12/09/11; breast; 02/01/22 (LDA cleanup utility RA#[id number]); 1715 (LDA cleanup utility RA#[id number]) 12/09/11 0000 by Lianne Dillon RN 02/01/22 1715 by Enrique Hernandez Drain/Device Site 12/09/11; Right; breast; collapsible closed device (#1:19 coy drain); 08/05/22 12/09/11 0000 by Lianne Dillon RN 08/05/22 0000 by Esther Leung RN Drain/Device Site 12/09/11; Left; [address] st; collapsible closed device (#2:19 coy drain); 08/05/22 12/09/11 0000 by Lianne Dillon RN 08/05/22 0000 by Esther Leung RN (RETIRED) Peripheral IV Line - Single Lumen 12/09/11; 1413; 12/09/11; 2200 12/09/11 1413 by Emani Kimball RN 12/09/11 2200 by Yue Shell RN Incision breast; 02/01/22 (LD A cleanup utility RA#[id number]); 1715 (LDA cleanup utility RA#[id number]) 12/09/11 1622 by 02/01/22 1715 by Enrique Hernandez documented in this encounter Social History Tobacco [...] as of this encounter Progress Notes * Katheryn York RN - 12/10/2011 6:26 PM EDT Reason For visit : S/P BBR Barker pattern yesterday Pt here for drain removal Subjective : patient reports 7 /10 for pain Objective : The drains were not removed secondary to dark serous fluid and both breasts remain veryswollen.dry dressings re applied - with instructions to change as needed. Both breasts are swollen and equal in size. Swelling is moderate on both right and the left. Ecchymosis is mild on the right and mild on the left. The incision lines are well approximated with Dermabond intact. The NACs have good perfusion. Nipples have normal projection. Areolar incisions are approximated with no drainage.Surgical bra fitted and in use. Patient denies nausea or vomiting. Assessment : There no sign of seroma or hematoma, post op swelling Plan : Reviewed Instructions on drain site and incisional care, showering, pain control, and activity restrictions as well as parameters for normal post operative swelling and bruising were reviewed.Pt agrees with plan of care,and was instructed to call with any concerns. Follow up appointment next Mon with nurses for drain removal. documented in this encounter Plan of Treatment Upcoming Encounters Date Type Department Care Team (Late st Contact Info) Description 03/07/2024 10:00 AM EDT Appointment XRay at [address] [place] [address] Tien Zurita MD [facility] [place] [place] [address] 03/07/2024 10:40 AM EDT Office Visit Neurosurgery at [facility] [place] [address] Angel Hankins PA [facility] [place] [place] [address] documented as of this encounter Visit Diagnoses Diagnosis Surgery aftercare- Primary Other specified aftercare following surgery documented in this encounter
--- OUTSIDE RECORDS SUMMARY | 2024-02-12 18:10 | XMS_ITS | Encounter Summary ---
Author Organization [facility] [place] [address] Care Team Providers Care Paper Production Engineer Name Role Phone Unavailable Primary Care Provider Unavailabl e Reason for Visit * Reason Onset Date Comments Medication Refill 12/14/2011 requesting mor e percocet Encounter Details Date Type Department Care Team (Late st Contact Info) Description 12/14/2011 Ref[place] [address] Pauly Melo MD [facility] [place] [address] Social History Tobacco Use Types Packs/Day Years [...] encounter Miscellaneous Notes * Telephone Encounter - Delaney Baker RN - 12/14/2011 11:35 AM EDT Client seen in clinic by this editorial writer yesterday for bilateral drain removal following a brooks patternBBR on 12/09/11. Drains were removed without complication. Breasts were soft, equal in size without sign of seroma ,hematoma or infection. (see 12/13/11 note) Client was prescribed 40 percocet on 12/09/11 and reported she was almost finished taking the percocet. She added she was also taking 800mg of ibuprofen , but inconsistently. This editorial writer noted that client was pale, groggy, anxious regarding drain removal. She was instructed in use of pain medication and agreed to schedule her ibuprofen three times a day, saving her percocet to HS. Client telephoned today requesting more percocet. She reports that she has finished the 40 percocet and due to her long time chronic pain issues (back and neck) for which her PCP prescribes vicodin and ibuprofen does not find that ibuprofen is helpful; She reports she has no increase in pain or changes from yesterday. However, the shooting pain she described at her breast due to swelling yesterday is not lessening following drain removal. An appointment was offered by this editorial writer for pain assessment. Patient declined today We discussed a new treatment plan as follows: DC ibuprofen. Begin Aleve bid Alternate with tylenol Continue wearing her compression bra. Call if pain worsens or does not improve and we will assess her breast pain in clinic tomorrow Client agrees with this plan of care documented in this encounter Plan of Treatment Upcoming Encounters Date Type Department Care Team (Late st Contact Info) Description 03/07/2024 10:00 AM EDT Appointment XRay at [address] [place] [address] Tien Zurita MD [facility] [place] [address] 03/07/2024 10:40 AM EDT Office Visit Neurosurgery at [facility] [place] [phone] Angel Hankins PA [facility] [place] [address] documented as of this encounter Visit Diagnoses Not on filedocumented in this encounter
--- OUTSIDE RECORDS SUMMARY | 2024-02-12 18:10 | XMS_ITS | Encounter Summary ---
Author Organization [facility] [place] [address] Care Team Providers Care Electric Dolly Operator Name Role Phone Unavailable Primary Care Provider Unavailabl e Reason for Visit * Reason Comments Cervicalgia Encounter Details Date Type Department Care Team (Latest Contact Info) Description 07/28/2012 2:00 PM EST Procedure visit [place] [address] Nadia Chavez MD [facility] [place] [address] Cervical spondylosis without myelopathy (Primary Dx) Discharge Disposition: Home Social History [...] Sign Reading Time Taken Comments Blood Pressure 113/69 07/28/2012 2:56 PM EST Pulse 83 07/28/2012 2:56 PM EST Temperature - - Respiratory Rate 16 07/28/2012 2:56 PM EST Oxygen Saturation 100% 07/28/2012 2:56 PM EST Inhaled Oxygen Concentration - - Weight 79.8 kg (176 lb) 07/28/2012 2:36 PM EST Height 165.1 cm (5' 5) 07/28/2012 2:36 PM EST Body Mass Index 29.29 07/28/2012 2:36 PM EST documented in this encounter Patient Instructions * Patient Instructions* Vicenta Alonzo LPN - 07/28/2012 2:53 PM EST Pain Management Center Discharge Instructions: You were seen by Dr. Nadia Chavez MD who performed cervical medial branch block. [x] You may resume your normal activities:TODAY You may shower today. DO NOT tub [...] 20 minutes. Do not apply heat today. Attempt to empty your bladder 4-6 hours after your procedure. You received the following medications: Sensorcaine. During regular business hours, please phone the [...] or proceed to your local emergency department. Vicenta Alonzo LPN Special instructions Pain Management Center Post -Procedure Pain Log Patient: Katheryn Carranza [id number] It is important for you to keep track of your pain after your procedure that took place 07/28/2012. This information will help your Provider to determine how to help reduce your pain. Today you had a procedure for pain in your N [place] Your pain level before the procedure in this area was 6/10. Your pain level immediately after your procedure was3/10. Time Pain Score Comments 1 hour 2 hours 3 hours 4 hours Please call the nurse in the Pain Management Center a day or two after your procedure and report the information above. She will assess your response to the procedure, and will recommend appropriate follow-up. documented in this encounter Progress Notes * Vicenta Alonzo LPN - 07/28/2012 2:38 PM EST Pre-Procedure Screening Questions: 1. Status: No 2. 3. Patient states they have a coal tram driver to transport after procedure? Yes 4. Patient taking antibiotics at present? No 5. NPO per Pain Management Center protocol? No 6. 7. Patient diabetic: No __ borderline (not treated with medications) __ managed with oral medications __ managed with injected medications 8. Patient routinely taking anticoagulants ? No Date stopped Current INR Patient Vital Signs documented in Doc Flowsheets associated with this encounter. Patient Discharge Instructions were reviewed with patient and copy provided to patient. documented in this encounter Procedure Notes * Peri Velez - 07/28/2012 3:01 PM ESTAssociated Order(s): NERVE BLOCK - CERVICAL/THORACIC Procedure(s): NERVE BLOCK - CERVICAL/THORACIC Pre-Procedure Diagnose(s): Cervical spondylosis without myelopathy CERVICAL MEDIAL BRANCH BLOCKS Date of Service: 07/28/2012 Patient: Katheryn Carranza Provider: PERI VELEZ MD Katheryn Carranza has been referred to the Pain Management Center for cervical medial branch blocks. COMMENTS: @ARNOLD@ Ms. Carranza was interviewed and the medical record reviewed. There were no medical, pharmacologic, radiographic or other structural contraindications to attempting fluoroscopically guided local anesthetic cervical medial branch blocks. Risks and expected side effects as well as potential benefit of the procedure were reviewed with Ms. Carranza, and her voiced concerns addressed. The printed consent form was signed and witnessed. Standard time-out procedure was performed. Ms. Carranza was placed in the prone position on the fluoroscopy table and automated blood pressure cuff and pulse oximeter applied. The skin entry points for approaching the anatomic target points of the segmental medial branches of Left C3, C4 and C5 were identified with fluoroscopy and marked. Following thorough Chlorhexadine preparation of the skin and draping and 1% lidocaine infiltration of the skin entry points and subcutaneous tissues, a 25gauge spinal needle was placed under fluoroscopic guidance down on to the target point for each respective segmental medial branch. Position was confirmed in A/P lateral view. At each point 0.3ml 0.5% bupivicaine was injected. Ms. Carranza's vital signs were stable throughout the procedure and were as recorded in the docflowsheet by the nursing staff. Follow up plans and appointments were discussed with Ms. Carranza. Ms. Carranza was instructed to keep careful note of how the usual pain was modified by these injections. Specifically, the patient was asked to keep a pain diary for the next 24 hours using a numeric pain scale of 0-10 and report these results at the follow-up visit. Post procedure instruction was given as documented in the nursing documentation and having met discharge criteria, she was discharged from the Pain Management Center. COMMENTS: No apparent complications Pain level pre 6, post 3 If criteria met, Ms. Carranza will proceed to cervical radiofrequency, otherwise will follow-up with Roxie Mcgraw CC: Sailaja Ross, JACKIE @PCPADD@ I was the attending physician supervising the resident in the above care and I was present with theresident for the entire procedure. NADIA CHAVEZ MD Pain Clinic [facility] documented in this encounter Miscellaneous Notes * Miscellaneous - Provider, Scanning - 08/02/2012 8:48 AM EST documented in this encounter Plan of Treatment Upcoming Encounters Date Type Department Care Team (Late st Contact Info) Description 03/07/2024 10:00 AM EDT Appointment XRay at [address] [place] [address] RubentTien MD [facility] [place] [place] [address] 03/07/2024 10:40 AM EDT Office [place] [address] Angel Hankins PA [facility] [place] [address] documented as of this encounter Procedures Procedure Name Priority Date/Time Associated Diagnosis Comments NERVE BLOCK - CERVICAL/THORACIC Routine 07/31/2012 9:18 PM EST Cervical spondylosis without myelopathy documented in this encounter Results * NERVE BLOCK - CERVICAL/THORACIC (07/31/2012 9:18 PM EST) Narrative Nadia Chavez MD - 07/31/2012 9:18 PM EST Nadia Chavez MD ? 07/31/2012 ??9:18 PM CERVICAL MEDIAL BRANCH BLOCKS Date of Service: ??07/28/2012 Patient: ??Katheryn Carranza ?? Provider: ??PERI VELEZ MD Katheryn Carranza has been referred to the Pain Management Center for cervical medial branch blocks. ?? COMMENTS: @ARNOLD@ Ms. Carranza was interviewed and the medical record reviewed. ?? There were no medical, pharmacologic, radiographic or other structural contraindications to attempting fluoroscopically guided local anesthetic cervical medial branch blocks. ??Risks and expected side effects as well as potential benefit of the procedure were reviewed with Ms. Carranza, and her voiced concerns addressed. ??The printed consent form was signed and witnessed. ?? Standard time-out procedure was performed. Ms. Carranza was placed in the prone position on the fluoroscopy table and automated blood pressure cuff and pulse oximeter applied. ??The skin entry points for approaching the anatomic target points of the segmental medial branches of Left C3, C4 and C5 were identified with fluoroscopy and marked. ??Following thorough Chlorhexadine preparation of the skin and draping and 1% lidocaine infiltration of the skin entry points and subcutaneous tissues, a 25 gauge spinal needle was placed under fluoroscopic guidance down on to the target point for each respective segmental medial branch. Position was confirmed in A/P lateral view. At each point 0.3ml 0.5% bupivicaine was injected. ?? Ms. Carranza's vital signs were stable throughout the procedure and were as recorded in the docflowsheet by the nursing staff. Follow up plans and appointments were discussed with Ms. Carranza. ?? Ms. Carranza was instructed to keep careful note of how the usual pain was modified by these injections. ??Specifically, the patient was asked to keep a pain diary for the next 24 hours using a numeric pain scale of 0-10 and report these results at the follow-up visit. ??Post procedure instruction was given as documented in the nursing documentation and having met discharge criteria, she was discharged from the Pain Management Center. COMMENTS: No apparent complications Pain level pre 6, post 3 If criteria met, ??Ms. Carranza will proceed to cervical radiofrequency, otherwise will follow-up with Roxie Mcgraw CC: Sailaja Ross APRN @PCPADD@ I was the attending physician supervising the resident in the above care and I was present with the resident for the entire procedure. NADIA CHAVEZ MD Pain Clinic [facility] Procedure Note Peri Velez - 07/28/2012 3:01 PM EST CERVICAL MEDIAL BRANCH BLOCKS Date of Service: 07/28/2012 Patient: Katheryn Carranza Provider: PERI VLEEZ MD Katheryn Carranza has been referred to the Pain Management Center forcervical medial branch blocks. COMMENTS: @ARNOLD@ Ms. Carranza was interviewed and the medical record reviewed. There were nomedical, pharmacologic, radiographic or other structural contraindicationsto attempting fluoroscopically guided local anesthetic cervical medialbranch blocks. Risks and expected side effects as well as potentialbenefit of the procedure were reviewed with Ms. Carranza, and her voicedconcerns addressed. The printed consent form was signed and witnessed.Standard time-out procedure was performed. Ms. Carranza was placed in the prone position on the fluoroscopy table andautomated blood pressure cuff and pulse oximeter applied. The skin entrypoints for approaching the anatomic target points of the segmental medialbranches of Left C3, C4 and C5 were identified with fluoroscopy and marked. Following thoroughChlorhexadine preparation of the skin and draping and 1% lidocaineinfiltration of the skin entry points and subcutaneous tissues, a 25 gaugespinal needle was placed under fluoroscopic guidance down on to the targetpoint for each respective segmental medial branch. Position was confirmedin A/P lateral view. At each point 0.3ml 0.5% bupivicaine was injected. Ms. Carranza's vital signs were stable throughout the procedure and were asrecorded in the docflowsheet by the nursing staff. Follow up plans and appointments were discussed with Ms. Carranza. was instructed to keep careful note of how the usual pain wasmodified by these injections. Specifically, the patient was asked to keepa pain diary for the next 24 hours using a numeric pain scale of 0-10 andreport these results at the follow- up visit. Post procedure instructionwas given as documented in the nursing documentation and having metdischarge criteria, she was discharged from the Pain Management Center. COMMENTS: No apparent complications Pain level pre 6, post 3 If criteria met, Ms. Carranza will proceed to cervical radiofrequency,otherwise will follow-up with Roxie Mcgraw CC: Sailaja Ross, JACKIE @PCPADD@ I was the attending physician supervising the resident in the above careand I was present with the resident for the entire procedure. NADIA CHAVEZ MD Pain Clinic [facility] Nadia Chavez MD PROCEDURE/MINOR SURGICAL ORDERABLES documented in this encounter Visit Diagnoses Diagnosis Cervical spondylosis without myelopathy- Primary documented in this encounter Administered Medications Inactive Administered Medications - up to 3 most recent administrations Medication Order MAR Action Action Date Dose Rate Site BUpivacaine (PF) (MARCAINE) 0.5 % (5 mg/mL) injection 50 mg 50 mg (10 mL), Subcutaneous, ONCE, 1 dose, On Tue07/28/12 at 1530, Wasted 20 ml, Routine Given 07/28/2012 3:30 PM EST 50 mg documented in this encounter
--- OUTSIDE RECORDS SUMMARY | 2024-02-12 18:10 | XMS_ITS | Encounter Summary ---
Author Organization [facility] [place] [address] Care Team Providers Care Bakery Team Member Name Role Phone Unavailable Primary Care Provider Unavailabl e Encounter Details Date Type Department Care Team (Late st Contact Info) Description 10/27/2012 Telephone [place] [address] Meron Jerry MD [facility] [place] [address] Social History Tobacco Use Types Packs/Day Years [...] * Telephone Encounter - [place] Callaway - 10/27/2012 7:56 AM EDT Ms. Carranza called on 10/24/12 leaving a message to request next steps after her MRI. Ms. Carranza indicated that the Lidocaine patch was denied by her insurance and the Metaxalone is not helping very much because she is still having pain. Ms. Carranza left another message on 10/26/12 indicating that she made a follow-up appointment with Dr. Jerry on 11/09/12 to discuss next steps. Ava Callaway documented in this encounter Plan of Treatment Upcoming Encounters Date Type Department Care Team (Late st Contact Info) Description 03/07/2024 10:00 AM EDT Appointment XRay at [address] [place] [address] Tien Zurita MD [facility] [address] 03/07/2024 10:40 AM EDT Office Visit Neurosurgery at [facility] [place] [phone] Angel Hankins PA [facility] [place] [address] documented as of this encounter Visit Diagnoses Not on filedocumented in this encounter
--- OUTSIDE RECORDS SUMMARY | 2024-02-12 18:10 | XMS_ITS | Encounter Summary ---
Author Organization [facility] [place] [address] Care Team Providers Care Electrical Continuity Inspector Name Role Phone Unavailable Primary Care Provider Unavailabl e Reason for Visit * Reason Comments Pain Management Cervicalgia Encounter Details Date Type Department Care Team ([facility] st Contact Info) Description 08/01/2014 10:45 AM EST Follow-[place] [phone] Rita Garcia MD [address] [place] [address] Rita Garcia MD [facility] [place] [address] Cervical spondylosis without myelopathy; Occipital neuralgia Discharge Disposition: Home Social History [...] Sign Reading Time Taken Comments Blood Pressure 132/73 08/01/2014 10:51 AM EST Pulse 84 08/01/2014 10:51 AM EST Temperature - - Respiratory Rate - - Oxygen Saturation 100% 08/01/2014 10:51 AM EST Inhaled Oxygen Concentration - - Weight 83.5 kg (184 lb) 08/01/2014 10:51 AM EST Height 166.4 cm (5' 5.5) 08/01/2014 10:51 AM ES T Body Mass Index 30.15 08/01/2014 10:51 AM EST documented in this encounter Progress Notes * Rita Garcia MD - 08/01/2014 10:52 AM EST Katheryn Carranza is a 53 y.o. female [...] they helped for a couple of weeks. Shehas not had an injection since 12/2012. The patient is on neurontin 300 mg TID. It seemed to help the paresthesias; it did not decrease thepain. The patient was on celebrex currently, without relief. I had recommended a change to another NSAID,but this was not changed. The patient started amitriptyline. She is not noting any change in pain. She has some difficulty falling asleep, but can sleep through the night. -The patient has trialed interventional pain management: Left cervical MBNRF C4,5,6; she does not recall if it was helpful. The patient's pain level today is a 5/ 10. The patient has been evaluated by a neurologist about one year ago. She did not receive medication.According to the patient, it seems that they may have said her pain was cervicogenic. Since the patient's last visit they have had MRI and plain films of the Cervical spine. The resultsare reviewed today. ALLERGIES: Allergenic extracts and Zoloft MEDICATIONS: Current Outpatient Prescriptions Medication Sig Dispense Refill ??? amitriptyline (ELAVIL) 10 mg Tablet Take [...] Take 3 mg by mouth nightly. ??? ketoconazole (NIZORAL) 2 % cream Apply topically 2 times daily. No current facility-administered medications for this visit. PHYSICAL EXAM: BP 132/73 Pulse 84 Ht 166.4 cm (5' 5.5) Wt 83.462 kg (184 lb) BMI 30.14 kg/m2 SpO2 100% Physical Exam Constitutional: She is oriented to person, place, and time. She appears well- developed and well-nourished. Neurological: She is alert and oriented to person, place, and time. Cervical paraspinous tenderness: present, bilateral. bilateral tenderness: moderate, bilateral paraspinous spasm, limitation of flexion: mild, limitation of rotation to the right: moderate, limitation of rotation to the left: moderate, limitation of extension: moderate, all maneuvers with pain Tenderness overlying facet joints: present, bilateral. Decreased range of motion of the cervical spine. Psychiatric: She has a normal mood and [...] and C4-C5. Left foraminal narrowing at C3-C4. I have independently visualized the following studies : X-ray: 07/09/14 Cervical Spine 2 or 3 Views CLINICAL HISTORY: 53 yo female with neck pain, occipital neuralgia, cervical spondylosis TECHNIQUE: COMPARISON: MR 09/29/2012. FINDINGS: AP and lateral views of the cervical spine standing with imaging from C1 to C7. Anterior posterior spinal alignment is maintained as well as the spinal lamina line. There is significant bony overgrowth posterior facets at C2-3. Anterior osteophytes at C3-4 C4-5 and C5-6 are present. Uncovertebral joint degenerative changes are noted on the AP view . IMPRESSION IMPRESSION: Significant degenerative changes and bony overgrowth with posterior facet arthropathy more left-sided than right. Bulky anterior osteophytes noted at C3-4 C4-5 and C5-6. MRI: 07/17/14 CLINICAL HISTORY: neck pain cervical [...] ASSESSMENT: 1. Cervical spondylosis without myelopathy 2. Occipital neuralgia Assessment The patient has longstanding neck pain, upper extremity pain and symptoms consistent with occipitalneuralgia. She has an MRI from 2 years ago that shows disk displacement and cervical spondylosis, which could all be nociceptive generators. Her symptoms have been increasing and cervical MRI and cervical spine plain films were repeated. Recent MRI and plain films were reviewed today. There may have been some worsening of degenerative changes at C2-3, which may be responsible for headache symptoms. The patient has unchanged cervical spondylosis at multiple levels. Today we discussed trialing C2,3,4 MBB which may help both neck and occipital neuralgia symptoms. Symptoms are worse on the left and this side will be treated first. The patient will need initial andconfirmatory blocks. Will proceed to RF if criteria met. As far as medication is concerned, the patient may benefit from a change in NSAID to a different class, such as mobic. I would not start opioids at this time. PLAN: 1. LEFT C2,3,4 MBB which may help both neck and occipital neuralgia symptoms. Symptoms are worse onthe left and this side will be treated first. The patient will need initial and confirmatory blocks. Will proceed to RF if criteria met. 2. Consideration of changing from celebrex to mobic. 3. Continue Amitriptyline for use at night for sleep and pain. 4. Will treat right side after left side is completely treated, if right sided symptoms persist. 5. Reevaluation by Dr. Garcia after MBB/RF if the patient has ongoing upper extremity pain. Rita Garcia MD documented in this encounter Plan of Treatment Upcoming Encounters Date Type Department Care Team (Late st Contact Info) Description 03/07/2024 10:00 AM EDT Appointment XRay at [address] [place] [phone] Tien Zurita MD [facility] [place] [address] 03/07/2024 10:40 AM EDT Office Visit Neurosurgery at [facility] [place] [address] Angel Hankins PA [facility] [place] [address] documented as of this encounter Visit Diagnoses Diagnosis Cervical spondylosis without myelopathy Occipital neuralgia Other syndromes affecting cervical region documented in this encounter
--- OUTSIDE RECORDS SUMMARY | 2024-02-12 18:10 | XMS_ITS | Encounter Summary ---
[place] [address] Care Team Providers Care Silver Chaser Name Role Phone Unavailable Primary Care Provider Unavailabl e Encounter Details Date Type Department Care Team (Late st Contact Info) Description 09/09/2014 Telephone [place] [address] Asha Weiner LPN Social History Tobacco Use Types Packs/Day Years [...] encounter Miscellaneous Notes * Telephone Encounter - Asha Weiner LPN - 09/09/2014 4:07 PM EDT Katheryn Carranza :1960 Message left: I left a message on answering machine Ms. Carranza at 4:07 PM regarding her upcoming Left cervical medial branch block with Dr. Rita Garcia MD. Message included the followin. Patient instructed to arrive at 1040 (30 minutes prior to procedure start time) on 09/11/14 (date of procedure) with their maintenance truck driver. 2. Following instructions left in the [...] your body within the last two weeks? Asha Weiner LPN documented in this encounter Plan of Treatment Upcoming Encounters Date Type Department Care Team (Late st Contact Info) Description 03/07/2024 10:00 AM EDT Appointment XRay at [address] [place] [address] Tien Zurita MD [facility] [place] [address] 03/07/2024 10:40 AM EDT Office Visit Neurosurgery at [facility] [place] [phone] Angel Hankins PA [facility] [place] [address] documented as of this encounter Visit Diagnoses Not on filedocumented in this encounter
--- OUTSIDE RECORDS SUMMARY | 2024-02-12 18:10 | XMS_ITS | Encounter Summary ---
Author Organization [facility] Address [facility] [place] [address] Care Team Providers Care Open Hearth Furnace Operator Helper Name Role Phone Unavailable Primary Care Provider Unavailabl e Encounter Details Date Type Department Care Team (Latest Contact Info) Description 09/29/2012 3:06 PM EDT - 09/29/2012 11:59 PM EDT Hospital [place] [address] Rita Garcia MD [facility] [place] [address] Discharge Disposition: Home Social History Tobacco Use [...] Sig Dispensed Refills Start Date End Date QUEtiapine (SEROquel) 100 mg tablet Take 100 mg by mouth nightly. multivitamin (THERAGRAN) tablet Take 1 tablet by mouth daily. atenolol (TENORMIN) 50 mg tablet Take 50 mg by mouth daily. lidocaine (LIDODERM) 5 %(700 mg/patch) Place 1 patch onto the skin every 12 hours. 10 patch 1 09/27/2012 07/09/2014 OXYcodone-acetaminophen (PERCOCET) 5-325 mg per tablet Take 1 tablet by mouth every 4 hours as needed for Pain. 12 tablet 0 09/08/2012 11/09/2012 metaxalone (SKELAXIN) 800 mg tablet Take 800 mg by mouth 3 times daily. 02/24/2015 busPIRone (BUSPAR) 15 mg tablet Take 15 [...] as of this encounter Progress Notes * Elen Kemp RN - 09/29/2012 4:47 PM EDT VIR MRI PRE-SEDATION ASSESSMENT NOTE NAME: Katheryn Carranza AGE: 51 y.o. : 1960 Female [phone] (home) No relevant phone numbers on file. PCP HEAD OF OPERATION AND LOGISTICS SANTI FITZGERALD APRN None Allergies Allergen Reactions ??? Pollen,Micronized ??? Zoloft (Sertraline) Nausea And Vomiting Date/Time of call: September 29, 2012/4:47 PM/ PREVIOUS MRI SCAN? no HEIGHT: 5 5 WEIGHT: 176lb HAVE YOU EVER BEEN DX. WITH SLEEP APNEA? DO YOU USE CPAP/BIPAP? SCHEDULED SCAN: MRI lumbar SUBJECTIVE: I am not really claustrophobic, but doctor told me that I will get a pill ASSESSMENT: Appropriate for PO sedation. PLAN: Lorazepam PO per protocol. PRIOR SCAN DATE/S SEDATION TYPE SUCCESSFUL 09/29/12 MRI lumbar spine Ativan 1mg po x1 yes PT WILL ARRIVE 1 HR. BEFORE SCHEDULED SCAN AND HAVE A SUPPLY CHAIN MANAGER AVAILABLE. PT STATED TO FINANCIAL ANALYST THAT THE SEDATION WAS EFFECTIVE FOR SCAN: Y N COMMENTS: This patient has been informed that they require a car pick up driver to drive them home after this procedure. In the absence of a car pick up driver, IR will not be able to perform this procedure and will need to reschedule. Pt verbalized understanding of these instructions during the pre-procedure education via phone. documented in this encounter Plan of Treatment Upcoming Encounters Date Type Department Care Team (Late st Contact Info) Description 03/07/2024 10:00 AM EDT Appointment XRay at [address] [place] [address] Tien Zurita MD [facility] [place] [address] 03/07/2024 10:40 AM EDT Office Visit Neurosurgery at [facility] [place] [address] Angel Hankins PA [facility] [place] [address] documented as of this encounter Procedures Procedure Name Priority Date/Time Associated Diagnosis Comments MRI CERVICAL SPINE WO CONTRAST Routine 09/29/2012 4:30 PM EDT documented in this encounter Results * MRI cervical spine WO contrast (09/29/2012 4:30 PM EDT) Anatomical Region Laterality Modality C-spine Magnetic Resonan ce 09/29/2012 4:30 PM EDT Narrative 09/29/2012 6:22 PM EDT Examination MR Cindy WO Eddie Clinical History WORSENING NECK PAIN/ISOLATED EPISODES OF ARM PAIN Comparison None Technique Noncontrast MRI of the cervical spine. Findings There is minimal anterolisthesis of C3 on C4 and degenerative disc changes at C3-C4 and C4-C5. ??The cord signal intensity appears normal. ??The bone marrow signal intensity is essentially normal with degenerative facet arthropathy noted. C2-C3: ??There is no canal or foraminal stenosis. C3-C4: ??There is a broad left paracentral disc protrusion. ??There is a left-sided uncovertebral osteophyte and facet degenerative change results in moderate left foraminal narrowing. C4-C5: ??There is a broad posterior disc bulge. ??There is mild narrowing of the central canal. ??There is mild foraminal narrowing. C5-C6: ??There is no canal or foraminal stenosis. C6-C7: ??There is a broad central disc protrusion that is slightly eccentric to the right, which does not create any significant canal or foraminal stenosis. C7-T1: ??There is no canal or foraminal stenosis. Impression Degenerative disc changes with mild narrowing of the central canal at C3-C4 and C4-C5. ??Left foraminal narrowing at C3-C4. Procedure Note Elia Crowe MD - 09/29/2012 Examination MR White WO Eddie Clinical History WORSENING NECK PAIN/ISOLATED EPISODES OF ARM PAIN Comparison None Technique Noncontrast MRI of the cervical spine. Findings There is minimal anterolisthesis of C3 on C4 and degenerative disc changesat C3-C4 and C4-C5. The cord signal intensity appears normal. The bonemarrow signal intensity is essentially normal with degenerative facet arthropathy noted. C2-C3: There is no canal or foraminal stenosis. C3-C4: There is a broad left paracentral disc protrusion. There is a left-sided uncovertebral osteophyte and facet degenerative change resultsin moderate left foraminal narrowing. C4-C5: There is a broad posterior disc bulge. There is mild narrowing ofthe central canal. There is mild foraminal narrowing. C5-C6: There is no canal or foraminal stenosis. C6-C7: There is a broad central disc protrusion that is slightlyeccentric to the right, which does not create any significant canal or foraminalstenosis. C7-T1: There is no canal or foraminal stenosis. Impression Degenerative disc changes with mild narrowing of the central canal atC3-C4 and C4-C5. Left foraminal narrowing at C3-C4. Socorro Jain MD IMG MRI ORDERABLES documented in this encounter Visit Diagnoses Not on filedocumented in this encounter Administered Medications Inactive Administered Medications - up to 3 most recent administrations Medication Order MAR Action Action Date Dose Rate Site LORazepam (ATIVAN) tablet 1-2 mg 1-2 mg, Oral, ONCE, 1 dose, On Tue09/29/12 at 0845, Angio/IR (Day of Procedure), STAT Given 09/29/2012 3:30 PM EDT 1 mg documented in this encounter
--- OUTSIDE RECORDS SUMMARY | 2024-02-12 18:10 | XMS_ITS | Encounter Summary ---
Author Organization [facility] [place] [address] Care Team Providers Care Template Fitter Name Role Phone Unavailable Primary Care Provider Unavailabl e Encounter Details Date Type Department Care Team (Late st Contact Info) Description 07/03/2012 [place] [phone] Maria Peoples, RADIATOR TESTER Social History Tobacco Use Types Packs/Day Years [...] 10:00 AM EDT Appointment XRay at [address] [place] [phone] Tien Zurita MD [facility] [place] [address] 03/07/2024 10:40 AM EDT Office [place] [phone] Angel HankinsJOANNA [facility] [place] [address] documented as of this encounter Visit Diagnoses Not on filedocumented in this encounter
--- OUTSIDE RECORDS SUMMARY | 2024-02-12 18:10 | XMS_ITS | Encounter Summary ---
Author Organization [facility] [place] [address] Care Team Providers Care Paraeducator Name Role Phone Unavailable Primary Care Provider Unavailabl e Reason for Visit * Reason Onset Date Comments Post Procedure Call 09/13/2012 Encounter Details Date Type Department Care Team (Late st Contact Info) Description 09/13/2012 [place] [phone] Page Bhardwaj RN Post Procedure Call Social History Tobacco Use Types Packs/Day Years [...] encounter Miscellaneous Notes * Telephone Encounter - Page Bhardwaj RN - 09/13/2012 2:06 PM EDT Ms. Carranza calls today after having had a Left cervical RF with DR. Bergman on 09/11/12. Patient calls today to say that she continues to have some post- procedure pain and has used all of the Percocet provided by Dr. Bergman. Patient states that her has inspected her injection sites and thereis not evidence of redness or any other signs of infection. She states that her PCP will not provide another Rx for Percocet and is asking if Dr. Bergman will write another Rx for the Percocet. I discussed with Dr. Bergman, then a return call was made to the patient. Advised Ms. Carranza that Dr. Bergman did not wish to provide another Rx for Percocet as he feels that patient should be able to manage her post-procedure pain with non-prescription NSAID at this time.Advised patient that she should continue to apply ice and heat intermittently to skin for comfort as well. If patient pain should become worse of if she has other concerns she should of course call the Pain Management Center to discuss further. Patient verbalized her understanding and agreement to this plan. Patient knows how to call the Pain Management Center and understands that they may call at any timeshould they have further questions or concerns. documented in this encounter Plan of Treatment Upcoming Encounters Date Type Department Care Team (Late st Contact Info) Description 03/07/2024 10:00 AM EDT Appointment XRay at [address] [place] [address] [facility] [place] [address] 03/07/2024 10:40 AM EDT Office Visit Neurosurgery at [facility] [place] [address] [facility] [place] [address] documented as of this encounter Visit Diagnoses Not on filedocumented in this encounter
--- OUTSIDE RECORDS SUMMARY | 2024-02-12 18:10 | XMS_ITS | Encounter Summary ---
Author Organization [facility] [place] [address] Care Team Providers Care C S S Representative Name Role Phone Unavailable Primary Care Provider Unavailabl e Reason for Visit * Reason Comments Follow-up s/p bbr 12/09/11, pain under both breasts and under arms Encounter Details Date Type Department Care Team (Late st Contact Info) Description 09/10/2014 10:45 AM EDT Follow-[place] [phone] Pauly Melo MD [facility] [place] [address] H/O bilateral breast reduction surgery Discharge Disposition: Home Social History Tobacco Use [...] Sign Reading Time Taken Comments Blood Pressure 135/90 09/10/2014 11:16 AM EDT Pulse 80 09/10/2014 11:16 AM EDT Temperature - - Respiratory Rate - - Oxygen Saturation - - Inhaled Oxygen Concentration - - Weight 87.5 kg (193 lb) 09/10/2014 11:16 AM EDT Height 166.4 cm (5' 5.5) 09/10/2014 11:16 AM ED T Body Mass Index 31.63 09/10/2014 11:16 AM EDT documented in this encounter Patient Instructions * Patient Instructions* Pauly Melo MD - 09/10/2014 12:00 PM EDT Plan: 1. Follow up PRN 2. Continue mammograms annually 3. Follow up with pain clinic in regards to medical management options documented in this encounter Progress Notes * Pauly Melo MD - 09/10/2014 11:52 AM EDT PLASTIC SURGERY POST OP NOTE Pauly Melo MD Primary Care Physician: SANTI FITZGERALD APRN Reason for visit: F/U status post procedure Date of surgery: 12/09/11 Procedure(s): Bilateral breast reduction (Modified [place]) Subjective: Pt returns today for the first time since since 02/2012 with complaints of pain in her lateral breast that shoots up into her right axilla. She also reports pain under her breasts. She reports that she is still unable to wear a bra. She reports the pain is a constant 5/10 burning pain which becomes worse with touch. She has not tried pain medication. She has consulted with her pain specialist who manages her headaches, she had a consult with the pain clinic who recommended she followup in the PRS clinic. The medication she takes for this does not help with her breast related pain.She is happy with her reduction overall. Her last mammogram was normal. Complications: None reported Meds: Current Outpatient Prescriptions on File Prior to [...] Take 40 mg by mouth daily. ??? baclofen (LIORESAL) 10 mg tablet Take 10 mg by mouth 3 times daily. ??? ketoconazole (NIZORAL) 2 % cream Apply topically 2 times daily. ??? [DISCONTINUED] methylphenidate (CONCERTA) 18 mg CR tablet Take 36 mg by mouth every morning. ??? [DISCONTINUED] methylphenidate (CONCERTA) 27 mg CR tablet Take 27 mg by mouth every evening. ??? [DISCONTINUED] eszopiclone (LUNESTA) 3 mg Tab Take 3 mg by mouth nightly. No current facility-administered medications on file prior to visit. All: Allergenic extracts; Tramadol; and Zoloft Examination: BP 135/90 Pulse 80 Ht 166.4 cm (5' 5.5) Wt 87.544 kg (193 lb) BMI 31.62 kg/m2 Gen: WDWN, NAD Neuro: Alert, oriented, follows, Ambulates. HEENT: Perrl eomi fs Extrem: wwp, no c/e/e, no lesions, no rashes Bilateral breasts scars have healed well, pale, flat. Good volume symmetry Nipple position is symmetric No palpable masses or fat necrosis Impression: Katheryn Carranza is a 53 y.o. female was seen today for follow-up s/p BBR with complaints of persistent breast/axillary pain. We discussed that she has a good result from surgery and the pain she is experiencing is not a normal part of healing. I recommended she follow up with the pain clinic to discuss management options. Plan: 1. Follow up PRN 2. Continue mammograms per PCP recommendations 3. Follow up with pain clinic in regards to medical management options I, Ramona Kaufman, am acting as scribe for Dr Melo. All work documented was performed by Dr Melo. ???I performed the above scribed service and agree with the accuracy of the note?? Pauly Melo MD documented in this encounter Plan of Treatment Upcoming Encounters Date Type Department Care Team (Late st Contact Info) Description 03/07/2024 10:00 AM EDT Appointment XRay at [address] [place] [address] Tien Zurita MD [facility] [place] [address] 03/07/2024 10:40 AM EDT Office Visit Neurosurgery at [facility] [place] [phone] Angel Hankins, JOANNA [facility] [place] [address] documented as of this encounter Visit Diagnoses Diagnosis H/O bilateral breast reduction surgery Other postprocedural status documented in this encounter
--- OUTSIDE RECORDS SUMMARY | 2024-02-12 18:10 | XMS_ITS | Encounter Summary ---
Author Organization [facility] [place] [address] Care Team Providers Care Software Asset Management Analyst Name Role Phone Unavailable Primary Care Provider Unavailabl e Reason for Visit * Reason Comments Pain Management Encounter Details Date Type Department Care Team (Late st Contact Info) Description 11/29/2012 1:45 PM EDT Follow-[place] [phone] Meron Jerry MD [facility] [place] [address] Myofascial pain (Primary Dx) Discharge Disposition: Home Social History [...] Sign Reading Time Taken Comments Blood Pressure 148/90 11/29/2012 1:56 PM EDT Pulse 84 11/29/2012 1:56 PM EDT Temperature - - Respiratory Rate - - Oxygen Saturation 100% 11/29/2012 1:56 PM EDT Inhaled Oxygen Concentration - - Weight 79.8 kg (176 lb) 11/29/2012 1:56 PM EDT Height 166.4 cm (5' 5.5) 11/29/2012 1:56 PM EDT Body Mass Index 28.84 11/29/2012 1:56 PM EDT documented in this encounter Progress Notes * Yasmani Rueda MD - 12/01/2012 10:58 AM EDT I was the attending physician supervising the resident in the above care. For the purposes of billing, the resident provided the care. * Meron Jerry - 11/29/2012 2:55 PM EDT Occipital Nerve Block Date of Service: 11/29/2012 Patient: Katheryn Carranza 1960 52 y.o. female Provider: MERON JERRY MD Ms. Carranza presents to the Pain Clinic today for an Occipital Nerve Block. She was initially referred by Dr. Ross. Ms. Carranza is complaining of bilateral occipital headache that begins at the occipital protuberance without radiation. Physical Examination: Filed Vitals: 11/29/12 1356 BP: 148/90 Pulse: 84 NAD, appropriate. normal affect Procedure Ms. Carranza was interviewed and examined. The risks and benefits of the injection including but not limited to bleeding, infection, nerve irritation/damage, worsening of headache, intra-arterial injection and seizure were discussed. All risks, benefits and options were discussed, which Ms. Carranza seemed to understand and informed consent was signed Ms. Carranza sat in a chair with her head flexed. The point of tenderness at the midpoint between theoccipital notch and the mastoid process was palpated. The skin was prepped in sterile fashion with Chlorhexidine. After palpation and location of the right greater occipital nerve groove and the occipital arterial pulse, a 1 1/2 inch 25G needle was placed just medial to the occipital arterial pulse, after a negative aspiration, a total of 1.5 ml of Bupivicaine .25% + depomedrol was injected. Ms. Carranza tolerated the procedure well. There was no heme, paresthesias, or CSF encountered at anypoint during the injection. The needle was removed, and hemostasis was obtained. The procedure was then repeated on the left. The patient was then discharged home in good condition. No apparent complications. Ms. Carranza seemed to have some relief from this procedure. Upon testing pinprick sensation Ms. Carranza had decreased sensation in the area of the Occipital Nerves. Assessment and Plan: ~ Repeat occipital nerve block prn ~ Followup with prn Meron Jerry MD Fellow, Pain Medicine Pager [phone] Trigger Point Injections Date of Service: 11/29/2012 Patient: Katheryn Carranza 1960 52 y.o. female Provider: MERON JERRY MD Ms. Carranza is complaining of pain in bilateral trapezius and splenius capitus. Physical Examination: Filed Vitals: 11/29/12 1356 BP: 148/90 Pulse: 84 NAD, appropriate. Upon palpation of the bilateral trapezius and splenius capitus, there is a reproduction of the patient's pain. Procedure Ms. Carranza was interviewed and examined. The risks and benefits were explained including but not limited to bleeding, infection, worsening of the pain, damage to the area being injected, weakness, allergic reaction to medications, vascular injection, and nerve damage. All questions were answered. Informed consent was signed and time out was performed. The area of the trigger point was identified and the skin prepped with chlorhexidine [...] in motor or sensory exam. Medication used: 17.5 ml of bupivacaine 0.25% and 30 mg of depomedrol (40mg/ml) Trigger points injected: 6 Trigger point(s) location(s): Bilateral trapezius and splenius capitus Assessment and Plan: ~ Repeat prn Meron Jerry MD Fellow, Pain Medicine Pager [phone] documented in this encounter Plan of Treatment Upcoming Encounters Date Type Department Care Team (Late st Contact Info) Description 03/07/2024 10:00 AM EDT Appointment XRay at [address] [place] [address] Tien Zurita MD [facility] [place] [address] 03/07/2024 10:40 AM EDT Office Visit Neurosurgery at [facility] [place] [phone] Angel Hankins PA [facility] [place] [address] Scheduled Orders Name Type Priority Associated Diagnoses Orde r Schedule NERVE BLOCK - OCCIPITAL Neurology Routine Myofascial pain Ordered: 11/29/2012 TRIGGER POINT INJECTION - 3 OR 4 MUSCLES Neurology Routine Myofascial pain Ordered: 11/29/2012 documented as of this encounter Visit Diagnoses Diagnosis Myofascial pain- Primary Mylagia and myositis, unspecified documented in this encounter Administered Medications Inactive Administered Medications - up to 3 most recent administrations Medication Order MAR Action Action Date Dose Rate Site BUpivacaine (PF) (MARCAINE) 0.25 % (2.5 mg/mL) injection 25 mg 25 mg, Intramuscular, ONCE, 1 dose, On Tue11/29/12 at 1445, Routine Given 11/29/2012 2:58 PM EDT 25 mg methylPREDNISolone acetate (depo-MEDROL) injection 40 mg 40 mg, Intramuscular, ONCE, 1 dose, On Tue11/29/12 at 1445, Routine Given 11/29/2012 2:58 PM EDT 40 mg documented in this encounter
--- OUTSIDE RECORDS SUMMARY | 2024-02-12 18:10 | XMS_ITS | Encounter Summary ---
Author Organization [facility] Address [facility] [place] [address] Care Team Providers Care Epic Ambulatory Analyst Name Role Phone Unavailable Primary Care Provider Unavailabl e Encounter Details Date Type Department Care Team (Latest Contact Info) Description 12/09/2011 1:08 PM EDT - 12/09/2011 10:02 PM EDT Hospital Encounter [place] [phone] Pauly Sommers MD [facility] [place] [address] Discharge Disposition: Home Social History Tobacco Use [...] Tuesday 8 am to 5 pm Call [phone] On weekends or after hours: Call [phone] and ask the postage machine operator to page the Plastic Surgeon middle school professional. Prescription Line: Tuesday through Tuesday 8 am to 4 pm Call [phone] Narcotic renewals will not be honored after [...] charted. MD aware. Will call report to ELECTRICAL CAD TECHNICIAN for pt transfer. Will continue to monitor. [...] ml 1% lidocaine+ 1 ml epinephrine injection senior living 1:1000 added to 1000 IV NACL per order the total amt used of anesthetic infiltrate solution was 1000 ml. documented in this encounter Miscellaneous Notes * Miscellaneous - Provider, Scanning - 12/12/2011 11:49 AM EDT * Miscellaneous - Provider, Scanning - 12/12/2011 11:48 AM EDT * Op Note - Pauly Sommers MD - 12/09/2011 7:07 PM EDT [facility] Operative Note Patient Name: Valeria March : [id number] MR#: [id number] Case Date: 12/09/2011 Surgeon: Surgeon(s) and Role: [...] informed consent was obtained, she was [facility] Operating Room where she was placed supine [...] Operative Note Patient Name: Valeria March : [id number] MR#: [id number] Case Date: 12/09/2011 Surgeon: Surgeon(s) and Role: [...] 10:00 AM EDT Appointment XRay at [address] [place] [phone] Tien Zurita MD [facility] [place] [address] 03/07/2024 10:40 AM EDT Office Visit Neurosurgery at [facility] [place] [phone] Angel Hankins PA [facility] [place] [address] documented as of this encounter Procedures Procedure [...] 7:10 PM EDT) Surgical Pathology Report ? [facility] ? Provider: ?? PAULY SOMMERS ?Pt. Name: ?? VALERIA MARCH ? Acc #: ?[id number] ?Pt. ? Col Date: ?? 12/09/2011 ?/Sex: [...] ? ---Clinical Information--- ? Specimen Submitted: ? [facility] ? Provider: ?? PAULY SOMMERS ?Pt. Name: ?? VALERIA MARCH ? Acc #: ?[id number] ?Pt. ? Col Date: ?? 12/09/2011 ?/Sex: ?1960,(51 years),Female ? Rec Date: ?? 12/09/2011 ?LOC: ?SDP ? SURGICAL PATHOLOGY ? A - Right breast tissue ? B - Left breast tissue ? Clinical History/Diagnosis : ? Breast hypertrophy CERNER MILLENNIUM 12/09/2011 7:10 PM EDT Pauly Sommers MD PATHOLOGY/CYTOLOGY O LISA Performing Organization Address [facility] de Phone Number PERCY MALLORYIUM * Specimen to Pathology (surgical or derm) (12/09/2011 6:10 PM EDT) AP Specimen 12/09/2011 6:10 PM EDT 12/09/2011 6:10 PM EDT Narrative PERCY MILLENNIUM - 12/09/2011 6:10 PM EDT Specimen requisition ordered. ??Separate Pathology report to follow Pauly Sommers MD PATHOLOGY/CYTOLOGY O LISA Performing Organization Address [facility] de Phone Number PERCY MALLORYIUM * Specimen to Pathology (surgical or derm) (12/09/2011 6:10 PM EDT) AP Specimen 12/09/2011 6:10 PM EDT 12/09/2011 6:10 PM EDT Narrative PERCY MILLENNIUM - 12/09/2011 6:10 PM EDT Specimen requisition ordered. ??Separate Pathology report to follow Pauly Sommers MD PATHOLOGY/CYTOLOGY O LISA Performing Organization Address [facility] de Phone Number PERCY ESPANA [...] Other 12/09/2011 3:50 PM EDT 2 g fentaNYL 50mcg/mL injection 25-50 mcg, Intravenous, EVERY [...] Given 12/09/2011 7:36 PM EDT 0.4 mg OXYcodone-acetaminophen (PERCOCET) 5-325 mg per tablet 1-2 [...] Provider: Al Quezada RN)2049 (Given - Provider: Yue Shell RN) HYDROmorphone (DILAUDID) injection 0.2-0.4 mg [...] Al Quezada RN)1935 (Given - Provider: Al Quezada, OLIVIA)1957 (Given - Provider: Al Quezada RN)2002 (Given - Provider: Al Quezada RN) lidocaine (PF) (XYLOCAINE) 10 mg/mL (1 %) injection (CANCELED) ONCE PRN, Starting on Teresa 12/09/11 at 1751, Until Tue12/10/11 at 0003, Intra-Operative (Intra-Procedure), Routine 1750 (Given - Provid er: Pauly Sommers MD [...]
--- OUTSIDE RECORDS SUMMARY | 2024-02-12 18:10 | XMS_ITS | Encounter Summary ---
[place] [address] Care Team Providers Care Capacity Analyst Name Role Phone Unavailable Primary Care Provider Unavailabl e Encounter Details Date Type Department Care Team (Late st Contact Info) Description 09/16/2014 Telephone [place] [address] Asha Weiner LPN Social History Tobacco Use [...] Telephone Encounter - Asha Weiner LPN - 09/16/2014 12:06 PM EDT Pain Management Center Post-Procedure Phone Note Patient: Katheryn Carranza [id number] Post-procedure phone call from patient to report her response to the cervical medial branch block procedure performed on 09/11/14 in the Pain Management Center by Rita Garcia MD. This is patient's : first medial branch block Patient reports that after the procedure she experienced: _x_ Patient reported post-block numeric pain scale: 3 /10 (average pain since procedure) _x_ Post-procedure pain has been reduced by 40%. (> 80% Medicare/MVP/Medicaid) _x_ If relief > 80% with ability to perform painful maneuvers; sched 2nd MBB: no _x_ Pain relief: minimal If pain is reduced, it lasted: Yes 4 hours or greater Based on the information provided above and after discussion with the patient, the following actions will be taken: _x_ Patient does not meet criteria for radiofrequency and will follow-up with Dr. Garcia , to discuss other options for treatment of their pain. Patient on anticoagulant medication: No Patient has pacemaker/defibrillator: No Patient has the appropriate phone number and understands that she may contact the Pain Management Center at any time with questions or concerns. Asha Weiner LPN documented in this encounter Plan of Treatment Upcoming Encounters Date Type Department Care Team (Late st Contact Info) Description 03/07/2024 10:00 AM EDT Appointment XRay at [address] [place] [address] Tien Zurita MD [facility] [place] [address] 03/07/2024 10:40 AM EDT Office Visit Neurosurgery at [facility] [place] [address] Angel Hankins PA [facility] [address] documented as of this encounter Visit Diagnoses Not on filedocumented in this encounter
--- OUTSIDE RECORDS SUMMARY | 2024-02-12 18:10 | XMS_ITS | Encounter Summary ---
Author Organization [facility] [place] [address] Care Team Providers Care Military Pay Technician Name Role Phone Unavailable Primary Care Provider Unavailabl e Reason for Visit * Reason Comments Advice Only pictures for bbr Encounter Details Date Type Department Care Team (Late st Contact Info) Description 09/07/2011 4:30 PM EDT Follow-[place] [phone] Pauly Melo MD [facility] [place] [address] Macromastia (Primary Dx); Breast hypertrophy Discharge Disposition: Home Social History Tobacco Use [...] - Inhaled Oxygen Concentration - - Weight 85.6 kg (188 lb 12.8 oz) 09/07/2011 4:56 PM EDT Height 165.1 cm (5' 5) 09/07/2011 4:56 PM EDT Body Mass Index 31.42 09/07/2011 4:56 PM EDT documented in this encounter Progress Notes * Pauly Melo MD - 09/07/2011 4:45 PM EDT PLASTIC SURGERY OFFICE NOTE Pauly Melo MD PCP: SAILAJA FITZGERALD APRN CANDY DIPPER: As above Reason for office visit: Symptomatic macromastia CC: I was asked by Sailaja Fitzgerald [facility] to re-evaluate Ms. Carranza, a 50 year-old woman, for symptomatic macromastia. She has been previously seen by Dr. Adler and myself but was a smoker at the initial visit. She has since quit smoking. At her second visit, breast reduction was again recommended.Further pictures are now requested by her insurance company. She has previously completed the breast specific symptom questionnaire and reports that all or most of the time she has the following physical or psychosocial symptoms. Physical Symptoms: X Upper back X Painful bra strap grooves X Breast pain X Neck pain X Rashes under her breasts X Shoulder pain X Arm pain Psychosocial Symptoms: X ( difficulty findings clothes to fit X difficulty with participation in sports feeling unattractive and a source of unwanted attention She reports other symptoms but they are less frequent. Ms. Carranza has tried the following conservative measures, for at least 6 months, to help alleviate her symptoms: X Physical therapy X Weight loss X Custom bras X NSAID's X Chiropractice treatment X Narcotic pain meds Other ALLERGIES: Allergies no known allergies MEDICATIONS: Current outpatient prescriptions ordered prior to encounter Medication Sig Dispense Refill ??? escitalopram (LEXAPRO) 20 mg tablet Take 20 mg by mouth daily. ??? ibuprofen (ADVIL;MOTRIN) 800 mg tablet Take 800 mg by mouth 3 times daily as needed. (She was cautioned to avoid taking aspirin or NSAIDs for at least two weeks prior to surgery if possible to lessen the risk of bleeding. If an analgesic were required, Tylenol would be the drug of choice.) Past Medical History: comorbidities per [place] comorbidity index: Hypertension: NO Heart attack NO Heart failure: NO Peripheral Vascular Disease NO CVA/TIA NO Serious heart problem NO Mitral Valve prolapse NO Angina NO Asthma NO COPD, emphysema, chronic bronchitis NO Hepatitis NO Cirrhosis or serious liver damage NO Stomach or peptic ulcer NO RA NO Lupus NO Polymyalgia rheumatica NO Diabetes NO Kidney disease NO Leukemia/polycythemia veria NO Lymphoma NO Cancer NO Admission for mental health NO Alzheimer's/dementia NO AIDS NO HIV NO Currently NO The SF-8 was completed in 2006 with results: Physical function 40.1 Role physical 46.9 Bodily pain 31,5 General health 46.4 Vitality 45.2 Social functioning 49.5 Role emotional 52.4 Mental health 41.5 PHYSICAL COMPONENT SUMMARY 41.0 MENTAL COMPONENT SUMMARY 47.0 Breast Cancer Risk history: Mammogram within the last year N Previous Breast biopsies N Age at first menses 15 Age at first childbirth 25 Number of mother/sister(s)/daughter(s) with breast cancer none Future breast feeding: no plans Given within the last 6 months N Breast fed with in the last 6 months or currently breast feeding N Social History: Alcohol use: 0 drinks in a typical week Smoking status within last month: quit smoking 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 Carranza appears to be in good health. Her emotional outlook ispositive and she asked appropriate questions throughout the visit. Musculoskeletal: Her back is straight without evidence of kyphosis. BREAST MEASUREMENTS RIGHT LEFT Ptosis 3 3 SN-N (cm) 37 36.5 IMF-N (cm) 21 21 NAC elevat (cm) 12 12 NAC (cm) 6 6 Masses - - Shoulder grooves - - Rash - - Axillary rolls - - Surgical Scars - - Breast Vol (estimate in cc) 2500 2500 Resection (estimate in gms) 1100 1100 ASSESSMENT: Symptomatic bilateral breast hypertrophy. PLAN: Bilateral breast reduction is indicated for relief of her breast-related symptoms. She was providedwith an ASPS brochure and informed consent on breast reduction. The procedure of breast reduction was discussed in detail and it was emphasized that I cannot guarantee a specific requested size. We reviewed the surgical risks, alternate skin incisions and pedicle versus free nipple graft techniques. We also discussed the option of volume reduction by liposuction alone, which does not alter the nipple-areolar complex position. We reviewed the timing of surgery relative to weight fluctuations Marilia've advised that surgery is best done at a realistic mcfp stable weight. We talked about the ou tpatient nature of the surgery, drains, postoperative recovery, and time required off work. We talked about the impact of this surgery on decreasing breast cancer risk. She has been referred to [email or web address] and provided with my e-mail address. We specifically discussed the following risks: Liposuction: minimal risks but swelling for several months is to be expected. Disadvantage is that not as much lifting is achieved. We talked about the sometimes need to increase the length of the inframammary fold incision and do a direct excision of tissue if we cannot meet our planned volume of resection. Surgical Risks which are greater with open reduction: bleeding with risk of hematoma (<5%); numbness, which may be temporary or permanent; scarring, including abnormal scarring; infection (5-10%);fat necrosis resulting in a breast mass and possible need for revision. I stressed the likelihood of minor problems with delayed wound healing (~30%) and the rare complication of nipple areolar necrosis. She is also aware that there may be some residual pain after the surgery and that there may possibly be some asymmetry. Vertical or Lollipop Incision: Less scarring on breast, but slightly greater risk for delayed healing and desire for scar revision. (She was informed that her insurer might not cover secondary revisions for scarring or asymmetry.) Barker or Vista Pattern Incision: More scarring on breast, but lower risk for scar revision. (She was informed that her insurer might not cover secondary revisions for scarring or asymmetry.) Pedicle Technique: volume of reduction may be limited by need to provide an adequate blood supply to the nipple. There is a very small risk of nipple loss. Most women (~60%) will be able to breast-feed. Free Nipple Graft: The grafts will initially have no sensation and once fully healed may not respond to temperature and touch as they do now. She has also a been informed that they may not look entirely normal and may have patchy hypopigmentation. She will not be able to breast feed with this technique. After fully discussing the options, she has opted to pursue a: Bilateral Breast Reduction Vertical Pedicle X Bilateral Breast Reduction Barker Pedicle Bilateral Breast Reduction Barker FNG She would like to proceed with surgery and I will inform Sailaja HODGES of this plan. documented in this encounter Miscellaneous Notes * Miscellaneous - Wei, Retail Service Lead Merchandiser - 09/20/2011 12:02 PM EDT documented in this encounter Plan of Treatment Upcoming Encounters Date Type Department Care Team (Late st Contact Info) Description 03/07/2024 10:00 AM EDT Appointment XRay at [address] [place] [address] Tien Zurita MD [facility] [place] [address] 03/07/2024 10:40 AM EDT Office Visit Neurosurgery at [facility] [place] [address] Angel Hankins PA [facility] [place] [address] documented as of this encounter Visit Diagnoses Diagnosis Macromastia- Primary Hypertrophy of breast Breast hypertrophy Hypertrophy of breast documented in this encounter
--- OUTSIDE RECORDS SUMMARY | 2024-02-12 18:10 | XMS_ITS | Encounter Summary ---
Author Organization [facility] [place] [address] Care Team Providers Care Senior Supply Chain Analyst Name Role Phone Unavailable Primary Care Provider Unavailabl e Reason for Visit * Reason Comments Neck Pain Encounter Details Date Type Department Care Team (Latest Contact Info) Description 09/11/2014 10:40 AM EDT Procedure [place] [address] Rita Garcia MD [address] [place] [address] Rita Garcia MD [facility] [place] [address] Cervical spondylosis without myelopathy Discharge Disposition: Home [...] Sign Reading Time Taken Comments Blood Pressure 119/79 09/11/2014 11:20 AM EDT Pulse 76 09/11/2014 11:20 AM EDT Temperature - - Respiratory Rate 16 09/11/2014 11:20 AM EDT Oxygen Saturation 98% 09/11/2014 11:20 AM EDT Inhaled Oxygen Concentration - - Weight 81.2 kg (179 lb) 09/11/2014 10:59 AM EDT Height 165.1 cm (5' 5) 09/11/2014 10:59 AM EDT Body Mass Index 29.79 09/11/2014 10:59 AM EDT documented in this encounter Patient Instructions * Patient Instructions* Vicenta Alonzo, ARLETTE - 09/11/2014 11:16 AM EDT Pain Management Center Discharge Instructions: You were seen by Dr. Rita Garcia MD who performed Left cervical medial branch block. It is normal that the injection site will be sore for up to 48 hours. You may also experience mild stiffness in the joint near the injection site. [x] You may resume your normal activities: [...] your procedure. You received the following medications: Lidocaine, Omnipaque (contrast dye) and Bupivacaine. During regular business hours, please phone the [...] Post -Procedure Pain Log Patient: Katheryn Carranza [id number] It is important for you to keep track of your pain after your procedure that took place 09/11/2014. This information will help your Provider to determine how to help reduce your pain. Today you had a procedure for pain in your Neck. Your pain level before the procedure in this area was 5/10. Your pain level immediately after your procedure was 3 /10. Time Pain Score Comments 1 hour 2 hours 3 hours 4 hours Please call the nurse in the Pain Management Center a day or two after your procedure and report the information above. She will assess your response to the procedure, and will recommend appropriate follow-up. documented in this encounter Progress Notes * Sarah Morales RN - 09/11/2014 11:00 AM EDT Pre-Procedure Screening Questions: 1. Status: No 2. Patient states they have a port cdl a driver to transport after procedure? Yes 3. Patient taking antibiotics at present? No 4. NPO per Pain Management Center protocol? No 5. Patient diabetic: No 6. Patient routinely taking anticoagulants ? No Anticoagulant: Date Stopped: Current INR: Patient Vital Signs documented in Doc Flowsheets associated with this encounter. Patient Discharge Instructions were reviewed with patient and copy provided to patient. documented in this encounter Procedure Notes * Rita Garcia MD - 09/11/2014 11:11 AM EDTAssociated Order(s): NERVE BLOCK - CERVICAL/THORACIC Procedure(s): NERVE BLOCK - CERVICAL/THORACIC Pre-Procedure Diagnose(s): Cervical spondylosis without myelopathy Diagnostic Cervical Medial Branch Nerve Blocks left C2-3, C3-4 Chief Complaint: neck pain and headache. Diagnosis: 1. Cervical spondylosis without myelopathy Preoperative Note History and Exam Patient demonstrates today moderate to severe non- radicular back pain without neurologic deficit aggravated by hyperextension yes Neck pain greater than arm pain yes Patient today has tenderness over the suspected joint(s) yes History of post-traumatic injury no Pre-testing pain score: 5/10 Katheryn Carranza has been referred to the Pain Management Center for Diagnostic Cervical Medial Branch Nerve Blocks left C-2, C-3 and C-4. (Facet joint levels C2-3, C3-4 ) Ms. Carranza was interviewed and the medical record reviewed. There were no medical, pharmacologic, radiographic or other structural contraindications to attempting fluoroscopically guided injection. Risks and expected side effects as well as potential benefit of the procedure were reviewed with Ms. Carranza, and her voiced concerns were addressed. The printed consent form was signed and witnessed. (The procedure, risks, and benefits of Cervical Medial Branch Nerve Blocks were reviewed with the patient, including but not limited to: nerve injury, allergic reaction, infection, transient numbness from spread of local anesthesia to nerve roots. The patient appeared to understand, questions were answered and the patient agreed to proceed.) Standard time-out procedure was performed. Katheryn Carranza was greeted by the nurse who verified patients name and . Patient was then taken to the fluoroscopy suite. TECHNIQUE: After informed written consent was obtained, the patient was placed in the prone position. The cervical spine was prepped with chloraprep and draped. Sterile technique was used, vital signs were monitored, time out was done and the left side was marked.. Cap, glove, mask were worn. The skin and subcutaneous structure were anesthetized with lidocaine 1% , to a total volume of 3 ml at each level. Medial Branch Nerves left C-2, C-3 and C-4. In the AP view 22-gauge spinal needles were advanced tothe junction of the waste of the articular pillars of C- 2, C-3 and C-4. Under lateral view needle position was optimized to the centroid of the articular pillar. Contralateral oblique was obtained (foraminal view) and the needles were outside of the neural foramen. Under lateral view, Omnipaque 240 was injected while visualized with digital subtraction. There wasno evidence of intravascular uptake, and there was dye flow across the articular pillar. BUPIVICAINE 0.5% 0.5 ml was administered at each level after negative aspiration. Outcome: The patient tolerated the procedure well and had stable vital signs. The patient noted after getting up after the procedure that their pain was at a 3 out of 10 level. Preprocedure pain level was a 5 out of 10. Follow up plans and appointments were discussed with Katheryn Carranza. Ms. Carranza was instructed to keep careful note of how the usual pain was modified by these injections. Specifically, she was askedto keep a pain diary for the next 24 hours using a numeric pain scale of 0-10 and report these results at the follow- up visit. The patient was observed in the pain clinic and then discharged after having met discharge criteria to the care of a port cdl a driver. The patient received written instructions as documented in nursing records. Based on the medial branches blocked today, if they patient has adequate relief and we are able to proceed to radiofrequency ablation, the treatment should result in the denervation of the left C2-3,C3-4. We would expect to denervate a total of 2 facets during the radiofrequency ablation. COMMENTS: If criteria met, Ms. Carranza will proceed to Cervical medial branch blocks with lidocaine. The patient will otherwise follow-up with Dr. Garcia CC: SANTI FITZGERALD, JACKIE @[email or web address]@ documented in this encounter Plan of Treatment Upcoming Encounters Date Type Department Care Team (Late st Contact Info) Description 03/07/2024 10:00 AM EDT Appointment XRay at [address] [place] [address] Tien Zurita MD [facility] [place] [address] 03/07/2024 10:40 AM EDT Office [place] [address] Angel Hankins PA [facility] [place] [address] documented as of this encounter Procedures Procedure Name Priority Date/Time Associated Diagnosis Comments FILM LIBRARY STORAGE ONLY PAIN CLINIC C ARM Routine 09/11/2014 5:15 PM EDT NERVE BLOCK - CERVICAL/THORACIC Routine 09/11/2014 11:33 AM EDT Cervical spondylosis without myelopathy documented in this encounter Results * Film Library-storage only pain clinic C-arm (09/11/2014 5:15 PM EDT) Anatomical Region Laterality Modality Other 09/11/2014 5:15 PM EDT Narrative 09/11/2014 5:16 PM EDT This is a Non-reportable exam Procedure Note CECILIA, UNSIGNED REPORT - 09/11/2014 This is a Non-reportable exam Rita Garcia MD [facility] FILM LIBRARY ORD ERABLES * NERVE BLOCK - CERVICAL/THORACIC (09/11/2014 11:33 AM EDT) Narrative Rita Garcia MD - 09/11/2014 11:33 AM EDT Rita Garcia MD ? 09/11/2014 11:33 AM Diagnostic Cervical Medial Branch Nerve Blocks left ??C2-3, C3-4 Chief Complaint: neck pain and headache. Diagnosis: 1. Cervical spondylosis without myelopathy ?? Preoperative Note History and Exam Patient demonstrates today moderate to severe non- radicular back pain without neurologic deficit aggravated by hyperextension ??yes Neck pain greater than arm pain ? yes Patient today has tenderness over the suspected joint(s) ??yes History of post-traumatic injury ? no Pre-testing pain score: ? 10/13 Katheryn Carranza has been referred to the [facility] for Diagnostic Cervical Medial Branch Nerve Blocks ?? left C-2, C-3 and C-4. (Facet joint levels ??C2-3, C3-4 ) Ms. Carranza was interviewed and the medical record reviewed. ?? There were no medical, pharmacologic, radiographic or other structural contraindications to attempting fluoroscopically guided injection. ??Risks and expected side effects as well as potential benefit of the procedure were reviewed with Ms. Carranza, and her voiced concerns were addressed. ??The printed consent form was signed and witnessed. (The procedure, risks, and benefits of Cervical Medial Branch Nerve Blocks were reviewed with the patient, including but not limited to: nerve injury, allergic reaction, infection, transient numbness from spread of local anesthesia to nerve roots. ??The patient appeared to understand, questions were answered and the patient agreed to proceed.) Standard time-out procedure was performed. Katheryn Carranza was greeted by the nurse who verified patients name and . ??Patient was then taken to the fluoroscopy suite. TECHNIQUE: After informed written consent was obtained, the patient was placed in the prone position. ??The cervical spine was prepped with chloraprep and draped. ??Sterile technique was used, vital signs were monitored, time out was done and the ??left ??side was marked.. Cap, glove, mask were worn. ??The skin and subcutaneous structure were anesthetized with lidocaine 1% , to a total volume of 3 ml at each level. ?? Medial Branch Nerves ??left C-2, C-3 and C-4. In the AP view 22-gauge spinal needles were advanced to the junction of the waste of the articular pillars of ??C-2, C-3 and C-4. Under lateral view needle position was optimized to the centroid of the articular pillar. Contralateral oblique was obtained (foraminal view) and the needles were outside of the neural foramen. Under lateral view, Omnipaque 240 was injected while visualized with digital subtraction. There was no evidence of intravascular uptake, and there was dye flow across the articular pillar. ? BUPIVICAINE 0.5% ??0.5 ml was administered at each level after negative aspiration. ? Outcome: The patient tolerated the procedure well and had stable vital signs. The patient noted after getting up after the procedure that their pain was at a ??3 out of 10 level. ?? Preprocedure pain level was a ??5 out of 10. ?? Follow up plans and appointments were discussed with Katheryn Carranza. Ms. Carranza was instructed to keep careful note of how the usual pain was modified by these injections. ??Specifically, she was asked to keep a pain diary for the next 24 hours using a numeric pain scale of 0-10 and report these results at the follow-up visit. ??The patient was observed in the pain clinic and then discharged after having met discharge criteria ??to the care of a port cdl a driver. ??The patient received written instructions as documented in nursing records. ?? Based on the medial branches blocked today, if they patient has adequate relief and we are able to proceed to radiofrequency ablation, the treatment should result in the denervation of the left C2-3, C3-4. We would expect to denervate a total of 2 facets during the radiofrequency ablation. COMMENTS: ?? If criteria met, ??Ms. Carranza will proceed to Cervical medial branch blocks with ?? lidocaine. The patient will ??otherwise follow-up with Dr. Garcia CC: SANTI FITZGERALD, JACKIE @[email or web address]@ Rita Garcia MD PROCEDURE/MINOR SURG ICAL ORDERABLES documented in this encounter Visit Diagnoses Diagnosis Cervical spondylosis without myelopathy documented in this encounter Administered Medications Inactive Administered Medications - up to 3 most recent administrations Medication Order MAR Action Action Date Dose Rate Site BUpivacaine (PF) (MARCAINE) 0.5 % (5 mg/mL) injection 50 mg 50 mg (10 mL), Subcutaneous, ONCE, 1 dose, On Tue09/11/14 at 1130, Wasted 20 ml, Routine Given 09/11/2014 11:30 AM EDT 50 mg iohexol (OMNIPAQUE) 240 mg/mL solution 0.75 mL 0.75 mL, Epidural, ONCE, 1 dose, On Tue09/11/14 at 1130, 49.25 mL wasted, Routine Given 09/11/2014 11:30 AM EDT 0.75 mLs lidocaine (PF) (XYLOCAINE) 20 mg/mL (2 %) injection 50 mg 50 mg, Subcutaneous, ONCE, 1 dose, On Tue09/11/14 at 1130, Wasted 2.5 mL, Routine Given 09/11/2014 11:30 AM EDT 50 mg documented in this encounter
--- OUTSIDE RECORDS SUMMARY | 2024-02-12 18:10 | XMS_ITS | Encounter Summary ---
Author Organization [facility] Address [facility] [place] [address] Care Team Providers Care Belly Dancer Name Role Phone Unavailable Primary Care Provider Unavailabl e Encounter Details Date Type Department Care Team (Latest Contact Info) Description 07/17/2014 8:04 AM EST - 07/17/2014 11:59 PM [facility] [place] [address] Rita Garcia MD [facility] [place] [address] Cervical spondylosis without myelopathy Discharge Disposition: Home [...] HFA Aerosol Inhaler .COMPLEX 11/20/2013 amitriptyline (ELAVIL) 10 mg Tablet Take 10 mg by mouth nightly. 02/24/2015 celecoxib (CELEBREX) 200 mg Capsule Take 200 mg by mouth daily. 02/24/2015 metaxalone (SKELAXIN) 800 mg tablet Take 800 mg by mouth 3 times daily. 02/24/2015 cyclobenzaprine (FLEXERIL) 10 mg tablet Take 10 [...] Take 3 mg by mouth nightly. 09/10/2014 documented as of this encounter Progress Notes * Calista Gruber, RN - 07/15/2014 12:45 PM EST VIR MRI PRE-SEDATION ASSESSMENT NOTE NAME: Katheryn Carranza AGE: 53 y.o. : 1960 Female [phone] (home) No relevant phone numbers on file. 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 Allergenic Extracts Pollen ??? Zoloft [Sertraline] Nausea And Vomiting Date/Time of call: July 15, 2014/12:45 PM/ PREVIOUS MRI SCAN? yes HEIGHT: 65 WEIGHT:172# SCHEDULED SCAN: MRI C Spinewo SUBJECTIVE:I am claustrophobic ASSESSMENT:Patient candidate for po sedation PLAN:Ativan 1-2 mg per protocol PRIOR SCAN DATE/S SEDATION TYPE SUCCESSFUL 09/29/12 MRI lumbar spine Ativan 1mg po x1 yes 07/17/14 MRI C Spinewo Ativan 1mg po x1 yes PT WILL ARRIVE 1 HR. BEFORE SCHEDULED SCAN AND HAVE A CONCRETING SUPERVISOR AVAILABLE. PT STATED TO PIGMENT WEIGHER THAT THE SEDATION WAS EFFECTIVE FOR SCAN: Y N COMMENTS: This patient has been informed that they require a dedicated truck driver to drive them home after this procedure. In the absence of a dedicated truck driver, IR will not be able to perform this procedure and will need to reschedule. Pt verbalized understanding of these instructions during the pre-procedure education via phone. documented in this encounter Plan of Treatment Upcoming Encounters Date Type Department Care Team (Late st Contact Info) Description 03/07/2024 10:00 AM EDT Appointment XRay at [address] [place] [address] Tien Zurita MD [facility] [place] [address] 03/07/2024 10:40 AM EDT Office Visit Neurosurgery at [facility] [address] Angel Hankins PA [facility] [place] [address] documented as of this encounter Procedures Procedure Name Priority Date/Time Associated Diagnosis Comments MRI CERVICAL SPINE WO CONTRAST Routine 07/17/2014 9:32 AM EST Cervical spondylosis without myelopathy documented in [...] Narrative 07/17/2014 11:40 AM EST EXAMINATION: MR Cspine WO Eddie CLINICAL HISTORY: neck pain cervical [...] Date Dose Rate Site LORazepam (ATIVAN) tablet 1 mg 1 mg, Oral, EVERY 30 MIN PRN, 2 doses, Starting on Tue07/17/14 at 0735, Until Tue07/17/14 at 2359, Anxiety, Angio/IR (Day of Procedure), Routine Given 07/17/2014 8:10 AM EST 1 mg documented in this encounter
--- OUTSIDE RECORDS SUMMARY | 2024-02-12 18:10 | XMS_ITS | Encounter Summary ---
[place] [address] Care Team Providers Care Press Operator Helper Name Role Phone Unavailable Primary Care Provider Unavailabl e Encounter Details Date Type Department Care Team (Latest Contact Info) Description 08/13/2013 1:56 PM EDT - 08/13/2013 11:59 PM EDT Hospital [place] [id number] CLINIC, Sailaja Rush MD [address] [place], [place] [id number] Discharge Disposition: Home Social History Tobacco Use [...] tablet Take 50 mg by mouth daily. meloxicam (MOBIC) 7.5 mg tablet Take 7.5-15 mg by mouth as needed. 07/09/2014 OXYcodone-acetaminophen (PERCOCET) 5-325 mg per tablet Take 1-2 tablets by mouth every 6 hours as needed for Pain. 30 tablet 0 11/09/2012 07/09/2014 lidocaine (LIDODERM) 5 %(700 mg/patch) Place 1 patch onto the skin every 12 hours. 10 patch 1 09/27/2012 07/09/2014 metaxalone (SKELAXIN) 800 mg tablet Take 800 [...] needed. 07/09/2014 documented as of this encounter Plan of Treatment Upcoming Encounters Date Type Department Care Team (Late st Contact Info) Description 03/07/2024 10:00 AM EDT Appointment XRay at [address] [place] [phone] Tien Zurita MD [facility] [place] [address] 03/07/2024 10:40 AM EDT Office Visit Neurosurgery at [facility] [place] [phone] Angel Hankins PA [facility] [place] [address] documented as of this encounter Procedures Procedure Name Priority Date/Time Associated Diagnosis Comments MAMMO SCREENING CAD BILATERAL Routine 08/13/2013 2:25 PM EDT documented in this encounter Results * Mammo digital bilateral Screening with CAD (08/13/2013 2:25 PM EDT) Anatomical Region Laterality Modality Breast Bilateral Mammography 08/13/2013 2:25 PM EDT Narrative 08/14/2013 11:50 AM EDT Reason for Exam: Screening Technique: Craniocaudal (CC) and Medio-lateral Oblique (MLO) views of both breasts obtained with direct digital capture. The exam was evaluated by CAD version 8.3.17. Findings: This is a negative mammogram (ACR Category 1). There is a stable fibroglandular pattern without significant change from prior studies. There is no mammographic evidence of cancer. The breasts are of scattered density. There are bilateral post-surgical changes CONCLUSION: This is a NEGATIVE mammogram (ACR Category 1). Routine screening mammography is recommended with the frequency dependent upon the patients age and breast cancer risk factors. A letter has been sent to this patient by the breast imaging center. Procedure Note Arlyn Reed MD - 08/14/2013 Reason for Exam: Screening Technique: Craniocaudal (CC) and Medio-lateral Oblique (MLO) views of both breasts obtained with direct digital capture. The exam was evaluated by CAD version 8.3.17. Findings: This is a negative mammogram (ACR Category 1). There is a stablefibroglandular pattern without significant change from prior studies. There is no mammographic evidence of cancer. The breasts are of scattered density. There are bilateral post-surgical changes CONCLUSION: This is a NEGATIVE mammogram (ACR Category 1). Routine screening mammography is recommended with the frequency dependentupon the patients age and breast cancer risk factors. A letter has been sent to this patient by the breast imaging center. Sailaja Ross APRN IMG MAMMO ORDERABLES documented in this encounter Visit Diagnoses Not on filedocumented in this encounter
--- OUTSIDE RECORDS SUMMARY | 2024-02-12 18:10 | XMS_ITS | Encounter Summary ---
[place] [address] Care Team Providers Care Loom Fixer Name Role Phone Unavailable Primary Care Provider Unavailabl e Reason for Referral * Consultation (Routine) - Closed Specialty Diagnoses / Procedures Referred By Contac t Referred To Contact Pain Management Diagnoses Neck pain on left side Roxie Mcgraw APRN [facility] [place] [address] [facility] [address] [place] [phone] Referral ID Status Reason Start Date Expiration Date V isits Requested Visits Authorized [id number] Closed Consult Only 07/04/2012 12/31/2012 1 1 * Physical Therapy (Routine) - Closed Specialty Diagnoses / Procedures Referred By Contac t Referred To Contact Physical Therapy Diagnoses Neck pain on left side Roxie Mcgraw APRN [facility] [place] [address] [facility] [place] [address] Referral ID Status Reason Start Date Expiration Date V isits Requested Visits Authorized [id number] Closed Evaluate and Treat 07/04/2012 12/31/2012 1 1 * Consultation (Routine) - Closed Specialty Diagnoses / Procedures Referred By Cosmo t Referred To Contact Pain Management Diagnoses Neck pain on left side Roxie Mcgraw, [facility] [address] [facility] [address] [place] [phone] Referral ID Status Reason Start Date Expiration Date V isits Requested Visits Authorized [id number] Closed Consult Only 07/04/2012 12/31/2012 1 1 Reason for Visit * Reason Comments Neck Pain With Headaches Encounter Details Date Type Department Care Team (Late st Contact Info) Description 07/04/2012 2:50 PM EST Office [place] [phone] Roxie Mcgraw, [facility] [address] Neck pain on left side (Primary Dx) Discharge Disposition: Home Social History [...] Sign Reading Time Taken Comments Blood Pressure 144/78 07/04/2012 3:01 PM EST Pulse - - Temperature - - Respiratory Rate - - Oxygen Saturation - - Inhaled Oxygen Concentration - - Weight 80.7 kg (178 lb) 07/04/2012 3:01 PM EST Height 165.1 cm (5' 5) 07/04/2012 3:01 PM EST Body Mass Index 29.62 07/04/2012 3:01 PM EST documented in this encounter Progress Notes * Roxie Mcgraw, CAMPGROUND CARETAKER - 07/04/2012 3:47 PM EST Chief complaint: Left-sided neck pain with occasional occipital headaches History of present illness: Katheryn has had neck pain since the eighth grade. She originally thought that her symptoms were because of her large breasts and as a matter of fact her mid back pain did improve after breast reduction surgery however she has continued with her left-sided neck pain since her breast reduction surgery. The pain is described as left-sided the neck radiating occasionally up in over the year with migraine headaches and a band like tension headache associated with this. There is no pain in the arms but there is tingling bilaterally in the first 3 fingers and this is a relatively new finding. She doesn't have any weakness per se but has difficulty opening jars. Nothing really makes her pain better or worse although massage lessens her symptoms. She sleeps one pill at night. She is no particular gait or balance disturbance but tells me she's always been clumsy. Exercise habits have consisted of physical therapy only. 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 Past medical history: Breast reduction surgery anxiety depression, ADHD, high blood pressure, GERD Social and family history: She is and is out of work. She is a smoker, she is not on disability but would be open to disability if she wasn't able to return back to work. She does not drink alcohol regularly. Review of Systems: Positive for headaches and urinary frequency but negative for other GI, , or constitutional symptoms. She also has bilateral knee and ankle pain. Medications and allergies were reviewed and updated. Physical Examination: This is an overweight female with a stated height of 5 feet 5 and no stated weight. She is right-hand dominant. Her left shoulder appears lower than her right and her hips and knees appear level. She is nontender to palpation the low back but does have some diffuse tenderness in the trapezius muscle in the neck area bilaterally. Cervical range of motion is mildly reduced particularly in side bending and rotation and she has a negative Spurling's maneuver. She is full shoulder range of motion. She has some mild difficulty with tandem walking secondary to balance. She can single leg balance. She has slight decrease in sensation particularly in the left forearm. She has normal strength and reflexes. There is no Yates or clonus and Babinski with downgoing toes. 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 Assessment and Plan: We discussed that long-standing neck pain is often not something that we can make go away but we might be able to alleviate her symptoms long enough for her improve her range of motion and function. I talked her about her functional mandaeism program I also spoke her about cervical medial branch block and radiofrequency and use the model to instruct her on the procedure. I did talk to her about the fact that this might help her go through the intense rehabilitation program or some basic physical therapy which would be directional preference and self-care oriented ratherthan modality based. She is also interested in visiting with pain clinic about pain medication management. I will see her after her injection and physical therapy and if she is interested in the functional mandaeism program or rehabilitation I would recommend a gap assessment at that point time. 35 minutes out of this 45 minute visit was spent in face to face discussion of present symptoms andfuture plan of care. This note was written with voice recognition software. Although I do review all notes for accuracy,there may be inadvertent errors in foster care therapist. Please contact my office at [phone] for any issues related to the text of this medical record. documented in this encounter Plan of Treatment Upcoming Encounters Date Type Department Care Team (Late st Contact Info) Description 03/07/2024 10:00 AM EDT Appointment XRay at [address] [place] [phone] Tien Zurita MD [facility] [place] [address] 03/07/2024 10:40 AM EDT Office Visit Neurosurgery at [facility] [place] [phone] Angel Hankins, JOANNA [facility] [place] [address] Scheduled Referrals Name Type Priority Associated Diagnoses Orde r Schedule Referral to Pain Clinic Outpatient Referral Routine Neck Pain On Left Side Ordered: 07/04/2012 Referral to Physical Therapy Outpatient Referral Routine Neck Pain On Left Side Ordered: 07/04/2012 Referral to Pain Clinic Outpatient Referral Routine Neck Pain On Left Side Ordered: 07/04/2012 documented as of this encounter Visit Diagnoses Diagnosis Neck pain on left side- Primary Cervicalgia documented in this encounter
--- OUTSIDE RECORDS SUMMARY | 2024-02-12 18:10 | XMS_ITS | Encounter Summary ---
Author Organization [facility] [place] [address] Care Team Providers Care Movie Shot Camera Operator Name Role Phone Unavailable Primary Care Provider Unavailabl e Encounter Details Date Type Department Care Team (Late st Contact Info) Description 07/31/2013 External Results XRay at [address] [place] [phone] Provider, Scanning Social History Tobacco Use Types Packs/Day Years [...] 10:00 AM EDT Appointment XRay at [address] [place] [phone] Tien Zurita MD [facility] [place] [address] 03/07/2024 10:40 AM EDT Office Visit Neurosurgery at [facility] [place] [phone] Angel Hankins PA [facility] [place] [address] documented as of this encounter Procedures Procedure Name Priority Date/Time Associated Diagnosis Comments MAMMOGRAM SCAN Routine 03/07/2009 documented in this encounter Results * Scan Doc: Mammogram (03/07/2009) Anatomical Region Laterality Modality Other Scanning Provider MEDIA MGR SCAN EXT O RDR/RSLT documented in this encounter Visit Diagnoses Not on filedocumented in this encounter
--- OUTSIDE RECORDS SUMMARY | 2024-02-12 18:10 | XMS_ITS | Encounter Summary ---
[place] [address] Care Team Providers Care Laborer Tan House Name Role Phone Unavailable Primary Care Provider Unavailabl e Reason for Referral * Consultation (Routine) - Closed Specialty Diagnoses / Procedures Referred By Cosmo cortez Referred To Contact Neurology Diagnoses Headache(784.0) Myofascial pain Meron Jerry MD [facility] [place] [address] [facility] [address] [place] [address] Referral ID Status Reason Start Date Expiration Date V isits Requested Visits Authorized [id number] Closed Consult, Test & Treat 11/09/2012 05/08/2013 1 1 Reason for Visit * Reason Comments Pain Management neck pain Encounter Details Date Type Department Care Team (Late st Contact Info) Description 11/09/2012 8:45 AM EDT [place] [phone] Meron Jerry MD [facility] [place] [address] Headache (Primary Dx); Myofascial pain Discharge Disposition: Home [...] Sign Reading Time Taken Comments Blood Pressure 124/88 11/09/2012 9:37 AM EDT Pulse 83 11/09/2012 9:37 AM EDT Temperature - - Respiratory Rate 20 11/09/2012 9:37 AM EDT Oxygen Saturation 96% 11/09/2012 9:37 AM EDT Inhaled Oxygen Concentration - - Weight 84.4 kg (186 lb) 11/09/2012 9:37 AM EDT Height 166.4 cm (5' 5.5) 11/09/2012 9:37 AM EDT Body Mass Index 30.48 11/09/2012 9:37 AM EDT documented in this encounter Progress Notes * Yasmani Rueda MD - 11/10/2012 8:39 AM EDT I was the attending physician supervising the resident in the above care. For the purposes of billing, the resident provided the care. * Meron Jerry - 11/09/2012 12:02 PM EDT PAIN CLINIC FOLLOW-UP Katheryn Carranza [phone] Last pain clinic visit: 09/29/12 Clinic visit Reason for follow-up: Ongoing pain & headaches Chief Complaint: Left-sided neck pain with occasional occipital headaches Identification: Ms. Carranza is a 52 y.o.-year-old female, who has a history of long-standing neck pain, s/p left RFA. History of Present Illness/Interval History Katheryn had cervical RFA 09/11/12 and has had increased pain in the left neck with increased pain to touch in the region of the left neck. This seems to be a new pain worse when patient flexes neck. Patient has also been waking up with pain but she is lying on her stomach with her neck turned to the right side. Patient has been prescribed percocet in the past, which helps take the edge. Patient is currently taking Mobic 15 mg QD with minimal benefit. The pain is described as left-sided the neck radiating occasionally up in over the year with migraine headaches and a band like tension headache associated with this. There is no pain in the arms or tingling in the fingers currently. MRI was repeated, results below. Past Treatments Medications Ibuprofen, percocet, vicodin, lidocaine patches, tramadol Physical Therapy PT Procedures Left medial branch blocks/RFA Surgeries None on neck Other Past Medical History Diagnosis Date ??? Neck pain on left side 07/04/2012 Past Surgical History Procedure Date ??? Reduction of large breast 12/09/2011 REDUCTION MAMMOPLASTY, EVA performed by DEMETRA SOMMERS at [facility] Current Outpatient Prescriptions Medication Sig Dispense Refill ??? estradiol (ESTRACE) 1 mg tablet Take 1 mg by mouth daily. ??? metaxalone (SKELAXIN) 800 mg tablet Take 800 mg by mouth 3 times daily. ??? QUEtiapine (SEROQUEL) 25 mg tablet Take 50 mg by mouth nightly. ??? multivitamin (THERAGRAN) [...] cream Apply topically 2 times daily. ??? OXYcodone-acetaminophen (PERCOCET) 5-325 mg per tablet Take 1-2 tablets by mouth every 6 hours as needed for Pain. 30 tablet 0 ??? lidocaine (LIDODERM) 5 %(700 mg/patch) Place 1 patch onto the skin every 12 hours. 10 patch 1 ??? meloxicam (MOBIC) 7.5 mg tablet 1-2 tablets per day for pain/inflammation prn 60 tablet 12 ??? DISCONTD: OXYcodone-acetaminophen (PERCOCET) 5-325 mg per tablet Take 1 tablet by mouth every 4hours as needed for Pain. 12 tablet 0 ??? baclofen (LIORESAL) 10 mg tablet Take 10 mg by mouth 3 times daily. ??? busPIRone (BUSPAR) 15 mg tablet Take 15 mg by mouth 2 times daily. 1 tab in am and 1/2 tab at noon ??? ibuprofen (ADVIL;MOTRIN) 800 mg tablet Take 800 mg by mouth 3 times daily as needed. Current Facility-Administered Medications Medication Dose Route Frequency Provider Last Rate Last Dose ??? BUpivacaine (PF) (MARCAINE) 0.25 % (2.5 mg/mL) injection 25 mg 25 mg Intramuscular Once Meron Jerry MD 25 mg at 11/09/12 1202 ??? methylPREDNISolone acetate (depo-MEDROL) injection 40 mg 40 mg Intramuscular Once Meron Jerry MD 40 mg at 11/09/12 1202 ALLERGIES: Pollen, Zoloft History Social History ??? Marital Status: Spouse Name: N/A Number of Children: N/A ??? Years of Education: N/A Occupational History ??? Not on file. Social History Main Topics ??? Smoking status: Current Everyday Smoker -- 0.2 packs/day for 35 years Types: Cigarettes Last Attempt to Quit: 06/10/2010 ??? Smokeless tobacco: Not on file ??? Alcohol Use: Not on file ??? Drug Use: Not on file ??? Sexually Active: Not on file Other Topics Concern ??? Not on file Social History Narrative ??? No narrative on file Review of Systems Constitutional Denies weight loss or gain, fevers, chills, nightsweats HEENT Denies hearing and vision problems. Does not wears glasses. Cardiovascular Denies chest pain, palpitations. Respiratory Denies cough, SOB, WINN. GI Denies constipation, diarrhea, nausea, vomiting, GERD Denies dysuria, retention. Musculoskeletal Pain involves neck. Neurologic Denies fainting spells, seizures, memory loss. Sleep is interputed. Weakness and numbness as reported in HPI Psychiatric Describes mood as ok. Denies suicidal or homicidal ideation. Hematologic Denies anticoagulant use. Physical Exam Blood pressure 124/88, pulse 83, resp. rate 20, height 166.4 cm (5' 5.5), weight 84.369 kg (186 lb), SpO2 96.00%. Constitutional AxOx3, NAD Psychiatric Affect is appropriate, angry, anxious). Goal directed thought process. Good eye contact. Lungs Clear to auscultation Cardiac Reg RR without murmur, rub Musculoskeletal Inspection of spine reveals normal posture, lordosis, without scoliosis or kyphosis. Full range of motion of all joints of upper and lower extremities without tenderness, synovitis or effusion ROM decreased in neck flexion, myofascial trigger points noted in left trapezius, levator scapulae Neuro Motor: Deltoid, biceps, triceps, human factors specialist 5/5 bilaterally. IP, quads, DF, EHL, PF 5/5 bilaterally. Reflexes: Biceps, triceps, BR 2+ bilaterally. Negative Yates's bilaterally. No clonus. Toes downgoing. Gait is normal Able to heel walk and able to toe walk. IMAGING: (09/29/12 - Cervical spine MRI) Degenerative disc changes with mild narrowing of the central canal at C3-C4 and C4-C5. Left foraminal narrowing at C3-C4. Assessment Patient with continued axial neck pain after good response to left C4, C5, C6 MBB. Patient however continues to have pain in her left neck, noticeably with extension, allodynia to touch and myofascial bands in the left trapezius and levator scapulae. I explained some of this discomfort may be residual from the RFA on 09/11/12 and should continue to improve. Also, because of worsening neck pain, I discussed with the patient utility of performing a cervical MRI. Recommendations/Plan I reviewed general options for managing chronic pain including: Medications, Interventional/Surgical procedures, Physical and Behavioral modalities. In addition, I discussed options for medications including OTC preparations, NSAIDs, muscle relaxants, antidepressants, anticonvulsants, and opioids. 1. Medications: I discussed utility of lidocaine patch topically for allodynia symptoms post- procedure; however insurance would not approve this medication. Patient tried Mobic 7.5 mg 1-2 tabs QD as needed; however it has provided little benefit. Based on MRI finding and lack of response to above treatment, patient may benefit from low dose opioid treatment trial in the future. Patient did well on Percocet 5/325 in the past. I provided a prescription for 30 tabs, no refills to be used in conjunction with her physical therapy. I explained atlength to Katherny that long-term opioid use for chronic non-cancer pain has many pitfalls. We discussed risk and benefits. We specifically discussed that with opioid use we expect not only decreased pain, but also increased function. I am hoping with decreased pain, therapy will be more productive asI do believe a large component of her pain is musculoskeletal. I also explained this is a one time p rescription. Patient follow with Dr. Fitzgerald in [place] end of November. At that time, this trial can be evaluated, especially reduction in pain with more activity/function. Also, I emphasized appropriate use of prn medication. If Katheryn significantly improves in both pain and function and chronic opioid t herapy is pursued I would recommend an opioid contract with periodic urine drug screens. 2. Therapy: Patient will continue with PT for cervical increase range of motion and order was placed for TENS unit for local application in the cervical region. 3. Procedures: Given myofascial component to pain and tenderness at nuchal ridge related to headaches, bilateral occipital nerve blocks and trigger point injections were performed today. We can repeat these in 1 month if helpful, patient will call and let us know efficacy of blocks. 5. Referral: Referral to headache clinic/neurology placed. Meron Jerry MD Fellow, Pain Medicine Pager [phone] cc: SANTI FITZGERALD, [employer] None This encounter lasted 30 minutes with 22 minutes spent in [id number] education and counseling regarding management of chronic pain and coordination of care as described above. Occipital Nerve Block Date of Service: 11/09/2012 Patient: Katheryn Carranza 1960 52 y.o. female Provider: MERON JERRY MD Ms. Carranza presents to the Pain Clinic today for an Occipital Nerve Block. She was initially referred by Dr. Fitzgerald. Ms. Carranza is complaining of bilateral occipital headache that begins at the occipital protuberance without radiation. Physical Examination: Filed Vitals: 11/09/12 0937 BP: 124/88 Pulse: 83 Resp: 20 NAD, appropriate. normal affect Procedure Ms. Carranza [...] Meron Jerry MD Fellow, Pain Medicine Pager [phone] Trigger Point Injections Date of Service: 11/09/2012 Patient: Katheryn Carranza 1960 52 y.o. female Provider: MERON JERRY MD Ms. Carranza is complaining of pain in bilateral trapezius and splenius capitus. Physical Examination: Filed Vitals: 11/09/12 0937 BP: 124/88 Pulse: 83 Resp: 20 NAD, appropriate. Upon palpation of the bilateral [...] Meron Jerry MD Fellow, Pain Medicine Pager [phone] documented in this encounter Plan of Treatment Upcoming Encounters Date Type Department Care Team (Late st Contact Info) Description 03/07/2024 10:00 AM EDT Appointment XRay at [address] [place] [phone] Tien Zurita MD [facility] [place] [address] 03/07/2024 10:40 AM EDT Office Visit Neurosurgery at [facility] [place] [address] Angel Hankins PA [facility] [place] [address] Scheduled Orders Name Type Priority Associated Diagnoses Orde r Schedule NERVE BLOCK - OCCIPITAL Neurology Routine Headache Myofascial pain Ordered: 11/09/2012 TRIGGER POINT INJECTION - 3 OR 4 MUSCLES Neurology Routine Headache Myofascial pain Ordered: 11/09/2012 Scheduled Referrals Name Type Priority Associated Diagnoses Orde r Schedule Referral to Neurology Outpatient Referral Routine Headache Myofascial pain Ordered: 11/09/2012 documented as of this encounter Visit Diagnoses Diagnosis Headache(784.0)- Primary Headache Myofascial pain Mylagia and myositis, unspecified documented in this encounter Administered Medications Inactive Administered Medications - up to 3 most recent administrations Medication Order MAR Action Action Date Dose Rate Site BUpivacaine (PF) (MARCAINE) 0.25 % (2.5 mg/mL) injection 25 mg 25 mg, Intramuscular, ONCE, 1 dose, On Teresa 11/09/12 at 1230, Routine Given 11/09/2012 12:02 PM EDT 25 mg methylPREDNISolone acetate (depo-MEDROL) injection 40 mg 40 mg, Intramuscular, ONCE, 1 dose, On Teresa 11/09/12 at 1230, Routine Given 11/09/2012 12:02 PM EDT 40 mg documented in this encounter
--- OUTSIDE RECORDS SUMMARY | 2024-02-12 18:10 | XMS_ITS | Encounter Summary ---
[place] [address] Care Team Providers Care Automatic Drilling Machine Operator Name Role Phone Unavailable Primary Care Provider Unavailabl e Encounter Details Date Type Department Care Team (Late st Contact Info) Description 09/10/2014 Telephone [place] [address] Maria Peoples LPN Social History Tobacco Use Types Packs/Day [...] encounter Miscellaneous Notes * Telephone Encounter - Maria Sargent LPN - 09/10/2014 8:15 AM EDT Katheryn Carranza :1960 Message left: I left a message on answering machine Ms. Carranza at 8:16 AM regarding her upcoming Left cervical medial branch block with Dr. Rita Garcia MD. Message included the followin. Patient instructed to arrive at 10:40 (30 minutes prior to procedure start time) on 09/11/14 (dateof procedure) with their stacker driver. 2. Following instructions left in the [...] your body within the last two weeks? Advised patient not to take her pain medication prior to appointment due to the procedure is a testprocedure. Maria Sargent LPN documented in this encounter Plan of Treatment Upcoming Encounters Date Type Department Care Team (Late st Contact Info) Description 03/07/2024 10:00 AM EDT Appointment XRay at [address] [place] [address] Tien Zurita MD [facility] [place] [address] 03/07/2024 10:40 AM EDT Office Visit [facility]surgery at [facility] [place] [phone] Angel Hankins PA [facility] [place] [address] documented as of this encounter Visit Diagnoses Not on filedocumented in this encounter
--- OUTSIDE RECORDS SUMMARY | 2024-02-12 18:10 | XMS_ITS | Encounter Summary ---
Author Organization [facility] Address [facility] [place] [address] Care Team Providers Care Powder Guard Name Role Phone Unavailable Primary Care Provider Unavailabl e Encounter Details Date Type Department Care Team (Latest Contact Info) Description 07/09/2014 3:10 PM EST - 07/09/2014 11:59 PM [facility] Hospital Encounter XRay at [address] [place] [address] Cervical spondylosis without myelopathy Social History Tobacco Use Types Packs/Day [...] 45 mcg/actuation HFA Aerosol Inhaler .COMPLEX 11/20/2013 celecoxib (CELEBREX) 200 mg Capsule Take 200 [...] nightly. 09/10/2014 documented as of this encounter Plan of Treatment Upcoming Encounters Date Type Department Care Team (Late st Contact Info) Description 03/07/2024 10:00 AM EDT Appointment XRay at [address] [place] [address] Tien Zurita MD [facility] [place] [address] 03/07/2024 10:40 AM EDT Office Visit Neurosurgery at [facility] [place] [address] Angel Hankins PA [facility] [place] [address] documented as of this encounter Procedures Procedure Name Priority Date/Time Associated Diagnosis Comments XR CERVICAL SPINE 2 OR 3 VIEWS Routine 07/09/2014 3:18 PM EST documented in this encounter Results * XR Cervical Spine 2 or 3 views (07/09/2014 3:18 PM EST) Anatomical Region Laterality Modality C-spine N/A Radiographic Mariola ging 07/09/2014 3:18 PM EST Impressions 07/09/2014 4:28 PM EST IMPRESSION: Significant degenerative changes and bony overgrowth with posterior facet arthropathy more left-sided than right. Bulky anterior osteophytes noted at C3-4 C4-5 and C5-6. Narrative 07/09/2014 4:28 PM EST EXAMINATION: Cervical Spine 2 or 3 Views CLINICAL HISTORY: 53 yo female with neck pain, occipital neuralgia, cervical spondylosis TECHNIQUE: ? COMPARISON: MR 09/29/2012. ?? FINDINGS: AP and lateral views of the cervical spine standing with imaging from C1 to C7. Anterior posterior spinal alignment is maintained as well as the spinal lamina line. There is significant bony overgrowth posterior facets at C2-3. Anterior osteophytes at C3-4 C4-5 and C5-6 are present. Uncovertebral joint degenerative changes are noted on the AP view . Procedure Note Mee Leyva MD - 07/09/2014 EXAMINATION: Cervical Spine 2 or 3 Views CLINICAL HISTORY: 53 yo female with neck pain, occipital neuralgia,cervical spondylosis TECHNIQUE: COMPARISON: MR 09/29/2012. FINDINGS: AP and lateral views of the cervical spine standing with imaging from C1to C7. Anterior posterior spinal alignment is maintained as well as the spinallamina line. There is significant bony overgrowth posterior facets at C2-3.Anterior osteophytes at C3-4 C4-5 and C5-6 are present. Uncovertebral jointdegenerative changes are noted on the AP view . IMPRESSION IMPRESSION: Significant degenerative changes and bony overgrowth with posteriorfacet arthropathy more left-sided than right. Bulky anterior osteophytes notedat C3-4 C4-5 and C5-6. Rita Garcia MD IMG DX ORDERABLES documented in this encounter Visit Diagnoses Diagnosis Cervical spondylosis without myelopathy documented in this encounter
--- OUTSIDE RECORDS SUMMARY | 2024-02-12 18:10 | XMS_ITS | Encounter Summary ---
Author Organization [facility] [place] [address] Care Team Providers Care Aquatic Scientist Name Role Phone Unavailable Primary Care Provider Unavailabl e Encounter Details Date Type Department Care Team (Late st Contact Info) Description 01/22/2015 Orders [place] [address] Fracisco Miller MD [facility] [place] [address] Bilateral knee pain Social History Tobacco Use [...] 10:00 AM EDT Appointment XRay at [address] [place] [address] Tien Zurita MD [facility] [place] [address] 03/07/2024 10:40 AM EDT Office [place] [address] Angel Hankins PA [facility] [place] [address] documented as of this encounter Results * XR Joint Team Standing Alignment AP Lat Schuss [place] Bilateral (02/27/2015 10:24 AM EDT) Anatomical Region [...] knee pain Pain in joint, lower leg Bilateral knee pain Pain in joint, lower leg documented in this encounter
--- OUTSIDE RECORDS SUMMARY | 2024-02-12 18:10 | XMS_ITS | Encounter Summary ---
Author Organization [facility] [place] [address] Care Team Providers Care Management Department Chair Name Role Phone Unavailable Primary Care Provider Unavailabl e Encounter Details Date Type Department Care Team (Late st Contact Info) Description 12/09/2011 3:45 PM EDT Anesthesia Event [place] [address] Jessica Bryant MD [facility] [address] [place] [address] Michael Granado MD [facility] [place] [address] Anesthesia Record Procedure Summary Procedure Name Responsible [...] OR Notes * Anesthesia Postprocedure Evaluation - Teofilo Mallory MD - 12/10/2011 9:30 AM EDT Patient: Katheryn Carranza Procedure(s) Performed: Procedure(s): REDUCTION MAMMOPLASTY, EVA MODIFIER VASQUEZ Patient location: PACU Post-op pain: Adequate analgesia Post-op nausea: no nausea or vomiting Last Vitals: Filed Vitals: 12/09/11 2100 BP: 163/84 Pulse: 90 Temp: 36.6 ??C (97.9 ??F) Resp: 16 Post-op cardiovascular and respiratory status: is stable Level of consciousness: awake Complications: no apparent complications Fluid Status: normal * Anesthesia Postprocedure Evaluation - Jessica Bryant MD - 12/10/2011 6:26 AM EDT Patient: Katheryn Carranza Procedure(s) Performed: Procedure(s): REDUCTION MAMMOPLASTY, EVA MODIFIER VASQUEZ Patient location: PACU Post-op pain: Adequate analgesia Post-op nausea: no nausea or vomiting Last Vitals: There were no vitals filed for this visit. Post-op cardiovascular and respiratory status: is stable Level of consciousness: awake, alert and oriented Complications: no apparent complications and tolerated the procedure well Fluid Status: normal * Anesthesia Postprocedure Evaluation - Jessica Bryant MD - 12/10/2011 4:36 AM EDT Patient: Katheryn Carranza Procedure(s) Performed: Procedure(s): REDUCTION MAMMOPLASTY, EVA MODIFIER VASQUEZ Patient location: PACU Post-op pain: Pain needs to be addressed Post-op nausea: no nausea or vomiting Last Vitals: There were no vitals filed for this visit. Post-op cardiovascular and respiratory status: is stable Level of consciousness: awake, alert and oriented Complications: no apparent complications and tolerated the procedure well Fluid Status: normal * Anesthesia Preprocedure Evaluation - Teofilo Mallory MD - 12/08/2011 8:37 PM EDT Anesthesia Evaluation Patient summary reviewed and Nursing notes reviewed No hx of anesthetic complications Airway Dental Pulmonary ROS comment: 40 pk yr smoker - quit one year ago Cardiovascular (+) hypertension, Neuro/Psych (+) psychiatric history (Attention deficit problems, Sleep problems - on multiple meds) GI/Hepatic/Renal (+) GERD, Endo/Other Comments: Breast Hypertrophy Chronic pain problems Abdominal Anesthesia Plan ASA 2 General with intravenous induction Patient for bilateral breast reduction surgery - chronic pain problems. OK for intravenous induction and maintenance of anesthesia. Patient aware of risks and procedure. Anesthetic plan and risks discussed with patient. Plan discussed with PAPER HANGER. documented in this encounter Miscellaneous Notes * Addendum Note - Cori Welch - 12/10/2011 10:51 AM EDT Addendum created 12/10/11 1051 by Cori Welch Modules edited:Anesthesia Events, Anesthesia Responsible Staff * Addendum Note - Teofilo Mallory MD - 12/10/2011 9:33 AM EDT documented in this encounter Plan of Treatment Upcoming Encounters Date Type Department Care Team (Late st Contact Info) Description 03/07/2024 10:00 AM EDT Appointment XRay at [address] [place] [address] Tien Zurita MD [facility] [place] [address] 03/07/2024 10:40 AM EDT Office Visit Neurosurgery at [facility] [place] [address] Angel Hankins PA [facility] [place] [address] documented as of this encounter Visit Diagnoses Not on filedocumented in this encounter
--- OUTSIDE RECORDS SUMMARY | 2024-02-12 18:10 | XMS_ITS | Encounter Summary ---
Author Organization [facility] [place] [address] Care Team Providers Care Sap Portal Architect Name Role Phone Unavailable Primary Care Provider Unavailabl e Reason for Referral * Physical Therapy (Routine) - Complete - Patient Will Schedule External Appt Specialty Diagnoses / Procedures Referred By Contac t Referred To Contact Physical Therapy Diagnoses Cervicalgia Meron Jerry MD [facility] [place] [address] Referral ID Status Reason Start Date Expiration Date Visits Requested Visits Authorized [id number] Complete - Patient Will Schedule External Appt Evaluate and Treat 09/27/2012 03/26/2013 12 12 Reason for Visit * Reason Comments Pain Management Encounter Details Date Type Department Care Team (Late st Contact Info) Description 09/27/2012 1:15 PM EDT Follow-[place] [phone] Meron Jerry MD [facility] [place] [address] Cervicalgia (Primary Dx) Discharge Disposition: Home Social [...] Sign Reading Time Taken Comments Blood Pressure 140/86 09/27/2012 1:17 PM EDT Pulse 83 09/27/2012 1:17 PM EDT Temperature - - Respiratory Rate - - Oxygen Saturation 99% 09/27/2012 1:17 PM EDT Inhaled Oxygen Concentration - - Weight 79.8 kg (176 lb) 09/27/2012 1:17 PM EDT Height 166.4 cm (5' 5.5) 09/27/2012 1:17 PM EDT Body Mass Index 28.84 09/27/2012 1:17 PM EDT documented in this encounter Progress Notes * Rita Garcia MD - 09/28/2012 1:27 PM EDT I was the attending physician supervising the resident in the above care. For the purposes of billing, the resident provided the care. * Meron Jerry - 09/27/2012 1:15 PM EDT PAIN CLINIC FOLLOW-UP Katheryn Carranza [id number] Last pain clinic visit: 09/11/12 RFA Left C4, C5, C6 Reason for follow-up: Ongoing pain Chief Complaint: Left-sided neck pain with occasional occipital headaches Identification: Ms. Carranza is a 51 y.o.-year-old female, who has a history of long-standing neck pain, s/p left RFA. History of Present Illness/Interval History Katheryn had cervical RFA 09/11/12 and has had increased pain in the left neck with increased pain to touch in the region of the left neck. This seems to be a new pain, which is worse when patient flexes neck. Patient has also been waking up with pain but she is lying on her stomach with her neck turnedto the right side. Patient has been prescribed percocet in the past, which helps take the edge. Patient is currently taking 800 mg Ibuprofen 2-3 times per day. The pain is described as left-sided theneck radiating occasionally up in over the year with migraine headaches and a band like tension headache associated with this. There is no pain in the arms or tingling in the fingers currently. Past Treatments Medications Ibuprofen, percocet, vicodin, lidocaine patches, tramadol Physical Therapy PT Procedures Left medial branch blocks/RFA Surgeries None on neck Other Past Medical History Diagnosis Date ??? Neck pain on left side 07/04/2012 Past Surgical History Procedure Date ??? Reduction of large breast 12/09/2011 REDUCTION MAMMOPLASTY, EVA performed by DEMETRA SOMMERS at [facility] MAIN OR Current Outpatient Prescriptions Medication Sig Dispense Refill ??? estradiol (ESTRACE) 1 mg tablet Take 1 mg by mouth daily. ??? OXYcodone-acetaminophen (PERCOCET) 5-325 mg per tablet Take 1 tablet by mouth every 4 hours as needed for Pain. 12 tablet 0 ??? metaxalone (SKELAXIN) 800 mg tablet Take [...] methylphenidate (CONCERTA) 18 mg CR tablet Take 54 mg by mouth every morning. ??? methylphenidate (CONCERTA) 27 mg CR tablet Take 27 mg by mouth every evening. ??? eszopiclone (LUNESTA) 3 mg Tab Take 3 mg by mouth nightly. ??? ketoconazole (NIZORAL) 2 % cream Apply topically 2 times daily. ??? ibuprofen (ADVIL;MOTRIN) 800 mg tablet Take 800 mg by mouth 3 times daily as needed. ALLERGIES: Pollen, Zoloft History Social History ??? Marital Status: Spouse Name: N/A Number of Children: N/A ??? Years of Education: N/A Occupational History ??? Not on file. Social History Main Topics ??? Smoking status: Current Everyday Smoker -- 0.5 packs/day for 35 years Types: Cigarettes Last [...] ideation. Hematologic Denies anticoagulant use. Physical Exam There were no vitals taken for this visit. Constitutional AxOx3, NAD Psychiatric Affect is appropriate, [...] levator scapulae Neuro Motor: Deltoid, biceps, triceps, ammonia nitrate operator 5/5 bilaterally. IP, quads, DF, EHL, PF 5/5 bilaterally. Reflexes: Biceps, triceps, BR 2+ bilaterally. Negative Yates's bilaterally. No clonus. Toes downgoing. Gait is normal Able to heel walk and able to toe walk. Assessment Patient with continued axial neck pain [...] lidocaine patch topically for allodynia symptoms post- procedure. Patient states she had good relief from lidocaine patches in the past. Patient has used lidocaine ointment withminimal benefit in the past. This is a good option for her localized, superficial pain in the left neck region. Prescription given for lidocaine patch, #10, 1 refill I suggested maybe a different anti-inflammatory, including Mobic 7.5 mg 1-2 tabs QD as needed. Prescription given. Based on MRI finding and response to above treatment, patient may benefit from low dose opioid treatment trial in the future. 2. Therapy: Patient could consider therapy in the future for cervical increase range of motion and order was placed for TENS unit for local application in the cervical region. 3. Imaging: Patient has ongoing pain despite treatment and has not had imaging in the past. We will schedule patient for cervical MRI without contrast. 4. Procedures: Patient may benefit from trigger point injections or other therapy once MRI images are reviewed. 5. Referral: If patient continues to have ongoing headache, consider referral to headache clinic. Prescriptions Written: ~ Lidoderm patch Mobic Diagnostic Tests/Procedures Ordered: ~ MRI Follow-up: 3-4 weeks Meron Jerry MD Fellow, Pain Medicine Pager [phone] cc: SANTI FITZGERALD, JACKIE None This encounter lasted 30 minutes with 22 minutes spent in [id number] education and counseling regarding management of chronic pain and coordination of care as described above. documented in this encounter Miscellaneous Notes * Addendum Note - Meron Jerry - 09/28/2012 12:21 PM EDTAddended by: MERON JERRY on: 09/28/2012 12:21 PM Modules accepted: Orders documented in this encounter Plan of Treatment Upcoming Encounters Date Type Department Care Team (Late st Contact Info) Description 03/07/2024 10:00 AM EDT Appointment XRay at [address] [place] [address] Tien Zurita MD [facility] [place] [address] 03/07/2024 10:40 AM EDT Office Visit Neurosurgery at [facility] [place] [phone] Angel Hankins PA [facility] [place] [address] Scheduled Referrals Name Type Priority Associated Diagnoses Orde r Schedule Referral to Physical Therapy Outpatient Referral Routine Cervicalgia Ordered: 09/27/2012 documented as of this encounter Visit Diagnoses Diagnosis Cervicalgia- Primary documented in this encounter
--- OUTSIDE RECORDS SUMMARY | 2024-02-12 18:11 | XMS_ITS | Encounter Summary ---
Author Organization [facility] [place] [address] Care Team Providers Care Heat Seal Operator Name Role Phone Unavailable Primary Care Provider Unavailabl e Encounter Details Date Type Department Care Team (Late st Contact Info) Description 07/14/2010 [place] [phone] Jackie Garcia MD [facility] DIAGNOSTIC RADIOLOGY [place] [phone] Social History Tobacco Use Types Packs/Day Years [...] 10:00 AM EDT Appointment XRay at [address] [place] [phone] Tien Zurita MD [facility] [place] [address] 03/07/2024 10:40 AM EDT Office [place] [phone] Angel Hankins PA [facility] [address] [place] [place] [phone] Pending Results Name Type Priority Associated Diagnoses Date /Time Film Library- Storage only Mammo Imaging Routine 07/14/2010 1:05 PM EST documented as of this encounter Visit Diagnoses Not on filedocumented in this encounter
--- OUTSIDE RECORDS SUMMARY | 2024-02-12 18:11 | XMS_ITS | Encounter Summary ---
Author Organization [facility] [place] [address] Care Team Providers Care Abe Teacher Name Role Phone Unavailable Primary Care Provider Unavailabl e Reason for Visit * Reason Comments Advice Only BBR Encounter Details Date Type Department Care Team (Late st Contact Info) Description 01/13/2011 9:00 AM EDT Office [place] [address] Pauly Melo MD [facility] [place] [address] Breast hypertrophy (Primary Dx) Discharge Disposition: Home [...] Sign Reading Time Taken Comments Blood Pressure 130/78 01/13/2011 9:31 AM EDT Pulse - - Temperature - - Respiratory Rate - - Oxygen Saturation - - Inhaled Oxygen Concentration - - Weight 90.3 kg (199 lb) 01/13/2011 9:31 AM EDT Height 165.1 cm (5' 5) 01/13/2011 9:31 AM EDT Body Mass Index 33.12 01/13/2011 9:31 AM EDT documented in this encounter Patient Instructions * Patient Instructions* Eusebia Motley RN - 01/13/2011 10:24 AM EDT Welcome to [employer], your secure online access to your electronic medical record at [facility]. Using [employer] you will be able to send messages to your providers, view your test results, renew prescriptions, schedule appointments, and much more. Follow these instructions to enter your personal [employer] account for the first time: 1. Start your internet browser. Go to [email or web address] and click on the [employer] link. 2. Click SIGN UP NOW to go to the NEW MEMBER SIGN UP page. 3. Enter your [employer] Access Code exactly as it appears below. (You will not need this access code after you have completed the sign-up process.) ?? Your [employer] Access Code: [email or web address] ?? Expires: 02/27/11 10:24 AM ?? IMPORTANT: This Access Code will on the above mentioned date. If you do not sign up before this date, you will need to request a new Access Code number. 4. Enter your Date of (mm/dd/yyyy) and zip code click SUBMIT to go to the next page. 5. Create a [employer] identification (ID). This will be your [employer] login ID and cannot be changed, so think of one that is secure and easy to remember. 6. Create a password which you can change at any time. Your password must contain six (6) letters and two (2) numbers. 7. Enter your Password Reset Question and Answer. This will be used if you forget your password. 8. Enter your e-mail address. This is used to let you know when new information is available in [employer]. 9. Click SIGN UP to complete the process. You can now view your electronic medical record. If you have any questions about [employer] or your Access Code, please call for [place], for [place] or for [place]. If you need technical support, please e-mail [email or web address]. Remember, myD-H is NOT for urgent needs! Always dial 911 for medical emergencies. Please review your pre-op packet prior to surgery. If you have any questions please call the plastic surgery nurses at [phone]. Thank You. documented in this encounter Progress Notes * Pauly Melo MD - 01/13/2011 10:13 AM EDT PLASTIC SURGERY OFFICE NOTE Pauly Melo MD PCP: SAILAJA FITZGERALD APRN CANDLE WRAPPER: As above Reason for office visit: Symptomatic macromastia CC: I was asked by Sailaja Fitzgerald [facility] to evaluate Ms. Carranza, a 50 year-old woman, for symptomaticmacromastia. She has been previously seen by Dr. Adler but was a smoker at that time. She has since quit smoking. She is accompanied for by her daughter and granddaughter for today???s visit. She has completed the breast specific symptom questionnaire and reports that all or most of the time shehas the following physical or psychosocial symptoms. 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 PLAN: Bilateral [...] surgery is best done at a realistic custodial stable weight. We talked about the ou tpatient nature of the surgery, drains, postoperative recovery, and time required off work. We talked about the impact of this surgery on decreasing breast cancer risk. She has been referred to [email or web address] and provided with my e-mail address. We [...] revisions for scarring or asymmetry.) Barker or Maybee Pattern Incision: More scarring on breast, but [...] encounter Miscellaneous Notes * Miscellaneous - Wei, Marshmallow Runner - 01/26/2011 11:29 AM EDT * Miscellaneous - Wei, Marshmallow Runner - 01/20/2011 1:04 PM EDT documented in this encounter Plan of Treatment Upcoming Encounters Date Type Department Care Team (Late st Contact Info) Description 03/07/2024 10:00 AM EDT Appointment XRay at [address] [place] [address] Tien Zurita MD [facility] [place] [place] [address] 03/07/2024 10:40 AM EDT Office Visit Neurosurgery at [facility] [place] [phone] Angel Hankins PA [facility] [place] [address] documented as of this encounter Visit Diagnoses Diagnosis Breast hypertrophy- Primary Hypertrophy of breast documented in this encounter
--- OUTSIDE RECORDS SUMMARY | 2024-02-12 18:11 | XMS_ITS | Encounter Summary ---
Author Organization [facility] [place] [address] Care Team Providers Care Police Sergeant Precinct Name Role Phone Unavailable Primary Care Provider Unavailabl e Encounter Details Date Type Department Care Team (Late st Contact Info) Description 01/12/2011 Abstract [place] [phone] Aria Lomas RN Social History Tobacco Use Types Packs/Day [...] 10:00 AM EDT Appointment XRay at [address] [place] [phone] Tien Zurita MD [facility] [address] 03/07/2024 10:40 AM EDT Office [place] [address] Angel Hankins PA [facility] [place] [address] documented as of this encounter Visit Diagnoses Not on filedocumented in this encounter
--- OUTSIDE RECORDS SUMMARY | 2024-02-12 18:11 | XMS_ITS | Encounter Summary ---
[place] [address] Care Team Providers Care Tray Filler Name Role Phone Unavailable Primary Care Provider Unavailabl e Reason for Visit * Reason Comments Advice Only bbr discussion Encounter Details Date Type Department Care Team (Latest Contact Info) Description 04/07/2011 1:00 PM EDT Clinical [place] [id number] NURSE, PLASTIC SURGERY Surgery aftercare (Primary Dx) Discharge Disposition: Home Social History [...] Sign Reading Time Taken Comments Blood Pressure 110/60 04/07/2011 2:11 PM EDT Pulse - - Temperature - - Respiratory Rate - - Oxygen Saturation - - Inhaled Oxygen Concentration - - Weight 84.8 kg (187 lb) 04/07/2011 2:11 PM EDT Height 166.4 cm (5' 5.5) 04/07/2011 2:11 PM EDT Body Mass Index 30.65 04/07/2011 2:11 PM EDT documented in this encounter Miscellaneous Notes * Miscellaneous - Wei, Mold Bunch Trimmer - 07/22/2011 5:23 PM EST * Miscellaneous - Wei, Mold Bunch Trimmer - 04/27/2011 10:18 AM EST documented in this encounter Plan of Treatment Upcoming Encounters Date Type Department Care Team (Late st Contact Info) Description 03/07/2024 10:00 AM EDT Appointment XRay at [address] [place] [phone] Tien Zurita MD [facility] [place] [address] 03/07/2024 10:40 AM EDT Office Visit Neurosurgery at [facility] [place] [address] Angel Hankins PA [facility] [place] [address] documented as of this encounter Visit Diagnoses Diagnosis Surgery aftercare- Primary Other specified aftercare following surgery documented in this encounter
[2024-02-12] MEDS: Ketamine 500 MG/10 ML VIAL 27 MG IVP (18:20)
--- NOTE | 2024-02-12 18:30 | DI.RAD_ITS ---
Exam(s) XR SHOULDER LT COMP POST REDUC EXAM: XR SHOULDER LT COMP POST REDUC CLINICAL HISTORY: post reduction keep in sling please. TECHNIQUE: 2D digital imaging was performed. Four views. COMPARISON: CR,XR XR SHOULDER LT COMPLETE 2+V from 02/12/2024 FINDINGS: Exam is labeled post reduction. There has been no change in the alignment of the shoulder dislocatio n and fracture of the humeral head. IMPRESSION: No change in alignment of dislocation status post reduction. DATA REPOSITORY: RADIATION DOSE DELIVERED:
--- NOTE | 2024-02-12 18:45 | DI.CT_ITS ---
Exam(s) CT UPPER EXTREMITY LT WO EXAM: CT UPPER EXTREMITY LT WO CLINICAL HISTORY: shoulder injury TECHNIQUE: Imaging Protocol: Axial computed tomography images with coronal and sagittal reformatted images were created and reviewed. CONTRAST MATERIAL: Intravenous: Omnipaque 350 Contrast volume:structured data in ml Contrast route:I V - COMPARISON: CR,XR XR SHOULDER LT COMP POST REDUC from 02/12/2024 FINDINGS: Bones: The humeral head is dislocated anteriorly and inferiorly with respect to the glenoid. There a re multiple fracture fragments from the region of the greater tuberosity. The humeral head appears i mpacted on the glenoid. No glenoid fracture visible. AC joint is not widened. Hardware incidentall y noted in cervical spine. Soft Tissues: Muscle contusion of deltoid. IMPRESSION: Anteroinferior dislocation of the glenohumeral joint with impaction on the glenoid. No definite herbert oid fracture. Multiple fracture fragments are noted from the greater tuberosity. RADIATION DOSE DELIVERED: 467.53mGy.cm Total DLP DATA REPOSITORY: All CT scans at this facility are submitted to the National Radiology Data Registry (NRDR) Dose Index Registry (DIR) with the [employer] ([employer]). RADIATION OPTIMIZATION: All CT scans at this facility use at least one of these dose optimization te chniques: automated exposure control; mA and/or kV adjustment per patient size (includes targeted exa ms where dose is matched to clinical indication); or iterative reconstruction.
[2024-02-12] MEDS: Ondansetron 4 MG/2 ML VIAL IVP (19:00)
[2024-02-12] MEDS: MORPHine 10 MG/ML VIAL 6 MG IVP (19:00)
--- NOTE | 2024-02-12 19:11 | DI.VRAD_ITS ---
PROCEDURE INFORMATION: Exam: XR Left Shoulder Exam date and time: 02/12/2024 6:44 PM Age: 63 years old Clinical indication: Injury or trauma; Fall; Other: Post reduction; Injury date: 02/12/24; Prior surgery; Surgery date: 6+ months; Surgery type: C spine TECHNIQUE: Imaging protocol: Radiologic exam of the left shoulder. Views: 2 or more views. COMPARISON: CR XR SHOULDER LT COMPLETE 2+V 02/12/2024 5:03 PM FINDINGS: Bones/joints: Attempted closed reduction of left glenohumeral dislocation. Ineffective reduction. There is still anterior inferior dislocation. Displaced greater tuberosity fragments related to Hill-Sachs fracture. Soft tissues: Normal. IMPRESSION: Persistent dislocation and displaced greater tuberosity Hill-Sachs fracture fragments. Dictated and Authenticated by: Bobo Nieevs MD. Ordering:CONCHITA Hernadez MD
--- NOTE | 2024-02-12 19:37 | DI.VRAD_ITS ---
PROCEDURE INFORMATION: Exam: CT Left Upper Extremity Without Contrast, Shoulder Exam date and time: 02/12/2024 7:05 PM Age: 63 years old Clinical indication: Pain; Left; Patient HX: Shoulder injury TECHNIQUE: Imaging protocol: Computed tomography of the left upper extremity without contrast. Exam focused on the shoulder. COMPARISON: CR XR SHOULDER RT COMP POST REDUC 02/12/2024 6:44 PM FINDINGS: Bones/joints: Anterior inferior left glenohumeral dislocation. Impaction of the humeral head on the inferior glenoid rim. Displaced comminuted greater tuberosity fracture consistent with a Hill-Sachs fracture injury. No definable glenoid or scapular fracture. Clavicle and AC joint are in alignment. 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 Multilevel cervical spine fusion and laminectomies incidentally noted. Soft tissues: Lateral shoulder region soft tissue contusion/hematoma which appears to be intramuscular within the deltoid muscle. This is mild in severity. No soft tissue foreign body. Lungs: Left lung is unremarkable as visualized. Pleural space: Left pleural space is unremarkable. IMPRESSION: 1. Persistent anterior inferior glenohumeral dislocation with prominent Hill-Sachs fracture with comminution of the greater tuberosity and displacement. 2. No evidence of scapular fracture or glenoid fracture. 3. Intact clavicle. AC joint degenerative disease. 4. Mild soft tissue contusion/hematoma in the deltoid region lateral to the shoulder. Dictated and Authenticated by: Bobo Nieves MD. Ordering:CONCHITA Hernadez MD
--- NOTE | 2024-02-12 20:00 | DI.RAD_ITS ---
Exam(s) XR SHOULDER LT COMP POST REDUC EXAM: XR SHOULDER LT COMP POST REDUC INDICATION: post reduction. COMPARISON: CT CT UPPER EXTREMITY LT WO from 02/12/2024 TECHNIQUE: 2D digital imaging was performed. Two views. Portable FINDINGS: No change in alignment of fracture dislocation. DATA REPOSITORY: RADIATION DOSE DELIVERED:
--- NOTE | 2024-02-12 20:15 | RESPIRATORY ---
RT present on concious sedation procedure. Applied 4LPM O2 during procedure that maintained SpO2 98% throughout procedure then weaned down to baseline RA saturating 96% post procedure. No complication to respiratory, patient maintained acceptable etCO2 spontaneously with RR above 12.
[2024-02-12] MEDS: Ketamine 50 MG/5 ML SYRINGE (20:18)
[2024-02-12] MEDS: Normal Saline 1,000 ML 125 ML IV (20:19)
[2024-02-12] MEDS: Normal Saline Flush 10 ML SYR IVP (20:19)
[2024-02-12] MEDS: Propofol 200 MG/20 ML VIAL 90 MG IVP (20:19)
--- NOTE | 2024-02-12 20:32 | DI.VRAD_ITS ---
PROCEDURE INFORMATION: Exam: XR Left Shoulder Exam date and time: 02/12/2024 8:23 PM Age: 63 years old Clinical indication: Screening exam; Patient HX: Post-reduction 2024hr TECHNIQUE: Imaging protocol: Radiologic exam of the left shoulder. Views: 2 or more views. COMPARISON: CT UPPER EXTREMITY LT WO 02/12/2024 7:05 PM FINDINGS: Bones/joints: Persistent dislocation left glenohumeral joint with anterior inferior humeral head position impacted on glenoid. Hill-Sachs fracture of the greater tuberosity with displacement. Soft tissues: Normal. IMPRESSION: Persistent anterior inferior humeral head dislocation with Hill-Sachs fracture of the greater tuberosity. Dictated and Authenticated by: Bobo Nieves MD. Ordering:CONCHITA Hernadez MD
--- NOTE | 2024-02-12 20:46 | OCONE_ITS ---
Date of service: 02/12/24 Time of Service: 20:47 Assessment and Plan Assessment and plan (1) Fracture dislocation of left shoulder joint: Status: Acute Assessment and plan: 63 year old female with Left shoulder fx/dx ER unable to reduce after sedation x2, possibly complicated by incomplete relaxation due to hx substance abuse XRs and CT show persistent anterior inferior glenohumeral dislocation with Hill- Sachs impaction and displaced greater tuberosity fragments Recommend observation in ER overnight with reduction tomorrow morning. I will coordinate regional and/or general anesthesia with CRNAs. Procedure likely in ER as OR rooms appear full. Rest LUE on pillows, multimodal pain control, NPO after 11PM pending procedure AM update?patient resting comfortably in emergency room with left upper extremity on pillow. Demonstrates intact motor distally, grossly sensory intact, 2+ radial pulse. Brisk cap refill. Obvious sulcus sign shoulder with anterior chest prominence. No skin breakdown. Remainder musculoskeletal exam without acute injury. Reviewed options with patient. 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 Anesthesia due to induced and shoulder reduced with moderate effort required to disengage Hill-Sachs via Earnest maneuver and clinically reduced anterior chest prominence and sulcus. Post reduction x-rays confirmed glenohumeral reduction and reasonable greater tuberosity fracture alignment. Maintained and stable through neutral rotation to internal rotation. Sling applied in this position. Post dislocation and fracture precautions given to patient who voices eagerness to discharge home. Discharge order put in?to be done when appropriately recovered from sedation. Recommend acetaminophen and NSAIDs for pain control, with any narcotics to be prescribed by patient's primary care doctor given history. Follow-up to be arranged with me in 1 week. Reviewed potential chance of future surgery given instability and fracture. Challenging patient given incompletely known medical and social history, but what is known makes her a poor surgical candidate. PFSH All Active Problems (Updated 02/12/24 @ 20:48 by Gianni Lay MD) Fracture dislocation of left shoulder joint (Acute 02/12/24) Prediabetes (Acute) Chronic kidney disease due to hypertension (Acute) Psychoactive substance abuse (Acute) Medical History (Updated 02/12/24 @ 20:48 by Gianni Lay MD) Cyst of left ovary 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 Gastric ulcer GERD (gastroesophageal reflux disease) ADHD Nicotine dependence ARCHANA (generalized anxiety disorder) Mood disorder Congenital absence of one kidney Chronic neck pain Morbid obesity HTN (hypertension) Surgical History H/O bilateral breast reduction surgery H/O section History of hysterectomy Social History Smoking/Tobacco Use Status: Current every day Tobacco Type: cigarettes Smoking risk assessment performed?: Yes Alcohol Intake: never Drug use: Daily Substance use type: marijuana and prescription drug Do you feel safe at home: Yes Do you feel safe in your relationship?: Yes Results Last Vital Signs Temp 97.6 F 02/12/24 16:30 Pulse 66 02/12/24 20:27 Resp 16 02/12/24 20:30 BP 149/120 H 02/12/24 20:27 Pulse Ox 94 02/12/24 18:40 Procedures Orthopedic Joint Reduction Lt shoulder fx/dx: Time out performed: Yes Side: left Joint reduction location: shoulder Analgesia: procedural sedation and nerve block Shoulder technique used (if applicable): external rotation (Earnest) Post-reduction neuro exam: intact Post-reduction vascular exam: intact Post-reduction x-ray obtained: Yes Post-reduction x-ray results: reduced Splint applied: Yes (sling) Patient tolerated procedure: well and no complications Additional comments: Shoulder joint reduction requiring anesthesia, CPT #77645
[2024-02-12] MEDS: ACETAMINOPHEN 1,000 MG/100 ML BTL 400 MG IVPB (21:13)
[2024-02-12] MEDS: MORPHine 4 MG/ML SYR 3 MG IVP ×2 (21:13→23:15)
[2024-02-12] MEDS: QUEtiapine 100 MG TAB PO (21:15)
--- NOTE | 2024-02-12 21:39 | W.ED.GENAD ---
Discharge Plan Disposition Patient Disposition: Admit to [facility] Condition: Stable Discharge Details Clinical Impression: Anterior dislocation of left shoulder, Fracture dislocation of shoulder joint Primary Care Provider: Lena Spicer ED Provider: Shanelle Jacome Home Meds and New Rx's Prescriptions: No Action acetaminophen 325 mg tablet 650 mg PO Q6H PRN albuterol sulfate 90 mcg/actuation HFA aerosol inhaler 2 puff inhalation Q6H PRN lisinopril 10 mg tablet 10 mg PO DAILY loratadine-pseudoephedrine [Loratadine-D] 10-240 mg tablet extended release 24 hr 1 tab PO DAILY magnesium chloride [Mag 64] 64 mg tablet,delayed release (DR/EC) 64 mg PO DAILY pantoprazole 40 mg tablet,delayed release (DR/EC) 40 mg PO DAILY senna 8.6 mg capsule 8.6 mg PO BID cholecalciferol (vitamin D3) 25 mcg (1,000 unit) capsule 25 mcg PO DAILY cyclobenzaprine 10 MG tablet 10 mg PO HS quetiapine [Seroquel] 100 MG tablet 100 mg PO HS gabapentin 300 MG capsule 300 mg PO TID atenolol 50 MG tablet 50 mg PO DAILY methocarbamol 500 mg tablet 500 mg PO Q6H PRN (Reason: muscle spasm) Qty: 14 0RF Patient Comments: not longer taking HPI General Date/Time Provider Initiated Documentation: 02/12/24 16:40. Limitations to Documentation: physical limitation. Information obtained by: patient and family. HPI Narrative: 63-year-old female with past medical history of hypertension, cervical myelopathy, anxiety and mood disorder presents for evaluation of left shoulder pain. Reports just prior to arrival she tripped over her dog and hit her left shoulder against the chair railing. She did not hit her head and denies any loss of consciousness. She reports that she has severe pain in her upper left shoulder. Pain is worse with any movement. It is not associated with numbness or tingling. No medications were given prior to arrival. Related Data Home Medications ?Medication ?Instructions ?Recorded ?Confirmed atenolol 50 mg tablet 50 mg PO DAILY 11/20/13 02/12/24 cyclobenzaprine 10 mg tablet 10 mg PO HS 11/20/13 02/12/24 gabapentin 300 mg capsule 300 mg PO TID 11/20/13 02/12/24 quetiapine 100 mg tablet (Seroquel) 100 mg PO HS 11/20/13 02/12/24 methocarbamol 500 mg tablet 500 mg PO Q6H PRN muscle spasm #14 07/30/22 02/12/24 tabs acetaminophen 325 mg tablet 650 mg PO Q6H PRN 07/26/23 02/12/24 albuterol sulfate 90 mcg/actuation 2 puff inhalation Q6H PRN 07/26/23 02/12/24 aerosol inhaler cholecalciferol (vitamin D3) 25 25 mcg PO DAILY 07/26/23 02/12/24 mcg (1,000 unit) capsule lisinopril 10 mg tablet 10 mg PO DAILY 07/26/23 02/12/24 loratadine-pseudoephedrine ER 10 1 tab PO DAILY 07/26/23 02/12/24 mg-240 mg tablet,extended [id number] (Loratadine-D) magnesium chloride 64 mg 64 mg PO DAILY 07/26/23 02/12/24 (magnesium chloride) tablet,delayed release (Mag 64) pantoprazole 40 mg tablet,delayed 40 mg PO DAILY 07/26/23 02/12/24 release sennosides 8.6 mg capsule (senna) 8.6 mg PO BID 07/26/23 02/12/24 Previous Rx's ?Medication ?Instructions ?Recorded methocarbamol 500 mg tablet 500 mg PO Q6H PRN muscle spasm #14 07/30/22 tabs Allergies Allergy/AdvReac Type Severity Reaction Status Date / Time sertraline HCl (From Zoloft) Allergy Intermediate Nausea Verified 02/12/24 16:35 General Stated Complaint: Orthopedic MANJU: 3 Exam Narrative Exam Narrative: Review of Systems: All systems reviewed & are unremarkable except as noted in HPI and below Well-developed screaming and crying, NCAT PERRL, normal conjunctiva Edentulous RRR no murmur Unlabored respiratory effort, clear bilaterally Left upper extremity held against torso, refusing to movement, does have good cap refill and 2+ pulse, no deformity appreciated in wrist or elbow, and I am able to range these joints without any difficulty. No obvious deformity or palpable dislocation of the humeral head. Course Vital Signs Vital signs: Vital Signs Temperature 36.4 C 02/12/24 16:30 Pulse 74 02/12/24 16:30 Respiratory Rate 16 02/12/24 16:30 Blood Pressure 207/98 H 02/12/24 16:30 Pulse Oximetry 97 02/12/24 16:30 Temperature 36.4 C 02/12/24 16:30 Temperature Source Temporal Artery Scan 02/12/24 16:30 Pulse 74 02/12/24 21:16 Pulse 71 02/12/24 21:20 Respiratory Rate 25 H 02/12/24 21:20 Respiratory Effort Normal 02/12/24 16:33 Blood Pressure 129/110 H 02/12/24 21:16 Blood Pressure Mean 114 02/12/24 21:16 Blood Pressure Position Sitting 02/12/24 16:30 Pulse Oximetry 94 02/12/24 18:40 Respiratory End-tidal CO2 33 02/12/24 21:02 Oxygen Delivery Method Room Air 02/12/24 16:30 Oxygen Flow Rate 0 02/12/24 16:30 Pain Level 10 02/12/24 20:56 Procedures Procedural Sedation Indication: fracture/dislocation reduction ASA Class: II Time of Last PO Intake: 17:00 Preparation: special education science teacher applied, pulse oximeter, capnometry used, supplemental O2 applied, reversal agents at bedside, suction/airway equipment at bedside and IV secured Ketamine: IV Ketamine dose (mg): 40 IV Propofol dose (mg): 60 Patient Tolerated Procedure: well and no complications Medical Decision Making Emergent evaluation of left shoulder injury. Patient is extremely uncomfortable although no obvious deformity is appreciated on initial examination. Initial plan for pain control and imaging. X-ray imaging of the shoulder and humerus were obtained and reviewed. There does appear to be a fracture noted as well as inferior dislocation. I reevaluated the patient and I do not appreciate this dislocation on the physical exam. She is in a considerable amount of pain still, but despite this I am able to fully range her shoulder. I decided to give some dissociative dose of ketamine for pain control and reevaluation, again I am not appreciating a dislocation. Reimaging of the arm was obtained, and it still appears consistent with a dislocation. I decided to obtain a CT scan because of the limitations of patient positioning with the x-rays, in addition to the difficulty with the physical exam, I will obtain a CT scan to further evaluate. The CT scan of the shoulder was reviewed and radiology report does indicate persistent dislocation. Given these findings, I engaged and formal sedation for reduction. She was given ketamine and propofol and I tried multiple manipulation techniques. With external rotation and overhead raising of the arm I was able to appreciate a small clunk. Again both shoulders feel the same and them not appreciating the dislocation. Repeat imaging of the shoulder and indicates that the shoulder is still dislocated. Patient still complaining of pain. Discussed with orthopedic surgery who reviewed the imaging and my reduction techniques, he agrees to admit the patient to his service. Will we will keep the patient in the emergency department overnight as the operating room for the morning schedule is currently completely booked and it may not be an option to take the patient to the operating room for reduction under general anesthesia. 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 Patient understands this plan. Additional pain medications have been provided. 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
[2024-02-13] VITALS (72 sets, daily range): BP systolic 112–210; BP diastolic 57–110; PULSE 58–83; RESP 11–30; TEMP 37; TEMPC 37; O2SAT 93–94; BMI 32.8
--- NOTE | 2024-02-13 | DI.RAD_ITS ---
Exam(s) XR SHOULDER LT COMP POST REDUC EXAM: XR SHOULDER LT COMP POST REDUC INDICATION: post procedure reduction. COMPARISON: CR XR SHOULDER LT COMP POST REDUC from 02/13/2024 TECHNIQUE: 2D digital imaging was performed. One portable view. FINDINGS: No change in alignment anterior shoulder dislocation and fracture fragments at the humeral head. DATA REPOSITORY: RADIATION DOSE DELIVERED:
--- NOTE | 2024-02-13 | DI.RAD_ITS ---
Exam(s) XR SHOULDER LT 1V EXAM: XR SHOULDER LT 1V CLINICAL HISTORY: post block partial attempt. TECHNIQUE: 2D digital imaging was performed. Three views. COMPARISON: CR XR SHOULDER LT COMP POST REDUC from 02/13/2024 FINDINGS: BONES: Multiple fracture fragments are noted at the greater tuberosity. No visible glenoid fracture. JOINTS: The humeral head is now appropriately positioned with respect to the glenoid. SOFT TISSUE: Normal. IMPRESSION: Successful reduction of shoulder dislocation. Multiple fracture fragments noted at greater tuberosit y. DATA REPOSITORY: RADIATION DOSE DELIVERED:
[2024-02-13] MEDS: MORPHine 4 MG/ML SYR 3 MG IVP ×2 (01:15→03:17)
[2024-02-13] MEDS: ACETAMINOPHEN 1,000 MG/100 ML BTL 400 MG IVPB (03:16)
--- NOTE | 2024-02-13 06:34 | ANES.PREOP_ITS ---
General Info Date of Service Date Performed: 02/13/24 Height: 5 ft 5.5 in Weight: 90.718 kg Body Mass Index (BMI): 32.8 Meds Allergies and Home Medications Allergies Allergy/AdvReac Type Severity Reaction Status Date / Time sertraline HCl (From Zoloft) Allergy Intermediate Nausea Verified 02/12/24 16:35 Home Medication ?Medication ?Instructions ?Recorded atenolol 50 mg tablet 50 mg PO DAILY 11/20/13 cyclobenzaprine 10 mg tablet 10 mg PO HS 11/20/13 gabapentin 300 mg capsule 300 mg PO TID 11/20/13 quetiapine 100 mg tablet (Seroquel) 100 mg PO HS 11/20/13 methocarbamol 500 mg tablet 500 mg PO Q6H PRN muscle spasm #14 07/30/22 tabs acetaminophen 325 mg tablet 650 mg PO Q6H PRN 07/26/23 albuterol sulfate 90 mcg/actuation 2 puff inhalation Q6H PRN 07/26/23 aerosol inhaler cholecalciferol (vitamin D3) 25 25 mcg PO DAILY 07/26/23 mcg (1,000 unit) capsule lisinopril 10 mg tablet 10 mg PO DAILY 07/26/23 loratadine-pseudoephedrine ER 10 1 tab PO DAILY 07/26/23 mg-240 mg tablet,extended [id number] (Loratadine-D) magnesium chloride 64 mg 64 mg PO DAILY 07/26/23 (magnesium chloride) tablet,delayed release (Mag 64) pantoprazole 40 mg tablet,delayed 40 mg PO DAILY 07/26/23 release sennosides 8.6 mg capsule (senna) 8.6 mg PO BID 07/26/23 Current Visit Medications: Current Medications Generic Name Dose Route Start Last Admin Trade Name Freq PRN Reason Stop Dose Admin Sodium Chloride 1,000 mls @ 125 mls/hr 02/12/24 19:45 02/12/24 22:08 Saline 1000ml Bag IV Infused INFUSION YNES Infusion Acetaminophen 1,000 mg in 100 mls @ 400 mls/hr 02/12/24 21:00 02/13/24 03:48 Ofirmev IVPB Infused Q6H YNES Infusion IV Miscellaneous Supplies 1 each 02/12/24 18:15 Iv Access[facility]Emergency Dept IV DIRECTED YNES IV Miscellaneous Supplies 1 each 02/12/24 21:00 Iv Access-Emergency Dept IV DIRECTED [facility] Ketamine HCl 45 mg 02/12/24 19:45 Ketamine 500 Mg/10 Ml Vial 0.5 mg/kg (45 mg) IVP DIRECTED [facility] Morphine Sulfate 3 mg 02/12/24 20:53 02/13/24 03:17 Morphine 4 Mg/Ml Syr IVP 3 mg Q2H PRN PRN Administration Naloxone HCl 0.4 mg 02/12/24 20:53 Naloxone 0.4 Mg/Ml Vial IVP PRN PRN Propofol 90 mg 02/12/24 19:45 02/12/24 20:19 Propofol 200 Mg/20 Ml Vial 1 mg/kg (90 mg) 60 mg IVP Administration DIRECTED YNES Sodium Chloride 0 ml 02/12/24 18:11 Normal Saline Flush 10 Ml Syr IVP PRN PRN Sodium Chloride 0 ml 02/12/24 20:00 02/12/24 20:19 Normal Saline Flush 10 Ml Syr IVP 10 ml BID YNES Administration Sodium Chloride 0 ml 02/12/24 18:11 Normal Saline 10 Ml Vial IJ DIRECTED PRN Sodium Chloride 0 ml 02/12/24 20:53 Normal Saline Flush 10 Ml Syr IVP PRN PRN Sodium Chloride 0 ml 02/13/24 08:30 Normal Saline Flush 10 Ml Syr IVP BID YNES Sodium Chloride 0 ml 02/12/24 20:53 Normal Saline 10 Ml Vial IJ DIRECTED PRN PFSH Active Problems Active Problems: Problem Status Onset Code Fracture dislocation of left shoulder joint Acute 02/12/24 S42.92XA Prediabetes Acute R73.03 Chronic kidney disease due to hypertension Acute I12.9 Psychoactive substance abuse Acute F19.10 Medical History Medical History (Updated 02/12/24 @ 20:48 by Gianni Lay MD) Cyst of left ovary 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 Gastric ulcer GERD (gastroesophageal reflux disease) ADHD Nicotine dependence ARCHANA (generalized anxiety disorder) Mood disorder Congenital absence of one kidney Chronic neck pain Morbid obesity HTN (hypertension) Surgical History Surgical History H/O bilateral breast reduction surgery H/O section History of hysterectomy Tobacco Smoking/Tobacco Use Status: Current every day Tobacco Type: cigarettes Alcohol Alcohol Intake: never Substance Use Substance use: Daily Substance use type: marijuana and prescription drug Vital Signs and Lab Results Vital Signs Most Recent Vital Signs in EMR: Most Recent Vital Signs Temp Pulse Resp BP Pulse Ox 37 C 70 18 145/79 H 94 02/13/24 05:59 02/13/24 06:02 02/13/24 06:20 02/13/24 06:02 02/12/24 18:40 Lab Results Blood Type / Crossmatch: No Data to Display Complete Blood Count: No Data to Display Complete Metabolic Panel: No Data to Display Liver Function Panel: No Data to Display Coagulation Panel: No Data to Display Cardiac Panel: No Data to Display Arterial Blood Gas: No Data to Display Venous Blood Gas: No Data to Display Pancreas Panel: No Data to Display Thyroid Panel: No Data to Display Infectious Disease: No Data to Display Blood Cultures: No Data to Display Toxicology Panel: No Data to Display Imaging and Studies Imaging and Studies Study information below may be from another EMR and interpreted by another provider. Please see original notes in EMR for more complete details. EKG Summary: 09/26: sinus. Anesthesia Assessment and Plan Anesthesia History Personal History: No History of Anesthesia Complications Family History: No Family History of Anesthesia Complications Exercise Tolerance Exercise Tolerance: Metabolic Equivalents>4 Cardiac & Pulmonary Exam Cardiac Exam: Normal S1/S2 Heart Sounds Pulmonary Exam: Clear Bilateral Breath Sounds Implantable Cardiac Device Does patient have a Pacemaker or an ICD?: No Airway Exam Known Difficult Airway: No Mallampati Class: 4 Mouth Opening: Narrow (< 3cm) Thyromental Distance: Less than 3 cm Neck Range of Motion: Full ROM Neck Circumference: Normal Teeth Condition: Edentulous ASA Classification ASA Score: ASA 2 Emergency Case?: No NPO Status NPO Status: NPO Clears >2 hours, Solids >8 hours Anesthesia Plan Resuscitation Status: Full Code Anesthesia Technique: General Anesthesia Airway Planned: Natural Airway Pain Management: Surgeon and patient request nerve block Monitors Used: Standard Monitors Preoperative Comments:: 63 yo female presented to the ER after a fall now with shoulder dislocation. reduction was attempted in the ER with prop and ketamine without success. Sig PMHx: HTN, asthma, GERD, ADHD, single kidney, mood disorder, anxiety, preDM. smoker, cannabis. Denies issues with anesthesia in the past. appropriately NPO, currently hungry. Discussed nerve block with GA as a back up as needed. Discussed risks of permanent nerve injury which she understands, and is willing to proceed.
--- NOTE | 2024-02-13 07:00 | DI.RAD_ITS ---
Exam(s) XR SHOULDER LT COMP POST REDUC EXAM: XR SHOULDER LT COMP POST REDUC INDICATION: Post red. COMPARISON: CR,XR XR SHOULDER LT COMP POST REDUC from 02/12/2024 TECHNIQUE: 2D digital imaging was performed. One view. Portable FINDINGS: No change in alignment of anterior shoulder dislocation and fracture fragments from the humeral head. No new abnormalities. DATA REPOSITORY: RADIATION DOSE DELIVERED:
--- NOTE | 2024-02-13 07:58 | W.ANESNERVE ---
Nerve Block Single Injection Procedure Date and Time Date Performed: 02/13/24 Procedure Start: 07:19 Location Where Procedure Performed Procedure Location: Emergency Department Reason Performed: Other (relocate shoulder) Requesting Provider: Gianni Lay Timeout Performed Timeout Performed: Yes Monitoring Used ECG, Blood Pressure, SpO2 and ETCO2 Sterility Sterility: Hand Hygiene, Surgical Cap, Surgical Mask, Sterile Gloves and Chlorhexidine Sedation Given During Procedure Sedation Given (Indicate Dose Given): No Sedation given Patient Mental Status Patient Mental Status: Awake Nerve Block 1st Nerve Block: Laterality: Left Block Type: Interscalene Ultrasound Image Saved?: Yes Needle / Catheter Used: 100mm SonoPlex II Local Anesthetic Bolus (Indicate Dose Given): Lidocaine used for local infiltration of skin and Chloroprocaine 3% Dose:: 20 mL Additives (Indicate Dose Given): None Ultrasound: Sterile probe cover and gel used Nerve Stimulator: Supplement to Ultrasound use and No twitch or parasthesia noted < 0.5 mA Paresthesia: None Procedure Tolerated: No Complications Procedure Outcome: Successful Performed By: Jona Dixon
--- NOTE | 2024-02-13 08:03 | W.PM.DS.N ---
Date of service: 02/13/24 Time of Service: 08:04 DS: Diagnosis Discharge Diagnosis (1) Fracture dislocation of left shoulder joint: Status: Acute Discharge Plan Disposition Patient Disposition: Home Condition: Stable Discharge Details Clinical Impression: Anterior dislocation of left shoulder, Fracture dislocation of shoulder joint Primary Care Provider: Lena Spicer ED Provider: Shanelle Jacome Home Meds and New Rx's Prescriptions: No Action acetaminophen 325 mg tablet 650 mg PO Q6H PRN albuterol sulfate 90 mcg/actuation HFA aerosol inhaler 2 puff inhalation Q6H PRN lisinopril 10 mg tablet 10 mg PO DAILY loratadine-pseudoephedrine [Loratadine-D] 10-240 mg tablet extended release 24 hr 1 tab PO DAILY magnesium chloride [Mag 64] 64 mg tablet,delayed release (DR/EC) 64 mg PO DAILY pantoprazole 40 mg tablet,delayed release (DR/EC) 40 mg PO DAILY senna 8.6 mg capsule 8.6 mg PO BID cholecalciferol (vitamin D3) 25 mcg (1,000 unit) capsule 25 mcg PO DAILY cyclobenzaprine 10 MG tablet 10 mg PO HS quetiapine [Seroquel] 100 MG tablet 100 mg PO HS gabapentin 300 MG capsule 300 mg PO TID atenolol 50 MG tablet 50 mg PO DAILY methocarbamol 500 mg tablet 500 mg PO Q6H PRN (Reason: muscle spasm) Qty: 14 0RF Patient Comments: not longer taking Discharge Instructions Additional Instructions: Surgery: Left shoulder fracture/dislocation, status post reduction of dislocation 02/13/2024 Activity: For 6 weeks, you should keep your arm at your side in a neutral to internally rotated position at all times except for physical therapy. Do not try to lift or raise your arm using your own muscles. You should use the sling whenever you are out of the house. At home it is best to remove the sling and rest the arm on a pillow at your side or support the operative side with your other hand. You may allow the arm to dangle at your side. A physical therapy prescription will be provided on follow up. Prescriptions: Resume home medications. Contact primary care provider for help with pain management. Recommend [id number] acetaminophen/Tylenol and/or NSAIDs for pain relief. Dressings: None Follow-up: ~[address] Lay. My office will call to make this appointment. Let us know right away if you develop any redness, drainage, fevers, chest pain, or trouble breathing. Do not drink alcohol or drive for at least 24 hours after anesthesia. Please call the office during business hours with any questions or concerns. DS: Summary Time Spent with Patient providing and/or coordinating discharge services: Less than 30 minutes Status at Discharge Functional status at discharge: independent ambulation Overall status at discharge: patient is progressing back to baseline Mental Status: mental status grossly normal Speech and Movement: speech and movement normal Mood: congruent mood Affect: normal affect Quality:SDOH Health Related Social Needs: No Data to Display Exam Narrative Exam Narrative: See consult note. Recovering without complication from procedure. Left upper extremity internally rotated cross body and sling. Shoulder joint appears reduced. Psych Mental Status: mental status grossly normal Speech and Movement: speech and movement normal Mood: congruent mood Affect: normal affect DS: Data Vitals/I&O Vitals and I&O: Vital Signs Temperature 98.6 F 02/13/24 05:59 Temperature Source Temporal Artery Scan 02/13/24 05:59 Pulse 71 02/13/24 07:31 Pulse 72 02/13/24 07:31 Respiratory Rate 24 02/13/24 07:31 Respiratory Effort Normal 02/12/24 16:33 Blood Pressure 117/69 02/13/24 07:31 Blood Pressure Mean 85 02/13/24 07:31 Blood Pressure Position Sitting 02/12/24 16:30 Pulse Oximetry 94 02/12/24 18:40 Respiratory End-tidal CO2 12 02/13/24 07:31 Oxygen Delivery Method Room Air 02/12/24 16:30 Oxygen Flow Rate 0 02/12/24 16:30 Pain Level 7 02/13/24 03:17 Intake & Output 02/12/24 02/12/24 02/13/24 11:59 23:59 11:59 Intake Total 1100 / 1100 100 / 100 Output Total 1500 / 1500 Balance 1100 / 1100 -1400 / -1400 Weight 200 lb 200 lb Intake: IV 1100 / 1100 100 / 100 Output: Urine 1500 / 1500 PFS All Active Problems Fracture dislocation of left shoulder joint (Acute 02/12/24) Prediabetes (Acute) Chronic kidney disease due to hypertension (Acute) Psychoactive substance abuse (Acute) Medical History Cyst of left ovary 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 Gastric ulcer GERD (gastroesophageal reflux disease) ADHD Nicotine dependence ARCHANA (generalized anxiety disorder) Mood disorder Congenital absence of one kidney Chronic neck pain Morbid obesity HTN (hypertension) Surgical History H/O bilateral breast reduction surgery H/O section History of hysterectomy Social History Smoking/Tobacco Use Status: Current every day Tobacco Type: cigarettes Smoking risk assessment performed?: Yes Alcohol Intake: never Drug use: Daily Substance use type: marijuana and prescription drug Do you feel safe at home: Yes Do you feel safe in your relationship?: Yes Time Spent with Patient Time Spent with Patient: <45 minutes Time was spent: preparing to see the patient(eg.review tests), obtaining and/or reviewing separately otained hiistory, ordering medications,tests, procedures, referring, communicating with other health intensive care anaesthetist and indepentently interpreting results
--- NOTE | 2024-02-13 08:07 | W.ANESPOSTOP ---
Postoperative Evaluation Date, Time and Location Date Performed: 02/13/24 Time Performed: 07:48 Patient Location: Emergency Department Vital Signs Most Recent Imported Vital Signs: Most Recent Vital Signs Temp Pulse Resp BP Pulse Ox 37 C 71 24 117/69 94 02/13/24 05:59 02/13/24 07:31 02/13/24 07:31 02/13/24 07:31 02/12/24 18:40 Most Recent Manually Entered Vital Signs: Adult Blood Pressure: 112/58 Heart Rate: 72 Respirations: 19 Oxygen Saturation (%): 94 Temperature (C): 37 C Pain Score (0-10 Scale): 0 Pain Score Most Recent Pain Score: Most Recent Pain Score Pain Level 7 02/13/24 03:17 Assessment Mental Status: Awake (Alert & Oriented to Patient Baseline) Airway and Respiratory Function: Patent airway with normal (patient baseline) respiratory exam Cardiovascular Function: Hemodynamically Stable Hydration Status: Adequately Hydrated Nausea & Vomiting: No Nausea or Vomiting Pain: Pt. Denies Any Pain Peripheral Nerve Block: Patient did not receive a nerve block
== END 2024-02-13 09:14 | disposition home or self-care (01) ==
PROVIDERS: Emergency Provider Emergency Medicine; PCP Nurse Practitioner Family
DX: S42.252A Displaced fracture of greater tuberosity of left humerus, initial encounter for closed fracture; I12.9 Hypertensive chronic kidney disease with stage 1 through stage 4 chronic kidney disease, or unspecified chronic kidney disease; N18.9 Chronic kidney disease, unspecified; F17.210 Nicotine dependence, cigarettes, uncomplicated; W18.09XA Striking against other object with subsequent fall, initial encounter; Y93.89 Activity, other specified
CPT/HCPCS: 23650; 23665; 73030; 76942; 96361; 96365; 96366; 96375; 96376; 99152; 99153; 99285; 73020; 73060; 73200; J0131; J2270; J2401; J2405; J2704

== ENCOUNTER 2024-02-21 15:34 | Outpatient (CLI) | payer BC, SELFPAY ==
--- NOTE | 2024-02-21 14:45 | DI.RAD_ITS ---
Exam(s) XR SHOULDER LT COMPLETE 2+V EXAM: XR SHOULDER LT COMPLETE 2+V INDICATION: F/U FRACTURE DISLOCATION. COMPARISON: CR XR SHOULDER LT 1V from 02/13/2024 TECHNIQUE: 2D digital imaging was performed. Two views. FINDINGS: No change in alignment of comminuted fracture at the greater tuberosity. There is some inferior subl uxation of the humeral head and widening of the glenohumeral joint which could indicate presence of j oint effusion. DATA REPOSITORY: RADIATION DOSE DELIVERED:
== END 2024-02-21 15:35 | disposition home or self-care (01) ==
LOC: DIORS 15:34
PROVIDERS: PCP Nurse Practitioner Family; Visit Provider Student in an Organized Health Care Education/Training Program
DX: S42.252D Displaced fracture of greater tuberosity of left humerus, subsequent encounter for fracture with routine healing (principal); X58.XXXD Exposure to other specified factors, subsequent encounter
CPT/HCPCS: 73030

== ENCOUNTER 2024-03-14 14:29 | Outpatient (CLI) | payer BC, SELFPAY ==
--- NOTE | 2024-03-14 11:15 | DI.RAD_ITS ---
Exam(s) XR SHOULDER LT COMPLETE 2+V EXAM: XR SHOULDER LT COMPLETE 2+V CLINICAL HISTORY: F/U FRACTURE. TECHNIQUE: 2D digital imaging was performed. COMPARISON: CR XR SHOULDER LT COMPLETE 2+V from 02/21/2024 FINDINGS: 3 views Again noted is the fracture greater tuberosity and adjacent soft tissue fracture fragments or pre-exi sting calcific rotator cuff tendinitis. Appearance of the humeral head and greater tuberosity is unc hanged. There is no further displacement of fracture fragments. Again noted is significant downward subluxation of the humeral head in the osseous glenoid which is probably related to hemarthrosis-addi nt effusion. Ipsilateral clavicle and AC joint appear unremarkable. Incidentally noted is multilevel fusion hardw are in the cervical spine. IMPRESSION: As above. Minimal if any significant radiographic change when compared to 02/21/2024. DATA REPOSITORY: RADIATION DOSE DELIVERED:
--- NOTE | 2024-03-14 13:45 | DI.RAD_ITS ---
Exam(s) XR ELBOW LT LIMITED EXAM: XR ELBOW LT LIMITED CLINICAL HISTORY: LEFT ELBOW PAIN. TECHNIQUE: 2D digital imaging was performed. Three views. COMPARISON: No exams were available for comparison FINDINGS: BONES: No acute fracture is present. No bony destructive lesion is seen. Cystic change at radial tu bercle which could be associated with tendinopathy. JOINTS: The elbow is normally aligned. No joint effusion is seen. SOFT TISSUE: Normal. IMPRESSION: Cystic changes at the radial tubercle which could be associated with tendinopathy. DATA REPOSITORY: RADIATION DOSE DELIVERED:
== END 2024-03-14 14:30 | disposition home or self-care (01) ==
LOC: DIORS 14:30
PROVIDERS: PCP Nurse Practitioner Family; Visit Provider Student in an Organized Health Care Education/Training Program
DX: S42.252D Displaced fracture of greater tuberosity of left humerus, subsequent encounter for fracture with routine healing (principal); X58.XXXD Exposure to other specified factors, subsequent encounter
CPT/HCPCS: 73030; 73070

== ENCOUNTER 2024-04-18 14:50 | Outpatient (CLI) | payer BC, SELFPAY ==
--- NOTE | 2024-04-18 14:00 | DI.RAD_ITS ---
Exam(s) XR SHOULDER LT COMPLETE 2+V EXAM: XR SHOULDER LT COMPLETE 2+V INDICATION: F/U FRACTURE. COMPARISON: CR XR SHOULDER LT COMPLETE 2+V from 03/14/2024 TECHNIQUE: 2D digital imaging was performed. Three views. FINDINGS: There has been some interval healing at the greater tuberosity fracture which remains nondisplaced. Improvement in degree of subluxation at the glenohumeral joint. No new abnormalities. DATA REPOSITORY: RADIATION DOSE DELIVERED:
== END 2024-04-18 14:51 | disposition home or self-care (01) ==
LOC: DIORS 14:51
PROVIDERS: PCP Nurse Practitioner Family; Visit Provider Student in an Organized Health Care Education/Training Program
DX: S42.255D Nondisplaced fracture of greater tuberosity of left humerus, subsequent encounter for fracture with routine healing (principal); X58.XXXD Exposure to other specified factors, subsequent encounter
CPT/HCPCS: 73030

== ENCOUNTER 2024-06-21 20:04 | Outpatient (REF) | payer BC, SELFPAY ==
[2024-06-21 19:16] LABS: Abs Immature Grans 0.01 10^3/uL (0.0-0.06); Absolute Basophil Count 0.02 10^3/uL (0.0-0.2); Absolute Eosinophil Count 0.15 10^3/uL (0.0-0.7); Absolute Monocyte Count 0.35 10^3/uL (0.1-0.8); Absolute Neutrophil Count 1.81 10^3/uL (1.2-6.7); Basophils % 0.4 %; Eosinophils % 3.3 %; HCT 36.1 % (36.0-46.0); HGB 12.1 g/dL (11.2-15.7); Immature Grans % 0.2 %; Lymphocytes % 48.5 %; MCH 32.1 pg (27.0-33.0); MCHC 33.5 % (32.0-36.0); MCV 96 fL (80-95); MPV 9.6 fL (8.0-11.0); Monocytes % 7.7 %; Neutrophils % 39.9 %; Platelet Count 217 10^3/uL (130-400); RBC 3.77 10^6/uL (3.93-5.22); RDW 12.1 % (11.7-14.6); RDW-SD 42.9 fL; WBC 4.54 10^3/uL (4.4-10.8)
[2024-06-21 19:46] LABS: Hemoglobin A1C 6.5 % (<5.7)
[2024-06-21 19:50] LABS: ALT 21 U/L (14-59); AST 17 U/L (15-37); Albumin 3.7 g/dL (3.4-5.0); Alkaline Phosphatase 106 U/L (46-116); Anion Gap 9.1 mmol/L (3-11); BUN 27 mg/dL (7-18); Bilirubin, Total 0.25 mg/dL (0.2-1.0); CO2 25.9 mmol/L (21.0-32.0); Calcium 9.4 mg/dL (8.5-10.1); Chloride 104 mmol/L (98-107); Glucose 112 mg/dL (74-106); Potassium 4.7 mmol/L (3.5-5.1); Sodium 139 mmol/L (136-145); Total Protein 7.3 g/dL (6.4-8.2)
--- OUTSIDE RECORDS SUMMARY | 2024-06-21 20:06 | XMS_ITS | Referral Summary ---
Author Organization [facility] Address [address] [place] [address] Care Team Providers Care Last Turner Name Role Phone Sailaja Ross FACILITATOR Primary Care Provider [phone] Social History Tobacco Use Types Packs/Day Years Used Date Smoking Tobacco: Never Assessed Comments Unknown Sex and Gender Information Value Date Recorded Sex Assigned at Not on file Legal Sex Female 18:34 EST Gender Identity Not on file Sexual Orientation Not on file Plan of Treatment Not on file Care Teams Last Turner Relationship Specialty Start Date End Date Sailaja Ross, FACILITATOR [facility] [address] [place] [id number] PCP - General 12/19/09
--- OUTSIDE RECORDS SUMMARY | 2024-06-21 20:06 | XMS_ITS | Clinical Summary ---
Author Organization [facility] Address [address] [place] [address] Care Team Providers Care Integrated Circuit Ic Layout Designer Name Role Phone Sailaja Ross INSULATION SUPERVISOR Primary Care Provider [phone] Social History Tobacco Use Types Packs/Day Years Used Date Smoking Tobacco: Never Assessed Comments Unknown Sex and Gender Information Value Date Recorded Sex Assigned at Not on file Legal Sex Female 18:34 EST Gender Identity Not on file Sexual Orientation Not on file Plan of Treatment Health Maintenance Due Date Last Done Comments Hepatitis C Screen 1960 COVID-19 Vaccine (2023-25 season) 2024 RSV Immunization ( o r 60+ Years) (1 - 1-dose 75+ series) 11/05/2035 Care Teams Integrated Circuit Ic Layout Designer Relationship Specialty Start Date End Date Sailaja Ross NP [facility] [address] [place] [address] PCP - General 12/19/09
--- OUTSIDE RECORDS SUMMARY | 2024-06-21 20:07 | XMS_ITS | Encounter Summary ---
Author Organization [facility] [place] [address] Care Team Providers Care Engine Cleaner Name Role Phone Lena Womack APRN Primary Care Provider [phone] Reason for Visit * Reason Onset Date Comments Appointment 03/15/2023 Encounter Details Date Type Department Care Team (Late st Contact Info) Description 03/15/2023 [place]phone [place] [phone] Tien Zurita MD [facility] [place] [address] Appointment Social History Tobacco Use Types Packs/Day Years Used Date Smoking Tobacco: Former Cigarettes 0.3 35 Smokeless Tobacco: Never Alcohol Use Standard Drinks/Week Comments Yes 0 (1 standard drink = 0.6 oz pur e alcohol) 1-2x a year [facility] Inpatient Questions Answer Date Recorded Does Anyone [...] month follow up appointments for Jun [address] Zurita Sent a [employer] message to pt with appt details. Katheryn Carranza - 03/14/23 Yudith, Tien Florentino MD Sent: TueMarch 14, 2023 2:17 PM To: [facility] Neurosurgery [place] Follow-up and Dispositions Return in about 3 months (around 06/14/2023) for In Person. Check-out Note: Follow-up in 3 months with repeat x-rays Routing History documented in this encounter Plan of Treatment Not on file documented as of this encounter Visit Diagnoses Not on filedocumented in this encounter Care Teams Engine Cleaner Relationship Specialty Start Date End Date Lena Womack APRN PCP - General Family Medicine 08/02/22 04/07/24 documented as of this encounter
--- OUTSIDE RECORDS SUMMARY | 2024-06-21 20:07 | XMS_ITS | Encounter Summary ---
Author Organization [facility] [place] [address] Care Team Providers Care Fish Dressing Machine Feeder Name Role Phone Lena Womack APRN Primary Care Provider [phone] Reason for Visit * Reason Onset Date Comments Appointment 08/11/2023 Encounter Details Date Type Department Care Team (Late st Contact Info) Description 08/11/2023 Telephone [place] [phone] Tien Zurita MD [facility] [address] Appointment Social History Tobacco Use Types Packs/Day Years Used Date Smoking Tobacco: Former Cigarettes 0.3 35 Smokeless Tobacco: Never Alcohol Use Standard Drinks/Week Comments Yes 0 (1 standard drink = 0.6 oz pur e alcohol) 1-2x a year [facility] Inpatient Questions Answer Date Recorded Does Anyone [...] TueAugust 08, 2023 3:52 PM To: P [facility] Neurosurgery [facility] [employer] Follow-up and Dispositions Check-out Note: MRI C spine - Can follow-up results via telephone Follow-up in 6 months with repeat x-rays documented in this encounter Plan of Treatment Not on file documented as of this encounter Visit Diagnoses Not on filedocumented in this encounter Care Teams Fish Dressing Machine Feeder Relationship Specialty Start Date End Date Lena Womack APRN PCP - General Family Medicine 08/02/22 04/07/24 documented as of this encounter
--- OUTSIDE RECORDS SUMMARY | 2024-06-21 20:07 | XMS_ITS | Encounter Summary ---
Author Organization [facility] Address [address] [place] [id number] Care Team Providers Care Blade Sharpener Name Role Phone Unavailable Primary Care Provider Unavailabl e Encounter Details Date Type Department Care Team (Late st Contact Info) Description 12/16/2009 Results Only [facility] Services - [facility] ([facility]) [address] [place] [address] Socorro Engel MD [address] [place], [place] [id number] Social History Tobacco Use Types Packs/Day Years [...] ANCA, KATHERYN L ? Accession #: ? [id number] ? : ? 1960 (Age: 49) ??F ? Collect Date: ? 12/16/2009 ? Location: ? [facility] ? Receive Date: ? 12/17/2009 ? Provider: SOCORRO BERRIAN MD ? Copy to: SANTI FITZGERALD ABORIGINAL LIAISON OFFICER ? Final Pathologic Diagnosis: ? Skin of [...] Gross Description: ? Received in formalin labelled Anca, Katheryn and L neck is a shave ? biopsy of a nieves-brown smooth firm nodule measuring 0.8 x 0.6 x 0.3 cm. ??The ? margin is inked black. ??The specimen is trisected and submitted entirely in one cassette. ??(Antonio Vang)/mms ? End of Report ? [facility] 12/16/2009 12/17/2009 16: 56 EDT us Socorro Engel MD PATHOLOGY ORDERABLES Final Resu lt [facility] [address] [place] [address] documented in this encounter Visit Diagnoses Not on filedocumented in this encounter
--- OUTSIDE RECORDS SUMMARY | 2024-06-21 20:07 | XMS_ITS | Encounter Summary ---
Author Organization [facility] Address [facility] [place] [address] Care Team Providers Care Drip Box Tender Name Role Phone Shanta Lena Villeda APRN Primary Care Provider [phone] Encounter Details Date Type Department Care Team (Late st Contact Info) Description 01/05/2023 8:40 PM EDT Ancillary Procedure Radiology Library at [facility] [place] [id number] Tien Zurita MD [facility] [address] Social History Tobacco Use Types Packs/Day Years [...] DX Spine (01/05/2023 8:37 PM EDT) Narrative JUANPABLO - 01/05/2023 8:37 PM EDT This exam is auto-finalizing. It's purpose is for storage only. Chauhan A Echt IMG FILM LIBRARY ORD ERABLES [place], [place] documented in this encounter Visit Diagnoses Not on filedocumented in this encounter Care Teams Drip Box Tender Relationship Specialty Start Date End Date Lena Womack APRN PCP - General Family Medicine 08/02/22 04/07/24 documented as of this encounter
--- OUTSIDE RECORDS SUMMARY | 2024-06-21 20:07 | XMS_ITS | Encounter Summary ---
Author Organization [facility] Address [facility] [place] [address] Care Team Providers Care Analytical Technician Name Role Phone Lena Womack APRN Primary Care Provider [phone] Encounter Details Date Type Department Care Team [...] on filedocumented in this encounter Care Teams Analytical Technician Relationship Specialty Start Date End Date Lena Womack APRN PCP - General Family Medicine 08/02/22 04/07/24 documented as of this encounter
--- OUTSIDE RECORDS SUMMARY | 2024-06-21 20:07 | XMS_ITS | Encounter Summary ---
Author Organization [facility] Address [facility] [place] [address] Care Team Providers Care Roller Varnisher Name Role Phone Lena Womack APRN Primary Care Provider [phone] Encounter Details Date Type Department Care Team (Latest Contact Info) Description 03/14/2023 1:00 PM EDT - 03/14/2023 11:59 PM EDT Hospital Encounter XRay at [address] [place] [address] Tien Zurita MD [facility] [place] [address] Cervical myelopathy Discharge Disposition: Home Social History Tobacco Use Types Packs/Day Years Used Date Smoking Tobacco: Former Cigarettes 0.3 35 Smokeless Tobacco: Never Alcohol Use Standard Drinks/Week Comments Yes 0 (1 standard drink = 0.6 oz pur e alcohol) 1-2x a year [facility] Inpatient Questions Answer Date Recorded Does [...] Sig Dispensed Refills Start Date End Date levalbuteroL (XOPENEX HFA) 45 mcg/actuation HFA Aerosol Inhaler .COMPLEX 11/20/2013 diazePAM (Valium) 5 mg tablet Take 1 tablet by mouth every 6 hours as needed (muscle spasms). 30 tablet 12/16/2022 acetaminophen (Tylenol) 325 mg tablet Take 3 tablets by mouth every 6 hours. 30 tablet 12/16/2022 senna-docusate (Pericolace) 8.6-50 mg Tablet Take 1-2 tablets by mouth 2 times daily as needed for Constipation. 30 tablet 12/16/2022 docusate sodium (Colace) 100 mg capsule Take 100 mg by mouth daily. b complex vitamins Tablet Take 1 tablet by mouth daily. cholecalciferol, Vitamin D3, 50 mcg (2,000 unit) Capsule Take 2,000 Units by mouth daily. Mag [address] tablet Take 64 mg by mouth every evening. 09/11/2022 sucralfate (Carafate) 1 gram tablet Take 1 g by mouth 4 times daily. 09/03/2022 loratadine (Claritin) 10 mg Tablet Take 10 mg by mouth daily. pantoprazole EC (Protonix) 40 mg Tablet, Delayed Release (E.C.) Take 1 tablet by mouth 2 times daily. 120 tablet 08/08/2022 lisinopriL (Zestril) 10 mg Tablet Take 1 tablet by mouth daily. 90 tablet 2 08/09/2022 amitriptyline (ELAVIL) 100 mg Tablet Take 100 mg by mouth nightly. gabapentin (NEURONTIN) 300 mg Capsule Take 600 mg by mouth 3 times daily. QUEtiapine (SEROquel) 100 mg tablet Take 100 mg by mouth nightly. multivitamin (THERAGRAN) tablet Take 1 tablet by mouth daily. atenolol (TENORMIN) 50 mg tablet Take 50 mg by mouth daily. oxyCODONE (Roxicodone) 10 mg tablet Take 1-3 tablets by mouth every 3 hours as needed for Pain (If your pain is 4-6 take 10mg; if 7-8 take 20mg; if 9-10 take 30mg). 30 tablet 12/16/2022 traMADoL (Ultram) 100 mg tablet Take 100 mg by mouth 2 times daily as needed. 11/27/2022 methocarbamoL (Robaxin) 500 mg tablet Take 1,000 mg by mouth 2 times daily. 11/27/2022 04/08/2024 documented as of this encounter Plan of [...] have questions please contact the health home care rn that requested your imaging first. ? Electronically signed by: Svetlana Wellington MD, [facility] ([phone]), at 03/14/2023 2:08 PM Narrative 03/14/2023 2:08 [...] who have questions please contactthe health home care rn that requested your imaging first. Electronically signed by: Svetlana Wellington MD, [facility]([phone]), at 03/14/2023 2:08 PM Chauhan A Echt IMG DX ORDERABLES documented in this encounter Visit Diagnoses Diagnosis Cervical myelopathy Cervical spondylosis with myelopathy documented in this encounter Care Teams Roller Varnisher Relationship Specialty Start Date End Date Lena Womack APRN PCP - General Family Medicine 08/02/22 04/07/24 documented as of this encounter
--- OUTSIDE RECORDS SUMMARY | 2024-06-21 20:07 | XMS_ITS | Encounter Summary ---
Author Organization [facility] Address [facility] [place] [address] Care Team Providers Care Welding Machine Operator Thermit Name Role Phone Lena Womack APRN Primary Care Provider [phone] Encounter Details Date Type Department Care Team [...] on filedocumented in this encounter Care Teams Welding Machine Operator Thermit Relationship Specialty Start Date End Date Lena Womack APRN PCP - General Family Medicine 08/02/22 04/07/24 documented as of this encounter
--- OUTSIDE RECORDS SUMMARY | 2024-06-21 20:07 | XMS_ITS | Encounter Summary ---
[place] [address] Care Team Providers Care Animal Geneticist Name Role Phone Shanta Lena Villeda APRN Primary Care Provider [phone] Encounter Details Date Type Department Care Team (Late st Contact Info) Description 12/16/2022 Telephone [place] [phone] Sudeep Womack MD [facility] [place] [address] Social History Tobacco Use Types Packs/Day Years Used Date Smoking Tobacco: Every Day Cigarettes 0.3 35 Smokeless Tobacco: Never Alcohol Use Standard Drinks/Week Comments Yes 0 (1 standard drink = 0.6 oz pur e alcohol) 1-2x a year [facility] Inpatient Questions Answer Date Recorded Does [...] will be on d/c paperwork Sent pt [facility] message Sudeep Womack MD P [facility] Neurosurgery Business Support Good morning, Mrs. Carranza has a follow [...] on filedocumented in this encounter Care Teams Animal Geneticist Relationship Specialty Start Date End Date Lena Womack APRN PCP - General Family Medicine 08/02/22 04/07/24 documented as of this encounter
--- OUTSIDE RECORDS SUMMARY | 2024-06-21 20:07 | XMS_ITS | Encounter Summary ---
Author Organization [facility] [place] [address] Care Team Providers Care Paver Name Role Phone Lena Womack APRN Primary Care Provider [phone] Encounter Details Date Type Department Care Team (Late st Contact Info) Description 11/14/2023 [place] [phone] Marquita Dumont, RN Social History Tobacco Use [...] asking patient to call the MRI Dept [phone]) to schedule imaging. documented in this encounter Plan of Treatment Not on file documented as of this encounter Visit Diagnoses Not on filedocumented in this encounter Care Teams Paver Relationship Specialty Start Date End Date Lena Womack APRN PCP - General Family Medicine 08/02/22 04/07/24 documented as of this encounter
--- OUTSIDE RECORDS SUMMARY | 2024-06-21 20:07 | XMS_ITS | Encounter Summary ---
Author Organization [facility] Address [address] [place] [address] Care Team Providers Care Nursing Home Assistant Name Role Phone Sailaja Ross NP Primary Care Provider [phone] Encounter Details Date Type Department Care Team (Late st Contact Info) Description 07/30/2022 Lab Requisition [facility] Pathology & Laboratory Medicine - [address] [address] Outr Resulting Lab, Provider Social History Tobacco [...] 125 Routine 07/29/2022 21:01 EST CA 19-9 Routine 07/29/2022 21:01 EST CEA Routine 07/29/2022 21:01 EST documented in this encounter Results * CEA (07/29/2022 21:01 EST) CEA 1.8 See Note ng/mL 08/02/2022 11:07 EST [facility] Comment: % Distribution of CEA [...] Unknown 07/29/2022 21:01 EST 07/30/2022 18:43 EST us Provider Outr Resulting Lab CHEMISTRY & BLOOD GA S ORDERABLES Final Result Performing Organization Address [facility] de Phone Number [facility] [address] [place] [address] * CA 19-9 (NEW SIEMENS METHOD IN USE 06/10/15) (07/29/2022 21:01 EST) CA 19-9 8 <35 U/mL 08/02/2022 9:24 EST [facility] Comment: NOTE: Serum CA 19-9 concentration should not be interpreted as absolute evidence for the presence or absence of malignant disease. Assayed on Siemens ADVIA Centaur XPT using chemiluminescent technology. ??Values obtained by using different assay methods cannot be used interchangeably. Blood VENOUS BLOOD / Unknown 07/29/2022 21:01 EST 07/30/2022 18:43 EST us Provider Outr Resulting Lab CHEMISTRY & BLOOD GA S ORDERABLES Final Result Performing Organization Address [facility] Co de Phone Number [facility] [address] [place] [address] * CA 125 (07/29/2022 21:01 EST) CA 125 23 <30 U/mL 08/02/2022 9:19 EST [facility] Comment: NOTE: Serum CA 125 concentration should not be interpreted as absolute evidence for the presence or absence of malignant disease. Assayed on Siemens ADVIA Centaur XPT using chemiluminescent technology. ??Values obtained by using different assay methods cannot be used interchangeably. Blood VENOUS BLOOD / Unknown 07/29/2022 21:01 EST 07/30/2022 18:43 EST us Provider Outr Resulting Lab CHEMISTRY & BLOOD GA S ORDERABLES Final Result [facility] [address] [place] [address] documented in this encounter Visit Diagnoses Not on filedocumented in this encounter Care Teams Nursing Home Assistant Relationship Specialty Start Date End Date Sailaja Ross NP [facility] [address] [place] [address] PCP - General 12/19/09 documented as of this encounter
--- OUTSIDE RECORDS SUMMARY | 2024-06-21 20:07 | XMS_ITS | Encounter Summary ---
Author Organization [facility] Address [facility] [place] [address] Care Team Providers Care Retention Representative Name Role Phone Lena Womack APRN Primary Care Provider [phone] Encounter Details Date Type Department Care Team [...] on filedocumented in this encounter Care Teams Retention Representative Relationship Specialty Start Date End Date Lena Womack APRN PCP - General Family Medicine 08/02/22 04/07/24 documented as of this encounter
--- OUTSIDE RECORDS SUMMARY | 2024-06-21 20:07 | XMS_ITS | Encounter Summary ---
Author Organization [facility] Address [facility] [place] [address] Care Team Providers Care Stone Carriage Operator Name Role Phone Shanta Lena Villeda APRN Primary Care Provider [phone] Encounter Details Date Type Department Care Team (Late st Contact Info) Description 03/14/2023 2:00 PM EDT Office Visit [facility] [place] [phone] Tien Zurita MD [facility] [place] [address] Cervical myelopathy Social History Tobacco Use Types Packs/Day Years Used Date Smoking Tobacco: Former Cigarettes 0.3 35 Smokeless Tobacco: Never Alcohol Use Standard Drinks/Week Comments Yes 0 (1 standard drink = 0.6 oz pur e alcohol) 1-2x a year [facility] Inpatient Questions Answer Date Recorded [...] Zurita MD - 03/14/2023 2:00 PM EDT [facility] Neurosurgery Clinic Progress Note CC: 3-month [...] and charting the visit. Tien Zurita MD Delivery Person Section of Neurosurgery Department of Surgery [facility] documented in this encounter Plan of Treatment Not on file documented as of this encounter Visit Diagnoses Diagnosis Cervical myelopathy Cervical spondylosis with myelopathy documented in this encounter Care Teams Stone Carriage Operator Relationship Specialty Start Date End Date Lena Womack, JACKIE PCP - General Family Medicine 08/02/22 04/07/24 documented as of this encounter
--- OUTSIDE RECORDS SUMMARY | 2024-06-21 20:07 | XMS_ITS | Encounter Summary ---
[place] [address] Care Team Providers Care Stars Analytical Lead Name Role Phone Lena Womack APRN Primary Care Provider [phone] Reason for Referral * Diagnostic Test (Routine) - Closed Specialty Diagnoses / Procedures Referred By Contac t Referred To Contact Radiology Diagnoses Cervical myelopathy Procedures MRI Cervical Spine wo Contrast (Generic) Tien Zurita MD [facility] [place] [address] [place] [address] Referral ID Status Reason Start Date Expiration Date V isits Requested Visits Authorized [id number] Closed Specialty Service Requested 12/28/2023 02/25/2024 1 1 Reason for Visit * Diagnostic Test (Routine) - Closed Specialty Diagnoses / Procedures Referred By Contac t Referred To Contact Radiology Diagnoses Cervical myelopathy Procedures MRI Cervical Spine wo Contrast (Generic) Tien Zurita MD [facility] [place] [address] [place] [address] Referral ID Status Reason Start Date Expiration Date V isits Requested Visits Authorized [id number] Closed Specialty Service Requested 12/28/2023 02/25/2024 1 1 Encounter Details Date Type Department Care Team (Latest Contact Info) Description 12/28/2023 10:10 AM EDT - 12/28/2023 10:14 AM EDT Hospital Encounter MRI [facility] [place] [address] Tien Zurita MD [facility] [place] [address] Cervical myelopathy Discharge Disposition: Home Social History Tobacco Use Types Packs/Day Years Used Date Smoking Tobacco: Former Cigarettes 0.3 35 Smokeless Tobacco: Never Alcohol Use Standard Drinks/Week Comments Yes 0 (1 standard drink = 0.6 oz pur e alcohol) 1-2x a year COUNT [facility]CLUDES [facility] Inpatient Questions Answer Date Recorded Does [...] Leonard RN - 12/28/2023 8:39 AM EDT [facility] Department of Radiology MRI Nursing Katheryn Carranza 1960 [id number] December 28, 2023 You have received oral [...] or concerns: During regular office hours call: [phone]. If it is afterregular office hours, weekends or holidays, please call [phone] and ask to speak to the Backside Grinder production operations inspector for Interventional Radiology. Updated 10/23/21 documented in this encounter Medications at Time of Discharge Medication Sig Dispensed Refills Start Date End Date albuteroL 90 mcg/actuation HFA Aerosol Inhaler INHALE TWO PUFFS BY MOUTH EVERY 4 TO 6 HOURS NEEDED 06/03/2023 levalbuteroL (XOPENEX HFA) 45 mcg/actuation HFA Aerosol [...] mouth 2 times daily as needed. 11/27/2022 cyclobenzaprine (Flexeril) 10 mg tablet Take 1 tablet by mouth Three Times Daily for DHE. 07/26/2023 04/08/2024 methocarbamoL (Robaxin) 500 mg tablet Take 1,000 mg by mouth 2 times daily. 11/27/2022 04/08/2024 documented as of this encounter Progress Notes * Ava Mathis RN - 12/28/2023 8:59 AM EDT MRI PRE-SEDATION ASSESSMENT NOTE NAME: Katheryn Carranza AGE: 63 y.o. : 1960 [address] [facility] [address] Female [phone] (home) Telephone Information: Lena Womack, JACKIE No primary care provider on file. Allergies Allergen Reactions Allergenic Extracts Pollen Tramadol Low potassium Zoloft [Sertraline] Nausea And Vomiting Date/Time of call: December 26, 2023/8:59 AM/ SCHEDULED SCAN: MRI CERVICAL SPINE WO CONTRAST [[id number]] Have you had a PREVIOUS MRI SCAN? Yes Are you claustrophobic or anxious in the scanner? Yes CAN YOU LAY FLAT? Yes Do you have trouble breathing when lying flat? No DO YOU HAVE ANY INVOLUNTARY MOVEMENTS? No DO YOU TAKE PAIN MEDICATION ON A DAILY BASIS? No PLAN: Ativan You must have a trolley coach driver present when you check in. This patient has been informed that they require a trolley coach driver to drive them home after this procedure. In the absence of a trolley coach driver, IR will not be able tosedate for your scan. Pt verbalized understanding of these instructions during the pre-procedure education via phone. Yes Name of trolley coach driver: Phone number: PRIOR SCAN DATE/S SEDATION [...] wo Contrast (Generic) (12/28/2023 11:43 AM EDT) [employer] Signature WORKSTATION ID [id number] RAD Anatomical Region Laterality Modality C-spine Magnetic [...] who have questions please contact the health health care manager that requested your imaging first. [...] patients who have questions please contactthe health health care manager that requested your imaging first. Electronically signed by: Angel Rodriguez [facility]([phone]), at 12/29/2023 11:33 AM Chauhan A Echt [...] doses, Starting on Tue12/28/23 at 0803, Until Teresa 12/29/23 at 0434, Anxiety, Minimal Sedation per Department of Radiology Adult Minimal Sedation Guidelines: Give 50 minutes prior to scan., Angio/IR (Day of Procedure), Routine Given 12/28/2023 10:29 AM EDT 1 mg documented in this encounter Care Teams Stars Analytical Lead Relationship Specialty Start Date End Date Lena Womack, JACKIE PCP - General Family Medicine 08/02/22 04/07/24 documented as of this encounter
--- OUTSIDE RECORDS SUMMARY | 2024-06-21 20:07 | XMS_ITS | Clinical Summary ---
Author Organization [facility] Address [facility] [place] [address] Care Team Providers Care Senior Business Development Manager Name Role Phone None Primary Care Provider Unavailabl e Allergies Active Allergy Reactions Criticality Noted Date [...] Take 10 mg by mouth daily. Active traMADoL (Ultram) 100 mg tablet Take [...] 9-10 take 30mg). 30 tablet 12/16/2022 Active Additional Information Patient not taking.Reported on 05/02/2024 senna-docusate (Pericolace) 8.6-50 mg Tablet Take 1-2 tablets by mouth 2 times daily as needed for Constipation. 30 tablet 12/16/2022 Active levalbuteroL (XOPENEX HFA) 45 mcg/actuation HFA Aerosol Inhaler .COMPLEX 11/20/2013 Active albuteroL 90 mcg/actuation HFA Aerosol Inhaler INHALE TWO PUFFS BY MOUTH EVERY 4 TO 6 HOURS NEEDED 06/03/2023 Active methocarbamoL (Robaxin) 750 mg tablet Take 1 tablet by mouth 3 times daily as needed. 20 tablet 04/08/2024 Active Additional Information Patient not taking.Reported on 05/02/2024 ibuprofen (Advil) 600 mg tablet Take 1 tablet by mouth every 8 hours as needed for Pain. 30 tablet 1 04/08/2024 Active cyclobenzaprine (Flexeril) 10 mg tablet Take 10 mg by mouth 3 times daily as needed. 04/10/2024 Active omeprazole (PriLOSEC) [address] capsule Take 1 capsule by mouth Daily at Noon. 02/06/2024 Active methocarbamoL (Robaxin) 500 mg tablet Take 2 tablets by mouth 2 times daily. 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 Moderate opioid use disorder 08/03/2022 Thoracic compression fracture, sequela 3 Herniation of lumbar intervertebral disc with ra [...] Encounters Date Type Department Care Team Description 05/02/2024 3:00 PM EST [place] [address] Tien Zurita MD Stenosis of cervical spine with myelopathy 05/02/2024 2:00 PM EST - 05/02/2024 11:59 PM EST Hospital Encounter XRay at [address] [place] [id number] Tien Zurita MD Cervical myelopathy Discharge Disposition: Home 05/02/2024 Travel 04/08/2024 1:32 PM EST - 04/08/2024 5:52 PM EST [place] [address] Neck pain; Radiating pain; Muscle spasm Discharge Disposition: Home 04/08/2024 Travel from Last 3 Months Family History Medical [...] Sign Reading Time Taken Comments Blood Pressure 142/77 05/02/2024 2:31 PM EST Pulse 67 05/02/2024 2:31 PM EST Temperature 35.8 ??C (96.5 ??F) 05/02/2024 2:31 PM ES T Respiratory Rate 16 05/02/2024 2:31 PM EST Oxygen Saturation 98% 05/02/2024 2:31 PM EST Inhaled Oxygen Concentration - - Weight 87.1 kg (192 lb) 05/02/2024 2:31 PM EST Height 166.4 cm (5' 5.5) 05/02/2024 2:31 PM EST Body Mass Index 31.46 05/02/2024 2:31 PM EST Plan of Treatment Health Maintenance Due Date Last Done Comments CT Colonography 1960 Colonoscopy 1960 Colorectal Cancer Screening 1960 FIT DNA 1960 FIT 1960 Sigmoidoscopy (10 year) with FIT yearly 1960 Sigmoidoscopy 1960 HIV screen 1978 Hepatitis C Screening 1978 Lipid Screening 1978 Pneumoccocal Vaccine: 50+ (1 of 2 - PCV) 11/05/1979 Tetanus/Diphtheria/Pertussis Vaccines (1 - Tdap) 11/05/1979 HPV test 1990 PAP Smear 1990 Breast Cancer Share Decision Needed 2000 Zoster vaccine (1 of 2) 2010 Breast Cancer screening 11/17/2017 11/18/2015, 08/13 Covid-19 Vaccine ( - 2023-2 5 season) 2024 Influenza (Flu) vaccine (1 o f 1 - Influenza standard series) 02/05/2024 Diabetes Screening (HgbA1C o r Glucose) 04/08/2027 04/08/2024, 12/04/2022, 12/03/2022, Additional history exists Medical Devices Implanted Type Area Sewer Head Device Identifier Shelf Expiration Date Model / Serial / Lot Screw Spinal 5.5x25mm Posterior Cervical Mltaxl Sld Ti ([id number]) (Autoreq) - [id number] Implanted:Qty: 1 on 12/02/2022 by Tien Zurita MD at [facility] IMPLANTS N/A: Spine Cervical [employer] 08/05/2030 [id number] / / [id number] Arturo Spinal [id number] Posterior Cervical Prebent Pre Cut Cocr ([id number]) ([employer]oreq) - [id number] Implanted:Qty: 1 on 12/02/2022 by Tien Zuirta MD at [facility] IMPLANTS N/A: Spine Cervical [employer] 07/13/2030 [id number] / / [id number] Arturo Spinal [id number] Posterior Cervical Prebent Pre Cut Cocr ([id number]) ([employer]oreq) - [id number] Implanted:Qty: 1 on 12/02/2022 by Tien Zurita MD at [facility] IMPLANTS N/A: Spine Cervical [employer] 07/13/2030 [id number] / / [id number] Screw Spinal Set Posterior Cervical Mltaxl Sld Pt Infinity ([id number]) ([employer]q) - [id number] Implanted:Qty: 10 on 12/02/2022 by Tien Zurita MD at [facility] IMPLANTS N/A: Spine Cervical [employer] [id number] / / Screw Spinal 5.5x25mm Posterior Cervical Mltaxl Sld Ti ([id number]) ([employer]q) - [id number] Implanted:Qty: 1 on 12/02/2022 by Tien Zurita MD at [facility] IMPLANTS N/A: Spine Cervical [employer] 08/05/2030 [id number] / / [id number] Screw Spinal 5.5x25mm Posterior Cervical Mltaxl Sld Ti ([id number]) ([employer]oreq) - [id number] Implanted:Qty: 1 on 12/02/2022 by Tien Zurita MD at [facility] IMPLANTS N/A: Spine Cervical [employer] 06/15/2026 [id number] / / [id number] Screw Spinal 5.5x25mm Posterior Cervical Mltaxl Sld Ti ([id number]) ([employer]q) - [id number] Implanted:Qty: 1 on 12/02/2022 by Tien Zurita MD at [facility] IMPLANTS N/A: Spine Cervical [employer] 03/19/2030 [id number] / / [id number] Connector Spinal 10mm Lat [place]ipito Cervical Opn Ti ([id number]) ([employer]q) - [id number] Implanted:Qty: 1 on 12/02/2022 by Tien Zurita MD at [facility] IMPLANTS N/A: Spine Cervical [employer] [id number] / / Screw Spinal 3.5x14mm Posterior Cervical Mltaxl Sld Ti ([id number]) ([employer]q) - [id number] Implanted:Qty: 6 on 12/02/2022 by Tien Zurita MD at [facility] IMPLANTS N/A: Spine Cervical [employer] [id number] / / Graft Bone Filler 6cc Dbf Injectable [place] ([id number]) ([employer]q) - [id number] Implanted:Qty: 1 on 12/02/2022 at [facility] IMPLANTS Midline: Spine Cervical [employer] 10/18/2024 [id number] / [id number] / Procedures Procedure Name Priority Date/Time Associated Diagnosis Comments XR CERVICAL SPINE 4 OR 5 VIEWS Routine 05/02/2024 2:19 PM EST Cervical myelopathy XR CERVICAL SPINE 2 OR 3 VIEWS STAT 04/08/2024 4:[address] THORACIC SPINE WO CONTRAST STAT 04/08/2024 4:[address] HEAD AND CERVICAL SPINE WO CONTRAST STAT 04/08/2024 4:06 PM EST SEDIMENTATION RATE STAT 04/08/2024 3: 23 PM EST CBC (WITH DIFF) STAT 04/08/2024 3:23 PM EST CRP, ACUTE INFLAMMATION STAT 04/08/2024 3:22 PM EST BASIC METABOLIC PANEL STAT 04/08/2024 3:22 PM EST MAMMO SCREENING CAD AND ALEX BILATERAL Routine 11/18/2015 12:58 PM EDT Visit for screening mammogram from Last 3 Months or Most Recently Relevant to Health Maintenance Results * XR Cervical Spine 4 or 5 Views (05/02/2024 2:19 PM EST) WORKSTATION ID [id number] RAD Anatomical Region Laterality Modality L-spine N/A Digital Radiogra phy Impressions 05/02/2024 4:21 PM EST 1. ??Status post posterior decompression and fusion from C4 through T2. ??No radiographic evidence of hardware complication. 2. ??No spondylolisthesis or dynamic instability. Thank you for letting us participate in the care of this patient. ??If you are a health care provider and have any questions regarding this report, please contact the number below. ??For patients who have questions please contact the health patient care nursing assistant that requested your imaging first. ? Electronically signed by: Rosaura Ocampo MD, [facility] ([phone]), at 05/02/2024 4:21 PM Narrative 05/02/2024 4:21 PM EST EXAMINATION: XR CERVICAL SPINE 4 OR 5 VIEWS CLINICAL HISTORY: ??Upright AP, Lateral, Flexion, and Extension ??Assess Cervical Alignment and Instability (as entered by ordering provider in the order requisition) TECHNIQUE: AP, lateral neutral, lateral extension, lateral flexion, flexion swimmer's, and extension swimmer's views of the cervical spine. COMPARISON: Cervical spine radiograph April 08, 2024. FINDINGS: On the lateral view, spinal levels are seen down to C6. There are postoperative changes of posterior decompression and fusion from C4 through T2.. ??Hardware is intact and similar position. ??Evaluation for lucencies around the screws is limited due to overlapping bony and soft tissue structures on multiple views. The anterior atlantodental interval is normal in flexion and extension.. No listhesis or abnormal motion in flexion and extension. No focal vertebral body height loss. ?? No prevertebral soft tissue swelling. Disc spaces are relatively well-preserved, but there is marginal osteophyte formation. ??There is facet arthropathy at multiple levels of the upper cervical spine. Procedure Note Rosaura Ocampo MD - 05/02/2024 EXAMINATION: XR CERVICAL SPINE 4 OR 5 VIEWS CLINICAL HISTORY: Upright AP, Lateral, Flexion, and ExtensionAssess Cervical Alignment and Instability (as entered by ordering provider inthe order requisition) TECHNIQUE: AP, lateral neutral, lateral extension, lateral flexion,flexion swimmer's, and extension swimmer's views of the cervical spine. COMPARISON: Cervical spine radiograph April 08, 2024. FINDINGS: On the lateral view, spinal levels are seen down to C6. There are postoperative changes of posterior decompression and fusion fromC4 through T2.. Hardware is intact and similar position. Evaluation forlucencies around the screws is limited due to overlapping bony and soft tissuestructures on multiple views. The anterior atlantodental interval is normal in flexion and extension.. No listhesis or abnormal motion in flexion and extension. No focal vertebral body height loss. No prevertebral soft tissue swelling. Disc spaces are relatively well-preserved, but there is marginalosteophyte formation. There is facet arthropathy at multiple levels of the uppercervical spine. IMPRESSION 1. Status post posterior decompression and fusion from C4 through T2.No radiographic evidence of hardware complication. 2. No spondylolisthesis or dynamic instability. Thank you for letting us participate in the care of this patient. If youare a health care provider and have any questions regarding this report,please contact the number below. For patients who have questions please contactthe health patient care nursing assistant that requested your imaging first. Chauhan Mishel Zurita MD IMG DX ORDERABLES * XR Cervical Spine 2 or 3 Views (04/08/2024 4:58 PM EST) WORKSTATION ID [id number] RAD Anatomical Region Laterality Modality C-spine N/A Digital Radiogra phy Impressions 04/08/2024 5:06 PM EST 1. ??Stable appearance of status post posterior spinal fixation at the cervicothoracic junction. 2. ??Straightening of the cervical lordosis which may be related to patient positioning and/or muscle spasm. 3. ??No acute osseous abnormality. Thank you for letting us participate in the care of this patient. ??If you are a health care provider and have any questions regarding this report, please contact the number below. ??For patients who have questions please contact the health patient care nursing assistant that requested your imaging first. ? Narrative 04/08/2024 5:06 PM EST EXAMINATION: XR CERVICAL SPINE 2 OR 3 VIEWS CLINICAL HISTORY: fall, h/o fusion; request AP, lateral, and swimmer's view to further eval TECHNIQUE: 3 views of the cervical spine COMPARISON: Comparison is made to multiple prior cervical spine radiograph examinations, the most recent which is dated August 08, 2023. ??Correlation is made to MRI of the cervical spine dated December 28, 2023. FINDINGS: The cervical spine is visualized from C1 through the C7-T1 intervertebral disc. There is stable posterior fixation hardware extending from T2 to C4. ??There is no periprosthetic lucency. ??The surgical hardware is intact. ??There is fusion of the facet joints. There is straightening of the cervical lordosis. ??There is no significant cervical scoliosis. ??Alignment within the cervical spine is preserved. There is no prevertebral soft tissue swelling. The vertebral bodies demonstrate bridging osteophytes. ??Vertebral body heights are preserved. A dedicated open-mouth odontoid radiograph was not performed. ??Where visualized the dens is intact. Bilateral oblique radiographs are not performed. The visualized lung apices are clear. Procedure Note Angel Baker, - 04/08/2024 EXAMINATION: XR CERVICAL SPINE 2 OR 3 VIEWS CLINICAL HISTORY: fall, h/o fusion; request AP, lateral, and swimmer'sview to further eval TECHNIQUE: 3 views of the cervical spine COMPARISON: Comparison is made to multiple prior cervical spineradiograph examinations, the most recent which is dated August 08, 2023. Correlationis made to MRI of the cervical spine dated December 28, 2023. FINDINGS: The cervical spine is visualized from C1 through the C7-T1 intervertebraldisc. There is stable posterior fixation hardware extending from T2 to C4.There is no periprosthetic lucency. The surgical hardware is intact. There isfusion of the facet joints. There is straightening of the cervical lordosis. There is nosignificant cervical scoliosis. Alignment within the cervical spine is preserved. There is no prevertebral soft tissue swelling. The vertebral bodies demonstrate bridging osteophytes. Vertebral bodyheights are preserved. A dedicated open-mouth odontoid radiograph was not performed. Wherevisualized the dens is intact. Bilateral oblique radiographs are not performed. The visualized lung apices are clear. IMPRESSION 1. Stable appearance of status post posterior spinal fixation at the cervicothoracic junction. 2. Straightening of the cervical lordosis which may be related topatient positioning and/or muscle spasm. 3. No acute osseous abnormality. Thank you for letting us participate in the care of this patient. If youare a health care provider and have any questions regarding this report,please contact the number below. For patients who have questions please contactthe health patient care nursing assistant that requested your imaging first. Khris Powers APRN IMG DX ORDERABLES * CT Head & Cervical Spine wo Contrast (Generic) (04/08/2024 4:06 PM EST) [employer] WORKSTATION ID [id number] RAD Anatomical Region Laterality Modality Head Computed Tomogra phy Impressions 04/08/2024 4:31 PM EST 1. ??No acute intracranial findings. 2. ??No acute fracture or traumatic malalignment of the cervical spine. 3. ??Unchanged chronic T12 wedge compression fracture and mild associated canal stenosis. 4. ??No acute fracture or traumatic malalignment of the thoracic spine. Thank you for letting us participate in the care of this patient. ??If you are a health care provider and have any questions regarding this report, please contact the number below. ??For patients who have questions please contact the health patient care nursing assistant that requested your imaging first. ? Electronically signed by: Violet Beckwith MD, [facility] ([phone]), at 04/08/2024 4:31 PM Narrative 04/08/2024 4:31 PM EST EXAMINATION: CT HEAD AND CERVICAL SPINE WO CONTRAST (GENERIC), CT THORACIC SPINE WO CONTRAST (GENERIC) CLINICAL HISTORY: Fall about a week ago with face strike now with increased neck pain and some radiating symptoms, history of surgery on the thoracic and lumbar spine (C4-T2 PSIF, C5-7 Lami and remote C6-7 surgery); evaluate acute process TECHNIQUE: CT head and cervical spine performed without intravenous contrast administration. COMPARISON: CT head and cervical and thoracic spine 11/30/2022. MRI cervical spine 12/28/2023. MRI thoracic and lumbar spine 12/01/2022 FINDINGS: Head: There is no acute intracranial hemorrhage, midline shift, mass effect, hydrocephalus or extra-axial collection. No loss of nieves-white differentiation or cerebral edema. Foramen magnum and basilar cisterns are patent. No scalp hematoma. Normal orbits. No fracture. Midline nasal septal defect. Small left posterior ethmoid mucous retention cyst. Otherwise clear paranasal sinuses, mastoid air cells and middle ear cavities. Cervical spine: Posterior decompression from C4-5 through C7-T1, with instrumented fusion posteriorly from C4 to T2. Intact hardware without surrounding lucency. Normal alignment at craniocervical junction. Vertebral body height and alignment are preserved. No fracture. Mild canal narrowing due to calcified disc/osteophyte at C3-4. Multilevel facet arthropathy. Prevertebral fat planes are preserved. Multiple right-sided thyroid nodules measuring up to 8 mm requiring no further workup by ACR criteria. Thoracic spine: Posterior cervicothoracic fusion hardware extending to T1 and T2 as above, with intact hardware no surrounding lucency. T12 wedge compression fracture deformity with approximately 50% anterior height loss, height 5% posterior height loss and retropulsed superior endplate causing mild canal stenosis is not significantly changed since prior MRI. Otherwise no significant stenosis of the osseous spinal canal. Vertebral body height and alignment are otherwise preserved. No acute fracture. Procedure Note Violet Beckwith MD - 04/08/2024 EXAMINATION: CT HEAD AND CERVICAL SPINE WO CONTRAST (GENERIC), CT THORACICSPINE WO CONTRAST (GENERIC) CLINICAL HISTORY: Fall about a week ago with face strike now withincreased neck pain and some radiating symptoms, history of surgery on the thoracic andlumbar spine (C4-T2 PSIF, C5-7 Lami and remote C6-7 surgery); evaluate acuteprocess TECHNIQUE: CT head and cervical spine performed without intravenous contrast administration. COMPARISON: CT head and cervical and thoracic spine 11/30/2022. MRI cervical spine12/28/2023. MRI thoracic and lumbar spine 12/01/2022 FINDINGS: Head: There is no acute intracranial hemorrhage, midline shift, mass effect, hydrocephalus or extra-axial collection. No loss of nieves-white differentiation or cerebral edema. Foramen magnumand basilar cisterns are patent. No scalp hematoma. Normal orbits. No fracture. Midline nasal septal defect. Small left posterior ethmoid mucous retentioncyst. Otherwise clear paranasal sinuses, mastoid air cells and middle earcavities. Cervical spine: Posterior decompression from C4-5 through C7-T1, with instrumentedfusion posteriorly from C4 to T2. Intact hardware without surrounding lucency. Normal alignment at craniocervical junction. Vertebral body height andalignment are preserved. No fracture. Mild canal narrowing due to calcified disc/osteophyte at C3-4. Multilevelfacet arthropathy. Prevertebral fat planes are preserved. Multiple right-sided thyroidnodules measuring up to 8 mm requiring no further workup by ACR criteria. Thoracic spine: Posterior cervicothoracic fusion hardware extending to T1 and T2 as above,with intact hardware no surrounding lucency. T12 wedge compression fracture deformity with approximately 50% anteriorheight loss, height 5% posterior height loss and retropulsed superior endplatecausing mild canal stenosis is not significantly changed since prior MRI.Otherwise no significant stenosis of the osseous spinal canal. Vertebral body height and alignment are otherwise preserved. No acutefracture. IMPRESSION 1. No acute intracranial findings. 2. No acute fracture or traumatic malalignment of the cervical spine. 3. Unchanged chronic T12 wedge compression fracture and mild associatedcanal stenosis. 4. No acute fracture or traumatic malalignment of the thoracic spine. Thank you for letting us participate in the care of this patient. If youare a health care provider and have any questions regarding this report,please contact the number below. For patients who have questions please contactthe health patient care nursing assistant that requested your imaging first. Electronically signed by: Violet Beckwith MD, [facility]([phone]), at 04/08/2024 4:31 PM Khris Bacaicoa ISOTOPE TECHNOLOGIST IMG CT ORDERABLES * CT Thoracic Spine wo Contrast (Generic) (04/08/2024 4:06 PM EST) WORKSTATION ID [id number] RAD Anatomical Region Laterality Modality T-spine Computed Tomogra phy Impressions 04/08/2024 4:31 PM EST 1. ??No acute intracranial findings. 2. ??No acute fracture or traumatic malalignment of the cervical spine. 3. ??Unchanged chronic T12 wedge compression fracture and mild associated canal stenosis. 4. ??No acute fracture or traumatic malalignment of the thoracic spine. Thank you for letting us participate in the care of this patient. ??If you are a health care provider and have any questions regarding this report, please contact the number below. ??For patients who have questions please contact the health patient care nursing assistant that requested your imaging first. ? Electronically signed by: Violet Beckwith MD, [facility] ([phone]), at 04/08/2024 4:31 PM Narrative 04/08/2024 4:31 PM EST EXAMINATION: CT HEAD AND CERVICAL SPINE WO CONTRAST (GENERIC), CT THORACIC SPINE WO CONTRAST (GENERIC) CLINICAL HISTORY: Fall about a week ago with face strike now with increased neck pain and some radiating symptoms, history of surgery on the thoracic and lumbar spine (C4-T2 PSIF, C5-7 Lami and remote C6-7 surgery); evaluate acute process TECHNIQUE: CT head and cervical spine performed without intravenous contrast administration. COMPARISON: CT head and cervical and thoracic spine 11/30/2022. MRI cervical spine 12/28/2023. MRI thoracic and lumbar spine 12/01/2022 FINDINGS: Head: There is no acute intracranial hemorrhage, midline shift, mass effect, hydrocephalus or extra-axial collection. No loss of nieves-white differentiation or cerebral edema. Foramen magnum and basilar cisterns are patent. No scalp hematoma. Normal orbits. No fracture. Midline nasal septal defect. Small left posterior ethmoid mucous retention cyst. Otherwise clear paranasal sinuses, mastoid air cells and middle ear cavities. Cervical spine: Posterior decompression from C4-5 through C7-T1, with instrumented fusion posteriorly from C4 to T2. Intact hardware without surrounding lucency. Normal alignment at craniocervical junction. Vertebral body height and alignment are preserved. No fracture. Mild canal narrowing due to calcified disc/osteophyte at C3-4. Multilevel facet arthropathy. Prevertebral fat planes are preserved. Multiple right-sided thyroid nodules measuring up to 8 mm requiring no further workup by ACR criteria. Thoracic spine: Posterior cervicothoracic fusion hardware extending to T1 and T2 as above, with intact hardware no surrounding lucency. T12 wedge compression fracture deformity with approximately 50% anterior height loss, height 5% posterior height loss and retropulsed superior endplate causing mild canal stenosis is not significantly changed since prior MRI. Otherwise no significant stenosis of the osseous spinal canal. Vertebral body height and alignment are otherwise preserved. No acute fracture. Procedure Note Violet Beckwith MD - 04/08/2024 EXAMINATION: CT HEAD AND CERVICAL SPINE WO CONTRAST (GENERIC), CT THORACICSPINE WO CONTRAST (GENERIC) CLINICAL HISTORY: Fall about a week ago with face strike now withincreased neck pain and some radiating symptoms, history of surgery on the thoracic andlumbar spine (C4-T2 PSIF, C5-7 Lami and remote C6-7 surgery); evaluate acuteprocess TECHNIQUE: CT head and cervical spine performed without intravenous contrast administration. COMPARISON: CT head and cervical and thoracic spine 11/30/2022. MRI cervical spine12/28/2023. MRI thoracic and lumbar spine 12/01/2022 FINDINGS: Head: There is no acute intracranial hemorrhage, midline shift, mass effect, hydrocephalus or extra-axial collection. No loss of nieves-white differentiation or cerebral edema. Foramen magnumand basilar cisterns are patent. No scalp hematoma. Normal orbits. No fracture. Midline nasal septal defect. Small left posterior ethmoid mucous retentioncyst. Otherwise clear paranasal sinuses, mastoid air cells and middle earcavities. Cervical spine: Posterior decompression from C4-5 through C7-T1, with instrumentedfusion posteriorly from C4 to T2. Intact hardware without surrounding lucency. Normal alignment at craniocervical junction. Vertebral body height andalignment are preserved. No fracture. Mild canal narrowing due to calcified disc/osteophyte at C3-4. Multilevelfacet arthropathy. Prevertebral fat planes are preserved. Multiple right-sided thyroidnodules measuring up to 8 mm requiring no further workup by ACR criteria. Thoracic spine: Posterior cervicothoracic fusion hardware extending to T1 and T2 as above,with intact hardware no surrounding lucency. T12 wedge compression fracture deformity with approximately 50% anteriorheight loss, height 5% posterior height loss and retropulsed superior endplatecausing mild canal stenosis is not significantly changed since prior MRI.Otherwise no significant stenosis of the osseous spinal canal. Vertebral body height and alignment are otherwise preserved. No acutefracture. IMPRESSION 1. No acute intracranial findings. 2. No acute fracture or traumatic malalignment of the cervical spine. 3. Unchanged chronic T12 wedge compression fracture and mild associatedcanal stenosis. 4. No acute fracture or traumatic malalignment of the thoracic spine. Thank you for letting us participate in the care of this patient. If youare a health care provider and have any questions regarding this report,please contact the number below. For patients who have questions please contactthe health patient care nursing assistant that requested your imaging first. Khris Powers APRN IMG CT ORDERABLES * Sedimentation rate (04/08/2024 3:23 PM EST) Pathologist [facility] Sedimentation Rate Automated 13 2 - 39 mm/hr 04/08/2024 4:[address] [facility] Blood VENOUS BLOOD SPECIMEN / Unknown Venipuncture / Unknown 04/08/2024 3:23 PM EST 04/08/2024 3:28 PM EST Khris Powers APRN HEMATOLOGY ORDERABLE S [facility] [place] [address] * (ABNORMAL) CBC (with Diff) (04/08/2024 3:23 PM EST) White Blood Cell 7.04 4.00 - 9.50 x10(3)/mc L 04/08/2024 4:38 PM [facility] Red Blood Cell 4.08 4.00 - 5.21 x10(6)/mc L 04/08/2024 4:38 PM [facility] Hemoglobin 13.2 11.7 - 15.5 g/dL 04/08/2024 4:38 PM [facility] Hematocrit 39.5 35.7 - 45.8 % 04/08/2024 4:38 PM [facility] Mean Cell Volume 96.8(H) 82.6 - 94.4 fL 04/08/2024 4:38 PM [facility] Mean Cell Hemoglobin 32.4(H) 27.1 - 32.0 pg 04/08/2024 4:38 PM [facility] Mean Cell Hemoglobin Concentration 33.4 31.7 - 35.0 g/dL 04/08/2024 4:38 PM [facility] Platelet 282 145 - 357 x10(3)/mc L 04/08/2024 4:38 PM [facility] Mean Platelet Volume 9.5 7.6 - 12.9 fL 04/08/2024 4:38 PM [facility] RDW Standard Deviation 42.5 37.0 - 46.0 fL 04/08/2024 4:38 PM [facility] RDW coefficient of variation 11.9 11.5 - 14.1 % 04/08/2024 4:38 PM [facility] NRBC% auto 0.0 % 04/08/2024 4:38 PM [facility] NRBC Absolute <0.01 <0.01 x10(3)/mc L 04/08/2024 4:38 PM [facility] Neutrophil % 35.5 % 04/08/2024 4:38 PM [facility] Neutrophil Absolute (ANC) - Automated 2.50 1.70 - 6.10 x10(3)/mc L 04/08/2024 4:[address] [facility] Lymph % 53.0 % 04/08/2024 4:[address] [facility] Lymph Absolute 3.73(H) 0.90 - 3.20 x10(3)/mc L 04/08/2024 4:[address] [facility] Monocyte % 7.5 % 04/08/2024 4:[address] [facility] Monocyte Absolute 0.53 0.30 - 0.90 x10(3)/mc L 04/08/2024 4:[address] [facility] Eos % 3.4 % 04/08/2024 4:[address] [facility] Eos Absolute 0.24 0.00 - 0.40 x10(3)/mc L 04/08/2024 4:[address] [facility] Basophil % 0.3 % 04/08/2024 4:[address] [facility] Baso Absolute <0.04 0.00 - 0.10 x10(3)/mc L 04/08/2024 4:[address] [facility] Immature Gran % 0.3 % 4:38 PM [facility] Immature Gran Absolute <0.04 0.00 - 0.04 x10(3)/mc L 04/08/2024 4:[address] [facility] Blood VENOUS BLOOD SPECIMEN / Unknown Venipuncture / Unknown 04/08/2024 3:23 PM EST 04/08/2024 3:28 PM EST Khris Powers APRN HEMATOLOGY ORDERABLE S [facility] [place] [address] * CRP, acute inflammation (04/08/2024 3:22 PM EST) C-Reactive Protein <3.0 <=4.9 mg/L 04/08/2024 3:[address] [facility] Blood VENOUS BLOOD SPECIMEN / Unknown Venipuncture / Unknown 04/08/2024 3:22 PM EST 04/08/2024 3:28 PM EST Khris Powers APRN CHEMISTRY ORDERABLES [facility] [place] [address] * Basic Metabolic Panel (04/08/2024 3:22 PM EST) Glucose 133 65 - 199 mg/dL 04/08/2024 3:[address] [facility] Comment:Glucose Concentratio n >=200 mg/dL plus symptoms is consistent with Diabetes Mellitus. Blood Urea Nitrogen 16 8 - 18 mg/dL 04/08/2024 3:56 PM [facility] Creatinine 0.75 0.70 - 1.20 mg/dL 04/08/2024 3:[address] [facility] Sodium 140 135 - 145 mMol/L 04/08/2024 3:[address] [facility] Potassium 4.2 3.5 - 5.0 mMol/L 04/08/2024 3:[address] [facility] Chloride 104 98 - 107 mMol/L 04/08/2024 3:[address] [facility] Carbon Dioxide 24 22 - 31 mMol/L 04/08/2024 3:56 PM [facility] Anion Gap 12 5 - 15 mMol/L 04/08/2024 3:[address] [facility] Calcium 9.5 8.5 - 10.5 mg/dL 04/08/2024 3:[address] [facility] Est Glomerular Filtration Rate - Female 90 mL/min/1. 73 m?? 04/08/2024 3:[address] [facility] Comment: This patient's estimated GFR [...] urine creatinine clearance. Assignment of CKD stage 1 - 5 for patients with an eGFR near the transition point between stages may be based on clinical assessment of muscle mass and symptoms in addition to eGFR. Link: eGFR Calculator [employer] Blood VENOUS BLOOD SPECIMEN / Unknown Venipuncture / Unknown 04/08/2024 3:22 PM EST 04/08/2024 3:28 PM EST Khris Powers APR[place] [address] * Mammo Digital Bilateral Screening With CAD [...] Documents on File Type Date Recorded Patient Research Test Engine Operator Expl julianne Advance Directives and Janneth saul Will 12/09/2011 [...] Status decision made by: Patient Care Teams Senior Business Development Manager Relationship Specialty Start Date End Date None None PCP - General 04/08/24
--- OUTSIDE RECORDS SUMMARY | 2024-06-21 20:07 | XMS_ITS | Encounter Summary ---
Author Organization [facility] Address [facility] [place] [address] Care Team Providers Care Business Operations Manager Name Role Phone Shanta Lena Villeda APRN Primary Care Provider Encounter Details Date Type Department Care Team (Latest Contact Info) Description 08/08/2023 3:00 PM EST - 08/08/2023 11:59 PM EST Hospital Encounter XRay at [address] [place] [address] Juan Krishna MD [facility] [place] [address] Stenosis of cervical spine with myelopathy Discharge [...] have questions please contact the health childcare teacher that requested your imaging first. ? Narrative [...] who have questions please contactthe health childcare teacher that requested your imaging first. Juan Krishna MD IMG DX ORDERABLES documented in this encounter Visit Diagnoses Diagnosis Stenosis of cervical spine with myelopathy documented in this encounter Care Teams Business Operations Manager Relationship Specialty Start Date End Date Lena Womack APRN PCP - General Family Medicine 08/02/22 04/07/24 documented as of this encounter
--- OUTSIDE RECORDS SUMMARY | 2024-06-21 20:07 | XMS_ITS | Encounter Summary ---
Author Organization [facility] [place] [address] Care Team Providers Care Pantograph Setter Name Role Phone None Primary Care Provider Unavailabl e Reason for Visit * Reason Onset Date Comments Bumped Appointment 02/07/2024 Master schedu le change. Encounter Details Date Type Department Care Team (Late st Contact Info) Description 02/07/2024 [place] [phone] Tien Zurita MD [facility] [place] [address] Bumped Appointment (Master schedule change.) Social History Tobacco Use Types Packs/Day Years Used Date Smoking Tobacco: Former Cigarettes 0.3 35 Smokeless Tobacco: Never Alcohol Use Standard Drinks/Week Comments Yes 0 (1 standard drink = 0.6 oz pur e alcohol) 1-2x a year [facility] Inpatient Questions Answer Date Recorded [...] on filedocumented in this encounter Care Teams Pantograph Setter Relationship Specialty Start Date End Date None None PCP - General 04/08/24 documented as of this encounter
--- OUTSIDE RECORDS SUMMARY | 2024-06-21 20:07 | XMS_ITS | Encounter Summary ---
Author Organization [facility] Address [address] [place] [address] Care Team Providers Care Turf Manager Name Role Phone Sailaja Ross NP Primary Care Provider [phone] Reason for Visit * (Routine/Next Available) - Receiving Office to Obtain Authorization Specialty Diagnoses / Procedures Referred By Cosmo cortez Referred To Contact Procedures CT OUTSIDE IMAGES HEAD AND NECK Imaging, External Referral ID Status Reason Start Date Expiration Date Visits Requested Visits Authorized [id number] Receiving Office to Obtain Authorization 09/25/2022 1 1 Encounter Details Date Type Department Care Team (Latest Contact Info) Description 09/25/2022 12:53 EDT - 09/25/2022 23:59 EDT Hospital Encounter [facility] Secondary Reads [place] Discharge Disposition: Home [...] 12:53 EDT This is a non-reportable exam. us External Imaging IMG OTHER IMAGING ORDERABLES Fi nal Result documented in this encounter Visit Diagnoses Not on filedocumented in this encounter Care Teams Turf Manager Relationship Specialty Start Date End Date Sailaja Ross, DEO [facility] [address] [place] [address] PCP - General 12/19/09 documented as of this encounter
--- OUTSIDE RECORDS SUMMARY | 2024-06-21 20:07 | XMS_ITS | Encounter Summary ---
Author Organization [facility] Address [facility] [place] [address] Care Team Providers Care Maxillofacial Prosthetics Dentist Name Role Phone Lena Womack APRN Primary Care Provider [phone] Encounter Details Date Type Department Care Team [...] on filedocumented in this encounter Care Teams Maxillofacial Prosthetics Dentist Relationship Specialty Start Date End Date Lena Womack APRN PCP - General Family Medicine 08/02/22 04/07/24 documented as of this encounter
--- OUTSIDE RECORDS SUMMARY | 2024-06-21 20:07 | XMS_ITS | Encounter Summary ---
Author Organization [facility] Address [facility] [place] [address] Care Team Providers Care Gastroenterology Technician Name Role Phone Shanta Lena Villeda APRN Primary Care Provider [phone] Encounter Details Date Type Department Care Team (Late st Contact Info) Description 01/18/2023 Telephone [place] [phone] Tien Zurita MD [facility] [place] [address] Social History Tobacco Use Types Packs/Day Years Used Date Smoking Tobacco: Former Cigarettes 0.3 35 Smokeless Tobacco: Never Alcohol Use Standard Drinks/Week Comments Yes 0 (1 standard drink = 0.6 oz pur e alcohol) 1-2x a year [facility] Inpatient Questions Answer Date Recorded Does [...] AM EDT Called pt scheduled 03/14 appts Billy and Katheryn Velasco - 01/17/23 RubentTien MD Sent: TueJanuary 17, 2023 2:15 PM To: P [facility] Neurosurgery Primer Boxer Follow-up and Dispositions Return in about 8 weeks (around 03/14/2023) for In Person. Check-out Note: Follow-up in 2 months with repeat x-rays documented in this encounter Plan of Treatment Not on file documented as of this encounter Visit Diagnoses Not on filedocumented in this encounter Care Teams Gastroenterology Technician Relationship Specialty Start Date End Date Lena Womack APRN PCP - General Family Medicine 08/02/22 04/07/24 documented as of this encounter
--- OUTSIDE RECORDS SUMMARY | 2024-06-21 20:07 | XMS_ITS | Encounter Summary ---
Author Organization [facility] [place] [address] Care Team Providers Care Business Unit Controller Name Role Phone Brunonunu Lena Nunu MEJIA Primary Care Provider [phone] Reason for Visit * Reason Onset Date Comments Appointment 12/13/2023 MRI Encounter Details Date Type Department Care Team (Late st Contact Info) Description 12/13/2023 [place] [address] Angel Olvera, RN Appointment (MRI) [...] C-Spine wo ordered 08/08/2023. Pt transferred to [phone] to schedule imaging. documented in this encounter Plan of Treatment Not on file documented as of this encounter Visit Diagnoses Not on filedocumented in this encounter Care Teams Business Unit Controller Relationship Specialty Start Date End Date Lena Womack APRN PCP - General Family Medicine 08/02/22 04/07/24 documented as of this encounter
--- OUTSIDE RECORDS SUMMARY | 2024-06-21 20:07 | XMS_ITS | Encounter Summary ---
Author Organization [facility] system Address [address] [place] [address] Care Team Providers Care Ornamental Painter Name Role Phone Sailaja Ross NP Primary Care Provider [phone] Reason for Visit * (Routine/Next Available) - Receiving Office to Obtain Authorization Specialty Diagnoses / Procedures Referred By Cosmo cortez Referred To Contact Procedures CT OUTSIDE IMAGES ABDOMEN PELVIS Imaging, External Referral ID Status Reason Start Date Expiration Date Visits Requested Visits Authorized [id number] Receiving Office to Obtain Authorization 09/25/2022 1 1 Encounter Details Date Type Department Care Team (Latest Contact Info) Description 09/25/2022 12:44 EDT - 09/25/2022 12:52 EDT Hospital Encounter [facility] Secondary Reads [place] Discharge Disposition: [...] 12:44 EDT This is a non-reportable exam. us External Imaging IMG OTHER IMAGING ORDERABLES Fi nal Result documented in this encounter Visit Diagnoses Not on filedocumented in this encounter Care Teams Ornamental Painter Relationship Specialty Start Date End Date Sailaja Ross, DEO [facility] [address] [place] [address] PCP - General 12/19/09 documented as of this encounter
--- OUTSIDE RECORDS SUMMARY | 2024-06-21 20:07 | XMS_ITS | Encounter Summary ---
Author Organization [facility] [place] [address] Care Team Providers Care Assistant Manager/Embalmer Name Role Phone Shanta Lena Villeda APRN Primary Care Provider [phone] Reason for Visit * Reason Comments Follow-up Neck pain Encounter Details Date Type Department Care Team (Late st Contact Info) Description 01/17/2023 1:40 PM EDT Office Visit [facility] [place] [phone] Tien Zurita MD [facility] [place] [address] Cervical spondylosis without myelopathy; Cervical myelopathy Social History Tobacco Use Types Packs/Day Years Used Date Smoking Tobacco: Former Cigarettes 0.3 35 Smokeless Tobacco: Never Tobacco Cessation:Counseling Given: Not Answered Alcohol Use Standard Drinks/Week Comments Yes 0 (1 standard drink = 0.6 oz pur e alcohol) 1-2x a year [facility] Inpatient Questions Answer Date Recorded Does Anyone [...] MD - 01/17/2023 1:40 PM EDT [facility] Progress Note CC: 1 month [...] on file documented as of this encounter Results * [...] who have questions please contact the health day care teacher that requested your imaging first. ? Electronically signed by: Svetlana Wellington MD, [facility] ([phone]), at 03/14/2023 2:08 PM Narrative 03/14/2023 2:08 [...] patients who have questions please contactthe health day care teacher that requested your imaging first. Electronically signed by: Svetlana [place] MD, [facility]([phone]), at 03/14/2023 2:08 PM Chauhan A Echt IMG DX ORDERABLES documented in this encounter Visit Diagnoses Diagnosis Cervical spondylosis without myelopathy Cervical myelopathy Cervical spondylosis with myelopathy Cervical myelopathy Cervical spondylosis with myelopathy documented in this encounter Care Teams Assistant Manager/Embalmer Relationship Specialty Start Date End Date Lena Womack, PHYSICAL FITNESS TEACHER PCP - General Family Medicine 08/02/22 04/07/24 documented as of this encounter
--- OUTSIDE RECORDS SUMMARY | 2024-06-21 20:07 | XMS_ITS | Encounter Summary ---
Author Organization [place] [address] Care Team Providers Care Speech And Language Assistant Name Role Phone Lena Womack APRN Primary Care Provider [phone] Reason for Visit * Diagnostic Test (Routine) - Closed Specialty Diagnoses / Procedures Referred By Cosmo cortez Referred To Contact Radiology Diagnoses Cervical myelopathy Procedures MRI Cervical Spine wo Contrast (Generic) Tien Zurita MD [facility] [place] [address] [place] [address] Referral ID Status Reason Start Date Expiration Date V isits Requested Visits Authorized [id number] Closed Specialty Service Requested 12/28/2023 02/25/2024 1 1 Encounter Details Date Type Department Care Team (Latest Contact Info) Description 12/28/2023 10:15 AM EDT - 12/28/2023 11:59 PM EDT Hospital [place] [address] Tien Zurita MD [facility] [place] [address] Discharge Disposition: Home Social History [...] wo Contrast (Generic) (12/28/2023 11:43 AM EDT) Vo[employer] WORKSTATION ID [id number] RAD Anatomical Region Laterality Modality C-spine Magnetic [...] have questions please contact the health career portals teacher that requested your imaging first. ? Electronically signed by: Angel Rodriguez [facility] ([phone]), at 12/29/2023 11:33 AM Narrative 12/29/2023 11:33 [...] who have questions please contactthe health career portals teacher that requested your imaging first. Electronically signed by: Angel Rodriguez [facility]([phone]), at 12/29/2023 11:33 AM Chauhan Mishel Echt IMG MRI ORDERABLES documented in this encounter Visit Diagnoses Not on filedocumented in this encounter Care Teams Speech And Language Assistant Relationship Specialty Start Date End Date Lena Womack APRN PCP - General Family Medicine 08/02/22 04/07/24 documented as of this encounter
--- OUTSIDE RECORDS SUMMARY | 2024-06-21 20:07 | XMS_ITS | Encounter Summary ---
Author Organization [facility] Address [address] [place] [address] Care Team Providers Care Electorate Officer Name Role Phone Sailaja Fitzgerald DEO Primary Care Provider [phone] Encounter Details Date Type Department Care Team (Late st Contact Info) Description 06/25/2004 Results Only [facility] - Map conversion [address] [place] [address] Emani Moreau MD [address] [place] [address] [place] [address] Social History Tobacco Use Types Packs/Day Years [...] ? KATHERYN MARCH ? Accession #: ? [id number] ? : ? 1960 (Age: 43) ??F ? Collect Date: ? 06/25/2004 ? Location: ? [facility] ? Receive Date: ? 06/26/2004 ? Provider: EMANI MOREAU MD Copy to: SAILAJA [address] LIGHT INSPECTOR ? Final Pathologic Diagnosis: ? Uterus, right [...] Gross Description: ? Received in formalin labelled Dillon and uterus, right ovary, cervix is the [...] ??Sectioning of the cervix reveals no abnormalities. Director Of Child Welfare Services sections are submitted as follows: BLOCK HUITRON A1-A3 ?Endometrial polyps A4 ?Endometrial polyp and full thickness endomyometrium A5 ?Pedunculated serosal myomatous nodule A6 ?Broad based serosal myomatous nodule A7-A10 ?Ovarian cyst and ovary A11 ?Fallopian tube and fimbria A12 ?Cervix (Dr. Shen)/tmg ?? End of Report [facility] 06/25/2004 06/26/2004 15: 02 EST us Emani Moreau MD PATHOLOGY ORDERABLES Final Resu lt [facility] [address] [place] [address] documented in this encounter Visit Diagnoses Not on filedocumented in this encounter Care Teams Electorate Officer Relationship Specialty Start Date End Date Sailaja Fitzgerald, DEO [facility] [address] [place] [address] PCP - General 12/19/09 documented as of this encounter
--- OUTSIDE RECORDS SUMMARY | 2024-06-21 20:07 | XMS_ITS | Encounter Summary ---
Author Organization [facility] Address [address] [place] [address] Care Team Providers Care Cap Coverer Name Role Phone Sailaja Ross NP Primary Care Provider [phone] Reason for Visit * (Routine/Next Available) - Receiving Office to Obtain Authorization Specialty Diagnoses / Procedures Referred By Cosmo cortez Referred To Contact Procedures CT OUTSIDE IMAGES LUMBAR SPINE Imaging, External Referral ID Status Reason Start Date Expiration Date Visits Requested Visits Authorized [id number] Receiving Office to Obtain Authorization 09/25/2022 1 1 Encounter Details Date Type Department Care Team (Latest Contact Info) Description 09/25/2022 12:39 EDT - 09/25/2022 12:43 EDT Hospital Encounter [facility] Secondary Reads [place] Discharge Disposition: Home [...] 12:39 EDT This is a non-reportable exam. us External Imaging IMG OTHER IMAGING ORDERABLES Fi nal Result documented in this encounter Visit Diagnoses Not on filedocumented in this encounter Care Teams Cap Coverer Relationship Specialty Start Date End Date Sailaja Ross, DEO [facility] [address] [place] [address] PCP - General 12/19/09 documented as of this encounter
--- OUTSIDE RECORDS SUMMARY | 2024-06-21 20:07 | XMS_ITS | Encounter Summary ---
Author Organization [facility] Address [facility] [place] [address] Care Team Providers Care Wire Saw Operator Name Role Phone None Primary Care Provider Unavailabl e Encounter Details Date Type Department Care Team (Latest Contact Info) Description 04/08/2024 Travel Social History Tobacco Use Types Packs/Day [...] on filedocumented in this encounter Care Teams Wire Saw Operator Relationship Specialty Start Date End Date None None PCP - General 04/08/24 documented as of this encounter
--- OUTSIDE RECORDS SUMMARY | 2024-06-21 20:07 | XMS_ITS | Encounter Summary ---
Author Organization [facility] Address [facility] [place] [address] Care Team Providers Care Installation And Repair Technician Name Role Phone None Primary Care Provider Unavailabl e Reason for Referral * Physical Therapy (Routine) - Closed Specialty Diagnoses / Procedures Referred By Cosmo cortez Referred To Contact Diagnoses Stenosis of cervical spine with myelopathy Tien Zurita MD [facility] [place] [address] Physical Therapy, Jelani Rice [address] [place] [address] Referral ID Status Reason Start Date Expiration Date V isits Requested Visits Authorized [id number] Closed Evaluate and Treat 05/02/2024 10/29/2024 12 12 Encounter Details Date Type Department Care Team (Late st Contact Info) Description 05/02/2024 3:00 PM EST Office [place] [address] Tien Zurita MD [facility] [place] [address] Stenosis of cervical spine with myelopathy Social [...] Mass Index 31.46 05/02/2024 2:31 PM EST documented in this encounter Progress Notes * Tien Zurita MD - 05/02/2024 3:00 PM EST Images from the original note were not included. [facility] Progress Note CC: 18-month postoperative visit Interval History: 63 y.o. year old female, w/ severe degenerative cervical myelopathy with C6-7 OLF s/p C4-T2 PSIF with C5-7 laminectomy on 12/02/2022. Patient reports an episode since her last visit resulting in a fall and a shoulder dislocation thatwas extremely painful. She was also developing severe neck pain and was concerned regarding her neck and presented to the emergency department on 04/08/2024. There CTs of the cervical spine were performed. She continues to endorse a moderate to severe degree of neck pain and tenderness over a prominent spinous process in the upper thoracic spine. Otherwise, her neurologic symptoms have continued to improve and she is now only using a cane to ambulate, previously requiring a rollator. She still has mild hand clumsiness and some mild hand numbness, and no bowel or bladder changes. Overall the patient and accompanying her today both acknowledge that her neurologic symptoms have significantly improved compared to preop when she was essentially nonambulatory and are satisfied with the results a year and a half later despite ongoing gait impairment and neck pain. Physical Exam Synopsis [employer] 05/02/2024 14:42 Spine ASR Evaluation Responses Most recent surgery area Neck Schooling completed High school graduate or GED Current situation None of the above Current job situation Unemployed, not health related Surgery helped neck problem Helped a lot Have same surgery again? Definitely Neck Disability Index (NDI) Neck Pain Level (0 is no pain; 10 is extreme pain) 8 Arm Pain Level (0 is no pain; 10 is extreme pain) 8 Pain Intensity The pain is moderate at the moment Personal Care (washing, dressing, etc.) It is painful to look after myself and I am slow and careful Lifting I can only lift very light weights Reading I cannot read as much as I want because of moderate pain in my neck Headaches I have moderate headaches, which come frequently Concentration I can concentrate fully when I want to with no difficulty Work I can hardly do any work at all Driving I can drive my car as long as I want with moderate pain in my neck Sleeping My sleep is mildly disturbed (1-2 hrs sleepless) Recreation I can hardly do any recreation activities because of pain in my neck Neck Disability Index (NDI) 52 PROMIS-10 Health in general Good Quality of life Good Physical health Fair Mental health Very Good Satisfaction with social activities Very Good Ability to carry out physical activities Mostly Rate of pain 7 Rate of fatigue Moderate Ability to carry out social activities Very Good Bothered by emotional problems Rarely PROMIS-10: Physical Health Score (range: 4-20) 11 PROMIS-10: Global Mental Health Score (range: 4-20) 15 Physical Health Score (range: 16-68) 37.4 Mental Health Score (range: 21-68) 50.8 [id number] EQ5D: Mobility today 2 EQ5D: Self-Care today 2 EQ5D: Usual Activities today 2 EQ5D: Pain/Discomfort today 2 EQ5D: Anxiety/Depression today 1 EQ5D: Health today (0 is worst health; 100 is best health) 50 EXAM: NAD, AAOx3 Gait remains slightly wide-based but improved stride compared to previous Delt Bic Tri Gri Intr RT 5 5 5 5 5 LT 5 5 5 5 5 Ilio Quad TibA EHL Gastroc RT 5 5 5 5 5 LT 4+ 4+ 5 5 5 Sensation intact to light touch DTR 2+ throughout Incision well-healed with some midline muscle atrophy and slight anterior migration of the paraspinal muscles. There is a prominent T1 spinous process with some mild tenderness to palpation. Imaging independently reviewed: CT of the cervical spine on 04/08/2024 demonstrates a solid arthrodesis from C4- T2 without evidence of screw lucency. There is a similar degree of C3-4 OPLL behind the disc space, unchanged compared to preop. MRI of the cervical spine performed in December demonstrates a satisfactory decompression with some residual intramedullary T2 signal and mild myelomalacia at the C6-7 level. X-rays of the cervical spine performed today demonstrate intact hardware and well-maintained alignment ASSESSMENT AND PLAN 63 y.o. year old female, w/ severe DCM with C6/7 overlap s/p C4-T2 PCD F with overall significant improvement in her myelopathy symptoms, but with some ongoing impairment specifically with her gait imbalance. Regarding her neurologic recovery, given that is now 18 months after surgery I explained that it isunlikely that she will have any significant gains more than she has already. Still, this representsa substantial improvement from her preoperative nonambulatory status. Regarding her axial neck painshe would benefit from a referral to physical therapy and a request for this was placed. We also discussed the option of attempting to revise the wound with advancement of her paraspinal flaps and foreshortening of the prominent T1 spinous process. Obviously, I cannot give her any guarantee that the muscle does not atrophy again in the midline, and she wishes to hold off on performing this for now. Future follow-up may be on an as-needed basis for any new or worsening symptoms. Tien Zurita MD Department of Neurosurgery documented in this encounter Plan of Treatment Scheduled Referrals Name Type Priority Associated Diagnoses Orde r Schedule Referral to Physical Therapy Outpatient Referral Routine Stenosis of cervical spine with myelopathy Ordered: 05/02/2024 documented as of this encounter Visit Diagnoses Diagnosis Stenosis of cervical spine with myelopathy documented in this encounter Care Teams Installation And Repair Technician Relationship Specialty Start Date End Date None None PCP - General 04/08/24 documented as of this encounter
--- OUTSIDE RECORDS SUMMARY | 2024-06-21 20:07 | XMS_ITS | Encounter Summary ---
Author Organization [facility] Address [facility] [place] [address] Care Team Providers Care Fire Protection Equipment Technician Name Role Phone Shanta Lena Villeda APRN Primary Care Provider [phone] Encounter Details Date Type Department Care Team (Latest Contact Info) Description 01/17/2023 12:41 PM EDT - 01/17/2023 11:59 PM EDT Hospital Encounter XRay at [address] [place] [address] Tien Zurita MD [facility] [place] [address] Cervical spondylosis without myelopathy Discharge Disposition: Home Social History Tobacco Use Types Packs/Day Years Used Date Smoking Tobacco: Former Cigarettes 0.3 35 Smokeless Tobacco: Never Alcohol Use Standard Drinks/Week Comments Yes 0 (1 standard drink = 0.6 oz pur e alcohol) 1-2x a year [facility] Inpatient Questions Answer Date Recorded Does [...] who have questions please contact the health landcare facilitator that requested your imaging first. ? Electronically signed by: Svetlana [place] MD, [facility] ([phone]), at 01/17/2023 2:21 PM Narrative 01/17/2023 2:21 [...] patients who have questions please contactthe health landcare facilitator that requested your imaging first. Electronically signed by: Svetlana [place] MD, [facility]([phone]), at 01/17/2023 2:21 PM Chauhan A Echt IMG DX ORDERABLES documented in this encounter Visit Diagnoses Diagnosis Cervical spondylosis without myelopathy documented in this encounter Care Teams Fire Protection Equipment Technician Relationship Specialty Start Date End Date Brunonunu Lena Villeda APRN PCP - General Family Medicine 08/02/22 04/07/24 documented as of this encounter
--- OUTSIDE RECORDS SUMMARY | 2024-06-21 20:07 | XMS_ITS | Encounter Summary ---
[place] [address] Care Team Providers Care Clinical Review Specialist Name Role Phone Shanta Lena Villeda APRN Primary Care Provider [phone] Reason for Referral * Diagnostic Test (Routine) - Closed Specialty Diagnoses / Procedures Referred By Cosmo cortez Referred To Contact Radiology Diagnoses Cervical myelopathy Procedures MRI Cervical Spine wo Contrast (Generic) Tien Zurita MD [facility] [place] [address] [place] [address] Referral ID Status Reason Start Date Expiration Date V isits Requested Visits Authorized [id number] Closed Specialty Service Requested 12/28/2023 02/25/2024 1 1 Reason for Visit * Reason Comments Follow-up Encounter Details Date Type Department Care Team (Late st Contact Info) Description 08/08/2023 3:40 PM EST Office Visit [place] [address] Tien Zurita MD [facility] [place] [address] Cervical myelopathy Social History Tobacco [...] Zurita MD - 08/08/2023 3:40 PM EST [facility] Neurosurgery Clinic Progress Note CC: 6-month postoperative [...] this encounter Results * XR Cervical Spine 4 or 5 Views (05/02/2024 2:19 PM EST) WORKSTATION ID [id number] RAD Anatomical Region Laterality Modality L-spine N/A [...] who have questions please contact the health skin care instructor that requested your imaging first. ? Electronically signed by: Rosaura Ocampo MD, [facility] ([phone]), at 05/02/2024 4:21 PM Narrative 05/02/2024 4:21 [...] patients who have questions please contactthe health skin care instructor that requested your imaging first. Electronically signed by: Rosaura Ocampo MD, [facility]([phone]), at 05/02/2024 4:21 PM Chauhan A Echt IMG DX ORDERABLES * MRI Cervical Spine wo Contrast (Generic) (12/28/2023 11:43 AM EDT) WORKSTATION ID [id number] RAD Anatomical Region Laterality Modality C-spine Magnetic [...] who have questions please contact the health skin care instructor that requested your imaging first. ? Electronically signed by: Angel Rodriguez [facility] ([phone]), at 12/29/2023 11:33 AM Narrative 12/29/2023 11:33 [...] patients who have questions please contactthe health skin care instructor that requested your imaging first. Electronically signed by: Angel Rodriguez [facility]([phone]), at 12/29/2023 11:33 AM Chauhan A Echdana AKBAR IMG MRI ORDERABLES documented in this encounter Visit Diagnoses Diagnosis Cervical myelopathy Cervical spondylosis with myelopathy Cervical myelopathy Cervical spondylosis with myelopathy Cervical myelopathy Cervical spondylosis with myelopathy documented in this encounter Care Teams Clinical Review Specialist Relationship Specialty Start Date End Date Lena Womack, SAP ABAP DEVELOPER PCP - General Family Medicine 08/02/22 04/07/24 documented as of this encounter
--- OUTSIDE RECORDS SUMMARY | 2024-06-21 20:07 | XMS_ITS | Encounter Summary ---
[place] [address] Care Team Providers Care Paving And Surfacing Labourer Name Role Phone Lena Womack APRN Primary Care Provider [phone] Encounter Details Date Type Department Care Team (Late st Contact Info) Description 07/22/2023 [place] [id number] Rena Tom Social History Tobacco Use Types Packs/Day Years Used Date Smoking Tobacco: Former Cigarettes 0.3 35 Smokeless Tobacco: Never Alcohol Use Standard Drinks/Week Comments Yes 0 (1 standard drink = 0.6 oz pur e alcohol) 1-2x a year [facility] Inpatient Questions Answer Date Recorded Does [...] out to the patient. Thanks Cherri Clinical Road Roller Engineer [facility] documented in this [...] questions please contact the health skin care specialist that requested your imaging first. ? Electronically signed by: Rosaura Ocampo MD, [facility] ([phone]), at 08/09/2023 1:46 PM Narrative 08/09/2023 1:46 PM EST EXAMINATION: XR [...] have questions please contactthe health skin care specialist that requested your imaging first. 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
--- OUTSIDE RECORDS SUMMARY | 2024-06-21 20:07 | XMS_ITS | Encounter Summary ---
Author Organization [facility] Address [facility] [place] [address] Care Team Providers Care Filter Helper Name Role Phone None Primary Care Provider Unavailabl e Encounter Details Date Type Department Care Team (Latest Contact Info) Description 05/02/2024 2:00 PM EST - 05/02/2024 11:59 PM [facility] Hospital Encounter XRay at [address] [place] [address] Tien Zurita MD [facility] [place] [address] Cervical myelopathy Discharge Disposition: Home Social History Tobacco Use Types Packs/Day Years Used Date Smoking Tobacco: Former Cigarettes 0.3 35 Smokeless Tobacco: Never Alcohol Use Standard Drinks/Week Comments Yes 0 (1 standard drink = 0.6 oz pur e alcohol) 1-2x a year [facility] Inpatient Questions Answer Date Recorded Does Anyone [...] Sig Dispensed Refills Start Date End Date cyclobenzaprine (Flexeril) 10 mg tablet Take 10 mg by mouth 3 times daily as needed. 04/10/2024 omeprazole (PriLOSEC) [address] capsule Take 1 capsule by mouth Daily at Noon. 02/06/2024 methocarbamoL (Robaxin) 500 mg tablet Take 2 tablets by mouth 2 times daily. 04/11/2024 ibuprofen (Advil) 600 mg tablet Take 1 tablet by mouth every 8 hours as needed for Pain. 30 tablet 1 04/08/2024 albuteroL 90 mcg/actuation HFA Aerosol Inhaler INHALE [...] tablet Take 50 mg by mouth daily. methocarbamoL (Robaxin) 750 mg tablet Take 1 tablet by mouth 3 times daily as needed. 20 tablet 04/08/2024 oxyCODONE (Roxicodone) 10 mg tablet Take 1-3 tablets by mouth every 3 hours as needed for Pain (If your pain is 4-6 take 10mg; if 7-8 take 20mg; if 9-10 take 30mg). 30 tablet 12/16/2022 traMADoL (Ultram) 100 mg tablet Take 100 mg by mouth 2 times daily as needed. 11/27/2022 documented as of this encounter Plan of Treatment Not on file documented as of this encounter Procedures Procedure Name Priority Date/Time Associated Diagnosis Comments XR CERVICAL SPINE 4 OR 5 VIEWS Routine 05/02/2024 2:19 PM EST Cervical myelopathy documented in this encounter Results * XR Cervical Spine 4 or 5 Views (05/02/2024 2:19 PM EST) [place] WORKSTATION ID [id number] DH RAD Anatomical Region Laterality Modality L-spine N/A [...] who have questions please contact the health child care center administrator that requested your imaging first. ? Electronically signed by: Rosaura Ocampo MD, [facility] ([phone]), at 05/02/2024 4:21 PM Narrative 05/02/2024 4:21 [...] patients who have questions please contactthe health child care center administrator that requested your imaging first. Chauhan A Echt IMG DX ORDERABLES documented in this encounter Visit Diagnoses Diagnosis Cervical myelopathy Cervical spondylosis with myelopathy documented in this encounter Care Teams Filter Helper Relationship Specialty Start Date End Date None None PCP - General 04/08/24 documented as of this encounter
--- OUTSIDE RECORDS SUMMARY | 2024-06-21 20:07 | XMS_ITS | Encounter Summary ---
Author Organization [facility] Address [facility] [place] [address] Care Team Providers Care Electronic Equipment Trades Worker Name Role Phone None Primary Care Provider Unavailabl e Encounter Details Date Type Department Care Team (Late st Contact Info) Description 03/05/2024 [place] [address] Tien Zurita MD [facility] [place] [address] Social History Tobacco Use Types Packs/Day Years Used Date Smoking Tobacco: Former Cigarettes 0.3 35 Smokeless Tobacco: Never Alcohol Use Standard Drinks/Week Comments Yes 0 (1 standard drink = 0.6 oz pur e alcohol) 1-2x a year [facility] Inpatient Questions Answer Date Recorded Does [...] encounter Miscellaneous Notes * Telephone Encounter - Aria Madden - 03/06/2024 11:58 AM EDT Patient called in 11:58 AM 03/06/24 to reschedule her appointment as she stated she fell and she broke her shoulder and she is unable to come in, patient also requesting that the appointment be made with Dr Zurita, not JOANNA Hoyos. Appointment has been rescheduled to 05.02.24 at 3pm agent transferred patient over to Radiology so that could also be rescheduled. * Telephone Encounter - Daniela Swain - 03/05/2024 3:36 PM EDT CLINIC PHONE COVERAGE: Reason for Call: Appointment Rescheduling Message: Patient called requesting to reschedule the following appointment. Patient stated that it was scheduled through Pain & Spine Department. Date: 03/07/24 Time: 10:00 Visit Type: X-Ray and Office Visit Provider: Jodi Hankins but patient prefers to see Dr. Zurita. Reason for Cancelation: Inconvenient Date or Time Callback number: [phone] Best time you are available: Any documented in this encounter Plan of Treatment Not on file documented as of this encounter Visit Diagnoses Not on filedocumented in this encounter Care Teams Electronic Equipment Trades Worker Relationship Specialty Start Date End Date None None PCP - General 04/08/24 documented as of this encounter
--- OUTSIDE RECORDS SUMMARY | 2024-06-21 20:07 | XMS_ITS | Encounter Summary ---
Author Organization [facility] Address [facility] [place] [address] Care Team Providers Care Enameler Name Role Phone None Primary Care Provider Unavailabl e Encounter Details Date Type Department Care Team (Latest Contact Info) Description 05/02/2024 Travel Social History Tobacco Use Types Packs/Day [...] on filedocumented in this encounter Care Teams Enameler Relationship Specialty Start Date End Date None None PCP - General 04/08/24 documented as of this encounter
--- OUTSIDE RECORDS SUMMARY | 2024-06-21 20:07 | XMS_ITS | Encounter Summary ---
[place] [address] Care Team Providers Care Sales Agent Name Role Phone None Primary Care Provider Unavailabl e Reason for Visit * Reason Comments Post-op Problem Encounter Details Date Type Department Care Team (Late st Contact Info) Description 04/08/2024 1:32 PM EST - 04/08/2024 5:52 PM [place] [id number] Neck pain; Radiating pain; Muscle spasm Discharge Disposition: Home Social History Tobacco Use [...] Sign Reading Time Taken Comments Blood Pressure 137/82 04/08/2024 1:27 PM EST Pulse 67 04/08/2024 1:27 PM EST Temperature 36.1 ??C (97 ??F) 04/08/2024 1:27 PM EST Respiratory Rate 16 04/08/2024 1:27 PM EST Oxygen Saturation 98% 04/08/2024 1:27 PM EST Inhaled Oxygen Concentration - - Weight 87.6 kg (193 lb 2 oz) 04/08/2024 1:27 PM EST Height 165.1 cm (5' 5) 04/08/2024 1:27 PM EST Body Mass Index 32.14 04/08/2024 1:27 PM EST documented in this encounter Discharge Instructions * Discharge Instructions* Khris Powers APRN - 04/08/2024 5:40 PM EST You were seen today in the emergency department and evaluated for your symptoms. Your lab work was reassuring and had CT scans of your cervical and thoracic spine as well as an x-ray of your cervicalspine. There were no obvious issues and all your hardware looked to be in the right place. He received some medications which helped her symptoms. I suspect a big part of this is some muscle tightness and spasm particularly because you are wearing the sling from the left arm injury and everything is getting tight and compensating. Instructions and plan: Muscle relaxant-- You have been prescribed a muscle relaxant, methocarbamol (Robaxin). Take this asdirected for moderate to severe muscle spasm. No alcohol or driving within 8 hours of taking this medication. Stop taking your Flexeril. You should take [id number] Tylenol 1000 mg by mouth every 8 hours as needed (do not take morethan 3000 mg in a 24-hour period). This can be alternated with a nonsteroidal anti-inflammatory (NSAID) such as ibuprofen 600 mg by mouth every 8 hours as needed. Be sure to take the ibuprofen with food or a small meal. You can also try an [id number] patch that is used for pain called a lidocaine 4% patch. This can be found in your local pharmacy, ask your pharmacist help you locate this. Use per package instructions, leave the patch on for 12 hours and take off for 12 hours. Ice and/or heat may help. For the first few days only use ice. After that you can try both of these, they can be used every 1-2 hours for 20 minutes at a time. Use which ever helps your symptoms the most. It is important to stay moving, take several short gentle walks throughout the day. Avoid any bending, twisting or heavy lifting of anything greater than 8 pounds. Make an appointment to see your primary care provider within the next 5 to 7 days for reevaluation and follow up. Follow-up with your spine care provider. Return if you have new or worsening symptoms or any of the symptoms we discussed including but not limited to: New or worsening numbness or weakness. Difficulty walking around. Changes to your bowels or bladderincluding incontinence. Fever, chills. documented in this encounter Medications at Time of Discharge Medication Sig Dispensed Refills Start Date End Date omeprazole (PriLOSEC) [address] capsule Take 1 capsule by mouth Daily at Noon. 02/06/2024 ibuprofen (Advil) 600 mg tablet Take 1 [...] needed. 11/27/2022 documented as of this encounter ED Notes * Khris Powers, JACKIE - 04/08/2024 2:44 PM EST ED PROVIDER NOTE Patient Name: Katheryn Carranza Patient Age: 63 y.o. Patient : 1960 Encounter Date: 04/08/2024 Chief Complaint Post-op Problem History of Present Illness Katheryn Carranza is a 63 y.o. female who presents for evaluation of neck pain. Patient has been having worsening neck pain over the past week or week and a half. A month or so ago she fell and sustained an injury to her left arm with what sounds like a clavicle and shoulder injury/proximal humerus injury. She was seen at [facility] and has seen orthopedics there, put in a sling. Since then she has had a little more discomfort in her neck as well as her arms and legs. She has a history of extensive spine surgery including C4-T2 PSIF with C5- 7 laminectomy in November 2022.Prior to that she had had a remote C6-7 surgery. She has had soreness and tightness since her left shoulder drape. She has had a little tingling in her legs which she has experienced before. It seemsthat the right arm has been more bothersome and the left arm painful as well. These are symptoms she is experienced before. About a week and a half ago she fell onto her face and since then her neck has been more bothersome particularly in the back at the lower C-spine area. She has not been seen since then, she has not been taking a whole lot, it sounds like maybe some Robaxin here and there, she has not been taking Flexeril she ran out, some ibuprofen and Tylenol here and there as well. She has been taking her other usual home meds. She is urinating without issue, moving her bowels, no incontinence. Has not felt any weakness in her legs. At times when the discomfort in her arms is bothersome she feels a little weak but has not dropped anything. No fever or chills. The history is provided by the patient, family, and EMR. Review of Systems ROS as above with pertinent positives and negatives. Medical, surgical and social history as well as medications and allergies reviewed & updated inchart as appropriate. Physical Exam BP 137/82 Pulse 67 Temp 36.1 ??C (97 ??F) Resp 16 Ht 165.1 cm (5' 5) Wt 87.6 kg (193 lb 2 oz) SpO2 98% BMI 32.14 kg/m?? Physical Exam Constitutional: General: She is not in acute distress. HENT: Head: Normocephalic. Mouth/Throat: Mouth: Mucous membranes are moist. Pharynx: Oropharynx is clear. Eyes: Extraocular Movements: Extraocular movements intact. Neck: Comments: Noise pains with range of motion of neck. There is tenderness in the lower cervical midline spine with an area of prominence where her surgery was, overlying skin is intact without erythema. There is a lot of tightness in the paraspinal muscles particularly on the right through the cervical spine and upper thoracic region and into the trapezium. Palpation of this does induce some symptoms. Cardiovascular: Rate and Rhythm: Normal rate. Pulmonary: Effort: Pulmonary effort is normal. Chest: Chest wall: No tenderness. Musculoskeletal: Comments: There is some tightness in the parascapular region and paraspinal muscles on the right, no midline tenderness in the lower thoracic or lumbar area, some tenderness in the upper thoracic andlower cervical spine area. Generalized pain with range of motion but nothing focal. 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 Strength of bilateral lower extremities is 5/5 with sensation intact to light touch throughout as well as in the upper extremities. Skin: General: Skin is warm. Capillary Refill: Capillary refill takes less than 2 seconds. Neurological: Mental Status: She is alert and oriented to person, place, and time. Psychiatric: Mood and Affect: Mood normal. ED Course ED Course as of 04/08/242013 Sun Apr 08, 2024 1545 White Blood Cell: 7.04 1545 Hemoglobin: 13.2 1603 C-Reactive Protein: <3.0 1640 White Blood Cell: 7.04 1640 Hemoglobin: 13.2 1640 Hematocrit: 39.5 1640 Platelet: 282 1640 Sedimentation Rate Automated: [address] Head & Cervical Spine wo Contrast (Generic) No acute findings, hardware is intact 1642 CT Thoracic Spine wo Contrast (Generic) Acute findings, hardware is intact and no significant change from prior on chronic findings 1644 Pt and family udpated 1712 XR Cervical Spine 2 or 3 Views No acute findings or hardware complications, there is some straightening of the lordosis which could be related to patient positioning or spasm History, examination Vitals, nursing notes reviewed Diagnostics Reviewed and interpreted independently Imaging XR Cervical Spine 2 or 3 Views Final Result 1. Stable appearance of status post posterior spinal fixation at the cervicothoracic junction. 2. Straightening of the cervical lordosis which may be related to patient positioning and/or muscle spasm. 3. No acute osseous abnormality. Thank you for letting us participate in the care of this patient. If you are a health care provider and have any questions regarding this report, please contact the number below. For patients who have questions please contact the health primary care nurse that requested your imaging first. Electronically signed by: Angel Baker DO, [facility] ([phone]), at 04/08/2024 5:[address] Head & Cervical Spine wo Contrast (Generic) Final Result 1. No acute intracranial findings. 2. No acute fracture or traumatic malalignment of the cervical spine. 3. Unchanged chronic T12 wedge compression fracture and mild associated canal stenosis. 4. No acute fracture or traumatic malalignment of the thoracic spine. Thank you for letting us participate in the care of this patient. If you are a health care provider and have any questions regarding this report, please contact the number below. For patients who have questions please contact the health primary care nurse that requested your imaging first. Electronically signed by: Violet Beckwith MD, [facility] ([phone]), at 04/08/2024 4:[address] Thoracic Spine wo Contrast (Generic) Final Result 1. No acute intracranial findings. 2. No acute fracture or traumatic malalignment of the cervical spine. 3. Unchanged chronic T12 wedge compression fracture and mild associated canal stenosis. 4. No acute fracture or traumatic malalignment of the thoracic spine. Thank you for letting us participate in the care of this patient. If you are a health care provider and have any questions regarding this report, please contact the number below. For patients who have questions please contact the health primary care nurse that requested your imaging first. Electronically signed by: Violet Beckwith MD, [facility] ([phone]), at 04/08/2024 4:31 PM Medications As noted below and documented in MAR Medications acetaminophen (Tylenol) tablet 975 mg (975 mg Oral Given 04/08/24 1538) methocarbamoL (Robaxin) tablet 750 mg (750 mg Oral Given 04/08/24 1538) Procedures None MDM, Assessment and Plan MDM/PLAN: 63 y.o. female with increasing neck and arm pain and some other symptoms in the context of a fall but also a prior fall with a left upper extremity injury. Has been taking some medications intermittently for pain but nothing new or different and has not been taking full doses of some of the medications including Tylenol, ibuprofen and some of her muscle relaxers. On initial presentation patient is afebrile and hemodynamically stable. Physical exam notable as above, nothing focal or localizing. In general her strength and sensation is intact. She does have a lot of tightness in the musculature particularly in the right upper back and neck area. Will get basic labs as well as CT of the cervical and thoracic spine to look for any abnormalities or hardware issues. Labs are largely unremarkable, CT is unremarkable as well. Will get 3 view C- spine x-ray just to make sure no other areas of hardware issue or lucency, these were unremarkable. She received some medication in the ED and with those medications and specifically the muscle relaxer she felt significantimprovement in her symptoms. I suspect there is a component of compensation muscular tightness and spasm possibly from compensation from her injury but also from the sling which she has been wearing constantly. She is allowed to undo it and let it rest when she is in the chair by undoing the neck component and I think this would be very beneficial as when she does that she is no longer hunched over and tense. Discussed using Tylenol regularly as well as the methocarbamol regularly and stopping the Flexeril. She should follow-up with her PCP as well as reach out to her spine providers to discuss whether she needs any other evaluation however her exam here was reassuring, I do not appreciate any fracture malalignment of the hardware, suspect this is more musculoskeletal discomfort, muscle spasm. Patient's PCP is Lena Womack APRN. Discharge Medication List as of 04/08/2024 5:48 PM START taking these medications Details ibuprofen (Advil) 600 mg tablet Take 1 tablet by mouth every 8 hours as needed for Pain., Disp-30 tablet, R-1, Normal Complete discharge instructions per AVS which I have also verbally gone over with the patient. Return precautions were discussed with the patient; patient expressed understanding and is in agreement with plan. ASSESSMENT: 1. Neck pain 2. Radiating pain 3. Muscle spasm DISPO: Discharge to home Khris Powers APRN 04/08/242013 documented in this encounter Miscellaneous Notes * ED Triage - Nicolasa Almodovar RN - 04/08/2024 1:27 PM EST Pt arrives POV. Had spine surgery December 2022. Tripped and fell 1 week ago now feels like bone has popped out where surgery was done. Has had tingling in legs and increased pain in back. documented in this encounter Plan of Treatment Not on file documented as of this encounter Procedures Procedure Name Priority Date/Time Associated Diagnosis Comments XR CERVICAL SPINE 2 OR 3 VIEWS STAT 04/08/2024 4:[address] HEAD AND CERVICAL SPINE WO CONTRAST STAT 04/08/2024 4:[address] THORACIC SPINE WO CONTRAST STAT 04/08/2024 4:06 PM EST SEDIMENTATION RATE STAT 04/08/2024 3: 23 PM EST CBC (WITH DIFF) STAT 04/08/2024 3:23 PM EST CRP, ACUTE INFLAMMATION STAT 04/08/2024 3:22 PM EST BASIC METABOLIC PANEL STAT 04/08/2024 3:22 PM EST documented in this encounter Results * XR Cervical Spine 2 or 3 Views (04/08/2024 4:58 PM EST) [email or web address] WORKSTATION ID [id number] RAD Anatomical Region Laterality Modality C-spine N/A [...] who have questions please contact the health primary care nurse that requested your imaging first. ? Electronically signed by: Angel Baker DO, [facility] ([phone]), at 04/08/2024 5:06 PM Narrative 04/08/2024 5:06 PM EST EXAMINATION: XR [...] lung apices are clear. Procedure Note Angel Baker DO - 04/08/2024 EXAMINATION: XR CERVICAL SPINE 2 [...] patients who have questions please contactthe health primary care nurse that requested your imaging first. Electronically signed by: Angel Baker DO, [facility]([phone]), at 04/08/2024 5:06 PM Khris Powers APRN IMG DX ORDERABLES * CT Thoracic Spine wo Contrast (Generic) (04/08/2024 4:06 PM EST) WORKSTATION ID [id number] RAD Anatomical Region Laterality Modality T-spine Computed [...] who have questions please contact the health primary care nurse that requested your imaging first. ? Electronically signed by: Violet Beckwith MD, [facility] ([phone]), at 04/08/2024 4:31 PM Narrative 04/08/2024 4:31 [...] patients who have questions please contactthe health primary care nurse that requested your imaging first. Electronically signed by: Violet Beckwith MD, [facility]([phone]), at 04/08/2024 4:31 PM Khris Powers CELL MAKER IMG CT ORDERABLES * CT Head & Cervical Spine wo Contrast (Generic) (04/08/2024 4:06 PM EST) [email or web address] WORKSTATION ID [id number] [facility] Anatomical Region Laterality Modality Head Computed Tomogra [...] who have questions please contact the health primary care nurse that requested your imaging first. ? Electronically signed by: Violet Beckwith MD, [facility] ([phone]), at 04/08/2024 4:31 PM Narrative 04/08/2024 4:31 [...] patients who have questions please contactthe health primary care nurse that requested your imaging first. Electronically signed by: Violet Beckwith MD, [facility]([phone]), at 04/08/2024 4:31 PM Khris Powers APRN IMG CT ORDERABLES * Sedimentation rate (04/08/2024 3:23 PM EST) [facility] Sedimentation Rate Automated 13 2 - 39 mm/hr 04/08/2024 4:38 PM [facility] Blood VENOUS BLOOD SPECIMEN / Unknown Venipuncture / Unknown 04/08/2024 3:23 PM EST 04/08/2024 3:28 PM EST Khris Powers JACKIE HEMATOLOGY ORDERABLE S [facility] [place] [address] * (ABNORMAL) CBC (with Diff) (04/08/2024 3:23 PM EST) [facility] White Blood Cell 7.04 4.00 - 9.50 x10(3)/mc L 04/08/2024 4:38 PM [facility] Red Blood Cell 4.08 4.00 - 5.21 x10(6)/mc L 04/08/2024 4:38 PM [facility] Hemoglobin 13.2 11.7 - 15.5 g/dL 04/08/2024 4:38 PM [facility] Hematocrit 39.5 35.7 - 45.8 % 04/08/2024 4:38 PM [facility] Mean Cell Volume 96.8(H) 82.6 - 94.4 fL 04/08/2024 4:38 PM [facility] Mean Cell Hemoglobin 32.4(H) 27.1 - 32.0 pg 04/08/2024 4:38 PM [facility] Mean Cell Hemoglobin Concentration 33.4 31.7 - 35.0 g/dL 04/08/2024 4:38 PM [facility] Platelet 282 145 - 357 x10(3)/mc L 04/08/2024 4:38 PM [facility] Mean Platelet Volume 9.5 7.6 - 12.9 fL 04/08/2024 4:38 PM [facility] RDW Standard Deviation 42.5 37.0 - 46.0 fL 04/08/2024 4:38 PM [facility] RDW coefficient of variation 11.9 11.5 - 14.1 % 04/08/2024 4:38 PM [facility] NRBC% auto 0.0 % 04/08/2024 4:38 PM [facility] NRBC Absolute <0.01 <0.01 x10(3)/mc L 04/08/2024 4:38 PM [facility] Neutrophil % 35.5 % 04/08/2024 4:38 PM [facility] Neutrophil Absolute (ANC) - Automated 2.50 1.70 - 6.10 x10(3)/mc L 04/08/2024 4:38 PM [facility] Lymph % 53.0 % 04/08/2024 4:38 PM [facility] Lymph Absolute 3.73(H) 0.90 - 3.20 x10(3)/mc L 04/08/2024 4:38 PM [facility] Monocyte % 7.5 % 04/08/2024 4:38 PM [facility] Monocyte Absolute 0.53 0.30 - 0.90 x10(3)/mc L 04/08/2024 4:38 PM [facility] Eos % 3.4 % 04/08/2024 4:38 PM [facility] Eos Absolute 0.24 0.00 - 0.40 x10(3)/mc L 04/08/2024 4:38 PM [facility] Basophil % 0.3 % 04/08/2024 4:38 PM [facility] Baso Absolute <0.04 0.00 - 0.10 x10(3)/mc L 04/08/2024 4:38 PM [facility] Immature Gran % 0.3 % 4:38 PM [facility] Immature Gran Absolute <0.04 0.00 - 0.04 x10(3)/mc L 04/08/2024 4:38 PM EST [facility] Blood VENOUS BLOOD SPECIMEN / Unknown Venipuncture / Unknown 04/08/2024 3:23 PM EST 04/08/2024 3:28 PM EST Khris Bacaicoa CELL MAKER HEMATOLOGY ORDERABLE S [facility] [place] [address] * CRP, acute inflammation (04/08/2024 3:22 PM EST) Pathologist [facility] C-Reactive Protein <3.0 <=4.9 mg/L 04/08/2024 3:56 PM EST [facility] Blood VENOUS BLOOD SPECIMEN / Unknown Venipuncture / Unknown 04/08/2024 3:22 PM EST 04/08/2024 3:28 PM EST Khris Bacaicoa CELL MAKER CHEMISTRY ORDERABLES [facility] [place] [address] * Basic Metabolic Panel (04/08/2024 3:22 PM EST) Pathologist [facility] Glucose 133 65 - 199 mg/dL 04/08/2024 3:56 PM EST [facility] Comment:Glucose Concentratio n >=200 mg/dL plus symptoms is consistent with Diabetes Mellitus. Blood Urea Nitrogen 16 8 - 18 mg/dL 04/08/2024 3:56 PM EST [facility] Creatinine 0.75 0.70 - 1.20 mg/dL 04/08/2024 3:56 PM EST [facility] Sodium 140 135 - 145 mMol/L 04/08/2024 3:56 PM EST [facility] Potassium 4.2 3.5 - 5.0 mMol/L 04/08/2024 3:56 PM EST [facility] Chloride 104 98 - 107 mMol/L 04/08/2024 3:56 PM [facility] Carbon Dioxide 24 22 - 31 mMol/L 04/08/2024 3:56 PM EST [facility] Anion Gap 12 5 - 15 mMol/L 04/08/2024 3:56 PM EST [facility] Calcium 9.5 8.5 - 10.5 mg/dL 04/08/2024 3:56 PM EST [facility] Est Glomerular Filtration Rate - Female 90 mL/min/1. 73 m?? 04/08/2024 3:56 PM EST [facility] Comment: This patient's estimated GFR [...] PM EST 04/08/2024 3:28 PM EST Khris Montanamarcadonay MEJIA CHEMISTRY ORDERABLES [facility] [place] [address] documented in this encounter Visit Diagnoses Diagnosis Neck pain Cervicalgia Radiating pain Generalized pain Muscle spasm Spasm of muscle documented in this encounter Administered Medications Inactive Administered Medications - up to 3 most recent administrations Medication Order MAR Action Action Date Dose Rate Site acetaminophen (Tylenol) tablet 975 mg 975 mg (rounded from 1,000 mg), Oral, ONCE, 1 dose, On 04/08/24 at 1505, - Maximum dose of acetaminophen is 4,000 mg from all sources in 24 hours. - Unless otherwise specified, when ordered PRN for pain, acetaminophen should be given first if other PRN pain medications are ordered., STAT Given 04/08/2024 3:38 PM EST 975 mg methocarbamoL (Robaxin) tablet 750 mg 750 mg, Oral, ONCE, 1 dose, On 04/08/24 at 1505, STAT Given 04/08/2024 3:38 PM EST 750 mg documented in this encounter Active and Recently Administered Medications Due to Daylight Saving Time, this section may contain times in both EDT and EST. Scheduled Medication Order 04/06/2024 04/07/2024 04/08/2024 acetaminophen (Tylenol) tablet 975 mg (COMPLETED) 975 mg (rounded from 1,000 mg), Oral, ONCE, 1 dose, On 04/08/24 at 1505, - Maximum dose of acetaminophen is 4,000 mg from all sources in 24 hours. - Unless otherwise specified, when ordered PRN for pain, acetaminophen should be given first if other PRN pain medications are ordered., STAT 1538 (Given - Provid er: Lexy Yates LPN) methocarbamoL (Robaxin) tablet 750 mg (COMPLETED) 750 mg, Oral, ONCE, 1 dose, On 04/08/24 at 1505, STAT 1538 (Given - Provid er: Lexy Yates LPN) documented in this encounter Care Teams Sales Agent Relationship Specialty Start Date End Date None None PCP - General 04/08/24 documented as of this encounter
--- OUTSIDE RECORDS SUMMARY | 2024-06-21 20:08 | XMS_ITS | Encounter Summary ---
Author Organization Counts Include [address] At [facility] Address [facility] [place] [address] Care Team Providers Care Wool Hat Forming Machine Tender Name Role Phone Lena Womack APRN Primary Care Provider [phone] Reason for Visit * Reason Comments Extremity Weakness * Auth/Cert (Routine) Specialty Diagnoses / Procedures Referred By Cosmo cortez Referred To Contact Diagnoses Cervical myelopathy Procedures ER IPI Tien Zurita MD [facility] [place] [address] [facility] Referral ID Status Reason Start Date Expiration Date Visits Re quested Visits Authorized [id number] 1 1 Encounter Details Date Type Department Care Team (Latest Contact Info) Description 11/30/2022 9:14 PM EDT - 12/16/2022 12:59 PM EDT Hospital Encounter Neuro Special Care Unit Level 5 [place] [address] Calista Barrera MD [facility] [place] [address] Tien Zurita MD [facility] [place] [address] History of weakness of extremity (Primary Dx); Cervical myelopathy; Stenosis of cervical spine with myelopathy; Cervical spondylosis without myelopathy Discharge Disposition: Long-Term Facility Social History Tobacco Use Types Packs/Day [...] known to NSGY service; who presented to [facility] ED per recommendation from NSGY clinic with [...] services and deemed appropriate for discharge to [facility]. Patient was discharged in stable condition 12/16/22 [...] who have questions please contact the health care companion that requested your imaging first. Electronically signed by: Elizabeth Fishman MD, [facility] ([phone]), at 11/30/2022 9:[address] Thoracic Spine [...] who have questions please contact the health care companion that requested your imaging first. Electronically signed by: Elizabeth Fishman MD, [facility] ([phone]), at 12/01/2022 12:[address] Lumbar Spine [...] who have questions please contact the health care companion that requested your imaging first. Electronically signed by: Elizabeth Fishman [facility] ([phone]), at 12/01/2022 12:53 AM MRI Cervical Spine [...] who have questions please contact the health care companion that requested your imaging first. Thoracic Spine [...] who have questions please contact the health care companion that requested your imaging first. Lumbar Spine [...] who have questions please contact the health care companion that requested your imaging first. Chest PA & Lateral (Generic) (Exam End: 12/01/2022 11:48 AM) Impression No acute findings. Thank you for letting us participate in the care of this patient. If you are a health care provider and have any questions regarding this report, please contact the number below. For patients who have questions please contact the health care companion that requested your imaging first. Cervical Spine [...] who have questions please contact the health care companion that requested your imaging first. Pending Studies and Lab Data: NA Discharge Condition: Stable Discharge to: [facility] Future Appointments and Orders Future Appointments and Orders Future Appointments Provider Department Dept Phone 01/17/2023 1:40 PM Tien Zurita MD [facility] Sp[facility] at [facility] Arrive at: Campaign Fundraiser Area 3D [phone] Future Orders Complete By Expires XR Cervical Spine 2 or 3 Views [[id number] Custom] 01/08/2023 (Approximate) 07/10/2023 Process Instructions: Scheduling Instructions: Questions: Reason for exam and clinical history: s/p C4-T2 PSIF, C5-7 laminectomy Clinical information / wood questions for radiologist: Where will study be performed?: [facility] Radiology Portable exam?: Stat read required?: [...] anticoagulant, and non-steroidal anti-inflammatory (NSAIDs) drugs. Common gwwa-jaq-xljwzbu medications which should be avoided include Aspirin, [...] to pass. These medications can be obtained jxas-eik-wmyvcyc and their use is recommended on an [...] retention Constipation not relieved by diet and/or qart-ayz-ayjqlui stool softeners and laxatives Nausea/vomiting (upset stomach) [...] have tobacco dependence clinics in these locations: [facility] for Tobacco-Free Communities: [place] [facility] Tobacco Treatment [facility], [place] Other Programs at [facility] in [place] Living Free of Tobacco support group: For anyone who has quit tobacco or is considering quitting tobacco. [facility] Health Education Center, Level 4, [place] 3:30 to 4:30 p.m. on the tuesday of every month. Other Programs in the Area [facility] in [place] One-on-one counseling, hypnosis. Calista Lynch [facility] in [place], [place] One-on-one counseling, QuitLine, classes. Sailaja Ceballosowenblossom [facility]: One-on-one counseling. All ages and incomes eligible. [facility]: Classes & support group. Surendra Owens [facility] in [place], [place] One-on-one counseling, QuitLine, classes, hypnosis therapy. Kaylee Trejo Information about Quitting Smoking and Tobacco See our Quitting Smoking - Information and Materials page (http://[email or web address]/medical- information/smoking/information_on_quitting_smoking.html) for educational information about quitting smoking, downloadable smoking cessation materials, podcasts, websites, helplines, and more. FOLLOW UP PLAN: Future Appointments Date Time Provider Department Center 01/17/2023 1:40 PM Tien Zurita MD [facility] Pain Sp [facility] Incision: [x] Please follow up for staple removal approximately 2 weeks after the operation on 12/23 with yourPrimary Care Provider or with the Neurosurgery CHILD CARE CENTRE DIRECTOR/RN. Your sutures/parminder may also be removed at rehab. Appointments: Please follow up in the Neurosurgery Clinic on 01/17/2023 at 1:40pm. Please call the Neurosurgery Office at [phone] if you do not receive a scheduled appointment within two weeks. Your follow-up appointment will be with: [] Dr. Krishna [] Dr. Snowden [x] Dr. Zurita [] Dr. Duenas [] Dr. Jacques [] Dr. Solis [] Associate Provider Follow-up Imaging: XR - Cervical HOW TO REACH NEUROSURGERY Office Hours: Tuesday through Tuesday, 8am-5pm. Call . On weekends or after office hours: Call [phone] and ask the chemical plant operator to page the Neurosurgery Resident/Advanced Practice Provider door to door salesperson. Neurosurgery Providers Adult Neurosurgery Dr. Juan Duenas Pediatric Neurosurgery Dr. Calista Herrmann Advanced Practice Providers Daniela Troy, Nurse Practitioner (outpatient) Christina Pagan, Physician Environmental Field Services Technician (inpatient/outpatient: neuro-oncology) Vikki Bowen, Physician Environmental Field Services Technician (inpatient) Seb Yuen, Nurse Practitioner (outpatient: pediatric) Joan Kwon, Nurse Practitioner (outpatient: vascular) Elenita Nuñez, Physician Environmental Field Services Technician (outpatient: spine) Dioni Duong, Nurse Practitioner (inpatient/outpatient) Angel Hankins, Physician Environmental Field Services Technician (outpatient) Outpatient Nurses Laura Womack MD 12/16/2022 [...] anticoagulant, and non-steroidal anti-inflammatory (NSAIDs) drugs. Common leyb-rhq-mcaisnm medications which should be avoided include Aspirin, [...] to pass. These medications can be obtained yych-thi-iqazpmz and their use is recommended on an [...] retention Constipation not relieved by diet and/or qsya-ckv-getphax stool softeners and laxatives Nausea/vomiting (upset stomach) [...] have tobacco dependence clinics in these locations: [facility] for Tobacco-Free Communities: [place] Padilla [facility] Tobacco Treatment [place], [place] Other Programs at [facility] in [place] Living Free of Tobacco support group: For anyone who has quit tobacco or is considering quitting tobacco. [facility] Health Education Center, Level 4, [place] 3:30 to 4:30 p.m. on the tuesday of every month. Other Programs in the Area [facility] in [place] One-on-one counseling, hypnosis. Calista Lynch [facility] in [place], [place] One-on-one counseling, QuitLine, classes. Sailaja Palma [facility]: One-on-one counseling. All ages and incomes eligible. [facility]: Classes & support group. Surendra Owens [facility] in [place], [place] One-on-one counseling, QuitLine, classes, hypnosis therapy. Kaylee Trejo Information about Quitting Smoking and Tobacco See our Quitting Smoking - Information and Materials page (http://[email or web address]/medical- information/smoking/information_on_quitting_smoking.html) for educational information about quitting smoking, downloadable smoking cessation materials, podcasts, websites, helplines, and more. FOLLOW UP PLAN: Future Appointments Date Time Provider Department Center 01/17/2023 1:40 PM Tien Zurita MD [facility] Pain Sp [facility] Incision: [x] Please follow up for staple removal approximately 2 weeks after the operation on 12/23 with yourPrimary Care Provider or with the Neurosurgery CHILD CARE CENTRE DIRECTOR/RN. Your sutures/parminder may also be removed at rehab. Appointments: Please follow up in the Neurosurgery Clinic on 01/17/2023 at 1:40pm. Please call the Neurosurgery Office at [phone] if you do not receive a scheduled appointment within two weeks. Your follow-up appointment will be with: [] Dr. Krishna [] Dr. Snowden [x] Dr. Zurita [] Dr. Duenas [] Dr. Jacques [] Dr. Solis [] Associate Provider Follow-up Imaging: XR - Cervical HOW TO REACH NEUROSURGERY Office Hours: Tuesday through Tuesday, 8am-5pm. Call . On weekends or after office hours: Call [phone] and ask the chemical plant operator to page the Neurosurgery Resident/Advanced Practice Provider door to door salesperson. Neurosurgery Providers Adult Neurosurgery Dr. Juan Duenas Pediatric Neurosurgery Dr. Calista Herrmann Advanced Practice Providers Daniela Troy, Nurse Practitioner (outpatient) Christina Pagan, Physician Environmental Field Services Technician (inpatient/outpatient: neuro-oncology) Vikki Bowen, Physician Environmental Field Services Technician (inpatient) Seb Yuen, Nurse Practitioner (outpatient: pediatric) Joan Kwon, Nurse Practitioner (outpatient: vascular) Elenita Nuñez, Physician Environmental Field Services Technician (outpatient: spine) Dioni Duong, Nurse Practitioner (inpatient/outpatient) Angel Hankins, Physician Environmental Field Services Technician (outpatient) Outpatient Nurses Laura Loyd documented in [...] 12/16/2022 10:28 AM EDT Office of Care Management/Heating And Ventilation Engineer Patient Name: Katheryn Carranza : 1960 [facility]16[facility]22 Patient to transport to facility via private car around 12:00 No MD to MD report necessary Please call Nursing Report to , ask for wool cleaner. Info to accompany patient: Copies of Medication Administration Records and IV sheets for past 10 days. Plan: Heating And Ventilation Engineer will be available to the patient and Fish Agent-RN and/or Social Workerfor further assistance. Patient will be discharged to: [facility] Yamini Chandler * Ashley Kwon RN - 12/16/2022 10:18 AM EDTSummary: NOTE OF MEDICAL NECESSITY FOR AMBULANCE TRANSPORT Physician Certification Statement for Non-Emergency Ambulance Services Section I - General Information Katheryn Carranza 1960 Medicare Number: [id number] Transport Date: 12/16/22 (PCS is valid for round trips on this date and for all repetitive trips in the 60-day range as noted below.) Origin: [facility] Destination: [facility] Is the patient's stay covered under Medicare [...] van (i.e. seated during transport, without medical logistics specialist or monitoring?): No 4) In addition to complete questions 1-3 above, please select any of the following conditions that apply: *Note: supporting documentation for any boxes checked must be maintained in the patient's medical records Moderate/severe pain on movement shower room attendant required Unable to tolerate seated position [...] the Centers of Medicare and Medicaid Services ([facility]) to support the determination of medical [...] was signed by Registered Nurse * Ashley wKon RN - 12/16/2022 10:17 AM EDT Ambulance transportation is medically necessary at discharge related to s/p surgical intervention for C-spine stenosis, mod/severe pain on movement, unable to tolerated seated position for time of transport, medical logistics specialist required.. I have discussed Medicare/Private Insurance reimbursement guidelines for ambulance transport. I have also discussed need to accept the closest facility able to meet clinical care needs of patient. Patient/support system (name of individual)pt and verbalize understanding of their potential financial obligation and agree with ambulance transport. Ashley Kwon MSN-Ed, RN ACM child protection specialist Office of Care Management Pager #[phone] * Ashley Kwon RN - 12/16/2022 10:14 AM EDTSkenton: ANGELITA PASRR [facility] PRE-ASSESSMENT SCREENING AND RESIDENT REVIEW (PASRR): LEVEL [...] 1960 Where is the individual currently located? [facility] To which Nursing Facility is the individual seeking admission? [facility] Part A - Exemption If the [...] form must be completed by the admitting [place] health care facility in full and submitted. Part B - [...] a psychiatric disorder or substance use disorder? Quechan YES if any of the subcategories below [...] required. Please notify the PASRR Coordinator, Noemi [facility], [address] [place] [address] , or , or call . Part [...] PASRR coordinator, [address], [address] [facility] [place] [address] or FAX , or call Completed copies of this form have been distributed to: [facility] nursing facility Name & Title of Person Completing Form: Ashley Kwon RN Signature of Person Completing Form: Ashley Kwon MSN-Ed, RN ACM child protection specialist Office of Care Management Pager #[phone] Hospital/Facility Address: [address] [place] [address] Phone #: [phone] Email: [email or web address] Date: 12/16/22 Please mail or fax all original signed LEVEL I PASRR forms to: Department of Mental Health, Attn: PASRR Coordinator, [address] [place] [phone] or * Sudeep Womack MD - 12/16/2022 5:06 AM EDT NEUROSURGERY PROGRESS NOTE PLEASE PAGE [phone] WITH QUESTIONS ID: Katheryn Carranza is a [...] drains GEN: NAD NEURO: Speech fluent MOTOR: RUE:5/5 LUE:5/5 RLE: 5 LLE: HF 4-/5, KE 5, DF/PF 4+ [...] control -Diet: Regular diet. -Activity as tolerated. -PT/OT/PARTS ROOM ASSISTANT : Anticipated Discharge Disposition (PT): senior care facility, swing bed rehabilitation facility (12/14/22 1051)} -Dispo: MR for d/c Please page [phone] with questions/concerns for in-house NSGY patients Sudeep Womack MD 12/16/2022 * Louie Rosario MD - 12/15/2022 10:12 AM EDT NEUROSURGERY PROGRESS NOTE PLEASE PAGE [phone] WITH QUESTIONS ID: Katheryn Carranza is a [...] control -Diet: Regular diet. -Activity as tolerated. -PT/OT/PARTS ROOM ASSISTANT : Anticipated Discharge Disposition (PT): senior care facility, swing bed rehabilitation facility (12/14/22 0043)} -Dispo: MR for d/c Please page [phone] with questions/concerns for in-house NSGY patients MEDICATIONS: [...] Fall history: had a fall 4 days RETAIL LOSS PREVENTION SPECIALIST Precautions/Special Considerations: at risk to fall, SBP [...] the current findings, Anticipated Discharge Disposition (PT): senior care facility, swing bed rehabilitation facility when medically [...] (TE-F x 3) Gauri Villanueva PT Pager: [phone] Physical Therapy Inpatient Rehabilitation Department * Lelia [...] and therapy goals Anticipated Discharge Disposition (OT): senior care facility Equipment Recommendations: Equipment Needs Upon Discharge [...] Minutes, Occupational Therapy: 30 (2x schm) Pager: [phone] NALLELY Arriola Occupational Therapy Rehabilitation Department * Louie Rosario MD - 12/14/2022 7:02 AM EDT NEUROSURGERY PROGRESS NOTE PLEASE PAGE [phone] WITH QUESTIONS ID: Katheryn Carranza is a [...] control -Diet: Regular diet. -Activity as tolerated. -PT/OT/PARTS ROOM ASSISTANT : Anticipated Discharge Disposition (PT): senior care facility, swing bed rehabilitation facility (12/09/22 4941)} -Dispo: MR for d/c Please page [phone] with questions/concerns for in-house NSGY patients MEDICATIONS: [...] scheduled for a follow up nutrition evaluation. Rn Disease Management met with pt at bedside. Per documentation patient has excellent PO intakes recorded at 75-100% over the past 3 days. According to Healthcare Market[employer]aker software they have ordered an average ~2671kcals/day within the same duration. Pt shares an okay appetite and eats all of their breakfast and less of their lunch and dinner d/t yucky entree's and being picky. Rn Disease Management suggested adding afternoon snacks to help with afternoon hunger, pt agreed. Rn Disease Management also informed pt of access to the [...] questions answered at this time Aimee Leung Medicine Technologist * Caitlin Humphrey MSW - 12/13/2022 11:50 AM EDT A P SUPERVISOR completed the [place] with patient and spouse, Prieto. Application and financial verification given to LTC Heating And Ventilation Engineer, Jade Valente to upload to Department of [place] Health Access ([place]). Spouse has made two calls to his employer's HR department to see if they would be able to get patient's new [facility]'s ID member number and group number instead of waiting for new insurance cards to show up in their mail. Patient and family also requesting Ashley BAKER CM [facility], RN CM informed. A P SUPERVISOR to continue to provide psychosocial supports for patient and family if/when needed. * Ashley Kwon RN - 12/13/2022 11:07 AM EDT Pt/family would like to expand the search for SNF to include: [facility] ([facility]) [address] [place] [address] P: [phone] F: [phone] LYUDMILA: 12/13/22 Ashley Kown MSN-Ed, RN ACM child protection specialist Office of Care Management Pager #[phone] * Louie Rosario MD - 12/13/2022 7:00 AM EDT NEUROSURGERY PROGRESS NOTE PLEASE PAGE [phone] WITH QUESTIONS ID: Katheryn Carranza is a [...] control -Diet: Regular diet. -Activity as tolerated. -PT/OT/PARTS ROOM ASSISTANT : Anticipated Discharge Disposition (PT): senior care facility, swing bed rehabilitation facility (12/09/22 9085)} -Dispo: MR for d/c Please page [phone] with questions/concerns for in-house NSGY patients MEDICATIONS: [...] AM EDT NEUROSURGERY PROGRESS NOTE PLEASE PAGE [phone] WITH QUESTIONS ID: Katheryn Carranza is a 62 y.o. female with CSM who presented with worsening weakness and urinary incontinence since a fall 4 days prior to presentation. HD# 12 12/02/22 Dr. Mirandat: C4-T2 PSIF, C5-7 laminectomies [...] -Macrobid x 5d for UTI started 12/04 -PT/OT/PARTS ROOM ASSISTANT : Anticipated Discharge Disposition (PT): senior care facility, swing bed rehabilitation facility (12/09/22 1417)} -Dispo: MR for d/c Please page [phone] with questions/concerns for in-house NSGY patients MEDICATIONS: [...] Number: [phone] The following Message was sent: [FYI] - Callback:[phone] - just an fyi, pt HR has been resting >100 frequently over past 48hr. - Sapphire Crawford The following status was returned from the chief service observer: Page for [phone] successfully sent to [phone] having status of [...] MD aware. 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 OOB with all meals, and most of day, must be encouraged and firm with this per team. No purewick per team, continue maximizing her independence. PLAN MOVING FORWARD: Q4VS Q4NC Encourage OOB Pain control Placement * Seb Abernathy PA - 12/11/2022 5:19 AM EDT NEUROSURGERY PROGRESS NOTE PLEASE PAGE [phone] WITH QUESTIONS ID: Katheryn Carranza is a [...] -Must encourage mobilization with PTOT and nursing -PT/OT/PARTS ROOM ASSISTANT : Anticipated Discharge Disposition (PT): senior care facility, swing bed rehabilitation facility (12/09/22 5787)} Please page [phone] with questions/concerns for in-house NSGY patients IMAGING: [...] who have questions please contact the health care companion that requested your imaging first. Electronically signed by: Elizabeth Fishman MD, [facility] ([phone]), at 11/30/2022 9:[address] Thoracic Spine [...] who have questions please contact the health care companion that requested your imaging first. Electronically signed by: Elizabeth Fishman MD, [facility] ([phone]), at 12/01/2022 12:[address] Lumbar Spine [...] who have questions please contact the health care companion that requested your imaging first. Electronically signed by: Elizabeth Fishman MD, [facility] ([phone]), at 12/01/2022 12:53 AM MRI Cervical Spine [...] who have questions please contact the health care companion that requested your imaging first. Thoracic Spine [...] who have questions please contact the health care companion that requested your imaging first. Lumbar Spine [...] who have questions please contact the health care companion that requested your imaging first. Chest PA & Lateral (Generic) (Exam End: 12/01/2022 11:48 AM) Impression No acute findings. Thank you for letting us participate in the care of this patient. If you are a health care provider and have any questions regarding this report, please contact the number below. For patients who have questions please contact the health care companion that requested your imaging first. Cervical Spine [...] who have questions please contact the health care companion that requested your imaging first. CATIONS: Scheduled [...] Humphrey MSW - 12/10/2022 10:44 AM EDT A P SUPERVISOR met with patient and spouse, Prieto Carranza and began the [place] ~Choices for Care. Spouse to bring in the last of the needed financial verification documentation this evening and once received, A P SUPERVISOR will give completed application to the Office of Care Management ~[facility] Medicaid Heating And Ventilation Engineer to upload to the Department of [place] Access ([place]). Patient also signed an authorized delivery representative form naming her spouse as her authorized rep. A P SUPERVISOR to follow up with patient and spouse and complete long-term care Medicaid application. A P SUPERVISOR did contact the Department of Aging & Independent Living (TONI) state nurse, Sylvia Lerma RN, [facility]: [phone], who is the clinical nurse that will qualify this patient physically for this program, to let her know of patient's pending application. A P SUPERVISOR also informed her of patient'schoice of a CM agency: [facility] [place] [facility]. * Louie Rosario MD - 12/10/2022 9:31 AM EDT NEUROSURGERY PROGRESS NOTE PLEASE PAGE [phone] WITH QUESTIONS ID: Katheryn Carranza is a 62 y.o. female with CSM who presented with worsening weakness and urinary incontinence since a fall 4 days prior to presentation. HD# 10 POD # 8 Days Post-Op 12/02/22 Dr. Zurita: C4-T2 PSIF, [...] -Macrobid x 5d for UTI started 12/04 -PT/OT/PARTS ROOM ASSISTANT : Anticipated Discharge Disposition (PT): senior care facility, swing bed rehabilitation facility (12/09/22 1417)} Please page [phone] with questions/concerns for in-house NSGY patients IMAGING: [...] who have questions please contact the health care companion that requested your imaging first. Electronically signed by: Elizabeth Fishman MD, [facility] ([phone]), at 11/30/2022 9:[address] Thoracic Spine [...] who have questions please contact the health care companion that requested your imaging first. Electronically signed by: Elizabeth Fishman MD, [facility] ([phone]), at 12/01/2022 12:[address] Lumbar Spine [...] who have questions please contact the health care companion that requested your imaging first. Electronically signed by: Elizabeth Fishman MD, [facility] ([phone]), at 12/01/2022 12:53 AM MRI Cervical Spine [...] who have questions please contact the health care companion that requested your imaging first. Thoracic Spine [...] who have questions please contact the health care companion that requested your imaging first. Lumbar Spine [...] who have questions please contact the health care companion that requested your imaging first. Chest PA & Lateral (Generic) (Exam End: 12/01/2022 11:48 AM) Impression No acute findings. Thank you for letting us participate in the care of this patient. If you are a health care provider and have any questions regarding this report, please contact the number below. For patients who have questions please contact the health care companion that requested your imaging first. Cervical Spine [...] who have questions please contact the health care companion that requested your imaging first. CATIONS: Scheduled [...] C6-7, C7-T1, T1-2 3. Bilateral posterior instrumentation, Pure[employer]ot[employer] Infinity, with stereotactic navigation, C4-T2 4. Local [...] was aware though failed tocommunicate to staff command and control officer, education provided on importance of calling for assist in the future to insure skin protection. 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 Total Minutes, Physical Therapy: 57 ([id number]) Billing Code: [id number] Kenyon Patrick PTA Pager: [phone] Physical Therapy Inpatient Rehabilitation Department * Louie Rosario MD - 12/09/2022 6:55 AM EDT NEUROSURGERY PROGRESS NOTE PLEASE PAGE [phone] WITH QUESTIONS ID: Katheryn Carranza is a [...] -Macrobid x 5d for UTI started 12/04 -PT/OT/PARTS ROOM ASSISTANT : Anticipated Discharge Disposition (PT): senior care facility, swing bed rehabilitation facility, acute rehabilitation facility (12/06/22 1035)} Please page [phone] with questions/concerns for in-house NSGY patients IMAGING: [...] who have questions please contact the health care companion that requested your imaging first. Electronically signed by: Elizabeth Fishman MD, [facility] ([phone]), at 11/30/2022 9:[address] Thoracic Spine [...] who have questions please contact the health care companion that requested your imaging first. Electronically signed by: Elizabeth Fishman MD, [facility] ([phone]), at 12/01/2022 12:[address] Lumbar Spine [...] who have questions please contact the health care companion that requested your imaging first. Electronically signed by: Elizabeth Fishman MD, [facility] ([phone]), at 12/01/2022 12:53 AM MRI Cervical Spine [...] who have questions please contact the health care companion that requested your imaging first. Thoracic Spine [...] who have questions please contact the health care companion that requested your imaging first. Lumbar Spine [...] who have questions please contact the health care companion that requested your imaging first. Chest PA & Lateral (Generic) (Exam End: 12/01/2022 11:48 AM) Impression No acute findings. Thank you for letting us participate in the care of this patient. If you are a health care provider and have any questions regarding this report, please contact the number below. For patients who have questions please contact the health care companion that requested your imaging first. Cervical Spine [...] who have questions please contact the health care companion that requested your imaging first. CATIONS: Scheduled [...] Patient screened for hospital length of stay. Rn Disease Management attempted to visit patient but was unable [...] unless consulted in the interim. Myla Goldman [phone] * Ashley Kwon RN - 12/08/2022 2:13 PM EDT Based on discussions with the multi-disciplinary healthcare team, the patient would benefit from SNF level of care at discharge. I have met with the patient to: discuss discharge planning needs. provide the [facility], Office of Care Management letter from the Diesel Retrofit Installer pertaining to rehab referrals. provide a letter describing our affiliations within the [facility] and educate about their right to choose where referrals are sent. provide the CMS Star Quality Rating handout. review the different levels of rehab including SNF, swing, and acute. provide a list of facilities within their preferred geographic area. request that they provide at least three choices for referral. They have requested referrals to: [facility] [address] [address] [facility] ([facility]) [address], [place] [address] [facility] ([facility]) [address] [place] [address] LYUDMILA: 12/08/22 Does patient have COVID vaccine card: Yes; Copy obtained: No Note routed to a Heating And Ventilation Engineer who will communicate referrals to facilities and provide any required information. Ashley Kwon MSN-Ed, RN ACM child protection specialist Office of Care Management Pager #[phone] * Lelia Carballo OTA - 12/08/2022 10:05 [...] was aware though failed tocommunicate to staff command and control officer, education provided on importance of calling for [...] and therapy goals Anticipated Discharge Disposition (OT): senior care facility Equipment Recommendations: Equipment Needs Upon Discharge [...] Minutes, Occupational Therapy: 25 (2x schm) Pager: [phone] NALLELY Arriola Occupational Therapy Rehabilitation Department * Louie Rosario MD - 12/08/2022 6:47 AM EDT NEUROSURGERY PROGRESS NOTE PLEASE PAGE [phone] WITH QUESTIONS ID: Katheryn Carranza is a [...] -Macrobid x 5d for UTI started 12/04 -PT/OT/PARTS ROOM ASSISTANT : Anticipated Discharge Disposition (PT): senior care facility, swing bed rehabilitation facility, acute rehabilitation facility (12/06/22 1035)} Please page [phone] with questions/concerns for in-house NSGY patients IMAGING: [...] who have questions please contact the health care companion that requested your imaging first. Electronically signed by: Elizabeth Fishman MD, [facility] ([phone]), at 11/30/2022 9:[address] Thoracic Spine [...] who have questions please contact the health care companion that requested your imaging first. Electronically signed by: Elizabeth Fishman MD, [facility] ([phone]), at 12/01/2022 12:[address] Lumbar Spine [...] who have questions please contact the health care companion that requested your imaging first. Electronically signed by: Elizabeth Fishman MD, [facility] ([phone]), at 12/01/2022 12:53 AM MRI Cervical Spine [...] who have questions please contact the health care companion that requested your imaging first. Thoracic Spine [...] who have questions please contact the health care companion that requested your imaging first. Lumbar Spine [...] who have questions please contact the health care companion that requested your imaging first. Chest PA & Lateral (Generic) (Exam End: 12/01/2022 11:48 AM) Impression No acute findings. Thank you for letting us participate in the care of this patient. If you are a health care provider and have any questions regarding this report, please contact the number below. For patients who have questions please contact the health care companion that requested your imaging first. Cervical Spine [...] who have questions please contact the health care companion that requested your imaging first. CATIONS: Scheduled [...] AM EDT NEUROSURGERY PROGRESS NOTE PLEASE PAGE [phone] WITH QUESTIONS ID: Katheryn Carranza is a [...] -Macrobid x 5d for UTI started 12/04 -PT/OT/PARTS ROOM ASSISTANT : Anticipated Discharge Disposition (PT): senior care facility, swing bed rehabilitation facility, acute rehabilitation facility (12/06/22 1035)} -DISPOSITION: pending course -FULL CODE Please page [phone] with questions/concerns for in-house NSGY patients IMAGING: [...] who have questions please contact the health care companion that requested your imaging first. Electronically signed by: Elizabeth Fishman MD, [facility] ([phone]), at 11/30/2022 9:[address] Thoracic Spine [...] who have questions please contact the health care companion that requested your imaging first. Electronically signed by: Elizabeth Fishman MD, [facility] ([phone]), at 12/01/2022 12:[address] Lumbar Spine [...] who have questions please contact the health care companion that requested your imaging first. Electronically signed by: Elizabeth Fishman MD, [facility] ([phone]), at 12/01/2022 12:53 AM MRI Cervical Spine [...] who have questions please contact the health care companion that requested your imaging first. Thoracic Spine [...] who have questions please contact the health care companion that requested your imaging first. Lumbar Spine [...] who have questions please contact the health care companion that requested your imaging first. Chest PA & Lateral (Generic) (Exam End: 12/01/2022 11:48 AM) Impression No acute findings. Thank you for letting us participate in the care of this patient. If you are a health care provider and have any questions regarding this report, please contact the number below. For patients who have questions please contact the health care companion that requested your imaging first. Cervical Spine [...] who have questions please contact the health care companion that requested your imaging first. 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 Time IN / OUT: 9892-0396 Total Minutes, Physical Therapy: 28 Billing Code: 2 TA Seb Dickens DPT Pager: [phone] Physical Therapy Inpatient Rehabilitation Department * Tien Zurita MD - 12/06/2022 7:28 AM EDT NEUROSURGERY PROGRESS NOTE PLEASE PAGE [phone] WITH QUESTIONS ID: Katheryn Carranza is a [...] -Macrobid x 5d for UTI started 12/04 -PT/OT/PARTS ROOM ASSISTANT : Anticipated Discharge Disposition (PT): senior care facility (12/04/22 1010)} -DISPOSITION: pending course -FULL CODE Please page [phone] with questions/concerns for in-house NSGY patients IMAGING: [...] who have questions please contact the health care companion that requested your imaging first. Electronically signed by: Elziabeth Fishman MD, [facility] ([phone]), at 11/30/2022 9:[address] Thoracic Spine [...] who have questions please contact the health care companion that requested your imaging first. Electronically signed by: Elizabeth Fishman MD, [facility] ([phone]), at 12/01/2022 12:[address] Lumbar Spine [...] who have questions please contact the health care companion that requested your imaging first. Electronically signed by: Elizabeth Fishman MD, [facility] ([phone]), at 12/01/2022 12:53 AM MRI Cervical Spine [...] who have questions please contact the health care companion that requested your imaging first. Thoracic Spine [...] who have questions please contact the health care companion that requested your imaging first. Lumbar Spine [...] who have questions please contact the health care companion that requested your imaging first. Chest PA & Lateral (Generic) (Exam End: 12/01/2022 11:48 AM) Impression No acute findings. Thank you for letting us participate in the care of this patient. If you are a health care provider and have any questions regarding this report, please contact the number below. For patients who have questions please contact the health care companion that requested your imaging first. Cervical Spine [...] who have questions please contact the health care companion that requested your imaging first. CATIONS: Scheduled [...] pain on left side Breast hypertrophy Louie oRsario MD 12/06/2022 I have seen and examined [...] AM EDT NEUROSURGERY PROGRESS NOTE PLEASE PAGE [phone] WITH QUESTIONS ID: Katheryn Carranza is a [...] -Macrobid x 5d for UTI started 12/04 -PT/OT/PARTS ROOM ASSISTANT : Anticipated Discharge Disposition (PT): senior care facility (12/04/22 1010)} -DISPOSITION: pending course -FULL CODE Please page [phone] with questions/concerns for in-house NSGY patients IMAGING: [...] who have questions please contact the health care companion that requested your imaging first. Electronically signed by: Elizabeth Fishman MD, [facility] ([phone]), at 11/30/2022 9:[address] Thoracic Spine [...] who have questions please contact the health care companion that requested your imaging first. Electronically signed by: Elizabeth Fishman MD, [facility] ([phone]), at 12/01/2022 12:[address] Lumbar Spine [...] who have questions please contact the health care companion that requested your imaging first. Electronically signed by: Elizabeth Fishman MD, [facility] ([phone]), at 12/01/2022 12:53 AM MRI Cervical Spine [...] who have questions please contact the health care companion that requested your imaging first. Thoracic Spine [...] who have questions please contact the health care companion that requested your imaging first. Lumbar Spine [...] who have questions please contact the health care companion that requested your imaging first. Chest PA & Lateral (Generic) (Exam End: 12/01/2022 11:48 AM) Impression No acute findings. Thank you for letting us participate in the care of this patient. If you are a health care provider and have any questions regarding this report, please contact the number below. For patients who have questions please contact the health care companion that requested your imaging first. Cervical Spine [...] who have questions please contact the health care companion that requested your imaging first. CATIONS: Scheduled [...] Out: 5788 [Urine:5531; Other:257] LABS: Recent Labs 12/04/2225 12/03/22 0836 12/02/22 0659 WBC 9.2 11.2* 7.4 HGB 11.7 12.1 12.7 PLATELET 251 266 243 Recent Labs 12/04/2225 12/03/22 0836 12/02/22 0659 NA 138 139 [...] Barkley Urgency Level: Call Me Callback Number: [phone] The following Message was sent: [Call Me] - Callback:[phone] Eliezer Carranza c/o headache 10/10, canI give Tylenol 3, [...] on, call light in hand. * Fifi Park, PT - 12/04/2022 10:10 AM EDT Physical [...] 0.3) performed by Tien Zurita MD at [facility] MAIN OR PRO ALLOGRAFT FOR SPINE SURGERY ONLY MORSELIZED N/A 12/02/2022 ALLOGRAFT FOR SPINE SURGERY ONLY; MORSELIZED (WRVU *) performed by Tien Zurita MD at [facility] MAIN OR PRO ARTHRODESIS POSTERIOR/PSTLAT TECH 1 INTERSPACE LUMBAR, EA ADD'L INTERSPACE N/A 12/02/2022 ARTHRODESIS, POSTERIOR VERTEBRAL EA.ADD. SEGMENT (WRVU 6.43) performed by Tien Zurita MD at [facility] MAIN OR PRO ARTHRODESIS, POST/POSTEROLAT TQ, SNGLE INTERSPACE; CERVICAL BELOW C2 SEGMNT N/A 12/02/2022 @ARTHRODESIS, POSTERIOR CERVICAL SPINE (WRVU 17.4) performed by Tien Zurita MD at [facility] MAIN OR PRO AUTOGRAFT SPINE SURGERY LOCAL FROM SAME INCISION N/A 12/02/2022 AUTOGRAFT FOR SPINE SURGERY ONLY, SAME INCISION (WRVU *) performed by Tien Zurita MD at [facility] MAIN OR PRO BREAST REDUCTION 12/09/2011 REDUCTION MAMMOPLASTY, CHRISTIAN performed by DEMETRA SOMMERS at [facility] MAIN OR PRO LAMINEC/FACETECT/FORAMIN, CERVICAL 1 SEG N/A 12/02/2022 LAMINECTOMY, FACETECTOMY & FORAMINOTOMY, CX, ONE LEVEL (WRVU 17.95) performed by Tien Zurita MD at [facility] MAIN OR PRO LAP, DIAGNOSTIC ABDOMEN Left 08/02/2022 LAPAROSCOPY, DIAGNOSTIC, ABDOMEN (WRVU 5.14) performed by Antonio Rojas MD at [facility] MAIN OR PRO POSTERIOR SEGMENTAL INSTRUMENTATION 3-6 VRT SEG N/A 12/02/2022 POST SPINAL INSTRUMENTATION, 3-6 VERTEBRA, NON SEGMENTAL (WRVU 12.56) performed by Tien Zurita MD at 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 [...] outlined inthis evaluation. Time IN / OUT: 3196-5268 Total Minutes, Physical Therapy: 20 Billing Code: mod complexity eval Fifi Park, PT Pager: [phone] Physical Therapy Inpatient Rehabilitation Department * Jackie Pagan MD - 12/04/2022 6:14 AM EDT NEUROSURGERY PROGRESS NOTE PLEASE PAGE [phone] WITH QUESTIONS ID: Katheryn Carranza is a [...] POD1 -activity as tolerated. -Monitor MANAN output -PT/OT/PARTS ROOM ASSISTANT : } -DISPOSITION: pending course -FULL CODE Please page [phone] with questions/concerns for in-house NSGY patients IMAGING: [...] who have questions please contact the health care companion that requested your imaging first. Electronically signed by: Elizabeth Fishman MD, [facility] ([phone]), at 11/30/2022 9:[address] Thoracic Spine [...] who have questions please contact the health care companion that requested your imaging first. Electronically signed by: Elizabeth Fishman MD, [facility] ([phone]), at 12/01/2022 12:[address] Lumbar Spine [...] who have questions please contact the health care companion that requested your imaging first. Electronically signed by: Elizabeth Fishman MD, [facility] ([phone]), at 12/01/2022 12:53 AM MRI Cervical Spine [...] who have questions please contact the health care companion that requested your imaging first. Thoracic Spine [...] who have questions please contact the health care companion that requested your imaging first. Lumbar Spine [...] who have questions please contact the health care companion that requested your imaging first. Chest PA & Lateral (Generic) (Exam End: 12/01/2022 11:48 AM) Impression No acute findings. Thank you for letting us participate in the care of this patient. If you are a health care provider and have any questions regarding this report, please contact the number below. For patients who have questions please contact the health care companion that requested your imaging first. Cervical Spine [...] who have questions please contact the health care companion that requested your imaging first. CATIONS: Scheduled [...] Humphrey MSW - 12/03/2022 2:21 PM EDT A P SUPERVISOR received a consult to support patient who has no health insurance. A P SUPERVISOR met with patient who states she was at [facility] in July 2022 and [facility] helped her to apply for [place] Medicaid, but she was over-incomed and denied. She now has $50k+ in medical bills at [facility] in addition to medical bills from [facility]. She would like to apply for [place] Medicaid again doing a ???spenddown?? and complete a [facility] Financial Assistance Application to help with these past due bills. A referral has been sent to Jorgito Membreno to follow up with this need/request. RN Ashley DONOHUE and CM Managers informed. * Jackie Pagan MD - 12/03/2022 9:28 AM EDT NEUROSURGERY PROGRESS NOTE PLEASE PAGE [phone] WITH QUESTIONS ID: Katheryn Carranza is a [...] tolerated. -Monitor MANAN output -Remove fournier, DTV -PT/OT/PARTS ROOM ASSISTANT : } -DISPOSITION: pending course -FULL CODE Please page [phone] with questions/concerns for in-house NSGY patients IMAGING: [...] who have questions please contact the health care companion that requested your imaging first. Electronically signed by: Elizabeth Fishman MD, [facility] ([phone]), at 11/30/2022 9:[address] Thoracic Spine [...] who have questions please contact the health care companion that requested your imaging first. Electronically signed by: Elizabeth Fishman MD, [facility] ([phone]), at 12/01/2022 12:[address] Lumbar Spine [...] who have questions please contact the health care companion that requested your imaging first. Electronically signed by: Elizabeth Fishman MD, [facility] ([phone]), at 12/01/2022 12:53 AM MRI Cervical Spine [...] who have questions please contact the health care companion that requested your imaging first. Thoracic Spine [...] who have questions please contact the health care companion that requested your imaging first. Lumbar Spine [...] who have questions please contact the health care companion that requested your imaging first. Chest PA & Lateral (Generic) (Exam End: 12/01/2022 11:48 AM) Impression No acute findings. Thank you for letting us participate in the care of this patient. If you are a health care provider and have any questions regarding this report, please contact the number below. For patients who have questions please contact the health care companion that requested your imaging first. CATIONS: Scheduled [...] PM EDT NEUROSURGERY PROGRESS NOTE PLEASE PAGE [phone] WITH QUESTIONS ID: Katheryn Carranza is a [...] antiplatelet -activity as tolerated. -Monitor MANAN output -PT/OT/PARTS ROOM ASSISTANT : } -DISPOSITION: pending course -FULL CODE Please page [phone] with questions/concerns for in-house NSGY patients IMAGING: [...] who have questions please contact the health care companion that requested your imaging first. Electronically signed by: Elizabeth Fishman MD, [facility] ([phone]), at 11/30/2022 9:[address] Thoracic Spine [...] who have questions please contact the health care companion that requested your imaging first. Electronically signed by: Elizabeth Fishman MD, [facility] ([phone]), at 12/01/2022 12:[address] Lumbar Spine [...] who have questions please contact the health care companion that requested your imaging first. Electronically signed by: Elizabeth Fishman MD, [facility] ([phone]), at 12/01/2022 12:53 AM MRI Cervical Spine [...] who have questions please contact the health care companion that requested your imaging first. Thoracic Spine [...] who have questions please contact the health care companion that requested your imaging first. Lumbar Spine [...] who have questions please contact the health care companion that requested your imaging first. Electronically signed by: ANY Ivory [facility] ([phone]), at 12/01/2022 9:27 AM XR Chest PA & Lateral (Generic) (Exam End: 12/01/2022 11:48 AM) Impression No acute findings. Thank you for letting us participate in the care of this patient. If you are a health care provider and have any questions regarding this report, please contact the number below. For patients who have questions please contact the health care companion that requested your imaging first. CATIONS: Scheduled [...] Humphrey MSW - 12/02/2022 9:03 AM EDT A P SUPERVISOR received a consult to support patient in completing a [place]ive. Patient already hasan advance directive in place. No referral made. * Amada Booker MD - 12/02/2022 6:33 AM EDT NEUROSURGERY PROGRESS NOTE PLEASE PAGE [phone] WITH QUESTIONS ID: Katheryn Carranza is a [...] -hold anticoagulation and antiplatelet -activity as tolerated. -PT/OT/PARTS ROOM ASSISTANT : } -DISPOSITION: pending course -FULL CODE Please page [phone] with questions/concerns for in-house NSGY patients IMAGING: [...] who have questions please contact the health care companion that requested your imaging first. Electronically signed by: Elizabeth Fishman MD, [facility] ([phone]), at 11/30/2022 9:[address] Thoracic Spine [...] who have questions please contact the health care companion that requested your imaging first. Electronically signed by: Elizabeth Fishman MD, [facility] ([phone]), at 12/01/2022 12:[address] Lumbar Spine [...] who have questions please contact the health care companion that requested your imaging first. Electronically signed by: Elizabeth Fishman MD, [facility] ([phone]), at 12/01/2022 12:53 AM MRI Cervical Spine [...] who have questions please contact the health care companion that requested your imaging first. Thoracic Spine [...] who have questions please contact the health care companion that requested your imaging first. Lumbar Spine [...] who have questions please contact the health care companion that requested your imaging first. Chest PA & Lateral (Generic) (Exam End: 12/01/2022 11:48 AM) Impression No acute findings. Thank you for letting us participate in the care of this patient. If you are a health care provider and have any questions regarding this report, please contact the number below. For patients who have questions please contact the health care companion that requested your imaging first. CATIONS: Scheduled [...] with surgery as detailed above. * Lexy Smith, OLIVIA - 12/01/2022 8:01 PM EDT OUTCOME EVALUATION [...] AM EDT NEUROSURGERY PROGRESS NOTE PLEASE PAGE [phone] WITH QUESTIONS ID: Katheryn Carranza is a [...] -hold anticoagulation and antiplatelet -activity as tolerated. -PT/OT/PARTS ROOM ASSISTANT : } -DISPOSITION: pending course -FULL CODE Please page [phone] with questions/concerns for in-house NSGY patients IMAGING: [...] who have questions please contact the health care companion that requested your imaging first. Electronically signed by: Elizabeth Fishman MD, [facility] ([phone]), at 11/30/2022 9:[address] Thoracic Spine [...] who have questions please contact the health care companion that requested your imaging first. Electronically signed by: Elizabeth Fishman MD, [facility] ([phone]), at 12/01/2022 12:[address] Lumbar Spine [...] who have questions please contact the health care companion that requested your imaging first. Electronically signed by: Elizabeth Fishman MD, [facility] ([phone]), at 12/01/2022 12:53 AM MRI Cervical Spine [...] who have questions please contact the health care companion that requested your imaging first. Thoracic Spine [...] who have questions please contact the health care companion that requested your imaging first. Lumbar Spine [...] who have questions please contact the health care companion that requested your imaging first. CATIONS: Scheduled [...] Booker MD - 12/02/2022 10:30 AM EDT [facility] NEUROSURGERY Admission H&P Update Please see NSGY consult note from 11/30/22 for further details on this admission. documented in this encounter Procedure Notes * Sudeep Womack MD - 12/06/2022 9:57 AM EDT MANAN Removal Procedure: Patient is seen in bed in [facility] without change in neuro exam from earlier. MANAN with minimal output. Discussed with attending, agreed to remove the drain. Dressing was removed. The drain was taken off suction. The area around the tubing's entry site was cleaned with ChloraPrep. The tack-up suture was removed. The drain was carefully extracted. The entry site was closed with 4-0 monocryl suture in a [id number]-vi-[id number] fashion. This was done with the usual sterile technique. Dressing was placed. Patient tolerated the procedure well without any complications. Plan: See today's progress note * Usha Taylor MD - 12/02/2022 3:49 PM EDT NEURODIAGNOSTIC LABORATORY [facility] INTRAOPERATIVE MONITORING REPORT Name: Katheryn [...] ipsilateral first dorsalinterosseous pickup, respectively. CPT Codes: 79700 (EEG); 28089 (EMG four limbs); 04098 (TOF, 4 nerves); 89197 (upper & lower MEP); 95616 (upper and lower SSEP bilateral); 27336 (IOM, 2 units); 47347 (IOM, 2 units). Total IOM time: 2 [...] Team: Usha Taylor MD; Elio Flores PhD, [facility]. Anesthesia: Propofol/schuyler Report: Following anesthesia and prior [...] relaxant reversal. We were able to get [id number]-wv-[id number] on all four nerves. tcMEP were stable. [...] who have questions please contact the health care companion that requested your imaging first. Electronically signed by: Elizabeth Fishman MD, [facility] ([phone]), at 11/30/2022 9:36 PM Procedures Assessment and [...] final neurosurgery recommendations. Leopoldo Power MD Resident 11/30/22 4626 Associated attestation - Calista Barrera MD - [...] Patient is medically ready for discharge to [facility]. Needs for Transition of Care: Plan for discharge is: Pending Hospital Course and PT/OT Recommendations Outpatient Agency/Support Group Needs: None Agency Referrals & Follow-up Care: Contact information for follow-up [facility], [facility] [address] [place] [address] [place] [address] Transportation: ambulance requested noon, not confirmed yet. [...] none Patient is insured through: Primary Insurance: [employer] [place] Pay[place] [employer] [place] / Plan: [place] / Product Type: *No Product type* / Secondary Insurance: N/A Prescription Coverage: (Unable to assess) This plan was formulated with input from patient, -Prieto (please identify family/friend involved if applicable) and team. All are in agreement with plan. Ashley SHEA, RN Pager #[phone] * Plan of Care - Cindy Morejon RN - 12/16/2022 4:54 AM EDT OUTCOME EVALUATION NOTE: OUTCOME SUMMARY: Patient is alert & oriented x4, no changes neurologically. VSS, on RA, afebrile. [place] to posterior neck incision intact/approximated. Reports severe [...] water. Pain managed per AUG. 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 Voids CYU in commode at bedside. Good [...] Secondary Insurance: N/A Last Physical Therapy Recommendation: senior care facility, swing bed rehabilitation facility with to be determined Last Occupational Therapy Recommendation: senior care facility with to be determined Plan for [...] we do not have a card yet. A P SUPERVISOR has assisted pt's to apply for LTC RADHA. Care Management will continue to follow and assist with discharge planning and coordination of care as indicated. Anticipated Date of Discharge: 12/13/2022 Ashley SHEA, RN Pager #[phone] * Plan of Care - Cristina Gan [...] 0.3) performed by Tien Zurita MD at [facility] MAIN OR PRO ALLOGRAFT FOR SPINE SURGERY ONLY MORSELIZED N/A 12/02/2022 ALLOGRAFT FOR SPINE SURGERY ONLY; MORSELIZED (WRVU *) performed by Tien Zurita MD at [facility] MAIN OR PRO ARTHRODESIS POSTERIOR/PSTLAT TECH 1 INTERSPACE LUMBAR, EA ADD'L INTERSPACE N/A 12/02/2022 ARTHRODESIS, POSTERIOR VERTEBRAL EA.ADD. SEGMENT (WRVU 6.43) performed by Tien Zurita MD at [facility] MAIN OR PRO ARTHRODESIS, POST/POSTEROLAT TQ, SNGLE INTERSPACE; CERVICAL BELOW C2 SEGMNT N/A 12/02/2022 @ARTHRODESIS, POSTERIOR CERVICAL SPINE (WRVU 17.4) performed by Tien Zurita MD at [facility] MAIN OR PRO AUTOGRAFT SPINE SURGERY LOCAL FROM SAME INCISION N/A 12/02/2022 AUTOGRAFT FOR SPINE SURGERY ONLY, SAME INCISION (WRVU *) performed by Tien Zurita MD at [facility] MAIN OR PRO BREAST REDUCTION 12/09/2011 REDUCTION MAMMOPLASTY, CHRISTIAN performed by DEMETRA SOMMERS at [facility] MAIN OR PRO LAMINEC/FACETECT/FORAMIN, CERVICAL 1 SEG N/A 12/02/2022 LAMINECTOMY, FACETECTOMY & FORAMINOTOMY, CX, ONE LEVEL (WRVU 17.95) performed by Tien Zurita MD at [facility] MAIN OR PRO LAP, DIAGNOSTIC ABDOMEN Left 08/02/2022 LAPAROSCOPY, DIAGNOSTIC, ABDOMEN (WRVU 5.14) performed by Antonio Rojas MD at [facility] MAIN OR PRO POSTERIOR SEGMENTAL INSTRUMENTATION 3-6 VRT SEG N/A 12/02/2022 POST SPINAL INSTRUMENTATION, 3-6 VERTEBRA, NON SEGMENTAL (WRVU 12.56) performed by Tien Zurita MD at [facility] MAIN OR PRO REMOVAL OF OVARY/TUBE(S) Left 08/02/2022 @SALPINGO-OOPHORECTOMY, UNILATERAL OR CHRISTIAN (WRVU 12.16) performed by Antonio Rojas MD at [facility] MAIN OR PRO STEROTACTIC CPTR ASSTD PX SPINAL N/A 12/02/2022 STEREOTACTIC COMPUTER-ASSTD NAVIGATIONAL SPINAL (WRVU 3.75) performed [facility] UPPER GI ENDOSCOPY, DIAGNOSTIC N/A 08/05/2022 EGD, UPPER GI ENDOSCOPY performed by Donnie Obrien MD at [facility] ENDOSCOPY Social History: Patient lives with [...] and measurable assessment of functional outcome. Pager: [phone] Ayana Byrd OT 12/04/2022 Occupational Therapy Rehabilitation [...] indicated. Anticipated Date of Discharge: 12/08/2022 Ashley Kwon MSN, RN Pager #[phone] * Plan of Care - Mayuri Patel [...] walker - standard Home Address listed as: [address] [place] [id number] Social & Family Supports: All names listed below confirmed with patient as current and correct Extended Emergency Contact Information Primary Emergency Contact: Prieto Carranza Address: [address] [place] [id number] [facility] Relation: Spouse Secondary Emergency Contact: [place] [address] [facility] Relation: Child Current Care [...] Prescription Coverage: (Unable to assess) Preferred Pharmacy: [facility] [address] [address] Status: Patient is a : Primary Care Provider listed: Lena Womack, JACKEI [phone] Patient/Caregiver Goals of Treatment: TBD pending hospital course and rehab evals. Potential Needs for Transition of Care: home health care, durable medical equipment Agency Referrals: Not Applicable Transportation: no concerns Transportation Anticipated: family or friend will provide Concerns to be Addressed: adjustment to diagnosis/illness, home care companion support, discharge planning, uninsured, substance/tobacco abuse/use, medication Assessment: Patient is admitted to Neurosurg service for cervical myelopathy in setting of fall with increased symptoms. Plan: TBD pending hospital course and rehab evals post op. A member of the Care Management team will continue to monitor progress, follow for continuity of care and assist with transition of care planning. Ashley Kwon MSN, RN Pager #[phone] * Op Note - Tien Zurita MD - 12/02/2022 1:27 PM EDT [facility] Operative Note Patient Name: Katheryn Carranza : [id number] MR#: [id number] Case Date: 12/02/2022 Surgeon: Surgeon(s) and Role: [...] 4. Local autograft and morselized allograft CPT: 19416 fusion single level +90584 x 4 for each additional fusion level 56989-39 Cervical Laminectomy/Facetectomy single level +14502 x2 Cervical laminectomy/facetectomy each additional level +51390 Instrument 3-6 Level, +68048 navigation +38100 autograft + allograft Findings: Calcified ligamentum flavum at C6-7, severe stenosis at C4-5 Anesthesia: General Estimated Blood Loss: 200 mL Specimens removed during surgery: None Drains: #15 round [place] Surgical Closure: Primary Closure - skin incision [...] and transverse processes of T1 and T2. Airframe Design Engineer holes for lateral mass screws bilaterally from C4 - C6 was performed with an initial 2mm cutting miguel for opening the cortex in the standard Magerl entry point, and then using the CD4 hand-heldpower drill, 14mm depth liquid fertilizer servicer holes were placed using standard Magerl technique. The liquid fertilizer servicer holes were palpated using a fine ball-tipped probe and subsequently tapped. Lateral mass screws were left out at this time. The O-arm was then brought into the field for acquisition of stereotactic guidance for placement of T1 and T2 pedicle screws. Then with the [employer] S8 spinal navigation, bilateral pedicle screws were [...] for the entire procedure. Tien Zurita MD Pedicab Driver Section of Neurosurgery Department of Surgery [facility] * Plan of Care - Mayuri Patel [...] James RPH - 12/01/2022 3:49 PM EDT [facility] Medication List Update for Medication [...] REDUCTION 12/09/2011 REDUCTION MAMMOPLASTY, CHRISTIAN performed by DEMTERA SOMMERS at [facility] MAIN OR PRO LAP, DIAGNOSTIC ABDOMEN Left 08/02/2022 LAPAROSCOPY, DIAGNOSTIC, ABDOMEN (WRVU 5.14) performed by Antonio Rojas MD at [facility] MAIN OR PRO REMOVAL OF OVARY/TUBE(S) Left 08/02/2022 @SALPINGO-OOPHORECTOMY, UNILATERAL OR CHRISTIAN (WRVU 12.16) performed by Antonio Rojas MD at [facility] MAIN OR PRO UPPER GI ENDOSCOPY, DIAGNOSTIC N/A 08/05/2022 EGD, UPPER GI ENDOSCOPY performed by Donnie Obrien MD at [facility] ENDOSCOPY Allergies Allergen Reactions Allergenic Extracts [...] optimally treated, with possible referral to a line maintenance supervisor for further evaluation: High Risk Patients [] Recent MT or unstable angina [] Decompensated heart failure [...] - Consider Stress Testing if it would foreign exchange services manager or would be done otherwise PULMONARY RISK [...] risk surgery (6% 30 day mortality , MT or cardiac arrest). Tolerated anesthesia in August no issue, baseline ECG similar to prior. Baseline trop neg. No further eval indicated prior to OR Remainder as above. SAUL ALONSO MD * Consult Note - Giovanna MckeonJACKIE - 11/30/2022 10:15 PM EDT Neurosurgery Inpatient [...] known to NSGY service; who presented to [facility] ED per recommendation from NSGY clinic with [...] MAMMOPLASTY, CHRISTIAN performed by DEMETRA SOMMERS at [facility] MAIN OR PRO LAP, DIAGNOSTIC ABDOMEN Left 08/02/2022 LAPAROSCOPY, DIAGNOSTIC, ABDOMEN (WRVU 5.14) performed by Antonio Rojas MD at [facility] MAIN OR PRO REMOVAL OF OVARY/TUBE(S) Left 08/02/2022 @SALPINGO-OOPHORECTOMY, UNILATERAL OR CHRISTIAN (WRVU 12.16) performed by Antonio Rojas MD at [facility] MAIN OR PRO UPPER GI ENDOSCOPY, DIAGNOSTIC N/A 08/05/2022 EGD, UPPER GI ENDOSCOPY performed by Donnie Obrien MD at [facility] ENDOSCOPY Medications: No current facility-administered medications [...] on file Vitals: Vitals: 11/30/22 1941 11/30/22 [id number] BP: 128/78 115/66 BP Location (NBP): Right [...] who have questions please contact the health care companion that requested your imaging first. Assessment: This is a 62 y.o. female with a PMHx of cervical myelopathy, osteoarthritis, HTN , known to NSGY service; who presented to [facility] ED per recommendation from NSGY clinic with [...] the assessment and plan. Please page NSGY [phone] if questions Giovanna Mckeon APRN Neurosurgery * [...] Hr Phy Or Oth Hlth Care Prov (58675) Yes 12/02/2022 12:11 PM EDT Stenosis of cervical spine with myelopathy MODIFIER,POSTERIOR CERVICAL INFINITY [employer] Yes 12/02/2022 12:11 PM EDT Stenosis of cervical spine with myelopathy Sterotactic Cptr Asstd Px Spinal (14457) Yes 12/02/2022 12:11 PM EDT Stenosis of cervical spine with myelopathy Allograft For Spine Surgery Only Morselized () Yes 12/02/2022 12:11 PM EDT Stenosis of cervical spine with myelopathy Autograft Spine Surgery Local From Same Incision () Yes 12/02/2022 12:11 PM EDT Stenosis of cervical spine with myelopathy Posterior Segmental Instrumentation 3-6 Vrt Seg (71913) Yes 12/02/2022 12:11 PM EDT Stenosis of cervical spine with myelopathy Laminec/Facetect/Forami n, Cervical 1 Seg (67435) Yes 12/02/2022 12:11 PM EDT Stenosis of cervical spine with myelopathy Arthrodesis Posterior/Pstlat Technique 1 Interspace Lumbar, Ea Add'L Interspace (48586) Yes 12/02/2022 12:11 PM EDT Stenosis of cervical spine with myelopathy Arthrodesis, Post/Posterolat Tq, Sngle Interspace; Cervical Below C2 Segmnt (57685) Yes 12/02/2022 12:11 PM EDT Stenosis of [...] who have questions please contact the health care companion that requested your imaging first. ? Electronically signed by: Svetlana Wellington MD, [facility] ([phone]), at 01/17/2023 2:21 PM Narrative 01/17/2023 2:21 [...] patients who have questions please contactthe health care companion that requested your imaging first. Electronically signed by: Svetlana Wellington MD, [facility]([phone]), at 01/17/2023 2:21 PM Chauhan A Echt IMG DX ORDERABLES * (ABNORMAL) Urine culture (12/04/2022 3:08 PM EDT) Urine Culture Greater than 100,000 cfu/ml Enterobacter cloacae complex(A) [facility] Organism Enterobacter cloacae complex(A) [facility] Clean Catch Urine 12/04/2022 3:08 [...] Womack MD MICROBIOLOGY - GENER AL ORDERABLES [facility] [place] [address] * (ABNORMAL) Urinalysis Microscopic Exam (12/04/2022 3:08 PM EDT) RBC, Urine 1 0 - 4 /HPF [facility] WBC, Urine 3 0 - 5 /HPF [facility] Bacteria, Urine Many(A) None /HPF [facility] Squamous Epithelial Cells Raw Data, Urine 1 <=4 /HPF [facility] Clean Catch Urine 12/04/2022 3:08 PM EDT 12/04/2022 3:32 PM EDT Narrative Resulting Agency Comment Spec In Lab Sudeep Womack MD URINE ORDERABLES [facility] [place] [address] * (ABNORMAL) Urinalysis with reflex Culture (12/04/2022 3:08 PM EDT) Glucose, Urine Dipstick Negative Negative mg/dL [facility] Protein, Urine Dipstick Negative Negative mg/dL [facility] Bilirubin, Urine Dipstick Negative Negative mg/dL [facility] Comment: Clinical correlation required for positive Urine Bilirubin results as false positive may occur with some drugs and drug related products. If a false positive is suspected a serum total bilirubin should be considered if clinically indicated. Urobilinogen, Urine Dipstick Normal Normal mg/dL [facility] pH, Urn (dipstick) 7.0 5.0 - 8.0 [facility] Blood, Urine Dipstick Negative Negative mg/dL [facility] Ketone, Urine Dipstick Negative Negative mg/dL [facility] Nitrite, Urine Dipstick Positive(A) Negative [facility] Leukocytes, Urine Dipstick Moderate(A) Negative [facility] Appearance, Urine Dipstick Clear Clear [facility] Specific [place] Urine Automated 1.007 1.005 - 1.030 [facility] Color, Urine Dipstick Yellow Yellow [facility] Reflex to Culture Yes [facility] Clean Catch Urine 12/04/2022 3:08 PM EDT 12/04/2022 3:32 PM EDT Narrative Resulting Agency Comment Spec In Lab Tien Zurita MD [place] [address] * (ABNORMAL) Differential, Automated (12/04/2022 6:25 AM EDT) Neutrophil % 50.8 % [facility] Neutrophil Absolute 4.67 1.70 - 6.10 x10(3)/mc L [facility] Lymph % 36.4 % [facility] Lymphocytes Abs 3.4(H) 0.9 - 3.2 x10(3)/mc L [facility] Monocyte % 9.2 % [facility] Monocyte Abs 0.8 0.3 - 0.9 x10(3)/mc L [facility] Eos % 2.9 % [facility] Eosinophils Abs 0.3 0.0 - 0.4 x10(3)/mc L [facility] Basophil % 0.3 % [facility] Baso Absolute 0.0 0.0 - 0.1 x10(3)/mc L [facility] Immature Gran % 0.40 % [facility] Comment: Immature granulocytes(IG's)percentage and absolute count will include metamyelocytes, myelocytes, and promyelocytes. Blood smears from CBCs yielding IG's will be scanned manually for concordance. If this scan disagrees with the automated IG or if promyelocytes are noted, a manual differential will be performed. Immature Gran Absolute 0.04 0.00 - 0.04 x10(3)/mc L [facility] Blood 12/04/2022 6:25 AM EDT 12/04/2022 6:50 AM EDT Narrative Resulting Agency Comment Spec In Lab Louie Rosario MD HEMATOLOGY ORDERABLE S [facility] [place] [address] * (ABNORMAL) Hemogram (12/04/2022 6:25 AM EDT) White Blood Cell 9.2 4.0 - 9.5 x10(3)/mc L [facility] Red Blood Cell 3.64(L) 4.00 - 5.21 x10(6)/mc L [facility] Hemoglobin 11.7 11.7 - 15.5 g/dL [facility] Hematocrit 33.7(L) 35.7 - 45.8 % [facility] Mean Cell Volume 92.6 82.6 - 94.4 fL [facility] Mean Cell Hemoglobin 32.1(H) 27.1 - 32.0 pg [facility] Mean Cell Hemoglobin Concentration 34.7 31.7 - 35.0 g/dL [facility] Platelet 251 145 - 357 x10(3)/mc L [facility] RDW Standard Deviation 41.7 37.0 - 46.0 fL [facility] RDW coefficient of variation 12.3 11.5 - 14.1 % [facility] Mean Platelet Volume 9.0 7.6 - 12.9 fL [facility] NRBC% auto 0.0 % [facility] NRBC Absolute 0.000 0.000 - 0.000 x10(3)/ L [facility] Blood 12/04/2022 6:25 AM EDT 12/04/2022 6:50 AM EDT Narrative Resulting Agency Comment Spec In Lab Louie Rosario MD HEMATOLOGY ORDERABLE S [facility] [place] [address] * Basic Metabolic Panel (non-fasting) (12/04/2022 6:25 AM EDT) Glucose 117 65 - 199 mg/dL [facility] Comment:Diabetes: >=200 mg/d L plus symptoms Blood Urea Nitrogen 8 8 - 18 mg/dL [facility] Creatinine 0.76 0.70 - 1.20 mg/dL [facility] Sodium 138 135 - 145 mmol/L [facility] Potassium 3.5 3.5 - 5.0 mmol/L [facility] Comment: Please note: ??Patients with WBC >100,000 may have falsely elevated Potassium levels. ??For accurate Potassium quantification in these patients send serum separator tube (gold top) for subsequent determinations. ??Contact the Clinical Chemistry Laboratory if there are any questions. Chloride 101 98 - 107 mmol/L [facility] Carbon Dioxide 27 22 - 31 mmol/L [facility] Anion Gap 10 5 - 15 mmol/L [facility] Calcium 9.3 8.5 - 10.5 mg/dL [facility] Est Glomerular Filtration Rate 89 >=60 mL/min/1. 73 m?? [facility] Comment: This patient's estimated GFR [...] In Lab Chauhan A Echt CHEMISTRY ORDERABLES Performing Organization Address City/State/[facility] Co de Phone Number [facility] [place] [address] * XR Cervical Spine 2 or 3 [...] who have questions please contact the health care companion that requested your imaging first. ? Narrative [...] patients who have questions please contactthe health care companion that requested your imaging first. Chauhan A Echt IMG DX ORDERABLES * (ABNORMAL) Differential, Automated (12/03/2022 8:36 AM EDT) [facility] Signature Neutrophil % 70.2 % [facility] Neutrophil Absolute 7.83(H) 1.70 - 6.10 x10(3)/mc L [facility] Lymph % 20.2 % [facility] Lymphocytes Abs 2.2 0.9 - 3.2 x10(3)/mc L [facility] Monocyte % 8.6 % [facility] Monocyte Abs 1.0(H) 0.3 - 0.9 x10(3)/ L [facility] Eos % 0.4 % [facility] Eosinophils Abs 0.0 0.0 - 0.4 x10(3)/mc L [facility] Basophil % 0.2 % [facility] Baso Absolute 0.0 0.0 - 0.1 x10(3)/ L [facility] Immature Gran % 0.40 % [facility] Comment: Immature granulocytes(IG's)percentage and absolute count will include metamyelocytes, myelocytes, and promyelocytes. Blood smears from CBCs yielding IG's will be scanned manually for concordance. If this scan disagrees with the automated IG or if promyelocytes are noted, a manual differential will be performed. Immature Gran Absolute 0.05(H) 0.00 - 0.04 x10(3)/ L [facility] Blood 12/03/2022 8:36 AM EDT 12/03/2022 8:57 AM EDT Narrative Resulting Agency Comment Spec In Lab Louie Rosario MD HEMATOLOGY ORDERABLE S [facility] [place] [address] * (ABNORMAL) Hemogram (12/03/2022 8:36 AM EDT) White Blood Cell 11.2(H) 4.0 - 9.5 x10(3)/mc L [facility] Red Blood Cell 3.75(L) 4.00 - 5.21 x10(6)/mc L [facility] Hemoglobin 12.1 11.7 - 15.5 g/dL [facility] Hematocrit 34.7(L) 35.7 - 45.8 % [facility] Mean Cell Volume 92.5 82.6 - 94.4 fL [facility] Mean Cell Hemoglobin 32.3(H) 27.1 - 32.0 pg [facility] Mean Cell Hemoglobin Concentration 34.9 31.7 - 35.0 g/dL [facility] Platelet 266 145 - 357 x10(3)/mc L [facility] RDW Standard Deviation 42.1 37.0 - 46.0 fL [facility] RDW coefficient of variation 12.5 11.5 - 14.1 % [facility] Mean Platelet Volume 9.3 7.6 - 12.9 fL [facility] NRBC% auto 0.0 % [facility] NRBC Absolute 0.000 0.000 - 0.000 x10(3)/mc L [facility] Blood 12/03/2022 8:36 AM EDT 12/03/2022 8:57 AM EDT Narrative Resulting Agency Comment Spec In Lab Louie Rosario MD HEMATOLOGY ORDERABLE S Performing Organization Address City/State/[facility] Co de Phone Number [facility] [place] [address] * (ABNORMAL) Basic Metabolic Panel (non-fasting) (12/03/2022 8:36 AM EDT) Glucose 125 65 - 199 mg/dL [facility] Comment:Diabetes: >=200 mg/d L plus symptoms Blood Urea Nitrogen 6(L) 8 - 18 mg/dL [facility] Creatinine 0.62(L) 0.70 - 1.20 mg/dL [facility] Sodium 139 135 - 145 mmol/L [facility] Potassium 4.0 3.5 - 5.0 mmol/L [facility] Comment: Please note: ??Patients with WBC >100,000 may have falsely elevated Potassium levels. ??For accurate Potassium quantification in these patients send serum separator tube (gold top) for subsequent determinations. ??Contact the Clinical Chemistry Laboratory if there are any questions. Chloride 102 98 - 107 mmol/L [facility] Carbon Dioxide 24 22 - 31 mmol/L [facility] Anion Gap 13 5 - 15 mmol/L [facility] Calcium 9.5 8.5 - 10.5 mg/dL [facility] Est Glomerular Filtration Rate 101 >=60 mL/min/1. 73 m?? [facility] Comment: This patient's estimated GFR [...] Zurita MD CHEMISTRY ORDERABLES Performing Organization Address City/[facility]/ZIP Co de Phone Number [facility] [place] [address] * EKG 12 Lead (12/02/2022 9:02 PM EDT) Ventricular rate 92 BPM MUSE SYSTEM Atrial Rate 92 BPM MUSE SYSTEM P-R Interval 200 ms MUSE SYSTEM QRS Duration 112 ms MUSE SYSTEM Q-T Interval 378 ms MUSE SYSTEM QTC Calculated (Bezet) 467 ms MUSE SYSTEM Calculated P [place] 52 degrees MUSE SYSTEM Calculated R [place] 88 degrees MUSE SYSTEM Calculated T [place] 78 degrees MUSE SYSTEM INTERPRETATION Normal sinus rhythm T wave abnormality, consider anterior ischemia Abnormal ECG When compared with ECG of 01-DEC-2022 11:15, No significant change was found Confirmed by MD Neetu, Mark Lopez ([id number]) on 12/03/2022 3:28:25 PM MUSE SYSTEM 12/02/2022 9:02 PM EDT 12/03/2022 3:28 PM EDT Tien Zurita MD ECG ORDERABLES Performing Organization Address City/[facility]/ZIP Co de Phone Number MUSE SYSTEM * XR Fluoro No Rad <1Hr - OR Use (12/02/2022 4:07 PM EDT) Narrative Dicom, Auditing User - 12/02/2022 4:07 PM EDT This exam is auto-finalizing. No interpretation was done. Tien CHATTERJEE FLUORO ORDERABLE S * XR O-Arm No Rad <1Hr - OR Use (12/02/2022 4:06 PM EDT) Narrative Dicom, Auditing User - 12/02/2022 4:07 PM EDT This exam is auto-finalizing. No interpretation was done. Tien CHATTERJEE FLUORO ORDERABLE S * Differential, Automated (12/02/2022 6:59 AM EDT) Neutrophil % 67.4 % [facility] Neutrophil Absolute 4.99 1.70 - 6.10 x10(3)/[facility] Lymph % 22.4 % [facility] Lymphocytes Abs 1.7 0.9 - 3.2 x10(3)/[facility] Monocyte % 7.0 % [facility] Monocyte Abs 0.5 0.3 - 0.9 x10(3)/[facility] Eos % 2.6 % [facility] Eosinophils Abs 0.2 0.0 - 0.4 x10(3)/[facility] Basophil % 0.1 % [facility] Baso Absolute 0.0 0.0 - 0.1 x10(3)/[facility] Immature Gran % 0.50 % [facility] Comment: Immature granulocytes(IG's)percentage and absolute count will include metamyelocytes, myelocytes, and promyelocytes. Blood smears from CBCs yielding IG's will be scanned manually for concordance. If this scan disagrees with the automated IG or if promyelocytes are noted, a manual differential will be performed. Immature Gran Absolute 0.04 0.00 - 0.04 x10(3)/[facility] Blood 12/02/2022 6:59 AM EDT 12/02/2022 7:19 AM EDT Narrative Resulting Agency Comment Spec In Lab Giovanna Mckeon LEAD TINNER HEMATOLOGY ORDERA BLES [facility] [place] [address] * (ABNORMAL) Hemogram (12/02/2022 6:59 AM EDT) White Blood Cell 7.4 4.0 - 9.5 x10(3)/mc L [facility] Red Blood Cell 3.92(L) 4.00 - 5.21 x10(6)/mc L [facility] Hemoglobin 12.7 11.7 - 15.5 g/dL [facility] Hematocrit 37.4 35.7 - 45.8 % [facility] Mean Cell Volume 95.4(H) 82.6 - 94.4 fL [facility] Mean Cell Hemoglobin 32.4(H) 27.1 - 32.0 pg [facility] Mean Cell Hemoglobin Concentration 34.0 31.7 - 35.0 g/dL [facility] Platelet 243 145 - 357 x10(3)/mc L [facility] RDW Standard Deviation 44.6 37.0 - 46.0 fL [facility] RDW coefficient of variation 12.9 11.5 - 14.1 % [facility] Mean Platelet Volume 9.3 7.6 - 12.9 fL [facility] NRBC% auto 0.0 % [facility] NRBC Absolute 0.000 0.000 - 0.000 x10(3)/mc L [facility] Blood 12/02/2022 6:59 AM EDT 12/02/2022 7:19 AM EDT Narrative Resulting Agency Comment Spec In Lab Giovanna Mckeon LEAD TINNER HEMATOLOGY ORDERA BLES [facility] [place] [address] * Basic Metabolic Panel (non-fasting) (12/02/2022 6:59 AM EDT) Glucose 120 65 - 199 mg/dL [facility] Comment:Diabetes: >=200 mg/d L plus symptoms Blood Urea Nitrogen 8 8 - 18 mg/dL [facility] Creatinine 0.73 0.70 - 1.20 mg/dL [facility] Sodium 138 135 - 145 mmol/L [facility] Potassium 4.2 3.5 - 5.0 mmol/L [facility] Comment: Please note: ??Patients with WBC >100,000 may have falsely elevated Potassium levels. ??For accurate Potassium quantification in these patients send serum separator tube (gold top) for subsequent determinations. ??Contact the Clinical Chemistry Laboratory if there are any questions. Chloride 100 98 - 107 mmol/L [facility] Carbon Dioxide 27 22 - 31 mmol/L [facility] Anion Gap 11 5 - 15 mmol/L [facility] Calcium 9.5 8.5 - 10.5 mg/dL [facility] Est Glomerular Filtration Rate 93 >=60 mL/min/1. 73 m?? [facility] Comment: This patient's estimated GFR [...] In Lab Tien Zurita MD CHEMISTRY ORDERABLES [facility] [place] [address] * SCAN DOC: IMPLANTABLE DEVICES (12/02/2022 12:00 AM EDT) Narrative 12/02/2022 12:00 AM EDT Ordered by an unspecified provider. Scanning Provider MEDIA MGR SCAN EXT O RDR/RSLT * Type and Screen Validity (12/01/2022 3:55 PM EDT) T&S only valid at [facility] Comment:This Type and Screen result is only valid at the [facility] Blood 12/01/2022 3:55 PM EDT 12/01/2022 4:23 PM EDT Narrative Resulting Agency Comment Spec In Lab Giovanna Mckeon APRN BLOOD BANK LAB OR DERABLES Performing Organization Address [facility]/ZIP Co de Phone Number [facility] [place] [address] * ABORH Recheck Status (12/01/2022 3:55 PM EDT) Pathologist [facility] [place] ABORH Type Recheck Completed [facility] Blood 12/01/2022 3:55 PM EDT 12/01/2022 4:23 PM EDT Narrative Resulting Agency Comment Spec In Lab Giovanna Mckeon LEAD TINNER BLOOD BANK LAB OR DERABLES Performing Organization Address [facility] Co de Phone Number [facility] [place] [address] * Antibody screen (12/01/2022 3:55 PM EDT) Pathologist [facility] [place] Ab Screen Interp Negative [facility] Expires at [id number] on: 12/04/2022 [facility] Blood 12/01/2022 3:55 PM EDT 12/01/2022 4:23 PM EDT Narrative Resulting Agency Comment Spec In Lab Giovanna Mckeon APRN BLOOD BANK LAB OR DERABLES Performing Organization Address [facility] Co de Phone Number [facility] [place] [address] * ABO/Rh Typing (12/01/2022 3:55 PM EDT) ABORH Type O Pos [facility] Blood 12/01/2022 3:55 PM EDT 12/01/2022 4:23 PM EDT Narrative Resulting Agency Comment Spec In Lab Giovanna Mckeon LEAD TINNER BLOOD BANK LAB OR DERABLES Performing Organization Address City/[facility]/ZIP Co de Phone Number [facility] [place] [address] * Troponin (12/01/2022 3:55 PM EDT) Troponin-T, High Sensitivity 7 <=14 ng/L [facility] Comment: This patient's troponin T [...] troponin value can be found in the Counts Include [facility] Laboratory Test Catalog Troponin - Counts Include [facility] Test Catalog Reference: Fourth Dav[place] Definition of Myocardial Infarction. Journal of the [place] [employer] 2018;72:5376-4752 Blood Venous Draw / Unknown 12/01/2022 3:55 PM EDT 12/01/2022 4:13 PM EDT Narrative Resulting Agency Comment Spec In Lab Twila Ahumada MD CHEMISTRY ORDERABLES Performing Organization Address City/[facility]/ZIP Co de Phone Number [facility] [place] [address] * APTT (12/01/2022 3:55 PM EDT) Partial Thromboplastin Time 30 25 - 37 sec [facility] Comment: The PTT is NOT appropriate for heparin monitoring. Use the Anti-Xa level for heparin monitoring (HEP UFH) or LMWH monitoring (HEP LMW). A PTT less than 37 seconds generally indicates adequate hemostasis. Blood 12/01/2022 3:55 PM EDT 12/01/2022 4:13 PM EDT Narrative Resulting Agency Comment Spec In Lab Giovanna Mckeon APRN HEMATOLOGY ORDERA BLES Performing Organization Address [facility] Co de Phone Number [facility] [place] [address] * Prothrombin Time (12/01/2022 3:55 PM EDT) Prothrombin Time 11.2 9.4 - 12.5 sec [facility] International Normalization Ratio 1.0 [facility] Comment: An INR <2.0 indicates [...] APRN HEMATOLOGY ORDERA BLES Performing Organization Address [facility] Co de Phone Number [facility] [place] [address] * XR Chest PA & Lateral (Generic) [...] who have questions please contact the health care companion that requested your imaging first. ? Narrative [...] patients who have questions please contactthe health care companion that requested your imaging first. Tien Zurita MD IMG DX ORDERABLES * EKG 12 Lead (12/01/2022 11:15 AM EDT) Ventricular rate 72 BPM MUSE SYSTEM Atrial Rate 72 BPM MUSE SYSTEM P-R Interval 172 ms MUSE SYSTEM QRS Duration 104 ms MUSE SYSTEM Q-T Interval 406 ms MUSE SYSTEM QTC Calculated (Bezet) 444 ms MUSE SYSTEM Calculated P [place] 57 degrees MUSE SYSTEM Calculated R [place] 88 degrees MUSE SYSTEM Calculated T [place] 82 degrees MUSE SYSTEM INTERPRETATION Normal sinus [...] who have questions please contact the health care companion that requested your imaging first. ? Narrative [...] moderate left subarticular recess narrowing. Procedure Note uFnmilayo Marrero MD - 12/01/2022 EXAMINATION: MRI THORACIC [...] patient motion. The conus terminates at the [id number]. No evidence for unhealed fracture in the [...] patients who have questions please contactthe health care companion that requested your imaging first. Chauhan A Echt IMG MRI ORDERABLES * MRI Thoracic Spine [...] who have questions please contact the health care companion that requested your imaging first. ? Narrative [...] patient motion. The conus terminates at the [id number]. No evidence for unhealed fracture in the [...] patients who have questions please contactthe health care companion that requested your imaging first. Chauhan A [...] who have questions please contact the health care companion that requested your imaging first. ? Narrative [...] patient motion. The conus terminates at the [id number]. No evidence for unhealed fracture in the [...] patients who have questions please contactthe health care companion that requested your imaging first. Giovanna Mckeon LEAD TINNER IMG MRI ORDERABLE S * CT Lumbar [...] who have questions please contact the health care companion that requested your imaging first. ? Electronically signed by: Elizabeth Fishman MD, [facility] ([phone]), at 12/01/2022 12:53 AM Narrative 12/01/2022 12:53 [...] patients who have questions please contactthe health care companion that requested your imaging first. Electronically signed by: Elizabeth Fishman MD, [facility]([phone]), at 12/01/2022 12:53 AM Giovanna Mckeon APRN [facility] ORDERABLES * CT Thoracic Spine wo [...] who have questions please contact the health care companion that requested your imaging first. ? Electronically signed by: Elizabeth Fishman MD, [facility] ([phone]), at 12/01/2022 12:53 AM Narrative 12/01/2022 12:53 [...] patients who have questions please contactthe health care companion that requested your imaging first. Electronically signed by: Elizabeth Fishman MD, [facility]([phone]), at 12/01/2022 12:53 AM Giovanna Mckeon APRN [facility] ORDERABLES * CT Head & Cervical [...] who have questions please contact the health care companion that requested your imaging first. ? Electronically signed by: Elizabeth Fishman MD, [facility] ([phone]), at 11/30/2022 9:36 PM Narrative 11/30/2022 9:36 [...] patients who have questions please contactthe health care companion that requested your imaging first. Electronically signed by: Elizabeth Fishman MD, [facility]([phone]), at 11/30/2022 9:36 PM Calista Barrera MD IM CT ORDERABLES * Troponin (11/30/2022 8:05 PM EDT) Troponin-T, High Sensitivity <6 <=14 ng/L [facility] Comment: This patient's troponin T [...] troponin value can be found in the Counts Include [facility] Laboratory Test Catalog Troponin - Counts Include [facility] Laboratory Test Catalog Reference: Fourth [place] Definition of Myocardial Infarction. Journal of the [place] [employer] 2018;72:2352-0477 Blood Venous Draw / Unknown 11/30/2022 8:05 PM EDT 11/30/2022 8:34 PM EDT Narrative Resulting Agency Comment Spec In Lab Twila Ahumada MD CHEMISTRY ORDERABLES [facility] [place] [address] * Differential, Automated (11/30/2022 8:05 PM EDT) Neutrophil % 58.4 % [facility] Neutrophil Absolute 5.06 1.70 - 6.10 x10(3)/[facility] Lymph % 31.3 % [facility] Lymphocytes Abs 2.7 0.9 - 3.2 x10(3)/[facility] Monocyte % 6.8 % [facility] Monocyte Abs 0.6 0.3 - 0.9 x10(3)/[facility] Eos % 3.0 % [facility] Eosinophils Abs 0.3 0.0 - 0.4 x10(3)/[facility] Basophil % 0.2 % [facility] Baso Absolute 0.0 0.0 - 0.1 x10(3)/[facility] Immature Gran % 0.30 % [facility] Comment: Immature granulocytes(IG's)percentage and absolute count will include metamyelocytes, myelocytes, and promyelocytes. Blood smears from CBCs yielding IG's will be scanned manually for concordance. If this scan disagrees with the automated IG or if promyelocytes are noted, a manual differential will be performed. Immature Gran Absolute 0.03 0.00 - 0.04 x10(3)/mcL [facility] Blood 11/30/2022 8:05 PM EDT 11/30/2022 8:33 PM EDT Narrative Resulting Agency Comment Spec In Lab Guido MARSHALL HEMATOLOGY ORDERABLE S Performing Organization Address City/[facility]/ZIP Co de Phone Number [facility] [place] [address] * (ABNORMAL) Hemogram (11/30/2022 8:05 PM EDT) White Blood Cell 8.7 4.0 - 9.5 x10(3)/mc L [facility] Red Blood Cell 4.09 4.00 - 5.21 x10(6)/mc L [facility] Hemoglobin 13.2 11.7 - 15.5 g/dL [facility] Hematocrit 37.7 35.7 - 45.8 % [facility] Mean Cell Volume 92.2 82.6 - 94.4 fL [facility] Mean Cell Hemoglobin 32.3(H) 27.1 - 32.0 pg [facility] Mean Cell Hemoglobin Concentration 35.0 31.7 - 35.0 g/dL [facility] Platelet 260 145 - 357 x10(3)/mc L [facility] RDW Standard Deviation 42.5 37.0 - 46.0 fL [facility] RDW coefficient of variation 12.6 11.5 - 14.1 % [facility] Mean Platelet Volume 9.0 7.6 - 12.9 fL [facility] NRBC% auto 0.0 % [facility] NRBC Absolute 0.000 0.000 - 0.000 x10(3)/mc L [facility] Blood 11/30/2022 8:05 PM EDT 11/30/2022 8:33 PM EDT Narrative Resulting Agency Comment Spec In Lab Giudo MARSHALL HEMATOLOGY ORDERABLE S Performing Organization Address City/[facility]/ZIP Co de Phone Number [facility] [place] [address] * (ABNORMAL) Basic Metabolic Panel (non-fasting) (11/30/2022 8:05 PM EDT) Glucose 132 65 - 199 mg/dL [facility] Comment:Diabetes: >=200 mg/d L plus symptoms Blood Urea Nitrogen 8 8 - 18 mg/dL [facility] Creatinine 0.62(L) 0.70 - 1.20 mg/dL [facility] Sodium 133(L) 135 - 145 mmol/L [facility] Potassium 4.3 3.5 - 5.0 mmol/L [facility] Comment: Please note: ??Patients with WBC >100,000 may have falsely elevated Potassium levels. ??For accurate Potassium quantification in these patients send serum separator tube (gold top) for subsequent determinations. ??Contact the Clinical Chemistry Laboratory if there are any questions. Chloride 99 98 - 107 mmol/L [facility] Carbon Dioxide 20(L) 22 - 31 mmol/L [facility] Anion Gap 14 5 - 15 mmol/L [facility] Calcium 9.3 8.5 - 10.5 mg/dL [facility] Est Glomerular Filtration Rate 101 >=60 mL/min/1. 73 m?? [facility] Comment: This patient's estimated GFR [...] Lab Calista Barrera MD CHEMISTRY ORDERABLE S [facility] [place] [address] documented in this encounter Visit Diagnoses Diagnosis [...] 1 tablet, Oral, EVERY 4 HOURS PRN, Pain, Starting on Tue12/01/22 at 1615, Until Tue12/05/22 at 0232, Ask provider whether to use oxycodone or Codeine #3. Given 12/03/2022 11:46 AM EDT 1 tablet [...] 2 g, Intravenous, ONCE, 1 dose, On Tue12/02/22 at 2145, Administer over 30 Minutes, Initiate [...] applied? Please also specify in administration instructions. Other / L shoulder, Dose of medication being applied? 4 gram dose Given 12/15/2022 8:58 PM EDT 1 g Given 12/15/2022 8:55 AM EDT [...] Intravenous, EVERY 5 MIN PRN, Starting on Tue12/02/22 at 1722, Until Tue12/02/22 at 2003, Pain, Mild to moderate pain (1-5 out [...] TIMES DAILY, 10 doses, First dose on 12/04/22 at 2115, Last dose on Tue12/09/22 at [...] Cristina Gan RN) 2049 (Given - Provider: Cnidy Morejon RN) atenoloL (Tenormin) tablet 50 mg [...] LPN)2048 (Given - Provider: Cindy Morejon RN) 08 (Given - Provider: [place] Forde, OLIVIA) famotidine (Pepcid) (10 mg/mL) injection 20 mg(Linked Group 1) 20 mg, Intravenous, 2 TIMES DAILY, First dose on Tue12/01/22 at 1118, Until Discontinued, Routine 0816 (See Alternative - Provider: Nicolasa Prince LPN)2054 (See Alternative - Provider: Cristina Gan RN) 0845 (See Alternative - Provider: Nicolasa Prince LPN)2049 (See Alternative - Provider: Cindy Morejon, OLIVIA) 0845 (See Alternative - Provider: Mali Forde, OLIVIA) [...] 0845 (Given - Provider: Mali Forde, OLIVIA) gabapentin (Neurontin) capsule 600 mg 600 mg, Oral, 3 TIMES DAILY, First dose (after last modification) on Tue12/01/22 at 2100, Until Discontinued, Routine 08 (Given - Provider: Nicolasa Prince LPN)1427 (Given - Provider: Mayuri Patel RN)2054 (Given - Provider: Cristina Gan RN) 08 (Given - Provider: Nicolasa Prince LPN)141 (Given - Provider: Mayuri Patel RN)2049 (Given - Provider: Cindy Morejon RN) 0845 (Given - Provider: Mali Forde RN) heparin (porcine) (5,000 units/1 mL) subcutaneous injection 5,000 Units 5,000 Units, Subcutaneous, EVERY 12 HOURS SCHEDULED (2 times per day), First dose on Tue12/03/22 at 1030, Until Discontinued, Routine 08 (Given - Provider: Nicolasa Prince LPN)2057 (Given - Provider: Cristina Gan RN) 08 (Given - Provider: Nicolasa Prince LPN)2050 (Given - Provider: Cindy Morejon RN) 0846 (Given - Provider: Mali Forde RN) lidocaine (Lidoderm) 5% patch 3 patch 3 patch, Transdermal, Administer over 12 Hours, EVERY 24 HOURS, First dose on Tue12/01/22 at 1945, Until Discontinued, Apply patch(es) for 12 hours, and then remove for 12 hours., Routine 08 (Patch Removed - Provider: Nicolasa Prince LPN)2057 (Patch Applied - Provider: Cristina Gan RN - Comment: shoulders) 0858 (Patch Removed - Provider: Nicolasa Prince LPN)2050 (Patch Applied - Provider: Cindy Morejon RN) 0851 (Patch Removed - Provider: Mali Forde RN) loratadine (Claritin) tablet 10 mg 10 mg, Oral, DAILY, First dose on Tue12/01/22 at 1118, Until Discontinued, Routine 08 (Given - Provider: Nicolasa Prince LPN) 0845 (Given - Provider: Nicolasa Prince LPN) 0845 (Given - Provider: Mali Forde, OLIVIA) methocarbamoL (Robaxin) tablet 500 mg 500 mg, Oral, EVERY 8 HOURS, First dose (after last modification) on Tue12/03/22 at 1230, Until Discontinued, Routine 0417 (Given - Provider: Cristina Gan RN)1230 (Given - Provider: Mayuri Patel, OLIVIA)2056 (Given - Provider: Cristina Gan RN) 0531 (Given - Provider: Cristina Gan RN)1230 (Given - Provider: Mayuri Patel, OLIVIA)2030 (Given - Provider: Cindy Morejon RN) 0430 (Given - Provider: Cindy Morejon RN)1230 (Given - Provider: Mali Forde, OLIVIA) nicotine (Nicoderm CQ) 21 mg/24 hr [...] LPN) 0845 (Patch Applied - Provider: Mali Forde, OLIVIA)0847 (Patch Removed - Provider: Mali Forde, OLIVIA)1259 (Due: Patch Removed - Provider: Automatic Discharge [...] - Provider: Cindy Morejon RN - Comment: Jose Ramon leo) 0855 (Patch (dose and location) verified - Provider: Mali Forde, OLIVIA) polyethylene glycoL (Miralax) packet 17 g [...] 0845 (Given - Provider: Mali Forde RN) sodium chloride 0.9 % (flush) (BD [...] Morejon, OLIVIA) 0554 (Given - Provider: Cindy Morejon RN) diclofenac (Voltaren) gel Topical (Top), 4 TIMES DAILY PRN, Pain, Starting on Tue12/14/22 at 1514, Until Tue12/16/22 at 1500, Apply topically to L shoulder. Total dose not to exceed 32 grams per day over all affected joints. Doses should be measured using the dosing cards supplied with the product., Where is this medication being applied? Please also specify in administration instructions. Other / L shoulder, Dose of medication being applied? 4 gram dose 1720 (Given - Provider: Nicolasa Prince LPN) 0855 (Given - Provider: Nicolasa Prince LPN)2058 (Given - Provider: Cindy Morejon RN) hydrALAZINE [...] Forde, OLIVIA)1203 (See Alternative - Provider: Mali Forde RN) oxyCODONE (Roxicodone) tablet 20-30 mg(Linked Group 4) [...] Morejon RN) 0047 (Given - Provider: Cindy Morejon RN)0428 (Given - Provider: Cindy Morejon RN)0845 (Given - Provider: Mali Forde, OLIVIA)1203 (Given - Provider: Mali Forde, OLIVIA) sodium [...] Routine documented in this encounter Care Teams Wool Hat Forming Machine Tender Relationship Specialty Start Date End Date Lena Womack, LEAD TINNER PCP - General Family Medicine 08/02/22 04/07/24 documented as of this encounter
--- OUTSIDE RECORDS SUMMARY | 2024-06-21 20:08 | XMS_ITS | Encounter Summary ---
Author Organization [facility] [place] [address] Care Team Providers Care Manager Net Name Role Phone Lena Womack APRN Primary Care Provider [phone] Reason for Visit * Auth/Cert (Routine) Specialty Diagnoses / Procedures Referred By Cosmo t Referred To Contact Diagnoses Cervical myelopathy Procedures ER IPI Tien Zurita MD [facility] [place] [address] [facility] Referral ID Status Reason Start Date Expiration Date Visits Re quested Visits Authorized [id number] 1 1 Encounter Details Date Type Department Care Team (Late st Contact Info) Description 12/02/2022 12:10 PM EDT Anesthesia Event [place] [address] Latonia Em MD [facility] [place] [address] Bartolo Sauceda CRNA [facility] [place] [address] Anesthesia Record Procedure Summary Procedure Name Responsible Anesthesiologist Anesthesia Start Time Anesthesia Stop Time @ARTHRODESIS, POSTERIOR CERVICAL SPINE (WRVU 17.4) (Spine Cervical) Latonia Em MD 12/02/22 1210 12/02/22 1709 Events Date [...] Lumen median vein (underside of arm), right; ppul-fxg-podoce catheter system; Anatomical Landmarks; 18 gauge; 12/05/22; 0841 12/02/22 1243 by 12/05/22 0841 by Mayuri Patel, RN (RETIRED) Peripheral IV Line - Single Lumen 12/01/22; 1557; cephalic vein (lateral side of arm), left; daty-lbc-pbuqcd catheter system; Anatomical Landmarks; 22 gauge, 1 [...] Removal Time: 165112/02/22 121 by Bartolo Sauceda, PHYSICAL MEDICINE PHYSICIAN 12/02/22 165 by Bartolo Sauceda, PHYSICAL MEDICINE PHYSICIAN Arterial Line 12/02/22; 1239; radi al artery, right; 20 gauge; Anatomical Landmarks, Guidewire; continuous blood pressure monitoring, frequent blood gas measurement; Joeiner; Sterile Prep, Sterile Gloves; 12/02/22; 1830 12/02/22 1239 by Bartolo Sauceda, PHYSICAL MEDICINE PHYSICIAN 12/02/22 1830 by Leidy Weaver RN Urethral [...] Procedure Summary Date: 12/02/22 Room / Location: [facility] OR [facility] MAIN OR Anesthesia Start: 1210 Anesthesia Stop: [...] All Anesthesia Providers: Anesthesiologist: Latonia Em MD PHYSICAL MEDICINE PHYSICIAN: Bartolo Sauceda CRNA Vitals Value Taken Time BP 129/86 12/16/22 1144 Temp 36.7 ??C (98.1 ??F) 12/16/22 1144 Pulse 82 12/15/22 1128 Resp 16 12/16/22 1144 SpO2 95 % 12/16/22 1144 Pain Level 7 12/16/22 0945 Patient Location: PACU/[facility] Level of Consciousness: Conscious but Sleepy Pain [...] MAMMOPLASTY, EVA performed by DEMETRA SOMMERS at [facility] MAIN OR ??? PRO LAP, DIAGNOSTIC ABDOMEN Left 08/02/2022 LAPAROSCOPY, DIAGNOSTIC, ABDOMEN (WRVU 5.14) performed by Antonio Rojas MD at [facility] OR ??? PRO REMOVAL OF OVARY/TUBE(S) Left 08/02/2022 @SALPINGO-OOPHORECTOMY, UNILATERAL OR EVA (WRVU 12.16) performed by Antonio Rojas MD at [facility] MAIN OR ??? PRO UPPER GI ENDOSCOPY, DIAGNOSTIC N/A 08/05/2022 EGD, UPPER GI ENDOSCOPY performed by Donnie Obrien MD at [facility] ENDOSCOPY Social History Tobacco Use ??? Smoking [...] discussed with patient who. Plan discussed with PHYSICAL MEDICINE PHYSICIAN. Anesthesia Screening documented in this encounter Plan [...] mg documented in this encounter Care Teams Manager Net Relationship Specialty Start Date End Date Lena Womack APRN PCP - General Family Medicine 08/02/22 04/07/24 documented as of this encounter
--- OUTSIDE RECORDS SUMMARY | 2024-06-21 20:09 | XMS_ITS | Encounter Summary ---
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 Urinary retention Lena Womack APRN [address] [place] [address] [facility] [address] [place] [phone] Referral ID Status Reason Start Date Expiration Date V isits Requested Visits Authorized [id number] Closed Consult, Test & Treat PCP Updated and/or Approved 10/04/2022 10/04/2023 12 12 Encounter Details Date Type Department Care Team (Late st Contact Info) Description 11/03/2022 3:00 PM EDT Office [place] [address] Tien Zurita MD [facility] [place] [address] Stenosis of cervical spine with [...] Zurita MD - 11/03/2022 3:00 PM EDT [facility] New Patient CHIEF COMPLAINT: Hand and leg weakness History Obtained From: the patient This patient is accompanied in the office by her . Referred by: Lena Womack APRN [address] [place] [address] HISTORY OF PRESENT ILLNESS: Katheryn Carranza is [...] MAMMOPLASTY, EVA performed by DEMETRA SOMMERS at [facility] MAIN OR ??? PRO LAP, DIAGNOSTIC ABDOMEN Left 08/02/2022 LAPAROSCOPY, DIAGNOSTIC, ABDOMEN (WRVU 5.14) performed by Antonio Rojsa MD at [facility] MAIN OR ??? PRO REMOVAL OF OVARY/TUBE(S) Left 08/02/2022 @SALPINGO-OOPHORECTOMY, UNILATERAL OR EVA (WRVU 12.16) performed by Antonio Rojas MD at [facility] MAIN OR ??? PRO UPPER GI ENDOSCOPY, DIAGNOSTIC N/A 08/05/2022 EGD, UPPER GI ENDOSCOPY performed by Donnie Obrien MD at [facility] ENDOSCOPY Social History: Patient currently smokes three [...] Extension 4+ 3 Finger Abduction 4+ 3 Gaggerman 4+ 3 Pincer 4+ 3 Hip Flexion [...] and charting the visit. Tien Zurita MD [facility] Section of Neurosurgery Department of Surgery [facility] documented in this encounter Plan of Treatment Not on file documented as of this encounter Visit Diagnoses Diagnosis Stenosis of cervical spine with myelopathy documented in this encounter Care Teams Archery Equipment Hay Sorter Relationship Specialty Start Date End Date Lena Womack APRN PCP - General Family Medicine 08/02/22 04/07/24 documented as of this encounter
--- OUTSIDE RECORDS SUMMARY | 2024-06-21 20:09 | XMS_ITS | Encounter Summary ---
Author Organization [facility] [place] [address] Care Team Providers Care Metal Casket Assembler Name Role Phone Lena Womack APRN Primary Care Provider [phone] Encounter Details Date Type Department Care Team [...] filedocumented in this encounter Care Teams Metal Casket Assembler Relationship Specialty Start Date End Date Lena Womack APRN PCP - General Family Medicine 08/02/22 04/07/24 documented as of this encounter
--- OUTSIDE RECORDS SUMMARY | 2024-06-21 20:09 | XMS_ITS | Encounter Summary ---
[place] [address] Care Team Providers Care Supervisor Fusing Room Name Role Phone Brunonunu Lena Nunu MEJIA Primary Care Provider Encounter Details Date Type Department Care Team (Latest Contact Info) Description 08/16/2022 11:00 AM EDT Clinical Support [place] [id number] Sury Madden, RN Encounter for staple removal [...] sutures documented in this encounter Care Teams Supervisor Fusing Room Relationship Specialty Start Date End Date Lena Womack APRN PCP - General Family Medicine 08/02/22 04/07/24 documented as of this encounter
--- OUTSIDE RECORDS SUMMARY | 2024-06-21 20:09 | XMS_ITS | Encounter Summary ---
Author Organization [facility] [place] [address] Care Team Providers Care Printer Repair Technician Name Role Phone Lena Womack APRN Primary Care Provider Encounter Details Date [...] on filedocumented in this encounter Care Teams Printer Repair Technician Relationship Specialty Start Date End Date Lena Womack APRN PCP - General Family Medicine 08/02/22 04/07/24 documented as of this encounter
--- OUTSIDE RECORDS SUMMARY | 2024-06-21 20:09 | XMS_ITS | Encounter Summary ---
[place] [address] Care Team Providers Care Veneer Gluer Name Role Phone Lena Womack APRN Primary Care Provider [phone] Encounter Details Date Type Department Care Team (Late st Contact Info) Description 09/25/2022 External Results [place] [address] Social History Tobacco Use Types [...] * Scan Doc: ECG (09/25/2022) Historical Provider MD ROGER MGJose Ramon SCAN EX T ORDR/RSLT documented in this encounter Visit Diagnoses Not on filedocumented in this encounter Care Teams Veneer Gluer Relationship Specialty Start Date End Date Lena Womack APRN PCP - General Family Medicine 08/02/22 04/07/24 documented as of this encounter
--- OUTSIDE RECORDS SUMMARY | 2024-06-21 20:09 | XMS_ITS | Encounter Summary ---
Author Organization [facility] [place] [address] Care Team Providers Care Precision Crop Manager Name Role Phone BrunoLena eddy Ronal MEJIA Primary Care Provider Reason for Visit * Reason Comments Abdominal Pain Left ovarian mass Back Pain Fall * Auth/Cert (Routine) Specialty Diagnoses / Procedures Referred By Contac t Referred To Contact Diagnoses Adnexal mass Antonio Rojas MD [facility] Referral ID Status Reason Start Date Expiration Date Visits Re quested Visits Authorized [id number] 1 1 Encounter Details Date Type Department Care Team (Latest Contact Info) Description 08/01/2022 9:16 PM EST - 08/08/2022 3:38 PM EST Hospital Encounter Hematology Special Care Unit Level 1 [place] [id number] Oumou Villar MD [facility] [place] [address] Antonio Rojas MD Adnexal mass Discharge Disposition: Home Social History [...] Katheryn Carranza Patient Age: 61 y.o. Language: Guamanian Race: White Ethnicity: Not nor Admit date: [...] Inpatient Provider Contact Information: Dr. Antonio Rojas, [facility] Gynecologic Oncology, Discharge Diagnoses (Hospital Problems) [...] 07/29/21, she presented to the ED at [facility]. She had a CTAP demonstrating a 15cm complex left adnexal mass. She also had a CT spine performed without acute findings. Patient was dispositioned to outpatient follow-up with Infrastructure Manager Oncology at [facility]. ?? Tonight, she reports worsening pain in [...] There were no concern for malignancy. #Pain: SENIOR CLINICAL STUDY MANAGER started for pain control for her abdominal and back pain. BIT team consulted due to using opioids without Rx at home and to assist with overall assessment and plan for going home. SENIOR CLINICAL STUDY MANAGER was eventually transitioned to PO tylenol, ibuprofen, [...] Yellow Yellow Appearance UA Clear Clear Spec Lorane UA 1.005 - 1.030 1.011 pH UA [...] Tumor markers 08/01/22: CA-125=40.8 / CEA=2.2 / DP66-7=8.1 Studies: EGD 08/05/22: ??The examined esophagus was [...] 90 tablet Refills: 3 naloxone 4 mg/actuation Milam Commonly known as: Narcan 1 each by [...] 0 dihydroergotamine 0.5 mg/pump act. (4 mg/mL) Milam Commonly known as: MIGRANAL One spray per [...] PATIENT DISCHARGE INSTRUCTIONS Gynecologic Oncology phone number: [phone] (Nurse ext 4 then 4; appointment ext 1 then 4). After hours and on weekends please call hospital power grader operator at [phone] and ask for Gynecologic Oncologist stoneworking sander. Call your doctor if you develop: --A fever over 101 degrees --Severe pain --Increasing pain, redness, or discharge at your incision -Staple removal and follow-up with Dr. Rjoas on 08/16/22 at 10:00AM -Follow-up with PCP [...] useof opioid medications, here are some options: [facility], [facility] Saumya Kumari, Drug & Alcohol Counselor, MS, [facility] [address] [place] [address] Offers online therapy Watson Wiley, Drug & Alcohol Counselor, MS, [facility], ICGC-1, MAC 4 [facility] [address] [place] [address] Offers online therapy [facility] Asha Quintana, Drug & Alcohol Counselor, MA, [facility], [place], [place] [address] Offers online therapy [facility], [facility] Ara Pratt, Drug & Alcohol Counselor, [facility], [facility] [address] [place], [place] [address] Offers online therapy [facility] Jose Miguel Dominique, Pre-Licensed Professional, TRANSITION COACH [address] [place], [place] [address] x9 Scott Young, Drug & Alcohol Counselor, MS, [facility], NCC [address] [place], [place] [address] Offers online therapy Dr. Michel Junior, Drug & Alcohol Counselor, Irma, MA, [facility], Th, [facility] [address] [facility] [address] [place], [place] [id number] Offers online therapy To review the profiles of private practice therapists, including ones listed above: 1) Visit www.psychologytoday.com 2) Enter your city name or zip code 3) Filter search results on the right hand side, including by insurance 4) Review therapist profiles 5) Call to schedule an intake appointment Residential Treatment: [facility] ([facility]) [facility] [place], [place] [phone] [facility] [address] [place] [address] [facility] [address] [place] [address] [address] Medication Assisted Therapy: [facility] Health [facility] is a suboxone clinic in [address] [address] Services: Buprenorphine treatment Substance use treatment People with trauma, people with HIV or AIDS and people with co-occurring pain and substance use Naltrexone administration, methadone maintenance and suboxone prescription Peer Support Groups Narcotics Anonymous (NA) [place]: , www.gsana.org Online NA Meetings NA Video Meetings www.virtualBoxbena.org/meetings NA Text Chat Meetings [email or web address] [email or web address] SMART Recovery Meetings via Zoom 5:00-6:00pm, free and open to all To join Zoom meetin. Visit [email or web address] 5. Click on calendar on top of toolbar 6. Find the correct meeting date and time 7. Click the zoom link and enter password provided 211: [facility], managed by [facility], is located at [address] [facility] in [place]. It offers screening as well as other services onsite, and connects clients with the care that is most appropriate for their needs. Services are accessible anytime, day or night, by calling 2-1-1. Overnight, respite care is available in [facility] and [place]. Additional Substance Use Treatment Resources www.[facility].al.gov/dcbcs/bdas/documents/ixjcbguj-cdgfc-jmlatkees.pdf www.psychologyInventables.Seven Technologies/ Www.rethinkingdrinking.niaaa.nih.gov/ www.samhsa.gov/dxvfdjdfgf-nfiulprb-typrcsrux/lvonktfwjetq-vochxko-rxfk/treatment -practitioner-remote control assembler Mental Health Crisis [place] Mental [facility] Crisis Line: Dial 988 www.samhsa.gov/find-help/988 Harm-Reduction Resources Mobile harm-reduction. For more information about receiving supplies: including syringe exchange, fentanyl test strips, and naloxone, or to schedule an appointment: [place] clients call and leave a message for Nancy (ext. 105) or Maeto Cruz (ext. 104). [place] clients call to speak with Mateo Feliz www.[facility].al.gov/dphs/bchs/std/documents/sspregistrations.pdf Warning Illicit drugs do not come with [...] is being approved. Online Stress Reduction Resources www.Volex/videos-features/videos/ujjhhjced-eremvqmrw-7-7-8-breath/ www.IBillionaireindNimbitword.org/2013/hgzzkycpj-sillwmsvi-yxanjti-moment/ www.headsENDOGENX.Seven Technologies/ www.mindful.org/ www.freemindfulness.org/ Future Appointments and Orders Future Appointments and Orders Future Appointments Provider Department Dept Phone 08/16/2022 10:00 AM Antonio Rojas MD Gynecology Oncology at [facility] Arrive at: [facility] [phone] 08/16/2022 11:00 AM Infrastructure Manager, Onc Nurse Gynecology Oncology at [facility] Arrive at: [facility] [phone] Discharge References/Attachments Prediabetes (Guamanian) Provider Contact Information: Lena Womack, DRIVER LICENSE AGENT [phone] documented in this encounter Discharge Instructions * Discharge Instructions* Sharon Tse MD - 08/05/2022 10:57 AM EST Substance Use Disorder Resources From BIT (Behavioral Intervention Team), Inpatient psych services: If you are interested in receiving some counseling support related to reducing or stopping your useof opioid medications, here are some options: [facility], [facility] Saumya Kumari, Drug & Alcohol Counselor, MS, [facility] [address] [facility] [address] [place], [place] [phone] Offers online therapy Watson Wiley, Drug & Alcohol Counselor, MS, [facility], ICGC-1, MAC 4 [facility] [address] [place] [address] Offers online therapy [facility] Asha Quintana, Drug & Alcohol Counselor, [place], [facility], [place], [place] [address] Offers online therapy [facility], [facility] Ara Pratt, Drug & Alcohol Counselor, [facility], [facility] [address] [place], [place] [address] Offers online therapy [facility] Jose Miguel Dominique, Pre-Licensed Professional, TRANSITION COACH [address] [place], [place] [address] x9 Scott Young, Drug & Alcohol Counselor, [place], [facility], NCC [address] [place], [place] [address] Offers online therapy Dr. Michel Junior, Drug & Alcohol Counselor, Irma, MA, [facility], ThM, BS[facility] [address] [facility] [address] [place], [place] [phone] Offers online therapy To review the profiles of private practice therapists, including ones listed above: 1) Visit www.psychologyInventables.Seven Technologies 2) Enter your city name or zip code 3) Filter search results on the right hand side, including by insurance 4) Review therapist profiles 5) Call to schedule an intake appointment Residential Treatment: [facility] ([facility]) An [facility] [address] [place] [address] [facility] [address] [place], [place] [phone] [facility] Behavioral Health [address] [place] [address] [facility] [address] [facility] [place] [address] Medication Assisted Therapy: [facility] [place] [address] [place] [address] Services: Buprenorphine treatment Substance use treatment People with trauma, people with HIV or AIDS and people with co-occurring pain and substance use Naltrexone administration, methadone maintenance and suboxone prescription Peer Support Groups Narcotics Anonymous (NA) [place]: , www.gsana.org Online NA Meetings NA Video Meetings www.Ricebookna.org/meetings NA Text Chat Meetings Www.Kili ([email or web address])[email or web address].org SMART Recovery Meetings via Zoom 5:00-6:00pm, free and open to all To join Zoom meeting: Visit [email or web address] Click on calendar on top of toolbar Find the correct meeting date and time Click the zoom link and enter password provided 211: [facility], managed by [facility], is located at [address] [facility] in [place]. It offers screening as well as other services onsite, and connects clients with the care that is most appropriate for their needs. Services are accessible anytime, day or night, by calling 2-1-1. Overnight, respite care is available in [facility] and [place]. Additional Substance Use Treatment Resources www.dhhs.nh.gov/dcbcs/bdas/documents/gywhcaqb-ojxba-zoxvcnewq.pdf www.psychologytoday.Seven Technologies/ Www.rethinkingdrinking.niaaa.nih.gov/ www.samhsa.gov/ceewaqqelm-pupruvcg-liimnrlvb/pdrxtnzcsiil-bqzrrps-hbor/treatment -practitioner-remote control assembler Mental Health Crisis [place] Mental Health Crisis Line: Dial 988 www.[facility] gorgea.gov/find-help/988 Harm-Reduction Resources [place] harm-reduction. For more information about receiving supplies: including syringe exchange, fentanyl test strips, and naloxone, or to schedule an appointment: [place] clients call and leave a message for Nancy (ext. 105) or Mateo Cruz (ext. 104). [place] clients call to speak with Mateo Feliz www.[facility].al.gov/dphs/bchs/std/documents/sspregistrations.pdf Warning Illicit drugs do not come with [...] is being approved. Online Stress Reduction Resources www.BroadSoftil.Seven Technologies/videos-features/videos/sbimwwjry-atevhcrcz-4-7-8-breath/ www.IBillionaireindfulword.org/2013/onpojnyhf-oqpfuukjm-eqkdzvk-moment/ www.headsENDOGENX.Seven Technologies/ www.mindful.org/ www.freemindfulness.org/ * Patient Instructions* Sharon Tse MD - 08/03/2022 9:56 AM EST PATIENT DISCHARGE INSTRUCTIONS Gynecologic Oncology phone number: [phone] (Nurse ext 4 then 4; appointment ext 1 then 4). After hours and on weekends please call hospital power grader operator at [phone] and ask for Gynecologic Oncologist stoneworking sander. Call your doctor if you develop: --A [...] be sent through Care Everywhere. * Prediabetes (Guamanian) documented in this encounter Medications at Time of Discharge Medication Sig Dispensed Refills Start Date End Date levalbuteroL (XOPENEX HFA) 45 mcg/actuation HFA Aerosol Inhaler .COMPLEX 11/20/2013 pantoprazole EC (Protonix) 40 mg Tablet, Delayed [...] tablet Take 50 mg by mouth daily. acetaminophen (Tylenol) 325 mg Tablet Take 2 [...] regular diet for breakfast/lunch. Abd. pain present. SENIOR CLINICAL STUDY MANAGER discontinued this AM and patient transitioned to [...] of opioid dependence ??? Ordered for dilaudid SENIOR CLINICAL STUDY MANAGER due to patient discomfort and NG tube [...] EST Patient seen and examined with the visual supervisor oncology team. I agree with their assessment [...] but denies need for intervention. On dilaudid SENIOR CLINICAL STUDY MANAGER and scheduled pain meds with good effect. [...] Yellow Yellow Appearance UA Clear Clear Spec Lorane UA 1.005 - 1.030 1.011 pH UA [...] of opioid dependence ??? Ordered for dilaudid SENIOR CLINICAL STUDY MANAGER due to patient discomfort and NG tube [...] EST Patient seen and examined with the visual supervisor oncology team. I agree with their assessment [...] but denies need for intervention. On dilaudid SENIOR CLINICAL STUDY MANAGER and scheduled pain meds with good effect. [...] Pain continues to be managed with Dilaudid SENIOR CLINICAL STUDY MANAGER and tylenol. Diet changed to NPO give [...] Prieto, in a two level home in [place], [place]. Bedroom and bathroom she typically uses [...] per neurosurg) Lines: Ted, PIV, NG tube, SENIOR CLINICAL STUDY MANAGER Activity Orders: Up with assistance Diet: NPO [...] moderate mid-low back with transfers, pt used SENIOR CLINICAL STUDY MANAGER at start of session and end of [...] benefit from a short rehab stay [facility] to progress mobility and maximize [...] Code: TEF x2 Demetra Hess PT Pager: [phone] Physical Therapy Inpatient Rehabilitation Department * Fifi [...] Typical intake is 2-3 meals/day includingyogurt and Malawian toast with syrup, sandwich with cheese and deli meat for lunch and meat/potatoes/vegetable for dinner. Drinks coffee with sugar and flavored creamer. Denies changes in intake, appetite or weight LICSW. Reviewed sources of added sugar in diet [...] was able to discuss plan with provider Infrastructure Manager Onc [id number] Pager #: [phone] * Lola Barahona MD - 08/06/2022 6:48 [...] Yellow Yellow Appearance UA Clear Clear Spec Lorane UA 1.005 - 1.030 1.011 pH UA [...] of opioid dependence ??? Ordered for dilaudid SENIOR CLINICAL STUDY MANAGER due to patient discomfort and NG tube [...] LR continued at 100 mL/hr and dilaudid SENIOR CLINICAL STUDY MANAGER in use. Patient sleeping between nursing care. [...] Fluids restarted. Suppository given. Controlling pain with SENIOR CLINICAL STUDY MANAGER pump. * Jeannine Amos OT - 08/05/2022 [...] up as able and when appropriate. Pager: [phone] Jeannine Amos OT 08/05/2022 Occupational Therapy Rehabilitation [...] into upper-abdominal tightness overnight followed by vomiting. [place] warm earlier but no fever or chills. [...] I/O flowsheet. Patient still vomiting after CT, notified. IV Reglan given. down and gen [...] to her uncontrolled pain. Discussed with pharmacist stoneworking sander- okay to treat with 1x dose metoprolol [...] of care otherwise pending CT results Addendum: 221 CTAP: IMPRESSION Findings suggesting pyelonephritis of the [...] endoscopy - NPO hold meds - 18 Malawian NGT placed to 58cm with >1L output. [...] back with 1 assist and walker. Dilaudid SENIOR CLINICAL STUDY MANAGER discontinued and started on PO oxycodone - [...] MAMMOPLASTY, EVA performed by DEMETRA SOMMERS at [facility] MAIN OR ??? PRO LAP, DIAGNOSTIC ABDOMEN Left 08/02/2022 LAPAROSCOPY, DIAGNOSTIC, ABDOMEN (WRVU 5.14) performed by Antonio Rojas MD at [facility] MAIN OR ??? PRO REMOVAL OF OVARY/TUBE(S) Left 08/02/2022 @SALPINGO-OOPHORECTOMY, UNILATERAL OR EVA (WRVU 12.16) performed by Antonio Rojas MD at [facility] MAIN OR Active Non-Hospital Problems Diagnosis ??? [...] outlinedin this evaluation. Time IN / OUT: 7353-9868 Total Minutes, Physical Therapy: 37 Dawn Fung, PT Pager: [phone] Physical Therapy Inpatient Rehabilitation Department * Nevaeh [...] MAMMOPLASTY, EVA performed by DEMETRA SOMMERS at [facility] MAIN OR ??? PRO LAP, DIAGNOSTIC ABDOMEN Left 08/02/2022 LAPAROSCOPY, DIAGNOSTIC, ABDOMEN (WRVU 5.14) performed by Antonio Rojas MD at [facility] MAIN OR ??? PRO REMOVAL OF OVARY/TUBE(S) Left 08/02/2022 @SALPINGO-OOPHORECTOMY, UNILATERAL OR EVA (WRVU 12.16) performed by Antonio Rojas MD at [facility] MAIN OR Social History: Home Setup: Pt [...] Educated on and demonstrated adaptive techniques with management supervisor and sock aide. Pt doffed socks sitting EOB with supervision and management supervisor. Pt donned underwear seated EOB with supervision, management supervisor, and min cues for technique. Pt donned [...] throughout session. Pt demonstrated good carryover with management supervisor and sock aide for donning underwear and [...] session performed and note written with this lead technical writer. Please do not hesitate to contact this lead technical writer with any questions, thank you. Jeannine Amos OT Pager #[phone] Inpatient Rehabilitation * Antonio Rojas MD - [...] a 6/10 at rest. She feels the SENIOR CLINICAL STUDY MANAGER is helping her pain, but she finds [...] multimodal regimen as detailed below. Will wean SENIOR CLINICAL STUDY MANAGER as able, and plan BIT team consult [...] #Analgesia #History of opioid dependence ??? Dilaudid SENIOR CLINICAL STUDY MANAGER-demand only. Plan to transition to PO medications [...] intact. Sat inchair today. Continues with Dilaudid SENIOR CLINICAL STUDY MANAGER - pain moderately managed. Abdominal binder used [...] multimodal regimen as detailed below. Will wean SENIOR CLINICAL STUDY MANAGER as able, and plan BIT team consult [...] #Analgesia #History of opioid dependence ??? Dilaudid SENIOR CLINICAL STUDY MANAGER- demand only. Can consider adding continuous rate [...] periods of time to gather supplies. Dilaudid SENIOR CLINICAL STUDY MANAGER in use and continued on scheduled toradol [...] has abdominal pain and is using a SENIOR CLINICAL STUDY MANAGER but denies any leg pain now, though [...] PRN. Gloria Hdz MD 08/03/2022 3:29 AM [facility] Neurosurgery Inpatient Pager: #[phone] Personal Pager: #[phone] * Antonio Rojas MD - 08/03/2022 1:22 AM EST Infrastructure Manager Oncology - Progress Note Katheryn Carranza is [...] immediately post-operatively. Though endorsing minimal effect from SENIOR CLINICAL STUDY MANAGER analgesia, exam findings are overall reassuring against pain that is cef-lu-rwdbsjuytq to what is expected post-operatively and she is able to sleep comfortably. We discussed continued trial of demand-only SENIOR CLINICAL STUDY MANAGER, but can consider a continuous rate if needed given history of opioid dependence. Please see systems based plan below: Neuro:??Presenting concern was progressive bilateral lower extremity numbness, find to have a left paracentral disc herniation at L5/S1 as well as fracture at T12. #Bilateral lower extremity numbness ??? Neurosurgery consulted, appreciate continued recommendations #Analgesia #History of opioid dependence ??? Dilaudid SENIOR CLINICAL STUDY MANAGER- demand only. Can consider adding continuous rate [...] Manzanares RN - 08/02/2022 9:29 PM EST 1: Katheryn Carranza arrives from OR 8 on [...] per protocol ??? Neurology consulted ??? Dilaudid SENIOR CLINICAL STUDY MANAGER, Tylenol, toradol ??? Home tizanidine, flexeril continued [...] ?? Patient discussed with Dr. Rojas, attending Infrastructure Manager Oncologist. ?? Angely Scruggs MD PGY-4 08/02/22 [...] 07/29/21, she presented to the ED at [facility]. She had a CTAP demonstrating a 15cm complex left adnexal mass. She also had a CT spine performed without acute findings. Patient was dispositioned to outpatient follow-up with Infrastructure Manager Oncology at [facility]. Tonight, she reports worsening pain in her [...] family. Social History and Habits: lives in [place], [place]. 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 Dilaudid SENIOR CLINICAL STUDY MANAGER, Tylenol, toradol ??? Home tizanidine, flexeril continued [...] seen and discussed with Dr. Rojas, attending Infrastructure Manager Oncologist. Bubba Schroeder MD PGY-3 08/02/2022 I [...] at OSHrecently. Her pain has been severe. Infrastructure Manager has not formally evaluated yet. Gynecology has [...] Appears to be sleeping at this time. Nai Wild MD - 08/02/2022 1:29 AM EST ED [...] The patient presented at that time to [facility] where she had CT of the chest, [...] Patient signed out to oncoming team awaiting TEMPERER pelvic exam, further pain control, and MRI [...] abd on the left. Was seen at [facility] ED and CTs of abd and L spine were done. 15cm left ovarian mass identified. Has only a right kidney from . Ultrasound done at [facility] showed a large cyst. [facility] as her pain has [...] Leukocytes UA Negative Appearance UA Clear Spec Lorane UA 1.004 (L) Color UA Yellow Culture [...] Validity Result Value T&S only valid at [facility] Hosp Infrastructure Manager consult for right ovarian mass with intractable pain. She also has significant back pain and needs evaluation to determine if this represents metastasis from undiagnosed cancer Assessment/plan: Pelvic mass with intractable pain Admission to visual supervisor Oumou Villar MD 08/02/22 0858 * Thom [...] 61 y.o. female currently admitted to the Infrastructure Manager Onc service s/p diagnostic lap converted to [...] approximated withstaples NEURO: grossly intact Recent Labs 08/04/22 2324 08/01/222214 WBC 10.1* 12.6* HGB 13.6 13.7 HCT 39.1 39.3 PLATELET 285 286 Recent Labs 08/06/22 0518 08/04/22232308/01/222214 NA 139 137 136 K 3.3* 3.6 4.1 CL 99 101 101 CO2 24 23 BUN 10 10 13 CREATININE [...] General Surgery will sign off. Please page [phone] with any questions. Faiza Huang MD General Surgery PGY-2 08/06/2022 11:32 AM * Consult Note - Tosin Bland LCErma - 08/05/2022 12:10 PM EST DEAN (Behavioral Intervention Team) DEAN [facility] checked in with patient briefly. She talked about yesterday's experience and her concern about her GI system. Patient having visit with family, so BIT will return at a later time. Tosin Bland MA, [facility] [facility] (Behavioral Intervention Team) Dept. of Psychiatry - Inpatient Psych. Services Pager: [phone] Electronically signed by Tosin Bland [facility] at 08/05/2022 1:39 PM EST * Consult Note - Sarah Reed MD - 08/05/2022 7:43 AM EST Images from the original note were not included. DIVISION OF GASTROENTEROLOGY & HEPATOLOGY INITIAL CONSULT REQUESTING PROVIDER: Antonio Rojas MD NAME: Katheryn Carranza : 1960 HPI: Katheryn Carranza 61 y.o./ w/ PMH of Depression/Anxiety, HTN, opiate dependence adm 08/01/2022 9:16 PM to the Infrastructure Manager-Onc service for surgical management of complex adnexal mass. GI is consulted for concern of GOO. Per chart review, the patient presented to OSH on 07/29 where she had a CTAP that showed 15cm complex left adnexal mass. She was sent home with visual supervisor onc f/u. She then developed worsening abdominal [...] MAMMOPLASTY, EVA performed by DEMETRA SOMMERS at [facility] MAIN OR ??? PRO LAP, DIAGNOSTIC ABDOMEN Left 08/02/2022 LAPAROSCOPY, DIAGNOSTIC, ABDOMEN (WRVU 5.14) performed by Antonio Rojas MD at [facility] MAIN OR ??? PRO REMOVAL OF OVARY/TUBE(S) Left 08/02/2022 @SALPINGO-OOPHORECTOMY, UNILATERAL OR EVA (WRVU 12.16) performed by Antonio Rojas MD at [facility] MAIN OR SOCIAL HX: Social History Socioeconomic [...] (MIGRANAL) 0.5 mg/pump act. (4 mg/mL) [place], Non-Aerosol One spray per nostril, while holding [...] [20-22] SpO2 SpO2: [91 %-97 %] 08/04 07 - 08/05 0700 In: 3864 [P.O.:1960; I.V.:1904] [...] 23 CALCIUM 9.2 9.2 HEPATIC: Recent Labs 08/04/22232308/01/22 2215 BILITOT 0.3 0.2 BILIDIR -- 0.1 [...] who have questions please contact the health manager career that requested your imaging first. Abdomen & [...] who have questions please contact the health manager career that requested your imaging first. Lumbar Spine [...] who have questions please contact the health manager career that requested your imaging first. Thoracic Spine [...] who have questions please contact the health manager career that requested your imaging first. Request For [...] who have questions please contact the health manager career that requested your imaging first. Request For [...] who have questions please contact the health manager career that requested your imaging first. Request for [...] who have questions please contact the health manager career that requested your imaging first. Film Library- Storage Only Ultrasound Study Final Result Film Library- Storage Only CT Spine Final Result Film Library- Storage Only CT Chest Abdomen Pelvis Final Result ENDOSCOPY: Reports and images personally reviewed in [facility] OSH RECORDS: Obtained and personally reviewed ASSESSMENT & PLAN: Katheryn Carranza 61 y.o./ w/ PMH of Depression/Anxiety, HTN, opiate dependence adm to the Infrastructure Manager-Onc service for surgical management of complex adnexal [...] them as documented. Donnie Obrien MD, NARAYAN [employer] Cuttersenior java j2ee developer Section of Gastroenterology and Hepatology * Consult Note - Jf Hawk MD - 08/05/2022 5:38 AM EST ACUTE CARE SURGERY INPATIENT CONSULT NOTE Patient ID: Patient Name: Katheryn Carranza : 1960 Admit Date: 08/01/2022 9:16 PM Hospital Day: 3 History of Present Illness: Katheryn Carranza is a 61 y.o. female currently admitted to the Infrastructure Manager Onc service s/p diagnostic lap converted to [...] MAMMOPLASTY, EVA performed by DEMETRA SOMMERS at [facility] MAIN OR ??? PRO LAP, DIAGNOSTIC ABDOMEN Left 08/02/2022 LAPAROSCOPY, DIAGNOSTIC, ABDOMEN (WRVU 5.14) performed by Antonio Rojas MD at [facility] MAIN OR ??? PRO REMOVAL OF OVARY/TUBE(S) Left 08/02/2022 @SALPINGO-OOPHORECTOMY, UNILATERAL OR EVA (WRVU 12.16) performed by Antonio Rojas MD at [facility] MAIN OR Medications: ??? acetaminophen 1,000 mg [...] (MIGRANAL) 0.5 mg/pump act. (4 mg/mL) [place], Non-Aerosol One spray per nostril, while holding [...] who have questions please contact the health manager career that requested your imaging first. Request For [...] who have questions please contact the health manager career that requested your imaging first. Request for [...] who have questions please contact the health manager career that requested your imaging first. Lumbar Spine [...] who have questions please contact the health manager career that requested your imaging first. Thoracic Spine [...] who have questions please contact the health manager career that requested your imaging first. Abdomen & [...] who have questions please contact the health manager career that requested your imaging first. Abdomen 1 [...] who have questions please contact the health manager career that requested your imaging first. Assessment: Katheryn [...] with attending surgeon Dr. Hawk. Please page [phone] with questions. Arnav Singh Jr, MD General [...] MD * Consult Note - Tosin Bland, [facility] - 08/03/2022 2:45 PM EST BIT [...] 15 minutes Tosin Bland MA, [facility] (Behavioral Intervention Team) Dept. of Psychiatry - Inpatient Psych. Services Pager: [phone] * Initial Assessments - Ava Rogers RN [...] Environment: Others in the home: spouse (4 Mexican shepards). Current Living Arrangements: home/apartment/condo. Accessibility Concerns:2 level log home (4 REGINO without rails) or 6 REGINO with rails); bedroom on 2nd level [address] Resource / Environmental Concerns: Resource/Environmental Concerns: none Current DME: none (Friend has given her a FWW to use if needed) Home Address confirmed as: [address] [place] [phone] Social & Family Supports: All names listed below confirmed with patient as current and correct Extended Emergency Contact Information Primary Emergency Contact: Prieto Carranza Josue Address: [address] [place] [phone] [facility] Mobile Relation: Spouse Secondary Emergency Contact: [place] [address] [facility] Mobile Relation: Child Current Care Provided by: [...] N/A ; Prescription Coverage: No ([facility] and [facility]) Preferred Pharmacy: [id number] - [address] [address] [place] Status: Patient is a : No Primary Care Provider confirmed: Lena Womack, DRIVER LICENSE AGENT [phone] Patient/Caregiver Goals of Treatment: Pain control Potential Needs for Transition of Care: none Agency Referrals: n/a Transportation: no concerns Transportation Anticipated: family or friend will provide Concerns to be Addressed: no discharge needs identified Assessment: Patient is admitted to TEMPERER service for POD#1 s/p diagnostic laparoscopy, converted [...] mg/mL) in sodium chloride 0.9% 50 mL SENIOR CLINICAL STUDY MANAGER infusion syringe Intravenous SENIOR CLINICAL STUDY MANAGER Only Bubba Schroeder MD 50 mg at 08/02/222124 ??? diphenhydrAMINE (Benadryl) (50 mg/mL) injection 25 mg 25 mg Intravenous Q30 Min PRN Bubba Schroeder MD ??? SENIOR CLINICAL STUDY MANAGER wood Intravenous Continuous PRN Bubba Schroeder MD ??? HYDROmorphone (mg) SENIOR CLINICAL STUDY MANAGER shift total and Settings verification Intravenous 2 Times Daily- SENIOR CLINICAL STUDY MANAGER Shift Total Bubba Schroeder MD ??? enoxaparin (Lovenox) (40 mg/0.4 mL) subcutaneous injection 40 mg 40 mg Subcutaneous Nightly Bubba Schroeder MD Home Medications: No current facility-administered medications on file prior to encounter. Current Outpatient Medications on File Prior to Encounter Medication Sig Dispense Refill ??? dihydroergotamine (MIGRANAL) 0.5 mg/pump act. (4 mg/mL) [place], Non-Aerosol One spray per nostril, while holding [...] MAMMOPLASTY, EVA performed by DEMETRA SOMMERS at [facility] MAIN OR Allergies: Allergies Allergen Reactions ??? [...] Flexor digitorum profundus Digit II-V flexion / larriman 5 5 L2-3 Iliopsoas Hip flexion 5 [...] who have questions please contact the health manager career that requested your imaging first. Request For [...] who have questions please contact the health manager career that requested your imaging first. Request for [...] who have questions please contact the health manager career that requested your imaging first. Lumbar Spine [...] who have questions please contact the health manager career that requested your imaging first. Thoracic Spine [...] who have questions please contact the health manager career that requested your imaging first. Assessment: Katheryn [...] Rojas MD - 08/02/2022 6:34 PM EST [facility] Operative Note Patient Name: Katheryn Carranza : [id number] MR#: [id number] Case Date: 08/02/2022 Surgeon: Surgeon(s) and Role: [...] pelvis, with the findings noted above. A [facility] re tractor was assembled and used to [...] Booker MD - 08/02/2022 12:42 PM EST [facility] Neurosurgery Consultation Note Date & Time of Consult: 08/02/2022 1207 Referring Service: Infrastructure Manager Onc Referring Attending: Antonio Rojas MD Neurosurgery Attending: Dr. Duenas Place of Consult: ED22/MRI [place] ID: Name: Katheryn Carranza, 61 y.o. female Admission Date: 08/01/2022 Reason for consult/CC: Left paracentral L5/S1 disc herniation HPI: This is a 61 y.o. RIGHT-handed female with a PMH of tobacco abuse, HTN, chronic neck pain who presented to [facility] with c/o progressive back pain x3 weeks [...] of days without benefit. She presented to [facility] ED on 07/29/2022 due to progression of this pain wrapping around to her abdomen mony CT of her abdomen and pelvis as well as a CT of her spine was obtained. As the pain continued to progress she presented to [facility] ED yesterday 08/01 and second reads of [...] MAMMOPLASTY, EVA performed by DEMETRA SOMMERS at [facility] MAIN OR Medications: No current facility-administered medications on file prior to encounter. Current Outpatient Medications on File Prior to Encounter Medication Sig Dispense Refill ??? dihydroergotamine (MIGRANAL) 0.5 mg/pump act. (4 mg/mL) [place], Non-Aerosol One spray per nostril, while holding [...] by mouth nightly. ??? Miscellaneous Medical Supply [facility] Bilateral wrist splints for CTS 2 each [...] ??? lidocaine 1 patch Transdermal Daily ??? SENIOR CLINICAL STUDY MANAGER shift total and Settings verification Intravenous 2 Times Daily- SENIOR CLINICAL STUDY MANAGER Shift Total ??? amitriptyline 100 mg Oral [...] who have questions please contact the health manager career that requested your imaging first. Request For [...] who have questions please contact the health manager career that requested your imaging first. Request for [...] who have questions please contact the health manager career that requested your imaging first. Assessment: This is a 61 y.o. RIGHT-handed female not on antiplatelet/anticoagulants with a PMH of tobacco abuse, HTN, chronic neck pain who presented to [facility] with c/o progressive back pain x3 weeks [...] 08/01/2022 Attending: Antonio Rojas MD ID: Katheryn Juwan Dillon is a 61 y.o. female with PMHx [...] (MIGRANAL) 0.5 mg/pump act. (4 mg/mL) [place], Non-Aerosol One spray per nostril, while holding [...] by mouth nightly. ??? Miscellaneous Medical Supply [facility] Bilateral wrist splints for CTS 2 each [...] (MIGRANAL) 0.5 mg/pump act. (4 mg/mL) [place], Non-Aerosol One spray per nostril, while holding [...] by mouth nightly. ??? Miscellaneous Medical Supply [facility] Bilateral wrist splints for CTS 2 each [...] MAMMOPLASTY, EVA performed by DEMETRA SOMMERS at [facility] MAIN OR Allergies: Allergies Allergen Reactions ??? [...] Flexor digitorum profundus Digit II-V flexion / larriman 5 5 L2-3 Iliopsoas Hip flexion 5 [...] who have questions please contact the health manager career that requested your imaging first. Assessment: Katheryn [...] Therapy, Volume 87, Issue 6, 2006, Pages 035-811, [email or web address] Patient seen with Dr. Pinky Castellano MD Neurology, PGY-3 Consult Neurology Service #[id number] 08/02/2022 Associated attestation - Bhargavi Vance MD [...] pt fell yesterday. [facility] for [facility] care. Pt has left ovarian mass found on u/s. Pt states her legs are numb and tingly for last 2 days. Pt restless in wc, appears in discomfort. HPI (Adult) Stated Reason for Visit: I have sciatica and back pain, so I went to [facility] tuesday and they said I have [...] 5:18 AM EST Upper GI Endoscopy, Diagnostic (05107) 08/05/2022 2:19 PM EST GOO UPPER GI [...] TO PATHOLOGY Routine 08/02/2022 7:39 PM EST NON-TEMPERER FINAL REPORT Routine 08/02/2022 7:07 PM EST CYTOPATHOLOGY NON-GYNECOLOGICAL Routine 08/02/2022 7:07 PM EST Removal Of Ovary/Tube(S) (25210) 08/02/2022 5:52 PM EST left adnexal mass Lap, Diagnostic Abdomen (34801) 08/02/2022 5:52 PM EST left adnexal mass [...] 08/01/2022 10:15 PM EST TYPE AND SCREEN (MC/CGP/COMPA) STAT 08/01/2022 10:15 PM EST CANCER ANTIGEN [...] EST) Magnesium 0.89 0.69 - 1.07 mmol/L [facility] Blood 08/07/2022 5:16 AM EST 08/07/2022 5:27 AM EST Narrative Resulting Agency Comment Spec In Lab Antonio Rojas MD CHEMISTRY ORDERABLES Performing Organization Address [facility] Co de Phone Number [facility] [place] [address] * (ABNORMAL) Basic Metabolic Panel (non-fasting) (08/07/2022 5:16 AM EST) Glucose 122 65 - 199 mg/dL [facility] Comment:Diabetes: >=200 mg/d L plus symptoms Blood Urea Nitrogen 9 8 - 18 mg/dL [facility] Creatinine 0.68(L) 0.70 - 1.20 mg/dL [facility] Sodium 137 135 - 145 mmol/L [facility] Potassium 3.8 3.5 - 5.0 mmol/L [facility] Comment: Please note: ??Patients with WBC >100,000 may have falsely elevated Potassium levels. ??For accurate Potassium quantification in these patients send serum separator tube (gold top) for subsequent determinations. ??Contact the Clinical Chemistry Laboratory if there are any questions. Chloride 101 98 - 107 mmol/L [facility] Carbon Dioxide 24 22 - 31 mmol/L [facility] Anion Gap 12 5 - 15 mmol/L [facility] Calcium 8.6 8.5 - 10.5 mg/dL [facility] Est Glomerular Filtration Rate 99 >=60 mL/min/1. 73 m?? [facility] Comment: This patient's estimated GFR [...] Rojas MD CHEMISTRY ORDERABLES Performing Organization Address [facility] Co de Phone Number [facility] [place] [address] * Lavender Tube HOLD (08/06/2022 5:18 AM EST) Lavender Hold Sample in lab. [facility] Blood Venous Draw / Unknown 08/06/2022 5:18 AM EST 08/06/2022 5:33 AM EST Oma MARSHALL HEMATOLOGY ORDERABLE S Performing Organization Address [facility] de Phone Number [facility] [place] [address] * Magnesium (08/06/2022 5:18 AM EST) Magnesium 0.69 0.69 - 1.07 mmol/L [facility] Blood 08/06/2022 5:18 AM EST 08/06/2022 5:33 AM EST Narrative Resulting Agency Comment Spec In Lab Antonio Rojas MD CHEMISTRY ORDERABLES Performing Organization Address [facility] de Phone Number [facility] [place] [address] * (ABNORMAL) Basic Metabolic Panel (non-fasting) (08/06/2022 5:18 AM EST) Pathologist [facility] Glucose 106 65 - 199 mg/dL [facility] Comment:Diabetes: >=200 mg/d L plus symptoms Blood Urea Nitrogen 10 8 - 18 mg/dL [facility] Creatinine 0.65(L) 0.70 - 1.20 mg/dL [facility] Sodium 139 135 - 145 mmol/L [facility] Potassium 3.3(L) 3.5 - 5.0 mmol/L [facility] Comment: Please note: ??Patients with WBC >100,000 may have falsely elevated Potassium levels. ??For accurate Potassium quantification in these patients send serum separator tube (gold top) for subsequent determinations. ??Contact the Clinical Chemistry Laboratory if there are any questions. Chloride 99 98 - 107 mmol/L [facility] Carbon Dioxide 26 22 - 31 mmol/L [facility] Anion Gap 14 5 - 15 mmol/L [facility] Calcium 8.9 8.5 - 10.5 mg/dL [facility] Est Glomerular Filtration Rate 100 >=60 mL/min/1. 73 m?? [facility] Comment: This patient's estimated GFR [...] MD CHEMISTRY ORDERABLES Performing Organization Address City/State/[facility] Co de Phone Number [facility] [place] [address] * UPPER GI ENDOSCOPY (08/05/2022 2:01 PM EST) UPPER GI ENDOSCOPY [facility] Endoscopy Procedure Date: 08/05/2022 2:01 PM ? Patient Name: Katheryn Carranza ? Date of : 1960 ? Age: 61 ? Order #: [id number] ? Instrument Name: [id number] ? Procedure: ? Upper GI endoscopy Indications: ? Vomiting Providers: ? Donnie Obrien, [employer] ? OLIVIA Caldwell, Louie [...] ? procedure, including non-wood portions. ? Donnie Obrine, 08/05/2022 3:18:18 PM Number of Addenda: 0 Note Initiated On: 08/05/2022 2:01 PM [employer]ATION 08/05/2022 2:01 PM EST Unknown GENERAL SURGICAL ORD ERABLES Performing Organization Address City/[facility] Co de Phone Number [employer] * Urine Hold (08/05/2022 10:47 AM EST) Hold, Urine Sample in lab. [facility] Urine Urine / Unknown 08/05/2022 1 0:47 AM EST 08/05/2022 10:58 AM EST Angely Scruggs MD URINE ORDERABLES [facility] [place] [address] * Urinalysis with reflex Culture (08/05/2022 10:47 AM EST) Glucose, Urine Dipstick Negative Negative mg/dL [facility] Protein, Urine Dipstick Negative Negative mg/dL [facility] Bilirubin, Urine Dipstick Negative Negative mg/dL [facility] Comment: Clinical correlation required for positive Urine Bilirubin results as false positive may occur with some drugs and drug related products. If a false positive is suspected a serum total bilirubin should be considered if clinically indicated. Urobilinogen, Urine Dipstick Normal Normal mg/dL [facility] pH, Urn (dipstick) 7.5 5.0 - 8.0 [facility] Blood, Urine Dipstick Negative Negative mg/dL [facility] Ketone, Urine Dipstick Negative Negative mg/dL [facility] Nitrite, Urine Dipstick Negative Negative [facility] Leukocytes, Urine Dipstick Negative Negative mcL [facility] Appearance, Urine Dipstick Clear Clear [facility] Specific [place] Urine Automated 1.011 1.005 - 1.030 [facility] Color, Urine Dipstick Yellow Yellow [facility] Reflex to Culture No [facility] Clean Catch Urine 08/05/2022 10:47 AM EST 08/05/2022 10:58 AM EST Narrative Resulting Agency Comment Spec In Lab Antonio Rojas MD URINE ORDERABLES Performing Organization Address City/State/[facility] Co de Phone Number [facility] [place] [address] * XR Abdomen 1 view (Generic) (08/05/2022 [...] who have questions please contact the health manager career that requested your imaging first. ? Narrative [...] patients who have questions please contactthe health manager career that requested your imaging first. Antonio Rojas [...] who have questions please contact the health manager career that requested your imaging first. ? Narrative [...] Osseous Structures: Redemonstrated mild compression deformity of [id number] endplate. IMPRESSION Findings suggesting pyelonephritis of the lone RIGHT kidney. Moderate to severe gastric distention. Mild atelectasis at the included lung bases. Moderate pancolonic stool burden Thank you for letting us participate in the care of this patient. If youare a health care provider and have any questions regarding this report,please contact the number below. For patients who have questions please contactthe health manager career that requested your imaging first. Antonio Rojas MD IM CT ORDERABLES * (ABNORMAL) Hemoglobin A1c (08/04/2022 11:24 PM EST) Hemoglobin A1c 6.2(H) 4.3 - 5.6 % [facility] Comment: Reference Range: 4.3 - [...] Mellitus, Diabetes Care 2013; 36: Suppl. 1, S67-98 Estimated Average Glucose 130 mg/dL [facility] Comment: eAG equivalents for HbA1c [...] into estimated average glucose values. ??Diabetes Care 2008:31(8):5908-0872. Blood Venous Draw / Unknown 08/04/2022 11:24 PM EST 08/05/2022 9:39 AM EST Narrative Resulting Agency Comment Spec In Lab Oma MARSHALL CHEMISTRY ORDERABLES Performing Organization Address City/[facility]/ZIP Co de Phone Number [facility] [place] [address] * (ABNORMAL) Amylase (08/04/2022 11:24 PM EST) Pathologist [facility] Amylase 27(L) 28 - 100 unit/L [facility] Blood Venous Draw / Unknown 08/04/2022 11:24 PM EST 08/04/2022 11:30 PM EST Narrative Resulting Agency Comment Spec In Lab Angely Scruggs MD CHEMISTRY ORDERABLES Performing Organization Address City/[facility] Co de Phone Number [facility] [place] [address] * Lipase (08/04/2022 11:24 PM EST) Pathologist [facility] Lipase 12 0 - 60 unit/L [facility] Blood Venous Draw / Unknown 08/04/2022 11:24 PM EST 08/04/2022 11:30 PM EST Narrative Resulting Agency Comment Spec In Lab Angely Scruggs MD CHEMISTRY ORDERABLES Performing Organization Address [facility] Co de Phone Number [facility] [place] [address] * (ABNORMAL) Differential, Automated (08/04/2022 11:24 PM EST) Pathologist [facility] Neutrophil % 68.0 % [facility] Neutrophil Absolute 6.86(H) 1.70 - 6.10 x10(3)/mc L [facility] Lymph % 24.6 % [facility] [place] [facility] Lymphocytes Abs 2.5 0.9 - 3.2 x10(3)/mc L [facility] Monocyte % 6.1 % [facility] Monocyte Abs 0.6 0.3 - 0.9 x10(3)/mc L [facility] Eos % 0.3 % [facility] [place] [facility] Eosinophils Abs 0.0 0.0 - 0.4 x10(3)/mc L [facility] Basophil % 0.1 % [facility] Baso Absolute 0.0 0.0 - 0.1 x10(3)/mc L [facility] Immature Gran % 0.90 % [facility] Comment: Immature granulocytes(IG's)percentage and absolute count will include metamyelocytes, myelocytes, and promyelocytes. Blood smears from CBCs yielding IG's will be scanned manually for concordance. If this scan disagrees with the automated IG or if promyelocytes are noted, a manual differential will be performed. Immature Gran Absolute 0.09(H) 0.00 - 0.04 x10(3)/mc L [facility] [facility] Blood 08/04/2022 11:2 4 PM EST 08/04/2022 11:29 PM EST Narrative Resulting Agency Comment Spec In Lab Bubba Schroeder MD HEMATOLOGY ORDERABLE S Performing Organization Address City/State/[facility] Co de Phone Number [facility] [place] [address] * (ABNORMAL) Hemogram (08/04/2022 11:24 PM EST) White Blood Cell 10.1(H) 4.0 - 9.5 x10(3)/mc L [facility] Red Blood Cell 4.22 4.00 - 5.21 x10(6)/mc L [facility] Hemoglobin 13.6 11.7 - 15.5 g/dL [facility] Hematocrit 39.1 35.7 - 45.8 % [facility] Mean Cell Volume 92.7 82.6 - 94.4 fL [facility] Mean Cell Hemoglobin 32.2(H) 27.1 - 32.0 pg [facility] Mean Cell Hemoglobin Concentration 34.8 31.7 - 35.0 g/dL [facility] Platelet 285 145 - 357 x10(3)/mc L [facility] RDW Standard Deviation 41.6 37.0 - 46.0 fL [facility] RDW coefficient of variation 12.3 11.5 - 14.1 % [facility] Mean Platelet Volume 8.7 7.6 - 12.9 fL [facility] NRBC% auto 0.0 % [facility] NRBC Absolute 0.000 0.000 - 0.000 x10(3)/mc L [facility] Blood 08/04/2022 11:2 4 PM EST 08/04/2022 11:29 PM EST Narrative Resulting Agency Comment Spec In Lab Bubba Schroeder MD HEMATOLOGY ORDERABLE S [facility] [place] [address] * CMP w/fasting Glucose (08/04/2022 11:24 PM EST) Glucose Fasting 97 65 - 99 mg/dL [facility] Comment: ?Fasting* Glucose Interpretive Criteria [...] of Diabetes Mellitus, Position Statement from the [place] [employer]. ??Diabetes Care, Volume 33, Supplement 1, Jun 2009 Blood Urea Nitrogen 10 8 - 18 mg/dL [facility] Creatinine 0.70 0.70 - 1.20 mg/dL [facility] Sodium 137 135 - 145 mmol/L [facility] Potassium 3.6 3.5 - 5.0 mmol/L [facility] Comment: Please note: ??Patients with WBC >100,000 may have falsely elevated Potassium levels. ??For accurate Potassium quantification in these patients send serum separator tube (gold top) for subsequent determinations. ??Contact the Clinical Chemistry Laboratory if there are any questions. Chloride 101 98 - 107 mmol/L [facility] Carbon Dioxide 24 22 - 31 mmol/L [facility] Anion Gap 12 5 - 15 mmol/L [facility] Calcium 9.2 8.5 - 10.5 mg/dL [facility] Protein, Total 6.4 6.1 - 8.0 g/dL [facility] Albumin 3.7 3.2 - 5.2 g/dL [facility] Aspartate Aminotransferase 13 0 - 30 unit/L [facility] Alanine Aminotransferase 22 0 - 30 unit/L [facility] Alkaline Phosphatase 73 35 - 105 unit/L [facility] Bilirubin, Total 0.3 0.2 - 1.3 mg/dL [facility] Est Glomerular Filtration Rate 98 >=60 mL/min/1. 73 m?? [facility] Comment: This patient's estimated GFR [...] In Lab Antonio Rojas MD CHEMISTRY ORDERABLES [facility] [place] [address] * Surgical Pathology Report (08/02/2022 7:39 PM EST) Final Diagnosis [id number] ? Location: L1WD; H119; A The signing pathologist has (i) examined the relevant preparation(s) for the specimen(s) and (ii) rendered or confirmed the diagnosis(es). . 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 Electronically signed by: ?David AKBAR, Rosaura Echeverria Verified: ??08/11/2022 9:33 ?? Pathologist Performed at: ??-[facility] Dept. of [place]ology, [place] [address] Mail Processing Clerk: Ernestina Valenzuela MD, FCAP, ??CLIA Certificate: [id number] DISCUSSION Definitive fallopian tube tissue was not [...] Fallopian Tube: Not grossly identified. Sections/Processi ng: Flat Knitter sections in 22 cassettes as follows: ?A1-A2: Cyst wall with excrescences ?A3-A4: Flat Knitter sections of fine papillary excrescences ?A5-A6: Flat Knitter yellow, flat excrescences ?A7-A10: Flat Knitter sections of the solid and cystic nodule, ?A11-A15: Flat Knitter sections of the whorled surface nodule and ? adjacent cyst ?A16-A19: Additional cyst wall sections ?A20: Candidate left fallopian tube adhesed to nodule ?A21-A22: Flat Knitter soft tissue adhesed to nodule ??vmj 08/11/2022 9:[address] [facility] OVARIAN PART / Unknown 08/02/2022 7:39 PM EST 08/02/2022 7:39 PM EST Antonio Rojas MD PATHOLOGY/CYTOLOGY O LISA Performing Organization Address [facility] Co de Phone Number [facility] [place], [place] [id number] [place] [address] [place] [address] * Specimen to Pathology (08/02/2022 7:39 PM EST) AP Specimen 08/02/2022 7:39 PM EST 08/02/2022 7:39 PM EST Narrative [facility] - 08/02/2022 7:39 PM EST Specimen requisition ordered. ??Separate Pathology report to follow Antonio Rojas MD PATHOLOGY/CYTOLOGY O LISA Performing Organization Address [facility] Co de Phone Number [facility] [place] [address] * Non-Infrastructure Manager Final Report (08/02/2022 7:07 PM EST) Diagnosis Discussion [id number] ? Location: L1WD; H119; A The signing pathologist has (i) examined the relevant preparation(s) for the specimen(s) and (ii) rendered or confirmed the diagnosis(es). . ? Non-Infrastructure Manager Final DIAGNOSIS Negative for Malignancy Electronically signed by: ?Miladys AKBAR, Mark Bailey Verified: ??08/11/2022 15:41 ??Pathologist Performed at: ??-[facility] Dept. of Pathology, [place] [address] Mail Processing Clerk: Ernestina Valenzuela MD, AP, ??CLIA Certificate: [id number] DISCUSSION Pelvic wash: Mesothelial cells are present. [...] Cell Block 1. 08/11/2022 3:[address] [facility] Pelvic Washing 08/02/2022 7: 07 PM EST 08/02/2022 7:07 PM EST Antonio Rojas MD PATHOLOGY/CYTOLOGY O LISA [facility] [address] [place] [address] * Cytopathology Non-Gynecological (08/02/2022 7:07 PM EST) AP Specimen 08/02/2022 7:07 PM EST 08/02/2022 7:07 PM EST Narrative [facility] - 08/02/2022 7:07 PM EST Specimen requisition ordered. ??Separate Pathology report to follow Antonio Rojas MD PATHOLOGY/CYTOLOGY O LISA [facility] [place] [address] * MRI Thoracic Spine wwo Contrast (08/02/2022 [...] who have questions please contact the health manager career that requested your imaging first. ? Narrative [...] the clinical situation (Reference- Jaylinvik Et Al, [id number]). Findings: (Prevalence in patients without low back [...] patients who have questions please contactthe health manager career that requested your imaging first. Antonio Rojas [...] who have questions please contact the health manager career that requested your imaging first. ? Narrative [...] the clinical situation (Reference- Devyn Et Al, [id number]). Findings: (Prevalence in patients without low back [...] patients who have questions please contactthe health manager career that requested your imaging first. Oumou Villar [...] who have questions please contact the health manager career that requested your imaging first. ? Narrative [...] outside imaging study. ?? * ??Sending Institution [facility] * ??Date of exam 20220729 * ??I believe a reinterpretation of this exam may alter care of Patient. Yes TECHNIQUE: CT of the chest, abdomen, and pelvis was performed with intravenous contrast at [facility] on July 29, 2022. Helical CT [...] similar prior examination provided for comparison. FINDINGS: End Trimmer Images: Noncontributory. CT OF THE CHEST: Lungs [...] of outside imaging study. * Sending Institution [facility] * Date of exam 20220729 * I believe a reinterpretation of this exam may alter care of Patient.Yes TECHNIQUE: CT of the chest, abdomen, and pelvis was performed withintravenous contrast at [facility] on July 29, 2022. Helical CT images of the chest, abdomen, and pelvis were obtainedfollowing administration of intravenous contrast. Per report, the patient [id number] mL Omnipaque 350 intravenous contrast. Oral contrast was not administered. Multiplanar reformats were performed in the sagittal and coronal planes. Maximum Intensity Projection (MIP) images were also reformatted. COMPARISON: There is no similar prior examination provided forcomparison. FINDINGS: End Trimmer Images: Noncontributory. CT OF THE CHEST: Lungs [...] patients who have questions please contactthe health manager career that requested your imaging first. Oumou Villar [...] who have questions please contact the health manager career that requested your imaging first. ? Narrative 08/02/2022 8:25 AM EST EXAMINATION: REQUEST FOR 2ND READ CT SPINE CLINICAL HISTORY: back/flank pain r/o spinal stenosis; Sending Institution [facility]; Date of exam 20220729; I believe [...] who have questions please contact the health manager career that requested your imaging first. ? --------ORIGINAL REPORT -------- EXAMINATION: REQUEST FOR 2ND READ ULTRASOUND STUDY CLINICAL HISTORY: L adnexal mass; Sending Institution [facility]; Date of exam 20220730; I believe [...] who have questions please contact the health manager career that requested your imaging first. ? Addendum by Sandra Henderson MD on 08/25/2022 12:39 PM EDT --------ADDENDUM #1-------- TECHNIQUE: US Pelvis, Images were obtained and VRE --------ORIGINAL REPORT -------- EXAMINATION: REQUEST FOR 2ND READ ULTRASOUND STUDY CLINICAL HISTORY: L adnexal mass; Sending Institution [facility]; Date of exam 20220730; I believe [...] who have questions please contact the health manager career that requested your imaging first. ? Impressions [...] who have questions please contact the health manager career that requested your imaging first. ? Narrative 08/02/2022 10:18 AM EST EXAMINATION: REQUEST FOR 2ND READ ULTRASOUND STUDY CLINICAL HISTORY: L adnexal mass; Sending Institution [facility]; Date of exam 20220730; I believe [...] CLINICAL HISTORY: L adnexal mass; Sending Institution [facility]; Dateof exam 20220730; I believe a reinterpretation of this exam may alter care ofPatient. Yes; ; L adnexal mass TECHNIQUE: Images were obtained and VRE COMPARISON: CT from 07/29/2022 FINDINGS: By history the patient is status post cystectomy and LEFT nephrectomy.The images presented show a large cystic lesion in the RIGHT adnexa withperipheral nodularity. The measurements obtained were 13.7 x 11.5 by [id number] cm. The images do not show definite [...] patients who have questions please contactthe health manager career that requested your imaging first. Oumou Villar MD IMG OUTSIDE INTERPRE TATION ORDERABLES * BLOOD GAS 2 VENOUS (08/01/2022 10:23 PM EST) pH, Venous 7.36 7.32 - 7.42 [facility] PCO2, Venous 47 41 - 51 mmHg [facility] PO2, Venous 31 25 - 40 mmHg [facility] Bicarbonate, Venous 25.9 mmol/L [facility] Base Excess, Venous 0.4 mmol/L [facility] Hgb Blood Gas 14.4 11.7 - 15.5 g/dL [facility] Oxyhemoglobin, Venous 58.3 % [facility] Carboxyhemoglob in, Venous 8.9 % [facility] Comment: Nonsmokers: 0.5-1.5% COHB Smokers: Variable, but usually less than 10% Toxic: 20-30% COHB Lethal: Greater than 60% COHB Methemoglobin, Venous 0.1 <=1.5 % [facility] Na Whole Blood 137 135 - 145 mmol/L [facility] K Whole Blood 4.0 3.5 - 5.0 mmol/L [facility] Comment: Please note: Patients with WBC >100,000 may have falsely elevated Potassium levels. Contact the Clinical Chemistry Laboratory if there are any questions. ICa Whole Blood 1.21 1.15 - 1.33 mmol/L [facility] Comment: Note: ??Total bilirubin higher than 20 mg/dL may lead to falsely low ionized calcium. CL Whole Blood 100 98 - 107 mmol/L [facility] Gluc Whole Bld 95 65 - 199 mg/dL [facility] Comment:Diabetes: >=200 mg/d L plus symptoms Lactate WB 1.6 0.5 - 2.2 mmol/L [facility] Blood Gas Source Venous [facility] Blood 08/01/2022 10:2 3 PM EST 08/01/2022 10:23 PM EST Oumou Villar MD POINT OF CARE TEST O RDERABLES Performing Organization Address City/[facility] Co de Phone Number [facility] [place] [address] * CEA (08/01/2022 10:15 PM EST) Carcinoembryonic Antigen 2.2 <=3.8 ng/mL [facility] Comment: Reference range: ??(20-69 years): [...] Villar MD CHEMISTRY ORDERABLES Performing Organization Address [facility] Co de Phone Number [facility] [place] [address] * Carbohydrate Antigen 19-9 (08/01/2022 10:15 PM EST) CA 19-9 7.1 <=35.0 u/ml [facility] Comment: This result was generated using a Greg Lynn immunoassay. ??Results obtained from other methods or manufacturers cannot be used interchangeably with this method. Blood Venous Draw / Unknown 08/01/2022 10:15 PM EST 08/01/2022 10:36 PM EST Narrative Resulting Agency Comment Spec In Lab Oumou Villar MD CHEMISTRY ORDERABLES Performing Organization Address [facility] Co de Phone Number [facility] [place] [address] * (ABNORMAL) Cancer Antigen 125 (08/01/2022 10:15 PM EST) CA 125 40.8(H) <=38.1 unit/mL [facility] Comment: CA 125 Reference Interval [...] In Lab Oumou Villar MD CHEMISTRY ORDERABLES [facility] [place] [address] * Type and Screen Validity (08/01/2022 10:15 PM EST) T&S only valid at [facility] Comment:This Type and Screen result is only valid at the [facility] Blood 08/01/2022 10:1 5 PM EST 08/01/2022 10:28 PM EST Narrative Resulting Agency Comment Spec In Lab Nai Wright MD BLOOD BANK LAB ORDER GILBERTO Performing Organization Address City/[facility]/ZIP Co de Phone Number [facility] [place] [address] * ABORH Recheck Status (08/01/2022 10:15 PM EST) ABORH Recheck Order Order Placed [facility] ABORH Type Recheck Not Performed [facility] Blood 08/01/2022 10:1 5 PM EST 08/01/2022 10:28 PM EST Narrative Resulting Agency Comment Spec In Lab Nai Wright MD BLOOD BANK LAB ORDER GILBERTO Performing Organization Address City/[facility] Co de Phone Number [facility] [place] [address] * Gold Tube HOLD (08/01/2022 10:15 PM EST) Gold Hold Sample in lab. [facility] Blood Venous Draw / Unknown 08/01/2022 10:15 PM EST 08/01/2022 10:29 PM EST Nai Wright MD [place] [address] * (ABNORMAL) Differential, Automated (08/01/2022 10:15 PM EST) Neutrophil % 65.2 % [facility] Neutrophil Absolute 8.26(H) 1.70 - 6.10 x10(3)/mc L [facility] Lymph % 26.2 % [facility] Lymphocytes Abs 3.3(H) 0.9 - 3.2 x10(3)/mc L [facility] Monocyte % 6.9 % [facility] Monocyte Abs 0.9 0.3 - 0.9 x10(3)/mc L [facility] Eos % 0.6 % [facility] Eosinophils Abs 0.1 0.0 - 0.4 x10(3)/mc L [facility] Basophil % 0.1 % [facility] Baso Absolute 0.0 0.0 - 0.1 x10(3)/mc L [facility] Immature Gran % 1.00 % [facility] Comment: Immature granulocytes(IG's)percentage and absolute count will include metamyelocytes, myelocytes, and promyelocytes. Blood smears from CBCs yielding IG's will be scanned manually for concordance. If this scan disagrees with the automated IG or if promyelocytes are noted, a manual differential will be performed. Immature Gran Absolute 0.13(H) 0.00 - 0.04 x10(3)/mc L [facility] Blood 08/01/2022 10:1 5 PM EST 08/01/2022 10:29 PM EST Narrative Resulting Agency Comment Spec In Lab Nai Wright MD HEMATOLOGY ORDERABLE S Performing Organization Address City/[facility]/ZIP [place] [address] * (ABNORMAL) Hemogram (08/01/2022 10:15 PM EST) White Blood Cell 12.6(H) 4.0 - 9.5 x10(3)/mc L [facility] Red Blood Cell 4.25 4.00 - 5.21 x10(6)/mc L [facility] Hemoglobin 13.7 11.7 - 15.5 g/dL [facility] Hematocrit 39.3 35.7 - 45.8 % [facility] Mean Cell Volume 92.5 82.6 - 94.4 fL [facility] Mean Cell Hemoglobin 32.2(H) 27.1 - 32.0 pg [facility] Mean Cell Hemoglobin Concentration 34.9 31.7 - 35.0 g/dL [facility] Platelet 286 145 - 357 x10(3)/mc L [facility] RDW Standard Deviation 43.4 37.0 - 46.0 fL [facility] RDW coefficient of variation 12.6 11.5 - 14.1 % [facility] Mean Platelet Volume 9.2 7.6 - 12.9 fL [facility] NRBC% auto 0.0 % [facility] NRBC Absolute 0.000 0.000 - 0.000 x10(3)/mc L [facility] Blood 08/01/2022 10:1 5 PM EST 08/01/2022 10:29 PM EST Narrative Resulting Agency Comment Spec In Lab Nai Wright MD HEMATOLOGY ORDERABLE S Performing Organization Address City/[facility]/ZIP Co de Phone Number [facility] [place] [address] * Antibody screen (08/01/2022 10:15 PM EST) Ab Screen Interp Negative [facility] Expires at [id number] on: 08/04/2022 [facility] Blood 08/01/2022 10:1 5 PM EST 08/01/2022 10:28 PM EST Narrative Resulting Agency Comment Spec In Lab Nai Wright MD BLOOD BANK LAB ORDER GILBERTO [facility] [place] [address] * ABO/Rh Typing (08/01/2022 10:15 PM EST) ABORH Type O Pos [facility] Blood 08/01/2022 10:1 5 PM EST 08/01/2022 10:28 PM EST Narrative Resulting Agency Comment Spec In Lab Nai Wright MD BLOOD BANK LAB ORDER GILBERTO Performing Organization Address City/[facility] Co de Phone Number [facility] [place] [address] * Lipase (08/01/2022 10:15 PM EST) Pathologist [facility] Lipase 11 0 - 60 unit/L [facility] Blood 08/01/2022 10:1 5 PM EST 08/01/2022 10:29 PM EST Narrative Resulting Agency Comment Spec In Lab Oumou Villar MD CHEMISTRY ORDERABLES Performing Organization Address [facility] Co de Phone Number [facility] [place] [address] * Hepatic Function Panel (08/01/2022 10:15 PM EST) Pathologist [facility] Protein, Total 7.2 6.1 - 8.0 g/dL [facility] Albumin 4.4 3.2 - 5.2 g/dL [facility] Aspartate Aminotransferase 13 0 - 30 unit/L [facility] Alanine Aminotransferase 23 0 - 30 unit/L [facility] Alkaline Phosphatase 84 35 - 105 unit/L [facility] Bilirubin, Total 0.2 0.2 - 1.3 mg/dL [facility] Bilirubin, Direct 0.1 0.0 - 0.3 mg/dL [facility] Blood 08/01/2022 10:1 5 PM EST 08/01/2022 10:29 PM EST Narrative Resulting Agency Comment Spec In Lab Oumou Villar MD CHEMISTRY ORDERABLES Performing Organization Address City/[facility]/ZIP Co de Phone Number [facility] [place] [address] * Basic Metabolic Panel (non-fasting) (08/01/2022 10:15 PM EST) Glucose 93 65 - 199 mg/dL [facility] Comment:Diabetes: >=200 mg/d L plus symptoms Blood Urea Nitrogen 13 8 - 18 mg/dL [facility] Creatinine 0.78 0.70 - 1.20 mg/dL [facility] Sodium 136 135 - 145 mmol/L [facility] Potassium 4.1 3.5 - 5.0 mmol/L [facility] Comment: Please note: ??Patients with WBC >100,000 may have falsely elevated Potassium levels. ??For accurate Potassium quantification in these patients send serum separator tube (gold top) for subsequent determinations. ??Contact the Clinical Chemistry Laboratory if there are any questions. Chloride 101 98 - 107 mmol/L [facility] Carbon Dioxide 23 22 - 31 mmol/L [facility] Anion Gap 12 5 - 15 mmol/L [facility] Calcium 9.2 8.5 - 10.5 mg/dL [facility] Est Glomerular Filtration Rate 86 >=60 mL/min/1. 73 m?? [facility] Comment: This patient's estimated GFR [...] In Lab Oumou Villar MD CHEMISTRY ORDERABLES [facility] [place] [address] * (ABNORMAL) Urinalysis with reflex Culture (08/01/2022 10:10 PM EST) Glucose, Urine Dipstick Negative Negative mg/dL [facility] Protein, Urine Dipstick Negative Negative mg/dL [facility] Bilirubin, Urine Dipstick Negative Negative mg/dL [facility] Comment: Clinical correlation required for positive Urine Bilirubin results as false positive may occur with some drugs and drug related products. If a false positive is suspected a serum total bilirubin should be considered if clinically indicated. Urobilinogen, Urine Dipstick Normal Normal mg/dL [facility] pH, Urn (dipstick) 6.5 5.0 - 8.0 [facility] Blood, Urine Dipstick Negative Negative mg/dL [facility] Ketone, Urine Dipstick Negative Negative mg/dL [facility] Nitrite, Urine Dipstick Negative Negative [facility] Leukocytes, Urine Dipstick Negative Negative mcL [facility] Appearance, Urine Dipstick Clear Clear [facility] Specific Lorane Urine Automated 1.004(L) 1.005 - 1.030 [facility] Color, Urine Dipstick Yellow Yellow [facility] Reflex to Culture No [facility] Urine 08/01/2022 10:1 0 PM EST 08/01/2022 10:29 PM EST Narrative Resulting Agency Comment Spec In Lab Oumou Villar MD URINE ORDERABLES [facility] [place] [id number] * Film Library- Storage Only Ultrasound Study (07/30/2022 12:00 AM EST) Narrative Dicom, Auditing User - 08/01/2022 9:52 PM EST This exam is auto-finalizing. It's purpose is for storage only. Kayleigh Goldsmith G FILM LIBRARY ORD ERABLES * Film Library- Storage Only CT Spine (07/29/2022 12:05 AM EST) Narrative Dicom, Auditing User - 08/01/2022 9:53 PM EST This exam is auto-finalizing. It's purpose is for storage only. Kayleigh Goldsmith [facility] FILM LIBRARY ORD ERABLES * Film Library- Storage Only CT Chest Abdomen Pelvis (07/29/2022 12:00 AM EST) Narrative Dicom, Auditing User - 08/01/2022 9:51 PM EST This exam is auto-finalizing. It's purpose is for storage only. Kayleigh Goldsmith [facility] FILM LIBRARY ORD ERABLES documented in this [...] Oral, 3 TIMES DAILY PRN, Starting on 08/02/22 at 1728, Until Teresa 08/05/22 at 0212, Muscle spasms, Routine Given 08/03/2022 8:08 PM EST 10 mg Given 08/02/2022 10:23 PM EST 10 mg cyclobenzaprine (Flexeril) tablet 5 mg 5 mg, Oral, 3 TIMES DAILY PRN, Starting on Tue08/07/22 at 0830, Until 08/08/22 at 1739, Muscle spasms, Routine dextrose 5% and sodium chloride 0.9% with potassium chloride 20 mEq infusion 100 mL/hr, Intravenous, CONTINUOUS, Starting on Tue08/06/22 at 0815, Until Tue08/07/22 at 0828 [facility] 08/07/2022 4:51 AM EST 100 mL/hr 100 [...] 1 suppository, Rectal, ONCE, 1 dose, On Teresa 08/05/22 at 1615, Routine Given 08/05/2022 5:57 PM [...] mg/mL) in sodium chloride 0.9% 50 mL SENIOR CLINICAL STUDY MANAGER infusion syringe Intravenous, SENIOR CLINICAL STUDY MANAGER ONLY, Starting on Tue08/02/22 at 1156, Until Tue08/02/22 at 2116, Recovery (Recovery-Hospital Unit) New Syringe/Cartridge 08/02/2022 9:06 PM EST 50 mg HYDROmorphone (Dilaudid) (1 mg/mL) in sodium chloride 0.9% 50 mL SENIOR CLINICAL STUDY MANAGER infusion syringe Intravenous, SENIOR CLINICAL STUDY MANAGER ONLY, Starting on Tue08/02/22 at 2145, Until 08/04/22 at 0734 New Syringe/Cartridge 08/02/2022 9:25 PM EST 50 mg HYDROmorphone (Dilaudid) (1 mg/mL) in sodium chloride 0.9% 50 mL SENIOR CLINICAL STUDY MANAGER infusion syringe Intravenous, SENIOR CLINICAL STUDY MANAGER ONLY, Starting on Teresa 08/05/22 at 1200, Until 08/08/22 at 0739 New Syringe/Cartridge 08/07/2022 6:50 PM [...] doses, Starting on Tue08/02/22 at 1455, Until Tu08/03/22 at 0816, Pain, STAT Given 08/02/2022 5:41 PM EST 0.6 mg HYDROmorphone (Dilaudid) (1 mg/mL) injection syringe 0.6 mg 0.6 mg, Intravenous, ONCE, 1 dose, On Teresa 08/05/22 at 1145, Routine Given 08/05/2022 11:37 AM EST 0.6 mg HYDROmorphone (Dilaudid) 50 mg/50 mL SENIOR CLINICAL STUDY MANAGER infusion SPCA 1 dose, Starting on Tue08/02/22 at 2002, Until Tue08/02/22 at 2106, Gloria Tay: cabinet override ibuprofen (Advil) tablet 600 mg [...] 15 mg, Intravenous, ONCE, 1 dose, On Teresa 08/05/22 at 1145, Routine Given 08/05/2022 11:37 AM [...] Intravenous, EVERY 8 HOURS PRN, Starting on Tue08/05/22 at 0700, Until Tue08/08/22 at 1739, Nausea oxyCODONE (Roxicodone) tablet 10 [...] Oral, EVERY 4 HOURS PRN, Starting on Tue08/08/22 at 0738, Until Tue08/08/22 at 1739, Pain, moderate pain (4-6), Initial [...] ordered, use ondansetron first, prochlorperazine second. Per SENIOR CLINICAL STUDY MANAGER order., Routine Given 08/02/2022 9:55 PM EST 5 mg Given 08/02/2022 9:21 PM EST 5 mg prochlorperazine (Compazine) 10 mg/2 mL (5 mg/mL) injection 1 dose, Starting on Tue08/02/22 at 2025, Until Tue08/02/22 at 212, Grace Manzanares: cabinet override QUEtiapine (SEROquel) tablet 100 mg 100 mg, [...] No 0530 (Given - Provider: Tosin Mcknight, OLIVIA) acetaminophen [...] Flores RN)2127 (Given - Provider: Tosin Mcknight, OLIVIA) 0505 [...] Surendra Cassidy RN)0918 (Given - Provider: Keyla Trejo RN)1353 (Given - Provider: Keyla Trejo, OLIVIA) amitriptyline (Elavil) tablet 100 mg 100 mg, Oral, NIGHTLY, First dose on Tue08/06/22 at 2100, Until Discontinued, Please clamp ngt for 60min when giving, Routine 2131 (Given - Provider: Tosin Mcknight, OLIVIA) 2040 (Given - Provider: Hazel Tadeo, RN) atenoloL (Tenormin) tablet 50 mg 50 mg, Oral, DAILY, First dose on Tue08/07/22 at 0900, Until Discontinued, Hold if sbp<100, hr<60 Please clamp ngt for 1hr when giving, Routine 911 (Given - Provider: Jazlyn Hahn RN) 918 (Given - Provider: Keyla Trejo RN) diphenhydrAMINE (Benadryl) (50 mg/mL) injection 25 mg [...] at 0115 0037 (Given - Provider: Priscilla Vallejo, OLIVIA) hydrALAZINE (Apresoline) (20 mg/mL) injection 5 [...] RN) 0448 (Given - Provider: Tosin Mcknight, RN) lidocaine (Lidoderm) 5% patch 3 patch 3 patch, Transdermal, Administer over 12 Hours, DAILY, First dose (after last modification) on Tue08/03/22 at 0900, Until Discontinued, Apply patch(es) for 12 hours, and then remove for 12 hours., Routine 0851 (Patch Applied - Provider: Herlinda Flores RN - Comment: l and r back)2130 (Patch Removed - Provider: Tosin Mcknight, RN) 0849 (Not Given - Provider: Jazlyn Hahn, OLIVIA - Reason: Patient/family refused) 0900 (Not Given [...] Flores RN)2135 (Given - Provider: Tosin Mcknight, RN) 0242 (Given - Provider: Tosin Mcknight, OLIVIA)0911 [...] Discontinued 0844 (Given - Provider: Herlinda Flores, OLIVIA)2100 (Given - Provider: Tosin Mcknight, OLIVIA) 0911 (Given - Provider: Jazlyn Hahn RN)2039 (Given - Provider: Hazel Tadeo, OLIVIA) 0918 [...] Reason: Patient/family refused) 0918 (Given - Provider: eKyla Trejo, OLIVIA) potassium chloride 10 mEq in sterile water 100 mL infusion (COMPLETED) 10 mEq, Intravenous, EVERY 2 HOURS, 2 doses, First dose on Tue08/06/22 at 1000, Last dose on Tue08/06/22 at 1200, Administer over 60 Minutes, Warning Vesicant/Irritant Medication 1114 (New Bag - Provider: Herlinda Flores RN)1159 (Stopped - Provider: Herlinda Flores, RN)1222 (New Bag - Provider: Herlinda Flores, OLIVIA)1322 (Stopped - Provider: Herlinda Flores, OLIVIA) QUEtiapine [...] Routine 0851 (Given - Provider: Herlinda Flores, OLIVIA)213 (Given - Provider: Tosin Mcknight, OLIVIA) 09 (Given - Provider: Jazlyn Hahn, OLIVIA)2039 (Given - Provider: Hazel Tadeo, OLIVIA) 09 [...] OLIVIA) 0451 (New Bag - Provider: Tosin Mcknight RN)0910 (Stopped - Provider: Jazlyn Hahn, OLIVIA) HYDROmorphone (Dilaudid) (1 mg/mL) in sodium chloride 0.9% 50 mL SENIOR CLINICAL STUDY MANAGER infusion syringe (CANCELED) Intravenous, SENIOR CLINICAL STUDY MANAGER ONLY, Starting on Teresa 08/05/22 at 1200, [...] (See Alternativ e - Provider: Keyla Trejo RN)105 (See Alternative - Provider: Keyla Trejo RN)1454 (See Alternative - Provider: Keyla Trejo RN) oxyCODONE (Roxicodone) tablet 5-10 mg(Linked Group 2) 5-10 mg, Oral, EVERY 4 HOURS PRN, Starting on 08/08/22 at 0738, Until 08/08/22 at 1739, Pain, moderate pain (4-6), Initial dose 5mg. If pain control not adequate in 60 minutes, give additional 5mg., Routine 09 (Given - Provid er: Keyla Trejo RN)105 (Given - Provider: Keyla Trejo RN - [...] Routine documented in this encounter Care Teams Precision Crop Manager Relationship Specialty Start Date End Date Lena Womack, JACKIE PCP - General Family Medicine 08/02/22 04/07/24 documented as of this encounter
--- OUTSIDE RECORDS SUMMARY | 2024-06-21 20:09 | XMS_ITS | Encounter Summary ---
Author Organization [facility] [place] [address] Care Team Providers Care Gallery Intern Name Role Phone Lena Womack Ronal MEJIA Primary Care Provider [phone] Reason for Visit * Auth/Cert (Routine) Specialty Diagnoses / Procedures Referred By Contbyron t Referred To Contact Diagnoses Adnexal mass Antonio Rojas MD [facility] Referral ID Status Reason Start Date Expiration Date Visits Re quested Visits Authorized [id number] 1 1 Encounter Details Date Type Department Care Team (Late st Contact Info) Description 08/05/2022 2:19 PM EST Anesthesia [place] [address] Alma Leiva MD [facility] [place] [address] Julio Cesar Lora CRNA [facility] [place] [address] Anesthesia Record Procedure Summary Procedure Name Responsible [...] RN Incision 08/02/22; 1854; abdo men; midline 08/02/221853 by Delaney Wiggins, OLIVIA (RETIRED) Peripheral IV Line - Single Lumen 08/02/22; 1804; metacarpal vein (top of hand), right; jomi-ehe-esvegy catheter system; Anatomical Landmarks; 18 gauge; removed per physician, catheter/device intact, no longer indicated; 08/08/22; 1507 08/02/22 1804 by Mery Murphy, BRAKE SPECIALIST 08/08/22 1507 by Keyla Trejo RN Urethral [...] Procedure Summary Date: 08/05/22 Room / Location: [facility] ENDO 3 / [facility] ENDOSCOPY Anesthesia Start: 1419 Anesthesia Stop: 1455 Procedure: EGD, UPPER GI ENDOSCOPY (Trunk) Diagnosis: (GOO) Surgeons: Donnie Obrien MD Responsible Provider: Alma Leiva MD Anesthesia Type: MAC ASA Status: 3 All Anesthesia Providers: Anesthesiologist: Alma Leiva MD BRAKE SPECIALIST: Julio Cesar Lora CRNA Vitals Value Taken Time BP 175/88 08/05/22 1550 Temp Pulse Resp 18 08/05/22 1500 SpO2 91 % 08/05/22 1556 Pain Level 5 08/05/22 1500 Vitals shown include unvalidated device data. Patient Location: PACU/[facility] Level of Consciousness: Awake and Alert Pain [...] MAMMOPLASTY, EVA performed by DEMETRA SOMMERS at [facility] MAIN OR ??? PRO LAP, DIAGNOSTIC ABDOMEN Left 08/02/2022 LAPAROSCOPY, DIAGNOSTIC, ABDOMEN (WRVU 5.14) performed by Antonio Rojas MD at [facility] MAIN OR ??? PRO REMOVAL OF OVARY/TUBE(S) Left 08/02/2022 @[place]-OOPHORECTOMY, UNILATERAL OR EVA (WRVU 12.16) performed by Antonio Rojas MD at [facility] MAIN OR Social History Tobacco Use ??? 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 Plan discussed with BRAKE SPECIALIST. Anesthesia Screening documented in this encounter Plan of Treatment Not on file documented as of this encounter Visit Diagnoses Not on filedocumented in this encounter Administered Medications Inactive Administered Medications - up to 3 most recent administrations Medication Order MAR Action Action Date Dose Rate Site dexmedeTOMIDine (Precedex) (4 mcg/mL) bolus injection (Anesthsia) Intravenous, PRN, Starting on Teresa 08/05/22 at 1432, Until Teresa 08/05/22 at 1455, Anesthesia Intra-op, [...] Teresa 08/05/22 at 1455, Anesthesia Intra-op, Routine New Bag 08/05/2022 2:25 PM EST 200 mcg/kg/min 117 mL/hr documented in this encounter Care Teams Gallery Intern Relationship Specialty Start Date End Date Lena Womack, JACKIE PCP - General Family Medicine 08/02/22 04/07/24 documented as of this encounter
--- OUTSIDE RECORDS SUMMARY | 2024-06-21 20:09 | XMS_ITS | Encounter Summary ---
[place] [address] Care Team Providers Care Electro Mechanic Name Role Phone Lena Womack APRN Primary Care Provider [phone] Reason for Referral * Consultation (Routine) - Closed Specialty Diagnoses / Procedures Referred By Contac t Referred To Contact [facility] Diagnoses Lumbar disc herniation with radiculopathy Lena Womack APRN [address] [place] [address] [facility] [place] [address] Referral ID Status Reason Start Date Expiration Date V isits Requested Visits Authorized [id number] Closed Consult, Test & Treat PCP Updated and/or Approved 08/24/2022 08/24/2023 1 1 Encounter Details Date Type Department Care Team (Latest Contact Info) Description 08/24/2022 Transcribe Orders eDH Incoming Referrals [phone] Lena Womack APRN [address] [place], [place] [id number] Lumbar disc herniation with radiculopathy Social History [...] as of this encounter Plan of Treatment Scheduled Referrals Name Type Priority Associated Diagnoses Orde r Schedule Referral to Pain Management Outpatient Referral Routine Lumbar disc herniation with radiculopathy Ordered: 08/24/2022 documented as of this encounter Visit Diagnoses Diagnosis Lumbar disc herniation with radiculopathy Displacement of lumbar intervertebral disc without myelopathy documented in this encounter Care Teams Electro Mechanic Relationship Specialty Start Date End Date Lena Womack, JACKIE PCP - General Family Medicine 08/02/22 04/07/24 documented as of this encounter
--- OUTSIDE RECORDS SUMMARY | 2024-06-21 20:09 | XMS_ITS | Encounter Summary ---
Author Organization [facility] [place] [address] Care Team Providers Care Produce Field Merchandiser Name Role Phone Shanta Lena Villeda APRN Primary Care Provider [phone] Encounter Details Date Type Department Care Team (Late st Contact Info) Description 09/25/2022 11:05 AM EDT Ancillary Procedure Radiology Library at [facility] [place] [id number] Ridge Duenas MD [facility] [place] [address] Social History Tobacco Use Types Packs/Day Years [...] CT Spine (09/25/2022 10:57 AM EDT) Narrative RAD - 09/25/2022 10:57 AM EDT This exam is auto-finalizing. It's purpose is for storage only. Ridge Duenas MD IMG FILM LIBRARY ORD ERABLES [place], [place] documented in this encounter Visit Diagnoses Not on filedocumented in this encounter Care Teams Produce Field Merchandiser Relationship Specialty Start Date End Date Lena Womack, JACKIE PCP - General Family Medicine 08/02/22 04/07/24 documented as of this encounter
--- OUTSIDE RECORDS SUMMARY | 2024-06-21 20:09 | XMS_ITS | Encounter Summary ---
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 According to [facility] Bar Machine Operator Production [place] notes, she did have urinary incontinence [...] have capacity. [facility] will be called. Gloria dHz MD 09/25/2022 12:26 PM [facility] Neurosurgery documented in this encounter Plan of Treatment Not on file documented as of this encounter Visit Diagnoses Not on filedocumented in this encounter Care Teams Gunstock Repairer Relationship Specialty Start Date End Date Lena Womack APRN PCP - General Family Medicine 08/02/22 04/07/24 documented as of this encounter
--- OUTSIDE RECORDS SUMMARY | 2024-06-21 20:09 | XMS_ITS | Encounter Summary ---
Author Organization [facility] [place] [address] Care Team Providers Care Manufacturing Laborer Name Role Phone Shanta Lena Villeda APRN Primary Care Provider [phone] Encounter Details Date Type Department Care Team (Late st Contact Info) Description 09/25/2022 11:00 AM EDT Ancillary Procedure Radiology Library at [facility] [place] [id number] Ridge Duenas MD [facility] [place] [address] Social History Tobacco Use Types Packs/Day Years [...] & Pelvis (09/25/2022 10:56 AM EDT) Narrative RAD - 09/25/2022 10:56 AM EDT This exam is auto-finalizing. It's purpose is for storage only. Ridge Duenas MD IMG FILM LIBRARY ORD ERABLES Performing Organization Address City/State/[facility] Co de Phone Number [place], [place] documented in this encounter Visit Diagnoses Not on filedocumented in this encounter Care Teams Manufacturing Laborer Relationship Specialty Start Date End Date Lena Womack APRN PCP - General Family Medicine 08/02/22 04/07/24 documented as of this encounter
--- OUTSIDE RECORDS SUMMARY | 2024-06-21 20:09 | XMS_ITS | Encounter Summary ---
[place] [address] Care Team Providers Care Perfect Bind Machine Operator Name Role Phone Lena Womack APRN Primary Care Provider [phone] Encounter Details Date Type Department Care Team (Late st Contact Info) Description 08/12/2022 Orders Only [place] [address] Sury Madden, RN S/P hysterectomy Social History [...] uterus documented in this encounter Care Teams Perfect Bind Machine Operator Relationship Specialty Start Date End Date Lena Womack APRN PCP - General Family Medicine 08/02/22 04/07/24 documented as of this encounter
--- OUTSIDE RECORDS SUMMARY | 2024-06-21 20:09 | XMS_ITS | Encounter Summary ---
[place] [address] Care Team Providers Care Hatchery Attendant Name Role Phone Lena Womack APRN Primary Care Provider [phone] Reason for Referral * Consultation (Urgent) - Closed Specialty Diagnoses / Procedures Referred By Contbyron t Referred To Contact Neurosurgery Diagnoses Herniation of lumbar intervertebral disc with radiculopathy Cervical disc disease with myelopathy Urinary retention Lena Womack APRN [address] [place] [address] [facility] Neurosurgery [address] [place] [id number] Referral ID Status Reason Start Date Expiration Date V isits Requested Visits Authorized [id number] Closed Consult, Test & Treat PCP Updated and/or Approved 10/04/2022 10/04/2023 12 12 Encounter Details Date Type Department Care Team (Latest Contact Info) Description 10/04/2022 Transcribe Orders eDH Incoming Referrals [phone] Lena Womack APRN [address] [place], [place] [id number] Herniation of lumbar intervertebral disc with radiculopathy; [...] unspecified documented in this encounter Care Teams Hatchery Attendant Relationship Specialty Start Date End Date Lena Womack APRN PCP - General Family Medicine 08/02/22 04/07/24 documented as of this encounter
--- OUTSIDE RECORDS SUMMARY | 2024-06-21 20:09 | XMS_ITS | Encounter Summary ---
Author Organization [facility] [place] [address] Care Team Providers Care High Pressure Kettle Operator Name Role Phone Lena Womack APRN Primary Care Provider [phone] Reason for Visit * Reason Comments Extremity Weakness * Auth/Cert (Routine) Specialty Diagnoses / Procedures Referred By Cosmo t Referred To Contact Diagnoses Cervical myelopathy Procedures ER IPI Tien Zurita MD [facility] [place] [address] [address] [facility] Referral ID Status Reason Start Date Expiration Date Visits Re quested Visits Authorized [id number] 1 1 Encounter Details Date Type Department Care Team (Late st Contact Info) Description 12/02/2022 1:00 PM EDT - 12/02/2022 5:45 PM EDT [place] [address] Tien Zurita MD [facility] [place] [address] [address] @ARTHRODESIS, POSTERIOR CERVICAL SPINE (WRVU 17.4) Social [...] and deemed appropriate for discharge to [facility]. Patient was discharged in stable [...] who have questions please contact the health ostomy care nurse that requested your imaging first. Electronically signed by: Elizabeth Fishman MD, [facility] ([phone]), at 11/30/2022 9:[address] Thoracic Spine [...] who have questions please contact the health ostomy care nurse that requested your imaging first. Electronically signed by: Elizabeth Fishman MD, [facility] ([phone]), at 12/01/2022 12:[address] Lumbar Spine [...] who have questions please contact the health ostomy care nurse that requested your imaging first. Electronically signed by: Elizabeth Fishman MD, [facility] ([phone]), at 12/01/2022 12:53 AM MRI Cervical Spine [...] who have questions please contact the health ostomy care nurse that requested your imaging first. Thoracic Spine [...] who have questions please contact the health ostomy care nurse that requested your imaging first. Lumbar Spine [...] who have questions please contact the health ostomy care nurse that requested your imaging first. Chest PA & Lateral (Generic) (Exam End: 12/01/2022 11:48 AM) Impression No acute findings. Thank you for letting us participate in the care of this patient. If you are a health care provider and have any questions regarding this report, please contact the number below. For patients who have questions please contact the health ostomy care nurse that requested your imaging first. Cervical Spine [...] who have questions please contact the health ostomy care nurse that requested your imaging first. Pending Studies and Lab Data: NA Discharge Condition: Stable Discharge to: [facility] Future Appointments and Orders Future Appointments and Orders Future Appointments Provider Department Dept Phone 01/17/2023 1:40 PM Tien Zurita MD [facility] Spine Center at [facility] Arrive at: Underwriting Clerks Supervisor Area 3D [phone] Future Orders Complete By Expires XR Cervical Spine 2 or 3 Views [[id number] Custom] 01/08/2023 (Approximate) 07/10/2023 Process Instructions: Scheduling Instructions: Questions: Reason for exam and clinical history: s/p C4-T2 PSIF, C5-7 laminectomy Clinical information / wood questions for radiologist: Where will study be performed?: [facility] Radiology Portable exam?: Stat read required?: Date [...] anticoagulant, and non-steroidal anti-inflammatory (NSAIDs) drugs. Common vudb-yqg-plzfget medications which should be avoided include Aspirin, [...] to pass. These medications can be obtained dtgc-naj-joepbke and their use is recommended on an [...] retention Constipation not relieved by diet and/or rqfg-aim-xhqffem stool softeners and laxatives Nausea/vomiting (upset stomach) [...] have tobacco dependence clinics in these locations: [facility] for Tobacco-Free Communities: [facility] [place] [facility] Tobacco Treatment [place], [place] Other Programs at [facility] in [place] Free of Tobacco support group: For anyone who has quit tobacco or is considering quitting tobacco. [facility] Health Education Center, Level 4, [place] 3:30 to 4:30 p.m. on the tuesday of every month. Other Programs in the Area [facility] in [place] One-on-one counseling, hypnosis. Calista [facility] in [place], [place] One-on-one counseling, QuitLine, classes. Sailaja Palma [facility]: One-on-one counseling. All ages and incomes eligible. [facility]: Classes & support group. Surendra Oewns [facility] in [place], [place] One-on-one counseling, QuitLine, classes, hypnosis therapy. Kaylee Trejo Information about Quitting Smoking and Tobacco See our Quitting Smoking - Information and Materials page (http://www.[facility].org/medical- information/smoking/information_on_quitting_smoking.html) for educational information about quitting [...] yourPrimary Care Provider or with the Neurosurgery FILM PROCESS OPERATOR/RN. Your sutures/parminder may also be removed at rehab. Appointments: Please follow up in the Neurosurgery Clinic on 01/17/2023 at 1:40pm. Please call the Neurosurgery Office at [phone] if you do not receive a scheduled appointment within two weeks. Your follow-up appointment will be with: [] Dr. Krishna [] Dr. Snowden [x] Dr. Zurita [] Dr. Duenas [] Dr. Jacques [] Dr. Solis [] Associate Provider Follow-up Imaging: XR - Cervical HOW TO REACH NEUROSURGERY Office Hours: Tuesday through Tuesday, 8am-5pm. Call . On weekends or after office hours: Call [phone] and ask the pulper operator to page the Neurosurgery Resident/Advanced Practice Provider information engineer. Neurosurgery Providers Adult Neurosurgery Dr. Juan Duenas Pediatric Neurosurgery Dr. Calista Herrmann Advanced Practice Providers Daniela Troy, Nurse Practitioner (outpatient) Christina Pagan, Physician Aquarium Specialist (inpatient/outpatient: neuro-oncology) Vikki Bowen, Physician Aquarium Specialist (inpatient) Seb Yuen, Nurse Practitioner (outpatient: pediatric) Joan Kwon, Nurse Practitioner (outpatient: vascular) Elenita Nuñez Physician Aquarium Specialist (outpatient: spine) Dioni Duong, Nurse Practitioner (inpatient/outpatient) Angel Hankins, Physician Aquarium Specialist (outpatient) Outpatient Nurses Laura Womack MD 12/16/2022 [...] anticoagulant, and non-steroidal anti-inflammatory (NSAIDs) drugs. Common mkwq-qaa-rhjnilg medications which should be avoided include Aspirin, [...] to pass. These medications can be obtained jdox-nin-wftphdb and their use is recommended on an [...] retention Constipation not relieved by diet and/or tikg-kxr-jhvvrhi stool softeners and laxatives Nausea/vomiting (upset stomach) [...] have tobacco dependence clinics in these locations: [facility] for Tobacco-Free Communities: [facility] [place] [facility] Tobacco Treatment [place], [place] Other Programs at [facility] in [place] Free [place] Tobacco support group: For anyone who has quit tobacco or is considering quitting tobacco. [facility] Health Education Center, Level 4, [place] 3:30 to 4:30 p.m. on the tuesday of every month. Other Programs in the Area [facility] in [place] One-on-one counseling, hypnosis. Calista [facility] in [place], [place] One-on-one counseling, QuitLine, classes. Sailaja [facility]: One-on-one counseling. All ages and incomes eligible. [facility]: Classes & support group. Surendra Owens [facility] in [place], [place] One-on-one counseling, QuitLine, classes, hypnosis therapy. Kaylee Maya Information about Quitting Smoking and Tobacco See our Quitting Smoking - Information and Materials page (http://www.[facility].org/medical- information/smoking/information_on_quitting_smoking.html) for educational information about quitting [...] yourPrimary Care Provider or with the Neurosurgery FILM PROCESS OPERATOR/RN. Your sutures/parminder may also be removed at rehab. Appointments: Please follow up in the Neurosurgery Clinic on 01/17/2023 at 1:40pm. Please call the Neurosurgery Office at [phone] if you do not receive a scheduled appointment within two weeks. Your follow-up appointment will be with: [] Dr. Krishna [] Dr. Snowden [x] Dr. Zurita [] Dr. Duenas [] Dr. Jacques [] Dr. Solis [] Associate Provider Follow-up Imaging: XR - Cervical HOW TO REACH NEUROSURGERY Office Hours: Tuesday through Tuesday, 8am-5pm. Call . On weekends or after office hours: Call [phone] and ask the pulper operator to page the Neurosurgery Resident/Advanced Practice Provider information engineer. Neurosurgery Providers Adult Neurosurgery Dr. Juan Duenas Pediatric Neurosurgery Dr. Calista Herrmann Advanced Practice Providers Daniela Troy, Nurse Practitioner (outpatient) Christina Pagan, Physician Aquarium Specialist (inpatient/outpatient: neuro-oncology) Vikki Bowen, Physician Aquarium Specialist (inpatient) Seb Yuen, Nurse Practitioner (outpatient: pediatric) Joan Kwon, Nurse Practitioner (outpatient: vascular) Elenita Nuñez, Physician Aquarium Specialist (outpatient: spine) Dioni Duong, Nurse Practitioner (inpatient/outpatient) Angel Hankins, Physician Aquarium Specialist (outpatient) Outpatient Nurses Laura Loyd documented in [...] 12/16/2022 10:28 AM EDT Office of Care Management/Heavy Mobile Equipment Repairer Patient Name: Katheryn Carranza : 1960 Patient has been offered a SNF bed at [facility] for today, 12/16/22 Patient to transport to facility via private car around 12:00 No MD to MD report necessary Please call Nursing Report to , ask for medical scientist. Info to accompany patient: Copies of Medication Administration Records and IV sheets for past 10 days. Plan: Heavy Mobile Equipment Repairer will be available to the patient and Brass Pickler-RN and/or Social Workerfor further assistance. Patient will be discharged to: [facility] Jf Raphael Heavy Mobile Equipment Repairer * Ashley Kwon RN - 12/16/2022 10:18 AM EDTSummary: NOTE OF MEDICAL NECESSITY FOR AMBULANCE TRANSPORT Physician Certification Statement for Non-Emergency Ambulance Services Section I - General Information Katheryn Carranza 1960 Medicare Number: [id number] Transport Date: 12/16/22 (PCS is valid for round trips on this date and for all repetitive trips in the 60-day range as noted below.) Origin: [facility] Destination: [facility] Is the patient's stay covered [...] wheelchair van (i.e. seated during transport, without director of medical review or monitoring?): No 4) In addition to complete questions 1-3 above, please select any of the following conditions that apply: *Note: supporting documentation for any boxes checked must be maintained in the patient's medical records Moderate/severe pain on movement bistro attendant required Unable to tolerate seated position [...] the Centers of Medicare and Medicaid Services ([facility]) to support the determination of medical [...] tolerated seated position for time of transport, director of medical review required.. I have discussed Medicare/Private Insurance reimbursement guidelines for ambulance transport. I have also discussed need to accept the closest facility able to meet clinical care needs of patient. Patient/support system (name of individual)pt and verbalize understanding of their potential financial obligation and agree with ambulance transport. Ashley Kwon MSN-Ed, RN ACM voip network engineer Office of Care Management Pager #[phone] * Ashley Kwon RN - 12/16/2022 10:14 AM EDTSummary: ANGELITA PASRR [facility] [place] [place] PRE-ASSESSMENT SCREENING AND RESIDENT REVIEW (PASRR): LEVEL [...] Nursing Facility is the individual seeking admission? [facility] Part A - Exemption If [...] form must be completed by the admitting correction in full and submitted. Part B - [...] a psychiatric disorder or substance use disorder? Butler YES if any of the subcategories below [...] PASRR evaluation is required. Please notify the MH PASRR Coordinator, [address] [place] [address], [address] [place] [address] , or , or call . Part [...] DDS PASRR coordinator, [address], [address] [place] [address] or FAX , or call Completed copies of this form have been distributed to: [facility] nursing facility Name & Title of Person Completing Form: Ashley Kwon RN Signature of Person Completing Form: Ashley Kwon MSN-Ed, RN ACM voip network engineer Office of Care Management Pager #[phone] Hospital/Facility Address: [address] [place] [address] Phone #: [phone] Email: [email or web address] Date: 12/16/22 Please mail or fax all original signed LEVEL I PASRR forms to: Department of Mental Health, Attn: PASRR Coordinator, [address] [place] [address], [address] [address] or * Sudeep Womack MD - 12/16/2022 5:06 AM EDT NEUROSURGERY PROGRESS NOTE PLEASE PAGE [phone] WITH QUESTIONS ID: Katheryn Carranza is a [...] on left side Breast hypertrophy A/P: Katheryn L Auburn is a 62 y.o. female with PMH [...] control -Diet: Regular diet. -Activity as tolerated. -PT/OT/CONCRETE VIBRATOR OPERATOR : Anticipated Discharge Disposition (PT): retirement facility, swing bed rehabilitation facility (12/14/22 1051)} -Dispo: MR for d/c Please page [phone] with questions/concerns for in-house NSGY patients Sudeep Womack MD 12/16/2022 * Louie Rosario MD - 12/15/2022 10:12 AM EDT NEUROSURGERY PROGRESS NOTE PLEASE PAGE [phone] WITH QUESTIONS ID: Katheryn Carranza is a [...] control -Diet: Regular diet. -Activity as tolerated. -PT/OT/CONCRETE VIBRATOR OPERATOR : Anticipated Discharge Disposition (PT): retirement facility, swing bed rehabilitation facility (12/14/22 1059)} -Dispo: MR for d/c Please page [phone] with questions/concerns for in-house NSGY patients MEDICATIONS: [...] Fall history: had a fall 4 days FURNITURE DECALS INSPECTOR Precautions/Special Considerations: at risk to fall, SBP [...] the current findings, Anticipated Discharge Disposition (PT): retirement facility, swing bed rehabilitation facility when medically [...] (TE-F x 3) Gauri Villanueva, PT Pager: [phone] Physical Therapy Inpatient Rehabilitation Department * Lelia [...] and therapy goals Anticipated Discharge Disposition (OT): retirement facility Equipment Recommendations: Equipment Needs Upon Discharge [...] Minutes, Occupational Therapy: 30 (2x schm) Pager: [phone] NALLELY Arriola Occupational Therapy Rehabilitation Department * Louie Rosario MD - 12/14/2022 7:02 AM EDT NEUROSURGERY PROGRESS NOTE PLEASE PAGE [phone] WITH QUESTIONS ID: Katheryn Carranza is a [...] control -Diet: Regular diet. -Activity as tolerated. -PT/OT/CONCRETE VIBRATOR OPERATOR : Anticipated Discharge Disposition (PT): retirement facility, swing bed rehabilitation facility (12/09/22 5599)} -Dispo: MR for d/c Please page [phone] with questions/concerns for in-house NSGY patients MEDICATIONS: [...] scheduled for a follow up nutrition evaluation. Bankruptcy Judge met with pt at bedside. Per documentation patient has excellent PO intakes recorded at 75-100% over the past 3 days. According to [employer] software they have ordered an average ~2671kcals/day within the same duration. Pt shares an okay appetite and eats all of their breakfast and less of their lunch and dinner d/t yucky entree's and being picky. Bankruptcy Judge suggested adding afternoon snacks to help with afternoon hunger, pt agreed. Bankruptcy Judge also informed pt of access to the [...] questions answered at this time Aimee Leung Slate Worker * Caitlin Humphrey MSW - 12/13/2022 11:50 AM EDT MOP MACHINE OPERATOR completed the Choices for Care [facility] long-term care Medicaid application with patient and spouse, Prieto. Application and financial verification given to [employer]TC Heavy Mobile Equipment Repairer, Jade Valente to upload to Department [facility] Health Access (HA). Spouse has made two calls to his employer's HR department to see if they would be able to get patient's new [facility]'s ID member number and group number instead of waiting for new insurance cards to show up in their mail. Patient and family also requesting Ashley BAKER CM make a SNF referral to [facility], OLIVIA DONOHUE informed. MOP MACHINE OPERATOR to continue to provide psychosocial supports for patient and family if/when needed. * Ashley Kwon RN - 12/13/2022 11:07 AM EDT Pt/family would like to expand the search for SNF to include: [facility] [address] [place] [address] P: [phone] F: [phone] LYUDMILA: 12/13/22 Ashley Kwon MSN-Ed, RN ACM voip network engineer Office of Care Management Pager #[phone] * Louie Rosario MD - 12/13/2022 7:00 AM EDT NEUROSURGERY PROGRESS NOTE PLEASE PAGE [phone] WITH QUESTIONS ID: Katheryn Carranza is a [...] control -Diet: Regular diet. -Activity as tolerated. -PT/OT/CONCRETE VIBRATOR OPERATOR : Anticipated Discharge Disposition (PT): retirement facility, swing bed rehabilitation facility (12/09/22 1337)} -Dispo: MR for d/c Please page [phone] with questions/concerns for in-house NSGY patients MEDICATIONS: [...] AM EDT NEUROSURGERY PROGRESS NOTE PLEASE PAGE [phone] WITH QUESTIONS ID: Katheryn Carranza is a [...] -Macrobid x 5d for UTI started 12/04 -PT/OT/CONCRETE VIBRATOR OPERATOR : Anticipated Discharge Disposition (PT): retirement facility, swing bed rehabilitation facility (12/09/22 3596)} -Dispo: MR for d/c Please page [phone] with questions/concerns for in-house NSGY patients MEDICATIONS: [...] returned from the weather observer: Page for [phone] successfully sent to [...] MD aware. Pt needy and very frequently information engineer lange multiple times an hour, also requests pain meds frequently. OOB with all meals, and most of day, must be encouraged and firm with this per team. No purewick per team, continue maximizing her independence. PLAN MOVING FORWARD: Q4VS Q4NC Encourage OOB Pain control Placement * Seb Abernathy PA - 12/11/2022 5:19 AM EDT NEUROSURGERY PROGRESS NOTE PLEASE PAGE [phone] WITH QUESTIONS ID: Katheryn Carranza is a [...] -Must encourage mobilization with PTOT and nursing -PT/OT/CONCRETE VIBRATOR OPERATOR : Anticipated Discharge Disposition (PT): retirement facility, swing bed rehabilitation facility (12/09/22 9880)} Please page [phone] with questions/concerns for in-house NSGY patients IMAGING: [...] who have questions please contact the health ostomy care nurse that requested your imaging first. Electronically signed by: Elizabeth Fishman MD, [facility] ([phone]), at 11/30/2022 9:[address] Thoracic Spine [...] who have questions please contact the health ostomy care nurse that requested your imaging first. Electronically signed by: Elizabeth Fishman MD, [facility] ([phone]), at 12/01/2022 12:[address] Lumbar Spine [...] who have questions please contact the health ostomy care nurse that requested your imaging first. Electronically signed by: Elizabeth Fishman MD, [facility] ([phone]), at 12/01/2022 12:53 AM MRI Cervical Spine [...] who have questions please contact the health ostomy care nurse that requested your imaging first. Thoracic Spine [...] who have questions please contact the health ostomy care nurse that requested your imaging first. Lumbar Spine [...] who have questions please contact the health ostomy care nurse that requested your imaging first. Chest PA & Lateral (Generic) (Exam End: 12/01/2022 11:48 AM) Impression No acute findings. Thank you for letting us participate in the care of this patient. If you are a health care provider and have any questions regarding this report, please contact the number below. For patients who have questions please contact the health ostomy care nurse that requested your imaging first. Cervical Spine [...] who have questions please contact the health ostomy care nurse that requested your imaging first. CATIONS: Scheduled [...] Humphrey MSW - 12/10/2022 10:44 AM EDT MOP MACHINE OPERATOR met with patient and spouse, Prieto Carranza and began the [place] long-term care Medicaid application ~Choices for Care. Spouse to bring in the last of the needed financial verification documentation this evening and once received, MOP MACHINE OPERATOR will give completed application to the Office of Care Management ~[facility] Medicaid Heavy Mobile Equipment Repairer to upload to the Department of [place] Health Access (DVHA). Patient also signed an authorized airport representative form naming her spouse as her authorized rep. MOP MACHINE OPERATOR to follow up with patient and spouse and complete long-term care Medicaid application. MOP MACHINE OPERATOR did contact the Department of Aging & Independent Living (TON[place]) state nurse, Sylvia Lerma RN, [facility]: [phone], who is the clinical nurse that will qualify this patient physically for this program, to let her know of patient's pending application. MOP MACHINE OPERATOR also informed her of patient'schoice of a CM agency: [facility] [place] [employer]. * Louie Rosario MD - 12/10/2022 9:31 AM EDT NEUROSURGERY PROGRESS NOTE PLEASE PAGE [phone] WITH QUESTIONS ID: Katheryn Carranza is a [...] -Macrobid x 5d for UTI started 12/04 -PT/OT/CONCRETE VIBRATOR OPERATOR : Anticipated Discharge Disposition (PT): retirement facility, swing bed rehabilitation facility (12/09/22 1417)} Please page [phone] with questions/concerns for in-house NSGY patients IMAGING: [...] who have questions please contact the health ostomy care nurse that requested your imaging first. Electronically signed by: Elizabeth Fishman MD, [facility] ([phone]), at 11/30/2022 9:[address] Thoracic Spine [...] who have questions please contact the health ostomy care nurse that requested your imaging first. Electronically signed by: Elizabeth Fishman MD, [facility] ([phone]), at 12/01/2022 12:[address] Lumbar Spine [...] who have questions please contact the health ostomy care nurse that requested your imaging first. Electronically signed by: Elizabeth Fishman MD, [facility] ([phone]), at 12/01/2022 12:53 AM MRI Cervical Spine [...] who have questions please contact the health ostomy care nurse that requested your imaging first. Thoracic Spine [...] who have questions please contact the health ostomy care nurse that requested your imaging first. Lumbar Spine [...] who have questions please contact the health ostomy care nurse that requested your imaging first. Chest PA & Lateral (Generic) (Exam End: 12/01/2022 11:48 AM) Impression No acute findings. Thank you for letting us participate in the care of this patient. If you are a health care provider and have any questions regarding this report, please contact the number below. For patients who have questions please contact the health ostomy care nurse that requested your imaging first. Cervical Spine [...] who have questions please contact the health ostomy care nurse that requested your imaging first. CATIONS: Scheduled [...] she was aware though failed tocommunicate to air liaison and special staff, education provided on importance of calling for assist in the future to insure skin protection. Transferred to [facility] with [facility]ga and [facility]ww, pt hunched over [...] and therapy goals Anticipated Discharge Disposition (OT): retirement facility Equipment Recommendations: Equipment Needs Upon Discharge [...] Minutes, Occupational Therapy: 35 (2x schm) Pager: [phone] NALLELY Arriola Occupational Therapy Rehabilitation Department * [...] Fall history: had a fall 4 days FURNITURE DECALS INSPECTOR Precautions/Special Considerations: at risk to fall, SBP [...] the current findings, Anticipated Discharge Disposition (PT): retirement facility, swing bed rehabilitation facility when medically [...] as stated. Total Minutes, Physical Therapy: 57 ([id number]) Billing Code: TEFx4 Kenyon Patrick, FURNITURE DECALS INSPECTOR Pager: [phone] Physical Therapy Inpatient Rehabilitation Department * Louie Rosario MD - 12/09/2022 6:55 AM EDT NEUROSURGERY PROGRESS NOTE PLEASE PAGE [phone] WITH QUESTIONS ID: Katheryn Carranza is a 62 y.o. female with CSM who presented with worsening weakness and urinary incontinence since a fall 4 days prior to presentation. HD# 9 POD # 7 Days Post-Op 12/02/22 Dr. Echt: C4-T2 PSIF, C5-7 laminectomies [...] -Macrobid x 5d for UTI started 12/04 -PT/OT/CONCRETE VIBRATOR OPERATOR : Anticipated Discharge Disposition (PT): retirement facility, swing bed rehabilitation facility, acute rehabilitation facility (12/06/22 1035)} Please page [phone] with questions/concerns for in-house NSGY patients IMAGING: [...] who have questions please contact the health ostomy care nurse that requested your imaging first. Electronically signed by: Elizabeth Fishman MD, [facility] ([phone]), at 11/30/2022 9:[address] Thoracic Spine [...] who have questions please contact the health ostomy care nurse that requested your imaging first. Electronically signed by: Elizabeth Fishman MD, [facility] ([phone]), at 12/01/2022 12:[address] Lumbar Spine [...] who have questions please contact the health ostomy care nurse that requested your imaging first. Electronically signed by: Elizabeth Fishman MD, [facility] ([phone]), at 12/01/2022 12:53 AM MRI Cervical Spine [...] who have questions please contact the health ostomy care nurse that requested your imaging first. Thoracic Spine [...] who have questions please contact the health ostomy care nurse that requested your imaging first. Lumbar Spine [...] who have questions please contact the health ostomy care nurse that requested your imaging first. Chest PA & Lateral (Generic) (Exam End: 12/01/2022 11:48 AM) Impression No acute findings. Thank you for letting us participate in the care of this patient. If you are a health care provider and have any questions regarding this report, please contact the number below. For patients who have questions please contact the health ostomy care nurse that requested your imaging first. Cervical Spine [...] who have questions please contact the health ostomy care nurse that requested your imaging first. CATIONS: Scheduled [...] Patient screened for hospital length of stay. Bankruptcy Judge attempted to visit patient but was unable [...] unless consulted in the interim. Myla Goldman [phone] * Ashley Kwon RN - 12/08/2022 2:13 PM EDT Based on discussions with the multi-disciplinary healthcare team, the patient would benefit from SNF level of care at discharge. I have met with the patient to: discuss discharge planning needs. provide the [facility], Office of Care Management letter from the [employer] pertaining to rehab referrals. provide a letter describing our affiliations within the [facility] and educate about their right to choose where referrals are sent. provide the CMS Star Quality Rating handout. review the different levels of rehab including SNF, swing, and acute. provide a list of facilities within their preferred geographic area. request that they provide at least three choices for referral. They have requested referrals to: [facility] [address] [address] [facility] ([facility]) [address] [place] [address] [facility] ([facility]) [address] [place] [address] [phone] LYUDMILA: 12/08/22 Does patient have COVID vaccine card: Yes; Copy obtained: No Note routed to a Heavy Mobile Equipment Repairer who will communicate referrals to facilities and provide any required information. Ashley Kwon MSN-Ed, RN ACM voip network engineer Office of Care Management Pager #[phone] * Lelia Carballo OTA - 12/08/2022 10:05 [...] Dressing: Mod A to swap out matt loyan Toileting: Pt had been incontinent in bed (purewick failed) reported she was aware though failed tocommunicate to air liaison and special staff, education provided on importance of calling for [...] and therapy goals Anticipated Discharge Disposition (OT): retirement facility Equipment Recommendations: Equipment Needs Upon Discharge [...] Minutes, Occupational Therapy: 25 (2x schm) Pager: [phone] NALLELY Arriola Occupational Therapy Rehabilitation Department * Louie Rosario MD - 12/08/2022 6:47 AM EDT NEUROSURGERY PROGRESS NOTE PLEASE PAGE [phone] WITH QUESTIONS ID: Katheryn Carranza is a [...] -Macrobid x 5d for UTI started 12/04 -PT/OT/CONCRETE VIBRATOR OPERATOR : Anticipated Discharge Disposition (PT): retirement facility, swing bed rehabilitation facility, acute rehabilitation facility (12/06/22 1035)} Please page [phone] with questions/concerns for in-house NSGY patients IMAGING: [...] who have questions please contact the health ostomy care nurse that requested your imaging first. Electronically signed by: Elizabeth Fishman MD, [facility] ([phone]), at 11/30/2022 9:[address] Thoracic Spine [...] who have questions please contact the health ostomy care nurse that requested your imaging first. Electronically signed by: Elizabeth Fishman MD, [facility] ([phone]), at 12/01/2022 12:[address] Lumbar Spine [...] who have questions please contact the health ostomy care nurse that requested your imaging first. Electronically signed by: Elizabeth Fishman MD, [facility] ([phone]), at 12/01/2022 12:53 AM MRI Cervical Spine [...] who have questions please contact the health ostomy care nurse that requested your imaging first. Thoracic Spine [...] who have questions please contact the health ostomy care nurse that requested your imaging first. Lumbar Spine [...] who have questions please contact the health ostomy care nurse that requested your imaging first. Chest PA & Lateral (Generic) (Exam End: 12/01/2022 11:48 AM) Impression No acute findings. Thank you for letting us participate in the care of this patient. If you are a health care provider and have any questions regarding this report, please contact the number below. For patients who have questions please contact the health ostomy care nurse that requested your imaging first. Cervical Spine [...] who have questions please contact the health ostomy care nurse that requested your imaging first. CATIONS: Scheduled [...] AM EDT NEUROSURGERY PROGRESS NOTE PLEASE PAGE [phone] WITH QUESTIONS ID: Katheryn Carranza is a [...] -Macrobid x 5d for UTI started 12/04 -PT/OT/CONCRETE VIBRATOR OPERATOR : Anticipated Discharge Disposition (PT): retirement facility, swing bed rehabilitation facility, acute rehabilitation facility (12/06/22 1035)} -DISPOSITION: pending course -FULL CODE Please page [phone] with questions/concerns for in-house NSGY patients IMAGING: [...] who have questions please contact the health ostomy care nurse that requested your imaging first. Electronically signed by: Elizabeth Fishman MD, [facility] ([phone]), at 11/30/2022 9:[address] Thoracic Spine [...] who have questions please contact the health ostomy care nurse that requested your imaging first. Electronically signed by: Elizabeth Fishman MD, [facility] ([phone]), at 12/01/2022 12:[address] Lumbar Spine [...] who have questions please contact the health ostomy care nurse that requested your imaging first. Electronically signed by: Elizabeth Fishman MD, [facility] ([phone]), at 12/01/2022 12:53 AM MRI Cervical Spine [...] who have questions please contact the health ostomy care nurse that requested your imaging first. Thoracic Spine [...] who have questions please contact the health ostomy care nurse that requested your imaging first. Lumbar Spine [...] who have questions please contact the health ostomy care nurse that requested your imaging first. Chest PA & Lateral (Generic) (Exam End: 12/01/2022 11:48 AM) Impression No acute findings. Thank you for letting us participate in the care of this patient. If you are a health care provider and have any questions regarding this report, please contact the number below. For patients who have questions please contact the health ostomy care nurse that requested your imaging first. Cervical Spine [...] who have questions please contact the health ostomy care nurse that requested your imaging first. 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 Time IN / OUT: 4644-9015 Total Minutes, Physical Therapy: 28 Billing Code: 2 GAVIN Dickens DPT Pager: [phone] Physical Therapy Inpatient Rehabilitation Department * Tien Zurita MD - 12/06/2022 7:28 AM EDT NEUROSURGERY PROGRESS NOTE PLEASE PAGE [phone] WITH QUESTIONS ID: Katheryn Carranza is a [...] -Macrobid x 5d for UTI started 12/04 -PT/OT/CONCRETE VIBRATOR OPERATOR : Anticipated Discharge Disposition (PT): retirement facility (12/04/22 1010)} -DISPOSITION: pending course -FULL CODE Please page [phone] with questions/concerns for in-house NSGY patients IMAGING: [...] who have questions please contact the health ostomy care nurse that requested your imaging first. Electronically signed by: Elizabeth Fishman MD, [facility] ([phone]), at 11/30/2022 9:[address] Thoracic Spine [...] who have questions please contact the health ostomy care nurse that requested your imaging first. Electronically signed by: Elizabeth Fishman MD, [facility] ([phone]), at 12/01/2022 12:[address] Lumbar Spine [...] who have questions please contact the health ostomy care nurse that requested your imaging first. Electronically signed by: Elizabeth Fishman MD, [facility] ([phone]), at 12/01/2022 12:53 AM MRI Cervical Spine [...] who have questions please contact the health ostomy care nurse that requested your imaging first. Thoracic Spine [...] who have questions please contact the health ostomy care nurse that requested your imaging first. Lumbar Spine [...] who have questions please contact the health ostomy care nurse that requested your imaging first. Electronically signed by: Funmilayo Marrero, [facility] ([phone]), at 12/01/2022 9:27 AM XR Chest PA & Lateral (Generic) (Exam End: 12/01/2022 11:48 AM) Impression No acute findings. Thank you for letting us participate in the care of this patient. If you are a health care provider and have any questions regarding this report, please contact the number below. For patients who have questions please contact the health ostomy care nurse that requested your imaging first. Cervical Spine [...] who have questions please contact the health ostomy care nurse that requested your imaging first. CATIONS: Scheduled [...] AM EDT NEUROSURGERY PROGRESS NOTE PLEASE PAGE [phone] WITH QUESTIONS ID: Katheryn Carranza is a [...] -Macrobid x 5d for UTI started 12/04 -PT/OT/CONCRETE VIBRATOR OPERATOR : Anticipated Discharge Disposition (PT): retirement facility (12/04/22 1010)} -DISPOSITION: pending course -FULL CODE Please page [phone] with questions/concerns for in-house NSGY patients IMAGING: [...] who have questions please contact the health ostomy care nurse that requested your imaging first. Electronically signed by: Elizabeth Fishman MD, [facility] ([phone]), at 11/30/2022 9:[address] Thoracic Spine [...] who have questions please contact the health ostomy care nurse that requested your imaging first. Electronically signed by: Elizabeth Fishman MD, [facility] ([phone]), at 12/01/2022 12:[address] Lumbar Spine [...] who have questions please contact the health ostomy care nurse that requested your imaging first. Electronically signed by: Elizabeth Fishman MD, [facility] ([phone]), at 12/01/2022 12:53 AM MRI Cervical Spine [...] who have questions please contact the health ostomy care nurse that requested your imaging first. Thoracic Spine [...] who have questions please contact the health ostomy care nurse that requested your imaging first. Lumbar Spine [...] who have questions please contact the health ostomy care nurse that requested your imaging first. Chest PA & Lateral (Generic) (Exam End: 12/01/2022 11:48 AM) Impression No acute findings. Thank you for letting us participate in the care of this patient. If you are a health care provider and have any questions regarding this report, please contact the number below. For patients who have questions please contact the health ostomy care nurse that requested your imaging first. Cervical Spine [...] who have questions please contact the health ostomy care nurse that requested your imaging first. CATIONS: Scheduled [...] aggressive PT/OT and dispo planning. * Lissette Barkley, RN - 12/05/2022 12:31 AM EDT Page Confirmation To Pager number: [phone] From Submitter: Lissette Barkley Urgency Level: Call Me Callback Number: [phone] The following Message was sent: [Call Me] - Callback:[phone] [place], D. c/o headache 10/10, canI give Tylenol [...] 0.3) performed by Tien Zurita MD at [facility] MAIN OR PRO ALLOGRAFT FOR SPINE SURGERY ONLY MORSELIZED N/A 12/02/2022 ALLOGRAFT FOR SPINE SURGERY ONLY; MORSELIZED (WRVU *) performed by Tien Zurita MD at [facility] MAIN OR PRO ARTHRODESIS POSTERIOR/PSTLAT TECH 1 INTERSPACE LUMBAR, EA ADD'L INTERSPACE N/A 12/02/2022 ARTHRODESIS, POSTERIOR VERTEBRAL EA.ADD. SEGMENT (WRVU 6.43) performed by Tien Zurita MD at [facility] MAIN OR PRO ARTHRODESIS, POST/POSTEROLAT TQ, SNGLE INTERSPACE; CERVICAL BELOW C2 SEGMNT N/A 12/02/2022 @ARTHRODESIS, POSTERIOR CERVICAL SPINE (WRVU 17.4) performed by Tien Zurita MD at [facility] MAIN OR PRO AUTOGRAFT SPINE SURGERY LOCAL FROM SAME INCISION N/A 12/02/2022 AUTOGRAFT FOR SPINE SURGERY ONLY, SAME INCISION (WRVU *) performed by Tien Zurita MD at [facility] MAIN OR PRO BREAST REDUCTION 12/09/2011 REDUCTION MAMMOPLASTY, CHRISTIAN performed by DEMETRA SOMMERS at [facility] MAIN OR PRO LAMINEC/FACETECT/FORAMIN, CERVICAL 1 SEG N/A 12/02/2022 LAMINECTOMY, FACETECTOMY & FORAMINOTOMY, CX, ONE LEVEL (WRVU 17.95) performed by Tien Zurita MD at [facility] MAIN OR PRO LAP, DIAGNOSTIC ABDOMEN Left 08/02/2022 LAPAROSCOPY, DIAGNOSTIC, ABDOMEN (WRVU 5.14) performed by Antonio Rojas MD at [facility] MAIN OR PRO POSTERIOR SEGMENTAL INSTRUMENTATION 3-6 VRT SEG N/A 12/02/2022 POST SPINAL INSTRUMENTATION, 3-6 VERTEBRA, NON SEGMENTAL (WRVU 12.56) performed by Tien Zurita MD at [facility] MAIN OR PRO REMOVAL OF OVARY/TUBE(S) Left 08/02/2022 @SALPINGO-OOPHORECTOMY, UNILATERAL OR CHRISTIAN (WRVU 12.16) performed by Antonio Rojas MD at [facility] MAIN OR PRO STEROTACTIC CPTR ASSTD PX SPINAL N/A 12/02/2022 STEREOTACTIC COMPUTER-ASSTD NAVIGATIONAL SPINAL (WRVU 3.75) performed by Tien Zurita MD [facility] UPPER GI ENDOSCOPY, DIAGNOSTIC N/A 08/05/2022 EGD, UPPER GI ENDOSCOPY performed by Donnie Obrien MD at [facility] ENDOSCOPY Social History: Home set-up: Pt lives [...] Fall history: had a 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 [...] outlined inthis evaluation. Time IN / OUT: 3720-0117 Total Minutes, Physical Therapy: 20 Billing Code: mod complexity eval Fifi Park, PT Pager: [phone] Physical Therapy Inpatient Rehabilitation Department * Jackie Pagan MD - 12/04/2022 6:14 AM EDT NEUROSURGERY PROGRESS NOTE PLEASE PAGE [phone] WITH QUESTIONS ID: Katheryn Carranza is a [...] POD1 -activity as tolerated. -Monitor MANAN output -PT/OT/CONCRETE VIBRATOR OPERATOR : } -DISPOSITION: pending course -FULL CODE Please page [phone] with questions/concerns for in-house NSGY patients IMAGING: [...] who have questions please contact the health ostomy care nurse that requested your imaging first. Electronically signed by: Elizabeth Fishman MD, [facility] ([phone]), at 11/30/2022 9:[address] Thoracic Spine [...] who have questions please contact the health ostomy care nurse that requested your imaging first. Electronically signed by: Elizabeth Fishman MD, [facility] ([phone]), at 12/01/2022 12:[address] Lumbar Spine [...] who have questions please contact the health ostomy care nurse that requested your imaging first. Electronically signed by: Elizabeth Fishman MD, [facility] ([phone]), at 12/01/2022 12:53 AM MRI Cervical Spine [...] who have questions please contact the health ostomy care nurse that requested your imaging first. Thoracic Spine [...] who have questions please contact the health ostomy care nurse that requested your imaging first. Lumbar Spine [...] who have questions please contact the health ostomy care nurse that requested your imaging first. Chest PA & Lateral (Generic) (Exam End: 12/01/2022 11:48 AM) Impression No acute findings. Thank you for letting us participate in the care of this patient. If you are a health care provider and have any questions regarding this report, please contact the number below. For patients who have questions please contact the health ostomy care nurse that requested your imaging first. Cervical Spine [...] who have questions please contact the health ostomy care nurse that requested your imaging first. CATIONS: Scheduled [...] Humphrey MSW - 12/03/2022 2:21 PM EDT MOP MACHINE OPERATOR received a consult to support patient who has no health insurance. MOP MACHINE OPERATOR met with patient who states she was at [facility] in July 2022 and [employer] helped her to apply for [place] Medicaid, but she was over-incomed and denied. She now has $50k+ in medical bills at [facility] in addition to medical bills from [facility]. She would like to apply for [place] Medicaid again doing a ???spenddown?? and complete a [facility] Financial Assistance Application to help with these past due bills. A referral has been sent to [employer]org[employer] Membreno to follow up with this need/request. Ashley BAKER CM and CM Managers informed. * Jackie Pagan MD - 12/03/2022 9:28 AM EDT NEUROSURGERY PROGRESS NOTE PLEASE PAGE [phone] WITH QUESTIONS ID: Katheryn Carranza is a [...] tolerated. -Monitor MANAN output -Remove fournier, DTV -PT/OT/CONCRETE VIBRATOR OPERATOR : } -DISPOSITION: pending course -FULL CODE Please page [phone] with questions/concerns for in-house NSGY patients IMAGING: [...] who have questions please contact the health ostomy care nurse that requested your imaging first. Electronically signed by: Elizabeth Fishman MD, [facility] ([phone]), at 11/30/2022 9:[address] Thoracic Spine [...] who have questions please contact the health ostomy care nurse that requested your imaging first. Electronically signed by: Elizabeth Fishman MD, [facility] ([phone]), at 12/01/2022 12:[address] Lumbar Spine [...] who have questions please contact the health ostomy care nurse that requested your imaging first. Electronically signed by: Elizabeth Fishman MD, [facility] ([phone]), at 12/01/2022 12:53 AM MRI Cervical Spine [...] who have questions please contact the health ostomy care nurse that requested your imaging first. Thoracic Spine [...] who have questions please contact the health ostomy care nurse that requested your imaging first. Lumbar Spine [...] who have questions please contact the health ostomy care nurse that requested your imaging first. Chest PA & Lateral (Generic) (Exam End: 12/01/2022 11:48 AM) Impression No acute findings. Thank you for letting us participate in the care of this patient. If you are a health care provider and have any questions regarding this report, please contact the number below. For patients who have questions please contact the health ostomy care nurse that requested your imaging first. CATIONS: Scheduled [...] PM EDT NEUROSURGERY PROGRESS NOTE PLEASE PAGE [phone] WITH QUESTIONS ID: Katheryn Carranza is a [...] antiplatelet -activity as tolerated. -Monitor MANAN output -PT/OT/CONCRETE VIBRATOR OPERATOR : } -DISPOSITION: pending course -FULL CODE Please page [phone] with questions/concerns for in-house NSGY patients IMAGING: [...] who have questions please contact the health ostomy care nurse that requested your imaging first. Electronically signed by: Elizabeth Fishman MD, [facility] ([phone]), at 11/30/2022 9:[address] Thoracic Spine [...] who have questions please contact the health ostomy care nurse that requested your imaging first. Electronically signed by: Elizabeth Fishman MD, [facility] ([phone]), at 12/01/2022 12:[address] Lumbar Spine [...] who have questions please contact the health ostomy care nurse that requested your imaging first. Electronically signed by: Elizabeth Fishman MD, [facility] ([phone]), at 12/01/2022 12:53 AM MRI Cervical Spine [...] who have questions please contact the health ostomy care nurse that requested your imaging first. Thoracic Spine [...] who have questions please contact the health ostomy care nurse that requested your imaging first. Lumbar Spine [...] who have questions please contact the health ostomy care nurse that requested your imaging first. Chest PA & Lateral (Generic) (Exam End: 12/01/2022 11:48 AM) Impression No acute findings. Thank you for letting us participate in the care of this patient. If you are a health care provider and have any questions regarding this report, please contact the number below. For patients who have questions please contact the health ostomy care nurse that requested your imaging first. CATIONS: Scheduled [...] Humphrey MSW - 12/02/2022 9:03 AM EDT MOP MACHINE OPERATOR received a consult to support patient in completing a [place] Advance Directive. Patient already hasan advance directive in place. No referral made. * Amada Booker MD - 12/02/2022 6:33 AM EDT NEUROSURGERY PROGRESS NOTE PLEASE PAGE [phone] WITH QUESTIONS ID: Katheryn Carranza is a [...] -hold anticoagulation and antiplatelet -activity as tolerated. -PT/OT/CONCRETE VIBRATOR OPERATOR : } -DISPOSITION: pending course -FULL CODE Please page [phone] with questions/concerns for in-house NSGY patients IMAGING: [...] who have questions please contact the health ostomy care nurse that requested your imaging first. Electronically signed by: Elizabeth Fishman MD, [facility] ([phone]), at 11/30/2022 9:[address] Thoracic Spine [...] who have questions please contact the health ostomy care nurse that requested your imaging first. Electronically signed by: Elizabeth Fishman MD, [facility] ([phone]), at 12/01/2022 12:[address] Lumbar Spine [...] who have questions please contact the health ostomy care nurse that requested your imaging first. Electronically signed by: Elizabeth Fishman MD, [facility] ([phone]), at 12/01/2022 12:53 AM MRI Cervical Spine [...] who have questions please contact the health ostomy care nurse that requested your imaging first. Thoracic Spine [...] who have questions please contact the health ostomy care nurse that requested your imaging first. Lumbar Spine [...] who have questions please contact the health ostomy care nurse that requested your imaging first. Chest PA & Lateral (Generic) (Exam End: 12/01/2022 11:48 AM) Impression No acute findings. Thank you for letting us participate in the care of this patient. If you are a health care provider and have any questions regarding this report, please contact the number below. For patients who have questions please contact the health ostomy care nurse that requested your imaging first. CATIONS: Scheduled [...] - 12/01/2022 4:52 PM EDT Provider paged [phone] Dillon would like to talk c provider c test results/plans for surgery * Amada Booker MD - 12/01/2022 6:40 AM EDT NEUROSURGERY PROGRESS NOTE PLEASE PAGE [phone] WITH QUESTIONS ID: Katheryn Carranza is a [...] -hold anticoagulation and antiplatelet -activity as tolerated. -PT/OT/CONCRETE VIBRATOR OPERATOR : } -DISPOSITION: pending course -FULL CODE Please page [phone] with questions/concerns for in-house NSGY patients IMAGING: [...] who have questions please contact the health ostomy care nurse that requested your imaging first. Electronically signed by: Elizabeth Fishman MD, [facility] ([phone]), at 11/30/2022 9:[address] Thoracic Spine [...] who have questions please contact the health ostomy care nurse that requested your imaging first. Electronically signed by: Elizabeth Fishman MD, [facility] ([phone]), at 12/01/2022 12:[address] Lumbar Spine [...] who have questions please contact the health ostomy care nurse that requested your imaging first. Electronically signed by: Elizabeth Fishman MD, [facility] ([phone]), at 12/01/2022 12:53 AM MRI Cervical Spine [...] who have questions please contact the health ostomy care nurse that requested your imaging first. Electronically signed by: Funmilayo Marrero, [facility] ([phone]), at 12/01/2022 9:27 AM MRI Thoracic Spine [...] who have questions please contact the health ostomy care nurse that requested your imaging first. Lumbar Spine [...] who have questions please contact the health ostomy care nurse that requested your imaging first. CATIONS: Scheduled [...] Booker MD - 12/02/2022 10:30 AM EDT [facility] NEUROSURGERY Admission H&P Update Please see NSGY consult note from 11/30/22 for further details on this admission. documented in this encounter Procedure Notes * Sudeep Womack MD - 12/06/2022 9:57 AM EDT MANAN Removal Procedure: Patient is seen in bed in [facility] without change in neuro exam from earlier. MANAN with minimal output. Discussed with attending, agreed to remove the drain. Dressing was removed. The drain was taken off suction. The area around the tubing's entry site was cleaned with ChloraPrep. The tack-up suture was removed. The drain was carefully extracted. The entry site was closed with 4-0 monocryl suture in a [id number] fashion. This was done with the usual sterile technique. Dressing was placed. Patient tolerated the procedure well without any complications. Plan: See today's progress note * Usha Taylor MD - 12/02/2022 3:49 PM EDT NEURODIAGNOSTIC LABORATORY [facility] INTRAOPERATIVE MONITORING REPORT Name: Katheryn Carranza : [...] ipsilateral first dorsalinterosseous pickup, respectively. CPT Codes: 08391 (EEG); 38474 (EMG four limbs); 12086 (TOF, 4 nerves); 21029 (upper & lower MEP); 19303 (upper and lower SSEP bilateral); 86951 (IOM, 2 units); 08283 (IOM, 2 units). Total IOM time: 2 [...] Team: Usha Taylor MD; Elio Flores PhD, [facility]. Anesthesia: Propofol/schuyler Report: Following anesthesia and prior [...] relaxant reversal. We were able to get [id number]-[id number]-dvdc on all four nerves. tcMEP were stable. [...] who have questions please contact the health ostomy care nurse that requested your imaging first. Electronically signed by: Elizabeth Fishman MD, [facility] ([phone]), at 11/30/2022 9:36 PM Procedures Assessment and [...] final neurosurgery recommendations. Leopoldo Power MD Resident 11/30/225 Associated attestation - Calista Barrera MD - [...] Patient is medically ready for discharge to [facility]. Needs for Transition of Care: Plan for discharge is: Pending Hospital Course and PT/OT Recommendations Outpatient Agency/Support Group Needs: None Agency Referrals & Follow-up Care: Contact information for follow-up [facility], [facility] [address] [place] [address] [facility] [id number] Transportation: ambulance requested noon, not confirmed yet. [...] none Patient is insured through: Primary Insurance: [place] Pay[place] / Plan[place] / Product Type: *No Product type* / Secondary Insurance: N/A Prescription Coverage: (Unable to assess) This plan was formulated with input from patient, -Prieto (please identify family/friend involved if applicable) and team. All are in agreement with plan. Ashley Kwon MSN, RN Pager #[phone] * Plan of Care - Cindy Morejon RN - 12/16/2022 4:54 AM EDT OUTCOME EVALUATION NOTE: OUTCOME SUMMARY: Patient is alert & oriented x4, no changes neurologically. VSS, on RA, afebrile. Parminder to posterior neck incision intact/approximated. Reports severe [...] OUTCOME SUMMARY: Pt A&O, cont with pain /, muscle tightness at times. PRN given x2. [...] water. Pain managed per AUG. 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 Voids CYU in commode at bedside. Good [...] Secondary Insurance: N/A Last Physical Therapy Recommendation: retirement facility, swing bed rehabilitation facility with to be determined Last Occupational Therapy Recommendation: retirement facility with to be determined Plan for [...] we do not have a card yet. MOP MACHINE OPERATOR has assisted pt's to apply for LTC RADHA. Care Management will continue to follow and assist with discharge planning and coordination of care as indicated. Anticipated Date of Discharge: 12/13/2022 Ashley SHEA, RN Pager #[phone] * Plan of Care - Cristina Gan [...] 0.3) performed by Tien Zurita MD at [facility] MAIN OR PRO ALLOGRAFT FOR SPINE SURGERY ONLY MORSELIZED N/A 12/02/2022 ALLOGRAFT FOR SPINE SURGERY ONLY; MORSELIZED (WRVU *) performed by Tien Zurita MD at [facility] MAIN OR PRO ARTHRODESIS POSTERIOR/PSTLAT TECH 1 INTERSPACE LUMBAR, EA ADD'L INTERSPACE N/A 12/02/2022 ARTHRODESIS, POSTERIOR VERTEBRAL EA.ADD. SEGMENT (WRVU 6.43) performed by Tien Zurita MD at [facility] MAIN OR PRO ARTHRODESIS, POST/POSTEROLAT TQ, SNGLE INTERSPACE; CERVICAL BELOW C2 SEGMNT N/A 12/02/2022 @ARTHRODESIS, POSTERIOR CERVICAL SPINE (WRVU 17.4) performed by Tien Zurita MD at [facility] OR PRO AUTOGRAFT SPINE SURGERY LOCAL FROM SAME INCISION N/A 12/02/2022 AUTOGRAFT FOR SPINE SURGERY ONLY, SAME INCISION (WRVU *) performed by Tien Zurita MD at [facility] MAIN OR PRO BREAST REDUCTION 12/09/2011 REDUCTION MAMMOPLASTY, CHRISTIAN performed by DEMETRA SOMMERS at [facility] MAIN OR PRO LAMINEC/FACETECT/FORAMIN, CERVICAL 1 SEG N/A 12/02/2022 LAMINECTOMY, FACETECTOMY & FORAMINOTOMY, CX, ONE LEVEL (WRVU 17.95) performed by Tien Zurita MD at [facility] MAIN OR PRO LAP, DIAGNOSTIC ABDOMEN Left 08/02/2022 LAPAROSCOPY, DIAGNOSTIC, ABDOMEN (WRVU 5.14) performed by Antonio Rojas MD at [facility] MAIN OR PRO POSTERIOR SEGMENTAL INSTRUMENTATION 3-6 VRT SEG N/A 12/02/2022 POST SPINAL INSTRUMENTATION, 3-6 VERTEBRA, NON SEGMENTAL (WRVU 12.56) performed by Tien Zurita MD at [facility] MAIN OR PRO REMOVAL OF OVARY/TUBE(S) Left 08/02/2022 @SALPINGO-OOPHORECTOMY, UNILATERAL OR CHRISTIAN (WRVU 12.16) performed by Antonio Rojas MD at [facility] MAIN OR PRO STEROTACTIC CPTR ASSTD PX SPINAL N/A 12/02/2022 STEREOTACTIC COMPUTER-ASSTD NAVIGATIONAL SPINAL (WRVU 3.75) performed by Tien Zurita MD [facility] PRO UPPER GI ENDOSCOPY, DIAGNOSTIC N/A 08/05/2022 EGD, UPPER GI ENDOSCOPY performed by Donnie Obrien MD at [facility] ENDOSCOPY Social History: Patient lives with her [...] and measurable assessment of functional outcome. Pager: [phone] Ayana Byrd OT 12/04/2022 Occupational Therapy Rehabilitation [...] of Discharge: 12/08/2022 Ashley SHEA, RN Pager #[phone] * Plan of Care - Mayuri Patel [...] medicine, unable to afford (TBD) Current DME: [facility] Home Address listed as: [address] [place] [phone] Social & Family Supports: All names listed below confirmed with patient as current and correct Extended Emergency Contact Information Primary Emergency Contact: Prieto Carranza Address: [address] [place] [phone] [facility] Mobile Relation: Spouse Secondary Emergency Contact: Razia Carrazna [place], [place] [id number] [place] [address] Mobile Relation: Child Current Care Provided by: [...] Prescription Coverage: (Unable to assess) Preferred Pharmacy: [id number] - [place], [place] - [address] [facility] [address] [place] [id number] Status: Patient is a : Primary Care Provider listed: Lena Womcak, [employer] [phone] Patient/Caregiver Goals of Treatment: TBD pending hospital course and rehab evals. Potential Needs for Transition of Care: home health care, durable medical equipment Agency Referrals: Not Applicable Transportation: no concerns Transportation Anticipated: family or friend will provide Concerns to be Addressed: adjustment to diagnosis/illness, patient care technician support, discharge planning, uninsured, substance/tobacco abuse/use, medication Assessment: Patient is admitted to Neurosurg service for cervical myelopathy in setting of fall with increased symptoms. Plan: TBD pending hospital course and rehab evals post op. A member of the Care Management team will continue to monitor progress, follow for continuity of care and assist with transition of care planning. Ashley Kwon MSN, RN Pager #[phone] * Op Note - Tien Zurita MD - 12/02/2022 1:27 PM EDT [facility] Operative Note Patient Name: Katheryn Carranza : [id number] MR#: [id number] Case Date: 12/02/2022 Surgeon: Surgeon(s) and Role: [...] 4. Local autograft and morselized allograft CPT: 68737 fusion single level +89279 x 4 for each additional fusion level 46768-65 Cervical Laminectomy/Facetectomy single level +82876 x2 Cervical laminectomy/facetectomy each additional level +71343 Instrument 3-6 Level, +32968 navigation +17975 autograft + allograft Findings: Calcified ligamentum flavum at C6-7, severe stenosis at C4-5 Anesthesia: General Estimated Blood Loss: 200 mL Specimens removed during surgery: None Drains: #15 round Latvian Surgical Closure: Primary Closure - skin incision [...] and transverse processes of T1 and T2. Business Partner holes for lateral mass screws bilaterally from C4 - C6 was performed with an initial 2mm cutting miguel for opening the cortex in the standard Magerl entry point, and then using the CD4 hand-heldpower drill, 14mm depth airplane pilot photogrammetry holes were placed using standard Magerl technique. The airplane pilot photogrammetry holes were palpated using a fine ball-tipped probe and subsequently tapped. Lateral mass screws were left out at this time. The O-arm was then brought into the field for acquisition of stereotactic guidance for placement of T1 and T2 pedicle screws. Then with the [employer] S8 spinal navigation, bilateral pedicle screws were [...] for the entire procedure. Tien Zurita MD Metal Furniture Assembler Section of Neurosurgery Department of Surgery [facility] * Plan of Care - Mayuri Patel [...] documented. * Consult Note - Rosaura James [facility] - 12/01/2022 3:49 PM EDT TelePharmacy Home [...] MAMMOPLASTY, CHRISTIAN performed by DEMETRA SOMMERS at [facility] MAIN OR PRO LAP, DIAGNOSTIC ABDOMEN Left 08/02/2022 LAPAROSCOPY, DIAGNOSTIC, ABDOMEN (WRVU 5.14) performed by Antonio Rojas MD at [facility] MAIN OR PRO REMOVAL OF OVARY/TUBE(S) Left 08/02/2022 @SALPINGO-OOPHORECTOMY, UNILATERAL OR CHRISTIAN (WRVU 12.16) performed by Antonio Rojas MD at [facility] MAIN OR PRO UPPER GI ENDOSCOPY, DIAGNOSTIC N/A 08/05/2022 EGD, UPPER GI ENDOSCOPY performed by Donnie Obrien MD at [facility] ENDOSCOPY Allergies Allergen Reactions Allergenic Extracts Pollen [...] optimally treated, with possible referral to a sales support engineer for further evaluation: High Risk Patients [] Recent [place] or unstable angina [] Decompensated heart failure [...] Consider Stress Testing if it would exchange clerk or would be done otherwise PULMONARY RISK [...] risk surgery (6% 30 day mortality , [place] or cardiac arrest). Tolerated anesthesia in August [...] MAMMOPLASTY, CHRISTIAN performed by DEMETRA SOMMERS at [facility] MAIN OR PRO LAP, DIAGNOSTIC ABDOMEN Left 08/02/2022 LAPAROSCOPY, DIAGNOSTIC, ABDOMEN (WRVU 5.14) performed by Antonio Rojas MD at [facility] MAIN OR PRO REMOVAL OF OVARY/TUBE(S) Left 08/02/2022 @SALPINGO-OOPHORECTOMY, UNILATERAL OR CHRISTIAN (WRVU 12.16) performed by Antonio Rojas MD at [facility] MAIN OR PRO UPPER GI ENDOSCOPY, DIAGNOSTIC N/A 08/05/2022 EGD, UPPER GI ENDOSCOPY performed by Donnie Obrien MD at [facility] ENDOSCOPY Medications: No current facility-administered medications on [...] file Vitals: Vitals: 11/30/22 1941 11/30/22 1944 11/30/222123 BP: 128/78 115/66 BP Location (NBP): Right [...] who have questions please contact the health ostomy care nurse that requested your imaging first. Electronically signed by: Elizabeth Fishman MD, [facility] ([phone]), at 11/30/2022 9:36 PM Assessment: This is [...] the assessment and plan. Please page [phone] [phone] if questions Giovanna Mckeon APRN Neurosurgery * [...] Up To 1 Hr Phy Or Oth th Care Prov (23628) Yes 12/02/2022 12:11 PM EDT Stenosis of cervical spine with myelopathy MODIFIER,POSTERIOR CERVICAL INFINITY MEDTRONIC Yes 12/02/2022 12:11 PM EDT Stenosis of cervical spine with myelopathy Sterotactic Cptr Asstd Px Spinal (98113) Yes 12/02/2022 12:11 PM EDT Stenosis of cervical spine with myelopathy Allograft For Spine Surgery Only Morselized () Yes 12/02/2022 12:11 PM EDT Stenosis of cervical spine with myelopathy Autograft Spine Surgery Local From Same Incision () Yes 12/02/2022 12:11 PM EDT Stenosis of cervical spine with myelopathy Posterior Segmental Instrumentation 3-6 Vrt Seg (63941) Yes 12/02/2022 12:11 PM EDT Stenosis of cervical spine with myelopathy Laminec/Facetect/Forami n, Cervical 1 Seg (63468) Yes 12/02/2022 12:11 PM EDT Stenosis of cervical spine with myelopathy Arthrodesis Posterior/Pstlat Technique 1 Interspace Lumbar, Ea Add'L Interspace (98180) Yes 12/02/2022 12:11 PM EDT Stenosis of cervical spine with myelopathy Arthrodesis, Post/Posterolat Tq, Sngle Interspace; Cervical Below C2 Segmnt (18685) Yes 12/02/2022 12:11 PM EDT Stenosis of [...] who have questions please contact the health ostomy care nurse that requested your imaging first. ? Electronically signed by: Svetlana Wellington MD, [facility] ([phone]), at 01/17/2023 2:21 PM Narrative 01/17/2023 2:21 [...] and thoracic inlet is normal. Procedure Note Svetlnaa Wellington MD - 01/17/2023 EXAMINATION: XR CERVICAL [...] patients who have questions please contactthe health ostomy care nurse that requested your imaging first. Electronically signed by: Svetlana Wellington MD, [facility]([phone]), at 01/17/2023 2:21 PM Chauhan A Echt IMG DX ORDERABLES * (ABNORMAL) Urine culture (12/04/2022 3:08 PM EDT) Urine Culture Greater than 100,000 cfu/ml Enterobacter cloacae complex(A) [facility] Organism Enterobacter cloacae complex(A) [facility] Clean Catch Urine 12/04/2022 3:08 [...] Womack MD MICROBIOLOGY - GENER AL ORDERABLES [facility] [place] [address] * (ABNORMAL) Urinalysis Microscopic Exam (12/04/2022 3:08 PM EDT) RBC, Urine 1 0 - 4 /HPF [facility] WBC, Urine 3 0 - 5 /HPF [facility] Bacteria, Urine Many(A) None /HPF [facility] Squamous Epithelial Cells Raw Data, Urine 1 <=4 /HPF [facility] Clean Catch Urine 12/04/2022 3:08 PM EDT 12/04/2022 3:32 PM EDT Narrative Resulting Agency Comment Spec In Lab Sudeep Womack MD URINE ORDERABLES Performing Organization Address [facility] Co de Phone Number [facility] [place] [address] * (ABNORMAL) Urinalysis with reflex Culture (12/04/2022 3:08 PM EDT) Glucose, Urine Dipstick Negative Negative mg/dL [facility] Protein, Urine Dipstick Negative Negative mg/dL [facility] Bilirubin, Urine Dipstick Negative Negative mg/dL [facility] Comment: Clinical correlation required for positive Urine Bilirubin results as false positive may occur with some drugs and drug related products. If a false positive is suspected a serum total bilirubin should be considered if clinically indicated. Urobilinogen, Urine Dipstick Normal Normal mg/dL [facility] pH, Urn (dipstick) 7.0 5.0 - 8.0 [facility] Blood, Urine Dipstick Negative Negative mg/dL [facility] Ketone, Urine Dipstick Negative Negative mg/dL [facility] Nitrite, Urine Dipstick Positive(A) Negative [facility] Leukocytes, Urine Dipstick Moderate(A) Negative mcL [facility] Appearance, Urine Dipstick Clear Clear [facility] Specific [place] Urine Automated 1.007 1.005 - 1.030 [facility] Color, Urine Dipstick Yellow Yellow [facility] Reflex to Culture Yes [facility] Clean Catch Urine 12/04/2022 3:08 PM EDT 12/04/2022 3:32 PM EDT Narrative Resulting Agency Comment Spec In Lab Tien Zurita MD URINE ORDERABLES Performing Organization Address [facility] Co de Phone Number [facility] [place] [address] * (ABNORMAL) Differential, Automated (12/04/2022 6:25 AM EDT) Neutrophil % 50.8 % [facility] Neutrophil Absolute 4.67 1.70 - 6.10 x10(3)/ L [facility] Lymph % 36.4 % [facility] Lymphocytes Abs 3.4(H) 0.9 - 3.2 x10(3)/mc L [facility] Monocyte % 9.2 % [facility] Monocyte Abs 0.8 0.3 - 0.9 x10(3)/ L [facility] Eos % 2.9 % [facility] Eosinophils Abs 0.3 0.0 - 0.4 x10(3)/[facility] Basophil % 0.3 % [facility] Baso Absolute 0.0 0.0 - 0.1 x10(3)/ L [facility] Immature Gran % 0.40 % [facility] Comment: Immature granulocytes(IG's)percentage and absolute count will include metamyelocytes, myelocytes, and promyelocytes. Blood smears from CBCs yielding IG's will be scanned manually for concordance. If this scan disagrees with the automated IG or if promyelocytes are noted, a manual differential will be performed. Immature Gran Absolute 0.04 0.00 - 0.04 x10(3)/ L [facility] Blood 12/04/2022 6:25 AM EDT 12/04/2022 6:50 AM EDT Narrative Resulting Agency Comment Spec In Lab Louie Rosario MD HEMATOLOGY ORDERABLE S [facility] [place] [address] * (ABNORMAL) Hemogram (12/04/2022 6:25 AM EDT) Pathologist [facility] White Blood Cell 9.2 4.0 - 9.5 x10(3)/ L [facility] Red Blood Cell 3.64(L) 4.00 - 5.21 x10(6)/[facility] Hemoglobin 11.7 11.7 - 15.5 g/dL [facility] Hematocrit 33.7(L) 35.7 - 45.8 % [facility] Mean Cell Volume 92.6 82.6 - 94.4 fL [facility] Mean Cell Hemoglobin 32.1(H) 27.1 - 32.0 pg [facility] Mean Cell Hemoglobin Concentration 34.7 31.7 - 35.0 g/dL [facility] Platelet 251 145 - 357 x10(3)/mc L [facility] RDW Standard Deviation 41.7 37.0 - 46.0 fL [facility] RDW coefficient of variation 12.3 11.5 - 14.1 % [facility] Mean Platelet Volume 9.0 7.6 - 12.9 fL [facility] NRBC% auto 0.0 % [facility] NRBC Absolute 0.000 0.000 - 0.000 x10(3)/ L [facility] Blood 12/04/2022 6:25 AM EDT 12/04/2022 6:50 AM EDT Narrative Resulting Agency Comment Spec In Lab Louie Rosario MD HEMATOLOGY ORDERABLE S [facility] [place] [address] * Basic Metabolic Panel (non-fasting) (12/04/2022 6:25 AM EDT) Glucose 117 65 - 199 mg/dL [facility] Comment:Diabetes: >=200 mg/d L plus symptoms Blood Urea Nitrogen 8 8 - 18 mg/dL [facility] Creatinine 0.76 0.70 - 1.20 mg/dL [facility] Sodium 138 135 - 145 mmol/L [facility] Potassium 3.5 3.5 - 5.0 mmol/L [facility] Comment: Please note: ??Patients with WBC >100,000 may have falsely elevated Potassium levels. ??For accurate Potassium quantification in these patients send serum separator tube (gold top) for subsequent determinations. ??Contact the Clinical Chemistry Laboratory if there are any questions. Chloride 101 98 - 107 mmol/L [facility] Carbon Dioxide 27 22 - 31 mmol/L [facility] Anion Gap 10 5 - 15 mmol/L [facility] Calcium 9.3 8.5 - 10.5 mg/dL [facility] Est Glomerular Filtration Rate 89 >=60 mL/min/1. 73 m?? [facility] Comment: This patient's estimated GFR was [...] Agency Comment Spec In Lab Chauhan A Yudith AKBAR CHEMISTRY ORDERABLES [facility] [place] [address] * XR Cervical Spine 2 or 3 [...] who have questions please contact the health ostomy care nurse that requested your imaging first. ? Narrative [...] patients who have questions please contactthe health ostomy care nurse that requested your imaging first. Chauhan A Echt IMG DX ORDERABLES * (ABNORMAL) Differential, Automated (12/03/2022 8:36 AM EDT) Neutrophil % 70.2 % [facility] Neutrophil Absolute 7.83(H) 1.70 - 6.10 x10(3)/mc L [facility] Lymph % 20.2 % [facility] [place] [facility] Lymphocytes Abs 2.2 0.9 - 3.2 x10(3)/mc L [facility] Monocyte % 8.6 % [facility] Monocyte Abs 1.0(H) 0.3 - 0.9 x10(3)/mc L [facility] Eos % 0.4 % [facility] [place] Eosinophils Abs 0.0 0.0 - 0.4 x10(3)/ L [facility] Basophil % 0.2 % [facility] Baso Absolute 0.0 0.0 - 0.1 x10(3)/ L [facility] Immature Gran % 0.40 % [facility] Comment: Immature granulocytes(IG's)percentage and absolute count will include metamyelocytes, myelocytes, and promyelocytes. Blood smears from CBCs yielding IG's will be scanned manually for concordance. If this scan disagrees with the automated IG or if promyelocytes are noted, a manual differential will be performed. Immature Gran Absolute 0.05(H) 0.00 - 0.04 x10(3)/ L [facility] Blood 12/03/2022 8:36 AM EDT 12/03/2022 8:57 AM EDT Narrative Resulting Agency Comment Spec In Lab Louie Rosario MD HEMATOLOGY ORDERABLE S [facility] [place] [address] * (ABNORMAL) Hemogram (12/03/2022 8:36 AM EDT) White Blood Cell 11.2(H) 4.0 - 9.5 x10(3)/mc L [facility] Red Blood Cell 3.75(L) 4.00 - 5.21 x10(6)/mc L [facility] Hemoglobin 12.1 11.7 - 15.5 g/dL [facility] Hematocrit 34.7(L) 35.7 - 45.8 % [facility] Mean Cell Volume 92.5 82.6 - 94.4 fL [facility] Mean Cell Hemoglobin 32.3(H) 27.1 - 32.0 pg [facility] Mean Cell Hemoglobin Concentration 34.9 31.7 - 35.0 g/dL [facility] Platelet 266 145 - 357 x10(3)/mc L [facility] RDW Standard Deviation 42.1 37.0 - 46.0 fL [facility] RDW coefficient of variation 12.5 11.5 - 14.1 % [facility] Mean Platelet Volume 9.3 7.6 - 12.9 fL [facility] NRBC% auto 0.0 % [facility] NRBC Absolute 0.000 0.000 - 0.000 x10(3)/mc L [facility] Blood 12/03/2022 8:36 AM EDT 12/03/2022 8:57 AM EDT Narrative Resulting Agency Comment Spec In Lab Louie Rosario MD HEMATOLOGY ORDERABLE S [facility] [place] [address] * (ABNORMAL) Basic Metabolic Panel (non-fasting) (12/03/2022 8:36 AM EDT) Glucose 125 65 - 199 mg/dL [facility] Comment:Diabetes: >=200 mg/d L plus symptoms Blood Urea Nitrogen 6(L) 8 - 18 mg/dL [facility] Creatinine 0.62(L) 0.70 - 1.20 mg/dL [facility] Sodium 139 135 - 145 mmol/L [facility] Potassium 4.0 3.5 - 5.0 mmol/L [facility] Comment: Please note: ??Patients with WBC >100,000 may have falsely elevated Potassium levels. ??For accurate Potassium quantification in these patients send serum separator tube (gold top) for subsequent determinations. ??Contact the Clinical Chemistry Laboratory if there are any questions. Chloride 102 98 - 107 mmol/L [facility] Carbon Dioxide 24 22 - 31 mmol/L [facility] Anion Gap 13 5 - 15 mmol/L [facility] Calcium 9.5 8.5 - 10.5 mg/dL [facility] Est Glomerular Filtration Rate 101 >=60 mL/min/1. 73 m?? [facility] Comment: This patient's estimated GFR was [...] Zurita MD CHEMISTRY ORDERABLES Performing Organization Address [facility] Co de Phone Number [facility] [place] [address] * EKG 12 Lead (12/02/2022 9:02 PM EDT) Ventricular rate 92 BPM MUSE SYSTEM Atrial Rate 92 BPM MUSE SYSTEM P-R Interval 200 ms MUSE SYSTEM QRS Duration 112 ms MUSE SYSTEM Q-T Interval 378 ms MUSE SYSTEM QTC Calculated (Bezet) 467 ms MUSE SYSTEM Calculated P Painter 52 degrees MUSE SYSTEM Calculated R Painter 88 degrees MUSE SYSTEM Calculated T Painter 78 degrees MUSE SYSTEM INTERPRETATION Normal sinus rhythm T wave abnormality, consider anterior ischemia Abnormal ECG When compared with ECG of 01-DEC-2022 11:15, No significant change was found Confirmed by MD Neetu, Mark Lopez ([id number]) on 12/03/2022 3:28:25 PM MUSE SYSTEM 12/02/2022 9:02 PM EDT 12/03/2022 3:28 PM EDT Tien Zurita MD ECG ORDERABLES Performing Organization Address City/[facility]/ZIP Co de Phone Number MUSE SYSTEM * XR Fluoro No Rad <1Hr - OR Use (12/02/2022 4:07 PM EDT) Narrative Dicom, Auditing User - 12/02/2022 4:07 PM EDT This exam is auto-finalizing. No interpretation was done. Tien Zurita MD IMG FLUORO ORDERABLE S * XR O-Arm No Rad <1Hr - OR Use (12/02/2022 4:06 PM EDT) Narrative Dicom, Auditing User - 12/02/2022 4:07 PM EDT This exam is auto-finalizing. No interpretation was done. Chauhan Mishel Echt MD [place] FLUORO ORDERABLE S * Differential, Automated (12/02/2022 6:59 AM EDT) Neutrophil % 67.4 % [facility] Neutrophil Absolute 4.99 1.70 - 6.10 x10(3)/[facility] Lymph % 22.4 % [facility] [place] [facility] Lymphocytes Abs 1.7 0.9 - 3.2 x10(3)/[facility] Monocyte % 7.0 % [facility] Monocyte Abs 0.5 0.3 - 0.9 x10(3)/[facility] Eos % 2.6 % [facility] Eosinophils Abs 0.2 0.0 - 0.4 x10(3)/[facility] Basophil % 0.1 % [facility] Baso Absolute 0.0 0.0 - 0.1 x10(3)/[facility] Immature Gran % 0.50 % [facility] Comment: Immature granulocytes(IG's)percentage and absolute count will include metamyelocytes, myelocytes, and promyelocytes. Blood smears from CBCs yielding IG's will be scanned manually for concordance. If this scan disagrees with the automated IG or if promyelocytes are noted, a manual differential will be performed. Immature Gran Absolute 0.04 0.00 - 0.04 x10(3)/[facility] Blood 12/02/2022 6:59 AM EDT 12/02/2022 7:19 AM EDT Narrative Resulting Agency Comment Spec In Lab Giovanna Mckeon APRN HEMATOLOGY ORDERA BLES [facility] [place] [address] * (ABNORMAL) Hemogram (12/02/2022 6:59 AM EDT) White Blood Cell 7.4 4.0 - 9.5 x10(3)/mc L [facility] Red Blood Cell 3.92(L) 4.00 - 5.21 x10(6)/mc L [facility] Hemoglobin 12.7 11.7 - 15.5 g/dL [facility] Hematocrit 37.4 35.7 - 45.8 % [facility] Mean Cell Volume 95.4(H) 82.6 - 94.4 fL [facility] Mean Cell Hemoglobin 32.4(H) 27.1 - 32.0 pg [facility] Mean Cell Hemoglobin Concentration 34.0 31.7 - 35.0 g/dL [facility] Platelet 243 145 - 357 x10(3)/mc L [facility] RDW Standard Deviation 44.6 37.0 - 46.0 fL [facility] RDW coefficient of variation 12.9 11.5 - 14.1 % [facility] Mean Platelet Volume 9.3 7.6 - 12.9 fL [facility] NRBC% auto 0.0 % [facility] NRBC Absolute 0.000 0.000 - 0.000 x10(3)/[facility] Blood 12/02/2022 6:59 AM EDT 12/02/2022 7:19 AM EDT Narrative Resulting Agency Comment Spec In Lab Giovanna Mckeon SAMPLE MAKER ORIGINAL HEMATOLOGY ORDERA BLES Performing Organization Address City/State/[facility] Co de Phone Number [facility] [address] * Basic Metabolic Panel (non-fasting) (12/02/2022 6:59 AM EDT) Glucose 120 65 - 199 mg/dL [facility] Comment:Diabetes: >=200 mg/d L plus symptoms Blood Urea Nitrogen 8 8 - 18 mg/dL [facility] Creatinine 0.73 0.70 - 1.20 mg/dL [facility] Sodium 138 135 - 145 mmol/L [facility] Potassium 4.2 3.5 - 5.0 mmol/L [facility] Comment: Please note: ??Patients with WBC >100,000 may have falsely elevated Potassium levels. ??For accurate Potassium quantification in these patients send serum separator tube (gold top) for subsequent determinations. ??Contact the Clinical Chemistry Laboratory if there are any questions. Chloride 100 98 - 107 mmol/L [facility] Carbon Dioxide 27 22 - 31 mmol/L [facility] Anion Gap 11 5 - 15 mmol/L [facility] Calcium 9.5 8.5 - 10.5 mg/dL [facility] Est Glomerular Filtration Rate 93 >=60 mL/min/1. 73 m?? [facility] Comment: This patient's estimated GFR was [...] Zurita MD CHEMISTRY ORDERABLES Performing Organization Address City/State/[facility] Co de Phone Number [facility] [place] [address] * SCAN DOC: IMPLANTABLE DEVICES (12/02/2022 12:00 AM EDT) Narrative 12/02/2022 12:00 AM EDT Ordered by an unspecified provider. Scanning Provider MEDIA MGR SCAN EXT O RDR/RSLT * Type and Screen Validity (12/01/2022 3:55 PM EDT) T&S only valid at [facility] Comment:This Type and Screen result is only valid at the [facility] Blood 12/01/2022 3:55 PM EDT 12/01/2022 4:23 PM EDT Narrative Resulting Agency Comment Spec In Lab Giovanna L Guidice SAMPLE MAKER ORIGINAL BLOOD BANK LAB OR DERABLES [facility] [place] [address] * ABORH Recheck Status (12/01/2022 3:55 PM EDT) ABORH Type Recheck Completed [facility] Blood 12/01/2022 3:55 PM EDT 12/01/2022 4:23 PM EDT Narrative Resulting Agency Comment Spec In Lab Giovanna Mkceon SAMPLE MA[employer] ORIGINAL BLOOD BANK LAB OR DERABLES Performing Organization Address City/[facility]/ZIP Co de Phone Number [facility] [place] [address] * Antibody screen (12/01/2022 3:55 PM EDT) [facility] Ab Screen Interp Negative [facility] Expires at [id number] on: 12/04/2022 [facility] Blood 12/01/2022 3:55 PM EDT 12/01/2022 4:23 PM EDT Narrative Resulting Agency Comment Spec In Lab Giovanna Mckeon APRN BLOOD BANK LAB OR DERABLES Performing Organization Address City/[facility]/ZIP Co de Phone Number [facility] [place] [address] * ABO/Rh Typing (12/01/2022 3:55 PM EDT) ABORH Type O Pos [facility] Blood 12/01/2022 3:55 PM EDT 12/01/2022 4:23 PM EDT Narrative Resulting Agency Comment Spec In Lab Giovanna Mckeon APRN BLOOD BANK LAB OR DERABLES Performing Organization Address City/[facility]/ZIP Co de Phone Number [facility] [place] [address] * Troponin (12/01/2022 3:55 PM EDT) Pathologist [facility] Troponin-T, High Sensitivity 7 <=14 ng/L [facility] Comment: This patient's troponin T concentration [...] troponin value can be found in the [facility] Test Catalog Troponin - [facility] Test Catalog Reference: Fourth [place] Definition of Myocardial Infarction. Journal of the [place] [employer] 2018;72:6176-2223 Blood Venous Draw / Unknown 12/01/2022 3:55 PM EDT 12/01/2022 4:13 PM EDT Narrative Resulting Agency Comment Spec In Lab Twila Ahumada MD CHEMISTRY ORDERABLES [facility] [place] [address] * APTT (12/01/2022 3:55 PM EDT) Partial Thromboplastin Time 30 25 - 37 sec [facility] Comment: The PTT is NOT appropriate for heparin monitoring. Use the Anti-Xa level for heparin monitoring (HEP UFH) or LMWH monitoring (HEP LMW). A PTT less than 37 seconds generally indicates adequate hemostasis. Blood 12/01/2022 3:55 PM EDT 12/01/2022 4:13 PM EDT Narrative Resulting Agency Comment Spec In Lab Giovanna Mckeon APRN HEMATOLOGY ORDERA BLES Performing Organization Address [facility] de Phone Number [facility] [place] [address] * Prothrombin Time (12/01/2022 3:55 PM EDT) Prothrombin Time 11.2 9.4 - 12.5 sec [facility] International Normalization Ratio 1.0 [facility] Comment: An INR <2.0 indicates adequate [...] APRN HEMATOLOGY ORDERA BLES Performing Organization Address [facility] Co de Phone Number [facility] [place] [address] * XR Chest PA & Lateral (Generic) [...] who have questions please contact the health ostomy care nurse that requested your imaging first. ? Narrative [...] patients who have questions please contactthe health ostomy care nurse that requested your imaging first. Tien Zurita MD IMG DX ORDERABLES * EKG 12 Lead (12/01/2022 11:15 AM EDT) Ventricular rate 72 BPM MUSE SYSTEM Atrial Rate 72 BPM MUSE SYSTEM P-R Interval 172 ms MUSE SYSTEM QRS Duration 104 ms MUSE SYSTEM Q-T Interval 406 ms MUSE SYSTEM QTC Calculated (Bezet) 444 ms MUSE SYSTEM Calculated P Painter 57 degrees MUSE SYSTEM Calculated R Painter 88 degrees MUSE SYSTEM Calculated T Painter 82 degrees MUSE SYSTEM INTERPRETATION Normal sinus [...] who have questions please contact the health ostomy care nurse that requested your imaging first. ? Narrative [...] patient motion. The conus terminates at the [id number]. No evidence for unhealed fracture in the [...] patients who have questions please contactthe health ostomy care nurse that requested your imaging first. Chauhan A Rubent IMDelano MRI ORDERABLES * MRI Thoracic Spine [...] who have questions please contact the health ostomy care nurse that requested your imaging first. ? Narrative [...] patient motion. The conus terminates at the [id number]. No evidence for unhealed fracture in the [...] patients who have questions please contactthe health ostomy care nurse that requested your imaging first. Chauhan A Rubent IMDelano MRI ORDERABLES * MRI Cervical Spine wo [...] who have questions please contact the health ostomy care nurse that requested your imaging first. ? Narrative [...] patient motion. The conus terminates at the [id number]. No evidence for unhealed fracture in the [...] patients who have questions please contactthe health ostomy care nurse that requested your imaging first. Giovanna Mckeon APRN IMG MRI ORDERABLE S [...] who have questions please contact the health ostomy care nurse that requested your imaging first. ? Electronically signed by: Elizabeth Fishman MD, [facility] ([phone]), at 12/01/2022 12:53 AM Narrative 12/01/2022 12:53 [...] patients who have questions please contactthe health ostomy care nurse that requested your imaging first. Electronically signed by: Elizabeth Fishman MD, [facility]([phone]), at 12/01/2022 12:53 AM Giovanna Mckeon JACKIE IM CT ORDERABLES * CT Thoracic Spine wo [...] who have questions please contact the health ostomy care nurse that requested your imaging first. ? Electronically signed by: Elizabeth Fishman MD, [facility] ([phone]), at 12/01/2022 12:53 AM Narrative 12/01/2022 12:53 [...] patients who have questions please contactthe health ostomy care nurse that requested your imaging first. Electronically signed by: Elizabeth Fishman MD, [facility]([phone]), at 12/01/2022 12:53 AM Giovanna Mckeon APRN [employer] [employer] CT ORDERABLES * CT Head & Cervical [...] who have questions please contact the health ostomy care nurse that requested your imaging first. ? Electronically signed by: Elizabeth Fishman MD, [facility] ([phone]), at 11/30/2022 9:36 PM Narrative 11/30/2022 9:36 [...] patients who have questions please contactthe health ostomy care nurse that requested your imaging first. Electronically signed by: Elizabeth Fishman MD, [facility]([phone]), at 11/30/2022 9:36 PM Calista Barrera MD IMG CT ORDERABLES * Troponin (11/30/2022 8:05 PM EDT) Troponin-T, High Sensitivity <6 <=14 ng/L [facility] Comment: This patient's troponin T concentration [...] troponin value can be found in the [facility] Test Catalog Troponin - [facility] Test Catalog Reference: Fourth [place] Definition of Myocardial Infarction. Journal of the [place] [employer] 2018;72:6225-5703 Blood Venous Draw / Unknown 11/30/2022 8:05 PM EDT 11/30/2022 8:34 PM EDT Narrative Resulting Agency Comment Spec In Lab Twila Ahumada MD CHEMISTRY ORDERABLES [facility] [place] [address] * Differential, Automated (11/30/2022 8:05 PM EDT) Neutrophil % 58.4 % [facility] Neutrophil Absolute 5.06 1.70 - 6.10 x10(3)/[facility] LABORATORY Lymph % 31.3 % [facility] Lymphocytes Abs 2.7 0.9 - 3.2 x10(3)/[facility] LABORATORY Monocyte % 6.8 % [facility] Monocyte Abs 0.6 0.3 - 0.9 x10(3)/[facility] LABORATORY Eos % 3.0 % [facility] Eosinophils Abs 0.3 0.0 - 0.4 x10(3)/[facility] LABORATORY Basophil % 0.2 % [facility] Baso Absolute 0.0 0.0 - 0.1 x10(3)/[facility] LABORATORY Immature Gran % 0.30 % [facility] Comment: Immature granulocytes(IG's)percentage and absolute count will include metamyelocytes, myelocytes, and promyelocytes. Blood smears from CBCs yielding IG's will be scanned manually for concordance. If this scan disagrees with the automated IG or if promyelocytes are noted, a manual differential will be performed. Immature Gran Absolute 0.03 0.00 - 0.04 x10(3)/[facility] LABORATORY Blood 11/30/2022 8:05 PM EDT 11/30/2022 8:33 PM EDT Narrative Resulting Agency Comment Spec In Lab Guido MARSHALL HEMATOLOGY ORDERABLE S [facility] [place] [address] * (ABNORMAL) Hemogram (11/30/2022 8:05 PM EDT) White Blood Cell 8.7 4.0 - 9.5 x10(3)/mc L [facility] Red Blood Cell 4.09 4.00 - 5.21 x10(6)/mc L [facility] Hemoglobin 13.2 11.7 - 15.5 g/dL [facility] Hematocrit 37.7 35.7 - 45.8 % [facility] Mean Cell Volume 92.2 82.6 - 94.4 fL [facility] Mean Cell Hemoglobin 32.3(H) 27.1 - 32.0 pg [facility] Mean Cell Hemoglobin Concentration 35.0 31.7 - 35.0 g/dL [facility] Platelet 260 145 - 357 x10(3)/mc L [facility] RDW Standard Deviation 42.5 37.0 - 46.0 fL [facility] RDW coefficient of variation 12.6 11.5 - 14.1 % [facility] Mean Platelet Volume 9.0 7.6 - 12.9 fL [facility] NRBC% auto 0.0 % [facility] NRBC Absolute 0.000 0.000 - 0.000 x10(3)/mc L [facility] Blood 11/30/2022 8:05 PM EDT 11/30/2022 8:33 PM EDT Narrative Resulting Agency Comment Spec In Lab Guido MARSHALL HEMATOLOGY ORDERABLE S [facility] [place] [address] * (ABNORMAL) Basic Metabolic Panel (non-fasting) (11/30/2022 8:05 PM EDT) Glucose 132 65 - 199 mg/dL [facility] Comment:Diabetes: >=200 mg/d L plus symptoms Blood Urea Nitrogen 8 8 - 18 mg/dL [facility] Creatinine 0.62(L) 0.70 - 1.20 mg/dL [facility] Sodium 133(L) 135 - 145 mmol/L [facility] Potassium 4.3 3.5 - 5.0 mmol/L [facility] Comment: Please note: ??Patients with WBC >100,000 may have falsely elevated Potassium levels. ??For accurate Potassium quantification in these patients send serum separator tube (gold top) for subsequent determinations. ??Contact the Clinical Chemistry Laboratory if there are any questions. Chloride 99 98 - 107 mmol/L [facility] Carbon Dioxide 20(L) 22 - 31 mmol/L [facility] Anion Gap 14 5 - 15 mmol/L [facility] Calcium 9.3 8.5 - 10.5 mg/dL [facility] Est Glomerular Filtration Rate 101 >=60 mL/min/1. 73 m?? [facility] Comment: This patient's estimated GFR was [...] Lab Calista Barrera MD CHEMISTRY ORDERABLE S [facility] [place] [address] documented in this encounter Visit Diagnoses Diagnosis [...] Rectal, DAILY PRN, Starting on Tue12/05/22 at 205, Until Tue12/16/22 at 1500, Constipation, Routine Given [...] thrombin (Bovine) (Thrombinar) kit PRN, Starting on Tue12/02/22 at 1448, Until Teresa 12/16/22 at 1500, Intra-Operative (Intra-Procedure) Given 12/02/2022 2:48 PM EDT 20,000 Units 19- Surgical Site vancomycin (Vancocin) injection PRN, Starting on Tue12/02/22 at 1537, Until Teresa 12/16/22 at 1500, [...] Gan RN) 0531 (Given - Provider: Cristina Gan, OLIVIA)1207 (Given - Provider: Mayuri Patel RN)1820 (Given - Provider: Nicolasa Prince LPN) 0046 (Given - Provider: Cindy Morejon, OLIVIA)0554 (Given - Provider: Cindy Morejon, OLIVIA)1202 (Given - Provider: Mali Forde, OLIVIA) amitriptyline (Elavil) tablet 100 mg 100 mg, Oral, NIGHTLY, First dose on Tue12/01/22 at 2100, Until Discontinued, Routine 2054 (Given - Provider: Cristina Gan RN) 2049 (Given - Provider: Cindy Morejon, OLIVIA) atenoloL (Tenormin) tablet 50 mg 50 [...] Nicolasa Prince LPN)2048 (Given - Provider: Cindy Morejon, OLIVIA) 0844 (Given - Provider: Mali Forde, OLIVIA) famotidine (Pepcid) (10 mg/mL) injection 20 mg(Linked Group 1) 20 mg, Intravenous, 2 TIMES DAILY, First dose on Tue12/01/22 at 1118, Until Discontinued, Routine 0816 (See Alternative - Provider: Nicolasa Prince LPN)2054 (See Alternative - Provider: Cristina Gan RN) 08 (See Alternative - Provider: Nicolasa Prince LPN)2049 (See Alternative - Provider: Cindy Morejon RN) 0845 (See Alternative - Provider: Mali Forde, [...] RN)2054 (Given - Provider: Cristina Gan RN) 0844 [...] LPN)2057 (Given - Provider: Cristina Gan RN) 0844 (Given - Provider: Nicolasa Prince LPN)2050 (Given [...] Provider: Cristina Gan RN - Comment: shoulders) 08 (Patch Removed - Provider: Nicolasa Pirnce LPN)2050 (Patch Applied - Provider: Cindy Morejon [...] Routine 0417 (Given - Provider: Cristina Gan RN)123 (Given - Provider: Mayuri Patel, OLIVIA)2055 (Given - Provider: Cristina Gan RN) 0531 (Given - Provider: Cristina Gan RN)1230 (Given - Provider: Mayuri Patel, OLIVIA)2030 (Given - Provider: Cindy Morejon, OLIVIA) 0430 (Given - Provider: Cindy Morejon RN)1230 [...] Discontinued, Routine 2055 (Given - Provider: Cristina Gan, OLIVIA) 2049 (Given - Provider: Cindy Morejon, OLIVIA) senna-docusate (Pericolace) 8.6-50 mg per tablet 2 tablet 2 tablet, Oral, 2 TIMES DAILY, First dose on Tue12/01/22 at 1118, Until Discontinued, Hold for loose stool. , Routine 815 (Given - Provider: Nicolasa Prince LPN)2054 (Given - Provider: Cristina Gan RN) 08 (Given - Provider: Nicolasa Prince LPN)2049 (Given - Provider: Cindy Morejon, OLIVIA) 0845 [...] Cindy Morejon, OLIVIA) 0850 (Given - Provider: Mali Forde, OLIVIA) [...] Rectal, DAILY PRN, Starting on Tue12/05/22 at 2050, Until Tue12/16/22 at 1500, Constipation, Routine calcium [...] Nicolasa Prince LPN)2058 (Given - Provider: Cindy Morejon, OLIVIA) hydrALAZINE (Apresoline) (20 mg/mL) injection 10 mg [...] Cristina Gan RN) 0531 (Given - Provider: Cristnia Gan RN)0905 (Given - Provider: Nicolasa Prince [...] Mali Forde, OLIVIA)1203 (Given - Provider: Mali Forde RN) sodium [...] PRN, Starting on 12/04/22 at 0916, Until Tue12/16/22 at 1500, Pain, severe pain (7-10), Ask provider whether to use oxycodone or Codeine #3. Initial dose 20mg. If pain control not adequate in 60 minutes, give additional 10mg., Routine documented in this encounter Care Teams High Pressure Kettle Operator Relationship Specialty Start Date End Date Lena Womack APRN PCP - General Family Medicine 08/02/22 04/07/24 documented as of this encounter
--- OUTSIDE RECORDS SUMMARY | 2024-06-21 20:09 | XMS_ITS | Encounter Summary ---
Author Organization [facility] Address [facility] [place] [address] Care Team Providers Care Construction Job Titles Name Role Phone Shanta Lena Villeda APRN Primary Care Provider [phone] Reason for Visit * Reason Onset Date Comments Procedure 2022 Encounter Details Date Type Department Care Team (Late st Contact Info) Description 2022 [place] [address] Tien Zurita MD [facility] [place] [address] Procedure Social History Tobacco Use Types Packs/Day [...] - 11/09/2022 3:22 PM EDT Babar from [facility] returned a call from Tosin. Babar stated the patients CT is scheduled for 11/10/22 at 8:00am * Telephone Encounter - Tosin Sr - 11/09/2022 3:15 PM EDT LM at [facility] requesting they call back to advise if patient's CT C spine has been scheduled and when. * Telephone Encounter - Rena Tom - 2022 3:[address] C-spine to [facility] to be scheduled [phone] Send IB message to Dr. Zurita to review CT C-spine results for surgical planning. ~~~~~~~~~~~~~~~~~~~~~~~~~~~~~~~~~~~~~~~~~~~~~~~~~~~~~~~~~~~~~~~ Katheryn Carranza - 11/03/22 Tien Zurita MD Sent: TueNovember 03, 2022 ??4:14 PM To: P [facility] Neurosurgery Small Arms Artillery Repairer ?? Follow-up and Dispositions Check-out Note: Pre-op Needs CT C spine for pre-op planning - wants to have performed at [facility]. PCP - Lena Womack can perform pre-operative medical assessment and lab work will be ordered as external to be done at [facility]. documented in this encounter Plan of Treatment Not on file documented as of this encounter Visit Diagnoses Not on filedocumented in this encounter Care Teams Construction Job Titles Relationship Specialty Start Date End Date Lena Womack APRN PCP - General Family Medicine 08/02/22 04/07/24 documented as of this encounter
--- OUTSIDE RECORDS SUMMARY | 2024-06-21 20:09 | XMS_ITS | Encounter Summary ---
[place] [address] Care Team Providers Care Hybrid Tester Name Role Phone Shanta Lena Villeda APRN Primary Care Provider [phone] Reason for Visit * Reason Comments Post Op Encounter Details Date Type Department Care Team (Late st Contact Info) Description 08/16/2022 10:00 AM EDT Office Visit [place] [phone] Antonio Rojas MD Serous adenofibroma of left ovary Social History [...] 10:00 AM EDT Division [place] [address] Gynecologic Oncology-Clinic Note Reason for visit: Postop [...] nightly. Yes PROVIDER, HISTORICAL Miscellaneous Medical Supply Misc Bilateral wrist splints for CTS 02/24/15 Yes [...] Yes PROVIDER, HISTORICAL naloxone (Narcan) 4 mg/actuation [place], Non-Aerosol 1 each by Nasal route as needed. Patient not taking: Reported on 08/16/2022 08/08/22 Sharon Tse MD dihydroergotamine (MIGRANAL) 0.5 mg/pump act. (4 mg/mL) [place], Non-Aerosol One spray per nostril, while holding [...] Patient not taking: Reported on 08/16/2022 02/24/15 Danieal Monsalve MD promethazine (PHENERGAN) 25 mg Suppository [...] MD Verified: 08/11/2022 9:33 Pathologist Performed at: -[facility] [place] [place] Dept. of Pathology, [place] [address] Charging Machine Operator: Ernestina Valenzuela MD, FCAP, CLIA Certificate: [id number] DISCUSSION Definitive fallopian tube tissue was not [...] ovary documented in this encounter Care Teams Hybrid Tester Relationship Specialty Start Date End Date Lena Womack APRN PCP - General Family Medicine 08/02/22 04/07/24 documented as of this encounter
--- OUTSIDE RECORDS SUMMARY | 2024-06-21 20:09 | XMS_ITS | Encounter Summary ---
[place] [address] Care Team Providers Care Circular Sawyer Stone Name Role Phone Shanta Lena Ronal MEJIA Primary Care Provider [phone] Encounter Details Date Type Department Care Team (Late st Contact Info) Description 11/30/2022 [place] [address] Laura Lerner RN Social History Tobacco Use Types Packs/Day Years Used Date Smoking Tobacco: Every Day Cigarettes 0.3 35 Smokeless Tobacco: Never Alcohol Use Standard Drinks/Week Comments Yes 0 (1 standard drink = 0.6 oz pur e alcohol) 1-2x a year [facility] Inpatient Questions Answer Date Recorded [...] 11/30/2022 3:26 PM EDT Copied from CRM #[id number]. Topic: Specialty Dept CRMs - Triage >> Nov 30, 2022 2:15 PM Godwin, Nereida Juwan wrote: Triage Message Specialist: Tien Zurita Relationship [...] on filedocumented in this encounter Care Teams Circular Sawyer Stone Relationship Specialty Start Date End Date Lena Womack APRN PCP - General Family Medicine 08/02/22 04/07/24 documented as of this encounter
--- OUTSIDE RECORDS SUMMARY | 2024-06-21 20:09 | XMS_ITS | Encounter Summary ---
[place] [address] Care Team Providers Care Aluminum Siding Applicator Name Role Phone Lena Womack APRN Primary Care Provider [phone] Encounter Details Date Type Department Care Team (Late st Contact Info) Description 08/12/2022 Telephone Gynecology [place] [address] Sury Madden RN Social History Tobacco Use [...] so, patient would like anrx sent to [facility] in [place]. * Telephone Encounter - Sury Madden RN - 08/12/2022 4:10 PM EST ----- Message from Fifi Kimball RN sent at 08/12/2022 1:54 PM EST ----- Patient requesting more pain medication and would like to discuss tingling in fingers. documented in this encounter Plan of Treatment Not on file documented as of this encounter Visit Diagnoses Not on filedocumented in this encounter Care Teams Aluminum Siding Applicator Relationship Specialty Start Date End Date Lena Womack APRN PCP - General Family Medicine 08/02/22 04/07/24 documented as of this encounter
--- OUTSIDE RECORDS SUMMARY | 2024-06-21 20:09 | XMS_ITS | Encounter Summary ---
Author Organization [facility] [place] [address] Care Team Providers Care Inspector Golf Ball Name Role Phone Brunonunu Lena Nunu MEJIA Primary Care Provider [phone] Encounter Details Date Type Department Care Team (Late st Contact Info) Description 09/27/2022 Ancillary Procedure Radiology Library at [facility] [place] [phone] Tien Zurita MD [facility] [address] Social History Tobacco Use Types Packs/Day Years [...] MR Spine (09/27/2022 12:00 AM EDT) Narrative [facility] - 10/26/2022 10:17 PM EDT This exam is auto-finalizing. It's purpose is for storage only. Chauhan A Echt IMG FILM LIBRARY ORD ERABLES [place], [place] documented in this encounter Visit Diagnoses Not on filedocumented in this encounter Care Teams Inspector Golf Ball Relationship Specialty Start Date End Date Lena Womack, MATERIAL MOVER PCP - General Family Medicine 08/02/22 04/07/24 documented as of this encounter
--- OUTSIDE RECORDS SUMMARY | 2024-06-21 20:09 | XMS_ITS | Encounter Summary ---
Author Organization [facility] [place] [address] Care Team Providers Care Radio Performer Name Role Phone Lena Womack APRN Primary Care Provider [phone] Encounter Details Date Type Department Care Team (Late st Contact Info) Description 11/10/2022 2:00 PM EDT Ancillary Procedure Radiology Library [place] [address] Lena Womack APRN [address], [place] [id number] Social History Tobacco Use Types Packs/Day Years [...] CT Spine (11/10/2022 1:57 PM EDT) Narrative [facility] - 11/10/2022 1:57 PM EDT This exam is auto-finalizing. It's purpose is for storage only. Lena Womack APRN [facility] FILM LIBRARY ORD ERABLES [place], [place] documented in this encounter Visit Diagnoses Not on filedocumented in this encounter Care Teams Radio Performer Relationship Specialty Start Date End Date Lena Womack APRN PCP - General Family Medicine 08/02/22 04/07/24 documented as of this encounter
--- OUTSIDE RECORDS SUMMARY | 2024-06-21 20:09 | XMS_ITS | Encounter Summary ---
Author Organization [facility] [place] [address] Care Team Providers Care Public Area Attendant Name Role Phone Shanta Lena Villeda APRN Primary Care Provider [phone] Encounter Details Date Type Department Care Team (Late st Contact Info) Description 09/25/2022 11:10 AM EDT Ancillary Procedure Radiology Library at [facility] [place] [address] Ridge Duenas MD [facility] [address] Social History Tobacco Use Types Packs/Day Years [...] And Spine (09/25/2022 10:58 AM EDT) Narrative RAD - 09/25/2022 10:58 AM EDT This exam is auto-finalizing. It's purpose is for storage only. Ridge Duenas MD IMG FILM LIBRARY ORD ERABLES Performing Organization Address City/State/[facility] Co de Phone Number [place], [place] documented in this encounter Visit Diagnoses Not on filedocumented in this encounter Care Teams Public Area Attendant Relationship Specialty Start Date End Date Lena Womack APRN PCP - General Family Medicine 08/02/22 04/07/24 documented as of this encounter
--- OUTSIDE RECORDS SUMMARY | 2024-06-21 20:09 | XMS_ITS | Encounter Summary ---
Author Organization [facility] Address [facility] [place] [address] Care Team Providers Care Marine Service Manager Name Role Phone Lena Womack APRN Primary Care Provider [phone] Encounter Details Date Type Department Care Team [...] on filedocumented in this encounter Care Teams Marine Service Manager Relationship Specialty Start Date End Date Lena Womack APRN PCP - General Family Medicine 08/02/22 04/07/24 documented as of this encounter
--- OUTSIDE RECORDS SUMMARY | 2024-06-21 20:10 | XMS_ITS | Encounter Summary ---
Author Organization [facility] [place] [address] Care Team Providers Care Space Studies Faculty Member Name Role Phone Shanta Lena Villeda APRN Primary Care Provider [phone] Encounter Details Date Type Department Care Team (Late st Contact Info) Description 08/01/2022 10:40 PM EST Ancillary Procedure Radiology Library at [facility] [address] Social History Tobacco Use Types Packs/Day Years [...] who have questions please contact the health palliative care physician that requested your imaging first. ? Narrative [...] outside imaging study. ?? * ??Sending Institution [facility] * ??Date of exam 20220729 * ??I believe a reinterpretation of this exam may alter care of Patient. Yes TECHNIQUE: CT of the chest, abdomen, and pelvis was performed with intravenous contrast at [facility] on July 29, 2022. Helical CT [...] similar prior examination provided for comparison. FINDINGS: Railway Yard Assistant Images: Noncontributory. CT OF THE CHEST: Lungs [...] of outside imaging study. * Sending Institution [facility] * Date of exam 20220729 * I believe a reinterpretation of this exam may alter care of Patient.Yes TECHNIQUE: CT of the chest, abdomen, and pelvis was performed withintravenous contrast at [facility] on July 29, 2022. Helical CT images of the chest, abdomen, and pelvis were obtainedfollowing administration of intravenous contrast. Per report, the patient [id number] mL Omnipaque 350 intravenous contrast. Oral contrast was not administered. Multiplanar reformats were performed in the sagittal and coronal planes. Maximum Intensity Projection (MIP) images were also reformatted. COMPARISON: There is no similar prior examination provided forcomparison. FINDINGS: Railway Yard Assistant Images: Noncontributory. CT OF THE CHEST: Lungs [...] patients who have questions please contactthe health palliative care physician that requested your imaging first. Oumou Villar MD IMG OUTSIDE INTERPRE TATION ORDERABLES documented in this encounter Visit Diagnoses Not on filedocumented in this encounter Care Teams Space Studies Faculty Member Relationship Specialty Start Date End Date Lena Womack APRN PCP - General Family Medicine 08/02/22 04/07/24 documented as of this encounter
--- OUTSIDE RECORDS SUMMARY | 2024-06-21 20:10 | XMS_ITS | Encounter Summary ---
Author Organization [facility] [place] [address] Care Team Providers Care Open Claims Representative Name Role Phone None Primary Care Provider [...] on filedocumented in this encounter Care Teams Open Claims Representative Relationship Specialty Start Date End Date None None PCP - General 08/01/22 08/01/22 documented as of this encounter
--- OUTSIDE RECORDS SUMMARY | 2024-06-21 20:10 | XMS_ITS | Encounter Summary ---
Author Organization [facility] [place] [address] Care Team Providers Care Mammalogy Teacher Name Role Phone Brunonunu Lena Nunu MEJIA Primary Care Provider [phone] Encounter Details Date Type Department Care Team (Late st Contact Info) Description 08/01/2022 10:30 PM EST Ancillary Procedure Radiology Library [place] [address] Social History Tobacco Use Types Packs/Day Years [...] have questions please contact the health healthcare business analyst that requested your imaging first. ? --------ORIGINAL REPORT -------- EXAMINATION: REQUEST FOR 2ND READ ULTRASOUND STUDY CLINICAL HISTORY: L adnexal mass; Sending Institution [facility]; Date of exam 20220730; I believe [...] have questions please contact the health healthcare business analyst that requested your imaging first. ? Addendum by Sandra Henderson MD on 08/25/2022 12:39 PM EDT --------ADDENDUM #1-------- TECHNIQUE: US Pelvis, Images were obtained and VRE --------ORIGINAL REPORT -------- EXAMINATION: REQUEST FOR 2ND READ ULTRASOUND STUDY CLINICAL HISTORY: L adnexal mass; Sending Institution [facility]; Date of exam 20220730; I believe [...] have questions please contact the health healthcare business analyst that requested your imaging first. ? Impressions [...] have questions please contact the health healthcare business analyst that requested your imaging first. ? Electronically signed by: Sandra Henderson MDH. [facility] ([phone]), at 08/02/2022 10:18 AM Narrative 08/02/2022 10:18 AM EST EXAMINATION: REQUEST FOR 2ND READ ULTRASOUND STUDY CLINICAL HISTORY: L adnexal mass; Sending Institution [facility]; Date of exam 20220730; I believe [...] CLINICAL HISTORY: L adnexal mass; [facility]; Dateof exam 20220730; I believe a reinterpretation of this exam may alter care ofPatient. Yes; ; L adnexal mass TECHNIQUE: Images were obtained and VRE COMPARISON: CT from 07/29/2022 FINDINGS: By history the patient is status post cystectomy and LEFT nephrectomy.The images presented show a large cystic lesion in the RIGHT adnexa withperipheral nodularity. The measurements obtained were 13.7 x 11.5 by [id number] cm. The images do not show definite [...] who have questions please contactthe health healthcare business analyst that requested your imaging first. Oumou Villar MD IMG OUTSIDE INTERPRE TATION ORDERABLES documented in this encounter Visit Diagnoses Not on filedocumented in this encounter Care Teams Mammalogy Teacher Relationship Specialty Start Date End Date Lena Womack APRN PCP - General Family Medicine 08/02/22 04/07/24 documented as of this encounter
--- OUTSIDE RECORDS SUMMARY | 2024-06-21 20:10 | XMS_ITS | Encounter Summary ---
Author Organization [facility] [place] [address] Care Team Providers Care Twisting Operator Name Role Phone Shanta Lena Villeda APRN Primary Care Provider [phone] Encounter Details Date Type Department Care Team (Late st Contact Info) Description 08/01/2022 10:35 PM EST Ancillary Procedure Radiology Library [place] [address] Social History Tobacco Use Types Packs/Day Years [...] questions please contact the health child care team lead that requested your imaging first. ? Narrative 08/02/2022 8:25 AM EST EXAMINATION: REQUEST FOR 2ND READ CT SPINE CLINICAL HISTORY: back/flank pain r/o spinal stenosis; Sending Institution [facility]; Date of exam 20220729; I [...] on filedocumented in this encounter Care Teams Twisting Operator Relationship Specialty Start Date End Date Lena Womack APRN PCP - General Family Medicine 08/02/22 04/07/24 documented as of this encounter
--- OUTSIDE RECORDS SUMMARY | 2024-06-21 20:10 | XMS_ITS | Encounter Summary ---
Author Organization [facility] [place] [address] Care Team Providers Care Market Risk Manager Name Role Phone BrunoLena eddy Ronal MEJIA Primary Care Provider [phone] Reason for Visit * Auth/Cert (Routine) Specialty Diagnoses / Procedures Referred By Contbyron t Referred To Contact Diagnoses Adnexal mass Antonio Rojas MD [facility] Referral ID Status Reason Start Date Expiration Date Visits Re quested Visits Authorized [id number] 1 1 Encounter Details Date Type Department Care Team (Late st Contact Info) Description 08/02/2022 5:52 PM EST Anesthesia [place] [address] Laura Baltazar MD [facility] [address] ANESTHESIOLOGY [place] [address] Tay Hays MD [facility] ANESTHESIOLOGY [place] [address] Anesthesia Record Procedure Summary Procedure Name Responsible Anesthesiologist Anesthesia Start Time Anesthesia Stop Time LAPAROSCOPY, DIAGNOSTIC, ABDOMEN (WRVU 5.14) (Left: Abdomen) Laura Baltazar MD 08/02/22 1752 08/02/22 2106 Events Date Time Event Comment 08/02/2022 1441 1752 AN Verify 1752 Start 1752 An Start Data 1801 An Induction 1806 An Intubation 180 Anesthesia Ready 1833 Procedure Start 1843 Quick [...] 1854; abdo men; midline 08/02/221853 by Delaney Wiggins RN Drain/Device Site 12/09/11; Right; justino ast; collapsible closed device (#1:19 coy drain); 08/05/22 12/09/11 0000 by Lianne Dillon RN 08/05/22 0000 by Esther Leung, OLIVIA Drain/Device Site 12/09/11; Left; shel[address] st; collapsible closed device (#2:19 coy drain); 08/05/22 12/09/11 0000 by Lianne Dillon, OLIVIA 08/05/22 0000 by Esther Leung, OLIVIA (RETIRED) Peripheral IV Line - Single Lumen 08/01/22; 2214; median cubital vein (antecubital fossa), left; ngrx-qwt-eovjou catheter system; Anatomical Landmarks; 20 gauge; S Julio Cesar; no longer indicated, removed per policy/procedure, catheter/device intact; 08/03/22; 1710 08/01/222213 by Thom Harrell, CRAIG 08/03/22 171 by Bhargavi Duncan, RN (RETIRED) Peripheral IV Line - Single Lumen 08/02/22; 1804; metacarpal vein (top of hand), right; qbly-sev-hfhjdv catheter system; Anatomical Landmarks; 18 gauge; removed [...] 08/02/22; Removal Time: 205508/02/221805 by Mery Murphy GRAPHICS MANAGER 08/02/222055 by Mery Murphy CRNA NG/OG Tube 08/02/22; 180; orogastric; mouth; 08/02/22; 201708/02/221806 by Mery Murphy GRAPHICS MANAGER 08/02/222017 by Mery Murphy CRNA Urethral Catheter 08/02/22; 1900; inse rted at this facility; drainage bag to dependent drainage; urethral catheter removed, tubing intact, per protocol/policy; 08/06/22; 1315 08/02/22 1900 by Grace Manzanares RN 08/06/22 1315 by Herlinda Flores RN documented in this [...] hand hygeine and patient draped Block Technique: R-kwygw-earlz 10 cm Ultrasound Guided: YES Ultrasound Image [...] PM Nerve Sensory/MotorTest: Events: no complications Staff: Resident/GRAPHICS MANAGER:: Joe Soto MD Attending Physician:: Estuardo Lamb MD Notes: B/L TAP and Rectus Sheath blocks 20cc at L and R TAP, 20cc at L and R Rectus Sheath, 80cc total of 0.25% bupivacaine * Anesthesia Postprocedure Evaluation - Laura Baltazar MD - 08/02/2022 9:14 PM EST Department of Anesthesiology Post-procedure Note Patient: Katheryn Carranza Procedure Summary Date: 08/02/22 Room / Location: [facility] OR [address] [place] [address] MAIN OR Anesthesia Start: 1751 Anesthesia Stop: 2105 Procedures: LAPAROSCOPY, DIAGNOSTIC, ABDOMEN (WRVU 5.14) (Left: Abdomen) @SALPINGO-OOPHORECTOMY, UNILATERAL OR EVA (WRVU 12.16) (Left: Abdomen) Diagnosis: (left adnexal mass) Surgeons: Antonio Rojas MD Responsible Provider: Laura Baltazar MD Anesthesia Type: general ASA Status: 2 All Anesthesia Providers: Anesthesiologist: Laura Baltazar MD GRAPHICS MANAGER: Mery Murphy CRNA Vitals Value Taken Time BP 146/133 08/02/22 2235 Temp 36.2 ??C (97.2 ??F) 08/02/22 2200 Pulse 75 08/02/22 2243 Resp 16 08/02/22 2243 SpO2 95 % 08/02/22 2243 Pain Level 6 08/02/222222 Vitals shown include unvalidated device data. Patient Location: PACU/[facility] Level of Consciousness: Conscious but Sleepy [...] MAMMOPLASTY, EVA performed by DEMETRA SOMMERS at [facility] MAIN OR Social History Tobacco Use [...] hygeine and patient draped Block Technique: ?? A-rzluo-nmtgv ?? 10 cm ??Ultrasound Guided: ??YES ??Ultrasound [...] Nerve Sensory/MotorTest: ??Events: no complications ?? Staff: ??Resident/GRAPHICS MANAGER:: ??Joe Soto MD ??Attending Physician:: ??Estuardo Lamb MD Notes: ?? B/L TAP and Rectus Sheath blocks 20cc at L and R TAP, 20cc at L and R Rectus Sheath, 80cc total of 0.25% bupivacaine Estuardo Lamb MD [facility] documented in this encounter Visit Diagnoses [...] on Tue08/02/22 at 1821, Until Tue08/02/22 at 2106, Administer over 30 Minutes, Anesthesia Intra-op Given [...] on Tue08/02/22 at 1820, Until Tue08/02/22 at 210, Anesthesia Intra-op, Routine Given 08/02/2022 6:20 PM EST 5,000 Uni ts HYDROmorphone (Dilaudid) (2 mg/mL) multi-dose injection solution Intravenous, PRN, Starting on Tue08/02/22 at 1852, Until Tue08/02/22 at 210, Anesthesia Intra-op, Routine Given 08/02/2022 8:02 PM EST 0.5 mg Given 08/02/2022 7:52 PM EST 0.5 mg Given 08/02/2022 7:42 PM EST 0.5 mg ketamine (Ketalar) (10 mg/mL) IV bolus injection (Anesthesia) Intravenous, PRN, Starting on Tue08/02/22 at 1817, Until Tue08/02/22 at 210, Anesthesia Intra-op Given 08/02/2022 6:46 PM EST 20 mg Given 08/02/2022 6:17 PM EST 30 mg ketorolac (Toradol) (30 mg/mL) injection Intravenous, PRN, Starting on Tue08/02/22 at 1955, Until Tue08/02/22 at 210, Anesthesia Intra-op, Routine Given 08/02/2022 7:55 PM EST 30 mg lactated ringers infusion Intravenous, CONTINUOUS PRN, Starting on Tue08/02/22 at 1752, Until Tue08/02/22 at 210, Anesthesia Intra-op New Bag 08/02/2022 5:52 PM EST lidocaine (pf) (Xylocaine) (20 mg/mL) 2% injection syringe Intravenous, PRN, Starting on Tue08/02/22 at 1803, Until Tue08/02/22 at 210, Anesthesia Intra-op, Routine Given 08/02/2022 6:03 PM EST 100 mg midazolam (pf) (Versed) (1 mg/mL) multi-dose injection Intravenous, PRN, Starting on Tue08/02/22 at 1752, Until Tue08/02/22 at 210, Anesthesia Intra-op, Routine Given 08/02/2022 5:52 PM [...] on Tue08/02/22 at 1804, Until Tue08/02/22 at 2106, Anesthesia Intra-op, Routine Given 08/02/2022 7:43 PM EST 10 mg Given 08/02/2022 6:04 PM EST 100 mg sugammadex (Bridion) 100 mg/mL injection Intravenous, PRN, Starting on Tue08/02/22 at 2019, Until Tue08/02/22 at 2106, Anesthesia Intra-op, Routine Given 08/02/2022 8:19 PM EST 400 mg documented in this encounter Care Teams Market Risk Manager Relationship Specialty Start Date End Date Lena Womack APRN PCP - General Family Medicine 08/02/22 04/07/24 documented as of this encounter
--- OUTSIDE RECORDS SUMMARY | 2024-06-21 20:10 | XMS_ITS | Encounter Summary ---
Author Organization [facility] [place] [address] Care Team Providers Care Black And White Printer Operator Name Role Phone Sailaja Ross APRN Primary Care Provider [phone] Encounter Details Date Type Department Care Team (Late st Contact Info) Description 07/30/2022 Ancillary Procedure Radiology Library at [facility] [place] [id number] Social History Tobacco Use Types Packs/Day Years [...] purpose is for storage only. Kayleigh Goldsmith [facility] FILM LIBRARY ORD ERABLES documented in this encounter Visit Diagnoses Not on filedocumented in this encounter Care Teams Black And White Printer Operator Relationship Specialty Start Date End Date Sailaja Ross APRN PCP - General Family Medicine 01/24/17 07/31/22 documented as of this encounter
--- OUTSIDE RECORDS SUMMARY | 2024-06-21 20:10 | XMS_ITS | Encounter Summary ---
[place] [address] Care Team Providers Care Gas Operator Name Role Phone Lena Womack Ronal MEJIA Primary Care Provider [phone] Reason for Visit * Reason Comments Abdominal Pain Left ovarian mass Back Pain Fall * Auth/Cert (Routine) Specialty Diagnoses / Procedures Referred By Contac t Referred To Contact Diagnoses Adnexal mass Antonio Rojas MD [facility] Referral ID Status Reason Start Date Expiration Date Visits Re quested Visits Authorized [id number] 1 1 Encounter Details Date Type Department Care Team (Late st Contact Info) Description 08/02/2022 3:30 PM EST - 08/02/2022 5:42 PM EST [place] [address] Antonio Rojas MD LAPAROSCOPY, DIAGNOSTIC, ABDOMEN (WRVU 5.14) Social History [...] Katheryn Carranza Patient Age: 61 y.o. Language: Serbian Race: White Ethnicity: Not nor Admit date: [...] Inpatient Provider Contact Information: Dr. Antonio Rojas, [facility] Gynecologic Oncology, Discharge Diagnoses (Hospital [...] 07/29/21, she presented to the ED at [facility]. She had a CTAP demonstrating a 15cm complex left adnexal mass. She also had a CT spine performed without acute findings. Patient was dispositioned to outpatient follow-up with Property Consultant Oncology at [facility]. ?? Tonight, she reports worsening pain [...] There were no concern for malignancy. #Pain: TELEGRAPH LINEMAN started for pain control for her abdominal and back pain. BIT team consulted due to using opioids without Rx at home and to assist with overall assessment and plan for going home. TELEGRAPH LINEMAN was eventually transitioned to PO tylenol, ibuprofen, [...] Yellow Yellow Appearance UA Clear Clear Spec Maple UA 1.005 - 1.030 1.011 pH UA [...] Tumor markers 08/01/22: CA-125=40.8 / CEA=2.2 / JX57-5=5.1 Studies: EGD 08/05/22: ??The examined esophagus was [...] 90 tablet Refills: 3 naloxone 4 mg/actuation [place] Commonly known as: Narcan 1 each by [...] 0 dihydroergotamine 0.5 mg/pump act. (4 mg/mL) [place] Commonly known as: MIGRANAL One spray per [...] as needed. Refills: 0 Miscellaneous Medical Supply Mis Bilateral wrist splints for CTS Quantity: 2 [...] PATIENT DISCHARGE INSTRUCTIONS Gynecologic Oncology phone number: [phone] (Nurse ext 4 then 4; appointment ext 1 then 4). After hours and on weekends please call hospital raking machine operator at [phone] and ask for Gynecologic Oncologist business analysis consultant. Call your doctor if you develop: --A [...] useof opioid medications, here are some options: [facility], [facility] Saumya Kumari, Drug & Alcohol Counselor, MS, LAD [address] [facility] [address] [place] [id number] Offers online therapy Watson Wiely, Drug & Alcohol Counselor, MS, [facility], ICGC-1, MAC 4 [facility] [address] [place] [address] Offers online therapy Inner [facility] Asha Quinatna, Drug & Alcohol Counselor, [place]LEEN, JAZLYN, [place], [place] [address] Offers online therapy Complete Aereo [facility] Ara Pratt, Drug & Alcohol Counselor, [facility], [facility] [address] [place], [place] [address] Offers online therapy [facility] Jose Miguel Dominique, Pre-Licensed Professional, POLICE CAPTAIN [address] [place], [place] [id number] [phone] Scott Young, Drug & Alcohol Counselor, MS, [facility], [facility] [address] [place], [place] [id number] Offers online therapy Dr. Michel Junior, Drug & Alcohol Counselor, jared, MA, [facility], [facility], [facility] [address] [facility] [address] [place], [place] [id number] Offers online therapy To review the profiles of private practice therapists, including ones listed above: 1) Visit www.psychologytoBuyt.In.com 2) Enter your city name or zip code 3) Filter search results on the right hand side, including by insurance 4) Review therapist profiles 5) Call to schedule an intake appointment Residential Treatment: [facility] ([facility]) An [facility] [address] [place] [address] [facility] [address] [place] [address] [facility] [address] [place] [address] [address] Medication Assisted Therapy: [facility] Services is a suboxone clinic in [place], [place] [address] [place], [place] [id number] Services: Buprenorphine treatment Substance use treatment People with trauma, people with HIV or AIDS and people with co-occurring pain and substance use Naltrexone administration, methadone maintenance and suboxone prescription Peer Support Groups Narcotics Anonymous (NA) [place]: , www.gsana.org Online NA Meetings NA Video Meetings www.virtual-na.org/meetings NA Text Chat Meetings Www.Glaukosaloneclub.org SMART Recovery Meetings via Zoom 5:00-6:00pm, free and open to all To join Zoom meetin. Visit [email or web address] 5. Click on calendar on top of toolbar 6. Find the correct meeting date and time 7. Click the zoom link and enter password provided 211: [facility], managed by [facility], is located at [address] [facility] in [place]. It offers screening as well as other services onsite, and connects clients with the care that is most appropriate for their needs. Services are accessible anytime, day or night, by calling 2-1-1. Overnight, respite care is available in [facility] and [place]. Additional Substance Use Treatment Resources www.[facility].hi.gov/dcbcs/bdas/documents/mayvtbrw-slbcl-lbkvcovtq.pdf www.psychologyMassachusetts Clean Energy Center.com/ Www.rethinkingdrinking.niaaa.nih.gov/ www.samhsa.gov/iualtkykgb-dfiblxaj-pdgziweba/gcrxsokdhqyl-ysxvbqd-nenc/treatment -practitioner-concrete handler Mental Health Crisis [facility] Crisis Line: Dial 988 www.[facility].gov/find-help/986 Harm-Reduction Resources Mobile harm-reduction. For more information about receiving supplies: including syringe exchange, fentanyl test strips, and naloxone, or to schedule an appointment: [place] clients call and leave a message for Nancy (ext. 105) or Mateo Cruz (ext. 104). [place] clients call to speak with Mateo Feliz www.[facility].hi.gov/dphs/bchs/std/documents/sspregistrations.pdf Warning Illicit drugs do not come with [...] is being approved. Online Stress Reduction Resources www.StuRents.com/videos-features/videos/jqlfpshlt-mcoeczubu-8-7-8-breath/ www.AudioBeta.org/2012/mxlnkrkhv-ppixszmne-tisuyoc-moment/ www.headsStorify.3Leaf/ www.mindful.org/ www.freeEmpower Interactive Groupness.org/ Future Appointments and Orders Future Appointments and Orders Future Appointments Provider Department Dept Phone 08/16/2022 10:00 AM Antonio Rojas MD Gynecology Oncology at [facility] Arrive at: Public Relations Analyst Area [phone] 08/16/2022 11:00 AM Property Consultant, Onc Nurse Gynecology Oncology at [facility] Arrive at: Public Relations Analyst Area [phone] Discharge References/Attachments Prediabetes (Serbian) Provider Contact Information: Lena Womack, NUTRITION AIDES TEACHER [phone] documented in this encounter Discharge Instructions * Discharge Instructions* Sharon Tse MD - 08/05/2022 10:57 AM EST Substance Use Disorder Resources From BIT (Behavioral Intervention Team), Inpatient psych services: If you are interested in receiving some counseling support related to reducing or stopping your useof opioid medications, here are some options: [facility], [facility] Saumya Kumari, Drug & Alcohol Counselor, MS, [facility] [address] [facility] [address] [place], [place] [address] Offers online therapy Watson Wiley, Drug & Alcohol Counselor, MS, LAD, ICGC-1, MAC 4 [facility] [address] [place] [address] Offers online therapy Inner [facility] Asha Quintana, Drug & Alcohol Counselor, [place], [facility], [place], [place] [address] Offers online therapy [facility], [facility] Ara Pratt, Drug & Alcohol Counselor, [facility], [facility] [address] [place], [place] [address] Offers online therapy [facility] Jose Miguel Dominique, Pre-Licensed Professional, POLICE CAPTAIN [address] [place] [address] x9 Scott Eric, Drug & Alcohol Counselor, MS, [facility], [facility] [address] [place], [place] [address] Offers online therapy Dr. Michel Junior, Drug & Alcohol Counselor, [place], [place], [facility], Th, BS[facility] [address] [facility] [address] [place], [place] [phone] Offers online therapy To review the profiles of private practice therapists, including ones listed above: 1) Visit www.psychologyMassachusetts Clean Energy Center.3Leaf 2) Enter your city name or zip code 3) Filter search results on the right hand side, including by insurance 4) Review therapist profiles 5) Call to schedule an intake appointment Residential Treatment: [facility] ([facility]) An [place] [address] [place], [place] [phone] [place], [place] [phone] [facility] Behavior[facility] Health [address] [place] [address] [facility] [address] [facility] [place] [address] Medication Assisted Therapy: [facility] Behavioral Health [facility] is a suboxone clinic in [facility], [place] [address] [place] [address] Services: Buprenorphine treatment Substance use treatment People with trauma, people with HIV or AIDS and people with co-occurring pain and substance use Naltrexone administration, methadone maintenance and suboxone prescription Peer Support Groups Narcotics Anonymous (NA) [place]: , www.gsana.org Online NA Meetings NA Video Meetings www.IP Streetna.org/meetings NA Text Chat Meetings Www.51aiya.com.org SMART Recovery Meetings via Zoom 5:00-6:00pm, free and open to all To join Zoom meeting: Visit [email or web address] Click on calendar on top of toolbar Find the correct meeting date and time Click the zoom link and enter password provided 211: The Doorway to Recovery [facility], managed by [facility], is located at [address] [facility] in [place]. It offers screening as well as other services onsite, and connects clients with the care that is most appropriate for their needs. Services are accessible anytime, day or night, by calling 2-1-1. Overnight, respite care is available in [facility] and [place]. Additional Substance Use Treatment Resources www.dhhs.hi.gov/dcbcs/bdas/documents/tmbmzhka-rveoz-hpubdltkh.pdf www.psychologytoday.com/ Www.rethinkingdrinking.niaaa.nih.gov/ www.samhsa.gov/lgyvshhkaw-wfaouhxh-wojdfpkcu/meodkyoxxauz-qvovwns-sjes/treatment -practitioner-concrete handler Mental Health Crisis National Mental Health Crisis Line: Dial 988 www.samhsa.gov/find-help/988 Harm-Reduction Resources Mobile harm-reduction. For more information about receiving supplies: including syringe exchange, fentanyl test strips, and naloxone, or to schedule an appointment: [place] clients call and leave a message for Nancy (ext. 105) or Mateo Cruz (ext. 104). [place] clients call to speak with Mateo Pascal. www.[facility].hi.gov/dphs/bchs/std/documents/sspregistrations.pdf Warning Illicit drugs do not come with [...] is being approved. Online Stress Reduction Resources www.StuRents.com/videos-features/videos/hgqkoilxv-gvrcknuqy-9-7-8-breath/ www.AquaMostindVanilla Breezeword.org/2012/kpvvmxjjt-xulcqmoae-zdofxrd-moment/ www.FuturestateIT/ www.mindful.org/ www.freemindfulness.org/ * Patient Instructions* Sharon Tse MD - 08/03/2022 9:56 AM EST PATIENT DISCHARGE INSTRUCTIONS Gynecologic Oncology phone number: [phone] (Nurse ext 4 then 4; appointment ext 1 then 4). After hours and on weekends please call hospital raking machine operator at [phone] and ask for Gynecologic Oncologist business analysis consultant. Call your doctor if you develop: --A [...] be sent through Care Everywhere. * Prediabetes (Serbian) documented in this encounter Medications at Time [...] regular diet for breakfast/lunch. Abd. pain present. TELEGRAPH LINEMAN discontinued this AM and patient transitioned to [...] of opioid dependence ??? Ordered for dilaudid TELEGRAPH LINEMAN due to patient discomfort and NG tube [...] EST Patient seen and examined with the lcac radar operator/navigator oncology team. I agree with their assessment [...] but denies need for intervention. On dilaudid TELEGRAPH LINEMAN and scheduled pain meds with good effect. [...] 286 Recent Labs 08/07/22 0516 08/06/22 0518 08/04/224 NA 137 139 137 K 3.8 3.3* 3.6 CL 101 99 101 CO2 24 26 24 BUN 9 10 10 CREATININE 0.68* 0.65* 0.70 Latest Reference Range & Units 08/05/22 10:47 Color UA Yellow Yellow Appearance UA Clear Clear Spec Maple UA 1.005 - 1.030 1.011 pH UA [...] Moderate pancolonic stool burden Assessment and Plan Katherny Carranza is an 61 y.o. woman who [...] of opioid dependence ??? Ordered for dilaudid TELEGRAPH LINEMAN due to patient discomfort and NG tube [...] EST Patient seen and examined with the lcac radar operator/navigator oncology team. I agree with their assessment [...] but denies need for intervention. On dilaudid TELEGRAPH LINEMAN and scheduled pain meds with good effect. [...] Pain continues to be managed with Dilaudid TELEGRAPH LINEMAN and tylenol. Diet changed to NPO give [...] Prieto, in a two level home in [place], [place]. Bedroom and bathroom she typically uses [...] per neurosurg) Lines: Ted, PIV, NG tube, TELEGRAPH LINEMAN Activity Orders: Up with assistance Diet: NPO [...] moderate mid-low back with transfers, pt used TELEGRAPH LINEMAN at start of session and end of [...] benefit from a short rehab stay at [facility] to progress mobility and maximize functional mobility, [...] Code: TEF x2 Demetra Hess, PT Pager: [phone] Physical Therapy Inpatient Rehabilitation Department * Fifi [...] Typical intake is 2-3 meals/day includingyogurt and [place]er toast with syrup, sandwich with cheese and deli meat for lunch and meat/potatoes/vegetable for dinner. Drinks coffee with sugar and flavored creamer. Denies changes in intake, appetite or weight ASIC VERIFICATION ENGINEER. Reviewed sources of added sugar in diet [...] was able to discuss plan with provider Property Consultant Onc [phone] Pager #: [phone] * Lola Barahona MD - 08/06/2022 6:48 [...] Yellow Yellow Appearance UA Clear Clear Spec Maple UA 1.005 - 1.030 1.011 pH UA [...] of opioid dependence ??? Ordered for dilaudid TELEGRAPH LINEMAN due to patient discomfort and NG tube [...] LR continued at 100 mL/hr and dilaudid TELEGRAPH LINEMAN in use. Patient sleeping between nursing care. [...] Fluids restarted. Suppository given. Controlling pain with TELEGRAPH LINEMAN pump. * Jeannine Amos OT - 08/05/2022 [...] up as able and when appropriate. Pager: [phone] Jeannine Amos OT 08/05/2022 Occupational Therapy Rehabilitation [...] into upper-abdominal tightness overnight followed by vomiting. Hope warm earlier but no fever or chills. [...] to her uncontrolled pain. Discussed with pharmacist business analysis consultant- okay to treat with 1x dose metoprolol [...] endoscopy - NPO hold meds - 18 [place]er NGT placed to 58cm with >1L output. [...] torsion present Significant 24 hour events: 3 AM: Incision dressing has scant dried drainage unchanged from yesterday, otherwise intact. Sat in chair today. Abdominal binder used with ambulation. Walked to pod 1 and back with 1 assist and walker. Dilaudid TELEGRAPH LINEMAN discontinued and started on PO oxycodone - [...] MAMMOPLASTY, EVA performed by DEMETRA SOMMERS at [facility] MAIN OR ??? PRO LAP, DIAGNOSTIC ABDOMEN Left 08/02/2022 LAPAROSCOPY, DIAGNOSTIC, ABDOMEN (WRVU 5.14) performed by Antonio Rojas MD at [facility] MAIN OR ??? PRO REMOVAL OF OVARY/TUBE(S) Left 08/02/2022 @[place]-OOPHORECTOMY, UNILATERAL OR EVA (WRVU 12.16) performed by Antonio Rojas MD at [facility] MAIN OR Active Non-Hospital Problems Diagnosis [...] for thoracic compression fracture per neurosurgery Lines: SHEY fournier Activity Orders: up with assistance Mobility and [...] outlinedin this evaluation. Time IN / OUT: 3478-2384 Total Minutes, Physical Therapy: 37 Dawn Fung PT Pager: [phone] Physical Therapy Inpatient Rehabilitation Department * Nevaeh [...] MAMMOPLASTY, EVA performed by DEMETRA SOMMERS at [facility] MAIN OR ??? PRO LAP, DIAGNOSTIC ABDOMEN Left 08/02/2022 LAPAROSCOPY, DIAGNOSTIC, ABDOMEN (WRVU 5.14) performed by Antonio Rojas MD at [facility] MAIN OR ??? PRO REMOVAL OF OVARY/TUBE(S) Left 08/02/2022 @SALPINGO-OOPHORECTOMY, UNILATERAL OR EVA (WRVU 12.16) performed by Antonio Rojas MD at [facility] MAIN OR Social History: Home Setup: [...] Educated on and demonstrated adaptive techniques with cut off machine operator and sock aide. Pt doffed socks sitting EOB with supervision and cut off machine operator. Pt donned underwear seated EOB with supervision, cut off machine operator, and min cues for technique. Pt donned [...] throughout session. Pt demonstrated good carryover with cut off machine operator and sock aide for donning underwear and [...] session performed and note written with this casualty underwriter. Please do not hesitate to contact this casualty underwriter with any questions, thank you. Jeannine Amos OT Pager #[phone] Inpatient Rehabilitation * Antonio Rojas MD - [...] a 6/10 at rest. She feels the TELEGRAPH LINEMAN is helping her pain, but she finds [...] Intake/Output Summary (Last 24 hours) at 08/04/2022 3870 Last data filed at 08/04/2022 0400 Gross [...] multimodal regimen as detailed below. Will wean TELEGRAPH LINEMAN as able, and plan BIT team consult [...] #Analgesia #History of opioid dependence ??? Dilaudid TELEGRAPH LINEMAN-demand only. Plan to transition to PO medications [...] intact. Sat inchair today. Continues with Dilaudid TELEGRAPH LINEMAN - pain moderately managed. Abdominal binder used [...] multimodal regimen as detailed below. Will wean TELEGRAPH LINEMAN as able, and plan BIT team consult [...] #Analgesia #History of opioid dependence ??? Dilaudid TELEGRAPH LINEMAN- demand only. Can consider adding continuous rate [...] periods of time to gather supplies. Dilaudid TELEGRAPH LINEMAN in use and continued on scheduled toradol [...] has abdominal pain and is using a TELEGRAPH LINEMAN but denies any leg pain now, though [...] PRN. Gloria Hdz MD 08/03/2022 3:29 AM [facility] Neurosurgery Inpatient Pager: #[phone] Personal Pager: #[phone] * Antonio Rojas MD - 08/03/2022 1:22 AM EST Property Consultant Oncology - Progress Note Katheryn Carranza is [...] immediately post-operatively. Though endorsing minimal effect from TELEGRAPH LINEMAN analgesia, exam findings are overall reassuring against pain that is ndh-id-wccldmwwhu to what is expected post-operatively and she is able to sleep comfortably. We discussed continued trial of demand-only TELEGRAPH LINEMAN, but can consider a continuous rate if needed given history of opioid dependence. Please see systems based plan below: Neuro:??Presenting concern was progressive bilateral lower extremity numbness, find to have a left paracentral disc herniation at L5/S1 as well as fracture at T12. #Bilateral lower extremity numbness ??? Neurosurgery consulted, appreciate continued recommendations #Analgesia #History of opioid dependence ??? Dilaudid TELEGRAPH LINEMAN- demand only. Can consider adding continuous rate [...] per protocol ??? Neurology consulted ??? Dilaudid TELEGRAPH LINEMAN, Tylenol, toradol ??? Home tizanidine, flexeril continued [...] ?? Patient discussed with Dr. Rojas, attending Property Consultant Oncologist. ?? Angely Scruggs MD PGY-4 08/02/22 [...] 07/29/21, she presented to the ED at [facility]. She had a CTAP demonstrating a 15cm complex left adnexal mass. She also had a CT spine performed without acute findings. Patient was dispositioned to outpatient follow-up with Property Consultant Oncology at [facility]. Tonight, she reports worsening pain in [...] family. Social History and Habits: lives in [place], [place]. 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 Dilaudid TELEGRAPH LINEMAN, Tylenol, toradol ??? Home tizanidine, flexeril continued [...] seen and discussed with Dr. Rojas, attending Property Consultant Oncologist. Bubba Schroeder MD PGY-3 08/02/2022 I [...] of ED course: ED Course as of 08/02/22722Aug 02, 2022 0220 15 cm left ovarian mass presenting with low back pain and radiculopathy. Mass was found at [facility]SHrecently. Her pain has been severe. Property Consultant has not formally evaluated yet. Gynecology has [...] The patient presented at that time to [place] where she had CT of the chest, [...] Patient signed out to oncoming team awaiting INFORMATION SYSTEMS OPERATOR pelvic exam, further pain control, and MRI [...] abd on the left. Was seen at [facility] ED and CTs of abd and L spine were done. 15cm left ovarian mass identified. Has only a right kidney from . Ultrasound done at [facility] showed a large cyst. Was referred[facility] for further care as her pain [...] Leukocytes UA Negative Appearance UA Clear Spec Maple UA 1.004 (L) Color UA Yellow Culture [...] Validity Result Value T&S only valid at [facility] Hosp Property Consultant consult for right ovarian mass with intractable pain. She also has significant back pain and needs evaluation to determine if this represents metastasis from undiagnosed cancer Assessment/plan: Pelvic mass with intractable pain Admission to lcac radar operator/navigator Oumou Villar MD 08/02/22 0858 * Thom [...] 61 y.o. female currently admitted to the Property Consultant Onc service s/p diagnostic lap converted to [...] PLATELET 285 286 Recent Labs 08/06/22 0518 08/04/22 2324 08/01/22 [...] General Surgery will sign off. Please page [phone] with any questions. Faiza Huang MD General Surgery PGY-2 08/06/2022 11:32 AM * Consult Note - [facility]land [facility] - 08/05/2022 12:10 PM EST DEAN (Behavioral Intervention Team) [facility] checked in with patient briefly. She talked about yesterday's experience and her concern about her GI system. Patient having visit with family, so BIT will return at a later time. Tosin Bland MA, [facility] Mental [facility] - DEAN (Behavioral Intervention Team) Dept. of Psychiatry - Inpatient Psych. Services Pager: [phone] * Consult Note - Sarah Reed MD - 08/05/2022 7:43 AM EST Images from the original note were not included. DIVISION OF GASTROENTEROLOGY & HEPATOLOGY INITIAL CONSULT REQUESTING PROVIDER: Antonio Rojas MD NAME: Katheryn Carranza : 1960 HPI: Katheryn Carranza 61 y.o./ w/ PMH of Depression/Anxiety, HTN, opiate dependence adm 08/01/2022 9:16 PM to the Property Consultant-Onc service for surgical management of complex adnexal mass. GI is consulted for concern of GOO. Per chart review, the patient presented to OSH on 07/29 where she had a CTAP that showed 15cm complex left adnexal mass. She was sent home with lcac radar operator/navigator onc f/u. She then developed worsening abdominal [...] MAMMOPLASTY, EVA performed by DEMETRA SOMMERS at [facility] MAIN OR ??? PRO LAP, DIAGNOSTIC ABDOMEN Left 08/02/2022 LAPAROSCOPY, DIAGNOSTIC, ABDOMEN (WRVU 5.14) performed by Antonio Rojas MD at [facility] MAIN OR ??? PRO REMOVAL OF OVARY/TUBE(S) Left 08/02/2022 @SALPINGO-OOPHORECTOMY, UNILATERAL OR EVA (WRVU 12.16) performed by Antonio Rojas MD at [facility] MAIN OR SOCIAL HX: Social History [...] dihydroergotamine (MIGRANAL) 0.5 mg/pump act. (4 mg/mL) Hooper, Non-Aerosol One spray per nostril, while holding [...] [91 %-97 %] 08/04 07 - 08/05 07 In: 3864 [P.O.:1960; I.V.:1904] Out: 4600 [Urine:3850] [...] 23 CALCIUM 9.2 9.2 HEPATIC: Recent Labs 08/04/22232308/01/222214 BILITOT 0.3 0.2 BILIDIR -- 0.1 ALKPHOS [...] who have questions please contact the health residential care facility manager that requested your imaging first. Electronically signed by: Reymundo Fischer MD, [facility] ([phone]), at 08/05/2022 3:[address] Abdomen & [...] who have questions please contact the health residential care facility manager that requested your imaging first. Electronically signed by: Reymundo Fischer MD, [facility] ([phone]), at 08/05/2022 12:23 AM MRI Lumbar Spine [...] who have questions please contact the health residential care facility manager that requested your imaging first. Electronically signed by: Devin Mario Do, [facility] ([phone]), at 08/02/2022 5:08 PM MRI Thoracic Spine [...] who have questions please contact the health residential care facility manager that requested your imaging first. Electronically signed by: Devin Mario Do [facility] ([phone]), at 08/02/2022 5:08 PM Request For 2nd [...] who have questions please contact the health residential care facility manager that requested your imaging first. Electronically signed by: Angel Baker DO [facility] ([phone]), at 08/02/2022 8:41 AM Request For 2nd [...] who have questions please contact the health residential care facility manager that requested your imaging first. Electronically signed by: Angel Rodriguez [facility] ([phone]), at 08/02/2022 8:25 AM Request for 2nd [...] who have questions please contact the health residential care facility manager that requested your imaging first. Electronically signed by: Sandra Henderson MD, [facility] ([phone]), at 08/02/2022 10:18 AM Film Library- Storage Only Ultrasound Study Final Result Film Library- Storage Only CT Spine Final Result Film Library- Storage Only CT Chest Abdomen Pelvis Final Result ENDOSCOPY: Reports and images personally reviewed in [facility] OSH RECORDS: Obtained and personally reviewed ASSESSMENT & PLAN: Katheryn Carranza 61 y.o./ w/ PMH of Depression/Anxiety, HTN, opiate dependence adm to the Property Consultant-Onc service for surgical management of complex adnexal [...] Reed MD PGY-4, Gastroenterology Associated attestation - oDnnie Obrien MD - 08/05/2022 6:56 PM EST [...] them as documented. Donnie Obrien MD, [facility] Industrial Engmanager talent acquisition Section of Gastroenterology and Hepatology * Consult Note - Jf Hawk MD - 08/05/2022 5:38 AM EST ACUTE CARE SURGERY INPATIENT CONSULT NOTE Patient ID: Patient Name: Katheryn Carranza : 1960 Admit Date: 08/01/2022 9:16 PM Hospital Day: 3 History of Present Illness: Katheryn Carranza is a 61 y.o. female currently admitted to the Property Consultant Onc service s/p diagnostic lap converted to [...] MAMMOPLASTY, EVA performed by DEMETRA SOMMERS at [facility] MAIN OR ??? PRO LAP, DIAGNOSTIC ABDOMEN Left 08/02/2022 LAPAROSCOPY, DIAGNOSTIC, ABDOMEN (VU 5.14) performed by Antonio Rojas MD at [facility] MAIN OR ??? PRO REMOVAL OF OVARY/TUBE(S) Left 08/02/2022 @SALPINGO-OOPHORECTOMY, UNILATERAL OR EVA (WRVU 12.16) performed by Antonio Rojas MD at [facility] MAIN OR Medications: ??? acetaminophen 1,000 [...] dihydroergotamine (MIGRANAL) 0.5 mg/pump act. (4 mg/mL) Hooper, Non-Aerosol One spray per nostril, while holding [...] who have questions please contact the health residential care facility manager that requested your imaging first. Electronically signed by: Angel Baker DO, [facility] ([phone]), at 08/02/2022 8:41 AM Request For 2nd [...] who have questions please contact the health residential care facility manager that requested your imaging first. Electronically signed by: Angel Rodriguez [facility] ([phone]), at 08/02/2022 8:25 AM Request for 2nd [...] who have questions please contact the health residential care facility manager that requested your imaging first. Electronically signed by: Sandra Henderson MD, [facility] ([phone]), at 08/02/2022 10:18 AM MRI Lumbar Spine [...] who have questions please contact the health residential care facility manager that requested your imaging first. Electronically signed by: Devin Mario Do [facility] ([phone]), at 08/02/2022 5:08 PM MRI Thoracic Spine [...] who have questions please contact the health residential care facility manager that requested your imaging first. Electronically signed by: Devin Mario Do [facility] ([phone]), at 08/02/2022 5:[address] Abdomen & [...] who have questions please contact the health residential care facility manager that requested your imaging first. Electronically signed by: Reymundo Fischer MD, [facility] ([phone]), at 08/05/2022 12:23 AM XR Abdomen 1 [...] who have questions please contact the health residential care facility manager that requested your imaging first. Electronically signed by: Reymundo Fischer MD, [facility] ([phone]), at 08/05/2022 3:21 AM Assessment: Katheryn Carranza [...] with attending surgeon Dr. Hawk. Please page [phone] with questions. Arnav Singh Jr, MD General [...] MD * Consult Note - Tosin Bland [facility] - 08/03/2022 2:45 PM EST BIT [...] OUD and MAT 2. Will involve DEAN MENSAHN or MD if patient wants to talk more specifically about MAT and if team wants to consult about MAT initiation Outstanding Discharge Needs: Other: TBD Time spent with the patient (min):25 minutes Time spent on case coordination (min): 15 minutes Tosin Bland MA, [facility] - BIT (Behavioral Intervention Team) Dept. of Psychiatry - Inpatient Psych. Services Pager: [phone] * Initial Assessments - Ava Rogers RN [...] Environment: Others in the home: spouse (4 [place] shepards). Current Living Arrangements: home/apartment/condo. Accessibility Concerns:2 level log home (4 REGINO without rails) or 6 REGINO with rails); bedroom on 2nd level [address] Resource / Environmental Concerns: Resource/Environmental Concerns: none Current DME: none (Friend has given her a FWW to use if needed) Home Address confirmed as: [address] [place] [id number] Social & Family Supports: All names listed below confirmed with patient as current and correct Extended Emergency Contact Information Primary Emergency Contact: Prieto Carranza Address: [address] [place] [phone] [facility] Relation: Spouse Secondary Emergency Contact: [place] [address] [facility] Relation: Child Current Care Provided by: [...] Insurance: N/A ; Prescription Coverage: No ([facility] and [facility]) Preferred Pharmacy: [id number] - [address] [address] [place] Status: Patient is a : No Primary Care Provider confirmed: Lena Womack, NUTRITION AIDES TEACHER [phone] Patient/Caregiver Goals of Treatment: Pain control Potential Needs for Transition of Care: none Agency Referrals: n/a Transportation: no concerns Transportation Anticipated: family or friend will provide Concerns to be Addressed: no discharge needs identified Assessment: Patient is admitted to INFORMATION SYSTEMS OPERATOR service for POD#1 s/p diagnostic laparoscopy, converted [...] mg/mL) in sodium chloride 0.9% 50 mL TELEGRAPH LINEMAN infusion syringe Intravenous TELEGRAPH LINEMAN Only Bubba Schroeder MD 50 mg at 08/02/222124 ??? diphenhydrAMINE (Benadryl) (50 mg/mL) injection 25 mg 25 mg Intravenous Q30 Min PRN Bubba Schroeder MD ??? TELEGRAPH LINEMAN wood Intravenous Continuous PRN Bubba Schroeder MD ??? HYDROmorphone (mg) TELEGRAPH LINEMAN shift total and Settings verification Intravenous 2 Times Daily- TELEGRAPH LINEMAN Shift Total Bubba Schroeder MD ??? enoxaparin (Lovenox) (40 mg/0.4 mL) subcutaneous injection 40 mg 40 mg Subcutaneous Nightly Bubba Schroeder MD Home Medications: No current facility-administered medications on file prior to encounter. Current Outpatient Medications on File Prior to Encounter Medication Sig Dispense Refill ??? dihydroergotamine (MIGRANAL) 0.5 mg/pump act. (4 mg/mL) Hooper, Non-Aerosol One spray per nostril, while holding [...] by mouth nightly. ??? Miscellaneous Medical Supply [facility] Bilateral wrist splints for CTS 2 each [...] MAMMOPLASTY, EVA performed by DEMETRA SOMMERS at [facility] MAIN OR Allergies: Allergies Allergen Reactions [...] - 08/03 0700 In: 1698.7 [I.V.:1698.7] Out: 1804 [Urine:1795] General: Appears stated age, appears in [...] Flexor digitorum profundus Digit II-V flexion / pipe straightener 5 5 L2-3 Iliopsoas Hip flexion 5 [...] 0.1 Last Ca, Mg, Phos Recent Labs 02/26/23 2215 CALCIUM 9.2 Diagnostic Tests and Imaging: [...] who have questions please contact the health residential care facility manager that requested your imaging first. Electronically signed by: Angel Baker DO, [facility] ([phone]), at 08/02/2022 8:41 AM Request For 2nd [...] who have questions please contact the health residential care facility manager that requested your imaging first. Electronically signed by: Angel Rodriguez [facility] ([phone]), at 08/02/2022 8:25 AM Request for 2nd [...] who have questions please contact the health residential care facility manager that requested your imaging first. Electronically signed by: Sandra Henderson MD, [facility] ([phone]), at 08/02/2022 10:18 AM MRI Lumbar Spine [...] who have questions please contact the health residential care facility manager that requested your imaging first. Electronically signed by: Devin Mario Do, [facility] ([phone]), at 08/02/2022 5:08 PM MRI Thoracic Spine [...] who have questions please contact the health residential care facility manager that requested your imaging first. Electronically signed by: Devin Mario Do, [facility] ([phone]), at 08/02/2022 5:08 PM Assessment: Katheryn Carranza [...] Rojas MD - 08/02/2022 6:34 PM EST [facility] Operative Note Patient Name: Katheryn Carranza : [id number] MR#: [id number] Case Date: 08/02/2022 Surgeon: Surgeon(s) and Role: [...] pelvis, with the findings noted above. A [facility] re tractor was assembled and used [...] Booker MD - 08/02/2022 12:42 PM EST [facility] Neurosurgery Consultation Note Date & Time of Consult: 08/02/2022 1207 Referring Service: Property Consultant Onc Referring Attending: Antonio Rojas MD Neurosurgery Attending: Dr. Duenas Place of Consult: ED22/MRI [place] ID: Name: Katheryn Carranza, 61 y.o. female Admission Date: 08/01/2022 Reason for consult/CC: Left paracentral L5/S1 disc herniation HPI: This is a 61 y.o. RIGHT-handed female with a PMH of tobacco abuse, HTN, chronic neck pain who presented to [facility] with c/o progressive back pain x3 [...] of days without benefit. She presented to [facility] ED on 07/29/2022 due to progression of this pain wrapping around to her abdomen mony CT of her abdomen and pelvis as well as a CT of her spine was obtained. As the pain continued to progress she presented to [facility] ED yesterday 08/01 and second reads [...] MAMMOPLASTY, EVA performed by DEMETRA SOMMERS at [facility] MAIN OR Medications: No current facility-administered medications on file prior to encounter. Current Outpatient Medications on File Prior to Encounter Medication Sig Dispense Refill ??? dihydroergotamine (MIGRANAL) 0.5 mg/pump act. (4 mg/mL) Hooper, Non-Aerosol One spray per nostril, while holding [...] by mouth nightly. ??? Miscellaneous Medical Supply [facility] Bilateral wrist splints for CTS 2 each [...] ??? lidocaine 1 patch Transdermal Daily ??? TELEGRAPH LINEMAN shift total and Settings verification Intravenous 2 Times Daily- TELEGRAPH LINEMAN Shift Total ??? amitriptyline 100 mg Oral [...] who have questions please contact the health residential care facility manager that requested your imaging first. Electronically signed by: Angel Baker DO, [facility] ([phone]), at 08/02/2022 8:41 AM Request For 2nd [...] who have questions please contact the health residential care facility manager that requested your imaging first. Electronically signed by: Angel Rodriguez [facility] ([phone]), at 08/02/2022 8:25 AM Request for 2nd [...] who have questions please contact the health residential care facility manager that requested your imaging first. Electronically signed by: Sandra Henderson MD, [facility] ([phone]), at 08/02/2022 10:18 AM Assessment: This is a 61 y.o. RIGHT-handed female not on antiplatelet/anticoagulants with a PMH of tobacco abuse, HTN, chronic neck pain who presented to [facility] with c/o progressive back pain x3 [...] dihydroergotamine (MIGRANAL) 0.5 mg/pump act. (4 mg/mL) Hooper, Non-Aerosol One spray per nostril, while holding [...] by mouth nightly. ??? Miscellaneous Medical Supply [facility] Bilateral wrist splints for CTS 2 each [...] dihydroergotamine (MIGRANAL) 0.5 mg/pump act. (4 mg/mL) Hooper, Non-Aerosol One spray per nostril, while holding [...] by mouth nightly. ??? Miscellaneous Medical Supply [facility] Bilateral wrist splints for CTS 2 each [...] MAMMOPLASTY, EVA performed by DEMETRA SOMMERS at [facility] MAIN OR Allergies: Allergies Allergen Reactions [...] Flexor digitorum profundus Digit II-V flexion / pipe straightener 5 5 L2-3 Iliopsoas Hip flexion 5 [...] who have questions please contact the health residential care facility manager that requested your imaging first. Electronically signed by: Angel Rodriguez [facility] ([phone]), at 08/02/2022 8:25 AM Assessment: Katheryn Carranza [...] Therapy, Volume 87, Issue 6, 2006, Pages 801-810, [email or web address] Patient seen with Dr. Pinky Castellano MD [...] pt fell yesterday. [facility] for further care. Pt has left ovarian mass found on u/s. Pt states her legs are numb and tingly for last 2 days. Pt restless in wc, appears in discomfort. HPI (Adult) Stated Reason for Visit: I have sciatica and back pain, so I went to [facility] tuesday and they said I have [...] TO PATHOLOGY Routine 08/02/2022 7:39 PM EST NON-INFORMATION SYSTEMS OPERATOR FINAL REPORT Routine 08/02/2022 7:07 PM EST CYTOPATHOLOGY NON-GYNECOLOGICAL Routine 08/02/2022 7:07 PM EST Removal Of Ovary/Tube(S) (30984) 08/02/2022 5:52 PM EST left adnexal mass Lap, Diagnostic Abdomen (83555) 08/02/2022 5:52 PM EST left adnexal mass [...] EST) Magnesium 0.89 0.69 - 1.07 mmol/L [facility] Blood 08/07/2022 5:16 AM EST 08/07/2022 5:27 AM EST Narrative Resulting Agency Comment Spec In Lab Antonio Rojas MD CHEMISTRY ORDERABLES [facility] [address] * (ABNORMAL) Basic Metabolic Panel (non-fasting) (08/07/2022 5:16 AM EST) Glucose 122 65 - 199 mg/dL [facility] Comment:Diabetes: >=200 mg/d L plus symptoms Blood Urea Nitrogen 9 8 - 18 mg/dL [facility] Creatinine 0.68(L) 0.70 - 1.20 mg/dL [facility] Sodium 137 135 - 145 mmol/L [facility] Potassium 3.8 3.5 - 5.0 mmol/L [facility] Comment: Please note: ??Patients with WBC >100,000 may have falsely elevated Potassium levels. ??For accurate Potassium quantification in these patients send serum separator tube (gold top) for subsequent determinations. ??Contact the Clinical Chemistry Laboratory if there are any questions. Chloride 101 98 - 107 mmol/L [facility] Carbon Dioxide 24 22 - 31 mmol/L [facility] Anion Gap 12 5 - 15 mmol/L [facility] Calcium 8.6 8.5 - 10.5 mg/dL [facility] Est Glomerular Filtration Rate 99 >=60 mL/min/1. 73 m?? [facility] Comment: This patient's estimated GFR was [...] In Lab Antonio Rojas MD CHEMISTRY ORDERABLES [facility] [address] * Lavender Tube HOLD (08/06/2022 5:18 AM EST) Lavender Hold Sample in lab. [facility] Blood Venous Draw / Unknown 08/06/2022 5:18 AM EST 08/06/2022 5:33 AM EST Oma MARSHALL HEMATOLOGY ORDERABLE S Performing Organization Address City/[facility]/ZIP Co de Phone Number [facility] [address] * Magnesium (08/06/2022 5:18 AM EST) Magnesium 0.69 0.69 - 1.07 mmol/L [facility] Blood 08/06/2022 5:18 AM EST 08/06/2022 5:33 AM EST Narrative Resulting Agency Comment Spec In Lab Antonio Rojas MD CHEMISTRY ORDERABLES Performing Organization Address [facility] Co de Phone Number [facility] [address] * (ABNORMAL) Basic Metabolic Panel (non-fasting) (08/06/2022 5:18 AM EST) Glucose 106 65 - 199 mg/dL [facility] Comment:Diabetes: >=200 mg/d L plus symptoms Blood Urea Nitrogen 10 8 - 18 mg/dL [facility] Creatinine 0.65(L) 0.70 - 1.20 mg/dL [facility] Sodium 139 135 - 145 mmol/L [facility] Potassium 3.3(L) 3.5 - 5.0 mmol/L [facility] Comment: Please note: ??Patients with WBC >100,000 may have falsely elevated Potassium levels. ??For accurate Potassium quantification in these patients send serum separator tube (gold top) for subsequent determinations. ??Contact the Clinical Chemistry Laboratory if there are any questions. Chloride 99 98 - 107 mmol/L [facility] Carbon Dioxide 26 22 - 31 mmol/L [facility] Anion Gap 14 5 - 15 mmol/L [facility] Calcium 8.9 8.5 - 10.5 mg/dL [facility] Est Glomerular Filtration Rate 100 >=60 mL/min/1. 73 m?? [facility] Comment: This patient's estimated [...] In Lab Antonio Rojas MD CHEMISTRY ORDERABLES [facility] [address] * UPPER GI ENDOSCOPY (08/05/2022 2:01 PM EST) [facility] UPPER GI ENDOSCOPY [facility] Endoscopy Procedure Date: 08/05/2022 2:01 PM ? Patient Name: Katheryn Carranza ? N: [id number] ? Date of : 1960 ? Age: 61 ? Order #: [id number] ? Instrument Name: [id number] ? Procedure: ? Upper GI endoscopy Indications: ? Vomiting Providers: ? Donnie Obrien, [employer] ? OLIVIA Caldwell, Louie Hernandez MD: ? [...] GENERAL SURGICAL ORD ERABLES Performing Organization Address City/[facility] Co de Phone Number [employer] * Urine Hold (08/05/2022 10:47 AM EST) Hold, Urine Sample in lab. [facility] Urine Urine / Unknown 08/05/2022 1 0:47 AM EST 08/05/2022 10:58 AM EST Angely Scruggs MD URINE ORDERABLES Performing Organization Address City/[facility] Co de Phone Number [facility] [address] * Urinalysis with reflex Culture (08/05/2022 10:47 AM EST) Glucose, Urine Dipstick Negative Negative mg/dL [facility] Protein, Urine Dipstick Negative Negative mg/dL [facility] Bilirubin, Urine Dipstick Negative Negative mg/dL [facility] Comment: Clinical correlation required for positive Urine Bilirubin results as false positive may occur with some drugs and drug related products. If a false positive is suspected a serum total bilirubin should be considered if clinically indicated. Urobilinogen, Urine Dipstick Normal Normal mg/dL [facility] pH, Urn (dipstick) 7.5 5.0 - 8.0 [facility] Blood, Urine Dipstick Negative Negative mg/dL [facility] Ketone, Urine Dipstick Negative Negative mg/dL [facility] Nitrite, Urine Dipstick Negative Negative [facility] Leukocytes, Urine Dipstick Negative Negative mcL [facility] Appearance, Urine Dipstick Clear Clear [facility] Specific Maple Urine Automated 1.011 1.005 - 1.030 [facility] Color, Urine Dipstick Yellow Yellow [facility] Reflex to Culture No [facility] Clean Catch Urine 08/05/2022 10:47 AM EST 08/05/2022 10:58 AM EST Narrative Resulting Agency Comment Spec In Lab Antonio Rojas MD URINE ORDERABLES [facility] [place] [address] * XR Abdomen 1 view (Generic) (08/05/2022 [...] who have questions please contact the health residential care facility manager that requested your imaging first. ? Electronically signed by: Reymundo Fischer MD, [facility] ([phone]), at 08/05/2022 3:21 AM Narrative 08/05/2022 3:21 [...] patients who have questions please contactthe health residential care facility manager that requested your imaging first. Electronically signed by: Reymundo Fischer MD[facility]([phone]), at 08/05/2022 3:21 AM Antonio Rojas MD [...] who have questions please contact the health residential care facility manager that requested your imaging first. ? Electronically signed by: Reymundo Fischer MD, [facility] ([phone]), at 08/05/2022 12:23 AM Narrative 08/05/2022 12:23 [...] Osseous Structures: Redemonstrated mild compression deformity of [id number] endplate. IMPRESSION Findings suggesting pyelonephritis of the lone RIGHT kidney. Moderate to severe gastric distention. Mild atelectasis at the included lung bases. Moderate pancolonic stool burden Thank you for letting us participate in the care of this patient. If youare a health care provider and have any questions regarding this report,please contact the number below. For patients who have questions please contactthe health residential care facility manager that requested your imaging first. Antonio Rojas MD IM CT ORDERABLES * (ABNORMAL) Hemoglobin A1c (08/04/2022 11:24 PM EST) Hemoglobin A1c 6.2(H) 4.3 - 5.6 % [facility] Comment: Reference Range: 4.3 - 5.6% [...] Mellitus, Diabetes Care 2013; 36: Suppl. 1, Y57-30 Estimated Average Glucose 130 mg/dL [facility] Comment: eAG equivalents for HbA1c percentages: [...] into estimated average glucose values. ??Diabetes Care 2008:31(8):7000-3292. Blood Venous Draw / Unknown 08/04/2022 11:24 PM EST 08/05/2022 9:39 AM EST Narrative Resulting Agency Comment Spec In Lab Oma MARSHALL CHEMISTRY ORDERABLES [facility] [address] * (ABNORMAL) Amylase (08/04/2022 11:24 PM EST) Amylase 27(L) 28 - 100 unit/L [facility] Blood Venous Draw / Unknown 08/04/2022 11:24 PM EST 08/04/2022 11:30 PM EST Narrative Resulting Agency Comment Spec In Lab Angely Scruggs MD CHEMISTRY ORDERABLES Performing Organization Address City/[facility]/ZIP Co de Phone Number [facility] [address] * Lipase (08/04/2022 11:24 PM EST) Lipase 12 0 - 60 unit/L [facility] Blood Venous Draw / Unknown 08/04/2022 11:24 PM EST 08/04/2022 11:30 PM EST Narrative Resulting Agency Comment Spec In Lab Angely Scruggs MD CHEMISTRY ORDERABLES Performing Organization Address City/[facility] Co de Phone Number [facility] [address] * (ABNORMAL) Differential, Automated (08/04/2022 11:24 PM EST) Neutrophil % 68.0 % [facility] Neutrophil Absolute 6.86(H) 1.70 - 6.10 x10(3)/mc L [facility] Lymph % 24.6 % [facility] Lymphocytes Abs 2.5 0.9 - 3.2 x10(3)/mc L [facility] Monocyte % 6.1 % [facility] Monocyte Abs 0.6 0.3 - 0.9 x10(3)/mc L [facility] Eos % 0.3 % [facility] Eosinophils Abs 0.0 0.0 - 0.4 x10(3)/mc L [facility] Basophil % 0.1 % [facility] Baso Absolute 0.0 0.0 - 0.1 x10(3)/mc L [facility] Immature Gran % 0.90 % [facility] Comment: Immature granulocytes(IG's)percentage and absolute count will include metamyelocytes, myelocytes, and promyelocytes. Blood smears from CBCs yielding IG's will be scanned manually for concordance. If this scan disagrees with the automated IG or if promyelocytes are noted, a manual differential will be performed. Immature Gran Absolute 0.09(H) 0.00 - 0.04 x10(3)/mc L [facility] Blood 08/04/2022 11:2 4 PM EST 08/04/2022 11:29 PM EST Narrative Resulting Agency Comment Spec In Lab Bubba Schroeder MD HEMATOLOGY ORDERABLE S Performing Organization Address City/[facility] Co de Phone Number [facility] [address] * (ABNORMAL) Hemogram (08/04/2022 11:24 PM EST) White Blood Cell 10.1(H) 4.0 - 9.5 x10(3)/mc L [facility] Red Blood Cell 4.22 4.00 - 5.21 x10(6)/mc L [facility] Hemoglobin 13.6 11.7 - 15.5 g/dL [facility] Hematocrit 39.1 35.7 - 45.8 % [facility] Mean Cell Volume 92.7 82.6 - 94.4 fL [facility] Mean Cell Hemoglobin 32.2(H) 27.1 - 32.0 pg [facility] Mean Cell Hemoglobin Concentration 34.8 31.7 - 35.0 g/dL [facility] Platelet 285 145 - 357 x10(3)/mc L [facility] RDW Standard Deviation 41.6 37.0 - 46.0 fL [facility] RDW coefficient of variation 12.3 11.5 - 14.1 % [facility] Mean Platelet Volume 8.7 7.6 - 12.9 fL [facility] NRBC% auto 0.0 % [facility] NRBC Absolute 0.000 0.000 - 0.000 x10(3)/mc L [facility] Blood 08/04/2022 11:2 4 PM EST 08/04/2022 11:29 PM EST Narrative Resulting Agency Comment Spec In Lab Bubba Schroeder MD HEMATOLOGY ORDERABLE S Performing Organization Address City/[facility]/ZIP Co de Phone Number [facility] [address] * CMP w/fasting Glucose (08/04/2022 11:24 PM EST) Glucose Fasting 97 65 - 99 mg/dL [facility] Comment: ?Fasting* Glucose Interpretive Criteria Normal [...] of Diabetes Mellitus, Position Statement from the [place] [employer]. ??Diabetes Care, Volume 33, Supplement 1, Jun 2009 Blood Urea Nitrogen 10 8 - 18 mg/dL [facility] Creatinine 0.70 0.70 - 1.20 mg/dL [facility] Sodium 137 135 - 145 mmol/L [facility] Potassium 3.6 3.5 - 5.0 mmol/L [facility] Comment: Please note: ??Patients with WBC >100,000 may have falsely elevated Potassium levels. ??For accurate Potassium quantification in these patients send serum separator tube (gold top) for subsequent determinations. ??Contact the Clinical Chemistry Laboratory if there are any questions. Chloride 101 98 - 107 mmol/L [facility] Carbon Dioxide 24 22 - 31 mmol/L [facility] Anion Gap 12 5 - 15 mmol/L [facility] Calcium 9.2 8.5 - 10.5 mg/dL [facility] Protein, Total 6.4 6.1 - 8.0 g/dL [facility] Albumin 3.7 3.2 - 5.2 g/dL [facility] Aspartate Aminotransferase 13 0 - 30 unit/L [facility] Alanine Aminotransferase 22 0 - 30 unit/L [facility] Alkaline Phosphatase 73 35 - 105 unit/L [facility] Bilirubin, Total 0.3 0.2 - 1.3 mg/dL [facility] Est Glomerular Filtration Rate 98 >=60 mL/min/1. 73 m?? [facility] Comment: This patient's estimated [...] In Lab Antonio Rojas MD CHEMISTRY ORDERABLES [facility] [address] * Surgical Pathology Report (08/02/2022 7:39 PM EST) Final Diagnosis [id number] ? Location: L1WD; 19; A The signing pathologist has (i) examined the relevant preparation(s) for the specimen(s) and (ii) rendered or confirmed the diagnosis(es). . 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 Electronically signed by: ?Rosaura Hernandez MD Verified: ??08/11/2022 9:33 ?? Pathologist Performed at: ??-[facility] Dept. of Pathology, [place] [address] Modeling Manager: Ernestina Valenzuela MD, FCAP, ??CLIA Certificate: [id number] DISCUSSION Definitive fallopian tube tissue was not [...] Fallopian Tube: Not grossly identified. Sections/Processi ng: Online Journalist sections in 22 cassettes as follows: ?A1-A2: Cyst wall with excrescences ?A3-A4: Online Journalist sections of fine papillary excrescences ?A5-A6: Online Journalist yellow, flat excrescences ?A7-A10: Online Journalist sections of the solid and cystic nodule, ?A11-A15: Online Journalist sections of the whorled surface nodule and ? adjacent cyst ?A16-A19: Additional cyst wall sections ?A20: Candidate left fallopian tube adhesed to nodule ?A21-A22: Online Journalist soft tissue adhesed to nodule ??vmj 08/11/2022 9:33 AM EST [facility] OVARIAN PART / Unknown 08/02/2022 7:39 PM EST 08/02/2022 7:39 PM EST Antonio Rojas MD PATHOLOGY/CYTOLOGY O LISA [facility] [address] [place] [address] * Specimen to Pathology (08/02/2022 7:39 PM EST) AP Specimen 08/02/2022 7:39 PM EST 08/02/2022 7:39 PM EST Narrative [facility] - 08/02/2022 7:39 PM EST Specimen requisition ordered. ??Separate Pathology report to follow Antonio Rojas MD PATHOLOGY/CYTOLOGY O LISA [facility] [address] * Non-Property Consultant Final Report (08/02/2022 7:07 PM EST) Diagnosis Discussion [id number] ? Location: L1WD; 19; A The signing pathologist has (i) examined the relevant preparation(s) for the specimen(s) and (ii) rendered or confirmed the diagnosis(es). . ? Non-Property Consultant Final DIAGNOSIS Negative for Malignancy Electronically signed by: ?Mark Hook MD Verified: ??08/11/2022 15:41 ??Pathologist Performed at: ??-[facility] Dept. of Pathology, [place] [address] Modeling Manager: Ernestina Valenzuela MD, FCAP, ??CLIA Certificate: [id number] DISCUSSION Pelvic wash: Mesothelial cells are present. [...] Cell Block 1. 08/11/2022 3:41 PM EST [facility] Pelvic Washing 08/02/2022 7: 07 PM EST 08/02/2022 7:07 PM EST Antonio Rojas MD PATHOLOGY/CYTOLOGY O LISA Performing Organization Address City/[facility]/ZIP Co de Phone Number [address] [place] [address] * Cytopathology Non-Gynecological (08/02/2022 7:07 PM EST) AP Specimen 08/02/2022 7:07 PM EST 08/02/2022 7:07 PM EST Narrative [facility] - 08/02/2022 7:07 PM EST Specimen requisition ordered. ??Separate Pathology report to follow Antonio Rojas MD PATHOLOGY/CYTOLOGY O LISA Performing Organization Address City/[facility] [place] [address] * MRI Thoracic Spine wwo Contrast (08/02/2022 [...] who have questions please contact the health residential care facility manager that requested your imaging first. ? Electronically signed by: Devin Mario Do, [facility] ??([phone]), at 08/02/2022 5:08 PM Narrative 08/02/2022 5:08 [...] the clinical situation (Reference- Jarvik Et Al, [id number]). Findings: (Prevalence in patients without low back [...] patients who have questions please contactthe health residential care facility manager that requested your imaging first. Electronically signed by: Devin Mario Do, [facility]([phone]), at 08/02/2022 5:08 PM Antonio Rojas MD [...] who have questions please contact the health residential care facility manager that requested your imaging first. ? Electronically signed by: Devin Mario Do, [facility] ??([phone]), at 08/02/2022 5:08 PM Narrative 08/02/2022 5:08 [...] the clinical situation (Reference- Emilyk Et Al, [id number]). Findings: (Prevalence in patients without low back [...] patients who have questions please contactthe health residential care facility manager that requested your imaging first. Electronically signed by: Devin Mario Do, [facility]([phone]), at 08/02/2022 5:08 PM Oumou Villar MD [facility] MRI ORDERABLES * Request For 2nd Read [...] who have questions please contact the health residential care facility manager that requested your imaging first. ? Electronically signed by: Angel Baker DO, [facility] ([phone]), at 08/02/2022 8:41 AM Narrative 08/02/2022 8:41 [...] pelvis was performed with intravenous contrast at [facility] on July 29, 2022. Helical [...] similar prior examination provided for comparison. FINDINGS: Program Director Images: Noncontributory. CT OF THE CHEST: Lungs [...] and pelvis was performed withintravenous contrast at [facility] on July 29, 2022. Helical CT images of the chest, abdomen, and pelvis were obtainedfollowing administration of intravenous contrast. Per report, the patient [id number] mL Omnipaque 350 intravenous contrast. Oral contrast was not administered. Multiplanar reformats were performed in the sagittal and coronal planes. Maximum Intensity Projection (MIP) images were also reformatted. COMPARISON: There is no similar prior examination provided forcomparison. FINDINGS: Program Director Images: Noncontributory. CT OF THE CHEST: Lungs [...] patients who have questions please contactthe health residential care facility manager that requested your imaging first. Oumou [...] who have questions please contact the health residential care facility manager that requested your imaging first. ? Electronically signed by: Angel Rodriguez [facility] ([phone]), at 08/02/2022 8:25 AM Narrative 08/02/2022 8:25 [...] who have questions please contact the health residential care facility manager that requested your imaging first. ? Electronically signed by: Sandra Henderson MD, [facility] ([phone]), at 08/27/2022 12:30 PM --------ORIGINAL REPORT -------- [...] who have questions please contact the health residential care facility manager that requested your imaging first. ? Electronically signed by: Sandra Henderson MD, [facility] ([phone]), at 08/02/2022 10:18 AM Addendum by Sandra [...] who have questions please contact the health residential care facility manager that requested your imaging first. ? Electronically signed by: Sandra Henderson MD, [facility] ([phone]), at 08/02/2022 10:18 AM Impressions 08/02/2022 10:18 AM EST Large cystic lesion with mural nodularity in the RIGHT adnexa highly suspicious for malignancy Thank you for letting us participate in the care of this patient. ??If you are a health care provider and have any questions regarding this report, please contact the number below. ??For patients who have questions please contact the health residential care facility manager that requested your imaging first. ? Electronically signed by: Sandra Henderson MD, [facility] ([phone]), at 08/02/2022 10:18 AM Narrative 08/02/2022 10:18 [...] adnexal mass; Sending Institution [facility]; Dateof exam [id number]; I believe a reinterpretation of this exam may alter care ofPatient. Yes; ; L adnexal mass TECHNIQUE: Images were obtained and VRE COMPARISON: CT from 07/29/2022 FINDINGS: By history the patient is status post cystectomy and LEFT nephrectomy.The images presented show a large cystic lesion in the RIGHT adnexa withperipheral nodularity. The measurements obtained were 13.7 x 11.5 by rkglnuayskixf86.8 cm. The images do not show definite [...] patients who have questions please contactthe health residential care facility manager that requested your imaging first. Electronically signed by: Sandra Henderson MD, [facility]([phone]), at 08/02/2022 10:18 AM Oumou Villar MD IMG OUTSIDE INTERPRE TATION ORDERABLES * BLOOD GAS 2 VENOUS (08/01/2022 10:23 PM EST) pH, Venous 7.36 7.32 - 7.42 [facility] PCO2, Venous 47 41 - 51 mmHg [facility] PO2, Venous 31 25 - 40 mmHg [facility] Bicarbonate, Venous 25.9 mmol/L [facility] Base Excess, Venous 0.4 mmol/L [facility] Hgb Blood Gas 14.4 11.7 - 15.5 g/dL [facility] Oxyhemoglobin, Venous 58.3 % [facility] Carboxyhemoglob in, Venous 8.9 % [facility] Comment: Nonsmokers: 0.5-1.5% COHB Smokers: Variable, but usually less than 10% Toxic: 20-30% COHB Lethal: Greater than 60% COHB Methemoglobin, Venous 0.1 <=1.5 % [facility] Na Whole Blood 137 135 - 145 mmol/L [facility] K Whole Blood 4.0 3.5 - 5.0 mmol/L [facility] Comment: Please note: Patients with WBC >100,000 may have falsely elevated Potassium levels. Contact the Clinical Chemistry Laboratory if there are any questions. ICa Whole Blood 1.21 1.15 - 1.33 mmol/L [facility] Comment: Note: ??Total bilirubin higher than 20 mg/dL may lead to falsely low ionized calcium. CL Whole Blood 100 98 - 107 mmol/L [facility] Gluc Whole Bld 95 65 - 199 mg/dL [facility] Comment:Diabetes: >=200 mg/d L plus symptoms Lactate WB 1.6 0.5 - 2.2 mmol/L [facility] Blood Gas Source Venous [facility] Blood 08/01/2022 10:2 3 PM EST 08/01/2022 10:23 PM EST Oumou Villar MD POINT OF CARE TEST O RDERABLES [facility] [place] [address] * CEA (08/01/2022 10:15 PM EST) Carcinoembryonic Antigen 2.2 <=3.8 ng/mL [facility] Comment: Reference range: ??(20-69 years): Non-smoker: ??less than or equal to 3.8 ng/mL Smoker: ??less than 5.5 ng/ml This result was generated using a Greg Lynn immunoassay. ??Results obtained from other methods or manufacturers cannot be used interchangeably with this method. Blood Venous Draw / Unknown 08/01/2022 10:15 PM EST 08/01/2022 10:36 PM EST Narrative Resulting Agency Comment Spec In Lab Ouomu Villar MD CHEMISTRY ORDERABLES Performing Organization Address City/[facility] Co de Phone Number [facility] [address] * Carbohydrate Antigen 19-9 (08/01/2022 10:15 PM EST) CA 19-9 7.1 <=35.0 u/ml [facility] Comment: This result was generated using a Greg Lynn immunoassay. ??Results obtained from other methods or manufacturers cannot be used interchangeably with this method. Blood Venous Draw / Unknown 08/01/2022 10:15 PM EST 08/01/2022 10:36 PM EST Narrative Resulting Agency Comment Spec In Lab Oumou Villar MD CHEMISTRY ORDERABLES Performing Organization Address City/[facility] Co de Phone Number [facility] [address] * (ABNORMAL) Cancer Antigen 125 (08/01/2022 10:15 PM EST) CA 125 40.8(H) <=38.1 unit/mL [facility] Comment: CA 125 Reference Interval ??Postmenopausal: [...] In Lab Oumou Villar MD CHEMISTRY ORDERABLES [facility] [address] * Type and Screen Validity (08/01/2022 10:15 PM EST) T&S only valid at [facility] LABORATORY Comment:This Type and Screen result is only valid at the [facility] Hospital Blood 08/01/2022 10:1 5 PM EST 08/01/2022 10:28 PM EST Narrative Resulting Agency Comment Spec In Lab Nai Wright MD BLOOD BANK LAB ORDER GILBERTO Performing Organization Address City/[facility]/ZIP Co de Phone Number [facility] [address] * ABORH Recheck Status (08/01/2022 10:15 PM EST) ABORH Recheck Order Order Placed [facility] ABORH Type Recheck Not Performed [facility] Blood 08/01/2022 10:1 5 PM EST 08/01/2022 10:28 PM EST Narrative Resulting Agency Comment Spec In Lab Nai Wright MD BLOOD BANK LAB ORDER GILBERTO Performing Organization Address City/[facility]/ZIP Co de Phone Number [facility] [address] * Gold Tube HOLD (08/01/2022 10:15 PM EST) Gold Hold Sample in lab. [facility] Blood Venous Draw / Unknown 08/01/2022 10:15 PM EST 08/01/2022 10:29 PM EST Nia Wright MD CHEMISTRY ORDERABLES Performing Organization Address City/[facility]/ZIP Co de Phone Number [facility] [address] * (ABNORMAL) Differential, Automated (08/01/2022 10:15 PM EST) Neutrophil % 65.2 % [facility] Neutrophil Absolute 8.26(H) 1.70 - 6.10 x10(3)/ L [facility] Lymph % 26.2 % [facility] Lymphocytes Abs 3.3(H) 0.9 - 3.2 x10(3)/ L [facility] Monocyte % 6.9 % [facility] Monocyte Abs 0.9 0.3 - 0.9 x10(3)/ L [facility] Eos % 0.6 % [facility] Eosinophils Abs 0.1 0.0 - 0.4 x10(3)/[facility] Basophil % 0.1 % [facility] Baso Absolute 0.0 0.0 - 0.1 x10(3)/[facility] Immature Gran % 1.00 % [facility] Comment: Immature granulocytes(IG's)percentage and absolute count will include metamyelocytes, myelocytes, and promyelocytes. Blood smears from CBCs yielding IG's will be scanned manually for concordance. If this scan disagrees with the automated IG or if promyelocytes are noted, a manual differential will be performed. Immature Gran Absolute 0.13(H) 0.00 - 0.04 x10(3)/ L [facility] Blood 08/01/2022 10:1 5 PM EST 08/01/2022 10:29 PM EST Narrative Resulting Agency Comment Spec In Lab Nai Wright MD HEMATOLOGY ORDERABLE S [facility] [place] [address] * (ABNORMAL) Hemogram (08/01/2022 10:15 PM EST) White Blood Cell 12.6(H) 4.0 - 9.5 x10(3)/ L [facility] Red Blood Cell 4.25 4.00 - 5.21 x10(6)/mc L [facility] Hemoglobin 13.7 11.7 - 15.5 g/dL [facility] Hematocrit 39.3 35.7 - 45.8 % [facility] Mean Cell Volume 92.5 82.6 - 94.4 fL [facility] Mean Cell Hemoglobin 32.2(H) 27.1 - 32.0 pg [facility] Mean Cell Hemoglobin Concentration 34.9 31.7 - 35.0 g/dL [facility] Platelet 286 145 - 357 x10(3)/mc L [facility] RDW Standard Deviation 43.4 37.0 - 46.0 fL [facility] RDW coefficient of variation 12.6 11.5 - 14.1 % [facility] Mean Platelet Volume 9.2 7.6 - 12.9 fL [facility] NRBC% auto 0.0 % [facility] NRBC Absolute 0.000 0.000 - 0.000 x10(3)/ L [facility] Blood 08/01/2022 10:1 5 PM EST 08/01/2022 10:29 PM EST Narrative Resulting Agency Comment Spec In Lab Nai Wright MD HEMATOLOGY ORDERABLE S [facility] [address] * Antibody screen (08/01/2022 10:15 PM EST) Ab Screen Interp Negative [facility] Expires at 2359 on: 08/04/2022 [facility] Blood 08/01/2022 10:1 5 PM EST 08/01/2022 10:28 PM EST Narrative Resulting Agency Comment Spec In Lab Nai Wright MD BLOOD BANK LAB ORDER GILBERTO [facility] [address] * ABO/Rh Typing (08/01/2022 10:15 PM EST) ABORH Type O Pos [facility] Blood 08/01/2022 10:1 5 PM EST 08/01/2022 10:28 PM EST Narrative Resulting Agency Comment Spec In Lab Nai Wright MD BLOOD BANK LAB ORDER GILBERTO Performing Organization Address [facility] Phone Number [facility] [address] * Lipase (08/01/2022 10:15 PM EST) Lipase 11 0 - 60 unit/L [facility] Blood 08/01/2022 10:1 5 PM EST 08/01/2022 10:29 PM EST Narrative Resulting Agency Comment Spec In Lab Oumou Villar MD CHEMISTRY ORDERABLES Performing Organization Address [facility] Number [facility] [address] * Hepatic Function Panel (08/01/2022 10:15 PM EST) Protein, Total 7.2 6.1 - 8.0 g/dL [facility] Albumin 4.4 3.2 - 5.2 g/dL [facility] Aspartate Aminotransferase 13 0 - 30 unit/L [facility] Alanine Aminotransferase 23 0 - 30 unit/L [facility] Alkaline Phosphatase 84 35 - 105 unit/L [facility] Bilirubin, Total 0.2 0.2 - 1.3 mg/dL [facility] Bilirubin, Direct 0.1 0.0 - 0.3 mg/dL [facility] Blood 08/01/2022 10:1 5 PM EST 08/01/2022 10:29 PM EST Narrative Resulting Agency Comment Spec In Lab Oumou Villar MD CHEMISTRY ORDERABLES Performing Organization Address [facility] de Phone Number [facility] [address] * Basic Metabolic Panel (non-fasting) (08/01/2022 10:15 PM EST) Glucose 93 65 - 199 mg/dL [facility] Comment:Diabetes: >=200 mg/d L plus symptoms Blood Urea Nitrogen 13 8 - 18 mg/dL [facility] Creatinine 0.78 0.70 - 1.20 mg/dL [facility] Sodium 136 135 - 145 mmol/L [facility] Potassium 4.1 3.5 - 5.0 mmol/L [facility] Comment: Please note: ??Patients with WBC >100,000 may have falsely elevated Potassium levels. ??For accurate Potassium quantification in these patients send serum separator tube (gold top) for subsequent determinations. ??Contact the Clinical Chemistry Laboratory if there are any questions. Chloride 101 98 - 107 mmol/L [facility] Carbon Dioxide 23 22 - 31 mmol/L [facility] Anion Gap 12 5 - 15 mmol/L [facility] Calcium 9.2 8.5 - 10.5 mg/dL [facility] Est Glomerular Filtration Rate 86 >=60 mL/min/1. 73 m?? [facility] Comment: This patient's estimated GFR was [...] In Lab Oumou Villar MD CHEMISTRY ORDERABLES [facility] [place] [address] * (ABNORMAL) Urinalysis with reflex Culture (08/01/2022 10:10 PM EST) Glucose, Urine Dipstick Negative Negative mg/dL [facility] Protein, Urine Dipstick Negative Negative mg/dL [facility] Bilirubin, Urine Dipstick Negative Negative mg/dL [facility] Comment: Clinical correlation required for positive Urine Bilirubin results as false positive may occur with some drugs and drug related products. If a false positive is suspected a serum total bilirubin should be considered if clinically indicated. Urobilinogen, Urine Dipstick Normal Normal mg/dL [facility] pH, Urn (dipstick) 6.5 5.0 - 8.0 [facility] Blood, Urine Dipstick Negative Negative mg/dL [facility] Ketone, Urine Dipstick Negative Negative mg/dL [facility] Nitrite, Urine Dipstick Negative Negative [facility] Leukocytes, Urine Dipstick Negative Negative mcL [facility] Appearance, Urine Dipstick Clear Clear [facility] Specific Maple Urine Automated 1.004(L) 1.005 - 1.030 [facility] Color, Urine Dipstick Yellow Yellow [facility] Reflex to Culture No [facility] Urine 08/01/2022 10:1 0 PM EST 08/01/2022 10:29 PM EST Narrative Resulting Agency Comment Spec In Lab Oumou Villar MD URINE ORDERABLES Performing Organization Address City/State/[facility] Co de Phone Number [facility] [address] * Film Library- Storage Only Ultrasound Study (07/30/2022 12:00 AM EST) Narrative Dicom, Auditing User - 08/01/2022 9:52 PM EST This exam is auto-finalizing. It's purpose is for storage only. Kayleigh CHATTERJEE FILM LIBRARY ORD ERABLES * Film Library- Storage Only CT Spine (07/29/2022 12:05 AM EST) Narrative Dicom, Auditing User - 08/01/2022 9:53 PM EST This exam is auto-finalizing. It's purpose is for storage only. Kayleigh CHATTERJEE FILM LIBRARY ORD ERABLES * Film Library- Storage Only CT Chest Abdomen Pelvis (07/29/2022 12:00 AM EST) Narrative Dicom, Auditing User - 08/01/2022 9:51 PM EST This exam is auto-finalizing. It's purpose is for storage only. Kayleigh Goldsmith IM FILM LIBRARY ORD ERABLES documented in this [...] Until 08/08/22 at 1739, Muscle spasms, Routine enoxaparin (Lovenox) [...] PRN, Starting on 08/07/22 at 1940, Until Tue08/08/22 at 1739, Pain, [...] - 1:100,000) injection ONCE PRN, Starting on Tue08/02/22 at 1911, Until Tue08/08/22 at 1739, Intra-Operative (Intra-Procedure), Routine Given 08/02/2022 [...] Intravenous, EVERY 8 HOURS PRN, Starting on [facility] 08/05/22 at 0700, Until 08/08/22 at 1739, [...] Intravenous, 2 TIMES DAILY, First dose on 08/02/22 at 2100, Until Discontinued, Routine Given 08/08/2022 [...] No 1515 (Given - Provider: Herlinda Flores, RN)2127 (Given - Provider: Tosin Mcknight, RN) [...] Routine 09 (Given - Provider: Jazlyn Hahn RN)1430 (Not Given - Provider: Jazlyn Hahn RN - Reason: Patient/family refused)2039 (Given - Provider: Hazel Tadeo, OLIVIA) 0408 (Given - Provider: Surendra Cassidy RN)0918 (Given - Provider: Keyla Treoj, OLIVIA)1353 (Given - Provider: Keyla Trejo, OLIVIA) [...] 09 (Given - Provider: Jazlyn Hahn RN) 0919 (Given - Provider: Keyla Trejo, OLIVIA) diphenhydrAMINE (Benadryl) (50 mg/mL) injection 25 mg (COMPLETED) 25 mg, Intravenous, ONCE, 1 dose, On Tue08/06/22 at 0415, Routine 0327 (Given - Provider: Tosin Mcknight, OLIVIA) enoxaparin (Lovenox) (40 mg/0.4 mL) subcutaneous injection 40 mg 40 mg, Subcutaneous, NIGHTLY, First dose on Tue08/03/22 at 2100, Until Discontinued, Routine 2128 (Given - Provider: Tosin Mcknight RN) 204 (Given - Provider: Hazel Tadeo RN) hydrALAZINE [...] Herlinda Flores RN)2245 (Given - Provider: Tosin Mcknight RN) 0448 [...] back)2130 (Patch Removed - Provider: Tosin Mcknight, OLIVIA) 0849 (Not Given - Provider: Jazlyn Hahn [...] Mcknight RN) 0242 (Given - Provider: Tosin Mcknight, [...] RN) 1730 (Patch Removed - Provider: Hazel N Normandin, RN) nicotine (Nicoderm CQ) 21 mg/24 hr [...] on Teresa 08/05/22 at 0900, Until Discontinued 0844 (Given - [...] Routine 0910 (Not Given - Provider: Jazlyn Hahn RN - Reason: Patient/family refused) 0918 (Given [...] Routine 0851 (Given - Provider: Herlinda Flores, OLIVIA)2134 (Given - Provider: Tosin Mcknight, OLIVIA) 09 (Given - Provider: Jazlyn Hahn, RN)2039 [...] (New Bag - Provider: Herlinda Flores, RN) 2043 (New Bag - Provider: Tosin Mcknight, RN)0910 (Stopped - Provider: Jazlyn Hahn, RN) HYDROmorphone (Dilaudid) (1 mg/mL) in sodium chloride 0.9% 50 mL TELEGRAPH LINEMAN infusion syringe (CANCELED) Intravenous, TELEGRAPH LINEMAN ONLY, Starting on Teresa 08/05/22 at 1200, Until 08/08/22 at 0739 1850 (New Syringe/Cartridge - Provider: Usha Rosario RN) 0739 (Stopped - Provider: Jazlyn Hahn, RN) PRN Medication Order 08/06/2022 08/07/2022 08/08/2022 cyclobenzaprine [...] Nebulization, EVERY 4 HOURS PRN, Starting on 08/03/22 at 1058, Until 08/08/22 at 1739, Wheezing, [...] Routine documented in this encounter Care Teams Gas Operator Relationship Specialty Start Date End Date Lena Womack, NUTRITION AIDES TEACHER PCP - General Family Medicine 08/02/22 04/07/24 documented as of this encounter
--- OUTSIDE RECORDS SUMMARY | 2024-06-21 20:10 | XMS_ITS | Encounter Summary ---
Author Organization [facility] [place] [address] Care Team Providers Care Primer Inserting Machine Operator Name Role Phone Sailaja Ross APRN Primary Care Provider [phone] Encounter Details Date Type Department Care Team (Late st Contact Info) Description 07/29/2022 12:05 AM EST Ancillary Procedure Radiology Library at [facility] [place] [id number] Social History Tobacco Use Types Packs/Day Years [...] purpose is for storage only. Kayleigh Goldsmith [facility] FILM LIBRARY ORD ERABLES documented in this encounter Visit Diagnoses Not on filedocumented in this encounter Care Teams Primer Inserting Machine Operator Relationship Specialty Start Date End Date Sailaja Ross APRN PCP - General Family Medicine 01/24/17 07/31/22 documented as of this encounter
--- OUTSIDE RECORDS SUMMARY | 2024-06-21 20:10 | XMS_ITS | Encounter Summary ---
[place] [address] Care Team Providers Care Production Repairer Name Role Phone Lena Womack APRN Primary Care Provider [phone] Reason for Referral * Consultation (Urgent) - Closed Specialty Diagnoses / Procedures Referred By Cosmo cortez Referred To Contact Gynecology Oncology Diagnoses Adnexal mass Abdominal distension Sherie Alonzo DO [address] [place] [address] [place] [address] [facility] Workers Compensation Legal Secretary [address] [place] [id number] Referral ID Status Reason Start Date Expiration Date V isits Requested Visits Authorized [id number] Closed Consult, Test & Treat PCP Updated and/or Approved 08/02/2022 08/02/2023 6 6 Encounter Details Date Type Department Care Team (Late st Contact Info) Description 08/02/2022 Transcribe Orders eDH Incoming Referrals [phone] Sherie Alonzo DO [address] [place] [address] [address] [place] [phone] Adnexal mass; Abdominal distension Social History Tobacco [...] pain documented in this encounter Care Teams Production Repairer Relationship Specialty Start Date End Date Lena Womack, CUT OFF MACHINE HELPER PCP - General Family Medicine 08/02/22 04/07/24 documented as of this encounter
--- OUTSIDE RECORDS SUMMARY | 2024-06-21 20:10 | XMS_ITS | Encounter Summary ---
[place] [address] Care Team Providers Care Relief Docking Master Name Role Phone Lena Womack Ronal MEJIA Primary Care Provider [phone] Reason for Visit * Reason Comments Abdominal Pain Left ovarian mass Back Pain Fall * Auth/Cert (Routine) Specialty Diagnoses / Procedures Referred By Contac t Referred To Contact Diagnoses Adnexal mass Antonio Rojas MD [facility] Referral ID Status Reason Start Date Expiration Date Visits Re quested Visits Authorized [id number] 1 1 Encounter Details Date Type Department Care Team (Late st Contact Info) Description 08/05/2022 12:41 PM EST - 08/05/2022 1:11 PM EST [place] [id number] Donnie Obrien MD EGD, UPPER GI ENDOSCOPY (WRVU 2.09) Social [...] Katheryn Carranza Patient Age: 61 y.o. Language: Bhutanese Race: White Ethnicity: Not nor Admit date: [...] Inpatient Provider Contact Information: Dr. Antonio Rojas, [facility] Gynecologic Oncology, Discharge Diagnoses (Hospital [...] 07/29/21, she presented to the ED at [facility]. She had a CTAP demonstrating a 15cm complex left adnexal mass. She also had a CT spine performed without acute findings. Patient was dispositioned to outpatient follow-up with Relations Manager Oncology at [facility]. ?? Tonight, she reports worsening pain in [...] There were no concern for malignancy. #Pain: BOILERHOUSE MECHANIC started for pain control for her abdominal and back pain. BIT team consulted due to using opioids without Rx at home and to assist with overall assessment and plan for going home. BOILERHOUSE MECHANIC was eventually transitioned to PO tylenol, ibuprofen, [...] Yellow Yellow Appearance UA Clear Clear Spec [place] UA 1.005 - 1.030 1.011 pH UA [...] Tumor markers 08/01/22: CA-125=40.8 / CEA=2.2 / VF05-2=0.1 Studies: EGD 08/05/22: ??The examined esophagus was [...] 90 tablet Refills: 3 naloxone 4 mg/actuation [place] Commonly known as: Narcan 1 each by [...] 0 dihydroergotamine 0.5 mg/pump act. (4 mg/mL) [place] Commonly known as: MIGRANAL One spray per [...] PATIENT DISCHARGE INSTRUCTIONS Gynecologic Oncology phone number: [phone] (Nurse ext 4 then 4; appointment ext 1 then 4). After hours and on weekends please call hospital sand cleaning machine operator at [phone] and ask for Gynecologic Oncologist practice consultant. Call your doctor if you develop: [...] options: [facility], [facility] Saumya Kumari, Drug & Alcohol Counselor, MS, [facility] [address] [id number] Offers online therapy Watsno Wiley, Drug & Alcohol Counselor, MS, [facility], ICGC-1, MAC 4 [facility] [address] [place] [address] Offers online therapy [facility] Asha Quintana, Drug & Alcohol Counselor, MA, JAZLYN, [place], [place] [address] Offers online therapy [facility] [employer] [facility] Ara Pratt, Drug & Alcohol Counselor, [facility], [facility] [address] [place], [place] [address] Offers online therapy [facility] Jose Miguel Dominique, Pre-Licensed Professional, ADMINISTRATIVE SUPPORT CLERK [address] [place], [place] [phone] [phone] Scott Young, Drug & Alcohol Counselor, MS, [facility], [facility] [address], [place] [phone] Offers online therapy Dr. Michel Junior, Drug & Alcohol Counselor, jared, MA, [facility], Th, [facility] [address] [facility] [address] [place], [place] [phone] Offers online therapy To review the profiles of private practice therapists, including ones listed above: 1) Visit www.psychologytoday.com 2) Enter your city name or zip code 3) Filter search results on the right hand side, including by insurance 4) Review therapist profiles 5) Call to schedule an intake appointment Residential Treatment: [facility] ([facility]) An [facility] [address] [place] [address] [facility] [address] [place] [address] [facility] [address] [place] [address] [address] Medication Assisted Therapy: [facility] is a suboxone clinic in [place], [place] [address] [place], [place] [id number] Services: Buprenorphine treatment Substance use treatment People with trauma, people with HIV or AIDS and people with co-occurring pain and substance use Naltrexone administration, methadone maintenance and suboxone prescription Peer Support Groups Narcotics Anonymous (NA) [place]: , www.gsana.org Online NA Meetings NA Video Meetings www.virtual-na.org/meetings NA Text Chat Meetings Www.Victorious Medical Systemsaloneclub.org SMART Recovery Meetings via Zoom 5:00-6:00pm, free and open to all To join Zoom meetin. Visit www.Planet Daily 5. Click on calendar on top of toolbar 6. Find the correct meeting date and time 7. Click the zoom link and enter password provided 211: The Doorway to Recovery The [facility], managed by [facility], is located at [address] [facility] in [place]. It offers screening as well as other services onsite, and connects clients with the care that is most appropriate for their needs. Services are accessible anytime, day or night, by calling 2-1-1. Overnight, respite care is available in [facility]. Additional Substance Use Treatment Resources www.[facility].ak.gov/dcbcs/bdas/documents/sdooozgv-ffsjk-rzsfsugnt.pdf www.psychologyNICO.com/ Www.rethinkingdrinking.niaaa.nih.gov/ www.samhsa.gov/cjquuygeee-famwjsvl-pufhsftss/otaickhsjugr-bzsltnn-qlmt/treatment -practitioner-manager hydraulic Mental Health Crisis [place] Mental [facility] Crisis Line: Dial 988 www.[facility].gov/find-help/98 Harm-Reduction Resources Mobile harm-reduction. For more information about receiving supplies: including syringe exchange, fentanyl test strips, and naloxone, or to schedule an appointment: [place] clients call and leave a message for Nancy (ext. 105) or Mateo Cruz (ext. 104). [place] clients call to speak with Mateo Feliz www.[facility].ak.gov/dphs/bchs/std/documents/sspregistrations.pdf Warning Illicit drugs do not come with [...] is being approved. Online Stress Reduction Resources www.[employer]ing/videos-features/videos/sotywkkcg-xphftwbov-3-7-8-breath/ www.MiniMonos.org/2012/affntjdbt-wtjoazjqt-zgdssyr-moment/ www.headsImpermium/ www.mindful.org/ www.freeBaynoteness.org/ Future Appointments and Orders Future Appointments and Orders Future Appointments Provider Department Dept Phone 08/16/2022 10:00 AM Antonio Rojas MD Gynecology Oncology at [facility] Arrive at: Armature Repairer Area [phone] 08/16/2022 11:00 AM Relations Manager, Onc Nurse Gynecology Oncology at [facility] Arrive at: Armature Repairer Area [phone] Discharge References/Attachments Prediabetes (Bhutanese) Provider Contact Information: Lena Womack, EPIC BEACON ANALYST [phone] documented in this encounter Discharge Instructions * Discharge Instructions* Sharon Tse MD - 08/05/2022 10:57 AM EST Substance Use Disorder Resources From BIT (Behavioral Intervention Team), Inpatient psych services: If you are interested in receiving some counseling support related to reducing or stopping your useof opioid medications, here are some options: [facility], [facility] Saumya Kumari, Drug & Alcohol Counselor, MS, [facility] [address] [facility] [address] [place], [place] [address] Offers online therapy Watson Wiley, Drug & Alcohol Counselor, MS, LAD, ICGC-1, MAC 4 [facility] [address] [place] [address] Offers online therapy [facility] Asha Quintana, Drug & Alcohol Counselor, [place], [facility], [place], [place] [address] Offers online therapy [facility] Counsel[facility], [facility] Ara Pratt, Drug & Alcohol Counselor, [facility], [facility] [address] [place], [place] [address] Offers online therapy [facility] Jose Miguel Dominique, Pre-Licensed Professional, ADMINISTRATIVE SUPPORT CLERK [address] [place] [address] x9 Scott Young, Drug & Alcohol Counselor, MS, [facility], [facility] [address] [place], [place] [address] Offers online therapy Dr. Michel Junior, Drug & Alcohol Counselor, [place], [place], [facility], Th, BSBM [address] [facility] [address] [place], [place] [phone] Offers online therapy To review the profiles of private practice therapists, including ones listed above: 1) Visit www.psychologytoSaygent.com 2) Enter your city name or zip code 3) Filter search results on the right hand side, including by insurance 4) Review therapist profiles 5) Call to schedule an intake appointment Residential Treatment: [facility] ([facility]) An [address] [phone] [place] [phone] [facility] [address] [place] [address] [facility] [address] [place] [address] Medication Assisted Therapy: [facility] is a suboxone clinic in [place], [place] [address] [place] [address] Services: Buprenorphine treatment Substance use treatment People with trauma, people with HIV or AIDS and people with co-occurring pain and substance use Naltrexone administration, methadone maintenance and suboxone prescription Peer Support Groups Narcotics Anonymous (NA) [place]: , www.gsana.org Online NA Meetings NA Video Meetings www.Novia CareClinicsna.org/meetings NA Text Chat Meetings Www.Tandem.org SMART Recovery Meetings via Zoom 5:00-6:00pm, free and open to all To join Zoom meeting: Visit www.Planet Daily Click on calendar on top of toolbar Find the correct meeting date and time Click the zoom link and enter password provided 211: The Doorway to Recovery [facility], managed by [facility], is located at [address] [facility] in [place]. It offers screening as well as other services onsite, and connects clients with the care that is most appropriate for their needs. Services are accessible anytime, day or night, by calling 2-1-1. Overnight, respite care is available in [facility] and [facility]. Additional Substance Use Treatment Resources www.dhhs.ak.gov/dcbcs/bdas/documents/lhzhpvyk-elbch-tkgwyleol.pdf www.psychologytoday.com/ Www.rethinkingdrinking.niaaa.nih.gov/ www.samhsa.gov/sxjbqvjstu-kiufnvts-gcuqryebe/zxchsfofkdsb-tamwmob-nodc/treatment -practitioner-manager hydraulic Mental Health Crisis National Mental Health Crisis Line: Dial 988 www.samhsa.gov/find-help/988 Harm-Reduction Resources Mobile harm-reduction. For more information about receiving supplies: including syringe exchange, fentanyl test strips, and naloxone, or to schedule an appointment: [place] clients call and leave a message for Nancy (ext. 105) or Mateo Cruz (ext. 104). [place] clients call to speak with Mateo Pascal. www.[facility].ak.gov/dphs/bchs/std/documents/sspregistrations.pdf Warning Illicit drugs do not come with [...] is being approved. Online Stress Reduction Resources www.[employer]ing/videos-features/videos/jqgsrrweo-uglabytqb-0-7-8-breath/ www.ClariPhy CommunicationsindSelltagord.org/2012/nhzyflexu-atotaxlya-nwfixhi-moment/ www.[facility] Campus/ www.mindful.org/ www.freemindfulness.org/ * Patient Instructions* Sharon Tse MD - 08/03/2022 9:56 AM EST PATIENT DISCHARGE INSTRUCTIONS Gynecologic Oncology phone number: [phone] (Nurse ext 4 then 4; appointment ext 1 then 4). After hours and on weekends please call hospital sand cleaning machine operator at [phone] and ask for Gynecologic Oncologist practice consultant. Call your doctor if you develop: [...] be sent through Care Everywhere. * Prediabetes (Bhutanese) documented in this encounter Medications at Time [...] regular diet for breakfast/lunch. Abd. pain present. BOILERHOUSE MECHANIC discontinued this AM and patient transitioned to [...] of opioid dependence ??? Ordered for dilaudid BOILERHOUSE MECHANIC due to patient discomfort and NG tube [...] EST Patient seen and examined with the duplication specialist oncology team. I agree with their assessment [...] but denies need for intervention. On dilaudid BOILERHOUSE MECHANIC and scheduled pain meds with good effect. [...] Yellow Yellow Appearance UA Clear Clear Spec [place] UA 1.005 - 1.030 1.011 pH UA [...] of opioid dependence ??? Ordered for dilaudid BOILERHOUSE MECHANIC due to patient discomfort and NG tube [...] EST Patient seen and examined with the duplication specialist oncology team. I agree with their assessment [...] but denies need for intervention. On dilaudid BOILERHOUSE MECHANIC and scheduled pain meds with good effect. [...] Pain continues to be managed with Dilaudid BOILERHOUSE MECHANIC and tylenol. Diet changed to NPO give [...] Prieto, in a two level home in [place], [place]. Bedroom and bathroom she typically uses [...] per neurosurg) Lines: Ted, PIV, NG tube, BOILERHOUSE MECHANIC Activity Orders: Up with assistance Diet: NPO [...] moderate mid-low back with transfers, pt used BOILERHOUSE MECHANIC at start of session and end of [...] benefit from a short rehab stay at [facility] to progress mobility and maximize functional [...] Code: TEF x2 Demetra Hess, PT Pager: [phone] Physical Therapy Inpatient Rehabilitation Department RON * [...] Typical intake is 2-3 meals/day includingyogurt and [place] toast with syrup, sandwich with cheese and deli meat for lunch and meat/potatoes/vegetable for dinner. Drinks coffee with sugar and flavored creamer. Denies changes in intake, appetite or weight DIRECTOR OF BANDS. Reviewed sources of added sugar in diet [...] was able to discuss plan with provider Relations Manager Onc [phone] Pager #: [phone] * Lola Barahona MD - 08/06/2022 6:48 [...] Yellow Yellow Appearance UA Clear Clear Spec [place] UA 1.005 - 1.030 1.011 pH UA [...] of opioid dependence ??? Ordered for dilaudid BOILERHOUSE MECHANIC due to patient discomfort and NG tube [...] LR continued at 100 mL/hr and dilaudid BOILERHOUSE MECHANIC in use. Patient sleeping between nursing care. [...] Bubba Schroeder MD PGY-3 08/06/22 * Demetra Zapein - 08/05/2022 6:44 PM EST Assumed care at 1700. Second IV placed by vascular. Fluids restarted. Suppository given. Controlling pain with BOILERHOUSE MECHANIC pump. * Jeannine Amos OT - 08/05/2022 [...] up as able and when appropriate. Pager: [phone] Jeannine Amos OT 08/05/2022 Occupational Therapy Rehabilitation [...] into upper-abdominal tightness overnight followed by vomiting. [place] warm earlier but no fever or chills. [...] vomiting & belching in addition, Dr. Juanis optter aware & reassessed patient. IV Zofran given [...] overlying dressing with minimal strikethrough AP: Katheryn L Coweta??is an 61 y.o.??woman who presented to ED [...] to her uncontrolled pain. Discussed with pharmacist practice consultant- okay to treat with 1x dose [...] endoscopy - NPO hold meds - 18 [place] NGT placed to 58cm with >1L output. [...] back with 1 assist and walker. Dilaudid BOILERHOUSE MECHANIC discontinued and started on PO oxycodone - pain remains 6-10 PRN oxycodone given x3 with moderate effect. [...] MAMMOPLASTY, EVA performed by DEMETRA SOMMERS at [facility] OR ??? PRO LAP, DIAGNOSTIC ABDOMEN Left 08/02/2022 LAPAROSCOPY, DIAGNOSTIC, ABDOMEN (WRVU 5.14) performed by Antonio Rojas MD at [facility] ??? PRO REMOVAL OF OVARY/TUBE(S) Left 08/02/2022 @SALPINGO-OOPHORECTOMY, UNILATERAL OR EVA (WRVU 12.16) performed by Antonio Rojas MD at [facility] OR Active Non-Hospital Problems [...] outlinedin this evaluation. Time IN / OUT: 5701-0124 Total Minutes, Physical Therapy: 37 Dawn Fung PT Pager: [phone] Physical Therapy Inpatient Rehabilitation Department * Nevaeh [...] MAMMOPLASTY, EVA performed by DEMETRA SOMMERS at [facility] ??? PRO LAP, DIAGNOSTIC ABDOMEN Left 08/02/2022 LAPAROSCOPY, DIAGNOSTIC, ABDOMEN (WRVU 5.14) performed by Antonio Rojas MD at [facility] ??? PRO REMOVAL OF OVARY/TUBE(S) Left 08/02/2022 @SALPINGO-OOPHORECTOMY, UNILATERAL OR EVA (WRVU 12.16) performed by Antonio Rojas MD at [facility] Social History: Home [...] Educated on and demonstrated adaptive techniques with pre wave assembler and sock aide. Pt doffed socks sitting EOB with supervision and pre wave assembler. Pt donned underwear seated EOB with supervision, pre wave assembler, and min cues for technique. Pt donned [...] throughout session. Pt demonstrated good carryover with pre wave assembler and sock aide for donning underwear and [...] session performed and note written with this insurance underwriter sales. Please do not hesitate to contact this insurance underwriter sales with any questions, thank you. Jeannine Amos OT Pager #[phone] Inpatient Rehabilitation * Antonio Rojas MD - [...] a 6/10 at rest. She feels the BOILERHOUSE MECHANIC is helping her pain, but she finds [...] Intake/Output Summary (Last 24 hours) at 08/04/2022 0547 Last data filed at 08/04/2022 0400 Gross [...] multimodal regimen as detailed below. Will wean BOILERHOUSE MECHANIC as able, and plan BIT team consult [...] #Analgesia #History of opioid dependence ??? Dilaudid BOILERHOUSE MECHANIC-demand only. Plan to transition to PO medications [...] intact. Sat inchair today. Continues with Dilaudid BOILERHOUSE MECHANIC - pain moderately managed. Abdominal binder used [...] multimodal regimen as detailed below. Will wean BOILERHOUSE MECHANIC as able, and plan BIT team consult [...] #Analgesia #History of opioid dependence ??? Dilaudid BOILERHOUSE MECHANIC- demand only. Can consider adding continuous rate [...] periods of time to gather supplies. Dilaudid BOILERHOUSE MECHANIC in use and continued on scheduled toradol [...] has abdominal pain and is using a BOILERHOUSE MECHANIC but denies any leg pain now, though [...] PRN. Gloria Hdz MD 08/03/2022 3:29 AM [facility] Neurosurgery Inpatient Pager: #[phone] Personal Pager: #[phone] * Antonio Rojas MD - 08/03/2022 1:22 AM EST Relations Manager Oncology - Progress Note Katheryn Carranza [...] immediately post-operatively. Though endorsing minimal effect from BOILERHOUSE MECHANIC analgesia, exam findings are overall reassuring against pain that is bbc-mo-cxlytilosk to what is expected post-operatively and she is able to sleep comfortably. We discussed continued trial of demand-only BOILERHOUSE MECHANIC, but can consider a continuous rate if needed given history of opioid dependence. Please see systems based plan below: Neuro:??Presenting concern was progressive bilateral lower extremity numbness, find to have a left paracentral disc herniation at L5/S1 as well as fracture at T12. #Bilateral lower extremity numbness ??? Neurosurgery consulted, appreciate continued recommendations #Analgesia #History of opioid dependence ??? Dilaudid BOILERHOUSE MECHANIC- demand only. Can consider adding continuous rate [...] per protocol ??? Neurology consulted ??? Dilaudid BOILERHOUSE MECHANIC, Tylenol, toradol ??? Home tizanidine, flexeril continued [...] ?? Patient discussed with Dr. Rojas, attending Relations Manager Oncologist. ?? Angely Scruggs MD PGY-4 [...] 07/29/21, she presented to the ED at [facility]. She had a CTAP demonstrating a 15cm complex left adnexal mass. She also had a CT spine performed without acute findings. Patient was dispositioned to outpatient follow-up with Relations Manager Oncology at [facility]. Tonight, she reports worsening pain in her [...] family. Social History and Habits: lives in [place], [place]. 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 Dilaudid BOILERHOUSE MECHANIC, Tylenol, toradol ??? Home tizanidine, flexeril continued [...] seen and discussed with Dr. Rojas, attending Relations Manager Oncologist. Bubba Schroeder MD PGY-3 08/02/2022 [...] at OSHrecently. Her pain has been severe. Relations Manager has not formally evaluated yet. Gynecology [...] The patient presented at that time to [place] where she had CT of the chest, [...] Patient signed out to oncoming team awaiting GAS STATION OPERATOR pelvic exam, further pain control, and [...] Hospital showed a large cyst. Was [facility] for further care as her pain has [...] Leukocytes UA Negative Appearance UA Clear Spec [place] UA 1.004 (L) Color UA Yellow Culture [...] Validity Result Value T&S only valid at [facility] Hosp Relations Manager consult for right ovarian mass with intractable pain. She also has significant back pain and needs evaluation to determine if this represents metastasis from undiagnosed cancer Assessment/plan: Pelvic mass with intractable pain Admission to duplication specialist Oumou Villar MD 08/02/22 0858 * Thom [...] 61 y.o. female currently admitted to the Relations Manager Onc service s/p diagnostic lap converted [...] General Surgery will sign off. Please page [phone] with any questions. Faiza Huang MD General Surgery PGY-2 08/06/2022 11:32 AM * Consult Note - [facility]land [facility] 08/05/2022 12:10 PM EST DEAN (Behavioral Intervention Team) [facility] checked in with patient briefly. She talked about yesterday's experience and her concern about her GI system. Patient having visit with family, so BIT will return at a later time. Tosin Bland MA, [facility] Mental [facility] - DEAN (Behavioral Intervention Team) Dept. of Psychiatry - Inpatient Psych. Services Pager: [phone] * Consult Note - Sarah Reed MD - 08/05/2022 7:43 AM EST Images from the original note were not included. DIVISION OF GASTROENTEROLOGY & HEPATOLOGY INITIAL CONSULT REQUESTING PROVIDER: Antonio Rojas MD NAME: Katheryn Carranza : 1960 HPI: Katheryn Carranza 61 y.o./ w/ PMH of Depression/Anxiety, HTN, opiate dependence adm 08/01/2022 9:16 PM to the Relations Manager-Onc service for surgical management of complex adnexal mass. GI is consulted for concern of GOO. Per chart review, the patient presented to OSH on 07/29 where she had a CTAP that showed 15cm complex left adnexal mass. She was sent home with duplication specialist onc f/u. She then developed worsening abdominal [...] MAMMOPLASTY, EVA performed by DEMETRA SOMMERS at [facility] ??? PRO LAP, DIAGNOSTIC ABDOMEN Left 08/02/2022 LAPAROSCOPY, DIAGNOSTIC, ABDOMEN (WRVU 5.14) performed by Antonio Rojas MD at [facility] ??? PRO REMOVAL OF OVARY/TUBE(S) Left 08/02/2022 @SALPINGO-OOPHORECTOMY, UNILATERAL OR EVA (WRVU 12.16) performed by Antonio Rojas MD at [facility] OR SOCIAL HX: Social [...] dihydroergotamine (MIGRANAL) 0.5 mg/pump act. (4 mg/mL) [place], Non-Aerosol One spray per nostril, while holding [...] by mouth nightly. ??? Miscellaneous Medical Supply [facility] Bilateral wrist splints for CTS [...] [20-22] SpO2 SpO2: [91 %-97 %] 08/04 700 - 08/05 07 In: 3864 [P.O.:1960; I.V.:1904] [...] who have questions please contact the health critical care physician assistant that requested your imaging first. Electronically signed by: Reymundo Fischer MD, [facility] ([phone]), at 08/05/2022 3:[address] Abdomen & [...] who have questions please contact the health critical care physician assistant that requested your imaging first. Electronically signed by: Reymundo Fischer MD, [facility] ([phone]), at 08/05/2022 12:23 AM MRI Lumbar Spine [...] who have questions please contact the health critical care physician assistant that requested your imaging first. Electronically signed by: Devin Mario Do, [facility] ([phone]), at 08/02/2022 5:08 PM MRI Thoracic Spine [...] who have questions please contact the health critical care physician assistant that requested your imaging first. Electronically signed by: Devin Mario Do, [facility] ([phone]), at 08/02/2022 5:08 PM Request For 2nd [...] who have questions please contact the health critical care physician assistant that requested your imaging first. Request For [...] who have questions please contact the health critical care physician assistant that requested your imaging first. Electronically signed by: Angel Rodriguez [facility] ([phone]), at 08/02/2022 8:25 AM Request for 2nd [...] who have questions please contact the health critical care physician assistant that requested your imaging first. Electronically signed by: Sandra Henderson MD, [facility] ([phone]), at 08/02/2022 10:18 AM Film Library- Storage Only Ultrasound Study Final Result Film Library- Storage Only CT Spine Final Result Film Library- Storage Only CT Chest Abdomen Pelvis Final Result ENDOSCOPY: Reports and images personally reviewed in [facility] OSH RECORDS: Obtained and personally reviewed ASSESSMENT & PLAN: Katheryn Carranza 61 y.o./ w/ PMH of Depression/Anxiety, HTN, opiate dependence adm to the Relations Manager-Onc service for surgical management of complex [...] them as documented. Donnie Obrien MD, [facility] [employer] occupational therapist Section of Gastroenterology and Hepatology * Consult Note - Jf Hawk MD - 08/05/2022 5:38 AM EST ACUTE CARE SURGERY INPATIENT CONSULT NOTE Patient ID: Patient Name: Katheryn Carranza : 1960 Admit Date: 08/01/2022 9:16 PM Hospital Day: 3 History of Present Illness: Katheryn Carranza is a 61 y.o. female currently admitted to the Relations Manager Onc service s/p diagnostic lap converted [...] MAMMOPLASTY, EVA performed by DEMETRA SOMMERS at [facility] MA[facility] OR ??? PRO LAP, DIAGNOSTIC ABDOMEN Left 08/02/2022 LAPAROSCOPY, DIAGNOSTIC, ABDOMEN (WRVU 5.14) performed by Antonio Rojas MD at [facility] MA[facility] OR ??? PRO REMOVAL OF OVARY/TUBE(S) Left 08/02/2022 @SALPINGO-OOPHORECTOMY, UNILATERAL OR EVA (WRVU 12.16) performed by Antonio Rojas MD at [facility] OR Medications: ??? acetaminophen [...] dihydroergotamine (MIGRANAL) 0.5 mg/pump act. (4 mg/mL) [place], Non-Aerosol One spray per nostril, while holding [...] who have questions please contact the health critical care physician assistant that requested your imaging first. Electronically signed by: Angel Baker DO, [facility] ([phone]), at 08/02/2022 8:41 AM Request For 2nd [...] who have questions please contact the health critical care physician assistant that requested your imaging first. Electronically signed by: Angel Rodriguez [facility] ([phone]), at 08/02/2022 8:25 AM Request for 2nd [...] who have questions please contact the health critical care physician assistant that requested your imaging first. Electronically signed by: Sandra Henderson MD, [facility] ([phone]), at 08/02/2022 10:18 AM MRI Lumbar Spine [...] who have questions please contact the health critical care physician assistant that requested your imaging first. Thoracic Spine [...] who have questions please contact the health critical care physician assistant that requested your imaging first. Electronically signed by: Devin Mario Do [facility] ([phone]), at 08/02/2022 5:[address] Abdomen & [...] who have questions please contact the health critical care physician assistant that requested your imaging first. Electronically signed by: Reymundo Fischer MD, [facility] ([phone]), at 08/05/2022 12:23 AM XR Abdomen 1 [...] who have questions please contact the health critical care physician assistant that requested your imaging first. Electronically signed by: Reymundo Fischer MD, [facility] ([phone]), at 08/05/2022 3:21 AM Assessment: Katheryn Carranza [...] with attending surgeon Dr. Hawk. Please page [phone] with questions. rAnav Singh Jr, MD General Surgery PGY-2 08/05/2022 [...] MD * Consult Note - Tosin Bland [facility] - 08/03/2022 2:45 PM EST BIT [...] coordination (min): 15 minutes Tosin Bland MA, [facility] - BIT (Behavioral Intervention Team) Dept. of Psychiatry - Inpatient Psych. Services Pager: [phone] * Initial Assessments - Ava Rogers RN [...] Environment: Others in the home: spouse (4 Italian shepards). Current Living Arrangements: home/apartment/condo. Accessibility Concerns:2 level log home (4 REGINO without rails) or 6 REGINO with rails); bedroom on 2nd level [address] Resource / Environmental Concerns: Resource/Environmental Concerns: none Current DME: none (Friend has given her a FWW to use if needed) Home Address confirmed as: [address] [place] [phone] Social & Family Supports: All names listed below confirmed with patient as current and correct Extended Emergency Contact Information Primary Emergency Contact: Prieto Carranza Address: [address] [place] [phone] [facility] [place] Relation: Spouse Secondary Emergency Contact: [facility] [place] [address] [facility] [place] Relation: Child Current Care [...] Secondary Insurance: N/A ; Prescription Coverage: No ([facility] and [facility]) Preferred Pharmacy: [facility] [id number] [place] Status: Patient is a : No Primary Care Provider confirmed: Lena Womack, EPIC BEACON ANALYST [phone] Patient/Caregiver Goals of Treatment: Pain control Potential Needs for Transition of Care: none Agency Referrals: n/a Transportation: no concerns Transportation Anticipated: family or friend will provide Concerns to be Addressed: no discharge needs identified Assessment: Patient is admitted to GAS STATION OPERATOR service for POD#1 s/p diagnostic laparoscopy, [...] - 08/03/2022 Admit date: 08/01/2022 Attending: Antonio oRjas MD ID: Katheryn Carranza is a 61 [...] 5-20 mL Intravenous Q1 Min PRN Bubba Schoreder MD ??? lidocaine (Xylocaine) 1% (10 mg/mL) [...] mg/mL) in sodium chloride 0.9% 50 mL BOILERHOUSE MECHANIC infusion syringe Intravenous BOILERHOUSE MECHANIC Only Bubba Schroeder MD 50 mg at 08/02/222124 ??? diphenhydrAMINE (Benadryl) (50 mg/mL) injection 25 mg 25 mg Intravenous Q30 Min PRN Bubba Schroeder MD ??? BOILERHOUSE MECHANIC wood Intravenous Continuous PRN Bubba Schroeder MD ??? HYDROmorphone (mg) BOILERHOUSE MECHANIC shift total and Settings verification Intravenous 2 Times Daily- BOILERHOUSE MECHANIC Shift Total Bubba Schroeder MD ??? enoxaparin (Lovenox) (40 mg/0.4 mL) subcutaneous injection 40 mg 40 mg Subcutaneous Nightly Bubba Schroeder MD Home Medications: No current facility-administered medications on file prior to encounter. Current Outpatient Medications on File Prior to Encounter Medication Sig Dispense Refill ??? dihydroergotamine (MIGRANAL) 0.5 mg/pump act. (4 mg/mL) [place], Non-Aerosol One spray per nostril, while holding [...] by mouth nightly. ??? Miscellaneous Medical Supply [facility] Bilateral wrist splints for CTS [...] MAMMOPLASTY, EVA performed by DEMETRA SOMMERS at [facility] OR Allergies: Allergies Allergen [...] Flexor digitorum profundus Digit II-V flexion / soil analyst 5 5 L2-3 Iliopsoas Hip flexion 5 [...] who have questions please contact the health critical care physician assistant that requested your imaging first. Electronically signed by: Angel Baker DO, [facility] ([phone]), at 08/02/2022 8:41 AM Request For 2nd [...] who have questions please contact the health critical care physician assistant that requested your imaging first. Electronically signed by: Angel Rodriguez [facility] ([phone]), at 08/02/2022 8:25 AM Request for 2nd [...] who have questions please contact the health critical care physician assistant that requested your imaging first. Electronically signed by: Sandra Henderson MD, [facility] ([phone]), at 08/02/2022 10:18 AM MRI Lumbar Spine [...] who have questions please contact the health critical care physician assistant that requested your imaging first. Electronically signed by: Devin Mario Do, [facility] ([phone]), at 08/02/2022 5:08 PM MRI Thoracic Spine [...] who have questions please contact the health critical care physician assistant that requested your imaging first. Electronically signed by: Devin Mario Do, [facility] ([phone]), at 08/02/2022 5:08 PM Assessment: Katheryn Carranza [...] Rojas MD - 08/02/2022 6:34 PM EST [facility] Operative Note Patient Name: Katheryn Carranza : [id number] MR#: [id number] Case Date: 08/02/2022 Surgeon: Surgeon(s) and Role: [...] pelvis, with the findings noted above. A [employer] re tractor was assembled and used to [...] Booker MD - 08/02/2022 12:42 PM EST [facility] Neurosurgery Consultation Note Date & Time of Consult: 08/02/2022 1207 Referring Service: Relations Manager Onc Referring Attending: Antonio Rojas MD Neurosurgery Attending: Dr. Duenas Place of Consult: ED22/MRI [place] ID: Name: Katheryn Carranza, 61 y.o. female Admission Date: 08/01/2022 Reason for consult/CC: Left paracentral L5/S1 disc herniation HPI: This is a 61 y.o. RIGHT-handed female with a PMH of tobacco abuse, HTN, chronic neck pain who presented to [facility] with c/o progressive back pain x3 weeks [...] of days without benefit. She presented to [facility] ED on 07/29/2022 due to progression of this pain wrapping around to her abdomen mony CT of her abdomen and pelvis as well as a CT of her spine was obtained. As the pain continued to progress she presented to [facility] ED yesterday 08/01 and second reads of [...] MAMMOPLASTY, EVA performed by DEMETRA SOMMERS at [facility] OR Medications: No current facility-administered medications on file prior to encounter. Current Outpatient Medications on File Prior to Encounter Medication Sig Dispense Refill ??? dihydroergotamine (MIGRANAL) 0.5 mg/pump act. (4 mg/mL) [place], Non-Aerosol One spray per nostril, while holding [...] by mouth nightly. ??? Miscellaneous Medical Supply [facility] Bilateral wrist splints for CTS [...] ??? lidocaine 1 patch Transdermal Daily ??? BOILERHOUSE MECHANIC shift total and Settings verification Intravenous 2 Times Daily- BOILERHOUSE MECHANIC Shift Total ??? amitriptyline 100 mg Oral [...] who have questions please contact the health critical care physician assistant that requested your imaging first. Electronically signed by: Angel Baker DO, [facility] ([phone]), at 08/02/2022 8:41 AM Request For 2nd [...] who have questions please contact the health critical care physician assistant that requested your imaging first. Electronically signed by: Angel Rodriguez [facility] ([phone]), at 08/02/2022 8:25 AM Request for 2nd [...] who have questions please contact the health critical care physician assistant that requested your imaging first. Electronically signed by: Sandra Henderson MD, [facility] ([phone]), at 08/02/2022 10:18 AM Assessment: This is a 61 y.o. RIGHT-handed female not on antiplatelet/anticoagulants with a PMH of tobacco abuse, HTN, chronic neck pain who presented to [facility] with c/o progressive back pain x3 weeks [...] dihydroergotamine (MIGRANAL) 0.5 mg/pump act. (4 mg/mL) [place], Non-Aerosol One spray per nostril, while holding [...] dihydroergotamine (MIGRANAL) 0.5 mg/pump act. (4 mg/mL) [place], Non-Aerosol One spray per nostril, while holding [...] MAMMOPLASTY, EVA performed by DEMETRA SOMMERS at [facility] OR Allergies: Allergies Allergen [...] Flexor digitorum profundus Digit II-V flexion / soil analyst 5 5 L2-3 Iliopsoas Hip flexion 5 [...] who have questions please contact the health critical care physician assistant that requested your imaging first. Electronically signed by: Angel Rodriguez [facility] ([phone]), at 08/02/2022 8:25 AM Assessment: Katheryn Carranza [...] Volume 87, Issue 6, 2006, Pages 801-810, [email or web address] Patient seen with Dr. Pinky Castellano MD [...] pt fell yesterday. [facility] Tuesdayand referred up to for further care. Pt has left ovarian mass found on u/s. Pt states her legs are numb and tingly for last 2 days. Pt restless in wc, appears in discomfort. HPI (Adult) Stated Reason for Visit: I have sciatica and back pain, so I went to [facility] tuesday and they said I have [...] 5:18 AM EST Upper GI Endoscopy, Diagnostic (06253) 08/05/2022 2:19 PM EST GOO UPPER GI [...] TO PATHOLOGY Routine 08/02/2022 7:39 PM EST NON-GAS STATION OPERATOR FINAL REPORT Routine 08/02/2022 7:07 PM [...] EST) Magnesium 0.89 0.69 - 1.07 mmol/L [facility] Blood 08/07/2022 5:16 AM EST 08/07/2022 5:27 AM EST Narrative Resulting Agency Comment Spec In Lab Antonio Rojas MD CHEMISTRY ORDERABLES [facility] [place] [address] * (ABNORMAL) Basic Metabolic Panel (non-fasting) (08/07/2022 5:16 AM EST) Glucose 122 65 - 199 mg/dL [facility] Comment:Diabetes: >=200 mg/d L plus symptoms Blood Urea Nitrogen 9 8 - 18 mg/dL [facility] Creatinine 0.68(L) 0.70 - 1.20 mg/dL [facility] Sodium 137 135 - 145 mmol/L [facility] Potassium 3.8 3.5 - 5.0 mmol/L [facility] Comment: Please note: ??Patients with WBC >100,000 may have falsely elevated Potassium levels. ??For accurate Potassium quantification in these patients send serum separator tube (gold top) for subsequent determinations. ??Contact the Clinical Chemistry Laboratory if there are any questions. Chloride 101 98 - 107 mmol/L [facility] Carbon Dioxide 24 22 - 31 mmol/L [facility] Anion Gap 12 5 - 15 mmol/L [facility] Calcium 8.6 8.5 - 10.5 mg/dL [facility] Est Glomerular Filtration Rate 99 >=60 mL/min/1. 73 m?? [facility] Comment: This patient's estimated GFR was [...] Rojas MD CHEMISTRY ORDERABLES Performing Organization Address City/State/[facility] Co de Phone Number [facility] [place] [address] * Lavender Tube HOLD (08/06/2022 5:18 AM EST) Lavender Hold Sample in lab. [facility] Blood Venous Draw / Unknown 08/06/2022 5:18 AM EST 08/06/2022 5:33 AM EST Oma MARSHALL HEMATOLOGY ORDERABLE S Performing Organization Address City/[facility]/ZIP Co de Phone Number [facility] [place] [place] [address] * Magnesium (08/06/2022 5:18 AM EST) Magnesium 0.69 0.69 - 1.07 mmol/L [facility] Blood 08/06/2022 5:18 AM EST 08/06/2022 5:33 AM EST Narrative Resulting Agency Comment Spec In Lab Antonio Rojas MD CHEMISTRY ORDERABLES Performing Organization Address [facility] Co de Phone Number [facility] [place] [address] * (ABNORMAL) Basic Metabolic Panel (non-fasting) (08/06/2022 5:18 AM EST) Glucose 106 65 - 199 mg/dL [facility] Comment:Diabetes: >=200 mg/d L plus symptoms Blood Urea Nitrogen 10 8 - 18 mg/dL [facility] Creatinine 0.65(L) 0.70 - 1.20 mg/dL [facility] Sodium 139 135 - 145 mmol/L [facility] Potassium 3.3(L) 3.5 - 5.0 mmol/L [facility] Comment: Please note: ??Patients with WBC >100,000 may have falsely elevated Potassium levels. ??For accurate Potassium quantification in these patients send serum separator tube (gold top) for subsequent determinations. ??Contact the Clinical Chemistry Laboratory if there are any questions. Chloride 99 98 - 107 mmol/L [facility] Carbon Dioxide 26 22 - 31 mmol/L [facility] Anion Gap 14 5 - 15 mmol/L [facility] Calcium 8.9 8.5 - 10.5 mg/dL [facility] Est Glomerular Filtration Rate 100 >=60 mL/min/1. 73 m?? [facility] Comment: This patient's estimated GFR was [...] In Lab Antonio Rojas MD CHEMISTRY ORDERABLES [facility] [place] [address] * UPPER GI ENDOSCOPY (08/05/2022 2:01 PM EST) Pathologist [facility] UPPER GI ENDOSCOPY [facility] Endoscopy Procedure Date: 08/05/2022 2:01 PM ? Patient Name: Katheryn Carranza ? N: [id number] ? Date of : 1960 ? Age: 61 ? Order #: [id number] ? Instrument Name: [id number] ? Procedure: ? Upper GI endoscopy Indications: [...] ? procedure, including non-wood portions. ? Donnie Leo Obrien, 08/05/2022 3:18:18 PM Number of Addenda: 0 Note Initiated On: 08/05/2022 2:01 PM [employer] 08/05/2022 2:01 PM EST Unknown GENERAL SURGICAL ORD ERABLES Performing Organization Address [facility] Co de Phone Number [employer] * Urine Hold (08/05/2022 10:47 AM EST) Hold, Urine Sample in lab. [facility] Urine Urine / Unknown 08/05/2022 1 0:47 AM EST 08/05/2022 10:58 AM EST Angely Scruggs MD URINE ORDERABLES Performing Organization Address City/[facility] Co de Phone Number [facility] [place] [place] [address] * Urinalysis with reflex Culture (08/05/2022 10:47 AM EST) Glucose, Urine Dipstick Negative Negative mg/dL [facility] Protein, Urine Dipstick Negative Negative mg/dL [facility] Bilirubin, Urine Dipstick Negative Negative mg/dL [facility] Comment: Clinical correlation required for positive Urine Bilirubin results as false positive may occur with some drugs and drug related products. If a false positive is suspected a serum total bilirubin should be considered if clinically indicated. Urobilinogen, Urine Dipstick Normal Normal mg/dL [facility] pH, Urn (dipstick) 7.5 5.0 - 8.0 [facility] Blood, Urine Dipstick Negative Negative mg/dL [facility] Ketone, Urine Dipstick Negative Negative mg/dL [facility] Nitrite, Urine Dipstick Negative Negative [facility] Leukocytes, Urine Dipstick Negative Negative mcL [facility] Appearance, Urine Dipstick Clear Clear [facility] Specific [place] Urine Automated 1.011 1.005 - 1.030 [facility] Color, Urine Dipstick Yellow Yellow [facility] Reflex to Culture No [facility] Clean Catch Urine 08/05/2022 10:47 AM EST 08/05/2022 10:58 AM EST Narrative Resulting Agency Comment Spec In Lab Antonio Rojas MD URINE ORDERABLES [facility] [place] [address] * XR Abdomen 1 view (Generic) (08/05/2022 [...] who have questions please contact the health critical care physician assistant that requested your imaging first. ? [...] patients who have questions please contactthe health critical care physician assistant that requested your imaging first. Electronically signed by: Reymundo Fischer MD, [facility]([phone]), at 08/05/2022 3:21 AM Antonio Rojas MD [...] who have questions please contact the health critical care physician assistant that requested your imaging first. ? Electronically signed by: Reymundo Fischer MD, [facility] ([phone]), at 08/05/2022 12:23 AM Narrative 08/05/2022 12:23 [...] Osseous Structures: Redemonstrated mild compression deformity of [id number] endplate. IMPRESSION Findings suggesting pyelonephritis of the lone RIGHT kidney. Moderate to severe gastric distention. Mild atelectasis at the included lung bases. Moderate pancolonic stool burden Thank you for letting us participate in the care of this patient. If youare a health care provider and have any questions regarding this report,please contact the number below. For patients who have questions please contactthe health critical care physician assistant that requested your imaging first. Electronically signed by: Reymundo Fischer MD, [facility]([phone]), at 08/05/2022 12:23 AM Antonio Rojas MD IM CT ORDERABLES * (ABNORMAL) Hemoglobin A1c (08/04/2022 11:24 PM EST) Hemoglobin A1c 6.2(H) 4.3 - 5.6 % [facility] Comment: Reference Range: 4.3 - 5.6% [...] Mellitus, Diabetes Care 2013; 36: Suppl. 1, R70-29 Estimated Average Glucose 130 mg/dL [facility] Comment: eAG equivalents for HbA1c percentages: [...] into estimated average glucose values. ??Diabetes Care 2008:31(8):3484-1168. Blood Venous Draw / Unknown 08/04/2022 11:24 PM EST 08/05/2022 9:39 AM EST Narrative Resulting Agency Comment Spec In Lab Oma MARSHALL CHEMISTRY ORDERABLES [facility] [place] [address] * (ABNORMAL) Amylase (08/04/2022 11:24 PM EST) Amylase 27(L) 28 - 100 unit/L [facility] Blood Venous Draw / Unknown 08/04/2022 11:24 PM EST 08/04/2022 11:30 PM EST Narrative Resulting Agency Comment Spec In Lab Angely Scruggs MD CHEMISTRY ORDERABLES Performing Organization Address City/[facility]/[place] [address] * Lipase (08/04/2022 11:24 PM EST) Lipase 12 0 - 60 unit/L [facility] Blood Venous Draw / Unknown 08/04/2022 11:24 PM EST 08/04/2022 11:30 PM EST Narrative Resulting Agency Comment Spec In Lab Angely Scruggs MD CHEMISTRY ORDERABLES Performing Organization Address [facility] [place] [address] * (ABNORMAL) Differential, Automated (08/04/2022 11:24 PM EST) Pathologist [facility] Neutrophil % 68.0 % [facility] Neutrophil Absolute 6.86(H) 1.70 - 6.10 x10(3)/mc L [facility] Lymph % 24.6 % [facility] Lymphocytes Abs 2.5 0.9 - 3.2 x10(3)/mc L [facility] Monocyte % 6.1 % [facility] Monocyte Abs 0.6 0.3 - 0.9 x10(3)/mc L [facility] Eos % 0.3 % [facility] Eosinophils Abs 0.0 0.0 - 0.4 x10(3)/mc L [facility] Basophil % 0.1 % [facility] Baso Absolute 0.0 0.0 - 0.1 x10(3)/mc L [facility] Immature Gran % 0.90 % [facility] Comment: Immature granulocytes(IG's)percentage and absolute count will include metamyelocytes, myelocytes, and promyelocytes. Blood smears from CBCs yielding IG's will be scanned manually for concordance. If this scan disagrees with the automated IG or if promyelocytes are noted, a manual differential will be performed. Immature Gran Absolute 0.09(H) 0.00 - 0.04 x10(3)/mc L [facility] Blood 08/04/2022 11:2 4 PM EST 08/04/2022 11:29 PM EST Narrative Resulting Agency Comment Spec In Lab Bubba Schroeder MD HEMATOLOGY ORDERABLE S [facility] [place] [address] * (ABNORMAL) Hemogram (08/04/2022 11:24 PM EST) White Blood Cell 10.1(H) 4.0 - 9.5 x10(3)/mc L [facility] Red Blood Cell 4.22 4.00 - 5.21 x10(6)/mc L [facility] Hemoglobin 13.6 11.7 - 15.5 g/dL [facility] Hematocrit 39.1 35.7 - 45.8 % [facility] Mean Cell Volume 92.7 82.6 - 94.4 fL [facility] Mean Cell Hemoglobin 32.2(H) 27.1 - 32.0 pg [facility] Mean Cell Hemoglobin Concentration 34.8 31.7 - 35.0 g/dL [facility] Platelet 285 145 - 357 x10(3)/mc L [facility] RDW Standard Deviation 41.6 37.0 - 46.0 fL [facility] RDW coefficient of variation 12.3 11.5 - 14.1 % [facility] Mean Platelet Volume 8.7 7.6 - 12.9 fL [facility] NRBC% auto 0.0 % [facility] NRBC Absolute 0.000 0.000 - 0.000 x10(3)/mc L [facility] Blood 08/04/2022 11:2 4 PM EST 08/04/2022 11:29 PM EST Narrative Resulting Agency Comment Spec In Lab Bubba Schroeder MD HEMATOLOGY ORDERABLE S [facility] [place] [address] * CMP w/fasting Glucose (08/04/2022 11:24 PM EST) Glucose Fasting 97 65 - 99 mg/dL [facility] Comment: ?Fasting* Glucose Interpretive Criteria Normal [...] of Diabetes Mellitus, Position Statement from the [place] [employer]. ??Diabetes Care, Volume 33, Supplement 1, Jun 2009 Blood Urea Nitrogen 10 8 - 18 mg/dL [facility] Creatinine 0.70 0.70 - 1.20 mg/dL [facility] Sodium 137 135 - 145 mmol/L [facility] Potassium 3.6 3.5 - 5.0 mmol/L [facility] Comment: Please note: ??Patients with WBC >100,000 may have falsely elevated Potassium levels. ??For accurate Potassium quantification in these patients send serum separator tube (gold top) for subsequent determinations. ??Contact the Clinical Chemistry Laboratory if there are any questions. Chloride 101 98 - 107 mmol/L [facility] Carbon Dioxide 24 22 - 31 mmol/L [facility] Anion Gap 12 5 - 15 mmol/L [facility] Calcium 9.2 8.5 - 10.5 mg/dL [facility] Protein, Total 6.4 6.1 - 8.0 g/dL [facility] Albumin 3.7 3.2 - 5.2 g/dL [facility] Aspartate Aminotransferase 13 0 - 30 unit/L [facility] Alanine Aminotransferase 22 0 - 30 unit/L [facility] Alkaline Phosphatase 73 35 - 105 unit/L [facility] Bilirubin, Total 0.3 0.2 - 1.3 mg/dL [facility] Est Glomerular Filtration Rate 98 >=60 mL/min/1. 73 m?? [facility] Comment: This patient's estimated GFR was [...] In Lab Antonio Rojas MD CHEMISTRY ORDERABLES [facility] [place] [id number] * Surgical Pathology Report (08/02/2022 7:39 PM EST) Final Diagnosis [id number] ? Location: L1WD; H119; A The signing pathologist has (i) examined the relevant preparation(s) for the specimen(s) and (ii) rendered or confirmed the diagnosis(es). . 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 Electronically signed by: ?Rosaura Hernandez MD Verified: ??08/11/2022 9:33 ?? Pathologist Performed at: ??-[facility] Dept. of [place]ology, [place] [address] Social Media Community Manager: Ernestina Valenzuela MD, FCAP, ??CLIA Certificate: [id number] DISCUSSION Definitive fallopian tube tissue was not [...] Fallopian Tube: Not grossly identified. Sections/Processi ng: Blue Print Control Clerk sections in 22 cassettes as follows: ?A1-A2: Cyst wall with excrescences ?A3-A4: Blue Print Control Clerk sections of fine papillary excrescences ?A5-A6: Blue Print Control Clerk yellow, flat excrescences ?A7-A10: Blue Print Control Clerk sections of the solid and cystic nodule, ?A11-A15: Blue Print Control Clerk sections of the whorled surface nodule and ? adjacent cyst ?A16-A19: Additional cyst wall sections ?A20: Candidate left fallopian tube adhesed to nodule ?A21-A22: Blue Print Control Clerk soft tissue adhesed to nodule ??j 08/11/2022 9:33 AM [facility] OVARIAN PART / Unknown 08/02/2022 7:39 PM EST 08/02/2022 7:39 PM EST Antonio Rojas MD PATHOLOGY/CYTOLOGY O LISA [facility] [place] [address] [facility] [place] [address] * Specimen to Pathology (08/02/2022 7:39 PM EST) AP Specimen 08/02/2022 7:39 PM EST 08/02/2022 7:39 PM EST Narrative [facility] - 08/02/2022 7:39 PM EST Specimen requisition ordered. ??Separate Pathology report to follow Antonio Rojas MD PATHOLOGY/CYTOLOGY Tad GONZALEZ Performing Organization Address City/[facility] Co de Phone Number [facility] [place] [place] [address] * Non-Relations Manager Final Report (08/02/2022 7:07 PM EST) Diagnosis Discussion [id number] ? Location: WD; 19; A The signing pathologist has (i) examined the relevant preparation(s) for the specimen(s) and (ii) rendered or confirmed the diagnosis(es). . ? Non-Relations Manager Final DIAGNOSIS Negative for Malignancy Electronically signed by: ?Mark Hook MD Verified: ??08/11/2022 15:41 ??Pathologist Performed at: ??-[facility] Dept. of [place]ology, [place] [address] Social Media Community Manager: Ernestina Valenzuela MD, FCAP, ??CLIA Certificate: [id number] DISCUSSION Pelvic wash: Mesothelial cells are present. [...] Cell Block 1. 08/11/2022 3:41 PM EST [facility] Pelvic Washing 08/02/2022 7: 07 PM EST 08/02/2022 7:07 PM EST Antonio Rojas MD PATHOLOGY/CYTOLOGY O LISA [facility] [address] [place] [address] * Cytopathology Non-Gynecological (08/02/2022 7:07 PM EST) AP Specimen 08/02/2022 7:07 PM EST 08/02/2022 7:07 PM EST Narrative [facility] - 08/02/2022 7:07 PM EST Specimen requisition ordered. ??Separate Pathology report to follow Antonio Rojas MD PATHOLOGY/CYTOLOGY O LISA Performing Organization Address City/[facility] Co de Phone Number [facility] [place] [address] * MRI Thoracic Spine wwo Contrast (08/02/2022 [...] who have questions please contact the health critical care physician assistant that requested your imaging first. ? Electronically signed by: Devin Mario Do, [facility] ??([phone]), at 08/02/2022 5:08 PM Narrative 08/02/2022 5:08 [...] the clinical situation (Reference- Emilyk Et Al, [id number]). Findings: (Prevalence in patients without low back [...] patients who have questions please contactthe health critical care physician assistant that requested your imaging first. Electronically signed by: Devin Mario Do, [facility]([phone]), at 08/02/2022 5:08 PM Antonio Rojas MD [...] who have questions please contact the health critical care physician assistant that requested your imaging first. ? Electronically signed by: Devin Mario Do, [facility] ??([phone]), at 08/02/2022 5:08 PM Narrative 08/02/2022 5:08 [...] the clinical situation (Reference- Emilyk Et Al, [id number]). Findings: (Prevalence in patients without low back [...] patients who have questions please contactthe health critical care physician assistant that requested your imaging first. Oumou Villar [...] who have questions please contact the health critical care physician assistant that requested your imaging first. ? Electronically signed by: Angel Baker DO, [facility] ([phone]), at 08/02/2022 8:41 AM Narrative 08/02/2022 8:41 AM EST EXAMINATION: * ??REQUEST FOR 2ND READ CT CHEST ABDOMEN PELVIS * ??CT OF THE CHEST, ABDOMEN, AND PELVIS WITH INTRAVENOUS CONTRAST. CLINICAL HISTORY: 61-year-old female with left adnexal mass. ??History of hysterectomy and right oophorectomy. ??Solitary right kidney. ??Clinical concern for aneurysm. ??Request for second interpretation of outside imaging study. ?? * ??Sending Institution [facility] * ??Date of exam 20220729 * ??I believe a reinterpretation of this exam may alter care of Patient. Yes TECHNIQUE: CT of the chest, abdomen, and pelvis was performed with intravenous contrast at [facility] on July 29, 2022. Helical [...] similar prior examination provided for comparison. FINDINGS: Global Account Manager Images: Noncontributory. CT OF THE CHEST: Lungs [...] of outside imaging study. * Sending Institution [facility] * Date of exam 20220729 * I believe a reinterpretation of this exam may alter care of Patient.Yes TECHNIQUE: CT of the chest, abdomen, and pelvis was performed withintravenous contrast at [facility] on July 29, 2022. Helical CT images of the chest, abdomen, and pelvis were obtainedfollowing administration of intravenous contrast. Per report, the patient mL Omnipaque 350 intravenous contrast. Oral contrast was not administered. Multiplanar reformats were performed in the sagittal and coronal planes. Maximum Intensity Projection (MIP) images were also reformatted. COMPARISON: There is no similar prior examination provided forcomparison. FINDINGS: Global Account Manager Images: Noncontributory. CT OF THE CHEST: Lungs [...] patients who have questions please contactthe health critical care physician assistant that requested your imaging first. Electronically signed by: Angel Baker DO, [facility]([phone]), at 08/02/2022 8:41 AM Oumou Villar MD [...] who have questions please contact the health critical care physician assistant that requested your imaging first. ? Electronically signed by: Angel Rodriguez [facility] ([phone]), at 08/02/2022 8:25 AM Narrative 08/02/2022 8:25 AM EST EXAMINATION: REQUEST FOR 2ND READ CT SPINE CLINICAL HISTORY: back/flank pain r/o spinal stenosis; Sending Institution [facility]; Date of exam 20220729; I believe [...] who have questions please contact the health critical care physician assistant that requested your imaging first. ? Electronically signed by: Sandra Henderson MD, [facility] ([phone]), at 08/27/2022 12:30 PM --------ORIGINAL REPORT -------- EXAMINATION: REQUEST FOR 2ND READ ULTRASOUND STUDY CLINICAL HISTORY: L adnexal mass; Sending Institution [facility]; Date of exam 20220730; I believe [...] who have questions please contact the health critical care physician assistant that requested your imaging first. ? Electronically signed by: Sandra Henderson MD, [facility] ([phone]), at 08/02/2022 10:18 AM Addendum by Sandra Henderson MD on 08/25/2022 12:39 PM EDT --------ADDENDUM #1-------- TECHNIQUE: US Pelvis, Images were obtained and VRE --------ORIGINAL REPORT -------- EXAMINATION: REQUEST FOR 2ND READ ULTRASOUND STUDY CLINICAL HISTORY: L adnexal mass; Sending Institution [facility]; Date of exam 20220730; I believe [...] who have questions please contact the health critical care physician assistant that requested your imaging first. ? Electronically signed by: Sandra Henderson MD, [facility] ([phone]), at 08/02/2022 10:18 AM Impressions 08/02/2022 10:18 AM EST Large cystic lesion with mural nodularity in the RIGHT adnexa highly suspicious for malignancy Thank you for letting us participate in the care of this patient. ??If you are a health care provider and have any questions regarding this report, please contact the number below. ??For patients who have questions please contact the health critical care physician assistant that requested your imaging first. ? Electronically signed by: Sandra Henderson MD, [facility] ([phone]), at 08/02/2022 10:18 AM Narrative 08/02/2022 10:18 AM EST EXAMINATION: REQUEST FOR 2ND READ ULTRASOUND STUDY CLINICAL HISTORY: L adnexal mass; Sending Institution [facility]; Date of exam 20220730; I believe [...] CLINICAL HISTORY: L adnexal mass; Sending Institution [facility]; Dateof exam 20220730; I believe a reinterpretation of this exam may alter care ofPatient. Yes; ; L adnexal mass TECHNIQUE: Images were obtained and VRE COMPARISON: CT from 07/29/2022 FINDINGS: By history the patient is status post cystectomy and LEFT nephrectomy.The images presented show a large cystic lesion in the RIGHT adnexa withperipheral nodularity. The measurements obtained were 13.7 x 11.5 by zzhkairjyiwje23.8 cm. The images do not show definite [...] patients who have questions please contactthe health critical care physician assistant that requested your imaging first. Electronically signed by: Sandra Henderson MD, [facility]([phone]), at 08/02/2022 10:18 AM Oumou Villar MD IMG OUTSIDE INTERPRE TATION ORDERABLES * BLOOD GAS 2 VENOUS (08/01/2022 10:23 PM EST) pH, Venous 7.36 7.32 - 7.42 [facility] PCO2, Venous 47 41 - 51 mmHg [facility] PO2, Venous 31 25 - 40 mmHg [facility] Bicarbonate, Venous 25.9 mmol/L [facility] Base Excess, Venous 0.4 mmol/L [facility] Hgb Blood Gas 14.4 11.7 - 15.5 g/dL [facility] Oxyhemoglobin, Venous 58.3 % [facility] Carboxyhemoglob in, Venous 8.9 % [facility] Comment: Nonsmokers: 0.5-1.5% COHB Smokers: Variable, but usually less than 10% Toxic: 20-30% COHB Lethal: Greater than 60% COHB Methemoglobin, Venous 0.1 <=1.5 % [facility] Na Whole Blood 137 135 - 145 mmol/L [facility] K Whole Blood 4.0 3.5 - 5.0 mmol/L [facility] Comment: Please note: Patients with WBC >100,000 may have falsely elevated Potassium levels. Contact the Clinical Chemistry Laboratory if there are any questions. ICa Whole Blood 1.21 1.15 - 1.33 mmol/L [facility] Comment: Note: ??Total bilirubin higher than 20 mg/dL may lead to falsely low ionized calcium. CL Whole Blood 100 98 - 107 mmol/L [facility] Gluc Whole Bld 95 65 - 199 mg/dL [facility] Comment:Diabetes: >=200 mg/d L plus symptoms Lactate WB 1.6 0.5 - 2.2 mmol/L [facility] Blood Gas Source Venous [facility] Blood 08/01/2022 10:2 3 PM EST 08/01/2022 10:23 PM EST Oumou Villar MD POINT OF CARE TEST O RDERAMOLLY [facility] [place] [address] * CEA (08/01/2022 10:15 PM EST) Carcinoembryonic Antigen 2.2 <=3.8 ng/mL [facility] Comment: Reference range: ??(20-69 years): Non-smoker: [...] Villar MD CHEMISTRY ORDERABLES Performing Organization Address [facility] Co de Phone Number [facility] [place] [address] * Carbohydrate Antigen 19-9 (08/01/2022 10:15 PM EST) CA 19-9 7.1 <=35.0 u/ml [facility] Comment: This result was generated using a Greg Lynn immunoassay. ??Results obtained from other methods or manufacturers cannot be used interchangeably with this method. Blood Venous Draw / Unknown 08/01/2022 10:15 PM EST 08/01/2022 10:36 PM EST Narrative Resulting Agency Comment Spec In Lab Oumou Villar MD CHEMISTRY ORDERABLES Performing Organization Address [facility] Co de Phone Number [facility] [place] [address] * (ABNORMAL) Cancer Antigen 125 (08/01/2022 10:15 PM EST) CA 125 40.8(H) <=38.1 unit/mL [facility] Comment: CA 125 Reference Interval ??Postmenopausal: [...] In Lab Oumou Villar MD CHEMISTRY ORDERABLES [facility] [place] [address] * Type and Screen Validity (08/01/2022 10:15 PM EST) Pathologist [facility] T&S only valid at [facility] Comment:This Type and Screen result is only valid at the [facility] Blood 08/01/2022 10:1 5 PM EST 08/01/2022 10:28 PM EST Narrative Resulting Agency Comment Spec In Lab Nai Wright MD BLOOD BANK LAB ORDER GILBERTO Performing Organization Address City/[facility]/ZIP Co de Phone Number [facility] [place] [place] [address] * ABORH Recheck Status (08/01/2022 10:15 PM EST) [facility] ABORH Recheck Order Order Placed [facility] ABORH Type Recheck Not Performed [facility] Blood 08/01/2022 10:1 5 PM EST 08/01/2022 10:28 PM EST Narrative Resulting Agency Comment Spec In Lab Nai Wright MD BLOOD BANK LAB ORDER GILBERTO Performing Organization Address City/[facility]/ZIP Co de Phone Number [facility] [place] [place] [address] * Gold Tube HOLD (08/01/2022 10:15 PM EST) [facility] Gold Hold Sample in lab. [facility] Blood Venous Draw / Unknown 08/01/2022 10:15 PM EST 08/01/2022 10:29 PM EST Nai Wright MD CHEMISTRY ORDERABLES [facility] [place] [address] * (ABNORMAL) Differential, Automated (08/01/2022 10:15 PM EST) Pathologist [facility] Neutrophil % 65.2 % [facility] Neutrophil Absolute 8.26(H) 1.70 - 6.10 x10(3)/ L [facility] Lymph % 26.2 % [facility] Lymphocytes Abs 3.3(H) 0.9 - 3.2 x10(3)/[facility] Monocyte % 6.9 % [facility] Monocyte Abs 0.9 0.3 - 0.9 x10(3)/[facility] Eos % 0.6 % [facility] Eosinophils Abs 0.1 0.0 - 0.4 x10(3)/[facility] Basophil % 0.1 % [facility] Baso Absolute 0.0 0.0 - 0.1 x10(3)/[facility] Immature Gran % 1.00 % [facility] Comment: Immature granulocytes(IG's)percentage and absolute count will include metamyelocytes, myelocytes, and promyelocytes. Blood smears from CBCs yielding IG's will be scanned manually for concordance. If this scan disagrees with the automated IG or if promyelocytes are noted, a manual differential will be performed. Immature Gran Absolute 0.13(H) 0.00 - 0.04 x10(3)/[facility] Blood 08/01/2022 10:1 5 PM EST 08/01/2022 10:29 PM EST Narrative Resulting Agency Comment Spec In Lab Nai Wright MD HEMATOLOGY ORDERABLE S Performing Organization Address City/State/[facility] Co de Phone Number [facility] [place] [address] * (ABNORMAL) Hemogram (08/01/2022 10:15 PM EST) White Blood Cell 12.6(H) 4.0 - 9.5 x10(3)/ L [facility] Red Blood Cell 4.25 4.00 - 5.21 x10(6)/[facility] Hemoglobin 13.7 11.7 - 15.5 g/dL [facility] Hematocrit 39.3 35.7 - 45.8 % [facility] Mean Cell Volume 92.5 82.6 - 94.4 fL [facility] Mean Cell Hemoglobin 32.2(H) 27.1 - 32.0 pg [facility] Mean Cell Hemoglobin Concentration 34.9 31.7 - 35.0 g/dL [facility] Platelet 286 145 - 357 x10(3)/mc L [facility] RDW Standard Deviation 43.4 37.0 - 46.0 fL [facility] RDW coefficient of variation 12.6 11.5 - 14.1 % [facility] Mean Platelet Volume 9.2 7.6 - 12.9 fL [facility] NRBC% auto 0.0 % [facility] NRBC Absolute 0.000 0.000 - 0.000 x10(3)/mc L [facility] Blood 08/01/2022 10:1 5 PM EST 08/01/2022 10:29 PM EST Narrative Resulting Agency Comment Spec In Lab Nai Wright MD HEMATOLOGY ORDERABLE S [facility] [place] [address] * Antibody screen (08/01/2022 10:15 PM EST) Ab Screen Interp Negative [facility] Expires at [id number] on: 08/04/2022 [facility] Blood 08/01/2022 10:1 5 PM EST 08/01/2022 10:28 PM EST Narrative Resulting Agency Comment Spec In Lab Nai Wright MD BLOOD BANK LAB ORDER GILBERTO [facility] [place] [address] * ABO/Rh Typing (08/01/2022 10:15 PM EST) ABORH Type O Pos [facility] Blood 08/01/2022 10:1 5 PM EST 08/01/2022 10:28 PM EST Narrative Resulting Agency Comment Spec In Lab Nai Wright MD BLOOD BANK LAB ORDER GILBERTO Performing Organization Address [facility] Co de Phone Number [facility] [place] [address] * Lipase (08/01/2022 10:15 PM EST) Lipase 11 0 - 60 unit/L [facility] Blood 08/01/2022 10:1 5 PM EST 08/01/2022 10:29 PM EST Narrative Resulting Agency Comment Spec In Lab Oumou Villar MD CHEMISTRY ORDERABLES Performing Organization Address [facility] Co de Phone Number [facility] [place] [address] * Hepatic Function Panel (08/01/2022 10:15 PM EST) Pathologist [facility] Protein, Total 7.2 6.1 - 8.0 g/dL [facility] Albumin 4.4 3.2 - 5.2 g/dL [facility] Aspartate Aminotransferase 13 0 - 30 unit/L [facility] Alanine Aminotransferase 23 0 - 30 unit/L [facility] Alkaline Phosphatase 84 35 - 105 unit/L [facility] Bilirubin, Total 0.2 0.2 - 1.3 mg/dL [facility] Bilirubin, Direct 0.1 0.0 - 0.3 mg/dL [facility] Blood 08/01/2022 10:1 5 PM EST 08/01/2022 10:29 PM EST Narrative Resulting Agency Comment Spec In Lab Oumou Villar MD CHEMISTRY ORDERABLES Performing Organization Address [facility]/ZIP Co de Phone Number [facility] [place] [address] * Basic Metabolic Panel (non-fasting) (08/01/2022 10:15 PM EST) Glucose 93 65 - 199 mg/dL [facility] Comment:Diabetes: >=200 mg/d L plus symptoms Blood Urea Nitrogen 13 8 - 18 mg/dL [facility] Creatinine 0.78 0.70 - 1.20 mg/dL [facility] Sodium 136 135 - 145 mmol/L [facility] Potassium 4.1 3.5 - 5.0 mmol/L [facility] Comment: Please note: ??Patients with WBC >100,000 may have falsely elevated Potassium levels. ??For accurate Potassium quantification in these patients send serum separator tube (gold top) for subsequent determinations. ??Contact the Clinical Chemistry Laboratory if there are any questions. Chloride 101 98 - 107 mmol/L [facility] Carbon Dioxide 23 22 - 31 mmol/L [facility] Anion Gap 12 5 - 15 mmol/L [facility] Calcium 9.2 8.5 - 10.5 mg/dL [facility] Est Glomerular Filtration Rate 86 >=60 mL/min/1. 73 m?? [facility] Comment: This patient's estimated GFR was [...] Villar MD CHEMISTRY ORDERABLES Performing Organization Address City/State/[facility] Co de Phone Number [facility] [place] [place] [address] * (ABNORMAL) Urinalysis with reflex Culture (08/01/2022 10:10 PM EST) Glucose, Urine Dipstick Negative Negative mg/dL [facility] Protein, Urine Dipstick Negative Negative mg/dL [facility] Bilirubin, Urine Dipstick Negative Negative mg/dL [facility] Comment: Clinical correlation required for positive Urine Bilirubin results as false positive may occur with some drugs and drug related products. If a false positive is suspected a serum total bilirubin should be considered if clinically indicated. Urobilinogen, Urine Dipstick Normal Normal mg/dL [facility] pH, Urn (dipstick) 6.5 5.0 - 8.0 [facility] Blood, Urine Dipstick Negative Negative mg/dL [facility] Ketone, Urine Dipstick Negative Negative mg/dL [facility] Nitrite, Urine Dipstick Negative Negative [facility] Leukocytes, Urine Dipstick Negative Negative mcL [facility] Appearance, Urine Dipstick Clear Clear [facility] Specific [place] Urine Automated 1.004(L) 1.005 - 1.030 [facility] Color, Urine Dipstick Yellow Yellow [facility] Reflex to Culture No [facility] Urine 08/01/2022 10:1 0 PM EST 08/01/2022 10:29 PM EST Narrative Resulting Agency Comment Spec In Lab Oumou Villar MD URINE ORDERABLES [facility] [place] [address] * Film Library- Storage Only Ultrasound Study (07/30/2022 12:00 AM EST) Narrative Dicom, Auditing User - 08/01/2022 9:52 PM EST This exam is auto-finalizing. It's purpose is for storage only. Kayleigh [employer] FILM LIBRARY ORD ERABLES * Film Library- Storage Only CT Spine (07/29/2022 12:05 AM EST) Narrative Dicom, Auditing User - 08/01/2022 9:53 PM EST This exam is auto-finalizing. It's purpose is for storage only. Kayleigh Ale Novia [facility] FILM LIBRARY ORD ERABLES * Film Library- Storage Only CT Chest Abdomen Pelvis (07/29/2022 12:00 AM EST) Narrative Dicom, Auditing User - 08/01/2022 9:51 PM EST This exam is auto-finalizing. It's purpose is for storage only. Kayleigh KamaraRiverOnee [facility] FILM [...] , Routine 09 (Given - Provider: Jazlyn Hahn, OLIVIA)1430 (Not Given - Provider: Jazlyn Hahn RN - Reason: Patient/family refused)2039 (Given - Provider: Hazel Tadeo, OLIVIA) 0408 (Given - Provider: Surendra Cassidy, OLIVIA)0918 (Given - Provider: Keyla Trejo, OLIVIA)1353 (Given [...] giving, Routine 09 (Given - Provider: Jazlyn Hahn, OLIVIA) 09 (Given - Provider: Keyla Trejo, [...] Routine 172 (Given - Provider: Herlinda Flores RN)2245 (Given [...] OLIVIA) 0242 (Given - Provider: Tosin Mcknight, RN)0911 (Given - Provider: Jazlyn Hahn, OLIVIA) metoprolol [...] RN)2100 (Given - Provider: Tosin Mcknight, OLIVIA) 0911 (Given - Provider: Jazlyn Hahn, RN)203 (Given - Provider: Hazel Tadeo RN) 0918 (Given - Provider: Keyla Trejo, OLIVIA) [...] Routine 0912 (Given - Provider: Jazlyn Hahn, OLIVIA) 0919 (Given - Provider: Keyla Trejo, OLIVIA) Continuous Medication Order 08/06/2022 08/07/2022 08/08/2022 dextrose [...] mg/mL) in sodium chloride 0.9% 50 mL BOILERHOUSE MECHANIC infusion syringe (CANCELED) Intravenous, BOILERHOUSE MECHANIC ONLY, Starting on Teresa 08/05/22 at 1200, [...] Routine documented in this encounter Care Teams Relief Docking Master Relationship Specialty Start Date End Date Lena Womack, JACKIE PCP - General Family Medicine 08/02/22 04/07/24 documented as of this encounter
--- OUTSIDE RECORDS SUMMARY | 2024-06-21 20:11 | XMS_ITS | Encounter Summary ---
[place] [address] Care Team Providers Care Curbstone Setter Name Role Phone Unavailable Primary Care Provider Unavailabl e Reason for Visit * Reason Onset Date Comments Medication Refill 10/08/2015 Encounter Details Date Type Department Care Team (Late st Contact Info) Description 10/08/2015 [place] [address] Daniela Monsalve MD Migraine without aura and without status migrainosus, [...]
--- OUTSIDE RECORDS SUMMARY | 2024-06-21 20:11 | XMS_ITS | Encounter Summary ---
[place] [address] Care Team Providers Care Obstetrics Nurse Name Role Phone Unavailable Primary Care Provider Unavailabl e Reason for Visit * Reason Comments Injections Encounter Details Date Type Department Care Team (Late st Contact Info) Description 11/18/2015 11:45 AM EDT [place] [address] Daniela Monsalve MD Migraine without aura and [...] Blood loss: <1 cc Daniela Monsalve MD [facility] * Daniela Monsalve MD - 11/18/2015 [...] Blood loss: <1 cc Daniela Monsalve MD [facility] documented in this encounter Plan of [...] Blood loss: <1 cc Daniela Monsalve MD [facility] Daniela Monsalve MD NEUROLOGY ORDERABLES * [...] Blood loss: <1 cc Daniela Monsalve MD [facility] Daniela Monsalve MD NEUROLOGY ORDERABLES documented [...]
--- OUTSIDE RECORDS SUMMARY | 2024-06-21 20:11 | XMS_ITS | Encounter Summary ---
[place] [address] Care Team Providers Care Photoengraving Supervisor Name Role Phone Unavailable Primary Care Provider Unavailabl e Reason for Referral * Consultation (Routine) - Closed Specialty Diagnoses / Procedures Referred By Cosmo cortez Referred To Contact Neurology Diagnoses Cervical spondylosis without myelopathy Bilateral occipital neuralgia Rita Garcia MD [facility] [place] [address] [facility] [place] Neu[place] [address] [place] [phone] Referral ID Status Reason Start Date Expiration Date V isits Requested Visits Authorized [id number] Closed Consult, Test & Treat 09/25/2014 09/25/2015 1 1 Reason for Visit * Reason Comments Pain Management Cervicalgia Encounter Details Date Type Department Care Team (Late st Contact Info) Description 09/25/2014 7:45 AM EDT Follow[place] [address] Rita Garcia MD [address] [place] [address] Rita Garcia MD [facility] [place] [address] Cervical spondylosis without myelopathy; Bilateral occipital neuralgia [...] MAMMOPLASTY, EVA performed by DEMETRA SOMMERS at [facility] MAIN OR ??? Hysterectomy ALLERGIES: Allergenic extracts; [...]
--- OUTSIDE RECORDS SUMMARY | 2024-06-21 20:11 | XMS_ITS | Encounter Summary ---
[place] [address] Care Team Providers Care Houseman Name Role Phone Unavailable Primary Care Provider Unavailabl e Reason for Referral * MRI/CAT Scan (Routine) - Specialty Diagnoses / Procedures Referred By Cosmo cortez Referred To Contact Radiology Diagnoses Carpal tunnel syndrome, bilateral Procedures MRI Brain With/WO Contrast Daniela Monsalve MD [facility] [place] [address] [place] [address] Referral ID Status Reason Start Date Expiration Date V isits Requested Visits Authorized [id number] 03/03/2015 03/02/2016 1 1 Reason for Visit * Reason Comments Headache Encounter Details Date Type Department Care Team (Late st Contact Info) Description 02/24/2015 12:45 PM EDT [place] [address] Daniela Monsalve MD Nye, Barbara, MD [facility] [place] [address] Intractable migraine with aura without status migrainosus [...] were not included. Office Number: (Rebekah - [place]) Clinic nurse number (for most issues) (Elyssa) For Prescription Refills: (Stan) Please call for refills when you have one month left on your medication, we have 48 hours from the time you call to get the medication refill placed. Please call the clinic rather then using - or e-mail, as the communication is better [...] you require a call back Thank you [facility] Carpal Tunnel Syndrome: After Your Visit [...] Where can you learn more? Visit our ReSnap information library at [email or web address] You can also view health information on Leads Direct, your personal patient account. Log in or sign up today. Enter R432 in the search box to learn more about Carpal Tunnel Syndrome: After Your Visit. ?? [phone] Inductly. Care instructions adapted under license by [facility]. This care instruction is for use with your licensed healthcare professional. If you have questions about a medical condition or this instruction, always ask your healthcare professional. Inductly disclaims any warranty or liability for your use of this information. Content Version: 10.4.082166; Current as of: April 19, 2014 [facility] Migraine Headache: After Your Visit Your [...] more? Visit our health information library at [email or web address] You can also view health information on Leads Direct, your personal patient account. Log in or sign up today. Enter U690 in the search box to learn more about Migraine Headache: After Your Visit. ?? [phone] Inductly. Care instructions adapted under license by [facility]. This care instruction is for use with your licensed healthcare professional. If you have questions about a medical condition or this instruction, always ask your healthcare professional. Inductly disclaims any warranty or liability for your use of this information. Content Version: 10.4.570259; Current as of: August 15, 2013 documented [...] Dr. Sena Michael MD - Neurologist in [facility] 05/09/2013 - Assessment: Chronic Tension type headache, occipital neuralgiaand history or menstrual migraine. She [place] been [place] [facility] [place] [facility] for evaluation of c ervicogenic [...] - she has not yet seen an meat washer. When she had her uterus there was [...] the of her father (hit by drunk caterpillar driver) Michelle Previous work-up: MRI Cervical Spine 07/17/2014: Mid [...] had difficulty assessing the pain. ONB in 2013 - very helpful Current Medications: Amitriptyline 100 [...] Monsalve in 8-10 weeks Daniela Monsalve MD [facility] [place] This note was created using QingKe speech recognition software. Please pardon any errors. [...] Blood loss: <1 cc Daniela Monsalve MD [facility] [place] documented in this encounter Plan of Treatment Scheduled Orders Name Type Priority Associated Diagnoses [...] MRI. Daniela Monsalve MD IMG MRI ORDERABLES * TSH (02/27/2015 12:26 PM EDT) Thyroid Stimulating Hormone 2.20 0.27 - 4.20 mcIU/mL PER[facility] MILLDONALDIUM Blood specimen (specimen) 02/27/2015 12:26 PM EDT 02/27/2015 12:40 PM EDT Narrative Resulting Agency Comment Spec In Lab Daniela Monsalve MD CHEMISTRY ORDERABLES PERCY COHENENNIUM * NERVE BLOCK - OCCIPITAL (02/24/2015 4:03 [...] Blood loss: <1 cc Daniela Monsalve MD [facility] [place] Daniela Monsalve MD NEUROLOGY ORDERABLES documented [...]
--- OUTSIDE RECORDS SUMMARY | 2024-06-21 20:11 | XMS_ITS | Encounter Summary ---
Author Organization [facility] [place] [address] Care Team Providers Care Clothing Pattern Preparer Name Role Phone Unavailable Primary Care Provider Unavailabl e Reason for Visit * Reason Comments Migraine Botox Injection Encounter Details Date Type Department Care Team (Late st Contact Info) Description 10/08/2015 4:30 PM EDT [place] [phone] Daniela Monsalve MD Migraine without aura and [...] 5:01 PM EDT Office Number: (Rebekah [facility]) Clinic nurse number for most issues and prescription refills (Stan) (Mari) (Rosaura) Please call for refills when [...] Dr. Sena Michael MD - Neurologist in [facility] 05/09/2013 - Assessment: Chronic Tension type headache, occipital neuralgia and history or menstrual migraine. She has been seen in the [facility] for evaluation of cervicogenic headache [...] - she has not yet seen an senior linux unix engineer. When she had her uterus there was [...] the of her father (hit by drunk flag car driver) Seroquel Previous work-up: MRI Cervical [...] in 2012 - very helpful ONB 02/24/2015 (Darke) - may have helped for a day or 2 ?? Maybe longer Current Medications: Amitriptyline 100 mg qHS Gabapentin 300 mg TID Atenolol 50mg Tizanidine 4 mg Naproxen sodium 550mg twice a day as needed Vistaril 25mg twice a day as needed Migranal Nasal spray BOTOX APPROVED 02/27/15-05/29/15 PA #: [id number] 200 UNITS, FOR ONE DOSE. Date Procedure MIDAS 04/30/2015 Botox # 1 60, 66/90 CASTELLANOS days, 6/10 CASTELLANOS intensity 07/15/2015 Botox # 2 18, CASTELLANOS days, 7/10 CASTELLANOS intensity 10/08/2015 Botox # 3 24, CASTELLANOS days, 10/13 CASTELLANOS intensity Treatments not tried: Topamax (Has [...] by mouth nightly. ??? Miscellaneous Medical [facility] Bilateral wrist splints for CTS 2 each [...] dihydroergotamine (MIGRANAL) 0.5 mg/pump act. (4 mg/mL) [place], Non-Aerosol Prime the pump 4 times, Place [...] planned in 12 weeks Daniela Monsalve MD [facility] Neurology This note was created using AgSquared speech recognition software. Please pardon any errors. [...] units divided between 2 sites in the manager library muscles, 5 units into 1 site in [...] without any immediate complications. Daniela Monsalve MD [facility] Neurology Migraine Disability Assessment (patient did not [...] note Date: 10/08/2015 Patient: Katheryn Carranza : ??1960 Procedure: Botox injections (PREEMPT protocol) Indications: Chronic Migraine without aura Date ??Procedure ?? MIDAS 04/30/2015 ??Botox # 1 ?? 60, 66/90 CASTELLANOS days, 6/10 CASTELLANOS intensity ?? 07/15/2015 ??Botox # 2 ??18, CASTELLANOS days, 7/10 CASTELLANOS intensity ?? 10/08/2015 ??Botox # 3 ??24, 90 CASTELLANOS days, 5/10 CASTELLANOS intensity ?? Risk and [...] units divided between 2 sites in the manager library muscles, 5 units into 1 site in [...] without any immediate complications. Daniela Monsalve MD [facility] Neurology Migraine Disability Assessment (patient did not [...] 5:23 PM EDT) Neutrophil % 53.5 % [facility] Neutrophil Absolute 5.02 1.50 - 6.30 x10(3)/[facility] Lymph % 39.8 % [facility] Lymphocytes Abs 3.7(H) 1.0 - 3.6 x10(3)/[facility] Monocyte % 4.1 % [facility] Monocyte Abs 0.4 0.2 - 1.0 x10(3)/[facility] Eos % 2.2 % [facility] Eosinophils Abs 0.2 0.0 - 0.5 x10(3)/[facility] Basophil % 0.1 % [facility] Baso Absolute 0.0 0.0 - 0.2 x10(3)/ L [facility] Immature Gran % 0.30 % [facility] Comment: Immature granulocytes(IG's)percentage and absolute count will include metamyelocytes, myelocytes, and promyelocytes. Blood smears from CBCs yielding IG's will be scanned manually for concordance. If this scan disagrees with the automated IG or if promyelocytes are noted, a manual differential will be performed. Immature Gran Absolute 0.03 0.00 - 0.05 x10(3)/ L [facility] Blood specimen (specimen) 10/08/2015 5:23 PM EDT 10/08/2015 5:36 PM EDT Narrative Resulting Agency Comment Spec In Lab Daniela Monsalve MD HEMATOLOGY ORDERABLE S [facility] [place] [address] * (ABNORMAL) Hemogram (10/08/2015 5:23 PM EDT) White Blood Cell 9.4 4.0 - 10.0 x10(3)/[facility] Red Blood Cell 4.07 3.93 - 5.22 x10(6)/[facility] Hemoglobin 13.2 11.2 - 15.7 gm/dL [facility] Hematocrit 38.7 34.0 - 45.0 % [facility] Mean Cell Volume 95.1(H) 79.0 - 94.[address] [facility] Mean Cell Hemoglobin 32.4(H) 26.6 - 32.[address] [facility] Mean Cell Hemoglobin Concentration 34.1 32.0 - 36.5 gm/dL [facility] Platelet 260 145 - 370 x10(3)/[facility] RDW Standard Deviation 46.4(H) 35.0 - 46.[address] [facility] RDW coefficient of variation 13.3 10.9 - 14.4 % [facility] Mean Platelet Volume 9.6 9.0 - 12.[address] [facility] Blood specimen (specimen) 10/08/2015 5:23 PM EDT 10/08/2015 5:36 PM EDT Narrative Resulting Agency Comment Spec In Lab Daniela Monsalve MD HEMATOLOGY ORDERABLE S Performing Organization Address City/[facility]/ZIP Co de Phone Number [facility] [place] [address] * (ABNORMAL) Basic Metabolic Panel (non-fasting) (10/08/2015 5:23 PM EDT) Glucose 105 65 - 199 mg/dL [facility] Comment:Diabetes: >=200 mg/d L plus symptoms Blood Urea Nitrogen 6(L) 8 - 18 mg/dL [facility] Creatinine 0.77 0.70 - 1.20 mg/dL [facility] Comment: Please note that the pediatric reference intervals supplied above were not validated at [facility]. Results from pediatric patients should be interpreted in conjunction to the patient's age, height and muscle mass. Sodium 142 135 - 145 mmol/L [facility] Potassium 3.9 3.5 - 5.0 mmol/L [facility] Comment: Please note: ??Patients with WBC >100,000 may have falsely elevated Potassium levels. ??For accurate Potassium quantification in these patients send serum separator tube (gold top) for subsequent determinations. ??Contact the Clinical Chemistry Laboratory if there are any questions. Chloride 103 98 - 107 mmol/L [facility] Carbon Dioxide 26 22 - 31 mmol/L [facility] Anion Gap 13 5 - 15 mmol/L [facility] Calcium 9.3 8.5 - 10.5 mg/dL [facility] Est Glomerular Filtration Rate >60 >=60 [facility] Comment: This estimated GFR [...] the following links into your internet browser. [email or web address] Blood specimen (specimen) 10/08/2015 5:23 PM EDT 10/08/2015 5:36 PM EDT Narrative Resulting Agency Comment Spec In Lab Daniela Monsalve MD CHEMISTRY ORDERABLES [facility] [place] [address] documented in this encounter Visit Diagnoses Diagnosis [...]
--- OUTSIDE RECORDS SUMMARY | 2024-06-21 20:11 | XMS_ITS | Encounter Summary ---
Author Organization [facility] Address [facility] [place] [address] Care Team Providers Care Farm Boss Name Role Phone Unavailable Primary Care Provider Unavailabl e Encounter Details Date Type Department Care Team (Latest Contact Info) Description 02/27/2015 10:00 AM EDT - 02/27/2015 12:06 PM EDT Hospital Encounter XRay at [address] [place] [id number] Bilateral knee pain Social History Tobacco Use [...] tablet Take 50 mg by mouth daily. naproxen sodium (ANAPROX DS) 550 mg Tablet Take 1 tablet by mouth 2 times daily as needed (Mild to Moderate Headache). Can be taken with or without Vistaril 60 tablet 12 02/24/2015 03/29/2016 dihydroergotamine (MIGRANAL) 0.5 mg/pump act. (4 mg/mL) [place], Non-Aerosol Prime the pump 4 times, Place [...] Joint Team Standing Alignment AP Lat Schuss [place] Bilateral (02/27/2015 10:24 AM EDT) Anatomical Region [...]
--- OUTSIDE RECORDS SUMMARY | 2024-06-21 20:11 | XMS_ITS | Encounter Summary ---
Author Organization [facility] [place] [address] Care Team Providers Care Metal Tank Builder Name Role Phone Unavailable Primary Care Provider Unavailabl e Encounter Details Date Type Department Care Team (Latest Contact Info) Description 11/25/2015 1:35 PM EDT Hospital [place] [address] Hunter Vickers MD Abnormal findings on diagnostic imaging of breast [...] dihydroergotamine (MIGRANAL) 0.5 mg/pump act. (4 mg/mL) [place], Non-Aerosol Prime the pump 4 times, Place [...] core biopsy specimens were obtained using a Suros Eviva 9g 20mm device. A specimen radiograph confirms the calcifications of interest to be contained within it A Smark Eviva cylinder marker clip was deployed. A follow-up mammogram was performed in the CC and True Lateral projections and demonstrates the clip in the biopsy bed COMPLICATIONS: None. PROCEDURAL ATTESTATION: Resident: Skip Jain was present with the resident for the wood component(s) of the procedure and otherwise remained immediately available for the duration of the procedure. I attest to having personally viewed the images/test and approve the above interpretation. IMAGING DIFFERENTIAL DIAGNOSIS: Dystrophic calcification, fibroadenoma calcification, DCIS PATHOLOGIC DIAGNOSIS: Benign fat necrosis Hunter Vickers MD IM MAMMO ORDERABLES documented in this encounter Visit Diagnoses Diagnosis Abnormal findings on diagnostic imaging of breast Other (abnormal) findings on radiological examination of breast documented in this encounter
--- OUTSIDE RECORDS SUMMARY | 2024-06-21 20:11 | XMS_ITS | Encounter Summary ---
[place] [address] Care Team Providers Care Metal Temperer Name Role Phone Unavailable Primary Care Provider Unavailabl e Encounter Details Date Type Department Care Team (Late st Contact Info) Description 02/24/2015 [place] [address] Dain Mabry Social History Tobacco Use Types [...]
--- OUTSIDE RECORDS SUMMARY | 2024-06-21 20:11 | XMS_ITS | Encounter Summary ---
[place] [address] Care Team Providers Care First Grade Teacher Name Role Phone Unavailable Primary Care Provider Unavailabl e Encounter Details Date Type Department Care Team (Late st Contact Info) Description 11/26/2015 Telephone [place] [address] Monica Schafer MD [facility] [place] [address] Social History Tobacco Use Types Packs/Day Years [...]
--- OUTSIDE RECORDS SUMMARY | 2024-06-21 20:11 | XMS_ITS | Encounter Summary ---
[place] [address] Care Team Providers Care Pump House Engineer Name Role Phone Unavailable Primary Care Provider Unavailabl e Reason for Referral * MRI/CAT Scan (Routine) - Specialty Diagnoses / Procedures Referred By Cosmo cortez Referred To Contact Radiology Diagnoses Carpal tunnel syndrome, bilateral Procedures MRI Brain With/WO Contrast Daniela Monsalve MD [facility] [place] [address] [place] [address] Referral ID Status Reason Start Date Expiration Date V isits Requested Visits Authorized [id number] 03/03/2015 03/02/2016 1 1 Encounter Details Date Type Department Care Team (Latest Contact Info) Description 03/04/2015 3:28 PM EDT - 03/04/2015 11:59 PM EDT Hospital [place] [address] CLINIC, Daniela Bowie MD Carpal tunnel syndrome, bilateral Discharge Disposition: Home [...] dihydroergotamine (MIGRANAL) 0.5 mg/pump act. (4 mg/mL) [place], Non-Aerosol Prime the pump 4 times, Place [...] Carranza AGE: 54 y.o. : 1960 [address] [facility] [address] Female [phone] (home) No relevant phone numbers on file. SANTI G TANEY, LABORER GOLF COURSE (General) None (Regular Care Provider) Allergies Allergen [...] ( xx ) You must have a new car driver present when you check in. This patient has been informed that they require a new car driver to drive them home after this procedure. In the absence of a new car driver, IR will not be able to sedate for your scan. Pt verbalized understanding of these instructions during the pre-procedure education via phone. Yes [place] of new car driver: Phone number PRIOR SCAN DATE/S SEDATION TYPE SUCCESSFUL 09/29/12 MRI lumbar spine Ativan 1mg po x1 yes 03/04/15 MRI Brain Ativan 1 mg x 2. Yes PT STATED TO HUMAN RESOURCE ADVISOR THAT THE SEDATION WAS EFFECTIVE FOR SCAN: [...] cervical nek pain evaluation forsecondary causes of CASTELALNOS TECHNIQUE: MR the brain performed prior to [...]
--- OUTSIDE RECORDS SUMMARY | 2024-06-21 20:11 | XMS_ITS | Encounter Summary ---
Author Organization Replaced By [facility] Address [facility] [place] [address] Care Team Providers Care Nuclear Auxiliary Operator Name Role Phone Unavailable Primary Care Provider Unavailabl e Reason for Visit * Reason Comments Migraine Botox Injection * High Dollar Medication (Routine) - Closed Specialty Diagnoses / Procedures Referred By Contac t Referred To Contact Neurology Diagnoses Chronic migraine without aura, not intractable, without status migrainosus Procedures CHEMODENERVATION, MEDICAL TC ONABOTULINUMTOXINA, 1 UNIT, INJECTION Botox Daniela Monsalve MD [facility] [place] [address] Referral ID Status Reason Start Date Expiration Date V isits Requested Visits Authorized [id number] Closed Evaluate and Treat 06/30/2015 06/30/2016 6 6 Encounter Details Date Type Department Care Team (Late st Contact Info) Description 07/15/2015 12:30 PM EST Office [place] [address] Daniela Monsalve MD Carpal tunnel syndrome, bilateral; Migraine without aura [...] Dr. Sena Michael MD - Neurologist in [facility] 05/09/2013 - Assessment: Chronic Tension type headache, occipital neuralgia and history or menstrual migraine. She has been seen in the [facility] for evaluation of cervicogenic headache [...] - she has not yet seen an chief psychologist. When she had her uterus there was [...] the of her father (hit by drunk laborer driver) Michelle Previous work-up: MRI Cervical Spine [...] in 2012 - very helpful ONB 02/24/2015 (Gricel) - may have helped for a day or 2 ?? Maybe longer Current Medications: Amitriptyline 100 mg qHS Gabapentin 300 mg TID Atenolol 50mg Tizanidine 4 mg Naproxen sodium 550mg twice a day as needed Vistaril 25mg twice a day as needed Migranal Nasal spray BOTOX APPROVED 02/27/15-05/29/15 PA #: [id number] 200 UNITS, FOR ONE DOSE. Treatments not [...] dihydroergotamine (MIGRANAL) 0.5 mg/pump act. (4 mg/mL) [place], Non-Aerosol Prime the pump 4 times, Place [...] Botox injections in follow-up. Daniela Monsalve MD [facility] Neurology This note was created using [email or web address] speech recognition software. Please pardon any errors. [...] Blood loss: <1 cc Daniela Monsalve MD [facility] Neurology * Daniela Monsalve MD - 07/15/2015 12:33 PM ESTAssociated Order(s): [...] units divided between 2 sites in the pilot plant technician muscles, 5 units into 1 site in [...] without any immediate complications. Daniela Monsalve MD [facility] Neu[facility] Migraine Disability Assessment # [...] Blood loss: <1 cc Daniela Monsalve MD [facility] Neurology Daniela Monsalve MD NEUROLOGY ORDERABLES * [...] units divided between 2 sites in the pilot plant technician muscles, 5 units into 1 site in [...] without any immediate complications. Daniela Monsalve MD [facility] Neu[facility] Migraine Disability Assessment # [...]
--- OUTSIDE RECORDS SUMMARY | 2024-06-21 20:11 | XMS_ITS | Encounter Summary ---
[place] [address] Care Team Providers Care Oceanic Sciences Professor Name Role Phone Unavailable Primary Care Provider Unavailabl e Reason for Visit * Reason Onset Date Comments Medication Refill 03/29/2016 Encounter Details Date Type Department Care Team (Late st Contact Info) Description 03/29/2016 [place] [address] Daniela Monsalve MD Social History Tobacco Use Types Packs/Day Years [...]
--- OUTSIDE RECORDS SUMMARY | 2024-06-21 20:11 | XMS_ITS | Encounter Summary ---
Author Organization [facility] Address [facility] [place] [address] Care Team Providers Care 3Rd Mate Name Role Phone Unavailable Primary Care Provider Unavailabl e Encounter Details Date Type Department Care Team (Latest Contact Info) Description 02/27/2015 12:07 PM EDT - 02/27/2015 11:59 PM EDT [place] [address] Daniela Monsalve MD Carpal tunnel syndrome, bilateral Discharge Disposition: [...] dihydroergotamine (MIGRANAL) 0.5 mg/pump act. (4 mg/mL) [place], Non-Aerosol Prime the pump 4 times, Place [...] Lab Daniela Monsalve MD CHEMISTRY ORDERABLES PERCY MALLORYROD documented in this encounter Visit Diagnoses Diagnosis Carpal tunnel syndrome, bilateral Carpal tunnel syndrome documented in this encounter
--- OUTSIDE RECORDS SUMMARY | 2024-06-21 20:11 | XMS_ITS | Encounter Summary ---
Author Organization [facility] [place] [address] Care Team Providers Care Flexo Operator Name Role Phone Unavailable Primary Care Provider Unavailabl e Reason for Visit * Reason Comments Bilateral Carpal Tunnel Syndrome * Consultation (Routine) - Closed Specialty Diagnoses / Procedures Referred By Cosmo cortez Referred To Contact Orthopaedics Diagnoses Carpal tunnel syndrome, bilateral Daniela Monsalve MD [facility] [place] [address] Bowen Pichardo MD [facility] [place] [address] Referral ID Status Reason Start Date Expiration Date V isits Requested Visits Authorized [id number] Closed Consult, Test & Treat 04/30/2015 04/29/2016 1 1 Encounter Details Date Type Department Care Team (Late st Contact Info) Description 08/06/2015 1:10 PM EST Office [place] [address] Daniela Monsalve MD [place], Lance G, MD [facility] [place] [address] Carpal tunnel syndrome, bilateral Social History Tobacco [...]
--- OUTSIDE RECORDS SUMMARY | 2024-06-21 20:11 | XMS_ITS | Encounter Summary ---
[place] [address] Care Team Providers Care Station Mechanic Helper Name Role Phone Unavailable Primary Care Provider Unavailabl e Encounter Details Date Type Department Care Team (Late st Contact Info) Description 09/16/2014 Telephone [place] [address] Asha Weiner LPN Social History Tobacco Use [...] Center Post-Procedure Phone Note Patient: Katheryn Carranza [id number] Post-procedure phone call from patient to report [...]
--- OUTSIDE RECORDS SUMMARY | 2024-06-21 20:11 | XMS_ITS | Encounter Summary ---
Author Organization [facility] [place] [address] Care Team Providers Care Template Checker Name Role Phone Unavailable Primary Care Provider Unavailabl e Reason for Visit * Reason Comments Bilateral Knee Pain Encounter Details Date Type Department Care Team (Latest Contact Info) Description 07/31/2015 1:00 PM EST Office [place] [address] Cori Patrick APRN [facility] [place] [address] Primary osteoarthritis of both knees (Primary Dx); [...] this encounter Progress Notes * Cori Patrick, NUT CHOPPER - 07/31/2015 1:07 PM EST Arthroplasty History/Previous [...]
--- OUTSIDE RECORDS SUMMARY | 2024-06-21 20:11 | XMS_ITS | Encounter Summary ---
Author [place] [address] Care Team Providers Care Legal Officer Name Role Phone Unavailable Primary Care Provider Unavailabl e Reason for Visit * Reason Comments Follow-up s/p bbr 12/09/11, pain under both breasts and under arms Encounter Details Date Type Department Care Team (Late st Contact Info) Description 09/10/2014 10:45 AM EDT Follow-[place] [phone] Pauly Melo MD H/O bilateral breast reduction surgery Discharge Disposition: [...]
--- OUTSIDE RECORDS SUMMARY | 2024-06-21 20:11 | XMS_ITS | Encounter Summary ---
Author Organization [facility] Address [facility] [place] [address] Care Team Providers Care Air Export Operations Agent Name Role Phone Unavailable Primary Care Provider Unavailabl e Encounter Details Date Type Department Care Team (Late st Contact Info) Description 01/22/2015 Orders [place] [address] Fracisco Miller MD [facility] [place] [address] Bilateral knee pain Social History Tobacco Use [...] Joint Team Standing Alignment AP Lat [place] Bilateral (02/27/2015 10:24 AM EDT) Anatomical Region [...]
--- OUTSIDE RECORDS SUMMARY | 2024-06-21 20:11 | XMS_ITS | Encounter Summary ---
[place] [address] Care Team Providers Care Technical Programs Manager Name Role Phone Unavailable Primary Care Provider Unavailabl e Encounter Details Date Type Department Care Team (Late st Contact Info) Description 08/26/2014 Telephone [place] [address] Sarah Morales, RN Social History Tobacco Use [...] time) on 08/27 (date ofprocedure) with their route salesman and driver. 2. Following instructions left in the [...] body within the last two weeks? Sarah Morales RN documented in this encounter Plan of Treatment Not on file documented as of this encounter Visit Diagnoses Not on filedocumented in this encounter
--- OUTSIDE RECORDS SUMMARY | 2024-06-21 20:11 | XMS_ITS | Encounter Summary ---
Author Organization [facility] [place] [address] Care Team Providers Care Application Architect Manager Name Role Phone Unavailable Primary Care Provider Unavailabl e Reason for Visit * Reason Comments Knee Pain bilateral knee pain R>L Encounter Details Date Type Department Care Team (Latest Contact Info) Description 04/27/2016 10:30 AM EST Office [place] [phone] Cori Patrick APRN [facility] [place] [address] Primary osteoarthritis of right knee (Primary Dx) [...] this encounter Progress Notes * Cori Patrick, BASS FISHER - 04/27/2016 10:30 AM EST Arthroplasty History/Previous [...] recent injection. See procedures below. Ireviewed our [facility] knee strengthening handout for a HEP, Anaprox [...] 12.5 mg, Intra-articular, ONCE, 1 dose, On 04/27/16 at 1115, Routine Given 04/27/2016 11:05 AM EST 12.5 mg lidocaine (XYLOCAINE) 10 mg/mL (1 %) injection 60 mg 60 mg, Intra-articular, ONCE, 1 dose, On Tu04/27/16 at 1115, Routine Given 04/27/2016 11:05 AM EST 60 mg triamcinolone acetonide (KENALOG-40) injection 40 mg 40 mg, Intra-articular, ONCE, 1 dose, On Tue04/27/16 at 1115, Routine Given 04/27/2016 11:05 AM EST 40 mg documented in this encounter
--- OUTSIDE RECORDS SUMMARY | 2024-06-21 20:11 | XMS_ITS | Encounter Summary ---
Author Organization [facility] [place] [address] Care Team Providers Care Caterer Helper Name Role Phone Unavailable Primary Care Provider Unavailabl e Encounter Details Date Type Department Care Team (Latest Contact Info) Description 11/25/2015 1:36 PM EDT Hospital [place] [address] Hunter Vickers MD Abnormal findings on diagnostic [...] dihydroergotamine (MIGRANAL) 0.5 mg/pump act. (4 mg/mL) [place], Non-Aerosol Prime the pump 4 times, Place [...] core biopsy specimens were obtained using a Axcient Eviva 9g 20mm device. A specimen radiograph [...]
--- OUTSIDE RECORDS SUMMARY | 2024-06-21 20:11 | XMS_ITS | Encounter Summary ---
[place] [address] Care Team Providers Care Tar Kettle Runner Name Role Phone Unavailable Primary Care Provider Unavailabl e Encounter Details Date Type Department Care Team (Late st Contact Info) Description 09/09/2014 Telephone [place] [address] Asha Weiner LPN Social History Tobacco Use [...] cervical medial branch block with Dr. Rita aGrcia MD. Message included the followin. Patient instructed to arrive at 1040 (30 minutes prior to procedure start time) on 09/11/14 (date of procedure) with their fence post driver. 2. Following instructions left in the [...]
--- OUTSIDE RECORDS SUMMARY | 2024-06-21 20:11 | XMS_ITS | Encounter Summary ---
[place] [address] Care Team Providers Care Food Storeroom Clerk Name Role Phone Unavailable Primary Care Provider Unavailabl e Encounter Details Date Type Department Care Team (Late st Contact Info) Description 02/25/2015 External [place] [address] Nahid Kelly MD [facility] [place] [address] Social History Tobacco Use Types Packs/Day Years [...]
--- OUTSIDE RECORDS SUMMARY | 2024-06-21 20:11 | XMS_ITS | Encounter Summary ---
Author Organization [facility] [place] [address] Care Team Providers Care Automation Operator Name Role Phone Unavailable Primary Care Provider Unavailabl e Encounter Details Date Type Department Care Team (Late st Contact Info) Description 02/24/2015 2:45 PM EDT Office [place] [address] Nahid Kelly MD [facility] [place] [address] Bilateral carpal tunnel syndrome Discharge Disposition: Home [...] for EDX studies by Daniela Monsalve MD [facility] [place] [address] to look for evidence of median nerve. Report scanned into EDH. documented in this encounter Plan of Treatment Not on file documented as of this encounter Visit Diagnoses Diagnosis Bilateral carpal tunnel syndrome Carpal tunnel syndrome documented in this encounter
--- OUTSIDE RECORDS SUMMARY | 2024-06-21 20:11 | XMS_ITS | Encounter Summary ---
Author Organization [facility] [place] [address] Care Team Providers Care Field Technical Support Consultant Name Role Phone Unavailable Primary Care Provider Unavailabl e Reason for Referral * High Dollar Medication (Routine) - Closed Specialty Diagnoses / Procedures Referred By Contac t Referred To Contact Neurology Diagnoses Chronic migraine without aura without status migrainosus, not intractable Procedures Auth Request for Medication TC ONABOTULINUMTOXINA, 1 UNIT, INJECTION Daniela Monsalve MD [facility] DR NEUROLOGY DEPT [place] [employer] [employer], [place] [address] [place] [address] [place] [phone] Referral ID Status Reason Start Date Expiration Date V isits Requested Visits Authorized [id number] Closed Consult, Test & Treat 05/18/2016 05/18/2017 4 4 Encounter Details Date Type Department Care Team (Late st Contact Info) Description 05/18/2016 [place] [address] Daniela Monsalve MD Chronic migraine without aura without status migrainosus, [...]
--- OUTSIDE RECORDS SUMMARY | 2024-06-21 20:11 | XMS_ITS | Encounter Summary ---
[place] [address] Care Team Providers Care Special Education Resource Teacher Name Role Phone Unavailable Primary Care Provider Unavailabl e Encounter Details Date Type Department Care Team (Late st Contact Info) Description 05/25/2016 Telephone [place] [address] Daniela Monsalve MD Social History Tobacco Use [...]
--- OUTSIDE RECORDS SUMMARY | 2024-06-21 20:11 | XMS_ITS | Encounter Summary ---
Author Organization [facility] [place] [address] Care Team Providers Care Wood Router Name Role Phone Unavailable Primary Care Provider Unavailabl e Reason for Visit * Reason Onset Date Comments Appointment 03/05/2015 Encounter Details Date Type Department Care Team (Late st Contact Info) Description 03/05/2015 Telephone [place] [phone] Cori Patrick APRN [facility] [place] [address] Appointment Social History Tobacco Use Types Packs/Day [...]
--- OUTSIDE RECORDS SUMMARY | 2024-06-21 20:11 | XMS_ITS | Encounter Summary ---
Author Organization [facility] [place] [address] Care Team Providers Care Flatlock Sewing Machine Operator Name Role Phone Unavailable Primary Care Provider Unavailabl e Reason for Referral * Physical Therapy (Routine) - Closed Specialty Diagnoses / Procedures Referred By Cosmo cortez Referred To Contact Physical Therapy Diagnoses Osteoarthritis of patellofemoral joint Knee pain, bilateral Primary osteoarthritis of both knees Cori Patrick APRN [facility] [place] [address] Referral ID Status Reason Start Date Expiration Date V isits Requested Visits Authorized [id number] Closed Evaluate and Treat 04/30/2015 10/27/2015 24 24 Reason for Visit * Reason Comments Bilateral Knee Pain Bilat Knee Pain Encounter Details Date Type Department Care Team (Latest Contact Info) Description 04/30/2015 11:30 AM EST Office [place] [address] Coir Patrick LUGGAGE REPAIRER [facility] [place] [address] Primary osteoarthritis of both knees (Primary Dx); [...] this encounter Progress Notes * Cori Patrick, LUGGAGE REPAIRER - 04/30/2015 11:47 AM EST Arthroplasty History/Previous [...] extension lag noted. EHL/FHL 5/5. She has today decreased pain and mild [...]
--- OUTSIDE RECORDS SUMMARY | 2024-06-21 20:11 | XMS_ITS | Encounter Summary ---
Author Organization [facility] Address [facility] [place] [address] Care Team Providers Care Wire Stripper Name Role Phone Unavailable Primary Care Provider Unavailabl e Reason for Visit * Reason Comments Botox Injection * High Dollar Medication (Routine) - Closed Specialty Diagnoses / Procedures Referred By Contac t Referred To Contact Neurology Diagnoses Chronic migraine without aura, not intractable, without status migrainosus Procedures CHEMODENERVATION, MEDICAL TC ONABOTULINUMTOXINA, 1 UNIT, INJECTION Botox Daniela Monsalve MD [facility] [place] [address] Referral ID Status Reason Start Date Expiration Date V isits Requested Visits Authorized [id number] Closed Evaluate and Treat 06/30/2015 06/30/2016 6 6 Encounter Details Date Type Department Care Team (Late st Contact Info) Description 12/23/2015 10:10 AM EDT Office [place] [address] Daniela Monsalve MD Migraine without aura and [...] units divided between 2 sites in the factory lay out engineer muscles, 5 units into 1 site in [...] without any immediate complications. Daniela Monsalve MD [facility] Neurology Migraine Disability Assessment # of days [...] intensity ?? 10/08/2015 ??Botox # 3 ??24, CASTELLANOS days, 5/10 CASTELLANOS intensity ?? 12/23/2015 ??Botox # 4 ?? 64, CASTELLANOS days, 5/10 CASTELLANOS intensity ?? Patient [...] units divided between 2 sites in the factory lay out engineer muscles, 5 units into 1 site in [...] without any immediate complications. Daniela Monsalve MD [facility] Neurology Migraine Disability Assessment # of days [...]
--- OUTSIDE RECORDS SUMMARY | 2024-06-21 20:11 | XMS_ITS | Encounter Summary ---
Author Organization [facility] [place] [address] Care Team Providers Care Copper Miner Name Role Phone Unavailable Primary Care Provider Unavailabl e Reason for Visit * Reason Comments Neck Pain Encounter Details Date Type Department Care Team (Latest Contact Info) Description 09/11/2014 10:40 AM EDT Procedure visit [place] [address] Rita Garcia MD [address] [place] [address] Rita Garcia MD [facility] [place] [address] Cervical spondylosis without myelopathy Discharge Disposition: Home [...] Post -Procedure Pain Log Patient: Katheryn Carranza [id number] It is important for you to keep [...] No 2. Patient states they have a dump truck driver to transport after procedure? Yes 3. [...] discharge criteria to the care of a dump truck driver. The patient received written instructions as [...] with Dr. Garcia CC: SANTI FITZGERALD, JACKIE [email or web address]@ documented in this encounter Plan of Treatment [...] is a Non-reportable exam Rita Garcia MD [facility] FILM LIBRARY ORD ERABLES * NERVE BLOCK [...] discharge criteria ??to the care of a dump truck driver. ??The patient received written instructions as [...] ??otherwise follow-up with Dr. Garcia CC: SANTI FITZGERALD APRN [email or web address]@ Rita Garcia MD PROCEDURE/MINOR SURG ICAL [...]
--- OUTSIDE RECORDS SUMMARY | 2024-06-21 20:11 | XMS_ITS | Encounter Summary ---
Author Organization [facility] [place] [address] Care Team Providers Care Vp Clinical Name Role Phone Unavailable Primary Care Provider Unavailabl e Encounter Details Date Type Department Care Team (Latest Contact Info) Description 11/18/2015 12:27 PM EDT - 11/18/2015 11:59 PM EDT Hospital [place] [phone] Sailaja Ross APRN [address] [place] [address] Visit for screening mammogram Discharge Disposition: Home [...] dihydroergotamine (MIGRANAL) 0.5 mg/pump act. (4 mg/mL) [place], Non-Aerosol Prime the pump 4 times, Place [...] 0: Additional imaging required Sailaja Ross APRN [facility] MAMMO ORDERABLES documented in this encounter Visit Diagnoses Diagnosis Visit for screening mammogram Other screening mammogram documented in this encounter
--- OUTSIDE RECORDS SUMMARY | 2024-06-21 20:11 | XMS_ITS | Encounter Summary ---
[place] [address] Care Team Providers Care Children'S [address] Magistrate Name Role Phone Unavailable Primary Care Provider Unavailabl e Reason for Visit * Reason Onset Date Comments Prior Authorization 02/26/2015 BOTOX APPROV ED 02/27/15-05/29/15 Encounter Details Date Type Department Care Team (Late st Contact Info) Description 02/26/2015 [place] [phone] Daniela Monsalve MD Prior Authorization (BOTOX APPROVED 02/27/15-05/29/15) Social History [...] encounter Miscellaneous Notes * Telephone Encounter - Joan Felix - 03/04/2015 2:31 PM EDT BOTOX APPROVED 02/27/15-05/29/15 PA #: [id number] 200 UNITS, FOR ONE DOSE. * Telephone Encounter - Joan Felix - 02/27/2015 10:31 AM EDT INSURANCE ASKING FOR MORE INFO. FAXED. * Telephone Encounter - Joan Felix - 02/26/2015 2:40 PM EDT PA FOR BOTOX FAXED TO [employer]. documented in this encounter Plan of Treatment Not on file documented as of this encounter Visit Diagnoses Not on filedocumented in this encounter
--- OUTSIDE RECORDS SUMMARY | 2024-06-21 20:11 | XMS_ITS | Encounter Summary ---
Author Organization [facility] [place] [address] Care Team Providers Care Cycle Manager Name Role Phone Unavailable Primary Care Provider Unavailabl e Reason for Referral * Physical Therapy (Routine) - Closed Specialty Diagnoses / Procedures Referred By Cosmo cortez Referred To Contact Diagnoses Knee pain, bilateral Cori Patrick AR MANAGER [facility] [place] [address] Unknown None Referral ID Status Reason Start Date Expiration Date V isits Requested Visits Authorized [id number] Closed Evaluate and Treat PCP Updated and/or Approved 02/27/2015 08/26/2015 24 24 Reason for Visit * Reason Comments Bilateral Knee Pain Encounter Details Date Type Department Care Team (Latest Contact Info) Description 02/27/2015 10:30 AM EDT Office [place] [address] Cori Patrick [facility] [place] [address] Knee pain, bilateral (Primary Dx); Osteoarthritis of [...] referred from Sailaja Ross APRN [address] [place] [id number] I.D.: Katheryn Carranza is a 54 y.o. [...]
--- OUTSIDE RECORDS SUMMARY | 2024-06-21 20:11 | XMS_ITS | Encounter Summary ---
Author Organization Replaced By [facility] Address [facility] [place] [address] Care Team Providers Care Hr Associate Name Role Phone Unavailable Primary Care Provider Unavailabl e Encounter Details Date Type Department Care Team (Latest Contact Info) Description 11/24/2015 10:00 AM EDT - 11/24/2015 11:59 PM EDT Hospital [place] [phone] Sasha Hernandez MD [facility] [place] [address] Abnormal finding on breast imaging Discharge Disposition: [...] dihydroergotamine (MIGRANAL) 0.5 mg/pump act. (4 mg/mL) [place], Non-Aerosol Prime the pump 4 times, Place [...] favor dystrophic and/or punctate benign-appearing calcifications. Sasha Maki MD IMG MAMMO ORDERABLES documented in this encounter Visit Diagnoses Diagnosis Abnormal finding on breast imaging Other (abnormal) findings on radiological examination of breast documented in this encounter
--- OUTSIDE RECORDS SUMMARY | 2024-06-21 20:11 | XMS_ITS | Encounter Summary ---
Author Organization [facility] Address [facility] [place] [address] Care Team Providers Care Inspector Subassemblies Name Role Phone Unavailable Primary Care Provider Unavailabl e Reason for Visit * Reason Comments Botox Injection * High Dollar Medication (Routine) - Closed Specialty Diagnoses / Procedures Referred By Contac t Referred To Contact Neurology Diagnoses Chronic migraine without aura, not intractable, without status migrainosus Procedures CHEMODENERVATION, MEDICAL TC ONABOTULINUMTOXINA, 1 UNIT, INJECTION Botox Daniela Monsalve MD [facility] [place] [address] Referral ID Status Reason Start Date Expiration Date V isits Requested Visits Authorized [id number] Closed Evaluate and Treat 06/30/2015 06/30/2016 6 6 Encounter Details Date Type Department Care Team (Late st Contact Info) Description 03/23/2016 11:00 AM EDT Office [place] [address] Daniela Monsalve MD Migraine without aura and [...] Procedure Notes * Daniela Monsalve MD - 03/23/2016 11:00 AM EDTAssociated [...] units divided between 2 sites in the adobe cq developer muscles, 5 units into 1 site in [...] without any immediate complications. Daniela Monsalve MD [facility] Neu[facility] Migraine Disability Assessment # of days [...] MIDAS 04/30/2015 ??Botox # 1 ?? 60, /90 CASTELLANOS days, 6/10 CASTELLANOS intensity ?? 07/15/2015 ??Botox # 2 ??18, CASTELLANOS days, 7/10 CASTELLANOS intensity ?? 10/08/2015 ??Botox # 3 ??24, CASTELLANOS days, 5/10 CASTELLANOS intensity ?? 12/23/2015 ??Botox # 4 ?? 64, CASTELLANOS days, 5/10 CASTELLANOS intensity ?? 03/23/2016 [...] units divided between 2 sites in the adobe cq developer muscles, 5 units into 1 site in [...] without any immediate complications. Daniela Monsalve MD [facility] Neurology Migraine Disability Assessment # of days [...]
--- OUTSIDE RECORDS SUMMARY | 2024-06-21 20:11 | XMS_ITS | Encounter Summary ---
Author Organization [facility] [place] [address] Care Team Providers Care Slitter Scorer Name Role Phone Unavailable Primary Care Provider Unavailabl e Reason for Visit * Reason Comments Pain Management Cervicalgia Encounter Details Date Type Department Care Team ([facility] st Contact Info) Description 08/01/2014 10:45 AM EST [place] [phone] Rita Garcia MD [address] [place] [address] Rita Garcia MD [facility] [place] [address] Cervical spondylosis without myelopathy; Occipital neuralgia Discharge [...]
--- OUTSIDE RECORDS SUMMARY | 2024-06-21 20:11 | XMS_ITS | Encounter Summary ---
[place] [address] Care Team Providers Care Nuisance Wildlife Trapper Name Role Phone Unavailable Primary Care Provider Unavailabl e Encounter Details Date Type Department Care Team (Latest Contact Info) Description 11/25/2015 1:37 PM EDT - 11/25/2015 11:59 PM EDT Hospital [place] [phone] Hunter Vickers MD Abnormal findings on diagnostic [...] dihydroergotamine (MIGRANAL) 0.5 mg/pump act. (4 mg/mL) [place], Non-Aerosol Prime the pump 4 times, Place [...] this encounter Progress Notes * Abdullahi Valdivia, DO - 11/25/2015 5:52 AM EDT Patient Name: [...] dihydroergotamine (MIGRANAL) 0.5 mg/pump act. (4 mg/mL) [place], Non-Aerosol, Prime the pump 4 times, Place [...] and procedural plan approved by Dr. ABDULLAHI VALDIVIA, DO documented in this encounter Plan of [...] core biopsy specimens were obtained using a Muufri Eviva 9g 20mm device. A specimen radiograph confirms the calcifications of interest to be contained within it A A & A Custom Cornholerk Eviva cylinder marker clip was deployed. A [...] PM EDT 11/25/2015 2:09 PM EDT Narrative [facility] - 11/25/2015 2:09 PM EDT Specimen requisition ordered. ??Separate Pathology report to follow Monica Schafer MD PATHOLOGY/CYTOLOGY ORDERABLES [facility] [place] [address] * Surgical Pathology Report (11/25/2015 2:08 PM EDT) Final Diagnosis [id number] ? Location: 3L The signing pathologist has (i) examined the relevant preparation(s) for the specimen(s) and (ii) rendered or confirmed the diagnosis(es). . ?Surgical Pathology DIAGNOSIS Needle biopsies: ?Right breast Diagnosis: ?Fibrosis, organizing fat necrosis, and hemosiderin-lad en macrophages consistent with prior surgical changes Microcalcificat ions: ??Associated with fibrosis and fat necrosis 11/26/15 PATRICIA 11/26/15 Verified by: ? Mark Hook MD ?Pathologist ?(Electronic Signature) The attending pathologist whose [...] minutes. (T3) ??SCB 11/26/2015 9:12 AM EDT [facility] BREAST STRUCTURE / Unknown 11/25/2015 2:08 PM EDT 11/25/2015 2:08 PM EDT Monica Schafer MD PATHOLOGY/CYTOLOGY ORDERABLES Performing Organization Address City/State/[facility] Co de Phone Number [facility] [place] [address] documented in this encounter Visit Diagnoses Diagnosis [...]
--- OUTSIDE RECORDS SUMMARY | 2024-06-21 20:11 | XMS_ITS | Encounter Summary ---
Author [facility] [place] [address] Care Team Providers Care Liquid Hydrogen Plant Operator Name Role Phone Unavailable Primary Care Provider Unavailabl e Reason for Referral * Consultation (Routine) - Closed Specialty Diagnoses / Procedures Referred By Cosmo cortez Referred To Contact Orthopaedics Diagnoses Carpal tunnel syndrome, bilateral Daniela Monsalve MD [facility] [place] [address] Bowen Pichardo MD [facility] [place] [address] Referral ID Status Reason Start Date Expiration Date V isits Requested Visits Authorized [id number] Closed Consult, Test & Treat 04/30/2015 04/29/2016 1 1 Reason for Visit * Reason Comments Migraine Encounter Details Date Type Department Care Team (Late st Contact Info) Description 04/30/2015 12:30 PM EST Office [place] [address] Daniela Monsalve MD Chronic migraine without aura [...] 1:18 PM EST Office Number: (Re[facility]ah - [place]) Clinic nurse number (for most issues) (Elyssa) [...] Dr. Sena Michael MD - Neurologist in [facility] 05/09/2013 - Assessment: Chronic Tension type headache, occipital neuralgia and history or menstrual migraine. She has been seen in the [facility] Pain Management for evaluation of cervicogenic headache [...] - she has not yet seen an earth burner. When she had her uterus there was [...] the of her father (hit by drunk lead driver) Michelle Previous work-up: MRI Cervical Spine [...] Nasal spray BOTOX APPROVED 02/27/15-05/29/15 PA #: [id number] 200 UNITS, FOR ONE DOSE. Treatments not [...] by mouth nightly. ??? Miscellaneous Medical Supply [facility] Bilateral wrist splints for CTS 2 each [...] dihydroergotamine (MIGRANAL) 0.5 mg/pump act. (4 mg/mL) [place], Non-Aerosol Prime the pump 4 times, Place [...] follow-up and Botox injections Daniela Monsalve MD [facility] Neurology documented in this encounter Procedure Notes [...] units divided between 2 sites in the water safety teacher muscles, 5 units into 1 site [...] without any immediate complications. Daniela Monsalve MD [facility] Neurology Headache Clinic Migraine Disability Assessment # [...] 66/90 CASTELLANOS days, 6/10 CASTELLANOS intensity ?? Risk and benefits were [...] units divided between 2 sites in the water safety teacher muscles, 5 units into 1 site [...] without any immediate complications. Daniela Monsalve MD [facility] Neurology Headache Clinic Migraine Disability Assessment # [...]
--- OUTSIDE RECORDS SUMMARY | 2024-06-21 20:11 | XMS_ITS | Encounter Summary ---
[place] [address] Care Team Providers Care Acid Correction Hand Name Role Phone Unavailable Primary Care Provider Unavailabl e Encounter Details Date Type Department Care Team (Late st Contact Info) Description 09/10/2014 Telephone [place] [address] Maria Peoples LPN Social History Tobacco Use [...] time) on 09/11/14 (dateof procedure) with their lease purchase driver. 2. Following instructions left in the [...]
--- OUTSIDE RECORDS SUMMARY | 2024-06-21 20:11 | XMS_ITS | Encounter Summary ---
[place] [address] Care Team Providers Care Natural Resources Faculty Member Name Role Phone Unavailable Primary Care Provider Unavailabl e Encounter Details Date Type Department Care Team (Late st Contact Info) Description 11/25/2015 [place] [phone] Daniela Monsalve MD Social History Tobacco Use [...] from Tuesday and can be reached at [phone]. * Telephone Encounter - Rosaura Traore RN - 12/02/2015 3:42 PM EDT Called patient and left a message asking for a return phone call. * Telephone Encounter - Daniela Monsalve MD - 12/02/2015 3:26 PM EDT QTC 423 No evidence of ischemic changes Please let the patient know Daniela Monsalve MD [facility] Neu[place] * Telephone Encounter - Rosaura Traore RN - 11/25/2015 10:34 AM EDT EKG received - see scan doc documented in this encounter Plan of Treatment Not on file documented as of this encounter Visit Diagnoses Not on filedocumented in this encounter
--- OUTSIDE RECORDS SUMMARY | 2024-06-21 20:11 | XMS_ITS | Encounter Summary ---
Author Organization [facility] [place] [address] Care Team Providers Care Bottom Polisher Name Role Phone Sailaja Ross APRN Primary Care Provider [phone] Encounter Details Date Type Department Care Team (Late st Contact Info) Description 07/29/2022 Ancillary Procedure Radiology Library at [facility] [place] [place] [phone] Social History Tobacco Use Types Packs/Day Years [...] It's purpose is for storage only. Kayleigh J Bugbee [facility] FILM LIBRARY ORD ERABLES documented in this encounter Visit Diagnoses Not on filedocumented in this encounter Care Teams Bottom Polisher Relationship Specialty Start Date End Date Sailaja Ross APRN PCP - General Family Medicine 01/24/17 07/31/22 documented as of this encounter
--- OUTSIDE RECORDS SUMMARY | 2024-06-21 20:11 | XMS_ITS | Encounter Summary ---
[place] [address] Care Team Providers Care Professional Caster Name Role Phone Unavailable Primary Care Provider Unavailabl e Encounter Details Date Type Department Care Team (Late st Contact Info) Description 04/07/2016 [place] [phone] Daniela Monsalve MD Social History Tobacco Use [...] 04/07/2016 3:30 PM EDT Caller: Zenia from [employer] in [place] If not Pt / Relation to pt: Caller Contact Number: [phone] Best time to reach pt back: Reason for call: Zenia from [employer] called in regards to the naproxen prescription. [...]
--- OUTSIDE RECORDS SUMMARY | 2024-06-21 20:11 | XMS_ITS | Encounter Summary ---
Author Organization [facility] Address [facility] [place] [address] Care Team Providers Care Tablet Technician Name Role Phone Unavailable Primary Care Provider Unavailabl e Reason for Referral * Physical Therapy (Routine) - Specialty Diagnoses / Procedures Referred By Cosmo t Referred To Contact Physical Therapy Diagnoses Migraine without aura and without status migrainosus, not intractable Daniela Monsalve MD [facility] [place] [address] Referral ID Status Reason Start Date Expiration Date V isits Requested Visits Authorized [id number] Evaluate and Treat 08/27/2015 02/23/2016 12 12 Reason for Visit * Reason Comments Injections Encounter Details Date Type Department Care Team (Late st Contact Info) Description 08/27/2015 11:30 AM EDT [place] [address] Daniela Monsalve MD Migraine without aura and [...] 11:52 AM EDT Office Number: (Rebekah - [place]) Clinic nurse number (for most issues) (Elyssa) [...] Blood loss: <1 cc Daniela Monsalve MD [facility] Neurology * Daniela Monsalve MD - 08/27/2015 [...] Blood loss: <1 cc Daniela Monsalve MD [facility] Neurology documented in this encounter [...] Blood loss: <1 cc Daniela Monsalve MD [facility] Neurology Daniela Monsalve [...]
--- OUTSIDE RECORDS SUMMARY | 2024-06-21 20:11 | XMS_ITS | Encounter Summary ---
Author Organization [facility] [place] [address] Care Team Providers Care Mechanical Engineering Technician Name Role Phone Sailaja Ross APRN Primary Care Provider Encounter Details Date Type Department Care Team (Late st Contact Info) Description 05/17/2017 Orders Only [place] [address] Nicole Harmon MD [facility] [place] [address] Solitary kidney Social History Tobacco Use Types [...] dysgenesis documented in this encounter Care Teams Mechanical Engineering Technician Relationship Specialty Start Date End Date Sailaja Ross APRN PCP - General Family Medicine 01/24/17 07/31/22 documented as of this encounter
--- OUTSIDE RECORDS SUMMARY | 2024-06-21 20:12 | XMS_ITS | Encounter Summary ---
Author Organization [facility] [place] [address] Care Team Providers Care Claim Benefit Specialist Name Role Phone Unavailable Primary Care Provider Unavailabl e Encounter Details Date Type Department Care Team (Late st Contact Info) Description 07/14/2010 [place] [address] Jackie Garcia MD [facility] [place] [address] Social History Tobacco Use Types Packs/Day Years Used Date Smoking Tobacco: Never Assessed Sex and Gender Information Value Date Recorded Sex Assigned at Not on file Gender Identity Not on file Sexual Orientation Not on file documented as of this encounter Plan of Treatment Pending Results Name Type Priority Associated Diagnoses Date /Time Film Library- Storage only Mammo Imaging Routine 07/14/2010 1:05 PM EST documented as of this encounter Visit Diagnoses Not on filedocumented in this encounter
--- OUTSIDE RECORDS SUMMARY | 2024-06-21 20:12 | XMS_ITS | Encounter Summary ---
[place] [address] Care Team Providers Care Warrant Clerk Name Role Phone Unavailable Primary Care Provider Unavailabl e Reason for Referral * Rehabilitation (Routine) - Complete - Unable to Contact Patient Specialty Diagnoses / Procedures Referred By Cosmo cortez Referred To Contact Orthopaedics Diagnoses Neck pain on left side Lucas Bergman MD [facility] [place] [place] [address] [facility] [address] [place] [address] Referral ID Status Reason Start Date Expiration Date Visits Requested Visits Authorized [id number] Complete - Unable to Contact Patient Consult, Test & Treat 11/20/2013 05/19/2014 1 1 Reason for Visit * Reason Onset Date Comments Medication Refill 11/20/2013 Encounter Details Date Type Department Care Team (Late st Contact Info) Description 11/20/2013 Refill [place] [address] Lucas Bergman MD [facility] [place] [place] [address] Neck pain on left side (Primary Dx) [...]
--- OUTSIDE RECORDS SUMMARY | 2024-06-21 20:12 | XMS_ITS | Encounter Summary ---
Author Organization [facility] [place] [address] Care Team Providers Care Automatic Machine Attendant Name Role Phone Unavailable Primary Care Provider Unavailabl e Reason for Visit * Reason Comments Follow-up [facility] 12/09/11 Encounter Details Date Type Department Care Team (Late st Contact Info) Description 02/15/2012 1:15 PM EDT Follow-[place] [phone] Pauly Melo MD Breast hypertrophy (Primary Dx) Discharge Disposition: Home [...] this encounter Miscellaneous Notes * Miscellaneous - Marie Carvajal - 02/22/2012 11:13 AM EDT documented in this encounter Plan of Treatment Not on file documented as of this encounter Visit Diagnoses Diagnosis Breast hypertrophy- Primary Hypertrophy of breast documented in this encounter
--- OUTSIDE RECORDS SUMMARY | 2024-06-21 20:12 | XMS_ITS | Encounter Summary ---
Author Organization [facility] Address [facility] [place] [address] Care Team Providers Care Web Operations Specialist Name Role Phone Unavailable Primary Care Provider Unavailabl e Encounter Details Date Type Department Care Team (Latest Contact Info) Description 07/09/2014 3:10 PM EST - 07/09/2014 11:59 PM [facility] Hospital Encounter XRay at [address] [place] [address] Cervical spondylosis without myelopathy Social History Tobacco [...] 45 mcg/actuation HFA Aerosol Inhaler .COMPLEX 11/20/2013 QUEtiapine (SEROquel) 100 mg tablet Take 100 mg by mouth nightly. multivitamin (THERAGRAN) tablet Take 1 tablet by mouth daily. atenolol (TENORMIN) 50 mg tablet Take 50 mg by mouth daily. celecoxib (CELEBREX) 200 mg Capsule Take 200 [...]
--- OUTSIDE RECORDS SUMMARY | 2024-06-21 20:12 | XMS_ITS | Encounter Summary ---
[place] [address] Care Team Providers Care Brim Rounder Name Role Phone Unavailable Primary Care Provider Unavailabl e Encounter Details Date Type Department Care Team (Late st Contact Info) Description 02/12/2013 Telephone [place] [address] Vicenta Sparks, RN Social History Tobacco Use [...] __x_ No, patient will be contacted by brakes inspector to make appointment for requested procedure. ___ Yes, patient referred for re-evaluation by referring provider. Patient's questions regarding requested procedure were answered and patient verbalized understanding. Patient knows how to contact the Pain Management Center and understands that they may do so at any time should they have further questions or concerns. Vicenta Sparks RN documented in this encounter Plan of Treatment Not on file documented as of this encounter Visit Diagnoses Not on filedocumented in this encounter
--- OUTSIDE RECORDS SUMMARY | 2024-06-21 20:12 | XMS_ITS | Encounter Summary ---
Author Organization [facility] [place] [address] Care Team Providers Care Television Schedule Coordinator Name Role Phone Unavailable Primary Care Provider Unavailabl e Encounter Details Date Type Department Care Team (Late st Contact Info) Description 07/31/2013 External Results XRay at [address] [place] [address] Provider, Scanning Social History Tobacco Use Types [...]
--- OUTSIDE RECORDS SUMMARY | 2024-06-21 20:12 | XMS_ITS | Encounter Summary ---
Author Organization [facility]ly [facility] [place] [address] Care Team Providers Care Motor Equipment Captain Name Role Phone Unavailable Primary Care Provider Unavailabl e Reason for Visit * Reason Comments Follow-up S/P BBR dos 12/09/11 d rain removal Encounter Details Date Type Department Care Team (Latest Contact Info) Description 12/13/2011 3:00 PM EDT Clinical [place] [phone] NURSE, PLASTIC SURGERY Other specified aftercare following [...] with any questions or concerns. Welcome to Smart Sparrow, your secure online access to your electronic medical record at [facility]. Using GigaTrustH you will be able to send messages to your providers, view your test results, renew prescriptions, schedule appointments, and much more. Follow these instructions to enter your personal Smart Sparrow account for the first time: 1. Start your internet browser and type [email or web address] into the address bar. 2. In the New User box on the right-hand side of the Welcome page click the link that states, ???I have an activation code.?? 3. On the Identification page, follow these steps: a) Enter your AccelOne-Shippo activation code: [email or web address] b) Expires: 01/27/12 04:16 PM IMPORTANT: This Activation Code will on the above mentioned date. If you do not sign up for AccelOne-H by this date, you will need to request another activation code. c) Enter your date of , using the calendar tool provided. d) Enter your Zip code. e) Select ???submit?? to go to the next page. 4. On the Create Account page, follow these steps: a) Create a Smart Sparrow username. This can???t be changed, so choose [...] or your Access Code, please call for [place], for [place] or for [place]. If you need technical support, please e-mail [email or web address]. Remember, myD-H is NOT for urgent needs! Always dial 911 for medical emergencies. documented in this encounter Progress Notes * Delaney Baker RN - 12/13/2011 4:31 PM EDT Patient was seen by this selling underwriter for removal of breast drains s/p a [...]
--- OUTSIDE RECORDS SUMMARY | 2024-06-21 20:12 | XMS_ITS | Encounter Summary ---
[place] [address] Care Team Providers Care Cotton Weigher Operator Name Role Phone Unavailable Primary Care Provider Unavailabl e Reason for Visit * Reason Onset Date Comments Post Procedure Call 09/13/2012 Encounter Details Date Type Department Care Team (Late st Contact Info) Description 09/13/2012 Telephone [place] [phone] Page Bhardwaj RN Post Procedure Call Social [...]
--- OUTSIDE RECORDS SUMMARY | 2024-06-21 20:12 | XMS_ITS | Encounter Summary ---
[place] [address] Care Team Providers Care Senior Software Quality Analyst Name Role Phone Unavailable Primary Care Provider Unavailabl e Encounter Details Date Type Department Care Team (Late st Contact Info) Description 12/09/2011 2:14 PM EDT - 12/09/2011 4:32 PM EDT [place] [address] Pauly Sommers MD REDUCTION MAMMOPLASTY, EVA (WRVU 16.03) Social History [...] this encounter Discharge Instructions * Discharge Instructions* Pilar, Al Echeverria RN - 12/09/2011 6:34 PM EDT Images [...] Tuesday 8 am to 5 pm Call [phone] On weekends or after hours: Call [phone] and ask the wire stripping machine operator to page the Plastic Surgeon production underwriter. Prescription Line: Tuesday through Tuesday 8 am to 4 pm Call [phone] Narcotic renewals will not be honored after [...] meets criteria. Pt given pain meds per MAR. Will continue to monitor closely. * Yue [...] of 10/10 pain with all narcotics charted. aware. Will call report to CUSTOM STUDIO COORDINATOR for pt transfer. Will continue to monitor. [...] ml 1% lidocaine+ 1 ml epinephrine injection mcc 1:1000 added to 1000 IV NACL per order the total amt used of anesthetic infiltrate solution was 1000 ml. documented in this encounter Miscellaneous Notes * Miscellaneous - Provider, Scanning - 12/12/2011 11:49 AM EDT * Miscellaneous - Provider, Scanning - 12/12/2011 11:48 AM EDT * Op Note - Pauly Sommers MD - 12/09/2011 7:07 PM EDT [facility] Operative Note Patient Name: Valeria March : [id number] MR#: [id number] Case Date: 12/09/2011 Surgeon: Surgeon(s) and Role: [...] consent was obtained, she was brought tothe Main Operating Room where she was placed supine [...] Operative Note Patient Name: Valeria March : [id number] MR#: [id number] Case Date: 12/09/2011 Surgeon: Surgeon(s) and Role: [...] 7:10 PM EDT) Surgical Pathology Report ? [facility] ? Provider: ?? PAULY SOMMERS ?Pt. Name: ?? VALERIA MARCH ? Acc #: ?[id number] ?Pt. ? Col Date: ?? 12/09/2011 ?/Sex: [...] ? ---Clinical Information--- ? Specimen Submitted: ? [facility] ? Provider: ?? PAULY SOMMERS ?Pt. Name: ?? VALERIA MARCH ? Acc #: ?[id number] ?Pt. ? Col Date: ?? 12/09/2011 ?/Sex: ?1960,(51 years),Female ? Rec Date: ?? 12/09/2011 ?LOC: ?SDP ? SURGICAL PATHOLOGY ? A - Right breast tissue ? B - Left breast tissue ? Clinical History/Diagnosis : ? Breast hypertrophy [facility] 12/09/2011 7:10 PM EDT Pauly Somemrs MD PATHOLOGY/CYTOLOGY O RDERABLES [facility] * Specimen to Pathology (surgical or derm) (12/09/2011 6:10 PM EDT) AP Specimen 12/09/2011 6:10 PM EDT 12/09/2011 6:10 PM EDT Narrative [facility] - 12/09/2011 6:10 PM EDT Specimen requisition ordered. ??Separate Pathology report to follow Pauly Sommers MD PATHOLOGY/CYTOLOGY O LISA Performing Organization Address [facility] Co de Phone Number [facility] * Specimen to Pathology (surgical or derm) (12/09/2011 6:10 PM EDT) AP Specimen 12/09/2011 6:10 PM EDT 12/09/2011 6:10 PM EDT Narrative [facility] - 12/09/2011 6:10 PM EDT Specimen requisition ordered. ??Separate Pathology report to follow Pauly Sommers MD PATHOLOGY/CYTOLOGY O LISA Performing Organization Address [facility] Co de Phone Number [facility] documented in [...] 1-2 tablet, Oral, EVERY 6 HOURS PRN, Pain, Starting on Teresa 12/09/11 at 1949, Until Tue12/10/11 at 0003, Maximum dose of acetaminophen is 4000 mg from all sources in 24 hours. Given 12/09/2011 8:02 PM EDT 2 tablets [...] g, Intravenous, ONCE, 1 dose, On Teresa 7/5/12 at 1515, Administer over 30 Minutes, Indication [...] Al Quezada RN)1957 (Given - Provider: Al Quezada, OLIVIA)2002 (Given - Provider: Al Quezada RN) lidocaine [...] Until Tue12/10/11 at 0003, Intra-Operative (Intra-Procedure), Routine 1628 (Given - Provid er: Pauly Sommers MD - Comment: Used for marking) OXYcodone-acetaminophen (PERCOCET) 5-325 mg per tablet 1-2 tablet (CANCELED) 1-2 tablet, Oral, EVERY 6 HOURS PRN, Pain, Starting on Teresa 12/09/11 at 1949, Until Tue12/10/11 at 0003, Maximum dose of acetaminophen is 4000 mg from all sources in 24 hours. 2001 (Given - Provid er: Al Quezada RN) documented in this encounter
--- OUTSIDE RECORDS SUMMARY | 2024-06-21 20:12 | XMS_ITS | Encounter Summary ---
[place] [address] Care Team Providers Care Supervisor Research Shop Name Role Phone Unavailable Primary Care Provider Unavailabl e Reason for Referral * Consultation (Routine) - Closed Specialty Diagnoses / Procedures Referred By Cosmo cortez Referred To Contact Neurology Diagnoses Headache(784.0) Myofascial pain Meron Jerry MD [facility] [place] [address] [facility] [address] [place] [address] Referral ID Status Reason Start Date Expiration Date V isits Requested Visits Authorized [id number] Closed Consult, Test & Treat 11/09/2012 05/08/2013 1 1 Reason for Visit * Reason Comments Pain Management neck pain Encounter Details Date Type Department Care Team (Late st Contact Info) Description 11/09/2012 8:45 AM EDT [place] [phone] Meron Jerry MD [facility] [place] [address] Headache (Primary Dx); Myofascial pain [...] PM EDT PAIN CLINIC FOLLOW-UP Katheryn Carranza [id number] Last pain clinic visit: 09/29/12 Clinic visit [...] MAMMOPLASTY, EVA performed by DEMETRA SOMMERS at [facility] MAIN OR Current Outpatient Prescriptions Medication Sig [...] levator scapulae Neuro Motor: Deltoid, biceps, triceps, clin nurse 5/5 bilaterally. IP, quads, DF, EHL, PF [...] her physical therapy. I explained atlength to Katheryn that long-term opioid use for chronic non-cancer [...] rescription. Patient follow with Dr. Fitzgerald in [place] end of November. At that time, this [...] Meron Jerry MD Fellow, Pain Medicine Pager [phone] cc: SANTI FITZGERALD, SALES DEVELOPMENT SPECIALIST None This encounter lasted 30 minutes with 22 minutes spent in [id number] education and counseling regarding management of chronic [...] Meron Jerry MD Fellow, Pain Medicine Pager [phone] Trigger Point Injections Date of Service: 11/09/2012 [...] Meron Jerry MD Fellow, Pain Medicine Pager [phone] documented in this encounter Plan of Treatment [...]
--- OUTSIDE RECORDS SUMMARY | 2024-06-21 20:12 | XMS_ITS | Encounter Summary ---
Author Organization [facility] [place] [address] Care Team Providers Care Timber Surveyor Name Role Phone Unavailable Primary Care Provider Unavailabl e Reason for Visit * Reason Comments Cervicalgia Encounter Details Date Type Department Care Team (Latest Contact Info) Description 09/08/2012 10:00 AM EDT Procedure [place] [address] Margret Bergman MD [facility] [place] [address] Cervicalgia (Primary Dx) Discharge Disposition: Home Social [...] 2. 3. Patient states they have a wrecker driver to transport after procedure? Yes 4. [...] treatment was done at 80 degrees C [id number] This radiofrequency treatment should result in the [...] discharge criteria, [facility] Anxiolysis: 2 mg midazolam COMMENTS: Please [...] entire procedure. MARGRET BERGMAN MD CC: SANTI FITZGERALD, JACKIE [email or web address]@ Margret Bergman MD PROCEDURE/MINOR SURG ICAL [...]
--- OUTSIDE RECORDS SUMMARY | 2024-06-21 20:12 | XMS_ITS | Encounter Summary ---
Author Organization [facility] [place] [address] Care Team Providers Care Staff Training And Development Manager Name Role Phone Unavailable Primary Care Provider Unavailabl e Reason for Visit * Reason Comments Follow-up DOS 12/09/11 BBR Encounter Details Date Type Department Care Team (Late st Contact Info) Description 12/21/2011 1:00 PM EDT Office [place] [phone] Pauly Melo MD Breast hypertrophy (Primary Dx) [...]
--- OUTSIDE RECORDS SUMMARY | 2024-06-21 20:12 | XMS_ITS | Encounter Summary ---
Author Organization [facility] Address [facility] [place] [address] Care Team Providers Care Coil Tester Name Role Phone Unavailable Primary Care Provider Unavailabl e Encounter Details Date Type Department Care Team (Latest Contact Info) Description 07/17/2014 8:04 AM EST - 07/17/2014 11:59 PM [facility] Hospital [place] [address] Rita Garcia MD [facility] [place] [address] Cervical spondylosis without myelopathy Discharge Disposition: Home [...] tablet Take 50 mg by mouth daily. amitriptyline (ELAVIL) 10 mg Tablet Take 10 [...] Carranza AGE: 53 y.o. : 1960 Female [phone] (home) No relevant phone numbers on file. PCP TECHNICAL SME SANTI FITZGERALD APRN None Allergies Allergen Reactions [...] HR. BEFORE SCHEDULED SCAN AND HAVE A LOFT WORKER APPRENTICE AVAILABLE. PT STATED TO METEOROLOGY TEACHER THAT THE SEDATION WAS EFFECTIVE FOR SCAN: Y N COMMENTS: This patient has been informed that they require a vacuum truck driver to drive them home after this procedure. In the absence of a vacuum truck driver, IR will not be able [...] Narrative 07/17/2014 11:40 AM EST EXAMINATION: MR White WO Eddie CLINICAL HISTORY: [...] Funmilayo Marrero MD - 07/17/2014 EXAMINATION: MR Cindy WO Eddie CLINICAL HISTORY: neck pain cervical [...]
--- OUTSIDE RECORDS SUMMARY | 2024-06-21 20:12 | XMS_ITS | Encounter Summary ---
[place] [address] Care Team Providers Care Skimmer Name Role Phone Unavailable Primary Care Provider Unavailabl e Reason for Visit * Reason Comments Advice Only BBR Encounter Details Date Type Department Care Team (Late st Contact Info) Description 01/13/2011 9:00 AM EDT Office [place] [phone] Pauly Melo MD Breast hypertrophy (Primary Dx) [...] - 01/13/2011 10:24 AM EDT Welcome to Rouxbe, your secure online access to your electronic medical record at [facility]. Using Rouxbe you will be able to send messages to your providers, view your test results, renew prescriptions, schedule appointments, and much more. Follow these instructions to enter your personal Rouxbe account for the first time: 1. Start your internet browser. Go to [email or web address] and click on the Rouxbe link. 2. Click SIGN UP NOW to go to the NEW MEMBER SIGN UP page. 3. Enter your Rouxbe Access Code exactly as it appears below. (You will not need this access code after you have completed the sign-up process.) ?? Your Rouxbe Access Code: [email or web address] ?? Expires: 02/27/11 10:24 AM ?? IMPORTANT: This Access Code will on the above mentioned date. If you do not sign up before this date, you will need to request a new Access Code number. 4. Enter your Date of (mm/dd/yyyy) and zip code click SUBMIT to go to the next page. 5. Create a Rouxbe identification (ID). This will be your Rouxbe login ID and cannot be changed, so [...] know when new information is available in Rouxbe. 9. Click SIGN UP to complete the process. You can now view your electronic medical record. If you have any questions about Rouxbe or your Access Code, please call for [place], for [place] or for [place]. If you need technical support, please e-mail . Remember, myD-H is NOT for urgent needs! Always dial 911 for medical emergencies. Please review your pre-op packet prior to surgery. If you have any questions please call the plastic surgery nurses at [phone]. Thank You. documented in this encounter Progress Notes * Pauly Melo MD - 01/13/2011 10:13 AM EDT PLASTIC SURGERY OFFICE NOTE Pauly Melo MD PCP: SAILAJA FITZGERALD APRN SHEET METAL DUCT INSTALLER APPRENTICE: As above Reason for office visit: Symptomatic macromastia CC: I was asked by Sailaja Fitzgerald SNACK BAR COOK to evaluate Ms. 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 We talked about the ou tpatient nature of the surgery, drains, postoperative recovery, and time required off work. We talked about the impact of this surgery on decreasing breast cancer risk. She has been referred to [email or web address] and provided with my e-mail address. We [...] revisions for scarring or asymmetry.) Barker or [place] Pattern Incision: More scarring on breast, but [...] encounter Miscellaneous Notes * Miscellaneous - Wei, Reproducer - 01/26/2011 11:29 AM EDT * Miscellaneous - Wei, Reproducer - 01/20/2011 1:04 PM EDT documented in this encounter Plan of Treatment Not on file documented as of this encounter Visit Diagnoses Diagnosis Breast hypertrophy- Primary Hypertrophy of breast documented in this encounter
--- OUTSIDE RECORDS SUMMARY | 2024-06-21 20:12 | XMS_ITS | Encounter Summary ---
Author Organization [facility] [place] [address] Care Team Providers Care Steam Clean Machine Operator Name Role Phone Unavailable Primary Care Provider Unavailabl e Reason for Visit * Reason Comments Pain, Chronic lower neck Encounter Details Date Type Department Care Team (Late st Contact Info) Description 12/26/2012 9:45 AM EDT [place] [phone] Randy Zimmerman MD [address] [place] [address] Randy Zimmerman MD [facility] [place] [address] Occipital neuralgia (Primary Dx); Myofascial pain Discharge [...] documented in this encounter Procedure Notes * Randy Zimmerman MD - 12/26/2012 10:48 AM EDTAssociated Order(s): NERVE BLOCK - OCCIPITAL Procedure(s): NERVE BLOCK - OCCIPITAL Pre-Procedure Diagnose(s): Occipital neuralgia; Myofascial pain Occipital Nerve Block Date of Service: 12/26/2012 Patient: Katheryn Carranza 1960 52 y.o. female Provider: RANDY ZIMMERMAN MD Katheryn Carranza has been referred to [...] and has not had sustained relief. RANDY ZIMMERMAN MD documented in this encounter Plan of [...] OCCIPITAL (12/26/2012 11:20 AM EDT) Narrative Randy Zimmerman MD - 12/26/2012 11:20 AM EDT Randy Zimmerman MD ? 12/26/2012 11:20 AM Occipital Nerve Block Date of Service: 12/26/2012 Patient: ?Katheryn Carranza ? 1960 ?? 52 y.o. ??female Provider: ?RANDY ZIMMERMAN MD Katheryn Carranza ??has been referred to [...] and has not had sustained relief. RANDY ZIMMERMAN MD Procedure Note Randy Zimmerman MD - 12/26/2012 10:48 AM EDT Occipital Nerve Block Date of Service: 12/26/2012 Patient: Katheryn Carranza 1960 52 y.o. female Provider: RANDY ZIMMERMAN MD Katheryn Carranza has been referred to [...] and has not had sustained relief. RANDY ZIMMERMAN MD Randy Zimmerman MD NEUROLOGY ORDERABLES documented in this encounter Visit Diagnoses Diagnosis Occipital neuralgia- Primary Other syndromes affecting cervical region Myofascial pain Mylagia and myositis, unspecified documented in this encounter
--- OUTSIDE RECORDS SUMMARY | 2024-06-21 20:12 | XMS_ITS | Encounter Summary ---
[place] [address] Care Team Providers Care Wall Attendant Name Role Phone Unavailable Primary Care Provider Unavailabl e Encounter Details Date Type Department Care Team (Latest Contact Info) Description 08/13/2013 1:56 PM EDT - 08/13/2013 11:59 PM EDT Hospital [place] [phone] CLINIC, Sailaja Rush MD Discharge Disposition: Home Social History Tobacco Use [...]
--- OUTSIDE RECORDS SUMMARY | 2024-06-21 20:12 | XMS_ITS | Encounter Summary ---
Author Organization [place] [address] Care Team Providers Care Instructor Ballroom Dancing Name Role Phone Unavailable Primary Care Provider Unavailabl e Encounter Details Date Type Department Care Team (Late st Contact Info) Description 03/19/2013 [place] [address] John Neely MD [facility] [place] [address] Social History Tobacco Use Types Packs/Day Years [...]
--- OUTSIDE RECORDS SUMMARY | 2024-06-21 20:12 | XMS_ITS | Encounter Summary ---
[place] [address] Care Team Providers Care Assistant Head Cashier Name Role Phone Unavailable Primary Care Provider Unavailabl e Reason for Visit * Reason Onset Date Comments Prior Authorization 09/29/2012 Encounter Details Date Type Department Care Team (Late st Contact Info) Description 09/29/2012 Telephone [place] [phone] Violet Mustafa microwave supervisor Social History Tobacco Use Types Packs/Day Years [...] Pain Management Center Preauthorization Request Patient: Katheryn Carranza [id number] Fax received from [facility] requesting we obtain prior authorization for Lidoderm patchprescribed by Meron Jerry MD. RX insurance plan: [place] Medicaid RX insurance telephone: [phone] Patient Diagnosis: neck pain Previous medications attempted: ibuprofen, percocet, lidocaine patches tramadol, buspar, concerta The following action was taken after discussion with the director clinical information services: _x_ denied, provider and patient informed Patient [...]
--- OUTSIDE RECORDS SUMMARY | 2024-06-21 20:12 | XMS_ITS | Encounter Summary ---
Author Organization [facility] [place] [address] Care Team Providers Care Dough Panner Name Role Phone Unavailable Primary Care Provider Unavailabl e Reason for Referral * Physical Therapy (Routine) - Complete - Patient Will Schedule External Appt Specialty Diagnoses / Procedures Referred By Contac t Referred To Contact Physical Therapy Diagnoses Cervicalgia Meron Jerry MD [facility] [place] [address] Referral ID Status Reason Start Date Expiration Date Visits Requested Visits Authorized [id number] Complete - Patient Will Schedule External Appt Evaluate and Treat 09/27/2012 03/26/2013 12 12 Reason for Visit * Reason Comments Pain Management Encounter Details Date Type Department Care Team (Late st Contact Info) Description 09/27/2012 1:15 PM EDT Follow-[place] [phone] Meron Jerry MD [facility] [place] [address] Cervicalgia (Primary Dx) Discharge Disposition: [...] PM EDT PAIN CLINIC FOLLOW-UP Katheryn Carranza [phone] Last pain clinic visit: 09/11/12 RFA Left [...] MAMMOPLASTY, EVA performed by DEMETRA SOMMERS at [facility] MAIN OR Current Outpatient Prescriptions Medication [...] levator scapulae Neuro Motor: Deltoid, biceps, triceps, factory machine computer operator 5/5 bilaterally. IP, quads, DF, EHL, [...] Meron Jerry MD Fellow, Pain Medicine Pager [phone] cc: SANTI FITZGERALD, JACKIE None This encounter lasted 30 minutes with 22 minutes spent in [id number] education and counseling regarding management of chronic [...]
--- OUTSIDE RECORDS SUMMARY | 2024-06-21 20:12 | XMS_ITS | Encounter Summary ---
Author Organization [facility] [place] [address] Care Team Providers Care Right Of Way Worker Name Role Phone Unavailable Primary Care Provider Unavailabl e Reason for Visit * Reason Onset Date Comments Medication Refill 12/14/2011 requesting mor e percocet Encounter Details Date Type Department Care Team (Late st Contact Info) Description 12/14/2011 [place] [phone] Pauly Melo MD Social History Tobacco Use Types Packs/Day [...] EDT Client seen in clinic by this procedure writer yesterday for bilateral drain removal following a brooks patternBBR on 12/09/11. Drains were removed without complication. Breasts were soft, equal in size without sign of seroma ,hematoma or infection. (see 12/13/11 note) Client was prescribed 40 percocet on 12/09/11 and reported she was almost finished taking the percocet. She added she was also taking 800mg of ibuprofen , but inconsistently. This procedure writer noted that client was pale, groggy, [...] removal. An appointment was offered by this procedure writer for pain assessment. Patient declined today [...]
--- OUTSIDE RECORDS SUMMARY | 2024-06-21 20:12 | XMS_ITS | Encounter Summary ---
[place] [address] Care Team Providers Care Control Room Operator Name Role Phone Unavailable Primary Care Provider Unavailabl e Encounter Details Date Type Department Care Team (Late st Contact Info) Description 01/12/2011 [place] [address] Aria Lomas RN Social History Tobacco Use [...]
--- OUTSIDE RECORDS SUMMARY | 2024-06-21 20:12 | XMS_ITS | Encounter Summary ---
Author Organization [facility] [place] [address] Care Team Providers Care Assembler Installer General Name Role Phone Unavailable Primary Care Provider Unavailabl e Reason for Visit * Reason Comments Pain Management Encounter Details Date Type Department Care Team (Late st Contact Info) Description 11/29/2012 1:45 PM EDT [place] [phone] Meron Jerry MD [facility] [place] [address] Myofascial pain (Primary Dx) Discharge Disposition: Home [...] Meron Jerry MD Fellow, Pain Medicine Pager [phone] Trigger Point Injections Date of Service: 11/29/2012 [...] capitus Assessment and Plan: ~ Repeat prn Mreon Jerry MD Fellow, Pain Medicine Pager [phone] documented in this encounter Plan of Treatment [...]
--- OUTSIDE RECORDS SUMMARY | 2024-06-21 20:12 | XMS_ITS | Encounter Summary ---
Author Organization [facility] [place] [address] Care Team Providers Care Case Management Manager Name Role Phone Unavailable Primary Care Provider Unavailabl e Encounter Details Date Type Department Care Team (Late st Contact Info) Description 10/27/2012 Telephone [place] [address] Meron Jerry MD [facility] [place] [address] Social History Tobacco Use Types Packs/Day Years [...]
--- OUTSIDE RECORDS SUMMARY | 2024-06-21 20:12 | XMS_ITS | Encounter Summary ---
[place] [address] Care Team Providers Care Abrasive Grader Helper Name Role Phone Unavailable Primary Care Provider Unavailabl e Reason for Referral * Consultation (Routine) - Closed Specialty Diagnoses / Procedures Referred By Contac t Referred To Contact Pain Management Diagnoses Neck pain on left side Roxie Mcgraw APRN [facility] [place] [address] [facility] [address] [place] [phone] Referral ID Status Reason Start Date Expiration Date V isits Requested Visits Authorized [id number] Closed Consult Only 07/04/2012 12/31/2012 1 1 * Physical Therapy (Routine) - Closed Specialty Diagnoses / Procedures Referred By Contac t Referred To Contact Physical Therapy Diagnoses Neck pain on left side Roxie Mcgraw APRN [facility] [place] [address] [facility] [place] [address] Referral ID Status Reason Start Date Expiration Date V isits Requested Visits Authorized [id number] Closed Evaluate and Treat 07/04/2012 12/31/2012 1 1 * Consultation (Routine) - Closed Specialty Diagnoses / Procedures Referred By Cosmo t Referred To Contact Pain Management Diagnoses Neck pain on left side Roxie Mcgraw, [facility] [place] [address] [facility] [address] [place] [phone] Referral ID Status Reason Start Date Expiration Date V isits Requested Visits Authorized [id number] Closed Consult Only 07/04/2012 12/31/2012 1 1 Reason for Visit * Reason Comments Neck Pain With Headaches Encounter Details Date Type Department Care Team (Late st Contact Info) Description 07/04/2012 2:50 PM EST Office [place] [phone] Roxie Mcgraw, [facility] [place] [address] Neck pain on left side (Primary Dx) [...] this encounter Progress Notes * Roxie Mcgraw, WAREHOUSE FORKLIFT OPERATOR - 07/04/2012 3:47 PM EST Chief complaint: [...] 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 Past medical history: [...] She reports having an x-ray done at [facility] the reports a extra cervical rib [...] function. I talked her about her functional yazidism program I also spoke her about cervical [...] if she is interested in the functional yazidism program or rehabilitation I would recommend a gap assessment at that point time. 35 minutes out of this 45 minute visit was spent in face to face discussion of present symptoms andfuture plan of care. This note was written with voice recognition software. Although I do review all notes for accuracy,there may be inadvertent errors in house worker. Please contact my office at [phone] for any issues related to the text [...]
--- OUTSIDE RECORDS SUMMARY | 2024-06-21 20:12 | XMS_ITS | Encounter Summary ---
[place] [address] Care Team Providers Care Atomic Spectroscopist Name Role Phone Unavailable Primary Care Provider Unavailabl e Reason for Visit * Reason Comments Advice Only pictures for bbr Encounter Details Date Type Department Care Team (Late st Contact Info) Description 09/07/2011 4:30 PM EDT Follow-[place] [phone] Pauly Melo MD Macromastia (Primary Dx); Breast hypertrophy Discharge Disposition: [...] OFFICE NOTE Pauly Melo MD PCP: SAILAJA FITZGREALD APRN COOKING SHOW HOST: As above Reason for office visit: Symptomatic macromastia CC: I was asked by Sailaja Fitzgerald MANAGER CONTROL to re-evaluate Ms. 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 She was providedwith an [facility] brochure and informed consent on breast reduction. [...] surgery is best done at a realistic nursing home stable weight. We talked about the ou [...] revisions for scarring or asymmetry.) Barker or Eloy Pattern Incision: More scarring on breast, but [...] encounter Miscellaneous Notes * Miscellaneous - Wei Radiology Technician - 09/20/2011 12:02 PM EDT documented in this encounter Plan of Treatment Not on file documented as of this encounter Visit Diagnoses Diagnosis Macromastia- Primary Hypertrophy of breast Breast hypertrophy Hypertrophy of breast documented in this encounter
--- OUTSIDE RECORDS SUMMARY | 2024-06-21 20:12 | XMS_ITS | Encounter Summary ---
Author Organization [facility] Address [facility] [place] [address] Care Team Providers Care Roofing Plant Supervisor Name Role Phone Unavailable Primary Care Provider Unavailabl e Encounter Details Date Type Department Care Team (Latest Contact Info) Description 09/29/2012 3:06 PM EDT - 09/29/2012 11:59 PM EDT [place] [address] Rita Garcia MD [facility] [place] [place] [address] Discharge Disposition: Home Social History Tobacco Use [...] Carranza AGE: 51 y.o. : 1960 Female [phone] (home) No relevant phone numbers on file. PCP ENVIRONMENTAL SERVICES ASSOCIATE SANTI FITZGERALD APRN None Allergies Allergen Reactions [...] HR. BEFORE SCHEDULED SCAN AND HAVE A DIGITAL ARCHIVIST AVAILABLE. PT STATED TO LAW PROFESSOR THAT THE SEDATION WAS EFFECTIVE FOR SCAN: Y N COMMENTS: This patient has been informed that they require a bulk tank driver to drive them home after this procedure. In the absence of a bulk tank driver, IR will not be able to [...] Narrative 09/29/2012 6:22 PM EDT Examination MR Cspine WO Eddie Clinical History WORSENING NECK PAIN/ISOLATED [...] Elia Crowe MD - 09/29/2012 Examination MR Cindy NICHOLS Eddie Clinical History WORSENING NECK PAIN/ISOLATED EPISODES [...]
--- OUTSIDE RECORDS SUMMARY | 2024-06-21 20:12 | XMS_ITS | Encounter Summary ---
[place] [address] Care Team Providers Care Lathe Setup Operator Name Role Phone Unavailable Primary Care Provider Unavailabl e Reason for Visit * Reason Comments Cervicalgia Encounter Details Date Type Department Care Team (Latest Contact Info) Description 07/28/2012 2:00 PM EST Procedure visit [place] [address] Nara Chavez MD Cervical spondylosis without myelopathy (Primary Dx) Discharge [...] this encounter Patient Instructions * Patient Instructions* iVcenta Alonzo LPN - 07/28/2012 2:53 PM EST Pain Management Center Discharge Instructions: You were seen by Dr. Nara Chavez MD who performed cervical medial branch [...] Post -Procedure Pain Log Patient: Katheryn Carranza [id number] It is important for you to keep [...] 2. 3. Patient states they have a special education bus driver to transport after procedure? Yes 4. [...] present with theresident for the entire procedure. NARA CHAVEZ MD [facility] documented in this encounter Miscellaneous Notes * [...] - CERVICAL/THORACIC (07/31/2012 9:18 PM EST) Narrative Nara Chavez MD - 07/31/2012 9:18 PM Nara Fallon MD ? 07/31/2012 ??9:18 PM CERVICAL MEDIAL [...] with the resident for the entire procedure. NARA CHAVEZ MD Pain Clinic [facility] Procedure Note Peri Velez - 07/28/2012 3:01 [...] with the resident for the entire procedure. NARA CHAVEZ MD Pain Clinic [facility] Nara Chavez MD PROCEDURE/MINOR SURGICAL ORDERABLES documented in [...]
--- OUTSIDE RECORDS SUMMARY | 2024-06-21 20:12 | XMS_ITS | Encounter Summary ---
Author Organization [facility] [place] [address] Care Team Providers Care Architectural Project Captain Name Role Phone Unavailable Primary Care Provider Unavailabl e Encounter Details Date Type Department Care Team (Late st Contact Info) Description 07/31/2012 Telephone [place] [address] Lucas Bergman MD [facility] [place] [address] Social History Tobacco Use Types Packs/Day Years [...] Center Post-Procedure Phone Note Patient: Katheryn Carranza [id number] Post-procedure phone call from patient to report [...]
--- OUTSIDE RECORDS SUMMARY | 2024-06-21 20:12 | XMS_ITS | Encounter Summary ---
Author Organization [facility] [place] [address] Care Team Providers Care Steward Racetrack Name Role Phone Unavailable Primary Care Provider Unavailabl e Reason for Visit * Reason Comments Follow-up BBR Encounter Details Date Type Department Care Team (Latest Contact Info) Description 12/10/2011 10:00 AM EDT Clinical [place] [address] NURSE, PLASTIC SURGERY Pauly Melo MD Surgery aftercare (Primary Dx) Discharge Disposition: Home [...]
--- OUTSIDE RECORDS SUMMARY | 2024-06-21 20:12 | XMS_ITS | Encounter Summary ---
[place] [address] Care Team Providers Care Counseling Center Director Name Role Phone Unavailable Primary Care Provider Unavailabl e Encounter Details Date Type Department Care Team (Late st Contact Info) Description 12/09/2011 3:45 PM EDT Anesthesia [place] [address] Jessica Bryant MD Gallagher, John D, MD Anesthesia Record Procedure Summary Procedure Name Responsible [...] by Emani Kimball RN 12/09/11 2200 by uYe Shell RN Incision breast; 02/01/22 (LD A [...] risks discussed with patient. Plan discussed with MEDICAL RECEPTIONIST MEDICAL ASSISTANT. documented in this encounter Miscellaneous Notes * [...]
--- OUTSIDE RECORDS SUMMARY | 2024-06-21 20:12 | XMS_ITS | Encounter Summary ---
[place] [address] Care Team Providers Care Saddle Cutter Name Role Phone Unavailable Primary Care Provider Unavailabl e Reason for Visit * Reason Comments Advice Only bbr discussion Encounter Details Date Type Department Care Team (Latest Contact Info) Description 04/07/2011 1:00 PM EDT Clinical [place] [phone] NURSE, PLASTIC SURGERY Surgery aftercare (Primary Dx) [...] encounter Miscellaneous Notes * Miscellaneous - Wei, Sap Business Intelligence Consultant - 07/22/2011 5:23 PM EST * Miscellaneous - Wei, Sap Business Intelligence Consultant - 04/27/2011 10:18 AM EST documented in this encounter Plan of Treatment Not on file documented as of this encounter Visit Diagnoses Diagnosis Surgery aftercare- Primary Other specified aftercare following surgery documented in this encounter
--- OUTSIDE RECORDS SUMMARY | 2024-06-21 20:12 | XMS_ITS | Encounter Summary ---
[place] [address] Care Team Providers Care Transportation Economics Teacher Name Role Phone Unavailable Primary Care Provider Unavailabl e Encounter Details Date Type Department Care Team (Late st Contact Info) Description 07/03/2012 [place] [address] Maria Peoples, ARLETTE Social History Tobacco Use Types Packs/Day Years [...]
--- OUTSIDE RECORDS SUMMARY | 2024-06-21 20:12 | XMS_ITS | Encounter Summary ---
[place] [address] Care Team Providers Care Electronic Court Recorder Name Role Phone Unavailable Primary Care Provider Unavailabl e Encounter Details Date Type Department Care Team (Latest Contact Info) Description 12/09/2011 1:08 PM EDT - 12/09/2011 10:02 PM EDT Hospital En[place] [phone] Pauly Sommers MD Discharge Disposition: Home Social History Tobacco [...] this encounter Discharge Instructions * Discharge Instructions* White Post, Al L, RN - 12/09/2011 6:34 PM EDT Images [...] Tuesday 8 am to 5 pm Call [phone] On weekends or after hours: Call [phone] and ask the matcher operator to page the Plastic Surgeon wallpaper consultant. Prescription Line: Tuesday through Tuesday 8 am to 4 pm Call [phone] Narcotic renewals will not be honored after [...] narcotics charted. aware. Will call report to PIPELINE ENGINEER for pt transfer. Will continue to monitor. [...] ml 1% lidocaine+ 1 ml epinephrine injection alf 1:1000 added to 1000 IV NACL per order the total amt used of anesthetic infiltrate solution was 1000 ml. documented in this encounter Miscellaneous Notes * Miscellaneous - Provider, Scanning - 12/12/2011 11:49 AM EDT * Miscellaneous - Provider, Scanning - 12/12/2011 11:48 AM EDT * Op Note - Pauly Sommers MD - 12/09/2011 7:07 PM EDT [facility] Operative Note Patient Name: Valeria March : [id number] MR#: [id number] Case Date: 12/09/2011 Surgeon: Surgeon(s) and Role: [...] Operative Note Patient Name: Valeria March : [id number] MR#: [id number] Case Date: 12/09/2011 Surgeon: Surgeon(s) and Role: [...] 7:10 PM EDT) Surgical Pathology Report ? [facility] ? Provider: ?? PAULY SOMMERS ?Pt. Name: ?? VALERIA MARCH ? Acc #: ?[id number] ?Pt. ? Col Date: ?? 12/09/2011 ?/Sex: [...] ? ---Clinical Information--- ? Specimen Submitted: ? [facility] ? Provider: ?? PAULY SOMMERS ?Pt. Name: ?? VALERIA MARCH ? Acc #: ?[id number] ?Pt. ? Col Date: ?? 12/09/2011 ?/Sex: ?1960,(51 years),Female ? Rec Date: ?? 12/09/2011 ?LOC: ?SDP ? SURGICAL PATHOLOGY ? A - Right breast tissue ? B - Left breast tissue ? Clinical History/Diagnosis : ? Breast hypertrophy [facility] 12/09/2011 7:10 PM EDT Pauly Sommers MD PATHOLOGY/CYTOLOGY O RDERABLES [facility] * Specimen to Pathology (surgical or derm) (12/09/2011 6:10 PM EDT) AP Specimen 12/09/2011 6:10 PM EDT 12/09/2011 6:10 PM EDT Narrative PERCY ESPANA - 12/09/2011 6:10 PM EDT Specimen requisition ordered. ??Separate Pathology report to follow Pauly Sommers MD PATHOLOGY/CYTOLOGY O LISA Performing Organization Address [facility] Co de Phone Number PERCY ESPANA * Specimen to Pathology (surgical or derm) (12/09/2011 6:10 PM EDT) AP Specimen 12/09/2011 6:10 PM EDT 12/09/2011 6:10 PM EDT Narrative PERCY ESPANA - 12/09/2011 6:10 PM EDT Specimen requisition ordered. ??Separate Pathology report to follow Pauly Sommers MD PATHOLOGY/CYTOLOGY O LISA Performing Organization Address [facility] de Phone Number PERCY ESPANA documented in [...] 1936 (New Bag - Prov ider: Al Quezada, OLIVIA) PRN Medication Order 12/07/2011 12/08/2011 12/09/2011 epiNEPHrine (PF) injection Soln (CANCELED) ONCE PRN, Starting on Teresa 12/09/11 at 1755, Until Tue12/10/11 at 0003, Intra-Operative (Intra-Procedure), Routine 1754 (Given - Provid er: Pauly Sommers MD [...] EVERY 5 MIN PRN, Starting on Teresa 7 at 1833, Until Tue12/10/11 at 0003, Pain, [...] injection (CANCELED) ONCE PRN, Starting on Teresa 7 at 1751, Until Tue12/10/11 at 0003, Intra-Operative [...]
--- OUTSIDE RECORDS SUMMARY | 2024-06-21 20:12 | XMS_ITS | Encounter Summary ---
Author Organization [facility] [place] [address] Care Team Providers Care Hvac Service Tech Name Role Phone Unavailable Primary Care Provider Unavailabl e Encounter Details Date Type Department Care Team (Late st Contact Info) Description 07/28/2012 Orders [place] [address] Nara Chavez MD Social History Tobacco Use Types Packs/Day [...] is a non-reportable exam. Nara Chavez MD IMG FILM LIBRARY ORDERABLES RAD [address] [facility] [place] [address] documented in this encounter Visit Diagnoses Not on filedocumented in this encounter
--- OUTSIDE RECORDS SUMMARY | 2024-06-21 20:12 | XMS_ITS | Encounter Summary ---
Author Organization [facility] [place] [address] Care Team Providers Care Final Rail Cutter Name Role Phone Unavailable Primary Care Provider Unavailabl e Reason for Visit * Reason Comments Pain Management Cervicalgia Back Pain Encounter Details Date Type Department Care Team (Late st Contact Info) Description 07/09/2014 1:15 PM EST Follow-[place] [phone] Rita Garcia MD [address] [place] [address] Rita Garcia MD [facility] [place] [address] Cervical spondylosis without myelopathy; Cervical disc displacement; [...] MAMMOPLASTY, EVA performed by DEMETRA SOMMERS at [facility] MAIN OR ??? Hysterectomy ALLERGIES: Allergenic extracts [...] 5/5, triceps 5/5, abduction 5/5, adduction 5/5 hand ii cutter 5/5, wrist extension 5/5, and wrist flexion [...] Marrero MD - 07/17/2014 EXAMINATION: MR White SIMONE Morgan CLINICAL HISTORY: neck pain cervical radiculitis increasing [...]
--- OUTSIDE RECORDS SUMMARY | 2024-06-21 20:12 | XMS_ITS | Encounter Summary ---
Author Organization [facility] [place] [address] Care Team Providers Care Cobbler Upper Name Role Phone Unavailable Primary Care Provider Unavailabl e Encounter Details Date Type Department Care Team (Late st Contact Info) Description 11/13/2012 Telephone [place] [address] Meron Jerry MD [facility] [place] [address] Social History Tobacco Use Types Packs/Day Years [...] month. Patient was transferred to the scheduling financial secretary. Ava Callaway documented in this encounter Plan of Treatment Not on file documented as of this encounter Visit Diagnoses Not on filedocumented in this encounter
--- OUTSIDE RECORDS SUMMARY | 2024-06-21 20:12 | XMS_ITS | Encounter Summary ---
Author Organization [facility] [place] [address] Care Team Providers Care Electric Car Operator Name Role Phone Unavailable Primary Care Provider Unavailabl e Encounter Details Date Type Department Care Team (Late st Contact Info) Description 09/08/2012 Orders [place] [address] Lucas Bergman MD [facility] [place] [address] Social History Tobacco Use Types Packs/Day Years [...] is a non-reportable exam. Lucas Bergman MD [facility] FILM LIBRARY ORD ERABLES [facility] [address] [place] [place] [address] documented in this encounter Visit Diagnoses Not on filedocumented in this encounter
== END 2024-06-21 20:05 | disposition home or self-care (01) ==
LOC: NCHCN 20:04
PROVIDERS: PCP Nurse Practitioner Family; Visit Provider Nurse Practitioner Family
DX: Z00.00 Encounter for general adult medical examination without abnormal findings (principal)
CPT/HCPCS: 80053; 83036; 85025

== ENCOUNTER 2024-07-02 16:02 | Outpatient (REF) | payer BC, SELFPAY ==
[2024-07-02 19:12] LABS: Anion Gap 7.1 mmol/L (3-11); BUN 17 mg/dL (7-18); CO2 29.9 mmol/L (21.0-32.0); Calcium 10.2 mg/dL (8.5-10.1); Chloride 105 mmol/L (98-107); Glucose 132 mg/dL (74-106); Sodium 142 mmol/L (136-145)
[2024-07-02 19:17] LABS: Hemoglobin A1C 6.3 % (<5.7)
== END 2024-07-02 16:03 | disposition home or self-care (01) ==
LOC: NCHCN 16:02
PROVIDERS: PCP Nurse Practitioner Family; Visit Provider Nurse Practitioner Family
DX: R73.03 Prediabetes (principal); R79.89 Other specified abnormal findings of blood chemistry
CPT/HCPCS: 80048; 83036

== ENCOUNTER 2025-02-22 17:15 | Outpatient (REF) | payer BC, SELFPAY ==
[2025-02-22 19:28] LABS: Anion Gap 11.6 mmol/L (3-11); BUN 18 mg/dL (7-18); CO2 25.4 mmol/L (21.0-32.0); Calcium 9.6 mg/dL (8.5-10.1); Chloride 102 mmol/L (98-107); Estimated GFR 62.91 (mL/min/1.73m2); Glucose 147 mg/dL (74-106); Potassium 4.6 mmol/L (3.5-5.1); Sodium 139 mmol/L (136-145)
[2025-02-22 19:45] LABS: Hemoglobin A1C 6.2 % (<5.7)
[2025-02-24 08:40] LABS: HIV-1/2 Ag & Ab Screen Negative (Negative)
[2025-02-25 13:00] LABS: Hepatitis C Ab w Rflx HCV PCR Negative (Negative)
== END 2025-02-22 17:16 | disposition home or self-care (01) ==
LOC: NCHCN 17:15
PROVIDERS: PCP Nurse Practitioner Family; Visit Provider Nurse Practitioner Family
DX: Z00.00 Encounter for general adult medical examination without abnormal findings (principal)
CPT/HCPCS: 80048; 86803; 87389; 83036